=== PATIENT | male | born 1960 | race Caucasian/White ===

== ENCOUNTER 2020-07-15 11:03 | Emergency (ER) | payer OTHER, SELFPAY ==
[2020-07-15 11:11] VITALS: BP 132/81; BP 149/55; PULSE 75; PULSE 76; RESP 16; TEMP 36.8; O2SAT 97; O2SAT 98; BMI 37.5
--- NOTE | 2020-07-15 11:23 | ECG_ITS ---
Test Reason : DIZZINESS Blood Pressure : / mmHG Vent. Rate : 066 BPM Atrial Rate : 066 BPM P-R Int : 196 ms QRS Dur : 080 ms QT Int : 380 ms P-R-T Axes : 004 -07 034 degrees QTc Int : 398 ms Normal sinus rhythm Low voltage QRS Otherwise normal ECG When compared with ECG of 30-MAY-2018 15:20, Vent. rate has decreased BY 32 BPM Referred By: Sarah Davila Electronically Signed By:JOVITA AMEZQUITA MD
--- NOTE | 2020-07-15 11:23 | XR_ITS ---
EXAMINATION: XR CHEST CLINICAL INFORMATION: Numbness, tingling COMPARISON: Chest radiographs 05/30/2018, 01/10/2011 TECHNIQUE: 2 frontal views and a lateral projection of the chest are obtained. FINDINGS: The lungs are clear. There is no airspace consolidation or effusion. The heart is normal in size and the hilar contours are normal. The mediastinal contours and bony structures are stable. XR/XR chest 2V IMPRESSION: Unremarkable examination.
--- NOTE | 2020-07-15 11:24 | CT_ITS ---
EXAMINATION: CT HEAD WITHOUT CONTRAST CLINICAL INFORMATION: Tingling COMPARISON: Previous head CT February 2011 TECHNIQUE: Contiguous axial imaging was performed from the skull base to vertex without intravenous administration of contrast. This CT examination was performed using dose optimization techniques as appropriate, variously including the following: *Automated exposure control *Adjustment of mA and/or kV according to patient size (this includes techniques or standardized protocols for targeted exams where dose is matched to indication/reason for exam; i.e. extremities or head) *Use of iterative reconstruction technique DLP: 908 mGy-cm FINDINGS: There is no evidence of acute intracranial hemorrhage or territorial infarction. No abnormal mass effect or midline shift is seen. Jose to white matter differentiation is well preserved. No extra-axial fluid collections are identified. The ventricles are normal in size. There is no abnormal attenuation within the brain parenchyma. The osseous structures and soft tissues are normal. The mastoid air cells and visualized portions of the paranasal sinuses are well aerated. CT/CT head/brain wo con IMPRESSION: Unremarkable exam.
--- NOTE | 2020-07-15 11:33 | PC.NURSE ---
PT AMBULATING TO CT SCAN W SLOW, STEADY GAIT.
--- NOTE | 2020-07-15 11:36 | ED_ITS ---
HPI - General Adult General Chief complaint: Neck Pain/Injury Stated complaint: NUMB/TINGLING LOW EXT,KNOT R SHOULDER 4 DAYS AGO Time Seen by Provider: 07/15/20 11:23 Source: patient and EMS Mode of arrival: EMS Limitations: no limitations History of Present Illness HPI narrative: 60-year-old male with a past medical history of high cholesterol, hypertension, insulin-dependent diabetes, chronic neck pain, perip heral neuropathy on gabapentin here with complaints of numbness and tingling. The patient tells me for the last 4 days he has had increasing tingling his lower extremities and occasionally in his upper extremities as well. It is intermittent and it is improved with taking his home gabapentin 600 mg. he tells me he has also been feeling off balance for the last 4 days. Denies any weakness, slurred speech, headache, dizziness. The patient tells me today he was changing a shower curtain and had his arms up over his head felt some tingling in his hands and hands were cramping and he felt like he might fall. Describes as tingling over bilateral top of feet and in tips of fingers. Blood sugars have been running high 200's which is higher then normal. No chest pain, shortness of breath, cough. Fevers or chills. Also c/o of some discomfort to his right neck. No injury or trauma. Does tell me he has intermittent pain for a long time. Onset (ago): day(s) Radiation: non-radiation Severity: mild Relieving factors: none Exacerbating factors: none Associated symptoms: denies other symptoms Related Data Previous Rx's Medication Instructions Recorded cyclobenzaprine 10 mg PO TID PRN #10 tab 07/15/20 Allergies Allergy/AdvReac Type Severity Reaction Status Date / Time No Known Allergies Allergy Verified 07/15/20 11:10 [No Known Allergies*] Review of Systems Review of Systems: Yes all other systems are reviewed and are negative Constitutional: Constitutional: Reports no additional constitutional complaints, Denies body ache(s), Denies chills, Denies fever(s), Denies headache(s) and Denies weakness Eyes: Eyes: Reports no additional eye complaints and Denies change in vision ENT: Reports system reviewed and no additional complaints, except as documented, Denies dizziness, Denies headache(s), Denies nasal congestion, Denies nasal discharge and Denies neck pain Cardiovascular: Cardiovascular: Reports no additional cardiovascular complaints, Denies chest pain, Denies leg edema and Denies dyspnea Respiratory: Respiratory: Reports no additional respiratory complaints, Denies cough and Denies dyspnea Gastrointestinal: Gastrointestinal: Reports no additional gastrointestinal complaints, Denies abdominal pain, Denies diarrhea, Denies nausea and Denies vomiting Genitourinary: Genitourinary: Denies urinary incontinence Musculoskeletal: Musculoskeletal: Reports no additional musculoskeletal complaints, Denies back pain, Denies arthralgias, Denies joint swelling, Denies neck pain, Denies numbness and Reports tingling Integumentary/Breasts: Skin/Breast: Reports system reviewed and no additional complaints, except as docu and Denies rash Neurologic: Reports system reviewed and no additional complaints, except as documented, Denies Abnormal speech present, Denies dizziness, Denies headache(s), Denies numbness, Reports tingling and Denies weakness Comments: unsteady gait PMFSH Past Medical History Attestation statement: The following information was validated with the patient. Source: old records reviewed and nursing notes reviewed Medical History Hyperlipidemia Hypertension IDDM (insulin dependent diabetes mellitus) Neck pain Peripheral neuropathy Psychiatric diagnosis Social History Social History Alcohol intake: never Smoking Status: Never smoker Use of substances other than those prescribed or required for medical reasons: No Advance Directives: No Advance Directives Information Provided: No Physical Exam Vital Signs: Vital Signs: Last Vital Signs Temp 98.2 F 07/15/20 11:11 Pulse 64 07/15/20 14:06 Resp 16 07/15/20 14:06 BP 124/74 07/15/20 14:06 Pulse Ox 96 07/15/20 14:06 Body Mass Index 37.5 Const: General: cooperative, healthy appearing, comfortable and no acute distress Orientation/consciousness: patient oriented x3 Limitations: no limitations HENMT: Head: Yes normal to inspection Ears: hearing grossly normal bilaterally General nose exam: Normal external nose present Face and sinus: Yes normal facial exam Mouth: Normal oral and palatal mucosa present Throat: Yes posterior oropharynx normal Eyes: General: appearance normal, both eyes and all related structures Pupils: Equal, round and reactive pupils present Neck: Other: to the right trapezius there is a palpable muscle spasm. There is moderate tenderness. There is no midline cervical tenderness step-offs or deformities. There is no pain over the lateral neck. Full range of motion Neck: Yes normal visual inspection Chest: Chest palpation & inspection: normal inspection of the chest Resp: Effort & Inspection: normal respiratory effort Auscultation: clear to auscultation bilaterally Cardio: Rate: regular rate Rhythm: regular rhythm Peripheral pulses: Peripheral pulses 2+ throughout GI: Inspection: Yes normal to inspection Palpation (GI): Soft to palpation and nontender Auscultation: normal bowel sounds Back/Spine/Pelvis: Thoracic/Lumbar Spine: thoracic and lumbar spine normal to inspection Skin: General skin exam: no rashes or lesions noted Neuro: General: patient oriented x3, Normal light touch and pain sensation, no focal motor deficits and normal sensation to monofilament Cranial nerves: Yes Equal, round and reactive pupils present Cognition (Neuro): normal cognition Speech: No Abnormal speech present Gait exam (Neuro): Normal gait present Motor exam (neuro): 5/5 motor strength present throughout Sensory Exam: Normal double simultaneous stimulation for sensation Deep tendon reflexes (DTR's): Right patellar reflex intensity grade: 2+, Left patellar reflex intensity grade: 2+, Right ankle reflex intensity grade: 2+ and Left ankle reflex intensity grade: 2+ Coordination: [id number] test normal, [id number] test normal and tandem gait normal Extrem: General: Yes normal to inspection NIH Stroke Scale Internal: Initial- Upon Arrival Level of Consciousness: Alert Level of Consciousness Questions: Answers both questions correctly Level of Consciousness Commands: Performs both tasks correctly Best Gaze: Normal Visual: No visual loss Facial Palsy: Normal Motor Arm (Right): No drift Motor Arm (Left): No drift Motor Leg (Right): No drift Motor Leg (Left): No drift Limb Ataxia: Absent Sensory: Normal Best Language: No aphasia Dysarthia: Normal Extinction and Inattention: No abnormality Score: 0 Course Course Course Narrative: 60-year-old male here with complaints of some tingling in in the top of his feet and in his fingertips the last 4 days. Has had some component of neuropathy in the past secondary to his diabetes and takes 600 mg of gabapentin nightly. Tells me this does help his pain but he feels like it is no longer helping. He is also complaining of feeling unsteady on his feet and is unsure if this is related to his tingling that he feels in his seat. The patient denies any weakness, slurred speech, headache, dizziness. His neurological exam is intact. He is complaining of some right-sided trapezius tenderness and has a palpable muscle spasm on exam and is likely more musculoskeletal. No focal neurological deficit. Stable vital signs. Will check labs, EKG, imaging of head and reassess. 1357- labs show a mildly low magnesium otherwise unremarkable. Patient does have some mild hyperglycemia with no evidence of DKA. His imaging is all unremarkable. His symptoms are likely related progressive neuropathy secondary to his underlying uncontrolled diabetes. Also some MS pain in his right trapezius. He is on gabapentin but only takes nightly. We discussed him following up with his primary care doctor and they may change or adjust his dose of gabapentin. Discussed some heat, OTC meds for his right trapezius discomfort and some p.r.n. muscle relaxants. Reviewed worrisome signs and symptoms and when to return to the emergency department. Comfortable discharge home. Medical Decision Making MDM Narrative Medical decision making narrative: Electrolyte abnormality, anemia, hyperglycemia CVA versus lesion, orthostatic hypotension, acs Magnesium mildly low. replaced IV. All other electrolytes unremarkable Peyton likely abnormality. CBC unremarkable selectively anemia as cause. patient is mildly hyperglycemic which may be contributing to his neuropathy. Less likely CVA or lesion with unremarkable CT and normal neurological exam. Less likely orthostatic hypotension with negative orthostatics. Less likely ACS with negative troponin and unremarkable EKG. Less likely GB with atypical presentation (only feet/tips of fingers, not ascending), normal neurological exam and reflexes, no recent illness. Lab Data Result diagrams: 07/15/20 11:49 07/15/20 11:49 Labs: Lab Results 07/15/20 07/15/20 07/15/20 Range/Units 11:49 11:49 11:49 WBC 6.9 (4.8-10.8) X10*3/uL RBC 4.19 L (4.60-5.80) X10*6/uL Hgb 14.4 (14.0-18.0) g/dl Hct 39.3 L (42-52) % MCV 93.8 (80-98) fL MCH 34.4 H (27.0-33.0) pg MCHC 36.6 H (31.0-36.0) g/dl RDW 11.3 (11.0-16.0) % Plt Count 171 (160-400) X10*3/uL MPV 10.8 (9.4-12.4) fL Immature Gran % (Auto) 0.3 (0.0-0.4) % Neut % (Auto) 53.0 (45-73) % Lymph % (Auto) 34.6 (20-40) % [place] % (Auto) 9.5 (2-11) % Eos % (Auto) 1.9 (0-4) % Baso % (Auto) 0.7 (0-2) % Lymph # (Auto) 2.4 (1.2-4.9) X10*3/uL [place] # (Auto) 0.7 (0.1-1.2) X10*3/uL Eos # (Auto) 0.1 (0.0-0.4) X10*3/uL Baso # (Auto) 0.1 (0.0-0.2) X10*3/uL Abs Immat Gran (auto) 0.02 (0.00-0.03) X10*3/uL Absolute Neuts (auto) 3.7 (2.0-8.3) X10*3/uL Absolute Nucleated RBC 0.000 (0.0-0.012) X10*3/uL Nucleated RBC % (auto) 0.0 (0.0-0.2) /100WBC PT 12.4 (10.8-13.0) SEC INR 1.0 (0.9-1.1) Sodium 136 (135-145) mmol/L Potassium 5.2 H (3.3-5.1) mmol/l Chloride 102 (96-108) mmol/L Carbon Dioxide 25 (22-29) mmol/L Anion Gap 14 (12-20) BUN 22 H (9-16) mg/dL Creatinine 1.26 (0.5-1.4) mg/dL Estim Creat Clear Calc 89.2 Estimated GFR 58 Random Glucose 226 H (60-115) mg/dL Calcium 9.2 (8.4-10.2) mg/dL Magnesium 1.5 L (1.6-2.6) mg/dL Total Bilirubin 0.7 (0.0-1.0) mg/dL Direct Bilirubin 0.4 (0.0-0.5) mg/dL AST 24 (5-37) U/L ALT 37 (0-40) U/L Alkaline Phosphatase 93 (39-117) U/L Troponin I High Sens (<3.5-35.0) ng/L Total Protein 7.0 (6.5-8.0) g/dL Albumin 4.2 (3.5-5.0) g/dL 07/15/20 Range/Units 11:49 WBC (4.8-10.8) X10*3/uL RBC (4.60-5.80) X10*6/uL Hgb (14.0-18.0) g/dl Hct (42-52) % MCV (80-98) fL MCH (27.0-33.0) pg MCHC (31.0-36.0) g/dl RDW (11.0-16.0) % Plt Count (160-400) X10*3/uL MPV (9.4-12.4) fL Immature Gran % (Auto) (0.0-0.4) % Neut % (Auto) (45-73) % Lymph % (Auto) (20-40) % [place] % (Auto) (2-11) % Eos % (Auto) (0-4) % Baso % (Auto) (0-2) % Lymph # (Auto) (1.2-4.9) X10*3/uL [place] # (Auto) (0.1-1.2) X10*3/uL Eos # (Auto) (0.0-0.4) X10*3/uL Baso # (Auto) (0.0-0.2) X10*3/uL Abs Immat Gran (auto) (0.00-0.03) X10*3/uL Absolute Neuts (auto) (2.0-8.3) X10*3/uL Absolute Nucleated RBC (0.0-0.012) X10*3/uL Nucleated RBC % (auto) (0.0-0.2) /100WBC PT (10.8-13.0) SEC INR (0.9-1.1) Sodium (135-145) mmol/L Potassium (3.3-5.1) mmol/l Chloride (96-108) mmol/L Carbon Dioxide (22-29) mmol/L Anion Gap (12-20) BUN (9-16) mg/dL Creatinine (0.5-1.4) mg/dL Estim Creat Clear Calc Estimated GFR Random Glucose (60-115) mg/dL Calcium (8.4-10.2) mg/dL Magnesium (1.6-2.6) mg/dL Total Bilirubin (0.0-1.0) mg/dL Direct Bilirubin (0.0-0.5) mg/dL AST (5-37) U/L ALT (0-40) U/L Alkaline Phosphatase (39-117) U/L Troponin I High Sens < 3.5 (<3.5-35.0) ng/L Total Protein (6.5-8.0) g/dL Albumin (3.5-5.0) g/dL Imaging Data CT scan - head: Attestation: I personally reviewed and interpreted this imaging study as follows: Radiologist's impression: EXAMINATION: CT HEAD WITHOUT CONTRAST CLINICAL INFORMATION: Tingling COMPARISON: Previous head CT February 2011 TECHNIQUE: Contiguous axial imaging was performed from the skull base to vertex without intravenous administration of contrast. This CT examination was performed using dose optimization techniques as appropriate, variously including the following: *Automated exposure control *Adjustment of mA and/or kV according to patient size (this includes techniques or standardized protocols for targeted exams where dose is matched to indication/reason for exam; i.e. extremities or head) *Use of iterative reconstruction technique DLP: 908 mGy-cm FINDINGS: There is no evidence of acute intracranial hemorrhage or territorial infarction. No abnormal mass effect or midline shift is seen. Jose to white matter differentiation is well preserved. No extra-axial fluid collections are identified. The ventricles are normal in size. There is no abnormal attenuation within the brain parenchyma. The osseous structures and soft tissues are normal. The mastoid air cells and visualized portions of the paranasal sinuses are well aerated. CT/CT head/brain wo con IMPRESSION: Unremarkable exam. Chest x-ray: Attestation: I personally reviewed and interpreted this imaging study as follows: Radiologist's impression: EXAMINATION: XR CHEST CLINICAL INFORMATION: Numbness, tingling COMPARISON: Chest radiographs 05/30/2018, 01/10/2011 TECHNIQUE: 2 frontal views and a lateral projection of the chest are obtained. FINDINGS: The lungs are clear. There is no airspace consolidation or effusion. The heart is normal in size and the hilar contours are normal. The mediastinal contours and bony structures are stable. XR/XR chest 2V IMPRESSION: Unremarkable examination. ECG Data Attestation: I personally reviewed and interpreted this ECG as follows: Interpretation: NSR rate 66, normal pr, normal qrs, normal QT, no ST changes Discharge Plan Discharge Clinical Impression: Muscle spasm, Neuropathy, Chronic hyperglycemia, Hypomagnesemia Patient Disposition: Home, Self-Care Instructions: Peripheral Neuropathy (ED), Hypomagnesemia (ED), Muscle Spasm (ED), Diabetic Hyperglycemia (ED) Additional Instructions: Call your PCP tomorrow. They may need to adjust your gabapentin dose apply heat to the right neck Gentle massage Take the Flexeril as needed Prescriptions: New cyclobenzaprine 10 mg tablet 10 mg PO TID PRN (Reason: muscle spasm) Qty: 10 RF: 0 Referrals: Virginie Liao MD [Primary Care Provider] - 2 days Interventions: ED Discharge Assessment Last Done: 07/15/20 14:20 Discharge Date/Time: 07/15/20 14:21
[2020-07-15 11:55] LABS: MANUAL DIFF FLAG NO
[2020-07-15 11:56] LABS: Basophils Absolute Auto 0.1 X10*3/uL (0.0-0.2); Basophils Percent Auto 0.7 % (0-2); Eosinophils Absolute Auto 0.1 X10*3/uL (0.0-0.4); Eosinophils Percent Auto 1.9 % (0-4); Hematocrit 39.3 % (42-52); Hemoglobin 14.4 g/dl (14.0-18.0); Imm Gran Abs Auto 0.02 X10*3/uL (0.00-0.03); Imm Gran Pct Auto 0.3 % (0.0-0.4); Lymphocytes Absolute Auto 2.4 X10*3/uL (1.2-4.9); Lymphocytes Percent Auto 34.6 % (20-40); Mean Corpuscular HGB Conc 36.6 g/dl (31.0-36.0); Mean Corpuscular Hemoglobin 34.4 pg (27.0-33.0); Mean Corpuscular Volume 93.8 fL (80-98); Mean Platelet Volume 10.8 fL (9.4-12.4); Monocytes Absolute Auto 0.7 X10*3/uL (0.1-1.2); Monocytes Percent Auto 9.5 % (2-11); Neutrophils Absolute Auto 3.7 X10*3/uL (2.0-8.3); Platelet Count 171 X10*3/uL (160-400); Red Blood Count 4.19 X10*6/uL (4.60-5.80); Red Cell Distribution Width 11.3 % (11.0-16.0); White Blood Count 6.9 X10*3/uL (4.8-10.8)
[2020-07-15 12:00] LABS: Prothrombin Time 12.4 SEC (10.8-13.0)
[2020-07-15 12:03] VITALS: BP 137/70; PULSE 68
[2020-07-15 12:05] VITALS: BP 119/71; PULSE 79
[2020-07-15 12:06] VITALS: BP 122/64; PULSE 83
--- NOTE | 2020-07-15 12:14 | PC.NURSE ---
taken to xray via stretcher
[2020-07-15 12:19] LABS: Alanine Aminotransferase 37 U/L (0-40); Albumin Level 4.2 g/dL (3.5-5.0); Alkaline Phosphatase 93 U/L (39-117); Anion Gap 14 (12-20); Aspartate Amino Transferase 24 U/L (5-37); Bilirubin Direct 0.4 mg/dL (0.0-0.5); Bilirubin Total 0.7 mg/dL (0.0-1.0); Blood Urea Nitrogen 22 mg/dL (9-16); Calcium 9.2 mg/dL (8.4-10.2); Carbon Dioxide 25 mmol/L (22-29); Chloride 102 mmol/L (96-108); Creatinine Clr Calc Pharmacy 89.2; Estimated Glomerular Filt Rate 58; Glucose Random 226 mg/dL (60-115); Magnesium 1.5 mg/dL (1.6-2.6); Potassium 5.2 mmol/l (3.3-5.1); Sodium 136 mmol/L (135-145)
[2020-07-15 12:25] LABS: Troponin-I High Sensitivity < 3.5 ng/L (<3.5-35.0)
[2020-07-15] MEDS: Magnesium Sulfate/D5W 1 GM/100 ML PIGGYBACK IV (13:31)
--- NOTE | 2020-07-15 13:42 | PC.NURSE ---
pt requested something to eat states that he has not eaten since this am. pt given diet matheus kalpesh and jacqueline crackers. pierce (anders) at bedside, pt aware of plan of care for d/c home.
[2020-07-15 14:03] VITALS: BP 127/74; PULSE 64
[2020-07-15] MEDS: Aspirin 81 MG TAB.CHEW PO (14:03)
[2020-07-15] MEDS: Cholecalciferol (Vitamin D3) 10 MCG TABLET PO (14:03)
[2020-07-15] MEDS: metFORMIN HCl 1,000 MG TABLET 1000 MG PO (14:03)
[2020-07-15] MEDS: lisinopriL 5 MG TABLET PO (14:03)
[2020-07-15 14:06] VITALS: BP 124/74; PULSE 64; RESP 16; O2SAT 96
== END 2020-07-15 14:21 | disposition home or self-care (01) ==
PROVIDERS: Nurse Practitioner Family; Emergency Provider Emergency Medicine Emergency Medical Services; PCP Internal Medicine
DX: E11.40 Type 2 diabetes mellitus with diabetic neuropathy, unspecified (principal); E11.65 Type 2 diabetes mellitus with hyperglycemia; E83.42 Hypomagnesemia; M62.838 Other muscle spasm; I10 Essential (primary) hypertension; Z79.899 Other long term (current) drug therapy
CPT/HCPCS: 36415; 70450; 71046; 80048; 80076; 83735; 84484; 85025; 85610; 93005; 96365; 99284; J3475

== ENCOUNTER 2020-09-03 15:28 | Emergency (ER) | payer OTHER, SELFPAY | END 2020-09-03 17:05 | disposition left against medical advice (07) | PROVIDERS: Emergency Provider Internal Medicine; PCP Internal Medicine | DX: L08.9 Local infection of the skin and subcutaneous tissue, unspecified (principal) | CPT/HCPCS: 99281 ==

== ENCOUNTER 2020-09-04 11:22 | Inpatient (IN) | payer OTHER, SELFPAY ==
[2020-09-04 11:27] VITALS: BP 143/74; PULSE 91; RESP 18; TEMP 37; O2SAT 97; BMI 37.2
--- NOTE | 2020-09-04 11:43 | XR_ITS ---
EXAMINATION: XR FOOT, RIGHT CLINICAL INFORMATION: Right great toe infection. COMPARISON: July 28, 2018 and May 30, 2018 TECHNIQUE: AP, lateral, and oblique views of the right foot. FINDINGS: There is no evidence of acute fracture or dislocation of the right foot. Soft tissue swelling is seen about the first toe without gas within the soft tissues. No adjacent erosive changes are seen within the bone. Joint spaces are maintained. Prominent vascular calcifications are seen. Plantar calcaneal spur is present as well as some calcification of the plantar aponeurosis. There appears to be soft tissue ulceration about the medial aspect of the first proximal phalanx. XR/XR foot RT min 3V IMPRESSION: Soft tissue swelling without definite erosive change or gas within the soft tissues.
--- NOTE | 2020-09-04 14:11 | ECG_ITS ---
Test Reason : SOB Blood Pressure : / mmHG Vent. Rate : 097 BPM Atrial Rate : 098 BPM P-R Int : 206 ms QRS Dur : 078 ms QT Int : 326 ms P-R-T Axes : 054 -13 038 degrees QTc Int : 414 ms Poor data quality in lead V1 Normal sinus rhythm Otherwise normal ECG When compared with ECG of 15-JUL-2020 12:02, No significant changes seen Referred By: Jeri Cervantes Electronically Signed By:BAILEY BRENNAN MD
--- NOTE | 2020-09-04 14:11 | ED.SKABFB ---
HPI - Skin/Abscess/Foreign Bdy General Chief complaint: Skin/Abscess/Foreign Body <GABINO Baird - Last Filed: 09/04/20 17:40> Stated complaint: infection? rt toe <GABINO Baird - Last Filed: 09/04/20 17:40> Time Seen by Provider: 09/04/20 11:42 <GABINO Baird - Last Filed: 09/04/20 17:40> Source: patient <GABINO Baird - Last Filed: 09/04/20 17:40> Mode of arrival: ambulatory <GABINO Baird - Last Filed: 09/04/20 17:40> History of Present Illness HPI narrative: 60-year-old male with a past medical history of HLD, HTN, diabetes, peripheral neuropathy, sleep apnea, bipolar, presenting to the ED complaining of worsening right great toe infection x2 days with mild odorous drainage. Also reports dry cough x6 days, subjective fever, chills, headache, & diarrhea. Denies chest pain, shortness of breath, abdominal pain, nausea/vomiting, recent travel, sick contacts <GABINO Baird - Last Filed: 09/04/20 17:40> MD complaint: abscess/boil and discoloration <GABINO Baird Last Filed: 09/04/20 17:40> Related Data Home medications: Home Medications Medication Instructions Recorded Confirmed aspirin 81 mg PO DAILY 07/17/20 09/04/20 atorvastatin 40 mg PO BEDTIME 07/17/20 09/04/20 gabapentin 600 mg PO BEDTIME 07/17/20 09/04/20 insulin degludec [Tresiba 80 unit SUBCUT QAM 07/17/20 09/04/20 FlexTouch U-100] ipratropium-albuterol [Combivent 2 puff INHALATION Q6H PRN 07/17/20 09/04/20 Respimat] liraglutide [Victoza 3-Chet] 1.8 mg SUBCUT DAILY 07/17/20 09/04/20 lisinopril 5 mg PO DAILY 07/17/20 09/04/20 metformin 1,000 mg PO BID 07/17/20 09/04/20 bisacodyl 5 mg PO BID 09/04/20 09/04/20 cholecalciferol (vitamin D3) 25 mcg PO DAILY 09/04/20 09/04/20 fluoxetine 10 mg PO DAILY 09/04/20 09/04/20 insulin degludec [Tresiba 65 unit SUBCUT BEDTIME 09/04/20 09/04/20 FlexTouch U-100] <GABINO Baird - Last Filed: 09/04/20 17:40> Allergies/Adverse reactions: Allergies Allergy/AdvReac Type Severity Reaction Status Date / Time No Known Allergies Allergy Verified 07/15/20 11:10 [No Known Allergies*] <GABINO Baird - Last Filed: 09/04/20 17:40> Review of Systems Review of Systems: Constitutional: No Weight loss, +Subj Fever, +Chills, No Night Sweats, No Fatigue, No Malaise Cardiovascular: No Chest Pain, No SOB, No Dyspnea on Exertion, No Orthopnea, No Edema Respiratory: + Cough, No Sputum, No Wheezing, No Smoke Exposure, No Dyspnea Gastrointestinal: No Nausea, No Vomiting, + Diarrhea, No Constipation, No Abdominal pain Genitourinary: No Dysuria, No Urinary Frequency, No Hematuria Musculoskeletal: No joint pain, No Myalgias, No Joint Swelling Skin: +skin lesion Neuro: No Weakness, No Numbness, +Chronic Paresthesias, + Headache <GABINO Baird - Last Filed: 09/04/20 17:40> Yes all other systems are reviewed and are negative <GABINO Baird - Last Filed: 09/04/20 17:40> [facility] Past Medical History Attestation statement: The following information was validated with the patient. <GABINO Baird - Last Filed: 09/04/20 17:40> Medical History: Medical History Back pain Hyperlipidemia Hypertension IDDM (insulin dependent diabetes mellitus) Neck pain Peripheral neuropathy Psychiatric diagnosis Sleep apnea <GABINO Baird - Last Filed: 09/04/20 17:40> Surgical History: Surgical History H/O colonoscopy Hx of angioplasty Hx of appendectomy Hx of foot surgery Hx of tonsillectomy Hx of umbilical hernia repair <GABINO Baird - Last Filed: 09/04/20 17:40> Social History Social History: Social History Household Members: None Housing: Apartment Do you presently have visiting nurse or other home services: Yes (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 If so, by whom?: No Do you feel safe in your current relationship?: No Current Relationship Is there a partner from a previous relationship who is making you feel unsafe now?: No Are you made to feel afraid or neglected: No Advance Directives: No Advance Directives Information Provided: Yes Do you have thoughts of harming others: None Do you have a plan to hurt others: No Plan Recently lost weight without trying: Yes service: Yes Current occupational status: unemployed <GABINO Baird - Last Filed: 09/04/20 17:40> Physical Exam Vital Signs: Vital Signs: Last Vital Signs Temp 97.2 F 09/12/20 23:47 Pulse 59 09/12/20 23:47 Resp 18 09/12/20 23:47 BP 150/69 H 09/12/20 23:47 Pulse Ox 91 L 09/12/20 23:47 Body Mass Index 37.2 <GABINO Baird - Last Filed: 09/04/20 17:40> Vital Signs: Last Vital Signs Temp 97.2 F 09/12/20 23:47 Pulse 59 09/12/20 23:47 Resp 18 09/12/20 23:47 BP 150/69 H 09/12/20 23:47 Pulse Ox 91 L 09/12/20 23:47 Body Mass Index 37.2 <Lon Espinosa MD - Last Filed: 09/13/20 00:05> Const: General: cooperative and comfortable <GABINO Baird - Last Filed: 09/04/20 17:40> Orientation/consciousness: patient oriented x3 <GABINO Baird - Last Filed: 09/04/20 17:40> Limitations: no limitations <Jeri Cervantes DC - Last Filed: 09/04/20 17:40> HENMT: Head: Yes normal to inspection <Jeri Cervantes DC - Last Filed: 09/04/20 17:40> Ears: hearing grossly normal bilaterally <Jeri Cervantes DC - Last Filed: 09/04/20 17:40> General nose exam: Normal external nose present <Jeri Cervantes DC - Last Filed: 09/04/20 17:40> Face and sinus: Yes normal facial exam <Jeri Cervantes DC - Last Filed: 09/04/20 17:40> Eyes: General: appearance normal, both eyes and all related structures <Jeri Cervantes DC - Last Filed: 09/04/20 17:40> EOM: EOMs intact bilaterally <Jeri Cervantes DC - Last Filed: 09/04/20 17:40> Neck: Neck: Yes normal visual inspection <Jeri Cervantes DC - Last Filed: 09/04/20 17:40> Resp: Effort & Inspection: normal respiratory effort <Jeri Cervantes DC - Last Filed: 09/04/20 17:40> Auscultation: clear to auscultation bilaterally, no rales, no rhonchi and no wheezes <Jeri Cervantes DC - Last Filed: 09/04/20 17:40> Cardio: Rate: regular rate <Jeri Cervantes DC - Last Filed: 09/04/20 17:40> Heart sounds: S1 normal heart sound present and S2 normal heart sound present <Jeri Cervantes DC - Last Filed: 09/04/20 17:40> GI: Inspection: Yes normal to inspection <Jeri Cervantes DC - Last Filed: 09/04/20 17:40> Palpation (GI): Soft to palpation, nontender, no guarding and not rigid <Jeri Cervantes DC - Last Filed: 09/04/20 17:40> Skin: Other: See pictures above. Neurovascularly intact. Warm to touch. No active or expressible drainage at this time <Jeri Cervantes PA - Last Filed: 09/04/20 17:40> Neuro: General: patient oriented x3 <GABINO Baird - Last Filed: 09/04/20 17:40> Gait exam (Neuro): Normal gait present <GABINO Baird - Last Filed: 09/04/20 17:40> Extrem: Other: No LE edema <GABINO Baird - Last Filed: 09/04/20 17:40> Course Course Course Narrative: Mild leukocytosis of 12.1 with left shift, H&H at baseline, lactic 1.2, bilirubins mildly elevated, CRP elevated Foot x-ray with soft tissue swelling without definite erosive changes or gas in the soft tissues. CXR unremarkable. Surgery paged > 1600- Spoke to surgery Dr. Blackburn, will evaluate patient Patient is one of Dr. Figueroa's, spoke to Dr. Figueroa he will evaluate upon admission COVID-19/influenza/RSV negative <GABINO Baird - Last Filed: 09/04/20 17:40> Reevaluation(s) Reevaluation #1: I have reviewed the chart <Lon Espinosa MD - Last Filed: 09/13/20 00:05> MDM - Skin/Abscess/Foreign Bdy MDM Narrative Medical decision making narrative: 60-year-old male with a past medical history of HLD, HTN, diabetes, peripheral neuropathy, sleep apnea, bipolar, presenting to the ED complaining of worsening right great toe infection x2 days with mild odorous drainage. Also reports dry cough x6 days, subjective fever, chills, headache, & diarrhea. On exam VSS, NAD, lungs CTA, see pictures below for foot. Concern for COVID-19/viral syndrome vs necrosis/cellulitis. Lower concern for bacterial pneumonia Plan: EKG, labs, foot x-ray, CXR, lactic/blood cultures, IV antibiotics, anticipate admission <GABINO Baird - Last Filed: 09/04/20 17:40> Medical Records Attestation: I reviewed the patient's medical records. <GABINO Baird - Last Filed: 09/04/20 17:40> Lab Data Attestation: I reviewed the patient's lab results. <GABINO Baird Last Filed: 09/04/20 17:40> Result diagrams: : 09/12/20 05:55 09/12/20 05:55 <GABINO Baird - Last Filed: 09/04/20 17:40> Labs: Lab Results 09/04/20 09/04/20 09/04/20 Range/Units 14:44 14:44 14:45 WBC (4.8-10.8) X10*3/uL RBC (4.60-5.80) X10*6/uL Hgb (14.0-18.0) g/dl Hct (42-52) % MCV (80-98) fL MCH (27.0-33.0) pg MCHC (31.0-36.0) g/dl RDW (11.0-16.0) % Plt Count (160-400) X10*3/uL MPV (9.4-12.4) fL Immature Gran % (Auto) (0.0-0.4) % Neut % (Auto) (45-73) % Lymph % (Auto) (20-40) % [place] % (Auto) (2-11) % Eos % (Auto) (0-4) % Baso % (Auto) (0-2) % Lymph # (Auto) (1.2-4.9) X10*3/uL [place] # (Auto) (0.1-1.2) X10*3/uL Eos # (Auto) (0.0-0.4) X10*3/uL Baso # (Auto) (0.0-0.2) X10*3/uL Abs Immat Gran (auto) (0.00-0.03) X10*3/uL Absolute Neuts (auto) (2.0-8.3) X10*3/uL Absolute Nucleated RBC (0.0-0.012) X10*3/uL Nucleated RBC % (auto) (0.0-0.2) /100WBC Smear Tech's Comments ESR (0-15) MM/HR PT (10.8-13.0) SEC INR (0.9-1.1) APTT (24.1-38.0) SEC Sodium (135-145) mmol/L Potassium (3.3-5.1) mmol/l Chloride (96-108) mmol/L Carbon Dioxide (22-29) mmol/L Anion Gap (12-20) BUN (9-16) mg/dL Creatinine (0.5-1.4) mg/dL Estim Creat Clear Calc Estimated GFR POC Glucose (60-115) mg/dL Random Glucose (60-115) mg/dL Lactic Acid 1.2 (0.5-2.0) mmol/L Calcium (8.4-10.2) mg/dL Magnesium (1.6-2.6) mg/dL Ferritin (20-250) ng/mL Total Bilirubin (0.0-1.0) mg/dL Direct Bilirubin (0.0-0.5) mg/dL AST (5-37) U/L ALT (0-40) U/L Alkaline Phosphatase (39-117) U/L Lactate Dehydrogenase (118-273) U/L C-Reactive Protein (< or = 0.50) mg/dL B-Natriuretic Peptide 59 (<100) pg/mL Total Protein (6.5-8.0) g/dL Albumin (3.5-5.0) g/dL Procalcitonin 0.18 ng/mL Urine Color Urine Appearance Urine pH (5.0-8.0) Ur Specific [place] (1.005-1.025) Urine Protein (NEG-TRACE) MG/DL Urine Glucose (UA) (NEG) MG/DL Urine Ketones (NEG) MG/DL Urine Blood (NEG) Urine Nitrite (NEG) Ur Leukocyte Esterase (NEG) Coronavirus (PCR) (Negative) Influenza Type A (PCR) (Negative) Influenza Type B (PCR) (Negative) RSV RNA Qual (PCR) (Negative) 09/04/20 09/04/20 09/04/20 Range/Units 14:45 14:45 14:46 WBC 12.1 H (4.8-10.8) X10*3/uL RBC 3.83 L (4.60-5.80) X10*6/uL Hgb 12.8 L (14.0-18.0) g/dl Hct 35.8 L (42-52) % MCV 93.5 (80-98) fL MCH 33.4 H (27.0-33.0) pg MCHC 35.8 (31.0-36.0) g/dl RDW 11.1 (11.0-16.0) % Plt Count 214 D (160-400) X10*3/uL MPV 10.3 (9.4-12.4) fL Immature Gran % (Auto) 0.5 H (0.0-0.4) % Neut % (Auto) 79.4 H (45-73) % Lymph % (Auto) 6.9 L (20-40) % [place] % (Auto) 12.5 H (2-11) % Eos % (Auto) 0.4 (0-4) % Baso % (Auto) 0.3 (0-2) % Lymph # (Auto) 0.8 L (1.2-4.9) X10*3/uL [place] # (Auto) 1.5 H (0.1-1.2) X10*3/uL Eos # (Auto) 0.1 (0.0-0.4) X10*3/uL Baso # (Auto) 0.0 (0.0-0.2) X10*3/uL Abs Immat Gran (auto) 0.06 H (0.00-0.03) X10*3/uL Absolute Neuts (auto) 9.6 H (2.0-8.3) X10*3/uL Absolute Nucleated RBC 0.000 (0.0-0.012) X10*3/uL Nucleated RBC % (auto) 0.0 (0.0-0.2) /100WBC Smear Tech's Comments VERIFIED ESR (0-15) MM/HR PT 15.9 H D (10.8-13.0) SEC INR 1.3 H (0.9-1.1) APTT 37.3 (24.1-38.0) SEC Sodium (135-145) mmol/L Potassium (3.3-5.1) mmol/l Chloride (96-108) mmol/L Carbon Dioxide (22-29) mmol/L Anion Gap (12-20) BUN (9-16) mg/dL Creatinine (0.5-1.4) mg/dL Estim Creat Clear Calc Estimated GFR POC Glucose (60-115) mg/dL Random Glucose (60-115) mg/dL Lactic Acid (0.5-2.0) mmol/L Calcium (8.4-10.2) mg/dL Magnesium (1.6-2.6) mg/dL Ferritin 609 H (20-250) ng/mL Total Bilirubin (0.0-1.0) mg/dL Direct Bilirubin (0.0-0.5) mg/dL AST (5-37) U/L ALT (0-40) U/L Alkaline Phosphatase (39-117) U/L Lactate Dehydrogenase (118-273) U/L C-Reactive Protein (< or = 0.50) mg/dL B-Natriuretic Peptide (<100) pg/mL Total Protein (6.5-8.0) g/dL Albumin (3.5-5.0) g/dL Procalcitonin ng/mL Urine Color Urine Appearance Urine pH (5.0-8.0) Ur Specific [place] (1.005-1.025) Urine Protein (NEG-TRACE) MG/DL Urine Glucose (UA) (NEG) MG/DL Urine Ketones (NEG) MG/DL Urine Blood (NEG) Urine Nitrite (NEG) Ur Leukocyte Esterase (NEG) Coronavirus (PCR) (Negative) Influenza Type A (PCR) (Negative) Influenza Type B (PCR) (Negative) RSV RNA Qual (PCR) (Negative) 09/04/20 09/04/20 09/04/20 Range/Units 14:46 14:46 15:00 WBC (4.8-10.8) X10*3/uL RBC (4.60-5.80) X10*6/uL Hgb (14.0-18.0) g/dl Hct (42-52) % MCV (80-98) fL MCH (27.0-33.0) pg MCHC (31.0-36.0) g/dl RDW (11.0-16.0) % Plt Count (160-400) X10*3/uL MPV (9.4-12.4) fL Immature Gran % (Auto) (0.0-0.4) % Neut % (Auto) (45-73) % Lymph % (Auto) (20-40) % [place] % (Auto) (2-11) % Eos % (Auto) (0-4) % Baso % (Auto) (0-2) % Lymph # (Auto) (1.2-4.9) X10*3/uL [place] # (Auto) (0.1-1.2) X10*3/uL Eos # (Auto) (0.0-0.4) X10*3/uL Baso # (Auto) (0.0-0.2) X10*3/uL Abs Immat Gran (auto) (0.00-0.03) X10*3/uL Absolute Neuts (auto) (2.0-8.3) X10*3/uL Absolute Nucleated RBC (0.0-0.012) X10*3/uL Nucleated RBC % (auto) (0.0-0.2) /100WBC Smear Tech's Comments ESR 90 H (0-15) MM/HR PT (10.8-13.0) SEC INR (0.9-1.1) APTT (24.1-38.0) SEC Sodium 131 L (135-145) mmol/L Potassium 4.4 (3.3-5.1) mmol/l Chloride 98 (96-108) mmol/L Carbon Dioxide 22 (22-29) mmol/L Anion Gap 15 (12-20) BUN 27 H (9-16) mg/dL Creatinine 1.24 (0.5-1.4) mg/dL Estim Creat Clear Calc 90.1 Estimated GFR 59 POC Glucose (60-115) mg/dL Random Glucose 216 H (60-115) mg/dL Lactic Acid (0.5-2.0) mmol/L Calcium 8.3 L D (8.4-10.2) mg/dL Magnesium 1.5 L (1.6-2.6) mg/dL Ferritin (20-250) ng/mL Total Bilirubin 1.6 H (0.0-1.0) mg/dL Direct Bilirubin 0.9 H (0.0-0.5) mg/dL AST 36 D (5-37) U/L ALT 61 H (0-40) U/L Alkaline Phosphatase 134 H D (39-117) U/L Lactate Dehydrogenase 187 (118-273) U/L C-Reactive Protein 18.48 H (< or = 0.50) mg/dL B-Natriuretic Peptide (<100) pg/mL Total Protein 6.7 (6.5-8.0) g/dL Albumin 3.7 (3.5-5.0) g/dL Procalcitonin ng/mL Urine Color Urine Appearance Urine pH (5.0-8.0) Ur Specific [place] (1.005-1.025) Urine Protein (NEG-TRACE) MG/DL Urine Glucose (UA) (NEG) MG/DL Urine Ketones (NEG) MG/DL Urine Blood (NEG) Urine Nitrite (NEG) Ur Leukocyte Esterase (NEG) Coronavirus (PCR) NEGATIVE (Negative) Influenza Type A (PCR) NEGATIVE (Negative) Influenza Type B (PCR) NEGATIVE (Negative) RSV RNA Qual (PCR) NEGATIVE (Negative) 09/04/20 09/04/20 Range/Units 20:00 22:07 WBC (4.8-10.8) X10*3/uL RBC (4.60-5.80) X10*6/uL Hgb (14.0-18.0) g/dl Hct (42-52) % MCV (80-98) fL MCH (27.0-33.0) pg MCHC (31.0-36.0) g/dl RDW (11.0-16.0) % Plt Count (160-400) X10*3/uL MPV (9.4-12.4) fL Immature Gran % (Auto) (0.0-0.4) % Neut % (Auto) (45-73) % Lymph % (Auto) (20-40) % [place] % (Auto) (2-11) % Eos % (Auto) (0-4) % Baso % (Auto) (0-2) % Lymph # (Auto) (1.2-4.9) X10*3/uL [place] # (Auto) (0.1-1.2) X10*3/uL Eos # (Auto) (0.0-0.4) X10*3/uL Baso # (Auto) (0.0-0.2) X10*3/uL Abs Immat Gran (auto) (0.00-0.03) X10*3/uL Absolute Neuts (auto) (2.0-8.3) X10*3/uL Absolute Nucleated RBC (0.0-0.012) X10*3/uL Nucleated RBC % (auto) (0.0-0.2) /100WBC Smear Tech's Comments ESR (0-15) MM/HR PT (10.8-13.0) SEC INR (0.9-1.1) APTT (24.1-38.0) SEC Sodium (135-145) mmol/L Potassium (3.3-5.1) mmol/l Chloride (96-108) mmol/L Carbon Dioxide (22-29) mmol/L Anion Gap (12-20) BUN (9-16) mg/dL Creatinine (0.5-1.4) mg/dL Estim Creat Clear Calc Estimated GFR POC Glucose 293 H (60-115) mg/dL Random Glucose (60-115) mg/dL Lactic Acid (0.5-2.0) mmol/L Calcium (8.4-10.2) mg/dL Magnesium (1.6-2.6) mg/dL Ferritin (20-250) ng/mL Total Bilirubin (0.0-1.0) mg/dL Direct Bilirubin (0.0-0.5) mg/dL AST (5-37) U/L ALT (0-40) U/L Alkaline Phosphatase (39-117) U/L Lactate Dehydrogenase (118-273) U/L C-Reactive Protein (< or = 0.50) mg/dL B-Natriuretic Peptide (<100) pg/mL Total Protein (6.5-8.0) g/dL Albumin (3.5-5.0) g/dL Procalcitonin ng/mL Urine Color DARK YELLOW Urine Appearance HAZY Urine pH 5.5 (5.0-8.0) Ur Specific [place] >= 1.030 H (1.005-1.025) Urine Protein TRACE (NEG-TRACE) MG/DL Urine Glucose (UA) 100 H (NEG) MG/DL Urine Ketones NEG (NEG) MG/DL Urine Blood NEG (NEG) Urine Nitrite NEG (NEG) Ur Leukocyte Esterase NEG (NEG) Coronavirus (PCR) (Negative) Influenza Type A (PCR) (Negative) Influenza Type B (PCR) (Negative) RSV RNA Qual (PCR) (Negative) <GABINO Baird - Last Filed: 09/04/20 17:40> Lab Results 09/04/20 09/04/20 09/04/20 Range/Units 14:44 14:44 14:45 WBC (4.8-10.8) X10*3/uL RBC (4.60-5.80) X10*6/uL Hgb (14.0-18.0) g/dl Hct (42-52) % MCV (80-98) fL MCH (27.0-33.0) pg MCHC (31.0-36.0) g/dl RDW (11.0-16.0) % Plt Count (160-400) X10*3/uL MPV (9.4-12.4) fL Immature Gran % (Auto) (0.0-0.4) % Neut % (Auto) (45-73) % Lymph % (Auto) (20-40) % [place] % (Auto) (2-11) % Eos % (Auto) (0-4) % Baso % (Auto) (0-2) % Lymph # (Auto) (1.2-4.9) X10*3/uL [place] # (Auto) (0.1-1.2) X10*3/uL Eos # (Auto) (0.0-0.4) X10*3/uL Baso # (Auto) (0.0-0.2) X10*3/uL Abs Immat Gran (auto) (0.00-0.03) X10*3/uL Absolute Neuts (auto) (2.0-8.3) X10*3/uL Absolute Nucleated RBC (0.0-0.012) X10*3/uL Nucleated RBC % (auto) (0.0-0.2) /100WBC Smear Tech's Comments ESR (0-15) MM/HR PT (10.8-13.0) SEC INR (0.9-1.1) APTT (24.1-38.0) SEC Sodium (135-145) mmol/L Potassium (3.3-5.1) mmol/l Chloride (96-108) mmol/L Carbon Dioxide (22-29) mmol/L Anion Gap (12-20) BUN (9-16) mg/dL Creatinine (0.5-1.4) mg/dL Estim Creat Clear Calc Estimated GFR POC Glucose (60-115) mg/dL Random Glucose (60-115) mg/dL Lactic Acid 1.2 (0.5-2.0) mmol/L Calcium (8.4-10.2) mg/dL Magnesium (1.6-2.6) mg/dL Ferritin (20-250) ng/mL Total Bilirubin (0.0-1.0) mg/dL Direct Bilirubin (0.0-0.5) mg/dL AST (5-37) U/L ALT (0-40) U/L Alkaline Phosphatase (39-117) U/L Lactate Dehydrogenase (118-273) U/L C-Reactive Protein (< or = 0.50) mg/dL B-Natriuretic Peptide 59 (<100) pg/mL Total Protein (6.5-8.0) g/dL Albumin (3.5-5.0) g/dL Procalcitonin 0.18 ng/mL Urine Color Urine Appearance Urine pH (5.0-8.0) Ur Specific [place] (1.005-1.025) Urine Protein (NEG-TRACE) MG/DL Urine Glucose (UA) (NEG) MG/DL Urine Ketones (NEG) MG/DL Urine Blood (NEG) Urine Nitrite (NEG) Ur Leukocyte Esterase (NEG) Coronavirus (PCR) (Negative) Influenza Type A (PCR) (Negative) Influenza Type B (PCR) (Negative) RSV RNA Qual (PCR) (Negative) 09/04/20 09/04/20 09/04/20 Range/Units 14:45 14:45 14:46 WBC 12.1 H (4.8-10.8) X10*3/uL RBC 3.83 L (4.60-5.80) X10*6/uL Hgb 12.8 L (14.0-18.0) g/dl Hct 35.8 L (42-52) % MCV 93.5 (80-98) fL MCH 33.4 H (27.0-33.0) pg MCHC 35.8 (31.0-36.0) g/dl RDW 11.1 (11.0-16.0) % Plt Count 214 D (160-400) X10*3/uL MPV 10.3 (9.4-12.4) fL Immature Gran % (Auto) 0.5 H (0.0-0.4) % Neut % (Auto) 79.4 H (45-73) % Lymph % (Auto) 6.9 L (20-40) % [place] % (Auto) 12.5 H (2-11) % Eos % (Auto) 0.4 (0-4) % Baso % (Auto) 0.3 (0-2) % Lymph # (Auto) 0.8 L (1.2-4.9) X10*3/uL [place] # (Auto) 1.5 H (0.1-1.2) X10*3/uL Eos # (Auto) 0.1 (0.0-0.4) X10*3/uL Baso # (Auto) 0.0 (0.0-0.2) X10*3/uL Abs Immat Gran (auto) 0.06 H (0.00-0.03) X10*3/uL Absolute Neuts (auto) 9.6 H (2.0-8.3) X10*3/uL Absolute Nucleated RBC 0.000 (0.0-0.012) X10*3/uL Nucleated RBC % (auto) 0.0 (0.0-0.2) /100WBC Smear Tech's Comments VERIFIED ESR (0-15) MM/HR PT 15.9 H D (10.8-13.0) SEC INR 1.3 H (0.9-1.1) APTT 37.3 (24.1-38.0) SEC Sodium (135-145) mmol/L Potassium (3.3-5.1) mmol/l Chloride (96-108) mmol/L Carbon Dioxide (22-29) mmol/L Anion Gap (12-20) BUN (9-16) mg/dL Creatinine (0.5-1.4) mg/dL Estim Creat Clear Calc Estimated GFR POC Glucose (60-115) mg/dL Random Glucose (60-115) mg/dL Lactic Acid (0.5-2.0) mmol/L Calcium (8.4-10.2) mg/dL Magnesium (1.6-2.6) mg/dL Ferritin 609 H (20-250) ng/mL Total Bilirubin (0.0-1.0) mg/dL Direct Bilirubin (0.0-0.5) mg/dL AST (5-37) U/L ALT (0-40) U/L Alkaline Phosphatase (39-117) U/L Lactate Dehydrogenase (118-273) U/L C-Reactive Protein (< or = 0.50) mg/dL B-Natriuretic Peptide (<100) pg/mL Total Protein (6.5-8.0) g/dL Albumin (3.5-5.0) g/dL Procalcitonin ng/mL Urine Color Urine Appearance Urine pH (5.0-8.0) Ur Specific [place] (1.005-1.025) Urine Protein (NEG-TRACE) MG/DL Urine Glucose (UA) (NEG) MG/DL Urine Ketones (NEG) MG/DL Urine Blood (NEG) Urine Nitrite (NEG) Ur Leukocyte Esterase (NEG) Coronavirus (PCR) (Negative) Influenza Type A (PCR) (Negative) Influenza Type B (PCR) (Negative) RSV RNA Qual (PCR) (Negative) 09/04/20 09/04/20 09/04/20 Range/Units 14:46 14:46 15:00 WBC (4.8-10.8) X10*3/uL RBC (4.60-5.80) X10*6/uL Hgb (14.0-18.0) g/dl Hct (42-52) % MCV (80-98) fL MCH (27.0-33.0) pg MCHC (31.0-36.0) g/dl RDW (11.0-16.0) % Plt Count (160-400) X10*3/uL MPV (9.4-12.4) fL Immature Gran % (Auto) (0.0-0.4) % Neut % (Auto) (45-73) % Lymph % (Auto) (20-40) % [place] % (Auto) (2-11) % Eos % (Auto) (0-4) % Baso % (Auto) (0-2) % Lymph # (Auto) (1.2-4.9) X10*3/uL [place] # (Auto) (0.1-1.2) X10*3/uL Eos # (Auto) (0.0-0.4) X10*3/uL Baso # (Auto) (0.0-0.2) X10*3/uL Abs Immat Gran (auto) (0.00-0.03) X10*3/uL Absolute Neuts (auto) (2.0-8.3) X10*3/uL Absolute Nucleated RBC (0.0-0.012) X10*3/uL Nucleated RBC % (auto) (0.0-0.2) /100WBC Smear Tech's Comments ESR 90 H (0-15) MM/HR PT (10.8-13.0) SEC INR (0.9-1.1) APTT (24.1-38.0) SEC Sodium 131 L (135-145) mmol/L Potassium 4.4 (3.3-5.1) mmol/l Chloride 98 (96-108) mmol/L Carbon Dioxide 22 (22-29) mmol/L Anion Gap 15 (12-20) BUN 27 H (9-16) mg/dL Creatinine 1.24 (0.5-1.4) mg/dL Estim Creat Clear Calc 90.1 Estimated GFR 59 POC Glucose (60-115) mg/dL Random Glucose 216 H (60-115) mg/dL Lactic Acid (0.5-2.0) mmol/L Calcium 8.3 L D (8.4-10.2) mg/dL Magnesium 1.5 L (1.6-2.6) mg/dL Ferritin (20-250) ng/mL Total Bilirubin 1.6 H (0.0-1.0) mg/dL Direct Bilirubin 0.9 H (0.0-0.5) mg/dL AST 36 D (5-37) U/L ALT 61 H (0-40) U/L Alkaline Phosphatase 134 H D (39-117) U/L Lactate Dehydrogenase 187 (118-273) U/L C-Reactive Protein 18.48 H (< or = 0.50) mg/dL B-Natriuretic Peptide (<100) pg/mL Total Protein 6.7 (6.5-8.0) g/dL Albumin 3.7 (3.5-5.0) g/dL Procalcitonin ng/mL Urine Color Urine Appearance Urine pH (5.0-8.0) Ur Specific [place] (1.005-1.025) Urine Protein (NEG-TRACE) MG/DL Urine Glucose (UA) (NEG) MG/DL Urine Ketones (NEG) MG/DL Urine Blood (NEG) Urine Nitrite (NEG) Ur Leukocyte Esterase (NEG) Coronavirus (PCR) NEGATIVE (Negative) Influenza Type A (PCR) NEGATIVE (Negative) Influenza Type B (PCR) NEGATIVE (Negative) RSV RNA Qual (PCR) NEGATIVE (Negative) 09/04/20 09/04/20 Range/Units 20:00 22:07 WBC (4.8-10.8) X10*3/uL RBC (4.60-5.80) X10*6/uL Hgb (14.0-18.0) g/dl Hct (42-52) % MCV (80-98) fL MCH (27.0-33.0) pg MCHC (31.0-36.0) g/dl RDW (11.0-16.0) % Plt Count (160-400) X10*3/uL MPV (9.4-12.4) fL Immature Gran % (Auto) (0.0-0.4) % Neut % (Auto) (45-73) % Lymph % (Auto) (20-40) % [place] % (Auto) (2-11) % Eos % (Auto) (0-4) % Baso % (Auto) (0-2) % Lymph # (Auto) (1.2-4.9) X10*3/uL [place] # (Auto) (0.1-1.2) X10*3/uL Eos # (Auto) (0.0-0.4) X10*3/uL Baso # (Auto) (0.0-0.2) X10*3/uL Abs Immat Gran (auto) (0.00-0.03) X10*3/uL Absolute Neuts (auto) (2.0-8.3) X10*3/uL Absolute Nucleated RBC (0.0-0.012) X10*3/uL Nucleated RBC % (auto) (0.0-0.2) /100WBC Smear Tech's Comments ESR (0-15) MM/HR PT (10.8-13.0) SEC INR (0.9-1.1) APTT (24.1-38.0) SEC Sodium (135-145) mmol/L Potassium (3.3-5.1) mmol/l Chloride (96-108) mmol/L Carbon Dioxide (22-29) mmol/L Anion Gap (12-20) BUN (9-16) mg/dL Creatinine (0.5-1.4) mg/dL Estim Creat Clear Calc Estimated GFR POC Glucose 293 H (60-115) mg/dL Random Glucose (60-115) mg/dL Lactic Acid (0.5-2.0) mmol/L Calcium (8.4-10.2) mg/dL Magnesium (1.6-2.6) mg/dL Ferritin (20-250) ng/mL Total Bilirubin (0.0-1.0) mg/dL Direct Bilirubin (0.0-0.5) mg/dL AST (5-37) U/L ALT (0-40) U/L Alkaline Phosphatase (39-117) U/L Lactate Dehydrogenase (118-273) U/L C-Reactive Protein (< or = 0.50) mg/dL B-Natriuretic Peptide (<100) pg/mL Total Protein (6.5-8.0) g/dL Albumin (3.5-5.0) g/dL Procalcitonin ng/mL Urine Color DARK YELLOW Urine Appearance HAZY Urine pH 5.5 (5.0-8.0) Ur Specific [place] >= 1.030 H (1.005-1.025) Urine Protein TRACE (NEG-TRACE) MG/DL Urine Glucose (UA) 100 H (NEG) MG/DL Urine Ketones NEG (NEG) MG/DL Urine Blood NEG (NEG) Urine Nitrite NEG (NEG) Ur Leukocyte Esterase NEG (NEG) Coronavirus (PCR) (Negative) Influenza Type A (PCR) (Negative) Influenza Type B (PCR) (Negative) RSV RNA Qual (PCR) (Negative) <Lon Espinosa MD - Last Filed: 09/13/20 00:05> ECG Data Attestation: I personally reviewed and interpreted this ECG as follows: <GABINO Baird - Last Filed: 09/04/20 17:40> ECG interpretation date: 09/04/20 <GABINO Baird - Last Filed: 09/04/20 17:40> Prior ECG tracings: available for review <GABINO Baird - Last Filed: 09/04/20 17:40> Interpretation: Artifact present in the EKG. Rate of 97. NSR. No acute STEMI. QTC 414 <GABINO Baird - Last Filed: 09/04/20 17:40> Discharge Plan Discharge Clinical Impression: Necrosis of toe Cellulitis Qualifiers: Site of cellulitis: extremity Site of cellulitis of extremity: lower extremity Laterality: right Qualified Code(s): L03.115 - Cellulitis of right lower limb <GABINO Baird - Last Filed: 09/04/20 17:40> Patient Disposition: Admitted As Inpatient <GABINO Baird - Last Filed: 09/04/20 17:40> Interventions: Admission Worksheet (ED) Last Done: 09/05/20 11:31 <GABINO Baird - Last Filed: 09/04/20 17:40> Discharge Date/Time: 09/05/20 11:31 <GABINO Baird - Last Filed: 09/04/20 17:40>
--- NOTE | 2020-09-04 14:12 | XR_ITS ---
EXAMINATION: XR CHEST CLINICAL INFORMATION: Cough COMPARISON: Chest radiographs 07/15/2020, 05/30/2018 TECHNIQUE: Upright AP view of the chest was obtained. FINDINGS: The lungs are clear. There is no airspace consolidation or groundglass opacity. No effusion. The heart is normal in size. The hilar and mediastinal contours and visualized bony structures are unremarkable. XR/XR chest 1V IMPRESSION: Unremarkable examination.
[2020-09-04 14:57] LABS: Basophils Percent Auto 0.3 % (0-2); Eosinophils Absolute Auto 0.1 X10*3/uL (0.0-0.4); Eosinophils Percent Auto 0.4 % (0-4); Hematocrit 35.8 % (42-52); Hemoglobin 12.8 g/dl (14.0-18.0); Imm Gran Abs Auto 0.06 X10*3/uL (0.00-0.03); Imm Gran Pct Auto 0.5 % (0.0-0.4); Lymphocytes Absolute Auto 0.8 X10*3/uL (1.2-4.9); Lymphocytes Percent Auto 6.9 % (20-40); MANUAL DIFF FLAG SCAN; Mean Corpuscular HGB Conc 35.8 g/dl (31.0-36.0); Mean Corpuscular Hemoglobin 33.4 pg (27.0-33.0); Mean Corpuscular Volume 93.5 fL (80-98); Mean Platelet Volume 10.3 fL (9.4-12.4); Monocytes Absolute Auto 1.5 X10*3/uL (0.1-1.2); Monocytes Percent Auto 12.5 % (2-11); Neutrophils Absolute Auto 9.6 X10*3/uL (2.0-8.3); Neutrophils Percent Auto 79.4 % (45-73); Platelet Count 214 X10*3/uL (160-400); Red Blood Count 3.83 X10*6/uL (4.60-5.80); Red Cell Distribution Width 11.1 % (11.0-16.0); SCAN SMEAR FLAG 1; White Blood Count 12.1 X10*3/uL (4.8-10.8)
[2020-09-04] MEDS: Piperacillin Sodium/Tazobactam 3.375 GM in 0.9 % Sodium Chloride 50 ML IV ×2 (15:01→21:29)
[2020-09-04 15:02] LABS: INTERNATIONAL NORM RATIO 1.3 (0.9-1.1); Prothrombin Time 15.9 SEC (10.8-13.0)
[2020-09-04 15:04] LABS: Partial Thromboplastin Time 37.3 SEC (24.1-38.0)
[2020-09-04 15:23] LABS: Lactic Acid 1.2 mmol/L (0.5-2.0)
[2020-09-04 15:25] LABS: SLIDE REVIEW VERIFIED
[2020-09-04 15:29] LABS: Alanine Aminotransferase 61 U/L (0-40); Albumin Level 3.7 g/dL (3.5-5.0); Alkaline Phosphatase 134 U/L (39-117); Anion Gap 15 (12-20); Aspartate Amino Transferase 36 U/L (5-37); Bilirubin Direct 0.9 mg/dL (0.0-0.5); Bilirubin Total 1.6 mg/dL (0.0-1.0); Blood Urea Nitrogen 27 mg/dL (9-16); C Reactive Protein 18.48 mg/dL (< or = 0.50); Calcium 8.3 mg/dL (8.4-10.2); Carbon Dioxide 22 mmol/L (22-29); Chloride 98 mmol/L (96-108); Creatinine Clr Calc Pharmacy 90.1; Estimated Glomerular Filt Rate 59; Glucose Random 216 mg/dL (60-115); Lactate Dehydrogenase 187 U/L (118-273); Magnesium 1.5 mg/dL (1.6-2.6); Potassium 4.4 mmol/l (3.3-5.1); Sodium 131 mmol/L (135-145); Total Protein 6.7 g/dL (6.5-8.0)
[2020-09-04 15:31] LABS: B Type Natriuretic Peptide 59 pg/mL (<100)
[2020-09-04 15:47] LABS: Procalcitonin 0.18 ng/mL
[2020-09-04 15:51] LABS: Ferritin 609 ng/mL (20-250)
[2020-09-04 15:58] VITALS: BP 119/58; PULSE 97; RESP 20; TEMP 37.7; O2SAT 95
[2020-09-04 16:14] LABS: Influenza A PCR NEGATIVE (Negative); Influenza B PCR NEGATIVE (Negative); Resp Syncy Virus RNA Qual PCR NEGATIVE (Negative); SARS COV2 PCR INHOUSE NEGATIVE (Negative)
--- NOTE | 2020-09-04 16:18 | P.CONGS_ITS ---
History of Present Illness Consult details Consult date: 09/04/20 Narrative: 60-year-old male patient with a history of diabetes mellitus and peripheral vascular disease, presenting to the emergency department with complaints of right leg pain extending down to the foot as well as follows smelling discharge from his right great toe. Patient reports generalized aches, lethargy, and anorexia for several days. He reports not eating food due to the symptoms for least several days. He denies fever or chills. He reports having a previous vascular procedure to the right leg performed by Dr. Figueroa. He also reports numerous previous infections of the right great toe the past. He feels this is the worst it has been. Review of Systems 2 Constitutional: Constitutional: Reports anorexia, Reports body ache(s), Denies chills, Denies fever(s), Reports malaise, Reports weakness and Reports weight loss Cardiovascular: Cardiovascular: Reports no additional cardiovascular complaints and Reports dyspnea Respiratory: Respiratory: Reports cough and Reports dyspnea Gastrointestinal: Gastrointestinal: Reports no additional gastrointestinal complaints Musculoskeletal: Musculoskeletal: Reports muscle cramps (Right leg) and Reports radiating pain into limb (Right leg) Integumentary/Breasts: Skin/Breast: Reports as per HPI Neurologic: Reports weakness PMFSH Past Medical History Medical History Back pain Hyperlipidemia Hypertension IDDM (insulin dependent diabetes mellitus) Neck pain Peripheral neuropathy Psychiatric diagnosis Sleep apnea Surgical History Surgical History H/O colonoscopy Hx of angioplasty Hx of appendectomy Hx of foot surgery Hx of tonsillectomy Hx of umbilical hernia repair Social History Social History Alcohol intake: never Smoking Status: Former smoker Smoked in Last 30 Days: No Use of substances other than those prescribed or required for medical reasons: No Advance Directives: No Advance Directives Information Provided: Yes Meds Allergies Allergy/AdvReac Type Severity Reaction Status Date / Time No Known Allergies Allergy Verified 07/15/20 11:10 [No Known Allergies*] Home Medications Medication Instructions Recorded Confirmed Type aspirin 81 mg PO DAILY 07/17/20 09/04/20 History atorvastatin 40 mg PO BEDTIME 07/17/20 09/04/20 History gabapentin 600 mg PO BEDTIME 07/17/20 09/04/20 History insulin degludec [Tresiba 80 unit SUBCUT QAM 07/17/20 History FlexTouch U-100] ipratropium-albuterol [Combivent 2 puff INHALATION Q6H PRN 07/17/20 07/17/20 History Respimat] liraglutide [Victoza 3-Chet] 1.8 mg SUBCUT 07/17/20 07/17/20 History lisinopril 5 mg PO DAILY 07/17/20 09/04/20 History metformin 1,000 mg PO BID 07/17/20 09/04/20 History bisacodyl 5 mg PO BID 09/04/20 09/04/20 History cholecalciferol (vitamin D3) 25 mcg PO DAILY 09/04/20 09/04/20 History fluoxetine 10 mg PO DAILY 09/04/20 09/04/20 History insulin degludec [Tresiba See Rx Instructions .ROUTE .COMPLEX 09/04/20 History FlexTouch U-100] Physical Exam Vital Signs: Vital Signs: Last Vital Signs Temp 99.8 F 09/04/20 15:58 Pulse 97 09/04/20 15:58 Resp 20 09/04/20 15:58 BP 119/58 L 09/04/20 15:58 Pulse Ox 95 09/04/20 15:58 Body Mass Index 37.2 Const: General: cooperative and no acute distress Nutritional Appearance: average body habitus Orientation/consciousness: patient oriented x3 Neck: Neck: Yes normal visual inspection and Yes no JVD Resp: Effort & Inspection: normal respiratory effort, no audible wheezes, no cough, no stridor and not tachypneic Cardio: Jugular venous distension: no JVD GI: Inspection: Yes normal to inspection and No distended Palpation (GI): nontender Skin: General skin exam: dry skin and erythema (Right great toe) Neuro: General: patient oriented x3 Extrem: Other: Bluish discoloration involving the right great toe with surrounding erythema extending up the dorsum plantar surface of the distal metatarsal skin. No definite fluctuance is palpable but the skin is tense. Open wound noted at the distal phalanx but no discharge could be expressed. No erythema noted in the [place]. Ankle/foot/toe images: 1. Erythema 2. Erythema Results Labs Result diagrams: 09/04/20 14:46 09/04/20 14:46 Labs: Abnormal lab results 09/04/20 09/04/20 09/04/20 Range/Units 14:45 14:45 14:46 WBC 12.1 H (4.8-10.8) X10*3/uL RBC 3.83 L (4.60-5.80) X10*6/uL Hgb 12.8 L (14.0-18.0) g/dl Hct 35.8 L (42-52) % MCH 33.4 H (27.0-33.0) pg Immature Gran % (Auto) 0.5 H (0.0-0.4) % Neut % (Auto) 79.4 H (45-73) % Lymph % (Auto) 6.9 L (20-40) % [place] % (Auto) 12.5 H (2-11) % Lymph # (Auto) 0.8 L (1.2-4.9) X10*3/uL [place] # (Auto) 1.5 H (0.1-1.2) X10*3/uL Abs Immat Gran (auto) 0.06 H (0.00-0.03) X10*3/uL Absolute Neuts (auto) 9.6 H (2.0-8.3) X10*3/uL PT 15.9 H D (10.8-13.0) SEC INR 1.3 H (0.9-1.1) Sodium (135-145) mmol/L BUN (9-16) mg/dL Random Glucose (60-115) mg/dL Calcium (8.4-10.2) mg/dL Magnesium (1.6-2.6) mg/dL Ferritin 609 H (20-250) ng/mL Total Bilirubin (0.0-1.0) mg/dL Direct Bilirubin (0.0-0.5) mg/dL ALT (0-40) U/L Alkaline Phosphatase (39-117) U/L C-Reactive Protein (< or = 0.50) mg/dL 09/04/20 Range/Units 14:46 WBC (4.8-10.8) X10*3/uL RBC (4.60-5.80) X10*6/uL Hgb (14.0-18.0) g/dl Hct (42-52) % MCH (27.0-33.0) pg Immature Gran % (Auto) (0.0-0.4) % Neut % (Auto) (45-73) % Lymph % (Auto) (20-40) % [place] % (Auto) (2-11) % Lymph # (Auto) (1.2-4.9) X10*3/uL [place] # (Auto) (0.1-1.2) X10*3/uL Abs Immat Gran (auto) (0.00-0.03) X10*3/uL Absolute Neuts (auto) (2.0-8.3) X10*3/uL PT (10.8-13.0) SEC INR (0.9-1.1) Sodium 131 L (135-145) mmol/L BUN 27 H (9-16) mg/dL Random Glucose 216 H (60-115) mg/dL Calcium 8.3 L D (8.4-10.2) mg/dL Magnesium 1.5 L (1.6-2.6) mg/dL Ferritin (20-250) ng/mL Total Bilirubin 1.6 H (0.0-1.0) mg/dL Direct Bilirubin 0.9 H (0.0-0.5) mg/dL ALT 61 H (0-40) U/L Alkaline Phosphatase 134 H D (39-117) U/L C-Reactive Protein 18.48 H (< or = 0.50) mg/dL Short CBC 09/04/20 Range/Units 14:46 WBC 12.1 H (4.8-10.8) X10*3/uL Hgb 12.8 L (14.0-18.0) g/dl Hct 35.8 L (42-52) % Plt Count 214 D (160-400) X10*3/uL BMP 09/04/20 14:46 Sodium 131 L Potassium 4.4 Chloride 98 Carbon Dioxide 22 BUN 27 H Creatinine 1.24 Calcium 8.3 L D Liver Function 09/04/20 Range/Units 14:46 Total Bilirubin 1.6 H (0.0-1.0) mg/dL Direct Bilirubin 0.9 H (0.0-0.5) mg/dL AST 36 D (5-37) U/L ALT 61 H (0-40) U/L Alkaline Phosphatase 134 H D (39-117) U/L Albumin 3.7 (3.5-5.0) g/dL All other labs normal. Right foot x-ray: IMPRESSION: Soft tissue swelling without definite erosive change or gas within the soft tissues. Assessment and Plan (1) Necrosis of toe: Status: Acute 60-year-old male patient with a known history of peripheral vascular disease and diabetes now presenting with an inflamed/cellulitic/necrotic right great toe with history of foul-smelling discharge. Foot x-ray reviewed and reveals soft tissue swelling without evidence of osteomyelitis. Patient would benefit from intravenous antibiotics and vascular evaluation with Dr. Figueroa. (2) Cellulitis: Qualifiers: Laterality: right Site of cellulitis: extremity Site of cellulitis of extremity: lower extremity Qualified Code(s): L03.115 - Cellulitis of right lower limb Status: Acute
[2020-09-04] MEDS: vancomycin HCL 1,000 MG, vancomycin HCL 750 MG in 0.9 % Sodium Chloride 500 ML 267.5 MG IV (17:49)
[2020-09-04 19:08] VITALS: BP 133/61; PULSE 61; RESP 18; TEMP 37.6; O2SAT 95
--- NOTE | 2020-09-04 19:10 | US_ITS ---
EXAMINATION: US VENOUS ULTRASOUND WITH DOPPLER LOWER EXTREMITY, RIGHT CLINICAL INFORMATION: Infection COMPARISON: None TECHNIQUE: Ultrasound of the deep veins is performed from the hip to the calf with compression sonography and color and pulse Doppler assessment. Spectral analysis with color-flow imaging is performed. FINDINGS: There is normal venous compression and respiratory variation and augmented flow. The visualized common femoral vein, superficial femoral vein, profunda femoral vein, popliteal vein, and the trifurcation region shows no evidence of deep venous thrombosis. There is no significant popliteal fossa cyst. Prominent lymph nodes in the groin. The largest measuring 4 cm x 1.4 cm. Disorganized echotexture. This may be reactive. Underlying malignancy cannot be excluded. Correlation recommended clinically If the patient's symptoms persist, followup ultrasound in 5 days 7 days might be of value to exclude proximal propagation from a non-visualized calf vein. US/US venous duplex LE RT IMPRESSION: No DVT demonstrated in the right lower extremity. Prominent groin nodes noted. Correlation needs to be made clinically
--- NOTE | 2020-09-04 20:59 | P.HPHOSP_ITS ---
History of Present Illness Date of Service: 09/04/20 Chief Complaint: foot wound This is a 60-year-old male with past medical history of diabetes, hypertension, hyperlipidemia, peripheral neuropathy, COPD who presents to the hospital with complaints of right big toe swelling, drainage, as well as changes in skin c olor. Patient reports that he started noticing changes in the skin color for about few days now, he also started having malodorous drainage that was green pus in color therefore he was concerning came to the hospital. He reports that he usually follows up with the wound clinic at the [facility] due to this toe having and also chronically and was there about a week ago . He regularly gets I&D of the toe and about a week ago he was there with no complications or issues. He has significant neuropathy and does not feel any pain in his foot, he noticed skin changes were his toe has now become blue and has also dark necrosis at the base of the toe, He has also been having a cough that is non productive, he has some chills with no fever, he has no shortness of breath, has no rhinorrhea, no headache, no change in vision, he has on and off diarrhea, no urinary symptoms, he has had low oral intake. And low appetite. Denies any extremity swelling otherwise. On arrival to the ED vitals are significant for temp of 98.6?, pulse rate of 91, respiratory rate of 18, blood pressure 143/74, 97% O2 on room air. Patient did become tachycardic with a heart rate of 107 Labs are significant for WBC count of 12.1, ESR of 90, PT of 15.9, INR of 1.3, sodium of 131, BUN of 27, creatinine of 1.24 (baseline), glucose of 23, magnesium of 1.5, CRP of 18.4, UA negative, COVID-19 negative, Foot x-ray demonstrates soft tissue swelling without definite erosive changes or gas within the soft tissue Chest x-ray shows unremarkable exam, Past medical history: Diabetes, hypertension, hyperlipidemia, COPD, peripheral neuropathy Surgical history: Appendectomy, tonsillectomy, umbilical cord hernia repair Family history: Significant for diabetes, heart disease Social history: Comes from home, currently denies tobacco alcohol or illicit drugs Review of Systems Review of Systems: Yes all other systems are reviewed and are negative Constitutional: Constitutional: Reports weakness Neurologic: Reports weakness PMFSH Medical History Back pain Hyperlipidemia Hypertension IDDM (insulin dependent diabetes mellitus) Neck pain Peripheral neuropathy Psychiatric diagnosis Sleep apnea Surgical History H/O colonoscopy Hx of angioplasty Hx of appendectomy Hx of foot surgery Hx of tonsillectomy Hx of umbilical hernia repair Social History Alcohol intake: never Smoking Status: Former smoker Smoked in Last 30 Days: No Use of substances other than those prescribed or required for medical reasons: No Advance Directives: No Advance Directives Information Provided: Yes Meds Allergies Allergy/AdvReac Type Severity Reaction Status Date / Time No Known Allergies Allergy Verified 07/15/20 11:10 [No Known Allergies*] Home Medications Medication Instructions Recorded Confirmed Type aspirin 81 mg PO DAILY 07/17/20 09/04/20 History atorvastatin 40 mg PO BEDTIME 07/17/20 09/04/20 History gabapentin 600 mg PO BEDTIME 07/17/20 09/04/20 History insulin degludec [Tresiba 80 unit SUBCUT QAM 07/17/20 09/04/20 History FlexTouch U-100] ipratropium-albuterol [Combivent 2 puff INHALATION Q6H PRN 07/17/20 09/04/20 History Respimat] liraglutide [Victoza 3-Chet] 1.8 mg SUBCUT DAILY 07/17/20 09/04/20 History lisinopril 5 mg PO DAILY 07/17/20 09/04/20 History metformin 1,000 mg PO BID 07/17/20 09/04/20 History bisacodyl 5 mg PO BID 09/04/20 09/04/20 History cholecalciferol (vitamin D3) 25 mcg PO DAILY 09/04/20 09/04/20 History fluoxetine 10 mg PO DAILY 09/04/20 09/04/20 History insulin degludec [Tresiba 65 unit SUBCUT BEDTIME 09/04/20 09/04/20 History FlexTouch U-100] Physical Exam Vital Signs and Narrative: Vital Signs: Last Vital Signs Temp 99.6 F 09/04/20 19:08 Pulse 61 01/13/21 19:08 Resp 18 09/04/20 19:08 BP 133/61 09/04/20 19:08 Pulse Ox 95 09/04/20 19:08 Body Mass Index 37.2 Const: General: cooperative and no acute distress Orientation/consciousness: patient oriented x3 Eyes: General: appearance normal, both eyes and all related structures Resp: Effort & Inspection: normal respiratory effort and able to speak in complete sentences Cardio: Rate: regular rate Rhythm: regular rhythm GI: Palpation (GI): Soft to palpation Auscultation: normal bowel sounds Skin: General skin exam: no rashes or lesions noted Neuro: General: patient oriented x3 Cognition (Neuro): normal cognition Extrem: Other: Right toe has discoloration, purple to blue, has a wound at the base of large right toe that is necrotic, there is swelling, erythema, warmth, unable to elicit any tenderness General: Yes normal to inspection Results Labs CBC and Chem 7: 09/04/20 14:46 09/04/20 14:46 Labs: Laboratory Results - last 24 hr 09/04/20 09/04/20 09/04/20 14:44 14:44 14:45 MCV MCH MCHC RDW Plt Count MPV Immature Gran % (Auto) Neut % (Auto) Lymph % (Auto) [place] % (Auto) Eos % (Auto) Baso % (Auto) Lymph # (Auto) [place] # (Auto) Eos # (Auto) Baso # (Auto) Abs Immat Gran (auto) Absolute Neuts (auto) Absolute Nucleated RBC Nucleated RBC % (auto) Smear Tech's Comments PT INR APTT Anion Gap Estim Creat Clear Calc Estimated GFR Random Glucose Lactic Acid 1.2 Calcium Magnesium Ferritin Total Bilirubin Direct Bilirubin AST ALT Alkaline Phosphatase Lactate Dehydrogenase C-Reactive Protein B-Natriuretic Peptide 59 Total Protein Albumin Procalcitonin 0.18 Coronavirus (PCR) Influenza Type A (PCR) Influenza Type B (PCR) RSV RNA Qual (PCR) 09/04/20 09/04/20 09/04/20 14:45 14:45 14:46 MCV 93.5 MCH 33.4 H MCHC 35.8 RDW 11.1 Plt Count 214 D MPV 10.3 Immature Gran % (Auto) 0.5 H Neut % (Auto) 79.4 H Lymph % (Auto) 6.9 L [place] % (Auto) 12.5 H Eos % (Auto) 0.4 Baso % (Auto) 0.3 Lymph # (Auto) 0.8 L [place] # (Auto) 1.5 H Eos # (Auto) 0.1 Baso # (Auto) 0.0 Abs Immat Gran (auto) 0.06 H Absolute Neuts (auto) 9.6 H Absolute Nucleated RBC 0.000 Nucleated RBC % (auto) 0.0 Smear Tech's Comments VERIFIED PT 15.9 H D INR 1.3 H APTT 37.3 Anion Gap Estim Creat Clear Calc Estimated GFR Random Glucose Lactic Acid Calcium Magnesium Ferritin 609 H Total Bilirubin Direct Bilirubin AST ALT Alkaline Phosphatase Lactate Dehydrogenase C-Reactive Protein B-Natriuretic Peptide Total Protein Albumin Procalcitonin Coronavirus (PCR) Influenza Type A (PCR) Influenza Type B (PCR) RSV RNA Qual (PCR) 09/04/20 09/04/20 14:46 15:00 MCV MCH MCHC RDW Plt Count MPV Immature Gran % (Auto) Neut % (Auto) Lymph % (Auto) [place] % (Auto) Eos % (Auto) Baso % (Auto) Lymph # (Auto) [place] # (Auto) Eos # (Auto) Baso # (Auto) Abs Immat Gran (auto) Absolute Neuts (auto) Absolute Nucleated RBC Nucleated RBC % (auto) Smear Tech's Comments PT INR APTT Anion Gap 15 Estim Creat Clear Calc 90.1 Estimated GFR 59 Random Glucose 216 H Lactic Acid Calcium 8.3 L D Magnesium 1.5 L Ferritin Total Bilirubin 1.6 H Direct Bilirubin 0.9 H AST 36 D ALT 61 H Alkaline Phosphatase 134 H D Lactate Dehydrogenase 187 C-Reactive Protein 18.48 H B-Natriuretic Peptide Total Protein 6.7 Albumin 3.7 Procalcitonin Coronavirus (PCR) NEGATIVE Influenza Type A (PCR) NEGATIVE Influenza Type B (PCR) NEGATIVE RSV RNA Qual (PCR) NEGATIVE Imaging Radiologist's Impressions: Impressions Foot X-Ray 09/04/20 11:43 IMPRESSION: Soft tissue swelling without definite erosive change or gas within the soft tissues. Chest X-Ray 09/04/20 14:12 IMPRESSION: Unremarkable examination. Venous Duplex 09/04/20 19:10 IMPRESSION: No DVT demonstrated in the right lower extremity. Prominent groin nodes noted. Correlation needs to be made clinically Assessment and Plan (1) Sepsis: Qualifiers: Sepsis type: sepsis due to unspecified organism Sepsis acute organ dysfunction status: without acute organ dysfunction Qualified Code(s): A41.9 - Sepsis, unspecified organism Status: Acute (2) Diabetic foot ulcer: Qualifiers: Diabetic foot ulcer location: toe Diabetes mellitus type: type 2 Laterality: right Non-pressure ulcer stage: unspecified non-pressure ulcer stage Qualified Code(s): E11.621 - Type 2 diabetes mellitus with foot ulcer; L97.519 - Non-pressure chronic ulcer of other part of right foot with unspecified severity Status: Acute (3) Necrosis of toe: Status: Acute (4) Elevated erythrocyte sedimentation rate: Status: Acute (5) Hypomagnesemia: Status: Acute This is a 60-year-old male with past medical history of diabetes as well as peripheral neuropathy who presents to the hospital with complaints of right toe wound, drainage # sepsis - patient has tachycardia, leukocytosis, - elevated ESR, CRP, indicative of possible osteomyelitis Plan: - started on broad-spectrum antibiotics - follow blood cultures - MRI to rule out osteomyelitis # diabetic foot ulcer - has changes to the skin color suggestive of necrosis - drainage that is malodorous\ - has elevated inflammatory markers including ESR and CRP, leukocytosis Plan: - started on vanc and Zosyn - will follow blood cultures -obtain MRI to rule out osteomyelitis - consult general surgery as well as infectious disease consult placed - pending arterial duplex # hypo magnesemia - repleted - follow magnesium level # necrosis of toe - has color changes of right big toe as well as the ulcer at the base of the toe - will obtain arterial duplex - antibiotics as above # diabetes mellitus - continue home insulin - low-dose sliding scale insulin - diabetic diet # hypertension - continue antihypertensives # cough - no sputum production, no increased dyspnea, COVID-19 negative, chest x-ray negative for any evidence of pneumonia - supportive measures with cough medications - continue inhalers DVT prophylaxis: Heparin subQ
[2020-09-04] MEDS: Atorvastatin Calcium 40 MG TABLET PO (21:28)
[2020-09-04] MEDS: bisacodyL 5 MG TABLET.DR PO (21:29)
[2020-09-04] MEDS: Gabapentin 600 MG TABLET PO (21:29)
[2020-09-04 21:36] LABS: Glucose Urine UA 100 MG/DL (NEG); Leukocyte Esterase Urine NEG (NEG); Nitrite Urine NEG (NEG); PH 5.5 (5.0-8.0); Specific Gravity - Urine >= 1.030 (1.005-1.025); Urine Blood NEG (NEG); Urine Ketones NEG (NEG); Urine Protein TRACE MG/DL (NEG-TRACE)
[2020-09-04 21:42] LABS: Appearance Urine HAZY; Color Urine DARK YELLOW
[2020-09-04 22:02] VITALS: BP 135/62; PULSE 107; RESP 20; O2SAT 95
[2020-09-04 22:15] LABS: Glucose, Whole Blood 293 mg/dL (60-115)
[2020-09-04 22:26] LABS: Erythrocyte Sedimentation Rate 90 MM/HR (0-15)
--- NOTE | 2020-09-04 22:51 | US_ITS ---
EXAMINATION: US MAGNUS AND DUPLEX DOPPLER ARTERIAL EVALUATION OF THE LOWER EXTREMITIES BILATERALLY CLINICAL INFORMATION: Nonhealing ulcer. COMPARISON: 10/12/2019 TECHNIQUE: ABIs and real-time ultrasound and Doppler techniques (integrating B-mode 2D vascular images, Doppler spectral analysis and color flow Doppler imaging) were utilized to interrogate the lower extremities bilaterally. FINDINGS: Right MAGNUS: 1.06 normal. Left MAGNUS: 1.47 which is abnormally elevated and likely related to calcified vessels with difficulty compressing. Right lower extremity: The common femoral artery has a triphasic waveform with peak systolic velocity of 123 cm/s. The right profunda femoral artery has a triphasic waveform with peak systolic velocity of 94 cm/s. The proximal superficial femoral artery has a triphasic waveform with peak systolic velocity of 76 cm/s. The mid superficial femoral artery has a triphasic waveform with peak systolic velocity of 72 cm/s. The distal superficial femoral artery has a triphasic waveform with peak systolic velocity of 94 cm/s. The popliteal artery has a triphasic waveform with peak systolic velocity of 80 cm/s. No flow is identified within the posterior tibial and peroneal arteries but pulses were audible with the continuous wave Doppler. Left lower extremity: The common femoral artery has a triphasic waveform with peak systolic velocity of 78 cm/s. The profunda femoral artery has a triphasic waveform with peak systolic velocity of 65 cm/s. The proximal superficial femoral artery has a triphasic waveform with peak systolic velocity of 79 cm/s. The mid superficial femoral artery has a triphasic waveform with peak systolic velocity of 66 cm/s. The distal superficial femoral artery has a triphasic waveform with peak systolic velocity 56 cm/s. The popliteal artery has a triphasic waveform with peak systolic velocity of 60 cm/s. [id number] arterial waveforms were not obtainable, however, continuous wave Doppler was audible. US/US MAGNUS complete IMPRESSION: Right lower extremity: Triphasic waveforms down to the popliteal arteries with normal MAGNUS. Left lower extremity: Triphasic waveform down to the popliteal artery. Abnormally elevated MAGNUS likely related to calcified vessel with inability to compress.
[2020-09-04] MEDS: guaiFENesin DM 100/10/5 ML 5 ML SYRUP PO (23:08)
[2020-09-04] MEDS: Insulin Glargine,Hum.rec.anlog 100 UNIT/ML 10 ML VIAL 45 UNIT SUBCUT (23:08)
[2020-09-04] MEDS: Insulin Lispro 100 UNIT/ML 3 ML VIAL SUBCUT (23:09)
[2020-09-05] VITALS: RESP 18; O2SAT 95
[2020-09-05] MEDS: Piperacillin Sodium/Tazobactam 3.375 GM in 0.9 % Sodium Chloride 50 ML IV ×4 (03:48→21:17)
[2020-09-05 04:00] VITALS: BP 140/70; PULSE 88; RESP 18; TEMP 37.4; O2SAT 95
[2020-09-05] MEDS: Benzonatate 100 MG CAPSULE 200 MG PO ×2 (04:24→21:17)
[2020-09-05] MEDS: Magnesium Sulfate/H2O 2 GM/50 ML PIGGYBACK IV (07:10)
--- NOTE | 2020-09-05 07:34 | PC.NURSE ---
md curry states she will come see the pt
[2020-09-05] MEDS: Insulin Lispro 100 UNIT/ML 3 ML VIAL SUBCUT ×3 (08:52→21:18)
[2020-09-05 08:53] VITALS: BP 133/79; PULSE 84
[2020-09-05] MEDS: Aspirin Enteric Coated 81 MG TABLET.DR PO (08:53)
[2020-09-05] MEDS: Cholecalciferol (Vitamin D3) 25 MCG TABLET PO (08:53)
[2020-09-05] MEDS: Insulin Glargine,Hum.rec.anlog 100 UNIT/ML 10 ML VIAL 56 UNIT SUBCUT (08:53)
[2020-09-05] MEDS: FLUoxetine HCl 10 MG CAPSULE PO (08:53)
[2020-09-05] MEDS: bisacodyL 5 MG TABLET.DR PO ×2 (08:53→21:17)
[2020-09-05] MEDS: 0.9 % Sodium Chloride Flush 3 ML SYRINGE IVFLUSH ×3 (09:01→21:25)
--- NOTE | 2020-09-05 09:28 | PC.NURSE ---
called for report
[2020-09-05 11:07] VITALS: BP 112/67; PULSE 96; RESP 18; TEMP 36.7; O2SAT 96
--- NOTE | 2020-09-05 11:27 | MHC.CM.PN ---
PATIENT LIVES ALONE. 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 THIS SERVICE IS PROVIDED THROUGH HIS MANAGED INSURANCE PATIENT HAS [employer] ON MONDAYS AND FRIDAYS. HE IS ELIGIBLE FOR 9 HOURS EACH WEEK, BUT FEELS HE ONLY NEEDS 4-6. THIS SPUDDER CALLED [facility] @ [phone] TO INFORM THEM THAT PATIENT WILL NEED BE ABLE TO KEEP HIS SCHEDULED 09/06/20 APPOINTMENT. THIS ONE PER PATIENT REQUEST. PATIENT IS AGREEABLE TO ASSIGNING HCP AGENT. HE NAMES HIS BROTHER NERI AND A COPY IS IN CHART. IMM 09/05 IN CHART.
[2020-09-05 11:33] LABS: Glucose, Whole Blood 223 mg/dL (60-115)
[2020-09-05 11:53] LABS: Glucose, Whole Blood 315 mg/dL (60-115)
--- NOTE | 2020-09-05 11:56 | P.CNID_ITS ---
History of Present Illness Data of Consult Service Date: 09/05/20 Requesting physician: Troy Terrazas Primary Care Provider: Virginie Liao MD [facility] Reason for consult: diabetic foot infection He presents to hospital with worsening right great toe infection. He said he had callus right great toe about a month ago and called [facility]. He mentioned that he has not had an appointment with surgeon at [facility] yet He has malodor as well He has diabetes and neuropathy Review of Systems Review of Systems: Yes all other systems are reviewed and are negative Constitutional: Constitutional: Reports weakness Neurologic: Reports weakness PMFSH Past Medical History Medical History (Updated 09/26/20 @ 13:04 by Tyrell Gomez MD) Back pain Drug-induced thrombocytopenia Hyperlipidemia Hypertension IDDM (insulin dependent diabetes mellitus) MGUS (monoclonal gammopathy of unknown significance) Neck pain Peripheral neuropathy Psychiatric diagnosis Sleep apnea Family History Family history: reviewed and not pertinent Surgical History Surgical History H/O colonoscopy Hx of angioplasty Hx of appendectomy Hx of foot surgery Hx of tonsillectomy Hx of umbilical hernia repair Social History Social History Household Members: None Housing: Apartment Alcohol intake: never Smoking Status: Former smoker Second Hand Smoke Exposure: No service: Yes Current occupational status: unemployed Meds Allergies Allergy/AdvReac Type Severity Reaction Status Date / Time vancomycin AdvReac Severe thrombocyto Verified 09/26/20 12:47 penia Home Medications Medication Instructions Recorded Confirmed Type Combivent Respimat 2 puff INHALATION Q6H PRN 07/17/20 09/04/20 History Tresiba FlexTouch U-100 80 unit SUBCUT QAM 07/17/20 09/04/20 History Victoza 3-Chet 1.8 mg SUBCUT DAILY 07/17/20 09/04/20 History aspirin 81 mg PO DAILY 07/17/20 09/04/20 History gabapentin 600 mg PO BEDTIME 07/17/20 09/04/20 History lisinopril 5 mg PO DAILY 07/17/20 09/04/20 History metformin 1,000 mg PO BID 07/17/20 09/04/20 History Tresiba FlexTouch U-100 65 unit SUBCUT BEDTIME 09/04/20 09/04/20 History bisacodyl 5 mg PO BID 09/04/20 09/04/20 History cholecalciferol (vitamin D3) 25 mcg PO DAILY 09/04/20 09/04/20 History fluoxetine 10 mg PO DAILY 09/04/20 09/04/20 History Physical Exam Vital Signs: Vital Signs: Last Vital Signs Temp 98.1 F 09/05/20 11:07 Pulse 96 09/05/20 11:07 Resp 18 09/05/20 11:07 BP 112/67 09/05/20 11:07 Pulse Ox 96 09/05/20 11:07 Body Mass Index 37.2 Const: General: cooperative HENMT: Mouth: Normal oral and palatal mucosa present Eyes: General: appearance normal, both eyes and all related structures Resp: Effort & Inspection: normal respiratory effort Cardio: Rate: regular rate Rhythm: regular rhythm GI: Palpation (GI): nontender Skin: General skin exam: no rashes or lesions noted Extrem: Other: right great toe callus,swollen and reddened up foot Assessment and Plan (1) Sepsis: Qualifiers: Sepsis acute organ dysfunction status: without acute organ dysfunction Sepsis type: sepsis due to unspecified organism Qualified Code(s): A41.9 - Sepsis, unspecified organism Status: Acute (2) Diabetic foot ulcer: Qualifiers: Diabetes mellitus type: type 2 Diabetic foot ulcer location: toe Laterality: right Non-pressure ulcer stage: unspecified non-pressure ulcer stage Qualified Code(s): E11.621 - Type 2 diabetes mellitus with foot ulcer; L97.519 - Non-pressure chronic ulcer of other part of right foot with unspecified severity Status: Acute Continue Vancomycin and Zosyn Surgery or Vascular evaluation MRI,is going down now (3) Cellulitis: Qualifiers: Laterality: right Site of cellulitis: extremity Site of cellulitis of extremity: lower extremity Qualified Code(s): L03.115 - Cellulitis of right lower limb Status: Acute Results Labs CBC & Chem 7: 09/26/20 05:47 09/24/20 06:50 Labs: Short CBC 09/04/20 Range/Units 14:46 WBC 12.1 H (4.8-10.8) X10*3/uL Hgb 12.8 L (14.0-18.0) g/dl Hct 35.8 L (42-52) % Plt Count 214 D (160-400) X10*3/uL BMP 09/04/20 14:46 Sodium 131 L Potassium 4.4 Chloride 98 Carbon Dioxide 22 BUN 27 H Creatinine 1.24 Calcium 8.3 L D Liver Function 09/04/20 Range/Units 14:46 Total Bilirubin 1.6 H (0.0-1.0) mg/dL Direct Bilirubin 0.9 H (0.0-0.5) mg/dL AST 36 D (5-37) U/L ALT 61 H (0-40) U/L Alkaline Phosphatase 134 H D (39-117) U/L Albumin 3.7 (3.5-5.0) g/dL Urine 09/04/20 Range/Units 20:00 Urine Color DARK YELLOW Urine Appearance HAZY Urine pH 5.5 (5.0-8.0) Ur Specific [place] >= 1.030 H (1.005-1.025) Urine Protein TRACE (NEG-TRACE) MG/DL Urine Glucose (UA) 100 H (NEG) MG/DL Microbiology Microbiology Results: Microbiology 09/04/20 14:45 Blood - Venous Blood Culture - Preliminary 09/04/20 15:00 Blood - Venous Blood Culture - Preliminary
--- NOTE | 2020-09-05 12:35 | US_ITS ---
EXAMINATION: US MAGNUS AND DUPLEX DOPPLER ARTERIAL EVALUATION OF THE LOWER EXTREMITIES BILATERALLY CLINICAL INFORMATION: Nonhealing ulcer. COMPARISON: 10/12/2019 TECHNIQUE: ABIs and real-time ultrasound and Doppler techniques (integrating B-mode 2D vascular images, Doppler spectral analysis and color flow Doppler imaging) were utilized to interrogate the lower extremities bilaterally. FINDINGS: Right MAGNUS: 1.06 normal. Left MAGNUS: 1.47 which is abnormally elevated and likely related to calcified vessels with difficulty compressing. Right lower extremity: The common femoral artery has a triphasic waveform with peak systolic velocity of 123 cm/s. The right profunda femoral artery has a triphasic waveform with peak systolic velocity of 94 cm/s. The proximal superficial femoral artery has a triphasic waveform with peak systolic velocity of 76 cm/s. The mid superficial femoral artery has a triphasic waveform with peak systolic velocity of 72 cm/s. The distal superficial femoral artery has a triphasic waveform with peak systolic velocity of 94 cm/s. The popliteal artery has a triphasic waveform with peak systolic velocity of 80 cm/s. No flow is identified within the posterior tibial and peroneal arteries but pulses were audible with the continuous wave Doppler. Left lower extremity: The common femoral artery has a triphasic waveform with peak systolic velocity of 78 cm/s. The profunda femoral artery has a triphasic waveform with peak systolic velocity of 65 cm/s. The proximal superficial femoral artery has a triphasic waveform with peak systolic velocity of 79 cm/s. The mid superficial femoral artery has a triphasic waveform with peak systolic velocity of 66 cm/s. The distal superficial femoral artery has a triphasic waveform with peak systolic velocity 56 cm/s. The popliteal artery has a triphasic waveform with peak systolic velocity of 60 cm/s. [id number] arterial waveforms were not obtainable, however, continuous wave Doppler was audible. US/US arterial duplex LE BI IMPRESSION: Right lower extremity: Triphasic waveforms down to the popliteal arteries with normal MAGNUS. Left lower extremity: Triphasic waveform down to the popliteal artery. Abnormally elevated MAGNUS likely related to calcified vessel with inability to compress.
[2020-09-05 14:41] LABS: Glucose, Whole Blood 181 mg/dL (60-115)
--- NOTE | 2020-09-05 14:43 | PM.EVENT ---
Event Note Date of Service: 09/05/20 Event Note: Full consult dictated. Awaiting arterial testing.
[2020-09-05 15:35] VITALS: BP 106/78; PULSE 99; RESP 18; TEMP 38.7; O2SAT 96
[2020-09-05] MEDS: Acetaminophen 325 MG TABLET 650 MG PO (16:03)
[2020-09-05] MEDS: Clopidogrel Bisulfate 75 MG TABLET PO (16:04)
[2020-09-05 16:32] LABS: Glucose, Whole Blood 295 mg/dL (60-115)
--- NOTE | 2020-09-05 16:51 | P.PNIM_ITS ---
Subjective Subjective Date of Service: 09/07/20 Interval History: Patient admitted for right big toe infection, patient complaining of cough that is causing back ache and abdominal discomfort, denies fever chills, denies shortness of breath. Review of Systems General no headache, no dizziness, no fever chills. CVS no chest pain, no palpitation. Respiratory dry cough, no sputum production no respiratory distress. Gastrointestinal no nausea, no vomiting, abdominal pain with coughing Physical Exam Vital Signs: Vital Signs: Last Vital Signs Temp 101.6 F H 09/05/20 15:35 Pulse 99 09/05/20 15:35 Resp 18 09/05/20 15:35 BP 106/78 09/05/20 15:35 Pulse Ox 96 09/05/20 15:35 Body Mass Index 37.2 General in no acute distress Neck is supple no JVD Lungs coarse breath sound at bases, no wheeze, no rhonchi CVS regular rate rhythm Abdominal obese soft nontender Extremities right toe with purplish discoloration , swelling, erythema, wound at lateral side of right toe with serous drainage Objective Data Current Medications Generic Name Dose Route Start Last Admin Trade Name Freq PRN Reason Stop Dose Admin Acetaminophen 650 mg 09/05/20 06:55 09/05/20 16:03 Acetaminophen 325 Mg Tablet PO 650 mg Q6H PRN Administration Pain, Mild (Pain Scale 1-3) Aspirin 81 mg 09/05/20 09:00 09/05/20 08:53 Aspirin Enteric Coated 81 Mg Tablet. PO 81 mg DAILY TJ Administration Atorvastatin Calcium 40 mg 09/04/20 21:00 09/04/20 21:28 Atorvastatin Calcium 40 Mg Tablet PO 40 mg BEDTIME TJ Administration Benzonatate 200 mg 09/05/20 03:48 09/05/20 04:24 Benzonatate 100 Mg Capsule PO 200 mg TID PRN Administration Cough Bisacodyl 5 mg 09/04/20 21:00 09/05/20 08:53 Bisacodyl 5 Mg Tablet. PO 5 mg BID TJ Administration Clopidogrel Bisulfate 75 mg 09/05/20 15:50 09/05/20 16:04 Clopidogrel Bisulfate 75 Mg Tablet PO 75 mg DAILY TJ Administration Docusate Sodium 100 mg 09/05/20 06:55 Docusate Sodium 100 Mg Capsule PO DAILY PRN Constipation Fluoxetine HCl 10 mg 09/05/20 09:00 09/05/20 08:53 Fluoxetine Hcl 10 Mg Capsule PO 10 mg DAILY TJ Administration Gabapentin 600 mg 09/04/20 21:00 09/04/20 21:29 Gabapentin 600 Mg Tablet PO 600 mg BEDTIME TJ Administration Guaifenesin/Dextromethorphan 5 ml 09/04/20 22:28 09/04/20 23:08 Guaifenesin Dm 100/10/5 Ml 5 Ml Syrup PO 5 ml Q4H PRN Administration cough Heparin Sodium (Porcine) 5,000 unit 09/05/20 06:45 09/05/20 07:11 Heparin Sodium,Porcine 5,000 Unit/Ml Vial SUBCUT Not Given Q12H TJ Piperacillin Sod/Tazobactam 50 mls @ 100 mls/hr 09/04/20 21:00 09/05/20 16:15 Sod 3.375 gm/ Sodium Chloride IV 100 mls/hr Q6H TJ Administration Insulin Glargine 56 unit 09/05/20 09:00 09/05/20 08:53 Insulin Glargine,Hum.Rec.Anlog 100 Unit/Ml 10 Ml Vial SUBCUT 56 unit DAILY TJ Administration Insulin Glargine 45 unit 09/04/20 22:30 09/04/20 23:08 Insulin Glargine,Hum.Rec.Anlog 100 Unit/Ml 10 Ml Vial SUBCUT 45 unit BEDTIME TJ Administration Insulin Human Lispro 0 unit 09/05/20 07:30 09/05/20 14:41 Insulin Lispro 100 Unit/Ml 3 Ml Vial SUBCUT Not Given QIDACHS [facility] Protocol Lisinopril 5 mg 09/05/20 09:00 09/05/20 08:53 Lisinopril 5 Mg Tablet PO 5 mg DAILY TJ Administration Protocol Ondansetron HCl 4 mg 09/05/20 06:55 Ondansetron Hcl 4 Mg/2 Ml Vial IVPUSH Q8H PRN Nausea and Vomiting Pharmacy Consult 1 each 09/04/20 14:11 Consult Rx Perform Med Rec MISCELLANE ONCE PRN Consult order Pharmacy Consult 1 each 09/04/20 17:18 Consult Rx Vancomycin Dosing MISCELLANE DAILY PRN Consult order Pharmacy Consult 1 each 09/04/20 20:52 Consult Rx Vancomycin Dosing MISCELLANE DAILY PRN Consult order Sodium Chloride 3 ml 09/05/20 08:00 09/05/20 09:01 0.9 % Sodium Chloride Flush 3 Ml Syringe IVFLUSH 3 ml QSHIFT TJ Administration Vancomycin HCl 750 mg 09/05/20 06:00 09/05/20 06:01 Vancomycin Hcl 750 Mg/15 Ml Vial IV 750 mg Q12H TJ Administration Vitamin D 25 mcg 09/05/20 09:00 09/05/20 08:53 Cholecalciferol (Vitamin D3) 25 Mcg Tablet PO 25 mcg DAILY TJ Administration Labs CBC & Chem 7: 09/06/20 05:09 09/07/20 07:56 Microbiology Microbiology Results: Microbiology 09/04/20 15:00 Blood - Venous Blood Culture - Preliminary 09/04/20 14:45 Blood - Venous Blood Culture - Preliminary Assessment and Plan (1) Cellulitis: Status: Acute (2) Necrosis of toe: Status: Acute (3) Elevated erythrocyte sedimentation rate: Status: Acute Assessment and Plan: 60-year-old male with past medical history of diabetes as well as peripheral neuropathy who presents to the hospital with complaints of right toe wound, drainage # sepsis due to diabetic foot ulcer patient has tachycardia, leukocytosis, on admission, now noted to have a fever 101.6 elevated ESR, CRP, indicative of possible osteomyelitis, continue IV vancomycin and Zosyn day 1, follow blood culture MRI foot obtained report pending to rule out osteomyelitis, seen by Dr. Figueroa he is awaiting arterial testing, ID agree with above antibiotic. # hypomagnesemia Seems chronic, received IV magnesium, repeat magnesium 2 # diabetes mellitus - blood sugars elevated, continue Lantus b.i.d., added low-dose sliding scale insulin and diabetic diet follow blood sugar closely and adjust medication. Metformin on hold Continue Neurontin # hypertension - BP stable continue lisinopril # cough - no sputum production, no increased dyspnea, COVID-19 negative, chest x-ray negative for any evidence of pneumonia, continue inhalers # hyperlipidemia continue statin DVT prophylaxis: Heparin subQ
[2020-09-05] MEDS: Heparin Sodium,Porcine 5,000 UNIT/ML VIAL 5000 UNIT SUBCUT (17:54)
[2020-09-05] MEDS: TiZANidine HCL 4 MG TABLET PO (17:54)
[2020-09-05] MEDS: guaiFENesin DM 100/10/5 ML 5 ML SYRUP 10 ML PO (18:26)
--- NOTE | 2020-09-05 19:14 | CONS_ITS ---
DATE OF SERVICE: 09/05/2020 REASON FOR CONSULTATION: Right great toe nonhealing ulcer. HISTORY OF PRESENT ILLNESS: This is a 60-year-old gentleman well known to me with a history of diabetes and peripheral vascular disease. He has been noticing some skin color changes over the last several days. He noticed malodorous discharge and it started to get significantly red. He subsequently came to the hospital and was started on IV antibiotics. He now presents to us for vascular evaluation. PAST MEDICAL HISTORY: Significant for back pain, hypertension, hyperlipidemia, diabetes, peripheral neuropathy, and sleep apnea. PAST SURGICAL HISTORY: Includes colonoscopy, angioplasty, appendectomy, foot surgery, tonsillectomy, and umbilical hernia repair. MEDICATIONS: Medication list was reviewed per nursing MAR. ALLERGIES: HE HAS NO KNOWN DRUG ALLERGIES. SOCIAL HISTORY: He is a nondrinker. Former smoker. No use of illegal drugs. FAMILY HISTORY: No history of advanced coronary artery disease or peripheral vascular disease. REVIEW OF SYSTEMS: 13-point review of systems was performed. At the current time, denies any headache, dizziness, nausea, vomiting, diarrhea, or shortness of breath. He does note right foot pain, especially in the great toe. PHYSICAL EXAMINATION: HEAD AND NECK: Demonstrates no bruits. CHEST: Moving air bilaterally. CARDIAC: Positive S1-S2. ABDOMEN: Soft. EXTREMITIES: Upper extremities have good radial and ulnar pulses. Lower extremities are warm with good capillary refill. Right great toe, significant cellulitis associated with it. Skin color changes and a nonhealing ulcer with some serous drainage on the lateral aspect of that great toe. LABORATORY DATA: Last white count is 12.1, and coags are within normal limits and he has a GFR of 59. He has a foot MRI results of which are pending and noninvasive arterial testing, although final results pending was performed today and his prior history does include history of significant peripheral vascular disease. Noninvasive testing demonstrates MAGNUS on the right of 0.77 and on the left of 1.46 on noninvasive testing. There is concern on the right that there is no flow through the posterior tibial arteries. IMPRESSION: Nonhealing right great toe. We will plan for endovascular intervention for tomorrow of the right lower extremity. This was discussed in detail with the patient. He understood and consented. MD TIM Trivedi/SANTHOSH / [phone]
[2020-09-05 20:43] LABS: Glucose, Whole Blood 290 mg/dL (60-115)
--- NOTE | 2020-09-05 20:52 | MR_ITS ---
EXAMINATION: MRI FOOT WITHOUT/WITH CONTRAST, RIGHT CLINICAL INFORMATION: Diabetic foot ulcer. Evaluate for osteomyelitis. COMPARISON: MRI of the foot from 07/28/2018. Radiographs of the foot from 09/04/2020. TECHNIQUE: MR imaging of the right foot was performed using standard sequences on a high-field 1.5 Freda magnet without and with intravenous administration of 10 mL of Gadavist. FINDINGS: Alignment is normal at the Lisfranc, metatarsophalangeal and interphalangeal joints. No bone erosions or periostitis. No fracture or subluxation. Diffuse soft tissue edema of the foot. There is a reticular pattern of contrast enhancement of subcutaneous tissues of the great toe and dorsal foot. This could be a manifestation of cellulitis. No focal rim-enhancing fluid collections; no abscess or mass. There appears to be a nonenhancing wound/ulcer medial to the region of the great toe interphalangeal joint and distal phalanx. On STIR images, edema-like signal is observed in the distal phalanx of the great toe. There is minimal edema-like signal in the proximal phalanx. However, on the T1-weighted images, there is no confluent marrow replacement. The fatty marrow signal is well-preserved on the T1-weighted images, which argues against osteomyelitis. There is minimal marrow enhancement in the great toe distal phalanx on postcontrast images. Overall, constellation findings favor presence of reactive edema/hyperemia in phalanges of the great toe. There are osteophytes of the degenerated great toe metatarsophalangeal joint. The medial sesamoid has a bipartite configuration. No evidence of hyperenhancing synovium in any of the joints. The muscles of the examined foot are severely atrophied and fatty replaced, and have hyperintense signal on fat-suppressed fluid sensitive sequences. These findings are likely sequela of chronic diabetic neuropathy with myopathy. No evidence of tendon tear or tenosynovitis. MR/MR foot RT wo/w con IMPRESSION: * The edema and subcutaneous tissue enhancement of the foot is suggestive of cellulitis. No soft tissue abscess. * There appears to be a superficial wound medial to the region of the great toe interphalangeal joint and distal phalanx. Findings are consistent with mild reactive hyperemia/edema involving phalanges of the great toe. These phalanges have preserved fatty marrow signal on the T1-weighted images. There is no convincing osteomyelitis. * Severe atrophy and fatty replacement of muscles of the foot, which can be a sequela of chronic diabetic neuropathy.
[2020-09-05] MEDS: Gabapentin 600 MG TABLET PO (21:17)
[2020-09-05] MEDS: Atorvastatin Calcium 40 MG TABLET PO (21:17)
[2020-09-05] MEDS: Insulin Glargine,Hum.rec.anlog 100 UNIT/ML 10 ML VIAL 45 UNIT SUBCUT (21:18)
[2020-09-05 23:49] VITALS: BP 95/48; PULSE 85; RESP 18; TEMP 37.7; O2SAT 95
[2020-09-06] VITALS (16 sets, daily range): BP systolic 97–153; BP diastolic 52–80; PULSE 76–101; RESP 16–24; TEMP 36.3–38.4; O2SAT 90–100; BMI 37.2
[2020-09-06] MEDS: Piperacillin Sodium/Tazobactam 3.375 GM in 0.9 % Sodium Chloride 50 ML IV ×4 (02:57→20:45)
[2020-09-06] MEDS: Aspirin Enteric Coated 81 MG TABLET.DR PO (05:34)
[2020-09-06] MEDS: Clopidogrel Bisulfate 75 MG TABLET PO (05:35)
[2020-09-06] MEDS: Benzonatate 100 MG CAPSULE 200 MG PO ×3 (05:35→20:44)
[2020-09-06] MEDS: FLUoxetine HCl 10 MG CAPSULE PO (05:35)
[2020-09-06] MEDS: bisacodyL 5 MG TABLET.DR PO ×2 (05:35→20:44)
[2020-09-06] MEDS: Cholecalciferol (Vitamin D3) 25 MCG TABLET PO (05:35)
[2020-09-06 05:50] LABS: Basophils Absolute Auto 0.1 X10*3/uL (0.0-0.2); Basophils Percent Auto 0.5 % (0-2); Eosinophils Absolute Auto 0.2 X10*3/uL (0.0-0.4); Eosinophils Percent Auto 1.6 % (0-4); Hematocrit 32.9 % (42-52); Hemoglobin 11.8 g/dl (14.0-18.0); Imm Gran Abs Auto 0.06 X10*3/uL (0.00-0.03); Imm Gran Pct Auto 0.6 % (0.0-0.4); Lymphocytes Absolute Auto 1.6 X10*3/uL (1.2-4.9); Lymphocytes Percent Auto 15.6 % (20-40); MANUAL DIFF FLAG NO; Mean Corpuscular HGB Conc 35.9 g/dl (31.0-36.0); Mean Corpuscular Hemoglobin 33.7 pg (27.0-33.0); Mean Platelet Volume 10.8 fL (9.4-12.4); Monocytes Absolute Auto 1.4 X10*3/uL (0.1-1.2); Neutrophils Absolute Auto 7.2 X10*3/uL (2.0-8.3); Neutrophils Percent Auto 68.7 % (45-73); Platelet Count 201 X10*3/uL (160-400); Red Cell Distribution Width 11.1 % (11.0-16.0); White Blood Count 10.4 X10*3/uL (4.8-10.8)
[2020-09-06 06:04] LABS: Glucose, Whole Blood 164 mg/dL (60-115)
[2020-09-06 06:24] LABS: Vancomycin Trough 7.8 mcg/mL (10.0-20.0)
[2020-09-06 06:33] LABS: Anion Gap 16 (12-20); Blood Urea Nitrogen 28 mg/dL (9-16); Calcium 7.6 mg/dL (8.4-10.2); Carbon Dioxide 20 mmol/L (22-29); Chloride 101 mmol/L (96-108); Creatinine Clr Calc Pharmacy 82.2; Estimated Glomerular Filt Rate 53; Glucose Random 168 mg/dL (60-115); Potassium 4.1 mmol/l (3.3-5.1); Sodium 133 mmol/L (135-145)
--- NOTE | 2020-09-06 09:47 | P.EN_ITS ---
Event Note Date of Service: 09/06/20 Event Note: patient is s/p angiogram and plast of right PT artery. Adequate f low for healing. Will allow toe inflammation to decrease and demarcate.
--- NOTE | 2020-09-06 09:47 | PM.EVENT ---
Event Note Date of Service: 09/06/20 Event Note: patient is s/p angiogram and plast of right PT artery. Adequate flow for healing. Will allow toe inflammation to decrease and demarcate.
--- NOTE | 2020-09-06 10:05 | OP_ITS ---
SURGEON: Cameron Figueroa MD INDICATIONS: Ramy is a 60-year-old gentleman with a history of diabetes and nonhealing ulcer. He now presents for endovascular intervention. Risks, benefits, and complications were discussed in detail with the patient, the patient understood and consented. PREOPERATIVE DIAGNOSIS: POSTOPERATIVE DIAGNOSIS: PROCEDURE PERFORMED: 1. Ultrasound-guided left common femoral access. 2. Aortogram with right lower extremity runoff. 3. Plasty of posterior tibial artery. ESTIMATED BLOOD LOSS: Minimal. COMPLICATIONS: ANESTHESIA: Local with moderate conscious sedation performed by ct for a total of 44 minutes. ASSISTANTS: SPECIMENS: None. PRE-PROCEDURE DIAGNOSIS: Atherosclerosis with nonhealing right foot ulcer. POSTPROCEDURE DIAGNOSIS: Atherosclerosis with nonhealing right foot ulcer. DESCRIPTION OF PROCEDURE: The patient was brought to the angiography suite, prior to which a time-out was called for patient identification and site verification. Bilateral groins were prepped and draped in standard surgical fashion. Under ultrasound guidance, left common femoral was accessed with micropuncture needle, wire, subsequent 4-Colombian sheath. Once this was accomplished, a flush catheter was brought up to the level of the aorta. Aortogram was then undertaken. We brought the catheter down to the iliac bifurcation, imaged the iliacs and then the catheter was brought up and over into the right SFA through which runoff study was then undertaken. Once this was accomplished, we exchanged out for 0.035 Glidewire Advantage, advanced this all the way down to the popliteal artery and then we brought in a TrailBlazer catheter, through which we then took closer imaging of the below-knee vessels with multiple orthogonal views. Once this was done, we advanced the wire into the posterior tibial artery. We brought it down as far as possible. We did get into a small dissection plane. At this point up and over 6-Colombian sheath was then placed, 5000 units of systemic heparin was administered and we tried to bring the wire all the way down. There appeared to be no good target, the area that was more proximal. This was plastied out with a 3 x 20 balloon with multiple insufflations. Once this was all accomplished, catheter, wire, sheath were removed. StarClose closure device was deployed. The patient tolerated the procedure well. INTERPRETATION OF FILMS: 1. Ultrasound guidance demonstrated appropriate puncture. 2. Aortogram demonstrated good flow through the aorta and down into the iliacs. 3. Right lower extremity study demonstrated good flow through the profunda, SFA all the way down into the popliteal, below knee vessels anterior tibial and peroneal seems to go all the way down to the foot. The posterior tibial occluded in the midportion of it. Post plasty demonstrated a little improvement to a further distance, but it still ended in a blind end. CONCLUSION: 1. Successful angiogram. 2. Successful plasty of posterior tibial artery. I do believe that the patient does have adequate runoff in order to heal this foot ulcer. The patient will require continued aspirin and Plavix. DRAINS: None. MD TIM Trivedi/SANTHOSH / [phone]
[2020-09-06] MEDS: Lidocaine HCl 1 % MPF 5 ML VIAL 10 ML SUBCUT (10:53)
[2020-09-06] MEDS: iohexoL 300 MG/ML 100 ML INFUS..BTL IV (10:54)
[2020-09-06 11:46] LABS: Glucose, Whole Blood 210 mg/dL (60-115)
[2020-09-06] MEDS: Insulin Lispro 100 UNIT/ML 3 ML VIAL SUBCUT ×3 (12:12→20:55)
[2020-09-06] MEDS: vancomycin HCL 1,000 MG in 0.9 % Sodium Chloride 250 ML 270 MG IV ×2 (12:14→23:11)
--- NOTE | 2020-09-06 14:12 | MHC.CM.PN ---
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 S/P ULTRA SOUND GUIDED LEFT COMMON FEMEORAL ACCESS, AORTGRAM WITH RIGHT LOWER EXTREMITY RUNOFF AND PLASTY OF POSTERIOR TIBIAL ARTERY PER HOSPITALIST PATIENT WILL BE HERE OVER THE WEEKEND , AND VASCULAR TO REVIEW AND SEE IF FURTHER INTERVENTION IS NEEDED ON WEDNESDAY DISCHARGED PLAN-INITIALLY ANTICIPATED TO BE DISCHARGED HOME ALONE WITH NO SERVICES . (HE WAS OFFERED BUT DECLINED), HE USES A [employer] FOR MOBILITY TRANSPORTATION HE USES [employer] FOR TRANSPORT(THIS SERVICE IS PROVIDED THROUGH HIS MANAGED INSURANCE HAS A BUSINESS PERFORMANCE SPECIALIST SERVICES ON WEDNESDAY AND FRIDAYS 9 HRS EACH WEEK [employer] WAS COMPETED NAMING SHIRA HE AND A COPY IS IN THE CHART BEAUTY THERAPIST TO REASSESS ON FOR ANY CHANGES IN HIS DISCHARGE NEEDS OR PHYSICIANS REQUEST FOR ANY FOLLOW UP APPOINTMENTS
--- NOTE | 2020-09-06 14:38 | PC.NURSE ---
1100 returned to floor from PACU. Dermabond intact on left groin. No bleeding or hematoma noted. VSS. Denies pain
--- NOTE | 2020-09-06 15:04 | P.PNIM_ITS ---
Subjective Subjective Date of Service: 09/06/20 Interval History: Patient admitted for right big toe infection, reported some pain Review of Systems General no headache, no dizziness, no fever chills. CVS no chest pain, no palpitation. Respiratory dry cough, no sputum production no respiratory distress. Gastrointestinal no nausea, no vomiting, abdominal pain with coughing Constitutional Constitutional: Reports weakness Neurologic Neurologic: Reports weakness Physical Exam Vital Signs: Vital Signs: Last Vital Signs Temp 98.4 F 09/06/20 11:10 Pulse 82 09/06/20 14:00 Resp 18 09/06/20 11:10 BP 121/70 09/06/20 14:00 Pulse Ox 97 09/06/20 11:10 Body Mass Index 37.2 Const: General: cooperative and no acute distress Orientation/consciousness: patient oriented x3 Eyes: General: appearance normal, both eyes and all related structures Resp: Effort & Inspection: normal respiratory effort and able to speak in complete sentences Cardio: Rate: regular rate Rhythm: regular rhythm GI: Palpation (GI): Soft to palpation Auscultation: normal bowel sounds Skin: General skin exam: no rashes or lesions noted Neuro: General: patient oriented x3 Cognition (Neuro): normal cognition Extrem: Other: Right toe has discoloration, purple to blue, has a wound at the base of large right toe that is necrotic, there is swelling, erythema, warmth, unable to elicit any tenderness General: Yes normal to inspection Objective Data Current Medications Generic Name Dose Route Start Last Admin Trade Name Freq PRN Reason Stop Dose Admin Acetaminophen 650 mg 09/05/20 06:55 09/05/20 16:03 Acetaminophen 325 Mg Tablet PO 650 mg Q6H PRN Administration Pain, Mild (Pain Scale 1-3) Aspirin 81 mg 09/05/20 09:00 09/06/20 05:34 Aspirin Enteric Coated 81 Mg Tablet. PO 81 mg DAILY TJ Administration Atorvastatin Calcium 40 mg 09/04/20 21:00 09/05/20 21:17 Atorvastatin Calcium 40 Mg Tablet PO 40 mg BEDTIME TJ Administration Benzonatate 200 mg 09/05/20 21:00 09/06/20 05:35 Benzonatate 100 Mg Capsule PO 200 mg TID TJ Administration Bisacodyl 5 mg 09/04/20 21:00 09/06/20 05:35 Bisacodyl 5 Mg Tablet. PO 5 mg BID TJ Administration Clopidogrel Bisulfate 75 mg 09/05/20 15:50 09/06/20 05:35 Clopidogrel Bisulfate 75 Mg Tablet PO 75 mg DAILY TJ Administration Docusate Sodium 100 mg 09/05/20 06:55 Docusate Sodium 100 Mg Capsule PO DAILY PRN Constipation Fluoxetine HCl 10 mg 09/05/20 09:00 09/06/20 05:35 Fluoxetine Hcl 10 Mg Capsule PO 10 mg DAILY TJ Administration Gabapentin 600 mg 09/04/20 21:00 09/05/20 21:17 Gabapentin 600 Mg Tablet PO 600 mg BEDTIME TJ Administration Guaifenesin/Dextromethorphan 10 ml 09/05/20 17:19 09/05/20 18:26 Guaifenesin Dm 100/10/5 Ml 5 Ml Syrup PO 10 ml Q4H PRN Administration cough Heparin Sodium (Porcine) 5,000 unit 09/05/20 06:45 09/06/20 05:37 Heparin Sodium,Porcine 5,000 Unit/Ml Vial SUBCUT Not Given Q12H TJ Piperacillin Sod/Tazobactam 50 mls @ 100 mls/hr 09/04/20 21:00 09/06/20 11:51 Sod 3.375 gm/ Sodium Chloride IV Infused Q6H TJ Infusion Vancomycin HCl 1,000 mg/ 270 mls @ 270 mls/hr 09/06/20 12:00 09/06/20 13:55 Sodium Chloride IV Infused Q12H [facility] Infusion Insulin Glargine 56 unit 09/05/20 09:00 09/06/20 05:38 Insulin Glargine,Hum.Rec.Anlog 100 Unit/Ml 10 Ml Vial SUBCUT Not Given DAILY [facility] Insulin Glargine 45 unit 09/04/20 22:30 09/05/20 21:18 Insulin Glargine,Hum.Rec.Anlog 100 Unit/Ml 10 Ml Vial SUBCUT 45 unit BEDTIME [facility] Administration Insulin Human Lispro 0 unit 09/05/20 07:30 09/06/20 12:12 Insulin Lispro 100 Unit/Ml 3 Ml Vial SUBCUT 4 unit QIDACHS [facility] Administration Protocol Lisinopril 5 mg 09/05/20 09:00 09/06/20 05:34 Lisinopril 5 Mg Tablet PO 5 mg DAILY TJ Administration Protocol Ondansetron HCl 4 mg 09/05/20 06:55 Ondansetron Hcl 4 Mg/2 Ml Vial IVPUSH Q8H PRN Nausea and Vomiting Pharmacy Consult 1 each 09/04/20 14:11 Consult Rx Perform Med Rec MISCELLANE ONCE PRN Consult order Pharmacy Consult 1 each 09/04/20 17:18 Consult Rx Vancomycin Dosing MISCELLANE DAILY PRN Consult order Pharmacy Consult 1 each 09/04/20 20:52 Consult Rx Vancomycin Dosing MISCELLANE DAILY PRN Consult order Sodium Chloride 3 ml 09/05/20 08:00 09/06/20 11:49 0.9 % Sodium Chloride Flush 3 Ml Syringe IVFLUSH Not Given QSHIFT TJ Vitamin D 25 mcg 09/05/20 09:00 09/06/20 05:35 Cholecalciferol (Vitamin D3) 25 Mcg Tablet PO 25 mcg DAILY TJ Administration Labs CBC & Chem 7: 09/06/20 05:09 09/06/20 05:09 Microbiology Microbiology Results: Microbiology 09/04/20 15:00 Blood - Venous Blood Culture - Preliminary Staphylococcus aureus 09/04/20 14:45 Blood - Venous Blood Culture - Preliminary Staphylococcus aureus Assessment and Plan (1) Cellulitis: Status: Acute (2) Necrosis of toe: Status: Acute (3) Elevated erythrocyte sedimentation rate: Status: Acute Assessment and Plan: 60-year-old male with past medical history of diabetes as well as peripheral neuropathy who presents to the hospital with complaints of right toe wound, drainage Sepsis due to diabetic foot ulcer patient has tachycardia, leukocytosis, on admission, now noted to have a fever 101.6 elevated ESR, CRP, indicative of possible osteomyelitis , continue IV vancomycin and Zosyn day 2 follow blood culture MRI foot done shows no convincing evidence of osteomyelitis underwent arterial study today by vascular Hypomagnesemia replaced and resolved monitor electrolytes Diiabetes mellitus - blood sugars elevated, continue Lantus b.i.d., added low-dose sliding scale insulin and diabetic diet follow blood sugar closely and adjust medication. Metformin on hold Continue Neurontin Hypertension - BP stable continue lisinopril Cough - no sputum production, no increased dyspnea, COVID-19 negative, chest x-ray negative for any evidence of pneumonia, continue inhalers Hyperlipidemia statin DVT prophylaxis: Heparin subQ
[2020-09-06] MEDS: 0.9 % Sodium Chloride Flush 3 ML SYRINGE IVFLUSH ×2 (15:07→23:11)
--- NOTE | 2020-09-06 15:17 | PM.IDPN ---
Subjective Subjective Date of Service: 09/06/20 Interval History: he is doing about the same he has more demarcated are right great toe will Objective Data Labs CBC & Chem 7: 09/06/20 05:09 09/06/20 05:09 Labs: Laboratory Results - last 24 hr 09/05/20 09/05/20 09/06/20 16:27 20:39 05:09 WBC RBC Hgb Hct MCV MCH MCHC RDW Plt Count MPV Immature Gran % (Auto) Neut % (Auto) Lymph % (Auto) [place] % (Auto) Eos % (Auto) Baso % (Auto) Lymph # (Auto) [place] # (Auto) Eos # (Auto) Baso # (Auto) Abs Immat Gran (auto) Absolute Neuts (auto) Absolute Nucleated RBC Nucleated RBC % (auto) Sodium Potassium Chloride Carbon Dioxide Anion Gap BUN Creatinine Estim Creat Clear Calc Estimated GFR POC Glucose 295 H 290 H Random Glucose Calcium Magnesium Vancomycin Trough 7.8 L 09/06/20 09/06/20 09/06/20 05:09 05:09 06:00 WBC 10.4 RBC 3.50 L Hgb 11.8 L Hct 32.9 L MCV 94.0 MCH 33.7 H MCHC 35.9 RDW 11.1 Plt Count 201 MPV 10.8 Immature Gran % (Auto) 0.6 H Neut % (Auto) 68.7 Lymph % (Auto) 15.6 L [place] % (Auto) 13.0 H Eos % (Auto) 1.6 Baso % (Auto) 0.5 Lymph # (Auto) 1.6 [place] # (Auto) 1.4 H Eos # (Auto) 0.2 Baso # (Auto) 0.1 Abs Immat Gran (auto) 0.06 H Absolute Neuts (auto) 7.2 Absolute Nucleated RBC 0.000 Nucleated RBC % (auto) 0.0 Sodium 133 L Potassium 4.1 Chloride 101 Carbon Dioxide 20 L Anion Gap 16 BUN 28 H Creatinine 1.36 Estim Creat Clear Calc 82.2 Estimated GFR 53 POC Glucose 164 H Random Glucose 168 H Calcium 7.6 L D Magnesium 2.0 Vancomycin Trough 09/06/20 11:13 WBC RBC Hgb Hct MCV MCH MCHC RDW Plt Count MPV Immature Gran % (Auto) Neut % (Auto) Lymph % (Auto) [place] % (Auto) Eos % (Auto) Baso % (Auto) Lymph # (Auto) [place] # (Auto) Eos # (Auto) Baso # (Auto) Abs Immat Gran (auto) Absolute Neuts (auto) Absolute Nucleated RBC Nucleated RBC % (auto) Sodium Potassium Chloride Carbon Dioxide Anion Gap BUN Creatinine Estim Creat Clear Calc Estimated GFR POC Glucose 210 H Random Glucose Calcium Magnesium Vancomycin Trough Microbiology Microbiology Results: Microbiology 09/04/20 15:00 Blood - Venous Blood Culture - Preliminary Staphylococcus aureus 09/04/20 14:45 Blood - Venous Blood Culture - Preliminary Staphylococcus aureus Physical Exam Vital Signs: Vital Signs: Last Vital Signs Temp 98.4 F 09/06/20 11:10 Pulse 82 09/06/20 14:00 Resp 18 09/06/20 11:10 BP 121/70 09/06/20 14:00 Pulse Ox 97 09/06/20 11:10 Body Mass Index 37.2 Const: General: cooperative HENMT: Head: Yes normal to inspection Mouth: Normal oral and palatal mucosa present Eyes: General: appearance normal, both eyes and all related structures Resp: Effort & Inspection: normal respiratory effort Cardio: Rate: regular rate Rhythm: regular rhythm GI: Palpation (GI): Soft to palpation and not firm Skin: General skin exam: no rashes or lesions noted Extrem: Other: right great toe dark, reddened foot Assessment and Plan Assessment and plan (1) Cellulitis: Problem details: Diabetic foot infection He has multiple organisms likely He is Zosyn and Vancomycin,day 3 MRI didnt show osteomyelitis bone Status: Acute Assessment and Plan: Would have Surgery further evaluate toe ?operative need Continue Vancomycin and Piperacillin/Tazobactam No fpc antibiotics likely (2) Necrosis of toe: Status: Acute Time Spent With Patient Time: Total time spent is greater than 50% in coordination of care (as documented) at patient's floor/unit and/or counseling patient: Time with patient: 15 - 24 minutes
[2020-09-06 16:38] LABS: Glucose, Whole Blood 279 mg/dL (60-115)
[2020-09-06] MEDS: Heparin Sodium,Porcine 5,000 UNIT/ML VIAL 5000 UNIT SUBCUT (18:03)
[2020-09-06] MEDS: Acetaminophen 325 MG TABLET 650 MG PO (20:43)
[2020-09-06] MEDS: Atorvastatin Calcium 40 MG TABLET PO (20:44)
[2020-09-06] MEDS: Gabapentin 600 MG TABLET PO (20:44)
[2020-09-06] MEDS: Insulin Glargine,Hum.rec.anlog 100 UNIT/ML 10 ML VIAL 45 UNIT SUBCUT (20:45)
[2020-09-06] MEDS: guaiFENesin DM 100/10/5 ML 5 ML SYRUP 10 ML PO (21:03)
[2020-09-06] MEDS: Docusate Sodium 100 MG CAPSULE PO (21:05)
[2020-09-06 21:16] LABS: Glucose, Whole Blood 281 mg/dL (60-115)
[2020-09-07] VITALS (9 sets, daily range): BP systolic 102–146; BP diastolic 50–87; PULSE 74–105; RESP 16–28; TEMP 36.1–37.9; O2SAT 93–96
[2020-09-07] MEDS: Piperacillin Sodium/Tazobactam 3.375 GM in 0.9 % Sodium Chloride 50 ML IV ×4 (03:59→21:47)
[2020-09-07] MEDS: Heparin Sodium,Porcine 5,000 UNIT/ML VIAL 5000 UNIT SUBCUT ×2 (06:33→19:34)
[2020-09-07 07:51] LABS: Glucose, Whole Blood 171 mg/dL (60-115)
[2020-09-07] MEDS: Cholecalciferol (Vitamin D3) 25 MCG TABLET PO (08:23)
[2020-09-07] MEDS: Aspirin Enteric Coated 81 MG TABLET.DR PO (08:23)
[2020-09-07] MEDS: Clopidogrel Bisulfate 75 MG TABLET PO (08:24)
[2020-09-07] MEDS: FLUoxetine HCl 10 MG CAPSULE PO (08:24)
[2020-09-07] MEDS: bisacodyL 5 MG TABLET.DR PO ×2 (08:24→19:33)
[2020-09-07] MEDS: 0.9 % Sodium Chloride Flush 3 ML SYRINGE IVFLUSH ×2 (08:24→16:29)
[2020-09-07] MEDS: Insulin Lispro 100 UNIT/ML 3 ML VIAL SUBCUT ×4 (08:24→21:48)
[2020-09-07 09:02] LABS: Anion Gap 12 (12-20); Blood Urea Nitrogen 22 mg/dL (9-16); Calcium 7.3 mg/dL (8.4-10.2); Carbon Dioxide 24 mmol/L (22-29); Chloride 103 mmol/L (96-108); Creatinine Clr Calc Pharmacy 97.2; Estimated Glomerular Filt Rate > 60; Glucose Random 169 mg/dL (60-115); Potassium 4.2 mmol/l (3.3-5.1); Sodium 135 mmol/L (135-145)
[2020-09-07] MEDS: guaiFENesin DM 100/10/5 ML 5 ML SYRUP 10 ML PO (09:26)
[2020-09-07] MEDS: Benzonatate 100 MG CAPSULE 200 MG PO ×3 (09:26→21:49)
[2020-09-07] MEDS: Insulin Glargine,Hum.rec.anlog 100 UNIT/ML 10 ML VIAL 56 UNIT SUBCUT (09:29)
[2020-09-07 11:49] LABS: Glucose, Whole Blood 295 mg/dL (60-115)
--- NOTE | 2020-09-07 12:21 | HO.PM.IMPN ---
Subjective Subjective Date of Service: 09/07/20 Interval History: Patient admitted for right big toe infection, Patient reported weakness Review of Systems General no headache, no dizziness, no fever chills. CVS no chest pain, no palpitation. Respiratory dry cough, no sputum production no respiratory distress. Gastrointestinal no nausea, no vomiting, abdominal pain with coughing Constitutional Constitutional: Reports weakness Neurologic Neurologic: Reports weakness Physical Exam Vital Signs: Vital Signs: Last Vital Signs Temp 98.6 F 09/07/20 11:33 Pulse 99 09/07/20 11:33 Resp 19 09/07/20 11:33 BP 146/87 H 09/07/20 11:33 Pulse Ox 96 09/07/20 11:33 Body Mass Index 37.2 Const: General: cooperative and no acute distress Orientation/consciousness: patient oriented x3 Eyes: General: appearance normal, both eyes and all related structures Resp: Effort & Inspection: normal respiratory effort and able to speak in complete sentences Cardio: Rate: regular rate Rhythm: regular rhythm GI: Palpation (GI): Soft to palpation Auscultation: normal bowel sounds Skin: General skin exam: no rashes or lesions noted Neuro: General: patient oriented x3 Cognition (Neuro): normal cognition Extrem: Other: Right toe has discoloration, purple to blue, has a wound at the base of large right toe that is necrotic, there is swelling, erythema, warmth, unable to elicit any tenderness General: Yes normal to inspection Objective Data Current Medications Generic Name Dose Route Start Last Admin Trade Name Freq PRN Reason Stop Dose Admin Acetaminophen 650 mg 09/05/20 06:55 09/06/20 20:43 Acetaminophen 325 Mg Tablet PO 650 mg Q6H PRN Administration Pain, Mild (Pain Scale 1-3) Aspirin 81 mg 09/05/20 09:00 09/07/20 08:23 Aspirin Enteric Coated 81 Mg Tablet. PO 81 mg DAILY TJ Administration Atorvastatin Calcium 40 mg 09/04/20 21:00 09/06/20 20:44 Atorvastatin Calcium 40 Mg Tablet PO 40 mg BEDTIME TJ Administration Benzonatate 200 mg 09/05/20 21:00 09/07/20 09:26 Benzonatate 100 Mg Capsule PO 200 mg TID TJ Administration Bisacodyl 5 mg 09/04/20 21:00 09/07/20 08:24 Bisacodyl 5 Mg Tablet. PO 5 mg BID TJ Administration Clopidogrel Bisulfate 75 mg 09/05/20 15:50 09/07/20 08:24 Clopidogrel Bisulfate 75 Mg Tablet PO 75 mg DAILY TJ Administration Docusate Sodium 100 mg 09/05/20 06:55 09/06/20 21:05 Docusate Sodium 100 Mg Capsule PO 100 mg DAILY PRN Administration Constipation Fluoxetine HCl 10 mg 09/05/20 09:00 09/07/20 08:24 Fluoxetine Hcl 10 Mg Capsule PO 10 mg DAILY TJ Administration Gabapentin 600 mg 09/04/20 21:00 09/06/20 20:44 Gabapentin 600 Mg Tablet PO 600 mg BEDTIME TJ Administration Guaifenesin/Dextromethorphan 10 ml 09/05/20 17:19 09/07/20 09:26 Guaifenesin Dm 100/10/5 Ml 5 Ml Syrup PO 10 ml Q4H PRN Administration cough Heparin Sodium (Porcine) 5,000 unit 09/05/20 06:45 09/07/20 06:33 Heparin Sodium,Porcine 5,000 Unit/Ml Vial SUBCUT 5,000 unit Q12H TJ Administration Piperacillin Sod/Tazobactam 50 mls @ 100 mls/hr 09/04/20 21:00 09/07/20 10:07 Sod 3.375 gm/ Sodium Chloride IV Infused Q6H TJ Infusion Vancomycin HCl 1,000 mg/ 270 mls @ 270 mls/hr 09/06/20 12:00 09/07/20 00:18 Sodium Chloride IV Infused Q12H TJ Infusion Insulin Glargine 56 unit 09/05/20 09:00 09/07/20 09:29 Insulin Glargine,Hum.Rec.Anlog 100 Unit/Ml 10 Ml Vial SUBCUT 56 unit DAILY TJ Administration Insulin Glargine 45 unit 09/04/20 22:30 09/06/20 20:45 Insulin Glargine,Hum.Rec.Anlog 100 Unit/Ml 10 Ml Vial SUBCUT 45 unit BEDTIME TJ Administration Insulin Human Lispro 0 unit 09/05/20 07:30 09/07/20 08:24 Insulin Lispro 100 Unit/Ml 3 Ml Vial SUBCUT 2 unit QIDACHS TJ Administration Protocol Lisinopril 5 mg 09/05/20 09:00 09/07/20 08:23 Lisinopril 5 Mg Tablet PO 5 mg DAILY TJ Administration Protocol Ondansetron HCl 4 mg 09/05/20 06:55 Ondansetron Hcl 4 Mg/2 Ml Vial IVPUSH Q8H PRN Nausea and Vomiting Pharmacy Consult 1 each 09/04/20 14:11 Consult Rx Perform Med Rec MISCELLANE ONCE PRN Consult order Pharmacy Consult 1 each 09/04/20 17:18 Consult Rx Vancomycin Dosing MISCELLANE DAILY PRN Consult order Pharmacy Consult 1 each 09/04/20 20:52 Consult Rx Vancomycin Dosing MISCELLANE DAILY PRN Consult order Sodium Chloride 3 ml 09/05/20 08:00 09/07/20 08:24 0.9 % Sodium Chloride Flush 3 Ml Syringe IVFLUSH 3 ml QSHIFT TJ Administration Vitamin D 25 mcg 09/05/20 09:00 09/07/20 08:23 Cholecalciferol (Vitamin D3) 25 Mcg Tablet PO 25 mcg DAILY TJ Administration Labs CBC & Chem 7: 09/06/20 05:09 09/07/20 07:56 Microbiology Microbiology Results: Microbiology 09/04/20 15:00 Blood - Venous Blood Culture - Preliminary Staphylococcus aureus 09/04/20 14:45 Blood - Venous Blood Culture - Final Methicillin Res Staph Aureus Assessment and Plan (1) Cellulitis: Status: Acute (2) Necrosis of toe: Status: Acute (3) Elevated erythrocyte sedimentation rate: Status: Acute Assessment and Plan: 60-year-old male with past medical history of diabetes as well as peripheral neuropathy who presents to the hospital with complaints of right toe wound, drainage Sepsis due to diabetic foot ulcer continue IV vancomycin and Zosyn day 3 follow blood culture MRI foot done shows no convincing evidence of osteomyelitis Status post angiogram and angioplasty by vascular surgery Hypomagnesemia replaced and resolved monitor electrolytes Diiabetes mellitus - blood sugars elevated, continue Lantus b.i.d., added low-dose sliding scale insulin and diabetic diet follow blood sugar closely and adjust medication. Metformin on hold Continue Neurontin Hypertension - BP stable continue lisinopril Cough - no sputum production, no increased dyspnea, COVID-19 negative, chest x-ray negative for any evidence of pneumonia, continue inhalers Hyperlipidemia statin DVT prophylaxis: Heparin subQ
[2020-09-07] MEDS: vancomycin HCL 1,000 MG in 0.9 % Sodium Chloride 250 ML 250 MG IV (12:37)
[2020-09-07] MEDS: Acetaminophen 325 MG TABLET 650 MG PO (16:29)
[2020-09-07 16:52] LABS: Glucose, Whole Blood 259 mg/dL (60-115)
[2020-09-07] MEDS: polyethylene glycoL 3350 17 GM POWD.PACK PO (19:33)
[2020-09-07 20:51] LABS: Glucose, Whole Blood 248 mg/dL (60-115)
[2020-09-07] MEDS: Artificial Tears 15 ML DROPS 1 DROP EYE-BOTH (21:47)
[2020-09-07] MEDS: Gabapentin 600 MG TABLET PO (21:49)
[2020-09-07] MEDS: Atorvastatin Calcium 40 MG TABLET PO (21:49)
[2020-09-07] MEDS: Insulin Glargine,Hum.rec.anlog 100 UNIT/ML 10 ML VIAL 45 UNIT SUBCUT (21:51)
[2020-09-07 23:56] LABS: Vancomycin Trough 9.6 mcg/mL (10.0-20.0)
[2020-09-08] VITALS (7 sets, daily range): BP systolic 114–155; BP diastolic 55–84; PULSE 67–85; RESP 18–20; TEMP 36.4–37.4; O2SAT 94–99
[2020-09-08] MEDS: 0.9 % Sodium Chloride Flush 3 ML SYRINGE IVFLUSH ×3 (01:00→15:25)
[2020-09-08] MEDS: vancomycin HCL 1,000 MG in 0.9 % Sodium Chloride 250 ML 270 MG IV (01:00)
[2020-09-08] MEDS: Piperacillin Sodium/Tazobactam 3.375 GM in 0.9 % Sodium Chloride 50 ML IV ×4 (03:08→22:57)
[2020-09-08] MEDS: Heparin Sodium,Porcine 5,000 UNIT/ML VIAL 5000 UNIT SUBCUT ×2 (06:13→17:14)
--- NOTE | 2020-09-08 07:17 | PC.NURSE ---
vanco trough drawn at 2300 for 0000 dose of vancomycin was 9.6, hospitalist on duty alerted and no change to current dose as per his note.
--- NOTE | 2020-09-08 07:30 | HO.VASCPN ---
Subjective Subjective Date of Service: 09/08/20 Patient reports: no new complaints and feels better Interval history: s/p angiogram. No new events. Feels same. Was asleep on my arrival with CPAP machine. Physical Exam Vital Signs: Vital Signs: Last Vital Signs Temp 97.7 F 09/08/20 02:57 Pulse 71 09/08/20 02:57 Resp 18 09/08/20 02:57 BP 114/55 L 09/08/20 02:57 Pulse Ox 95 09/08/20 02:57 Body Mass Index 37.2 Const: General: cooperative, healthy appearing and no acute distress Orientation/consciousness: oriented to person, oriented to place and oriented to time HENMT: Head: Yes normal to inspection Neck: Carotids: no bruits Chest: Chest palpation & inspection: normal inspection of the chest Resp: Effort & Inspection: normal respiratory effort and able to speak in complete sentences Auscultation: clear to auscultation bilaterally Cardio: Rate: regular rate Heart sounds: S1 normal heart sound present and S2 normal heart sound present GI: Inspection: Yes normal to inspection Skin: General skin exam: no rashes or lesions noted Wounds: wounds noted (right great toe - still with cellulitis. dressing changed) Neuro: General: oriented to person, oriented to place, oriented to time and CN's II-XI intact bilaterally Extrem: General: Yes normal to inspection, Yes full ROM and Yes no clubbing, cyanosis or edema Psych: Appearance: grossly normal and well kempt Speech and movement: Normal speech and movement present Affect: normal affect Progress Note: A&P Assessment and plan (1) Diabetic foot ulcer: Status: Acute Assessment and Plan: Toe demarkating. Hopefully cellulitis improves. Will await another few days and possible great toe amputation. Will follow up with patient tomorrow. Fall Risk Details Current Medications: Current Medications Generic Name Dose Route Start Last Admin Trade Name Freq PRN Reason Stop Dose Admin Acetaminophen 650 mg 09/05/20 06:55 09/07/20 16:29 Acetaminophen 325 Mg Tablet PO 650 mg Q6H PRN Administration Pain, Mild (Pain Scale 1-3) Artificial Tears 1 drop 09/07/20 18:26 09/07/20 21:47 Artificial Tears 15 Ml Drops EYE-BOTH 1 drop Q6H PRN Administration Dry Eyes Aspirin 81 mg 09/05/20 09:00 09/07/20 08:23 Aspirin Enteric Coated 81 Mg Tablet. PO 81 mg DAILY TJ Administration Atorvastatin Calcium 40 mg 09/04/20 21:00 09/07/20 21:49 Atorvastatin Calcium 40 Mg Tablet PO 40 mg BEDTIME TJ Administration Benzonatate 200 mg 09/05/20 21:00 09/07/20 21:49 Benzonatate 100 Mg Capsule PO 200 mg TID TJ Administration Bisacodyl 5 mg 09/04/20 21:00 09/07/20 19:33 Bisacodyl 5 Mg Tablet. PO 5 mg BID TJ Administration Clopidogrel Bisulfate 75 mg 09/05/20 15:50 09/07/20 08:24 Clopidogrel Bisulfate 75 Mg Tablet PO 75 mg DAILY TJ Administration Docusate Sodium 100 mg 09/05/20 06:55 09/06/20 21:05 Docusate Sodium 100 Mg Capsule PO 100 mg DAILY PRN Administration Constipation Fluoxetine HCl 10 mg 09/05/20 09:00 09/07/20 08:24 Fluoxetine Hcl 10 Mg Capsule PO 10 mg DAILY TJ Administration Gabapentin 600 mg 09/04/20 21:00 09/07/20 21:49 Gabapentin 600 Mg Tablet PO 600 mg BEDTIME TJ Administration Guaifenesin/Dextromethorphan 10 ml 09/05/20 17:19 09/07/20 09:26 Guaifenesin Dm 100/10/5 Ml 5 Ml Syrup PO 10 ml Q4H PRN Administration cough Heparin Sodium (Porcine) 5,000 unit 09/05/20 06:45 09/08/20 06:13 Heparin Sodium,Porcine 5,000 Unit/Ml Vial SUBCUT 5,000 unit Q12H TJ Administration Piperacillin Sod/Tazobactam 50 mls @ 100 mls/hr 09/04/20 21:00 09/08/20 03:49 Sod 3.375 gm/ Sodium Chloride IV Infused Q6H TJ Infusion Vancomycin HCl 1,000 mg/ 270 mls @ 270 mls/hr 09/06/20 12:00 09/08/20 02:07 Sodium Chloride IV Infused Q12H TJ Infusion Insulin Glargine 56 unit 09/05/20 09:00 09/07/20 09:29 Insulin Glargine,Hum.Rec.Anlog 100 Unit/Ml 10 Ml Vial SUBCUT 56 unit DAILY TJ Administration Insulin Glargine 45 unit 09/04/20 22:30 09/07/20 21:51 Insulin Glargine,Hum.Rec.Anlog 100 Unit/Ml 10 Ml Vial SUBCUT 45 unit BEDTIME TJ Administration Insulin Human Lispro 0 unit 09/05/20 07:30 09/07/20 21:48 Insulin Lispro 100 Unit/Ml 3 Ml Vial SUBCUT 4 unit QIDACHS TJ Administration Protocol Lisinopril 5 mg 09/05/20 09:00 09/07/20 08:23 Lisinopril 5 Mg Tablet PO 5 mg DAILY TJ Administration Protocol Ondansetron HCl 4 mg 09/05/20 06:55 Ondansetron Hcl 4 Mg/2 Ml Vial IVPUSH Q8H PRN Nausea and Vomiting Pharmacy Consult 1 each 09/04/20 14:11 Consult Rx Perform Med Rec MISCELLANE ONCE PRN Consult order Pharmacy Consult 1 each 09/04/20 17:18 Consult Rx Vancomycin Dosing MISCELLANE DAILY PRN Consult order Pharmacy Consult 1 each 09/04/20 20:52 Consult Rx Vancomycin Dosing MISCELLANE DAILY PRN Consult order Polyethylene Glycol 17 gm 09/07/20 18:30 09/07/20 19:33 Polyethylene Glycol 3350 17 Gm Powd.Pack PO 17 gm DAILY TJ Administration Sodium Chloride 3 ml 09/05/20 08:00 09/08/20 01:00 0.9 % Sodium Chloride Flush 3 Ml Syringe IVFLUSH 3 ml QSHIFT TJ Administration Vitamin D 25 mcg 09/05/20 09:00 09/07/20 08:23 Cholecalciferol (Vitamin D3) 25 Mcg Tablet PO 25 mcg DAILY TJ Administration Time Spent With Patient Time: Total time spent is greater than 50% in coordination of care (as documented) at patient's floor/unit and/or counseling patient: Time with patient: 15 - 24 minutes
[2020-09-08 07:37] LABS: Glucose, Whole Blood 158 mg/dL (60-115)
[2020-09-08] MEDS: polyethylene glycoL 3350 17 GM POWD.PACK PO (08:03)
[2020-09-08] MEDS: bisacodyL 5 MG TABLET.DR PO ×2 (08:03→22:59)
[2020-09-08] MEDS: Aspirin Enteric Coated 81 MG TABLET.DR PO (08:04)
[2020-09-08] MEDS: Benzonatate 100 MG CAPSULE 200 MG PO ×3 (08:04→22:59)
[2020-09-08] MEDS: Cholecalciferol (Vitamin D3) 25 MCG TABLET PO (08:04)
[2020-09-08] MEDS: FLUoxetine HCl 10 MG CAPSULE PO (08:04)
[2020-09-08] MEDS: Clopidogrel Bisulfate 75 MG TABLET PO (08:04)
[2020-09-08] MEDS: Insulin Lispro 100 UNIT/ML 3 ML VIAL SUBCUT ×4 (08:05→22:58)
[2020-09-08] MEDS: Insulin Glargine,Hum.rec.anlog 100 UNIT/ML 10 ML VIAL 56 UNIT SUBCUT (08:05)
--- NOTE | 2020-09-08 11:20 | P.PNIM_ITS ---
Subjective Subjective Date of Service: 09/08/20 Interval History: Patient admitted for right big toe infection, Patient reported weakness Reported constipation Review of Systems General no headache, no dizziness, no fever chills. CVS no chest pain, no palpitation. Respiratory dry cough, no sputum production no respiratory distress. Gastrointestinal no nausea, no vomiting, abdominal pain with coughing Constitutional Constitutional: Reports weakness Neurologic Neurologic: Reports weakness Physical Exam Vital Signs: Vital Signs: Last Vital Signs Temp 97.7 F 09/08/20 08:13 Pulse 79 09/08/20 08:13 Resp 20 09/08/20 08:13 BP 146/84 H 09/08/20 08:13 Pulse Ox 97 09/08/20 08:13 Body Mass Index 37.2 Const: General: cooperative and no acute distress Orientat ion/consciousness: patient oriented x3 Eyes: General: appearance normal, both eyes and all related structures Resp: Effort & Inspection: normal respiratory effort and able to speak in complete sentences Cardio: Rate: regular rate Rhythm: regular rhythm GI: Palpation (GI): Soft to palpation Auscultation: normal bowel sounds Skin: General skin exam: no rashes or lesions noted Neuro: General: patient oriented x3 Cognition (Neuro): normal cognition Extrem: Other: Right toe has discoloration, purple to blue, has a wound at the base of large right toe that is necrotic, there is swelling, erythema, warmth, unable to elicit any tenderness General: Yes normal to inspection Objective Data Current Medications Generic Name Dose Route Start Last Admin Trade Name Freq PRN Reason Stop Dose Admin Acetaminophen 650 mg 09/05/20 06:55 09/07/20 16:29 Acetaminophen 325 Mg Tablet PO 650 mg Q6H PRN Administration Pain, Mild (Pain Scale 1-3) Artificial Tears 1 drop 09/07/20 18:26 09/07/20 21:47 Artificial Tears 15 Ml Drops EYE-BOTH 1 drop Q6H PRN Administration Dry Eyes Aspirin 81 mg 09/05/20 09:00 09/08/20 08:04 Aspirin Enteric Coated 81 Mg Tablet. PO 81 mg DAILY TJ Administration Atorvastatin Calcium 40 mg 09/04/20 21:00 09/07/20 21:49 Atorvastatin Calcium 40 Mg Tablet PO 40 mg BEDTIME TJ Administration Benzonatate 200 mg 09/05/20 21:00 09/08/20 08:04 Benzonatate 100 Mg Capsule PO 200 mg TID TJ Administration Bisacodyl 5 mg 09/04/20 21:00 09/08/20 08:03 Bisacodyl 5 Mg Tablet.Dr PO 5 mg BID TJ Administration Clopidogrel Bisulfate 75 mg 09/05/20 15:50 09/08/20 08:04 Clopidogrel Bisulfate 75 Mg Tablet PO 75 mg DAILY TJ Administration Docusate Sodium 100 mg 09/05/20 06:55 09/06/20 21:05 Docusate Sodium 100 Mg Capsule PO 100 mg DAILY PRN Administration Constipation Fluoxetine HCl 10 mg 09/05/20 09:00 09/08/20 08:04 Fluoxetine Hcl 10 Mg Capsule PO 10 mg DAILY TJ Administration Gabapentin 600 mg 09/04/20 21:00 09/07/20 21:49 Gabapentin 600 Mg Tablet PO 600 mg BEDTIME TJ Administration Guaifenesin/Dextromethorphan 10 ml 09/05/20 17:19 09/07/20 09:26 Guaifenesin Dm 100/10/5 Ml 5 Ml Syrup PO 10 ml Q4H PRN Administration cough Heparin Sodium (Porcine) 5,000 unit 09/05/20 06:45 09/08/20 06:13 Heparin Sodium,Porcine 5,000 Unit/Ml Vial SUBCUT 5,000 unit Q12H TJ Administration Piperacillin Sod/Tazobactam 50 mls @ 100 mls/hr 09/04/20 21:00 09/08/20 08:35 Sod 3.375 gm/ Sodium Chloride IV Infused Q6H TJ Infusion Vancomycin HCl 1,000 mg/ 270 mls @ 270 mls/hr 09/06/20 12:00 09/08/20 02:07 Sodium Chloride IV Infused Q12H TJ Infusion Insulin Glargine 56 unit 09/05/20 09:00 09/08/20 08:05 Insulin Glargine,Hum.Rec.Anlog 100 Unit/Ml 10 Ml Vial SUBCUT 56 unit DAILY TJ Administration Insulin Glargine 45 unit 09/04/20 22:30 09/07/20 21:51 Insulin Glargine,Hum.Rec.Anlog 100 Unit/Ml 10 Ml Vial SUBCUT 45 unit BEDTIME TJ Administration Insulin Human Lispro 0 unit 09/05/20 07:30 09/08/20 08:05 Insulin Lispro 100 Unit/Ml 3 Ml Vial SUBCUT 2 unit QIDACHS TJ Administration Protocol Lisinopril 5 mg 09/05/20 09:00 09/08/20 08:04 Lisinopril 5 Mg Tablet PO 5 mg DAILY TJ Administration Protocol Ondansetron HCl 4 mg 09/05/20 06:55 Ondansetron Hcl 4 Mg/2 Ml Vial IVPUSH Q8H PRN Nausea and Vomiting Pharmacy Consult 1 each 09/04/20 14:11 Consult Rx Perform Med Rec MISCELLANE ONCE PRN Consult order Pharmacy Consult 1 each 09/04/20 17:18 Consult Rx Vancomycin Dosing MISCELLANE DAILY PRN Consult order Pharmacy Consult 1 each 09/04/20 20:52 Consult Rx Vancomycin Dosing MISCELLANE DAILY PRN Consult order Polyethylene Glycol 17 gm 09/07/20 18:30 09/08/20 08:03 Polyethylene Glycol 3350 17 Gm Powd.Pack PO 17 gm DAILY TJ Administration Sodium Chloride 3 ml 09/05/20 08:00 09/08/20 08:06 0.9 % Sodium Chloride Flush 3 Ml Syringe IVFLUSH 3 ml QSHIFT TJ Administration Vitamin D 25 mcg 09/05/20 09:00 09/08/20 08:04 Cholecalciferol (Vitamin D3) 25 Mcg Tablet PO 25 mcg DAILY TJ Administration Labs CBC & Chem 7: 09/06/20 05:09 09/07/20 07:56 Microbiology Microbiology Results: Microbiology 09/04/20 15:00 Blood - Venous Blood Culture - Final Methicillin Res Staph Aureus 09/04/20 14:45 Blood - Venous Blood Culture - Final Methicillin Res Staph Aureus Assessment and Plan (1) Cellulitis: Status: Acute (2) Necrosis of toe: Status: Acute (3) Elevated erythrocyte sedimentation rate: Status: Acute Assessment and Plan: 60-year-old male with past medical history of diabetes as well as peripheral neuropathy who presents to the hospital with complaints of right toe wound, drainage Sepsis due to diabetic foot ulcer continue IV vancomycin and Zosyn day 4 Vanco trough was low Vanco dose increased follow blood culture MRI foot done shows no convincing evidence of osteomyelitis Status post angiogram and angioplasty by vascular surgery Vascular surgery recommended to continue IV antibiotic will likely need amputation of the toe next week Hypomagnesemia replaced and resolved monitor electrolytes Diiabetes mellitus - blood sugars elevated, continue Lantus b.i.d., continue sliding scale insulin and diabetic diet f ollow blood sugar closely and adjust medication. Metformin on hold Continue Neurontin Hypertension - BP stable continue lisinopril Cough - no sputum production, no increased dyspnea, COVID-19 negative, chest x-ray negative for any evidence of pneumonia, continue inhalers constipation Continue MiraLax Will aid add lactulose Hyperlipidemia statin DVT prophylaxis: Heparin subQ
[2020-09-08 12:02] LABS: Glucose, Whole Blood 257 mg/dL (60-115)
[2020-09-08] MEDS: Lactulose 20 GM/30 ML SOLUTION 30 GM PO (12:13)
[2020-09-08 16:57] LABS: Glucose, Whole Blood 303 mg/dL (60-115)
[2020-09-08] MEDS: Acetaminophen 325 MG TABLET 650 MG PO (17:16)
[2020-09-08 20:30] LABS: Glucose, Whole Blood 307 mg/dL (60-115)
[2020-09-08] MEDS: Insulin Glargine,Hum.rec.anlog 100 UNIT/ML 10 ML VIAL 45 UNIT SUBCUT (22:57)
[2020-09-08] MEDS: Atorvastatin Calcium 40 MG TABLET PO (22:59)
[2020-09-08] MEDS: Gabapentin 600 MG TABLET PO (23:00)
[2020-09-08] MEDS: Lactulose 20 GM/30 ML SOLUTION PO (23:44)
[2020-09-09] MEDS: 0.9 % Sodium Chloride Flush 3 ML SYRINGE IVFLUSH ×3 (01:14→17:14)
[2020-09-09] MEDS: Piperacillin Sodium/Tazobactam 3.375 GM in 0.9 % Sodium Chloride 50 ML IV ×4 (03:00→21:17)
[2020-09-09 03:27] VITALS: BP 124/53; PULSE 67; RESP 16; TEMP 36.8; O2SAT 93
[2020-09-09] MEDS: Heparin Sodium,Porcine 5,000 UNIT/ML VIAL 5000 UNIT SUBCUT ×2 (06:12→18:25)
[2020-09-09 07:19] VITALS: BP 142/74; PULSE 62; RESP 20; TEMP 36.7; O2SAT 93
[2020-09-09 07:51] LABS: Glucose, Whole Blood 159 mg/dL (60-115)
[2020-09-09] MEDS: Insulin Lispro 100 UNIT/ML 3 ML VIAL SUBCUT ×4 (08:24→21:17)
[2020-09-09] MEDS: Insulin Glargine,Hum.rec.anlog 100 UNIT/ML 10 ML VIAL 56 UNIT SUBCUT (08:24)
[2020-09-09] MEDS: FLUoxetine HCl 10 MG CAPSULE PO (08:25)
[2020-09-09] MEDS: Clopidogrel Bisulfate 75 MG TABLET PO (08:25)
[2020-09-09] MEDS: Benzonatate 100 MG CAPSULE 200 MG PO ×3 (08:25→20:07)
[2020-09-09] MEDS: Aspirin Enteric Coated 81 MG TABLET.DR PO (08:25)
[2020-09-09] MEDS: Cholecalciferol (Vitamin D3) 25 MCG TABLET PO (08:26)
[2020-09-09] MEDS: Acetaminophen 325 MG TABLET 650 MG PO ×2 (09:41→16:02)
[2020-09-09] MEDS: guaiFENesin DM 100/10/5 ML 5 ML SYRUP 10 ML PO (09:41)
--- NOTE | 2020-09-09 11:12 | HO.VASCPN ---
Subjective Subjective Date of Service: 09/09/20 Patient reports: no new complaints and feels better Interval history: Doing well. No interval issues. No significant pain right foot. Physical Exam Vital Signs: Vital Signs: Last Vital Signs Temp 98.1 F 09/09/20 07:19 Pulse 62 09/09/20 07:19 Resp 20 09/09/20 07:19 BP 142/74 H 09/09/20 07:19 Pulse Ox 93 09/09/20 07:19 Body Mass Index 37.2 Const: General: cooperative, healthy appearing and no acute distress Orientation/consciousness: oriented to person, oriented to place and oriented to time HENMT: Head: Yes normal to inspection Neck: Carotids: no bruits Chest: Chest palpation & inspection: normal inspection of the chest Resp: Effort & Inspection: normal respiratory effort and able to speak in complete sentences Auscultation: clear to auscultation bilaterally Cardio: Rate: regular rate Heart sounds: S1 normal heart sound present and S2 normal heart sound present GI: Inspection: Yes normal to inspection Skin: General skin exam: no rashes or lesions noted Wounds: wounds noted (right great toe gangerene) Neuro: General: oriented to person, oriented to place, oriented to time and CN's II-XI intact bilaterally Extrem: General: Yes normal to inspection, Yes full ROM and Yes no clubbing, cyanosis or edema Psych: Appearance: grossly normal and well kempt Speech and movement: Normal speech and movement present Affect: normal affect Progress Note: A&P Assessment and plan (1) Diabetic foot ulcer: Status: Acute Assessment and Plan: Patient s/p endo intervention. Will require right great toe amputation. Risk/benefits discussed. He is in agreement. Will schedule for tomorrow. Discussed with hospitalist team. Fall Risk Details Current Medications: Current Medications Generic Name Dose Route Start Last Admin Trade Name Freq PRN Reason Stop Dose Admin Acetaminophen 650 mg 09/05/20 06:55 09/09/20 09:41 Acetaminophen 325 Mg Tablet PO 650 mg Q6H PRN Administration Pain, Mild (Pain Scale 1-3) Artificial Tears 1 drop 09/07/20 18:26 09/07/20 21:47 Artificial Tears 15 Ml Drops EYE-BOTH 1 drop Q6H PRN Administration Dry Eyes Aspirin 81 mg 09/05/20 09:00 09/09/20 08:25 Aspirin Enteric Coated 81 Mg Tablet. PO 81 mg DAILY TJ Administration Atorvastatin Calcium 40 mg 09/04/20 21:00 09/08/20 22:59 Atorvastatin Calcium 40 Mg Tablet PO 40 mg BEDTIME TJ Administration Benzonatate 200 mg 09/05/20 21:00 09/09/20 08:25 Benzonatate 100 Mg Capsule PO 200 mg TID TJ Administration Bisacodyl 5 mg 09/04/20 21:00 09/09/20 08:26 Bisacodyl 5 Mg Tablet. PO Not Given BID TJ Clopidogrel Bisulfate 75 mg 09/05/20 15:50 09/09/20 08:25 Clopidogrel Bisulfate 75 Mg Tablet PO 75 mg DAILY TJ Administration Docusate Sodium 100 mg 09/05/20 06:55 09/06/20 21:05 Docusate Sodium 100 Mg Capsule PO 100 mg DAILY PRN Administration Constipation Fluoxetine HCl 10 mg 09/05/20 09:00 09/09/20 08:25 Fluoxetine Hcl 10 Mg Capsule PO 10 mg DAILY TJ Administration Gabapentin 600 mg 09/04/20 21:00 09/08/20 23:00 Gabapentin 600 Mg Tablet PO 600 mg BEDTIME TJ Administration Guaifenesin/Dextromethorphan 10 ml 09/05/20 17:19 09/09/20 09:41 Guaifenesin Dm 100/10/5 Ml 5 Ml Syrup PO 10 ml Q4H PRN Administration cough Heparin Sodium (Porcine) 5,000 unit 09/05/20 06:45 09/09/20 06:12 Heparin Sodium,Porcine 5,000 Unit/Ml Vial SUBCUT 5,000 unit Q12H TJ Administration Piperacillin Sod/Tazobactam 50 mls @ 100 mls/hr 09/04/20 21:00 09/09/20 09:25 Sod 3.375 gm/ Sodium Chloride IV Infused Q6H TJ Infusion Vancomycin HCl 750 mg/ 275 mls @ 183.333 mls/hr 09/08/20 13:00 09/09/20 02:54 Vancomycin HCl 500 mg/ Sodium IV Infused Chloride Q12H TJ Infusion Insulin Glargine 56 unit 09/05/20 09:00 09/09/20 08:24 Insulin Glargine,Hum.Rec.Anlog 100 Unit/Ml 10 Ml Vial SUBCUT 56 unit DAILY TJ Administration Insulin Glargine 45 unit 09/04/20 22:30 09/08/20 22:57 Insulin Glargine,Hum.Rec.Anlog 100 Unit/Ml 10 Ml Vial SUBCUT 45 unit BEDTIME TJ Administration Insulin Human Lispro 0 unit 09/05/20 07:30 09/09/20 08:24 Insulin Lispro 100 Unit/Ml 3 Ml Vial SUBCUT 2 unit QIDACHS TJ Administration Protocol Lisinopril 5 mg 09/05/20 09:00 09/09/20 08:25 Lisinopril 5 Mg Tablet PO 5 mg DAILY TJ Administration Protocol Ondansetron HCl 4 mg 09/05/20 06:55 Ondansetron Hcl 4 Mg/2 Ml Vial IVPUSH Q8H PRN Nausea and Vomiting Pharmacy Consult 1 each 09/04/20 14:11 Consult Rx Perform Med Rec MISCELLANE ONCE PRN Consult order Pharmacy Consult 1 each 09/04/20 17:18 Consult Rx Vancomycin Dosing MISCELLANE DAILY PRN Consult order Pharmacy Consult 1 each 09/04/20 20:52 Consult Rx Vancomycin Dosing MISCELLANE DAILY PRN Consult order Polyethylene Glycol 17 gm 09/07/20 18:30 09/09/20 08:25 Polyethylene Glycol 3350 17 Gm Powd.Pack PO Not Given DAILY TJ Sodium Chloride 3 ml 09/05/20 08:00 09/09/20 08:26 0.9 % Sodium Chloride Flush 3 Ml Syringe IVFLUSH 3 ml QSHIFT TJ Administration Vitamin D 25 mcg 09/05/20 09:00 09/09/20 08:26 Cholecalciferol (Vitamin D3) 25 Mcg Tablet PO 25 mcg DAILY TJ Administration Time Spent With Patient Time: Total time spent is greater than 50% in coordination of care (as documented) at patient's floor/unit and/or counseling patient: Time with patient: 15 - 24 minutes
[2020-09-09 11:29] LABS: Glucose, Whole Blood 279 mg/dL (60-115)
--- NOTE | 2020-09-09 11:54 | MHC.CLN ---
RE: CONSULT REVIEWED [id number] [facility] DIET. PT C/O UNCONTROLLED BS-REVIEWED FOODS THAT AFFECT BS. PT REPORTS SKIPPING MEALS AND FOLLOWING HIGH PROTEIN, LOW CALORIE DIET AT HOME. RECOMMEND RE-ENFORCEMENT EDUCATION WITH OUT PT RD UPON DISCHARGE. PT APPEARS HIGHLY MOTIVATED TO MAKE DIET CHANGES SEE ALSO TEACHING RECORD
[2020-09-09 12:00] VITALS: BP 131/62; PULSE 62; RESP 20; TEMP 36.4; O2SAT 97
--- NOTE | 2020-09-09 12:09 | HO.PM.IMPN ---
Subjective Subjective Date of Service: 09/09/20 Interval History: Patient admitted for right big toe infection, Patient reported weakness redness and swelling persistent Review of Systems General no headache, no dizziness, no fever chills. CVS no chest pain, no palpitation. Respiratory dry cough, no sputum production no respiratory distress. Gastrointestinal no nausea, no vomiting, abdominal pain with coughing Constitutional Constitutional: Reports weakness Neurologic Neurologic: Reports weakness Physical Exam Vital Signs: Vital Signs: Last Vital Signs Temp 98.1 F 09/09/20 07:19 Pulse 62 09/09/20 07:19 Resp 20 09/09/20 07:19 BP 142/74 H 09/09/20 07:19 Pulse Ox 93 09/09/20 07:19 Body Mass Index 37.2 Const: General: cooperative and no acute distress Orientation/consciousness: patient oriented x3 Eyes: General: appearance normal, both eyes and all related structures Resp: Effort & Inspection: normal respiratory effort and able to speak in complete sentences Cardio: Rate: regular rate Rhythm: regular rhythm GI: Palpation (GI): Soft to palpation Auscultation: normal bowel sounds Skin: General skin exam: no rashes or lesions noted Neuro: General: patient oriented x3 Cognition (Neuro): normal cognition Extrem: Other: Right toe has discoloration, purple to blue, has a wound at the base of large right toe that is necrotic, there is swelling, erythema, warmth, unable to elicit any tenderness General: Yes normal to inspection Objective Data Current Medications Generic Name Dose Route Start Last Admin Trade Name Freq PRN Reason Stop Dose Admin Acetaminophen 650 mg 09/05/20 06:55 09/09/20 09:41 Acetaminophen 325 Mg Tablet PO 650 mg Q6H PRN Administration Pain, Mild (Pain Scale 1-3) Artificial Tears 1 drop 09/07/20 18:26 09/07/20 21:47 Artificial Tears 15 Ml Drops EYE-BOTH 1 drop Q6H PRN Administration Dry Eyes Aspirin 81 mg 09/05/20 09:00 09/09/20 08:25 Aspirin Enteric Coated 81 Mg Tablet.Dr PO 81 mg DAILY TJ Administration Atorvastatin Calcium 40 mg 09/04/20 21:00 09/08/20 22:59 Atorvastatin Calcium 40 Mg Tablet PO 40 mg BEDTIME TJ Administration Benzonatate 200 mg 09/05/20 21:00 09/09/20 08:25 Benzonatate 100 Mg Capsule PO 200 mg TID TJ Administration Bisacodyl 5 mg 09/04/20 21:00 09/09/20 08:26 Bisacodyl 5 Mg Tablet. PO Not Given BID TJ Clopidogrel Bisulfate 75 mg 09/05/20 15:50 09/09/20 08:25 Clopidogrel Bisulfate 75 Mg Tablet PO 75 mg DAILY TJ Administration Docusate Sodium 100 mg 09/05/20 06:55 09/06/20 21:05 Docusate Sodium 100 Mg Capsule PO 100 mg DAILY PRN Administration Constipation Fluoxetine HCl 10 mg 09/05/20 09:00 09/09/20 08:25 Fluoxetine Hcl 10 Mg Capsule PO 10 mg DAILY TJ Administration Gabapentin 600 mg 09/04/20 21:00 09/08/20 23:00 Gabapentin 600 Mg Tablet PO 600 mg BEDTIME TJ Administration Guaifenesin/Dextromethorphan 10 ml 09/05/20 17:19 09/09/20 09:41 Guaifenesin Dm 100/10/5 Ml 5 Ml Syrup PO 10 ml Q4H PRN Administration cough Heparin Sodium (Porcine) 5,000 unit 09/05/20 06:45 09/09/20 06:12 Heparin Sodium,Porcine 5,000 Unit/Ml Vial SUBCUT 5,000 unit Q12H TJ Administration Piperacillin Sod/Tazobactam 50 mls @ 100 mls/hr 09/04/20 21:00 09/09/20 09:25 Sod 3.375 gm/ Sodium Chloride IV Infused Q6H TJ Infusion Vancomycin HCl 750 mg/ 275 mls @ 183.333 mls/hr 09/08/20 13:00 09/09/20 02:54 Vancomycin HCl 500 mg/ Sodium IV Infused Chloride Q12H TJ Infusion Insulin Glargine 56 unit 09/05/20 09:00 09/09/20 08:24 Insulin Glargine,Hum.Rec.Anlog 100 Unit/Ml 10 Ml Vial SUBCUT 56 unit DAILY TJ Administration Insulin Glargine 45 unit 09/04/20 22:30 09/08/20 22:57 Insulin Glargine,Hum.Rec.Anlog 100 Unit/Ml 10 Ml Vial SUBCUT 45 unit BEDTIME TJ Administration Insulin Human Lispro 0 unit 09/05/20 07:30 09/09/20 11:52 Insulin Lispro 100 Unit/Ml 3 Ml Vial SUBCUT 6 unit QIDACHS TJ Administration Protocol Lisinopril 5 mg 09/05/20 09:00 09/09/20 08:25 Lisinopril 5 Mg Tablet PO 5 mg DAILY TJ Administration Protocol Ondansetron HCl 4 mg 09/05/20 06:55 Ondansetron Hcl 4 Mg/2 Ml Vial IVPUSH Q8H PRN Nausea and Vomiting Pharmacy Consult 1 each 09/04/20 14:11 Consult Rx Perform Med Rec MISCELLANE ONCE PRN Consult order Pharmacy Consult 1 each 09/04/20 17:18 Consult Rx Vancomycin Dosing MISCELLANE DAILY PRN Consult order Pharmacy Consult 1 each 09/04/20 20:52 Consult Rx Vancomycin Dosing MISCELLANE DAILY PRN Consult order Polyethylene Glycol 17 gm 09/07/20 18:30 09/09/20 08:25 Polyethylene Glycol 3350 17 Gm Powd.Pack PO Not Given DAILY [facility] Sodium Chloride 3 ml 09/05/20 08:00 09/09/20 08:26 0.9 % Sodium Chloride Flush 3 Ml Syringe IVFLUSH 3 ml QSHIFT TJ Administration Vitamin D 25 mcg 09/05/20 09:00 09/09/20 08:26 Cholecalciferol (Vitamin D3) 25 Mcg Tablet PO 25 mcg DAILY TJ Administration Labs CBC & Chem 7: 09/06/20 05:09 09/07/20 07:56 Microbiology Microbiology Results: Microbiology 09/04/20 15:00 Blood - Venous Blood Culture - Final Methicillin Res Staph Aureus 09/04/20 14:45 Blood - Venous Blood Culture - Final Methicillin Res Staph Aureus Assessment and Plan (1) Cellulitis: Status: Acute (2) Necrosis of toe: Status: Acute (3) Elevated erythrocyte sedimentation rate: Status: Acute Assessment and Plan: 60-year-old male with past medical history of diabetes as well as peripheral neuropathy who presents to the hospital with complaints of right toe wound, drainage Sepsis due to diabetic foot ulcer continue IV vancomycin and Zosyn day 5 Vanco trough was low Vanco dose increased monitor Vanco trough follow blood culture MRI foot done shows no convincing evidence of osteomyelitis Status post angiogram and angioplasty by vascular surgery Vascular surgery recommended to continue IV antibiotic will likely need amputation of the toe Hypomagnesemia replaced and resolved monitor electrolytes Diiabetes mellitus - blood sugars elevated, increased Lantus b.i.d., continue sliding scale insulin and diabetic diet f ollow blood sugar closely and adjust medication. Metformin on hold Continue Neurontin Hypertension - BP stable continue lisinopril Cough - no sputum production, no increased dyspnea, COVID-19 negative, chest x-ray negative for any evidence of pneumonia, continue inhalers constipation Continue MiraLax continue lactulose Hyperlipidemia statin DVT prophylaxis: Heparin subQ
[2020-09-09 12:31] LABS: MANUAL DIFF FLAG NO
[2020-09-09 12:33] LABS: Basophils Absolute Auto 0.1 X10*3/uL (0.0-0.2); Basophils Percent Auto 0.4 % (0-2); Eosinophils Absolute Auto 0.3 X10*3/uL (0.0-0.4); Eosinophils Percent Auto 2.5 % (0-4); Hematocrit 32.6 % (42-52); Hemoglobin 11.2 g/dl (14.0-18.0); Imm Gran Abs Auto 0.29 X10*3/uL (0.00-0.03); Imm Gran Pct Auto 2.5 % (0.0-0.4); Lymphocytes Absolute Auto 2.1 X10*3/uL (1.2-4.9); Lymphocytes Percent Auto 17.6 % (20-40); Mean Corpuscular HGB Conc 34.4 g/dl (31.0-36.0); Mean Corpuscular Hemoglobin 32.9 pg (27.0-33.0); Mean Corpuscular Volume 95.9 fL (80-98); Mean Platelet Volume 10.4 fL (9.4-12.4); Monocytes Absolute Auto 1.1 X10*3/uL (0.1-1.2); Monocytes Percent Auto 9.5 % (2-11); Neutrophils Absolute Auto 7.9 X10*3/uL (2.0-8.3); Neutrophils Percent Auto 67.5 % (45-73); Platelet Count 207 X10*3/uL (160-400); Red Cell Distribution Width 11.3 % (11.0-16.0); White Blood Count 11.7 X10*3/uL (4.8-10.8)
[2020-09-09 12:45] LABS: Vancomycin Trough 11.7 mcg/mL (10.0-20.0)
[2020-09-09 13:08] LABS: Anion Gap 13 (12-20); Blood Urea Nitrogen 14 mg/dL (9-16); Calcium 8.1 mg/dL (8.4-10.2); Carbon Dioxide 26 mmol/L (22-29); Chloride 100 mmol/L (96-108); Creatinine Clr Calc Pharmacy 91.6; Estimated Glomerular Filt Rate > 60; Glucose Random 275 mg/dL (60-115); Potassium 4.9 mmol/l (3.3-5.1); Sodium 134 mmol/L (135-145)
--- NOTE | 2020-09-09 13:51 | MHC.CARE ---
Care team rec consult for pt for depression. Pt was asleep when attempted to see at 1315. Care team to re-try later.
[2020-09-09] MEDS: Lactulose 20 GM/30 ML SOLUTION 40 GM PO (14:00)
[2020-09-09 15:28] VITALS: BP 119/63; PULSE 87; RESP 20; TEMP 36.4; O2SAT 98
[2020-09-09 16:18] LABS: Glucose, Whole Blood 274 mg/dL (60-115)
[2020-09-09 19:31] VITALS: BP 163/74; PULSE 68; RESP 20; TEMP 36.4; O2SAT 94
[2020-09-09] MEDS: bisacodyL 5 MG TABLET.DR PO (20:08)
[2020-09-09] MEDS: Gabapentin 600 MG TABLET PO (20:08)
[2020-09-09] MEDS: Atorvastatin Calcium 40 MG TABLET PO (20:08)
[2020-09-09 20:35] LABS: Glucose, Whole Blood 267 mg/dL (60-115)
--- NOTE | 2020-09-09 20:40 | MHC.CARE ---
Consult requested for depression. Pt is getting his foot amputated tomorrow. He expresses interest in a therapist. He discusses he has been in therapy since 1989 at [facility] however has been disengaged due to COVID-19 and telehealth. He prefers an in person therapist despite informing him this may be very challenging. Pt discloses worsening depression related to past trauma and medical condition. Pt requests we come meet with him tomorrow to support him after his surgery and discuss therapy options. He states he served in the [employer] for 20 years and also never had much of a childhood . He reportedly lives alone and states he will need extra assistance once he transitions home. He is able to recognize that he needs mental health treatment and also recognizes that he has not been taking the best care of himself either. 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 Pt discusses serving in the [employer] for many years and once my pension was taken from me, that damaged my mental health . Pt is calm and cooperative. He thanks this news writer for listening. He reports I do well in therapy because I listen and take advice well, but once this covid hit it was really hard for me over the phone .
[2020-09-09] MEDS: Insulin Glargine,Hum.rec.anlog 100 UNIT/ML 10 ML VIAL 50 UNIT SUBCUT (21:16)
[2020-09-09] MEDS: Sodium Chloride 0.65 % Nasal 44 ML SPRBTL 1 SPRAY NOSTRIL-B (21:18)
[2020-09-09] MEDS: Sodium Phosphate,Mono-Dibasic 133 ML ENEMA PR (21:18)
[2020-09-10] VITALS (10 sets, daily range): BP systolic 115–156; BP diastolic 49–78; PULSE 59–75; RESP 16–18; TEMP 36.2–37.7; O2SAT 92–97
[2020-09-10] MEDS: 0.9 % Sodium Chloride Flush 3 ML SYRINGE IVFLUSH ×3 (01:10→16:10)
[2020-09-10] MEDS: Piperacillin Sodium/Tazobactam 3.375 GM in 0.9 % Sodium Chloride 50 ML IV ×4 (02:59→21:29)
[2020-09-10 07:12] LABS: Anion Gap 14 (12-20); Blood Urea Nitrogen 10 mg/dL (9-16); Calcium 7.9 mg/dL (8.4-10.2); Carbon Dioxide 24 mmol/L (22-29); Chloride 102 mmol/L (96-108); Creatinine Clr Calc Pharmacy 111.8; Estimated Glomerular Filt Rate > 60; Glucose Random 183 mg/dL (60-115); Potassium 4.3 mmol/l (3.3-5.1); Sodium 136 mmol/L (135-145)
[2020-09-10 08:08] LABS: Glucose, Whole Blood 175 mg/dL (60-115)
--- NOTE | 2020-09-10 08:15 | MHC.CM.PN ---
dc plan is home no svcs. pt may have a ride home through his insurance - rideshare , otherwise patient may need help c a ride home at dc. cm to cont. to follow.
[2020-09-10] MEDS: FLUoxetine HCl 10 MG CAPSULE PO (08:53)
[2020-09-10] MEDS: Cholecalciferol (Vitamin D3) 25 MCG TABLET PO (08:53)
[2020-09-10] MEDS: Benzonatate 100 MG CAPSULE 200 MG PO ×3 (08:53→21:33)
[2020-09-10] MEDS: bisacodyL 5 MG TABLET.DR PO ×2 (08:53→21:33)
[2020-09-10] MEDS: Aspirin Enteric Coated 81 MG TABLET.DR PO (08:54)
[2020-09-10] MEDS: Acetaminophen 325 MG TABLET 650 MG PO (09:11)
--- NOTE | 2020-09-10 11:43 | HO.PM.IMPN ---
Subjective Subjective Date of Service: 09/10/20 Interval History: Patient admitted for right big toe infection, Patient reported weakness redness and swelling improving Review of Systems General no headache, no dizziness, no fever chills. CVS no chest pain, no palpitation. Respiratory dry cough, no sputum production no respiratory distress. Gastrointestinal no nausea, no vomiting, abdominal pain with coughing Constitutional Constitutional: Reports weakness Neurologic Neurologic: Reports weakness Physical Exam Vital Signs: Vital Signs: Last Vital Signs Temp 98.0 F 09/10/20 07:50 Pulse 61 09/10/20 07:50 Resp 18 09/10/20 07:50 BP 129/68 09/10/20 07:50 Pulse Ox 94 09/10/20 07:50 Body Mass Index 37.2 Const: General: cooperative and no acute distress Orientation/consciousness: patient oriented x3 Eyes: General: appearance normal, both eyes and all related structures Resp: Effort & Inspection: normal respiratory effort and able to speak in complete sentences Cardio: Rate: regular rate Rhythm: regular rhythm GI: Palpation (GI): Soft to palpation Auscultation: normal bowel sounds Skin: General skin exam: no rashes or lesions noted Neuro: General: patient oriented x3 Cognition (Neuro): normal cognition Extrem: Other: Right toe has discoloration, purple to blue, has a wound at the base of large right toe that is necrotic, there is swelling, erythema, warmth, unable to elicit any tenderness General: Yes normal to inspection Objective Data Current Medications Generic Name Dose Route Start Last Admin Trade Name Freq PRN Reason Stop Dose Admin Acetaminophen 650 mg 09/05/20 06:55 09/10/20 09:11 Acetaminophen 325 Mg Tablet PO 650 mg Q6H PRN Administration Pain, Mild (Pain Scale 1-3) Artificial Tears 1 drop 09/07/20 18:26 09/07/20 21:47 Artificial Tears 15 Ml Drops EYE-BOTH 1 drop Q6H PRN Administration Dry Eyes Aspirin 81 mg 09/05/20 09:00 09/10/20 08:54 Aspirin Enteric Coated 81 Mg Tablet. PO 81 mg DAILY TJ Administration Atorvastatin Calcium 40 mg 09/04/20 21:00 09/09/20 20:08 Atorvastatin Calcium 40 Mg Tablet PO 40 mg BEDTIME TJ Administration Benzonatate 200 mg 09/05/20 21:00 09/10/20 08:53 Benzonatate 100 Mg Capsule PO 200 mg TID TJ Administration Bisacodyl 5 mg 09/04/20 21:00 09/10/20 08:53 Bisacodyl 5 Mg Tablet.Dr PO 5 mg BID TJ Administration Clopidogrel Bisulfate 75 mg 09/05/20 15:50 09/10/20 10:47 Clopidogrel Bisulfate 75 Mg Tablet PO Not Given DAILY TJ Docusate Sodium 100 mg 09/05/20 06:55 09/06/20 21:05 Docusate Sodium 100 Mg Capsule PO 100 mg DAILY PRN Administration Constipation Fluoxetine HCl 10 mg 09/05/20 09:00 09/10/20 08:53 Fluoxetine Hcl 10 Mg Capsule PO 10 mg DAILY TJ Administration Gabapentin 600 mg 09/04/20 21:00 09/09/20 20:08 Gabapentin 600 Mg Tablet PO 600 mg BEDTIME TJ Administration Guaifenesin/Dextromethorphan 10 ml 09/05/20 17:19 09/09/20 09:41 Guaifenesin Dm 100/10/5 Ml 5 Ml Syrup PO 10 ml Q4H PRN Administration cough Heparin Sodium (Porcine) 5,000 unit 09/05/20 06:45 09/10/20 06:18 Heparin Sodium,Porcine 5,000 Unit/Ml Vial SUBCUT Not Given Q12H TJ Piperacillin Sod/Tazobactam 50 mls @ 100 mls/hr 09/04/20 21:00 09/10/20 10:47 Sod 3.375 gm/ Sodium Chloride IV Infused Q6H TJ Infusion Vancomycin HCl 750 mg/ 275 mls @ 183.333 mls/hr 09/08/20 13:00 09/10/20 02:47 Vancomycin HCl 500 mg/ Sodium IV Infused Chloride Q12H [facility] Infusion Insulin Glargine 60 unit 09/10/20 09:00 09/10/20 08:54 Insulin Glargine,Hum.Rec.Anlog 100 Unit/Ml 10 Ml Vial SUBCUT Not Given DAILY [facility] Insulin Glargine 50 unit 09/09/20 21:00 09/09/20 21:16 Insulin Glargine,Hum.Rec.Anlog 100 Unit/Ml 10 Ml Vial SUBCUT 50 unit BEDTIME TJ Administration Insulin Human Lispro 0 unit 09/05/20 07:30 09/10/20 11:22 Insulin Lispro 100 Unit/Ml 3 Ml Vial SUBCUT Not Given QIDACHS [facility] Protocol Lisinopril 5 mg 09/05/20 09:00 09/10/20 08:53 Lisinopril 5 Mg Tablet PO 5 mg DAILY [facility] Administration Protocol Ondansetron HCl 4 mg 09/05/20 06:55 Ondansetron Hcl 4 Mg/2 Ml Vial IVPUSH Q8H PRN Nausea and Vomiting Pharmacy Consult 1 each 09/04/20 14:11 Consult Rx Perform Med Rec MISCELLANE ONCE PRN Consult order Pharmacy Consult 1 each 09/04/20 17:18 Consult Rx Vancomycin Dosing MISCELLANE DAILY PRN Consult order Pharmacy Consult 1 each 09/04/20 20:52 Consult Rx Vancomycin Dosing MISCELLANE DAILY PRN Consult order Polyethylene Glycol 17 gm 09/07/20 18:30 09/10/20 08:54 Polyethylene Glycol 3350 17 Gm Powd.Pack PO Not Given DAILY TJ Sodium Chloride 3 ml 09/05/20 08:00 09/10/20 08:52 0.9 % Sodium Chloride Flush 3 Ml Syringe IVFLUSH 3 ml QSHIFT TJ Administration Sodium Chloride 1 spray 09/09/20 20:21 09/09/20 21:18 Sodium Chloride 0.65 % Nasal 44 Ml Sprbtl NOSTRIL-B 1 spray Q1H PRN Administration Dry Nasal Passages Vitamin D 25 mcg 09/05/20 09:00 09/10/20 08:53 Cholecalciferol (Vitamin D3) 25 Mcg Tablet PO 25 mcg DAILY TJ Administration Labs CBC & Chem 7: 09/09/20 12:26 09/10/20 06:12 Microbiology Microbiology Results: Microbiology 09/04/20 15:00 Blood - Venous Blood Culture - Final Methicillin Res Staph Aureus 09/04/20 14:45 Blood - Venous Blood Culture - Final Methicillin Res Staph Aureus Assessment and Plan (1) Cellulitis: Status: Acute (2) Necrosis of toe: Status: Acute (3) Elevated erythrocyte sedimentation rate: Status: Acute Assessment and Plan: 60-year-old male with past medical history of diabetes as well as peripheral neuropathy who presents to the hospital with complaints of right toe wound, drainage Sepsis due to diabetic foot ulcer MRSA bacteremia from foot infection continue IV vancomycin and Zosyn day 6 monitor Vanco trough Follow-up repeat blood cultures MRI foot done shows no convincing evidence of osteomyelitis Status post angiogram and angioplasty by vascular surgery Vascular surgery following plan for amputation today Id following Hypomagnesemia replaced and resolved monitor electrolytes Diiabetes mellitus uncontrolled -continue Lantus b.i.d., continue sliding scale insulin and diabetic diet follow blood sugar closely and adjust medication. Metformin on hold Continue Neurontin Hypertension - BP stable continue lisinopril Cough - no sputum production, no increased dyspnea, COVID-19 negative, chest x-ray negative for any evidence of pneumonia, continue inhalers constipation Continue MiraLax continue lactulose Hyperlipidemia statin DVT prophylaxis: Heparin subQ
[2020-09-10 12:06] LABS: Glucose, Whole Blood 134 mg/dL (60-115)
--- NOTE | 2020-09-10 12:39 | HO.ANESPROP2 ---
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 If so, by whom?: No Do you feel safe in your current relationship?: No Current Relationship Is there a partner from a previous relationship who is making you feel unsafe now?: No Are you made to feel afraid or neglected: No Advance Directives: No Advance Directives Information Provided: Yes Do you have thoughts of harming others: None Do you have a plan to hurt others: No Plan Recently lost weight without trying: Yes service: Yes Current occupational status: unemployed Meds Allergies Allergy/AdvReac Type Severity Reaction Status Date / Time No Known Allergies Allergy Verified 07/15/20 11:10 [No Known Allergies*] Home Medications Medication Instructions Recorded Confirmed Type aspirin 81 mg PO DAILY 07/17/20 09/04/20 History atorvastatin 40 mg PO BEDTIME 07/17/20 09/04/20 History gabapentin 600 mg PO BEDTIME 07/17/20 09/04/20 History insulin degludec [Tresiba 80 unit SUBCUT QAM 07/17/20 09/04/20 History FlexTouch U-100] ipratropium-albuterol [Combivent 2 puff INHALATION Q6H PRN 07/17/20 09/04/20 History Respimat] liraglutide [Victoza 3-Chet] 1.8 mg SUBCUT DAILY 07/17/20 09/04/20 History lisinopril 5 mg PO DAILY 07/17/20 09/04/20 History metformin 1,000 mg PO BID 07/17/20 09/04/20 History bisacodyl 5 mg PO BID 09/04/20 09/04/20 History cholecalciferol (vitamin D3) 25 mcg PO DAILY 09/04/20 09/04/20 History fluoxetine 10 mg PO DAILY 09/04/20 09/04/20 History insulin degludec [Tresiba 65 unit SUBCUT BEDTIME 09/04/20 09/04/20 History FlexTouch U-100] Exam Exam Date and Time: September 10, 2020 1239 Height,Weight and Vital Signs: Height 6 ft 2 in Weight 131.542 kg Last Vital Signs Temp 98.3 F 09/10/20 12:02 Pulse 59 09/10/20 12:02 Resp 16 09/10/20 12:02 BP 115/53 L 09/10/20 12:02 Pulse Ox 96 09/10/20 12:02 Pertinent Lab Results Pertinent Lab Results: Laboratory Tests 09/04/20 09/04/20 09/04/20 14:44 14:44 14:45 WBC RBC Hgb Hct MCV MCH MCHC RDW Plt Count MPV Immature Gran % (Auto) Neut % (Auto) Lymph % (Auto) [place] % (Auto) Eos % (Auto) Baso % (Auto) Lymph # (Auto) [place]ff[place] # (Auto) Eos # (Auto) Baso # (Auto) Abs Immat Gran (auto) Absolute Neuts (auto) Absolute Nucleated RBC Nucleated RBC % (auto) Smear Tech's Comments ESR PT INR APTT Sodium Potassium Chloride Carbon Dioxide Anion Gap BUN Creatinine Estim Creat Clear Calc Estimated GFR POC Glucose Random Glucose Lactic Acid 1.2 Calcium Magnesium Ferritin Total Bilirubin Direct Bilirubin AST ALT Alkaline Phosphatase Lactate Dehydrogenase C-Reactive Protein B-Natriuretic Peptide 59 Total Protein Albumin Procalcitonin 0.18 Urine Color Urine Appearance Urine pH Ur Specific [place] Urine Protein Urine Glucose (UA) Urine Ketones Urine Blood Urine Nitrite Ur Leukocyte Esterase Vancomycin Trough Coronavirus (PCR) Influenza Type A (PCR) Influenza Type B (PCR) RSV RNA Qual (PCR) 09/04/20 09/04/20 09/04/20 14:45 14:45 14:46 WBC 12.1 H RBC 3.83 L Hgb 12.8 L Hct 35.8 L MCV 93.5 MCH 33.4 H MCHC 35.8 RDW 11.1 Plt Count 214 D MPV 10.3 Immature Gran % (Auto) 0.5 H Neut % (Auto) 79.4 H Lymph % (Auto) 6.9 L [place]ff[place] % (Auto) 12.5 H Eos % (Auto) 0.4 Baso % (Auto) 0.3 Lymph # (Auto) 0.8 L [place]ff[place] # (Auto) 1.5 H Eos # (Auto) 0.1 Baso # (Auto) 0.0 Abs Immat Gran (auto) 0.06 H Absolute Neuts (auto) 9.6 H Absolute Nucleated RBC 0.000 Nucleated RBC % (auto) 0.0 Smear Tech's Comments VERIFIED ESR PT 15.9 H D INR 1.3 H APTT 37.3 Sodium Potassium Chloride Carbon Dioxide Anion Gap BUN Creatinine Estim Creat Clear Calc Estimated GFR POC Glucose Random Glucose Lactic Acid Calcium Magnesium Ferritin 609 H Total Bilirubin Direct Bilirubin AST ALT Alkaline Phosphatase Lactate Dehydrogenase C-Reactive Protein B-Natriuretic Peptide Total Protein Albumin Procalcitonin Urine Color Urine Appearance Urine pH Ur Specific [place] Urine Protein Urine Glucose (UA) Urine Ketones Urine Blood Urine Nitrite Ur Leukocyte Esterase Vancomycin Trough Coronavirus (PCR) Influenza Type A (PCR) Influenza Type B (PCR) RSV RNA Qual (PCR) 09/04/20 09/04/20 09/04/20 14:46 14:46 15:00 WBC RBC Hgb Hct MCV MCH MCHC RDW Plt Count MPV Immature Gran % (Auto) Neut % (Auto) Lymph % (Auto) [place] % (Auto) Eos % (Auto) Baso % (Auto) Lymph # (Auto) [place] # (Auto) Eos # (Auto) Baso # (Auto) Abs Immat Gran (auto) Absolute Neuts (auto) Absolute Nucleated RBC Nucleated RBC % (auto) Smear Tech's Comments ESR 90 H PT INR APTT Sodium 131 L Potassium 4.4 Chloride 98 Carbon Dioxide 22 Anion Gap 15 BUN 27 H Creatinine 1.24 Estim Creat Clear Calc 90.1 Estimated GFR 59 POC Glucose Random Glucose 216 H Lactic Acid Calcium 8.3 L D Magnesium 1.5 L Ferritin Total Bilirubin 1.6 H Direct Bilirubin 0.9 H AST 36 D ALT 61 H Alkaline Phosphatase 134 H D Lactate Dehydrogenase 187 C-Reactive Protein 18.48 H B-Natriuretic Peptide Total Protein 6.7 Albumin 3.7 Procalcitonin Urine Color Urine Appearance Urine pH Ur Specific [place] Urine Protein Urine Glucose (UA) Urine Ketones Urine Blood Urine Nitrite Ur Leukocyte Esterase Vancomycin Trough Coronavirus (PCR) NEGATIVE Influenza Type A (PCR) NEGATIVE Influenza Type B (PCR) NEGATIVE RSV RNA Qual (PCR) NEGATIVE 09/04/20 09/04/20 09/05/20 20:00 22:07 08:16 WBC RBC Hgb Hct MCV MCH MCHC RDW Plt Count MPV Immature Gran % (Auto) Neut % (Auto) Lymph % (Auto) [place] % (Auto) Eos % (Auto) Baso % (Auto) Lymph # (Auto) [place] # (Auto) Eos # (Auto) Baso # (Auto) Abs Immat Gran (auto) Absolute Neuts (auto) Absolute Nucleated RBC Nucleated RBC % (auto) Smear Tech's Comments ESR PT INR APTT Sodium Potassium Chloride Carbon Dioxide Anion Gap BUN Creatinine Estim Creat Clear Calc Estimated GFR POC Glucose 293 H 315 H Random Glucose Lactic Acid Calcium Magnesium Ferritin Total Bilirubin Direct Bilirubin AST ALT Alkaline Phosphatase Lactate Dehydrogenase C-Reactive Protein B-Natriuretic Peptide Total Protein Albumin Procalcitonin Urine Color DARK YELLOW Urine Appearance HAZY Urine pH 5.5 Ur Specific [place] >= 1.030 H Urine Protein TRACE Urine Glucose (UA) 100 H Urine Ketones NEG Urine Blood NEG Urine Nitrite NEG Ur Leukocyte Esterase NEG Vancomycin Trough Coronavirus (PCR) Influenza Type A (PCR) Influenza Type B (PCR) RSV RNA Qual (PCR) 09/05/20 09/05/20 09/05/20 11:07 14:36 16:27 WBC RBC Hgb Hct MCV MCH MCHC RDW Plt Count MPV Immature Gran % (Auto) Neut % (Auto) Lymph % (Auto) [place] % (Auto) Eos % (Auto) Baso % (Auto) Lymph # (Auto) [place] # (Auto) Eos # (Auto) Baso # (Auto) Abs Immat Gran (auto) Absolute Neuts (auto) Absolute Nucleated RBC Nucleated RBC % (auto) Smear Tech's Comments ESR PT INR APTT Sodium Potassium Chloride Carbon Dioxide Anion Gap BUN Creatinine Estim Creat Clear Calc Estimated GFR POC Glucose 223 H 181 H 295 H Random Glucose Lactic Acid Calcium Magnesium Ferritin Total Bilirubin Direct Bilirubin AST ALT Alkaline Phosphatase Lactate Dehydrogenase C-Reactive Protein B-Natriuretic Peptide Total Protein Albumin Procalcitonin Urine Color Urine Appearance Urine pH Ur Specific [place] Urine Protein Urine Glucose (UA) Urine Ketones Urine Blood Urine Nitrite Ur Leukocyte Esterase Vancomycin Trough Coronavirus (PCR) Influenza Type A (PCR) Influenza Type B (PCR) RSV RNA Qual (PCR) 09/05/20 09/06/20 09/06/20 20:39 05:09 05:09 WBC 10.4 RBC 3.50 L Hgb 11.8 L Hct 32.9 L MCV 94.0 MCH 33.7 H MCHC 35.9 RDW 11.1 Plt Count 201 MPV 10.8 Immature Gran % (Auto) 0.6 H Neut % (Auto) 68.7 Lymph % (Auto) 15.6 L [place]ff[place] % (Auto) 13.0 H Eos % (Auto) 1.6 Baso % (Auto) 0.5 Lymph # (Auto) 1.6 [place] # (Auto) 1.4 H Eos # (Auto) 0.2 Baso # (Auto) 0.1 Abs Immat Gran (auto) 0.06 H Absolute Neuts (auto) 7.2 Absolute Nucleated RBC 0.000 Nucleated RBC % (auto) 0.0 Smear Tech's Comments ESR PT INR APTT Sodium Potassium Chloride Carbon Dioxide Anion Gap BUN Creatinine Estim Creat Clear Calc Estimated GFR POC Glucose 290 H Random Glucose Lactic Acid Calcium Magnesium Ferritin Total Bilirubin Direct Bilirubin AST ALT Alkaline Phosphatase Lactate Dehydrogenase C-Reactive Protein B-Natriuretic Peptide Total Protein Albumin Procalcitonin Urine Color Urine Appearance Urine pH Ur Specific [place] Urine Protein Urine Glucose (UA) Urine Ketones Urine Blood Urine Nitrite Ur Leukocyte Esterase Vancomycin Trough 7.8 L Coronavirus (PCR) Influenza Type A (PCR) Influenza Type B (PCR) RSV RNA Qual (PCR) 09/06/20 09/06/20 09/06/20 05:09 06:00 11:13 WBC RBC Hgb Hct MCV MCH MCHC RDW Plt Count MPV Immature Gran % (Auto) Neut % (Auto) Lymph % (Auto) [place] % (Auto) Eos % (Auto) Baso % (Auto) Lymph # (Auto) [place] # (Auto) Eos # (Auto) Baso # (Auto) Abs Immat Gran (auto) Absolute Neuts (auto) Absolute Nucleated RBC Nucleated RBC % (auto) Smear Tech's Comments ESR PT INR APTT Sodium 133 L Potassium 4.1 Chloride 101 Carbon Dioxide 20 L Anion Gap 16 BUN 28 H Creatinine 1.36 Estim Creat Clear Calc 82.2 Estimated GFR 53 POC Glucose 164 H 210 H Random Glucose 168 H Lactic Acid Calcium 7.6 L D Magnesium 2.0 Ferritin Total Bilirubin Direct Bilirubin AST ALT Alkaline Phosphatase Lactate Dehydrogenase C-Reactive Protein B-Natriuretic Peptide Total Protein Albumin Procalcitonin Urine Color Urine Appearance Urine pH Ur Specific [place] Urine Protein Urine Glucose (UA) Urine Ketones Urine Blood Urine Nitrite Ur Leukocyte Esterase Vancomycin Trough Coronavirus (PCR) Influenza Type A (PCR) Influenza Type B (PCR) RSV RNA Qual (PCR) 09/06/20 09/06/20 09/07/20 16:33 20:46 07:22 WBC RBC Hgb Hct MCV MCH MCHC RDW Plt Count MPV Immature Gran % (Auto) Neut % (Auto) Lymph % (Auto) [place] % (Auto) Eos % (Auto) Baso % (Auto) Lymph # (Auto) [place] # (Auto) Eos # (Auto) Baso # (Auto) Abs Immat Gran (auto) Absolute Neuts (auto) Absolute Nucleated RBC Nucleated RBC % (auto) Smear Tech's Comments ESR PT INR APTT Sodium Potassium Chloride Carbon Dioxide Anion Gap BUN Creatinine Estim Creat Clear Calc Estimated GFR POC Glucose 279 H 281 H 171 H Random Glucose Lactic Acid Calcium Magnesium Ferritin Total Bilirubin Direct Bilirubin AST ALT Alkaline Phosphatase Lactate Dehydrogenase C-Reactive Protein B-Natriuretic Peptide Total Protein Albumin Procalcitonin Urine Color Urine Appearance Urine pH Ur Specific [place] Urine Protein Urine Glucose (UA) Urine Ketones Urine Blood Urine Nitrite Ur Leukocyte Esterase Vancomycin Trough Coronavirus (PCR) Influenza Type A (PCR) Influenza Type B (PCR) RSV RNA Qual (PCR) 09/07/20 09/07/20 09/07/20 07:56 11:37 16:43 WBC RBC Hgb Hct MCV MCH MCHC RDW Plt Count MPV Immature Gran % (Auto) Neut % (Auto) Lymph % (Auto) [place] % (Auto) Eos % (Auto) Baso % (Auto) Lymph # (Auto) [place] # (Auto) Eos # (Auto) Baso # (Auto) Abs Immat Gran (auto) Absolute Neuts (auto) Absolute Nucleated RBC Nucleated RBC % (auto) Smear Tech's Comments ESR PT INR APTT Sodium 135 Potassium 4.2 Chloride 103 Carbon Dioxide 24 Anion Gap 12 BUN 22 H Creatinine 1.15 Estim Creat Clear Calc 97.2 Estimated GFR > 60 POC Glucose 295 H 259 H Random Glucose 169 H Lactic Acid Calcium 7.3 L Magnesium Ferritin Total Bilirubin Direct Bilirubin AST ALT Alkaline Phosphatase Lactate Dehydrogenase C-Reactive Protein B-Natriuretic Peptide Total Protein Albumin Procalcitonin Urine Color Urine Appearance Urine pH Ur Specific [place] Urine Protein Urine Glucose (UA) Urine Ketones Urine Blood Urine Nitrite Ur Leukocyte Esterase Vancomycin Trough Coronavirus (PCR) Influenza Type A (PCR) Influenza Type B (PCR) RSV RNA Qual (PCR) 09/07/20 09/07/20 09/08/20 20:36 23:13 07:28 WBC RBC Hgb Hct MCV MCH MCHC RDW Plt Count MPV Immature Gran % (Auto) Neut % (Auto) Lymph % (Auto) [place] % (Auto) Eos % (Auto) Baso % (Auto) Lymph # (Auto) [place] # (Auto) Eos # (Auto) Baso # (Auto) Abs Immat Gran (auto) Absolute Neuts (auto) Absolute Nucleated RBC Nucleated RBC % (auto) Smear Tech's Comments ESR PT INR APTT Sodium Potassium Chloride Carbon Dioxide Anion Gap BUN Creatinine Estim Creat Clear Calc Estimated GFR POC Glucose 248 H 158 H Random Glucose Lactic Acid Calcium Magnesium Ferritin Total Bilirubin Direct Bilirubin AST ALT Alkaline Phosphatase Lactate Dehydrogenase C-Reactive Protein B-Natriuretic Peptide Total Protein Albumin Procalcitonin Urine Color Urine Appearance Urine pH Ur Specific [place] Urine Protein Urine Glucose (UA) Urine Ketones Urine Blood Urine Nitrite Ur Leukocyte Esterase Vancomycin Trough 9.6 L Coronavirus (PCR) Influenza Type A (PCR) Influenza Type B (PCR) RSV RNA Qual (PCR) 09/08/20 09/08/20 09/08/20 11:52 16:53 20:00 WBC RBC Hgb Hct MCV MCH MCHC RDW Plt Count MPV Immature Gran % (Auto) Neut % (Auto) Lymph % (Auto) [place] % (Auto) Eos % (Auto) Baso % (Auto) Lymph # (Auto) [place] # (Auto) Eos # (Auto) Baso # (Auto) Abs Immat Gran (auto) Absolute Neuts (auto) Absolute Nucleated RBC Nucleated RBC % (auto) Smear Tech's Comments ESR PT INR APTT Sodium Potassium Chloride Carbon Dioxide Anion Gap BUN Creatinine Estim Creat Clear Calc Estimated GFR POC Glucose 257 H 303 H 307 H Random Glucose Lactic Acid Calcium Magnesium Ferritin Total Bilirubin Direct Bilirubin AST ALT Alkaline Phosphatase Lactate Dehydrogenase C-Reactive Protein B-Natriuretic Peptide Total Protein Albumin Procalcitonin Urine Color Urine Appearance Urine pH Ur Specific [place] Urine Protein Urine Glucose (UA) Urine Ketones Urine Blood Urine Nitrite Ur Leukocyte Esterase Vancomycin Trough Coronavirus (PCR) Influenza Type A (PCR) Influenza Type B (PCR) RSV RNA Qual (PCR) 09/09/20 09/09/20 09/09/20 07:25 11:14 11:58 WBC RBC Hgb Hct MCV MCH MCHC RDW Plt Count MPV Immature Gran % (Auto) Neut % (Auto) Lymph % (Auto) [place] % (Auto) Eos % (Auto) Baso % (Auto) Lymph # (Auto) [place] # (Auto) Eos # (Auto) Baso # (Auto) Abs Immat Gran (auto) Absolute Neuts (auto) Absolute Nucleated RBC Nucleated RBC % (auto) Smear Tech's Comments ESR PT INR APTT Sodium Potassium Chloride Carbon Dioxide Anion Gap BUN Creatinine Estim Creat Clear Calc Estimated GFR POC Glucose 159 H 279 H Random Glucose Lactic Acid Calcium Magnesium Ferritin Total Bilirubin Direct Bilirubin AST ALT Alkaline Phosphatase Lactate Dehydrogenase C-Reactive Protein B-Natriuretic Peptide Total Protein Albumin Procalcitonin Urine Color Urine Appearance Urine pH Ur Specific [place] Urine Protein Urine Glucose (UA) Urine Ketones Urine Blood Urine Nitrite Ur Leukocyte Esterase Vancomycin Trough 11.7 Coronavirus (PCR) Influenza Type A (PCR) Influenza Type B (PCR) RSV RNA Qual (PCR) 09/09/20 09/09/20 09/09/20 12:26 12:26 16:01 WBC 11.7 H RBC 3.40 L Hgb 11.2 L Hct 32.6 L MCV 95.9 MCH 32.9 MCHC 34.4 RDW 11.3 Plt Count 207 MPV 10.4 Immature Gran % (Auto) 2.5 H Neut % (Auto) 67.5 Lymph % (Auto) 17.6 L [place] % (Auto) 9.5 Eos % (Auto) 2.5 Baso % (Auto) 0.4 Lymph # (Auto) 2.1 [place] # (Auto) 1.1 Eos # (Auto) 0.3 Baso # (Auto) 0.1 Abs Immat Gran (auto) 0.29 H Absolute Neuts (auto) 7.9 Absolute Nucleated RBC 0.000 Nucleated RBC % (auto) 0.0 Smear Tech's Comments ESR PT INR APTT Sodium 134 L Potassium 4.9 Chloride 100 Carbon Dioxide 26 Anion Gap 13 BUN 14 Creatinine 1.22 Estim Creat Clear Calc 91.6 Estimated GFR > 60 POC Glucose 274 H Random Glucose 275 H D Lactic Acid Calcium 8.1 L D Magnesium Ferritin Total Bilirubin Direct Bilirubin AST ALT Alkaline Phosphatase Lactate Dehydrogenase C-Reactive Protein B-Natriuretic Peptide Total Protein Albumin Procalcitonin Urine Color Urine Appearance Urine pH Ur Specific [place] Urine Protein Urine Glucose (UA) Urine Ketones Urine Blood Urine Nitrite Ur Leukocyte Esterase Vancomycin Trough Coronavirus (PCR) Influenza Type A (PCR) Influenza Type B (PCR) RSV RNA Qual (PCR) 09/09/20 09/10/20 09/10/20 20:28 06:12 07:50 WBC RBC Hgb Hct MCV MCH MCHC RDW Plt Count MPV Immature Gran % (Auto) Neut % (Auto) Lymph % (Auto) [place] % (Auto) Eos % (Auto) Baso % (Auto) Lymph # (Auto) [place] # (Auto) Eos # (Auto) Baso # (Auto) Abs Immat Gran (auto) Absolute Neuts (auto) Absolute Nucleated RBC Nucleated RBC % (auto) Smear Tech's Comments ESR PT INR APTT Sodium 136 Potassium 4.3 Chloride 102 Carbon Dioxide 24 Anion Gap 14 BUN 10 Creatinine 1.00 Estim Creat Clear Calc 111.8 Estimated GFR > 60 POC Glucose 267 H 175 H Random Glucose 183 H Lactic Acid Calcium 7.9 L Magnesium Ferritin Total Bilirubin Direct Bilirubin AST ALT Alkaline Phosphatase Lactate Dehydrogenase C-Reactive Protein B-Natriuretic Peptide Total Protein Albumin Procalcitonin Urine Color Urine Appearance Urine pH Ur Specific [place] Urine Protein Urine Glucose (UA) Urine Ketones Urine Blood Urine Nitrite Ur Leukocyte Esterase Vancomycin Trough Coronavirus (PCR) Influenza Type A (PCR) Influenza Type B (PCR) RSV RNA Qual (PCR) 09/10/20 11:43 WBC RBC Hgb Hct MCV MCH MCHC RDW Plt Count MPV Immature Gran % (Auto) Neut % (Auto) Lymph % (Auto) [place] % (Auto) Eos % (Auto) Baso % (Auto) Lymph # (Auto) [place] # (Auto) Eos # (Auto) Baso # (Auto) Abs Immat Gran (auto) Absolute Neuts (auto) Absolute Nucleated RBC Nucleated RBC % (auto) Smear Tech's Comments ESR PT INR APTT Sodium Potassium Chloride Carbon Dioxide Anion Gap BUN Creatinine Estim Creat Clear Calc Estimated GFR POC Glucose 134 H Random Glucose Lactic Acid Calcium Magnesium Ferritin Total Bilirubin Direct Bilirubin AST ALT Alkaline Phosphatase Lactate Dehydrogenase C-Reactive Protein B-Natriuretic Peptide Total Protein Albumin Procalcitonin Urine Color Urine Appearance Urine pH Ur Specific [place] Urine Protein Urine Glucose (UA) Urine Ketones Urine Blood Urine Nitrite Ur Leukocyte Esterase Vancomycin Trough Coronavirus (PCR) Influenza Type A (PCR) Influenza Type B (PCR) RSV RNA Qual (PCR) Airway Mallampati Class: II TM Dist: >3cm Neck ROM: Full Assessment and Plan Assessment Anesthesia Assessment: Anesthesia Plan Discussed and Chart Reviewed Final Anesthetic Review NPO: Yes ASA Class: III Final Preanesthetic Review: No Changes in Pt Med Stat, Meds/Allgs Chart Reviewed, Consent Obtained/Reviewed and Anes Risks/Benef Reviewed Patient Risk: Intermediate Procedure Risk: Low Assessment/Block/Sedation in SS: Assess/Block/Sedation-SS Anesthetic Plan Anesthetic Plan: MAC: Disposition: Standard PACU
[2020-09-10] MEDS: Lactated Ringers 1,000 ML 20 ML IVCONT (12:46)
[2020-09-10 16:37] LABS: Glucose, Whole Blood 132 mg/dL (60-115)
[2020-09-10] MEDS: Heparin Sodium,Porcine 5,000 UNIT/ML VIAL 5000 UNIT SUBCUT (18:38)
--- NOTE | 2020-09-10 21:22 | OP_ITS ---
SURGEON: Cameron Figueroa MD INDICATIONS: Ramy is a 60-year-old diabetic gentleman with nonhealing great toe ulcer. It has been progressing for sometime. He has had a good course of antibiotics. He now presents for removal of the great toe. Risks, benefits, and complications were discussed in detail with the patient and the patient understood and consented. PREOPERATIVE DIAGNOSIS: POSTOPERATIVE DIAGNOSIS: PROCEDURE PERFORMED: Right great toe amputation. ESTIMATED BLOOD LOSS: Minimal. COMPLICATIONS: ANESTHESIA: Monitored with local. ASSISTANTS: SPECIMENS: One. PREPROCEDURE DIAGNOSIS: Nonhealing right great toe ulcer. POSTPROCEDURE DIAGNOSIS: Nonhealing right great toe ulcer. DESCRIPTION OF PROCEDURE: The patient was taken to the operating room prior to which a time-out was called for patient identification and site verification. Right foot was prepped and draped in standard surgical fashion. The foot was infiltrated with 1% lidocaine local. A curvilinear fishmouth incision was made over the great toe, taken down to the metatarsal head. We then resected this toe in its entirety. Once this was done, necrotic tissue was removed as well. We reapproximated deep layer using 2-0 Polysorb. This was done in an interrupted manner. Once this was done, we reapproximated the skin with a 2-0 nylon in a mattress fashion. Xeroform and sterile dressings were applied. At the end of the case, sponge, needle and instrument counts were correct. The patient tolerated the procedure well, returned to Recovery with stable vitals. DRAINS: None. MD TIM Trivedi/TAMARL / [id number]
[2020-09-10 21:30] LABS: Glucose, Whole Blood 237 mg/dL (60-115)
[2020-09-10] MEDS: Atorvastatin Calcium 40 MG TABLET PO (21:33)
[2020-09-10] MEDS: Gabapentin 600 MG TABLET PO (21:33)
[2020-09-10] MEDS: Insulin Lispro 100 UNIT/ML 3 ML VIAL SUBCUT (21:33)
[2020-09-10] MEDS: Insulin Glargine,Hum.rec.anlog 100 UNIT/ML 10 ML VIAL 50 UNIT SUBCUT (21:33)
[2020-09-11] VITALS (7 sets, daily range): BP systolic 111–163; BP diastolic 60–84; PULSE 63–84; RESP 18–20; TEMP 36.3–36.8; O2SAT 93–96
[2020-09-11 01:02] LABS: Vancomycin Trough 15.5 mcg/mL (10.0-20.0)
[2020-09-11] MEDS: 0.9 % Sodium Chloride Flush 3 ML SYRINGE IVFLUSH ×3 (01:47→16:28)
[2020-09-11] MEDS: Piperacillin Sodium/Tazobactam 3.375 GM in 0.9 % Sodium Chloride 50 ML IV ×3 (03:18→15:40)
[2020-09-11] MEDS: Heparin Sodium,Porcine 5,000 UNIT/ML VIAL 5000 UNIT SUBCUT ×2 (05:47→18:36)
[2020-09-11 07:19] LABS: Anion Gap 10 (12-20); Blood Urea Nitrogen 14 mg/dL (9-16); Calcium 8.3 mg/dL (8.4-10.2); Carbon Dioxide 31 mmol/L (22-29); Chloride 100 mmol/L (96-108); Creatinine Clr Calc Pharmacy 96.4; Estimated Glomerular Filt Rate > 60; Glucose Random 159 mg/dL (60-115); Potassium 4.5 mmol/l (3.3-5.1); Sodium 136 mmol/L (135-145)
[2020-09-11 07:43] LABS: Glucose, Whole Blood 155 mg/dL (60-115)
[2020-09-11] MEDS: Insulin Glargine,Hum.rec.anlog 100 UNIT/ML 10 ML VIAL 60 UNIT SUBCUT ×2 (08:13→21:26)
[2020-09-11] MEDS: polyethylene glycoL 3350 17 GM POWD.PACK PO (08:13)
[2020-09-11] MEDS: Insulin Lispro 100 UNIT/ML 3 ML VIAL SUBCUT ×4 (08:13→21:26)
[2020-09-11] MEDS: Acetaminophen 325 MG TABLET 650 MG PO ×2 (08:14→15:14)
[2020-09-11] MEDS: Clopidogrel Bisulfate 75 MG TABLET PO (08:14)
[2020-09-11] MEDS: Cholecalciferol (Vitamin D3) 25 MCG TABLET PO (08:15)
[2020-09-11] MEDS: FLUoxetine HCl 10 MG CAPSULE PO (08:15)
[2020-09-11] MEDS: Aspirin Enteric Coated 81 MG TABLET.DR PO (08:15)
[2020-09-11] MEDS: bisacodyL 5 MG TABLET.DR PO ×2 (08:15→21:25)
[2020-09-11] MEDS: Benzonatate 100 MG CAPSULE 200 MG PO ×3 (08:15→21:24)
--- NOTE | 2020-09-11 11:06 | HO.VASCPN ---
Subjective Subjective Date of Service: 09/11/20 Patient reports: no new complaints and feels better Interval history: Patient is postop day 1, status post great toe amp. No interval issues. Pain well controlled. Physical Exam Vital Signs: Vital Signs: Last Vital Signs Temp 97.4 F 09/11/20 08:00 Pulse 84 09/11/20 08:00 Resp 18 09/11/20 08:00 BP 111/64 09/11/20 08:00 Pulse Ox 96 09/11/20 08:00 Body Mass Index 37.2 Const: General: cooperative, healthy appearing and no acute distress Orientation/consciousness: oriented to person, oriented to place and oriented to time HENMT: Head: Yes normal to inspection Neck: Carotids: no bruits Chest: Chest palpation & inspection: normal inspection of the chest Resp: Effort & Inspection: normal respiratory effort and able to speak in complete sentences Auscultation: clear to auscultation bilaterally Cardio: Rate: regular rate Heart sounds: S1 normal heart sound present and S2 normal heart sound present GI: Inspection: Yes normal to inspection Skin: General skin exam: no rashes or lesions noted Wounds: amputation site (Dressing intact, some bloody drainage) Neuro: General: oriented to person, oriented to place, oriented to time and CN's II-XI intact bilaterally Extrem: General: Yes normal to inspection, Yes full ROM and Yes no clubbing, cyanosis or edema Psych: Appearance: grossly normal and well kempt Speech and movement: Normal speech and movement present Affect: normal affect Progress Note: A&P Assessment and plan (1) Necrosis of toe: Status: Acute Assessment and Plan: Patient is postop day 1 status post toe amp. Doing well. Will plan for dressing change for tomorrow. Continue antibiotics for now. I do believe that I resected all of the infected bone. Concern is that blood is positive for MRSA. Will need longer course of antibiotics. Case discussed with Infectious Disease. Will change dressing tomorrow. Thank you for allowing me to participate in his care. Fall Risk Details Current Medications: Current Medications Generic Name Dose Route Start Last Admin Trade Name Freq PRN Reason Stop Dose Admin Acetaminophen 650 mg 09/05/20 06:55 09/11/20 08:14 Acetaminophen 325 Mg Tablet PO 650 mg Q6H PRN Administration Pain, Mild (Pain Scale 1-3) Artificial Tears 1 drop 09/07/20 18:26 09/07/20 21:47 Artificial Tears 15 Ml Drops EYE-BOTH 1 drop Q6H PRN Administration Dry Eyes Aspirin 81 mg 09/05/20 09:00 09/11/20 08:15 Aspirin Enteric Coated 81 Mg Tablet. PO 81 mg DAILY TJ Administration Atorvastatin Calcium 40 mg 09/04/20 21:00 09/10/20 21:33 Atorvastatin Calcium 40 Mg Tablet PO 40 mg BEDTIME TJ Administration Benzonatate 200 mg 09/05/20 21:00 09/11/20 08:15 Benzonatate 100 Mg Capsule PO 200 mg TID TJ Administration Bisacodyl 5 mg 09/04/20 21:00 09/11/20 08:15 Bisacodyl 5 Mg Tablet. PO 5 mg BID TJ Administration Clopidogrel Bisulfate 75 mg 09/05/20 15:50 09/11/20 08:14 Clopidogrel Bisulfate 75 Mg Tablet PO 75 mg DAILY TJ Administration Docusate Sodium 100 mg 09/05/20 06:55 09/06/20 21:05 Docusate Sodium 100 Mg Capsule PO 100 mg DAILY PRN Administration Constipation Fluoxetine HCl 10 mg 09/05/20 09:00 09/11/20 08:15 Fluoxetine Hcl 10 Mg Capsule PO 10 mg DAILY TJ Administration Gabapentin 600 mg 09/04/20 21:00 09/10/20 21:33 Gabapentin 600 Mg Tablet PO 600 mg BEDTIME TJ Administration Guaifenesin/Dextromethorphan 10 ml 09/05/20 17:19 09/09/20 09:41 Guaifenesin Dm 100/10/5 Ml 5 Ml Syrup PO 10 ml Q4H PRN Administration cough Heparin Sodium (Porcine) 5,000 unit 09/05/20 06:45 09/11/20 05:47 Heparin Sodium,Porcine 5,000 Unit/Ml Vial SUBCUT 5,000 unit Q12H TJ Administration Piperacillin Sod/Tazobactam 50 mls @ 100 mls/hr 09/04/20 21:00 09/11/20 09:56 Sod 3.375 gm/ Sodium Chloride IV Infused Q6H TJ Infusion Vancomycin HCl 750 mg/ 275 mls @ 183.333 mls/hr 09/08/20 13:00 09/11/20 03:20 Vancomycin HCl 500 mg/ Sodium IV Infused Chloride Q12H TJ Infusion Lactated Ringer's 1,000 mls @ 20 mls/hr 09/10/20 12:45 09/10/20 16:25 Lr IVCONT Infused .Q24H TJ Infusion Insulin Glargine 60 unit 09/10/20 09:00 09/11/20 08:13 Insulin Glargine,Hum.Rec.Anlog 100 Unit/Ml 10 Ml Vial SUBCUT 60 unit DAILY TJ Administration Insulin Glargine 50 unit 09/09/20 21:00 09/10/20 21:33 Insulin Glargine,Hum.Rec.Anlog 100 Unit/Ml 10 Ml Vial SUBCUT 50 unit BEDTIME TJ Administration Insulin Human Lispro 0 unit 09/05/20 07:30 09/11/20 08:13 Insulin Lispro 100 Unit/Ml 3 Ml Vial SUBCUT 2 unit QIDACHS TJ Administration Protocol Lisinopril 5 mg 09/05/20 09:00 09/11/20 08:15 Lisinopril 5 Mg Tablet PO 5 mg DAILY TJ Administration Protocol Ondansetron HCl 4 mg 09/05/20 06:55 Ondansetron Hcl 4 Mg/2 Ml Vial IVPUSH Q8H PRN Nausea and Vomiting Pharmacy Consult 1 each 09/04/20 14:11 Consult Rx Perform Med Rec MISCELLANE ONCE PRN Consult order Pharmacy Consult 1 each 09/04/20 17:18 Consult Rx Vancomycin Dosing MISCELLANE DAILY PRN Consult order Pharmacy Consult 1 each 09/04/20 20:52 Consult Rx Vancomycin Dosing MISCELLANE DAILY PRN Consult order Polyethylene Glycol 17 gm 09/07/20 18:30 09/11/20 08:13 Polyethylene Glycol 3350 17 Gm Powd.Pack PO 17 gm DAILY TJ Administration Sodium Chloride 3 ml 09/05/20 08:00 09/11/20 08:22 0.9 % Sodium Chloride Flush 3 Ml Syringe IVFLUSH 3 ml QSHIFT TJ Administration Sodium Chloride 1 spray 09/09/20 20:21 09/09/20 21:18 Sodium Chloride 0.65 % Nasal 44 Ml Sprbtl NOSTRIL-B 1 spray Q1H PRN Administration Dry Nasal Passages Vitamin D 25 mcg 09/05/20 09:00 09/11/20 08:15 Cholecalciferol (Vitamin D3) 25 Mcg Tablet PO 25 mcg DAILY TJ Administration Time Spent With Patient Time: Total time spent is greater than 50% in coordination of care (as documented) at patient's floor/unit and/or counseling patient: Time with patient: 25 - 35 minutes
[2020-09-11 11:26] LABS: Glucose, Whole Blood 249 mg/dL (60-115)
--- NOTE | 2020-09-11 13:55 | HO.POSTANES ---
Post Anesthesia Evaluation Post Anesthesia Evaluation Vital Signs: Vital Signs Temp Pulse Resp BP Pulse Ox 09/11/20 12:00 97.9 F 68 18 158/84 H 93 09/11/20 08:00 97.4 F 84 18 111/64 96 09/11/20 04:00 98.2 F 64 18 148/65 H 96 Anesthesia: Monitored Mental Status: Awake Pain Control: Satisfactory Nausea/Vomiting: None Hydration: Adequate Anesthesia-Related Issues: No Anes. Related Issues
--- NOTE | 2020-09-11 14:04 | P.PNIM_ITS ---
Subjective Subjective Date of Service: 09/11/20 Interval History: Patient admitted for right big toe infection, Patient status post toe amputation yesterday redness and swelling improving Review of Systems General no headache, no dizziness, no fever chills. CVS no chest pain, no palpitation. Respiratory dry cough, no sputum production no respiratory distress. Gastrointestinal no nausea, no vomiting, abdominal pain with coughing Constitutional Constitutional: Reports weakness Neurologic Neurologic: Reports weakness Physical Exam Vital Signs: Vital Signs: Last Vital Signs Temp 97.9 F 09/11/20 12:00 Pulse 68 09/11/20 12:00 Resp 18 09/11/20 12:00 BP 158/84 H 09/11/20 12:00 Pulse Ox 93 09/11/20 12:00 Body Mass Index 37.2 Const: General: cooperative and no acute distress Orientation/consciousness: patient oriented x3 Eyes: General: appearance normal, both eyes and all related structures Resp: Effort & Inspection: normal respiratory effort and able to speak in complete sentences Cardio: Rate: regular rate Rhythm: regular rhythm GI: Palpation (GI): Soft to palpation Auscultation: normal bowel sounds Skin: General skin exam: no rashes or lesions noted Neuro: General: patient oriented x3 Cognition (Neuro): normal cognition Extrem: Other: Status post toe amputation dressing in place General: Yes nor mal to inspection Objective Data Current Medications Generic Name Dose Route Start Last Admin Trade Name Freq PRN Reason Stop Dose Admin Acetaminophen 650 mg 09/05/20 06:55 09/11/20 08:14 Acetaminophen 325 Mg Tablet PO 650 mg Q6H PRN Administration Pain, Mild (Pain Scale 1-3) Artificial Tears 1 drop 09/07/20 18:26 09/07/20 21:47 Artificial Tears 15 Ml Drops EYE-BOTH 1 drop Q6H PRN Administration Dry Eyes Aspirin 81 mg 09/05/20 09:00 09/11/20 08:15 Aspirin Enteric Coated 81 Mg Tablet. PO 81 mg DAILY TJ Administration Atorvastatin Calcium 40 mg 09/04/20 21:00 09/10/20 21:33 Atorvastatin Calcium 40 Mg Tablet PO 40 mg BEDTIME TJ Administration Benzonatate 200 mg 09/05/20 21:00 09/11/20 08:15 Benzonatate 100 Mg Capsule PO 200 mg TID TJ Administration Bisacodyl 5 mg 09/04/20 21:00 09/11/20 08:15 Bisacodyl 5 Mg Tablet. PO 5 mg BID TJ Administration Clopidogrel Bisulfate 75 mg 09/05/20 15:50 09/11/20 08:14 Clopidogrel Bisulfate 75 Mg Tablet PO 75 mg DAILY TJ Administration Docusate Sodium 100 mg 09/05/20 06:55 09/06/20 21:05 Docusate Sodium 100 Mg Capsule PO 100 mg DAILY PRN Administration Constipation Fluoxetine HCl 10 mg 09/05/20 09:00 09/11/20 08:15 Fluoxetine Hcl 10 Mg Capsule PO 10 mg DAILY TJ Administration Gabapentin 600 mg 09/04/20 21:00 09/10/20 21:33 Gabapentin 600 Mg Tablet PO 600 mg BEDTIME TJ Administration Guaifenesin/Dextromethorphan 10 ml 09/05/20 17:19 09/09/20 09:41 Guaifenesin Dm 100/10/5 Ml 5 Ml Syrup PO 10 ml Q4H PRN Administration cough Heparin Sodium (Porcine) 5,000 unit 09/05/20 06:45 09/11/20 05:47 Heparin Sodium,Porcine 5,000 Unit/Ml Vial SUBCUT 5,000 unit Q12H TJ Administration Piperacillin Sod/Tazobactam 50 mls @ 100 mls/hr 09/04/20 21:00 09/11/20 09:56 Sod 3.375 gm/ Sodium Chloride IV Infused Q6H TJ Infusion Vancomycin HCl 750 mg/ 275 mls @ 183.333 mls/hr 09/08/20 13:00 09/11/20 13:24 Vancomycin HCl 500 mg/ Sodium IV 183.33 mls/hr Chloride Q12H TJ Administration Lactated Ringer's 1,000 mls @ 20 mls/hr 09/10/20 12:45 09/11/20 13:25 Lr IVCONT Not Given .Q24H TJ Insulin Glargine 60 unit 09/10/20 09:00 09/11/20 08:13 Insulin Glargine,Hum.Rec.Anlog 100 Unit/Ml 10 Ml Vial SUBCUT 60 unit DAILY TJ Administration Insulin Glargine 50 unit 09/09/20 21:00 09/10/20 21:33 Insulin Glargine,Hum.Rec.Anlog 100 Unit/Ml 10 Ml Vial SUBCUT 50 unit BEDTIME TJ Administration Insulin Human Lispro 0 unit 09/05/20 07:30 09/11/20 11:46 Insulin Lispro 100 Unit/Ml 3 Ml Vial SUBCUT 4 unit QIDACHS TJ Administration Protocol Lisinopril 5 mg 09/05/20 09:00 09/11/20 08:15 Lisinopril 5 Mg Tablet PO 5 mg DAILY TJ Administration Protocol Ondansetron HCl 4 mg 09/05/20 06:55 Ondansetron Hcl 4 Mg/2 Ml Vial IVPUSH Q8H PRN Nausea and Vomiting Pharmacy Consult 1 each 09/04/20 14:11 Consult Rx Perform Med Rec MISCELLANE ONCE PRN Consult order Pharmacy Consult 1 each 09/04/20 17:18 Consult Rx Vancomycin Dosing MISCELLANE DAILY PRN Consult order Pharmacy Consult 1 each 09/04/20 20:52 Consult Rx Vancomycin Dosing MISCELLANE DAILY PRN Consult order Polyethylene Glycol 17 gm 09/07/20 18:30 09/11/20 08:13 Polyethylene Glycol 3350 17 Gm Powd.Pack PO 17 gm DAILY TJ Administration Sodium Chloride 3 ml 09/05/20 08:00 09/11/20 08:22 0.9 % Sodium Chloride Flush 3 Ml Syringe IVFLUSH 3 ml QSHIFT TJ Administration Sodium Chloride 1 spray 09/09/20 20:21 09/09/20 21:18 Sodium Chloride 0.65 % Nasal 44 Ml Sprbtl NOSTRIL-B 1 spray Q1H PRN Administration Dry Nasal Passages Vitamin D 25 mcg 09/05/20 09:00 09/11/20 08:15 Cholecalciferol (Vitamin D3) 25 Mcg Tablet PO 25 mcg DAILY TJ Administration Labs CBC & Chem 7: 09/09/20 12:26 09/11/20 06:02 Microbiology Microbiology Results: Microbiology 09/04/20 15:00 Blood - Venous Blood Culture - Final Methicillin Res Staph Aureus 09/04/20 14:45 Blood - Venous Blood Culture - Final Methicillin Res Staph Aureus Assessment and Plan (1) Cellulitis: Status: Acute (2) Necrosis of toe: Status: Acute (3) Elevated erythrocyte sedimentation rate: Status: Acute Assessment and Plan: 60-year-old male with past medical history of diabetes as well as peripheral neuropathy who presents to the hospital with complaints of right toe wound, drainage Sepsis due to diabetic foot ulcer MRSA bacteremia from foot infection Status post angiogram and angioplasty by vascular surgery Status post right toe amputation on continue IV vancomycin day 7 monitor Vanco trough Will stop Zosyn as blood culture growing MRSA Follow-up repeat blood cultures MRI foot done shows no convincing evidence of osteomyelitis Hypomagnesemia replaced and resolved monitor electrolytes Diiabetes mellitus uncontrolled -continue Lantus b.i.d., continue sliding scale insulin and diabetic diet follow blood sugar closely and adjust medication. Metformin on hold Continue Neurontin Hypertension - BP stable continue lisinopril Cough - no sputum production, no increased dyspnea, COVID-19 negative, chest x-ray negative for any evidence of pneumonia, continue inhalers constipation Continue MiraLax continue lactulose Hyperlipidemia statin DVT prophylaxis: Heparin subQ
[2020-09-11 16:15] LABS: Glucose, Whole Blood 274 mg/dL (60-115)
[2020-09-11 20:33] LABS: Glucose, Whole Blood 273 mg/dL (60-115)
[2020-09-11] MEDS: Atorvastatin Calcium 40 MG TABLET PO (21:25)
[2020-09-11] MEDS: NaPROXEN 250 MG TABLET PO (21:25)
[2020-09-11] MEDS: Gabapentin 600 MG TABLET PO (21:25)
[2020-09-11] MEDS: Insulin Glargine,Hum.rec.anlog 100 UNIT/ML 10 ML VIAL 50 UNIT SUBCUT (21:38)
[2020-09-12] VITALS (7 sets, daily range): BP systolic 128–154; BP diastolic 68–82; PULSE 59–74; RESP 17–20; TEMP 36.1–36.9; O2SAT 91–97
[2020-09-12] MEDS: 0.9 % Sodium Chloride Flush 3 ML SYRINGE IVFLUSH ×3 (00:56→23:22)
[2020-09-12] MEDS: Heparin Sodium,Porcine 5,000 UNIT/ML VIAL 5000 UNIT SUBCUT (05:52)
[2020-09-12 06:15] LABS: MANUAL DIFF FLAG NO
[2020-09-12 06:26] LABS: Basophils Absolute Auto 0.1 X10*3/uL (0.0-0.2); Basophils Percent Auto 0.7 % (0-2); Eosinophils Absolute Auto 0.3 X10*3/uL (0.0-0.4); Eosinophils Percent Auto 2.7 % (0-4); Hematocrit 34.9 % (42-52); Hemoglobin 11.9 g/dl (14.0-18.0); Imm Gran Pct Auto 4.8 % (0.0-0.4); Lymphocytes Absolute Auto 2.6 X10*3/uL (1.2-4.9); Lymphocytes Percent Auto 24.5 % (20-40); Mean Corpuscular HGB Conc 34.1 g/dl (31.0-36.0); Mean Corpuscular Hemoglobin 32.7 pg (27.0-33.0); Mean Corpuscular Volume 95.9 fL (80-98); Mean Platelet Volume 10.9 fL (9.4-12.4); Monocytes Absolute Auto 0.9 X10*3/uL (0.1-1.2); Monocytes Percent Auto 8.7 % (2-11); Neutrophils Absolute Auto 6.2 X10*3/uL (2.0-8.3); Neutrophils Percent Auto 58.6 % (45-73); Red Blood Count 3.64 X10*6/uL (4.60-5.80); White Blood Count 10.5 X10*3/uL (4.8-10.8)
[2020-09-12 07:00] LABS: Platelet Count 82 X10*3/uL (160-400)
[2020-09-12 07:05] LABS: Anion Gap 14 (12-20); Blood Urea Nitrogen 12 mg/dL (9-16); Calcium 8.4 mg/dL (8.4-10.2); Carbon Dioxide 25 mmol/L (22-29); Chloride 103 mmol/L (96-108); Creatinine Clr Calc Pharmacy 124.2; Estimated Glomerular Filt Rate > 60; Glucose Random 119 mg/dL (60-115); Potassium 4.2 mmol/l (3.3-5.1); Sodium 138 mmol/L (135-145)
[2020-09-12 07:36] LABS: Glucose, Whole Blood 107 mg/dL (60-115)
[2020-09-12] MEDS: polyethylene glycoL 3350 17 GM POWD.PACK PO (08:28)
[2020-09-12] MEDS: Insulin Glargine,Hum.rec.anlog 100 UNIT/ML 10 ML VIAL 60 UNIT SUBCUT (08:31)
[2020-09-12] MEDS: Cholecalciferol (Vitamin D3) 25 MCG TABLET PO (08:32)
[2020-09-12] MEDS: FLUoxetine HCl 10 MG CAPSULE PO (08:32)
[2020-09-12] MEDS: Clopidogrel Bisulfate 75 MG TABLET PO (08:33)
[2020-09-12] MEDS: Aspirin Enteric Coated 81 MG TABLET.DR PO (08:33)
[2020-09-12] MEDS: bisacodyL 5 MG TABLET.DR PO ×2 (08:33→20:23)
[2020-09-12] MEDS: Benzonatate 100 MG CAPSULE 200 MG PO ×3 (08:33→20:23)
--- NOTE | 2020-09-12 10:42 | MHC.CARE ---
CARE Team followed up with Pt regarding interest in therapy referral. Pt specifically requesting in-home therapy. CARE Team discussed limitations due to COVID. CARE Team placed referral to [facility]. Pt aware they may not be actively be providing in-home therapy but is a service they offer.
[2020-09-12 11:23] LABS: Glucose, Whole Blood 227 mg/dL (60-115)
--- NOTE | 2020-09-12 11:41 | P.PNIM_ITS ---
Subjective Subjective Date of Service: 09/13/20 Interval History: Patient admitted for right big toe infection, Patient status post toe amputation Review of Systems General no headache, no dizziness, no fever chills. CVS no chest pain, no palpitation. Respiratory dry cough, no sputum production no respiratory distress. Gastrointestinal no nausea, no vomiting, abdominal pain with coughing Constitutional Constitutional: Reports weakness Neurologic Neurologic: Reports weakness Physical Exam Vital Signs: Vital Signs: Last Vital Signs Temp 98.4 F 09/12/20 08:00 Pulse 65 09/12/20 08:32 Resp 17 09/12/20 08:00 BP 128/68 09/12/20 08:32 Pulse Ox 94 09/12/20 08:00 Body Mass Index 37.2 Const: General: cooperative and no acute distress Orientation/consciou sness: patient oriented x3 Eyes: General: appearance normal, both eyes and all related structures Resp: Effort & Inspection: normal respiratory effort and able to speak in complete sentences Cardio: Rate: regular rate Rhythm: regular rhythm GI: Palpation (GI): Soft to palpation Auscultation: normal bowel sounds Skin: General skin exam: no rashes or lesions noted Neuro: General: patient oriented x3 Cognition (Neuro): normal cognition Extrem: Other: Status post toe amputation dressing in place General: Yes normal to inspection Objective Data Current Medications Generic Name Dose Route Start Last Admin Trade Name Daronq PRN Reason Stop Dose Admin Acetaminophen 650 mg 09/05/20 06:55 09/11/20 15:14 Acetaminophen 325 Mg Tablet PO 650 mg Q6H PRN Administration Pain, Mild (Pain Scale 1-3) Artificial Tears 1 drop 09/07/20 18:26 09/07/20 21:47 Artificial Tears 15 Ml Drops EYE-BOTH 1 drop Q6H PRN Administration Dry Eyes Aspirin 81 mg 09/05/20 09:00 09/12/20 08:33 Aspirin Enteric Coated 81 Mg Tablet.Dr PO 81 mg DAILY TJ Administration Atorvastatin Calcium 40 mg 09/04/20 21:00 09/11/20 21:25 Atorvastatin Calcium 40 Mg Tablet PO 40 mg BEDTIME TJ Administration Benzonatate 200 mg 09/05/20 21:00 09/12/20 08:33 Benzonatate 100 Mg Capsule PO 200 mg TID TJ Administration Bisacodyl 5 mg 09/04/20 21:00 09/12/20 08:33 Bisacodyl 5 Mg Tablet. PO 5 mg BID TJ Administration Clopidogrel Bisulfate 75 mg 09/05/20 15:50 09/12/20 08:33 Clopidogrel Bisulfate 75 Mg Tablet PO 75 mg DAILY TJ Administration Docusate Sodium 100 mg 09/05/20 06:55 09/06/20 21:05 Docusate Sodium 100 Mg Capsule PO 100 mg DAILY PRN Administration Constipation Fluoxetine HCl 10 mg 09/05/20 09:00 09/12/20 08:32 Fluoxetine Hcl 10 Mg Capsule PO 10 mg DAILY TJ Administration Gabapentin 600 mg 09/04/20 21:00 09/11/20 21:25 Gabapentin 600 Mg Tablet PO 600 mg BEDTIME [facility] Administration Guaifenesin/Dextromethorphan 10 ml 09/05/20 17:19 09/09/20 09:41 Guaifenesin Dm 100/10/5 Ml 5 Ml Syrup PO 10 ml Q4H PRN Administration cough Vancomycin HCl 750 mg/ 275 mls @ 183.333 mls/hr 09/08/20 13:00 09/12/20 04:41 Vancomycin HCl 500 mg/ Sodium IV Infused Chloride Q12H [facility] Infusion Lactated Ringer's 1,000 mls @ 20 mls/hr 09/10/20 12:45 09/11/20 13:25 Lr IVCONT Not Given .Q24H [facility] Insulin Glargine 60 unit 09/10/20 09:00 09/12/20 08:31 Insulin Glargine,Hum.Rec.Anlog 100 Unit/Ml 10 Ml Vial SUBCUT 60 unit DAILY [facility] Administration Insulin Glargine 50 unit 09/09/20 21:00 09/11/20 21:38 Insulin Glargine,Hum.Rec.Anlog 100 Unit/Ml 10 Ml Vial SUBCUT 50 unit BEDTIME [facility] Administration Insulin Human Lispro 0 unit 09/05/20 07:30 09/12/20 07:34 Insulin Lispro 100 Unit/Ml 3 Ml Vial SUBCUT Not Given QIDACHS [facility] Protocol Lisinopril 5 mg 09/05/20 09:00 09/12/20 08:32 Lisinopril 5 Mg Tablet PO 5 mg DAILY [facility] Administration Protocol Ondansetron HCl 4 mg 09/05/20 06:55 Ondansetron Hcl 4 Mg/2 Ml Vial IVPUSH Q8H PRN Nausea and Vomiting Pharmacy Consult 1 each 09/04/20 14:11 Consult Rx Perform Med Rec MISCELLANE ONCE PRN Consult order Polyethylene Glycol 17 gm 09/07/20 18:30 09/12/20 08:28 Polyethylene Glycol 3350 17 Gm Powd.Pack PO 17 gm DAILY TJ Administration Sodium Chloride 3 ml 09/05/20 08:00 09/12/20 08:33 0.9 % Sodium Chloride Flush 3 Ml Syringe IVFLUSH 3 ml QSHIFT TJ Administration Sodium Chloride 1 spray 09/09/20 20:21 09/09/20 21:18 Sodium Chloride 0.65 % Nasal 44 Ml Sprbtl NOSTRIL-B 1 spray Q1H PRN Administration Dry Nasal Passages Tramadol HCl 50 mg 09/12/20 11:39 Tramadol Hcl 50 Mg Tablet PO Q6H PRN Pain, Moderate (Pain Scale 4-6 Vitamin D 25 mcg 09/05/20 09:00 09/12/20 08:32 Cholecalciferol (Vitamin D3) 25 Mcg Tablet PO 25 mcg DAILY TJ Administration Labs CBC & Chem 7: 09/13/20 06:39 09/13/20 06:39 Microbiology Microbiology Results: Microbiology 09/10/20 19:15 Blood - Venous Blood Culture - Preliminary No growth after 24 hours. 09/10/20 19:15 Blood - Venous Blood Culture - Preliminary No growth after 24 hours. 09/04/20 15:00 Blood - Venous Blood Culture - Final Methicillin Res Staph Aureus 09/04/20 14:45 Blood - Venous Blood Culture - Final Methicillin Res Staph Aureus Assessment and Plan (1) Cellulitis: Status: Acute (2) Necrosis of toe: Status: Acute (3) Elevated erythrocyte sedimentation rate: Status: Acute Assessment and Plan: 60-year-old male with past medical history of diabetes as well as peripheral neuropathy who presents to the hospital with complaints of right toe wound, drainage Sepsis due to diabetic foot ulcer MRSA bacteremia from foot infection Status post angiogram and angioplasty by vascular surgery Status post right toe amputation on continue IV vancomycin day 7 monitor Vanco trough Zosyn stopped as blood culture growing MRSA Follow-up repeat blood cultures Will need PICC line and 6 weeks of IV antibiotic on discharge MRI foot done shows no convincing evidence of osteomyelitis Vascular surgery following postop Hypomagnesemia replaced and resolved monitor electrolytes Diiabetes mellitus uncontrolled -continue Lantus b.i.d., continue sliding scale insulin and diabetic diet follow blood sugar closely and adjust medication. Metformin on hold Continue Neurontin Thrombocytopenia Platelet dropped today Will hold heparin Monitor platelet count Hypertension - BP stable continue lisinopril Cough - no sputum production, no increased dyspnea, COVID-19 negative, chest x-ray negative for any evidence of pneumonia, continue inhalers constipation Continue MiraLax continue lactulose Hyperlipidemia statin DVT prophylaxis: Venodyne will stop heparin for thrombocytopenia
[2020-09-12] MEDS: traMADoL HCL 50 MG TABLET PO ×2 (12:23→20:26)
[2020-09-12] MEDS: Insulin Lispro 100 UNIT/ML 3 ML VIAL SUBCUT ×3 (12:23→20:23)
--- NOTE | 2020-09-12 14:57 | HO.VASCPN ---
Subjective Subjective Date of Service: 09/12/20 Patient reports: no new complaints and feels better Interval history: Postop day 2 status post right great toe amp. No interval issues. States pain feel significantly better. He has positive blood cultures. Now for dressing change Physical Exam Vital Signs: Vital Signs: Last Vital Signs Temp 97 F 09/12/20 12:00 Pulse 74 09/12/20 12:00 Resp 19 09/12/20 12:00 BP 142/77 H 09/12/20 12:00 Pulse Ox 97 09/12/20 12:00 Body Mass Index 37.2 Const: General: cooperative, healthy appearing and no acute distress Orientation/consciousness: oriented to person, oriented to place and oriented to time HENMT: Head: Yes normal to inspection Neck: Carotids: no bruits Chest: Chest palpation & inspection: normal inspection of the chest Resp: Effort & Inspection: normal respiratory effort and able to speak in complete sentences Auscultation: clear to auscultation bilaterally Cardio: Rate: regular rate Heart sounds: S1 normal heart sound present and S2 normal heart sound present GI: Inspection: Yes normal to inspection Skin: Other: Amp site central portion opened up. Poorly healing General skin exam: no rashes or lesions noted Wounds: wounds noted Neuro: General: oriented to person, oriented to place, oriented to time and CN's II-XI intact bilaterally Extrem: General: Yes normal to inspection, Yes full ROM and Yes no clubbing, cyanosis or edema Psych: Appearance: grossly normal and well kempt Speech and movement: Normal speech and movement present Affect: normal affect Progress Note: A&P Assessment and plan (1) Diabetic foot ulcer: Status: Acute Assessment and Plan: Poorly healing hand amp site. Will continue antibiotics for now. May need further resection. Will reassess over the next few days. Continue IV antibiotics for now. We will follow with you. Case discussed with medicine team The patient had an opportunity to ask questions regarding the treatment plan. All questions were answered. Imaging studies, laboratory studies and physical exam results were discussed and reviewed in detail. No major barriers to understanding were identified. The patient expressed understanding and agreement with the above treatment plan. The patient is aware they should contact our office by phone for worsening of the current condition or the appearance of new symptoms. Thank you for allowing me to participate in the vascular care of this patient. If you have any questions or concerns regarding the treatment for the above condition please do not hesitate to contact me. The office telephone contact is [phone]. This note is constructed using voice recognition software. While every effort has been made to ensure accuracy, health and wellness instructor errors may have been included. Thank you for allowing me to participate in the care of your patient. Yours sincerely, Cameron Figueroa MD, FACS, R.P.V.I. Fall Risk Details Current Medications: Current Medications Generic Name Dose Route Start Last Admin Trade Name Freq PRN Reason Stop Dose Admin Acetaminophen 650 mg 09/05/20 06:55 09/11/20 15:14 Acetaminophen 325 Mg Tablet PO 650 mg Q6H PRN Administration Pain, Mild (Pain Scale 1-3) Artificial Tears 1 drop 09/07/20 18:26 09/07/20 21:47 Artificial Tears 15 Ml Drops EYE-BOTH 1 drop Q6H PRN Administration Dry Eyes Aspirin 81 mg 09/05/20 09:00 09/12/20 08:33 Aspirin Enteric Coated 81 Mg Tablet. PO 81 mg DAILY TJ Administration Atorvastatin Calcium 40 mg 09/04/20 21:00 09/11/20 21:25 Atorvastatin Calcium 40 Mg Tablet PO 40 mg BEDTIME TJ Administration Benzonatate 200 mg 09/05/20 21:00 09/12/20 14:51 Benzonatate 100 Mg Capsule PO 200 mg TID TJ Administration Bisacodyl 5 mg 09/04/20 21:00 09/12/20 08:33 Bisacodyl 5 Mg Tablet. PO 5 mg BID TJ Administration Clopidogrel Bisulfate 75 mg 09/05/20 15:50 09/12/20 08:33 Clopidogrel Bisulfate 75 Mg Tablet PO 75 mg DAILY TJ Administration Docusate Sodium 100 mg 09/05/20 06:55 09/06/20 21:05 Docusate Sodium 100 Mg Capsule PO 100 mg DAILY PRN Administration Constipation Fluoxetine HCl 10 mg 09/05/20 09:00 09/12/20 08:32 Fluoxetine Hcl 10 Mg Capsule PO 10 mg DAILY TJ Administration Gabapentin 600 mg 09/04/20 21:00 09/11/20 21:25 Gabapentin 600 Mg Tablet PO 600 mg BEDTIME TJ Administration Guaifenesin/Dextromethorphan 10 ml 09/05/20 17:19 09/09/20 09:41 Guaifenesin Dm 100/10/5 Ml 5 Ml Syrup PO 10 ml Q4H PRN Administration cough Vancomycin HCl 750 mg/ 275 mls @ 183.333 mls/hr 09/08/20 13:00 09/12/20 14:02 Vancomycin HCl 500 mg/ Sodium IV Infused Chloride Q12H TJ Infusion Insulin Glargine 60 unit 09/10/20 09:00 09/12/20 08:31 Insulin Glargine,Hum.Rec.Anlog 100 Unit/Ml 10 Ml Vial SUBCUT 60 unit DAILY TJ Administration Insulin Glargine 50 unit 09/09/20 21:00 09/11/20 21:38 Insulin Glargine,Hum.Rec.Anlog 100 Unit/Ml 10 Ml Vial SUBCUT 50 unit BEDTIME TJ Administration Insulin Human Lispro 0 unit 09/05/20 07:30 09/12/20 12:23 Insulin Lispro 100 Unit/Ml 3 Ml Vial SUBCUT 4 unit QIDACHS [facility] Administration Protocol Lisinopril 5 mg 09/05/20 09:00 09/12/20 08:32 Lisinopril 5 Mg Tablet PO 5 mg DAILY TJ Administration Protocol Ondansetron HCl 4 mg 09/05/20 06:55 Ondansetron Hcl 4 Mg/2 Ml Vial IVPUSH Q8H PRN Nausea and Vomiting Pharmacy Consult 1 each 09/04/20 14:11 Consult Rx Perform Med Rec MISCELLANE ONCE PRN Consult order Polyethylene Glycol 17 gm 09/07/20 18:30 09/12/20 08:28 Polyethylene Glycol 3350 17 Gm Powd.Pack PO 17 gm DAILY TJ Administration Sodium Chloride 3 ml 09/05/20 08:00 09/12/20 08:33 0.9 % Sodium Chloride Flush 3 Ml Syringe IVFLUSH 3 ml QSHIFT TJ Administration Sodium Chloride 1 spray 09/09/20 20:21 09/09/20 21:18 Sodium Chloride 0.65 % Nasal 44 Ml Sprbtl NOSTRIL-B 1 spray Q1H PRN Administration Dry Nasal Passages Tramadol HCl 50 mg 09/12/20 11:39 09/12/20 12:23 Tramadol Hcl 50 Mg Tablet PO 50 mg Q6H PRN Administration Pain, Moderate (Pain Scale 4-6 Vitamin D 25 mcg 09/05/20 09:00 09/12/20 08:32 Cholecalciferol (Vitamin D3) 25 Mcg Tablet PO 25 mcg DAILY TJ Administration Time Spent With Patient Time: Total time spent is greater than 50% in coordination of care (as documented) at patient's floor/unit and/or counseling patient: Time with patient: 15 - 24 minutes
[2020-09-12 16:28] LABS: Glucose, Whole Blood 272 mg/dL (60-115)
[2020-09-12] MEDS: Insulin Glargine,Hum.rec.anlog 100 UNIT/ML 10 ML VIAL 50 UNIT SUBCUT (20:23)
[2020-09-12] MEDS: Gabapentin 600 MG TABLET PO (20:23)
[2020-09-12] MEDS: Atorvastatin Calcium 40 MG TABLET PO (20:23)
[2020-09-12 20:24] LABS: Glucose, Whole Blood 257 mg/dL (60-115)
[2020-09-13 01:00] LABS: Vancomycin Trough 20.3 mcg/mL (10.0-20.0)
--- NOTE | 2020-09-13 01:38 | MHC.PIE ---
p; vanco trough 20.3 i; dr mcknight notified e; will cont to monitor
[2020-09-13 07:05] LABS: MANUAL DIFF FLAG NO
[2020-09-13 07:09] VITALS: BP 131/76; PULSE 74; RESP 17; TEMP 36.3; O2SAT 93
[2020-09-13 07:18] LABS: Basophils Absolute Auto 0.1 X10*3/uL (0.0-0.2); Basophils Percent Auto 0.4 % (0-2); Eosinophils Absolute Auto 0.2 X10*3/uL (0.0-0.4); Hematocrit 33.5 % (42-52); Hemoglobin 11.4 g/dl (14.0-18.0); Imm Gran Abs Auto 0.55 X10*3/uL (0.00-0.03); Imm Gran Pct Auto 4.7 % (0.0-0.4); Lymphocytes Absolute Auto 2.5 X10*3/uL (1.2-4.9); Lymphocytes Percent Auto 21.2 % (20-40); Mean Corpuscular Hemoglobin 32.4 pg (27.0-33.0); Mean Corpuscular Volume 95.2 fL (80-98); Monocytes Absolute Auto 0.9 X10*3/uL (0.1-1.2); Monocytes Percent Auto 7.9 % (2-11); Neutrophils Absolute Auto 7.4 X10*3/uL (2.0-8.3); Neutrophils Percent Auto 63.8 % (45-73); Red Blood Count 3.52 X10*6/uL (4.60-5.80); Red Cell Distribution Width 11.3 % (11.0-16.0); White Blood Count 11.7 X10*3/uL (4.8-10.8)
[2020-09-13 07:19] LABS: Glucose, Whole Blood 101 mg/dL (60-115)
[2020-09-13 07:22] LABS: Platelet Count 59 X10*3/uL (160-400)
[2020-09-13 07:41] LABS: Anion Gap 12 (12-20); Blood Urea Nitrogen 12 mg/dL (9-16); Calcium 8.3 mg/dL (8.4-10.2); Carbon Dioxide 27 mmol/L (22-29); Chloride 100 mmol/L (96-108); Creatinine Clr Calc Pharmacy 128.5; Estimated Glomerular Filt Rate > 60; Glucose Random 84 mg/dL (60-115); Sodium 135 mmol/L (135-145)
[2020-09-13] MEDS: vancomycin HCL 1,000 MG in 0.9 % Sodium Chloride 250 ML 270 MG IV (10:01)
[2020-09-13] MEDS: polyethylene glycoL 3350 17 GM POWD.PACK PO (10:03)
[2020-09-13] MEDS: Insulin Glargine,Hum.rec.anlog 100 UNIT/ML 10 ML VIAL 60 UNIT SUBCUT (10:03)
[2020-09-13] MEDS: Clopidogrel Bisulfate 75 MG TABLET PO (10:04)
[2020-09-13] MEDS: 0.9 % Sodium Chloride Flush 3 ML SYRINGE IVFLUSH ×2 (10:04→22:17)
[2020-09-13] MEDS: Cholecalciferol (Vitamin D3) 25 MCG TABLET PO (10:04)
[2020-09-13] MEDS: Docusate Sodium 100 MG CAPSULE PO (10:04)
[2020-09-13] MEDS: bisacodyL 5 MG TABLET.DR PO ×2 (10:04→22:16)
[2020-09-13] MEDS: Benzonatate 100 MG CAPSULE 200 MG PO ×3 (10:04→22:15)
[2020-09-13] MEDS: Aspirin Enteric Coated 81 MG TABLET.DR PO (10:04)
[2020-09-13] MEDS: FLUoxetine HCl 10 MG CAPSULE PO (10:04)
--- NOTE | 2020-09-13 10:35 | P.PNVS_ITS ---
Subjective Subjective Date of Service: 09/13/20 Patient reports: no new complaints and feels better Interval history: Patient is status post great toe amp. In general feels much better. Denies any significant pain. No events overnight. Now for routine dressing change. Physical Exam Vital Signs: Vital Signs: Last Vital Signs Temp 97.4 F 09/13/20 07:09 Pulse 74 09/13/20 07:09 Resp 17 09/13/20 07:09 BP 131/76 09/13/20 07:09 Pulse Ox 93 09/13/20 07:09 Body Mass Index 37.2 Const: General: cooperative, healthy appearing and no acute distress Orientation/consciousness: oriented to person, oriented to place and oriented to time HENMT: Head: Yes normal to inspection Neck: Carotids: no bruits Chest: Chest palpation & inspection: normal inspection of the chest Resp: Effort & Inspection: normal respiratory effort and able to speak in complete sentences Auscultation: clear to auscultation bilaterally Cardio: Rate: regular rate Heart sounds: S1 normal heart sound present and S2 normal heart sound present GI: Inspection: Yes normal to inspection Skin: General skin exam: no rashes or lesions noted Wounds: amputation site (Central portion of great toe amputation open.) Neuro: General: oriented to person, oriented to place, oriented to time and CN's II-XI intact bilaterally Extrem: General: Yes normal to inspection, Yes full ROM and Yes no clubbing, cyanosis or edema Psych: Appearance: grossly normal and well kempt Speech and movement: Normal speech and movement present Affect: normal affect Progress Note: A&P Assessment and plan (1) Diabetic foot ulcer: Status: Acute Assessment and Plan: Patient is status post right great toe amp. The central portion of that incision is open. There appears to be reasonable granulation tissue. In addition infection appears to be much better controlled. Cellulitis has resolved. Will continue with local wound care throughout the weekend. Will reassess wound on Wednesday. Discussed with patient and he is in agreement. Thank you for allowing us to assist in his care. Fall Risk Details Current Medications: Current Medications Generic Name Dose Route Start Last Admin Trade Name Freq PRN Reason Stop Dose Admin Acetaminophen 650 mg 09/05/20 06:55 09/11/20 15:14 Acetaminophen 325 Mg Tablet PO 650 mg Q6H PRN Administration Pain, Mild (Pain Scale 1-3) Artificial Tears 1 drop 09/07/20 18:26 09/07/20 21:47 Artificial Tears 15 Ml Drops EYE-BOTH 1 drop Q6H PRN Administration Dry Eyes Aspirin 81 mg 09/05/20 09:00 09/13/20 10:04 Aspirin Enteric Coated 81 Mg Tablet. PO 81 mg DAILY TJ Administration Atorvastatin Calcium 40 mg 09/04/20 21:00 09/12/20 20:23 Atorvastatin Calcium 40 Mg Tablet PO 40 mg BEDTIME TJ Administration Benzonatate 200 mg 09/05/20 21:00 09/13/20 10:04 Benzonatate 100 Mg Capsule PO 200 mg TID TJ Administration Bisacodyl 5 mg 09/04/20 21:00 09/13/20 10:04 Bisacodyl 5 Mg Tablet. PO 5 mg BID TJ Administration Clopidogrel Bisulfate 75 mg 09/05/20 15:50 09/13/20 10:04 Clopidogrel Bisulfate 75 Mg Tablet PO 75 mg DAILY TJ Administration Docusate Sodium 100 mg 09/05/20 06:55 09/13/20 10:04 Docusate Sodium 100 Mg Capsule PO 100 mg DAILY PRN Administration Constipation Fluoxetine HCl 10 mg 09/05/20 09:00 09/13/20 10:04 Fluoxetine Hcl 10 Mg Capsule PO 10 mg DAILY TJ Administration Gabapentin 600 mg 09/04/20 21:00 09/12/20 20:23 Gabapentin 600 Mg Tablet PO 600 mg BEDTIME TJ Administration Guaifenesin/Dextromethorphan 10 ml 09/05/20 17:19 09/09/20 09:41 Guaifenesin Dm 100/10/5 Ml 5 Ml Syrup PO 10 ml Q4H PRN Administration cough Vancomycin HCl 1,000 mg/ 270 mls @ 270 mls/hr 09/13/20 08:30 09/13/20 10:01 Sodium Chloride IV 270 mls/hr Q12H TJ Administration Insulin Glargine 60 unit 09/10/20 09:00 09/13/20 10:03 Insulin Glargine,Hum.Rec.Anlog 100 Unit/Ml 10 Ml Vial SUBCUT 60 unit DAILY TJ Administration Insulin Glargine 50 unit 09/09/20 21:00 09/12/20 20:23 Insulin Glargine,Hum.Rec.Anlog 100 Unit/Ml 10 Ml Vial SUBCUT 50 unit BEDTIME TJ Administration Insulin Human Lispro 0 unit 09/05/20 07:30 09/13/20 10:03 Insulin Lispro 100 Unit/Ml 3 Ml Vial SUBCUT Not Given QIDACHS [facility] Protocol Lisinopril 5 mg 09/05/20 09:00 09/13/20 10:04 Lisinopril 5 Mg Tablet PO 5 mg DAILY TJ Administration Protocol Ondansetron HCl 4 mg 09/05/20 06:55 Ondansetron Hcl 4 Mg/2 Ml Vial IVPUSH Q8H PRN Nausea and Vomiting Pharmacy Consult 1 each 09/04/20 14:11 Consult Rx Perform Med Rec MISCELLANE ONCE PRN Consult order Polyethylene Glycol 17 gm 09/07/20 18:30 09/13/20 10:03 Polyethylene Glycol 3350 17 Gm Powd.Pack PO 17 gm DAILY TJ Administration Sodium Chloride 3 ml 09/05/20 08:00 09/13/20 10:04 0.9 % Sodium Chloride Flush 3 Ml Syringe IVFLUSH 3 ml QSHIFT TJ Administration Sodium Chloride 1 spray 09/09/20 20:21 09/09/20 21:18 Sodium Chloride 0.65 % Nasal 44 Ml Sprbtl NOSTRIL-B 1 spray Q1H PRN Administration Dry Nasal Passages Tramadol HCl 50 mg 09/12/20 11:39 09/12/20 20:26 Tramadol Hcl 50 Mg Tablet PO 50 mg Q6H PRN Administration Pain, Moderate (Pain Scale 4-6 Vitamin D 25 mcg 09/05/20 09:00 09/13/20 10:04 Cholecalciferol (Vitamin D3) 25 Mcg Tablet PO 25 mcg DAILY TJ Administration Time Spent With Patient Time: Total time spent is greater than 50% in coordination of care (as documented) at patient's floor/unit and/or counseling patient: Time with patient: 15 - 24 minutes
[2020-09-13 11:40] LABS: Glucose, Whole Blood 224 mg/dL (60-115)
[2020-09-13 12:00] VITALS: BP 127/65; PULSE 66; RESP 19; TEMP 36.2; O2SAT 95
[2020-09-13] MEDS: Insulin Lispro 100 UNIT/ML 3 ML VIAL SUBCUT ×3 (12:14→22:19)
--- NOTE | 2020-09-13 12:16 | HO.PM.IMPN ---
Subjective Subjective Date of Service: 09/13/20 Interval History: Patient admitted for right big toe infection, Patient status post toe amputation Patient reported weakness Review of Systems General no headache, no dizziness, no fever chills. CVS no chest pain, no palpitation. Respiratory dry cough, no sputum production no respiratory distress. Gastrointestinal no nausea, no vomiting, abdominal pain with coughing Constitutional Constitutional: Reports weakness Neurologic Neurologic: Reports weakness Physical Exam Vital Signs: Vital Signs: Last Vital Signs Temp 97.4 F 09/13/20 07:09 Pulse 74 09/13/20 07:09 Resp 17 09/13/20 07:09 BP 131/76 09/13/20 07:09 Pulse Ox 93 09/13/20 07:09 Body Mass Index 37.2 Const: General: cooperative and no acute distress Orientation/consciousness: patient oriented x3 Eyes: General: appearance normal, both eyes and all related structures Resp: Effort & Inspection: normal respiratory effort and able to speak in complete sentences Cardio: Rate: regular rate Rhythm: regular rhythm GI: Palpation (GI): Soft to palpation Auscultation: normal bowel sounds Skin: General skin exam: no rashes or lesions noted Neuro: General: patient oriented x3 Cognition (Neuro): normal cognition Extrem: Other: Status post toe amputation dressing in place General: Yes normal to inspection Objective Data Current Medications Generic Name Dose Route Start Last Admin Trade Name Freq PRN Reason Stop Dose Admin Acetaminophen 650 mg 09/05/20 06:55 09/11/20 15:14 Acetaminophen 325 Mg Tablet PO 650 mg Q6H PRN Administration Pain, Mild (Pain Scale 1-3) Artificial Tears 1 drop 09/07/20 18:26 09/07/20 21:47 Artificial Tears 15 Ml Drops EYE-BOTH 1 drop Q6H PRN Administration Dry Eyes Atorvastatin Calcium 40 mg 09/04/20 21:00 09/12/20 20:23 Atorvastatin Calcium 40 Mg Tablet PO 40 mg BEDTIME TJ Administration Benzonatate 200 mg 09/05/20 21:00 09/13/20 10:04 Benzonatate 100 Mg Capsule PO 200 mg TID TJ Administration Bisacodyl 5 mg 09/04/20 21:00 09/13/20 10:04 Bisacodyl 5 Mg Tablet.Dr PO 5 mg BID TJ Administration Docusate Sodium 100 mg 09/05/20 06:55 09/13/20 10:04 Docusate Sodium 100 Mg Capsule PO 100 mg DAILY PRN Administration Constipation Fluoxetine HCl 10 mg 09/05/20 09:00 09/13/20 10:04 Fluoxetine Hcl 10 Mg Capsule PO 10 mg DAILY TJ Administration Gabapentin 600 mg 09/04/20 21:00 09/12/20 20:23 Gabapentin 600 Mg Tablet PO 600 mg BEDTIME TJ Administration Guaifenesin/Dextromethorphan 10 ml 09/05/20 17:19 09/09/20 09:41 Guaifenesin Dm 100/10/5 Ml 5 Ml Syrup PO 10 ml Q4H PRN Administration cough Vancomycin HCl 1,000 mg/ 270 mls @ 270 mls/hr 09/13/20 08:30 09/13/20 11:29 Sodium Chloride IV Infused Q12H TJ Infusion Insulin Glargine 60 unit 09/10/20 09:00 09/13/20 10:03 Insulin Glargine,Hum.Rec.Anlog 100 Unit/Ml 10 Ml Vial SUBCUT 60 unit DAILY TJ Administration Insulin Glargine 50 unit 09/09/20 21:00 09/12/20 20:23 Insulin Glargine,Hum.Rec.Anlog 100 Unit/Ml 10 Ml Vial SUBCUT 50 unit BEDTIME TJ Administration Insulin Human Lispro 0 unit 09/05/20 07:30 09/13/20 12:14 Insulin Lispro 100 Unit/Ml 3 Ml Vial SUBCUT 4 unit QIDACHS TJ Administration Protocol Lisinopril 5 mg 09/05/20 09:00 09/13/20 10:04 Lisinopril 5 Mg Tablet PO 5 mg DAILY TJ Administration Protocol Ondansetron HCl 4 mg 09/05/20 06:55 Ondansetron Hcl 4 Mg/2 Ml Vial IVPUSH Q8H PRN Nausea and Vomiting Pharmacy Consult 1 each 09/04/20 14:11 Consult Rx Perform Med Rec MISCELLANE ONCE PRN Consult order Polyethylene Glycol 17 gm 09/07/20 18:30 09/13/20 10:03 Polyethylene Glycol 3350 17 Gm Powd.Pack PO 17 gm DAILY TJ Administration Sodium Chloride 3 ml 09/05/20 08:00 09/13/20 10:04 0.9 % Sodium Chloride Flush 3 Ml Syringe IVFLUSH 3 ml QSHIFT TJ Administration Sodium Chloride 1 spray 09/09/20 20:21 09/09/20 21:18 Sodium Chloride 0.65 % Nasal 44 Ml Sprbtl NOSTRIL-B 1 spray Q1H PRN Administration Dry Nasal Passages Tramadol HCl 50 mg 09/12/20 11:39 09/12/20 20:26 Tramadol Hcl 50 Mg Tablet PO 50 mg Q6H PRN Administration Pain, Moderate (Pain Scale 4-6 Vitamin D 25 mcg 09/05/20 09:00 09/13/20 10:04 Cholecalciferol (Vitamin D3) 25 Mcg Tablet PO 25 mcg DAILY TJ Administration Labs CBC & Chem 7: 09/13/20 06:39 09/13/20 06:39 Microbiology Microbiology Results: Microbiology 09/10/20 19:15 Blood - Venous Blood Culture - Preliminary No growth after 48 hours. 09/10/20 19:15 Blood - Venous Blood Culture - Preliminary No growth after 48 hours. 09/04/20 15:00 Blood - Venous Blood Culture - Final Methicillin Res Staph Aureus 09/04/20 14:45 Blood - Venous Blood Culture - Final Methicillin Res Staph Aureus Assessment and Plan (1) Cellulitis: Status: Acute (2) Necrosis of toe: Status: Acute (3) Elevated erythrocyte sedimentation rate: Status: Acute Assessment and Plan: 60-year-old male with past medical history of diabetes as well as peripheral neuropathy who presents to the hospital with complaints of right toe wound, drainage Sepsis due to diabetic foot ulcer MRSA bacteremia from foot infection Status post angiogram and angioplasty by vascular surgery Status post right toe amputation on continue IV vancomycin day 8 monitor Vanco trough Zosyn stopped as blood culture growing MRSA repeat blood culture negative Will need PICC line and 6 weeks of IV antibiotic on discharge MRI foot done shows no convincing evidence of osteomyelitis Vascular surgery following recommended continue IV antibiotic and will monitor over the weekend, vascular surgery will reassess wound on Wednesday for further debridement Thrombocytopenia worsening Platelet chronic dropped further to 59 was normal 2 days before Will stop aspirin and Plavix Heparin was stopped yesterday Hematology consult requested Monitor CBC Hypomagnesemia replaced and resolved monitor electrolytes Diiabetes mellitus uncontrolled -continue Lantus b.i.d., continue sliding scale insulin and diabetic diet follow blood sugar closely and adjust medication. Metformin on hold Continue Neurontin Hypertension - BP stable continue lisinopril Cough - no sputum production, no increased dyspnea, COVID-19 negative, chest x-ray negative for any evidence of pneumonia, continue inhalers constipation Continue MiraLax continue lactulose Hyperlipidemia statin DVT prophylaxis: Venodyne heparin stopped for thrombocytopenia
--- NOTE | 2020-09-13 12:47 | P.CNHO_ITS ---
Subjective - Subjective Patient: new to practice Consult date: 09/13/20 Requesting Physician: Lulu. Primary Care Provider: Virginie Liao MD Medical Summary: DIAGNOSIS: THROMBOCYTOPENIA. HPI - Consult Narrative Reason for consult: Thrombocytoepia. Narrative: Ramy Benson is a pleasant 60 year old gentleman, with past medical history of diabetes, hypertension, hyperlipidemia, peripheral neuropathy, COPD. He presented to the hospital with complaints of right big toe swelling, drainage, as well as changes in skin color. Patient reported that he started noticing changes in the skin color for several days. He also started having malodorous drainage that was green pus in color therefore he was concerned and came to the hospital. He reported that he usually follows up with the wound clinic at the [facility] due to this toe and was there about a week prior to admission. He regularly gets I&D of the toe. When he was there about a week ago, there with no complications or issues. He has significant neuropathy and does not feel any pain in his foot. He noticed skin changes in his toe, which had become blue and also had dark necrosis at the base of the toe. He also complained of a cough that was non productive. He had some chills with no fever. He denied shortness of breath, rhinorrhea. No headache, no change in vision. He has on and off diarrhea, no urinary symptoms. He has had low oral intake, and low appetite. Denies any extremity swelling otherwise. On arrival to the ED: vitals were significant for temp of 98.6?, pulse rate of 91, respiratory rate of 18, blood pressure 143/74, 97% O2 on room air. Patient became rather tachycardic with a heart rate of 107. Labs: significant for WBC count of 12.1, ESR of 90, PT of 15.9, INR of 1.3, sodium of 131, BUN of 27, creatinine of 1.24 (baseline), glucose of 23, magnesium of 1.5, CRP of 18.4, UA negative. COVID-19 negative. Foot x-ray demonstrates soft tissue swelling without definite erosive changes or gas within the soft tissue. Chest x-ray shows unremarkable exam, Review of Systems - Constitutional Reports system reviewed and no additional complaints, except as documented, Reports fatigue, Reports lack of energy, Reports malaise, Reports weakness, Reports weight loss - Eyes Reports system reviewed and no additional complaints, except as documented, Denies bulging eyes - ENT Reports system reviewed and no additional complaints, except as documented - Cardiovascular Reports system reviewed and no additional complaints, except as documented, Denies chest pain at rest - Respiratory Reports no additional respiratory complaints, Denies chest congestion - Gastrointestinal Reports system reviewed and no additional complaints, except as documented, Denies abdominal pain, Denies change in bowel habits - Genitourinary Genitourinary: Reports no additional male genitourinary complaints, Denies blood in urine - Musculoskeletal Reports system reviewed and no additional complaints, except as documented, Denies back pain - Integumentary/Breasts Skin/Breast: Reports no additional skin complaints, Denies bleeding lesions - Neurologic Reports system reviewed and no additional complaints, except as documented, Reports weakness - Psychiatric Reports system reviewed and no additional complaints, except as documented, Denies anxiety - Endocrine Reports no additional endocrine complaints, Denies excessive sweating - Hematologic/Lymphatic Reports system reviewed and no additional complaints, except as documented, Reports easy bruising - Allergic/Immunologic Reports system reviewed and no additional complaints, except as documented, Denies GI upset with certain foods PMFSH Medical History: Medical History (Last Reviewed 09/17/20 @ 12:21 by Tha Baze) Back pain Hyperlipidemia Hypertension IDDM (insulin dependent diabetes mellitus) Neck pain Peripheral neuropathy Psychiatric diagnosis Sleep apnea Functional capacity: uses cane/walker Patient : No Family history: reviewed and not pertinent Surgical History: Surgical History (Last Reviewed 09/17/20 @ 12:21 by Tha Baez) H/O colonoscopy Hx of angioplasty Hx of appendectomy Hx of foot surgery Hx of tonsillectomy Hx of umbilical hernia repair Social History: Social History (Last Reviewed 09/17/20 @ 12:21 by Tha Baez) Living Situation History: Household Members: None Housing: Apartment Do you presently have visiting nurse or other home services: Yes Do you presently have visiting nurse or other home services 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 If so, by whom?: No Do you feel safe in your current relationship?: No Current Relationship Is there a partner from a previous relationship who is making you feel unsafe now?: No Are you made to feel afraid or neglected: No Advance Directives: Are you DNR?: No Advance Directives: No Advance Directives Information Provided: Yes Homicidal Assessment: Do you have thoughts of harming others: None Do you have a plan to hurt others: No Plan Nutrition Assessment: Recently lost weight without trying: Yes How much weight loss: Unsure Eating poorly because of decreased appetite: Yes Nutrition screen score: 5 Nutrition Risks: No Nutritional Risk Patient : No Poor oral hygiene: No Occupation Assessmet: service: Yes Current occupational status: unemployed Smoking status: Former smoker Home Medications and Allergies Current Medications: Current Medications Generic Name Dose Route Start Last Admin Trade Name Freq PRN Reason Stop Dose Admin Acetaminophen 650 mg 09/05/20 06:55 09/11/20 15:14 Acetaminophen 325 Mg Tablet PO 650 mg Q6H PRN Administration Pain, Mild (Pain Scale 1-3) Artificial Tears 1 drop 09/07/20 18:26 09/07/20 21:47 Artificial Tears 15 Ml Drops EYE-BOTH 1 drop Q6H PRN Administration Dry Eyes Atorvastatin Calcium 40 mg 09/04/20 21:00 09/12/20 20:23 Atorvastatin Calcium 40 Mg Tablet PO 40 mg BEDTIME TJ Administration Benzonatate 200 mg 09/05/20 21:00 09/13/20 10:04 Benzonatate 100 Mg Capsule PO 200 mg TID TJ Administration Bisacodyl 5 mg 09/04/20 21:00 09/13/20 10:04 Bisacodyl 5 Mg Tablet.Dr PO 5 mg BID TJ Administration Docusate Sodium 100 mg 09/05/20 06:55 09/13/20 10:04 Docusate Sodium 100 Mg Capsule PO 100 mg DAILY PRN Administration Constipation Fluoxetine HCl 10 mg 09/05/20 09:00 09/13/20 10:04 Fluoxetine Hcl 10 Mg Capsule PO 10 mg DAILY TJ Administration Gabapentin 600 mg 09/04/20 21:00 09/12/20 20:23 Gabapentin 600 Mg Tablet PO 600 mg BEDTIME TJ Administration Guaifenesin/Dextromethorphan 10 ml 09/05/20 17:19 09/09/20 09:41 Guaifenesin Dm 100/10/5 Ml 5 Ml Syrup PO 10 ml Q4H PRN Administration cough Vancomycin HCl 1,000 mg/ 270 mls @ 270 mls/hr 09/13/20 08:30 09/13/20 11:29 Sodium Chloride IV Infused Q12H TJ Infusion Insulin Glargine 60 unit 09/10/20 09:00 09/13/20 10:03 Insulin Glargine,Hum.Rec.Anlog 100 Unit/Ml 10 Ml Vial SUBCUT 60 unit DAILY TJ Administration Insulin Glargine 50 unit 09/09/20 21:00 09/12/20 20:23 Insulin Glargine,Hum.Rec.Anlog 100 Unit/Ml 10 Ml Vial SUBCUT 50 unit BEDTIME TJ Administration Insulin Human Lispro 0 unit 09/05/20 07:30 09/13/20 12:14 Insulin Lispro 100 Unit/Ml 3 Ml Vial SUBCUT 4 unit QIDACHS [facility] Administration Protocol Lisinopril 5 mg 09/05/20 09:00 09/13/20 10:04 Lisinopril 5 Mg Tablet PO 5 mg DAILY TJ Administration Protocol Ondansetron HCl 4 mg 09/05/20 06:55 Ondansetron Hcl 4 Mg/2 Ml Vial IVPUSH Q8H PRN Nausea and Vomiting Pharmacy Consult 1 each 09/04/20 14:11 Consult Rx Perform Med Rec MISCELLANE ONCE PRN Consult order Polyethylene Glycol 17 gm 09/07/20 18:30 09/13/20 10:03 Polyethylene Glycol 3350 17 Gm Powd.Pack PO 17 gm DAILY TJ Administration Sodium Chloride 3 ml 09/05/20 08:00 09/13/20 10:04 0.9 % Sodium Chloride Flush 3 Ml Syringe IVFLUSH 3 ml QSHIFT TJ Administration Sodium Chloride 1 spray 09/09/20 20:21 09/09/20 21:18 Sodium Chloride 0.65 % Nasal 44 Ml Sprbtl NOSTRIL-B 1 spray Q1H PRN Administration Dry Nasal Passages Tramadol HCl 50 mg 09/12/20 11:39 09/12/20 20:26 Tramadol Hcl 50 Mg Tablet PO 50 mg Q6H PRN Administration Pain, Moderate (Pain Scale 4-6 Vitamin D 25 mcg 09/05/20 09:00 09/13/20 10:04 Cholecalciferol (Vitamin D3) 25 Mcg Tablet PO 25 mcg DAILY TJ Administration Home Medications Medication Instructions Recorded Confirmed Type aspirin 81 mg PO DAILY 07/17/20 09/04/20 History atorvastatin 40 mg PO BEDTIME 07/17/20 09/04/20 History gabapentin 600 mg PO BEDTIME 07/17/20 09/04/20 History insulin degludec [Tresiba 80 unit SUBCUT QAM 07/17/20 09/04/20 History FlexTouch U-100] ipratropium-albuterol [Combivent 2 puff INHALATION Q6H PRN 07/17/20 09/04/20 History Respimat] liraglutide [Victoza 3-Chet] 1.8 mg SUBCUT DAILY 07/17/20 09/04/20 History lisinopril 5 mg PO DAILY 07/17/20 09/04/20 History metformin 1,000 mg PO BID 07/17/20 09/04/20 History bisacodyl 5 mg PO BID 09/04/20 09/04/20 History cholecalciferol (vitamin D3) 25 mcg PO DAILY 09/04/20 09/04/20 History fluoxetine 10 mg PO DAILY 09/04/20 09/04/20 History insulin degludec [Tresiba 65 unit SUBCUT BEDTIME 09/04/20 09/04/20 History FlexTouch U-100] Allergies Allergy/AdvReac Type Severity Reaction Status Date / Time No Known Allergies Allergy Verified 07/15/20 11:10 [No Known Allergies*] Physical Exam Vital signs: Vital Signs Temp 97.4 F 09/13/20 07:09 Pulse 74 09/13/20 07:09 Resp 17 09/13/20 07:09 BP 131/76 09/13/20 07:09 Pulse Ox 93 09/13/20 07:09 Intake & Output 09/12/20 09/13/20 09/13/20 18:59 06:59 18:59 Intake Total 515 / 1515 1000 / 1515 270 / 270 Output Total 500 / 2550 2050 / 2550 Balance 15 / -1035 -1050 / -1035 270 / 270 Urine Output (Average ml/kg/hr) 0.32 1.30 1.30 Intake: Intake, Oral Amount 240 / 1240 1000 / 1240 Intake, IV Amount 275 / 275 270 / 270 vancomycin HCL 1,000 mg In 0.9 270 / 270 % Sodium Chloride 250 ml @ 270 mls/hr IV Q12H [facility] Rx#: [id number] vancomycin HCL 750 mg 275 / 275 vancomycin HCL 500 mg In 0.9 % Sodium Chloride 250 ml @ 183. 333 mls/hr IV Q12H [facility] Rx#: [id number] Output: Output, Urine Amount 500 / 2550 2050 / 2550 Other: Meal Refused No NPO No Breakfast % Eaten 100% Lunch % Eaten 100% Urine Urinal Urine Color Yellow Last Bowel Movement 09/08/20 Weight 131.542 kg - Constitutional Present: mild distress - Routine HEENT Exam Head: Present: normal inspection ENT: Present: mucous membranes moist - Routine Neck Exam Present: supple - Routine Cardiovascular Exam Cardiovascular: Present: RRR, S1, S2 - Routine Abdominal Exam Present: soft, nontender - Routine Rectal Exam Patient deferred: digital exam - Routine Extremities Exam Present: nontender - Routine Back/Spine/Pelvis Exam Back/Spine: Absent: CVA tenderness - Routine Neurological Exam Present: alert, oriented X3 - Detailed Neurological Exam: Coma Scale Eye Opening: Spontaneous (4) Verbal Response: Oriented (5) Motor Response: Obeys commands (6) Oliver Coma Scale Total: 15 - Routine Psychiatric Exam Present: flat affect Hem/Onc Consult Result - Labs CBC & Chem 7: 09/20/20 05:56 09/19/20 06:18 Labs: Short CBC 09/13/20 Range/Units 06:39 WBC 11.7 H (4.8-10.8) X10*3/uL Hgb 11.4 L (14.0-18.0) g/dl Hct 33.5 L (42-52) % Plt Count 59 L D (160-400) X10*3/uL BMP 09/13/20 06:39 Sodium 135 Potassium 4.0 Chloride 100 Carbon Dioxide 27 BUN 12 Creatinine 0.87 Calcium 8.3 L Assessment and Plan (1) Thrombocytopenia Status: Acute This is pleasant 60-year-old gentleman who presented to the hospital with right big toe infection. With a right toe wound that was draining. He has a past medical history of diabetes as well as peripheral neuropathy. Further workup revealed Sepsis due to diabetic foot ulcer, with MRSA bacteremia from the foot infection. MRI foot done shows no convincing evidence of osteomyelitis. He has been maintained on IV antibiotics: Initially Zosyn and vancomycin. He underwent angiogram and angioplasty by vascular surgery. He is also status post right toe amputation on 09/10/19. He has been on IV vancomycin day 8. Zosyn stopped, as blood culture grew MRSA. Repeat blood culture came back negative. He will need 6 weeks of IV antibiotic on discharge. Vascular surgery following recommended continue IV antibiotic and will monitor over the weekend, vascular surgery will reassess wound on Wednesday for further debridement He has been noted to have worsening Thrombocytopenia. Serial Platelet count: 09/04: 214, 09/06: 201, 09/09: 207, 09/12: 82 and dopped further to 59. DIFFERENTIAL DIAGNOSIS: 1. DRUG INDUCED: The Zosyn, aspirin and Plavix have been held. He was on S/C heparin 5000 I.U, which was stopped yesterday. He did receive a couple of doses of IV heparin 2000 units and 42069 units on September 06. 2. RELATED TO INFECTION: He does have MRSA bacteremia. 3. DIC: Could be related to the infectious issues. 4. ITP: Less likely since the drop is rather acute. 5. UNDERLYING MYELO INFILTRATIVE DISORDER: MDS versus lymphoma, versus multiple myeloma, also less likely given the clinical picture. PLAN: Will check for [place]. Check DIC screen. Check LDH and SIEP. Monitor CBC daily. Will consider platelet transfusion if platelets fall to 15 or below or if he needs any procedures done i.e. debridement. Thank you for the consult, CC:
[2020-09-13 16:00] VITALS: BP 121/65; PULSE 74; RESP 19; TEMP 36.5; O2SAT 96
[2020-09-13 16:24] LABS: Glucose, Whole Blood 276 mg/dL (60-115)
[2020-09-13 17:12] LABS: INTERNATIONAL NORM RATIO 1.1 (0.9-1.1); Prothrombin Time 13.6 SEC (10.8-13.0)
[2020-09-13 17:15] LABS: D Dimer 482 NG/ML; Partial Thromboplastin Time 38.3 SEC (24.1-38.0)
[2020-09-13 17:32] LABS: Lactate Dehydrogenase 170 U/L (118-273)
[2020-09-13 17:41] LABS: Fibrinogen > 700 MG/DL (259-690)
[2020-09-13 18:53] VITALS: BP 142/75; PULSE 76; RESP 19; TEMP 37.3; O2SAT 94
[2020-09-13] MEDS: traMADoL HCL 50 MG TABLET PO (19:38)
[2020-09-13 20:34] LABS: Glucose, Whole Blood 233 mg/dL (60-115)
[2020-09-13 20:53] LABS: Vancomycin Trough 13.6 mcg/mL (10.0-20.0)
--- NOTE | 2020-09-13 21:02 | P.PNID_ITS ---
Subjective Subjective Date of Service: 09/29/20 Interval History: He is sleeping and has no complaints Objective Data Labs CBC & Chem 7: 09/26/20 05:47 09/24/20 06:50 Labs: Laboratory Results - last 24 hr 09/13/20 09/13/20 09/13/20 00:16 06:39 06:39 WBC 11.7 H RBC 3.52 L Hgb 11.4 L Hct 33.5 L MCV 95.2 MCH 32.4 MCHC 34.0 RDW 11.3 Plt Count 59 L D MPV 12.0 Immature Gran % (Auto) 4.7 H Neut % (Auto) 63.8 Lymph % (Auto) 21.2 [place] % (Auto) 7.9 Eos % (Auto) 2.0 Baso % (Auto) 0.4 Lymph # (Auto) 2.5 [place] # (Auto) 0.9 Eos # (Auto) 0.2 Baso # (Auto) 0.1 Abs Immat Gran (auto) 0.55 H Absolute Neuts (auto) 7.4 Absolute Nucleated RBC 0.000 Nucleated RBC % (auto) 0.0 PT INR APTT Fibrinogen D-Dimer Sodium 135 Potassium 4.0 Chloride 100 Carbon Dioxide 27 Anion Gap 12 BUN 12 Creatinine 0.87 Estim Creat Clear Calc 128.5 Estimated GFR > 60 POC Glucose Random Glucose 84 Calcium 8.3 L Lactate Dehydrogenase Vancomycin Trough 20.3 H 09/13/20 09/13/20 09/13/20 07:07 11:36 16:15 WBC RBC Hgb Hct MCV MCH MCHC RDW Plt Count MPV Immature Gran % (Auto) Neut % (Auto) Lymph % (Auto) [place] % (Auto) Eos % (Auto) Baso % (Auto) Lymph # (Auto) [place] # (Auto) Eos # (Auto) Baso # (Auto) Abs Immat Gran (auto) Absolute Neuts (auto) Absolute Nucleated RBC Nucleated RBC % (auto) PT INR APTT Fibrinogen D-Dimer Sodium Potassium Chloride Carbon Dioxide Anion Gap BUN Creatinine Estim Creat Clear Calc Estimated GFR POC Glucose 101 224 H 276 H Random Glucose Calcium Lactate Dehydrogenase Vancomycin Trough 09/13/20 09/13/20 09/13/20 16:54 16:54 20:09 WBC RBC Hgb Hct MCV MCH MCHC RDW Plt Count MPV Immature Gran % (Auto) Neut % (Auto) Lymph % (Auto) [place] % (Auto) Eos % (Auto) Baso % (Auto) Lymph # (Auto) [place] # (Auto) Eos # (Auto) Baso # (Auto) Abs Immat Gran (auto) Absolute Neuts (auto) Absolute Nucleated RBC Nucleated RBC % (auto) PT 13.6 H INR 1.1 APTT 38.3 H Fibrinogen > 700 H D-Dimer 482 Sodium Potassium Chloride Carbon Dioxide Anion Gap BUN Creatinine Estim Creat Clear Calc Estimated GFR POC Glucose Random Glucose Calcium Lactate Dehydrogenase 170 Vancomycin Trough 13.6 09/13/20 20:14 WBC RBC Hgb Hct MCV MCH MCHC RDW Plt Count MPV Immature Gran % (Auto) Neut % (Auto) Lymph % (Auto) [place] % (Auto) Eos % (Auto) Baso % (Auto) Lymph # (Auto) [place] # (Auto) Eos # (Auto) Baso # (Auto) Abs Immat Gran (auto) Absolute Neuts (auto) Absolute Nucleated RBC Nucleated RBC % (auto) PT INR APTT Fibrinogen D-Dimer Sodium Potassium Chloride Carbon Dioxide Anion Gap BUN Creatinine Estim Creat Clear Calc Estimated GFR POC Glucose 233 H Random Glucose Calcium Lactate Dehydrogenase Vancomycin Trough Microbiology Microbiology Results: Microbiology 09/10/20 19:15 Blood - Venous Blood Culture - Preliminary No growth after 48 hours. 09/10/20 19:15 Blood - Venous Blood Culture - Preliminary No growth after 48 hours. 09/04/20 15:00 Blood - Venous Blood Culture - Final Methicillin Res Staph Aureus 09/04/20 14:45 Blood - Venous Blood Culture - Final Methicillin Res Staph Aureus Physical Exam Vital Signs: Vital Signs: Last Vital Signs Temp 99.1 F 09/13/20 18:53 Pulse 76 09/13/20 18:53 Resp 19 09/13/20 18:53 BP 142/75 H 09/13/20 18:53 Pulse Ox 94 09/13/20 18:53 Body Mass Index 37.2 Const: General: cooperative HENMT: Head: Yes normal to inspection Mouth: Normal oral and palatal mucosa present Resp: Effort & Inspection: normal respiratory effort Cardio: Rate: regular rate Rhythm: regular rhythm GI: Palpation (GI): Soft to palpation and nontender Extrem: Other: no change in extremities Assessment and Plan Assessment and plan (1) Diabetic foot ulcer: Status: Acute Assessment and Plan: Would continue Vancomycin for 6 weeks Check echo Time Spent With Patient Time: Total time spent is greater than 50% in coordination of care (as documented) at patient's floor/unit and/or counseling patient: Time with patient: 15 - 24 minutes
[2020-09-13] MEDS: Atorvastatin Calcium 40 MG TABLET PO (22:16)
[2020-09-13] MEDS: Gabapentin 600 MG TABLET PO (22:16)
[2020-09-13] MEDS: Insulin Glargine,Hum.rec.anlog 100 UNIT/ML 10 ML VIAL 50 UNIT SUBCUT (22:17)
[2020-09-13] MEDS: vancomycin HCL 1,000 MG in 0.9 % Sodium Chloride 250 ML 250 MG IV (22:19)
[2020-09-13 23:10] VITALS: BP 150/71; PULSE 59; RESP 18; TEMP 36.8; O2SAT 92
[2020-09-14 04:00] VITALS: BP 114/64; PULSE 65; RESP 18; TEMP 36.8; O2SAT 93
[2020-09-14 06:33] LABS: MANUAL DIFF FLAG NO
[2020-09-14 06:43] LABS: Basophils Percent Auto 0.3 % (0-2); Eosinophils Absolute Auto 0.2 X10*3/uL (0.0-0.4); Hematocrit 34.1 % (42-52); Hemoglobin 11.7 g/dl (14.0-18.0); Imm Gran Abs Auto 0.39 X10*3/uL (0.00-0.03); Imm Gran Pct Auto 3.9 % (0.0-0.4); Lymphocytes Absolute Auto 2.5 X10*3/uL (1.2-4.9); Lymphocytes Percent Auto 24.7 % (20-40); Mean Corpuscular HGB Conc 34.3 g/dl (31.0-36.0); Mean Corpuscular Hemoglobin 32.9 pg (27.0-33.0); Mean Corpuscular Volume 95.8 fL (80-98); Mean Platelet Volume 12.5 fL (9.4-12.4); Monocytes Absolute Auto 0.8 X10*3/uL (0.1-1.2); Monocytes Percent Auto 8.2 % (2-11); NRBC Pct Auto 0.2 /100WBC (0.0-0.2); Neutrophils Percent Auto 60.9 % (45-73); Platelet Count 41 X10*3/uL (160-400); Red Blood Count 3.56 X10*6/uL (4.60-5.80); Red Cell Distribution Width 11.4 % (11.0-16.0); White Blood Count 9.9 X10*3/uL (4.8-10.8)
[2020-09-14 07:10] LABS: Anion Gap 15 (12-20); Blood Urea Nitrogen 15 mg/dL (9-16); Calcium 8.3 mg/dL (8.4-10.2); Carbon Dioxide 26 mmol/L (22-29); Chloride 100 mmol/L (96-108); Creatinine Clr Calc Pharmacy 122.9; Estimated Glomerular Filt Rate > 60; Glucose Random 120 mg/dL (60-115); Sodium 137 mmol/L (135-145)
[2020-09-14 07:49] LABS: Glucose, Whole Blood 119 mg/dL (60-115)
[2020-09-14 08:00] VITALS: BP 125/71; PULSE 63; RESP 19; TEMP 37.1; O2SAT 92
[2020-09-14] MEDS: Insulin Glargine,Hum.rec.anlog 100 UNIT/ML 10 ML VIAL 60 UNIT SUBCUT (08:48)
[2020-09-14 08:50] VITALS: BP 125/71; PULSE 63
[2020-09-14] MEDS: Cholecalciferol (Vitamin D3) 25 MCG TABLET PO (08:51)
[2020-09-14] MEDS: FLUoxetine HCl 10 MG CAPSULE PO (08:51)
[2020-09-14] MEDS: bisacodyL 5 MG TABLET.DR PO ×2 (08:52→20:50)
[2020-09-14] MEDS: Benzonatate 100 MG CAPSULE 200 MG PO ×3 (08:52→20:50)
[2020-09-14] MEDS: 0.9 % Sodium Chloride Flush 3 ML SYRINGE IVFLUSH ×3 (08:56→20:52)
[2020-09-14] MEDS: vancomycin HCL 1,000 MG in 0.9 % Sodium Chloride 250 ML 270 MG IV ×2 (08:57→20:52)
[2020-09-14] MEDS: polyethylene glycoL 3350 17 GM POWD.PACK PO (09:05)
[2020-09-14 11:42] LABS: Glucose, Whole Blood 192 mg/dL (60-115)
[2020-09-14 11:50] VITALS: BP 126/67; PULSE 76; RESP 18; TEMP 36.7; O2SAT 95
[2020-09-14] MEDS: Insulin Lispro 100 UNIT/ML 3 ML VIAL SUBCUT ×3 (11:51→20:50)
--- NOTE | 2020-09-14 12:35 | HO.PM.IMPN ---
Subjective Subjective Date of Service: 09/14/20 Interval History: the patient was seen and evaluated this morning Laying in bed, feels comfortable overall but feels tired overall Denies any fever, chills or shortness of breath Pictures of postop are not encouraging for recovery at the side of surgery No reported other overnight events. Systemic review: No fever, chills or weakness No chest pain, palpitation No shortness of breath or coughing No abdominal pain, nausea or vomiting No urinary symptoms No any rash or wounds Physical Exam Vital Signs: Vital Signs: Last Vital Signs Temp 98.1 F 09/14/20 11:50 Pulse 76 09/14/20 11:50 Resp 18 09/14/20 11:50 BP 126/67 09/14/20 11:50 Pulse Ox 95 09/14/20 11:50 Body Mass Index 37.2 Const: Other: Constitutional : Alert, oriented, not in distress Neck : Normal inspection, Supple Cardiovascular : RRR, S1 S2, no lower extremity edema Respiratory : Chest wall moving bilaterally, not in respiratory distress Gastrointestinal: soft, lax, Normal bowel sounds, Non tender Skin : Warm/Dry, foot in dressing, no erythema or drainage noted, Neurological : Alert & oriented x3, No focal deficit Objective Data Current Medications Generic Name Dose Route Start Last Admin Trade Name Freq PRN Reason Stop Dose Admin Acetaminophen 650 mg 09/05/20 06:55 09/11/20 15:14 Acetaminophen 325 Mg Tablet PO 650 mg Q6H PRN Administration Pain, Mild (Pain Scale 1-3) Artificial Tears 1 drop 09/07/20 18:26 09/07/20 21:47 Artificial Tears 15 Ml Drops EYE-BOTH 1 drop Q6H PRN Administration Dry Eyes Atorvastatin Calcium 40 mg 09/04/20 21:00 09/13/20 22:16 Atorvastatin Calcium 40 Mg Tablet PO 40 mg BEDTIME TJ Administration Benzonatate 200 mg 09/05/20 21:00 09/14/20 08:52 Benzonatate 100 Mg Capsule PO 200 mg TID TJ Administration Bisacodyl 5 mg 09/04/20 21:00 09/14/20 08:52 Bisacodyl 5 Mg Tablet.Dr PO 5 mg BID TJ Administration Docusate Sodium 100 mg 09/05/20 06:55 09/13/20 10:04 Docusate Sodium 100 Mg Capsule PO 100 mg DAILY PRN Administration Constipation Fluoxetine HCl 10 mg 09/05/20 09:00 09/14/20 08:51 Fluoxetine Hcl 10 Mg Capsule PO 10 mg DAILY TJ Administration Gabapentin 600 mg 09/04/20 21:00 09/13/20 22:16 Gabapentin 600 Mg Tablet PO 600 mg BEDTIME TJ Administration Guaifenesin/Dextromethorphan 10 ml 09/05/20 17:19 09/09/20 09:41 Guaifenesin Dm 100/10/5 Ml 5 Ml Syrup PO 10 ml Q4H PRN Administration cough Vancomycin HCl 1,000 mg/ 270 mls @ 270 mls/hr 09/13/20 08:30 09/14/20 10:20 Sodium Chloride IV Infused Q12H TJ Infusion Insulin Glargine 60 unit 09/10/20 09:00 09/14/20 08:48 Insulin Glargine,Hum.Rec.Anlog 100 Unit/Ml 10 Ml Vial SUBCUT 60 unit DAILY TJ Administration Insulin Glargine 50 unit 09/09/20 21:00 09/13/20 22:17 Insulin Glargine,Hum.Rec.Anlog 100 Unit/Ml 10 Ml Vial SUBCUT 50 unit BEDTIME TJ Administration Insulin Human Lispro 0 unit 09/05/20 07:30 09/14/20 11:51 Insulin Lispro 100 Unit/Ml 3 Ml Vial SUBCUT 2 unit QIDACHS TJ Administration Protocol Lisinopril 5 mg 09/05/20 09:00 09/14/20 08:50 Lisinopril 5 Mg Tablet PO 5 mg DAILY TJ Administration Protocol Ondansetron HCl 4 mg 09/05/20 06:55 Ondansetron Hcl 4 Mg/2 Ml Vial IVPUSH Q8H PRN Nausea and Vomiting Pharmacy Consult 1 each 09/04/20 14:11 Consult Rx Perform Med Rec MISCELLANE ONCE PRN Consult order Polyethylene Glycol 17 gm 09/07/20 18:30 09/14/20 09:05 Polyethylene Glycol 3350 17 Gm Powd.Pack PO 17 gm DAILY TJ Administration Sodium Chloride 3 ml 09/05/20 08:00 09/14/20 08:56 0.9 % Sodium Chloride Flush 3 Ml Syringe IVFLUSH 3 ml QSHIFT TJ Administration Sodium Chloride 1 spray 09/09/20 20:21 09/09/20 21:18 Sodium Chloride 0.65 % Nasal 44 Ml Sprbtl NOSTRIL-B 1 spray Q1H PRN Administration Dry Nasal Passages Tramadol HCl 50 mg 09/12/20 11:39 09/13/20 19:38 Tramadol Hcl 50 Mg Tablet PO 50 mg Q6H PRN Administration Pain, Moderate (Pain Scale 4-6 Vitamin D 25 mcg 09/05/20 09:00 09/14/20 08:51 Cholecalciferol (Vitamin D3) 25 Mcg Tablet PO 25 mcg DAILY TJ Administration Labs CBC & Chem 7: 09/14/20 06:16 09/14/20 06:16 Microbiology Microbiology Results: Microbiology 09/10/20 19:15 Blood - Venous Blood Culture - Preliminary No growth after 48 hours. 09/10/20 19:15 Blood - Venous Blood Culture - Preliminary No growth after 48 hours. 09/04/20 15:00 Blood - Venous Blood Culture - Final Methicillin Res Staph Aureus 09/04/20 14:45 Blood - Venous Blood Culture - Final Methicillin Res Staph Aureus Assessment and Plan (1) Cellulitis: Status: Acute (2) Necrosis of toe: Status: Acute (3) Elevated erythrocyte sedimentation rate: Status: Acute Assessment and Plan: 60-year-old male with past medical history of diabetes as well as peripheral neuropathy who presents to the hospital with complaints of right toe wound, drainage Sepsis due to diabetic foot ulcer MRSA bacteremia from foot infection Status post angiogram and angioplasty by vascular surgery Status post right toe amputation on MRI foot done shows no convincing evidence of osteomyelitis continue IV vancomycin day 9 monitor Vanco trough repeat blood culture negative Will need PICC line and 6 weeks of IV antibiotic on discharge Vascular surgery following recommended continue IV antibiotic and will monitor over the weekend, vascular surgery will reassess wound on Wednesday for further debridement Thrombocytopenia worsening Platelet chronic dropped further to 41 was normal 2 days before No bleeding reported Continue to hold aspirin and Plavix Heparin was stopped yesterday Test are negative for DIC Hematology input appreciated Monitor CBC Hypomagnesemia replaced and resolved Hyperglycemia Diabetes mellitus uncontrolled continue Lantus b.i.d., continue sliding scale insulin and diabetic diet follow blood sugar closely and adjust medication. Metformin on hold Continue Neurontin Hypertension BP stable continue lisinopril constipation Continue MiraLax continue lactulose Hyperlipidemia statin DVT prophylaxis: SCDs, heparin stopped for thrombocytopenia
[2020-09-14 15:33] VITALS: BP 149/74; PULSE 59; RESP 18; TEMP 36.6; O2SAT 94
[2020-09-14 17:07] LABS: Glucose, Whole Blood 172 mg/dL (60-115)
[2020-09-14] MEDS: traMADoL HCL 50 MG TABLET PO (19:54)
[2020-09-14] MEDS: Docusate Sodium 100 MG CAPSULE PO (19:54)
[2020-09-14 20:00] VITALS: BP 147/82; PULSE 64; RESP 20; TEMP 36.9; O2SAT 93
[2020-09-14 20:38] LABS: Vancomycin Trough 14.2 mcg/mL (10.0-20.0)
[2020-09-14 20:39] LABS: Glucose, Whole Blood 238 mg/dL (60-115)
[2020-09-14] MEDS: Gabapentin 600 MG TABLET PO (20:50)
[2020-09-14] MEDS: Atorvastatin Calcium 40 MG TABLET PO (20:50)
[2020-09-14] MEDS: Insulin Glargine,Hum.rec.anlog 100 UNIT/ML 10 ML VIAL 50 UNIT SUBCUT (20:51)
[2020-09-15] VITALS (7 sets, daily range): BP systolic 117–152; BP diastolic 58–78; PULSE 61–70; RESP 18–20; TEMP 36.6–37.2; O2SAT 92–97
[2020-09-15 07:30] LABS: MANUAL DIFF FLAG NO
[2020-09-15 07:42] LABS: Basophils Percent Auto 0.4 % (0-2); Eosinophils Absolute Auto 0.2 X10*3/uL (0.0-0.4); Hematocrit 34.8 % (42-52); Hemoglobin 11.9 g/dl (14.0-18.0); Imm Gran Abs Auto 0.31 X10*3/uL (0.00-0.03); Lymphocytes Absolute Auto 1.8 X10*3/uL (1.2-4.9); Lymphocytes Percent Auto 17.7 % (20-40); Mean Corpuscular HGB Conc 34.2 g/dl (31.0-36.0); Mean Corpuscular Volume 96.4 fL (80-98); Mean Platelet Volume 12.6 fL (9.4-12.4); Monocytes Absolute Auto 0.9 X10*3/uL (0.1-1.2); Monocytes Percent Auto 8.5 % (2-11); Neutrophils Percent Auto 68.4 % (45-73); Red Blood Count 3.61 X10*6/uL (4.60-5.80); Red Cell Distribution Width 11.5 % (11.0-16.0); White Blood Count 10.2 X10*3/uL (4.8-10.8)
[2020-09-15 07:44] LABS: Platelet Count 37 X10*3/uL (160-400)
[2020-09-15 08:11] LABS: Anion Gap 14 (12-20); Blood Urea Nitrogen 15 mg/dL (9-16); Calcium 8.4 mg/dL (8.4-10.2); Carbon Dioxide 26 mmol/L (22-29); Chloride 101 mmol/L (96-108); Creatinine Clr Calc Pharmacy 122.9; Estimated Glomerular Filt Rate > 60; Glucose Random 126 mg/dL (60-115); Potassium 4.1 mmol/l (3.3-5.1); Sodium 137 mmol/L (135-145)
[2020-09-15 08:27] LABS: Glucose, Whole Blood 147 mg/dL (60-115)
[2020-09-15] MEDS: FLUoxetine HCl 10 MG CAPSULE PO (10:05)
[2020-09-15] MEDS: Benzonatate 100 MG CAPSULE 200 MG PO ×3 (10:05→21:09)
[2020-09-15] MEDS: polyethylene glycoL 3350 17 GM POWD.PACK PO (10:05)
[2020-09-15] MEDS: Insulin Glargine,Hum.rec.anlog 100 UNIT/ML 10 ML VIAL 60 UNIT SUBCUT (10:05)
[2020-09-15] MEDS: Cholecalciferol (Vitamin D3) 25 MCG TABLET PO (10:05)
[2020-09-15] MEDS: bisacodyL 5 MG TABLET.DR PO ×2 (10:05→21:09)
[2020-09-15] MEDS: vancomycin HCL 1,000 MG in 0.9 % Sodium Chloride 250 ML 270 MG IV (10:08)
[2020-09-15] MEDS: 0.9 % Sodium Chloride Flush 3 ML SYRINGE IVFLUSH ×2 (10:09→15:29)
--- NOTE | 2020-09-15 10:28 | HO.PM.IMPN ---
Subjective Subjective Date of Service: 09/15/20 Interval History: the patient was seen and evaluated this morning Laying in bed, feels comfortable overall and pain under good control Denies any fever, chills or shortness of breath Pictures of postop are not encouraging for recovery at the side of surgery Platelets remain low to 37 today No reported other overnight events. Systemic review: No fever, chills or weakness No chest pain, palpitation No shortness of breath or coughing No abdominal pain, nausea or vomiting No urinary symptoms No any rash or wounds Physical Exam Vital Signs: Vital Signs: Last Vital Signs Temp 98.9 F 09/15/20 07:23 Pulse 61 09/15/20 10:05 Resp 18 09/15/20 07:23 BP 125/58 L 09/15/20 10:05 Pulse Ox 92 09/15/20 07:23 Body Mass Index 37.2 Const: Other: Constitutional : Alert, oriented, not in distress Neck : Normal inspection, Supple Cardiovascular : RRR, S1 S2, no lower extremity edema Respiratory : Chest wall moving bilaterally, not in respiratory distress Gastrointestinal: soft, lax, Normal bowel sounds, Non tender Skin : Warm/Dry, foot in dressing, no erythema or drainage noted, Neurological : Alert & oriented x3, No focal deficit Objective Data Current Medications Generic Name Dose Route Start Last Admin Trade Name Freq PRN Reason Stop Dose Admin Acetaminophen 650 mg 09/05/20 06:55 09/11/20 15:14 Acetaminophen 325 Mg Tablet PO 650 mg Q6H PRN Administration Pain, Mild (Pain Scale 1-3) Artificial Tears 1 drop 09/07/20 18:26 09/07/20 21:47 Artificial Tears 15 Ml Drops EYE-BOTH 1 drop Q6H PRN Administration Dry Eyes Atorvastatin Calcium 40 mg 09/04/20 21:00 09/14/20 20:50 Atorvastatin Calcium 40 Mg Tablet PO 40 mg BEDTIME TJ Administration Benzonatate 200 mg 09/05/20 21:00 09/15/20 10:05 Benzonatate 100 Mg Capsule PO 200 mg TID TJ Administration Bisacodyl 5 mg 09/04/20 21:00 09/15/20 10:05 Bisacodyl 5 Mg Tablet.Dr PO 5 mg BID TJ Administration Docusate Sodium 100 mg 09/05/20 06:55 09/14/20 19:54 Docusate Sodium 100 Mg Capsule PO 100 mg DAILY PRN Administration Constipation Fluoxetine HCl 10 mg 09/05/20 09:00 09/15/20 10:05 Fluoxetine Hcl 10 Mg Capsule PO 10 mg DAILY TJ Administration Gabapentin 600 mg 09/04/20 21:00 09/14/20 20:50 Gabapentin 600 Mg Tablet PO 600 mg BEDTIME TJ Administration Guaifenesin/Dextromethorphan 10 ml 09/05/20 17:19 09/09/20 09:41 Guaifenesin Dm 100/10/5 Ml 5 Ml Syrup PO 10 ml Q4H PRN Administration cough Vancomycin HCl 1,000 mg/ 270 mls @ 270 mls/hr 09/13/20 08:30 09/15/20 10:08 Sodium Chloride IV 270 mls/hr Q12H TJ Administration Insulin Glargine 60 unit 09/10/20 09:00 09/15/20 10:05 Insulin Glargine,Hum.Rec.Anlog 100 Unit/Ml 10 Ml Vial SUBCUT 60 unit DAILY TJ Administration Insulin Glargine 50 unit 09/09/20 21:00 09/14/20 20:51 Insulin Glargine,Hum.Rec.Anlog 100 Unit/Ml 10 Ml Vial SUBCUT 50 unit BEDTIME TJ Administration Insulin Human Lispro 0 unit 09/05/20 07:30 09/15/20 07:56 Insulin Lispro 100 Unit/Ml 3 Ml Vial SUBCUT Not Given QIDACHS [facility] Protocol Lisinopril 5 mg 09/05/20 09:00 09/15/20 10:05 Lisinopril 5 Mg Tablet PO 5 mg DAILY TJ Administration Protocol Ondansetron HCl 4 mg 09/05/20 06:55 Ondansetron Hcl 4 Mg/2 Ml Vial IVPUSH Q8H PRN Nausea and Vomiting Pharmacy Consult 1 each 09/04/20 14:11 Consult Rx Perform Med Rec MISCELLANE ONCE PRN Consult order Polyethylene Glycol 17 gm 09/07/20 18:30 09/15/20 10:05 Polyethylene Glycol 3350 17 Gm Powd.Pack PO 17 gm DAILY TJ Administration Sodium Chloride 3 ml 09/05/20 08:00 09/15/20 10:09 0.9 % Sodium Chloride Flush 3 Ml Syringe IVFLUSH 3 ml QSHIFT TJ Administration Sodium Chloride 1 spray 09/09/20 20:21 09/09/20 21:18 Sodium Chloride 0.65 % Nasal 44 Ml Sprbtl NOSTRIL-B 1 spray Q1H PRN Administration Dry Nasal Passages Tramadol HCl 50 mg 09/12/20 11:39 09/14/20 19:54 Tramadol Hcl 50 Mg Tablet PO 50 mg Q6H PRN Administration Pain, Moderate (Pain Scale 4-6 Vitamin D 25 mcg 09/05/20 09:00 09/15/20 10:05 Cholecalciferol (Vitamin D3) 25 Mcg Tablet PO 25 mcg DAILY TJ Administration Labs CBC & Chem 7: 09/15/20 07:12 09/15/20 07:12 Microbiology Microbiology Results: Microbiology 09/10/20 19:15 Blood - Venous Blood Culture - Preliminary No growth after 48 hours. 09/10/20 19:15 Blood - Venous Blood Culture - Preliminary No growth after 48 hours. 09/04/20 15:00 Blood - Venous Blood Culture - Final Methicillin Res Staph Aureus 09/04/20 14:45 Blood - Venous Blood Culture - Final Methicillin Res Staph Aureus Assessment and Plan (1) Cellulitis: Status: Acute (2) Necrosis of toe: Status: Acute (3) Elevated erythrocyte sedimentation rate: Status: Acute Assessment and Plan: 60-year-old male with past medical history of diabetes as well as peripheral neuropathy who presents to the hospital with complaints of right toe wound, drainage Sepsis due to diabetic foot ulcer MRSA bacteremia from foot infection Status post angiogram and angioplasty by vascular surgery Status post right toe amputation on MRI foot done shows no convincing evidence of osteomyelitis continue IV vancomycin day 10 monitor Vanco trough repeat blood culture negative Will need PICC line and 6 weeks of IV antibiotic on discharge Vascular surgery following recommended continue IV antibiotic and will monitor over the weekend, vascular surgery will reassess wound on Wednesday for further debridement Thrombocytopenia worsening Platelet chronic dropped further to 37 Likely a result of bacteremia, antibiotics and possibly other medications No bleeding reported Continue to hold aspirin and Plavix Heparin was stopped yesterday Test are negative for DIC Discussed with Dr. Padgett, continue to monitor for 9 Monitor CBC Hypomagnesemia replaced and resolved Hyperglycemia Diabetes mellitus uncontrolled continue Lantus b.i.d., continue sliding scale insulin and diabetic diet follow blood sugar closely and adjust medication. Metformin on hold Continue Neurontin Hypertension BP stable continue lisinopril constipation Continue MiraLax continue lactulose Hyperlipidemia statin DVT prophylaxis: SCDs, heparin stopped for thrombocytopenia
[2020-09-15 12:07] LABS: Glucose, Whole Blood 207 mg/dL (60-115)
[2020-09-15] MEDS: Insulin Lispro 100 UNIT/ML 3 ML VIAL SUBCUT ×3 (12:16→21:10)
--- NOTE | 2020-09-15 15:23 | MHC.CM.PN ---
PER REVIEW OF NOTES, PLAN IS PICC AND IV ANTIBIOTICS. 'CASE MANAGEMENT TO FOLLOW UP WITH PATIENT ON WEDNESDAY PLAN WILL BE HOME WITH IV ABX AND VNA VERSES SHORT TERM REHAB.
[2020-09-15 16:25] LABS: Glucose, Whole Blood 226 mg/dL (60-115)
[2020-09-15] MEDS: Milk of Magnesia 30 ML ORAL.SUSP PO (16:32)
[2020-09-15] MEDS: Docusate Sodium 100 MG CAPSULE PO ×2 (16:32→21:09)
[2020-09-15 20:18] LABS: Glucose, Whole Blood 260 mg/dL (60-115)
[2020-09-15] MEDS: vancomycin HCL 1,000 MG in 0.9 % Sodium Chloride 250 ML 250 MG IV (21:08)
[2020-09-15] MEDS: Insulin Glargine,Hum.rec.anlog 100 UNIT/ML 10 ML VIAL 50 UNIT SUBCUT (21:10)
[2020-09-15] MEDS: Atorvastatin Calcium 40 MG TABLET PO (21:10)
[2020-09-15] MEDS: Gabapentin 600 MG TABLET PO (21:10)
[2020-09-16] VITALS (9 sets, daily range): BP systolic 100–151; BP diastolic 54–75; PULSE 65–101; RESP 18; TEMP 36.2–38.9; O2SAT 91–97
[2020-09-16] MEDS: 0.9 % Sodium Chloride Flush 3 ML SYRINGE IVFLUSH ×4 (01:09→23:28)
[2020-09-16] MEDS: traMADoL HCL 50 MG TABLET PO (01:12)
[2020-09-16 07:10] LABS: Monocytes Absolute Auto 0.8 X10*3/uL (0.1-1.2); Monocytes Percent Auto 7.1 % (2-11); Red Blood Count 3.61 X10*6/uL (4.60-5.80)
[2020-09-16 07:12] LABS: Basophils Percent Auto 0.4 % (0-2); Eosinophils Absolute Auto 0.1 X10*3/uL (0.0-0.4); Eosinophils Percent Auto 1.1 % (0-4); Hematocrit 34.4 % (42-52); Hemoglobin 11.9 g/dl (14.0-18.0); Imm Gran Abs Auto 0.14 X10*3/uL (0.00-0.03); Imm Gran Pct Auto 1.2 % (0.0-0.4); Lymphocytes Absolute Auto 1.8 X10*3/uL (1.2-4.9); Lymphocytes Percent Auto 16.1 % (20-40); Mean Corpuscular HGB Conc 34.6 g/dl (31.0-36.0); Mean Corpuscular Volume 95.3 fL (80-98); Neutrophils Absolute Auto 8.4 X10*3/uL (2.0-8.3); Neutrophils Percent Auto 74.1 % (45-73); Red Cell Distribution Width 11.5 % (11.0-16.0); White Blood Count 11.4 X10*3/uL (4.8-10.8)
[2020-09-16 07:14] LABS: Platelet Count 31 X10*3/uL (160-400)
[2020-09-16 07:15] LABS: MANUAL DIFF FLAG NO
[2020-09-16 07:16] LABS: INTERNATIONAL NORM RATIO 1.3 (0.9-1.1); Prothrombin Time 15.1 SEC (10.8-13.0)
[2020-09-16 07:27] LABS: Glucose, Whole Blood 134 mg/dL (60-115)
[2020-09-16 07:30] LABS: Anion Gap 12 (12-20); Blood Urea Nitrogen 17 mg/dL (9-16); Calcium 8.2 mg/dL (8.4-10.2); Carbon Dioxide 27 mmol/L (22-29); Chloride 100 mmol/L (96-108); Creatinine Clr Calc Pharmacy 115.3; Estimated Glomerular Filt Rate > 60; Glucose Random 130 mg/dL (60-115); Sodium 135 mmol/L (135-145)
[2020-09-16 07:38] LABS: Vancomycin Trough 15.5 mcg/mL (10.0-20.0)
[2020-09-16] MEDS: vancomycin HCL 1,000 MG in 0.9 % Sodium Chloride 250 ML 250 MG IV ×2 (09:22→21:10)
--- NOTE | 2020-09-16 10:49 | P.PNIM_ITS ---
Subjective Subjective Date of Service: 09/16/20 Interval History: The patient was seen and evaluated this morning Laying in bed, feels comfortable overall and pain under good control Denies any fever, chills or shortness of breath Patient will need further debridement at the surgical site, will hold on that for now Platelets remain low to 31 today No reported other overnight events. Systemic review: No fever, chills or weakness No chest pain, palpitation No shortness of breath or coughing No abdominal pain, nausea or vomiting but reported constipation No urinary symptoms No any rash or wounds Physical Exam Vital Signs: Vital Signs: Last Vital Signs Temp 98.6 F 09/16/20 07:21 Pulse 73 09/16/20 07:21 Resp 18 09/16/20 07:21 BP 125/66 09/16/20 07:21 Pulse Ox 92 09/16/20 07:21 Body Mass Index 37.2 Const: Other: Constitutional : Alert, oriented, not in distress Neck : Normal inspection, Supple Cardiovascular : RRR, S1 S2, no lower extremity edema Respiratory : Chest wall moving bilaterally, not in respiratory distress Gastrointestinal: soft, lax, Normal bowel sounds, Non tender Skin : Warm/Dry, foot in dressing, no erythema or drainage noted, Neurological : Alert & oriented x3, No focal deficit Objective Data Current Medications Generic Name Dose Route Start Last Admin Trade Name Freq PRN Reason Stop Dose Admin Acetaminophen 650 mg 09/05/20 06:55 09/11/20 15:14 Acetaminophen 325 Mg Tablet PO 650 mg Q6H PRN Administration Pain, Mild (Pain Scale 1-3) Artificial Tears 1 drop 09/07/20 18:26 09/07/20 21:47 Artificial Tears 15 Ml Drops EYE-BOTH 1 drop Q6H PRN Administration Dry Eyes Atorvastatin Calcium 40 mg 09/04/20 21:00 09/15/20 21:10 Atorvastatin Calcium 40 Mg Tablet PO 40 mg BEDTIME TJ Administration Benzonatate 200 mg 09/05/20 21:00 09/16/20 08:56 Benzonatate 100 Mg Capsule PO Not Given TID TJ Bisacodyl 5 mg 09/04/20 21:00 09/16/20 08:56 Bisacodyl 5 Mg Tablet.Dr PO Not Given BID TJ Docusate Sodium 100 mg 09/15/20 16:20 09/16/20 08:56 Docusate Sodium 100 Mg Capsule PO Not Given BID TJ Fluoxetine HCl 10 mg 09/05/20 09:00 09/16/20 08:56 Fluoxetine Hcl 10 Mg Capsule PO Not Given DAILY [facility] Gabapentin 600 mg 09/04/20 21:00 09/15/20 21:10 Gabapentin 600 Mg Tablet PO 600 mg BEDTIME TJ Administration Guaifenesin/Dextromethorphan 10 ml 09/05/20 17:19 09/09/20 09:41 Guaifenesin Dm 100/10/5 Ml 5 Ml Syrup PO 10 ml Q4H PRN Administration cough Vancomycin HCl 1,000 mg/ 270 mls @ 270 mls/hr 09/13/20 08:30 09/16/20 10:36 Sodium Chloride IV Infused Q12H [facility] Infusion Insulin Glargine 60 unit 09/10/20 09:00 09/16/20 08:56 Insulin Glargine,Hum.Rec.Anlog 100 Unit/Ml 10 Ml Vial SUBCUT Not Given DAILY [facility] Insulin Glargine 50 unit 09/09/20 21:00 09/15/20 21:10 Insulin Glargine,Hum.Rec.Anlog 100 Unit/Ml 10 Ml Vial SUBCUT 50 unit BEDTIME [facility] Administration Insulin Human Lispro 0 unit 09/05/20 07:30 09/16/20 08:55 Insulin Lispro 100 Unit/Ml 3 Ml Vial SUBCUT Not Given QIDACHS [facility] Protocol Lisinopril 5 mg 09/05/20 09:00 09/16/20 08:57 Lisinopril 5 Mg Tablet PO Not Given DAILY [facility] Protocol Ondansetron HCl 4 mg 09/05/20 06:55 Ondansetron Hcl 4 Mg/2 Ml Vial IVPUSH Q8H PRN Nausea and Vomiting Pharmacy Consult 1 each 09/04/20 14:11 Consult Rx Perform Med Rec MISCELLANE ONCE PRN Consult order Polyethylene Glycol 17 gm 09/07/20 18:30 09/16/20 08:57 Polyethylene Glycol 3350 17 Gm Powd.Pack PO Not Given DAILY [facility] Sodium Chloride 3 ml 09/05/20 08:00 09/16/20 08:56 0.9 % Sodium Chloride Flush 3 Ml Syringe IVFLUSH 3 ml QSHIFT [facility] Administration Sodium Chloride 1 spray 09/09/20 20:21 09/09/20 21:18 Sodium Chloride 0.65 % Nasal 44 Ml Sprbtl NOSTRIL-B 1 spray Q1H PRN Administration Dry Nasal Passages Tramadol HCl 50 mg 09/12/20 11:39 09/16/20 01:12 Tramadol Hcl 50 Mg Tablet PO 50 mg Q6H PRN Administration Pain, Moderate (Pain Scale 4-6 Vitamin D 25 mcg 09/05/20 09:00 09/16/20 08:56 Cholecalciferol (Vitamin D3) 25 Mcg Tablet PO Not Given DAILY TJ Labs CBC & Chem 7: 09/16/20 06:58 09/16/20 06:58 Microbiology Microbiology Results: Microbiology 09/10/20 19:15 Blood - Venous Blood Culture - Final No growth after 5 days. 09/10/20 19:15 Blood - Venous Blood Culture - Final No growth after 5 days. 09/04/20 15:00 Blood - Venous Blood Culture - Final Methicillin Res Staph Aureus 09/04/20 14:45 Blood - Venous Blood Culture - Final Methicillin Res Staph Aureus Assessment and Plan (1) Cellulitis: Status: Acute (2) Necrosis of toe: Status: Acute (3) Elevated erythrocyte sedimentation rate: Status: Acute (4) Thrombocytopenia: Status: Acute (5) MRSA bacteremia: Status: Acute Assessment and Plan: 60-year-old male with past medical history of diabetes as well as peripheral neuropathy who presents to the hospital with complaints of right toe wound, drainage Sepsis due to diabetic foot ulcer, resolved MRSA bacteremia Status post angiogram and angioplasty by vascular surgery Status post right toe amputation on MRI foot done shows no convincing evidence of osteomyelitis continue IV vancomycin day 11 monitor Vanco trough repeat blood culture negative Will need PICC line and 6 weeks of IV antibiotic on discharge vascular surgery will reassess wound for further debridement Thrombocytopenia worsening Platelet chronic dropped further to 31 Likely a result of bacteremia, antibiotics and possibly other medications No bleeding reported Continue to hold heparin, aspirin and Plavix Pending [place] results Discussed with Dr. Padgett, continue to monitor for now, transfuse for less than 10 or if bleeding Monitor CBC Hyperglycemia Diabetes mellitus uncontrolled continue Lantus b.i.d., continue sliding scale insulin and diabetic diet follow blood sugar closely and adjust medication. Metformin on hold Continue Neurontin Constipation Secondary to decreased activity and pain medications To use MiraLax, Colace and senna Hypomagnesemia replaced and resolved Hypertension BP stable continue lisinopril constipation Continue MiraLax continue lactulose Hyperlipidemia statin DVT prophylaxis: SCDs, heparin stopped for thrombocytopenia
--- NOTE | 2020-09-16 10:50 | MHC.CM.PN ---
nurse acute care assistant note electronic medical record reviewed diabetic foot ulcer with mrsa bacteremia cs/p toe amputation on 09/10/20 with still a opened area . 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
[2020-09-16 11:36] LABS: Glucose, Whole Blood 112 mg/dL (60-115)
[2020-09-16 12:27] LABS: IgA 678 mg/dL (70-320); IgG 1568 mg/dL (600-1540); IgM 36 mg/dL (50-300)
--- NOTE | 2020-09-16 13:00 | CA_ITS ---
Transthoracic Echocardiogram Patient (Last, First, Middle): Ramy Benson, Gender: Male Date of : 1960 Age: 60 Procedure Date: 09/16/2020 Procedure Type: Transthoracic Echocardiogram Location: S3W Height: 187.96 cm Weight: 131.54 kg BSA: 2.54 m2 Heart Rate: bpm BP: 125 / 66 mmHg Postal Carrier: Referring MD: Brodie Lawson MD Symptoms: MRSa bactremia r/o endocarditis Study Quality: Technically Difficult due to obesity ECG Rhythm: Sinus Conclusions: - The left ventricular systolic function is hyperdynamic. The visually estimated ejection fraction is >70%. - Normal right ventricular cavity size and systolic function. - Inadequate assessment of aortic and pulmonic valves. No obvious vegetation noticed on visualized valves. - Consider a CALI if clinically appropriate. Findings Left Ventricle Normal left ventricular cavity size. There is mildly increased left ventricular wall thickness. The left ventricular systolic function is hyperdynamic. The visually estimated ejection fraction is >70%. Abnormal diastolic function is noted. Spectral Doppler is indicative of an impaired relaxation filling pattern. E/E prime ratio is between 8 and 15 consistent with indeterminate filling pressures. Right Ventricle Normal right ventricular cavity size and systolic function. Atria Both atria are normal in size. Aortic Valve The aortic valve was not well visualized. There is no aortic valve stenosis. There is no aortic valve regurgitation. Mitral Valve Normal mitral valve structure and function. There is no mitral valve regurgitation. There is no mitral valve stenosis. Pulmonic Valve The pulmonic valve was not well visualized. Tricuspid Valve Normal tricuspid valve structure. There is trace tricuspid valve regurgitation. Normal right atrial pressure. There is no evidence of pulmonary hypertension. Great Vessels The aorta was not well visualized. The pulmonary artery was not well visualized. Venous The inferior vena cava is normal in size and collapses greater than 50% with inspiration. Pericardium/Pleural There is no evidence of pericardial effusion. Prior Study Comparison No significant change compared to prior study dated: 12/25/2001. Recommendations, Care & Conclusions Consider a CALI if clinically appropriate. Measurements 2D Linear Measurements IVSd: 1.32 0.6-0.9/0.6-1.0 cm LVIDd: 4.36 3.9-5.3/4.2-5.9 cm LVIDd Index: 1.72 2.4-3.2/2.2-3.1 cm/m2 LVIDs: 2.81 2.0-3.6 cm LVPWd: 1.30 0.7-1.1 cm Ao Root: 3.20 2.1-3.5 cm LA Diam: 3.80 2.7-3.8/3.0-4.0 cm LAIDs Index: 1.50 1.5-2.3 cm/m2 LV Mass: 267.47 67-162/88-224 g LV Mass Index: 105.30 43-95/49-115 g/m2 LVOT Diam: 2.20 3.0+(-)1.3 cm Mitral Valve MV Pk E: 0.75 MV PK A: 0.92 MV Decel Time: 137.00 E/A: 0.80 E'Lateral: 7.35 E'Medial: 8.90 E/E' Med: 8.40 E/E' Lat: 10.20 PHT: 40.00 MVA PHT: 5.50 Decel Camas: 5.47 Aortic Valve AoV Pk Denis: 1.67 AoV Mn Denis: 1.22 AoV VTI: 0.31 AoV Pk Grad: 11.00 Aov Mn Grad: 7.00 DANAE Cont.VTI: 2.93 LVOT LVOT Pk Denis: 1.23 LVOT Mn Denis: 0.81 LVOT VTI: 0.24 LVOT Pk Grad: 6.00 LVOT Mn Grad: 3.00 LVOT Diam: 2.20 LVOT Area: 3.80 Diastolic Function MV Pk E: 0.75 MV Pk A: 0.92 E/A: 0.80 E'Medial: 8.90 E/E' Med: 8.40 E' Laterial: 7.35 E/E' Lat: 10.20 Tricuspid Valve TR Pk Denis: 2.20 TR Pk Grad: 19.00 RA Press: 3.00 RVSP: 22.00 Great Vessels Aorta Ao Root-2D: 3.20 2.0-3.7 cm Ao Asc: 3.50 2.1-3.4 cm Pulmonary Valve PV Pk Denis: 0.94 Peak PV Grad: 4.00 Updated in Other Vendor System with Status of Final Lewis Maloney MD electronically signed on 09/17/2020 2:21:51 PM with status of Final
--- NOTE | 2020-09-16 13:00 | P.PNVS_ITS ---
Subjective Subjective Date of Service: 09/16/20 Patient reports: no new complaints and feels better Interval history: Patient seen and examined. No events over the weekend. Continues to have at the nonhealing right lower extremity amputation incision site. Has had antibiotics through the weekend. Of note he was found to have decreased platelets. He now presents for vascular follow-up. Physical Exam Vital Signs: Vital Signs: Last Vital Signs Temp 98.1 F 09/16/20 11:19 Pulse 68 09/16/20 11:19 Resp 18 09/16/20 11:19 BP 123/70 09/16/20 11:19 Pulse Ox 92 09/16/20 11:19 Body Mass Index 37.2 Const: General: cooperative, healthy appearing and no acute distress Orientation/consciousness: oriented to person, oriented to place and oriented to time HENMT: Head: Yes normal to inspection Neck: Carotids: no bruits Chest: Chest palpation & inspection: normal inspection of the chest Resp: Effort & Inspection: normal respiratory effort and able to speak in complete sentences Auscultation: clear to auscultation bilaterally Cardio: Rate: regular rate Heart sounds: S1 normal heart sound present and S2 normal heart sound present GI: Inspection: Yes normal to inspection Skin: General skin exam: no rashes or lesions noted Wounds: amputation site (Right great toe amp site open exposed bone) Neuro: General: oriented to person, oriented to place, oriented to time and CN's II-XI intact bilaterally Extrem: General: Yes normal to inspection, Yes full ROM and Yes no clubbing, cyanosis or edema Psych: Appearance: grossly normal and well kempt Speech and movement: Normal speech and movement present Affect: normal affect Progress Note: A&P Assessment and plan (1) Diabetic foot ulcer: Problem details: MRSA bacteremia Due to foot wound Status: Acute Assessment and Plan: The patient has a nonhealing right great toe amputation site. Bone is exposed. The patient will require a right great toe ray amputation. This was discussed in detail with the patient he is in agreement. Risks benefits complications were discussed in detail with the patient he understood and consented. Will schedule for tomorrow. In addition he will be requiring platelet transfusion prior to procedure. This was discussed with the medical team. He is scheduled for 1230 tomorrow. Fall Risk Details Current Medications: Current Medications Generic Name Dose Route Start Last Admin Trade Name Freq PRN Reason Stop Dose Admin Acetaminophen 650 mg 09/05/20 06:55 09/11/20 15:14 Acetaminophen 325 Mg Tablet PO 650 mg Q6H PRN Administration Pain, Mild (Pain Scale 1-3) Artificial Tears 1 drop 09/07/20 18:26 09/07/20 21:47 Artificial Tears 15 Ml Drops EYE-BOTH 1 drop Q6H PRN Administration Dry Eyes Atorvastatin Calcium 40 mg 09/04/20 21:00 09/15/20 21:10 Atorvastatin Calcium 40 Mg Tablet PO 40 mg BEDTIME TJ Administration Benzonatate 200 mg 09/05/20 21:00 09/16/20 08:56 Benzonatate 100 Mg Capsule PO Not Given TID TJ Bisacodyl 5 mg 09/04/20 21:00 09/16/20 08:56 Bisacodyl 5 Mg Tablet.Dr PO Not Given BID TJ Docusate Sodium 100 mg 09/15/20 16:20 09/16/20 08:56 Docusate Sodium 100 Mg Capsule PO Not Given BID [facility] Fluoxetine HCl 10 mg 09/05/20 09:00 09/16/20 08:56 Fluoxetine Hcl 10 Mg Capsule PO Not Given DAILY [facility] Gabapentin 600 mg 09/04/20 21:00 09/15/20 21:10 Gabapentin 600 Mg Tablet PO 600 mg BEDTIME TJ Administration Guaifenesin/Dextromethorphan 10 ml 09/05/20 17:19 09/09/20 09:41 Guaifenesin Dm 100/10/5 Ml 5 Ml Syrup PO 10 ml Q4H PRN Administration cough Vancomycin HCl 1,000 mg/ 270 mls @ 270 mls/hr 09/13/20 08:30 09/16/20 10:36 Sodium Chloride IV Infused Q12H [facility] Infusion Insulin Glargine 60 unit 09/10/20 09:00 09/16/20 08:56 Insulin Glargine,Hum.Rec.Anlog 100 Unit/Ml 10 Ml Vial SUBCUT Not Given DAILY [facility] Insulin Glargine 50 unit 09/09/20 21:00 09/15/20 21:10 Insulin Glargine,Hum.Rec.Anlog 100 Unit/Ml 10 Ml Vial SUBCUT 50 unit BEDTIME [facility] Administration Insulin Human Lispro 0 unit 09/05/20 07:30 09/16/20 11:58 Insulin Lispro 100 Unit/Ml 3 Ml Vial SUBCUT Not Given QIDACHS [facility] Protocol Lisinopril 5 mg 09/05/20 09:00 09/16/20 08:57 Lisinopril 5 Mg Tablet PO Not Given DAILY [facility] Protocol Ondansetron HCl 4 mg 09/05/20 06:55 Ondansetron Hcl 4 Mg/2 Ml Vial IVPUSH Q8H PRN Nausea and Vomiting Pharmacy Consult 1 each 09/04/20 14:11 Consult Rx Perform Med Rec MISCELLANE ONCE PRN Consult order Polyethylene Glycol 17 gm 09/07/20 18:30 09/16/20 08:57 Polyethylene Glycol 3350 17 Gm Powd.Pack PO Not Given DAILY [facility] Sodium Chloride 3 ml 09/05/20 08:00 09/16/20 08:56 0.9 % Sodium Chloride Flush 3 Ml Syringe IVFLUSH 3 ml QSHIFT TJ Administration Sodium Chloride 1 spray 09/09/20 20:21 09/09/20 21:18 Sodium Chloride 0.65 % Nasal 44 Ml Sprbtl NOSTRIL-B 1 spray Q1H PRN Administration Dry Nasal Passages Tramadol HCl 50 mg 09/12/20 11:39 09/16/20 01:12 Tramadol Hcl 50 Mg Tablet PO 50 mg Q6H PRN Administration Pain, Moderate (Pain Scale 4-6 Vitamin D 25 mcg 09/05/20 09:00 09/16/20 08:56 Cholecalciferol (Vitamin D3) 25 Mcg Tablet PO Not Given DAILY [facility] Time Spent With Patient Time: Total time spent is greater than 50% in coordination of care (as documented) at patient's floor/unit and/or counseling patient: Time with patient: 15 - 24 minutes
[2020-09-16 14:02] LABS: HIT-Patient Optical Density 0.065 OD UNITS (<OR= 0.300); Heparin Induced Plt Ab NEGATIVE (NEGATIVE)
[2020-09-16] MEDS: Benzonatate 100 MG CAPSULE 200 MG PO ×2 (14:02→21:09)
--- NOTE | 2020-09-16 15:50 | MHC.CLN ---
F/U PO INTAKE 100% DIET RX: 2200DM-APPROPRIATE FOLLOWING
[2020-09-16 16:58] LABS: Glucose, Whole Blood 224 mg/dL (60-115)
[2020-09-16] MEDS: Acetaminophen 325 MG TABLET 650 MG PO (17:40)
[2020-09-16 17:51] LABS: Glucose, Whole Blood 236 mg/dL (60-115)
--- NOTE | 2020-09-16 18:59 | PC.NURSE ---
173- pt spiked a temp of 102. 1736 Dr. Gatica notified and advised tylenol would be given. Dr. Gatica stated no new orders at that time. Pt was given tylenol at 1740. Temp recheck at around 1845 of 98.9.
[2020-09-16] MEDS: Gabapentin 600 MG TABLET PO (21:08)
[2020-09-16] MEDS: Docusate Sodium 100 MG CAPSULE PO (21:08)
[2020-09-16] MEDS: Atorvastatin Calcium 40 MG TABLET PO (21:08)
[2020-09-16] MEDS: bisacodyL 5 MG TABLET.DR PO (21:08)
[2020-09-16] MEDS: Insulin Lispro 100 UNIT/ML 3 ML VIAL SUBCUT (21:09)
[2020-09-16 21:10] LABS: Glucose, Whole Blood 283 mg/dL (60-115)
[2020-09-16] MEDS: Insulin Glargine,Hum.rec.anlog 100 UNIT/ML 10 ML VIAL 50 UNIT SUBCUT (21:10)
[2020-09-17] VITALS (22 sets, daily range): BP systolic 86–144; BP diastolic 40–78; PULSE 59–98; RESP 16–20; TEMP 36–37.2; O2SAT 93–99
[2020-09-17 06:54] LABS: Basophils Percent Auto 0.2 % (0-2); MANUAL DIFF FLAG SCAN; SCAN SMEAR FLAG 1
[2020-09-17 06:58] LABS: Eosinophils Absolute Auto 0.1 X10*3/uL (0.0-0.4); Eosinophils Percent Auto 0.5 % (0-4); Hematocrit 35.1 % (42-52); Hemoglobin 12.1 g/dl (14.0-18.0); Imm Gran Abs Auto 0.14 X10*3/uL (0.00-0.03); Imm Gran Pct Auto 1.1 % (0.0-0.4); Lymphocytes Absolute Auto 1.2 X10*3/uL (1.2-4.9); Lymphocytes Percent Auto 9.6 % (20-40); Mean Corpuscular HGB Conc 34.5 g/dl (31.0-36.0); Mean Corpuscular Hemoglobin 33.3 pg (27.0-33.0); Mean Corpuscular Volume 96.7 fL (80-98); Monocytes Absolute Auto 0.9 X10*3/uL (0.1-1.2); Monocytes Percent Auto 7.3 % (2-11); Neutrophils Absolute Auto 10.4 X10*3/uL (2.0-8.3); Neutrophils Percent Auto 81.3 % (45-73); Red Blood Count 3.63 X10*6/uL (4.60-5.80); Red Cell Distribution Width 11.9 % (11.0-16.0); White Blood Count 12.8 X10*3/uL (4.8-10.8)
[2020-09-17 07:01] LABS: INTERNATIONAL NORM RATIO 1.3 (0.9-1.1)
[2020-09-17 07:02] LABS: Anion Gap 15 (12-20); Blood Urea Nitrogen 25 mg/dL (9-16); Calcium 8.7 mg/dL (8.4-10.2); Carbon Dioxide 24 mmol/L (22-29); Chloride 101 mmol/L (96-108); Creatinine Clr Calc Pharmacy 116.5; Estimated Glomerular Filt Rate > 60; Glucose Random 197 mg/dL (60-115); Sodium 136 mmol/L (135-145)
[2020-09-17 07:17] LABS: PLT ABN DIST 1
[2020-09-17 07:48] LABS: Glucose, Whole Blood 172 mg/dL (60-115)
[2020-09-17 07:51] LABS: Platelet Count 24 X10*3/uL (160-400)
[2020-09-17 07:52] LABS: SLIDE REVIEW VERIFIED
[2020-09-17] MEDS: 0.9 % Sodium Chloride Flush 3 ML SYRINGE IVFLUSH ×3 (08:41→22:08)
[2020-09-17] MEDS: Docusate Sodium 100 MG CAPSULE PO ×2 (08:41→22:05)
[2020-09-17] MEDS: Insulin Glargine,Hum.rec.anlog 100 UNIT/ML 10 ML VIAL 15 UNIT SUBCUT (08:41)
[2020-09-17] MEDS: vancomycin HCL 1,000 MG in 0.9 % Sodium Chloride 250 ML 270 MG IV (08:41)
[2020-09-17] MEDS: Cholecalciferol (Vitamin D3) 25 MCG TABLET PO (08:41)
[2020-09-17] MEDS: bisacodyL 5 MG TABLET.DR PO ×2 (08:42→22:05)
[2020-09-17] MEDS: Benzonatate 100 MG CAPSULE 200 MG PO ×2 (08:42→22:04)
[2020-09-17] MEDS: FLUoxetine HCl 10 MG CAPSULE PO (08:42)
[2020-09-17 11:40] LABS: Glucose, Whole Blood 147 mg/dL (60-115)
--- NOTE | 2020-09-17 13:04 | MHC.CM.PN ---
nurse residential caregiver note ELECTRONIC MEDICAL RECORD REVIEWED, AND CASE DISCUSSED ON MULTIPLE DISCIPLINARY ROUNDS PATIENTS PLATELET COUNT WAS LOW SURGERY WAS HELD YESTERDAY AND PLATELETS WERE ORDERED TODAY,, PATIENT WENT TO SURGERY TODAY AT 12;30 DEBRIDEMENT VS TOE AMPUTATION CONTINUE TO HOLD,[employer] AND [employer] INTERN TO CONTINUE TO FOLLOW FOR ANY CHANGES IN DISCHARGE NEEDS
--- NOTE | 2020-09-17 13:07 | HO.PM.IMPN ---
Subjective Subjective Date of Service: 09/17/20 Interval History: The patient was seen and evaluated this morning Laying in bed, feels comfortable overall and pain under good control Denies any fever, chills or shortness of breath Patient will need further debridement at the surgical site this afternoon Platelets continues to drop the day No reported other overnight events. Systemic review: No fever, chills or weakness No chest pain, palpitation No shortness of breath or coughing No abdominal pain, nausea or vomiting but reported constipation No urinary symptoms No any rash or wounds Physical Exam Vital Signs: Vital Signs: Last Vital Signs Temp 97.7 F 09/17/20 12:07 Pulse 79 09/17/20 12:07 Resp 16 09/17/20 12:07 BP 114/60 09/17/20 12:07 Pulse Ox 94 09/17/20 12:07 Body Mass Index 37.2 Const: Other: Constitutional : Alert, oriented, not in distress Neck : Normal inspection, Supple Cardiovascular : RRR, S1 S2, no lower extremity edema Respiratory : Chest wall moving bilaterally, not in respiratory distress Gastrointestinal: soft, lax, Normal bowel sounds, Non tender Skin : Warm/Dry, foot in dressing, no erythema or drainage noted, Neurological : Alert & oriented x3, No focal deficit Objective Data Current Medications Generic Name Dose Route Start Last Admin Trade Name Freq PRN Reason Stop Dose Admin Acetaminophen 650 mg 09/05/20 06:55 09/16/20 17:40 Acetaminophen 325 Mg Tablet PO 650 mg Q6H PRN Administration Pain, Mild (Pain Scale 1-3) Artificial Tears 1 drop 09/07/20 18:26 09/07/20 21:47 Artificial Tears 15 Ml Drops EYE-BOTH 1 drop Q6H PRN Administration Dry Eyes Atorvastatin Calcium 40 mg 09/04/20 21:00 09/16/20 21:08 Atorvastatin Calcium 40 Mg Tablet PO 40 mg BEDTIME TJ Administration Benzonatate 200 mg 09/05/20 21:00 09/17/20 08:42 Benzonatate 100 Mg Capsule PO 200 mg TID TJ Administration Bisacodyl 5 mg 09/04/20 21:00 09/17/20 08:42 Bisacodyl 5 Mg Tablet.Dr PO 5 mg BID TJ Administration Dexamethasone 40 mg 09/17/20 18:00 Dexamethasone 4 Mg Tablet PO DAILY TJ Docusate Sodium 100 mg 09/15/20 16:20 09/17/20 08:41 Docusate Sodium 100 Mg Capsule PO 100 mg BID [facility] Administration Fluoxetine HCl 10 mg 09/05/20 09:00 09/17/20 08:42 Fluoxetine Hcl 10 Mg Capsule PO 10 mg DAILY [facility] Administration Gabapentin 600 mg 09/04/20 21:00 09/16/20 21:08 Gabapentin 600 Mg Tablet PO 600 mg BEDTIME [facility] Administration Guaifenesin/Dextromethorphan 10 ml 09/05/20 17:19 09/09/20 09:41 Guaifenesin Dm 100/10/5 Ml 5 Ml Syrup PO 10 ml Q4H PRN Administration cough Vancomycin HCl 1,000 mg/ 270 mls @ 270 mls/hr 09/13/20 08:30 09/17/20 09:51 Sodium Chloride IV Infused Q12H [facility] Infusion Insulin Glargine 60 unit 09/10/20 09:00 09/16/20 08:56 Insulin Glargine,Hum.Rec.Anlog 100 Unit/Ml 10 Ml Vial SUBCUT Not Given DAILY [facility] Insulin Glargine 50 unit 09/09/20 21:00 09/16/20 21:10 Insulin Glargine,Hum.Rec.Anlog 100 Unit/Ml 10 Ml Vial SUBCUT 50 unit BEDTIME [facility] Administration Insulin Human Lispro 0 unit 09/05/20 07:30 09/17/20 11:10 Insulin Lispro 100 Unit/Ml 3 Ml Vial SUBCUT Not Given QIDACHS [facility] Protocol Lisinopril 5 mg 09/05/20 09:00 09/17/20 08:42 Lisinopril 5 Mg Tablet PO 5 mg DAILY [facility] Administration Protocol Omeprazole 40 mg 09/17/20 16:30 Omeprazole 40 Mg Capsule.Dr PO BID@0630,1630 [facility] Ondansetron HCl 4 mg 09/05/20 06:55 Ondansetron Hcl 4 Mg/2 Ml Vial IVPUSH Q8H PRN Nausea and Vomiting Pharmacy Consult 1 each 09/04/20 14:11 Consult Rx Perform Med Rec MISCELLANE ONCE PRN Consult order Polyethylene Glycol 17 gm 09/07/20 18:30 09/17/20 08:42 Polyethylene Glycol 3350 17 Gm Powd.Pack PO Not Given DAILY [facility] Sodium Chloride 3 ml 09/05/20 08:00 09/17/20 08:41 0.9 % Sodium Chloride Flush 3 Ml Syringe IVFLUSH 3 ml QSHIFT TJ Administration Sodium Chloride 1 spray 09/09/20 20:21 09/09/20 21:18 Sodium Chloride 0.65 % Nasal 44 Ml Sprbtl NOSTRIL-B 1 spray Q1H PRN Administration Dry Nasal Passages Tramadol HCl 50 mg 09/12/20 11:39 09/16/20 01:12 Tramadol Hcl 50 Mg Tablet PO 50 mg Q6H PRN Administration Pain, Moderate (Pain Scale 4-6 Vitamin D 25 mcg 09/05/20 09:00 09/17/20 08:41 Cholecalciferol (Vitamin D3) 25 Mcg Tablet PO 25 mcg DAILY TJ Administration Labs CBC & Chem 7: 09/17/20 05:49 09/17/20 05:49 Microbiology Microbiology Results: Microbiology 09/10/20 19:15 Blood - Venous Blood Culture - Final No growth after 5 days. 09/10/20 19:15 Blood - Venous Blood Culture - Final No growth after 5 days. 09/04/20 15:00 Blood - Venous Blood Culture - Final Methicillin Res Staph Aureus 09/04/20 14:45 Blood - Venous Blood Culture - Final Methicillin Res Staph Aureus Assessment and Plan (1) Cellulitis: Status: Acute (2) Necrosis of toe: Status: Acute (3) Elevated erythrocyte sedimentation rate: Status: Acute (4) Thrombocytopenia: Status: Acute (5) MRSA bacteremia: Status: Acute Assessment and Plan: 60-year-old male with past medical history of diabetes as well as peripheral neuropathy who presents to the hospital with complaints of right toe wound, drainage Sepsis due to diabetic foot ulcer, resolved MRSA bacteremia Status post angiogram and angioplasty by vascular surgery Status post right toe amputation on MRI foot done shows no convincing evidence of osteomyelitis continue IV vancomycin day monitor Vanco trough repeat blood culture negative Will need PICC line and 6 weeks of IV antibiotic on discharge vascular surgery will reassess wound for further debridement this afternoon 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 Padgett, to start dexamethasone 40 mg for 4 days Monitor CBC Hyperglycemia Diabetes mellitus uncontrolled continue Lantus b.i.d., continue sliding scale insulin and diabetic diet follow blood sugar closely and adjust medication. Metformin on hold Continue Neurontin Constipation Secondary to decreased activity and pain medications To use MiraLax, Colace and senna Hypomagnesemia replaced and resolved Hypertension BP stable continue lisinopril constipation Continue MiraLax continue lactulose Hyperlipidemia statin DVT prophylaxis: SCDs, heparin stopped for thrombocytopenia
--- NOTE | 2020-09-17 16:24 | OP_ITS ---
SURGEON: Cameron Figueroa MD INDICATIONS: Ramy is a 60-year-old diabetic gentleman with a nonhealing great toe amputation site. Concern is that there was an exposed metatarsal head. He now presents for operative intervention. Risks, benefits, and complications were discussed in detail with the patient. The patient understood and consented. PREOPERATIVE DIAGNOSIS: POSTOPERATIVE DIAGNOSIS: PROCEDURE PERFORMED: Right great toe ray amputation. ESTIMATED BLOOD LOSS: Minimal. COMPLICATIONS: ANESTHESIA: Local with monitored sedation. ASSISTANTS: SPECIMENS: One. PREPROCEDURE DIAGNOSIS: Nonhealing right great toe. POSTPROCEDURE DIAGNOSIS: Nonhealing right great toe. WHAT WAS DONE: Patient was taken to the operating room prior to which a time-out was called for patient identification and site verification. Right foot was prepped and draped in a standard surgical fashion. The prior incision site sutures were removed. Incision was opened up and we made a dorsum incision right over the metatarsal head, carrying further back and we then freed up around the bone using a Bolton elevator. Power saw was used to transect across this metatarsal head and this was then resected and passed off the table as specimen. The residual metatarsal bone was filed down. Adequate hemostasis was achieved. Then, we reapproximated the deep layer with a 2-0 Polysorb and finally the skin was closed with a 2-0 nylon in a mattress fashion. Xeroform and sterile dressing were applied. At the end of the case, sponge, needle, and instrument counts were correct. The patient tolerated the procedure well, returned to Recovery with stable vitals. DRAINS: None. MD TIM Trivedi/TAMARL / [id number]
[2020-09-17] MEDS: Omeprazole 40 MG CAPSULE.DR PO (16:44)
[2020-09-17 16:49] LABS: Glucose, Whole Blood 115 mg/dL (60-115)
[2020-09-17] MEDS: dexAMETHasone 4 MG TABLET 40 MG PO (18:03)
[2020-09-17] MEDS: Acetaminophen 325 MG TABLET 650 MG PO (19:34)
[2020-09-17 19:53] LABS: Vancomycin Trough 15.9 mcg/mL (10.0-20.0)
[2020-09-17] MEDS: vancomycin HCL 1,000 MG in 0.9 % Sodium Chloride 250 ML 250 MG IV (20:07)
[2020-09-17 21:17] LABS: Glucose, Whole Blood 205 mg/dL (60-115)
[2020-09-17] MEDS: Gabapentin 600 MG TABLET PO (22:05)
[2020-09-17] MEDS: Atorvastatin Calcium 40 MG TABLET PO (22:05)
[2020-09-17] MEDS: Insulin Glargine,Hum.rec.anlog 100 UNIT/ML 10 ML VIAL 50 UNIT SUBCUT (22:06)
[2020-09-17] MEDS: Insulin Lispro 100 UNIT/ML 3 ML VIAL SUBCUT (22:07)
[2020-09-18 03:31] VITALS: BP 137/67; PULSE 66; RESP 18; TEMP 36.5; O2SAT 96
[2020-09-18] MEDS: Omeprazole 40 MG CAPSULE.DR PO ×2 (05:47→16:47)
[2020-09-18 06:52] LABS: Hematocrit 34.7 % (42-52); Hemoglobin 11.6 g/dl (14.0-18.0); Mean Corpuscular HGB Conc 33.4 g/dl (31.0-36.0); Mean Corpuscular Volume 95.9 fL (80-98); Red Blood Count 3.62 X10*6/uL (4.60-5.80); Red Cell Distribution Width 11.7 % (11.0-16.0); White Blood Count 9.3 X10*3/uL (4.8-10.8)
[2020-09-18 06:53] LABS: Platelet Count 28 X10*3/uL (160-400)
[2020-09-18 07:18] LABS: Anion Gap 15 (12-20); Blood Urea Nitrogen 24 mg/dL (9-16); Calcium 8.3 mg/dL (8.4-10.2); Carbon Dioxide 24 mmol/L (22-29); Chloride 100 mmol/L (96-108); Creatinine Clr Calc Pharmacy 110.7; Estimated Glomerular Filt Rate > 60; Glucose Random 290 mg/dL (60-115); Potassium 4.2 mmol/l (3.3-5.1); Sodium 135 mmol/L (135-145)
[2020-09-18 07:36] LABS: Glucose, Whole Blood 283 mg/dL (60-115)
[2020-09-18 08:00] VITALS: BP 163/65; PULSE 68; RESP 16; TEMP 36.6; O2SAT 90
[2020-09-18] MEDS: vancomycin HCL 1,000 MG in 0.9 % Sodium Chloride 250 ML 250 MG IV ×2 (08:20→21:34)
[2020-09-18] MEDS: Insulin Lispro 100 UNIT/ML 3 ML VIAL SUBCUT ×5 (08:21→20:53)
[2020-09-18] MEDS: Insulin Glargine,Hum.rec.anlog 100 UNIT/ML 10 ML VIAL 60 UNIT SUBCUT ×2 (08:22→20:52)
[2020-09-18] MEDS: polyethylene glycoL 3350 17 GM POWD.PACK PO (08:22)
[2020-09-18] MEDS: Benzonatate 100 MG CAPSULE 200 MG PO ×3 (08:23→20:51)
[2020-09-18] MEDS: dexAMETHasone 4 MG TABLET 40 MG PO (08:23)
[2020-09-18] MEDS: bisacodyL 5 MG TABLET.DR PO ×2 (08:23→20:51)
[2020-09-18] MEDS: Docusate Sodium 100 MG CAPSULE PO ×2 (08:23→20:51)
[2020-09-18] MEDS: FLUoxetine HCl 10 MG CAPSULE PO (08:23)
[2020-09-18] MEDS: Cholecalciferol (Vitamin D3) 25 MCG TABLET PO (08:23)
[2020-09-18] MEDS: 0.9 % Sodium Chloride Flush 3 ML SYRINGE IVFLUSH ×4 (08:24→21:39)
--- NOTE | 2020-09-18 08:50 | HO.POSTANES ---
Post Anesthesia Evaluation Post Anesthesia Evaluation Vital Signs: Vital Signs Temp Pulse Resp BP Pulse Ox 09/18/20 08:00 97.8 F 68 16 163/65 H 90 L 09/18/20 03:31 97.7 F 66 18 137/67 96 09/17/20 23:45 97.4 F 70 18 143/65 H 94 Anesthesia: Monitored Mental Status: Awake Pain Control: Satisfactory Nausea/Vomiting: None Hydration: Adequate Anesthesia-Related Issues: No Anes. Related Issues (Patient refuses to come out from under the sheets but states no anesthetic problems.)
--- NOTE | 2020-09-18 11:29 | HO.VASCPN ---
Subjective Subjective Date of Service: 09/18/20 Patient reports: no new complaints and feels better Interval history: Postop day 1 status post right great toe ray amputation. No interval issues. Doing fairly well. Pain well controlled. Physical Exam Vital Signs: Vital Signs: Last Vital Signs Temp 97.8 F 09/18/20 08:00 Pulse 68 09/18/20 08:00 Resp 16 09/18/20 08:00 BP 163/65 H 09/18/20 08:00 Pulse Ox 90 L 09/18/20 08:00 Body Mass Index 37.2 Const: General: cooperative, healthy appearing and no acute distress Orientation/consciousness: oriented to person, oriented to place and oriented to time HENMT: Head: Yes normal to inspection Neck: Carotids: no bruits Chest: Chest palpation & inspection: normal inspection of the chest Resp: Effort & Inspection: normal respiratory effort and able to speak in complete sentences Auscultation: clear to auscultation bilaterally Cardio: Rate: regular rate Heart sounds: S1 normal heart sound present and S2 normal heart sound present GI: Inspection: Yes normal to inspection Skin: General skin exam: no rashes or lesions noted Wounds: amputation site (Dressing clean dry and intact) Neuro: General: oriented to person, oriented to place, oriented to time and CN's II-XI intact bilaterally Extrem: General: Yes normal to inspection, Yes full ROM and Yes no clubbing, cyanosis or edema Psych: Appearance: grossly normal and well kempt Speech and movement: Normal speech and movement present Affect: normal affect Progress Note: A&P Assessment and plan (1) Diabetic foot ulcer: Problem details: MRSA bacteremia Due to foot wound Status: Acute Assessment and Plan: Status post ray amputation. Dressing is intact. Plan for dressing change for tomorrow. If stable would be stable from my perspective for discharge. Discussed with patient in detail. He is eager to leave, and in agreement. Thank you for allowing us to assist in his care. Fall Risk Details Current Medications: Current Medications Generic Name Dose Route Start Last Admin Trade Name Freq PRN Reason Stop Dose Admin Acetaminophen 650 mg 09/05/20 06:55 09/17/20 19:34 Acetaminophen 325 Mg Tablet PO 650 mg Q6H PRN Administration Pain, Mild (Pain Scale 1-3) Artificial Tears 1 drop 09/07/20 18:26 09/07/20 21:47 Artificial Tears 15 Ml Drops EYE-BOTH 1 drop Q6H PRN Administration Dry Eyes Atorvastatin Calcium 40 mg 09/04/20 21:00 09/17/20 22:05 Atorvastatin Calcium 40 Mg Tablet PO 40 mg BEDTIME TJ Administration Benzonatate 200 mg 09/05/20 21:00 09/18/20 08:23 Benzonatate 100 Mg Capsule PO 200 mg TID TJ Administration Bisacodyl 5 mg 09/04/20 21:00 09/18/20 08:23 Bisacodyl 5 Mg Tablet.Dr PO 5 mg BID TJ Administration Dexamethasone 40 mg 09/17/20 18:00 09/18/20 08:23 Dexamethasone 4 Mg Tablet PO 40 mg DAILY TJ Administration Docusate Sodium 100 mg 09/15/20 16:20 09/18/20 08:23 Docusate Sodium 100 Mg Capsule PO 100 mg BID TJ Administration Fluoxetine HCl 10 mg 09/05/20 09:00 09/18/20 08:23 Fluoxetine Hcl 10 Mg Capsule PO 10 mg DAILY TJ Administration Gabapentin 600 mg 09/04/20 21:00 09/17/20 22:05 Gabapentin 600 Mg Tablet PO 600 mg BEDTIME TJ Administration Guaifenesin/Dextromethorphan 10 ml 09/05/20 17:19 09/09/20 09:41 Guaifenesin Dm 100/10/5 Ml 5 Ml Syrup PO 10 ml Q4H PRN Administration cough Vancomycin HCl 1,000 mg/ 270 mls @ 270 mls/hr 09/13/20 08:30 09/18/20 10:10 Sodium Chloride IV Infused Q12H [facility] Infusion Insulin Glargine 60 unit 09/10/20 09:00 09/18/20 08:22 Insulin Glargine,Hum.Rec.Anlog 100 Unit/Ml 10 Ml Vial SUBCUT 60 unit DAILY TJ Administration Insulin Glargine 50 unit 09/09/20 21:00 09/17/20 22:06 Insulin Glargine,Hum.Rec.Anlog 100 Unit/Ml 10 Ml Vial SUBCUT 50 unit BEDTIME TJ Administration Insulin Human Lispro 0 unit 09/05/20 07:30 09/18/20 08:21 Insulin Lispro 100 Unit/Ml 3 Ml Vial SUBCUT 6 unit QIDACHS TJ Administration Protocol Lisinopril 5 mg 09/05/20 09:00 09/18/20 08:23 Lisinopril 5 Mg Tablet PO 5 mg DAILY TJ Administration Protocol Omeprazole 40 mg 09/17/20 16:30 09/18/20 05:47 Omeprazole 40 Mg Capsule. PO 40 mg BID@4507,3380 TJ Administration Ondansetron HCl 4 mg 09/05/20 06:55 Ondansetron Hcl 4 Mg/2 Ml Vial IVPUSH Q8H PRN Nausea and Vomiting Pharmacy Consult 1 each 09/04/20 14:11 Consult Rx Perform Med Rec MISCELLANE ONCE PRN Consult order Polyethylene Glycol 17 gm 09/07/20 18:30 09/18/20 08:22 Polyethylene Glycol 3350 17 Gm Powd.Pack PO 17 gm DAILY TJ Administration Sodium Chloride 3 ml 09/05/20 08:00 09/18/20 08:24 0.9 % Sodium Chloride Flush 3 Ml Syringe IVFLUSH 3 ml QSHIFT TJ Administration Sodium Chloride 1 spray 09/09/20 20:21 09/09/20 21:18 Sodium Chloride 0.65 % Nasal 44 Ml Sprbtl NOSTRIL-B 1 spray Q1H PRN Administration Dry Nasal Passages Tramadol HCl 50 mg 09/12/20 11:39 09/16/20 01:12 Tramadol Hcl 50 Mg Tablet PO 50 mg Q6H PRN Administration Pain, Moderate (Pain Scale 4-6 Vitamin D 25 mcg 09/05/20 09:00 09/18/20 08:23 Cholecalciferol (Vitamin D3) 25 Mcg Tablet PO 25 mcg DAILY TJ Administration Time Spent With Patient Time: Total time spent is greater than 50% in coordination of care (as documented) at patient's floor/unit and/or counseling patient: Time with patient: 15 - 24 minutes
[2020-09-18 11:58] VITALS: BP 136/73; PULSE 92; RESP 18; TEMP 36; O2SAT 96
[2020-09-18 12:33] LABS: Glucose, Whole Blood 344 mg/dL (60-115)
--- NOTE | 2020-09-18 13:08 | P.PNIM_ITS ---
Subjective Subjective Date of Service: 09/18/20 Interval History: The patient was seen and evaluated this morning Laying in bed, feels comfortable overall , complaining of pain at the side of surgery but control with pain medications Denies any fever, chills or shortness of breath Platelets of 28 after 2 units transfusion No reported bleeding No reported other overnight events. Systemic review: No fever, chills or weakness No chest pain, palpitation No shortness of breath or coughing No abdominal pain, nausea or vomiting but reported constipation No urinary symptoms No any rash or wounds Physical Exam Vital Signs: Vital Signs: Last Vital Signs Temp 96.8 F 09/18/20 11:58 Pulse 92 09/18/20 11:58 Resp 18 09/18/20 11:58 BP 136/73 09/18/20 11:58 Pulse Ox 96 09/18/20 11:58 Body Mass Index 37.2 Const: Other: Constitutional : Alert, oriented, not in distress Neck : Normal inspection, Supple Cardiovascular : RRR, S1 S2, no lower extremity edema Respiratory : Chest wall moving bilaterally, not in respiratory distress Gastrointestinal: soft, lax, Normal bowel sounds, Non tender Skin : Warm/Dry, foot in dressing, no erythema or drainage noted, Neurological : Alert & oriented x3, No focal deficit Objective Data Current Medications Generic Name Dose Route Start Last Admin Trade Name Freq PRN Reason Stop Dose Admin Acetaminophen 650 mg 09/05/20 06:55 09/17/20 19:34 Acetaminophen 325 Mg Tablet PO 650 mg Q6H PRN Administration Pain, Mild (Pain Scale 1-3) Artificial Tears 1 drop 09/07/20 18:26 09/07/20 21:47 Artificial Tears 15 Ml Drops EYE-BOTH 1 drop Q6H PRN Administration Dry Eyes Atorvastatin Calcium 40 mg 09/04/20 21:00 09/17/20 22:05 Atorvastatin Calcium 40 Mg Tablet PO 40 mg BEDTIME TJ Administration Benzonatate 200 mg 09/05/20 21:00 09/18/20 08:23 Benzonatate 100 Mg Capsule PO 200 mg TID TJ Administration Bisacodyl 5 mg 09/04/20 21:00 09/18/20 08:23 Bisacodyl 5 Mg Tablet.Dr PO 5 mg BID TJ Administration Dexamethasone 40 mg 09/17/20 18:00 09/18/20 08:23 Dexamethasone 4 Mg Tablet PO 40 mg DAILY TJ Administration Docusate Sodium 100 mg 09/15/20 16:20 09/18/20 08:23 Docusate Sodium 100 Mg Capsule PO 100 mg BID TJ Administration Fluoxetine HCl 10 mg 09/05/20 09:00 09/18/20 08:23 Fluoxetine Hcl 10 Mg Capsule PO 10 mg DAILY TJ Administration Gabapentin 600 mg 09/04/20 21:00 09/17/20 22:05 Gabapentin 600 Mg Tablet PO 600 mg BEDTIME TJ Administration Guaifenesin/Dextromethorphan 10 ml 09/05/20 17:19 09/09/20 09:41 Guaifenesin Dm 100/10/5 Ml 5 Ml Syrup PO 10 ml Q4H PRN Administration cough Vancomycin HCl 1,000 mg/ 270 mls @ 270 mls/hr 09/13/20 08:30 09/18/20 10:10 Sodium Chloride IV Infused Q12H [facility]J Infusion Insulin Glargine 60 unit 09/10/20 09:00 09/18/20 08:22 Insulin Glargine,Hum.Rec.Anlog 100 Unit/Ml 10 Ml Vial SUBCUT 60 unit DAILY TJ Administration Insulin Glargine 50 unit 09/09/20 21:00 09/17/20 22:06 Insulin Glargine,Hum.Rec.Anlog 100 Unit/Ml 10 Ml Vial SUBCUT 50 unit BEDTIME TJ Administration Insulin Human Lispro 0 unit 09/05/20 07:30 09/18/20 12:02 Insulin Lispro 100 Unit/Ml 3 Ml Vial SUBCUT 8 unit QIDACHS [facility] Administration Protocol Lisinopril 5 mg 09/05/20 09:00 09/18/20 08:23 Lisinopril 5 Mg Tablet PO 5 mg DAILY [facility] Administration Protocol Omeprazole 40 mg 09/17/20 16:30 09/18/20 05:47 Omeprazole 40 Mg Capsule. PO 40 mg BID@0630,1630 [facility] Administration Ondansetron HCl 4 mg 09/05/20 06:55 Ondansetron Hcl 4 Mg/2 Ml Vial IVPUSH Q8H PRN Nausea and Vomiting Pharmacy Consult 1 each 09/04/20 14:11 Consult Rx Perform Med Rec MISCELLANE ONCE PRN Consult order Polyethylene Glycol 17 gm 09/07/20 18:30 09/18/20 08:22 Polyethylene Glycol 3350 17 Gm Powd.Pack PO 17 gm DAILY TJ Administration Sodium Chloride 3 ml 09/05/20 08:00 09/18/20 08:24 0.9 % Sodium Chloride Flush 3 Ml Syringe IVFLUSH 3 ml QSHIFT TJ Administration Sodium Chloride 1 spray 09/09/20 20:21 09/09/20 21:18 Sodium Chloride 0.65 % Nasal 44 Ml Sprbtl NOSTRIL-B 1 spray Q1H PRN Administration Dry Nasal Passages Tramadol HCl 50 mg 09/12/20 11:39 09/16/20 01:12 Tramadol Hcl 50 Mg Tablet PO 50 mg Q6H PRN Administration Pain, Moderate (Pain Scale 4-6 Vitamin D 25 mcg 09/05/20 09:00 09/18/20 08:23 Cholecalciferol (Vitamin D3) 25 Mcg Tablet PO 25 mcg DAILY TJ Administration Labs CBC & Chem 7: 09/18/20 06:02 09/18/20 06:02 Microbiology Microbiology Results: Microbiology 09/10/20 19:15 Blood - Venous Blood Culture - Final No growth after 5 days. 09/10/20 19:15 Blood - Venous Blood Culture - Final No growth after 5 days. 09/04/20 15:00 Blood - Venous Blood Culture - Final Methicillin Res Staph Aureus 09/04/20 14:45 Blood - Venous Blood Culture - Final Methicillin Res Staph Aureus Assessment and Plan (1) Cellulitis: Status: Acute (2) Necrosis of toe: Status: Acute (3) Elevated erythrocyte sedimentation rate: Status: Acute (4) Thrombocytopenia: Status: Acute (5) MRSA bacteremia: Status: Acute Assessment and Plan: 60-year-old male with past medical history of diabetes as well as peripheral neuropathy who presents to the hospital with complaints of right toe wound, drainage Sepsis due to diabetic foot ulcer, resolved MRSA bacteremia Status post angiogram and angioplasty by vascular surgery Status post right toe amputation on , transmetatarsal amputation on September 18 MRI foot done shows no convincing evidence of osteomyelitis continue IV vancomycin day monitor Vanco trough repeat blood culture negative Plan to place PICC line today Total of 6 weeks of IV antibiotics vascular surgery will reassess wound for further debridement this afternoon 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 Platelet of 28 after 2 units PLT transfusion No bleeding reported Continue to hold heparin, aspirin and Plavix Negative [place] results Elevated IgA level Discussed with Dr. Padgett, Treat as ITP Continue Dexamethasone 40 mg D2/4 Monitor CBC Hyperglycemia Diabetes mellitus uncontrolled Increase Lantus to 66 in morning and 60 at bedtime while on dexamethasone continue sliding scale insulin and diabetic diet Metformin on hold Continue Neurontin Constipation Secondary to decreased activity and pain medications Continue MiraLax, Colace and senna To add MOM Hypomagnesemia replaced and resolved Hypertension BP stable continue lisinopril constipation Continue MiraLax continue lactulose Hyperlipidemia statin DVT prophylaxis: SCDs, heparin stopped for thrombocytopenia
[2020-09-18] MEDS: Milk of Magnesia 30 ML ORAL.SUSP PO (13:58)
[2020-09-18 16:00] VITALS: BP 152/73; PULSE 69; RESP 19; TEMP 36.7; O2SAT 94
[2020-09-18 16:43] LABS: Glucose, Whole Blood 384 mg/dL (60-115)
--- NOTE | 2020-09-18 19:36 | PC.NURSE ---
Pts 1630 blood sugar was 384, Dr. Gatica made aware and order obtained to give 5 units of lispro in addition to the scheduled 10 units per the sliding scale. Pt had a total of 15 units of lispro insulin. Pt had so s/s of hyperglycemia at the time.
[2020-09-18 19:53] VITALS: BP 145/71; PULSE 89; RESP 20; TEMP 36.3; O2SAT 97
[2020-09-18 20:22] LABS: Glucose, Whole Blood 348 mg/dL (60-115)
[2020-09-18] MEDS: Atorvastatin Calcium 40 MG TABLET PO (20:51)
[2020-09-18] MEDS: Gabapentin 600 MG TABLET PO (20:51)
[2020-09-18] MEDS: Acetaminophen 325 MG TABLET 650 MG PO (21:56)
[2020-09-18 23:37] VITALS: BP 159/70; PULSE 77; RESP 18; TEMP 36.5; O2SAT 93
[2020-09-19 03:42] VITALS: BP 108/63; PULSE 61; RESP 18; TEMP 36.4; O2SAT 96
[2020-09-19 06:40] LABS: Hematocrit 31.8 % (42-52); Mean Corpuscular HGB Conc 34.6 g/dl (31.0-36.0); Mean Corpuscular Hemoglobin 32.5 pg (27.0-33.0); Mean Corpuscular Volume 94.1 fL (80-98); Red Blood Count 3.38 X10*6/uL (4.60-5.80); Red Cell Distribution Width 11.6 % (11.0-16.0); White Blood Count 14.8 X10*3/uL (4.8-10.8)
[2020-09-19] MEDS: Omeprazole 40 MG CAPSULE.DR PO ×2 (06:48→16:47)
[2020-09-19 06:59] LABS: Vancomycin Trough 12.7 mcg/mL (10.0-20.0)
[2020-09-19 07:07] LABS: Anion Gap 16 (12-20); Blood Urea Nitrogen 30 mg/dL (9-16); Calcium 8.4 mg/dL (8.4-10.2); Carbon Dioxide 22 mmol/L (22-29); Chloride 102 mmol/L (96-108); Creatinine Clr Calc Pharmacy 111.8; Estimated Glomerular Filt Rate > 60; Glucose Random 296 mg/dL (60-115); Sodium 136 mmol/L (135-145)
[2020-09-19 07:22] LABS: PLT ABN DIST 1; Platelet Count 26 X10*3/uL (160-400)
[2020-09-19 07:32] VITALS: BP 136/72; PULSE 63; RESP 17; TEMP 37.1; O2SAT 96
[2020-09-19] MEDS: vancomycin HCL 1,000 MG in 0.9 % Sodium Chloride 250 ML 250 MG IV ×2 (07:44→21:39)
[2020-09-19] MEDS: Insulin Lispro 100 UNIT/ML 3 ML VIAL SUBCUT ×6 (07:53→22:58)
[2020-09-19] MEDS: polyethylene glycoL 3350 17 GM POWD.PACK PO (07:54)
[2020-09-19] MEDS: Benzonatate 100 MG CAPSULE 200 MG PO ×2 (07:55→20:35)
[2020-09-19] MEDS: Docusate Sodium 100 MG CAPSULE PO ×2 (07:55→20:35)
[2020-09-19] MEDS: dexAMETHasone 4 MG TABLET 40 MG PO (07:55)
[2020-09-19] MEDS: FLUoxetine HCl 10 MG CAPSULE PO (07:55)
[2020-09-19] MEDS: bisacodyL 5 MG TABLET.DR PO ×2 (07:55→20:36)
[2020-09-19] MEDS: Cholecalciferol (Vitamin D3) 25 MCG TABLET PO (07:55)
[2020-09-19 08:20] LABS: Glucose, Whole Blood 281 mg/dL (60-115)
[2020-09-19] MEDS: Insulin Glargine,Hum.rec.anlog 100 UNIT/ML 10 ML VIAL 70 UNIT SUBCUT (09:15)
--- NOTE | 2020-09-19 10:17 | HO.VASCPN ---
Subjective Subjective Date of Service: 09/19/20 Patient reports: no new complaints and feels better Interval history: Patient is postop day 2 status post right great toe ray amputation. In general appears to be doing relatively well. No significant complaints. He is eager to be discharged. He is now for dressing change for amputation. Physical Exam Vital Signs: Vital Signs: Last Vital Signs Temp 98.7 F 09/19/20 07:32 Pulse 63 09/19/20 07:32 Resp 17 09/19/20 07:32 BP 136/72 09/19/20 07:32 Pulse Ox 96 09/19/20 07:32 Body Mass Index 37.2 Const: General: cooperative, healthy appearing and no acute distress Orientation/consciousness: oriented to person, oriented to place and oriented to time HENMT: Head: Yes normal to inspection Neck: Carotids: no bruits Chest: Chest palpation & inspection: normal inspection of the chest Resp: Effort & Inspection: normal respiratory effort and able to speak in complete sentences Auscultation: clear to auscultation bilaterally Cardio: Rate: regular rate Heart sounds: S1 normal heart sound present and S2 normal heart sound present GI: Inspection: Yes normal to inspection Skin: General skin exam: no rashes or lesions noted Wounds: amputation site (Significantly improved closure of amputation site. Suture and wounds intac) Neuro: General: oriented to person, oriented to place, oriented to time and CN's II-XI intact bilaterally Extrem: General: Yes normal to inspection, Yes full ROM and Yes no clubbing, cyanosis or edema Psych: Appearance: grossly normal and well kempt Speech and movement: Normal speech and movement present Affect: normal affect Progress Note: A&P Assessment and plan (1) Diabetic foot ulcer: Problem details: MRSA bacteremia Due to foot wound Status: Acute Assessment and Plan: Patient is status post right great toe amp. He is doing extremely well. He is stable from my perspective for discharge. Would require dressing changes of: xeroform, 4x4, and Kerlix wrap to be changed daily if he is in a facility. He can follow up with us as an outpatient in approximately 2 weeks time. Thank you for allowing us to assist in his care. Fall Risk Details Current Medications: Current Medications Generic Name Dose Route Start Last Admin Trade Name Freq PRN Reason Stop Dose Admin Acetaminophen 650 mg 09/05/20 06:55 09/18/20 21:56 Acetaminophen 325 Mg Tablet PO 650 mg Q6H PRN Administration Pain, Mild (Pain Scale 1-3) Artificial Tears 1 drop 09/07/20 18:26 09/07/20 21:47 Artificial Tears 15 Ml Drops EYE-BOTH 1 drop Q6H PRN Administration Dry Eyes Atorvastatin Calcium 40 mg 09/04/20 21:00 09/18/20 20:51 Atorvastatin Calcium 40 Mg Tablet PO 40 mg BEDTIME TJ Administration Benzonatate 200 mg 09/05/20 21:00 09/19/20 07:55 Benzonatate 100 Mg Capsule PO 200 mg TID TJ Administration Bisacodyl 5 mg 09/04/20 21:00 09/19/20 07:55 Bisacodyl 5 Mg Tablet.Dr PO 5 mg BID TJ Administration Dexamethasone 40 mg 09/17/20 18:00 09/19/20 07:55 Dexamethasone 4 Mg Tablet PO 40 mg DAILY TJ Administration Docusate Sodium 100 mg 09/15/20 16:20 09/19/20 07:55 Docusate Sodium 100 Mg Capsule PO 100 mg BID TJ Administration Fluoxetine HCl 10 mg 09/05/20 09:00 09/19/20 07:55 Fluoxetine Hcl 10 Mg Capsule PO 10 mg DAILY TJ Administration Gabapentin 600 mg 09/04/20 21:00 09/18/20 20:51 Gabapentin 600 Mg Tablet PO 600 mg BEDTIME TJ Administration Guaifenesin/Dextromethorphan 10 ml 09/05/20 17:19 09/09/20 09:41 Guaifenesin Dm 100/10/5 Ml 5 Ml Syrup PO 10 ml Q4H PRN Administration cough Vancomycin HCl 1,000 mg/ 270 mls @ 270 mls/hr 09/13/20 08:30 09/19/20 09:33 Sodium Chloride IV Infused Q12H [facility] Infusion Insulin Glargine 70 unit 09/19/20 09:00 09/19/20 09:15 Insulin Glargine,Hum.Rec.Anlog 100 Unit/Ml 10 Ml Vial SUBCUT 70 unit DAILY TJ Administration Insulin Glargine 65 unit 09/19/20 21:00 Insulin Glargine,Hum.Rec.Anlog 100 Unit/Ml 10 Ml Vial SUBCUT BEDTIME [facility] Insulin Human Lispro 0 unit 09/05/20 07:30 09/19/20 07:53 Insulin Lispro 100 Unit/Ml 3 Ml Vial SUBCUT 6 unit QIDACHS TJ Administration Protocol Lisinopril 5 mg 09/05/20 09:00 09/19/20 09:15 Lisinopril 5 Mg Tablet PO 5 mg DAILY TJ Administration Protocol Magnesium Hydroxide 30 ml 09/19/20 09:31 Milk Of Magnesia 30 Ml Oral.Susp PO TID PRN Constipation Omeprazole 40 mg 09/17/20 16:30 09/19/20 06:48 Omeprazole 40 Mg Capsule.Dr PO 40 mg BID@0630,3210 TJ Administration Ondansetron HCl 4 mg 09/05/20 06:55 Ondansetron Hcl 4 Mg/2 Ml Vial IVPUSH Q8H PRN Nausea and Vomiting Pharmacy Consult 1 each 09/04/20 14:11 Consult Rx Perform Med Rec MISCELLANE ONCE PRN Consult order Polyethylene Glycol 17 gm 09/07/20 18:30 09/19/20 07:54 Polyethylene Glycol 3350 17 Gm Powd.Pack PO 17 gm DAILY TJ Administration Sodium Chloride 3 ml 09/05/20 08:00 09/18/20 21:39 0.9 % Sodium Chloride Flush 3 Ml Syringe IVFLUSH 3 ml QSHIFT TJ Administration Sodium Chloride 1 spray 09/09/20 20:21 09/09/20 21:18 Sodium Chloride 0.65 % Nasal 44 Ml Sprbtl NOSTRIL-B 1 spray Q1H PRN Administration Dry Nasal Passages Tramadol HCl 50 mg 09/12/20 11:39 09/16/20 01:12 Tramadol Hcl 50 Mg Tablet PO 50 mg Q6H PRN Administration Pain, Moderate (Pain Scale 4-6 Vitamin D 25 mcg 09/05/20 09:00 09/19/20 07:55 Cholecalciferol (Vitamin D3) 25 Mcg Tablet PO 25 mcg DAILY TJ Administration Time Spent With Patient Time: Total time spent is greater than 50% in coordination of care (as documented) at patient's floor/unit and/or counseling patient: Time with patient: 15 - 24 minutes
--- NOTE | 2020-09-19 10:54 | P.CDIC_ITS ---
CDI Concurrent Query Service Date: 09/19/20 Documentation Clarification: Please clarify if you are treating a proba ble/suspected/likely or confirmed: Sepsis (MRSA) due to Diabetic foot ulcer with cellulitis Sepsis (MRSA) due to Diabetic foot ulcer w/o cellulitis Please specify if known or other Provider Response: Other Other Diagnosis: MRSA bacteremia secondary to diabetic foot infection PLEASE DO NOT DELETE/MODIFY EXISTING CONTENT Additional information is needed in order to code to the highest accuracy and appropriate Severity of Illness (SOI). Please clarify the information noted below in your progress notes and discharge summary. Risk Factors/Clinical Indicators/Treatments PN: Assessment/plan: Cellulitis, acute Sepsis due to diabetic foot ulcer IV Vancomycin MRSA bacteremia malodorous drainage, green pus, toe - dark necrosis no evidence of osteomyelitis CDS: Sarah Baird CCS, CDIS Contact Number: [phone] Please Review the information above and exercise your independent professional judgment in responding to the query. If you concur, pleas document in the PROGRESS NOTES and DISCHARGE SUMMARY. If you do not agree with the query, please document in the query above. THIS QUERY IS PART OF THE PERMANENT MEDICAL RECORD
--- NOTE | 2020-09-19 11:06 | HO.PICC ---
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 Following completion of [place] Protocol the skin and soft tissues were anesthetized with 1% Lidocaine plain. Using ultrasound guidance, BASILIC vein access was obtained IN SINGLE ATTEMPT. Over an 0.018 wire through peel-away sheath, a 4 COLOMBIAN, SINGLE LUMEN, PASV PICC line was positioned. Catheter length is 49 CM internal length, 0 CM (AT HUB) external length, for a total trimmed length of 49 CM. The procedure was performed in SPECIAL PROCEDURES ROOM 7. Tip verification was performed by Gabriel Aceves with [place] 3CG. Tip located in SVC. Ultrasound was used to document vein patency and for needle entry. A formal ultrasound picture and cardiac rhythm strip was recorded. [employer] Operator has released the line for use and it is currently dressed with a StatLock, Tegaderm, and CHG disc. Verification has been performed for blood return and line patency. Arm Circumference: 43 CM Equipment: [place] POWER PICC SOLO Catheter Type: 4 COLOMBIAN, SINGLE LUMEN, PASV Lot #: [id number]
[2020-09-19 11:22] LABS: Glucose, Whole Blood 344 mg/dL (60-115)
--- NOTE | 2020-09-19 11:30 | HO.PM.IMPN ---
Subjective Subjective Date of Service: 09/19/20 Interval History: The patient was seen and evaluated this morning Laying in bed, feels comfortable overall , pain under good control Denies any fever, chills or shortness of breath Platelets of 2 the6 the today No reported bleeding No reported other overnight events. Systemic review: No fever, chills or weakness No chest pain, palpitation No shortness of breath or coughing No abdominal pain, nausea or vomiting but reported constipation No urinary symptoms No any rash or wounds Physical Exam Vital Signs: Vital Signs: Last Vital Signs Temp 98.7 F 09/19/20 07:32 Pulse 63 09/19/20 07:32 Resp 17 09/19/20 07:32 BP 136/72 09/19/20 07:32 Pulse Ox 96 09/19/20 07:32 Body Mass Index 37.2 Const: Other: Constitutional : Alert, oriented, not in distress Neck : Normal inspection, Supple Cardiovascular : RRR, S1 S2, no lower extremity edema Respiratory : Chest wall moving bilaterally, not in respiratory distress Gastrointestinal: soft, lax, Normal bowel sounds, Non tender Skin : Warm/Dry, foot in dressing, no erythema or drainage noted, Neurological : Alert & oriented x3, No focal deficit Objective Data Current Medications Generic Name Dose Route Start Last Admin Trade Name Freq PRN Reason Stop Dose Admin Acetaminophen 650 mg 09/05/20 06:55 09/18/20 21:56 Acetaminophen 325 Mg Tablet PO 650 mg Q6H PRN Administration Pain, Mild (Pain Scale 1-3) Artificial Tears 1 drop 09/07/20 18:26 09/07/20 21:47 Artificial Tears 15 Ml Drops EYE-BOTH 1 drop Q6H PRN Administration Dry Eyes Atorvastatin Calcium 40 mg 09/04/20 21:00 09/18/20 20:51 Atorvastatin Calcium 40 Mg Tablet PO 40 mg BEDTIME TJ Administration Benzonatate 200 mg 09/05/20 21:00 09/19/20 07:55 Benzonatate 100 Mg Capsule PO 200 mg TID TJ Administration Bisacodyl 5 mg 09/04/20 21:00 09/19/20 07:55 Bisacodyl 5 Mg Tablet.Dr PO 5 mg BID TJ Administration Dexamethasone 40 mg 09/17/20 18:00 09/19/20 07:55 Dexamethasone 4 Mg Tablet PO 40 mg DAILY TJ Administration Docusate Sodium 100 mg 09/15/20 16:20 09/19/20 07:55 Docusate Sodium 100 Mg Capsule PO 100 mg BID TJ Administration Fluoxetine HCl 10 mg 09/05/20 09:00 09/19/20 07:55 Fluoxetine Hcl 10 Mg Capsule PO 10 mg DAILY [facility] Administration Gabapentin 600 mg 09/04/20 21:00 09/18/20 20:51 Gabapentin 600 Mg Tablet PO 600 mg BEDTIME TJ Administration Guaifenesin/Dextromethorphan 10 ml 09/05/20 17:19 09/09/20 09:41 Guaifenesin Dm 100/10/5 Ml 5 Ml Syrup PO 10 ml Q4H PRN Administration cough Vancomycin HCl 1,000 mg/ 270 mls @ 270 mls/hr 09/13/20 08:30 09/19/20 09:33 Sodium Chloride IV Infused Q12H [facility] Infusion Insulin Glargine 70 unit 09/19/20 09:00 09/19/20 09:15 Insulin Glargine,Hum.Rec.Anlog 100 Unit/Ml 10 Ml Vial SUBCUT 70 unit DAILY [facility] Administration Insulin Glargine 65 unit 09/19/20 21:00 Insulin Glargine,Hum.Rec.Anlog 100 Unit/Ml 10 Ml Vial SUBCUT BEDTIME [facility] Insulin Human Lispro 0 unit 09/05/20 07:30 09/19/20 07:53 Insulin Lispro 100 Unit/Ml 3 Ml Vial SUBCUT 6 unit QIDACHS [facility] Administration Protocol Lisinopril 5 mg 09/05/20 09:00 09/19/20 09:15 Lisinopril 5 Mg Tablet PO 5 mg DAILY [facility] Administration Protocol Magnesium Hydroxide 30 ml 09/19/20 09:31 Milk Of Magnesia 30 Ml Oral.Susp PO TID PRN Constipation Omeprazole 40 mg 09/17/20 16:30 09/19/20 06:48 Omeprazole 40 Mg Capsule. PO 40 mg BID@0630,1630 [facility] Administration Ondansetron HCl 4 mg 09/05/20 06:55 Ondansetron Hcl 4 Mg/2 Ml Vial IVPUSH Q8H PRN Nausea and Vomiting Pharmacy Consult 1 each 09/04/20 14:11 Consult Rx Perform Med Rec MISCELLANE ONCE PRN Consult order Polyethylene Glycol 17 gm 09/07/20 18:30 09/19/20 07:54 Polyethylene Glycol 3350 17 Gm Powd.Pack PO 17 gm DAILY TJ Administration Sodium Chloride 3 ml 09/05/20 08:00 09/18/20 21:39 0.9 % Sodium Chloride Flush 3 Ml Syringe IVFLUSH 3 ml QSHIFT TJ Administration Sodium Chloride 1 spray 09/09/20 20:21 09/09/20 21:18 Sodium Chloride 0.65 % Nasal 44 Ml Sprbtl NOSTRIL-B 1 spray Q1H PRN Administration Dry Nasal Passages Tramadol HCl 50 mg 09/12/20 11:39 09/16/20 01:12 Tramadol Hcl 50 Mg Tablet PO 50 mg Q6H PRN Administration Pain, Moderate (Pain Scale 4-6 Vitamin D 25 mcg 09/05/20 09:00 09/19/20 07:55 Cholecalciferol (Vitamin D3) 25 Mcg Tablet PO 25 mcg DAILY TJ Administration Labs CBC & Chem 7: 09/19/20 06:18 09/19/20 06:18 Microbiology Microbiology Results: Microbiology 09/10/20 19:15 Blood - Venous Blood Culture - Final No growth after 5 days. 09/10/20 19:15 Blood - Venous Blood Culture - Final No growth after 5 days. 09/04/20 15:00 Blood - Venous Blood Culture - Final Methicillin Res Staph Aureus 09/04/20 14:45 Blood - Venous Blood Culture - Final Methicillin Res Staph Aureus Assessment and Plan (1) Cellulitis: Status: Acute (2) Necrosis of toe: Status: Acute (3) Elevated erythrocyte sedimentation rate: Status: Acute (4) Thrombocytopenia: Status: Acute (5) MRSA bacteremia: Status: Acute Assessment and Plan: 60-year-old male with past medical history of diabetes as well as peripheral neuropathy who presents to the hospital with complaints of right toe wound, drainage Sepsis, resolved MRSA bacteremia due to diabetic foot ulcer Status post angiogram and angioplasty by vascular surgery Status post right toe amputation on , transmetatarsal amputation on September 18 MRI foot done shows no convincing evidence of osteomyelitis continue IV vancomycin day monitor Vanco trough Plan to place PICC line today Total of 6 weeks of IV antibiotics vascular surgery will reassess wound for further debridement this afternoon 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 Platelet of 26, No bleeding reported Received 2 units PLT transfusion on September 17 for surgery Continue to hold heparin, aspirin and Plavix Negative [place] results Elevated IgA level Discussed with Dr. Padgett, Treat as ITP Continue Dexamethasone 40 mg D3/4 Monitor CBC Hyperglycemia Diabetes mellitus uncontrolled Increase Lantus to continue 70 in morning and 65 at bedtime while on dexamethasone continue sliding scale insulin and diabetic diet Metformin on hold Continue Neurontin Constipation Secondary to decreased activity and pain medications Continue MiraLax, Colace and senna To add MOM p.r.n. Hypomagnesemia replaced and resolved Hypertension BP stable continue lisinopril constipation Continue MiraLax continue lactulose Hyperlipidemia statin DVT prophylaxis: SCDs, heparin stopped for thrombocytopenia
[2020-09-19 12:00] VITALS: BP 164/82; PULSE 63; RESP 19; TEMP 36.1; O2SAT 95
[2020-09-19] MEDS: Acetaminophen 325 MG TABLET 650 MG PO (12:05)
[2020-09-19] MEDS: Milk of Magnesia 30 ML ORAL.SUSP PO (15:46)
[2020-09-19] MEDS: 0.9 % Sodium Chloride Flush 3 ML SYRINGE IVFLUSH ×2 (15:46→22:07)
[2020-09-19 15:47] VITALS: BP 134/71; PULSE 67; RESP 18; TEMP 36.8; O2SAT 95
[2020-09-19 16:29] LABS: Glucose, Whole Blood 405 mg/dL (60-115)
--- NOTE | 2020-09-19 19:08 | PC.NURSE ---
1630 POC 405, Dr. Evans aware and order obtained to administer 5 units of lispro in addition to the 10 units of sliding scale lispro. Pt stated that he was urinating more frequently and felt warm at time of POC check. No complaints at this time.
[2020-09-19 19:42] VITALS: BP 158/90; PULSE 69; RESP 20; TEMP 36.5; O2SAT 97
[2020-09-19 20:19] LABS: Glucose, Whole Blood 445 mg/dL (60-115)
[2020-09-19] MEDS: Gabapentin 600 MG TABLET PO (20:36)
[2020-09-19] MEDS: Atorvastatin Calcium 40 MG TABLET PO (20:36)
[2020-09-19] MEDS: Insulin Glargine,Hum.rec.anlog 100 UNIT/ML 10 ML VIAL 65 UNIT SUBCUT (20:37)
[2020-09-19 22:43] LABS: Glucose, Whole Blood 408 mg/dL (60-115)
[2020-09-19 23:31] VITALS: BP 128/85; PULSE 51; RESP 20; TEMP 36.8; O2SAT 96
[2020-09-20] VITALS (7 sets, daily range): BP systolic 120–175; BP diastolic 60–92; PULSE 50–86; RESP 16–20; TEMP 36.2–36.9; O2SAT 93–95
--- NOTE | 2020-09-20 03:21 | PC.NURSE ---
20:26 Pt POC was 445. Dr Jeramy Carreon notified. Ordered to give 10 units per sliding scale and recheck BS in 30 minutes. Repeat BS 408 5 units of lispro insulin given at 2240 per MD
[2020-09-20] MEDS: Omeprazole 40 MG CAPSULE.DR PO ×2 (05:40→17:20)
[2020-09-20 06:43] LABS: Red Cell Distribution Width 11.6 % (11.0-16.0)
[2020-09-20 06:44] LABS: Hematocrit 31.9 % (42-52); Mean Corpuscular HGB Conc 34.5 g/dl (31.0-36.0); Mean Corpuscular Hemoglobin 32.4 pg (27.0-33.0); Mean Corpuscular Volume 93.8 fL (80-98); White Blood Count 11.7 X10*3/uL (4.8-10.8)
[2020-09-20 06:52] LABS: Platelet Count 22 X10*3/uL (160-400)
[2020-09-20] MEDS: polyethylene glycoL 3350 17 GM POWD.PACK PO (08:21)
[2020-09-20] MEDS: Insulin Glargine,Hum.rec.anlog 100 UNIT/ML 10 ML VIAL 70 UNIT SUBCUT (08:22)
[2020-09-20] MEDS: FLUoxetine HCl 10 MG CAPSULE PO (08:24)
[2020-09-20] MEDS: 0.9 % Sodium Chloride Flush 3 ML SYRINGE IVFLUSH (08:24)
[2020-09-20] MEDS: vancomycin HCL 1,000 MG in 0.9 % Sodium Chloride 250 ML 270 MG IV ×2 (08:24→20:28)
[2020-09-20] MEDS: Docusate Sodium 100 MG CAPSULE PO ×2 (08:24→20:28)
[2020-09-20] MEDS: Cholecalciferol (Vitamin D3) 25 MCG TABLET PO (08:24)
[2020-09-20] MEDS: Benzonatate 100 MG CAPSULE 200 MG PO ×3 (08:25→20:27)
[2020-09-20] MEDS: dexAMETHasone 4 MG TABLET 40 MG PO (08:25)
[2020-09-20] MEDS: bisacodyL 5 MG TABLET.DR PO ×2 (08:25→20:28)
[2020-09-20] MEDS: Insulin Lispro 100 UNIT/ML 3 ML VIAL SUBCUT ×4 (08:38→20:29)
[2020-09-20 08:59] LABS: Glucose, Whole Blood 258 mg/dL (60-115)
--- NOTE | 2020-09-20 09:03 | HO.VASCPN ---
Subjective Subjective Date of Service: 09/20/20 Patient reports: no new complaints and feels better Interval history: Pt. seen and examined. No events overnight. Doing well. No pain Physical Exam Vital Signs: Vital Signs: Last Vital Signs Temp 97.7 F 09/20/20 07:51 Pulse 53 09/20/20 07:51 Resp 19 09/20/20 07:51 BP 120/68 09/20/20 07:51 Pulse Ox 93 09/20/20 07:51 Body Mass Index 37.2 Const: General: cooperative, healthy appearing and no acute distress Orientation/consciousness: oriented to person, oriented to place and oriented to time HENMT: Head: Yes normal to inspection Neck: Carotids: no bruits Chest: Chest palpation & inspection: normal inspection of the chest Resp: Effort & Inspection: normal respiratory effort and able to speak in complete sentences Auscultation: clear to auscultation bilaterally Cardio: Rate: regular rate Heart sounds: S1 normal heart sound present and S2 normal heart sound present GI: Inspection: Yes normal to inspection Skin: General skin exam: no rashes or lesions noted Wounds: wounds noted (dressing clean dry/intact) Neuro: General: oriented to person, oriented to place, oriented to time and CN's II-XI intact bilaterally Extrem: General: Yes normal to inspection, Yes full ROM and Yes no clubbing, cyanosis or edema Psych: Appearance: grossly normal and well kempt Speech and movement: Normal speech and movement present Affect: normal affect Progress Note: A&P Assessment and plan (1) Diabetic foot ulcer: Problem details: MRSA bacteremia Due to foot wound Status: Acute Assessment and Plan: amp site appears to be doing well. Cont abx. Platelet count is low. Continue local care for now. [facility] Wound care plan in note yesterday. See me in 2 weeks. Fall Risk Details Current Medications: Current Medications Generic Name Dose Route Start Last Admin Trade Name Freq PRN Reason Stop Dose Admin Acetaminophen 650 mg 09/05/20 06:55 09/19/20 12:05 Acetaminophen 325 Mg Tablet PO 650 mg Q6H PRN Administration Pain, Mild (Pain Scale 1-3) Artificial Tears 1 drop 09/07/20 18:26 09/07/20 21:47 Artificial Tears 15 Ml Drops EYE-BOTH 1 drop Q6H PRN Administration Dry Eyes Atorvastatin Calcium 40 mg 09/04/20 21:00 09/19/20 20:36 Atorvastatin Calcium 40 Mg Tablet PO 40 mg BEDTIME TJ Administration Benzonatate 200 mg 09/05/20 21:00 09/20/20 08:25 Benzonatate 100 Mg Capsule PO 200 mg TID TJ Administration Bisacodyl 5 mg 09/04/20 21:00 09/20/20 08:25 Bisacodyl 5 Mg Tablet.Dr PO 5 mg BID TJ Administration Dexamethasone 40 mg 09/17/20 18:00 09/20/20 08:25 Dexamethasone 4 Mg Tablet PO 40 mg DAILY TJ Administration Docusate Sodium 100 mg 09/15/20 16:20 09/20/20 08:24 Docusate Sodium 100 Mg Capsule PO 100 mg BID TJ Administration Fluoxetine HCl 10 mg 09/05/20 09:00 09/20/20 08:24 Fluoxetine Hcl 10 Mg Capsule PO 10 mg DAILY TJ Administration Gabapentin 600 mg 09/04/20 21:00 09/19/20 20:36 Gabapentin 600 Mg Tablet PO 600 mg BEDTIME TJ Administration Guaifenesin/Dextromethorphan 10 ml 09/05/20 17:19 09/09/20 09:41 Guaifenesin Dm 100/10/5 Ml 5 Ml Syrup PO 10 ml Q4H PRN Administration cough Vancomycin HCl 1,000 mg/ 270 mls @ 270 mls/hr 09/20/20 20:00 Sodium Chloride IV Q12H [facility] Insulin Glargine 70 unit 09/19/20 09:00 09/20/20 08:22 Insulin Glargine,Hum.Rec.Anlog 100 Unit/Ml 10 Ml Vial SUBCUT 70 unit DAILY TJ Administration Insulin Glargine 65 unit 09/19/20 21:00 09/19/20 20:37 Insulin Glargine,Hum.Rec.Anlog 100 Unit/Ml 10 Ml Vial SUBCUT 65 unit BEDTIME [facility] Administration Insulin Human Lispro 0 unit 09/05/20 07:30 09/20/20 08:38 Insulin Lispro 100 Unit/Ml 3 Ml Vial SUBCUT 6 unit QIDACHS [facility] Administration Protocol Lisinopril 5 mg 09/05/20 09:00 09/20/20 08:25 Lisinopril 5 Mg Tablet PO 5 mg DAILY [facility] Administration Protocol Magnesium Hydroxide 30 ml 09/19/20 09:31 09/19/20 15:46 Milk Of Magnesia 30 Ml Oral.Susp PO 30 ml TID PRN Administration Constipation Omeprazole 40 mg 09/17/20 16:30 09/20/20 05:40 Omeprazole 40 Mg Capsule.Dr PO 40 mg BID@0630,2020 TJ Administration Ondansetron HCl 4 mg 09/05/20 06:55 Ondansetron Hcl 4 Mg/2 Ml Vial IVPUSH Q8H PRN Nausea and Vomiting Pharmacy Consult 1 each 09/04/20 14:11 Consult Rx Perform Med Rec MISCELLANE ONCE PRN Consult order Polyethylene Glycol 17 gm 09/07/20 18:30 09/20/20 08:21 Polyethylene Glycol 3350 17 Gm Powd.Pack PO 17 gm DAILY TJ Administration Sodium Chloride 3 ml 09/05/20 08:00 09/20/20 08:24 0.9 % Sodium Chloride Flush 3 Ml Syringe IVFLUSH 3 ml QSHIFT TJ Administration Sodium Chloride 1 spray 09/09/20 20:21 09/09/20 21:18 Sodium Chloride 0.65 % Nasal 44 Ml Sprbtl NOSTRIL-B 1 spray Q1H PRN Administration Dry Nasal Passages Tramadol HCl 50 mg 09/12/20 11:39 09/16/20 01:12 Tramadol Hcl 50 Mg Tablet PO 50 mg Q6H PRN Administration Pain, Moderate (Pain Scale 4-6 Vitamin D 25 mcg 09/05/20 09:00 09/20/20 08:24 Cholecalciferol (Vitamin D3) 25 Mcg Tablet PO 25 mcg DAILY TJ Administration Time Spent With Patient Time: Total time spent is greater than 50% in coordination of care (as documented) at patient's floor/unit and/or counseling patient: Time with patient: 15 - 24 minutes
--- NOTE | 2020-09-20 10:50 | HO.PM.IMPN ---
Subjective Subjective Date of Service: 09/20/20 Interval History: Seen in f/u for post ampuation care, complicated by thrombocytopenia without bleeding complications. ROS: Gen: no fever Resp: no sob, no cough CV: no chest, no ZIMMERMAN, no leg edema GI: No n/v, no abd pain Neuro: No confusion Physical Exam Vital Signs: Vital Signs: Last Vital Signs Temp 97.7 F 09/20/20 07:51 Pulse 53 09/20/20 10:39 Resp 19 09/20/20 07:51 BP 120/68 09/20/20 10:39 Pulse Ox 93 09/20/20 10:39 Body Mass Index 37.2 Const: Other: Constitutional : Alert, oriented, not in distress Neck : Normal inspection, Supple Cardiovascular : RRR, S1 S2, no lower extremity edema Respiratory : Chest wall moving bilaterally, not in respiratory distress Gastrointestinal: soft, lax, Normal bowel sounds, Non tender Skin : Warm/Dry, foot in dressing, no erythema or drainage noted, Neurological : Alert & oriented x3, No focal deficit Objective Data Current Medications Generic Name Dose Route Start Last Admin Trade Name Freq PRN Reason Stop Dose Admin Acetaminophen 650 mg 09/05/20 06:55 09/19/20 12:05 Acetaminophen 325 Mg Tablet PO 650 mg Q6H PRN Administration Pain, Mild (Pain Scale 1-3) Artificial Tears 1 drop 09/07/20 18:26 09/07/20 21:47 Artificial Tears 15 Ml Drops EYE-BOTH 1 drop Q6H PRN Administration Dry Eyes Atorvastatin Calcium 40 mg 09/04/20 21:00 09/19/20 20:36 Atorvastatin Calcium 40 Mg Tablet PO 40 mg BEDTIME TJ Administration Benzonatate 200 mg 09/05/20 21:00 09/20/20 08:25 Benzonatate 100 Mg Capsule PO 200 mg TID TJ Administration Bisacodyl 5 mg 09/04/20 21:00 09/20/20 08:25 Bisacodyl 5 Mg Tablet.Dr PO 5 mg BID TJ Administration Dexamethasone 40 mg 09/17/20 18:00 09/20/20 08:25 Dexamethasone 4 Mg Tablet PO 40 mg DAILY TJ Administration Docusate Sodium 100 mg 09/15/20 16:20 09/20/20 08:24 Docusate Sodium 100 Mg Capsule PO 100 mg BID TJ Administration Fluoxetine HCl 10 mg 09/05/20 09:00 09/20/20 08:24 Fluoxetine Hcl 10 Mg Capsule PO 10 mg DAILY TJ Administration Gabapentin 600 mg 09/04/20 21:00 09/19/20 20:36 Gabapentin 600 Mg Tablet PO 600 mg BEDTIME TJ Administration Guaifenesin/Dextromethorphan 10 ml 09/05/20 17:19 09/09/20 09:41 Guaifenesin Dm 100/10/5 Ml 5 Ml Syrup PO 10 ml Q4H PRN Administration cough Vancomycin HCl 1,000 mg/ 270 mls @ 270 mls/hr 09/20/20 20:00 Sodium Chloride IV Q12H TJ Insulin Glargine 70 unit 09/19/20 09:00 09/20/20 08:22 Insulin Glargine,Hum.Rec.Anlog 100 Unit/Ml 10 Ml Vial SUBCUT 70 unit DAILY TJ Administration Insulin Glargine 65 unit 09/19/20 21:00 09/19/20 20:37 Insulin Glargine,Hum.Rec.Anlog 100 Unit/Ml 10 Ml Vial SUBCUT 65 unit BEDTIME TJ Administration Insulin Human Lispro 0 unit 09/05/20 07:30 09/20/20 08:38 Insulin Lispro 100 Unit/Ml 3 Ml Vial SUBCUT 6 unit QIDACHS [facility] Administration Protocol Lisinopril 5 mg 09/05/20 09:00 09/20/20 08:25 Lisinopril 5 Mg Tablet PO 5 mg DAILY TJ Administration Protocol Magnesium Hydroxide 30 ml 09/19/20 09:31 09/19/20 15:46 Milk Of Magnesia 30 Ml Oral.Susp PO 30 ml TID PRN Administration Constipation Omeprazole 40 mg 09/17/20 16:30 09/20/20 05:40 Omeprazole 40 Mg Capsule. PO 40 mg BID@0630,1630 TJ Administration Ondansetron HCl 4 mg 09/05/20 06:55 Ondansetron Hcl 4 Mg/2 Ml Vial IVPUSH Q8H PRN Nausea and Vomiting Pharmacy Consult 1 each 09/04/20 14:11 Consult Rx Perform Med Rec MISCELLANE ONCE PRN Consult order Polyethylene Glycol 17 gm 09/07/20 18:30 09/20/20 08:21 Polyethylene Glycol 3350 17 Gm Powd.Pack PO 17 gm DAILY TJ Administration Sodium Chloride 3 ml 09/05/20 08:00 09/20/20 08:24 0.9 % Sodium Chloride Flush 3 Ml Syringe IVFLUSH 3 ml QSHIFT TJ Administration Sodium Chloride 1 spray 09/09/20 20:21 09/09/20 21:18 Sodium Chloride 0.65 % Nasal 44 Ml Sprbtl NOSTRIL-B 1 spray Q1H PRN Administration Dry Nasal Passages Tramadol HCl 50 mg 09/12/20 11:39 09/16/20 01:12 Tramadol Hcl 50 Mg Tablet PO 50 mg Q6H PRN Administration Pain, Moderate (Pain Scale 4-6 Vitamin D 25 mcg 09/05/20 09:00 09/20/20 08:24 Cholecalciferol (Vitamin D3) 25 Mcg Tablet PO 25 mcg DAILY TJ Administration Labs CBC & Chem 7: 09/20/20 05:56 09/19/20 06:18 Microbiology Microbiology Results: Microbiology 09/10/20 19:15 Blood - Venous Blood Culture - Final No growth after 5 days. 09/10/20 19:15 Blood - Venous Blood Culture - Final No growth after 5 days. 09/04/20 15:00 Blood - Venous Blood Culture - Final Methicillin Res Staph Aureus 09/04/20 14:45 Blood - Venous Blood Culture - Final Methicillin Res Staph Aureus Assessment and Plan (1) Cellulitis: Status: Acute (2) Necrosis of toe: Status: Acute (3) Elevated erythrocyte sedimentation rate: Status: Acute (4) Thrombocytopenia: Status: Acute (5) MRSA bacteremia: Status: Acute Assessment and Plan: 60-year-old male with past medical history of diabetes as well as peripheral neuropathy who presents to the hospital with complaints of right toe wound, drainage Sepsis, resolved MRSA bacteremia due to diabetic foot ulcer Status post angiogram and angioplasty by vascular surgery Status post right toe amputation on , transmetatarsal amputation on September 18 MRI foot done shows no convincing evidence of osteomyelitis continue IV vancomycin day monitor Vanco trough PICC inserted on 09/19 Total of 6 weeks of IV antibiotics vascular surgery will reassess wound for further debridement as needed Thrombocytopenia --likely med induced, and possible ITP given abrupt onset Platelet of 22, No bleeding reported Received 2 units PLT transfusion on September 17 for surgery Continue to hold heparin, aspirin and Plavix or ASA Negative [place] w/u Elevated IgA level Discussed with Dr. Padgett, Treat as ITP Continue Dexamethasone 40 mg D4/4 Monitor CBC Diabetes with high sugars from steroid--Contunue Increase Lantus to continue 70 in morning and 65 at bedtime while on dexamethasone continue sliding scale insulin and diabetic diet Metformin on hold Continue Neurontin Constipation Secondary to decreased activity and pain medications Continue MiraLax, Colace and senna To add MOM p.r.n. Hypomagnesemia replaced and resolved Hypertension BP stable continue lisinopril constipation Continue MiraLax continue lactulose Hyperlipidemia statin DVT prophylaxis: SCDs, heparin stopped for thrombocytopenia To short term rehab
[2020-09-20 11:54] LABS: Glucose, Whole Blood 311 mg/dL (60-115)
--- NOTE | 2020-09-20 13:54 | MHC.CM.PN ---
PER PHYSICIAN ROUNDS, PLAN IS TO [facility] TOMORROW. REFERRALS UPDATED. CASE MANAGEMENT WILL PRESENT ACCEPTING OFFERS TO PATIENT FOR HIS CHOICE OF FACILITIES
[2020-09-20 16:40] LABS: Glucose, Whole Blood 381 mg/dL (60-115)
[2020-09-20 20:28] LABS: Glucose, Whole Blood 431 mg/dL (60-115)
[2020-09-20] MEDS: Atorvastatin Calcium 40 MG TABLET PO (20:28)
[2020-09-20] MEDS: Insulin Glargine,Hum.rec.anlog 100 UNIT/ML 10 ML VIAL 65 UNIT SUBCUT (20:28)
[2020-09-20] MEDS: Gabapentin 600 MG TABLET PO (20:28)
[2020-09-20 21:37] LABS: Glucose, Whole Blood 450 mg/dL (60-115)
[2020-09-20] MEDS: Insulin Lispro 100 UNIT/ML 3 ML VIAL 10 UNIT SUBCUT (22:21)
[2020-09-21 04:00] VITALS: BP 178/87; PULSE 50; RESP 16; TEMP 36.6; O2SAT 95
[2020-09-21] MEDS: Omeprazole 40 MG CAPSULE.DR PO ×2 (06:00→15:38)
[2020-09-21 07:07] VITALS: BP 177/80; PULSE 55; RESP 17; TEMP 36.2; O2SAT 96
[2020-09-21 07:24] LABS: Glucose, Whole Blood 311 mg/dL (60-115)
[2020-09-21] MEDS: Insulin Glargine,Hum.rec.anlog 100 UNIT/ML 10 ML VIAL 70 UNIT SUBCUT (08:17)
[2020-09-21] MEDS: Benzonatate 100 MG CAPSULE 200 MG PO ×3 (08:18→21:03)
[2020-09-21] MEDS: bisacodyL 5 MG TABLET.DR PO ×2 (08:18→21:03)
[2020-09-21] MEDS: Insulin Lispro 100 UNIT/ML 3 ML VIAL SUBCUT ×5 (08:18→21:02)
[2020-09-21] MEDS: Docusate Sodium 100 MG CAPSULE PO ×2 (08:18→21:03)
[2020-09-21] MEDS: Cholecalciferol (Vitamin D3) 25 MCG TABLET PO (08:18)
[2020-09-21] MEDS: polyethylene glycoL 3350 17 GM POWD.PACK PO (08:19)
[2020-09-21] MEDS: dexAMETHasone 4 MG TABLET 40 MG PO (08:19)
[2020-09-21] MEDS: FLUoxetine HCl 10 MG CAPSULE PO (08:19)
[2020-09-21] MEDS: 0.9 % Sodium Chloride Flush 3 ML SYRINGE IVFLUSH (08:27)
[2020-09-21 08:41] LABS: Vancomycin Trough 11.1 mcg/mL (10.0-20.0)
--- NOTE | 2020-09-21 09:31 | PM.DS ---
DS: Providers Provider Date of Service: 12/21/20 Date of admission: 09/05/20 06:55 Primary care physician: Virginie Liao MD Consults: 09/04/20 20:52 Consult to Infectious Diseases Routine Consulting Provider: Freya Fleming Reason for consultation: Diabetic foot wound Has provider been notified: No 09/05/20 06:39 Consult to Infectious Diseases Routine Consulting Provider: Freya Fleming Reason for consultation: diabetic foot wound Has provider been notified: No 09/05/20 13:13 Consult to Vascular Surgery Routine Consulting Provider: Cameron Figueroa Reason for consultation: right foot ulcer Has provider been notified: Yes 09/05/20 18:07 Consult Respiratory Therapy Routine Reason for consultation: bipap at home; sleep apnea 09/09/20 10:22 Consult to Care Team Routine Comment: Reason for consultation: depression 09/10/20 11:41 Consult to Infectious Diseases Routine Consulting Provider: Freya Fleming Reason for consultation: mrsa bactremia 09/13/20 11:31 Consult to Hematology / Oncology Routine Consulting Provider: Mayra Jones Reason for consultation: worsening thrombocytopenia DS: Diagnosis Discharge Diagnosis (1) Cellulitis: Status: Resolved (2) Necrosis of toe: Status: Resolved (3) Elevated erythrocyte sedimentation rate: Status: Resolved (4) Thrombocytopenia: Status: Resolved (5) MRSA bacteremia: Status: Resolved DS: Medications Discharge Medications Home Medications: Home Medications Medication Instructions Recorded Confirmed aspirin 81 mg PO DAILY 07/17/20 09/04/20 atorvastatin 40 mg PO BEDTIME 07/17/20 09/04/20 gabapentin 600 mg PO BEDTIME 07/17/20 09/04/20 insulin degludec [Tresiba 80 unit SUBCUT QAM 07/17/20 09/04/20 FlexTouch U-100] ipratropium-albuterol [Combivent 2 puff INHALATION Q6H PRN 07/17/20 09/04/20 Respimat] liraglutide [Victoza 3-Chet] 1.8 mg SUBCUT DAILY 07/17/20 09/04/20 lisinopril 5 mg PO DAILY 07/17/20 09/04/20 metformin 1,000 mg PO BID 07/17/20 09/04/20 bisacodyl 5 mg PO BID 09/04/20 09/04/20 cholecalciferol (vitamin D3) 25 mcg PO DAILY 09/04/20 09/04/20 fluoxetine 10 mg PO DAILY 09/04/20 09/04/20 insulin degludec [Tresiba 65 unit SUBCUT BEDTIME 09/04/20 09/04/20 FlexTouch U-100] DS: Summary Hospital Course Hospital Course: From history and physical by admitting hospitalist Dede Diaz MD, 09/04/20: This is a 60-year-old male with past medical history of diabetes, hypertension, hyperlipidemia, peripheral neuropathy, COPD who presents to the hospital with complaints of right big toe swelling, drainage, as well as changes in skin color. Patient reports that he started noticing changes in the skin color for about few days now, he also started having malodorous drainage that was green pus in color therefore he was concerning came to the hospital. He reports that he usually follows up with the wound clinic at the [facility] emergency room due to this toe having and also chronically and was there about a week ago . He regularly gets I&D of the toe and about a week ago he was there with no complications or issues. He has significant neuropathy and does not feel any pain in his foot, he noticed skin changes were his toe has now become blue and has also dark necrosis at the base of the toe, He has also been having a cough that is non productive, he has some chills with no fever, he has no shortness of breath, has no rhinorrhea, no headache, no change in vision, he has on and off diarrhea, no urinary symptoms, he has had low oral intake. And low appetite. Denies any extremity swelling otherwise. On arrival to the ED vitals are significant for temp of 98.6?, pulse rate of 91, respiratory rate of 18, blood pressure 143/74, 97% O2 on room air. Patient did become tachycardic with a heart rate of 107 Labs are significant for WBC count of 12.1, ESR of 90, PT of 15.9, INR of 1.3, sodium of 131, BUN of 27, creatinine of 1.24 (baseline), glucose of 23, magnesium of 1.5, CRP of 18.4, UA negative, COVID-19 negative, Foot x-ray demonstrates soft tissue swelling without definite erosive changes or gas within the soft tissue Chest x-ray shows unremarkable exam The patient was admitted to the medical/surgical floor for sepsis from ulcerated diabetic foot infection complicated by MRSA bacteremia. MRI did not show definitive osteomyelitis. He was seen by Infectious Disease and Vascular Surgery. He was treated with vancomycin IV with clearance of the blood cultures. He underwent angioplasty of the right posterior tibial artery on 09/06/20 followed by amputation of the right great toe on 09/10/20 with a revision surgery on 09/18/20. PICC line was placed on 09/09/20. Hospitalization was complicated by thrombocytopenia with platelet billy of 16,000. Hematology was consulted. HIT assay was negative. 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 Ultimately, he did not respond to dexamethasone and the thrombocytopenia was attributed to the vancomycin. With switching his antibiotic to daptomycin, his platelet count began to recover and was 89,000 on the day of discharge. 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 He received 14 days of vancomycin before he was switched to daptomycin. His insurance declined a SNF stay for antibiotic administration and wound care, so he was set up with VNA and home infusion. He will require 26 more days of antibiotic therapy with daptomycin. Statin therapy should be stopped while he is on daptomycin due avoid skeletal muscle toxicity. While on antibiotic therapy, he needs weekly lab draws to include CBCd, BMP, CPK, ESR, and CRP. He should follow up with Infectious Disease specialist Dr Fleming in 2 weeks. For wound care, he needs daily changes with Xeroform followed by 4x4 and Kerlix wrap. He will follow up with Dr Figueroa from Vascular Surgery in 2 weeks. Finally, regarding his thrombocytopenia and MGUS, he should follow up with Dr Padgett from Hematology in 4 weeks. Time Spent with Patient Time attestation: Total time spent providing and/or coordinating discharge services: Discharge coordination time: Greater than 30 minutes Physical Exam Vital Signs: Vital Signs: Last Vital Signs Temp 97.2 F 09/21/20 07:07 Pulse 55 09/21/20 07:07 Resp 17 09/21/20 07:07 BP 177/80 H 09/21/20 07:07 Pulse Ox 96 09/21/20 07:07 Body Mass Index 37.2 Const: Other: Constitutional : Alert, oriented, not in distress Neck : Normal inspection, Supple Cardiovascular : RRR, S1 S2, no lower extremity edema Respiratory : Chest wall moving bilaterally, not in respiratory distress Gastrointestinal: soft, lax, Normal bowel sounds, Non tender Skin : Warm/Dry, foot in dressing, no erythema or drainage noted, Neurological : Alert & oriented x3, No focal deficit DS: Data Data Completed and Pending Completed studies during hospitalization [Text1]: Pending at discharge 09/10/20 13:31 Surgical [PTH] Routine 09/17/20 14:01 Surgical [PTH] Routine Labs on day of discharge: Laboratory Tests 09/04/20 09/04/20 09/04/20 14:44 14:44 14:45 WBC RBC Hgb Hct MCV MCH MCHC RDW Plt Count MPV Immature Gran % (Auto) Neut % (Auto) Lymph % (Auto) [place] % (Auto) Eos % (Auto) Baso % (Auto) Lymph # (Auto) [place] # (Auto) Eos # (Auto) Baso # (Auto) Abs Immat Gran (auto) Absolute Neuts (auto) Absolute Nucleated RBC Nucleated RBC % (auto) Smear Tech's Comments ESR PT INR APTT Fibrinogen D-Dimer Hep-Ind Thrombocytop Com Sodium Potassium Chloride Carbon Dioxide Anion Gap BUN Creatinine Estim Creat Clear Calc Estimated GFR POC Glucose Random Glucose Lactic Acid 1.2 Calcium Magnesium Ferritin Total Bilirubin Direct Bilirubin AST ALT Alkaline Phosphatase Lactate Dehydrogenase C-Reactive Protein B-Natriuretic Peptide 59 Total Protein Albumin Procalcitonin 0.18 Urine Color Urine Appearance Urine pH Ur Specific [place] Urine Protein Urine Glucose (UA) Urine Ketones Urine Blood Urine Nitrite Ur Leukocyte Esterase Vancomycin Trough IgG Total IgA Total IgM PAYAL Interpretation Heparin Dep Plt Ab OD Hep-Induced Plt Ab Devi Coronavirus (PCR) Influenza Type A (PCR) Influenza Type B (PCR) RSV RNA Qual (PCR) Blood Type Antibody Screen 09/04/20 09/04/20 09/04/20 14:45 14:45 14:46 WBC 12.1 H RBC 3.83 L Hgb 12.8 L Hct 35.8 L MCV 93.5 MCH 33.4 H MCHC 35.8 RDW 11.1 Plt Count 214 D MPV 10.3 Immature Gran % (Auto) 0.5 H Neut % (Auto) 79.4 H Lymph % (Auto) 6.9 L [place] % (Auto) 12.5 H Eos % (Auto) 0.4 Baso % (Auto) 0.3 Lymph # (Auto) 0.8 L [place] # (Auto) 1.5 H Eos # (Auto) 0.1 Baso # (Auto) 0.0 Abs Immat Gran (auto) 0.06 H Absolute Neuts (auto) 9.6 H Absolute Nucleated RBC 0.000 Nucleated RBC % (auto) 0.0 Smear Tech's Comments VERIFIED ESR PT 15.9 H D INR 1.3 H APTT 37.3 Fibrinogen D-Dimer Hep-Ind Thrombocytop Com Sodium Potassium Chloride Carbon Dioxide Anion Gap BUN Creatinine Estim Creat Clear Calc Estimated GFR POC Glucose Random Glucose Lactic Acid Calcium Magnesium Ferritin 609 H Total Bilirubin Direct Bilirubin AST ALT Alkaline Phosphatase Lactate Dehydrogenase C-Reactive Protein B-Natriuretic Peptide Total Protein Albumin Procalcitonin Urine Color Urine Appearance Urine pH Ur Specific [place] Urine Protein Urine Glucose (UA) Urine Ketones Urine Blood Urine Nitrite Ur Leukocyte Esterase Vancomycin Trough IgG Total IgA Total IgM PAYAL Interpretation Heparin Dep Plt Ab OD Hep-Induced Plt Ab Devi Coronavirus (PCR) Influenza Type A (PCR) Influenza Type B (PCR) RSV RNA Qual (PCR) Blood Type Antibody Screen 09/04/20 09/04/20 09/04/20 14:46 14:46 15:00 WBC RBC Hgb Hct MCV MCH MCHC RDW Plt Count MPV Immature Gran % (Auto) Neut % (Auto) Lymph % (Auto) [place] % (Auto) Eos % (Auto) Baso % (Auto) Lymph # (Auto) [place] # (Auto) Eos # (Auto) Baso # (Auto) Abs Immat Gran (auto) Absolute Neuts (auto) Absolute Nucleated RBC Nucleated RBC % (auto) Smear Tech's Comments ESR 90 H PT INR APTT Fibrinogen D-Dimer Hep-Ind Thrombocytop Com Sodium 131 L Potassium 4.4 Chloride 98 Carbon Dioxide 22 Anion Gap 15 BUN 27 H Creatinine 1.24 Estim Creat Clear Calc 90.1 Estimated GFR 59 POC Glucose Random Glucose 216 H Lactic Acid Calcium 8.3 L D Magnesium 1.5 L Ferritin Total Bilirubin 1.6 H Direct Bilirubin 0.9 H AST 36 D ALT 61 H Alkaline Phosphatase 134 H D Lactate Dehydrogenase 187 C-Reactive Protein 18.48 H B-Natriuretic Peptide Total Protein 6.7 Albumin 3.7 Procalcitonin Urine Color Urine Appearance Urine pH Ur Specific [place] Urine Protein Urine Glucose (UA) Urine Ketones Urine Blood Urine Nitrite Ur Leukocyte Esterase Vancomycin Trough IgG Total IgA Total IgM PAYAL Interpretation Heparin Dep Plt Ab OD Hep-Induced Plt Ab Devi Coronavirus (PCR) NEGATIVE Influenza Type A (PCR) NEGATIVE Influenza Type B (PCR) NEGATIVE RSV RNA Qual (PCR) NEGATIVE Blood Type Antibody Screen 09/04/20 09/04/20 09/05/20 20:00 22:07 08:16 WBC RBC Hgb Hct MCV MCH MCHC RDW Plt Count MPV Immature Gran % (Auto) Neut % (Auto) Lymph % (Auto) [place] % (Auto) Eos % (Auto) Baso % (Auto) Lymph # (Auto) [place] # (Auto) Eos # (Auto) Baso # (Auto) Abs Immat Gran (auto) Absolute Neuts (auto) Absolute Nucleated RBC Nucleated RBC % (auto) Smear Tech's Comments ESR PT INR APTT Fibrinogen D-Dimer Hep-Ind Thrombocytop Com Sodium Potassium Chloride Carbon Dioxide Anion Gap BUN Creatinine Estim Creat Clear Calc Estimated GFR POC Glucose 293 H 315 H Random Glucose Lactic Acid Calcium Magnesium Ferritin Total Bilirubin Direct Bilirubin AST ALT Alkaline Phosphatase Lactate Dehydrogenase C-Reactive Protein B-Natriuretic Peptide Total Protein Albumin Procalcitonin Urine Color DARK YELLOW Urine Appearance HAZY Urine pH 5.5 Ur Specific [place] >= 1.030 H Urine Protein TRACE Urine Glucose (UA) 100 H Urine Ketones NEG Urine Blood NEG Urine Nitrite NEG Ur Leukocyte Esterase NEG Vancomycin Trough IgG Total IgA Total IgM PAYAL Interpretation Heparin Dep Plt Ab OD Hep-Induced Plt Ab Devi Coronavirus (PCR) Influenza Type A (PCR) Influenza Type B (PCR) RSV RNA Qual (PCR) Blood Type Antibody Screen 09/05/20 09/05/20 09/05/20 11:07 14:36 16:27 WBC RBC Hgb Hct MCV MCH MCHC RDW Plt Count MPV Immature Gran % (Auto) Neut % (Auto) Lymph % (Auto) [place] % (Auto) Eos % (Auto) Baso % (Auto) Lymph # (Auto) [place] # (Auto) Eos # (Auto) Baso # (Auto) Abs Immat Gran (auto) Absolute Neuts (auto) Absolute Nucleated RBC Nucleated RBC % (auto) Smear Tech's Comments ESR PT INR APTT Fibrinogen D-Dimer Hep-Ind Thrombocytop Com Sodium Potassium Chloride Carbon Dioxide Anion Gap BUN Creatinine Estim Creat Clear Calc Estimated GFR POC Glucose 223 H 181 H 295 H Random Glucose Lactic Acid Calcium Magnesium Ferritin Total Bilirubin Direct Bilirubin AST ALT Alkaline Phosphatase Lactate Dehydrogenase C-Reactive Protein B-Natriuretic Peptide Total Protein Albumin Procalcitonin Urine Color Urine Appearance Urine pH Ur Specific [place] Urine Protein Urine Glucose (UA) Urine Ketones Urine Blood Urine Nitrite Ur Leukocyte Esterase Vancomycin Trough IgG Total IgA Total IgM PAYAL Interpretation Heparin Dep Plt Ab OD Hep-Induced Plt Ab Devi Coronavirus (PCR) Influenza Type A (PCR) Influenza Type B (PCR) RSV RNA Qual (PCR) Blood Type Antibody Screen 09/05/20 09/06/20 09/06/20 20:39 05:09 05:09 WBC 10.4 RBC 3.50 L Hgb 11.8 L Hct 32.9 L MCV 94.0 MCH 33.7 H MCHC 35.9 RDW 11.1 Plt Count 201 MPV 10.8 Immature Gran % (Auto) 0.6 H Neut % (Auto) 68.7 Lymph % (Auto) 15.6 L [place] % (Auto) 13.0 H Eos % (Auto) 1.6 Baso % (Auto) 0.5 Lymph # (Auto) 1.6 [place] # (Auto) 1.4 H Eos # (Auto) 0.2 Baso # (Auto) 0.1 Abs Immat Gran (auto) 0.06 H Absolute Neuts (auto) 7.2 Absolute Nucleated RBC 0.000 Nucleated RBC % (auto) 0.0 Smear Tech's Comments ESR PT INR APTT Fibrinogen D-Dimer Hep-Ind Thrombocytop Com Sodium Potassium Chloride Carbon Dioxide Anion Gap BUN Creatinine Estim Creat Clear Calc Estimated GFR POC Glucose 290 H Random Glucose Lactic Acid Calcium Magnesium Ferritin Total Bilirubin Direct Bilirubin AST ALT Alkaline Phosphatase Lactate Dehydrogenase C-Reactive Protein B-Natriuretic Peptide Total Protein Albumin Procalcitonin Urine Color Urine Appearance Urine pH Ur Specific [place] Urine Protein Urine Glucose (UA) Urine Ketones Urine Blood Urine Nitrite Ur Leukocyte Esterase Vancomycin Trough 7.8 L IgG Total IgA Total IgM PAYAL Interpretation Heparin Dep Plt Ab OD Hep-Induced Plt Ab Devi Coronavirus (PCR) Influenza Type A (PCR) Influenza Type B (PCR) RSV RNA Qual (PCR) Blood Type Antibody Screen 09/06/20 09/06/20 09/06/20 05:09 06:00 11:13 WBC RBC Hgb Hct MCV MCH MCHC RDW Plt Count MPV Immature Gran % (Auto) Neut % (Auto) Lymph % (Auto) [place] % (Auto) Eos % (Auto) Baso % (Auto) Lymph # (Auto) [place] # (Auto) Eos # (Auto) Baso # (Auto) Abs Immat Gran (auto) Absolute Neuts (auto) Absolute Nucleated RBC Nucleated RBC % (auto) Smear Tech's Comments ESR PT INR APTT Fibrinogen D-Dimer Hep-Ind Thrombocytop Com Sodium 133 L Potassium 4.1 Chloride 101 Carbon Dioxide 20 L Anion Gap 16 BUN 28 H Creatinine 1.36 Estim Creat Clear Calc 82.2 Estimated GFR 53 POC Glucose 164 H 210 H Random Glucose 168 H Lactic Acid Calcium 7.6 L D Magnesium 2.0 Ferritin Total Bilirubin Direct Bilirubin AST ALT Alkaline Phosphatase Lactate Dehydrogenase C-Reactive Protein B-Natriuretic Peptide Total Protein Albumin Procalcitonin Urine Color Urine Appearance Urine pH Ur Specific [place] Urine Protein Urine Glucose (UA) Urine Ketones Urine Blood Urine Nitrite Ur Leukocyte Esterase Vancomycin Trough IgG Total IgA Total IgM PAYAL Interpretation Heparin Dep Plt Ab OD Hep-Induced Plt Ab Devi Coronavirus (PCR) Influenza Type A (PCR) Influenza Type B (PCR) RSV RNA Qual (PCR) Blood Type Antibody Screen 09/06/20 09/06/20 09/07/20 16:33 20:46 07:22 WBC RBC Hgb Hct MCV MCH MCHC RDW Plt Count MPV Immature Gran % (Auto) Neut % (Auto) Lymph % (Auto) [place] % (Auto) Eos % (Auto) Baso % (Auto) Lymph # (Auto) [place] # (Auto) Eos # (Auto) Baso # (Auto) Abs Immat Gran (auto) Absolute Neuts (auto) Absolute Nucleated RBC Nucleated RBC % (auto) Smear Tech's Comments ESR PT INR APTT Fibrinogen D-Dimer Hep-Ind Thrombocytop Com Sodium Potassium Chloride Carbon Dioxide Anion Gap BUN Creatinine Estim Creat Clear Calc Estimated GFR POC Glucose 279 H 281 H 171 H Random Glucose Lactic Acid Calcium Magnesium Ferritin Total Bilirubin Direct Bilirubin AST ALT Alkaline Phosphatase Lactate Dehydrogenase C-Reactive Protein B-Natriuretic Peptide Total Protein Albumin Procalcitonin Urine Color Urine Appearance Urine pH Ur Specific [place] Urine Protein Urine Glucose (UA) Urine Ketones Urine Blood Urine Nitrite Ur Leukocyte Esterase Vancomycin Trough IgG Total IgA Total IgM PAYAL Interpretation Heparin Dep Plt Ab OD Hep-Induced Plt Ab Devi Coronavirus (PCR) Influenza Type A (PCR) Influenza Type B (PCR) RSV RNA Qual (PCR) Blood Type Antibody Screen 09/07/20 09/07/20 09/07/20 07:56 11:37 16:43 WBC RBC Hgb Hct MCV MCH MCHC RDW Plt Count MPV Immature Gran % (Auto) Neut % (Auto) Lymph % (Auto) [place] % (Auto) Eos % (Auto) Baso % (Auto) Lymph # (Auto) [place] # (Auto) Eos # (Auto) Baso # (Auto) Abs Immat Gran (auto) Absolute Neuts (auto) Absolute Nucleated RBC Nucleated RBC % (auto) Smear Tech's Comments ESR PT INR APTT Fibrinogen D-Dimer Hep-Ind Thrombocytop Com Sodium 135 Potassium 4.2 Chloride 103 Carbon Dioxide 24 Anion Gap 12 BUN 22 H Creatinine 1.15 Estim Creat Clear Calc 97.2 Estimated GFR > 60 POC Glucose 295 H 259 H Random Glucose 169 H Lactic Acid Calcium 7.3 L Magnesium Ferritin Total Bilirubin Direct Bilirubin AST ALT Alkaline Phosphatase Lactate Dehydrogenase C-Reactive Protein B-Natriuretic Peptide Total Protein Albumin Procalcitonin Urine Color Urine Appearance Urine pH Ur Specific [place] Urine Protein Urine Glucose (UA) Urine Ketones Urine Blood Urine Nitrite Ur Leukocyte Esterase Vancomycin Trough IgG Total IgA Total IgM PAYAL Interpretation Heparin Dep Plt Ab OD Hep-Induced Plt Ab Devi Coronavirus (PCR) Influenza Type A (PCR) Influenza Type B (PCR) RSV RNA Qual (PCR) Blood Type Antibody Screen 09/07/20 09/07/20 09/08/20 20:36 23:13 07:28 WBC RBC Hgb Hct MCV MCH MCHC RDW Plt Count MPV Immature Gran % (Auto) Neut % (Auto) Lymph % (Auto) [place] % (Auto) Eos % (Auto) Baso % (Auto) Lymph # (Auto) [place] # (Auto) Eos # (Auto) Baso # (Auto) Abs Immat Gran (auto) Absolute Neuts (auto) Absolute Nucleated RBC Nucleated RBC % (auto) Smear Tech's Comments ESR PT INR APTT Fibrinogen D-Dimer Hep-Ind Thrombocytop Com Sodium Potassium Chloride Carbon Dioxide Anion Gap BUN Creatinine Estim Creat Clear Calc Estimated GFR POC Glucose 248 H 158 H Random Glucose Lactic Acid Calcium Magnesium Ferritin Total Bilirubin Direct Bilirubin AST ALT Alkaline Phosphatase Lactate Dehydrogenase C-Reactive Protein B-Natriuretic Peptide Total Protein Albumin Procalcitonin Urine Color Urine Appearance Urine pH Ur Specific [place] Urine Protein Urine Glucose (UA) Urine Ketones Urine Blood Urine Nitrite Ur Leukocyte Esterase Vancomycin Trough 9.6 L IgG Total IgA Total IgM PAYAL Interpretation Heparin Dep Plt Ab OD Hep-Induced Plt Ab Devi Coronavirus (PCR) Influenza Type A (PCR) Influenza Type B (PCR) RSV RNA Qual (PCR) Blood Type Antibody Screen 09/08/20 09/08/20 09/08/20 11:52 16:53 20:00 WBC RBC Hgb Hct MCV MCH MCHC RDW Plt Count MPV Immature Gran % (Auto) Neut % (Auto) Lymph % (Auto) [place] % (Auto) Eos % (Auto) Baso % (Auto) Lymph # (Auto) [place] # (Auto) Eos # (Auto) Baso # (Auto) Abs Immat Gran (auto) Absolute Neuts (auto) Absolute Nucleated RBC Nucleated RBC % (auto) Smear Tech's Comments ESR PT INR APTT Fibrinogen D-Dimer Hep-Ind Thrombocytop Com Sodium Potassium Chloride Carbon Dioxide Anion Gap BUN Creatinine Estim Creat Clear Calc Estimated GFR POC Glucose 257 H 303 H 307 H Random Glucose Lactic Acid Calcium Magnesium Ferritin Total Bilirubin Direct Bilirubin AST ALT Alkaline Phosphatase Lactate Dehydrogenase C-Reactive Protein B-Natriuretic Peptide Total Protein Albumin Procalcitonin Urine Color Urine Appearance Urine pH Ur Specific [place] Urine Protein Urine Glucose (UA) Urine Ketones Urine Blood Urine Nitrite Ur Leukocyte Esterase Vancomycin Trough IgG Total IgA Total IgM PAYAL Interpretation Heparin Dep Plt Ab OD Hep-Induced Plt Ab Devi Coronavirus (PCR) Influenza Type A (PCR) Influenza Type B (PCR) RSV RNA Qual (PCR) Blood Type Antibody Screen 09/09/20 09/09/20 09/09/20 07:25 11:14 11:58 WBC RBC Hgb Hct MCV MCH MCHC RDW Plt Count MPV Immature Gran % (Auto) Neut % (Auto) Lymph % (Auto) [place] % (Auto) Eos % (Auto) Baso % (Auto) Lymph # (Auto) [place] # (Auto) Eos # (Auto) Baso # (Auto) Abs Immat Gran (auto) Absolute Neuts (auto) Absolute Nucleated RBC Nucleated RBC % (auto) Smear Tech's Comments ESR PT INR APTT Fibrinogen D-Dimer Hep-Ind Thrombocytop Com Sodium Potassium Chloride Carbon Dioxide Anion Gap BUN Creatinine Estim Creat Clear Calc Estimated GFR POC Glucose 159 H 279 H Random Glucose Lactic Acid Calcium Magnesium Ferritin Total Bilirubin Direct Bilirubin AST ALT Alkaline Phosphatase Lactate Dehydrogenase C-Reactive Protein B-Natriuretic Peptide Total Protein Albumin Procalcitonin Urine Color Urine Appearance Urine pH Ur Specific [place] Urine Protein Urine Glucose (UA) Urine Ketones Urine Blood Urine Nitrite Ur Leukocyte Esterase Vancomycin Trough 11.7 IgG Total IgA Total IgM PAYAL Interpretation Heparin Dep Plt Ab OD Hep-Induced Plt Ab Devi Coronavirus (PCR) Influenza Type A (PCR) Influenza Type B (PCR) RSV RNA Qual (PCR) Blood Type Antibody Screen 09/09/20 09/09/20 09/09/20 12:26 12:26 16:01 WBC 11.7 H RBC 3.40 L Hgb 11.2 L Hct 32.6 L MCV 95.9 MCH 32.9 MCHC 34.4 RDW 11.3 Plt Count 207 MPV 10.4 Immature Gran % (Auto) 2.5 H Neut % (Auto) 67.5 Lymph % (Auto) 17.6 L [place] % (Auto) 9.5 Eos % (Auto) 2.5 Baso % (Auto) 0.4 Lymph # (Auto) 2.1 [place] # (Auto) 1.1 Eos # (Auto) 0.3 Baso # (Auto) 0.1 Abs Immat Gran (auto) 0.29 H Absolute Neuts (auto) 7.9 Absolute Nucleated RBC 0.000 Nucleated RBC % (auto) 0.0 Smear Tech's Comments ESR PT INR APTT Fibrinogen D-Dimer Hep-Ind Thrombocytop Com Sodium 134 L Potassium 4.9 Chloride 100 Carbon Dioxide 26 Anion Gap 13 BUN 14 Creatinine 1.22 Estim Creat Clear Calc 91.6 Estimated GFR > 60 POC Glucose 274 H Random Glucose 275 H D Lactic Acid Calcium 8.1 L D Magnesium Ferritin Total Bilirubin Direct Bilirubin AST ALT Alkaline Phosphatase Lactate Dehydrogenase C-Reactive Protein B-Natriuretic Peptide Total Protein Albumin Procalcitonin Urine Color Urine Appearance Urine pH Ur Specific [place] Urine Protein Urine Glucose (UA) Urine Ketones Urine Blood Urine Nitrite Ur Leukocyte Esterase Vancomycin Trough IgG Total IgA Total IgM PAYAL Interpretation Heparin Dep Plt Ab OD Hep-Induced Plt Ab Devi Coronavirus (PCR) Influenza Type A (PCR) Influenza Type B (PCR) RSV RNA Qual (PCR) Blood Type Antibody Screen 09/09/20 09/10/20 09/10/20 20:28 06:12 07:50 WBC RBC Hgb Hct MCV MCH MCHC RDW Plt Count MPV Immature Gran % (Auto) Neut % (Auto) Lymph % (Auto) [place] % (Auto) Eos % (Auto) Baso % (Auto) Lymph # (Auto) [place] # (Auto) Eos # (Auto) Baso # (Auto) Abs Immat Gran (auto) Absolute Neuts (auto) Absolute Nucleated RBC Nucleated RBC % (auto) Smear Tech's Comments ESR PT INR APTT Fibrinogen D-Dimer Hep-Ind Thrombocytop Com Sodium 136 Potassium 4.3 Chloride 102 Carbon Dioxide 24 Anion Gap 14 BUN 10 Creatinine 1.00 Estim Creat Clear Calc 111.8 Estimated GFR > 60 POC Glucose 267 H 175 H Random Glucose 183 H Lactic Acid Calcium 7.9 L Magnesium Ferritin Total Bilirubin Direct Bilirubin AST ALT Alkaline Phosphatase Lactate Dehydrogenase C-Reactive Protein B-Natriuretic Peptide Total Protein Albumin Procalcitonin Urine Color Urine Appearance Urine pH Ur Specific [place] Urine Protein Urine Glucose (UA) Urine Ketones Urine Blood Urine Nitrite Ur Leukocyte Esterase Vancomycin Trough IgG Total IgA Total IgM PAYAL Interpretation Heparin Dep Plt Ab OD Hep-Induced Plt Ab Devi Coronavirus (PCR) Influenza Type A (PCR) Influenza Type B (PCR) RSV RNA Qual (PCR) Blood Type Antibody Screen 09/10/20 09/10/20 09/10/20 11:43 16:22 21:02 WBC RBC Hgb Hct MCV MCH MCHC RDW Plt Count MPV Immature Gran % (Auto) Neut % (Auto) Lymph % (Auto) [place] % (Auto) Eos % (Auto) Baso % (Auto) Lymph # (Auto) [place] # (Auto) Eos # (Auto) Baso # (Auto) Abs Immat Gran (auto) Absolute Neuts (auto) Absolute Nucleated RBC Nucleated RBC % (auto) Smear Tech's Comments ESR PT INR APTT Fibrinogen D-Dimer Hep-Ind Thrombocytop Com Sodium Potassium Chloride Carbon Dioxide Anion Gap BUN Creatinine Estim Creat Clear Calc Estimated GFR POC Glucose 134 H 132 H 237 H Random Glucose Lactic Acid Calcium Magnesium Ferritin Total Bilirubin Direct Bilirubin AST ALT Alkaline Phosphatase Lactate Dehydrogenase C-Reactive Protein B-Natriuretic Peptide Total Protein Albumin Procalcitonin Urine Color Urine Appearance Urine pH Ur Specific [place] Urine Protein Urine Glucose (UA) Urine Ketones Urine Blood Urine Nitrite Ur Leukocyte Esterase Vancomycin Trough IgG Total IgA Total IgM PAYAL Interpretation Heparin Dep Plt Ab OD Hep-Induced Plt Ab Devi Coronavirus (PCR) Influenza Type A (PCR) Influenza Type B (PCR) RSV RNA Qual (PCR) Blood Type Antibody Screen 09/11/20 09/11/20 09/11/20 00:16 06:02 07:31 WBC RBC Hgb Hct MCV MCH MCHC RDW Plt Count MPV Immature Gran % (Auto) Neut % (Auto) Lymph % (Auto) [place] % (Auto) Eos % (Auto) Baso % (Auto) Lymph # (Auto) [place] # (Auto) Eos # (Auto) Baso # (Auto) Abs Immat Gran (auto) Absolute Neuts (auto) Absolute Nucleated RBC Nucleated RBC % (auto) Smear Tech's Comments ESR PT INR APTT Fibrinogen D-Dimer Hep-Ind Thrombocytop Com Sodium 136 Potassium 4.5 Chloride 100 Carbon Dioxide 31 H Anion Gap 10 L BUN 14 Creatinine 1.16 Estim Creat Clear Calc 96.4 Estimated GFR > 60 POC Glucose 155 H Random Glucose 159 H Lactic Acid Calcium 8.3 L Magnesium Ferritin Total Bilirubin Direct Bilirubin AST ALT Alkaline Phosphatase Lactate Dehydrogenase C-Reactive Protein B-Natriuretic Peptide Total Protein Albumin Procalcitonin Urine Color Urine Appearance Urine pH Ur Specific [place] Urine Protein Urine Glucose (UA) Urine Ketones Urine Blood Urine Nitrite Ur Leukocyte Esterase Vancomycin Trough 15.5 IgG Total IgA Total IgM PAYAL Interpretation Heparin Dep Plt Ab OD Hep-Induced Plt Ab Devi Coronavirus (PCR) Influenza Type A (PCR) Influenza Type B (PCR) RSV RNA Qual (PCR) Blood Type Antibody Screen 09/11/20 09/11/20 09/11/20 11:17 16:05 20:22 WBC RBC Hgb Hct MCV MCH MCHC RDW Plt Count MPV Immature Gran % (Auto) Neut % (Auto) Lymph % (Auto) [place] % (Auto) Eos % (Auto) Baso % (Auto) Lymph # (Auto) [place] # (Auto) Eos # (Auto) Baso # (Auto) Abs Immat Gran (auto) Absolute Neuts (auto) Absolute Nucleated RBC Nucleated RBC % (auto) Smear Tech's Comments ESR PT INR APTT Fibrinogen D-Dimer Hep-Ind Thrombocytop Com Sodium Potassium Chloride Carbon Dioxide Anion Gap BUN Creatinine Estim Creat Clear Calc Estimated GFR POC Glucose 249 H 274 H 273 H Random Glucose Lactic Acid Calcium Magnesium Ferritin Total Bilirubin Direct Bilirubin AST ALT Alkaline Phosphatase Lactate Dehydrogenase C-Reactive Protein B-Natriuretic Peptide Total Protein Albumin Procalcitonin Urine Color Urine Appearance Urine pH Ur Specific [place] Urine Protein Urine Glucose (UA) Urine Ketones Urine Blood Urine Nitrite Ur Leukocyte Esterase Vancomycin Trough IgG Total IgA Total IgM PAYAL Interpretation Heparin Dep Plt Ab OD Hep-Induced Plt Ab Devi Coronavirus (PCR) Influenza Type A (PCR) Influenza Type B (PCR) RSV RNA Qual (PCR) Blood Type Antibody Screen 09/12/20 09/12/20 09/12/20 05:55 05:55 07:17 WBC 10.5 RBC 3.64 L Hgb 11.9 L Hct 34.9 L MCV 95.9 MCH 32.7 MCHC 34.1 RDW 11.0 Plt Count 82 L D MPV 10.9 Immature Gran % (Auto) 4.8 H Neut % (Auto) 58.6 Lymph % (Auto) 24.5 [place] % (Auto) 8.7 Eos % (Auto) 2.7 Baso % (Auto) 0.7 Lymph # (Auto) 2.6 [place] # (Auto) 0.9 Eos # (Auto) 0.3 Baso # (Auto) 0.1 Abs Immat Gran (auto) 0.50 H Absolute Neuts (auto) 6.2 Absolute Nucleated RBC 0.000 Nucleated RBC % (auto) 0.0 Smear Tech's Comments ESR PT INR APTT Fibrinogen D-Dimer Hep-Ind Thrombocytop Com Sodium 138 Potassium 4.2 Chloride 103 Carbon Dioxide 25 Anion Gap 14 BUN 12 Creatinine 0.90 Estim Creat Clear Calc 124.2 Estimated GFR > 60 POC Glucose 107 Random Glucose 119 H Lactic Acid Calcium 8.4 Magnesium Ferritin Total Bilirubin Direct Bilirubin AST ALT Alkaline Phosphatase Lactate Dehydrogenase C-Reactive Protein B-Natriuretic Peptide Total Protein Albumin Procalcitonin Urine Color Urine Appearance Urine pH Ur Specific [place] Urine Protein Urine Glucose (UA) Urine Ketones Urine Blood Urine Nitrite Ur Leukocyte Esterase Vancomycin Trough IgG Total IgA Total IgM PAYAL Interpretation Heparin Dep Plt Ab OD Hep-Induced Plt Ab Devi Coronavirus (PCR) Influenza Type A (PCR) Influenza Type B (PCR) RSV RNA Qual (PCR) Blood Type Antibody Screen 09/12/20 09/12/20 09/12/20 11:06 16:20 20:17 WBC RBC Hgb Hct MCV MCH MCHC RDW Plt Count MPV Immature Gran % (Auto) Neut % (Auto) Lymph % (Auto) [place] % (Auto) Eos % (Auto) Baso % (Auto) Lymph # (Auto) [place] # (Auto) Eos # (Auto) Baso # (Auto) Abs Immat Gran (auto) Absolute Neuts (auto) Absolute Nucleated RBC Nucleated RBC % (auto) Smear Tech's Comments ESR PT INR APTT Fibrinogen D-Dimer Hep-Ind Thrombocytop Com Sodium Potassium Chloride Carbon Dioxide Anion Gap BUN Creatinine Estim Creat Clear Calc Estimated GFR POC Glucose 227 H 272 H 257 H Random Glucose Lactic Acid Calcium Magnesium Ferritin Total Bilirubin Direct Bilirubin AST ALT Alkaline Phosphatase Lactate Dehydrogenase C-Reactive Protein B-Natriuretic Peptide Total Protein Albumin Procalcitonin Urine Color Urine Appearance Urine pH Ur Specific [place] Urine Protein Urine Glucose (UA) Urine Ketones Urine Blood Urine Nitrite Ur Leukocyte Esterase Vancomycin Trough IgG Total IgA Total IgM PAYAL Interpretation Heparin Dep Plt Ab OD Hep-Induced Plt Ab Devi Coronavirus (PCR) Influenza Type A (PCR) Influenza Type B (PCR) RSV RNA Qual (PCR) Blood Type Antibody Screen 09/13/20 09/13/20 09/13/20 00:16 06:39 06:39 WBC 11.7 H RBC 3.52 L Hgb 11.4 L Hct 33.5 L MCV 95.2 MCH 32.4 MCHC 34.0 RDW 11.3 Plt Count 59 L D MPV 12.0 Immature Gran % (Auto) 4.7 H Neut % (Auto) 63.8 Lymph % (Auto) 21.2 [place] % (Auto) 7.9 Eos % (Auto) 2.0 Baso % (Auto) 0.4 Lymph # (Auto) 2.5 [place] # (Auto) 0.9 Eos # (Auto) 0.2 Baso # (Auto) 0.1 Abs Immat Gran (auto) 0.55 H Absolute Neuts (auto) 7.4 Absolute Nucleated RBC 0.000 Nucleated RBC % (auto) 0.0 Smear Tech's Comments ESR PT INR APTT Fibrinogen D-Dimer Hep-Ind Thrombocytop Com Sodium 135 Potassium 4.0 Chloride 100 Carbon Dioxide 27 Anion Gap 12 BUN 12 Creatinine 0.87 Estim Creat Clear Calc 128.5 Estimated GFR > 60 POC Glucose Random Glucose 84 Lactic Acid Calcium 8.3 L Magnesium Ferritin Total Bilirubin Direct Bilirubin AST ALT Alkaline Phosphatase Lactate Dehydrogenase C-Reactive Protein B-Natriuretic Peptide Total Protein Albumin Procalcitonin Urine Color Urine Appearance Urine pH Ur Specific [place] Urine Protein Urine Glucose (UA) Urine Ketones Urine Blood Urine Nitrite Ur Leukocyte Esterase Vancomycin Trough 20.3 H IgG Total IgA Total IgM PAYAL Interpretation Heparin Dep Plt Ab OD Hep-Induced Plt Ab Devi Coronavirus (PCR) Influenza Type A (PCR) Influenza Type B (PCR) RSV RNA Qual (PCR) Blood Type Antibody Screen 09/13/20 09/13/20 09/13/20 07:07 11:36 16:15 WBC RBC Hgb Hct MCV MCH MCHC RDW Plt Count MPV Immature Gran % (Auto) Neut % (Auto) Lymph % (Auto) [place] % (Auto) Eos % (Auto) Baso % (Auto) Lymph # (Auto) [place] # (Auto) Eos # (Auto) Baso # (Auto) Abs Immat Gran (auto) Absolute Neuts (auto) Absolute Nucleated RBC Nucleated RBC % (auto) Smear Tech's Comments ESR PT INR APTT Fibrinogen D-Dimer Hep-Ind Thrombocytop Com Sodium Potassium Chloride Carbon Dioxide Anion Gap BUN Creatinine Estim Creat Clear Calc Estimated GFR POC Glucose 101 224 H 276 H Random Glucose Lactic Acid Calcium Magnesium Ferritin Total Bilirubin Direct Bilirubin AST ALT Alkaline Phosphatase Lactate Dehydrogenase C-Reactive Protein B-Natriuretic Peptide Total Protein Albumin Procalcitonin Urine Color Urine Appearance Urine pH Ur Specific [place] Urine Protein Urine Glucose (UA) Urine Ketones Urine Blood Urine Nitrite Ur Leukocyte Esterase Vancomycin Trough IgG Total IgA Total IgM PAYAL Interpretation Heparin Dep Plt Ab OD Hep-Induced Plt Ab Devi Coronavirus (PCR) Influenza Type A (PCR) Influenza Type B (PCR) RSV RNA Qual (PCR) Blood Type Antibody Screen 09/13/20 09/13/20 09/13/20 16:54 16:54 16:54 WBC RBC Hgb Hct MCV MCH MCHC RDW Plt Count MPV Immature Gran % (Auto) Neut % (Auto) Lymph % (Auto) [place] % (Auto) Eos % (Auto) Baso % (Auto) Lymph # (Auto) [place] # (Auto) Eos # (Auto) Baso # (Auto) Abs Immat Gran (auto) Absolute Neuts (auto) Absolute Nucleated RBC Nucleated RBC % (auto) Smear Tech's Comments ESR PT 13.6 H INR 1.1 APTT 38.3 H Fibrinogen > 700 H D-Dimer 482 Hep-Ind Thrombocytop Com Sodium Potassium Chloride Carbon Dioxide Anion Gap BUN Creatinine Estim Creat Clear Calc Estimated GFR POC Glucose Random Glucose Lactic Acid Calcium Magnesium Ferritin Total Bilirubin Direct Bilirubin AST ALT Alkaline Phosphatase Lactate Dehydrogenase 170 C-Reactive Protein B-Natriuretic Peptide Total Protein Albumin Procalcitonin Urine Color Urine Appearance Urine pH Ur Specific [place] Urine Protein Urine Glucose (UA) Urine Ketones Urine Blood Urine Nitrite Ur Leukocyte Esterase Vancomycin Trough IgG Total 1568 H IgA Total 678 H IgM 36 L PAYAL Interpretation SEE NOTE Heparin Dep Plt Ab OD Hep-Induced Plt Ab Devi Coronavirus (PCR) Influenza Type A (PCR) Influenza Type B (PCR) RSV RNA Qual (PCR) Blood Type Antibody Screen 09/13/20 09/13/20 09/13/20 16:54 20:09 20:14 WBC RBC Hgb Hct MCV MCH MCHC RDW Plt Count MPV Immature Gran % (Auto) Neut % (Auto) Lymph % (Auto) [place] % (Auto) Eos % (Auto) Baso % (Auto) Lymph # (Auto) [place] # (Auto) Eos # (Auto) Baso # (Auto) Abs Immat Gran (auto) Absolute Neuts (auto) Absolute Nucleated RBC Nucleated RBC % (auto) Smear Tech's Comments ESR PT INR APTT Fibrinogen D-Dimer Hep-Ind Thrombocytop Com See Below Sodium Potassium Chloride Carbon Dioxide Anion Gap BUN Creatinine Estim Creat Clear Calc Estimated GFR POC Glucose 233 H Random Glucose Lactic Acid Calcium Magnesium Ferritin Total Bilirubin Direct Bilirubin AST ALT Alkaline Phosphatase Lactate Dehydrogenase C-Reactive Protein B-Natriuretic Peptide Total Protein Albumin Procalcitonin Urine Color Urine Appearance Urine pH Ur Specific [place] Urine Protein Urine Glucose (UA) Urine Ketones Urine Blood Urine Nitrite Ur Leukocyte Esterase Vancomycin Trough 13.6 IgG Total IgA Total IgM PAYAL Interpretation Heparin Dep Plt Ab OD 0.065 Hep-Induced Plt Ab Devi NEGATIVE Coronavirus (PCR) Influenza Type A (PCR) Influenza Type B (PCR) RSV RNA Qual (PCR) Blood Type Antibody Screen 09/14/20 09/14/20 09/14/20 06:16 06:16 07:44 WBC 9.9 RBC 3.56 L Hgb 11.7 L Hct 34.1 L MCV 95.8 MCH 32.9 MCHC 34.3 RDW 11.4 Plt Count 41 L D MPV 12.5 H Immature Gran % (Auto) 3.9 H Neut % (Auto) 60.9 Lymph % (Auto) 24.7 [place] % (Auto) 8.2 Eos % (Auto) 2.0 Baso % (Auto) 0.3 Lymph # (Auto) 2.5 [place] # (Auto) 0.8 Eos # (Auto) 0.2 Baso # (Auto) 0.0 Abs Immat Gran (auto) 0.39 H Absolute Neuts (auto) 6.0 Absolute Nucleated RBC 0.020 H Nucleated RBC % (auto) 0.2 Smear Tech's Comments ESR PT INR APTT Fibrinogen D-Dimer Hep-Ind Thrombocytop Com Sodium 137 Potassium 4.0 Chloride 100 Carbon Dioxide 26 Anion Gap 15 BUN 15 Creatinine 0.91 Estim Creat Clear Calc 122.9 Estimated GFR > 60 POC Glucose 119 H Random Glucose 120 H D Lactic Acid Calcium 8.3 L Magnesium Ferritin Total Bilirubin Direct Bilirubin AST ALT Alkaline Phosphatase Lactate Dehydrogenase C-Reactive Protein B-Natriuretic Peptide Total Protein Albumin Procalcitonin Urine Color Urine Appearance Urine pH Ur Specific [place] Urine Protein Urine Glucose (UA) Urine Ketones Urine Blood Urine Nitrite Ur Leukocyte Esterase Vancomycin Trough IgG Total IgA Total IgM PAYAL Interpretation Heparin Dep Plt Ab OD Hep-Induced Plt Ab Devi Coronavirus (PCR) Influenza Type A (PCR) Influenza Type B (PCR) RSV RNA Qual (PCR) Blood Type Antibody Screen 09/14/20 09/14/20 09/14/20 11:39 16:56 20:00 WBC RBC Hgb Hct MCV MCH MCHC RDW Plt Count MPV Immature Gran % (Auto) Neut % (Auto) Lymph % (Auto) [place] % (Auto) Eos % (Auto) Baso % (Auto) Lymph # (Auto) [place] # (Auto) Eos # (Auto) Baso # (Auto) Abs Immat Gran (auto) Absolute Neuts (auto) Absolute Nucleated RBC Nucleated RBC % (auto) Smear Tech's Comments ESR PT INR APTT Fibrinogen D-Dimer Hep-Ind Thrombocytop Com Sodium Potassium Chloride Carbon Dioxide Anion Gap BUN Creatinine Estim Creat Clear Calc Estimated GFR POC Glucose 192 H 172 H Random Glucose Lactic Acid Calcium Magnesium Ferritin Total Bilirubin Direct Bilirubin AST ALT Alkaline Phosphatase Lactate Dehydrogenase C-Reactive Protein B-Natriuretic Peptide Total Protein Albumin Procalcitonin Urine Color Urine Appearance Urine pH Ur Specific [place] Urine Protein Urine Glucose (UA) Urine Ketones Urine Blood Urine Nitrite Ur Leukocyte Esterase Vancomycin Trough 14.2 IgG Total IgA Total IgM PAYAL Interpretation Heparin Dep Plt Ab OD Hep-Induced Plt Ab Devi Coronavirus (PCR) Influenza Type A (PCR) Influenza Type B (PCR) RSV RNA Qual (PCR) Blood Type Antibody Screen 09/14/20 09/15/20 09/15/20 20:35 07:12 07:12 WBC 10.2 RBC 3.61 L Hgb 11.9 L Hct 34.8 L MCV 96.4 MCH 33.0 MCHC 34.2 RDW 11.5 Plt Count 37 L MPV 12.6 H Immature Gran % (Auto) 3.0 H Neut % (Auto) 68.4 Lymph % (Auto) 17.7 L [place] % (Auto) 8.5 Eos % (Auto) 2.0 Baso % (Auto) 0.4 Lymph # (Auto) 1.8 [place] # (Auto) 0.9 Eos # (Auto) 0.2 Baso # (Auto) 0.0 Abs Immat Gran (auto) 0.31 H Absolute Neuts (auto) 7.0 Absolute Nucleated RBC 0.000 Nucleated RBC % (auto) 0.0 Smear Tech's Comments ESR PT INR APTT Fibrinogen D-Dimer Hep-Ind Thrombocytop Com Sodium 137 Potassium 4.1 Chloride 101 Carbon Dioxide 26 Anion Gap 14 BUN 15 Creatinine 0.91 Estim Creat Clear Calc 122.9 Estimated GFR > 60 POC Glucose 238 H Random Glucose 126 H Lactic Acid Calcium 8.4 Magnesium Ferritin Total Bilirubin Direct Bilirubin AST ALT Alkaline Phosphatase Lactate Dehydrogenase C-Reactive Protein B-Natriuretic Peptide Total Protein Albumin Procalcitonin Urine Color Urine Appearance Urine pH Ur Specific [place] Urine Protein Urine Glucose (UA) Urine Ketones Urine Blood Urine Nitrite Ur Leukocyte Esterase Vancomycin Trough IgG Total IgA Total IgM PAYAL Interpretation Heparin Dep Plt Ab OD Hep-Induced Plt Ab Devi Coronavirus (PCR) Influenza Type A (PCR) Influenza Type B (PCR) RSV RNA Qual (PCR) Blood Type Antibody Screen 09/15/20 09/15/20 09/15/20 07:22 12:01 16:20 WBC RBC Hgb Hct MCV MCH MCHC RDW Plt Count MPV Immature Gran % (Auto) Neut % (Auto) Lymph % (Auto) [place] % (Auto) Eos % (Auto) Baso % (Auto) Lymph # (Auto) [place] # (Auto) Eos # (Auto) Baso # (Auto) Abs Immat Gran (auto) Absolute Neuts (auto) Absolute Nucleated RBC Nucleated RBC % (auto) Smear Tech's Comments ESR PT INR APTT Fibrinogen D-Dimer Hep-Ind Thrombocytop Com Sodium Potassium Chloride Carbon Dioxide Anion Gap BUN Creatinine Estim Creat Clear Calc Estimated GFR POC Glucose 147 H 207 H 226 H Random Glucose Lactic Acid Calcium Magnesium Ferritin Total Bilirubin Direct Bilirubin AST ALT Alkaline Phosphatase Lactate Dehydrogenase C-Reactive Protein B-Natriuretic Peptide Total Protein Albumin Procalcitonin Urine Color Urine Appearance Urine pH Ur Specific [place] Urine Protein Urine Glucose (UA) Urine Ketones Urine Blood Urine Nitrite Ur Leukocyte Esterase Vancomycin Trough IgG Total IgA Total IgM PAYAL Interpretation Heparin Dep Plt Ab OD Hep-Induced Plt Ab Devi Coronavirus (PCR) Influenza Type A (PCR) Influenza Type B (PCR) RSV RNA Qual (PCR) Blood Type Antibody Screen 09/15/20 09/16/20 09/16/20 20:13 06:58 06:58 WBC 11.4 H RBC 3.61 L Hgb 11.9 L Hct 34.4 L MCV 95.3 MCH 33.0 MCHC 34.6 RDW 11.5 Plt Count 31 L MPV Not Reportable Immature Gran % (Auto) 1.2 H Neut % (Auto) 74.1 H Lymph % (Auto) 16.1 L [place] % (Auto) 7.1 Eos % (Auto) 1.1 Baso % (Auto) 0.4 Lymph # (Auto) 1.8 [place] # (Auto) 0.8 Eos # (Auto) 0.1 Baso # (Auto) 0.0 Abs Immat Gran (auto) 0.14 H Absolute Neuts (auto) 8.4 H Absolute Nucleated RBC 0.000 Nucleated RBC % (auto) 0.0 Smear Tech's Comments ESR PT INR APTT Fibrinogen D-Dimer Hep-Ind Thrombocytop Com Sodium 135 Potassium 4.0 Chloride 100 Carbon Dioxide 27 Anion Gap 12 BUN 17 H Creatinine 0.97 Estim Creat Clear Calc 115.3 Estimated GFR > 60 POC Glucose 260 H Random Glucose 130 H Lactic Acid Calcium 8.2 L Magnesium Ferritin Total Bilirubin Direct Bilirubin AST ALT Alkaline Phosphatase Lactate Dehydrogenase C-Reactive Protein B-Natriuretic Peptide Total Protein Albumin Procalcitonin Urine Color Urine Appearance Urine pH Ur Specific [place] Urine Protein Urine Glucose (UA) Urine Ketones Urine Blood Urine Nitrite Ur Leukocyte Esterase Vancomycin Trough IgG Total IgA Total IgM PAYAL Interpretation Heparin Dep Plt Ab OD Hep-Induced Plt Ab Devi Coronavirus (PCR) Influenza Type A (PCR) Influenza Type B (PCR) RSV RNA Qual (PCR) Blood Type Antibody Screen 09/16/20 09/16/20 09/16/20 06:58 06:58 07:19 WBC RBC Hgb Hct MCV MCH MCHC RDW Plt Count MPV Immature Gran % (Auto) Neut % (Auto) Lymph % (Auto) [place] % (Auto) Eos % (Auto) Baso % (Auto) Lymph # (Auto) [place] # (Auto) Eos # (Auto) Baso # (Auto) Abs Immat Gran (auto) Absolute Neuts (auto) Absolute Nucleated RBC Nucleated RBC % (auto) Smear Tech's Comments ESR PT 15.1 H INR 1.3 H APTT Fibrinogen D-Dimer Hep-Ind Thrombocytop Com Sodium Potassium Chloride Carbon Dioxide Anion Gap BUN Creatinine Estim Creat Clear Calc Estimated GFR POC Glucose 134 H Random Glucose Lactic Acid Calcium Magnesium Ferritin Total Bilirubin Direct Bilirubin AST ALT Alkaline Phosphatase Lactate Dehydrogenase C-Reactive Protein B-Natriuretic Peptide Total Protein Albumin Procalcitonin Urine Color Urine Appearance Urine pH Ur Specific [place] Urine Protein Urine Glucose (UA) Urine Ketones Urine Blood Urine Nitrite Ur Leukocyte Esterase Vancomycin Trough 15.5 IgG Total IgA Total IgM PAYAL Interpretation Heparin Dep Plt Ab OD Hep-Induced Plt Ab Devi Coronavirus (PCR) Influenza Type A (PCR) Influenza Type B (PCR) RSV RNA Qual (PCR) Blood Type Antibody Screen 09/16/20 09/16/20 09/16/20 11:18 16:13 17:46 WBC RBC Hgb Hct MCV MCH MCHC RDW Plt Count MPV Immature Gran % (Auto) Neut % (Auto) Lymph % (Auto) [place] % (Auto) Eos % (Auto) Baso % (Auto) Lymph # (Auto) [place] # (Auto) Eos # (Auto) Baso # (Auto) Abs Immat Gran (auto) Absolute Neuts (auto) Absolute Nucleated RBC Nucleated RBC % (auto) Smear Tech's Comments ESR PT INR APTT Fibrinogen D-Dimer Hep-Ind Thrombocytop Com Sodium Potassium Chloride Carbon Dioxide Anion Gap BUN Creatinine Estim Creat Clear Calc Estimated GFR POC Glucose 112 224 H 236 H Random Glucose Lactic Acid Calcium Magnesium Ferritin Total Bilirubin Direct Bilirubin AST ALT Alkaline Phosphatase Lactate Dehydrogenase C-Reactive Protein B-Natriuretic Peptide Total Protein Albumin Procalcitonin Urine Color Urine Appearance Urine pH Ur Specific [place] Urine Protein Urine Glucose (UA) Urine Ketones Urine Blood Urine Nitrite Ur Leukocyte Esterase Vancomycin Trough IgG Total IgA Total IgM PAYAL Interpretation Heparin Dep Plt Ab OD Hep-Induced Plt Ab Devi Coronavirus (PCR) Influenza Type A (PCR) Influenza Type B (PCR) RSV RNA Qual (PCR) Blood Type Antibody Screen 09/16/20 09/17/20 09/17/20 20:57 05:49 05:49 WBC 12.8 H RBC 3.63 L Hgb 12.1 L Hct 35.1 L MCV 96.7 MCH 33.3 H MCHC 34.5 RDW 11.9 Plt Count 24 L MPV Not Reportable Immature Gran % (Auto) 1.1 H Neut % (Auto) 81.3 H Lymph % (Auto) 9.6 L [place] % (Auto) 7.3 Eos % (Auto) 0.5 Baso % (Auto) 0.2 Lymph # (Auto) 1.2 [place] # (Auto) 0.9 Eos # (Auto) 0.1 Baso # (Auto) 0.0 Abs Immat Gran (auto) 0.14 H Absolute Neuts (auto) 10.4 H Absolute Nucleated RBC 0.000 Nucleated RBC % (auto) 0.0 Smear Tech's Comments VERIFIED ESR PT 15.0 H INR 1.3 H APTT Fibrinogen D-Dimer Hep-Ind Thrombocytop Com Sodium Potassium Chloride Carbon Dioxide Anion Gap BUN Creatinine Estim Creat Clear Calc Estimated GFR POC Glucose 283 H Random Glucose Lactic Acid Calcium Magnesium Ferritin Total Bilirubin Direct Bilirubin AST ALT Alkaline Phosphatase Lactate Dehydrogenase C-Reactive Protein B-Natriuretic Peptide Total Protein Albumin Procalcitonin Urine Color Urine Appearance Urine pH Ur Specific [place] Urine Protein Urine Glucose (UA) Urine Ketones Urine Blood Urine Nitrite Ur Leukocyte Esterase Vancomycin Trough IgG Total IgA Total IgM PAYAL Interpretation Heparin Dep Plt Ab OD Hep-Induced Plt Ab Devi Coronavirus (PCR) Influenza Type A (PCR) Influenza Type B (PCR) RSV RNA Qual (PCR) Blood Type Antibody Screen 09/17/20 09/17/20 09/17/20 05:49 07:33 08:11 WBC RBC Hgb Hct MCV MCH MCHC RDW Plt Count MPV Immature Gran % (Auto) Neut % (Auto) Lymph % (Auto) [place] % (Auto) Eos % (Auto) Baso % (Auto) Lymph # (Auto) [place] # (Auto) Eos # (Auto) Baso # (Auto) Abs Immat Gran (auto) Absolute Neuts (auto) Absolute Nucleated RBC Nucleated RBC % (auto) Smear Tech's Comments ESR PT INR APTT Fibrinogen D-Dimer Hep-Ind Thrombocytop Com Sodium 136 Potassium 4.0 Chloride 101 Carbon Dioxide 24 Anion Gap 15 BUN 25 H Creatinine 0.96 Estim Creat Clear Calc 116.5 Estimated GFR > 60 POC Glucose 172 H Random Glucose 197 H D Lactic Acid Calcium 8.7 D Magnesium Ferritin Total Bilirubin Direct Bilirubin AST ALT Alkaline Phosphatase Lactate Dehydrogenase C-Reactive Protein B-Natriuretic Peptide Total Protein Albumin Procalcitonin Urine Color Urine Appearance Urine pH Ur Specific [place] Urine Protein Urine Glucose (UA) Urine Ketones Urine Blood Urine Nitrite Ur Leukocyte Esterase Vancomycin Trough IgG Total IgA Total IgM PAYAL Interpretation Heparin Dep Plt Ab OD Hep-Induced Plt Ab Devi Coronavirus (PCR) Influenza Type A (PCR) Influenza Type B (PCR) RSV RNA Qual (PCR) Blood Type O Positive Antibody Screen NEGATIVE 09/17/20 09/17/20 09/17/20 11:09 16:37 18:56 WBC RBC Hgb Hct MCV MCH MCHC RDW Plt Count MPV Immature Gran % (Auto) Neut % (Auto) Lymph % (Auto) [place] % (Auto) Eos % (Auto) Baso % (Auto) Lymph # (Auto) [place] # (Auto) Eos # (Auto) Baso # (Auto) Abs Immat Gran (auto) Absolute Neuts (auto) Absolute Nucleated RBC Nucleated RBC % (auto) Smear Tech's Comments ESR PT INR APTT Fibrinogen D-Dimer Hep-Ind Thrombocytop Com Sodium Potassium Chloride Carbon Dioxide Anion Gap BUN Creatinine Estim Creat Clear Calc Estimated GFR POC Glucose 147 H 115 Random Glucose Lactic Acid Calcium Magnesium Ferritin Total Bilirubin Direct Bilirubin AST ALT Alkaline Phosphatase Lactate Dehydrogenase C-Reactive Protein B-Natriuretic Peptide Total Protein Albumin Procalcitonin Urine Color Urine Appearance Urine pH Ur Specific [place] Urine Protein Urine Glucose (UA) Urine Ketones Urine Blood Urine Nitrite Ur Leukocyte Esterase Vancomycin Trough 15.9 IgG Total IgA Total IgM PAYAL Interpretation Heparin Dep Plt Ab OD Hep-Induced Plt Ab Devi Coronavirus (PCR) Influenza Type A (PCR) Influenza Type B (PCR) RSV RNA Qual (PCR) Blood Type Antibody Screen 09/17/20 09/18/20 09/18/20 20:58 06:02 06:02 WBC 9.3 RBC 3.62 L Hgb 11.6 L Hct 34.7 L MCV 95.9 MCH 32.0 MCHC 33.4 RDW 11.7 Plt Count 28 L MPV Not Reportable Immature Gran % (Auto) Neut % (Auto) Lymph % (Auto) [place] % (Auto) Eos % (Auto) Baso % (Auto) Lymph # (Auto) [place] # (Auto) Eos # (Auto) Baso # (Auto) Abs Immat Gran (auto) Absolute Neuts (auto) Absolute Nucleated RBC 0.000 Nucleated RBC % (auto) 0.0 Smear Tech's Comments ESR PT INR APTT Fibrinogen D-Dimer Hep-Ind Thrombocytop Com Sodium 135 Potassium 4.2 Chloride 100 Carbon Dioxide 24 Anion Gap 15 BUN 24 H Creatinine 1.01 Estim Creat Clear Calc 110.7 Estimated GFR > 60 POC Glucose 205 H Random Glucose 290 H D Lactic Acid Calcium 8.3 L Magnesium Ferritin Total Bilirubin Direct Bilirubin AST ALT Alkaline Phosphatase Lactate Dehydrogenase C-Reactive Protein B-Natriuretic Peptide Total Protein Albumin Procalcitonin Urine Color Urine Appearance Urine pH Ur Specific [place] Urine Protein Urine Glucose (UA) Urine Ketones Urine Blood Urine Nitrite Ur Leukocyte Esterase Vancomycin Trough IgG Total IgA Total IgM PAYAL Interpretation Heparin Dep Plt Ab OD Hep-Induced Plt Ab Devi Coronavirus (PCR) Influenza Type A (PCR) Influenza Type B (PCR) RSV RNA Qual (PCR) Blood Type Antibody Screen 09/18/20 09/18/20 09/18/20 07:19 11:55 16:18 WBC RBC Hgb Hct MCV MCH MCHC RDW Plt Count MPV Immature Gran % (Auto) Neut % (Auto) Lymph % (Auto) [place] % (Auto) Eos % (Auto) Baso % (Auto) Lymph # (Auto) [place] # (Auto) Eos # (Auto) Baso # (Auto) Abs Immat Gran (auto) Absolute Neuts (auto) Absolute Nucleated RBC Nucleated RBC % (auto) Smear Tech's Comments ESR PT INR APTT Fibrinogen D-Dimer Hep-Ind Thrombocytop Com Sodium Potassium Chloride Carbon Dioxide Anion Gap BUN Creatinine Estim Creat Clear Calc Estimated GFR POC Glucose 283 H 344 H 384 H* Random Glucose Lactic Acid Calcium Magnesium Ferritin Total Bilirubin Direct Bilirubin AST ALT Alkaline Phosphatase Lactate Dehydrogenase C-Reactive Protein B-Natriuretic Peptide Total Protein Albumin Procalcitonin Urine Color Urine Appearance Urine pH Ur Specific [place] Urine Protein Urine Glucose (UA) Urine Ketones Urine Blood Urine Nitrite Ur Leukocyte Esterase Vancomycin Trough IgG Total IgA Total IgM PAYAL Interpretation Heparin Dep Plt Ab OD Hep-Induced Plt Ab Devi Coronavirus (PCR) Influenza Type A (PCR) Influenza Type B (PCR) RSV RNA Qual (PCR) Blood Type Antibody Screen 09/18/20 09/19/2009/19/21 20:18 06:18 06:18 WBC 14.8 H RBC 3.38 L Hgb 11.0 L Hct 31.8 L MCV 94.1 MCH 32.5 MCHC 34.6 RDW 11.6 Plt Count 26 L MPV Not Reportable Immature Gran % (Auto) Neut % (Auto) Lymph % (Auto) [place] % (Auto) Eos % (Auto) Baso % (Auto) Lymph # (Auto) [place] # (Auto) Eos # (Auto) Baso # (Auto) Abs Immat Gran (auto) Absolute Neuts (auto) Absolute Nucleated RBC 0.000 Nucleated RBC % (auto) 0.0 Smear Tech's Comments ESR PT INR APTT Fibrinogen D-Dimer Hep-Ind Thrombocytop Com Sodium Potassium Chloride Carbon Dioxide Anion Gap BUN Creatinine Estim Creat Clear Calc Estimated GFR POC Glucose 348 H Random Glucose Lactic Acid Calcium Magnesium Ferritin Total Bilirubin Direct Bilirubin AST ALT Alkaline Phosphatase Lactate Dehydrogenase C-Reactive Protein B-Natriuretic Peptide Total Protein Albumin Procalcitonin Urine Color Urine Appearance Urine pH Ur Specific [place] Urine Protein Urine Glucose (UA) Urine Ketones Urine Blood Urine Nitrite Ur Leukocyte Esterase Vancomycin Trough 12.7 IgG Total IgA Total IgM PAYAL Interpretation Heparin Dep Plt Ab OD Hep-Induced Plt Ab Devi Coronavirus (PCR) Influenza Type A (PCR) Influenza Type B (PCR) RSV RNA Qual (PCR) Blood Type Antibody Screen 09/19/20 09/19/20 09/19/20 06:18 07:33 11:13 WBC RBC Hgb Hct MCV MCH MCHC RDW Plt Count MPV Immature Gran % (Auto) Neut % (Auto) Lymph % (Auto) [place] % (Auto) Eos % (Auto) Baso % (Auto) Lymph # (Auto) [place] # (Auto) Eos # (Auto) Baso # (Auto) Abs Immat Gran (auto) Absolute Neuts (auto) Absolute Nucleated RBC Nucleated RBC % (auto) Smear Tech's Comments ESR PT INR APTT Fibrinogen D-Dimer Hep-Ind Thrombocytop Com Sodium 136 Potassium 4.0 Chloride 102 Carbon Dioxide 22 Anion Gap 16 BUN 30 H Creatinine 1.00 Estim Creat Clear Calc 111.8 Estimated GFR > 60 POC Glucose 281 H 344 H Random Glucose 296 H Lactic Acid Calcium 8.4 Magnesium Ferritin Total Bilirubin Direct Bilirubin AST ALT Alkaline Phosphatase Lactate Dehydrogenase C-Reactive Protein B-Natriuretic Peptide Total Protein Albumin Procalcitonin Urine Color Urine Appearance Urine pH Ur Specific [place] Urine Protein Urine Glucose (UA) Urine Ketones Urine Blood Urine Nitrite Ur Leukocyte Esterase Vancomycin Trough IgG Total IgA Total IgM PAYAL Interpretation Heparin Dep Plt Ab OD Hep-Induced Plt Ab Devi Coronavirus (PCR) Influenza Type A (PCR) Influenza Type B (PCR) RSV RNA Qual (PCR) Blood Type Antibody Screen 09/19/20 09/19/20 09/19/20 16:25 20:05 22:38 WBC RBC Hgb Hct MCV MCH MCHC RDW Plt Count MPV Immature Gran % (Auto) Neut % (Auto) Lymph % (Auto) [place] % (Auto) Eos % (Auto) Baso % (Auto) Lymph # (Auto) [place] # (Auto) Eos # (Auto) Baso # (Auto) Abs Immat Gran (auto) Absolute Neuts (auto) Absolute Nucleated RBC Nucleated RBC % (auto) Smear Tech's Comments ESR PT INR APTT Fibrinogen D-Dimer Hep-Ind Thrombocytop Com Sodium Potassium Chloride Carbon Dioxide Anion Gap BUN Creatinine Estim Creat Clear Calc Estimated GFR POC Glucose 405 H* 445 H* 408 H* Random Glucose Lactic Acid Calcium Magnesium Ferritin Total Bilirubin Direct Bilirubin AST ALT Alkaline Phosphatase Lactate Dehydrogenase C-Reactive Protein B-Natriuretic Peptide Total Protein Albumin Procalcitonin Urine Color Urine Appearance Urine pH Ur Specific [place] Urine Protein Urine Glucose (UA) Urine Ketones Urine Blood Urine Nitrite Ur Leukocyte Esterase Vancomycin Trough IgG Total IgA Total IgM PAYAL Interpretation Heparin Dep Plt Ab OD Hep-Induced Plt Ab Devi Coronavirus (PCR) Influenza Type A (PCR) Influenza Type B (PCR) RSV RNA Qual (PCR) Blood Type Antibody Screen 09/20/20 09/20/20 09/20/20 05:56 07:50 11:50 WBC 11.7 H RBC 3.40 L Hgb 11.0 L Hct 31.9 L MCV 93.8 MCH 32.4 MCHC 34.5 RDW 11.6 Plt Count 22 L MPV Not Reportable Immature Gran % (Auto) Neut % (Auto) Lymph % (Auto) [place] % (Auto) Eos % (Auto) Baso % (Auto) Lymph # (Auto) [place] # (Auto) Eos # (Auto) Baso # (Auto) Abs Immat Gran (auto) Absolute Neuts (auto) Absolute Nucleated RBC 0.000 Nucleated RBC % (auto) 0.0 Smear Tech's Comments ESR PT INR APTT Fibrinogen D-Dimer Hep-Ind Thrombocytop Com Sodium Potassium Chloride Carbon Dioxide Anion Gap BUN Creatinine Estim Creat Clear Calc Estimated GFR POC Glucose 258 H 311 H Random Glucose Lactic Acid Calcium Magnesium Ferritin Total Bilirubin Direct Bilirubin AST ALT Alkaline Phosphatase Lactate Dehydrogenase C-Reactive Protein B-Natriuretic Peptide Total Protein Albumin Procalcitonin Urine Color Urine Appearance Urine pH Ur Specific [place] Urine Protein Urine Glucose (UA) Urine Ketones Urine Blood Urine Nitrite Ur Leukocyte Esterase Vancomycin Trough IgG Total IgA Total IgM PAYAL Interpretation Heparin Dep Plt Ab OD Hep-Induced Plt Ab Devi Coronavirus (PCR) Influenza Type A (PCR) Influenza Type B (PCR) RSV RNA Qual (PCR) Blood Type Antibody Screen 09/20/20 09/20/20 09/20/20 16:36 20:21 21:33 WBC RBC Hgb Hct MCV MCH MCHC RDW Plt Count MPV Immature Gran % (Auto) Neut % (Auto) Lymph % (Auto) [place] % (Auto) Eos % (Auto) Baso % (Auto) Lymph # (Auto) [place] # (Auto) Eos # (Auto) Baso # (Auto) Abs Immat Gran (auto) Absolute Neuts (auto) Absolute Nucleated RBC Nucleated RBC % (auto) Smear Tech's Comments ESR PT INR APTT Fibrinogen D-Dimer Hep-Ind Thrombocytop Com Sodium Potassium Chloride Carbon Dioxide Anion Gap BUN Creatinine Estim Creat Clear Calc Estimated GFR POC Glucose 381 H* 431 H* 450 H* Random Glucose Lactic Acid Calcium Magnesium Ferritin Total Bilirubin Direct Bilirubin AST ALT Alkaline Phosphatase Lactate Dehydrogenase C-Reactive Protein B-Natriuretic Peptide Total Protein Albumin Procalcitonin Urine Color Urine Appearance Urine pH Ur Specific [place] Urine Protein Urine Glucose (UA) Urine Ketones Urine Blood Urine Nitrite Ur Leukocyte Esterase Vancomycin Trough IgG Total IgA Total IgM PAYAL Interpretation Heparin Dep Plt Ab OD Hep-Induced Plt Ab Devi Coronavirus (PCR) Influenza Type A (PCR) Influenza Type B (PCR) RSV RNA Qual (PCR) Blood Type Antibody Screen 09/21/20 09/21/20 07:11 07:42 WBC RBC Hgb Hct MCV MCH MCHC RDW Plt Count MPV Immature Gran % (Auto) Neut % (Auto) Lymph % (Auto) [place] % (Auto) Eos % (Auto) Baso % (Auto) Lymph # (Auto) [place] # (Auto) Eos # (Auto) Baso # (Auto) Abs Immat Gran (auto) Absolute Neuts (auto) Absolute Nucleated RBC Nucleated RBC % (auto) Smear Tech's Comments ESR PT INR APTT Fibrinogen D-Dimer Hep-Ind Thrombocytop Com Sodium Potassium Chloride Carbon Dioxide Anion Gap BUN Creatinine Estim Creat Clear Calc Estimated GFR POC Glucose 311 H Random Glucose Lactic Acid Calcium Magnesium Ferritin Total Bilirubin Direct Bilirubin AST ALT Alkaline Phosphatase Lactate Dehydrogenase C-Reactive Protein B-Natriuretic Peptide Total Protein Albumin Procalcitonin Urine Color Urine Appearance Urine pH Ur Specific [place] Urine Protein Urine Glucose (UA) Urine Ketones Urine Blood Urine Nitrite Ur Leukocyte Esterase Vancomycin Trough 11.1 IgG Total IgA Total IgM PAYAL Interpretation Heparin Dep Plt Ab OD Hep-Induced Plt Ab Devi Coronavirus (PCR) Influenza Type A (PCR) Influenza Type B (PCR) RSV RNA Qual (PCR) Blood Type Antibody Screen Discharge Plan Discharge Patient Disposition: Home Health Service Discharge Diagnosis: . Referrals: [facility] [Other] (SUPPLIES YOUR DAPTOMYCIN ANTIBITOTIC) [facility] [Outside] ([facility] WILL SUPPLY YOUR RN NEEDS FOR HOME ANTIBIOTIC) Freya Fleming MD [Physician] - (2 weeks MRSA bacteremia) Virginie Liao MD [Primary Care Provider] - Cameron Figueroa MD [Physician] - (2 weeks s/p surgery) Venessa Padgett MD [Physician] - (4 weeks for drug-induced thrombocytopenia and MGUS) Discharge Medications: New polyethylene glycol 3350 17 gram Powder In Packet 17 g PO DAILY PRN (Reason: Constipation) Qty: 30 RF: 0 docusate sodium 100 mg Capsule 100 mg PO BID Qty: 60 RF: 0 lactulose 20 gram/30 mL Solution 30 ml PO DAILY PRN (Reason: Constipation) Qty: 480 RF: 0 Continued gabapentin 600 mg tablet 600 mg PO BEDTIME RF: 0 aspirin 81 mg tablet,delayed release (DR/EC) 81 mg PO DAILY RF: 0 metformin 1,000 mg tablet 1,000 mg PO BID RF: 0 lisinopril 5 mg tablet 5 mg PO DAILY RF: 0 Victoza 3-Chet 0.6 mg/0.1 mL (18 mg/3 mL) pen injector 1.8 mg subcut DAILY RF: 0 cholecalciferol (vitamin D3) 25 mcg (1,000 unit) tablet 25 mcg PO DAILY RF: 0 bisacodyl 5 mg tablet,delayed release (DR/EC) 5 mg PO BID RF: 0 Discontinued atorvastatin 40 mg tablet 40 mg PO BEDTIME RF: 0 No Action atorvastatin 40 mg tablet 40 mg PO BEDTIME RF: 0 Tresiba FlexTouch U-100 100 unit/mL (3 mL) insulin pen subcut DAILY RF: 0 polyethylene glycol 3350 [Miralax] 17 gram powder in packet 17 g PO DAILY PRN (Reason: constipation) Qty: 30 RF: 0 cephalexin 500 mg capsule 500 mg PO QID Qty: 28 RF: 0 cephalexin 500 mg capsule 500 mg PO Q12H Qty: 14 RF: 0 Discharge Orders: Discharge Order (Routine); Ordered 09/26/20 Ordered By: Tyrell Gomez Diet: diabetic diet and low salt diet Activity on Discharge: As tolerated Stand Alone Forms: Patient Portal Discharge page Care Plan Goals: resolution of foot infection and bloodstream infection Health Concerns: MRSA bacteremia diabetic foot infection thrombocytopenia MGUS [monoclonal gammopathy of uncertain significance- an abnormal protein in your blood] Plan of Treatment: daptomycin 600 mg IV daily via PICC line, end date 10/22/20. STOP atorvastatin while on daptomycin due to drug interaction. 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 repeat immunofixation electrophoresis blood test in 6 months' time. Assessment: see above Patient Instructions: MRSA (Methicillin-Resistant Staphylococcus Aureus) (DC), Diabetic Foot Ulcers (DC), Bacteremia (DC), PICC (Peripherally Inserted Central Catheter) (DC) Discharge Date/Time: 09/26/20 21:22
--- NOTE | 2020-09-21 09:37 | MHC.CM.PN ---
PATIENT ACCEPTS [facility] OFFER. PLAN IS FOR NOON DISCHARGE VIA [facility]. PATIENT DOES NOT WANT HCP AGENT INFORMED OF THE PLAN. UNIT AND RN AWARE. IMM 09/20 IN CHART.
[2020-09-21 10:21] LABS: COVID-19 Test Negative (Negative)
[2020-09-21] MEDS: vancomycin HCL 1,000 MG in 0.9 % Sodium Chloride 250 ML 270 MG IV ×2 (10:24→21:00)
--- NOTE | 2020-09-21 10:51 | MHC.CM.PN ---
CHANGE OF PLAN. [facility] WILL NOT AUTH FOR PATIENT TO DC TO SNF. [facility] REFERRALS PLACED. MD, RN, UNIT, [facility], AND PATIENT AWARE.
[2020-09-21 10:56] LABS: Hemoglobin 11.3 g/dl (14.0-18.0); Mean Corpuscular Volume 93.6 fL (80-98)
[2020-09-21 10:58] LABS: Mean Corpuscular HGB Conc 35.3 g/dl (31.0-36.0); Red Blood Count 3.42 X10*6/uL (4.60-5.80); Red Cell Distribution Width 11.4 % (11.0-16.0); White Blood Count 10.5 X10*3/uL (4.8-10.8)
--- NOTE | 2020-09-21 11:13 | HO.PM.IMPN ---
Subjective Subjective Date of Service: 09/21/20 Interval History: Seen in f/u for post ampuation care, complicated by thrombocytopenia without bleeding complications. No other complaint ROS: Gen: no fever Resp: no sob, no cough CV: no chest, no ZIMMERMAN, no leg edema GI: No n/v, no abd pain Neuro: No confusion Physical Exam Vital Signs: Vital Signs: Last Vital Signs Temp 97.2 F 09/21/20 07:07 Pulse 55 09/21/20 07:07 Resp 17 09/21/20 07:07 BP 177/80 H 09/21/20 07:07 Pulse Ox 96 09/21/20 07:07 Body Mass Index 37.2 Const: Other: Constitutional : Alert, oriented, not in distress Neck : Normal inspection, Supple Cardiovascular : RRR, S1 S2, no lower extremity edema Respiratory : Chest wall moving bilaterally, not in respiratory distress Gastrointestinal: soft, lax, Normal bowel sounds, Non tender Skin : Warm/Dry, foot in dressing, no erythema or drainage noted, Neurological : Alert & oriented x3, No focal deficit Objective Data Current Medications Generic Name Dose Route Start Last Admin Trade Name Freq PRN Reason Stop Dose Admin Acetaminophen 650 mg 09/05/20 06:55 09/19/20 12:05 Acetaminophen 325 Mg Tablet PO 650 mg Q6H PRN Administration Pain, Mild (Pain Scale 1-3) Artificial Tears 1 drop 09/07/20 18:26 09/07/20 21:47 Artificial Tears 15 Ml Drops EYE-BOTH 1 drop Q6H PRN Administration Dry Eyes Atorvastatin Calcium 40 mg 09/04/20 21:00 09/20/20 20:28 Atorvastatin Calcium 40 Mg Tablet PO 40 mg BEDTIME TJ Administration Benzonatate 200 mg 09/05/20 21:00 09/21/20 08:18 Benzonatate 100 Mg Capsule PO 200 mg TID TJ Administration Bisacodyl 5 mg 09/04/20 21:00 09/21/20 08:18 Bisacodyl 5 Mg Tablet.Dr PO 5 mg BID TJ Administration Dexamethasone 40 mg 09/17/20 18:00 09/21/20 08:19 Dexamethasone 4 Mg Tablet PO 40 mg DAILY TJ Administration Docusate Sodium 100 mg 09/15/20 16:20 09/21/20 08:18 Docusate Sodium 100 Mg Capsule PO 100 mg BID TJ Administration Fluoxetine HCl 10 mg 09/05/20 09:00 09/21/20 08:19 Fluoxetine Hcl 10 Mg Capsule PO 10 mg DAILY TJ Administration Gabapentin 600 mg 09/04/20 21:00 09/20/20 20:28 Gabapentin 600 Mg Tablet PO 600 mg BEDTIME TJ Administration Guaifenesin/Dextromethorphan 10 ml 09/05/20 17:19 09/09/20 09:41 Guaifenesin Dm 100/10/5 Ml 5 Ml Syrup PO 10 ml Q4H PRN Administration cough Vancomycin HCl 1,000 mg/ 270 mls @ 270 mls/hr 09/20/20 20:00 09/21/20 10:24 Sodium Chloride IV 270 mls/hr Q12H TJ Administration Insulin Glargine 70 unit 09/19/20 09:00 09/21/20 08:17 Insulin Glargine,Hum.Rec.Anlog 100 Unit/Ml 10 Ml Vial SUBCUT 70 unit DAILY TJ Administration Insulin Glargine 65 unit 09/19/20 21:00 09/20/20 20:28 Insulin Glargine,Hum.Rec.Anlog 100 Unit/Ml 10 Ml Vial SUBCUT 65 unit BEDTIME TJ Administration Insulin Human Lispro 0 unit 09/05/20 07:30 09/21/20 08:18 Insulin Lispro 100 Unit/Ml 3 Ml Vial SUBCUT 8 unit QIDACHS [facility] Administration Protocol Lisinopril 5 mg 09/05/20 09:00 09/21/20 08:19 Lisinopril 5 Mg Tablet PO 5 mg DAILY TJ Administration Protocol Magnesium Hydroxide 30 ml 09/19/20 09:31 09/19/20 15:46 Milk Of Magnesia 30 Ml Oral.Susp PO 30 ml TID PRN Administration Constipation Omeprazole 40 mg 09/17/20 16:30 09/21/20 06:00 Omeprazole 40 Mg Capsule.Dr PO 40 mg BID@0630,1630 [facility] Administration Ondansetron HCl 4 mg 09/05/20 06:55 Ondansetron Hcl 4 Mg/2 Ml Vial IVPUSH Q8H PRN Nausea and Vomiting Pharmacy Consult 1 each 09/04/20 14:11 Consult Rx Perform Med Rec MISCELLANE ONCE PRN Consult order Polyethylene Glycol 17 gm 09/07/20 18:30 09/21/20 08:19 Polyethylene Glycol 3350 17 Gm Powd.Pack PO 17 gm DAILY TJ Administration Sodium Chloride 3 ml 09/05/20 08:00 09/21/20 08:27 0.9 % Sodium Chloride Flush 3 Ml Syringe IVFLUSH 3 ml QSHIFT TJ Administration Sodium Chloride 1 spray 09/09/20 20:21 09/09/20 21:18 Sodium Chloride 0.65 % Nasal 44 Ml Sprbtl NOSTRIL-B 1 spray Q1H PRN Administration Dry Nasal Passages Tramadol HCl 50 mg 09/12/20 11:39 09/16/20 01:12 Tramadol Hcl 50 Mg Tablet PO 50 mg Q6H PRN Administration Pain, Moderate (Pain Scale 4-6 Vitamin D 25 mcg 09/05/20 09:00 09/21/20 08:18 Cholecalciferol (Vitamin D3) 25 Mcg Tablet PO 25 mcg DAILY TJ Administration Labs CBC & Chem 7: 09/20/20 05:56 09/19/20 06:18 Microbiology Microbiology Results: Microbiology 09/10/20 19:15 Blood - Venous Blood Culture - Final No growth after 5 days. 09/10/20 19:15 Blood - Venous Blood Culture - Final No growth after 5 days. 09/04/20 15:00 Blood - Venous Blood Culture - Final Methicillin Res Staph Aureus 09/04/20 14:45 Blood - Venous Blood Culture - Final Methicillin Res Staph Aureus Assessment and Plan (1) Cellulitis: Status: Acute (2) Necrosis of toe: Status: Acute (3) Elevated erythrocyte sedimentation rate: Status: Acute (4) Thrombocytopenia: Status: Acute (5) MRSA bacteremia: Status: Acute Assessment and Plan: 60-year-old male with past medical history of diabetes as well as peripheral neuropathy who presents to the hospital with complaints of right toe wound, drainage 1. Sepsis due to diabetic foot ulcer with peripheral neuropathy with MRSA bacteremia. MRI 09/05/20 of the foot showed no inconclusive for osteomylitis. He was initially treated with vancomycin and Zosyn and consultations requested with ID and Vascular surgery. Blood cultures from 09/04/20 grew MRSA 2/2 and subsequent cultures have been negative. Dr. Figueroa performed angiogram and angioPlasty of posterior tibial artery on 09/06/20. He subsequently underwent amputation of the right big toe on 09/10/2020 and revise surgery on 09/18/[address] Figueroa and has been having dressing changes done. ID (Dr. Fleming) recommend 6 weeks of IV Vancomycin Day 12 as of today (09/21/20) last day should be 10/22/2020. A PICC line was inserted on September 19, 2020. He is to follow up with Dr. Figueroa in two weeks. He should continue having daily dressing changes. Thrombocytopenia -- On 09/04/20 platelet level was 214K platelet level started dropping on 09/12/20 to 82K and has steadily dropped to a low of 82 on09/13/20. Diferential diagnosis has included medication induced, HIT (Heparin induced Thrombocytopenia), ITP. Hematology consultation was requested with Dr. Padgett and HIT (Heparin induced Thrombocytopenia) work up is negative. 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 He was transfused 2 units of platlets on 09/17/20 prior to surgery when platlet was 21K. He presently has no bleeding issues and no petachia rash of any sort. Asprin on hold. Plat 18 today, will let Hematology know Diabetes with high sugars from steroid--Sugars have been on the high side due tstteroid. In the hospital, he has been on Lantus 70 units at night and 65 units in the morning in addition to sliding scale. Metformin has been on hold but can resume upon discharge and should resume Tresiba upon discharge. This was not on forumulary here. Constipation--Mirilax, Mom, Colace Hypomagnesemia 1.5 on admission and repeat after correction 2 HTN--to coneinue Lisinopril 10 mg dialy, previously 5 Hyperlipidemia--continue Lipitor 40
[2020-09-21 11:20] LABS: Platelet Count 18 X10*3/uL (160-400)
[2020-09-21 11:38] LABS: Glucose, Whole Blood 348 mg/dL (60-115)
[2020-09-21 12:00] VITALS: RESP 17
--- NOTE | 2020-09-21 14:35 | PM.HEMONCPN ---
Medical Summary - Medical Summary Date of Service: 09/21/20 Medical Summary: DIAGNOSIS: THROMBOCYTOPENIA. His platelets have dropped to 18,000. Recommend another four days of steroids and transfuse one pheresis unit of plateelts. Interval History Interval history: platelets continue to fall Review of Systems - Constitutional Reports anorexia - ENT Reports bleeding gums - Cardiovascular Reports excessive sweating - Respiratory Reports change in phlegm color - Neurologic Reports system reviewed and no additional complaints, except as documented, Reports weakness - Hematologic/Lymphatic Reports easy bleeding, Reports easy bruising PMFSH Medical History: Medical History (Last Reviewed 09/20/20 @ 10:40 by Olimpia Murguia, PT) Back pain Hyperlipidemia Hypertension IDDM (insulin dependent diabetes mellitus) Neck pain Peripheral neuropathy Psychiatric diagnosis Sleep apnea Functional capacity: uses cane/walker Family history: reviewed and not pertinent Surgical History: Surgical History (Last Reviewed 09/20/20 @ 10:40 by Olimpia Murguia, PT) H/O colonoscopy Hx of angioplasty Hx of appendectomy Hx of foot surgery Hx of tonsillectomy Hx of umbilical hernia repair Social History: Social History (Last Reviewed 09/17/20 @ 12:21 by Tha Baez) Living Situation History: Household Members: None Housing: Apartment Do you presently have visiting nurse or other home services: Yes Do you presently have visiting nurse or other home services 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 If so, by whom?: No Do you feel safe in your current relationship?: No Current Relationship Is there a partner from a previous relationship who is making you feel unsafe now?: No Are you made to feel afraid or neglected: No Advance Directives: Are you DNR?: No Advance Directives: No Advance Directives Information Provided: Yes Homicidal Assessment: Do you have thoughts of harming others: None Do you have a plan to hurt others: No Plan Nutrition Assessment: Recently lost weight without trying: Yes How much weight loss: Unsure Eating poorly because of decreased appetite: Yes Nutrition screen score: 5 Nutrition Risks: No Nutritional Risk Patient : No Poor oral hygiene: No Occupation Assessmet: service: Yes Current occupational status: unemployed Smoking status: Former smoker Home Medications and Allergies Current Medications: Current Medications Generic Name Dose Route Start Last Admin Trade Name Freq PRN Reason Stop Dose Admin Acetaminophen 650 mg 09/05/20 06:55 09/19/20 12:05 Acetaminophen 325 Mg Tablet PO 650 mg Q6H PRN Administration Pain, Mild (Pain Scale 1-3) Artificial Tears 1 drop 09/07/20 18:26 09/07/20 21:47 Artificial Tears 15 Ml Drops EYE-BOTH 1 drop Q6H PRN Administration Dry Eyes Atorvastatin Calcium 40 mg 09/04/20 21:00 09/20/20 20:28 Atorvastatin Calcium 40 Mg Tablet PO 40 mg BEDTIME TJ Administration Benzonatate 200 mg 09/05/20 21:00 09/21/20 08:18 Benzonatate 100 Mg Capsule PO 200 mg TID TJ Administration Bisacodyl 5 mg 09/04/20 21:00 09/21/20 08:18 Bisacodyl 5 Mg Tablet.Dr PO 5 mg BID TJ Administration Dexamethasone 40 mg 09/17/20 18:00 09/21/20 08:19 Dexamethasone 4 Mg Tablet PO 40 mg DAILY TJ Administration Docusate Sodium 100 mg 09/15/20 16:20 09/21/20 08:18 Docusate Sodium 100 Mg Capsule PO 100 mg BID TJ Administration Fluoxetine HCl 10 mg 09/05/20 09:00 09/21/20 08:19 Fluoxetine Hcl 10 Mg Capsule PO 10 mg DAILY TJ Administration Gabapentin 600 mg 09/04/20 21:00 09/20/20 20:28 Gabapentin 600 Mg Tablet PO 600 mg BEDTIME TJ Administration Guaifenesin/Dextromethorphan 10 ml 09/05/20 17:19 09/09/20 09:41 Guaifenesin Dm 100/10/5 Ml 5 Ml Syrup PO 10 ml Q4H PRN Administration cough Vancomycin HCl 1,000 mg/ 270 mls @ 270 mls/hr 09/20/20 20:00 09/21/20 11:29 Sodium Chloride IV Infused Q12H TJ Infusion Insulin Glargine 70 unit 09/19/20 09:00 09/21/20 08:17 Insulin Glargine,Hum.Rec.Anlog 100 Unit/Ml 10 Ml Vial SUBCUT 70 unit DAILY TJ Administration Insulin Glargine 65 unit 09/19/20 21:00 09/20/20 20:28 Insulin Glargine,Hum.Rec.Anlog 100 Unit/Ml 10 Ml Vial SUBCUT 65 unit BEDTIME TJ Administration Insulin Human Lispro 0 unit 09/05/20 07:30 09/21/20 11:48 Insulin Lispro 100 Unit/Ml 3 Ml Vial SUBCUT 8 unit QIDACHS [facility] Administration Protocol Lisinopril 5 mg 09/05/20 09:00 09/21/20 08:19 Lisinopril 5 Mg Tablet PO 5 mg DAILY TJ Administration Protocol Magnesium Hydroxide 30 ml 09/19/20 09:31 09/19/20 15:46 Milk Of Magnesia 30 Ml Oral.Susp PO 30 ml TID PRN Administration Constipation Omeprazole 40 mg 09/17/20 16:30 09/21/20 06:00 Omeprazole 40 Mg Capsule.Dr PO 40 mg BID@1543,7720 TJ Administration Ondansetron HCl 4 mg 09/05/20 06:55 Ondansetron Hcl 4 Mg/2 Ml Vial IVPUSH Q8H PRN Nausea and Vomiting Pharmacy Consult 1 each 09/04/20 14:11 Consult Rx Perform Med Rec MISCELLANE ONCE PRN Consult order Polyethylene Glycol 17 gm 09/07/20 18:30 09/21/20 08:19 Polyethylene Glycol 3350 17 Gm Powd.Pack PO 17 gm DAILY TJ Administration Sodium Chloride 3 ml 09/05/20 08:00 09/21/20 08:27 0.9 % Sodium Chloride Flush 3 Ml Syringe IVFLUSH 3 ml QSHIFT TJ Administration Sodium Chloride 1 spray 09/09/20 20:21 09/09/20 21:18 Sodium Chloride 0.65 % Nasal 44 Ml Sprbtl NOSTRIL-B 1 spray Q1H PRN Administration Dry Nasal Passages Tramadol HCl 50 mg 09/12/20 11:39 09/16/20 01:12 Tramadol Hcl 50 Mg Tablet PO 50 mg Q6H PRN Administration Pain, Moderate (Pain Scale 4-6 Vitamin D 25 mcg 09/05/20 09:00 09/21/20 08:18 Cholecalciferol (Vitamin D3) 25 Mcg Tablet PO 25 mcg DAILY TJ Administration Home Medications Medication Instructions Recorded Confirmed Type aspirin 81 mg PO DAILY 07/17/20 09/04/20 History atorvastatin 40 mg PO BEDTIME 07/17/20 09/04/20 History gabapentin 600 mg PO BEDTIME 07/17/20 09/04/20 History insulin degludec [Tresiba 80 unit SUBCUT QAM 07/17/20 09/04/20 History FlexTouch U-100] ipratropium-albuterol [Combivent 2 puff INHALATION Q6H PRN 07/17/20 09/04/20 History Respimat] liraglutide [Victoza 3-Chet] 1.8 mg SUBCUT DAILY 07/17/20 09/04/20 History lisinopril 5 mg PO DAILY 07/17/20 09/04/20 History metformin 1,000 mg PO BID 07/17/20 09/04/20 History bisacodyl 5 mg PO BID 09/04/20 09/04/20 History cholecalciferol (vitamin D3) 25 mcg PO DAILY 09/04/20 09/04/20 History fluoxetine 10 mg PO DAILY 09/04/20 09/04/20 History insulin degludec [Tresiba 65 unit SUBCUT BEDTIME 09/04/20 09/04/20 History FlexTouch U-100] Allergies Allergy/AdvReac Type Severity Reaction Status Date / Time No Known Allergies Allergy Verified 07/15/20 11:10 [No Known Allergies*] Exam Vital signs: Vital Signs Temp 97.2 F 09/21/20 07:07 Pulse 55 09/21/20 07:07 Resp 17 09/21/20 07:07 BP 177/80 H 09/21/20 07:07 Pulse Ox 96 09/21/20 07:07 Intake & Output 09/20/20 09/21/20 09/21/20 18:59 06:59 18:59 Intake Total 790 / 2380 1590 / 2380 850 / 850 Output Total 3 / 503 500 / 503 250 / 250 Balance 787 / 1877 1090 / 1877 600 / 600 Urine Output (Average ml/kg/hr) 0.00 0.32 0.16 Intake: Intake, Oral Amount 520 / 1840 1320 / 1840 580 / 580 Intake, IV Amount 270 / 540 270 / 540 270 / 270 vancomycin HCL 1,000 mg In 0.9 270 / 540 270 / 540 270 / 270 % Sodium Chloride 250 ml @ 270 mls/hr IV Q12H [facility] Rx#: [id number] Output: Output, Urine Amount 2 / 502 500 / 502 250 / 250 Output, Stool Amount Other: Meal Refused No NPO No Breakfast % Eaten 100% 100% Lunch % Eaten 100% Number of Unmeasured Voids 2 Urine Bathroom Urinal Urinal Urine Color Yellow Yellow Yellow Stool Bathroom Stool Amount Small Stool Color Brown Stool Consistency Semi Formed Weight 131.542 kg Body Mass Index 37.2 - Constitutional Present: mild distress - Routine HEENT Exam Head: Present: normal inspection - Routine Cardiovascular Exam Cardiovascular: Present: RRR, S1, S2 - Routine Abdominal Exam Present: soft, nontender - Routine Extremities Exam Present: nontender - Routine Back/Spine/Pelvis Exam Back/Spine: Absent: CVA tenderness - Routine Neurological Exam Present: alert, oriented X3 - Detailed Neurological Exam: Coma Scale Eye Opening: Spontaneous (4) Data - Labs CBC & Chem 7: 09/21/20 06:00 09/19/20 06:18 Labs: 09/04/20 Add Laboratory Test Stat 09/04/20 11:43 XR foot RT min 3V Stat 09/04/20 14:11 ECG 12 lead EKG Stat EKG Documentation DIRECTED 09/04/20 14:12 XR chest 1V Stat 09/04/20 14:13 Piperacillin Sodium/Tazobactam [Zosyn] 3.375 gm 0.9 % Sodium Chloride [Ns] 50 ml IV ONCE 09/04/20 14:15 Consult Rx Vancomycin Dosing 1 each MISCELLANE DAILY PRN vancomycin HCL 1,000 mg vancomycin HCL 750 mg 0.9 % Sodium Chloride [Ns] 500 ml IV ONCE 09/04/20 14:27 Piperacillin Sodium/Tazobactam [Zosyn] 3.375 gm IV .STK-MED ONE 09/04/20 14:44 B Type Natriuretic Peptide Stat Procalcitonin Stat 09/04/20 14:45 Ferritin Stat Lactic Acid Stat Partial Thromboplastin Time Stat Prothrombin Time INR Stat 09/04/20 14:46 Basic Metabolic Panel Stat C Reactive Protein Stat Complete Blood Count Auto Diff Stat Erythrocyte Sedimentation Rate Stat Lactate Dehydrogenase Stat Liver Panel Stat Magnesium Stat SLIDE REVIEW Stat 09/04/20 15:00 SARS-CoV2/FLU/RSV Stat Blood Culture X2 [BC] Stat 09/04/20 16:53 vancomycin HCL 1,000 mg .ROUTE .STK-MED ONE vancomycin HCL 750 mg IV .STK-MED ONE 09/04/20 17:18 Consult Rx Vancomycin Dosing 1 each MISCELLANE DAILY PRN 09/04/20 17:27 vancomycin HCL 1,000 mg vancomycin HCL 750 mg 0.9 % Sodium Chloride [Ns] 500 ml IV ONCE 09/04/20 17:30 vancomycin HCL 1,000 mg vancomycin HCL 750 mg 0.9 % Sodium Chloride [Ns] 500 ml IV ONCE 09/04/20 17:39 vancomycin HCL 1,000 mg .ROUTE .STK-MED ONE vancomycin HCL 750 mg IV .STK-MED ONE 09/04/20 19:10 US venous duplex LE RT Stat 09/04/20 20:00 UA CC w/rflx Micro + Cult Stat 09/04/20 20:45 Transfer Order Routine 09/04/20 20:52 Consult Rx Vancomycin Dosing 1 each MISCELLANE DAILY PRN 09/04/20 21:00 Piperacillin Sodium/Tazobactam [Zosyn] 3.375 gm 0.9 % Sodium Chloride [Ns] 50 ml IV Q6H 09/04/20 21:14 Piperacillin Sodium/Tazobactam [Zosyn] 3.375 gm IV .STK-MED ONE 09/04/20 22:07 Glucose, Whole Blood Routine 09/04/20 22:28 guaiFENesin DM 100/10/5 ML [Robitussin DM 100/10/5 ML] 5 ml PO Q4H PRN 09/04/20 22:30 Insulin Glargine,Hum.rec.anlog [Lantus] 45 unit SUBCUT BEDTIME 09/04/20 22:51 US MAGNUS complete Routine 09/05/20 03:35 Piperacillin Sodium/Tazobactam [Zosyn] 3.375 gm IV .STK-MED ONE 09/05/20 03:48 Benzonatate [Tessalon] 200 mg PO TID PRN 09/05/20 06:00 vancomycin HCL 750 mg IV Q12H 09/05/20 06:32 Magnesium Sulfate/H2O 2 gm in 50 ml IV ONCE 09/05/20 06:45 Heparin Sodium,Porcine 5,000 unit SUBCUT Q12H 09/05/20 06:55 Docusate Sodium [Colace] 100 mg PO DAILY PRN 09/05/20 08:16 Glucose, Whole Blood Routine 09/05/20 08:57 Piperacillin Sodium/Tazobactam [Zosyn] 3.375 gm IV .STK-MED ONE 09/05/20 09:00 Aspirin Enteric Coated [Ecotrin] 81 mg PO DAILY Insulin Glargine,Hum.rec.anlog [Lantus] 56 unit SUBCUT DAILY 09/05/20 Breakfast Diabetic Diet 09/05/20 11:07 Glucose, Whole Blood Routine 09/05/20 12:35 US arterial duplex LE BI Routine 09/05/20 13:12 GadobutroL [Gadavist] 10 ml IVPUSH ONCE ONE 09/05/20 14:36 Glucose, Whole Blood Routine 09/05/20 15:50 Clopidogrel Bisulfate [Plavix] 75 mg PO DAILY 09/05/20 15:54 Piperacillin Sodium/Tazobactam [Zosyn] 3.375 gm IV .STK-MED ONE 09/05/20 16:27 Glucose, Whole Blood Routine 09/05/20 17:18 TiZANidine HCL [Zanaflex] 4 mg PO ONCE ONE 09/05/20 18:24 RT BiPAP/CPAP STAT 09/05/20 20:39 Glucose, Whole Blood Routine 09/05/20 20:52 MR foot RT wo/w con Routine 09/05/20 21:00 Insulin Glargine,Hum.rec.anlog [Lantus] 45 unit SUBCUT BEDTIME 09/05/20 21:07 Piperacillin Sodium/Tazobactam [Zosyn] 3.375 gm IV .STK-MED ONE 09/06/20 IR mine captain tibioperoneal & branchs Routine IR us guide needle place Routine 09/06/20 02:50 Piperacillin Sodium/Tazobactam [Zosyn] 3.375 gm IV .STK-MED ONE 09/06/20 05:09 Basic Metabolic Panel Routine Complete Blood Count Auto Diff Routine Magnesium Routine Vancomycin Trough Stat 09/06/20 06:00 Glucose, Whole Blood Routine 09/06/20 07:00 vancomycin HCL 1,000 mg 0.9 % Sodium Chloride [Ns] 250 ml IV Q12H 09/06/20 07:13 Heparin Sodium (Porcine)/NS/PF 2,000 unit in 1,000 ml IV As directed Lidocaine HCl 1 % MPF [Xylocaine 1 % MPF] 5 ml .ROUTE .STK-MED ONE iohexoL 300 MG/ML [Omnipaque 300 MG/ML] 100 ml IV .STK-MED ONE iohexoL 300 MG/ML [Omnipaque 300 MG/ML] 50 ml IV .STK-MED ONE 09/06/20 07:38 Heparin Sodium,Porcine 10,000 unit IVPUSH .STK-MED ONE Midazolam HCl/PF [Versed] 2 mg .ROUTE .STK-MED ONE Naloxone HCl [Narcan] 0.4 mg .ROUTE .STK-MED ONE fentaNYL citrate/PF [Sublimaze] 50 mcg .ROUTE .STK-MED ONE flumazeniL [Romazicon] 0.05 mg .ROUTE .STK-MED ONE 09/06/20 09:04 Vital Signs Q30M 09/06/20 09:53 Piperacillin Sodium/Tazobactam [Zosyn] 3.375 gm IV .STK-MED ONE 09/06/20 Breakfast Diabetic Diet 09/06/20 10:53 Lidocaine HCl 1 % MPF [Xylocaine 1 % MPF] 10 ml SUBCUT ONCE ONE 09/06/20 10:54 iohexoL 300 MG/ML [Omnipaque 300 MG/ML] 100 ml IV ONCE ONE 09/06/20 11:13 Glucose, Whole Blood Routine 09/06/20 11:57 vancomycin HCL 1,000 mg .ROUTE .STK-MED ONE 09/06/20 12:00 vancomycin HCL 1,000 mg 0.9 % Sodium Chloride [Ns] 250 ml IV Q12H 09/06/20 15:03 Piperacillin Sodium/Tazobactam [Zosyn] 3.375 gm IV .STK-MED ONE 09/06/20 16:33 Glucose, Whole Blood Routine 09/06/20 20:38 Piperacillin Sodium/Tazobactam [Zosyn] 3.375 gm IV .STK-MED ONE 09/06/20 20:46 Glucose, Whole Blood Routine 09/06/20 23:08 vancomycin HCL 1,000 mg .ROUTE .STK-MED ONE 09/07/20 03:47 Piperacillin Sodium/Tazobactam [Zosyn] 3.375 gm IV .STK-MED ONE 09/07/20 07:22 Glucose, Whole Blood Routine 09/07/20 07:56 Basic Metabolic Panel Routine 09/07/20 08:16 Piperacillin Sodium/Tazobactam [Zosyn] 3.375 gm IV .STK-MED ONE 09/07/20 11:37 Glucose, Whole Blood Routine 09/07/20 12:30 vancomycin HCL 1,000 mg .ROUTE .STK-MED ONE 09/07/20 16:18 Piperacillin Sodium/Tazobactam [Zosyn] 3.375 gm IV .STK-MED ONE 09/07/20 16:20 Piperacillin Sodium/Tazobactam [Zosyn] 3.375 gm IV .STK-MED ONE 09/07/20 16:43 Glucose, Whole Blood Routine 09/07/20 20:36 Glucose, Whole Blood Routine 09/07/20 21:33 Piperacillin Sodium/Tazobactam [Zosyn] 3.375 gm IV .STK-MED ONE 09/07/20 23:13 Vancomycin Trough Stat 09/08/20 00:54 vancomycin HCL 1,000 mg .ROUTE .STK-MED ONE 09/08/20 03:01 Piperacillin Sodium/Tazobactam [Zosyn] 3.375 gm IV .STK-MED ONE 09/08/20 07:28 Glucose, Whole Blood Routine 09/08/20 07:55 Piperacillin Sodium/Tazobactam [Zosyn] 3.375 gm IV .STK-MED ONE 09/08/20 11:23 Lactulose [Chronulac] 30 gm PO ONCE ONE 09/08/20 11:52 Glucose, Whole Blood Routine 09/08/20 13:00 vancomycin HCL 750 mg vancomycin HCL 500 mg 0.9 % Sodium Chloride [Ns] 250 ml IV Q12H 09/08/20 15:21 Piperacillin Sodium/Tazobactam [Zosyn] 3.375 gm IV .STK-MED ONE 09/08/20 16:53 Glucose, Whole Blood Routine 09/08/20 20:00 Glucose, Whole Blood Routine 09/08/20 22:45 Piperacillin Sodium/Tazobactam [Zosyn] 3.375 gm IV .STK-MED ONE 09/08/20 23:10 Lactulose [Chronulac] 20 gm PO ONCE ONE 09/09/20 02:47 Piperacillin Sodium/Tazobactam [Zosyn] 3.375 gm IV .STK-MED ONE 09/09/20 07:25 Glucose, Whole Blood Routine 09/09/20 08:17 Piperacillin Sodium/Tazobactam [Zosyn] 3.375 gm IV .STK-MED ONE 09/09/20 11:14 Glucose, Whole Blood Routine 09/09/20 11:58 Vancomycin Trough Stat 09/09/20 12:13 Lactulose [Chronulac] 40 gm PO ONCE ONE 09/09/20 12:26 Basic Metabolic Panel Routine Complete Blood Count Auto Diff Routine 09/09/20 15:52 Piperacillin Sodium/Tazobactam [Zosyn] 3.375 gm IV .STK-MED ONE 09/09/20 16:01 Glucose, Whole Blood Routine 09/09/20 20:05 Piperacillin Sodium/Tazobactam [Zosyn] 3.375 gm IV .STK-MED ONE 09/09/20 20:20 Sodium Phosphate,[place]-Dibasic [Fleet Enema] 133 ml NE ONCE ONE 09/09/20 20:28 Glucose, Whole Blood Routine 09/09/20 21:00 Insulin Glargine,Hum.rec.anlog [Lantus] 50 unit SUBCUT BEDTIME 09/09/20 21:10 Piperacillin Sodium/Tazobactam [Zosyn] 3.375 gm IV .STK-MED ONE 09/10/20 02:48 Piperacillin Sodium/Tazobactam [Zosyn] 3.375 gm IV .STK-MED ONE 09/10/20 06:12 Basic Metabolic Panel DAILY@0600 09/10/20 07:50 Glucose, Whole Blood Routine 09/10/20 08:48 Piperacillin Sodium/Tazobactam [Zosyn] 3.375 gm IV .STK-MED ONE 09/10/20 09:00 Insulin Glargine,Hum.rec.anlog [Lantus] 60 unit SUBCUT DAILY 09/10/20 11:43 Glucose, Whole Blood Routine 09/10/20 12:37 propofoL [Diprivan] 200 mg IVPUSH .STK-MED ONE 09/10/20 12:38 propofoL [Diprivan] 200 mg IVPUSH .STK-MED ONE 09/10/20 12:40 Continuous pulse oximetry CONT 09/10/20 12:42 Lidocaine HCl 1 % MPF [Xylocaine 1 % MPF] 5 ml .ROUTE .STK-MED ONE 09/10/20 12:45 Lactated Ringers [Lr] 1,000 ml IVCONT 20 mls/hr 09/10/20 13:31 Surgical [PTH] Routine 09/10/20 14:22 Transfer Order Routine 09/10/20 15:46 Piperacillin Sodium/Tazobactam [Zosyn] 3.375 gm IV .STK-MED ONE 09/10/20 16:22 Glucose, Whole Blood Routine 09/10/20 Dinner Diabetic Diet 09/10/20 19:15 Blood Culture X2 [BC] Routine 09/10/20 21:02 Glucose, Whole Blood Routine 09/10/20 21:22 Piperacillin Sodium/Tazobactam [Zosyn] 3.375 gm IV .STK-MED ONE 09/11/20 00:16 Vancomycin Trough Stat 09/11/20 01:39 vancomycin HCL 500 mg IV .STK-MED ONE vancomycin HCL 750 mg IV .STK-MED ONE 09/11/20 03:11 Piperacillin Sodium/Tazobactam [Zosyn] 3.375 gm IV .STK-MED ONE 09/11/20 06:02 Basic Metabolic Panel DAILY@0600 09/11/20 07:31 Glucose, Whole Blood Routine 09/11/20 08:08 Piperacillin Sodium/Tazobactam [Zosyn] 3.375 gm IV .STK-MED ONE 09/11/20 11:17 Glucose, Whole Blood Routine 09/11/20 15:08 Piperacillin Sodium/Tazobactam [Zosyn] 3.375 gm IV .STK-MED ONE 09/11/20 16:05 Glucose, Whole Blood Routine 09/11/20 20:22 Glucose, Whole Blood Routine 09/11/20 20:29 NaPROXEN [Naprosyn] 250 mg PO ONCE ONE 09/12/20 00:52 vancomycin HCL 500 mg IV .STK-MED ONE 09/12/20 05:55 Basic Metabolic Panel DAILY@0600 Complete Blood Count Auto Diff DAILY@0600 09/12/20 07:17 Glucose, Whole Blood Routine 09/12/20 11:06 Glucose, Whole Blood Routine 09/12/20 16:20 Glucose, Whole Blood Routine 09/12/20 20:17 Glucose, Whole Blood Routine 09/13/20 00:16 Vancomycin Trough Routine 09/13/20 06:39 Basic Metabolic Panel DAILY@0600 Complete Blood Count Auto Diff DAILY@0600 09/13/20 07:07 Glucose, Whole Blood Routine 09/13/20 08:30 vancomycin HCL 1,000 mg 0.9 % Sodium Chloride [Ns] 250 ml IV Q12H 09/13/20 09:54 vancomycin HCL 1,000 mg .ROUTE .STK-MED ONE 09/13/20 11:36 Glucose, Whole Blood Routine 09/13/20 16:15 Glucose, Whole Blood Routine 09/13/20 16:54 D Dimer Routine Fibrinogen Routine Heparin Induced Thrombocytopen Routine Immunofixation Pnl, Serum Routine Lactate Dehydrogenase Routine Partial Thromboplastin Time Routine Prothrombin Time INR Routine 09/13/20 20:09 Vancomycin Trough Routine 09/13/20 20:14 Glucose, Whole Blood Routine 09/13/20 22:10 vancomycin HCL 1,000 mg .ROUTE .[facility]-MED ONE 09/14/20 06:16 Basic Metabolic Panel DAILY@0600 Complete Blood Count Auto Diff DAILY@0600 09/14/20 07:44 Glucose, Whole Blood Routine 09/14/20 08:27 vancomycin HCL 1,000 mg .ROUTE .STK-MED ONE 09/14/20 08:42 vancomycin HCL 1,000 mg .ROUTE .K-MED ONE 09/14/20 11:39 Glucose, Whole Blood Routine 09/14/20 16:56 Glucose, Whole Blood Routine 09/14/20 20:00 Vancomycin Trough Routine 09/14/20 20:35 Glucose, Whole Blood Routine 09/14/20 20:45 vancomycin HCL 1,000 mg .ROUTE .STK-MED ONE 09/15/20 07:12 Basic Metabolic Panel DAILY@0600 Complete Blood Count Auto Diff DAILY@0600 09/15/20 07:22 Glucose, Whole Blood Routine 09/15/20 09:54 vancomycin HCL 1,000 mg .ROUTE .STK-MED ONE 09/15/20 12:01 Glucose, Whole Blood Routine 09/15/20 16:18 Milk of Magnesia [Mom] 30 ml PO ONCE ONE 09/15/20 16:20 Glucose, Whole Blood Routine 09/15/20 20:13 Glucose, Whole Blood Routine 09/15/20 21:04 vancomycin HCL 1,000 mg .ROUTE .STK-MED ONE 09/16/20 06:58 Basic Metabolic Panel DAILY@0600 Complete Blood Count Auto Diff DAILY@0600 Prothrombin Time INR Routine Vancomycin Trough Routine 09/16/20 07:19 Glucose, Whole Blood Routine 09/16/20 09:06 vancomycin HCL 1,000 mg .ROUTE .STK-MED ONE 09/16/20 Breakfast Diabetic Diet NPO Diet 09/16/20 11:18 Glucose, Whole Blood Routine 09/16/20 13:00 CA echo transthoracic complete Routine 09/16/20 16:13 Glucose, Whole Blood Routine 09/16/20 17:46 Glucose, Whole Blood Routine 09/16/20 20:57 Glucose, Whole Blood Routine 09/16/20 21:04 vancomycin HCL 1,000 mg .ROUTE .STK-MED ONE 09/17/20 05:49 Basic Metabolic Panel DAILY@0600 Complete Blood Count Auto Diff DAILY@0600 Prothrombin Time INR DAILY@0600 SLIDE REVIEW Routine 09/17/20 07:33 Glucose, Whole Blood Routine 09/17/20 08:09 Insulin Glargine,Hum.rec.anlog [Lantus] 15 unit SUBCUT ONCE ONE 09/17/20 08:11 Pheresis Platelets Routine Type and Screen Routine 09/17/20 08:22 vancomycin HCL 1,000 mg .ROUTE .STK-MED ONE 09/17/20 Breakfast NPO Diet 09/17/20 11:09 Glucose, Whole Blood Routine 09/17/20 12:47 fentaNYL citrate/PF [Sublimaze] 50 mcg .ROUTE .STK-MED ONE propofoL [Diprivan] 200 mg IVPUSH .STK-MED ONE 09/17/20 12:52 dexmedeTOMIDidine HCL [Precedex] 80 mcg .ROUTE .STK-MED ONE 09/17/20 13:15 Bupivacaine MPF 0.5 % [Sensorcaine MPF 0.5% 10 ML] 10 ml .ROUTE .STK-MED ONE 09/17/20 13:16 Lidocaine HCl 1 % MPF [Xylocaine 1 % MPF] 5 ml .ROUTE .STK-MED ONE 09/17/20 13:40 fentaNYL citrate/PF [Sublimaze] 50 mcg .ROUTE .STK-MED ONE 09/17/20 13:42 Metoclopramide HCl [Reglan] 10 mg .ROUTE .STK-[facility] ONE ondansetron HCL [Zofran] 4 mg .ROUTE .STK-MED ONE 09/17/20 13:49 ePHEDrine sulfate 50 mg .ROUTE .STK-MED ONE 09/17/20 13:53 propofoL [Diprivan] 200 mg IVPUSH .STK-MED ONE 09/17/20 14:01 Surgical [PTH] Routine 09/17/20 14:35 Phenylephrine HCL 1,000 mcg IVPUSH .STK-MED ONE 09/17/20 15:12 Transfer Order Routine 09/17/20 16:37 Glucose, Whole Blood Routine 09/17/20 18:56 Vancomycin Trough Routine 09/17/20 20:03 vancomycin HCL 1,000 mg .ROUTE .K-MED ONE 09/17/20 20:58 Glucose, Whole Blood Routine 09/18/20 06:02 Basic Metabolic Panel DAILY@0600 Complete Blood Count no Diff DAILY@0600 09/18/20 07:19 Glucose, Whole Blood Routine 09/18/20 08:13 vancomycin HCL 1,000 mg .ROUTE .K-MED ONE 09/18/20 11:55 Glucose, Whole Blood Routine 09/18/20 13:09 Compression Therapy QSHIFT 09/18/20 13:15 Milk of Magnesia [Mom] 30 ml PO ONCE ONE 09/18/20 16:18 Glucose, Whole Blood Routine 09/18/20 16:55 Insulin Lispro [Humalog] 5 unit SUBCUT ONCE ONE 09/18/20 20:18 Glucose, Whole Blood Routine 09/18/20 20:46 vancomycin HCL 1,000 mg .ROUTE .STK-MED ONE 09/18/20 21:00 Insulin Glargine,Hum.rec.anlog [Lantus] 60 unit SUBCUT BEDTIME 09/19/20 06:18 Basic Metabolic Panel DAILY@0600 Complete Blood Count no Diff DAILY@0600 Vancomycin Trough Stat 09/19/20 07:33 Glucose, Whole Blood Routine 09/19/20 07:42 vancomycin HCL 1,000 mg .ROUTE .STK-MED ONE 09/19/20 09:00 Insulin Glargine,Hum.rec.anlog [Lantus] 66 unit SUBCUT DAILY 09/19/20 09:30 IR cvc insert peripheral Routine 09/19/20 11:13 Glucose, Whole Blood Routine 09/19/20 16:25 Glucose, Whole Blood Routine 09/19/20 16:42 Insulin Lispro [Humalog] 5 unit SUBCUT ONCE ONE 09/19/20 20:05 Glucose, Whole Blood Routine 09/19/20 20:29 vancomycin HCL 1,000 mg .ROUTE .K-MED ONE 09/19/20 22:38 Glucose, Whole Blood Routine 09/19/20 22:41 Insulin Lispro [Humalog] 5 unit SUBCUT ONCE ONE 09/20/20 05:56 Complete Blood Count no Diff DAILY@0600 09/20/20 07:50 Glucose, Whole Blood Routine 09/20/20 08:19 vancomycin HCL 1,000 mg .ROUTE .[facility] ONE 09/20/20 11:50 Glucose, Whole Blood Routine 09/20/20 16:36 Glucose, Whole Blood Routine 09/20/20 20:20 vancomycin HCL 1,000 mg .ROUTE .[facility] ONE 09/20/20 20:21 Glucose, Whole Blood Routine 09/20/20 21:33 Glucose, Whole Blood Routine 09/20/20 22:05 Insulin Lispro [Humalog] 10 unit SUBCUT ONCE ONE 09/21/20 06:00 Complete Blood Count no Diff Routine 09/21/20 07:11 Glucose, Whole Blood Routine 09/21/20 07:42 Vancomycin Trough Stat 09/21/20 09:42 COVID-19 ID NOW (Alvarez) Stat 09/21/20 10:19 vancomycin HCL 1,000 mg .ROUTE .[facility] [facility] 09/21/20 11:26 Glucose, Whole Blood Routine Laboratory Last Values WBC 10.5 X10*3/uL (4.8-10.8) 09/21/20 06:00 RBC 3.42 X10*6/uL (4.60-5.80) L 09/21/20 06:00 Hgb 11.3 g/dl (14.0-18.0) L 09/21/20 06:00 Hct 32.0 % (42-52) L 09/21/20 06:00 MCV 93.6 fL (80-98) 09/21/20 06:00 MCH 33.0 pg (27.0-33.0) 09/21/20 06:00 MCHC 35.3 g/dl (31.0-36.0) 09/21/20 06:00 RDW 11.4 % (11.0-16.0) 09/21/20 06:00 Plt Count 18 X10*3/uL (160-400) L* 09/21/20 06:00 MPV Not Reportable 09/21/20 06:00 Immature Gran % (Auto) 1.1 % (0.0-0.4) H 09/17/20 05:49 Neut % (Auto) 81.3 % (45-73) H 09/17/20 05:49 Lymph % (Auto) 9.6 % (20-40) L 09/17/20 05:49 [place] % (Auto) 7.3 % (2-11) 09/17/20 05:49 Eos % (Auto) 0.5 % (0-4) 09/17/20 05:49 Baso % (Auto) 0.2 % (0-2) 09/17/20 05:49 Lymph # (Auto) 1.2 X10*3/uL (1.2-4.9) 09/17/20 05:49 [place] # (Auto) 0.9 X10*3/uL (0.1-1.2) 09/17/20 05:49 Eos # (Auto) 0.1 X10*3/uL (0.0-0.4) 09/17/20 05:49 Baso # (Auto) 0.0 X10*3/uL (0.0-0.2) 09/17/20 05:49 Abs Immat Gran (auto) 0.14 X10*3/uL (0.00-0.03) H 09/17/20 05:49 Absolute Neuts (auto) 10.4 X10*3/uL (2.0-8.3) H 09/17/20 05:49 Absolute Nucleated RBC 0.000 X10*3/uL (0.0-0.012) 09/21/20 06:00 Nucleated RBC % (auto) 0.0 /100WBC (0.0-0.2) 09/21/20 06:00 Smear Tech's Comments VERIFIED 09/17/20 05:49 ESR 90 MM/HR (0-15) H 09/04/20 14:46 PT 15.0 SEC (10.8-13.0) H 09/17/20 05:49 INR 1.3 (0.9-1.1) H 09/17/20 05:49 APTT 38.3 SEC (24.1-38.0) H 09/13/20 16:54 Fibrinogen > 700 MG/DL (259-690) H 09/13/20 16:54 D-Dimer 482 NG/ML 09/13/20 16:54 Hep-Ind Thrombocytop Com See Below 09/13/20 16:54 Sodium 136 mmol/L (135-145) 09/19/20 06:18 Potassium 4.0 mmol/l (3.3-5.1) 09/19/20 06:18 Chloride 102 mmol/L (96-108) 09/19/20 06:18 Carbon Dioxide 22 mmol/L (22-29) 09/19/20 06:18 Anion Gap 16 (12-20) 09/19/20 06:18 BUN 30 mg/dL (9-16) H 09/19/20 06:18 Creatinine 1.00 mg/dL (0.5-1.4) 09/19/20 06:18 Estim Creat Clear Calc 111.8 09/19/20 06:18 Estimated GFR > 60 09/19/20 06:18 POC Glucose 348 mg/dL (60-115) H 09/21/20 11:26 Random Glucose 296 mg/dL (60-115) H 09/19/20 06:18 Lactic Acid 1.2 mmol/L (0.5-2.0) 09/04/20 14:45 Calcium 8.4 mg/dL (8.4-10.2) 09/19/20 06:18 Magnesium 2.0 mg/dL (1.6-2.6) 09/06/20 05:09 Ferritin 609 ng/mL (20-250) H 09/04/20 14:45 Total Bilirubin 1.6 mg/dL (0.0-1.0) H 09/04/20 14:46 Direct Bilirubin 0.9 mg/dL (0.0-0.5) H 09/04/20 14:46 AST 36 U/L (5-37) D 09/04/20 14:46 ALT 61 U/L (0-40) H 09/04/20 14:46 Alkaline Phosphatase 134 U/L (39-117) H D 09/04/20 14:46 Lactate Dehydrogenase 170 U/L (118-273) 09/13/20 16:54 C-Reactive Protein 18.48 mg/dL (< or = 0.50) H 09/04/20 14:46 B-Natriuretic Peptide 59 pg/mL (<100) 09/04/20 14:44 Total Protein 6.7 g/dL (6.5-8.0) 09/04/20 14:46 Albumin 3.7 g/dL (3.5-5.0) 09/04/20 14:46 Procalcitonin 0.18 ng/mL 09/04/20 14:44 Urine Color DARK YELLOW 09/04/20 20:00 Urine Appearance HAZY 09/04/20 20:00 Urine pH 5.5 (5.0-8.0) 09/04/20 20:00 Ur Specific [place] >= 1.030 (1.005-1.025) H 09/04/20 20:00 Urine Protein TRACE MG/DL (NEG-TRACE) 09/04/20 20:00 Urine Glucose (UA) 100 MG/DL (NEG) H 09/04/20 20:00 Urine Ketones NEG MG/DL (NEG) 09/04/20 20:00 Urine Blood NEG (NEG) 09/04/20 20:00 Urine Nitrite NEG (NEG) 09/04/20 20:00 Ur Leukocyte Esterase NEG (NEG) 09/04/20 20:00 Vancomycin Trough 11.1 mcg/mL (10.0-20.0) 09/21/20 07:42 IgG Total 1568 mg/dL (600-1540) H 09/13/20 16:54 IgA Total 678 mg/dL (70-320) H 09/13/20 16:54 IgM 36 mg/dL (50-300) L 09/13/20 16:54 PAYAL Interpretation SEE NOTE 09/13/20 16:54 Heparin Dep Plt Ab OD 0.065 OD UNITS (<OR= 0.300) 09/13/20 16:54 Hep-Induced Plt Ab Devi NEGATIVE (NEGATIVE) 09/13/20 16:54 Coronavirus (PCR) NEGATIVE (Negative) 09/04/20 15:00 COVID-19 (JOSE) Negative (Negative) 09/21/20 09:42 COVID-19 Clin Com See Note 09/21/20 09:42 Influenza Type A (PCR) NEGATIVE (Negative) 09/04/20 15:00 Influenza Type B (PCR) NEGATIVE (Negative) 09/04/20 15:00 RSV RNA Qual (PCR) NEGATIVE (Negative) 09/04/20 15:00 Blood Type O Positive 09/17/20 08:11 Antibody Screen NEGATIVE 09/17/20 08:11 - Imaging Radiologist's impression: ITS Impressions Foot X-Ray 09/04/20 11:43 IMPRESSION: Soft tissue swelling without definite erosive change or gas within the soft tissues. Chest X-Ray 09/04/20 14:12 IMPRESSION: Unremarkable examination. Venous Duplex 09/04/20 19:10 IMPRESSION: No DVT demonstrated in the right lower extremity. Prominent groin nodes noted. Correlation needs to be made clinically Abd US [id number] 09/04/20 22:51 IMPRESSION: Right lower extremity: Triphasic waveforms down to the popliteal arteries with normal MAGNUS. Left lower extremity: Triphasic waveform down to the popliteal artery. Abnormally elevated MAGNUS likely related to calcified vessel with inability to compress. Duplex Scan Lower Extremity Artery 09/05/20 12:35 IMPRESSION: Right lower extremity: Triphasic waveforms down to the popliteal arteries with normal MAGNUS. Left lower extremity: Triphasic waveform down to the popliteal artery. Abnormally elevated MAGNUS likely related to calcified vessel with inability to compress. Foot MRI 09/05/20 20:52 IMPRESSION: * The edema and subcutaneous tissue enhancement of the foot is suggestive of cellulitis. No soft tissue abscess. * There appears to be a superficial wound medial to the region of the great toe interphalangeal joint and distal phalanx. Findings are consistent with mild reactive hyperemia/edema involving phalanges of the great toe. These phalanges have preserved fatty marrow signal on the T1-weighted images. There is no convincing osteomyelitis. * Severe atrophy and fatty replacement of muscles of the foot, which can be a sequela of chronic diabetic neuropathy. Progress Note: A/P - Time Spent With Patient Total time spent is greater than 50% in coordination of care (as documented) at patient's floor/unit and/or counseling patient: 15 - 24 minutes (none) Procedures - Paracentesis Time out performed: Yes
[2020-09-21 15:25] VITALS: BP 172/82; PULSE 58; RESP 18; TEMP 36.2; O2SAT 97
[2020-09-21] MEDS: Milk of Magnesia 30 ML ORAL.SUSP PO (15:45)
[2020-09-21] MEDS: traMADoL HCL 50 MG TABLET PO (15:45)
--- NOTE | 2020-09-21 15:59 | PC.NURSE ---
P-elevated BP I-medicated for c/o back pain,Dr. Adrian aware E-will monitor
[2020-09-21 17:05] LABS: Glucose, Whole Blood 373 mg/dL (60-115)
[2020-09-21 19:54] VITALS: BP 147/75; PULSE 57; RESP 20; TEMP 36.2; O2SAT 96
[2020-09-21 20:37] LABS: Glucose, Whole Blood 405 mg/dL (60-115)
--- NOTE | 2020-09-21 20:50 | PC.NURSE ---
P-BS 405 I-Dr. Deshpande notified E-will administer additional dose of insulin as ordered
[2020-09-21] MEDS: Insulin Glargine,Hum.rec.anlog 100 UNIT/ML 10 ML VIAL 65 UNIT SUBCUT (21:01)
[2020-09-21] MEDS: Gabapentin 600 MG TABLET PO (21:02)
[2020-09-21] MEDS: Atorvastatin Calcium 40 MG TABLET PO (21:04)
[2020-09-22] VITALS (14 sets, daily range): BP systolic 120–162; BP diastolic 67–85; PULSE 49–68; RESP 16–20; TEMP 36.1–37; O2SAT 94–96
[2020-09-22] MEDS: 0.9 % Sodium Chloride Flush 3 ML SYRINGE IVFLUSH ×3 (00:45→23:08)
[2020-09-22] MEDS: Omeprazole 40 MG CAPSULE.DR PO ×2 (06:33→16:23)
[2020-09-22 07:40] LABS: Glucose, Whole Blood 261 mg/dL (60-115)
[2020-09-22] MEDS: vancomycin HCL 1,000 MG in 0.9 % Sodium Chloride 250 ML 270 MG IV ×2 (08:42→20:45)
[2020-09-22] MEDS: Insulin Lispro 100 UNIT/ML 3 ML VIAL SUBCUT ×4 (08:43→20:46)
[2020-09-22] MEDS: Insulin Glargine,Hum.rec.anlog 100 UNIT/ML 10 ML VIAL 70 UNIT SUBCUT (08:43)
[2020-09-22] MEDS: Benzonatate 100 MG CAPSULE 200 MG PO ×3 (08:44→20:46)
[2020-09-22] MEDS: dexAMETHasone 4 MG TABLET 40 MG PO (08:44)
[2020-09-22] MEDS: bisacodyL 5 MG TABLET.DR PO ×2 (08:44→20:46)
[2020-09-22] MEDS: polyethylene glycoL 3350 17 GM POWD.PACK PO (08:44)
[2020-09-22] MEDS: Cholecalciferol (Vitamin D3) 25 MCG TABLET PO (08:44)
[2020-09-22] MEDS: FLUoxetine HCl 10 MG CAPSULE PO (08:44)
[2020-09-22] MEDS: Docusate Sodium 100 MG CAPSULE PO ×2 (08:44→20:46)
[2020-09-22 08:46] LABS: Hematocrit 33.1 % (42-52); Hemoglobin 11.8 g/dl (14.0-18.0); Mean Corpuscular HGB Conc 35.6 g/dl (31.0-36.0); Mean Corpuscular Hemoglobin 32.7 pg (27.0-33.0); Mean Corpuscular Volume 91.7 fL (80-98); Red Blood Count 3.61 X10*6/uL (4.60-5.80); Red Cell Distribution Width 11.3 % (11.0-16.0); White Blood Count 13.6 X10*3/uL (4.8-10.8)
[2020-09-22 09:02] LABS: Platelet Count 16 X10*3/uL (160-400)
[2020-09-22 09:06] LABS: Creatinine Clr Calc Pharmacy 133.1; Estimated Glomerular Filt Rate > 60
--- NOTE | 2020-09-22 09:53 | HO.PM.IMPN ---
Subjective Subjective Date of Service: 09/22/20 Interval History: Seen in f/u for post ampuation care, complicated by thrombocytopenia without bleeding complications. No other complaint ROS: Gen: no fever Resp: no sob, no cough CV: no chest, no ZIMMER[place], no leg edema GI: No n/v, no abd pain Neuro: No confusion Physical Exam Vital Signs: Vital Signs: Last Vital Signs Temp 97.2 F 09/22/20 07:29 Pulse 50 09/22/20 07:29 Resp 19 09/22/20 07:29 BP 148/85 H 09/22/20 07:29 Pulse Ox 96 09/22/20 07:29 Body Mass Index 37.2 Const: Other: Constitutional : Alert, oriented, not in distress Neck : Normal inspection, Supple Cardiovascular : RRR, S1 S2, no lower extremity edema Respiratory : Chest wall moving bilaterally, not in respiratory distress Gastrointestinal: soft, lax, Normal bowel sounds, Non tender Skin : Warm/Dry, foot in dressing, no erythema or drainage noted, Neurological : Alert & oriented x3, No focal deficit Objective Data Current Medications Generic Name Dose Route Start Last Admin Trade Name Freq PRN Reason Stop Dose Admin Acetaminophen 650 mg 09/05/20 06:55 09/19/20 12:05 Acetaminophen 325 Mg Tablet PO 650 mg Q6H PRN Administration Pain, Mild (Pain Scale 1-3) Artificial Tears 1 drop 09/07/20 18:26 09/07/20 21:47 Artificial Tears 15 Ml Drops EYE-BOTH 1 drop Q6H PRN Administration Dry Eyes Atorvastatin Calcium 40 mg 09/04/20 21:00 09/21/20 21:04 Atorvastatin Calcium 40 Mg Tablet PO 40 mg BEDTIME TJ Administration Benzonatate 200 mg 09/05/20 21:00 09/22/20 08:44 Benzonatate 100 Mg Capsule PO 200 mg TID TJ Administration Bisacodyl 5 mg 09/04/20 21:00 09/22/20 08:44 Bisacodyl 5 Mg Tablet.Dr PO 5 mg BID TJ Administration Dexamethasone 40 mg 09/17/20 18:00 09/22/20 08:44 Dexamethasone 4 Mg Tablet PO 40 mg DAILY TJ Administration Docusate Sodium 100 mg 09/15/20 16:20 09/22/20 08:44 Docusate Sodium 100 Mg Capsule PO 100 mg BID TJ Administration Fluoxetine HCl 10 mg 09/05/20 09:00 09/22/20 08:44 Fluoxetine Hcl 10 Mg Capsule PO 10 mg DAILY TJ Administration Gabapentin 600 mg 09/04/20 21:00 09/21/20 21:02 Gabapentin 600 Mg Tablet PO 600 mg BEDTIME TJ Administration Guaifenesin/Dextromethorphan 10 ml 09/05/20 17:19 09/09/20 09:41 Guaifenesin Dm 100/10/5 Ml 5 Ml Syrup PO 10 ml Q4H PRN Administration cough Vancomycin HCl 1,000 mg/ 270 mls @ 270 mls/hr 09/20/20 20:00 09/22/20 09:49 Sodium Chloride IV Infused Q12H TJ Infusion Insulin Glargine 70 unit 09/19/20 09:00 09/22/20 08:43 Insulin Glargine,Hum.Rec.Anlog 100 Unit/Ml 10 Ml Vial SUBCUT 70 unit DAILY TJ Administration Insulin Glargine 65 unit 09/19/20 21:00 09/21/20 21:01 Insulin Glargine,Hum.Rec.Anlog 100 Unit/Ml 10 Ml Vial SUBCUT 65 unit BEDTIME TJ Administration Insulin Human Lispro 0 unit 09/05/20 07:30 09/22/20 08:43 Insulin Lispro 100 Unit/Ml 3 Ml Vial SUBCUT 4 unit QIDACHS TJ Administration Protocol Lisinopril 5 mg 09/05/20 09:00 09/22/20 08:44 Lisinopril 5 Mg Tablet PO 5 mg DAILY TJ Administration Protocol Magnesium Hydroxide 30 ml 09/19/20 09:31 09/21/20 15:45 Milk Of Magnesia 30 Ml Oral.Susp PO 30 ml TID PRN Administration Constipation Omeprazole 40 mg 09/17/20 16:30 09/22/20 06:33 Omeprazole 40 Mg Capsule.Dr PO 40 mg BID@0630,1630 TJ Administration Ondansetron HCl 4 mg 09/05/20 06:55 Ondansetron Hcl 4 Mg/2 Ml Vial IVPUSH Q8H PRN Nausea and Vomiting Pharmacy Consult 1 each 09/04/20 14:11 Consult Rx Perform Med Rec MISCELLANE ONCE PRN Consult order Polyethylene Glycol 17 gm 09/07/20 18:30 09/22/20 08:44 Polyethylene Glycol 3350 17 Gm Powd.Pack PO 17 gm DAILY TJ Administration Sodium Chloride 3 ml 09/05/20 08:00 09/22/20 08:45 0.9 % Sodium Chloride Flush 3 Ml Syringe IVFLUSH 3 ml QSHIFT TJ Administration Sodium Chloride 1 spray 09/09/20 20:21 09/09/20 21:18 Sodium Chloride 0.65 % Nasal 44 Ml Sprbtl NOSTRIL-B 1 spray Q1H PRN Administration Dry Nasal Passages Vitamin D 25 mcg 09/05/20 09:00 09/22/20 08:44 Cholecalciferol (Vitamin D3) 25 Mcg Tablet PO 25 mcg DAILY TJ Administration Labs CBC & Chem 7: 09/22/20 08:08 09/22/20 08:08 Microbiology Microbiology Results: Microbiology 09/10/20 19:15 Blood - Venous Blood Culture - Final No growth after 5 days. 09/10/20 19:15 Blood - Venous Blood Culture - Final No growth after 5 days. 09/04/20 15:00 Blood - Venous Blood Culture - Final Methicillin Res Staph Aureus 09/04/20 14:45 Blood - Venous Blood Culture - Final Methicillin Res Staph Aureus Assessment and Plan (1) MRSA bacteremia: Status: Acute (2) Thrombocytopenia: Status: Acute (3) Diabetic foot ulcer: Problem details: MRSA bacteremia Due to foot wound Status: Acute (4) Necrosis of toe: Status: Acute Assessment and Plan: 60-year-old male with past medical history of diabetes as well as peripheral neuropathy who presents to the hospital with complaints of right toe wound, drainage 1. Sepsis due to diabetic foot ulcer with peripheral neuropathy with MRSA bacteremia. MRI 09/05/20 of the foot showed no inconclusive for osteomylitis. He was initially treated with vancomycin and Zosyn and consultations requested with ID and Vascular surgery. Blood cultures from 09/04/20 grew MRSA 2/2 and subsequent cultures have been negative. Dr. Figueroa performed angiogram and angioPlasty of posterior tibial artery on 09/06/20. He subsequently underwent amputation of the right big toe on 09/10/2020 and revise surgery on 09/18/[address] Figueroa and has been having dressing changes done. ID (Dr. Fleming) recommend 6 weeks of IV Vancomycin Day 12 of 42 as of today (09/21/20) last day should be 10/22/2020. A PICC line was inserted on September 19, 2020. He is to follow up with Dr. Figueroa in two weeks. He should continue having daily dressing changes. Thrombocytopenia -- On 09/04/20 platelet level was 214K platelet level started dropping on 09/12/20 to 82K and has steadily dropped to a low of 82 on09/13/20. Diferential diagnosis has included medication induced, HIT (Heparin induced Thrombocytopenia), ITP. Hematology consultation was requested with Dr. Padgett and HIT (Heparin induced Thrombocytopenia) work up is negative. 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 He was transfused 2 units of platlets on 09/17/20 prior to surgery when platlet was 21K. He presently has no bleeding issues and no petachia rash of any sort. Asprin on hold. Plat 16 today, transfuse 2 units of Plat[place] today 09/22/20 Diabetes with high sugars from steroid--Sugars have been on the high side due steroid. In the hospital, he has been on Lantus 70 units at night and 65 units in the morning in addition to sliding scale. Metformin has been on hold but can resume upon discharge and should resume Tresiba upon discharge. This was not on forumulary here. Constipation--Mirilax, Mom, Colace Hypomagnesemia 1.5 on admission and repeat after correction 2 HTN--to coneinue Lisinopril 10 mg dialy, previously 5 Hyperlipidemia--continue Lipitor 40 Insurance declined SNF, so will arrange for home with IV Abx once Platlets is corrected
[2020-09-22 11:37] LABS: Glucose, Whole Blood 335 mg/dL (60-115)
--- NOTE | 2020-09-22 12:24 | MHC.CM.PN ---
PER CONVERSATION WITH HOSPITALIST, PLATELETS COUNT IS WORSENING. [facility] NOTIFIED. CASE MANAGEMENT FOLLOWING
--- NOTE | 2020-09-22 14:00 | PC.NURSE ---
trouble finding blood bank # on platlets
--- NOTE | 2020-09-22 14:08 | PM.HEMONCPN ---
Medical Summary - Medical Summary Date of Service: 09/22/20 (He remains thrombocytopenic with 16,000 platelets. The INR is 1.3.) Medical Summary: DIAGNOSIS: THROMBOCYTOPENIA. His platelets have dropped to 18,000. Recommend another four days of steroids and transfuse one pheresis unit of plateelts. Interval History Interval history: He will need to be transfuced with platelets today. Would continue the steroids. Review of Systems - Neurologic Reports system reviewed and no additional complaints, except as documented, Reports weakness PMFSH Medical History: Medical History (Last Updated 09/22/20 @ 09:55 by Zack Adrian MD) Back pain Hyperlipidemia Hypertension IDDM (insulin dependent diabetes mellitus) Neck pain Peripheral neuropathy Psychiatric diagnosis Sleep apnea Functional capacity: uses cane/walker Family history: reviewed and not pertinent Surgical History: Surgical History (Last Reviewed 09/20/20 @ 10:40 by Olimpia Murguia PT) H/O colonoscopy Hx of angioplasty Hx of appendectomy Hx of foot surgery Hx of tonsillectomy Hx of umbilical hernia repair Social History: Social History (Last Reviewed 09/17/20 @ 12:21 by Tha Baez) Living Situation History: Household Members: None Housing: Apartment Do you presently have visiting nurse or other home services: Yes Do you presently have visiting nurse or other home services comment: 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 If so, by whom?: No Do you feel safe in your current relationship?: No Current Relationship Is there a partner from a previous relationship who is making you feel unsafe now?: No Are you made to feel afraid or neglected: No Advance Directives: Are you DNR?: No Advance Directives: No Advance Directives Information Provided: Yes Homicidal Assessment: Do you have thoughts of harming others: None Do you have a plan to hurt others: No Plan Nutrition Assessment: Recently lost weight without trying: Yes How much weight loss: Unsure Eating poorly because of decreased appetite: Yes Nutrition screen score: 5 Nutrition Risks: No Nutritional Risk Patient : No Poor oral hygiene: No Occupation Assessmet: service: Yes Current occupational status: unemployed Smoking status: Former smoker Home Medications and Allergies Current Medications: Current Medications Generic Name Dose Route Start Last Admin Trade Name Freq PRN Reason Stop Dose Admin Acetaminophen 650 mg 09/05/20 06:55 09/19/20 12:05 Acetaminophen 325 Mg Tablet PO 650 mg Q6H PRN Administration Pain, Mild (Pain Scale 1-3) Artificial Tears 1 drop 09/07/20 18:26 09/07/20 21:47 Artificial Tears 15 Ml Drops EYE-BOTH 1 drop Q6H PRN Administration Dry Eyes Atorvastatin Calcium 40 mg 09/04/20 21:00 09/21/20 21:04 Atorvastatin Calcium 40 Mg Tablet PO 40 mg BEDTIME TJ Administration Benzonatate 200 mg 09/05/20 21:00 09/22/20 08:44 Benzonatate 100 Mg Capsule PO 200 mg TID TJ Administration Bisacodyl 5 mg 09/04/20 21:00 09/22/20 08:44 Bisacodyl 5 Mg Tablet.Dr PO 5 mg BID TJ Administration Dexamethasone 40 mg 09/17/20 18:00 09/22/20 08:44 Dexamethasone 4 Mg Tablet PO 40 mg DAILY TJ Administration Docusate Sodium 100 mg 09/15/20 16:20 09/22/20 08:44 Docusate Sodium 100 Mg Capsule PO 100 mg BID TJ Administration Fluoxetine HCl 10 mg 09/05/20 09:00 09/22/20 08:44 Fluoxetine Hcl 10 Mg Capsule PO 10 mg DAILY TJ Administration Gabapentin 600 mg 09/04/20 21:00 09/21/20 21:02 Gabapentin 600 Mg Tablet PO 600 mg BEDTIME TJ Administration Guaifenesin/Dextromethorphan 10 ml 09/05/20 17:19 09/09/20 09:41 Guaifenesin Dm 100/10/5 Ml 5 Ml Syrup PO 10 ml Q4H PRN Administration cough Vancomycin HCl 1,000 mg/ 270 mls @ 270 mls/hr 09/20/20 20:00 09/22/20 09:49 Sodium Chloride IV Infused Q12H TJ Infusion Insulin Glargine 70 unit 09/19/20 09:00 09/22/20 08:43 Insulin Glargine,Hum.Rec.Anlog 100 Unit/Ml 10 Ml Vial SUBCUT 70 unit DAILY TJ Administration Insulin Glargine 65 unit 09/19/20 21:00 09/21/20 21:01 Insulin Glargine,Hum.Rec.Anlog 100 Unit/Ml 10 Ml Vial SUBCUT 65 unit BEDTIME TJ Administration Insulin Human Lispro 0 unit 09/05/20 07:30 09/22/20 12:17 Insulin Lispro 100 Unit/Ml 3 Ml Vial SUBCUT 8 unit QIDACHS [facility] Administration Protocol Lisinopril 5 mg 09/05/20 09:00 09/22/20 08:44 Lisinopril 5 Mg Tablet PO 5 mg DAILY TJ Administration Protocol Magnesium Hydroxide 30 ml 09/19/20 09:31 09/21/20 15:45 Milk Of Magnesia 30 Ml Oral.Susp PO 30 ml TID PRN Administration Constipation Omeprazole 40 mg 09/17/20 16:30 09/22/20 06:33 Omeprazole 40 Mg Capsule.Dr PO 40 mg BID@4901,9034 TJ Administration Ondansetron HCl 4 mg 09/05/20 06:55 Ondansetron Hcl 4 Mg/2 Ml Vial IVPUSH Q8H PRN Nausea and Vomiting Pharmacy Consult 1 each 09/04/20 14:11 Consult Rx Perform Med Rec MISCELLANE ONCE PRN Consult order Polyethylene Glycol 17 gm 09/07/20 18:30 09/22/20 08:44 Polyethylene Glycol 3350 17 Gm Powd.Pack PO 17 gm DAILY TJ Administration Sodium Chloride 3 ml 09/05/20 08:00 09/22/20 08:45 0.9 % Sodium Chloride Flush 3 Ml Syringe IVFLUSH 3 ml QSHIFT [facility] Administration Sodium Chloride 1 spray 09/09/20 20:21 09/09/20 21:18 Sodium Chloride 0.65 % Nasal 44 Ml Sprbtl NOSTRIL-B 1 spray Q1H PRN Administration Dry Nasal Passages Vitamin D 25 mcg 09/05/20 09:00 09/22/20 08:44 Cholecalciferol (Vitamin D3) 25 Mcg Tablet PO 25 mcg DAILY TJ Administration Home Medications Medication Instructions Recorded Confirmed Type aspirin 81 mg PO DAILY 07/17/20 09/04/20 History atorvastatin 40 mg PO BEDTIME 07/17/20 09/04/20 History gabapentin 600 mg PO BEDTIME 07/17/20 09/04/20 History insulin degludec [Tresiba 80 unit SUBCUT QAM 07/17/20 09/04/20 History FlexTouch U-100] ipratropium-albuterol [Combivent 2 puff INHALATION Q6H PRN 07/17/20 09/04/20 History Respimat] liraglutide [Victoza 3-Chet] 1.8 mg SUBCUT DAILY 07/17/20 09/04/20 History lisinopril 5 mg PO DAILY 07/17/20 09/04/20 History metformin 1,000 mg PO BID 07/17/20 09/04/20 History bisacodyl 5 mg PO BID 09/04/20 09/04/20 History cholecalciferol (vitamin D3) 25 mcg PO DAILY 09/04/20 09/04/20 History fluoxetine 10 mg PO DAILY 09/04/20 09/04/20 History insulin degludec [Tresiba 65 unit SUBCUT BEDTIME 09/04/20 09/04/20 History FlexTouch U-100] Allergies Allergy/AdvReac Type Severity Reaction Status Date / Time No Known Allergies Allergy Verified 07/15/20 11:10 [No Known Allergies*] Exam Vital signs: Vital Signs Temp 97.0 F 09/22/20 13:50 Pulse 65 09/22/20 13:50 Resp 18 09/22/20 13:50 BP 120/67 09/22/20 13:50 Pulse Ox 96 09/22/20 07:29 Intake & Output 09/21/20 09/22/20 09/22/20 18:59 06:59 18:59 Intake Total 850 / 1240 390 / 1240 270 / 270 Output Total 1250 / 3050 1800 / 3050 Balance -400 / -1810 -1410 / -1810 270 / 270 Urine Output (Average ml/kg/hr) 0.79 1.14 1.14 Intake: Intake, Oral Amount 580 / 700 120 / 700 Intake (Blood Product) Amount 0 / 0 Plt Aph Pas Pathreduced([id number]) 0 / 0 Unit [id number] Intake, IV Amount 270 / 540 270 / 540 270 / 270 vancomycin HCL 1,000 mg In 0.9 270 / 540 270 / 540 270 / 270 % Sodium Chloride 250 ml @ 270 mls/hr IV Q12H TJ Rx#: [id number] Output: Output, Urine Amount 1250 / 3050 1800 / 3050 Other: Breakfast % Eaten 100% Number of Bowel Movements 1 Urine Urinal Urinal Urine Color Yellow Yellow Stool Bathroom Stool Amount Moderate Stool Color Brown Stool Consistency Formed Weight 131.542 kg Body Mass Index 37.2 - Constitutional Present: mild distress - Routine HEENT Exam Head: Present: normal inspection - Routine Cardiovascular Exam Cardiovascular: Present: RRR, S1, S2 - Routine Abdominal Exam Present: soft, nontender - Routine Extremities Exam Present: nontender - Routine Back/Spine/Pelvis Exam Back/Spine: Absent: CVA tenderness - Routine Neurological Exam Present: alert, oriented X3 - Detailed Neurological Exam: Coma Scale Eye Opening: Spontaneous (4) Data - Labs CBC & Chem 7: 09/22/20 08:08 09/22/20 08:08 Labs: 09/04/20 Add Laboratory Test Stat 09/04/20 11:43 XR foot RT min 3V Stat 09/04/20 14:11 ECG 12 lead EKG Stat EKG Documentation DIRECTED 09/04/20 14:12 XR chest 1V Stat 09/04/20 14:13 Piperacillin Sodium/Tazobactam [Zosyn] 3.375 gm 0.9 % Sodium Chloride [Ns] 50 ml IV ONCE 09/04/20 14:15 Consult Rx Vancomycin Dosing 1 each MISCELLANE DAILY PRN vancomycin HCL 1,000 mg vancomycin HCL 750 mg 0.9 % Sodium Chloride [Ns] 500 ml IV ONCE 09/04/20 14:27 Piperacillin Sodium/Tazobactam [Zosyn] 3.375 gm IV .STK-MED ONE 09/04/20 14:44 B Type Natriuretic Peptide Stat Procalcitonin Stat 09/04/20 14:45 Ferritin Stat Lactic Acid Stat Partial Thromboplastin Time Stat Prothrombin Time INR Stat 09/04/20 14:46 Basic Metabolic Panel Stat C Reactive Protein Stat Complete Blood Count Auto Diff Stat Erythrocyte Sedimentation Rate Stat Lactate Dehydrogenase Stat Liver Panel Stat Magnesium Stat SLIDE REVIEW Stat 09/04/20 15:00 SARS-CoV2/FLU/RSV Stat Blood Culture X2 [BC] Stat 09/04/20 16:53 vancomycin HCL 1,000 mg .ROUTE .STK-MED ONE vancomycin HCL 750 mg IV .STK-MED ONE 09/04/20 17:18 Consult Rx Vancomycin Dosing 1 each MISCELLANE DAILY PRN 09/04/20 17:27 vancomycin HCL 1,000 mg vancomycin HCL 750 mg 0.9 % Sodium Chloride [Ns] 500 ml IV ONCE 09/04/20 17:30 vancomycin HCL 1,000 mg vancomycin HCL 750 mg 0.9 % Sodium Chloride [Ns] 500 ml IV ONCE 09/04/20 17:39 vancomycin HCL 1,000 mg .ROUTE .STK-MED ONE vancomycin HCL 750 mg IV .STK-MED ONE 09/04/20 19:10 US venous duplex LE RT Stat 09/04/20 20:00 UA CC w/rflx Micro + Cult Stat 09/04/20 20:45 Transfer Order Routine 09/04/20 20:52 Consult Rx Vancomycin Dosing 1 each MISCELLANE DAILY PRN 09/04/20 21:00 Piperacillin Sodium/Tazobactam [Zosyn] 3.375 gm 0.9 % Sodium Chloride [Ns] 50 ml IV Q6H 09/04/20 21:14 Piperacillin Sodium/Tazobactam [Zosyn] 3.375 gm IV .STK-MED ONE 09/04/20 22:07 Glucose, Whole Blood Routine 09/04/20 22:28 guaiFENesin DM 100/10/5 ML [Robitussin DM 100/10/5 ML] 5 ml PO Q4H PRN 09/04/20 22:30 Insulin Glargine,Hum.rec.anlog [Lantus] 45 unit SUBCUT BEDTIME 09/04/20 22:51 US MAGNUS complete Routine 09/05/20 03:35 Piperacillin Sodium/Tazobactam [Zosyn] 3.375 gm IV .STK-MED ONE 09/05/20 03:48 Benzonatate [Tessalon] 200 mg PO TID PRN 09/05/20 06:00 vancomycin HCL 750 mg IV Q12H 09/05/20 06:32 Magnesium Sulfate/H2O 2 gm in 50 ml IV ONCE 09/05/20 06:45 Heparin Sodium,Porcine 5,000 unit SUBCUT Q12H 09/05/20 06:55 Docusate Sodium [Colace] 100 mg PO DAILY PRN 09/05/20 08:16 Glucose, Whole Blood Routine 09/05/20 08:57 Piperacillin Sodium/Tazobactam [Zosyn] 3.375 gm IV .STK-MED ONE 09/05/20 09:00 Aspirin Enteric Coated [Ecotrin] 81 mg PO DAILY Insulin Glargine,Hum.rec.anlog [Lantus] 56 unit SUBCUT DAILY 09/05/20 Breakfast Diabetic Diet 09/05/20 11:07 Glucose, Whole Blood Routine 09/05/20 12:35 US arterial duplex LE BI Routine 09/05/20 13:12 GadobutroL [Gadavist] 10 ml IVPUSH ONCE ONE 09/05/20 14:36 Glucose, Whole Blood Routine 09/05/20 15:50 Clopidogrel Bisulfate [Plavix] 75 mg PO DAILY 09/05/20 15:54 Piperacillin Sodium/Tazobactam [Zosyn] 3.375 gm IV .STK-MED ONE 09/05/20 16:27 Glucose, Whole Blood Routine 09/05/20 17:18 TiZANidine HCL [Zanaflex] 4 mg PO ONCE ONE 09/05/20 18:24 RT BiPAP/CPAP STAT 09/05/20 20:39 Glucose, Whole Blood Routine 09/05/20 20:52 MR foot RT wo/w con Routine 09/05/20 21:00 Insulin Glargine,Hum.rec.anlog [Lantus] 45 unit SUBCUT BEDTIME 09/05/20 21:07 Piperacillin Sodium/Tazobactam [Zosyn] 3.375 gm IV .STK-MED ONE 09/06/20 IR station captain tibioperoneal & branchs Routine IR us guide needle place Routine 09/06/20 02:50 Piperacillin Sodium/Tazobactam [Zosyn] 3.375 gm IV .STK-MED ONE 09/06/20 05:09 Basic Metabolic Panel Routine Complete Blood Count Auto Diff Routine Magnesium Routine Vancomycin Trough Stat 09/06/20 06:00 Glucose, Whole Blood Routine 09/06/20 07:00 vancomycin HCL 1,000 mg 0.9 % Sodium Chloride [Ns] 250 ml IV Q12H 09/06/20 07:13 Heparin Sodium (Porcine)/NS/PF 2,000 unit in 1,000 ml IV As directed Lidocaine HCl 1 % MPF [Xylocaine 1 % MPF] 5 ml .ROUTE .STK-MED ONE iohexoL 300 MG/ML [Omnipaque 300 MG/ML] 100 ml IV .STK-MED ONE iohexoL 300 MG/ML [Omnipaque 300 MG/ML] 50 ml IV .STK-MED ONE 09/06/20 07:38 Heparin Sodium,Porcine 10,000 unit IVPUSH .STK-MED ONE Midazolam HCl/PF [Versed] 2 mg .ROUTE .STK-MED ONE Naloxone HCl [Narcan] 0.4 mg .ROUTE .STK-MED ONE fentaNYL citrate/PF [Sublimaze] 50 mcg .ROUTE .STK-MED ONE flumazeniL [Romazicon] 0.05 mg .ROUTE .STK-MED ONE 09/06/20 09:04 Vital Signs Q30M 09/06/20 09:53 Piperacillin Sodium/Tazobactam [Zosyn] 3.375 gm IV .STK-MED ONE 09/06/20 Breakfast Diabetic Diet 09/06/20 10:53 Lidocaine HCl 1 % MPF [Xylocaine 1 % MPF] 10 ml SUBCUT ONCE ONE 09/06/20 10:54 iohexoL 300 MG/ML [Omnipaque 300 MG/ML] 100 ml IV ONCE ONE 09/06/20 11:13 Glucose, Whole Blood Routine 09/06/20 11:57 vancomycin HCL 1,000 mg .ROUTE .STK-MED ONE 09/06/20 12:00 vancomycin HCL 1,000 mg 0.9 % Sodium Chloride [Ns] 250 ml IV Q12H 09/06/20 15:03 Piperacillin Sodium/Tazobactam [Zosyn] 3.375 gm IV .STK-MED ONE 09/06/20 16:33 Glucose, Whole Blood Routine 09/06/20 20:38 Piperacillin Sodium/Tazobactam [Zosyn] 3.375 gm IV .STK-MED ONE 09/06/20 20:46 Glucose, Whole Blood Routine 09/06/20 23:08 vancomycin HCL 1,000 mg .ROUTE .STK-MED ONE 09/07/20 03:47 Piperacillin Sodium/Tazobactam [Zosyn] 3.375 gm IV .STK-MED ONE 09/07/20 07:22 Glucose, Whole Blood Routine 09/07/20 07:56 Basic Metabolic Panel Routine 09/07/20 08:16 Piperacillin Sodium/Tazobactam [Zosyn] 3.375 gm IV .STK-MED ONE 09/07/20 11:37 Glucose, Whole Blood Routine 09/07/20 12:30 vancomycin HCL 1,000 mg .ROUTE .STK-MED ONE 09/07/20 16:18 Piperacillin Sodium/Tazobactam [Zosyn] 3.375 gm IV .STK-MED ONE 09/07/20 16:20 Piperacillin Sodium/Tazobactam [Zosyn] 3.375 gm IV .STK-MED ONE 09/07/20 16:43 Glucose, Whole Blood Routine 09/07/20 20:36 Glucose, Whole Blood Routine 09/07/20 21:33 Piperacillin Sodium/Tazobactam [Zosyn] 3.375 gm IV .STK-MED ONE 09/07/20 23:13 Vancomycin Trough Stat 09/08/20 00:54 vancomycin HCL 1,000 mg .ROUTE .STK-MED ONE 09/08/20 03:01 Piperacillin Sodium/Tazobactam [Zosyn] 3.375 gm IV .STK-MED ONE 09/08/20 07:28 Glucose, Whole Blood Routine 09/08/20 07:55 Piperacillin Sodium/Tazobactam [Zosyn] 3.375 gm IV .STK-MED ONE 09/08/20 11:23 Lactulose [Chronulac] 30 gm PO ONCE ONE 09/08/20 11:52 Glucose, Whole Blood Routine 09/08/20 13:00 vancomycin HCL 750 mg vancomycin HCL 500 mg 0.9 % Sodium Chloride [Ns] 250 ml IV Q12H 09/08/20 15:21 Piperacillin Sodium/Tazobactam [Zosyn] 3.375 gm IV .STK-MED ONE 09/08/20 16:53 Glucose, Whole Blood Routine 09/08/20 20:00 Glucose, Whole Blood Routine 09/08/20 22:45 Piperacillin Sodium/Tazobactam [Zosyn] 3.375 gm IV .STK-MED ONE 09/08/20 23:10 Lactulose [Chronulac] 20 gm PO ONCE ONE 09/09/20 02:47 Piperacillin Sodium/Tazobactam [Zosyn] 3.375 gm IV .STK-MED ONE 09/09/20 07:25 Glucose, Whole Blood Routine 09/09/20 08:17 Piperacillin Sodium/Tazobactam [Zosyn] 3.375 gm IV .STK-MED ONE 09/09/20 11:14 Glucose, Whole Blood Routine 09/09/20 11:58 Vancomycin Trough Stat 09/09/20 12:13 Lactulose [Chronulac] 40 gm PO ONCE ONE 09/09/20 12:26 Basic Metabolic Panel Routine Complete Blood Count Auto Diff Routine 09/09/20 15:52 Piperacillin Sodium/Tazobactam [Zosyn] 3.375 gm IV .STK-MED ONE 09/09/20 16:01 Glucose, Whole Blood Routine 09/09/20 20:05 Piperacillin Sodium/Tazobactam [Zosyn] 3.375 gm IV .STK-MED ONE 09/09/20 20:20 Sodium Phosphate,Casey-Dibasic [Fleet Enema] 133 ml NC ONCE ONE 09/09/20 20:28 Glucose, Whole Blood Routine 09/09/20 21:00 Insulin Glargine,Hum.rec.anlog [Lantus] 50 unit SUBCUT BEDTIME 09/09/20 21:10 Piperacillin Sodium/Tazobactam [Zosyn] 3.375 gm IV .STK-MED ONE 09/10/20 02:48 Piperacillin Sodium/Tazobactam [Zosyn] 3.375 gm IV .STK-MED ONE 09/10/20 06:12 Basic Metabolic Panel DAILY@0600 09/10/20 07:50 Glucose, Whole Blood Routine 09/10/20 08:48 Piperacillin Sodium/Tazobactam [Zosyn] 3.375 gm IV .STK-MED ONE 09/10/20 09:00 Insulin Glargine,Hum.rec.anlog [Lantus] 60 unit SUBCUT DAILY 09/10/20 11:43 Glucose, Whole Blood Routine 09/10/20 12:37 propofoL [Diprivan] 200 mg IVPUSH .STK-MED ONE 09/10/20 12:38 propofoL [Diprivan] 200 mg IVPUSH .STK-MED ONE 09/10/20 12:40 Continuous pulse oximetry CONT 09/10/20 12:42 Lidocaine HCl 1 % MPF [Xylocaine 1 % MPF] 5 ml .ROUTE .STK-MED ONE 09/10/20 12:45 Lactated Ringers [Lr] 1,000 ml IVCONT 20 mls/hr 09/10/20 13:31 Surgical [PTH] Routine 09/10/20 14:22 Transfer Order Routine 09/10/20 15:46 Piperacillin Sodium/Tazobactam [Zosyn] 3.375 gm IV .STK-MED ONE 09/10/20 16:22 Glucose, Whole Blood Routine 09/10/20 Dinner Diabetic Diet 09/10/20 19:15 Blood Culture X2 [BC] Routine 09/10/20 21:02 Glucose, Whole Blood Routine 09/10/20 21:22 Piperacillin Sodium/Tazobactam [Zosyn] 3.375 gm IV .STK-MED ONE 09/11/20 00:16 Vancomycin Trough Stat 09/11/20 01:39 vancomycin HCL 500 mg IV .STK-MED ONE vancomycin HCL 750 mg IV .STK-MED ONE 09/11/20 03:11 Piperacillin Sodium/Tazobactam [Zosyn] 3.375 gm IV .STK-MED ONE 09/11/20 06:02 Basic Metabolic Panel DAILY@0600 09/11/20 07:31 Glucose, Whole Blood Routine 09/11/20 08:08 Piperacillin Sodium/Tazobactam [Zosyn] 3.375 gm IV .STK-MED ONE 09/11/20 11:17 Glucose, Whole Blood Routine 09/11/20 15:08 Piperacillin Sodium/Tazobactam [Zosyn] 3.375 gm IV .STK-MED ONE 09/11/20 16:05 Glucose, Whole Blood Routine 09/11/20 20:22 Glucose, Whole Blood Routine 09/11/20 20:29 NaPROXEN [Naprosyn] 250 mg PO ONCE ONE 09/12/20 00:52 vancomycin HCL 500 mg IV .STK-MED ONE 09/12/20 05:55 Basic Metabolic Panel DAILY@0600 Complete Blood Count Auto Diff DAILY@0600 09/12/20 07:17 Glucose, Whole Blood Routine 09/12/20 11:06 Glucose, Whole Blood Routine 09/12/20 16:20 Glucose, Whole Blood Routine 09/12/20 20:17 Glucose, Whole Blood Routine 09/13/20 00:16 Vancomycin Trough Routine 09/13/20 06:39 Basic Metabolic Panel DAILY@0600 Complete Blood Count Auto Diff DAILY@0600 09/13/20 07:07 Glucose, Whole Blood Routine 09/13/20 08:30 vancomycin HCL 1,000 mg 0.9 % Sodium Chloride [Ns] 250 ml IV Q12H 09/13/20 09:54 vancomycin HCL 1,000 mg .ROUTE .[facility]-MED ONE 09/13/20 11:36 Glucose, Whole Blood Routine 09/13/20 16:15 Glucose, Whole Blood Routine 09/13/20 16:54 D Dimer Routine Fibrinogen Routine Heparin Induced Thrombocytopen Routine Immunofixation Pnl, Serum Routine Lactate Dehydrogenase Routine Partial Thromboplastin Time Routine Prothrombin Time INR Routine 09/13/20 20:09 Vancomycin Trough Routine 09/13/20 20:14 Glucose, Whole Blood Routine 09/13/20 22:10 vancomycin HCL 1,000 mg .ROUTE .[facility] ONE 09/14/20 06:16 Basic Metabolic Panel DAILY@0600 Complete Blood Count Auto Diff DAILY@0600 09/14/20 07:44 Glucose, Whole Blood Routine 09/14/20 08:27 vancomycin HCL 1,000 mg .ROUTE .[facility] ONE 09/14/20 08:42 vancomycin HCL 1,000 mg .ROUTE .[facility] 09/14/20 11:39 Glucose, Whole Blood Routine 09/14/20 16:56 Glucose, Whole Blood Routine 09/14/20 20:00 Vancomycin Trough Routine 09/14/20 20:35 Glucose, Whole Blood Routine 09/14/20 20:45 vancomycin HCL 1,000 mg .ROUTE .[facility] ONE 09/15/20 07:12 Basic Metabolic Panel DAILY@0600 Complete Blood Count Auto Diff DAILY@0600 09/15/20 07:22 Glucose, Whole Blood Routine 09/15/20 09:54 vancomycin HCL 1,000 mg .ROUTE .[facility] ONE 09/15/20 12:01 Glucose, Whole Blood Routine 09/15/20 16:18 Milk of Magnesia [Mom] 30 ml PO ONCE ONE 09/15/20 16:20 Glucose, Whole Blood Routine 09/15/20 20:13 Glucose, Whole Blood Routine 09/15/20 21:04 vancomycin HCL 1,000 mg .ROUTE .[facility] 09/16/20 06:58 Basic Metabolic Panel DAILY@0600 Complete Blood Count Auto Diff DAILY@0600 Prothrombin Time INR Routine Vancomycin Trough Routine 09/16/20 07:19 Glucose, Whole Blood Routine 09/16/20 09:06 vancomycin HCL 1,000 mg .ROUTE .STK-MED ONE 09/16/20 Breakfast Diabetic Diet NPO Diet 09/16/20 11:18 Glucose, Whole Blood Routine 09/16/20 13:00 CA echo transthoracic complete Routine 09/16/20 16:13 Glucose, Whole Blood Routine 09/16/20 17:46 Glucose, Whole Blood Routine 09/16/20 20:57 Glucose, Whole Blood Routine 09/16/20 21:04 vancomycin HCL 1,000 mg .ROUTE .STK-MED ONE 09/17/20 05:49 Basic Metabolic Panel DAILY@0600 Complete Blood Count Auto Diff DAILY@0600 Prothrombin Time INR DAILY@0600 SLIDE REVIEW Routine 09/17/20 07:33 Glucose, Whole Blood Routine 09/17/20 08:09 Insulin Glargine,Hum.rec.anlog [Lantus] 15 unit SUBCUT ONCE ONE 09/17/20 08:11 Pheresis Platelets Routine Type and Screen Routine 09/17/20 08:22 vancomycin HCL 1,000 mg .ROUTE .STK-MED ONE 09/17/20 Breakfast NPO Diet 09/17/20 11:09 Glucose, Whole Blood Routine 09/17/20 12:47 fentaNYL citrate/PF [Sublimaze] 50 mcg .ROUTE .STK-MED ONE propofoL [Diprivan] 200 mg IVPUSH .STK-MED ONE 09/17/20 12:52 dexmedeTOMIDidine HCL [Precedex] 80 mcg .ROUTE .STK-MED ONE 09/17/20 13:15 Bupivacaine MPF 0.5 % [Sensorcaine MPF 0.5% 10 ML] 10 ml .ROUTE .STK-MED ONE 09/17/20 13:16 Lidocaine HCl 1 % MPF [Xylocaine 1 % MPF] 5 ml .ROUTE .STK-MED ONE 09/17/20 13:40 fentaNYL citrate/PF [Sublimaze] 50 mcg .ROUTE .STK-MED ONE 09/17/20 13:42 Metoclopramide HCl [Reglan] 10 mg .ROUTE .STK-MED ONE ondansetron HCL [Zofran] 4 mg .ROUTE .STK-MED ONE 09/17/20 13:49 ePHEDrine sulfate 50 mg .ROUTE .STK-MED ONE 09/17/20 13:53 propofoL [Diprivan] 200 mg IVPUSH .K-MED ONE 09/17/20 14:01 Surgical [PTH] Routine 09/17/20 14:35 Phenylephrine HCL 1,000 mcg IVPUSH .K-MED ONE 09/17/20 15:12 Transfer Order Routine 09/17/20 16:37 Glucose, Whole Blood Routine 09/17/20 18:56 Vancomycin Trough Routine 09/17/20 20:03 vancomycin HCL 1,000 mg .ROUTE .K-MED ONE 09/17/20 20:58 Glucose, Whole Blood Routine 09/18/20 06:02 Basic Metabolic Panel DAILY@0600 Complete Blood Count no Diff DAILY@0600 09/18/20 07:19 Glucose, Whole Blood Routine 09/18/20 08:13 vancomycin HCL 1,000 mg .ROUTE .[facility]-MED ONE 09/18/20 11:55 Glucose, Whole Blood Routine 09/18/20 13:09 Compression Therapy QSHIFT 09/18/20 13:15 Milk of Magnesia [Mom] 30 ml PO ONCE ONE 09/18/20 16:18 Glucose, Whole Blood Routine 09/18/20 16:55 Insulin Lispro [Humalog] 5 unit SUBCUT ONCE ONE 09/18/20 20:18 Glucose, Whole Blood Routine 09/18/20 20:46 vancomycin HCL 1,000 mg .ROUTE .[facility]-MED ONE 09/18/20 21:00 Insulin Glargine,Hum.rec.anlog [Lantus] 60 unit SUBCUT BEDTIME 09/19/20 06:18 Basic Metabolic Panel DAILY@0600 Complete Blood Count no Diff DAILY@0600 Vancomycin Trough Stat 09/19/20 07:33 Glucose, Whole Blood Routine 09/19/20 07:42 vancomycin HCL 1,000 mg .ROUTE .[facility]-MED ONE 09/19/20 09:00 Insulin Glargine,Hum.rec.anlog [Lantus] 66 unit SUBCUT DAILY 09/19/20 09:30 IR cvc insert peripheral Routine 09/19/20 11:13 Glucose, Whole Blood Routine 09/19/20 16:25 Glucose, Whole Blood Routine 09/19/20 16:42 Insulin Lispro [Humalog] 5 unit SUBCUT ONCE ONE 09/19/20 20:05 Glucose, Whole Blood Routine 09/19/20 20:29 vancomycin HCL 1,000 mg .ROUTE .[facility]-MED ONE 09/19/20 22:38 Glucose, Whole Blood Routine 09/19/20 22:41 Insulin Lispro [Humalog] 5 unit SUBCUT ONCE ONE 09/20/20 05:56 Complete Blood Count no Diff DAILY@0600 09/20/20 07:50 Glucose, Whole Blood Routine 09/20/20 08:19 vancomycin HCL 1,000 mg .ROUTE .[facility]-MED ONE 09/20/20 11:50 Glucose, Whole Blood Routine 09/20/20 16:36 Glucose, Whole Blood Routine 09/20/20 20:20 vancomycin HCL 1,000 mg .ROUTE .[facility]-MED ONE 09/20/20 20:21 Glucose, Whole Blood Routine 09/20/20 21:33 Glucose, Whole Blood Routine 09/20/20 22:05 Insulin Lispro [Humalog] 10 unit SUBCUT ONCE ONE 09/21/20 06:00 Complete Blood Count no Diff Routine 09/21/20 07:11 Glucose, Whole Blood Routine 09/21/20 07:42 Vancomycin Trough Stat 09/21/20 09:42 COVID-19 ID NOW (Alvarez) Stat 09/21/20 10:19 vancomycin HCL 1,000 mg .ROUTE .[facility] ONE 09/21/20 11:26 Glucose, Whole Blood Routine Laboratory Last Values WBC 10.5 X10*3/uL (4.8-10.8) 09/21/20 06:00 RBC 3.42 X10*6/uL (4.60-5.80) L 09/21/20 06:00 Hgb 11.3 g/dl (14.0-18.0) L 09/21/20 06:00 Hct 32.0 % (42-52) L 09/21/20 06:00 MCV 93.6 fL (80-98) 09/21/20 06:00 MCH 33.0 pg (27.0-33.0) 09/21/20 06:00 MCHC 35.3 g/dl (31.0-36.0) 09/21/20 06:00 RDW 11.4 % (11.0-16.0) 09/21/20 06:00 Plt Count 18 X10*3/uL (160-400) L* 09/21/20 06:00 MPV Not Reportable 09/21/20 06:00 Immature Gran % (Auto) 1.1 % (0.0-0.4) H 09/17/20 05:49 Neut % (Auto) 81.3 % (45-73) H 09/17/20 05:49 Lymph % (Auto) 9.6 % (20-40) L 09/17/20 05:49 Casey % (Auto) 7.3 % (2-11) 09/17/20 05:49 Eos % (Auto) 0.5 % (0-4) 09/17/20 05:49 Baso % (Auto) 0.2 % (0-2) 09/17/20 05:49 Lymph # (Auto) 1.2 X10*3/uL (1.2-4.9) 09/17/20 05:49 Casey # (Auto) 0.9 X10*3/uL (0.1-1.2) 09/17/20 05:49 Eos # (Auto) 0.1 X10*3/uL (0.0-0.4) 09/17/20 05:49 Baso # (Auto) 0.0 X10*3/uL (0.0-0.2) 09/17/20 05:49 Abs Immat Gran (auto) 0.14 X10*3/uL (0.00-0.03) H 09/17/20 05:49 Absolute Neuts (auto) 10.4 X10*3/uL (2.0-8.3) H 09/17/20 05:49 Absolute Nucleated RBC 0.000 X10*3/uL (0.0-0.012) 09/21/20 06:00 Nucleated RBC % (auto) 0.0 /100WBC (0.0-0.2) 09/21/20 06:00 Smear Tech's Comments VERIFIED 09/17/20 05:49 ESR 90 MM/HR (0-15) H 09/04/20 14:46 PT 15.0 SEC (10.8-13.0) H 09/17/20 05:49 INR 1.3 (0.9-1.1) H 09/17/20 05:49 APTT 38.3 SEC (24.1-38.0) H 09/13/20 16:54 Fibrinogen > 700 MG/DL (259-690) H 09/13/20 16:54 D-Dimer 482 NG/ML 09/13/20 16:54 Hep-Ind Thrombocytop Com See Below 09/13/20 16:54 Sodium 136 mmol/L (135-145) 09/19/20 06:18 Potassium 4.0 mmol/l (3.3-5.1) 09/19/20 06:18 Chloride 102 mmol/L (96-108) 09/19/20 06:18 Carbon Dioxide 22 mmol/L (22-29) 09/19/20 06:18 Anion Gap 16 (12-20) 09/19/20 06:18 BUN 30 mg/dL (9-16) H 09/19/20 06:18 Creatinine 1.00 mg/dL (0.5-1.4) 09/19/20 06:18 Estim Creat Clear Calc 111.8 09/19/20 06:18 Estimated GFR > 60 09/19/20 06:18 POC Glucose 348 mg/dL (60-115) H 09/21/20 11:26 Random Glucose 296 mg/dL (60-115) H 09/19/20 06:18 Lactic Acid 1.2 mmol/L (0.5-2.0) 09/04/20 14:45 Calcium 8.4 mg/dL (8.4-10.2) 09/19/20 06:18 Magnesium 2.0 mg/dL (1.6-2.6) 09/06/20 05:09 Ferritin 609 ng/mL (20-250) H 09/04/20 14:45 Total Bilirubin 1.6 mg/dL (0.0-1.0) H 09/04/20 14:46 Direct Bilirubin 0.9 mg/dL (0.0-0.5) H 09/04/20 14:46 AST 36 U/L (5-37) D 09/04/20 14:46 ALT 61 U/L (0-40) H 09/04/20 14:46 Alkaline Phosphatase 134 U/L (39-117) H D 09/04/20 14:46 Lactate Dehydrogenase 170 U/L (118-273) 09/13/20 16:54 C-Reactive Protein 18.48 mg/dL (< or = 0.50) H 09/04/20 14:46 B-Natriuretic Peptide 59 pg/mL (<100) 09/04/20 14:44 Total Protein 6.7 g/dL (6.5-8.0) 09/04/20 14:46 Albumin 3.7 g/dL (3.5-5.0) 09/04/20 14:46 Procalcitonin 0.18 ng/mL 09/04/20 14:44 Urine Color DARK YELLOW 09/04/20 20:00 Urine Appearance HAZY 09/04/20 20:00 Urine pH 5.5 (5.0-8.0) 09/04/20 20:00 Ur Specific [place] >= 1.030 (1.005-1.025) H 09/04/20 20:00 Urine Protein TRACE MG/DL (NEG-TRACE) 09/04/20 20:00 Urine Glucose (UA) 100 MG/DL (NEG) H 09/04/20 20:00 Urine Ketones NEG MG/DL (NEG) 09/04/20 20:00 Urine Blood NEG (NEG) 09/04/20 20:00 Urine Nitrite NEG (NEG) 09/04/20 20:00 Ur Leukocyte Esterase NEG (NEG) 09/04/20 20:00 Vancomycin Trough 11.1 mcg/mL (10.0-20.0) 09/21/20 07:42 IgG Total 1568 mg/dL (600-1540) H 09/13/20 16:54 IgA Total 678 mg/dL (70-320) H 09/13/20 16:54 IgM 36 mg/dL (50-300) L 09/13/20 16:54 PAYAL Interpretation SEE NOTE 09/13/20 16:54 Heparin Dep Plt Ab OD 0.065 OD UNITS (<OR= 0.300) 09/13/20 16:54 Hep-Induced Plt Ab Devi NEGATIVE (NEGATIVE) 09/13/20 16:54 Coronavirus (PCR) NEGATIVE (Negative) 09/04/20 15:00 COVID-19 (JOSE) Negative (Negative) 09/21/20 09:42 COVID-19 Clin Com See Note 09/21/20 09:42 Influenza Type A (PCR) NEGATIVE (Negative) 09/04/20 15:00 Influenza Type B (PCR) NEGATIVE (Negative) 09/04/20 15:00 RSV RNA Qual (PCR) NEGATIVE (Negative) 09/04/20 15:00 Blood Type O Positive 09/17/20 08:11 Antibody Screen NEGATIVE 09/17/20 08:11 - Imaging Radiologist's impression: ITS Impressions Foot X-Ray 09/04/20 11:43 IMPRESSION: Soft tissue swelling without definite erosive change or gas within the soft tissues. Chest X-Ray 09/04/20 14:12 IMPRESSION: Unremarkable examination. Venous Duplex 09/04/20 19:10 IMPRESSION: No DVT demonstrated in the right lower extremity. Prominent groin nodes noted. Correlation needs to be made clinically Abd US [id number] 09/04/20 22:51 IMPRESSION: Right lower extremity: Triphasic waveforms down to the popliteal arteries with normal MAGNUS. Left lower extremity: Triphasic waveform down to the popliteal artery. Abnormally elevated MAGNUS likely related to calcified vessel with inability to compress. Duplex Scan Lower Extremity Artery 09/05/20 12:35 IMPRESSION: Right lower extremity: Triphasic waveforms down to the popliteal arteries with normal MAGNUS. Left lower extremity: Triphasic waveform down to the popliteal artery. Abnormally elevated MAGNUS likely related to calcified vessel with inability to compress. Foot MRI 09/05/20 20:52 IMPRESSION: * The edema and subcutaneous tissue enhancement of the foot is suggestive of cellulitis. No soft tissue abscess. * There appears to be a superficial wound medial to the region of the great toe interphalangeal joint and distal phalanx. Findings are consistent with mild reactive hyperemia/edema involving phalanges of the great toe. These phalanges have preserved fatty marrow signal on the T1-weighted images. There is no convincing osteomyelitis. * Severe atrophy and fatty replacement of muscles of the foot, which can be a sequela of chronic diabetic neuropathy. Progress Note: A/P (1) Thrombocytopenia Start date: 09/22/20 (Recommend we transfuse one or two pheresis units of platelets ailyn. Would continue the steroids.) Status: Acute - Time Spent With Patient Total time spent is greater than 50% in coordination of care (as documented) at patient's floor/unit and/or counseling patient: 15 - 24 minutes
[2020-09-22] MEDS: Acetaminophen 325 MG TABLET 650 MG PO (16:27)
[2020-09-22 16:45] LABS: Glucose, Whole Blood 393 mg/dL (60-115)
--- NOTE | 2020-09-22 17:08 | PC.NURSE ---
P- BS 393 I-dr. Adrian made aware E-will monitor
--- NOTE | 2020-09-22 17:30 | PC.NURSE ---
platelets not available,blood bank will call when product available
[2020-09-22 19:33] LABS: Vancomycin Trough 12.2 mcg/mL (10.0-20.0)
[2020-09-22 20:38] LABS: Glucose, Whole Blood 400 mg/dL (60-115)
[2020-09-22] MEDS: Gabapentin 600 MG TABLET PO (20:46)
[2020-09-22] MEDS: Atorvastatin Calcium 40 MG TABLET PO (20:46)
[2020-09-22] MEDS: Insulin Glargine,Hum.rec.anlog 100 UNIT/ML 10 ML VIAL 65 UNIT SUBCUT (20:47)
--- NOTE | 2020-09-22 20:57 | PC.NURSE ---
P-BS 400 I-DrMurali Sitting aware e-insulin as ordered
[2020-09-23] VITALS (10 sets, daily range): BP systolic 119–153; BP diastolic 58–84; PULSE 53–82; RESP 18–20; TEMP 35.8–36.8; O2SAT 93–98
[2020-09-23] MEDS: Omeprazole 40 MG CAPSULE.DR PO (06:06)
[2020-09-23 07:10] LABS: Mean Corpuscular Volume 92.5 fL (80-98); Red Cell Distribution Width 11.6 % (11.0-16.0)
[2020-09-23 07:12] LABS: Hematocrit 35.8 % (42-52); Hemoglobin 12.5 g/dl (14.0-18.0); Mean Corpuscular HGB Conc 34.9 g/dl (31.0-36.0); Mean Corpuscular Hemoglobin 32.3 pg (27.0-33.0); Red Blood Count 3.87 X10*6/uL (4.60-5.80); White Blood Count 14.2 X10*3/uL (4.8-10.8)
[2020-09-23 07:38] LABS: Platelet Count 16 X10*3/uL (160-400)
[2020-09-23 07:43] LABS: Glucose, Whole Blood 261 mg/dL (60-115)
[2020-09-23] MEDS: Insulin Lispro 100 UNIT/ML 3 ML VIAL SUBCUT ×4 (09:40→22:16)
[2020-09-23] MEDS: 0.9 % Sodium Chloride Flush 3 ML SYRINGE IVFLUSH ×3 (09:41→22:18)
[2020-09-23] MEDS: vancomycin HCL 1,000 MG in 0.9 % Sodium Chloride 250 ML 270 MG IV (09:41)
[2020-09-23] MEDS: Insulin Glargine,Hum.rec.anlog 100 UNIT/ML 10 ML VIAL 72 UNIT SUBCUT (09:42)
[2020-09-23] MEDS: polyethylene glycoL 3350 17 GM POWD.PACK PO (09:43)
[2020-09-23] MEDS: Benzonatate 100 MG CAPSULE 200 MG PO ×2 (09:43→22:22)
[2020-09-23] MEDS: Docusate Sodium 100 MG CAPSULE PO ×2 (09:43→22:22)
[2020-09-23] MEDS: bisacodyL 5 MG TABLET.DR PO ×2 (09:43→22:23)
[2020-09-23] MEDS: FLUoxetine HCl 10 MG CAPSULE PO (09:43)
[2020-09-23] MEDS: Cholecalciferol (Vitamin D3) 25 MCG TABLET PO (09:43)
[2020-09-23] MEDS: dexAMETHasone 4 MG TABLET 40 MG PO (09:44)
--- NOTE | 2020-09-23 10:13 | MHC.CM.PN ---
REBECCA FROM [facility] ([phone]) WILLING TO ACCEPT PATIENT AT TIME OF dc.
[2020-09-23 11:17] LABS: Glucose, Whole Blood 337 mg/dL (60-115)
--- NOTE | 2020-09-23 12:13 | P.PNIM_ITS ---
Subjective Subjective Date of Service: 09/23/20 Interval History: Plts still low despite 7d of dexamethasone + 2u plts yesterday No gum bleeding, hematuria, or hematochezia. Postop pain controlled. Physical Exam Vital Signs: Vital Signs: Last Vital Signs Temp 96.8 F 09/23/20 11:29 Pulse 54 09/23/20 11:29 Resp 18 09/23/20 11:29 BP 120/63 09/23/20 11:29 Pulse Ox 94 09/23/20 11:29 Body Mass Index 37.2 Gen: in no acute distress HEENT: sclera anicteric, moist mucus membranes, no gum bleeding Neck: supple Lungs: clear to auscultation bilaterally Heart: regular rate and rhythm, no murmurs Abd: soft, non-tender, non-distended Ext: no edema, RUE PICC without signs of infection Skin: warm/well-perfused, R foot in dry dressing Neuro: alert and oriented x3, no focal findings Psych: appropriate affect Objective Data Current Medications Generic Name Dose Route Start Last Admin Trade Name Daronq PRN Reason Stop Dose Admin Acetaminophen 650 mg 09/05/20 06:55 09/22/20 16:27 Acetaminophen 325 Mg Tablet PO 650 mg Q6H PRN Administration Pain, Mild (Pain Scale 1-3) Artificial Tears 1 drop 09/07/20 18:26 09/07/20 21:47 Artificial Tears 15 Ml Drops EYE-BOTH 1 drop Q6H PRN Administration Dry Eyes Atorvastatin Calcium 40 mg 09/04/20 21:00 09/22/20 20:46 Atorvastatin Calcium 40 Mg Tablet PO 40 mg BEDTIME TJ Administration Benzonatate 200 mg 09/05/20 21:00 09/23/20 09:43 Benzonatate 100 Mg Capsule PO 200 mg TID TJ Administration Bisacodyl 5 mg 09/04/20 21:00 09/23/20 09:43 Bisacodyl 5 Mg Tablet.Dr PO 5 mg BID TJ Administration Dexamethasone 40 mg 09/17/20 18:00 09/23/20 09:44 Dexamethasone 4 Mg Tablet PO 40 mg DAILY TJ Administration Docusate Sodium 100 mg 09/15/20 16:20 09/23/20 09:43 Docusate Sodium 100 Mg Capsule PO 100 mg BID TJ Administration Fluoxetine HCl 10 mg 09/05/20 09:00 09/23/20 09:43 Fluoxetine Hcl 10 Mg Capsule PO 10 mg DAILY TJ Administration Gabapentin 600 mg 09/04/20 21:00 09/22/20 20:46 Gabapentin 600 Mg Tablet PO 600 mg BEDTIME TJ Administration Guaifenesin/Dextromethorphan 10 ml 09/05/20 17:19 09/09/20 09:41 Guaifenesin Dm 100/10/5 Ml 5 Ml Syrup PO 10 ml Q4H PRN Administration cough Vancomycin HCl 1,000 mg/ 270 mls @ 270 mls/hr 09/20/20 20:00 09/23/20 10:42 Sodium Chloride IV Infused Q12H [facility] Infusion Insulin Glargine 72 unit 09/23/20 09:00 09/23/20 09:42 Insulin Glargine,Hum.Rec.Anlog 100 Unit/Ml 10 Ml Vial SUBCUT 72 unit DAILY [facility] Administration Insulin Glargine 68 unit 09/23/20 21:00 Insulin Glargine,Hum.Rec.Anlog 100 Unit/Ml 10 Ml Vial SUBCUT BEDTIME [facility] Insulin Human Lispro 0 unit 09/05/20 07:30 09/23/20 09:40 Insulin Lispro 100 Unit/Ml 3 Ml Vial SUBCUT 6 unit QIDACHS [facility] Administration Protocol Lisinopril 5 mg 09/05/20 09:00 09/23/20 09:43 Lisinopril 5 Mg Tablet PO 5 mg DAILY [facility] Administration Protocol Magnesium Hydroxide 30 ml 09/19/20 09:31 09/21/20 15:45 Milk Of Magnesia 30 Ml Oral.Susp PO 30 ml TID PRN Administration Constipation Omeprazole 40 mg 09/17/20 16:30 09/23/20 06:06 Omeprazole 40 Mg Capsule.Dr PO 40 mg BID@1630,1630 [facility] Administration Ondansetron HCl 4 mg 09/05/20 06:55 Ondansetron Hcl 4 Mg/2 Ml Vial IVPUSH Q8H PRN Nausea and Vomiting Pharmacy Consult 1 each 09/04/20 14:11 Consult Rx Perform Med Rec MISCELLANE ONCE PRN Consult order Polyethylene Glycol 17 gm 09/07/20 18:30 09/23/20 09:43 Polyethylene Glycol 3350 17 Gm Powd.Pack PO 17 gm DAILY TJ Administration Sodium Chloride 3 ml 09/05/20 08:00 09/23/20 09:41 0.9 % Sodium Chloride Flush 3 Ml Syringe IVFLUSH 3 ml QSHIFT TJ Administration Sodium Chloride 1 spray 09/09/20 20:21 09/09/20 21:18 Sodium Chloride 0.65 % Nasal 44 Ml Sprbtl NOSTRIL-B 1 spray Q1H PRN Administration Dry Nasal Passages Vitamin D 25 mcg 09/05/20 09:00 09/23/20 09:43 Cholecalciferol (Vitamin D3) 25 Mcg Tablet PO 25 mcg DAILY TJ Administration Labs CBC & Chem 7: 09/23/20 06:21 09/22/20 08:08 Microbiology Microbiology Results: Microbiology 09/10/20 19:15 Blood - Venous Blood Culture - Final No growth after 5 days. 09/10/20 19:15 Blood - Venous Blood Culture - Final No growth after 5 days. 09/04/20 15:00 Blood - Venous Blood Culture - Final Methicillin Res Staph Aureus 09/04/20 14:45 Blood - Venous Blood Culture - Final Methicillin Res Staph Aureus Assessment and Plan (1) MRSA bacteremia: Status: Acute (2) Thrombocytopenia: Status: Acute (3) Diabetic foot ulcer: Status: Acute (4) Necrosis of toe: Status: Acute Assessment and Plan: hosp d#19 60yo M with DM2 with neuropathy admitted for sepsis from ulcerated DM foot infection assoc with MRSA bacteremia # MRSA bacteremia # ulcerated DM foot infection - BCx 09/04/20 grew MRSA, subsequently negative - MRI 09/05/20 without definitive osteomyelitis - s/p angioplasty R post tib artery 09/06/20, amputation R great toe 09/10/20, revision 09/18/20; per Dr Figueroa, daily wound care with Xeroform, 4x4, and Kerlix wrap + f/u in 2 wk - on d# of IV vancomycin, PICC plcaed 09/09/20- discussed with Dr Guardado and will switch to daptomycin given possible drug-associated thrombocytopenia # thrombocytopenia - discussed with Dr Padgett. doubt ITP- stop dexamethasone. probable drug- induced, will switch vancomycin to daptomycin as above # DM2 with steroid-induced hyperglycemia - increase basal/bolus insulin. MTF on hold. # MGUS - PAYAL on 09/13/20 with faint IgG lambda monoclonal band; repeat PAYAL in 6 mo and f/u Heme/Onc # hypoMg - repleted # HTN - continue lisinopril # dyslipidemia - continue atorvastatin # constipation - bowel regimen # neuropathy - continue gabapentin # mood disorder - continue fluoxetine # dispo - likely SNF for wound care/IV ABX
--- NOTE | 2020-09-23 14:56 | MHC.CLN ---
F/U PO INTAKE 100% DIET RX: 2200DM-APPROPRIATE FOLLOWING
[2020-09-23 16:23] LABS: Glucose, Whole Blood 295 mg/dL (60-115)
--- NOTE | 2020-09-23 16:38 | MHC.CM.PN ---
PATIENT WILL REMAIN AND MAY HAVE A NEW ANTIBIOTIC UPON DISCHARGE. [facility], ALECIA MADE AWARE VIA PHONE CONVERSATION. [facility] IN [place] IS WILLING TO OFFER SERVICES UPON DISCHARGE. PLEASE HAND FAX THE INFO DISCHARGE PLAN NEARS TO [phone] ATT:
[2020-09-23] MEDS: DAPTOmycin 600 MG in 0.9 % Sodium Chloride 50 ML 124 MG IV (17:00)
[2020-09-23 21:31] LABS: Glucose, Whole Blood 422 mg/dL (60-115)
[2020-09-23] MEDS: Insulin Glargine,Hum.rec.anlog 100 UNIT/ML 10 ML VIAL 68 UNIT SUBCUT (22:17)
[2020-09-23] MEDS: Gabapentin 600 MG TABLET PO (22:23)
[2020-09-24 00:59] LABS: Glucose, Whole Blood 326 mg/dL (60-115)
[2020-09-24] MEDS: Omeprazole 40 MG CAPSULE.DR PO (06:10)
[2020-09-24 07:26] LABS: Hemoglobin 12.4 g/dl (14.0-18.0); MANUAL DIFF FLAG SCAN; Monocytes Percent Auto 8.5 % (2-11); Red Cell Distribution Width 11.9 % (11.0-16.0); SCAN SMEAR FLAG 1
[2020-09-24 07:28] LABS: Basophils Percent Auto 0.1 % (0-2); Hematocrit 35.9 % (42-52); Imm Gran Abs Auto 0.68 X10*3/uL (0.00-0.03); Imm Gran Pct Auto 4.5 % (0.0-0.4); Lymphocytes Absolute Auto 1.8 X10*3/uL (1.2-4.9); Mean Corpuscular HGB Conc 34.5 g/dl (31.0-36.0); Mean Corpuscular Volume 92.8 fL (80-98); Monocytes Absolute Auto 1.3 X10*3/uL (0.1-1.2); Neutrophils Absolute Auto 11.4 X10*3/uL (2.0-8.3); Neutrophils Percent Auto 74.9 % (45-73); Red Blood Count 3.87 X10*6/uL (4.60-5.80); White Blood Count 15.2 X10*3/uL (4.8-10.8)
[2020-09-24 07:42] LABS: PLT ABN DIST 1; Platelet Count 28 X10*3/uL (160-400)
[2020-09-24 07:43] LABS: Glucose, Whole Blood 258 mg/dL (60-115)
[2020-09-24 07:52] LABS: Anion Gap 15 (12-20); Blood Urea Nitrogen 33 mg/dL (9-16); C Reactive Protein 1.16 mg/dL (< or = 0.50); Calcium 8.8 mg/dL (8.4-10.2); Carbon Dioxide 28 mmol/L (22-29); Chloride 97 mmol/L (96-108); Creatinine Clr Calc Pharmacy 106.5; Estimated Glomerular Filt Rate > 60; Glucose Random 286 mg/dL (60-115); Magnesium 1.7 mg/dL (1.6-2.6); Potassium 4.2 mmol/L (3.3-5.1); Sodium 136 mmol/L (135-145); Vancomycin Trough 6.3 mcg/mL (10.0-20.0)
[2020-09-24 08:00] VITALS: BP 136/68; PULSE 62; RESP 19; TEMP 36.1; O2SAT 93
[2020-09-24 08:10] LABS: Erythrocyte Sedimentation Rate 58 MM/HR (0-15)
[2020-09-24] MEDS: Insulin Lispro 100 UNIT/ML 3 ML VIAL SUBCUT ×4 (08:19→21:09)
[2020-09-24] MEDS: Docusate Sodium 100 MG CAPSULE PO ×2 (08:20→21:10)
[2020-09-24] MEDS: 0.9 % Sodium Chloride Flush 3 ML SYRINGE IVFLUSH ×2 (08:20→16:56)
[2020-09-24] MEDS: Cholecalciferol (Vitamin D3) 25 MCG TABLET PO (08:20)
[2020-09-24] MEDS: polyethylene glycoL 3350 17 GM POWD.PACK PO (08:20)
[2020-09-24] MEDS: Insulin Glargine,Hum.rec.anlog 100 UNIT/ML 10 ML VIAL 72 UNIT SUBCUT (08:20)
[2020-09-24] MEDS: bisacodyL 5 MG TABLET.DR PO ×2 (08:20→21:10)
[2020-09-24] MEDS: FLUoxetine HCl 10 MG CAPSULE PO (08:20)
[2020-09-24] MEDS: Milk of Magnesia 30 ML ORAL.SUSP PO (08:22)
[2020-09-24 08:44] LABS: SLIDE REVIEW VERIFIED
[2020-09-24 09:05] LABS: HIV AB/AG Nonreactive (Nonreactive); HIV Num 1 0.06 S/CO (0.00-0.99)
[2020-09-24 09:09] LABS: Estimated Average Glucose 255 mg/dL; Hemoglobin A1c % 10.5 %
[2020-09-24 11:35] LABS: Glucose, Whole Blood 288 mg/dL (60-115)
[2020-09-24 12:00] VITALS: RESP 18
--- NOTE | 2020-09-24 13:59 | HO.VASCPN ---
Subjective Subjective Date of Service: 09/24/20 Patient reports: no new complaints and feels better Interval history: Patient is status post great toe ray amputation. Patient appears to be doing relatively well from the amputation perspective. He continues to have issues with his thrombocytopenia. Of note antibiotic regimen has most recently been changed. Appears to be improving. Physical Exam Vital Signs: Vital Signs: Last Vital Signs Temp 96.9 F 09/24/20 08:00 Pulse 62 09/24/20 08:00 Resp 19 09/24/20 08:00 BP 136/68 09/24/20 08:00 Pulse Ox 93 09/24/20 08:00 Body Mass Index 37.2 Const: General: cooperative, healthy appearing and no acute distress Orientation/consciousness: oriented to person, oriented to place and oriented to time HENMT: Head: Yes normal to inspection Neck: Carotids: no bruits Chest: Chest palpation & inspection: normal inspection of the chest Resp: Effort & Inspection: normal respiratory effort and able to speak in complete sentences Auscultation: clear to auscultation bilaterally Cardio: Rate: regular rate Heart sounds: S1 normal heart sound present and S2 normal heart sound present GI: Inspection: Yes normal to inspection Skin: Other: Amp site incision appears to be closing. Small central opening. General skin exam: no rashes or lesions noted Wounds: amputation site (Intact) Neuro: General: oriented to person, oriented to place, oriented to time and CN's II-XI intact bilaterally Extrem: General: Yes normal to inspection, Yes full ROM and Yes no clubbing, cyanosis or edema Psych: Appearance: grossly normal and well kempt Speech and movement: Normal speech and movement present Affect: normal affect Progress Note: A&P Assessment and plan (1) Diabetic foot ulcer: Status: Acute Assessment and Plan: Patient is status post great toe ray amputation. Appears to be doing relatively well. Continue with local wound care. Stable from my perspective for discharge. See me in approximately 2 weeks after discharge. I would like to change the discharge dressing instructions to the following: Alginate, 4 x 4, Kerlix wrap to be changed daily Fall Risk Details Current Medications: Current Medications Generic Name Dose Route Start Last Admin Trade Name Freq PRN Reason Stop Dose Admin Acetaminophen 650 mg 09/05/20 06:55 09/22/20 16:27 Acetaminophen 325 Mg Tablet PO 650 mg Q6H PRN Administration Pain, Mild (Pain Scale 1-3) Artificial Tears 1 drop 09/07/20 18:26 09/07/20 21:47 Artificial Tears 15 Ml Drops EYE-BOTH 1 drop Q6H PRN Administration Dry Eyes Benzonatate 200 mg 09/05/20 21:00 09/24/20 12:41 Benzonatate 100 Mg Capsule PO Not Given TID TJ Bisacodyl 5 mg 09/04/20 21:00 09/24/20 08:20 Bisacodyl 5 Mg Tablet.Dr PO 5 mg BID TJ Administration Docusate Sodium 100 mg 09/15/20 16:20 09/24/20 08:20 Docusate Sodium 100 Mg Capsule PO 100 mg BID TJ Administration Fluoxetine HCl 10 mg 09/05/20 09:00 09/24/20 08:20 Fluoxetine Hcl 10 Mg Capsule PO 10 mg DAILY TJ Administration Gabapentin 600 mg 09/04/20 21:00 09/23/20 22:23 Gabapentin 600 Mg Tablet PO 600 mg BEDTIME TJ Administration Guaifenesin/Dextromethorphan 10 ml 09/05/20 17:19 09/09/20 09:41 Guaifenesin Dm 100/10/5 Ml 5 Ml Syrup PO 10 ml Q4H PRN Administration cough Daptomycin 600 mg/ Sodium 62 mls @ 124 mls/hr 09/23/20 15:00 09/23/20 17:47 Chloride IV Infused Q24H [facility] Infusion Insulin Glargine 72 unit 09/23/20 09:00 09/24/20 08:20 Insulin Glargine,Hum.Rec.Anlog 100 Unit/Ml 10 Ml Vial SUBCUT 1 unit DAILY TJ Administration Insulin Glargine 68 unit 09/23/20 21:00 09/23/20 22:17 Insulin Glargine,Hum.Rec.Anlog 100 Unit/Ml 10 Ml Vial SUBCUT 68 unit BEDTIME [facility] Administration Insulin Human Lispro 0 unit 09/05/20 07:30 09/24/20 12:39 Insulin Lispro 100 Unit/Ml 3 Ml Vial SUBCUT 8 unit QIDACHS [facility] Administration Protocol Lactulose 20 gm 09/24/20 10:16 Lactulose 20 Gm/30 Ml Solution PO BID PRN Constipation Lisinopril 5 mg 09/05/20 09:00 09/24/20 08:20 Lisinopril 5 Mg Tablet PO 5 mg DAILY TJ Administration Protocol Magnesium Hydroxide 30 ml 09/19/20 09:31 09/24/20 08:22 Milk Of Magnesia 30 Ml Oral.Susp PO 30 ml TID PRN Administration Constipation Omeprazole 40 mg 09/24/20 06:30 09/24/20 06:10 Omeprazole 40 Mg Capsule.Dr PO 40 mg DAILY@0630 TJ Administration Ondansetron HCl 4 mg 09/05/20 06:55 Ondansetron Hcl 4 Mg/2 Ml Vial IVPUSH Q8H PRN Nausea and Vomiting Pharmacy Consult 1 each 09/04/20 14:11 Consult Rx Perform Med Rec MISCELLANE ONCE PRN Consult order Polyethylene Glycol 17 gm 09/07/20 18:30 09/24/20 08:20 Polyethylene Glycol 3350 17 Gm Powd.Pack PO 17 gm DAILY TJ Administration Sodium Chloride 3 ml 09/05/20 08:00 09/24/20 08:20 0.9 % Sodium Chloride Flush 3 Ml Syringe IVFLUSH 3 ml QSHIFT TJ Administration Sodium Chloride 1 spray 09/09/20 20:21 09/09/20 21:18 Sodium Chloride 0.65 % Nasal 44 Ml Sprbtl NOSTRIL-B 1 spray Q1H PRN Administration Dry Nasal Passages Vitamin D 25 mcg 09/05/20 09:00 09/24/20 08:20 Cholecalciferol (Vitamin D3) 25 Mcg Tablet PO 25 mcg DAILY TJ Administration Time Spent With Patient Time: Total time spent is greater than 50% in coordination of care (as documented) at patient's floor/unit and/or counseling patient: Time with patient: 15 - 24 minutes
--- NOTE | 2020-09-24 14:03 | HO.PM.IMPN ---
Subjective Subjective Date of Service: 09/24/20 Interval History: feels well no bleeding no fever/chills no cough/dyspnea Physical Exam Vital Signs: Vital Signs: Last Vital Signs Temp 96.9 F 09/24/20 08:00 Pulse 62 09/24/20 08:00 Resp 19 09/24/20 08:00 BP 136/68 09/24/20 08:00 Pulse Ox 93 09/24/20 08:00 Body Mass Index 37.2 Gen: in no acute distress HEENT: sclera anicteric, moist mucus membranes, no gum bleeding Neck: supple Lungs: clear to auscultation bilaterally Heart: regular rate and rhythm, no murmurs Abd: soft, non-tender, non-distended Ext: no edema, RUE PICC without signs of infection Skin: warm/well-perfused, R foot in dry dressing Neuro: alert and oriented x3, no focal findings Psych: appropriate affect Objective Data Current Medications Generic Name Dose Route Start Last Admin Trade Name Freq PRN Reason Stop Dose Admin Acetaminophen 650 mg 09/05/20 06:55 09/22/20 16:27 Acetaminophen 325 Mg Tablet PO 650 mg Q6H PRN Administration Pain, Mild (Pain Scale 1-3) Artificial Tears 1 drop 09/07/20 18:26 09/07/20 21:47 Artificial Tears 15 Ml Drops EYE-BOTH 1 drop Q6H PRN Administration Dry Eyes Benzonatate 200 mg 09/05/20 21:00 09/24/20 12:41 Benzonatate 100 Mg Capsule PO Not Given TID TJ Bisacodyl 5 mg 09/04/20 21:00 09/24/20 08:20 Bisacodyl 5 Mg Tablet.Dr PO 5 mg BID TJ Administration Docusate Sodium 100 mg 09/15/20 16:20 09/24/20 08:20 Docusate Sodium 100 Mg Capsule PO 100 mg BID TJ Administration Fluoxetine HCl 10 mg 09/05/20 09:00 09/24/20 08:20 Fluoxetine Hcl 10 Mg Capsule PO 10 mg DAILY TJ Administration Gabapentin 600 mg 09/04/20 21:00 09/23/20 22:23 Gabapentin 600 Mg Tablet PO 600 mg BEDTIME TJ Administration Guaifenesin/Dextromethorphan 10 ml 09/05/20 17:19 09/09/20 09:41 Guaifenesin Dm 100/10/5 Ml 5 Ml Syrup PO 10 ml Q4H PRN Administration cough Daptomycin 600 mg/ Sodium 62 mls @ 124 mls/hr 09/23/20 15:00 09/23/20 17:47 Chloride IV Infused Q24H TJ Infusion Insulin Glargine 72 unit 09/23/20 09:00 09/24/20 08:20 Insulin Glargine,Hum.Rec.Anlog 100 Unit/Ml 10 Ml Vial SUBCUT 1 unit DAILY TJ Administration Insulin Glargine 68 unit 09/23/20 21:00 09/23/20 22:17 Insulin Glargine,Hum.Rec.Anlog 100 Unit/Ml 10 Ml Vial SUBCUT 68 unit BEDTIME TJ Administration Insulin Human Lispro 0 unit 09/05/20 07:30 09/24/20 12:39 Insulin Lispro 100 Unit/Ml 3 Ml Vial SUBCUT 8 unit QIDACHS [facility] Administration Protocol Lactulose 20 gm 09/24/20 10:16 Lactulose 20 Gm/30 Ml Solution PO BID PRN Constipation Lisinopril 5 mg 09/05/20 09:00 09/24/20 08:20 Lisinopril 5 Mg Tablet PO 5 mg DAILY TJ Administration Protocol Magnesium Hydroxide 30 ml 09/19/20 09:31 09/24/20 08:22 Milk Of Magnesia 30 Ml Oral.Susp PO 30 ml TID PRN Administration Constipation Omeprazole 40 mg 09/24/20 06:30 09/24/20 06:10 Omeprazole 40 Mg Capsule.Dr PO 40 mg DAILY@0630 TJ Administration Ondansetron HCl 4 mg 09/05/20 06:55 Ondansetron Hcl 4 Mg/2 Ml Vial IVPUSH Q8H PRN Nausea and Vomiting Pharmacy Consult 1 each 09/04/20 14:11 Consult Rx Perform Med Rec MISCELLANE ONCE PRN Consult order Polyethylene Glycol 17 gm 09/07/20 18:30 09/24/20 08:20 Polyethylene Glycol 3350 17 Gm Powd.Pack PO 17 gm DAILY TJ Administration Sodium Chloride 3 ml 09/05/20 08:00 09/24/20 08:20 0.9 % Sodium Chloride Flush 3 Ml Syringe IVFLUSH 3 ml QSHIFT TJ Administration Sodium Chloride 1 spray 09/09/20 20:21 09/09/20 21:18 Sodium Chloride 0.65 % Nasal 44 Ml Sprbtl NOSTRIL-B 1 spray Q1H PRN Administration Dry Nasal Passages Vitamin D 25 mcg 09/05/20 09:00 09/24/20 08:20 Cholecalciferol (Vitamin D3) 25 Mcg Tablet PO 25 mcg DAILY TJ Administration Labs CBC & Chem 7: 09/24/20 06:50 09/24/20 06:50 Microbiology Microbiology Results: Microbiology 09/10/20 19:15 Blood - Venous Blood Culture - Final No growth after 5 days. 09/10/20 19:15 Blood - Venous Blood Culture - Final No growth after 5 days. 09/04/20 15:00 Blood - Venous Blood Culture - Final Methicillin Res Staph Aureus 09/04/20 14:45 Blood - Venous Blood Culture - Final Methicillin Res Staph Aureus Assessment and Plan (1) MRSA bacteremia: Status: Acute (2) Thrombocytopenia: Status: Acute (3) Diabetic foot ulcer: Status: Acute (4) Necrosis of toe: Status: Acute Assessment and Plan: hosp d#20 60yo M with DM2 with neuropathy admitted for sepsis from ulcerated DM foot infection assoc with MRSA bacteremia, complicated by thrombocytopenia # MRSA bacteremia # ulcerated DM foot infection - BCx 09/04/20 grew MRSA, subsequently negative - MRI 09/05/20 without definitive osteomyelitis - s/p angioplasty R post tib artery 09/06/20, amputation R great toe 09/10/20, revision 09/18/20; per Dr Figueroa, daily wound care with Xeroform, 4x4, and Kerlix wrap + f/u in 2 wk - got 14d of IV vancomycin, to complete the next 28d of therapy with daptomycin on d#10/20 [ABX switched due to possible drug-associated thrombocytopenia) - PICC plcaed 09/09/20 # thrombocytopenia - doubt ITP- stopped dexamethasone. got 2 units of platelets transfused. - platelets improved today - vancomycin switched to daptomycin # DM2 with steroid-induced hyperglycemia. A1c 10.5 - increase basal/bolus insulin. MTF on hold. # MGUS - PAYAL on 09/13/20 with faint IgG lambda monoclonal band; repeat PAYAL in 6 mo and f/u Heme/Onc # hypoMg - repleted # HTN - continue lisinopril # dyslipidemia - hold atorvastatin while on daptomycin to avoid skeletal muscle toxicity # constipation - bowel regimen- add lactulose # neuropathy - continue gabapentin # mood disorder - continue fluoxetine # dispo - likely SNF for wound care/IV ABX
[2020-09-24 15:39] VITALS: BP 128/68; PULSE 60; RESP 19; TEMP 36.1; O2SAT 96
[2020-09-24 16:25] LABS: Glucose, Whole Blood 272 mg/dL (60-115)
[2020-09-24] MEDS: DAPTOmycin 600 MG in 0.9 % Sodium Chloride 50 ML 124 MG IV (16:51)
[2020-09-24 19:39] VITALS: BP 115/67; PULSE 67; RESP 20; TEMP 36.3; O2SAT 95
[2020-09-24 20:29] LABS: Glucose, Whole Blood 328 mg/dL (60-115)
[2020-09-24] MEDS: Insulin Glargine,Hum.rec.anlog 100 UNIT/ML 10 ML VIAL 70 UNIT SUBCUT (21:10)
[2020-09-24] MEDS: Gabapentin 600 MG TABLET PO (21:10)
[2020-09-24] MEDS: Benzonatate 100 MG CAPSULE 200 MG PO (21:10)
--- NOTE | 2020-09-24 21:36 | P.PNID_ITS ---
Subjective Subjective Date of Service: 09/24/20 Interval History: He has decreased platelets Objective Data Labs CBC & Chem 7: 09/24/20 06:50 09/24/20 06:50 Labs: Laboratory Results - last 24 hr 09/24/20 09/24/20 09/24/20 00:55 06:50 06:50 WBC 15.2 H RBC 3.87 L Hgb 12.4 L Hct 35.9 L MCV 92.8 MCH 32.0 MCHC 34.5 RDW 11.9 Plt Count 28 L D MPV Not Reportable Immature Gran % (Auto) 4.5 H Neut % (Auto) 74.9 H Lymph % (Auto) 12.0 L [place] % (Auto) 8.5 Eos % (Auto) 0.0 Baso % (Auto) 0.1 Lymph # (Auto) 1.8 [place] # (Auto) 1.3 H Eos # (Auto) 0.0 Baso # (Auto) 0.0 Abs Immat Gran (auto) 0.68 H Absolute Neuts (auto) 11.4 H Absolute Nucleated RBC 0.000 Nucleated RBC % (auto) 0.0 Smear Tech's Comments VERIFIED ESR 58 H Sodium Potassium Chloride Carbon Dioxide Anion Gap BUN Creatinine Estim Creat Clear Calc Estimated GFR POC Glucose 326 H Random Glucose Estimat Average Glucose Hemoglobin A1c % Calcium Magnesium Total Creatine Kinase C-Reactive Protein Vancomycin Trough HIV 1&2 Ab/P24 Ag 4thGn 09/24/20 09/24/20 09/24/20 06:50 06:50 06:50 WBC RBC Hgb Hct MCV MCH MCHC RDW Plt Count MPV Immature Gran % (Auto) Neut % (Auto) Lymph % (Auto) [place] % (Auto) Eos % (Auto) Baso % (Auto) Lymph # (Auto) [place] # (Auto) Eos # (Auto) Baso # (Auto) Abs Immat Gran (auto) Absolute Neuts (auto) Absolute Nucleated RBC Nucleated RBC % (auto) Smear Tech's Comments ESR Sodium 136 Potassium 4.2 Chloride 97 Carbon Dioxide 28 Anion Gap 15 BUN 33 H Creatinine 1.05 Estim Creat Clear Calc 106.5 Estimated GFR > 60 POC Glucose Random Glucose 286 H Estimat Average Glucose 255 Hemoglobin A1c % 10.5 Calcium 8.8 Magnesium 1.7 Total Creatine Kinase 21 L C-Reactive Protein 1.16 H Vancomycin Trough HIV 1&2 Ab/P24 Ag 4thGn Nonreactive 09/24/20 09/24/20 09/24/20 06:50 07:39 11:22 WBC RBC Hgb Hct MCV MCH MCHC RDW Plt Count MPV Immature Gran % (Auto) Neut % (Auto) Lymph % (Auto) [place] % (Auto) Eos % (Auto) Baso % (Auto) Lymph # (Auto) [place] # (Auto) Eos # (Auto) Baso # (Auto) Abs Immat Gran (auto) Absolute Neuts (auto) Absolute Nucleated RBC Nucleated RBC % (auto) Smear Tech's Comments ESR Sodium Potassium Chloride Carbon Dioxide Anion Gap BUN Creatinine Estim Creat Clear Calc Estimated GFR POC Glucose 258 H 288 H Random Glucose Estimat Average Glucose Hemoglobin A1c % Calcium Magnesium Total Creatine Kinase C-Reactive Protein Vancomycin Trough 6.3 L HIV 1&2 Ab/P24 Ag 4thGn 09/24/20 09/24/20 16:20 20:24 WBC RBC Hgb Hct MCV MCH MCHC RDW Plt Count MPV Immature Gran % (Auto) Neut % (Auto) Lymph % (Auto) [place] % (Auto) Eos % (Auto) Baso % (Auto) Lymph # (Auto) [place] # (Auto) Eos # (Auto) Baso # (Auto) Abs Immat Gran (auto) Absolute Neuts (auto) Absolute Nucleated RBC Nucleated RBC % (auto) Smear Tech's Comments ESR Sodium Potassium Chloride Carbon Dioxide Anion Gap BUN Creatinine Estim Creat Clear Calc Estimated GFR POC Glucose 272 H 328 H Random Glucose Estimat Average Glucose Hemoglobin A1c % Calcium Magnesium Total Creatine Kinase C-Reactive Protein Vancomycin Trough HIV 1&2 Ab/P24 Ag 4thGn Microbiology Microbiology Results: Microbiology 09/10/20 19:15 Blood - Venous Blood Culture - Final No growth after 5 days. 09/10/20 19:15 Blood - Venous Blood Culture - Final No growth after 5 days. 09/04/20 15:00 Blood - Venous Blood Culture - Final Methicillin Res Staph Aureus 09/04/20 14:45 Blood - Venous Blood Culture - Final Methicillin Res Staph Aureus Physical Exam Vital Signs: Vital Signs: Last Vital Signs Temp 97.4 F 09/24/20 19:39 Pulse 67 09/24/20 19:39 Resp 20 09/24/20 19:39 BP 115/67 09/24/20 19:39 Pulse Ox 95 09/24/20 19:39 Body Mass Index 37.2 Const: General: cooperative Resp: Effort & Inspection: normal respiratory effort Cardio: Rate: regular rate Rhythm: regular rhythm GI: Palpation (GI): Soft to palpation and nontender Assessment and Plan Assessment and plan (1) MRSA bacteremia: Problem details: MRSA bacteremia Platelets low due to Vancomycin possibly Status: Acute Assessment and Plan: Daptomycin total 4 weeks Time Spent With Patient Time: Total time spent is greater than 50% in coordination of care (as documented) at patient's floor/unit and/or counseling patient: Time with patient: 15 - 24 minutes
[2020-09-24 23:49] VITALS: BP 108/56; PULSE 68; RESP 18; TEMP 36.7; O2SAT 95
[2020-09-25] VITALS (7 sets, daily range): BP systolic 101–113; BP diastolic 56–62; PULSE 62–70; RESP 16–20; TEMP 36.3–37.2; O2SAT 92–96
[2020-09-25] MEDS: 0.9 % Sodium Chloride Flush 3 ML SYRINGE IVFLUSH ×4 (00:01→22:28)
[2020-09-25] MEDS: Omeprazole 40 MG CAPSULE.DR PO (06:41)
[2020-09-25 06:47] LABS: MANUAL DIFF FLAG SCAN; PLT CLUMP 1; SCAN SMEAR FLAG 1
[2020-09-25 06:49] LABS: Basophils Percent Auto 0.1 % (0-2); Eosinophils Absolute Auto 0.1 X10*3/uL (0.0-0.4); Eosinophils Percent Auto 0.8 % (0-4); Hematocrit 36.5 % (42-52); Hemoglobin 12.7 g/dl (14.0-18.0); Imm Gran Abs Auto 0.58 X10*3/uL (0.00-0.03); Imm Gran Pct Auto 4.5 % (0.0-0.4); Lymphocytes Absolute Auto 3.4 X10*3/uL (1.2-4.9); Lymphocytes Percent Auto 26.4 % (20-40); Mean Corpuscular HGB Conc 34.8 g/dl (31.0-36.0); Mean Corpuscular Hemoglobin 32.5 pg (27.0-33.0); Mean Corpuscular Volume 93.4 fL (80-98); Monocytes Absolute Auto 1.1 X10*3/uL (0.1-1.2); Monocytes Percent Auto 8.6 % (2-11); Neutrophils Absolute Auto 7.7 X10*3/uL (2.0-8.3); Neutrophils Percent Auto 59.6 % (45-73); Red Blood Count 3.91 X10*6/uL (4.60-5.80); White Blood Count 12.9 X10*3/uL (4.8-10.8)
[2020-09-25 07:12] LABS: PLT ABN DIST 1; Platelet Count 54 X10*3/uL (160-400)
[2020-09-25 07:54] LABS: Glucose, Whole Blood 147 mg/dL (60-115)
[2020-09-25] MEDS: FLUoxetine HCl 10 MG CAPSULE PO (08:57)
[2020-09-25] MEDS: Benzonatate 100 MG CAPSULE 200 MG PO ×2 (08:57→22:22)
[2020-09-25] MEDS: Cholecalciferol (Vitamin D3) 25 MCG TABLET PO (08:57)
[2020-09-25] MEDS: bisacodyL 5 MG TABLET.DR PO ×2 (08:57→22:22)
[2020-09-25] MEDS: polyethylene glycoL 3350 17 GM POWD.PACK PO (08:57)
[2020-09-25] MEDS: Docusate Sodium 100 MG CAPSULE PO ×2 (08:57→22:22)
[2020-09-25] MEDS: Insulin Glargine,Hum.rec.anlog 100 UNIT/ML 10 ML VIAL 75 UNIT SUBCUT (08:58)
[2020-09-25 09:17] LABS: SLIDE REVIEW VERIFIED
[2020-09-25 11:57] LABS: Glucose, Whole Blood 210 mg/dL (60-115)
[2020-09-25] MEDS: Insulin Lispro 100 UNIT/ML 3 ML VIAL SUBCUT ×3 (11:57→22:23)
[2020-09-25] MEDS: DAPTOmycin 600 MG in 0.9 % Sodium Chloride 50 ML 124 MG IV (14:33)
--- NOTE | 2020-09-25 14:59 | P.PNIM_ITS ---
Subjective Subjective Date of Service: 09/25/20 Interval History: platelets improving constipation resolved no fever Physical Exam Vital Signs: Vital Signs: Last Vital Signs Temp 98.3 F 09/25/20 11:07 Pulse 69 09/25/20 11:07 Resp 20 09/25/20 11:07 BP 104/59 L 09/25/20 11:07 Pulse Ox 92 09/25/20 11:07 Body Mass Index 37.2 Gen: in no acute distress HEENT: sclera anicteric, moist mucus membranes, no gum bleeding Neck: supple Lungs: clear to auscultation bilaterally Heart: regular rate and rhythm, no murmurs Abd: soft, non-tender, non-distended Ext: no edema, RUE PICC without signs of infection Skin: warm/well-perfused, R foot in dry dressing Neuro: alert and oriented x3, no focal findings Psych: appropriate affect Objective Data Current Medications Generic Name Dose Route Start Last Admin Trade Name Freq PRN Reason Stop Dose Admin Acetaminophen 650 mg 09/05/20 06:55 09/22/20 16:27 Acetaminophen 325 Mg Tablet PO 650 mg Q6H PRN Administration Pain, Mild (Pain Scale 1-3) Artificial Tears 1 drop 09/07/20 18:26 09/07/20 21:47 Artificial Tears 15 Ml Drops EYE-BOTH 1 drop Q6H PRN Administration Dry Eyes Benzonatate 200 mg 09/05/20 21:00 09/25/20 14:34 Benzonatate 100 Mg Capsule PO Not Given TID TJ Bisacodyl 5 mg 09/04/20 21:00 09/25/20 08:57 Bisacodyl 5 Mg Tablet.Dr PO 5 mg BID TJ Administration Docusate Sodium 100 mg 09/15/20 16:20 09/25/20 08:57 Docusate Sodium 100 Mg Capsule PO 100 mg BID TJ Administration Fluoxetine HCl 10 mg 09/05/20 09:00 09/25/20 08:57 Fluoxetine Hcl 10 Mg Capsule PO 10 mg DAILY TJ Administration Gabapentin 600 mg 09/04/20 21:00 09/24/20 21:10 Gabapentin 600 Mg Tablet PO 600 mg BEDTIME TJ Administration Guaifenesin/Dextromethorphan 10 ml 09/05/20 17:19 09/09/20 09:41 Guaifenesin Dm 100/10/5 Ml 5 Ml Syrup PO 10 ml Q4H PRN Administration cough Daptomycin 600 mg/ Sodium 62 mls @ 124 mls/hr 09/23/20 15:00 09/25/20 14:33 Chloride IV 124 mls/hr Q24H TJ Administration Insulin Glargine 75 unit 09/25/20 09:00 09/25/20 08:58 Insulin Glargine,Hum.Rec.Anlog 100 Unit/Ml 10 Ml Vial SUBCUT 75 unit DAILY TJ Administration Insulin Glargine 70 unit 09/24/20 21:00 09/24/20 21:10 Insulin Glargine,Hum.Rec.Anlog 100 Unit/Ml 10 Ml Vial SUBCUT 70 unit BEDTIME TJ Administration Insulin Human Lispro 0 unit 09/05/20 07:30 09/25/20 11:57 Insulin Lispro 100 Unit/Ml 3 Ml Vial SUBCUT 7 unit QIDACHS TJ Administration Protocol Lactulose 20 gm 09/24/20 10:16 Lactulose 20 Gm/30 Ml Solution PO BID PRN Constipation Lisinopril 5 mg 09/05/20 09:00 09/25/20 08:59 Lisinopril 5 Mg Tablet PO Not Given DAILY [facility] Protocol Magnesium Hydroxide 30 ml 09/19/20 09:31 09/24/20 08:22 Milk Of Magnesia 30 Ml Oral.Susp PO 30 ml TID PRN Administration Constipation Omeprazole 40 mg 09/24/20 06:30 09/25/20 06:41 Omeprazole 40 Mg Capsule.Dr PO 40 mg DAILY@0630 TJ Administration Ondansetron HCl 4 mg 09/05/20 06:55 Ondansetron Hcl 4 Mg/2 Ml Vial IVPUSH Q8H PRN Nausea and Vomiting Pharmacy Consult 1 each 09/04/20 14:11 Consult Rx Perform Med Rec MISCELLANE ONCE PRN Consult order Polyethylene Glycol 17 gm 09/07/20 18:30 09/25/20 08:57 Polyethylene Glycol 3350 17 Gm Powd.Pack PO 17 gm DAILY TJ Administration Sodium Chloride 3 ml 09/05/20 08:00 09/25/20 08:57 0.9 % Sodium Chloride Flush 3 Ml Syringe IVFLUSH 3 ml QSHIFT TJ Administration Sodium Chloride 1 spray 09/09/20 20:21 09/09/20 21:18 Sodium Chloride 0.65 % Nasal 44 Ml Sprbtl NOSTRIL-B 1 spray Q1H PRN Administration Dry Nasal Passages Vitamin D 25 mcg 09/05/20 09:00 09/25/20 08:57 Cholecalciferol (Vitamin D3) 25 Mcg Tablet PO 25 mcg DAILY TJ Administration Labs CBC & Chem 7: 09/25/20 06:32 09/24/20 06:50 Labs: Laboratory Results - last 24 hr 09/24/20 09/24/20 09/25/20 16:20 20:24 06:32 WBC 12.9 H RBC 3.91 L Hgb 12.7 L Hct 36.5 L MCV 93.4 MCH 32.5 MCHC 34.8 RDW 12.0 Plt Count 54 L D MPV Not Reportable Immature Gran % (Auto) 4.5 H Neut % (Auto) 59.6 Lymph % (Auto) 26.4 [place] % (Auto) 8.6 Eos % (Auto) 0.8 Baso % (Auto) 0.1 Lymph # (Auto) 3.4 [place] # (Auto) 1.1 Eos # (Auto) 0.1 Baso # (Auto) 0.0 Abs Immat Gran (auto) 0.58 H Absolute Neuts (auto) 7.7 Absolute Nucleated RBC 0.000 Nucleated RBC % (auto) 0.0 Smear Tech's Comments VERIFIED POC Glucose 272 H 328 H 09/25/20 09/25/20 07:36 11:06 WBC RBC Hgb Hct MCV MCH MCHC RDW Plt Count MPV Immature Gran % (Auto) Neut % (Auto) Lymph % (Auto) [place] % (Auto) Eos % (Auto) Baso % (Auto) Lymph # (Auto) [place] # (Auto) Eos # (Auto) Baso # (Auto) Abs Immat Gran (auto) Absolute Neuts (auto) Absolute Nucleated RBC Nucleated RBC % (auto) Smear Tech's Comments POC Glucose 147 H 210 H Microbiology Microbiology Results: Microbiology 09/10/20 19:15 Blood - Venous Blood Culture - Final No growth after 5 days. 09/10/20 19:15 Blood - Venous Blood Culture - Final No growth after 5 days. 09/04/20 15:00 Blood - Venous Blood Culture - Final Methicillin Res Staph Aureus 09/04/20 14:45 Blood - Venous Blood Culture - Final Methicillin Res Staph Aureus Assessment and Plan (1) MRSA bacteremia: Problem details: MRSA bacteremia Platelets low due to Vancomycin possibly Status: Acute (2) Thrombocytopenia: Status: Acute (3) Diabetic foot ulcer: Status: Acute (4) Necrosis of toe: Status: Acute Assessment and Plan: hosp d#21 60yo M with DM2 with neuropathy admitted for sepsis from ulcerated DM foot infection assoc with MRSA bacteremia, complicated by thrombocytopenia # MRSA bacteremia # ulcerated DM foot infection - BCx 09/04/20 grew MRSA, subsequently negative - MRI 09/05/20 without definitive osteomyelitis - s/p angioplasty R post tib artery 09/06/20, amputation R great toe 09/10/20, revision 09/18/20; per Dr Figueroa, daily wound care with Xeroform, 4x4, and Kerlix wrap + f/u in 2 wk - got 14d of IV vancomycin, to complete the next 28d of therapy with daptomycin,on d#3 [ABX switched due to possible drug-associated t hrombocytopenia) - PICC plcaed 09/09/20 # thrombocytopenia - doubt ITP- stopped dexamethasone. got 2 units of platelets transfused. - platelets continue to improve after vancomycin switched to daptomycin # DM2 with steroid-induced hyperglycemia. A1c 10.5 - continue basal/bolus insulin. MTF on hold. # MGUS - PAYAL on 09/13/20 with faint IgG lambda monoclonal band; repeat PAYAL in 6 mo and f/u Heme/Onc # hypoMg - repleted # HTN - continue lisinopril # dyslipidemia - hold atorvastatin while on daptomycin to avoid skeletal muscle toxicity # constipation - bowel regimen- add lactulose # neuropathy - continue gabapentin # mood disorder - continue fluoxetine # dispo - likely SNF for wound care/IV ABX [pt lives alone]
--- NOTE | 2020-09-25 15:40 | MHC.CM.PN ---
Patient has expressed interest in going to [facility] for his IV ABT. CM explained to Patient that because a QD IV ABT can typically be managed in the home setting and that Patient is relatively functional, [facility] has not authorized SNF placement. CM explained that the [facility] will come in and provide education and show Patient how to administer the IV med. Patient states that he is willing to try to learn and he is agreeable to home with [facility]. CM will follow PRN.
[2020-09-25 16:39] LABS: Glucose, Whole Blood 180 mg/dL (60-115)
[2020-09-25 20:11] LABS: Glucose, Whole Blood 200 mg/dL (60-115)
[2020-09-25] MEDS: Gabapentin 600 MG TABLET PO (22:22)
[2020-09-25] MEDS: Insulin Glargine,Hum.rec.anlog 100 UNIT/ML 10 ML VIAL 70 UNIT SUBCUT (22:23)
[2020-09-26 03:53] VITALS: BP 112/70; PULSE 72; RESP 16; TEMP 36.8; O2SAT 96
[2020-09-26] MEDS: Omeprazole 40 MG CAPSULE.DR PO (05:27)
[2020-09-26 06:04] LABS: MANUAL DIFF FLAG NO
[2020-09-26 06:11] LABS: Basophils Percent Auto 0.1 % (0-2); Eosinophils Absolute Auto 0.2 X10*3/uL (0.0-0.4); Eosinophils Percent Auto 1.2 % (0-4); Hematocrit 35.3 % (42-52); Hemoglobin 12.3 g/dl (14.0-18.0); Imm Gran Abs Auto 0.59 X10*3/uL (0.00-0.03); Lymphocytes Percent Auto 20.2 % (20-40); Mean Corpuscular HGB Conc 34.8 g/dl (31.0-36.0); Mean Corpuscular Volume 94.6 fL (80-98); Mean Platelet Volume 12.8 fL (9.4-12.4); Monocytes Absolute Auto 1.5 X10*3/uL (0.1-1.2); Monocytes Percent Auto 10.2 % (2-11); Neutrophils Absolute Auto 9.4 X10*3/uL (2.0-8.3); Neutrophils Percent Auto 64.3 % (45-73); Red Blood Count 3.73 X10*6/uL (4.60-5.80); Red Cell Distribution Width 12.2 % (11.0-16.0); White Blood Count 14.6 X10*3/uL (4.8-10.8)
[2020-09-26 06:15] LABS: Platelet Count 89 X10*3/uL (160-400)
[2020-09-26 07:31] VITALS: BP 112/65; PULSE 68; RESP 18; TEMP 37.3; O2SAT 97
[2020-09-26 07:51] VITALS: PULSE 72; RESP 19; O2SAT 96
[2020-09-26 08:19] LABS: Glucose, Whole Blood 126 mg/dL (60-115)
[2020-09-26] MEDS: Insulin Glargine,Hum.rec.anlog 100 UNIT/ML 10 ML VIAL 75 UNIT SUBCUT (08:40)
[2020-09-26] MEDS: FLUoxetine HCl 10 MG CAPSULE PO (08:41)
[2020-09-26] MEDS: Cholecalciferol (Vitamin D3) 25 MCG TABLET PO (08:41)
[2020-09-26] MEDS: Docusate Sodium 100 MG CAPSULE PO (08:41)
[2020-09-26] MEDS: polyethylene glycoL 3350 17 GM POWD.PACK PO (08:41)
[2020-09-26] MEDS: Benzonatate 100 MG CAPSULE 200 MG PO (08:41)
[2020-09-26] MEDS: bisacodyL 5 MG TABLET.DR PO (08:41)
[2020-09-26] MEDS: 0.9 % Sodium Chloride Flush 3 ML SYRINGE IVFLUSH (08:42)
[2020-09-26 11:27] LABS: Glucose, Whole Blood 213 mg/dL (60-115)
[2020-09-26] MEDS: Insulin Lispro 100 UNIT/ML 3 ML VIAL SUBCUT ×2 (11:48→16:49)
[2020-09-26 11:49] VITALS: BP 117/66; PULSE 74; RESP 18; TEMP 36.6; O2SAT 95
--- NOTE | 2020-09-26 12:11 | P.F2F_ITS ---
Service Date Service Date: 09/26/20 Encounter Date of encounter: 09/26/20 Reasons for Services Signs and symptoms assessed: IV antibiotic infusion wound care Reason for detention: wound care, administration of IV, SQ, or IM injection, central line care, postoperative assessment and/or care, medication management, medication treatment and teach disease management MD Overseeing Care: Virginie Liao Homebound: Leaving the home is medically contraindicated at this time without the asist of a device and/or another person due th the listed conditions above and below. Reason homebound: immunosuppression / infection risk and weakness related to hospital stay Homebound supporting statement: The patient will require IV daptomycin daily until 10/22/20 via PICC line. Weekly labs (CBCd, BMP, and CPK) should be drawn while on daptomycin. The patient will require daily wound care with Xeroform, 4x4, and Kerlix wrap. Certification: Based on the above findings, I certify that this patient is con fined to the home and needs intermittent detention care, physical therapy and/or speech therapy, or continues to need occupational therapy. The patient is under my care, and I have initiated the establishment of the plan of care. The patient will be followed by a physician who will periodically review the plan of care.
--- NOTE | 2020-09-26 12:57 | P.DS_ITS ---
DS: Providers Provider Date of Service: 09/26/20 Date of admission: 09/05/20 06:55 Primary care physician: Virginie Liao MD Consults: 09/04/20 20:52 Consult to Infectious Diseases Routine Consulting Provider: Freya Fleming Reason for consultation: Diabetic foot wound Has provider been notified: No 09/05/20 06:39 Consult to Infectious Diseases Routine Consulting Provider: Freya Fleming Reason for consultation: diabetic foot wound Has provider been notified: No 09/05/20 13:13 Consult to Vascular Surgery Routine Consulting Provider: Cameron Figueroa Reason for consultation: right foot ulcer Has provider been notified: Yes 09/05/20 18:07 Consult Respiratory Therapy Routine Reason for consultation: bipap at home; sleep apnea 09/09/20 10:22 Consult to Care Team Routine Comment: Reason for consultation: depression 09/10/20 11:41 Consult to Infectious Diseases Routine Consulting Provider: Freya Fleming Reason for consultation: mrsa bactremia 09/13/20 11:31 Consult to Hematology / Oncology Routine Consulting Provider: Mayra Jones Reason for consultation: worsening thrombocytopenia DS: Diagnosis Discharge Diagnosis (1) MRSA bacteremia: Status: Acute (2) Diabetic foot ulcer: Status: Acute (3) Necrosis of toe: Status: Acute (4) Drug-induced thrombocytopenia: Status: Acute (5) Sepsis: Status: Acute (6) Cellulitis: Status: Acute (7) MGUS (monoclonal gammopathy of unknown significance): Status: Acute DS: Medications Discharge Medications Home Medications: Home Medications Medication Instructions Recorded Confirmed Combivent Respimat 2 puff INHALATION Q6H PRN 07/17/20 09/04/20 Tresiba FlexTouch U-100 80 unit SUBCUT QAM 07/17/20 09/04/20 Victoza 3-Chet 1.8 mg SUBCUT DAILY 07/17/20 09/04/20 aspirin 81 mg PO DAILY 07/17/20 09/04/20 gabapentin 600 mg PO BEDTIME 07/17/20 09/04/20 lisinopril 5 mg PO DAILY 07/17/20 09/04/20 metformin 1,000 mg PO BID 07/17/20 09/04/20 Tresiba FlexTouch U-100 65 unit SUBCUT BEDTIME 09/04/20 09/04/20 bisacodyl 5 mg PO BID 09/04/20 09/04/20 cholecalciferol (vitamin D3) 25 mcg PO DAILY 09/04/20 09/04/20 fluoxetine 10 mg PO DAILY 09/04/20 09/04/20 Previous Rx's Medication Instructions Recorded daptomycin 600 mg IV Q24H 26 Days ea 09/26/20 docusate sodium 100 mg PO BID #60 cap 09/26/20 lactulose 30 ml PO DAILY PRN #480 ml 09/26/20 polyethylene glycol 3350 17 g PO DAILY PRN #30 ea 09/26/20 DS: Summary Hospital Course Hospital Course: From history and physical by admitting hospitalist Dede Diaz MD, 09/04/20: This is a 60-year-old male with past medical history of diabetes, hypertension, hyperlipidemia, peripheral neuropathy, COPD who presents to the hospital with complaints of right big toe swelling, drainage, as well as changes in skin color. Patient reports that he started noticing changes in the skin color for about few days now, he also started having malodorous drainage that was green pus in color therefore he was concerning came to the hospital. He reports that he usually follows up with the wound clinic at the [facility] due to this toe having and also chronically and was there about a week ago . He regularly gets I&D of the toe and about a week ago he was there with no complications or issues. He has significant neuropathy and does not feel any pain in his foot, he noticed skin changes were his toe has now become blue and has also dark necrosis at the base of the toe, He has also been having a cough that is non productive, he has some chills with no fever, he has no shortness of breath, has no rhinorrhea, no headache, no change in vision, he has on and off diarrhea, no urinary symptoms, he has had low oral intake. And low appetite. Denies any extremity swelling otherwise. On arrival to the ED vitals are significant for temp of 98.6?, pulse rate of 91, respiratory rate of 18, blood pressure 143/74, 97% O2 on room air. Patient did become tachycardic with a heart rate of 107 Labs are significant for WBC count of 12.1, ESR of 90, PT of 15.9, INR of 1.3, sodium of 131, BUN of 27, creatinine of 1.24 (baseline), glucose of 23, magnesium of 1.5, CRP of 18.4, UA negative, COVID-19 negative, Foot x-ray demonstrates soft tissue swelling without definite erosive changes or gas within the soft tissue Chest x-ray shows unremarkable exam The patient was admitted to the medical/surgical floor for sepsis from ulcerated diabetic foot infection complicated by MRSA bacteremia. MRI did not show definitive osteomyelitis. He was seen by Infectious Disease and Vascular Surgery. He was treated with vancomycin IV with clearance of the blood cultures. He underwent angioplasty of the right posterior tibial artery on 09/06/20 followed by amputation of the right great toe on 09/10/20 with a revision surgery on 09/18/20. PICC line was placed on 09/09/20. Hospitalization was complicated by thrombocytopenia with platelet billy of 16,000. Hematology was consulted. HIT assay was negative. 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 Ultimately, he did not respond to dexamethasone and the thrombocytopenia was attributed to the vancomycin. With switching his antibiotic to daptomycin, his platelet count began to recover and was 89,000 on the day of discharge. 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 He received 14 days of vancomycin before he was switched to daptomycin. His insurance declined a SNF stay for antibiotic administration and wound care, so he was set up with VNA and home infusion. He will require 26 more days of antibiotic therapy with daptomycin. Statin therapy should be stopped while he is on daptomycin due avoid skeletal muscle toxicity. While on antibiotic therapy, he needs weekly lab draws to include CBCd, BMP, CPK, ESR, and CRP. He should follow up with Infectious Disease specialist Dr Fleming in 2 weeks. For wound care, he needs daily changes with Xeroform followed by 4x4 and Aram hopkins. He will follow up with Dr Figueroa from Vascular Surgery in 2 weeks. Finally, regarding his thrombocytopenia and MGUS, he should follow up with Dr Padgett from Hematology in 4 weeks. Time Spent with Patient Time attestation: Total time spent providing and/or coordinating discharge services: 50 Discharge coordination time: Greater than 30 minutes Physical Exam Vital Signs: Vital Signs: Last Vital Signs Temp 97.8 F 09/26/20 11:49 Pulse 74 02/04/21 11:49 Resp 18 09/26/20 11:49 BP 117/66 09/26/20 11:49 Pulse Ox 95 09/26/20 11:49 Body Mass Index 37.2 Gen: in no acute distress HEENT: sclera anicteric, moist mucus membranes, no gum bleeding Neck: supple Lungs: clear to auscultation bilaterally Heart: regular rate and rhythm, no murmurs Abd: soft, non-tender, non-distended Ext: no edema, RUE PICC without signs of infection Skin: warm/well-perfused, R foot in dry dressing Neuro: alert and oriented x3, no focal findings Psych: appropriate affect DS: Data Data Completed and Pending Completed studies during hospitalization [Text1]: Pending at discharge 09/10/20 13:31 Surgical [PTH] Routine 09/17/20 14:01 Surgical [PTH] Routine Laboratory Results WBC 14.6 X10*3/uL (4.8-10.8) H 09/26/20 05:47 RBC 3.73 X10*6/uL (4.60-5.80) L 09/26/20 05:47 Hgb 12.3 g/dl (14.0-18.0) L 09/26/20 05:47 Hct 35.3 % (42-52) L 09/26/20 05:47 MCV 94.6 fL (80-98) 09/26/20 05:47 MCH 33.0 pg (27.0-33.0) 09/26/20 05:47 MCHC 34.8 g/dl (31.0-36.0) 09/26/20 05:47 RDW 12.2 % (11.0-16.0) 09/26/20 05:47 Plt Count 89 X10*3/uL (160-400) L D 09/26/20 05:47 MPV 12.8 fL (9.4-12.4) H 09/26/20 05:47 Immature Gran % (Auto) 4.0 % (0.0-0.4) H 09/26/20 05:47 Neut % (Auto) 64.3 % (45-73) 09/26/20 05:47 Lymph % (Auto) 20.2 % (20-40) 09/26/20 05:47 [place] % (Auto) 10.2 % (2-11) 09/26/20 05:47 Eos % (Auto) 1.2 % (0-4) 09/26/20 05:47 Baso % (Auto) 0.1 % (0-2) 09/26/20 05:47 Lymph # (Auto) 3.0 X10*3/uL (1.2-4.9) 09/26/20 05:47 [place] # (Auto) 1.5 X10*3/uL (0.1-1.2) H 09/26/20 05:47 Eos # (Auto) 0.2 X10*3/uL (0.0-0.4) 09/26/20 05:47 Baso # (Auto) 0.0 X10*3/uL (0.0-0.2) 09/26/20 05:47 Abs Immat Gran (auto) 0.59 X10*3/uL (0.00-0.03) H 09/26/20 05:47 Absolute Neuts (auto) 9.4 X10*3/uL (2.0-8.3) H 09/26/20 05:47 Absolute Nucleated RBC 0.000 X10*3/uL (0.0-0.012) 09/26/20 05:47 Nucleated RBC % (auto) 0.0 /100WBC (0.0-0.2) 09/26/20 05:47 Smear Tech's Comments VERIFIED 09/25/20 06:32 ESR 58 MM/HR (0-15) H 09/24/20 06:50 PT 15.0 SEC (10.8-13.0) H 09/17/20 05:49 INR 1.3 (0.9-1.1) H 09/17/20 05:49 APTT 38.3 SEC (24.1-38.0) H 09/13/20 16:54 Fibrinogen > 700 MG/DL (259-690) H 09/13/20 16:54 D-Dimer 482 NG/ML 09/13/20 16:54 Hep-Ind Thrombocytop Com See Below 09/13/20 16:54 Sodium 136 mmol/L (135-145) 09/24/20 06:50 Potassium 4.2 mmol/L (3.3-5.1) 09/24/20 06:50 Chloride 97 mmol/L (96-108) 09/24/20 06:50 Carbon Dioxide 28 mmol/L (22-29) 09/24/20 06:50 Anion Gap 15 (12-20) 09/24/20 06:50 BUN 33 mg/dL (9-16) H 09/24/20 06:50 Creatinine 1.05 mg/dL (0.5-1.4) 09/24/20 06:50 Estim Creat Clear Calc 106.5 09/24/20 06:50 Estimated GFR > 60 09/24/20 06:50 POC Glucose 213 mg/dL (60-115) H 09/26/20 11:20 Random Glucose 286 mg/dL (60-115) H 09/24/20 06:50 Estimat Average Glucose 255 mg/dL 09/24/20 06:50 Hemoglobin A1c % 10.5 % 09/24/20 06:50 Lactic Acid 1.2 mmol/L (0.5-2.0) 09/04/20 14:45 Calcium 8.8 mg/dL (8.4-10.2) 09/24/20 06:50 Magnesium 1.7 mg/dL (1.6-2.6) 09/24/20 06:50 Ferritin 609 ng/mL (20-250) H 09/04/20 14:45 Total Bilirubin 1.6 mg/dL (0.0-1.0) H 09/04/20 14:46 Direct Bilirubin 0.9 mg/dL (0.0-0.5) H 09/04/20 14:46 AST 36 U/L (5-37) D 09/04/20 14:46 ALT 61 U/L (0-40) H 09/04/20 14:46 Alkaline Phosphatase 134 U/L (39-117) H D 09/04/20 14:46 Lactate Dehydrogenase 170 U/L (118-273) 09/13/20 16:54 Total Creatine Kinase 21 U/L (38-174) L 09/24/20 06:50 C-Reactive Protein 1.16 mg/dL (< or = 0.50) H 09/24/20 06:50 B-Natriuretic Peptide 59 pg/mL (<100) 09/04/20 14:44 Total Protein 6.7 g/dL (6.5-8.0) 09/04/20 14:46 Albumin 3.7 g/dL (3.5-5.0) 09/04/20 14:46 Procalcitonin 0.18 ng/mL 09/04/20 14:44 Urine Color DARK YELLOW 09/04/20 20:00 Urine Appearance HAZY 09/04/20 20:00 Urine pH 5.5 (5.0-8.0) 09/04/20 20:00 Ur Specific Beggs >= 1.030 (1.005-1.025) H 09/04/20 20:00 Urine Protein TRACE MG/DL (NEG-TRACE) 09/04/20 20:00 Urine Glucose (UA) 100 MG/DL (NEG) H 09/04/20 20:00 Urine Ketones NEG MG/DL (NEG) 09/04/20 20:00 Urine Blood NEG (NEG) 09/04/20 20:00 Urine Nitrite NEG (NEG) 09/04/20 20:00 Ur Leukocyte Esterase NEG (NEG) 09/04/20 20:00 Vancomycin Trough 6.3 mcg/mL (10.0-20.0) L 09/24/20 06:50 IgG Total 1568 mg/dL (600-1540) H 09/13/20 16:54 IgA Total 678 mg/dL (70-320) H 09/13/20 16:54 IgM 36 mg/dL (50-300) L 09/13/20 16:54 PAYAL Interpretation SEE NOTE 09/13/20 16:54 Heparin Dep Plt Ab OD 0.065 OD UNITS (<OR= 0.300) 09/13/20 16:54 Hep-Induced Plt Ab Devi NEGATIVE (NEGATIVE) 09/13/20 16:54 Coronavirus (PCR) NEGATIVE (Negative) 09/04/20 15:00 COVID-19 (JOSE) Negative (Negative) 09/21/20 09:42 COVID-19 Clin Com See Note 09/21/20 09:42 HIV 1&2 Ab/P24 Ag 4thGn Nonreactive (Nonreactive) 09/24/20 06:50 Influenza Type A (PCR) NEGATIVE (Negative) 09/04/20 15:00 Influenza Type B (PCR) NEGATIVE (Negative) 09/04/20 15:00 RSV RNA Qual (PCR) NEGATIVE (Negative) 09/04/20 15:00 Blood Type O Positive 09/22/20 10:04 Antibody Screen NEGATIVE 09/22/20 10:04 Impressions Foot X-Ray 09/04/20 11:43 IMPRESSION: Soft tissue swelling without definite erosive change or gas within the soft tissues. Chest X-Ray 09/04/20 14:12 IMPRESSION: Unremarkable examination. Venous Duplex 09/04/20 19:10 IMPRESSION: No DVT demonstrated in the right lower extremity. Prominent groin nodes noted. Correlation needs to be made clinically Abd US [id number] 09/04/20 22:51 IMPRESSION: Right lower extremity: Triphasic waveforms down to the popliteal arteries with normal MAGNUS. Left lower extremity: Triphasic waveform down to the popliteal artery. Abnormally elevated MAGNUS likely related to calcified vessel with inability to compress. Duplex Scan Lower Extremity Artery 09/05/20 12:35 IMPRESSION: Right lower extremity: Triphasic waveforms down to the popliteal arteries with normal MAGNUS. Left lower extremity: Triphasic waveform down to the popliteal artery. Abnormally elevated MAGNUS likely related to calcified vessel with inability to compress. Foot MRI 09/05/20 20:52 IMPRESSION: * The edema and subcutaneous tissue enhancement of the foot is suggestive of cellulitis. No soft tissue abscess. * There appears to be a superficial wound medial to the region of the great toe interphalangeal joint and distal phalanx. Findings are consistent with mild reactive hyperemia/edema involving phalanges of the great toe. These phalanges have preserved fatty marrow signal on the T1-weighted images. There is no convincing osteomyelitis. * Severe atrophy and fatty replacement of muscles of the foot, which can be a sequela of chronic diabetic neuropathy. Discharge Plan Discharge Patient Disposition: Home Health Service Referrals: Freya Fleming MD [Physician] - (2 weeks MRSA bacteremia) Virginie Liao MD [Primary Care Provider] - Cameron Figueroa MD [Physician] - (2 weeks s/p surgery) Venessa Padgett MD [Physician] - (4 weeks for drug-induced thrombocytopenia and MGUS) Discharge Medications: New daptomycin 500 mg recon soln 600 mg IV Q24H 26 Days RF: 0 polyethylene glycol 3350 17 gram Powder In Packet 17 g PO DAILY PRN (Reason: Constipation) Qty: 30 RF: 0 docusate sodium 100 mg Capsule 100 mg PO BID Qty: 60 RF: 0 lactulose 20 gram/30 mL Solution 30 ml PO DAILY PRN (Reason: Constipation) Qty: 480 RF: 0 Continued gabapentin 600 mg tablet 600 mg PO BEDTIME RF: 0 aspirin 81 mg tablet,delayed release (DR/EC) 81 mg PO DAILY RF: 0 metformin 1,000 mg tablet 1,000 mg PO BID RF: 0 lisinopril 5 mg tablet 5 mg PO DAILY RF: 0 Victoza 3-Chet 0.6 mg/0.1 mL (18 mg/3 mL) pen injector 1.8 mg subcut DAILY RF: 0 Tresiba FlexTouch U-100 100 unit/mL (3 mL) insulin pen 80 unit subcut QAM RF: 0 Combivent Respimat 20-100 mcg/actuation mist 2 puff inhalation Q6H PRN (Reason: Shortness Of Breath Or Wheezing) RF: 0 fluoxetine 10 mg capsule 10 mg PO DAILY RF: 0 cholecalciferol (vitamin D3) 25 mcg (1,000 unit) tablet 25 mcg PO DAILY RF: 0 bisacodyl 5 mg tablet,delayed release (DR/EC) 5 mg PO BID RF: 0 Tresiba FlexTouch U-100 100 unit/mL (3 mL) insulin pen 65 unit subcut BEDTIME RF: 0 Discontinued atorvastatin 40 mg tablet 40 mg PO BEDTIME RF: 0 Discharge Orders: Discharge Order (Routine); Ordered 09/26/20 Ordered By: Tyrell Gomez Diet: diabetic diet and low salt diet Activity on Discharge: As tolerated Stand Alone Forms: Patient Portal Discharge page Care Plan Goals: resolution of foot infection and bloodstream infection Health Concerns: MRSA bacteremia diabetic foot infection thrombocytopenia MGUS [monoclonal gammopathy of uncertain significance- an abnormal protein in your blood] Plan of Treatment: daptomycin 600 mg IV daily via PICC line, end date 10/22/20. STOP atorvastatin while on daptomycin due to drug interaction. weekly labs while on daptomycin: CBCd, BMP, CPK, ESR, CRP follow up with ID specialist Dr Mallika Fleming in 2 weeks: [address] [place] [address], [address], [place] [id number] surgeries done: angioplasty R postrior tibial artery 09/06/20, amputation R great toe 09/10/20, revision 09/18/20 daily wound care with Xeroform, 4x4, and Kerlix wrap follow up with vascular surgeon Dr Cameron Figueroa in 2 weeks: [address] [place] [address], [address] [place], [place] [id number] avoid vancomycin [added to your allergy list] follow up in 1 month with equity manager Venessa Padgett: [id number] Padgett as above. repeat immunofixation electrophoresis blood test in 6 months' time. Patient Instructions: MRSA (Methicillin-Resistant Staphylococcus Aureus) (DC), Diabetic Foot Ulcers (DC), Bacteremia (DC), PICC (Peripherally Inserted Central Catheter) (DC)
--- NOTE | 2020-09-26 14:52 | MHC.CM.PN ---
PATIENT IS RETURNING HOME TODAY VIA [facility]. HE WILL RECEIVE [facility] AND [facility]. RN AWARE OF PLAN. IMM 2/ IN CHART
[2020-09-26 15:42] VITALS: BP 125/64; PULSE 78; RESP 18; TEMP 37.4; O2SAT 96
--- NOTE | 2020-09-26 15:49 | MHC.CM.PN ---
THIS CONSUMER BANKER REINFORCED RN TEACHING THAT PATIENT SHOULD NOT BE TAKING HIS 40 MG PO ATORVASTATIN WHILE ON DAPTOMYCIN. ADELIA AGREES TO THIS PLAN.
[2020-09-26 16:25] LABS: Glucose, Whole Blood 203 mg/dL (60-115)
[2020-09-26] MEDS: DAPTOmycin 600 MG in 0.9 % Sodium Chloride 50 ML 124 MG IV (16:42)
[2020-09-26 19:48] VITALS: BP 120/56; PULSE 78; RESP 18; TEMP 37.2; O2SAT 94
--- NOTE | 2020-09-27 14:00 | MHC.CM.PN ---
POST DISCHARGE NOTE - CALL RECEIVED FROM [facility] LIAISON AT 14:00. ACCORDING TO LIAISON, PATIENT CALLED THE AGENCY THIS MORNING TO TELL THE VISITING NURSE WHICH DOOR TO USE, AND THAT PATIENT WOULD BUZZ HER IN . VISITING RN ARRIVED, AND THERE IS NO BUZZER, AND NO RESPONSE ON PATIENT'S PHONE, DESPITE MULTIPLE ATTEMPTS TO REACH THE PATIENT. PER REVIEW OF ED TRACKER, PATIENT IS NOT WITH US AT TIME OF THIS NOTE.
== END 2020-09-26 21:22 | disposition home health service (06) | DRG 854 ==
LOC: HO.ED 16:04 → HO.EDOVER 09-05 06:58 → HO.S3 09-05 08:14
PROVIDERS: Hospitalist; Internal Medicine; Internal Medicine Medical Oncology; Physician Assistant; Student in an Organized Health Care Education/Training Program; Surgery Vascular Surgery; Admitting Provider Internal Medicine; Emergency Provider Emergency Medicine; PCP Internal Medicine; Visit Provider Family Medicine
PROC: 047R3ZZ Dilation of Right Posterior Tibial Artery, Percutaneous Approach (ICD-10-PCS; principal; 2020-09-06 07:30)
PROC: 0Y6P0Z1 Detachment at Right 1st Toe, High, Open Approach (ICD-10-PCS; principal; 2020-09-10 12:00)
PROC: 0Y6P0Z0 Detachment at Right 1st Toe, Complete, Open Approach (ICD-10-PCS; principal; 2020-09-17 12:30)
DX: A41.02 Sepsis due to Methicillin resistant Staphylococcus aureus (principal); L03.115 Cellulitis of right lower limb; E11.42 Type 2 diabetes mellitus with diabetic polyneuropathy; E11.621 Type 2 diabetes mellitus with foot ulcer; L97.519 Non-pressure chronic ulcer of other part of right foot with unspecified severity; E83.42 Hypomagnesemia; E11.51 Type 2 diabetes mellitus with diabetic peripheral angiopathy without gangrene; E11.628 Type 2 diabetes mellitus with other skin complications; L03.031 Cellulitis of right toe; E11.65 Type 2 diabetes mellitus with hyperglycemia; K59.00 Constipation, unspecified; D69.6 Thrombocytopenia, unspecified; I70.235 Atherosclerosis of native arteries of right leg with ulceration of other part of foot; Z20.822 Contact with and (suspected) exposure to COVID-19; Z79.4 Long term (current) use of insulin; Z79.82 Long term (current) use of aspirin; Z79.899 Other long term (current) drug therapy
CPT/HCPCS: 0241U; 36253; 36415; 36573; 71045; 73630; 73720; 76942; 80048; 80076; 80202; 81003; 82550; 82565; 82728; 82784; 82947; 83036; 83605; 83615; 83735; 83880; 84145; 85025; 85027; 85379; 85384; 85610; 85652; 85730; 86022; 86140; 86334; 86850; 86900; 86901; 87040; 87077; 87147; 87186; 87205; 87389; 87635; 88305; 88311; 93005; 93306; 93923; 93925; 93971; 94660; 96365; 96366; 96367; 97162; 99152; 99153; 99225; 99283; 99285; A9585; C1725; C1751; C1760; C1769; C1887; J0878; J2370; J2405; J2543; J2765; J3010; J3370; J3475; J8540; P9035; P9037; Q9967

== ENCOUNTER 2020-10-01 10:45 | Outpatient (REF) | payer OTHER, SELFPAY ==
[2020-10-01 10:51] LABS: MANUAL DIFF FLAG NO
[2020-10-01 11:05] LABS: Basophils Percent Auto 0.2 % (0-2); Eosinophils Absolute Auto 0.1 X10*3/uL (0.0-0.4); Eosinophils Percent Auto 1.1 % (0-4); Hematocrit 31.9 % (42-52); Hemoglobin 10.7 g/dl (14.0-18.0); Imm Gran Abs Auto 0.08 X10*3/uL (0.00-0.03); Imm Gran Pct Auto 0.6 % (0.0-0.4); Lymphocytes Absolute Auto 1.5 X10*3/uL (1.2-4.9); Lymphocytes Percent Auto 11.9 % (20-40); Mean Corpuscular HGB Conc 33.5 g/dl (31.0-36.0); Mean Corpuscular Hemoglobin 31.8 pg (27.0-33.0); Mean Corpuscular Volume 94.9 fL (80-98); Mean Platelet Volume 10.7 fL (9.4-12.4); Monocytes Absolute Auto 1.5 X10*3/uL (0.1-1.2); Monocytes Percent Auto 11.6 % (2-11); Neutrophils Absolute Auto 9.5 X10*3/uL (2.0-8.3); Neutrophils Percent Auto 74.6 % (45-73); Platelet Count 274 X10*3/uL (160-400); Red Blood Count 3.36 X10*6/uL (4.60-5.80); Red Cell Distribution Width 11.8 % (11.0-16.0); White Blood Count 12.7 X10*3/uL (4.8-10.8)
[2020-10-01 11:43] LABS: Anion Gap 14 (12-20); Blood Urea Nitrogen 18 mg/dL (9-16); C Reactive Protein 21.31 mg/dL (< or = 0.50); Calcium 7.8 mg/dL (8.4-10.2); Carbon Dioxide 25 mmol/L (22-29); Chloride 97 mmol/L (96-108); Estimated Glomerular Filt Rate > 60; Glucose Random 351 mg/dL (60-115); Potassium 4.8 mmol/L (3.3-5.1); Sodium 131 mmol/L (135-145)
[2020-10-01 12:11] LABS: Erythrocyte Sedimentation Rate 104 MM/HR (0-15)
== END 2020-10-01 10:46 | disposition home or self-care (01) ==
LOC: HO.LNP 10:45
PROVIDERS: Visit Provider Internal Medicine
DX: T87.89 Other complications of amputation stump (principal); T36.8X5A Adverse effect of other systemic antibiotics, initial encounter; Y92.9 Unspecified place or not applicable; D69.59 Other secondary thrombocytopenia; E11.621 Type 2 diabetes mellitus with foot ulcer; E11.42 Type 2 diabetes mellitus with diabetic polyneuropathy; L97.519 Non-pressure chronic ulcer of other part of right foot with unspecified severity; D47.2 Monoclonal gammopathy; E78.5 Hyperlipidemia, unspecified; I10 Essential (primary) hypertension; Z87.891 Personal history of nicotine dependence
CPT/HCPCS: 80048; 82550; 85025; 85652; 86140; 99212

== ENCOUNTER 2020-10-08 11:31 | Outpatient (REF) | payer OTHER, SELFPAY ==
[2020-10-08 11:41] LABS: MANUAL DIFF FLAG NO
[2020-10-08 11:48] LABS: Basophils Percent Auto 0.2 % (0-2); Eosinophils Absolute Auto 0.2 X10*3/uL (0.0-0.4); Eosinophils Percent Auto 1.6 % (0-4); Hematocrit 30.9 % (42-52); Hemoglobin 10.5 g/dl (14.0-18.0); Imm Gran Abs Auto 0.14 X10*3/uL (0.00-0.03); Imm Gran Pct Auto 1.1 % (0.0-0.4); Lymphocytes Absolute Auto 1.9 X10*3/uL (1.2-4.9); Mean Corpuscular Hemoglobin 31.8 pg (27.0-33.0); Mean Corpuscular Volume 93.6 fL (80-98); Mean Platelet Volume 10.3 fL (9.4-12.4); Monocytes Percent Auto 8.1 % (2-11); Neutrophils Absolute Auto 9.2 X10*3/uL (2.0-8.3); Platelet Count 311 X10*3/uL (160-400); Red Cell Distribution Width 11.9 % (11.0-16.0); White Blood Count 12.4 X10*3/uL (4.8-10.8)
[2020-10-08 12:46] LABS: Anion Gap 17 (12-20); Blood Urea Nitrogen 29 mg/dL (9-16); C Reactive Protein 15.88 mg/dL (< or = 0.50); Carbon Dioxide 22 mmol/L (22-29); Chloride 93 mmol/L (96-108); Estimated Glomerular Filt Rate 47; Glucose Random 356 mg/dL (60-115); Potassium 4.8 mmol/L (3.3-5.1); Sodium 127 mmol/L (135-145)
[2020-10-08 12:48] LABS: Erythrocyte Sedimentation Rate 107 MM/HR (0-15)
== END 2020-10-08 11:32 | disposition home or self-care (01) ==
LOC: HO.LNP 11:31
PROVIDERS: Visit Provider Internal Medicine
DX: T87.89 Other complications of amputation stump (principal)
CPT/HCPCS: 80048; 82550; 85025; 85652; 86140

== ENCOUNTER 2020-10-09 12:28 | Inpatient (IN) | payer OTHER, SELFPAY ==
--- NOTE | ~2020-10-09 | US_ITS ---
EXAMINATION: US VENOUS ULTRASOUND WITH DOPPLER LOWER EXTREMITY, RIGHT CLINICAL INFORMATION: Pain status post surgery COMPARISON: DVT study right lower extremity 09/04/2020 TECHNIQUE: Ultrasound of the deep veins is performed from the hip to the calf with compression sonography and color and pulse Doppler assessment. Spectral analysis with color-flow imaging is performed. FINDINGS: There is normal venous compression and respiratory variation and augmented flow. The visualized common femoral vein, superficial femoral vein, profunda femoral vein, popliteal vein, and the trifurcation region shows no evidence of deep venous thrombosis. There is no significant popliteal fossa cyst. If the patient's symptoms persist, followup ultrasound in 5 days 7 days might be of value to exclude proximal propagation from a non-visualized calf vein. US/US venous duplex LE RT IMPRESSION: No DVT demonstrated in the right lower extremity.
--- NOTE | ~2020-10-09 | XR_ITS ---
EXAMINATION: XR BILATERAL HIPS WITH AP PELVIS CLINICAL INFORMATION: Fall and pain. COMPARISON: None TECHNIQUE: AP view of the pelvis and single views of each hip were obtained. FINDINGS: The bones and soft tissues are normal. No fracture. Sacroiliac joints, hips, pubic symphysis are approximated. No abnormal soft tissue calcifications. XR/XR hip BI w PEL1V IMPRESSION: Normal pelvis and hips. No acute fracture or malalignment.
--- NOTE | ~2020-10-09 | US_ITS ---
EXAMINATION: US NON-INVASIVE ASSESSMENT OF THE ARTERIES OF LOWER EXTREMITY, RIGHT Lon Michelle MD CLINICAL INFORMATION: Right lower extremity pain. TECHNIQUE: Right lower extremity duplex ultrasound was performed with velocity measurements and waveform analysis in the common femoral artery, profunda femoris artery, proximal mid and distal superficial femoral artery, popliteal artery and tibial vessels. This study was performed only at rest. COMPARISON: Bilateral arterial duplex 09/05/2020. FINDINGS: Velocities in cm/sec and phasicity as well as the presence of plaque are reported below. RIGHT LEG: Minimal plaque is seen and triphasic flow is noted throughout with the exception of the posterior tibial artery which appears to be occluded. Common Femoral: 88. Profunda Femoris: 59. Proximal SFA: 68. Mid SFA: 79. Distal SFA: 74. Popliteal: 57. Peroneal: 55. Posterior Tibial Artery: No flow seen. Prominent groin nodes are noted measuring 1.4-1.6 cm. US/US arterial duplex LE RT IMPRESSION: There is no evidence of any hemodynamically significant lower extremity arterial disease by pressure, waveform or duplex Doppler criteria at rest. 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
--- NOTE | ~2020-10-09 | CT_ITS ---
EXAMINATION: CT HEAD WITHOUT CONTRAST CLINICAL INFORMATION: Fall and potential head injury COMPARISON: 07/15/2020 TECHNIQUE: Contiguous axial imaging was performed from the skull base to vertex without intravenous administration of contrast. This CT examination was performed using dose optimization techniques as appropriate, variously including the following: *Automated exposure control *Adjustment of mA and/or kV according to patient size (this includes techniques or standardized protocols for targeted exams where dose is matched to indication/reason for exam; i.e. extremities or head) *Use of iterative reconstruction technique DLP: 867 mGy-cm FINDINGS: No evidence of acute intracranial hemorrhage or extra-axial fluid collection. No evidence of acute territorial infarction. No evidence of mass lesion, mass effect or midline shift. The ventricles are symmetric in configuration and normal in size. The basal cisterns are patent. The calvarium is intact. Limited views of the paranasal sinuses are unremarkable. Mastoid air cells are well aerated and middle ear cavities are clear. Limited views of the orbits are unremarkable. CT/CT head/brain wo con IMPRESSION: No acute intracranial pathology.
[2020-10-09 16:21] VITALS: BP 115/68; PULSE 96; RESP 16; TEMP 36.8; O2SAT 96; BMI 36.7
--- NOTE | 2020-10-09 16:37 | ECG_ITS ---
Test Reason : MEDICAL Blood Pressure : / mmHG Vent. Rate : 087 BPM Atrial Rate : 416 BPM P-R Int : 000 ms QRS Dur : 082 ms QT Int : 372 ms P-R-T Axes : 000 027 051 degrees QTc Int : 447 ms Accelerated Junctional rhythm Abnormal ECG When compared with ECG of 04-SEP-2020 16:13, Junctional rhythm has replaced Sinus rhythm Referred By: Ruben Soto Electronically Signed By:Lewis Maloney
--- NOTE | 2020-10-09 16:46 | ED.GENADULT ---
HPI - General Adult General Chief complaint: General Medical Stated complaint: ?blood clot Time Seen by Provider: 10/09/20 16:04 Source: patient Mode of arrival: wheelchair Limitations: no limitations History of Present Illness HPI narrative: This is a 60-year-old male with past medical history as noted below including history of hyperlipidemia, hypertension, insulin-dependent diabetes, extensive peripheral vascular disease who has had several several angioplasties of the right lower extremity as well as amputations of necrotic toes most recently of the right great toe who presents with complaint of leg pain questioning blood clot after toe amputation. States he has had thigh pain in the medial aspect of the thigh and groin area for the past several days thinking that this is from increasing activity that he has had. He denies any chest pain or shortness of breath. No fever. He does report that he is currently on long-term antibiotics due to the toe amputation and he does have a right upper extremity PICC line. Onset (ago): day(s) Severity: moderate Associated symptoms: denies other symptoms Treatments prior to arrival: none Related Data Home Medications Medication Instructions Recorded Confirmed Victoza 3-Chet 1.8 mg SUBCUT DAILY 07/17/20 10/09/20 aspirin 81 mg PO DAILY 07/17/20 10/09/20 gabapentin 600 mg PO BEDTIME 07/17/20 10/09/20 lisinopril 5 mg PO DAILY 07/17/20 10/09/20 metformin 1,000 mg PO BID 07/17/20 10/09/20 bisacodyl 5 mg PO BID 09/04/20 10/09/20 cholecalciferol (vitamin D3) 25 mcg PO DAILY 09/04/20 10/09/20 blood sugar diagnostic #10 ea 10/01/20 fluoxetine 20 mg capsule 20 mg PO DAILY 10/01/20 10/09/20 atorvastatin 40 mg PO BEDTIME 10/09/20 10/09/20 insulin degludec [Tresiba SUBCUT DAILY 10/09/20 FlexTouch U-100] Previous Rx's Medication Instructions Recorded docusate sodium 100 mg PO BID #60 cap 09/26/20 lactulose 30 ml PO DAILY PRN #480 ml 09/26/20 polyethylene glycol 3350 17 g PO DAILY PRN #30 ea 09/26/20 Allergies Allergy/AdvReac Type Severity Reaction Status Date / Time vancomycin AdvReac Severe thrombocyto Verified 10/01/20 13:53 penia Review of Systems Review of Systems: Constitutional: No Weight loss, No Fever, No Chills, No Night Sweats, No Fatigue, No Malaise ENT/Mouth: No Hearing loss, No Ear Pain, No Nasal Congestion, No Sinus Pain, No Hoarseness, No sore throat, No Rhinorrhea, No Swallowing Difficulty Eyes: No Eye Pain, No Swelling, No Redness, No Foreign Body, No Discharge, No Vision Changes Cardiovascular: No Chest Pain, No SOB, No Dyspnea on Exertion, No Orthopnea, No Edema, No Palpitations Respiratory: No Cough, No Sputum, No Wheezing, No Smoke Exposure, No Dyspnea Gastrointestinal: No Nausea, No Vomiting, No Diarrhea, No Constipation, No abdominal Pain, No Hematochezia, No Melena Genitourinary: No Dysuria, No Urinary Frequency, No Hematuria, No Urinary Incontinence, No Urgency, No Flank Pain, No Urinary Flow Changes, No Hesitancy Musculoskeletal: No joint pain, No Myalgias, No Joint Swelling, as noted per HPI right lower extremity pain Skin: No Skin Lesions, No rash Neuro: No Weakness, No Numbness, No Paresthesias, No Loss of Consciousness, No Dizziness, No Headache Psych: No Social Issues Heme/Lymph: No Bruising, No Bleeding,No Lymphadenopathy Endocrine: No Polyuria, No Polydipsia, No Temperature Intolerance Yes all other systems are reviewed and are negative [facility] Past Medical History Medical History (Updated 10/09/20 @ 16:26 by Oksana Bautista) Amputated great toe of right foot Back pain Drug-induced thrombocytopenia Hyperlipidemia Hypertension IDDM (insulin dependent diabetes mellitus) MGUS (monoclonal gammopathy of unknown significance) Neck pain Peripheral neuropathy Psychiatric diagnosis Sleep apnea Surgical History H/O colonoscopy Hx of angioplasty Hx of appendectomy Hx of foot surgery Hx of tonsillectomy Hx of umbilical hernia repair Social History Social History Household Members: None Housing: Apartment Alcohol intake: never Smoking Status: Former smoker Second Hand Smoke Exposure: No Advance Directives: Yes Advance Directives on File: Yes Advance Directives Date on File: 09/27/20 service: Yes Current occupational status: unemployed Physical Exam Vital Signs: Vital Signs: Last Vital Signs Temp 8.9 F L 10/09/20 17:36 Pulse 83 10/09/20 17:36 Resp 16 10/09/20 17:36 BP 112/66 10/09/20 17:36 Pulse Ox 99 10/09/20 17:36 Body Mass Index 36.7 Temperature of 98.9 degrees. Inter in air by field support technician will correct this. Reviewed Const: Other: Appears older than stated age disheveled. General: cooperative; No acute distress or intoxicated appearing Nutritional Appearance: average body habitus Orientation/consciousness: patient oriented x3 HENMT: Head: Yes normal to inspection Ears: hearing grossly normal bilaterally Eyes: General: appearance normal, both eyes and all related structures Visual Muro: normal visual muro by confrontation Neck: Neck: Yes normal visual inspection, No positive Brudzinski's sign, No positive Kernig's sign and No tender Thyroid: Thyroid normal Chest: Chest palpation & inspection: normal inspection of the chest Resp: Effort & Inspection: normal respiratory effort Auscultation: clear to auscultation bilaterally Cardio: Jugular venous distension: no JVD Rhythm: regular rhythm Heart sounds: S1 normal heart sound present and S2 normal heart sound present GI: Inspection: Yes normal to inspection Palpation (GI): Soft to palpation Percussion: Yes normal to percussion Auscultation: normal bowel sounds : General: Yes no CVA tenderness Back/Spine/Pelvis: Back: no CVA tenderness Skin: General skin exam: no rashes or lesions noted Neuro: General: patient oriented x3 Extrem: Other: Points at pain at the medial aspect of the right thigh. Negative Homans. No lower extremity edema bilateral. He has a wound dressing on the right lower extremity and the tip is exposed. There is previous amputation site with Gelfoam dressing. Second 3rd toe bluish discoloration with some discharge. General: Yes normal to inspection and Yes full ROM Course Course Course Narrative: Directly after I evaluated patient Dr. Figueroa called about this patient he reports to me that he is a candidate for trans metatarsal amputation and was plan to do this last week given the poor progression of healing and his wounds however he showed up to procedure day a breakfast thus procedure was canceled. Patient has very poor compliance and inability for follow-up does recommend that I admit the patient and he will discuss treatment options including further instrumentation of his right lower extremity. Reevaluation(s) Reevaluation #1: Patient with recent PICC line on daptomycin already. No signs of acute infection screening labs ordered case discussed with hospitalist for admission. He offers no other complaints. Consultations Consultation #1: [id number] Case discussed with hospitalist Enriqueta aware the presentation of right lower extremity pain and extensive history with recent stay here is a PICC line he is currently on daptomycin daily with home VNA Dr. Figueroa vascular recommendation for admission for surgical intervention. Medical Decision Making Imaging Data Right lower extremity venous ultrasound with Doppler: Radiologist's impression: [address] [id number] ReportSigned Patient: Ramy BensonMR#: [id number]: 1960cct:[id number]/Sex: 60 / MADM Date: 10/09/20Loc: E[address]l[address] Dr: Ordering Physician: Ruben Soto NP Date of Service: 10/09/20 Procedure(s): US venous duplex LE RT Accession Number(s): [id number] cc: Ruben Soto RESOURCE MANAGER~ EXAMINATION: US VENOUS ULTRASOUND WITH DOPPLER LOWER EXTREMITY, RIGHT CLINICAL INFORMATION: Pain status post surgery COMPARISON: DVT study right lower extremity 09/04/2020 TECHNIQUE: Ultrasound of the deep veins is performed from the hip to the calf with compression sonography and color and pulse Doppler assessment. Spectral analysis with color-flow imaging is performed. FINDINGS: There is normal venous compression and respiratory variation and augmented flow. The visualized common femoral vein, superficial femoral vein, profunda femoral vein, popliteal vein, and the trifurcation region shows no evidence of deep venous thrombosis. There is no significant popliteal fossa cyst. If the patient's symptoms persist, followup ultrasound in 5 days 7 days might be of value to exclude proximal propagation from a non-visualized calf vein. US/US venous duplex LE RT IMPRESSION: No DVT demonstrated in the right lower extremity. Dictated By:BALBINA NELSON MDSigned By:<Electronically signed by BALBINA NELSON MD in OV>10/09/20 7106 DD/ 1604TD/TT: Tuna Purse Seiner: EVANGELIST Discharge Plan Discharge Prescriptions: No Action atorvastatin 40 mg tablet 40 mg PO BEDTIME RF: 0 Tresiba FlexTouch U-100 100 unit/mL (3 mL) insulin pen subcut DAILY RF: 0 gabapentin 600 mg tablet 600 mg PO BEDTIME RF: 0 aspirin 81 mg tablet,delayed release (DR/EC) 81 mg PO DAILY RF: 0 metformin 1,000 mg tablet 1,000 mg PO BID RF: 0 lisinopril 5 mg tablet 5 mg PO DAILY RF: 0 Victoza 3-Chet 0.6 mg/0.1 mL (18 mg/3 mL) pen injector 1.8 mg subcut DAILY RF: 0 cholecalciferol (vitamin D3) 25 mcg (1,000 unit) tablet 25 mcg PO DAILY RF: 0 bisacodyl 5 mg tablet,delayed release (DR/EC) 5 mg PO BID RF: 0 polyethylene glycol 3350 17 gram Powder In Packet 17 g PO DAILY PRN (Reason: Constipation) Qty: 30 RF: 0 docusate sodium 100 mg Capsule 100 mg PO BID Qty: 60 RF: 0 lactulose 20 gram/30 mL Solution 30 ml PO DAILY PRN (Reason: Constipation) Qty: 480 RF: 0
[2020-10-09 17:36] VITALS: BP 112/66; PULSE 83; RESP 16; TEMP 37; O2SAT 99
[2020-10-09] MEDS: oxyCODONE HCl Immed Release 5 MG TABLET PO (17:57)
[2020-10-09 18:00] VITALS: BP 90/57; PULSE 90; RESP 16; TEMP 37; O2SAT 99
--- NOTE | 2020-10-09 18:00 | PC.NURSE ---
RECEIVED PATIENT AT 5PM
[2020-10-09 18:22] LABS: COVID-19 Test Negative (Negative); IDNOW Serial# 9DD0AD1C
[2020-10-09 18:25] LABS: Basophils Absolute Auto 0.1 X10*3/uL (0.0-0.2); Basophils Percent Auto 0.3 % (0-2); Eosinophils Absolute Auto 0.1 X10*3/uL (0.0-0.4); Eosinophils Percent Auto 0.8 % (0-4); Hematocrit 31.5 % (42-52); Imm Gran Abs Auto 0.28 X10*3/uL (0.00-0.03); Imm Gran Pct Auto 1.6 % (0.0-0.4); Lymphocytes Absolute Auto 1.4 X10*3/uL (1.2-4.9); MANUAL DIFF FLAG SCAN; Mean Corpuscular HGB Conc 34.9 g/dl (31.0-36.0); Mean Corpuscular Hemoglobin 32.1 pg (27.0-33.0); Mean Corpuscular Volume 91.8 fL (80-98); Mean Platelet Volume 9.9 fL (9.4-12.4); Monocytes Absolute Auto 1.5 X10*3/uL (0.1-1.2); Monocytes Percent Auto 8.7 % (2-11); Neutrophils Percent Auto 80.6 % (45-73); Platelet Count 344 X10*3/uL (160-400); Red Blood Count 3.43 X10*6/uL (4.60-5.80); Red Cell Distribution Width 11.8 % (11.0-16.0); SCAN SMEAR FLAG 1; White Blood Count 17.4 X10*3/uL (4.8-10.8)
[2020-10-09 18:26] LABS: INTERNATIONAL NORM RATIO 1.4 (0.9-1.1); Prothrombin Time 16.5 SEC (10.8-13.0)
[2020-10-09 18:29] LABS: Partial Thromboplastin Time 31.9 SEC (24.1-38.0)
[2020-10-09 18:44] LABS: SLIDE REVIEW VERIFIED
[2020-10-09 18:45] LABS: Lactic Acid 2.5 mmol/L (0.5-2.0)
[2020-10-09 18:47] LABS: Alanine Aminotransferase 61 U/L (0-40); Alkaline Phosphatase 126 U/L (39-117); Anion Gap 18 (12-20); Aspartate Amino Transferase 29 U/L (5-37); Bilirubin Total 0.6 mg/dL (0.0-1.0); Blood Urea Nitrogen 29 mg/dL (9-16); Calcium 8.8 mg/dL (8.4-10.2); Carbon Dioxide 23 mmol/L (22-29); Chloride 94 mmol/L (96-108); Creatinine Clr Calc Pharmacy 71.1; Estimated Glomerular Filt Rate 45; Glucose Random 302 mg/dL (60-115); Potassium 4.5 mmol/L (3.3-5.1); Sodium 130 mmol/L (135-145); Total Protein 6.7 g/dL (6.5-8.0)
[2020-10-09 20:00] VITALS: BP 90/54; PULSE 95; RESP 16; TEMP 36.6; O2SAT 99
[2020-10-09 20:22] LABS: Reflex Lactate? Lactic Acid Added
[2020-10-09 21:29] VITALS: BP 95/56; PULSE 82; RESP 16; TEMP 36.3; O2SAT 99
[2020-10-10] VITALS (13 sets, daily range): BP systolic 90–149; BP diastolic 48–70; PULSE 66–89; RESP 16–22; TEMP 36–36.9; O2SAT 95–99; BMI 36.7
[2020-10-10 00:21] LABS: ~Lactic Acid-LAB USE ONLY 2.6 mmol/L (0.5-2.0)
[2020-10-10 01:14] LABS: Glucose Urine UA 100 MG/DL (NEG); Leukocyte Esterase Urine NEG (NEG); Nitrite Urine NEG (NEG); Specific Gravity - Urine >= 1.030 (1.005-1.025); Urine Blood NEG (NEG); Urine Ketones NEG (NEG); Urine Protein TRACE MG/DL (NEG-TRACE)
[2020-10-10 01:17] LABS: Appearance Urine CLEAR; Color Urine DARK YELLOW
[2020-10-10 01:55] LABS: Reflex Lactate? 2 Y
[2020-10-10 02:00] LABS: Bacteria Urine TRACE /LPF; Hyaline Casts Urine >50 /LPF; RBC Urine 0-2 /HPF (0); Renal Epithelial Cells Urine 1+ /LPF; Squamous Epithelial Cell Urine TRACE /LPF
--- NOTE | 2020-10-10 02:49 | P.HPHOSP_ITS ---
History of Present Illness Date of Service: 10/10/20 Chief Complaint: Right Lower Extremity Pain 60-year-old male with a past medical history of hypertension, hyperlipidemia, diabetes, diabetic foot ulcer, peripheral neuropathy, MGUS, thrombocytopenia, history of right great toe amputation, KASSANDRA recent admission to the hospital for diabetic foot infection/MRSA bacteremia-discharged on 4 more weeks of daptomycin IV via PICC line placed on 09/09/2020; history of right great toe amputation on 09/10/2020 followed by revision on 09/18/2020; drug-induced thrombocytopenia- presented to the hospital today with a chief complaint of right lower extremity pain. Patient denies any fever chills cough. Denies any numbness tingling. Denies any headaches. Review of all other systems is negative except mentioned above ER course: Had right upper extremity venous duplex-negative for any blood clots. Patient continued on daptomycin via PICC line. ER team discussed with Dr. Figueroa who from vascular surgery for transmetatarsal amputation-> who recommended admission to Medicine. [facility], [facility] Medical History (Updated 10/09/20 @ 16:26 by Oksana Bautista) Amputated great toe of right foot Back pain Drug-induced thrombocytopenia Hyperlipidemia Hypertension IDDM (insulin dependent diabetes mellitus) MGUS (monoclonal gammopathy of unknown significance) Neck pain Peripheral neuropathy Psychiatric diagnosis Sleep apnea Surgical History H/O colonoscopy Hx of angioplasty Hx of appendectomy Hx of foot surgery Hx of tonsillectomy Hx of umbilical hernia repair Social History Household Members: None Housing: Apartment Alcohol intake: never Smoking Status: Never smoker Second Hand Smoke Exposure: No Use of substances other than those prescribed or required for medical reasons: No Advance Directives: Yes Advance Directives on File: Yes Advance Directives Date on File: 09/27/20 service: Yes Current occupational status: unemployed Meds Allergies Allergy/AdvReac Type Severity Reaction Status Date / Time vancomycin AdvReac Severe thrombocyto Verified 10/01/20 13:53 penia Active Medications: Current Medications Generic Name Dose Route Start Last Admin Trade Name Freq PRN Reason Stop Dose Admin Acetaminophen 650 mg 10/10/20 02:13 Acetaminophen Supp 650 Mg Supp.Rect AR Q6H PRN Pain, Mild (Pain Scale 1-3) Atorvastatin Calcium 40 mg 10/10/20 21:00 Atorvastatin Calcium 40 Mg Tablet PO BEDTIME [facility] Bisacodyl 5 mg 10/10/20 09:00 Bisacodyl 5 Mg Tablet.Dr PO BID [facility] Docusate Sodium 100 mg 10/10/20 09:00 Docusate Sodium 100 Mg Capsule PO BID [facility] Gabapentin 600 mg 10/10/20 21:00 Gabapentin 600 Mg Tablet PO BEDTIME [facility] Daptomycin 518.908 mg/ Sodium 60.3782 mls @ 100 mls/hr 10/10/20 03:00 Chloride IV Q24H [facility] Sodium Chloride 1,000 mls @ 75 mls/hr 10/10/20 02:30 Ns IVCONT .[id number] [facility] Insulin Human Lispro 0 unit 10/10/20 07:30 Insulin Lispro 100 Unit/Ml 3 Ml Vial SUBCUT QIDACHS [facility] Lactulose 20 gm 10/10/20 02:19 Lactulose 20 Gm/30 Ml Solution PO DAILY PRN Constipation Lisinopril 5 mg 10/10/20 09:00 Lisinopril 5 Mg Tablet PO DAILY [facility] Protocol Pharmacy Consult 1 each 10/09/20 16:38 Consult Rx Perform Med Rec MISCELLANE ONCE PRN Consult order Polyethylene Glycol 17 gm 10/10/20 02:19 Polyethylene Glycol 3350 17 Gm Powd.Pack PO DAILY PRN Constipation Sodium Chloride 3 ml 10/10/20 08:00 0.9 % Sodium Chloride Flush 3 Ml Syringe IVFLUSH QSHIFT [facility] Vitamin D 25 mcg 10/10/20 09:00 Cholecalciferol (Vitamin D3) 25 Mcg Tablet PO DAILY [facility] Home Medications Medication Instructions Recorded Confirmed Last Taken Type Victoza 3-Chet 1.8 mg SUBCUT DAILY 07/17/20 10/09/20 Unknown History aspirin 81 mg PO DAILY 07/17/20 10/09/20 Unknown History gabapentin 600 mg PO BEDTIME 07/17/20 10/09/20 Unknown History lisinopril 5 mg PO DAILY 07/17/20 10/09/20 Unknown History metformin 1,000 mg PO BID 07/17/20 10/09/20 Unknown History bisacodyl 5 mg PO BID 09/04/20 10/09/20 Unknown History cholecalciferol (vitamin D3) 25 mcg PO DAILY 09/04/20 10/09/20 Unknown History blood sugar diagnostic #10 ea 10/01/20 Unknown History fluoxetine 20 mg capsule 20 mg PO DAILY 10/01/20 10/09/20 Unknown History atorvastatin 40 mg PO BEDTIME 10/09/20 10/09/20 Unknown History insulin degludec [Tresiba SUBCUT DAILY 10/09/20 Unknown History FlexTouch U-100] Physical Exam Vital Signs and Narrative: Vital Signs: Last Vital Signs Temp 97.4 F 10/09/20 21:29 Pulse 82 10/09/20 21:29 Resp 16 10/09/20 21:29 BP 95/56 L 10/09/20 21:29 Pulse Ox 99 10/09/20 21:29 Body Mass Index 36.7 Gen: Appears be in no acute distress HEENT: NCAT, Moist mucosa. Pulmonary: Vesicular breath sounds, fair air entry CVS: Normal S1-S2 Abdomen: BS+, Soft, Nontender Extremities: Warm well perfused; dressing in place for the right foot. Neuro: Alert and awake. Results Labs CBC and Chem 7: 10/09/20 18:15 10/09/20 18:15 Labs: Laboratory Results - last 24 hr 10/09/20 10/09/20 10/09/20 17:59 18:15 18:15 MCV 91.8 MCH 32.1 MCHC 34.9 RDW 11.8 Plt Count 344 MPV 9.9 Immature Gran % (Auto) 1.6 H Neut % (Auto) 80.6 H Lymph % (Auto) 8.0 L Lares % (Auto) 8.7 Eos % (Auto) 0.8 Baso % (Auto) 0.3 Lymph # (Auto) 1.4 Lares # (Auto) 1.5 H Eos # (Auto) 0.1 Baso # (Auto) 0.1 Abs Immat Gran (auto) 0.28 H Absolute Neuts (auto) 14.0 H Absolute Nucleated RBC 0.000 Nucleated RBC % (auto) 0.0 Smear Tech's Comments VERIFIED PT 16.5 H INR 1.4 H APTT 31.9 Anion Gap Estim Creat Clear Calc Estimated GFR Random Glucose Lactic Acid Lactic Acid Fup @ 2Hr Calcium Total Bilirubin AST ALT Alkaline Phosphatase Total Protein Albumin Urine Color Urine Appearance Urine pH Ur Specific [place] Urine Protein Urine Glucose (UA) Urine Ketones Urine Blood Urine Nitrite Ur Leukocyte Esterase Urine RBC Urine WBC Ur Squamous Epith Cells Ur Renal Epithelial Cell Urine Bacteria Hyaline Casts Granular Casts COVID-19 (JOSE) Negative COVID-19 Clin Com See Note 10/09/20 10/09/20 10/09/20 18:15 18:16 23:09 MCV MCH MCHC RDW Plt Count MPV Immature Gran % (Auto) Neut % (Auto) Lymph % (Auto) Lares % (Auto) Eos % (Auto) Baso % (Auto) Lymph # (Auto) Lares # (Auto) Eos # (Auto) Baso # (Auto) Abs Immat Gran (auto) Absolute Neuts (auto) Absolute Nucleated RBC Nucleated RBC % (auto) Smear Tech's Comments PT INR APTT Anion Gap 18 Estim Creat Clear Calc 71.1 Estimated GFR 45 Random Glucose 302 H Lactic Acid 2.5 H* Lactic Acid Fup @ 2Hr 2.6 H* Calcium 8.8 D Total Bilirubin 0.6 AST 29 ALT 61 H Alkaline Phosphatase 126 H Total Protein 6.7 Albumin 3.0 L Urine Color Urine Appearance Urine pH Ur Specific [place] Urine Protein Urine Glucose (UA) Urine Ketones Urine Blood Urine Nitrite Ur Leukocyte Esterase Urine RBC Urine WBC Ur Squamous Epith Cells Ur Renal Epithelial Cell Urine Bacteria Hyaline Casts Granular Casts COVID-19 (JOSE) COVID-19 Clin Com 10/10/20 00:59 MCV MCH MCHC RDW Plt Count MPV Immature Gran % (Auto) Neut % (Auto) Lymph % (Auto) Lares % (Auto) Eos % (Auto) Baso % (Auto) Lymph # (Auto) Lares # (Auto) Eos # (Auto) Baso # (Auto) Abs Immat Gran (auto) Absolute Neuts (auto) Absolute Nucleated RBC Nucleated RBC % (auto) Smear Tech's Comments PT INR APTT Anion Gap Estim Creat Clear Calc Estimated GFR Random Glucose Lactic Acid Lactic Acid Fup @ 2Hr Calcium Total Bilirubin AST ALT Alkaline Phosphatase Total Protein Albumin Urine Color DARK YELLOW Urine Appearance CLEAR Urine pH 5.0 Ur Specific [place] >= 1.030 H Urine Protein TRACE Urine Glucose (UA) 100 H Urine Ketones NEG Urine Blood NEG Urine Nitrite NEG Ur Leukocyte Esterase NEG Urine RBC 0-2 Urine WBC 1-4 Ur Squamous Epith Cells TRACE Ur Renal Epithelial Cell 1+ Urine Bacteria TRACE Hyaline Casts >50 Granular Casts 1-4 COVID-19 (JOSE) COVID-19 Clin Com Imaging Radiologist's Impressions: Impressions Duplex Scan Lower Extremity Artery 10/09/20 16:04 IMPRESSION: There is no evidence of any hemodynamically significant lower extremity arterial disease by pressure, waveform or duplex Doppler criteria at rest. 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 Venous Duplex 10/09/20 16:04 IMPRESSION: No DVT demonstrated in the right lower extremity. Assessment and Plan (1) Diabetic foot ulcer: Qualifiers: Diabetes mellitus type: type 2 Diabetic foot ulcer location: toe Laterality: right Non-pressure ulcer stage: unspecified non-pressure ulcer stage Qualified Code(s): E11.621 - Type 2 diabetes mellitus with foot ulcer; L97.519 - Non-pressure chronic ulcer of other part of right foot with unspecifie d severity Status: Acute 60-year-old male with a past medical history of hypertension, hyperlipidemia, diabetes, diabetic foot ulcer, recent history of right great toe amputation; history of peripheral vascular disease status post angioplasty; on daptomycin for right foot infection/diabetic foot ulcer/MRSA bacteremia via PICC line presented with right lower extremity pain. Right lower extremity pain: Duplex negative for any blood clots. Pain control. Diabetic foot ulcer: Recent history of MRSA bacteremia. Has dressing in place for right foot. Patient had recent right great toe amputation in August of 2020. Vascular surgery mentioned that patient is a candidate for transmetatarsal amputation and will do the procedure during this admission. Continue daptomycin via PICC line. He claimed was placed on 09/09/2020. PICC line site appears clean. ID consulted Diabetes: Insulin sliding scale. Monitor fingerstick glucose. Titrate insulins as needed. History of hyperlipidemia: Hold statins given patient is on daptomycin. History of thrombocytopenia: Currently platelets normalized. Was presumed to be secondary to vancomycin. Which has been discontinued. History of MGUS: Patient to follow-up as outpatient in Hematology-Oncology Clinic. DVT prophylaxis: Cannot use SCD boots given foot infection. Holding pharmacologic anticoagulation in anticipation for procedure. Code status: Full code she
[2020-10-10] MEDS: 0.9 % Sodium Chloride 1,000 ML 75 ML IVCONT (03:58)
[2020-10-10 04:29] LABS: Glucose, Whole Blood 302 mg/dL (60-115)
[2020-10-10 06:31] LABS: ~Lactic Acid-LAB USE ONLY 0.9 mmol/L (0.5-2.0)
--- NOTE | 2020-10-10 07:20 | PC.NURSE ---
report taken from christine kay pt here for chronic foot wounds, admitted for possible foot procedure today. per previous shift rn, pt may have procedure this morning and pt has been npo since midnight. pt appears to be sleeping at this time, nad, rr even/unlabored. maintainance fluids running at this time. ordered daptomycin being mixed by pharmacy after permission from infectious disease.
[2020-10-10 09:13] LABS: MANUAL DIFF FLAG NO
[2020-10-10 09:26] LABS: Basophils Percent Auto 0.2 % (0-2); Eosinophils Absolute Auto 0.3 X10*3/uL (0.0-0.4); Hematocrit 30.8 % (42-52); Hemoglobin 10.5 g/dl (14.0-18.0); Imm Gran Abs Auto 0.22 X10*3/uL (0.00-0.03); Imm Gran Pct Auto 1.8 % (0.0-0.4); Lymphocytes Absolute Auto 1.7 X10*3/uL (1.2-4.9); Lymphocytes Percent Auto 13.9 % (20-40); Mean Corpuscular HGB Conc 34.1 g/dl (31.0-36.0); Mean Corpuscular Hemoglobin 31.7 pg (27.0-33.0); Mean Corpuscular Volume 93.1 fL (80-98); Mean Platelet Volume 9.7 fL (9.4-12.4); Monocytes Absolute Auto 1.1 X10*3/uL (0.1-1.2); Monocytes Percent Auto 8.5 % (2-11); Neutrophils Absolute Auto 9.1 X10*3/uL (2.0-8.3); Neutrophils Percent Auto 73.6 % (45-73); Platelet Count 354 X10*3/uL (160-400); Red Blood Count 3.31 X10*6/uL (4.60-5.80); Red Cell Distribution Width 11.9 % (11.0-16.0); White Blood Count 12.3 X10*3/uL (4.8-10.8)
[2020-10-10 09:32] LABS: INTERNATIONAL NORM RATIO 1.4 (0.9-1.1); Prothrombin Time 16.4 SEC (10.8-13.0)
[2020-10-10 09:44] LABS: Anion Gap 14 (12-20); Blood Urea Nitrogen 30 mg/dL (9-16); Calcium 8.3 mg/dL (8.4-10.2); Carbon Dioxide 26 mmol/L (22-29); Chloride 96 mmol/L (96-108); Estimated Glomerular Filt Rate 57; Glucose Random 267 mg/dL (60-115); Potassium 5.1 mmol/L (3.3-5.1); Sodium 131 mmol/L (135-145)
[2020-10-10] MEDS: Lactated Ringers 1,000 ML 100 ML IVCONT ×2 (10:10→19:56)
[2020-10-10] MEDS: DAPTOmycin 500 MG in 0.9 % Sodium Chloride 50 ML 100 MG IV (10:10)
--- NOTE | 2020-10-10 12:07 | PC.NURSE ---
pt appears to be sleeping in bed, asking for warm blanket. continues to be npo for possible vascular procedure.
[2020-10-10 12:14] LABS: Glucose, Whole Blood 220 mg/dL (60-115)
--- NOTE | 2020-10-10 12:52 | PC.NURSE ---
REPORT GIVEN TO S3 FAITH [employer] ENGINEERFAITH GARRETT. PT TO GO TO SHORT STAY SURGERY AT 1430
--- NOTE | 2020-10-10 12:52 | MHC.CM.PN ---
Attempted to meet with patient in regards to discharge planning. Patient currently sleeping. Patient was discharged from [facility] on 09/26 with [facility] and infusion services. Referral made to [facility] via [facility]. Will attempt to meet with patient again. Continue to monitor for d/c needs.
--- NOTE | 2020-10-10 13:33 | PM.CNGS ---
History of Present Illness Consult details Consult date: 10/10/20 Reason for consult: wound care Narrative: 60-year-old noncompliant gentleman presents to the emergency room for nonhealing great toe ulcer. It had originally had a great toe amputation and subsequently went on to ray amputation. He continues to be nonhealing. It was actually scheduled for transmetatarsal amputation but he 8 the morning of the surgery. Was subsequently canceled. It appears to have progressed. He was requested to go to the emergency room. He now presents to us for vascular evaluation. Review of Systems Review of Systems: Yes all other systems are reviewed and are negative Constitutional: Constitutional: Reports no additional constitutional complaints ENT: Reports Normal hearing present Cardiovascular: Cardiovascular: Denies chest pain, Denies chest pain at rest, Denies chest pain with activity and Denies pedal edema Respiratory: Respiratory: Denies cough Gastrointestinal: Gastrointestinal: Denies abdominal pain Musculoskeletal: Musculoskeletal: Denies abnormal gait, Denies muscle cramps and Denies radiating pain into limb Integumentary/Breasts: Skin/Breast: Denies skin ulcer and Denies wounds Neurologic: Reports Normal hearing present and Denies abnormal gait Psychiatric: Psychiatric: Reports no additional psychiatric complaints PMFSH Past Medical History Medical History Amputated great toe of right foot Back pain Drug-induced thrombocytopenia Hyperlipidemia Hypertension IDDM (insulin dependent diabetes mellitus) MGUS (monoclonal gammopathy of unknown significance) Neck pain Peripheral neuropathy Psychiatric diagnosis Sleep apnea Surgical History Surgical History H/O colonoscopy Hx of angioplasty Hx of appendectomy Hx of foot surgery Hx of tonsillectomy Hx of umbilical hernia repair Social History Social History Household Members: None Housing: Apartment Alcohol intake: never Smoking Status: Never smoker Second Hand Smoke Exposure: No Advance Directives: No Advance Directives Information Provided: No Advance Directives Date on File: 09/27/20 service: Yes Current occupational status: unemployed Meds Allergies Allergy/AdvReac Type Severity Reaction Status Date / Time vancomycin AdvReac Severe thrombocyto Verified 10/01/20 13:53 penia Active Medications: Current Medications Generic Name Dose Route Start Last Admin Trade Name Daronq PRN Reason Stop Dose Admin Acetaminophen 650 mg 10/10/20 02:13 Acetaminophen Supp 650 Mg Supp.Rect WI Q6H PRN Pain, Mild (Pain Scale 1-3) Bisacodyl 5 mg 10/10/20 09:00 10/10/20 09:02 Bisacodyl 5 Mg Tablet.Dr PO Not Given BID TJ Docusate Sodium 100 mg 10/10/20 09:00 10/10/20 09:02 Docusate Sodium 100 Mg Capsule PO Not Given BID [facility] Gabapentin 600 mg 10/10/20 21:00 Gabapentin 600 Mg Tablet PO BEDTIME TJ Sodium Chloride 1,000 mls @ 75 mls/hr 10/10/20 02:30 10/10/20 03:58 Ns IVCONT 75 mls/hr .[id number] TJ Administration Daptomycin 500 mg/ Sodium 60 mls @ 100 mls/hr 10/10/20 10:00 10/10/20 11:13 Chloride IV Infused Q24H TJ Infusion Lactated Ringer's 1,000 mls @ 100 mls/hr 10/10/20 09:15 10/10/20 10:10 Lr IVCONT 100 mls/hr .Q10H TJ Administration Insulin Human Lispro 0 unit 10/10/20 07:30 10/10/20 12:15 Insulin Lispro 100 Unit/Ml 3 Ml Vial SUBCUT Not Given QIDACHS [facility] Lactulose 20 gm 10/10/20 02:19 Lactulose 20 Gm/30 Ml Solution PO DAILY PRN Constipation Oxycodone HCl 5 mg 10/10/20 05:53 Oxycodone Hcl Immed Release 5 Mg Tablet PO Q6H PRN [facility] Consult 1 each 10/09/20 16:38 Consult Rx Perform Med Rec MISCELLANE ONCE PRN Consult order Polyethylene Glycol 17 gm 10/10/20 02:19 Polyethylene Glycol 3350 17 Gm Powd.Pack PO DAILY PRN Constipation Sodium Chloride 3 ml 10/10/20 08:00 10/10/20 08:39 0.9 % Sodium Chloride Flush 3 Ml Syringe IVFLUSH Not Given QSHIFT [facility] Vitamin D 25 mcg 10/10/20 09:00 10/10/20 09:02 Cholecalciferol (Vitamin D3) 25 Mcg Tablet PO Not Given DAILY [facility] Home Medications Medication Instructions Recorded Confirmed Last Taken Type Victoza 3-Chet 1.8 mg SUBCUT DAILY 07/17/20 10/09/20 Unknown History aspirin 81 mg PO DAILY 07/17/20 10/09/20 Unknown History gabapentin 600 mg PO BEDTIME 07/17/20 10/09/20 Unknown History lisinopril 5 mg PO DAILY 07/17/20 10/09/20 Unknown History metformin 1,000 mg PO BID 07/17/20 10/09/20 Unknown History bisacodyl 5 mg PO BID 09/04/20 10/09/20 Unknown History cholecalciferol (vitamin D3) 25 mcg PO DAILY 09/04/20 10/09/20 Unknown History blood sugar diagnostic #10 ea 10/01/20 Unknown History fluoxetine 20 mg capsule 20 mg PO DAILY 10/01/20 10/09/20 Unknown History atorvastatin 40 mg PO BEDTIME 10/09/20 10/09/20 Unknown History insulin degludec [Tresiba SUBCUT DAILY 10/09/20 Unknown History FlexTouch U-100] Physical Exam Vital Signs: Vital Signs: Last Vital Signs Temp 98.4 F 10/10/20 04:55 Pulse 81 10/10/20 04:55 Resp 16 10/10/20 04:55 BP 94/52 L 10/10/20 04:55 Pulse Ox 97 10/10/20 04:55 Body Mass Index 36.7 Const: General: cooperative, healthy appearing and comfortable Orientation/consciousness: oriented to person, oriented to place and oriented to time HENMT: Head: Yes normal to inspection Neck: Neck: Yes normal visual inspection Carotids: no bruits Chest: Chest palpation & inspection: normal inspection of the chest Resp: Effort & Inspection: normal respiratory effort and able to speak in complete sentences Auscultation: clear to auscultation bilaterally, no crackles, no rales, no rhonchi and no wheezes Cardio: Rate: regular rate Rhythm: regular rhythm Heart sounds: S1 normal heart sound present and S2 normal heart sound present Bruits: no carotid bruits Peripheral pulses: Peripheral pulses 2+ throughout GI: Inspection: Yes normal to inspection Skin: Wounds: wounds noted (Nonhealing right great toe) Hair: normal Neuro: General: oriented to person, oriented to place and oriented to time Cranial nerves: Yes CN's II-XII intact bilaterally and Yes Normal hearing present Cognition (Neuro): normal cognition Motor exam (neuro): 5/5 motor strength present throughout Extrem: Other: venous exam: No significant superficial varicosities or spider telangiectasias, minimal edema General: No clubbing, No cyanosis and No edema Psych: Appearance: grossly normal Mental Status: mental status grossly normal Speech and movement: Normal speech and movement present Results Labs Result diagrams: 10/10/20 09:03 10/10/20 09:03 Labs: Abnormal lab results 10/09/20 10/09/20 10/09/20 Range/Units 18:15 18:15 18:15 WBC 17.4 H (4.8-10.8) X10*3/uL RBC 3.43 L (4.60-5.80) X10*6/uL Hgb 11.0 L (14.0-18.0) g/dl Hct 31.5 L (42-52) % Immature Gran % (Auto) 1.6 H (0.0-0.4) % Neut % (Auto) 80.6 H (45-73) % Lymph % (Auto) 8.0 L (20-40) % [place] # (Auto) 1.5 H (0.1-1.2) X10*3/uL Abs Immat Gran (auto) 0.28 H (0.00-0.03) X10*3/uL Absolute Neuts (auto) 14.0 H (2.0-8.3) X10*3/uL PT 16.5 H (10.8-13.0) SEC INR 1.4 H (0.9-1.1) Sodium 130 L (135-145) mmol/L Chloride 94 L (96-108) mmol/L BUN 29 H (9-16) mg/dL Creatinine 1.56 H (0.5-1.4) mg/dL POC Glucose (60-115) mg/dL Random Glucose 302 H (60-115) mg/dL Lactic Acid (0.5-2.0) mmol/L Lactic Acid Fup @ 2Hr (0.5-2.0) mmol/L Calcium (8.4-10.2) mg/dL ALT 61 H (0-40) U/L Alkaline Phosphatase 126 H (39-117) U/L Albumin 3.0 L (3.5-5.0) g/dL Ur Specific [place] (1.005-1.025) Urine Glucose (UA) (NEG) MG/DL 10/09/20 10/09/20 10/10/20 Range/Units 18:16 23:09 00:59 WBC (4.8-10.8) X10*3/uL RBC (4.60-5.80) X10*6/uL Hgb (14.0-18.0) g/dl Hct (42-52) % Immature Gran % (Auto) (0.0-0.4) % Neut % (Auto) (45-73) % Lymph % (Auto) (20-40) % [place] # (Auto) (0.1-1.2) X10*3/uL Abs Immat Gran (auto) (0.00-0.03) X10*3/uL Absolute Neuts (auto) (2.0-8.3) X10*3/uL PT (10.8-13.0) SEC INR (0.9-1.1) Sodium (135-145) mmol/L Chloride (96-108) mmol/L BUN (9-16) mg/dL Creatinine (0.5-1.4) mg/dL POC Glucose (60-115) mg/dL Random Glucose (60-115) mg/dL Lactic Acid 2.5 H* (0.5-2.0) mmol/L Lactic Acid Fup @ 2Hr 2.6 H* (0.5-2.0) mmol/L Calcium (8.4-10.2) mg/dL ALT (0-40) U/L Alkaline Phosphatase (39-117) U/L Albumin (3.5-5.0) g/dL Ur Specific [place] >= 1.030 H (1.005-1.025) Urine Glucose (UA) 100 H (NEG) MG/DL 10/10/20 10/10/20 10/10/20 Range/Units 04:17 09:03 09:03 WBC 12.3 H (4.8-10.8) X10*3/uL RBC 3.31 L (4.60-5.80) X10*6/uL Hgb 10.5 L (14.0-18.0) g/dl Hct 30.8 L (42-52) % Immature Gran % (Auto) 1.8 H (0.0-0.4) % Neut % (Auto) 73.6 H (45-73) % Lymph % (Auto) 13.9 L (20-40) % [place] # (Auto) (0.1-1.2) X10*3/uL Abs Immat Gran (auto) 0.22 H (0.00-0.03) X10*3/uL Absolute Neuts (auto) 9.1 H (2.0-8.3) X10*3/uL PT 16.4 H (10.8-13.0) SEC INR 1.4 H (0.9-1.1) Sodium (135-145) mmol/L Chloride (96-108) mmol/L BUN (9-16) mg/dL Creatinine (0.5-1.4) mg/dL POC Glucose 302 H (60-115) mg/dL Random Glucose (60-115) mg/dL Lactic Acid (0.5-2.0) mmol/L Lactic Acid Fup @ 2Hr (0.5-2.0) mmol/L Calcium (8.4-10.2) mg/dL ALT (0-40) U/L Alkaline Phosphatase (39-117) U/L Albumin (3.5-5.0) g/dL Ur Specific [place] (1.005-1.025) Urine Glucose (UA) (NEG) MG/DL 10/10/20 10/10/20 Range/Units 09:03 12:10 WBC (4.8-10.8) X10*3/uL RBC (4.60-5.80) X10*6/uL Hgb (14.0-18.0) g/dl Hct (42-52) % Immature Gran % (Auto) (0.0-0.4) % Neut % (Auto) (45-73) % Lymph % (Auto) (20-40) % [place] # (Auto) (0.1-1.2) X10*3/uL Abs Immat Gran (auto) (0.00-0.03) X10*3/uL Absolute Neuts (auto) (2.0-8.3) X10*3/uL PT (10.8-13.0) SEC INR (0.9-1.1) Sodium 131 L (135-145) mmol/L Chloride (96-108) mmol/L BUN 30 H (9-16) mg/dL Creatinine (0.5-1.4) mg/dL POC Glucose 220 H (60-115) mg/dL Random Glucose 267 H (60-115) mg/dL Lactic Acid (0.5-2.0) mmol/L Lactic Acid Fup @ 2Hr (0.5-2.0) mmol/L Calcium 8.3 L (8.4-10.2) mg/dL ALT (0-40) U/L Alkaline Phosphatase (39-117) U/L Albumin (3.5-5.0) g/dL Ur Specific [place] (1.005-1.025) Urine Glucose (UA) (NEG) MG/DL Short CBC 10/09/20 10/10/20 Range/Units 18:15 09:03 WBC 17.4 H 12.3 H (4.8-10.8) X10*3/uL Hgb 11.0 L 10.5 L (14.0-18.0) g/dl Hct 31.5 L 30.8 L (42-52) % Plt Count 344 354 (160-400) X10*3/uL BMP 10/09/20 10/10/20 18:15 09:03 Sodium 130 L 131 L Potassium 4.5 5.1 Chloride 94 L 96 Carbon Dioxide 23 26 BUN 29 H 30 H Creatinine 1.56 H 1.29 Calcium 8.8 D 8.3 L Liver Function 10/09/20 Range/Units 18:15 Total Bilirubin 0.6 (0.0-1.0) mg/dL AST 29 (5-37) U/L ALT 61 H (0-40) U/L Alkaline Phosphatase 126 H (39-117) U/L Albumin 3.0 L (3.5-5.0) g/dL Urine 10/10/20 Range/Units 00:59 Urine Color DARK YELLOW Urine Appearance CLEAR Urine pH 5.0 (5.0-8.0) Ur Specific [place] >= 1.030 H (1.005-1.025) Urine Protein TRACE (NEG-TRACE) MG/DL Urine Glucose (UA) 100 H (NEG) MG/DL All other labs normal. Assessment and Plan (1) Diabetic foot ulcer: Qualifiers: Diabetic foot ulcer location: toe Diabetes mellitus type: type 2 Laterality: right Non-pressure ulcer stage: unspecified non-pressure ulcer stage Qualified Code(s): E11.621 - Type 2 diabetes mellitus with foot ulcer; L97.519 - Non-pressure chronic ulcer of other part of right foot with unspecified severity Status: Acute Patient has nonhealing right great toe amputation site. Continues to be nonhealing. I believe at this point the best course of action is a transmetatarsal amputation of the right leg.. This was discussed in detail with the patient. He is in agreement. He is NPO and will schedule him later this afternoon. Thank you for allowing us to assist in his care. If there are any questions or concerns please do not hesitate to contact us.
--- NOTE | 2020-10-10 14:36 | HO.PM.IMPN ---
Subjective Subjective Date of Service: 10/11/20 <Leidy Weeks MD - Last Filed: 10/11/20 07:42> 10/10/20 <Chaparrita Anti - Last Filed: 10/10/20 16:17> Interval History: right lower ext pain , groin pain <Leidy Weeks MD - Last Filed: 10/11/20 07:42> Review of Systems denies any chest pain or shortness of breath or abdominal pain or fever chills. ch back pain says due to arthritis <Leidy Weeks MD - Last Filed: 10/11/20 07:42> Physical Exam Vital Signs: Vital Signs: Last Vital Signs Temp 98.4 F 10/10/20 04:55 Pulse 81 10/10/20 04:55 Resp 16 10/10/20 04:55 BP 94/52 L 10/10/20 04:55 Pulse Ox 97 10/10/20 04:55 Body Mass Index 36.7 <Leidy Weeks MD - Last Filed: 10/11/20 07:42> Physical exam: Constitutional: Not in acute distress . Cvs: rrr, [id number] , no murmur res: clear to auscultation ,no rhonchii or wheezing abd: no rebound or guarding ,nt, bs present. ext pulses present , no cyanosis neuro: axo3 , nonfocal. <Leiyd Weeks MD - Last Filed: 10/11/20 07:42> Objective Data Current Medications Generic Name Dose Route Start Last Admin Trade Name Freq PRN Reason Stop Dose Admin Acetaminophen 650 mg 10/10/20 02:13 Acetaminophen Supp 650 Mg Supp.Rect WI Q6H PRN Pain, Mild (Pain Scale 1-3) Bisacodyl 5 mg 10/10/20 09:00 10/10/20 09:02 Bisacodyl 5 Mg Tablet. PO Not Given BID TJ Docusate Sodium 100 mg 10/10/20 09:00 10/10/20 09:02 Docusate Sodium 100 Mg Capsule PO Not Given BID TJ Gabapentin 600 mg 10/10/20 21:00 Gabapentin 600 Mg Tablet PO BEDTIME TJ Sodium Chloride 1,000 mls @ 75 mls/hr 10/10/20 02:30 10/10/20 03:58 Ns IVCONT 75 mls/hr .[id number] TJ Administration Daptomycin 500 mg/ Sodium 60 mls @ 100 mls/hr 10/10/20 10:00 10/10/20 11:13 Chloride IV Infused Q24H TJ Infusion Lactated Ringer's 1,000 mls @ 100 mls/hr 10/10/20 09:15 10/10/20 10:10 Lr IVCONT 100 mls/hr .Q10H TJ Administration Insulin Human Lispro 0 unit 10/10/20 07:30 10/10/20 12:15 Insulin Lispro 100 Unit/Ml 3 Ml Vial SUBCUT Not Given QIDACHS [facility] Lactulose 20 gm 10/10/20 02:19 Lactulose 20 Gm/30 Ml Solution PO DAILY PRN Constipation Oxycodone HCl 5 mg 10/10/20 05:53 Oxycodone Hcl Immed Release 5 Mg Tablet PO Q6H PRN [facility] Consult 1 each 10/09/20 16:38 Consult Rx Perform Med Rec MISCELLANE ONCE PRN Consult order Polyethylene Glycol 17 gm 10/10/20 02:19 Polyethylene Glycol 3350 17 Gm Powd.Pack PO DAILY PRN Constipation Sodium Chloride 3 ml 10/10/20 08:00 10/10/20 08:39 0.9 % Sodium Chloride Flush 3 Ml Syringe IVFLUSH Not Given QSHIFT [facility] Vitamin D 25 mcg 10/10/20 09:00 10/10/20 09:02 Cholecalciferol (Vitamin D3) 25 Mcg Tablet PO Not Given DAILY [facility] <Leidy Weeks MD - Last Filed: 10/11/20 07:42> Labs CBC & Chem 7: : 10/10/20 09:03 10/10/20 09:03 <Leidy Weeks MD - Last Filed: 10/11/20 07:42> Assessment and Plan (1) MRSA bacteremia: Status: Acute <Leidy Weeks MD - Last Filed: 10/11/20 07:42> (2) Thrombocytopenia: Status: Acute <Leidy Weeks MD - Last Filed: 10/11/20 07:42> Assessment and Plan: 60-year-old male with a past medical history of hypertension, hyperlipidemia, diabetes, diabetic foot ulcer, recent history of right great toe amputation; history of peripheral vascular disease status post angioplasty; on daptomycin for right foot infection/diabetic foot ulcer/MRSA bacteremia via PICC line presented with right lower extremity pain. 1.Right lower extremity pain: Duplex negative for any blood clots. Pain control. ? enlarged lymph -Prominent groin nodes are noted measuring 1.4-1.6 cm. pain control 2.Diabetic foot ulcer: Recent history of MRSA bacteremia. Has dressing in place for right foot. Patient had recent right great toe amputation in August of 2020. Vascular surgery mentioned that patient is a candidate for transmetatarsal amputation and will do the procedure during this admission. Continue daptomycin via PICC line. He claimed was placed on 09/09/2020. PICC line site appears clean. ID and vascular following-plan for vascular surgery today 3.Diabetes: Insulin sliding scale. Monitor fingerstick glucose. Titrate insulins as needed. 4.History of hyperlipidemia: Hold statins given patient is on daptomycin. 5.History of thrombocytopenia: Currently platelets normalized. Was presumed to be secondary to vancomycin. Which has been discontinued. 6.History of MGUS: Patient to follow-up as outpatient in Hematology-Oncology Clinic. <Leidy Weeks MD - Last Filed: 10/11/20 07:42>
[2020-10-10] MEDS: oxyCODONE HCl Immed Release 5 MG TABLET PO (14:45)
[2020-10-10 15:16] LABS: Glucose, Whole Blood 193 mg/dL (60-115)
--- NOTE | 2020-10-10 15:21 | P.CONAN_ITS ---
[facility] Active Problems Active Problems: All Active Problems (Updated 10/10/20 @ 14:15 by Cele daily) Diabetic foot ulcer (Acute) Thrombocytopenia (Acute) MRSA bacteremia (Acute) MGUS (monoclonal gammopathy of unknown significance) (Acute) Drug-induced thrombocytopenia (Acute) Hyperlipidemia (Acute) Hypertension (Acute) Past Medical History Medical History Amputated great toe of right foot Back pain Drug-induced thrombocytopenia Hyperlipidemia Hypertension IDDM (insulin dependent diabetes mellitus) MGUS (monoclonal gammopathy of unknown significance) Neck pain Peripheral neuropathy Psychiatric diagnosis Sleep apnea Surgical History Surgical History H/O colonoscopy Hx of angioplasty Hx of appendectomy Hx of foot surgery Hx of tonsillectomy Hx of umbilical hernia repair Social History Social History Household Members: None Housing: Apartment Alcohol intake: never Smoking Status: Never smoker Second Hand Smoke Exposure: No Advance Directives: No Advance Directives Information Provided: No Advance Directives Date on File: 09/27/20 service: Yes Current occupational status: unemployed Meds Allergies Allergy/AdvReac Type Severity Reaction Status Date / Time vancomycin AdvReac Severe thrombocyto Verified 10/01/20 13:53 penia Active Medications: Current Medications Generic Name Dose Route Start Last Admin Trade Name Freq PRN Reason Stop Dose Admin Acetaminophen 650 mg 10/10/20 02:13 Acetaminophen Supp 650 Mg Supp.Rect [place] Q6H PRN Pain, Mild (Pain Scale 1-3) Bisacodyl 5 mg 10/10/20 09:00 10/10/20 09:02 Bisacodyl 5 Mg Tablet.Dr PO Not Given BID TJ Docusate Sodium 100 mg 10/10/20 09:00 10/10/20 09:02 Docusate Sodium 100 Mg Capsule PO Not Given BID TJ Gabapentin 600 mg 10/10/20 21:00 Gabapentin 600 Mg Tablet PO BEDTIME TJ Sodium Chloride 1,000 mls @ 75 mls/hr 10/10/20 02:30 10/10/20 14:51 Ns IVCONT Infused .[id number] TJ Infusion Daptomycin 500 mg/ Sodium 60 mls @ 100 mls/hr 10/10/20 10:00 10/10/20 11:13 Chloride IV Infused Q24H [facility] Infusion Lactated Ringer's 1,000 mls @ 100 mls/hr 10/10/20 09:15 10/10/20 14:51 Lr IVCONT Infused .Q10H [facility] Infusion Insulin Human Lispro 0 unit 10/10/20 07:30 10/10/20 12:15 Insulin Lispro 100 Unit/Ml 3 Ml Vial SUBCUT Not Given QIDACHS [facility] Lactulose 20 gm 10/10/20 02:19 Lactulose 20 Gm/30 Ml Solution PO DAILY PRN Constipation Oxycodone HCl 5 mg 10/10/20 05:53 Oxycodone Hcl Immed Release 5 Mg Tablet PO Q6H PRN [facility] Pharmacy Consult 1 each 10/09/20 16:38 Consult Rx Perform Med Rec MISCELLANE ONCE PRN Consult order Polyethylene Glycol 17 gm 10/10/20 02:19 Polyethylene Glycol 3350 17 Gm Powd.Pack PO DAILY PRN Constipation Sodium Chloride 3 ml 10/10/20 08:00 10/10/20 08:39 0.9 % Sodium Chloride Flush 3 Ml Syringe IVFLUSH Not Given QSHIFT [facility] Vitamin D 25 mcg 10/10/20 09:00 10/10/20 09:02 Cholecalciferol (Vitamin D3) 25 Mcg Tablet PO Not Given DAILY [facility] Home Medications Medication Instructions Recorded Confirmed Last Taken Type Victoza 3-Chet 1.8 mg SUBCUT DAILY 07/17/20 10/09/20 Unknown History aspirin 81 mg PO DAILY 07/17/20 10/09/20 Unknown History gabapentin 600 mg PO BEDTIME 07/17/20 10/09/20 Unknown History lisinopril 5 mg PO DAILY 07/17/20 10/09/20 Unknown History metformin 1,000 mg PO BID 07/17/20 10/09/20 Unknown History bisacodyl 5 mg PO BID 09/04/20 10/09/20 Unknown History cholecalciferol (vitamin D3) 25 mcg PO DAILY 09/04/20 10/09/20 Unknown History blood sugar diagnostic #10 ea 10/01/20 Unknown History fluoxetine 20 mg capsule 20 mg PO DAILY 10/01/20 10/09/20 Unknown History atorvastatin 40 mg PO BEDTIME 10/09/20 10/09/20 Unknown History insulin degludec [Tresiba SUBCUT DAILY 10/09/20 Unknown History FlexTouch U-100] Exam Exam Date and Time: October 10, 2020 1521 Height,Weight and Vital Signs: Height 6 ft 2 in Weight 129.727 kg Last Vital Signs Temp 96.8 F 10/10/20 14:39 Pulse 80 10/10/20 14:39 Resp 16 10/10/20 14:39 BP 110/62 10/10/20 14:39 Pulse Ox 98 10/10/20 14:39 Pertinent Lab Results Pertinent Lab Results: Laboratory Tests 10/09/20 10/09/20 10/09/20 17:59 18:15 18:15 WBC 17.4 H RBC 3.43 L Hgb 11.0 L Hct 31.5 L MCV 91.8 MCH 32.1 MCHC 34.9 RDW 11.8 Plt Count 344 MPV 9.9 Immature Gran % (Auto) 1.6 H Neut % (Auto) 80.6 H Lymph % (Auto) 8.0 L Rains % (Auto) 8.7 Eos % (Auto) 0.8 Baso % (Auto) 0.3 Lymph # (Auto) 1.4 Rains # (Auto) 1.5 H Eos # (Auto) 0.1 Baso # (Auto) 0.1 Abs Immat Gran (auto) 0.28 H Absolute Neuts (auto) 14.0 H Absolute Nucleated RBC 0.000 Nucleated RBC % (auto) 0.0 Smear Tech's Comments VERIFIED PT 16.5 H INR 1.4 H APTT 31.9 Sodium Potassium Chloride Carbon Dioxide Anion Gap BUN Creatinine Estim Creat Clear Calc Estimated GFR POC Glucose Random Glucose Lactic Acid Lactic Acid Fup @ 2Hr Lactic Acid Fup @ 4Hr Calcium Total Bilirubin AST ALT Alkaline Phosphatase Total Protein Albumin Urine Color Urine Appearance Urine pH Ur Specific [place] Urine Protein Urine Glucose (UA) Urine Ketones Urine Blood Urine Nitrite Ur Leukocyte Esterase Urine RBC Urine WBC Ur Squamous Epith Cells Ur Renal Epithelial Cell Urine Bacteria Hyaline Casts Granular Casts COVID-19 (JOSE) Negative COVID-19 Clin Com See Note 10/09/20 10/09/20 10/09/20 18:15 18:16 23:09 WBC RBC Hgb Hct MCV MCH MCHC RDW Plt Count MPV Immature Gran % (Auto) Neut % (Auto) Lymph % (Auto) Rains % (Auto) Eos % (Auto) Baso % (Auto) Lymph # (Auto) Rains # (Auto) Eos # (Auto) Baso # (Auto) Abs Immat Gran (auto) Absolute Neuts (auto) Absolute Nucleated RBC Nucleated RBC % (auto) Smear Tech's Comments PT INR APTT Sodium 130 L Potassium 4.5 Chloride 94 L Carbon Dioxide 23 Anion Gap 18 BUN 29 H Creatinine 1.56 H Estim Creat Clear Calc 71.1 Estimated GFR 45 POC Glucose Random Glucose 302 H Lactic Acid 2.5 H* Lactic Acid Fup @ 2Hr 2.6 H* Lactic Acid Fup @ 4Hr Calcium 8.8 D Total Bilirubin 0.6 AST 29 ALT 61 H Alkaline Phosphatase 126 H Total Protein 6.7 Albumin 3.0 L Urine Color Urine Appearance Urine pH Ur Specific [place] Urine Protein Urine Glucose (UA) Urine Ketones Urine Blood Urine Nitrite Ur Leukocyte Esterase Urine RBC Urine WBC Ur Squamous Epith Cells Ur Renal Epithelial Cell Urine Bacteria Hyaline Casts Granular Casts COVID-19 (JOSE) COVID-19 [employer] [facility] 10/10/20 10/10/20 10/10/20 00:59 04:17 05:58 WBC RBC Hgb Hct MCV MCH MCHC RDW Plt Count MPV Immature Gran % (Auto) Neut % (Auto) Lymph % (Auto) Rains % (Auto) Eos % (Auto) Baso % (Auto) Lymph # (Auto) Rains # (Auto) Eos # (Auto) Baso # (Auto) Abs Immat Gran (auto) Absolute Neuts (auto) Absolute Nucleated RBC Nucleated RBC % (auto) Smear Tech's Comments PT INR APTT Sodium Potassium Chloride Carbon Dioxide Anion Gap BUN Creatinine Estim Creat Clear Calc Estimated GFR POC Glucose 302 H Random Glucose Lactic Acid Lactic Acid Fup @ 2Hr Lactic Acid Fup @ 4Hr 0.9 Calcium Total Bilirubin AST ALT Alkaline Phosphatase Total Protein Albumin Urine Color DARK YELLOW Urine Appearance CLEAR Urine pH 5.0 Ur Specific [place] >= 1.030 H Urine Protein TRACE Urine Glucose (UA) 100 H Urine Ketones NEG Urine Blood NEG Urine Nitrite NEG Ur Leukocyte Esterase NEG Urine RBC 0-2 Urine WBC 1-4 Ur Squamous Epith Cells TRACE Ur Renal Epithelial Cell 1+ Urine Bacteria TRACE Hyaline Casts >50 Granular Casts 1-4 COVID-19 (JOSE) COVID-19 [employer] [facility] 10/10/20 10/10/20 10/10/20 09:03 09:03 09:03 WBC 12.3 H RBC 3.31 L Hgb 10.5 L Hct 30.8 L MCV 93.1 MCH 31.7 MCHC 34.1 RDW 11.9 Plt Count 354 MPV 9.7 Immature Gran % (Auto) 1.8 H Neut % (Auto) 73.6 H Lymph % (Auto) 13.9 L Rains % (Auto) 8.5 Eos % (Auto) 2.0 Baso % (Auto) 0.2 Lymph # (Auto) 1.7 Rains # (Auto) 1.1 Eos # (Auto) 0.3 Baso # (Auto) 0.0 Abs Immat Gran (auto) 0.22 H Absolute Neuts (auto) 9.1 H Absolute Nucleated RBC 0.000 Nucleated RBC % (auto) 0.0 Smear Tech's Comments PT 16.4 H INR 1.4 H APTT Sodium 131 L Potassium 5.1 Chloride 96 Carbon Dioxide 26 Anion Gap 14 BUN 30 H Creatinine 1.29 Estim Creat Clear Calc 86.0 Estimated GFR 57 POC Glucose Random Glucose 267 H Lactic Acid Lactic Acid Fup @ 2Hr Lactic Acid Fup @ 4Hr Calcium 8.3 L Total Bilirubin AST ALT Alkaline Phosphatase Total Protein Albumin Urine Color Urine Appearance Urine pH Ur Specific [place] Urine Protein Urine Glucose (UA) Urine Ketones Urine Blood Urine Nitrite Ur Leukocyte Esterase Urine RBC Urine WBC Ur Squamous Epith Cells Ur Renal Epithelial Cell Urine Bacteria Hyaline Casts Granular Casts COVID-19 (JOSE) COVID-19 Clin Com 10/10/20 10/10/20 12:10 15:12 WBC RBC Hgb Hct MCV MCH MCHC RDW Plt Count MPV Immature Gran % (Auto) Neut % (Auto) Lymph % (Auto) Rains % (Auto) Eos % (Auto) Baso % (Auto) Lymph # (Auto) Rains # (Auto) Eos # (Auto) Baso # (Auto) Abs Immat Gran (auto) Absolute Neuts (auto) Absolute Nucleated RBC Nucleated RBC % (auto) Smear Tech's Comments PT INR APTT Sodium Potassium Chloride Carbon Dioxide Anion Gap BUN Creatinine Estim Creat Clear Calc Estimated GFR POC Glucose 220 H 193 H Random Glucose Lactic Acid Lactic Acid Fup @ 2Hr Lactic Acid Fup @ 4Hr Calcium Total Bilirubin AST ALT Alkaline Phosphatase Total Protein Albumin Urine Color Urine Appearance Urine pH Ur Specific [place] Urine Protein Urine Glucose (UA) Urine Ketones Urine Blood Urine Nitrite Ur Leukocyte Esterase Urine RBC Urine WBC Ur Squamous Epith Cells Ur Renal Epithelial Cell Urine Bacteria Hyaline Casts Granular Casts COVID-19 (JOSE) COVID-19 Clin Com Airway Mallampati Class: II TM Dist: >3cm Neck ROM: Full Denture: Upper Loose/Missing/Broken Teeth: No Heart: RRR Lungs: CTA Assessment and Plan Assessment Anesthesia Assessment: Anesthesia Plan Discussed and Chart Reviewed Final Anesthetic Review NPO: Yes ASA Class: III Final Preanesthetic Review: Meds/Allgs Chart Reviewed and Consent Obtained/Reviewed Patient Risk: Intermediate Procedure Risk: Low Anesthetic Plan Anesthetic Plan: GA Disposition: Standard PACU
--- NOTE | 2020-10-10 17:29 | W.PM.OPN ---
Operative Note Operative Note Date of Service: 10/10/20 Narrative: Operative note by [facility] Preoperative diagnosis: Nonhealing right foot ulcer Postoperative diagnosis: Same Procedure: Right transmetatarsal amputation Surgeon:Cmaeron Figueroa M.D. Gelatin Dynamite Packing Operator: Marjan Anesthesia: General LMA Specimens: 1 Drains: None Estimated blood loss: 100 mL Indications: 60-year-old diabetic gentleman status post right great toe amputation and subsequent ray amputation has had nonhealing ulcer. He now presents for transmetatarsal amputation. Risks benefits complications were discussed in detail with the patient. He understood and consented. Procedure in detail: Patient was taken to the operating room prior to which a time-out was called for patient identification and site verification. Right foot was prepped and draped in standard surgical fashion. A curvilinear incision was made over the transmetatarsal heads. Um underneath on the plantar surface a flap was then created. Using a power saw we went through bruit the metatarsals. And using electrocautery we dissected a crossing created a posterior flap. Once this was all accomplished all necrotic and infected tissue was removed. Wound was thoroughly irrigated out. Deep layer was reapproximated using 2 0 Vicryl. Superficial layer with 2 0 nylon in a mattress fashion. Finally skin was closed with skin clips. Xeroform and a sterile dressing was applied. At the end of the case sponge needle instrument counts were correct. Patient tolerated the procedure well. Was returned to recovery with stable vitals. This note is constructed using voice recognition software. While every effort has been made to ensure accuracy, emergency veterinarian errors may have been included. Thank you for allowing me to participate in the care of your patient. Yours sincerely, Cameron Figueroa MD, FACS, R.P.V.I.
[2020-10-10] MEDS: Docusate Sodium 100 MG CAPSULE PO (20:02)
[2020-10-10] MEDS: Gabapentin 600 MG TABLET PO (20:02)
[2020-10-10] MEDS: bisacodyL 5 MG TABLET.DR PO (20:02)
[2020-10-10 20:34] LABS: Glucose, Whole Blood 256 mg/dL (60-115)
[2020-10-10] MEDS: Insulin Lispro 100 UNIT/ML 3 ML VIAL SUBCUT (21:35)
[2020-10-11 03:43] VITALS: BP 142/71; PULSE 90; RESP 22; TEMP 36.6; O2SAT 97
[2020-10-11] MEDS: Lactated Ringers 1,000 ML 100 ML IVCONT ×2 (05:39→17:40)
[2020-10-11 07:49] VITALS: BP 94/53; PULSE 92; RESP 18; TEMP 36.2; O2SAT 95
[2020-10-11 08:28] LABS: Glucose, Whole Blood 238 mg/dL (60-115)
[2020-10-11] MEDS: Cholecalciferol (Vitamin D3) 25 MCG TABLET PO (08:58)
[2020-10-11] MEDS: Insulin Lispro 100 UNIT/ML 3 ML VIAL SUBCUT ×4 (08:59→20:38)
--- NOTE | 2020-10-11 09:06 | HO.POSTANES ---
Post Anesthesia Evaluation Post Anesthesia Evaluation Vital Signs: Vital Signs Temp Pulse Resp BP Pulse Ox 10/11/20 07:49 97.1 F 92 18 94/53 L 95 10/11/20 03:43 97.9 F 90 22 H 142/71 H 97 10/10/20 23:26 98 F 89 22 H 149/69 H 99 Anesthesia: General LMA Mental Status: Awake Pain Control: Satisfactory Nausea/Vomiting: None Hydration: Adequate Anesthesia-Related Issues: No Anes. Related Issues
[2020-10-11] MEDS: DAPTOmycin 500 MG in 0.9 % Sodium Chloride 50 ML 100 MG IV (10:55)
--- NOTE | 2020-10-11 11:16 | P.PNVS_ITS ---
Subjective Subjective Date of Service: 10/11/20 Patient reports: no new complaints and feels better Interval history: Patient is postop day 1 status post transmetatarsal amputation. No events overnight. He does have some groin pain. Overall no significant complaints. No significant pain in the foot noted. Physical Exam Vital Signs: Vital Signs: Last Vital Signs Temp 97.1 F 10/11/20 07:49 Pulse 92 10/11/20 07:49 Resp 18 10/11/20 07:49 BP 94/53 L 10/11/20 07:49 Pulse Ox 95 10/11/20 07:49 Body Mass Index 36.7 Const: General: cooperative, healthy appearing and no acute distress Orientation/consciousness: oriented to person, oriented to place and oriented to time HENMT: Head: Yes normal to inspection Neck: Carotids: no bruits Chest: Chest palpation & inspection: normal inspection of the chest Resp: Effort & Inspection: normal respiratory effort and able to speak in complete sentences Auscultation: clear to auscultation bilaterally Cardio: Rate: regular rate Heart sounds: S1 normal heart sound present and S2 normal heart sound present GI: Inspection: Yes normal to inspection Skin: Other: Amp site dressing clean dry intact General skin exam: no rashes or lesions noted Wounds: no wounds Neuro: General: oriented to person, oriented to place, oriented to time and CN's II-XI intact bilaterally Extrem: General: Yes normal to inspection, Yes full ROM and Yes no clubbing, c yanosis or edema Psych: Appearance: grossly normal and well kempt Speech and movement: Normal speech and movement present Affect: normal affect Progress Note: A&P Assessment and plan (1) Diabetic foot ulcer: Status: Acute Assessment and Plan: Patient with nonhealing ulcer status post transmetatarsal amputation. Amputation went well. There was an infectious collection noted. Flap was tenuous at best. Would continue with antibiotics for now. He he is scheduled for formal dressing change on Wednesday. I did discuss that he may be at high risk for further amputation. Will reassess the status of the trans met on Wednesday. Thank you for allowing us to assist in his care. Fall Risk Details Current Medications: Current Medications Generic Name Dose Route Start Last Admin Trade Name Freq PRN Reason Stop Dose Admin Acetaminophen 650 mg 10/10/20 02:13 Acetaminophen Supp 650 Mg Supp.Rect [place] Q6H PRN Pain, Mild (Pain Scale 1-3) Albuterol Sulfate 2.5 mg 10/10/20 16:23 Albuterol Sulfate (0.083%) 2.5 Mg/3 Ml Vial.Neb INHALE ONCE PRN Wheezing Bisacodyl 5 mg 10/10/20 09:00 10/11/20 08:18 Bisacodyl 5 Mg Tablet.Dr PO Not Given BID TJ Docusate Sodium 100 mg 10/10/20 09:00 10/11/20 08:18 Docusate Sodium 100 Mg Capsule PO Not Given BID TJ Gabapentin 600 mg 10/10/20 21:00 10/10/20 20:02 Gabapentin 600 Mg Tablet PO 600 mg BEDTIME TJ Administration Daptomycin 500 mg/ Sodium 60 mls @ 100 mls/hr 10/10/20 10:00 10/11/20 10:55 Chloride IV 100 mls/hr Q24H TJ Administration Lactated Ringer's 1,000 mls @ 100 mls/hr 10/10/20 09:15 10/11/20 05:39 Lr IVCONT 100 mls/hr .Q10H TJ Administration Insulin Human Lispro 0 unit 10/11/20 08:15 10/11/20 08:59 Insulin Lispro 100 Unit/Ml 3 Ml Vial SUBCUT 4 unit QIDACHS TJ Administration Protocol Lactulose 20 gm 10/10/20 02:19 Lactulose 20 Gm/30 Ml Solution PO DAILY PRN Constipation Morphine Sulfate 4 mg 10/10/20 17:34 Morphine Sulfate 4 Mg/Ml Cartridge IVPUSH Q3H PRN Pain, Severe (Pain Scale 7-10) Ondansetron HCl 4 mg 10/10/20 17:43 Ondansetron Hcl 4 Mg/2 Ml Vial IVPUSH ONCE PRN Nausea and Vomiting Oxycodone HCl 5 mg 10/10/20 05:53 Oxycodone Hcl Immed Release 5 Mg Tablet PO Q6H PRN [facility] Pain Oxycodone HCl 5 mg 10/10/20 17:50 Oxycodone Hcl Immed Release 5 Mg Tablet PO ONCE PRN Pain, Severe (Pain Scale 7-10) Pharmacy Consult 1 each 10/09/20 16:38 Consult Rx Perform Med Rec MISCELLANE ONCE PRN Consult order Polyethylene Glycol 17 gm 10/10/20 02:19 Polyethylene Glycol 3350 17 Gm Powd.Pack PO DAILY PRN Constipation Sodium Chloride 3 ml 10/10/20 08:00 10/11/20 08:18 0.9 % Sodium Chloride Flush 3 Ml Syringe IVFLUSH Not Given QSHIFT TJ Vitamin D 25 mcg 10/10/20 09:00 10/11/20 08:58 Cholecalciferol (Vitamin D3) 25 Mcg Tablet PO 25 mcg DAILY TJ Administration Time Spent With Patient Time: Total time spent is greater than 50% in coordination of care (as documented) at patient's floor/unit and/or counseling patient: Time with patient: 15 - 24 minutes
[2020-10-11 11:39] VITALS: BP 109/45; PULSE 105; RESP 18; TEMP 37.1; O2SAT 93
[2020-10-11 12:04] LABS: Glucose, Whole Blood 302 mg/dL (60-115)
--- NOTE | 2020-10-11 12:05 | P.PNIM_ITS ---
Subjective Subjective Date of Service: 10/11/20 Interval History: dm foot Review of Systems Patient denies any chest pain or shortness of breath or abdominal pain or fever chills or nausea or vomiting. Physical Exam Vital Signs: Vital Signs: Last Vital Signs Temp 98.7 F 10/11/20 11:39 Pulse 105 H 10/11/20 11:39 Resp 18 10/11/20 11:39 BP 109/45 L 10/11/20 11:39 Pulse Ox 93 10/11/20 11:39 Body Mass Index 36.7 Physical exam: Constitutional: Not in acute distress HEENT: Eyes: Anicteric, no discharge Cvs: rrr, [id number] , no murmur res: clear to auscultation ,no rhonchii or wheezing abd: no rebound or guarding ,nt, bs present. ext pulses present , no cyanosis neuro: axo3 , nonfocal. Objective Data Current Medications Generic Name Dose Route Start Last Admin Trade Name Freq PRN Reason Stop Dose Admin Acetaminophen 650 mg 10/10/20 02:13 Acetaminophen Supp 650 Mg Supp.Rect [place] Q6H PRN Pain, Mild (Pain Scale 1-3) Albuterol Sulfate 2.5 mg 10/10/20 16:23 Albuterol Sulfate (0.083%) 2.5 Mg/3 Ml Vial.Neb INHALE ONCE PRN Wheezing Bisacodyl 5 mg 10/10/20 09:00 10/11/20 08:18 Bisacodyl 5 Mg Tablet. PO Not Given BID TJ Docusate Sodium 100 mg 10/10/20 09:00 10/11/20 08:18 Docusate Sodium 100 Mg Capsule PO Not Given BID TJ Gabapentin 600 mg 10/10/20 21:00 10/10/20 20:02 Gabapentin 600 Mg Tablet PO 600 mg BEDTIME TJ Administration Daptomycin 500 mg/ Sodium 60 mls @ 100 mls/hr 10/10/20 10:00 10/11/20 11:59 Chloride IV Infused Q24H TJ Infusion Lactated Ringer's 1,000 mls @ 100 mls/hr 10/10/20 09:15 10/11/20 05:39 Lr IVCONT 100 mls/hr .Q10H TJ Administration Insulin Human Lispro 0 unit 10/11/20 08:15 10/11/20 12:04 Insulin Lispro 100 Unit/Ml 3 Ml Vial SUBCUT 8 unit QIDACHS [facility] Administration Protocol Lactulose 20 gm 10/10/20 02:19 Lactulose 20 Gm/30 Ml Solution PO DAILY PRN Constipation Morphine Sulfate 4 mg 10/10/20 17:34 Morphine Sulfate 4 Mg/Ml Cartridge IVPUSH Q3H PRN Pain, Severe (Pain Scale 7-10) Nystatin 1 appl 10/11/20 11:30 Nystatin Powder 15 Gm Bottle TOPICAL BID [facility] Protocol Ondansetron HCl 4 mg 10/10/20 17:43 Ondansetron Hcl 4 Mg/2 Ml Vial IVPUSH ONCE PRN Nausea and Vomiting Oxycodone HCl 5 mg 10/10/20 05:53 Oxycodone Hcl Immed Release 5 Mg Tablet PO Q6H PRN Breakthrough Pain Oxycodone HCl 5 mg 10/10/20 17:50 Oxycodone Hcl Immed Release 5 Mg Tablet PO ONCE PRN Pain, Severe (Pain Scale 7-10) Pharmacy Consult 1 each 10/09/20 16:38 Consult Rx Perform Med Rec MISCELLANE ONCE PRN Consult order Polyethylene Glycol 17 gm 10/10/20 02:19 Polyethylene Glycol 3350 17 Gm Powd.Pack PO DAILY PRN Constipation Sodium Chloride 3 ml 10/10/20 08:00 10/11/20 08:18 0.9 % Sodium Chloride Flush 3 Ml Syringe IVFLUSH Not Given QSHIFT [facility] Vitamin D 25 mcg 10/10/20 09:00 10/11/20 08:58 Cholecalciferol (Vitamin D3) 25 Mcg Tablet PO 25 mcg DAILY [facility] Administration Labs CBC & Chem 7: 10/10/20 09:03 10/10/20 09:03 Microbiology Microbiology Results: Microbiology 10/09/20 18:16 Blood - Venous Blood Culture - Preliminary No growth after 24 hours. 10/09/20 18:15 Blood - Venous Blood Culture - Preliminary No growth after 24 hours. Assessment and Plan (1) Diabetic foot ulcer: Status: Acute (2) MRSA bacteremia: Status: Acute Assessment and Plan: 60-year-old male with a past medical history of hypertension, hyperlipidemia, diabetes, diabetic foot ulcer, recent history of right great toe amputation; hi story of peripheral vascular disease status post angioplasty; on daptomycin for right foot infection/diabetic foot ulcer/MRSA bacteremia via PICC line presented with right lower extremity pain. 1.Right lower extremity pain: Duplex negative for any blood clots. Pain control. Us showed -? enlarged lymph -Prominent groin nodes are noted measuring 1.4-1.6 cm. pain control if continue to have pain -may need further imaging to evaluate . 2.Diabetic foot ulcer: Recent history of MRSA bacteremia. Has dressing in place for right foot. Patient had recent right great toe amputation in August of 2020. Vascular surgery mentioned that patient is a candidate for transmetatarsal amputation and will do the procedure during this admission. Continue daptomycin via PICC line. He claimed was placed on 09/09/2020. PICC line site appears clean. blood culture prelim neg seen by ID na vascular:s/p post transmetatarsal amputation yesterday previous discharge summary: 09/26/20 : Patient was supposed to be daptomycin 26 days-so probable end ddate 10/21. 3.Diabetes: Insulin sliding scale. Monitor fingerstick glucose. Titrate insulins as needed. 4.History of hyperlipidemia: Hold statins given patient is on daptomycin. 5.History of thrombocytopenia: Currently platelets normalized. Was presumed to be secondary to vancomycin. Which has been discontinued. 6.History of MGUS: Patient to follow-up as outpatient in Hematology-Oncology Clinic.
--- NOTE | 2020-10-11 13:52 | P.CNID_ITS ---
History of Present Illness Data of Consult Service Date: 10/11/20 Requesting physician: Leidy Weeks Primary Care Provider: Virginie Liao MD HPI Reason for consult: right foot infection He has been admitted for right foot infection He has had bacteremia 09/04 MRSA last admission and clear 09/10/2020. He also has had nonhealing right foot ulcer and TMA on 10/10/20 He has had great toe amputation before as well He has been on Vancomycin initially and had thrombocytopenia likely due to [place] ncomycin He was switched to Daptomycin and is now week 4 of IV antibiotics and tolerating well Review of Systems Review of Systems: Yes all other systems are reviewed and are negative PMFSH Past Medical History Medical History Amputated great toe of right foot Back pain Drug-induced thrombocytopenia Hyperlipidemia Hypertension IDDM (insulin dependent diabetes mellitus) MGUS (monoclonal gammopathy of unknown significance) Neck pain Peripheral neuropathy Psychiatric diagnosis Sleep apnea Family History Family history: reviewed and not pertinent Surgical History Surgical History H/O colonoscopy Hx of angioplasty Hx of appendectomy Hx of foot surgery Hx of tonsillectomy Hx of umbilical hernia repair Social History Social History Household Members: None Housing: Apartment Alcohol intake: never Smoking Status: Never smoker Second Hand Smoke Exposure: No Advance Directives: No Advance Directives Information Provided: No Advance Directives Date on File: 09/27/20 service: Yes Current occupational status: unemployed Meds Allergies Allergy/AdvReac Type Severity Reaction Status Date / Time vancomycin AdvReac Severe thrombocyto Verified 10/01/20 13:53 penia Active Medications: Current Medications Generic Name Dose Route Start Last Admin Trade Name Freq PRN Reason Stop Dose Admin Acetaminophen 650 mg 10/10/20 02:13 Acetaminophen Supp 650 Mg Supp.Rect CA Q6H PRN Pain, Mild (Pain Scale 1-3) Albuterol Sulfate 2.5 mg 10/10/20 16:23 Albuterol Sulfate (0.083%) 2.5 Mg/3 Ml Vial.Neb INHALE ONCE PRN Wheezing Bisacodyl 5 mg 10/10/20 09:00 10/11/20 08:18 Bisacodyl 5 Mg Tablet.Dr PO Not Given BID [facility] Docusate Sodium 100 mg 10/10/20 09:00 10/11/20 08:18 Docusate Sodium 100 Mg Capsule PO Not Given BID [facility] Gabapentin 600 mg 10/10/20 21:00 10/10/20 20:02 Gabapentin 600 Mg Tablet PO 600 mg BEDTIME [facility] Administration Daptomycin 500 mg/ Sodium 60 mls @ 100 mls/hr 10/10/20 10:00 10/11/20 11:59 Chloride IV Infused Q24H [facility] Infusion Lactated Ringer's 1,000 mls @ 100 mls/hr 10/10/20 09:15 10/11/20 05:39 Lr IVCONT 100 mls/hr .Q10H [facility] Administration Insulin Human Lispro 0 unit 10/11/20 08:15 10/11/20 12:04 Insulin Lispro 100 Unit/Ml 3 Ml Vial SUBCUT 8 unit QIDACHS [facility] Administration Protocol Lactulose 20 gm 10/10/20 02:19 Lactulose 20 Gm/30 Ml Solution PO DAILY PRN Constipation Morphine Sulfate 4 mg 10/10/20 17:34 Morphine Sulfate 4 Mg/Ml Cartridge IVPUSH Q3H PRN Pain, Severe (Pain Scale 7-10) Nystatin 1 appl 10/11/20 11:30 Nystatin Powder 15 Gm Bottle TOPICAL BID [facility] Protocol Ondansetron HCl 4 mg 10/10/20 17:43 Ondansetron Hcl 4 Mg/2 Ml Vial IVPUSH ONCE PRN Nausea and Vomiting Oxycodone HCl 5 mg 10/10/20 05:53 Oxycodone Hcl Immed Release 5 Mg Tablet PO Q6H PRN Breakthrough Pain Oxycodone HCl 5 mg 10/10/20 17:50 Oxycodone Hcl Immed Release 5 Mg Tablet PO ONCE PRN Pain, Severe (Pain Scale 7-10) Pharmacy Consult 1 each 10/09/20 16:38 Consult Rx Perform Med Rec MISCELLANE ONCE PRN Consult order Polyethylene Glycol 17 gm 10/10/20 02:19 Polyethylene Glycol 3350 17 Gm Powd.Pack PO DAILY PRN Constipation Sodium Chloride 3 ml 10/10/20 08:00 10/11/20 08:18 0.9 % Sodium Chloride Flush 3 Ml Syringe IVFLUSH Not Given QSHIFT [facility] Vitamin D 25 mcg 10/10/20 09:00 10/11/20 08:58 Cholecalciferol (Vitamin D3) 25 Mcg Tablet PO 25 mcg DAILY [facility]J Administration Home Medications Medication Instructions Recorded Confirmed Last Taken Type Victoza 3-Chet 1.8 mg SUBCUT DAILY 07/17/20 10/09/20 Unknown History aspirin 81 mg PO DAILY 07/17/20 10/09/20 Unknown History gabapentin 600 mg PO BEDTIME 07/17/20 10/09/20 Unknown History lisinopril 5 mg PO DAILY 07/17/20 10/09/20 Unknown History metformin 1,000 mg PO BID 07/17/20 10/09/20 Unknown History bisacodyl 5 mg PO BID 09/04/20 10/09/20 Unknown History cholecalciferol (vitamin D3) 25 mcg PO DAILY 09/04/20 10/09/20 Unknown History blood sugar diagnostic #10 ea 10/01/20 Unknown History fluoxetine 20 mg capsule 20 mg PO DAILY 10/01/20 10/09/20 Unknown History Tresiba FlexTouch U-100 SUBCUT DAILY 10/09/20 Unknown History atorvastatin 40 mg PO BEDTIME 10/09/20 10/09/20 Unknown History Physical Exam Vital Signs: Vital Signs: Last Vital Signs Temp 98.7 F 10/11/20 11:39 Pulse 105 H 10/11/20 11:39 Resp 18 10/11/20 11:39 BP 109/45 L 10/11/20 11:39 Pulse Ox 93 10/11/20 11:39 Body Mass Index 36.7 Const: General: cooperative HENMT: Head: Yes normal to inspection Mouth: Normal oral and palatal mucosa present Eyes: General: appearance normal, both eyes and all related structures Resp: Effort & Inspection: normal respiratory effort Cardio: Rate: regular rate Rhythm: regular rhythm GI: Palpation (GI): Soft to palpation and nontender : General: Yes no CVA tenderness Back/Spine/Pelvis: Back: no CVA tenderness Skin: General skin exam: no rashes or lesions noted Extrem: Other: wrapped right foot Results Labs CBC & Chem 7: 10/18/20 06:18 10/18/20 06:18 Microbiology Microbiology Results: Microbiology 10/09/20 18:16 Blood - Venous Blood Culture - Preliminary No growth after 24 hours. 10/09/20 18:15 Blood - Venous Blood Culture - Preliminary No growth after 24 hours. Assessment and Plan (1) Diabetic foot ulcer: Status: Acute (2) MRSA bacteremia: Status: Acute Would stop Daptomycin on discharge and Pull PICC line (3) MGUS (monoclonal gammopathy of unknown significance): Status: Acute
[2020-10-11 14:56] VITALS: BMI 36.7
--- NOTE | 2020-10-11 15:27 | MHC.CM.PN ---
CALL RECEIVED FROM [facility] REP. DELORIS ([phone]) SHE STATES THAT PATIENT HAS BEEN ACTIVE WITH [facility] AND [facility]. SHE FEELS PATIENT WILL BE APPROPRIATE FOR SNF LEVEL OF CARE AND A REFERRAL TO THE [facility] IS PLACED. PATIENT DOES HAVE HOME HEALTH SERVICES THROUGH [facility]. [facility] AND [facility] REFERRALS PLACED FOR AGENCIES TO FOLLOW IN THE EVENT THAT PATIENT RETURNS HOME. IMM 10/10 IN CHART.
[2020-10-11 16:00] VITALS: BP 146/64; PULSE 106; RESP 22; TEMP 36.5; O2SAT 96
[2020-10-11 17:04] LABS: Glucose, Whole Blood 332 mg/dL (60-115)
[2020-10-11 19:26] VITALS: BP 108/47; PULSE 102; RESP 20; TEMP 36.8; O2SAT 93
[2020-10-11 20:22] LABS: Glucose, Whole Blood 363 mg/dL (60-115)
[2020-10-11] MEDS: Gabapentin 600 MG TABLET PO (20:37)
[2020-10-11] MEDS: Docusate Sodium 100 MG CAPSULE PO (20:37)
[2020-10-11] MEDS: bisacodyL 5 MG TABLET.DR PO (20:37)
[2020-10-11 23:49] VITALS: BP 109/53; PULSE 93; RESP 18; TEMP 36.9; O2SAT 94
[2020-10-12] VITALS (7 sets, daily range): BP systolic 113–137; BP diastolic 61–78; PULSE 80–94; RESP 18–22; TEMP 36.3–38.1; O2SAT 92–97
[2020-10-12] MEDS: Lactated Ringers 1,000 ML 100 ML IVCONT (02:20)
[2020-10-12 06:57] LABS: Hematocrit 27.2 % (42-52); Hemoglobin 9.3 g/dl (14.0-18.0); Mean Corpuscular HGB Conc 34.2 g/dl (31.0-36.0); Mean Corpuscular Hemoglobin 31.7 pg (27.0-33.0); Mean Corpuscular Volume 92.8 fL (80-98); Platelet Count 362 X10*3/uL (160-400); Red Blood Count 2.93 X10*6/uL (4.60-5.80); Red Cell Distribution Width 11.8 % (11.0-16.0); White Blood Count 13.8 X10*3/uL (4.8-10.8)
[2020-10-12 07:19] LABS: Anion Gap 12 (12-20); Blood Urea Nitrogen 13 mg/dL (9-16); Calcium 8.1 mg/dL (8.4-10.2); Carbon Dioxide 24 mmol/L (22-29); Chloride 98 mmol/L (96-108); Creatinine Clr Calc Pharmacy 133.7; Estimated Glomerular Filt Rate > 60; Glucose Random 244 mg/dL (60-115); Potassium 4.4 mmol/L (3.3-5.1); Sodium 130 mmol/L (135-145)
[2020-10-12 07:59] LABS: Glucose, Whole Blood 226 mg/dL (60-115)
[2020-10-12] MEDS: Insulin Lispro 100 UNIT/ML 3 ML VIAL SUBCUT ×4 (08:13→20:34)
[2020-10-12] MEDS: Docusate Sodium 100 MG CAPSULE PO ×2 (08:15→20:35)
[2020-10-12] MEDS: oxyCODONE HCl Immed Release 5 MG TABLET PO ×2 (08:15→15:09)
[2020-10-12] MEDS: Cholecalciferol (Vitamin D3) 25 MCG TABLET PO (08:15)
[2020-10-12] MEDS: bisacodyL 5 MG TABLET.DR PO ×2 (08:15→20:35)
[2020-10-12] MEDS: 0.9 % Sodium Chloride Flush 3 ML SYRINGE IVFLUSH ×3 (08:16→23:34)
[2020-10-12] MEDS: DAPTOmycin 500 MG in 0.9 % Sodium Chloride 50 ML 100 MG IV (09:19)
[2020-10-12] MEDS: Nystatin Powder 15 GM BOTTLE 1 APPL TOPICAL ×2 (09:19→20:36)
[2020-10-12 12:05] LABS: Glucose, Whole Blood 363 mg/dL (60-115)
--- NOTE | 2020-10-12 12:37 | HO.PM.IMPN ---
Subjective Subjective Date of Service: 10/12/20 Interval History: seen and examined no new complaints foot pain controlled this AM no cp or sob ROS General - no fevers or chills Cardiovascular - no chest pain Respiratory - no shortness of breath or cough Abdominal- no abdominal pain, nausea, vomiting, diarrhea Physical Exam Vital Signs: Vital Signs: Last Vital Signs Temp 98.8 F 10/12/20 11:46 Pulse 91 10/12/20 11:46 Resp 18 10/12/20 11:46 BP 119/67 10/12/20 11:46 Pulse Ox 92 10/12/20 11:46 Body Mass Index 36.7 Const: Other: General - no acute distress, appears comfortable Cardiovascular - regular rate and rhythm, S1-S2 Lungs - normal respiratory effort, clear to auscultation bilaterally, no wheezing Abdomen - soft, nontender, no rebound or guarding Extremities - dressing in place Neuro - awake and alert, no focal deficits Objective Data Current Medications Generic Name Dose Route Start Last Admin Trade Name Freq PRN Reason Stop Dose Admin Acetaminophen 650 mg 10/10/20 02:13 Acetaminophen Supp 650 Mg Supp.Rect RI Q6H PRN Pain, Mild (Pain Scale 1-3) Albuterol Sulfate 2.5 mg 10/10/20 16:23 Albuterol Sulfate (0.083%) 2.5 Mg/3 Ml Vial.Neb INHALE ONCE PRN Wheezing Bisacodyl 5 mg 10/10/20 09:00 10/12/20 08:15 Bisacodyl 5 Mg Tablet.Dr PO 5 mg BID [facility]J Administration Docusate Sodium 100 mg 10/10/20 09:00 10/12/20 08:15 Docusate Sodium 100 Mg Capsule PO 100 mg BID TJ Administration Gabapentin 600 mg 10/10/20 21:00 10/11/20 20:37 Gabapentin 600 Mg Tablet PO 600 mg BEDTIME [facility] Administration Daptomycin 500 mg/ Sodium 60 mls @ 100 mls/hr 10/10/20 10:00 10/12/20 10:06 Chloride IV Infused Q24H [facility] Infusion Insulin Human Lispro 0 unit 10/11/20 08:15 10/12/20 12:13 Insulin Lispro 100 Unit/Ml 3 Ml Vial SUBCUT 10 unit QIDACHS [facility] Administration Protocol Lactulose 20 gm 10/10/20 02:19 Lactulose 20 Gm/30 Ml Solution PO DAILY PRN Constipation Morphine Sulfate 4 mg 10/10/20 17:34 Morphine Sulfate 4 Mg/Ml Cartridge IVPUSH Q3H PRN Pain, Severe (Pain Scale 7-10) Nystatin 1 appl 10/11/20 11:30 10/12/20 09:19 Nystatin Powder 15 Gm Bottle TOPICAL 1 appl BID [facility]J Administration Protocol Ondansetron HCl 4 mg 10/10/20 17:43 Ondansetron Hcl 4 Mg/2 Ml Vial IVPUSH ONCE PRN Nausea and Vomiting Oxycodone HCl 5 mg 10/10/20 05:53 10/12/20 08:15 Oxycodone Hcl Immed Release 5 Mg Tablet PO 5 mg Q6H PRN Administration Breakthrough Pain Oxycodone HCl 5 mg 10/10/20 17:50 Oxycodone Hcl Immed Release 5 Mg Tablet PO ONCE PRN Pain, Severe (Pain Scale 7-10) Pharmacy Consult 1 each 10/09/20 16:38 Consult Rx Perform Med Rec MISCELLANE ONCE PRN Consult order Polyethylene Glycol 17 gm 10/10/20 02:19 Polyethylene Glycol 3350 17 Gm Powd.Pack PO DAILY PRN Constipation Sodium Chloride 3 ml 10/10/20 08:00 10/12/20 08:16 0.9 % Sodium Chloride Flush 3 Ml Syringe IVFLUSH 3 ml QSHIFT TJ Administration Vitamin D 25 mcg 10/10/20 09:00 10/12/20 08:15 Cholecalciferol (Vitamin D3) 25 Mcg Tablet PO 25 mcg DAILY TJ Administration Labs CBC & Chem 7: 10/12/20 06:22 10/12/20 06:22 Microbiology Microbiology Results: Microbiology 10/09/20 18:16 Blood - Venous Blood Culture - Preliminary No growth after 48 hours. 10/09/20 18:15 Blood - Venous Blood Culture - Preliminary No growth after 48 hours. Assessment and Plan (1) Diabetic foot ulcer: Problem details: He has had surgery Issue has been resolved Status: Acute (2) MRSA bacteremia: Problem details: So far blood cultures negative Status: Acute Assessment and Plan: This is a 60 yo M with a PMH of DM, MRSA bacteremia due to diabetic foot infection (currently being treated with daptomycin) who is admitted for: 1. Diabetic foot infection s/p TMA continue dapotmycin for now - duration of antibiotics to be discussed with vascular and ID on Wednesday dressing changes per vascular recs 2.MRSA bactermia daptomcyin for now - End date from prior infection was 10/22/20. blood cx from this admission negative 3. DM diabetic diet sliding scale, start lantus 4. Recent thrombocytopenia was suspected due to vancomcyin now normalized 5. History of MGUS outpatient oncology f/u continue other chronic meds Full Code DVT pptx, start lovenox
[2020-10-12] MEDS: Enoxaparin Sodium 40 MG/0.4 ML SYRINGE SUBCUT (13:28)
[2020-10-12] MEDS: Insulin Glargine,Hum.rec.anlog 100 UNIT/ML 10 ML VIAL 10 UNIT SUBCUT (13:28)
[2020-10-12 16:44] LABS: Glucose, Whole Blood 317 mg/dL (60-115)
[2020-10-12] MEDS: Ibuprofen 400 MG TABLET PO (17:01)
--- NOTE | 2020-10-12 18:38 | PM.EVENT ---
Event Note Date of Service: 10/12/20 Event Note: Pt sustained a mechanical fall attempting to get out of bed without help and landed on hip area. No injury to head, skin survey intack including scalp, he has some pain in hip but he says this is chronic. Extremity mobilities intact. Mental status is intact. Out of abundant of caution, I will perform hip imaging, as well brain CT.
--- NOTE | 2020-10-12 19:37 | PC.NURSE ---
1800- Pt heard yelling for help. This RN entered the room to find patient on floor. Pt laying on back, but states he fell on R side. Pt denies hitting head, able to move all extremities. Denies pain. No injuries noted. Pt stated, Doctor told me I needed to walk, so I did . Pt c/o R groin weakness, so when placed pressure on R foot, lost balance. Nursing supervisor of guidance and testing at bedside. Pt assisted to chair than back to bed. Dr. Terrazas made aware via [employer]. Dr. Adrian at bedside to assess patient. Chest CT and xray ordered. Pt previously moderate fall risk. Pt changed to high fall risk, telesitter in place, bed alarm on.
--- NOTE | 2020-10-12 19:58 | PC.NURSE ---
1200- POC 363. Dr. Terrazas made aware. No additional insulin ordered. Pt given 10 units SSI, eating lunch. No complaints at this time.
[2020-10-12 20:06] LABS: Glucose, Whole Blood 324 mg/dL (60-115)
[2020-10-12] MEDS: Insulin Glargine,Hum.rec.anlog 100 UNIT/ML 10 ML VIAL 20 UNIT SUBCUT (20:34)
[2020-10-12] MEDS: Gabapentin 600 MG TABLET PO (20:35)
[2020-10-13] VITALS (8 sets, daily range): BP systolic 110–155; BP diastolic 56–77; PULSE 74–100; RESP 16–24; TEMP 36.1–36.8; O2SAT 92–97
[2020-10-13 07:13] LABS: Hematocrit 28.7 % (42-52); Hemoglobin 9.8 g/dl (14.0-18.0); Mean Corpuscular HGB Conc 34.1 g/dl (31.0-36.0); Mean Corpuscular Hemoglobin 31.8 pg (27.0-33.0); Mean Corpuscular Volume 93.2 fL (80-98); Mean Platelet Volume 10.2 fL (9.4-12.4); Platelet Count 384 X10*3/uL (160-400); Red Blood Count 3.08 X10*6/uL (4.60-5.80); Red Cell Distribution Width 11.9 % (11.0-16.0); White Blood Count 14.5 X10*3/uL (4.8-10.8)
[2020-10-13 07:45] LABS: Anion Gap 15 (12-20); Blood Urea Nitrogen 13 mg/dL (9-16); Calcium 7.9 mg/dL (8.4-10.2); Carbon Dioxide 24 mmol/L (22-29); Chloride 95 mmol/L (96-108); Creatinine Clr Calc Pharmacy 133.7; Estimated Glomerular Filt Rate > 60; Glucose Random 261 mg/dL (60-115); Potassium 4.6 mmol/L (3.3-5.1); Sodium 129 mmol/L (135-145)
[2020-10-13 07:51] LABS: Glucose, Whole Blood 240 mg/dL (60-115)
[2020-10-13] MEDS: Insulin Lispro 100 UNIT/ML 3 ML VIAL SUBCUT ×4 (07:55→20:53)
[2020-10-13] MEDS: Cholecalciferol (Vitamin D3) 25 MCG TABLET PO (07:56)
[2020-10-13] MEDS: Nystatin Powder 15 GM BOTTLE 1 APPL TOPICAL ×2 (07:57→20:59)
[2020-10-13] MEDS: 0.9 % Sodium Chloride Flush 3 ML SYRINGE IVFLUSH ×3 (07:57→20:59)
[2020-10-13] MEDS: oxyCODONE HCl Immed Release 5 MG TABLET PO ×2 (08:05→15:39)
--- NOTE | 2020-10-13 10:16 | P.PNIM_ITS ---
Subjective Subjective Date of Service: 10/13/20 Interval History: seen and examined had a mechanical fall yesterday, denies any hip or head pain ROS General - no fevers or chills Cardiovascular - no chest pain Respiratory - no shortness of breath or cough Abdominal- no abdominal pain, nausea, vomiting, diarrhea Physical Exam Vital Signs: Vital Signs: Last Vital Signs Temp 98.3 F 10/13/20 07:26 Pulse 88 10/13/20 07:26 Resp 18 10/13/20 07:26 BP 119/61 10/13/20 07:26 Pulse Ox 93 10/13/20 07:26 Body Mass Index 36.7 Const: Other: General - no acute distress, appears comfortable Cardiovascular - regular rate and rhythm, S1-S2 Lungs - normal respiratory effort, clear to auscultation bilaterally, no wheezing Abdomen - soft, non-tender, no rebound or guarding Extremities - dressing in place Neuro - awake and alert, no focal deficits Objective Data Current Medications Generic Name Dose Route Start Last Admin Trade Name Freq PRN Reason Stop Dose Admin Acetaminophen 650 mg 10/12/20 16:08 Acetaminophen 325 Mg Tablet PO Q6H PRN PAINFEV Albuterol Sulfate 2.5 mg 10/10/20 16:23 Albuterol Sulfate (0.083%) 2.5 Mg/3 Ml Vial.Neb INHALE ONCE PRN Wheezing Bisacodyl 5 mg 10/10/20 09:00 10/13/20 07:58 Bisacodyl 5 Mg Tablet. PO Not Given BID TJ Docusate Sodium 100 mg 10/10/20 09:00 10/13/20 07:59 Docusate Sodium 100 Mg Capsule PO Not Given BID TJ Enoxaparin Sodium 40 mg 10/12/20 13:00 10/12/20 13:28 Enoxaparin Sodium 40 Mg/0.4 Ml Syringe SUBCUT 40 mg Q24H TJ Administration Gabapentin 600 mg 10/10/20 21:00 10/12/20 20:35 Gabapentin 600 Mg Tablet PO 600 mg BEDTIME TJ Administration Daptomycin 500 mg/ Sodium 60 mls @ 100 mls/hr 10/10/20 10:00 10/12/20 10:06 Chloride IV Infused Q24H [facility]J Infusion Insulin Glargine 20 unit 10/12/20 21:00 10/12/20 20:34 Insulin Glargine,Hum.Rec.Anlog 100 Unit/Ml 10 Ml Vial SUBCUT 20 unit BEDTIME TJ Administration Insulin Human Lispro 0 unit 10/11/20 08:15 10/13/20 07:55 Insulin Lispro 100 Unit/Ml 3 Ml Vial SUBCUT 4 unit QIDACHS [facility] Administration Protocol Lactulose 20 gm 10/10/20 02:19 Lactulose 20 Gm/30 Ml Solution PO DAILY PRN Constipation Morphine Sulfate 4 mg 10/10/20 17:34 Morphine Sulfate 4 Mg/Ml Cartridge IVPUSH Q3H PRN Pain, Severe (Pain Scale 7-10) Nystatin 1 appl 10/11/20 11:30 10/13/20 07:57 Nystatin Powder 15 Gm Bottle TOPICAL 1 appl BID [facility] Administration Protocol Ondansetron HCl 4 mg 10/10/20 17:43 Ondansetron Hcl 4 Mg/2 Ml Vial IVPUSH ONCE PRN Nausea and Vomiting Oxycodone HCl 5 mg 10/10/20 05:53 10/13/20 08:05 Oxycodone Hcl Immed Release 5 Mg Tablet PO 5 mg Q6H PRN Administration Breakthrough Pain Oxycodone HCl 5 mg 10/10/20 17:50 Oxycodone Hcl Immed Release 5 Mg Tablet PO ONCE PRN Pain, Severe (Pain Scale 7-10) Pharmacy Consult 1 each 10/09/20 16:38 Consult Rx Perform Med Rec MISCELLANE ONCE PRN Consult order Polyethylene Glycol 17 gm 10/10/20 02:19 Polyethylene Glycol 3350 17 Gm Powd.Pack PO DAILY PRN Constipation Sodium Chloride 3 ml 10/10/20 08:00 10/13/20 07:57 0.9 % Sodium Chloride Flush 3 Ml Syringe IVFLUSH 3 ml QSHIFT [facility] Administration Vitamin D 25 mcg 10/10/20 09:00 10/13/20 07:56 Cholecalciferol (Vitamin D3) 25 Mcg Tablet PO 25 mcg DAILY [facility] Administration Labs CBC & Chem 7: 10/13/20 06:10 10/13/20 06:10 Microbiology Microbiology Results: Microbiology 10/09/20 18:16 Blood - Venous Blood Culture - Preliminary No growth after 48 hours. 10/09/20 18:15 Blood - Venous Blood Culture - Preliminary No growth after 48 hours. Assessment and Plan (1) Diabetic foot ulcer: Status: Acute (2) MRSA bacteremia: Status: Acute Assessment and Plan: This is a 60 yo M with a PMH of DM, MRSA bacteremia due to diabetic foot infection (currently being treated with daptomycin) who is admitted for: 1. Diabetic foot infection s/p TMA continue dapotmycin for now - duration of antibiotics to be discussed with vascular and ID on Wednesday dressing changes per vascular recs 2.MRSA bactermia (from prior admit) daptomcyin for now - End date from prior infection was 10/22/20. blood cx from this admission negative 3. DM diabetic diet sliding scale, start lantus 4. Recent thrombocytopenia was suspected due to vancomcyin now normalized 5. History of MGUS outpatient oncology f/u 6. HypoNa mild monitor continue other chronic meds Full Code DVT pptx, lovenox
[2020-10-13] MEDS: DAPTOmycin 500 MG in 0.9 % Sodium Chloride 50 ML 100 MG IV (10:17)
[2020-10-13 11:58] LABS: Glucose, Whole Blood 283 mg/dL (60-115)
[2020-10-13] MEDS: Enoxaparin Sodium 40 MG/0.4 ML SYRINGE SUBCUT (12:42)
[2020-10-13 16:37] LABS: Glucose, Whole Blood 349 mg/dL (60-115)
[2020-10-13 20:29] LABS: Glucose, Whole Blood 338 mg/dL (60-115)
[2020-10-13] MEDS: bisacodyL 5 MG TABLET.DR PO (20:53)
[2020-10-13] MEDS: Docusate Sodium 100 MG CAPSULE PO (20:53)
[2020-10-13] MEDS: Gabapentin 600 MG TABLET PO (20:53)
[2020-10-13] MEDS: Insulin Glargine,Hum.rec.anlog 100 UNIT/ML 10 ML VIAL 20 UNIT SUBCUT (20:54)
[2020-10-14 02:48] VITALS: BP 116/62; PULSE 76; RESP 20; O2SAT 94
[2020-10-14 04:00] VITALS: BP 113/84; PULSE 83; RESP 18; TEMP 36.6; O2SAT 92
[2020-10-14 07:24] VITALS: BP 125/59; PULSE 81; RESP 21; TEMP 36.5; O2SAT 91
[2020-10-14 07:38] LABS: Glucose, Whole Blood 228 mg/dL (60-115)
[2020-10-14] MEDS: 0.9 % Sodium Chloride Flush 3 ML SYRINGE IVFLUSH (08:47)
[2020-10-14] MEDS: Cholecalciferol (Vitamin D3) 25 MCG TABLET PO (08:47)
[2020-10-14] MEDS: Insulin Lispro 100 UNIT/ML 3 ML VIAL SUBCUT ×4 (08:47→21:39)
[2020-10-14] MEDS: Nystatin Powder 15 GM BOTTLE 1 APPL TOPICAL ×2 (08:48→21:41)
[2020-10-14] MEDS: oxyCODONE HCl Immed Release 5 MG TABLET PO (08:57)
[2020-10-14] MEDS: DAPTOmycin 500 MG in 0.9 % Sodium Chloride 50 ML 100 MG IV (10:24)
[2020-10-14 11:18] VITALS: BP 108/55; PULSE 82; RESP 18; TEMP 37.6; O2SAT 93
[2020-10-14 11:32] LABS: Glucose, Whole Blood 270 mg/dL (60-115)
--- NOTE | 2020-10-14 11:33 | HO.VASCPN ---
Subjective Subjective Date of Service: 10/14/20 Patient reports: no new complaints and pain is less Interval history: pt. seen and examined. Fall over the weekend. No events Physical Exam Vital Signs: Vital Signs: Last Vital Signs Temp 99.6 F 10/14/20 11:18 Pulse 82 10/14/20 11:18 Resp 18 10/14/20 11:18 BP 108/55 L 10/14/20 11:18 Pulse Ox 93 10/14/20 11:18 Body Mass Index 36.7 Const: General: cooperative, healthy appearing and no acute distress Orientation/consciousness: oriented to person, oriented to place and oriented to time HENMT: Head: Yes normal to inspection Neck: Carotids: no bruits Chest: Chest palpation & inspection: normal inspection of the chest Resp: Effort & Inspection: normal respiratory effort and able to speak in complete sentences Auscultation: clear to auscultation bilaterally Cardio: Rate: regular rate Heart sounds: S1 normal heart sound present and S2 normal heart sound present GI: Inspection: Yes normal to inspection Skin: Other: right transmet flap necrotic and nonhealing. General skin exam: no rashes or lesions noted Wounds: no wounds Neuro: General: oriented to person, oriented to place, oriented to time and CN's II-XI intact bilaterally Extrem: General: Yes normal to inspection, Yes full ROM and Yes no clubbing, cyanosis or edema Psych: Appearance: grossly normal and well kempt Speech and movement: Normal speech and movement present Affect: normal affect Progress Note: A&P Assessment and plan (1) Diabetic foot ulcer: Status: Acute Assessment and Plan: pt. with nonhealing transmet amp. Flap is necrotic. Will require right below knee ampuation. Discussed with patient. He is in agreement. Discussed with hospitalist. Will schedule for tomorrow. Fall Risk Details Current Medications: Current Medications Generic Name Dose Route Start Last Admin Trade Name Freq PRN Reason Stop Dose Admin Acetaminophen 650 mg 10/12/20 16:08 Acetaminophen 325 Mg Tablet PO Q6H PRN PAINFEV Albuterol Sulfate 2.5 mg 10/10/20 16:23 Albuterol Sulfate (0.083%) 2.5 Mg/3 Ml Vial.Neb INHALE ONCE PRN Wheezing Bisacodyl 5 mg 10/10/20 09:00 10/14/20 08:48 Bisacodyl 5 Mg Tablet.Dr PO Not Given BID [facility] Docusate Sodium 100 mg 10/10/20 09:00 10/14/20 08:48 Docusate Sodium 100 Mg Capsule PO Not Given BID [facility] Enoxaparin Sodium 40 mg 10/12/20 13:00 10/13/20 12:42 Enoxaparin Sodium 40 Mg/0.4 Ml Syringe SUBCUT 40 mg Q24H TJ Administration Gabapentin 600 mg 10/10/20 21:00 10/13/20 20:53 Gabapentin 600 Mg Tablet PO 600 mg BEDTIME [facility] Administration Daptomycin 500 mg/ Sodium 60 mls @ 100 mls/hr 10/10/20 10:00 10/14/20 11:10 Chloride IV Infused Q24H [facility] Infusion Insulin Glargine 20 unit 10/12/20 21:00 10/13/20 20:54 Insulin Glargine,Hum.Rec.Anlog 100 Unit/Ml 10 Ml Vial SUBCUT 20 unit BEDTIME [facility] Administration Insulin Human Lispro 0 unit 10/11/20 08:15 10/14/20 08:47 Insulin Lispro 100 Unit/Ml 3 Ml Vial SUBCUT 4 unit QIDACHS [facility] Administration Protocol Lactulose 20 gm 10/10/20 02:19 Lactulose 20 Gm/30 Ml Solution PO DAILY PRN Constipation Morphine Sulfate 4 mg 10/10/20 17:34 Morphine Sulfate 4 Mg/Ml Cartridge IVPUSH Q3H PRN Pain, Severe (Pain Scale 7-10) Nystatin 1 appl 10/11/20 11:30 10/14/20 08:48 Nystatin Powder 15 Gm Bottle TOPICAL 1 appl BID [facility] Administration Protocol Ondansetron HCl 4 mg 10/10/20 17:43 Ondansetron Hcl 4 Mg/2 Ml Vial IVPUSH ONCE PRN Nausea and Vomiting Oxycodone HCl 5 mg 10/10/20 05:53 10/14/20 08:57 Oxycodone Hcl Immed Release 5 Mg Tablet PO 5 mg Q6H PRN Administration Breakthrough Pain Oxycodone HCl 5 mg 10/10/20 17:50 Oxycodone Hcl Immed Release 5 Mg Tablet PO ONCE PRN Pain, Severe (Pain Scale 7-10) Pharmacy Consult 1 each 10/09/20 16:38 Consult Rx Perform Med Rec MISCELLANE ONCE PRN Consult order Polyethylene Glycol 17 gm 10/10/20 02:19 Polyethylene Glycol 3350 17 Gm Powd.Pack PO DAILY PRN Constipation Sodium Chloride 3 ml 10/10/20 08:00 10/14/20 08:47 0.9 % Sodium Chloride Flush 3 Ml Syringe IVFLUSH 3 ml QSHIFT TJ Administration Vitamin D 25 mcg 10/10/20 09:00 10/14/20 08:47 Cholecalciferol (Vitamin D3) 25 Mcg Tablet PO 25 mcg DAILY TJ Administration Time Spent With Patient Time: Total time spent is greater than 50% in coordination of care (as documented) at patient's floor/unit and/or counseling patient: Time with patient: 15 - 24 minutes
[2020-10-14] MEDS: Enoxaparin Sodium 40 MG/0.4 ML SYRINGE SUBCUT (12:06)
--- NOTE | 2020-10-14 12:42 | MHC.CM.PN ---
PER REVIEW OF REPORTS, PATIENT HAS AGREED TO [facility]KA. [facility] UPDATED AND REQUEST FOR FACILITY TO CONTINUE FOLLOWING.
--- NOTE | 2020-10-14 13:27 | HO.PM.IMPN ---
Subjective Subjective Date of Service: 10/14/20 Interval History: Patient seen and examined at bedside Patient reported pain in his foot ROS General - no fevers or chills Cardiovascular - no chest pain Respiratory - no shortness of breath or cough Abdominal- no abdominal pain, nausea, vomiting, diarrhea Review of Systems Patient denies any chest pain or shortness of breath or abdominal pain or fever chills or nausea or vomiting. Physical Exam Vital Signs: Vital Signs: Last Vital Signs Temp 99.6 F 10/14/20 11:18 Pulse 82 10/14/20 11:18 Resp 18 10/14/20 11:18 BP 108/55 L 10/14/20 11:18 Pulse Ox 93 10/14/20 11:18 Body Mass Index 36.7 Const: Other: General - no acute distress, appears comfortable Cardiovascular - regular rate and rhythm, S1-S2 Lungs - normal respiratory effort, clear to auscultation bilaterally, no wheezing Abdomen - soft, non-tender, no rebound or guarding Extremities - dressing in place Neuro - awake and alert, no focal deficits Cardio: Other: General - no acute distress, appears comfortable Cardiovascular - regular rate and rhythm, S1-S2 Lungs - normal respiratory effort, clear to auscultation bilaterally, no wheezing Abdomen - soft, non-tender, no rebound or guarding Extremities - dressing in place Neuro - awake and alert, no focal deficits Objective Data Current Medications Generic Name Dose Route Start Last Admin Trade Name Freq PRN Reason Stop Dose Admin Acetaminophen 650 mg 10/12/20 16:08 Acetaminophen 325 Mg Tablet PO Q6H PRN PAINFEV Albuterol Sulfate 2.5 mg 10/10/20 16:23 Albuterol Sulfate (0.083%) 2.5 Mg/3 Ml Vial.Neb INHALE ONCE PRN Wheezing Bisacodyl 5 mg 10/10/20 09:00 10/14/20 08:48 Bisacodyl 5 Mg Tablet.Dr PO Not Given BID TJ Docusate Sodium 100 mg 10/10/20 09:00 10/14/20 08:48 Docusate Sodium 100 Mg Capsule PO Not Given BID TJ Enoxaparin Sodium 40 mg 10/12/20 13:00 10/14/20 12:06 Enoxaparin Sodium 40 Mg/0.4 Ml Syringe SUBCUT 40 mg Q24H TJ Administration Gabapentin 600 mg 10/10/20 21:00 10/13/20 20:53 Gabapentin 600 Mg Tablet PO 600 mg BEDTIME TJ Administration Daptomycin 500 mg/ Sodium 60 mls @ 100 mls/hr 10/10/20 10:00 10/14/20 11:10 Chloride IV Infused Q24H [facility] Infusion Insulin Glargine 20 unit 10/12/20 21:00 10/13/20 20:54 Insulin Glargine,Hum.Rec.Anlog 100 Unit/Ml 10 Ml Vial SUBCUT 20 unit BEDTIME TJ Administration Insulin Human Lispro 0 unit 10/11/20 08:15 10/14/20 12:05 Insulin Lispro 100 Unit/Ml 3 Ml Vial SUBCUT 6 unit QIDACHS [facility] Administration Protocol Lactulose 20 gm 10/10/20 02:19 Lactulose 20 Gm/30 Ml Solution PO DAILY PRN Constipation Morphine Sulfate 4 mg 10/10/20 17:34 Morphine Sulfate 4 Mg/Ml Cartridge IVPUSH Q3H PRN Pain, Severe (Pain Scale 7-10) Nystatin 1 appl 10/11/20 11:30 10/14/20 08:48 Nystatin Powder 15 Gm Bottle TOPICAL 1 appl BID TJ Administration Protocol Ondansetron HCl 4 mg 10/10/20 17:43 Ondansetron Hcl 4 Mg/2 Ml Vial IVPUSH ONCE PRN Nausea and Vomiting Oxycodone HCl 5 mg 10/10/20 05:53 10/14/20 08:57 Oxycodone Hcl Immed Release 5 Mg Tablet PO 5 mg Q6H PRN Administration Breakthrough Pain Oxycodone HCl 5 mg 10/10/20 17:50 Oxycodone Hcl Immed Release 5 Mg Tablet PO ONCE PRN Pain, Severe (Pain Scale 7-10) Pharmacy Consult 1 each 10/09/20 16:38 Consult Rx Perform Med Rec MISCELLANE ONCE PRN Consult order Polyethylene Glycol 17 gm 10/10/20 02:19 Polyethylene Glycol 3350 17 Gm Powd.Pack PO DAILY PRN Constipation Sodium Chloride 3 ml 10/10/20 08:00 10/14/20 08:47 0.9 % Sodium Chloride Flush 3 Ml Syringe IVFLUSH 3 ml QSHIFT [facility] Administration Vitamin D 25 mcg 10/10/20 09:00 10/14/20 08:47 Cholecalciferol (Vitamin D3) 25 Mcg Tablet PO 25 mcg DAILY TJ Administration Labs CBC & Chem 7: 10/13/20 06:10 10/13/20 06:10 Microbiology Microbiology Results: Microbiology 10/09/20 18:16 Blood - Venous Blood Culture - Preliminary No growth after 48 hours. 10/09/20 18:15 Blood - Venous Blood Culture - Preliminary No growth after 48 hours. Assessment and Plan (1) Diabetic foot ulcer: Status: Acute (2) MRSA bacteremia: Status: Acute Assessment and Plan: This is a 60 yo M with a PMH of DM, MRSA bacteremia due to diabetic foot infection (currently being treated with daptomycin) who is admitted for: 1. Diabetic foot infection s/p TMA still with poor healing continue dapotmycin vascular surgery following plan for BKA tomorrow 2.MRSA bactermia (from prior admit) Daptomcyin for now - End date from prior infection was 10/22/20. blood cx from this admission negative 3. DM diabetic diet continue sliding scale and lantus monitor blood glucose 4. Recent thrombocytopenia was suspected due to vancomcyin now normalized monitor CBCs 5. History of MGUS outpatient oncology f/u 6. HypoNa sodium 129 today monitor sodium DVT pptx, lovenox
[2020-10-14 15:17] LABS: Anion Gap 13 (12-20); Blood Urea Nitrogen 14 mg/dL (9-16); Calcium 7.8 mg/dL (8.4-10.2); Carbon Dioxide 27 mmol/L (22-29); Chloride 94 mmol/L (96-108); Estimated Glomerular Filt Rate > 60; Glucose Random 302 mg/dL (60-115); Potassium 4.4 mmol/L (3.3-5.1); Sodium 130 mmol/L (135-145)
[2020-10-14 16:00] VITALS: BP 143/62; PULSE 80; RESP 18; TEMP 36.9; O2SAT 94
[2020-10-14 16:47] LABS: Glucose, Whole Blood 288 mg/dL (60-115)
[2020-10-14 19:53] VITALS: BP 113/64; PULSE 79; RESP 18; TEMP 37.3; O2SAT 95
[2020-10-14 21:05] LABS: Glucose, Whole Blood 225 mg/dL (60-115)
[2020-10-14] MEDS: Insulin Glargine,Hum.rec.anlog 100 UNIT/ML 10 ML VIAL 20 UNIT SUBCUT (21:38)
[2020-10-14] MEDS: bisacodyL 5 MG TABLET.DR PO (21:39)
[2020-10-14] MEDS: Gabapentin 600 MG TABLET PO (21:40)
[2020-10-14] MEDS: Docusate Sodium 100 MG CAPSULE PO (21:40)
[2020-10-15] VITALS (16 sets, daily range): BP systolic 93–131; BP diastolic 49–80; PULSE 71–95; RESP 14–20; TEMP 36–37.7; O2SAT 91–99
[2020-10-15 07:59] LABS: Glucose, Whole Blood 226 mg/dL (60-115)
[2020-10-15] MEDS: Insulin Lispro 100 UNIT/ML 3 ML VIAL SUBCUT ×3 (08:11→20:42)
[2020-10-15] MEDS: Cholecalciferol (Vitamin D3) 25 MCG TABLET PO (08:11)
[2020-10-15] MEDS: bisacodyL 5 MG TABLET.DR PO ×2 (08:11→20:43)
[2020-10-15] MEDS: Docusate Sodium 100 MG CAPSULE PO ×2 (08:11→20:42)
[2020-10-15] MEDS: 0.9 % Sodium Chloride Flush 3 ML SYRINGE IVFLUSH (08:12)
[2020-10-15] MEDS: DAPTOmycin 500 MG in 0.9 % Sodium Chloride 50 ML 100 MG IV (10:45)
--- NOTE | 2020-10-15 11:12 | MHC.CM.PN ---
Addendum entered by Krista Marie RN 10/15/20 13:19: PT SCHEDULED FOR BKA TODAY AT 3:30PM. Original Note: PER MULTIDISCIPLINARY ROUNDS PT WILL HAVE R BKA TODAY AND ANTICIPATED D/C IN 1-2 MORE DAYS, SNF HAS BEEN UPDATED. DISCHARGE PLAN: SHORT TERM REHAB W/BLS TRANSPORT
[2020-10-15 11:51] LABS: Glucose, Whole Blood 206 mg/dL (60-115)
--- NOTE | 2020-10-15 12:37 | P.PNIM_ITS ---
Subjective Subjective Date of Service: 10/15/20 Interval History: Patient seen and examined at bedside Patient reported pain in his foot Constitutional Constitutional: Reports no additional constitutional complaints ENT Ears, Nose, Mouth, and Throat: Reports Normal hearing present Cardiovascular Cardiovascular: Denies chest pain, Denies chest pain at rest, Denies chest pain with activity and Denies pedal edema Respiratory Respiratory: Denies cough Gastrointestinal Gastrointestinal: Denies abdominal pain Musculoskeletal Musculoskeletal: Denies abnormal gait, Denies muscle cramps and Denies radiating pain into limb Integumentary/Breasts Skin/Breast: Denies skin ulcer and Denies wounds Neurologic Neurologic: Reports Normal hearing present and Denies abnormal gait Psychiatric Psychiatric: Reports no additional psychiatric complaints Physical Exam Vital Signs: Vital Signs: Last Vital Signs Temp 98.2 F 10/15/20 11:36 Pulse 71 10/15/20 11:36 Resp 17 10/15/20 11:36 BP 116/58 L 10/15/20 11:36 Pulse Ox 92 10/15/20 11:36 Body Mass Index 36.7 Cardio: Other: General - no acute distress, appears comfortable Cardiovascular - regular rate and rhythm, S1-S2 Lungs - normal respiratory effort, clear to auscultation bilaterally, no wheezing Abdomen - soft, non-tender, no rebound or guarding Extremities - dressing in place Neuro - awake and alert, no focal deficits foot ulcer s/p TMA Neuro: Cranial nerves: Yes Normal hearing present Objective Data Current Medications Generic Name Dose Route Start Last Admin Trade Name Freq PRN Reason Stop Dose Admin Acetaminophen 650 mg 10/12/20 16:08 Acetaminophen 325 Mg Tablet PO Q6H PRN PAINFEV Albuterol Sulfate 2.5 mg 10/10/20 16:23 Albuterol Sulfate (0.083%) 2.5 Mg/3 Ml Vial.Neb INHALE ONCE PRN Wheezing Bisacodyl 5 mg 10/10/20 09:00 10/15/20 08:11 Bisacodyl 5 Mg Tablet.Dr PO 5 mg BID TJ Administration Docusate Sodium 100 mg 10/10/20 09:00 10/15/20 08:11 Docusate Sodium 100 Mg Capsule PO 100 mg BID TJ Administration Enoxaparin Sodium 40 mg 10/12/20 13:00 10/15/20 10:45 Enoxaparin Sodium 40 Mg/0.4 Ml Syringe SUBCUT Not Given Q24H [facility] Gabapentin 600 mg 10/10/20 21:00 10/14/20 21:40 Gabapentin 600 Mg Tablet PO 600 mg BEDTIME [facility] Administration Daptomycin 500 mg/ Sodium 60 mls @ 100 mls/hr 10/10/20 10:00 10/15/20 12:00 Chloride IV Infused Q24H [facility] Infusion Insulin Glargine 20 unit 10/12/20 21:00 10/14/20 21:38 Insulin Glargine,Hum.Rec.Anlog 100 Unit/Ml 10 Ml Vial SUBCUT 20 unit BEDTIME [facility] Administration Insulin Human Lispro 0 unit 10/11/20 08:15 10/15/20 11:52 Insulin Lispro 100 Unit/Ml 3 Ml Vial SUBCUT 4 unit QIDACHS [facility] Administration Protocol Lactulose 20 gm 10/10/20 02:19 Lactulose 20 Gm/30 Ml Solution PO DAILY PRN Constipation Morphine Sulfate 4 mg 10/10/20 17:34 Morphine Sulfate 4 Mg/Ml Cartridge IVPUSH Q3H PRN Pain, Severe (Pain Scale 7-10) Nystatin 1 appl 10/11/20 11:30 10/15/20 10:12 Nystatin Powder 15 Gm Bottle TOPICAL Not Given BID [facility] Protocol Ondansetron HCl 4 mg 10/10/20 17:43 Ondansetron Hcl 4 Mg/2 Ml Vial IVPUSH ONCE PRN Nausea and Vomiting Oxycodone HCl 5 mg 10/10/20 17:50 Oxycodone Hcl Immed Release 5 Mg Tablet PO ONCE PRN Pain, Severe (Pain Scale 7-10) Pharmacy Consult 1 each 10/09/20 16:38 Consult Rx Perform Med Rec MISCELLANE ONCE PRN Consult order Polyethylene Glycol 17 gm 10/10/20 02:19 Polyethylene Glycol 3350 17 Gm Powd.Pack PO DAILY PRN Constipation Sodium Chloride 3 ml 10/10/20 08:00 10/15/20 08:12 0.9 % Sodium Chloride Flush 3 Ml Syringe IVFLUSH 3 ml QSHIFT [facility] Administration Vitamin D 25 mcg 10/10/20 09:00 10/15/20 08:11 Cholecalciferol (Vitamin D3) 25 Mcg Tablet PO 25 mcg DAILY [facility] Administration Labs CBC & Chem 7: 10/13/20 06:10 10/14/20 14:30 Microbiology Microbiology Results: Microbiology 10/09/20 18:16 Blood - Venous Blood Culture - Final No growth after 5 days. 10/09/20 18:15 Blood - Venous Blood Culture - Final No growth after 5 days. Assessment and Plan (1) Diabetic foot ulcer: Status: Acute (2) MRSA bacteremia: Status: Acute Assessment and Plan: This is a 60 yo M with a PMH of DM, MRSA bacteremia due to diabetic foot infection (currently being treated with daptomycin) who is admitted for: 1. Diabetic foot infection s/p TMA still with poor healing plan for BKA today continue dapotmycin vascular surgery following plan for BKA tomorrow monitor CPK 2.MRSA bactermia (from prior admit) Daptomcyin for now - End date from prior infection was 10/22/20. blood cx from this admission negative 3. DM diabetic diet continue sliding scale and lantus monitor blood glucose 4. Recent thrombocytopenia was suspected due to vancomcyin now normalized monitor CBCs 5. History of MGUS outpatient oncology f/u 6. HypoNa sodium 130 today monitor sodium DVT pptx, lovenox
[2020-10-15 14:20] LABS: Glucose, Whole Blood 180 mg/dL (60-115)
--- NOTE | 2020-10-15 14:35 | P.CONAN_ITS ---
[facility] Active Problems Active Problems: All Active Problems (Updated 10/13/20 @ 10:31 by Troy Terrazas MD) Diabetic foot ulcer (Acute) Thrombocytopenia (Acute) MRSA bacteremia (Acute) MGUS (monoclonal gammopathy of unknown significance) (Acute) Drug-induced thrombocytopenia (Acute) Hyperlipidemia (Acute) Hypertension (Acute) Past Medical History Medical History Amputated great toe of right foot Back pain Drug-induced thrombocytopenia Hyperlipidemia Hypertension IDDM (insulin dependent diabetes mellitus) MGUS (monoclonal gammopathy of unknown significance) Neck pain Peripheral neuropathy Psychiatric diagnosis Sleep apnea Surgical History Surgical History H/O colonoscopy Hx of angioplasty Hx of appendectomy Hx of foot surgery Hx of tonsillectomy Hx of umbilical hernia repair Social History Social History Household Members: None Housing: Apartment Alcohol intake: never Smoking Status: Never smoker Second Hand Smoke Exposure: No Advance Directives: No Advance Directives Information Provided: No Advance Directives Date on File: 09/27/20 service: Yes Current occupational status: unemployed Meds Allergies Allergy/AdvReac Type Severity Reaction Status Date / Time vancomycin AdvReac Severe thrombocyto Verified 10/01/20 13:53 penia Active Medications: Current Medications Generic Name Dose Route Start Last Admin Trade Name Freq PRN Reason Stop Dose Admin Acetaminophen 650 mg 10/12/20 16:08 Acetaminophen 325 Mg Tablet PO Q6H PRN PAINFEV Albuterol Sulfate 2.5 mg 10/10/20 16:23 Albuterol Sulfate (0.083%) 2.5 Mg/3 Ml Vial.Neb INHALE ONCE PRN Wheezing Bisacodyl 5 mg 10/10/20 09:00 10/15/20 08:11 Bisacodyl 5 Mg Tablet.Dr PO 5 mg BID TJ Administration Docusate Sodium 100 mg 10/10/20 09:00 10/15/20 08:11 Docusate Sodium 100 Mg Capsule PO 100 mg BID TJ Administration Enoxaparin Sodium 40 mg 10/12/20 13:00 10/15/20 10:45 Enoxaparin Sodium 40 Mg/0.4 Ml Syringe SUBCUT Not Given Q24H TJ Gabapentin 600 mg 10/10/20 21:00 10/14/20 21:40 Gabapentin 600 Mg Tablet PO 600 mg BEDTIME [facility] Administration Daptomycin 500 mg/ Sodium 60 mls @ 100 mls/hr 10/10/20 10:00 10/15/20 12:00 Chloride IV Infused Q24H [facility] Infusion Insulin Glargine 20 unit 10/12/20 21:00 10/14/20 21:38 Insulin Glargine,Hum.Rec.Anlog 100 Unit/Ml 10 Ml Vial SUBCUT 20 unit BEDTIME [facility] Administration Insulin Human Lispro 0 unit 10/11/20 08:15 10/15/20 11:52 Insulin Lispro 100 Unit/Ml 3 Ml Vial SUBCUT 4 unit QIDACHS [facility] Administration Protocol Lactulose 20 gm 10/10/20 02:19 Lactulose 20 Gm/30 Ml Solution PO DAILY PRN Constipation Morphine Sulfate 4 mg 10/10/20 17:34 Morphine Sulfate 4 Mg/Ml Cartridge IVPUSH Q3H PRN Pain, Severe (Pain Scale 7-10) Nystatin 1 appl 10/11/20 11:30 10/15/20 10:12 Nystatin Powder 15 Gm Bottle TOPICAL Not Given BID [facility] Protocol Ondansetron HCl 4 mg 10/10/20 17:43 Ondansetron Hcl 4 Mg/2 Ml Vial IVPUSH ONCE PRN Nausea and Vomiting Oxycodone HCl 5 mg 10/10/20 17:50 Oxycodone Hcl Immed Release 5 Mg Tablet PO ONCE PRN Pain, Severe (Pain Scale 7-10) Pharmacy Consult 1 each 10/09/20 16:38 Consult Rx Perform Med Rec MISCELLANE ONCE PRN Consult order Polyethylene Glycol 17 gm 10/10/20 02:19 Polyethylene Glycol 3350 17 Gm Powd.Pack PO DAILY PRN Constipation Sodium Chloride 3 ml 10/10/20 08:00 10/15/20 08:12 0.9 % Sodium Chloride Flush 3 Ml Syringe IVFLUSH 3 ml QSHIFT [facility] Administration Vitamin D 25 mcg 10/10/20 09:00 10/15/20 08:11 Cholecalciferol (Vitamin D3) 25 Mcg Tablet PO 25 mcg DAILY [facility] Administration Home Medications Medication Instructions Recorded Confirmed Last Taken Type Victoza 3-Chet 1.8 mg SUBCUT DAILY 07/17/20 10/09/20 Unknown History aspirin 81 mg PO DAILY 07/17/20 10/09/20 Unknown History gabapentin 600 mg PO BEDTIME 07/17/20 10/09/20 Unknown History lisinopril 5 mg PO DAILY 07/17/20 10/09/20 Unknown History metformin 1,000 mg PO BID 07/17/20 10/09/20 Unknown History bisacodyl 5 mg PO BID 09/04/20 10/09/20 Unknown History cholecalciferol (vitamin D3) 25 mcg PO DAILY 09/04/20 10/09/20 Unknown History blood sugar diagnostic #10 ea 10/01/20 Unknown History fluoxetine 20 mg capsule 20 mg PO DAILY 10/01/20 10/09/20 Unknown History atorvastatin 40 mg PO BEDTIME 10/09/20 10/09/20 Unknown History insulin degludec [Tresiba SUBCUT DAILY 10/09/20 Unknown History FlexTouch U-100] Exam Exam Date and Time: October 15, 2020 1435 Height,Weight and Vital Signs: Height 6 ft 2 in Weight 129.7 kg Last Vital Signs Temp 99.9 F 10/15/20 14:25 Pulse 83 10/15/20 14:25 Resp 20 10/15/20 14:25 BP 128/72 10/15/20 14:25 Pulse Ox 96 10/15/20 14:25 Pertinent Lab Results Pertinent Lab Results: Laboratory Tests 10/09/20 10/09/20 10/09/20 17:59 18:15 18:15 WBC 17.4 H RBC 3.43 L Hgb 11.0 L Hct 31.5 L MCV 91.8 MCH 32.1 MCHC 34.9 RDW 11.8 Plt Count 344 MPV 9.9 Immature Gran % (Auto) 1.6 H Neut % (Auto) 80.6 H Lymph % (Auto) 8.0 L [place] % (Auto) 8.7 Eos % (Auto) 0.8 Baso % (Auto) 0.3 Lymph # (Auto) 1.4 [place] # (Auto) 1.5 H Eos # (Auto) 0.1 Baso # (Auto) 0.1 Abs Immat Gran (auto) 0.28 H Absolute Neuts (auto) 14.0 H Absolute Nucleated RBC 0.000 Nucleated RBC % (auto) 0.0 Smear Tech's Comments VERIFIED PT 16.5 H INR 1.4 H APTT 31.9 Sodium Potassium Chloride Carbon Dioxide Anion Gap BUN Creatinine Estim Creat Clear Calc Estimated GFR POC Glucose Random Glucose Lactic Acid Lactic Acid Fup @ 2Hr Lactic Acid Fup @ 4Hr Calcium Total Bilirubin AST ALT Alkaline Phosphatase Total Creatine Kinase Total Protein Albumin Urine Color Urine Appearance Urine pH Ur Specific [place] Urine Protein Urine Glucose (UA) Urine Ketones Urine Blood Urine Nitrite Ur Leukocyte Esterase Urine RBC Urine WBC Ur Squamous Epith Cells Ur Renal Epithelial Cell Urine Bacteria Hyaline Casts Granular Casts COVID-19 (JOSE) Negative COVID-19 Clin Com See Note Blood Type Antibody Screen 10/09/20 10/09/20 10/09/20 18:15 18:16 23:09 WBC RBC Hgb Hct MCV MCH MCHC RDW Plt Count MPV Immature Gran % (Auto) Neut % (Auto) Lymph % (Auto) [place] % (Auto) Eos % (Auto) Baso % (Auto) Lymph # (Auto) [place] # (Auto) Eos # (Auto) Baso # (Auto) Abs Immat Gran (auto) Absolute Neuts (auto) Absolute Nucleated RBC Nucleated RBC % (auto) Smear Tech's Comments PT INR APTT Sodium 130 L Potassium 4.5 Chloride 94 L Carbon Dioxide 23 Anion Gap 18 BUN 29 H Creatinine 1.56 H Estim Creat Clear Calc 71.1 Estimated GFR 45 POC Glucose Random Glucose 302 H Lactic Acid 2.5 H* Lactic Acid Fup @ 2Hr 2.6 H* Lactic Acid Fup @ 4Hr Calcium 8.8 D Total Bilirubin 0.6 AST 29 ALT 61 H Alkaline Phosphatase 126 H Total Creatine Kinase Total Protein 6.7 Albumin 3.0 L Urine Color Urine Appearance Urine pH Ur Specific [place] Urine Protein Urine Glucose (UA) Urine Ketones Urine Blood Urine Nitrite Ur Leukocyte Esterase Urine RBC Urine WBC Ur Squamous Epith Cells Ur Renal Epithelial Cell Urine Bacteria Hyaline Casts Granular Casts COVID-19 (JOSE) COVID-19 Clin Com Blood Type Antibody Screen 10/10/20 10/10/20 10/10/20 00:59 04:17 05:58 WBC RBC Hgb Hct MCV MCH MCHC RDW Plt Count MPV Immature Gran % (Auto) Neut % (Auto) Lymph % (Auto) [place] % (Auto) Eos % (Auto) Baso % (Auto) Lymph # (Auto) [place] # (Auto) Eos # (Auto) Baso # (Auto) Abs Immat Gran (auto) Absolute Neuts (auto) Absolute Nucleated RBC Nucleated RBC % (auto) Smear Tech's Comments PT INR APTT Sodium Potassium Chloride Carbon Dioxide Anion Gap BUN Creatinine Estim Creat Clear Calc Estimated GFR POC Glucose 302 H Random Glucose Lactic Acid Lactic Acid Fup @ 2Hr Lactic Acid Fup @ 4Hr 0.9 Calcium Total Bilirubin AST ALT Alkaline Phosphatase Total Creatine Kinase Total Protein Albumin Urine Color DARK YELLOW Urine Appearance CLEAR Urine pH 5.0 Ur Specific [place] >= 1.030 H Urine Protein TRACE Urine Glucose (UA) 100 H Urine Ketones NEG Urine Blood NEG Urine Nitrite NEG Ur Leukocyte Esterase NEG Urine RBC 0-2 Urine WBC 1-4 Ur Squamous Epith Cells TRACE Ur Renal Epithelial Cell 1+ Urine Bacteria TRACE Hyaline Casts >50 Granular Casts 1-4 COVID-19 (JOSE) COVID-19 Clin Com Blood Type Antibody Screen 10/10/20 10/10/20 10/10/20 09:03 09:03 09:03 WBC 12.3 H RBC 3.31 L Hgb 10.5 L Hct 30.8 L MCV 93.1 MCH 31.7 MCHC 34.1 RDW 11.9 Plt Count 354 MPV 9.7 Immature Gran % (Auto) 1.8 H Neut % (Auto) 73.6 H Lymph % (Auto) 13.9 L [place] % (Auto) 8.5 Eos % (Auto) 2.0 Baso % (Auto) 0.2 Lymph # (Auto) 1.7 [place] # (Auto) 1.1 Eos # (Auto) 0.3 Baso # (Auto) 0.0 Abs Immat Gran (auto) 0.22 H Absolute Neuts (auto) 9.1 H Absolute Nucleated RBC 0.000 Nucleated RBC % (auto) 0.0 Smear Tech's Comments PT 16.4 H INR 1.4 H APTT Sodium 131 L Potassium 5.1 Chloride 96 Carbon Dioxide 26 Anion Gap 14 BUN 30 H Creatinine 1.29 Estim Creat Clear Calc 86.0 Estimated GFR 57 POC Glucose Random Glucose 267 H Lactic Acid Lactic Acid Fup @ 2Hr Lactic Acid Fup @ 4Hr Calcium 8.3 L Total Bilirubin AST ALT Alkaline Phosphatase Total Creatine Kinase Total Protein Albumin Urine Color Urine Appearance Urine pH Ur Specific [place] Urine Protein Urine Glucose (UA) Urine Ketones Urine Blood Urine Nitrite Ur Leukocyte Esterase Urine RBC Urine WBC Ur Squamous Epith Cells Ur Renal Epithelial Cell Urine Bacteria Hyaline Casts Granular Casts COVID-19 (JOSE) [email or web address] Blood Type Antibody Screen 10/10/20 10/10/20 10/10/20 12:10 15:12 20:25 WBC RBC Hgb Hct MCV MCH MCHC RDW Plt Count MPV Immature Gran % (Auto) Neut % (Auto) Lymph % (Auto) [place] % (Auto) Eos % (Auto) Baso % (Auto) Lymph # (Auto) [place] # (Auto) Eos # (Auto) Baso # (Auto) Abs Immat Gran (auto) Absolute Neuts (auto) Absolute Nucleated RBC Nucleated RBC % (auto) Smear Tech's Comments PT INR APTT Sodium Potassium Chloride Carbon Dioxide Anion Gap BUN Creatinine Estim Creat Clear Calc Estimated GFR POC Glucose 220 H 193 H 256 H Random Glucose Lactic Acid Lactic Acid Fup @ 2Hr Lactic Acid Fup @ 4Hr Calcium Total Bilirubin AST ALT Alkaline Phosphatase Total Creatine Kinase Total Protein Albumin Urine Color Urine Appearance Urine pH Ur Specific [place] Urine Protein Urine Glucose (UA) Urine Ketones Urine Blood Urine Nitrite Ur Leukocyte Esterase Urine RBC Urine WBC Ur Squamous Epith Cells Ur Renal Epithelial Cell Urine Bacteria Hyaline Casts Granular Casts COVID-19 ([facility]) [place] Blood Type Antibody Screen 10/11/20 10/11/20 10/11/20 07:48 11:39 16:46 WBC RBC Hgb Hct MCV MCH MCHC RDW Plt Count MPV Immature Gran % (Auto) Neut % (Auto) Lymph % (Auto) [place] % (Auto) Eos % (Auto) Baso % (Auto) Lymph # (Auto) [place] # (Auto) Eos # (Auto) Baso # (Auto) Abs Immat Gran (auto) Absolute Neuts (auto) Absolute Nucleated RBC Nucleated RBC % (auto) Smear Tech's Comments PT INR APTT Sodium Potassium Chloride Carbon Dioxide Anion Gap BUN Creatinine Estim Creat Clear Calc Estimated GFR POC Glucose 238 H 302 H 332 H Random Glucose Lactic Acid Lactic Acid Fup @ 2Hr Lactic Acid Fup @ 4Hr Calcium Total Bilirubin AST ALT Alkaline Phosphatase Total Creatine Kinase Total Protein Albumin Urine Color Urine Appearance Urine pH Ur Specific [place] Urine Protein Urine Glucose (UA) Urine Ketones Urine Blood Urine Nitrite Ur Leukocyte Esterase Urine RBC Urine WBC Ur Squamous Epith Cells Ur Renal Epithelial Cell Urine Bacteria Hyaline Casts Granular Casts COVID-19 ([facility]) [place] Blood Type Antibody Screen 10/11/20 10/12/20 10/12/20 19:37 06:22 06:22 WBC 13.8 H RBC 2.93 L Hgb 9.3 L Hct 27.2 L MCV 92.8 MCH 31.7 MCHC 34.2 RDW 11.8 Plt Count 362 MPV 10.0 Immature Gran % (Auto) Neut % (Auto) Lymph % (Auto) [place] % (Auto) Eos % (Auto) Baso % (Auto) Lymph # (Auto) [place] # (Auto) Eos # (Auto) Baso # (Auto) Abs Immat Gran (auto) Absolute Neuts (auto) Absolute Nucleated RBC 0.000 Nucleated RBC % (auto) 0.0 Smear Tech's Comments PT INR APTT Sodium 130 L Potassium 4.4 Chloride 98 Carbon Dioxide 24 Anion Gap 12 BUN 13 D Creatinine 0.83 Estim Creat Clear Calc 133.7 Estimated GFR > 60 POC Glucose 363 H* Random Glucose 244 H Lactic Acid Lactic Acid Fup @ 2Hr Lactic Acid Fup @ 4Hr Calcium 8.1 L Total Bilirubin AST ALT Alkaline Phosphatase Total Creatine Kinase Total Protein Albumin Urine Color Urine Appearance Urine pH Ur Specific [place] Urine Protein Urine Glucose (UA) Urine Ketones Urine Blood Urine Nitrite Ur Leukocyte Esterase Urine RBC Urine WBC Ur Squamous Epith Cells Ur Renal Epithelial Cell Urine Bacteria Hyaline Casts Granular Casts COVID-19 (JOSE) COVID-19 Clin [facility] Blood Type Antibody Screen 10/12/20 10/12/20 10/12/20 07:43 11:44 16:21 WBC RBC Hgb Hct MCV MCH MCHC RDW Plt Count MPV Immature Gran % (Auto) Neut % (Auto) Lymph % (Auto) [place] % (Auto) Eos % (Auto) Baso % (Auto) Lymph # (Auto) [place] # (Auto) Eos # (Auto) Baso # (Auto) Abs Immat Gran (auto) Absolute Neuts (auto) Absolute Nucleated RBC Nucleated RBC % (auto) Smear Tech's Comments PT INR APTT Sodium Potassium Chloride Carbon Dioxide Anion Gap BUN Creatinine Estim Creat Clear Calc Estimated GFR POC Glucose 226 H 363 H* 317 H Random Glucose Lactic Acid Lactic Acid Fup @ 2Hr Lactic Acid Fup @ 4Hr Calcium Total Bilirubin AST ALT Alkaline Phosphatase Total Creatine Kinase Total Protein Albumin Urine Color Urine Appearance Urine pH Ur Specific [place] Urine Protein Urine Glucose (UA) Urine Ketones Urine Blood Urine Nitrite Ur Leukocyte Esterase Urine RBC Urine WBC Ur Squamous Epith Cells Ur Renal Epithelial Cell Urine Bacteria Hyaline Casts Granular Casts COVID-19 (JOSE) COVID-19 [facility] Com Blood Type Antibody Screen 10/12/20 10/13/20 10/13/20 19:46 06:10 06:10 WBC 14.5 H RBC 3.08 L Hgb 9.8 L Hct 28.7 L MCV 93.2 MCH 31.8 MCHC 34.1 RDW 11.9 Plt Count 384 MPV 10.2 Immature Gran % (Auto) Neut % (Auto) Lymph % (Auto) [place] % (Auto) Eos % (Auto) Baso % (Auto) Lymph # (Auto) [place] # (Auto) Eos # (Auto) Baso # (Auto) Abs Immat Gran (auto) Absolute Neuts (auto) Absolute Nucleated RBC 0.000 Nucleated RBC % (auto) 0.0 Smear Tech's Comments PT INR APTT Sodium 129 L Potassium 4.6 Chloride 95 L Carbon Dioxide 24 Anion Gap 15 BUN 13 Creatinine 0.83 Estim Creat Clear Calc 133.7 Estimated GFR > 60 POC Glucose 324 H Random Glucose 261 H Lactic Acid Lactic Acid Fup @ 2Hr Lactic Acid Fup @ 4Hr Calcium 7.9 L Total Bilirubin AST ALT Alkaline Phosphatase Total Creatine Kinase Total Protein Albumin Urine Color Urine Appearance Urine pH Ur Specific [place] Urine Protein Urine Glucose (UA) Urine Ketones Urine Blood Urine Nitrite Ur Leukocyte Esterase Urine RBC Urine WBC Ur Squamous Epith Cells Ur Renal Epithelial Cell Urine Bacteria Hyaline Casts Granular Casts COVID-19 (JOSE) COVID-19 [facility] Blood Type Antibody Screen 10/13/20 10/13/20 10/13/20 07:24 11:32 16:34 WBC RBC Hgb Hct MCV MCH MCHC RDW Plt Count MPV Immature Gran % (Auto) Neut % (Auto) Lymph % (Auto) [place] % (Auto) Eos % (Auto) Baso % (Auto) Lymph # (Auto) [place] # (Auto) Eos # (Auto) Baso # (Auto) Abs Immat Gran (auto) Absolute Neuts (auto) Absolute Nucleated RBC Nucleated RBC % (auto) Smear Tech's Comments PT INR APTT Sodium Potassium Chloride Carbon Dioxide Anion Gap BUN Creatinine Estim Creat Clear Calc Estimated GFR POC Glucose 240 H 283 H 349 H Random Glucose Lactic Acid Lactic Acid Fup @ 2Hr Lactic Acid Fup @ 4Hr Calcium Total Bilirubin AST ALT Alkaline Phosphatase Total Creatine Kinase Total Protein Albumin Urine Color Urine Appearance Urine pH Ur Specific [place] Urine Protein Urine Glucose (UA) Urine Ketones Urine Blood Urine Nitrite Ur Leukocyte Esterase Urine RBC Urine WBC Ur Squamous Epith Cells Ur Renal Epithelial Cell Urine Bacteria Hyaline Casts Granular Casts COVID-19 (JOSE) COVID-19 [facility] Com Blood Type Antibody Screen 10/13/20 10/14/20 10/14/20 20:24 07:21 11:20 WBC RBC Hgb Hct MCV MCH MCHC RDW Plt Count MPV Immature Gran % (Auto) Neut % (Auto) Lymph % (Auto) [place] % (Auto) Eos % (Auto) Baso % (Auto) Lymph # (Auto) [place] # (Auto) Eos # (Auto) Baso # (Auto) Abs Immat Gran (auto) Absolute Neuts (auto) Absolute Nucleated RBC Nucleated RBC % (auto) Smear Tech's Comments PT INR APTT Sodium Potassium Chloride Carbon Dioxide Anion Gap BUN Creatinine Estim Creat Clear Calc Estimated GFR POC Glucose 338 H 228 H 270 H Random Glucose Lactic Acid Lactic Acid Fup @ 2Hr Lactic Acid Fup @ 4Hr Calcium Total Bilirubin AST ALT Alkaline Phosphatase Total Creatine Kinase Total Protein Albumin Urine Color Urine Appearance Urine pH Ur Specific [place] Urine Protein Urine Glucose (UA) Urine Ketones Urine Blood Urine Nitrite Ur Leukocyte Esterase Urine RBC Urine WBC Ur Squamous Epith Cells Ur Renal Epithelial Cell Urine Bacteria Hyaline Casts Granular Casts COVID-19 (JOSE) COVID-19 [facility] Com Blood Type Antibody Screen 10/14/20 10/14/20 10/14/20 14:30 16:33 20:58 WBC RBC Hgb Hct MCV MCH MCHC RDW Plt Count MPV Immature Gran % (Auto) Neut % (Auto) Lymph % (Auto) [place] % (Auto) Eos % (Auto) Baso % (Auto) Lymph # (Auto) [place] # (Auto) Eos # (Auto) Baso # (Auto) Abs Immat Gran (auto) Absolute Neuts (auto) Absolute Nucleated RBC Nucleated RBC % (auto) Smear Tech's Comments PT INR APTT Sodium 130 L Potassium 4.4 Chloride 94 L Carbon Dioxide 27 Anion Gap 13 BUN 14 Creatinine 0.91 Estim Creat Clear Calc 122.0 Estimated GFR > 60 POC Glucose 288 H 225 H Random Glucose 302 H Lactic Acid Lactic Acid Fup @ 2Hr Lactic Acid Fup @ 4Hr Calcium 7.8 L Total Bilirubin AST ALT Alkaline Phosphatase Total Creatine Kinase Total Protein Albumin Urine Color Urine Appearance Urine pH Ur Specific [place] Urine Protein Urine Glucose (UA) Urine Ketones Urine Blood Urine Nitrite Ur Leukocyte Esterase Urine RBC Urine WBC Ur Squamous Epith Cells Ur Renal Epithelial Cell Urine Bacteria Hyaline Casts Granular Casts COVID-19 (JOSE) COVID-19 Clin Com Blood Type Antibody Screen 10/15/20 10/15/20 10/15/20 07:19 11:30 13:07 WBC RBC Hgb Hct MCV MCH MCHC RDW Plt Count MPV Immature Gran % (Auto) Neut % (Auto) Lymph % (Auto) [place] % (Auto) Eos % (Auto) Baso % (Auto) Lymph # (Auto) [place] # (Auto) Eos # (Auto) Baso # (Auto) Abs Immat Gran (auto) Absolute Neuts (auto) Absolute Nucleated RBC Nucleated RBC % (auto) Smear Tech's Comments PT INR APTT Sodium Potassium Chloride Carbon Dioxide Anion Gap BUN Creatinine Estim Creat Clear Calc Estimated GFR POC Glucose 226 H 206 H Random Glucose Lactic Acid Lactic Acid Fup @ 2Hr Lactic Acid Fup @ 4Hr Calcium Total Bilirubin AST ALT Alkaline Phosphatase Total Creatine Kinase 63 Total Protein Albumin Urine Color Urine Appearance Urine pH Ur Specific [place] Urine Protein Urine Glucose (UA) Urine Ketones Urine Blood Urine Nitrite Ur Leukocyte Esterase Urine RBC Urine WBC Ur Squamous Epith Cells Ur Renal Epithelial Cell Urine Bacteria Hyaline Casts Granular Casts COVID-19 (JOSE) COVID-19 Clin Com Blood Type Antibody Screen 10/15/20 10/15/20 13:24 14:15 WBC RBC Hgb Hct MCV MCH MCHC RDW Plt Count MPV Immature Gran % (Auto) Neut % (Auto) Lymph % (Auto) [place] % (Auto) Eos % (Auto) Baso % (Auto) Lymph # (Auto) [place] # (Auto) Eos # (Auto) Baso # (Auto) Abs Immat Gran (auto) Absolute Neuts (auto) Absolute Nucleated RBC Nucleated RBC % (auto) Smear Tech's Comments PT INR APTT Sodium Potassium Chloride Carbon Dioxide Anion Gap BUN Creatinine Estim Creat Clear Calc Estimated GFR POC Glucose 180 H Random Glucose Lactic Acid Lactic Acid Fup @ 2Hr Lactic Acid Fup @ 4Hr Calcium Total Bilirubin AST ALT Alkaline Phosphatase Total Creatine Kinase Total Protein Albumin Urine Color Urine Appearance Urine pH Ur Specific [place] Urine Protein Urine Glucose (UA) Urine Ketones Urine Blood Urine Nitrite Ur Leukocyte Esterase Urine RBC Urine WBC Ur Squamous Epith Cells Ur Renal Epithelial Cell Urine Bacteria Hyaline Casts Granular Casts COVID-19 (JOSE) COVID-19 Clin Com Blood Type O Positive Antibody Screen NEGATIVE Airway Mallampati Class: II TM Dist: >3cm Neck ROM: Full
--- NOTE | 2020-10-15 14:45 | P.CONAN_ITS ---
[facility] Active Problems Active Problems: All Active Problems (Updated 10/13/20 @ 10:31 by Troy Terrazas MD) Diabetic foot ulcer (Acute) Thrombocytopenia (Acute) MRSA bacteremia (Acute) MGUS (monoclonal gammopathy of unknown significance) (Acute) Drug-induced thrombocytopenia (Acute) Hyperlipidemia (Acute) Hypertension (Acute) Past Medical History Medical History Amputated great toe of right foot Back pain Drug-induced thrombocytopenia Hyperlipidemia Hypertension IDDM (insulin dependent diabetes mellitus) MGUS (monoclonal gammopathy of unknown significance) Neck pain Peripheral neuropathy Psychiatric diagnosis Sleep apnea Surgical History Surgical History H/O colonoscopy Hx of angioplasty Hx of appendectomy Hx of foot surgery Hx of tonsillectomy Hx of umbilical hernia repair Social History Social History Household Members: None Housing: Apartment Alcohol intake: never Smoking Status: Never smoker Second Hand Smoke Exposure: No Advance Directives: No Advance Directives Information Provided: No Advance Directives Date on File: 09/27/20 service: Yes Current occupational status: unemployed Meds Allergies Allergy/AdvReac Type Severity Reaction Status Date / Time vancomycin AdvReac Severe thrombocyto Verified 10/01/20 13:53 penia Active Medications: Current Medications Generic Name Dose Route Start Last Admin Trade Name Freq PRN Reason Stop Dose Admin Acetaminophen 650 mg 10/12/20 16:08 Acetaminophen 325 Mg Tablet PO Q6H PRN PAINFEV Albuterol Sulfate 2.5 mg 10/10/20 16:23 Albuterol Sulfate (0.083%) 2.5 Mg/3 Ml Vial.Neb INHALE ONCE PRN Wheezing Bisacodyl 5 mg 10/10/20 09:00 10/15/20 08:11 Bisacodyl 5 Mg Tablet.Dr PO 5 mg BID TJ Administration Docusate Sodium 100 mg 10/10/20 09:00 10/15/20 08:11 Docusate Sodium 100 Mg Capsule PO 100 mg BID TJ Administration Enoxaparin Sodium 40 mg 10/12/20 13:00 10/15/20 10:45 Enoxaparin Sodium 40 Mg/0.4 Ml Syringe SUBCUT Not Given Q24H TJ Gabapentin 600 mg 10/10/20 21:00 10/14/20 21:40 Gabapentin 600 Mg Tablet PO 600 mg BEDTIME [facility] Administration Daptomycin 500 mg/ Sodium 60 mls @ 100 mls/hr 10/10/20 10:00 10/15/20 12:00 Chloride IV Infused Q24H [facility] Infusion Insulin Glargine 20 unit 10/12/20 21:00 10/14/20 21:38 Insulin Glargine,Hum.Rec.Anlog 100 Unit/Ml 10 Ml Vial SUBCUT 20 unit BEDTIME [facility] Administration Insulin Human Lispro 0 unit 10/11/20 08:15 10/15/20 11:52 Insulin Lispro 100 Unit/Ml 3 Ml Vial SUBCUT 4 unit QIDACHS [facility] Administration Protocol Lactulose 20 gm 10/10/20 02:19 Lactulose 20 Gm/30 Ml Solution PO DAILY PRN Constipation Morphine Sulfate 4 mg 10/10/20 17:34 Morphine Sulfate 4 Mg/Ml Cartridge IVPUSH Q3H PRN Pain, Severe (Pain Scale 7-10) Nystatin 1 appl 10/11/20 11:30 10/15/20 10:12 Nystatin Powder 15 Gm Bottle TOPICAL Not Given BID [facility] Protocol Ondansetron HCl 4 mg 10/10/20 17:43 Ondansetron Hcl 4 Mg/2 Ml Vial IVPUSH ONCE PRN Nausea and Vomiting Oxycodone HCl 5 mg 10/10/20 17:50 Oxycodone Hcl Immed Release 5 Mg Tablet PO ONCE PRN Pain, Severe (Pain Scale 7-10) Pharmacy Consult 1 each 10/09/20 16:38 Consult Rx Perform Med Rec MISCELLANE ONCE PRN Consult order Polyethylene Glycol 17 gm 10/10/20 02:19 Polyethylene Glycol 3350 17 Gm Powd.Pack PO DAILY PRN Constipation Sodium Chloride 3 ml 10/10/20 08:00 10/15/20 08:12 0.9 % Sodium Chloride Flush 3 Ml Syringe IVFLUSH 3 ml QSHIFT [facility] Administration Vitamin D 25 mcg 10/10/20 09:00 10/15/20 08:11 Cholecalciferol (Vitamin D3) 25 Mcg Tablet PO 25 mcg DAILY [facility] Administration Home Medications Medication Instructions Recorded Confirmed Last Taken Type Victoza 3-Chet 1.8 mg SUBCUT DAILY 07/17/20 10/09/20 Unknown History aspirin 81 mg PO DAILY 07/17/20 10/09/20 Unknown History gabapentin 600 mg PO BEDTIME 07/17/20 10/09/20 Unknown History lisinopril 5 mg PO DAILY 07/17/20 10/09/20 Unknown History metformin 1,000 mg PO BID 07/17/20 10/09/20 Unknown History bisacodyl 5 mg PO BID 09/04/20 10/09/20 Unknown History cholecalciferol (vitamin D3) 25 mcg PO DAILY 09/04/20 10/09/20 Unknown History blood sugar diagnostic #10 ea 10/01/20 Unknown History fluoxetine 20 mg capsule 20 mg PO DAILY 10/01/20 10/09/20 Unknown History atorvastatin 40 mg PO BEDTIME 10/09/20 10/09/20 Unknown History insulin degludec [Tresiba SUBCUT DAILY 10/09/20 Unknown History FlexTouch U-100] Exam Exam Date and Time: October 15, 2020 1445 Height,Weight and Vital Signs: Height 6 ft 2 in Weight 129.7 kg Last Vital Signs Temp 99.9 F 10/15/20 14:25 Pulse 83 10/15/20 14:25 Resp 20 10/15/20 14:25 BP 128/72 10/15/20 14:25 Pulse Ox 96 10/15/20 14:25 Pertinent Lab Results Pertinent Lab Results: Laboratory Tests 10/09/20 10/09/20 10/09/20 17:59 18:15 18:15 WBC 17.4 H RBC 3.43 L Hgb 11.0 L Hct 31.5 L MCV 91.8 MCH 32.1 MCHC 34.9 RDW 11.8 Plt Count 344 MPV 9.9 Immature Gran % (Auto) 1.6 H Neut % (Auto) 80.6 H Lymph % (Auto) 8.[address] [place] % (Auto) 8.7 Eos % (Auto) 0.8 Baso % (Auto) 0.3 Lymph # (Auto) 1.4 [place] # (Auto) 1.5 H Eos # (Auto) 0.1 Baso # (Auto) 0.1 Abs Immat Gran (auto) 0.28 H Absolute Neuts (auto) 14.0 H Absolute Nucleated RBC 0.000 Nucleated RBC % (auto) 0.0 Smear Tech's Comments VERIFIED PT 16.5 H INR 1.4 H APTT 31.9 Sodium Potassium Chloride Carbon Dioxide Anion Gap BUN Creatinine Estim Creat Clear Calc Estimated GFR POC Glucose Random Glucose Lactic Acid Lactic Acid Fup @ 2Hr Lactic Acid Fup @ 4Hr Calcium Total Bilirubin AST ALT Alkaline Phosphatase Total Creatine Kinase Total Protein Albumin Urine Color Urine Appearance Urine pH Ur Specific [place] Urine Protein Urine Glucose (UA) Urine Ketones Urine Blood Urine Nitrite Ur Leukocyte Esterase Urine RBC Urine WBC Ur Squamous Epith Cells Ur Renal Epithelial Cell Urine Bacteria Hyaline Casts Granular Casts COVID-19 (JOSE) Negative COVID-19 Clin Com See Note Blood Type Antibody Screen 10/09/20 10/09/20 10/09/20 18:15 18:16 23:09 WBC RBC Hgb Hct MCV MCH MCHC RDW Plt Count MPV Immature Gran % (Auto) Neut % (Auto) Lymph % (Auto) [place] % (Auto) Eos % (Auto) Baso % (Auto) Lymph # (Auto) [place] # (Auto) Eos # (Auto) Baso # (Auto) Abs Immat Gran (auto) Absolute Neuts (auto) Absolute Nucleated RBC Nucleated RBC % (auto) Smear Tech's Comments PT INR APTT Sodium 130 L Potassium 4.5 Chloride 94 L Carbon Dioxide 23 Anion Gap 18 BUN 29 H Creatinine 1.56 H Estim Creat Clear Calc 71.1 Estimated GFR 45 POC Glucose Random Glucose 302 H Lactic Acid 2.5 H* Lactic Acid Fup @ 2Hr 2.6 H* Lactic Acid Fup @ 4Hr Calcium 8.8 D Total Bilirubin 0.6 AST 29 ALT 61 H Alkaline Phosphatase 126 H Total Creatine Kinase Total Protein 6.7 Albumin 3.0 L Urine Color Urine Appearance Urine pH Ur Specific [place] Urine Protein Urine Glucose (UA) Urine Ketones Urine Blood Urine Nitrite Ur Leukocyte Esterase Urine RBC Urine WBC Ur Squamous Epith Cells Ur Renal Epithelial Cell Urine Bacteria Hyaline Casts Granular Casts COVID-19 (JOSE) COVID-19 Clin Com Blood Type Antibody Screen 10/10/20 10/10/20 10/10/20 00:59 04:17 05:58 WBC RBC Hgb Hct MCV MCH MCHC RDW Plt Count MPV Immature Gran % (Auto) Neut % (Auto) Lymph % (Auto) [place] % (Auto) Eos % (Auto) Baso % (Auto) Lymph # (Auto) [place] # (Auto) Eos # (Auto) Baso # (Auto) Abs Immat Gran (auto) Absolute Neuts (auto) Absolute Nucleated RBC Nucleated RBC % (auto) Smear Tech's Comments PT INR APTT Sodium Potassium Chloride Carbon Dioxide Anion Gap BUN Creatinine Estim Creat Clear Calc Estimated GFR POC Glucose 302 H Random Glucose Lactic Acid Lactic Acid Fup @ 2Hr Lactic Acid Fup @ 4Hr 0.9 Calcium Total Bilirubin AST ALT Alkaline Phosphatase Total Creatine Kinase Total Protein Albumin Urine Color DARK YELLOW Urine Appearance CLEAR Urine pH 5.0 Ur Specific [place] >= 1.030 H Urine Protein TRACE Urine Glucose (UA) 100 H Urine Ketones NEG Urine Blood NEG Urine Nitrite NEG Ur Leukocyte Esterase NEG Urine RBC 0-2 Urine WBC 1-4 Ur Squamous Epith Cells TRACE Ur Renal Epithelial Cell 1+ Urine Bacteria TRACE Hyaline Casts >50 Granular Casts 1-4 COVID-19 (JOSE) COVID-19 Clin Com Blood Type Antibody Screen 10/10/20 10/10/20 10/10/20 09:03 09:03 09:03 WBC 12.3 H RBC 3.31 L Hgb 10.5 L Hct 30.8 L MCV 93.1 MCH 31.7 MCHC 34.1 RDW 11.9 Plt Count 354 MPV 9.7 Immature Gran % (Auto) 1.8 H Neut % (Auto) 73.6 H Lymph % (Auto) 13.[address] [place] % (Auto) 8.5 Eos % (Auto) 2.0 Baso % (Auto) 0.2 Lymph # (Auto) 1.7 [place] # (Auto) 1.1 Eos # (Auto) 0.3 Baso # (Auto) 0.0 Abs Immat Gran (auto) 0.22 H Absolute Neuts (auto) 9.1 H Absolute Nucleated RBC 0.000 Nucleated RBC % (auto) 0.0 Smear Tech's Comments PT 16.4 H INR 1.4 H APTT Sodium 131 L Potassium 5.1 Chloride 96 Carbon Dioxide 26 Anion Gap 14 BUN 30 H Creatinine 1.29 Estim Creat Clear Calc 86.0 Estimated GFR 57 POC Glucose Random Glucose 267 H Lactic Acid Lactic Acid Fup @ 2Hr Lactic Acid Fup @ 4Hr Calcium 8.3 L Total Bilirubin AST ALT Alkaline Phosphatase Total Creatine Kinase Total Protein Albumin Urine Color Urine Appearance Urine pH Ur Specific [place] Urine Protein Urine Glucose (UA) Urine Ketones Urine Blood Urine Nitrite Ur Leukocyte Esterase Urine RBC Urine WBC Ur Squamous Epith Cells Ur Renal Epithelial Cell Urine Bacteria Hyaline Casts Granular Casts COVID-19 (JOSE) COVID-[facility] Blood Type Antibody Screen 10/10/20 10/10/20 10/10/20 12:10 15:12 20:25 WBC RBC Hgb Hct MCV MCH MCHC RDW Plt Count MPV Immature Gran % (Auto) Neut % (Auto) Lymph % (Auto) [place] % (Auto) Eos % (Auto) Baso % (Auto) Lymph # (Auto) [place] # (Auto) Eos # (Auto) Baso # (Auto) Abs Immat Gran (auto) Absolute Neuts (auto) Absolute Nucleated RBC Nucleated RBC % (auto) Smear Tech's Comments PT INR APTT Sodium Potassium Chloride Carbon Dioxide Anion Gap BUN Creatinine Estim Creat Clear Calc Estimated GFR POC Glucose 220 H 193 H 256 H Random Glucose Lactic Acid Lactic Acid Fup @ 2Hr Lactic Acid Fup @ 4Hr Calcium Total Bilirubin AST ALT Alkaline Phosphatase Total Creatine Kinase Total Protein Albumin Urine Color Urine Appearance Urine pH Ur Specific [place] Urine Protein Urine Glucose (UA) Urine Ketones Urine Blood Urine Nitrite Ur Leukocyte Esterase Urine RBC Urine WBC Ur Squamous Epith Cells Ur Renal Epithelial Cell Urine Bacteria Hyaline Casts Granular Casts COVID-19 (JOSE) COVIDHaz[facility] Mail Blood Type Antibody Screen 10/11/20 10/11/20 10/11/20 07:48 11:39 16:46 WBC RBC Hgb Hct MCV MCH MCHC RDW Plt Count MPV Immature Gran % (Auto) Neut % (Auto) Lymph % (Auto) [place] % (Auto) Eos % (Auto) Baso % (Auto) Lymph # (Auto) [place] # (Auto) Eos # (Auto) Baso # (Auto) Abs Immat Gran (auto) Absolute Neuts (auto) Absolute Nucleated RBC Nucleated RBC % (auto) Smear Tech's Comments PT INR APTT Sodium Potassium Chloride Carbon Dioxide Anion Gap BUN Creatinine Estim Creat Clear Calc Estimated GFR POC Glucose 238 H 302 H 332 H Random Glucose Lactic Acid Lactic Acid Fup @ 2Hr Lactic Acid Fup @ 4Hr Calcium Total Bilirubin AST ALT Alkaline Phosphatase Total Creatine Kinase Total Protein Albumin Urine Color Urine Appearance Urine pH Ur Specific [place] Urine Protein Urine Glucose (UA) Urine Ketones Urine Blood Urine Nitrite Ur Leukocyte Esterase Urine RBC Urine WBC Ur Squamous Epith Cells Ur Renal Epithelial Cell Urine Bacteria Hyaline Casts Granular Casts COVID-19 (JOSE) [facility] Blood Type Antibody Screen 10/11/20 10/12/20 10/12/20 19:37 06:22 06:22 WBC 13.8 H RBC 2.93 L Hgb 9.3 L Hct 27.2 L MCV 92.8 MCH 31.7 MCHC 34.2 RDW 11.8 Plt Count 362 MPV 10.0 Immature Gran % (Auto) Neut % (Auto) Lymph % (Auto) [place] % (Auto) Eos % (Auto) Baso % (Auto) Lymph # (Auto) [place] # (Auto) Eos # (Auto) Baso # (Auto) Abs Immat Gran (auto) Absolute Neuts (auto) Absolute Nucleated RBC 0.000 Nucleated RBC % (auto) 0.0 Smear Tech's Comments PT INR APTT Sodium 130 L Potassium 4.4 Chloride 98 Carbon Dioxide 24 Anion Gap 12 BUN 13 D Creatinine 0.83 Estim Creat Clear Calc 133.7 Estimated GFR > 60 POC Glucose 363 H* Random Glucose 244 H Lactic Acid Lactic Acid Fup @ 2Hr Lactic Acid Fup @ 4Hr Calcium 8.1 L Total Bilirubin AST ALT Alkaline Phosphatase Total Creatine Kinase Total Protein Albumin Urine Color Urine Appearance Urine pH Ur Specific [place] Urine Protein Urine Glucose (UA) Urine Ketones Urine Blood Urine Nitrite Ur Leukocyte Esterase Urine RBC Urine WBC Ur Squamous Epith Cells Ur Renal Epithelial Cell Urine Bacteria Hyaline Casts Granular Casts COVID-19 (JOSE) COVID-19 Clin [facility] Blood Type Antibody Screen 10/12/20 10/12/20 10/12/20 07:43 11:44 16:21 WBC RBC Hgb Hct MCV MCH MCHC RDW Plt Count MPV Immature Gran % (Auto) Neut % (Auto) Lymph % (Auto) [place] % (Auto) Eos % (Auto) Baso % (Auto) Lymph # (Auto) [place] # (Auto) Eos # (Auto) Baso # (Auto) Abs Immat Gran (auto) Absolute Neuts (auto) Absolute Nucleated RBC Nucleated RBC % (auto) Smear Tech's Comments PT INR APTT Sodium Potassium Chloride Carbon Dioxide Anion Gap BUN Creatinine Estim Creat Clear Calc Estimated GFR POC Glucose 226 H 363 H* 317 H Random Glucose Lactic Acid Lactic Acid Fup @ 2Hr Lactic Acid Fup @ 4Hr Calcium Total Bilirubin AST ALT Alkaline Phosphatase Total Creatine Kinase Total Protein Albumin Urine Color Urine Appearance Urine pH Ur Specific [place] Urine Protein Urine Glucose (UA) Urine Ketones Urine Blood Urine Nitrite Ur Leukocyte Esterase Urine RBC Urine WBC Ur Squamous Epith Cells Ur Renal Epithelial Cell Urine Bacteria Hyaline Casts Granular Casts COVID-19 (JOSE) COVID-19 [facility] Com Blood Type Antibody Screen 10/12/20 10/13/20 10/13/20 19:46 06:10 06:10 WBC 14.5 H RBC 3.08 L Hgb 9.8 L Hct 28.7 L MCV 93.2 MCH 31.8 MCHC 34.1 RDW 11.9 Plt Count 384 MPV 10.2 Immature Gran % (Auto) Neut % (Auto) Lymph % (Auto) [place] % (Auto) Eos % (Auto) Baso % (Auto) Lymph # (Auto) [place] # (Auto) Eos # (Auto) Baso # (Auto) Abs Immat Gran (auto) Absolute Neuts (auto) Absolute Nucleated RBC 0.000 Nucleated RBC % (auto) 0.0 Smear Tech's Comments PT INR APTT Sodium 129 L Potassium 4.6 Chloride 95 L Carbon Dioxide 24 Anion Gap 15 BUN 13 Creatinine 0.83 Estim Creat Clear Calc 133.7 Estimated GFR > 60 POC Glucose 324 H Random Glucose 261 H Lactic Acid Lactic Acid Fup @ 2Hr Lactic Acid Fup @ 4Hr Calcium 7.9 L Total Bilirubin AST ALT Alkaline Phosphatase Total Creatine Kinase Total Protein Albumin Urine Color Urine Appearance Urine pH Ur Specific [place] Urine Protein Urine Glucose (UA) Urine Ketones Urine Blood Urine Nitrite Ur Leukocyte Esterase Urine RBC Urine WBC Ur Squamous Epith Cells Ur Renal Epithelial Cell Urine Bacteria Hyaline Casts Granular Casts COVID-19 (JOSE) COVID-19 [facility] Blood Type Antibody Screen 10/13/20 10/13/20 10/13/20 07:24 11:32 16:34 WBC RBC Hgb Hct MCV MCH MCHC RDW Plt Count MPV Immature Gran % (Auto) Neut % (Auto) Lymph % (Auto) [place] % (Auto) Eos % (Auto) Baso % (Auto) Lymph # (Auto) [place] # (Auto) Eos # (Auto) Baso # (Auto) Abs Immat Gran (auto) Absolute Neuts (auto) Absolute Nucleated RBC Nucleated RBC % (auto) Smear Tech's Comments PT INR APTT Sodium Potassium Chloride Carbon Dioxide Anion Gap BUN Creatinine Estim Creat Clear Calc Estimated GFR POC Glucose 240 H 283 H 349 H Random Glucose Lactic Acid Lactic Acid Fup @ 2Hr Lactic Acid Fup @ 4Hr Calcium Total Bilirubin AST ALT Alkaline Phosphatase Total Creatine Kinase Total Protein Albumin Urine Color Urine Appearance Urine pH Ur Specific [place] Urine Protein Urine Glucose (UA) Urine Ketones Urine Blood Urine Nitrite Ur Leukocyte Esterase Urine RBC Urine WBC Ur Squamous Epith Cells Ur Renal Epithelial Cell Urine Bacteria Hyaline Casts Granular Casts COVID-19 (JOSE) COVID-19 [facility] Com Blood Type Antibody Screen 10/13/20 10/14/20 10/14/20 20:24 07:21 11:20 WBC RBC Hgb Hct MCV MCH MCHC RDW Plt Count MPV Immature Gran % (Auto) Neut % (Auto) Lymph % (Auto) [place] % (Auto) Eos % (Auto) Baso % (Auto) Lymph # (Auto) [place] # (Auto) Eos # (Auto) Baso # (Auto) Abs Immat Gran (auto) Absolute Neuts (auto) Absolute Nucleated RBC Nucleated RBC % (auto) Smear Tech's Comments PT INR APTT Sodium Potassium Chloride Carbon Dioxide Anion Gap BUN Creatinine Estim Creat Clear Calc Estimated GFR POC Glucose 338 H 228 H 270 H Random Glucose Lactic Acid Lactic Acid Fup @ 2Hr Lactic Acid Fup @ 4Hr Calcium Total Bilirubin AST ALT Alkaline Phosphatase Total Creatine Kinase Total Protein Albumin Urine Color Urine Appearance Urine pH Ur Specific [place] Urine Protein Urine Glucose (UA) Urine Ketones Urine Blood Urine Nitrite Ur Leukocyte Esterase Urine RBC Urine WBC Ur Squamous Epith Cells Ur Renal Epithelial Cell Urine Bacteria Hyaline Casts Granular Casts COVID-19 (JOSE) COVID-19 [facility] Com Blood Type Antibody Screen 10/14/20 10/14/20 10/14/20 14:30 16:33 20:58 WBC RBC Hgb Hct MCV MCH MCHC RDW Plt Count MPV Immature Gran % (Auto) Neut % (Auto) Lymph % (Auto) [place] % (Auto) Eos % (Auto) Baso % (Auto) Lymph # (Auto) [place] # (Auto) Eos # (Auto) Baso # (Auto) Abs Immat Gran (auto) Absolute Neuts (auto) Absolute Nucleated RBC Nucleated RBC % (auto) Smear Tech's Comments PT INR APTT Sodium 130 L Potassium 4.4 Chloride 94 L Carbon Dioxide 27 Anion Gap 13 BUN 14 Creatinine 0.91 Estim Creat Clear Calc 122.0 Estimated GFR > 60 POC Glucose 288 H 225 H Random Glucose 302 H Lactic Acid Lactic Acid Fup @ 2Hr Lactic Acid Fup @ 4Hr Calcium 7.8 L Total Bilirubin AST ALT Alkaline Phosphatase Total Creatine Kinase Total Protein Albumin Urine Color Urine Appearance Urine pH Ur Specific [place] Urine Protein Urine Glucose (UA) Urine Ketones Urine Blood Urine Nitrite Ur Leukocyte Esterase Urine RBC Urine WBC Ur Squamous Epith Cells Ur Renal Epithelial Cell Urine Bacteria Hyaline Casts Granular Casts COVID-19 (JOSE) COVID-19 Clin Com Blood Type Antibody Screen 10/15/20 10/15/20 10/15/20 07:19 11:30 13:07 WBC RBC Hgb Hct MCV MCH MCHC RDW Plt Count MPV Immature Gran % (Auto) Neut % (Auto) Lymph % (Auto) [place] % (Auto) Eos % (Auto) Baso % (Auto) Lymph # (Auto) [place] # (Auto) Eos # (Auto) Baso # (Auto) Abs Immat Gran (auto) Absolute Neuts (auto) Absolute Nucleated RBC Nucleated RBC % (auto) Smear Tech's Comments PT INR APTT Sodium Potassium Chloride Carbon Dioxide Anion Gap BUN Creatinine Estim Creat Clear Calc Estimated GFR POC Glucose 226 H 206 H Random Glucose Lactic Acid Lactic Acid Fup @ 2Hr Lactic Acid Fup @ 4Hr Calcium Total Bilirubin AST ALT Alkaline Phosphatase Total Creatine Kinase 63 Total Protein Albumin Urine Color Urine Appearance Urine pH Ur Specific [place] Urine Protein Urine Glucose (UA) Urine Ketones Urine Blood Urine Nitrite Ur Leukocyte Esterase Urine RBC Urine WBC Ur Squamous Epith Cells Ur Renal Epithelial Cell Urine Bacteria Hyaline Casts Granular Casts COVID-19 (JOSE) COVID-19 Clin Com Blood Type Antibody Screen 10/15/20 10/15/20 13:24 14:15 WBC RBC Hgb Hct MCV MCH MCHC RDW Plt Count MPV Immature Gran % (Auto) Neut % (Auto) Lymph % (Auto) [place] % (Auto) Eos % (Auto) Baso % (Auto) Lymph # (Auto) [place] # (Auto) Eos # (Auto) Baso # (Auto) Abs Immat Gran (auto) Absolute Neuts (auto) Absolute Nucleated RBC Nucleated RBC % (auto) Smear Tech's Comments PT INR APTT Sodium Potassium Chloride Carbon Dioxide Anion Gap BUN Creatinine Estim Creat Clear Calc Estimated GFR POC Glucose 180 H Random Glucose Lactic Acid Lactic Acid Fup @ 2Hr Lactic Acid Fup @ 4Hr Calcium Total Bilirubin AST ALT Alkaline Phosphatase Total Creatine Kinase Total Protein Albumin Urine Color Urine Appearance Urine pH Ur Specific [place] Urine Protein Urine Glucose (UA) Urine Ketones Urine Blood Urine Nitrite Ur Leukocyte Esterase Urine RBC Urine WBC Ur Squamous Epith Cells Ur Renal Epithelial Cell Urine Bacteria Hyaline Casts Granular Casts COVID-19 (JOSE) COVID-19 Clin Com Blood Type O Positive Antibody Screen NEGATIVE
[2020-10-15 15:01] LABS: Glucose, Whole Blood 175 mg/dL (60-115)
[2020-10-15] MEDS: Morphine Sulfate 2 MG/ML CARTRIDGE IVPUSH ×2 (15:01→18:01)
--- NOTE | 2020-10-15 15:37 | MHC.SHP ---
Pre-Procedural Eval Section B Chief Complaint: DM foot infection Allergies: Allergies Allergy/AdvReac Type Severity Reaction Status Date / Time vancomycin AdvReac Severe thrombocyto Verified 10/01/20 13:53 penia Plan I have reviewed the history and physical and performed a pertinent physical examination on my patient. No changes have occurred unless specified.
[2020-10-15 17:38] LABS: Glucose, Whole Blood 211 mg/dL (60-115)
[2020-10-15] MEDS: Morphine Sulfate 2 MG/ML CARTRIDGE 1 MG IVPUSH (17:50)
--- NOTE | 2020-10-15 18:25 | P.OP_ITS ---
Operative Note Operative Note Date of Service: 10/15/20 Narrative: Operative note by [facility] Preoperative diagnosis: Nonhealing right foot ulcer Postoperative diagnosis: Same Procedure: Right below-knee amputation Surgeon:Cameron Figueroa M.D. Space Engineer: None Anesthesia: General Specimens: 1 Drains: None Estimated blood loss: 100 mL Indications: 60-year-old gentleman with diabetes who has had a chronic nonhealing ulcer. He had undergone a transmetatarsal amputation which had a failed flap. He now presents for below-knee amputation. Risks benefits complications were discussed in detail with the patient. He understood and consented. Procedure in detail: Patient was brought to the operating room prior to which a time-out was called for patient identification site verification. Right leg was prepped and draped in standard surgical fashion. Approximately 10 cm below the tibial tuberosity a curvilinear incision was made over that area. Posterior flap was then created. On once this was accomplished we went down on to the tibia. This was then identified and arm cleared we were able to easily identify a anterior tibial and posterior tibial arteries in these were ligated 2 0 silk ties. Once this was done we E then placed a lap pad just below the tibia. A reverse hockey-stick shaped incision was created on the bone. The fibula was also transected with power saw approximately 2-3 inches above the fibula. Once this was all accomplished this was taken off the posterior flap and the leg was passed off the table as specimen. The wound was thoroughly irrigated. The flap was trimmed down to appropriate size. Adequate hemostasis was achieved. Fascial layer of the flap was brought up to the upper part using 2 0 poly Sorb once this was accomplished the skin was reapproximated using 2 0 nylon in a mattress fashion. Xeroform and a sterile dressing were applied. At the end the case sponge does may counts were correct. Patient tolerated the procedure well returned to recovery with stable vitals. This note is constructed using voice recognition software. While every effort has been made to ensure accuracy, clinical support associate errors may have been included. Thank you for allowing me to participate in the care of your patient. Yours sincerely, Cameron Figueroa MD, FACS, R.P.V.I.
--- NOTE | 2020-10-15 18:29 | PM.OP ---
Brief Operative Note Date of Service: 10/15/20 Pre-op diagnosis: Nonhealing right foot ulcer Post-op diagnosis: same Procedure: Right below-knee amputation Surgeon: Cameron Figueroa MD Anesthesia: GLMA Estimated blood loss (mL): 100 Condition: stable Disposition: PACU
[2020-10-15] MEDS: Insulin Glargine,Hum.rec.anlog 100 UNIT/ML 10 ML VIAL 20 UNIT SUBCUT (20:41)
[2020-10-15] MEDS: Gabapentin 600 MG TABLET PO (20:43)
[2020-10-15] MEDS: oxyCODONE HCl Immed Release 5 MG TABLET 10 MG PO (20:43)
[2020-10-15] MEDS: Nystatin Powder 15 GM BOTTLE 1 APPL TOPICAL (20:44)
[2020-10-15 21:02] LABS: Glucose, Whole Blood 293 mg/dL (60-115)
[2020-10-16] VITALS (8 sets, daily range): BP systolic 100–136; BP diastolic 55–74; PULSE 60–90; RESP 14–19; TEMP 36–37.1; O2SAT 92–96
[2020-10-16] MEDS: oxyCODONE HCl Immed Release 5 MG TABLET 10 MG PO (05:27)
[2020-10-16 07:41] LABS: Estimated Average Glucose 223 mg/dL; Hemoglobin A1c % 9.4 %
[2020-10-16 07:57] LABS: Glucose, Whole Blood 211 mg/dL (60-115)
[2020-10-16] MEDS: Insulin Lispro 100 UNIT/ML 3 ML VIAL SUBCUT ×4 (08:18→21:52)
[2020-10-16] MEDS: 0.9 % Sodium Chloride Flush 3 ML SYRINGE IVFLUSH ×2 (08:19→17:12)
[2020-10-16] MEDS: Cholecalciferol (Vitamin D3) 25 MCG TABLET PO (08:20)
[2020-10-16] MEDS: bisacodyL 5 MG TABLET.DR PO ×2 (08:20→21:52)
[2020-10-16 08:38] LABS: MANUAL DIFF FLAG NO
[2020-10-16 08:43] LABS: Basophils Percent Auto 0.3 % (0-2); Eosinophils Percent Auto 0.1 % (0-4); Hematocrit 26.7 % (42-52); Hemoglobin 8.9 g/dl (14.0-18.0); Imm Gran Pct Auto 4.3 % (0.0-0.4); Lymphocytes Absolute Auto 1.1 X10*3/uL (1.2-4.9); Lymphocytes Percent Auto 7.5 % (20-40); Mean Corpuscular HGB Conc 33.3 g/dl (31.0-36.0); Mean Corpuscular Hemoglobin 31.3 pg (27.0-33.0); Mean Platelet Volume 10.2 fL (9.4-12.4); Monocytes Absolute Auto 1.1 X10*3/uL (0.1-1.2); Neutrophils Absolute Auto 11.3 X10*3/uL (2.0-8.3); Neutrophils Percent Auto 79.8 % (45-73); Platelet Count 404 X10*3/uL (160-400); Red Blood Count 2.84 X10*6/uL (4.60-5.80); White Blood Count 14.1 X10*3/uL (4.8-10.8)
[2020-10-16 08:56] LABS: Glucose, Whole Blood 407 mg/dL (60-115)
[2020-10-16 09:40] LABS: Anion Gap 16 (12-20); Blood Urea Nitrogen 23 mg/dL (9-16); Carbon Dioxide 28 mmol/L (22-29); Chloride 93 mmol/L (96-108); Creatinine Clr Calc Pharmacy 96.5; Estimated Glomerular Filt Rate > 60; Potassium 5.9 mmol/L (3.3-5.1); Sodium 131 mmol/L (135-145)
[2020-10-16 10:02] LABS: Glucose Random 461 mg/dL (60-115)
--- NOTE | 2020-10-16 10:52 | P.PNIM_ITS ---
Subjective Subjective Date of Service: 10/16/20 Interval History: Patient seen and examined at bedside Patient reported pain at amputation site Review of Systems Patient denies any chest pain or shortness of breath or abdominal pain or fever chills or nausea or vomiting. Constitutional Constitutional: Reports no additional constitutional complaints ENT Ears, Nose, Mouth, and Throat: Reports Normal hearing present Cardiovascular Cardiovascular: Denies chest pain, Denies chest pain at rest, Denies chest pain with activity and Denies pedal edema Respiratory Respiratory: Denies cough Gastrointestinal Gastrointestinal: Denies abdominal pain Musculoskeletal Musculoskeletal: Denies abnormal gait, Denies muscle cramps and Denies radiating pain into limb Integumentary/Breasts Skin/Breast: Denies skin ulcer and Denies wounds Neurologic Neurologic: Reports Normal hearing present and Denies abnormal gait Psychiatric Psychiatric: Reports no additional psychiatric complaints Physical Exam Vital Signs: Vital Signs: Last Vital Signs Temp 96.8 F 10/16/20 07:35 Pulse 86 10/16/20 07:35 Resp 17 10/16/20 07:35 BP 100/55 L 10/16/20 07:35 Pulse Ox 96 10/16/20 07:35 Body Mass Index 36.7 Cardio: Other: General - no acute distress, appears comfortable Cardiovascular - regular rate and rhythm, S1-S2 Lungs - normal respiratory effort, clear to auscultation bilaterally, no wheezing Abdomen - soft, non-tender, no rebound or guarding Extremities - dressing in place Neuro - awake and alert, no focal deficits foot ulcer s/p TMA s/p BKA Neuro: Cranial nerves: Yes Normal hearing present Objective Data Current Medications Generic Name Dose Route Start Last Admin Trade Name Freq PRN Reason Stop Dose Admin Acetaminophen 650 mg 10/12/20 16:08 Acetaminophen 325 Mg Tablet PO Q6H PRN PAINFEV Albuterol Sulfate 2.5 mg 10/10/20 16:23 Albuterol Sulfate (0.083%) 2.5 Mg/3 Ml Vial.Neb INHALE ONCE PRN Wheezing Bisacodyl 5 mg 10/10/20 09:00 10/16/20 08:20 Bisacodyl 5 Mg Tablet. PO 5 mg BID TJ Administration Docusate Sodium 100 mg 10/10/20 09:00 10/16/20 08:20 Docusate Sodium 100 Mg Capsule PO Not Given BID [facility] Enoxaparin Sodium 40 mg 10/12/20 13:00 10/15/20 10:45 Enoxaparin Sodium 40 Mg/0.4 Ml Syringe SUBCUT Not Given Q24H [facility] Gabapentin 600 mg 10/10/20 21:00 10/15/20 20:43 Gabapentin 600 Mg Tablet PO 600 mg BEDTIME [facility] Administration Daptomycin 500 mg/ Sodium 60 mls @ 100 mls/hr 10/10/20 10:00 10/15/20 12:00 Chloride IV Infused Q24H [facility] Infusion Insulin Glargine 20 unit 10/12/20 21:00 10/15/20 20:41 Insulin Glargine,Hum.Rec.Anlog 100 Unit/Ml 10 Ml Vial SUBCUT 20 unit BEDTIME [facility] Administration Insulin Human Lispro 0 unit 10/11/20 08:15 10/16/20 08:18 Insulin Lispro 100 Unit/Ml 3 Ml Vial SUBCUT 10 unit QIDACHS [facility] Administration Protocol Lactulose 20 gm 10/10/20 02:19 Lactulose 20 Gm/30 Ml Solution PO DAILY PRN Constipation Nystatin 1 appl 10/11/20 11:30 10/16/20 08:24 Nystatin Powder 15 Gm Bottle TOPICAL Not Given BID [facility] Protocol Oxycodone HCl 10 mg 10/15/20 19:25 10/16/20 05:27 Oxycodone Hcl Immed Release 5 Mg Tablet PO 10 mg Q4H PRN Administration Pain, Severe (Pain Scale 7-10) Pharmacy Consult 1 each 10/09/20 16:38 Consult Rx Perform Med Rec MISCELLANE ONCE PRN Consult order Polyethylene Glycol 17 gm 10/10/20 02:19 Polyethylene Glycol 3350 17 Gm Powd.Pack PO DAILY PRN Constipation Sodium Chloride 3 ml 10/10/20 08:00 10/16/20 08:19 0.9 % Sodium Chloride Flush 3 Ml Syringe IVFLUSH 3 ml QSHIFT [facility] Administration Vitamin D 25 mcg 10/10/20 09:00 10/16/20 08:20 Cholecalciferol (Vitamin D3) 25 Mcg Tablet PO 25 mcg DAILY [facility] Administration Labs CBC & Chem 7: 10/16/20 08:04 10/16/20 08:04 Microbiology Microbiology Results: Microbiology 10/09/20 18:16 Blood - Venous Blood Culture - Final No growth after 5 days. 10/09/20 18:15 Blood - Venous Blood Culture - Final No growth after 5 days. Assessment and Plan (1) Diabetic foot ulcer: Status: Acute (2) MRSA bacteremia: Status: Acute Assessment and Plan: This is a 60 yo M with a PMH of DM, MRSA bacteremia due to diabetic foot infection (currently being treated with daptomycin) who is admitted for: 1. Diabetic foot infection s/p TMA still with poor healing s/p BKA on 10/15/20 Vascular surgery following Was not daptomycin CPK trending up will stop daptomycin 2.MRSA bactermia (from prior admit) blood cx from this admission negative on Daptomcyin for now , CPK trending up Will hold daptomycin Per ID will need total 4 weeks not 6 weeks given amputation 3. DM Blood glucose on higher side diabetic diet Lantus dose increased Continue SSI Monitor blood glucose 4. Recent thrombocytopenia was suspected due to vancomcyin now normalized monitor CBCs 5. History of MGUS outpatient oncology f/u 6. HypoNa sodium 130 today monitor sodium DVT pptx, lovenox
[2020-10-16] MEDS: DAPTOmycin 500 MG in 0.9 % Sodium Chloride 50 ML 100 MG IV (11:42)
[2020-10-16] MEDS: Enoxaparin Sodium 40 MG/0.4 ML SYRINGE SUBCUT (11:43)
--- NOTE | 2020-10-16 11:55 | HO.VASCPN ---
Subjective Subjective Date of Service: 10/16/20 Patient reports: no new complaints and feels better Interval history: Patient seen and examined. Postop day 1 status post right BKA. No interval issues. He feels significantly better. Pain well controlled. Physical Exam Vital Signs: Vital Signs: Last Vital Signs Temp 96.8 F 10/16/20 07:35 Pulse 86 10/16/20 07:35 Resp 17 10/16/20 07:35 BP 100/55 L 10/16/20 07:35 Pulse Ox 96 10/16/20 07:35 Body Mass Index 36.7 Const: General: cooperative, healthy appearing and no acute distress Orientation/consciousness: oriented to person, oriented to place and oriented to time HENMT: Head: Yes normal to inspection Neck: Carotids: no bruits Chest: Chest palpation & inspection: normal inspection of the chest Resp: Effort & Inspection: normal respiratory effort and able to speak in complete sentences Auscultation: clear to auscultation bilaterally Cardio: Rate: regular rate Heart sounds: S1 normal heart sound present and S2 normal heart sound present GI: Inspection: Yes normal to inspection Skin: Other: Dressing clean dry intact General skin exam: no rashes or lesions noted Wounds: no wounds Neuro: General: oriented to person, oriented to place, oriented to time and CN's II-XI intact bilaterally Extrem: General: Yes normal to inspection, Yes full ROM and Yes no clubbing, cyanosis or edema Psych: Appearance: grossly normal and well kempt Speech and movement: Normal speech and movement present Affect: normal affect Progress Note: A&P Assessment and plan (1) Status post below-knee amputation: Status: Acute Assessment and Plan: Patient is doing well status post below-knee amputation. Continue with antibiotics and pain control. Will plan for dressing change. If stable would anticipate discharge later this week. He may be an excellent candidate for rehab placement. Thank you for allowing us to assist in his care. Fall Risk Details Current Medications: Current Medications Generic Name Dose Route Start Last Admin Trade Name Freq PRN Reason Stop Dose Admin Acetaminophen 650 mg 10/12/20 16:08 Acetaminophen 325 Mg Tablet PO Q6H PRN PAINFEV Albuterol Sulfate 2.5 mg 10/10/20 16:23 Albuterol Sulfate (0.083%) 2.5 Mg/3 Ml Vial.Neb INHALE ONCE PRN Wheezing Bisacodyl 5 mg 10/10/20 09:00 10/16/20 08:20 Bisacodyl 5 Mg Tablet.Dr PO 5 mg BID [facility] Administration Docusate Sodium 100 mg 10/10/20 09:00 10/16/20 08:20 Docusate Sodium 100 Mg Capsule PO Not Given BID [facility] Enoxaparin Sodium 40 mg 10/12/20 13:00 10/16/20 11:43 Enoxaparin Sodium 40 Mg/0.4 Ml Syringe SUBCUT 40 mg Q24H TJ Administration Gabapentin 600 mg 10/10/20 21:00 10/15/20 20:43 Gabapentin 600 Mg Tablet PO 600 mg BEDTIME [facility] Administration Daptomycin 500 mg/ Sodium 60 mls @ 100 mls/hr 10/10/20 10:00 10/16/20 11:42 Chloride IV 100 mls/hr Q24H [facility] Administration Insulin Glargine 30 unit 10/16/20 21:00 Insulin Glargine,Hum.Rec.Anlog 100 Unit/Ml 10 Ml Vial SUBCUT BEDTIME [facility] Insulin Human Lispro 0 unit 10/11/20 08:15 10/16/20 08:18 Insulin Lispro 100 Unit/Ml 3 Ml Vial SUBCUT 10 unit QIDACHS [facility] Administration Protocol Lactulose 20 gm 10/10/20 02:19 Lactulose 20 Gm/30 Ml Solution PO DAILY PRN Constipation Nystatin 1 appl 10/11/20 11:30 10/16/20 08:24 Nystatin Powder 15 Gm Bottle TOPICAL Not Given BID [facility] Protocol Oxycodone HCl 10 mg 10/15/20 19:25 10/16/20 05:27 Oxycodone Hcl Immed Release 5 Mg Tablet PO 10 mg Q4H PRN Administration Pain, Severe (Pain Scale 7-10) Pharmacy Consult 1 each 10/09/20 16:38 Consult Rx Perform Med Rec MISCELLANE ONCE PRN Consult order Polyethylene Glycol 17 gm 10/10/20 02:19 Polyethylene Glycol 3350 17 Gm Powd.Pack PO DAILY PRN Constipation Sodium Chloride 3 ml 10/10/20 08:00 10/16/20 08:19 0.9 % Sodium Chloride Flush 3 Ml Syringe IVFLUSH 3 ml QSHIFT [facility] Administration Vitamin D 25 mcg 10/10/20 09:00 10/16/20 08:20 Cholecalciferol (Vitamin D3) 25 Mcg Tablet PO 25 mcg DAILY TJ Administration Time Spent With Patient Time: Total time spent is greater than 50% in coordination of care (as documented) at patient's floor/unit and/or counseling patient: Time with patient: 15 - 24 minutes Procedures Date of Service Date of Service: 10/16/20
[2020-10-16 12:16] LABS: Glucose, Whole Blood 472 mg/dL (60-115)
[2020-10-16] MEDS: Insulin Lispro 100 UNIT/ML 3 ML VIAL 10 UNIT SUBCUT ×2 (13:00→17:23)
[2020-10-16] MEDS: 0.9 % Sodium Chloride 1,000 ML 100 ML IVCONT ×2 (13:02→21:56)
[2020-10-16] MEDS: Sodium Polystyrene Sulfon/Sorb 15 GM/60 ML ORAL.SUSP 30 GM PO (13:02)
--- NOTE | 2020-10-16 13:49 | HO.POSTANES ---
Post Anesthesia Evaluation Post Anesthesia Evaluation Vital Signs: Vital Signs Temp Pulse Resp BP Pulse Ox 10/16/20 12:00 98.2 F 87 17 100/55 L 93 10/16/20 07:35 96.8 F 86 17 100/55 L 96 10/16/20 04:00 97.1 F 60 18 108/67 94 Anesthesia: General Mental Status: Awake Pain Control: Satisfactory Nausea/Vomiting: None Hydration: Adequate Anesthesia-Related Issues: No Anes. Related Issues
[2020-10-16 16:14] LABS: Glucose, Whole Blood 410 mg/dL (60-115)
[2020-10-16] MEDS: ondansetron HCL 4 MG/2 ML VIAL IVPUSH (17:23)
[2020-10-16 20:54] LABS: Glucose, Whole Blood 358 mg/dL (60-115)
[2020-10-16] MEDS: Docusate Sodium 100 MG CAPSULE PO (21:52)
[2020-10-16] MEDS: Gabapentin 600 MG TABLET PO (21:52)
[2020-10-16] MEDS: Insulin Glargine,Hum.rec.anlog 100 UNIT/ML 10 ML VIAL 30 UNIT SUBCUT (21:53)
[2020-10-16] MEDS: Prochlorperazine Edisylate 10 MG/2 ML VIAL 5 MG IVPUSH (21:54)
[2020-10-16] MEDS: Nystatin Powder 15 GM BOTTLE 1 APPL TOPICAL (21:54)
[2020-10-17 04:00] VITALS: BP 109/60; PULSE 82; RESP 20; TEMP 36.3; O2SAT 94
--- NOTE | 2020-10-17 07:56 | P.PNVS_ITS ---
Subjective Subjective Date of Service: 10/17/20 Patient reports: no new complaints, feels better and pain is less Interval history: Patient seen and examined. Postop day 2 status post BKA. Doing well. Pain appears fairly well controlled. Tolerating a diet. Physical Exam Vital Signs: Vital Signs: Last Vital Signs Temp 97.3 F 10/17/20 04:00 Pulse 82 10/17/20 04:00 Resp 20 10/17/20 04:00 BP 109/60 10/17/20 04:00 Pulse Ox 94 10/17/20 04:00 Body Mass Index 36.7 Const: General: cooperative, healthy appearing and no acute distress Orientation/consciousness: oriented to person, oriented to place and oriented to time HENMT: Head: Yes normal to inspection Neck: Carotids: no bruits Chest: Chest palpation & inspection: normal inspection of the chest Resp: Effort & Inspection: normal respiratory effort and able to speak in complete sentences Auscultation: clear to auscultation bilaterally Cardio: Rate: regular rate Heart sounds: S1 normal heart sound present and S2 normal heart sound present GI: Inspection: Yes normal to inspection Skin: Other: Dressing change. Stump doing extremely well flap appears viable. General skin exam: no rashes or lesions noted Wounds: no wounds Neuro: General: oriented to person, oriented to place, oriented to time and CN's II-XI intact bilaterally Extrem: General: Yes normal to inspection, Yes full ROM and Yes no clubbing, cyanosis or edema Psych: Appearance: grossly normal and well kempt Speech and movement: Normal speech and movement present Affect: normal affect Progress Note: A&P Assessment and plan (1) Status post below-knee amputation: Status: Acute Assessment and Plan: Patient is stable status post BKA. He is stable from my perspective for discharge. Would most likely be better served at a rehab facility as the patient does live alone. Upon discharge he will require daily dressing changes of: xeroform, 4x4, and Kerlix wrap. He can follow up with me in approximately 2 weeks time for suture and staple removal. He does not require antibiotics from a wound perspective, as Infectious source has been removed. Thank you for allowing us to assist in his care. Fall Risk Details Current Medications: Current Medications Generic Name Dose Route Start Last Admin Trade Name Freq PRN Reason Stop Dose Admin Acetaminophen 650 mg 10/12/20 16:08 Acetaminophen 325 Mg Tablet PO Q6H PRN PAINFEV Albuterol Sulfate 2.5 mg 10/10/20 16:23 Albuterol Sulfate (0.083%) 2.5 Mg/3 Ml Vial.Neb INHALE ONCE PRN Wheezing Bisacodyl 5 mg 10/10/20 09:00 10/16/20 21:52 Bisacodyl 5 Mg Tablet.Dr PO 5 mg BID TJ Administration Docusate Sodium 100 mg 10/10/20 09:00 10/16/20 21:52 Docusate Sodium 100 Mg Capsule PO 100 mg BID TJ Administration Enoxaparin Sodium 40 mg 10/12/20 13:00 10/16/20 11:43 Enoxaparin Sodium 40 Mg/0.4 Ml Syringe SUBCUT 40 mg Q24H TJ Administration Gabapentin 600 mg 10/10/20 21:00 10/16/20 21:52 Gabapentin 600 Mg Tablet PO 600 mg BEDTIME TJ Administration Sodium Chloride 1,000 mls @ 100 mls/hr 10/16/20 12:45 10/16/20 21:56 Ns IVCONT 100 mls/hr .Q10H TJ Administration Insulin Glargine 30 unit 10/16/20 21:00 10/16/20 21:53 Insulin Glargine,Hum.Rec.Anlog 100 Unit/Ml 10 Ml Vial SUBCUT 30 unit BEDTIME TJ Administration Insulin Human Lispro 0 unit 10/11/20 08:15 10/16/20 21:52 Insulin Lispro 100 Unit/Ml 3 Ml Vial SUBCUT 10 unit QIDACHS [facility] Administration Protocol Lactulose 20 gm 10/10/20 02:19 Lactulose 20 Gm/30 Ml Solution PO DAILY PRN Constipation Nystatin 1 appl 10/11/20 11:30 10/16/20 21:54 Nystatin Powder 15 Gm Bottle TOPICAL 1 appl BID TJ Administration Protocol Ondansetron HCl 4 mg 10/16/20 17:14 10/16/20 17:23 Ondansetron Hcl 4 Mg/2 Ml Vial IVPUSH 4 mg Q8H PRN Administration Nausea and Vomiting Oxycodone HCl 10 mg 10/15/20 19:25 10/16/20 05:27 Oxycodone Hcl Immed Release 5 Mg Tablet PO 10 mg Q4H PRN Administration Pain, Severe (Pain Scale 7-10) Pharmacy Consult 1 each 10/09/20 16:38 Consult Rx Perform Med Rec MISCELLANE ONCE PRN Consult order Polyethylene Glycol 17 gm 10/10/20 02:19 Polyethylene Glycol 3350 17 Gm Powd.Pack PO DAILY PRN Constipation Sodium Chloride 3 ml 10/10/20 08:00 10/17/20 00:03 0.9 % Sodium Chloride Flush 3 Ml Syringe IVFLUSH Not Given QSHIFT TJ Vitamin D 25 mcg 10/10/20 09:00 10/16/20 08:20 Cholecalciferol (Vitamin D3) 25 Mcg Tablet PO 25 mcg DAILY TJ Administration Time Spent With Patient Time: Total time spent is greater than 50% in coordination of care (as documented) at patient's floor/unit and/or counseling patient: Time with patient: 15 - 24 minutes Procedures Date of Service Date of Service: 10/17/20
[2020-10-17 08:00] VITALS: BP 115/65; PULSE 77; RESP 18; TEMP 36.2; O2SAT 94
[2020-10-17] MEDS: ondansetron HCL 4 MG/2 ML VIAL IVPUSH ×2 (08:32→16:58)
[2020-10-17] MEDS: Insulin Lispro 100 UNIT/ML 3 ML VIAL SUBCUT ×4 (08:33→21:03)
[2020-10-17] MEDS: 0.9 % Sodium Chloride 1,000 ML 100 ML IVCONT (08:34)
[2020-10-17 08:53] LABS: Glucose, Whole Blood 264 mg/dL (60-115)
[2020-10-17 09:39] LABS: Anion Gap 13 (12-20); Blood Urea Nitrogen 20 mg/dL (9-16); Calcium 7.8 mg/dL (8.4-10.2); Carbon Dioxide 30 mmol/L (22-29); Chloride 97 mmol/L (96-108); Creatinine Clr Calc Pharmacy 127.6; Estimated Glomerular Filt Rate > 60; Glucose Random 271 mg/dL (60-115); Potassium 5.1 mmol/L (3.3-5.1); Sodium 135 mmol/L (135-145)
[2020-10-17] MEDS: Cholecalciferol (Vitamin D3) 25 MCG TABLET PO (10:41)
[2020-10-17] MEDS: bisacodyL 5 MG TABLET.DR PO ×2 (10:41→21:01)
[2020-10-17] MEDS: Docusate Sodium 100 MG CAPSULE PO ×2 (10:41→21:01)
[2020-10-17 11:45] VITALS: BP 130/67; PULSE 78; RESP 18; TEMP 36.2; O2SAT 94
[2020-10-17 12:12] LABS: Glucose, Whole Blood 233 mg/dL (60-115)
--- NOTE | 2020-10-17 12:38 | MHC.CM.PN ---
PER MULTIDISCIPLINARY ROUNDS ANTICIPATED D/C TOMORROW 10/18/20 IF PT'S BLOOD SUGARS HAVE DECREASED, CM TO UPDATE REFERRAL FOR [place]. DISCHARGE PLAN: STR W/BLS TRANSPORT.
--- NOTE | 2020-10-17 12:40 | MHC.CM.PN ---
CM RECEIVED CALL FROM PTS DENTAL OFFICE RECEPTIONIST VINEET AT [facility] AT 12:35PM FOR UPDATE ON DISCHARGE PLAN, VINEET WAS INFORMED OF POSSIBLE D/C FOR TOMORROW 10/18/20 AND PLAN FOR SHORT TERM REHAB AT [facility].
--- NOTE | 2020-10-17 12:49 | P.PNIM_ITS ---
Subjective Subjective Date of Service: 10/17/20 Interval History: Patient seen and examined at bedside Patient reported nausea and reported abdominal discomfort Constitutional Constitutional: Reports no additional constitutional complaints ENT Ears, Nose, Mouth, and Throat: Reports Normal hearing present Cardiovascular Cardiovascular: Denies chest pain, Denies chest pain at rest, Denies chest pain with activity and Denies pedal edema Respiratory Respiratory: Denies cough Gastrointestinal Gastrointestinal: Denies abdominal pain Musculoskeletal Musculoskeletal: Denies abnormal gait, Denies muscle cramps and Denies radiating pain into limb Integumentary/Breasts Skin/Breast: Denies skin ulcer and Denies wounds Neurologic Neurologic: Reports Normal hearing present and Denies abnormal gait Psychiatric Psychiatric: Reports no additional psychiatric complaints Physical Exam Vital Signs: Vital Signs: Last Vital Signs Temp 97.2 F 10/17/20 11:45 Pulse 78 10/17/20 11:45 Resp 18 10/17/20 11:45 BP 130/67 10/17/20 11:45 Pulse Ox 94 10/17/20 11:45 Body Mass Index 36.7 Const: Other: General - no acute distress, appears comfortable Cardiovascular - regular rate and rhythm, S1-S2 Lungs - normal respiratory effort, clear to auscultation bilaterally, no wheezing Abdomen - soft, non-tender, no rebound or guarding Extremities - dressing in place Neuro - awake and alert, no focal deficits foot ulcer s/p TMA s/p BKA Neuro: Cranial nerves: Yes Normal hearing present Objective Data Current Medications Generic Name Dose Route Start Last Admin Trade Name Freq PRN Reason Stop Dose Admin Acetaminophen 650 mg 10/12/20 16:08 Acetaminophen 325 Mg Tablet PO Q6H PRN PAINFEV Albuterol Sulfate 2.5 mg 10/10/20 16:23 Albuterol Sulfate (0.083%) 2.5 Mg/3 Ml Vial.Neb INHALE ONCE PRN Wheezing Bisacodyl 5 mg 10/10/20 09:00 10/17/20 10:41 Bisacodyl 5 Mg Tablet.Dr PO 5 mg BID TJ Administration Docusate Sodium 100 mg 10/10/20 09:00 10/17/20 10:41 Docusate Sodium 100 Mg Capsule PO 100 mg BID TJ Administration Enoxaparin Sodium 40 mg 10/12/20 13:00 10/16/20 11:43 Enoxaparin Sodium 40 Mg/0.4 Ml Syringe SUBCUT 40 mg Q24H [facility] Administration Gabapentin 600 mg 10/10/20 21:00 10/16/20 21:52 Gabapentin 600 Mg Tablet PO 600 mg BEDTIME [facility] Administration Insulin Glargine 40 unit 10/17/20 21:00 Insulin Glargine,Hum.Rec.Anlog 100 Unit/Ml 10 Ml Vial SUBCUT BEDTIME [facility] Insulin Human Lispro 0 unit 10/11/20 08:15 10/17/20 12:10 Insulin Lispro 100 Unit/Ml 3 Ml Vial SUBCUT 4 unit QIDACHS [facility] Administration Protocol Lactulose 20 gm 10/10/20 02:19 Lactulose 20 Gm/30 Ml Solution PO DAILY PRN Constipation Nystatin 1 appl 10/11/20 11:30 10/17/20 10:46 Nystatin Powder 15 Gm Bottle TOPICAL Not Given BID [facility] Protocol Omeprazole 20 mg 10/17/20 16:30 Omeprazole 20 Mg Capsule. PO BID@0630,0100 [facility] Ondansetron HCl 4 mg 10/16/20 17:14 10/17/20 08:32 Ondansetron Hcl 4 Mg/2 Ml Vial IVPUSH 4 mg Q8H PRN Administration Nausea and Vomiting Oxycodone HCl 10 mg 10/15/20 19:25 10/16/20 05:27 Oxycodone Hcl Immed Release 5 Mg Tablet PO 10 mg Q4H PRN Administration Pain, Severe (Pain Scale 7-10) Pharmacy Consult 1 each 10/09/20 16:38 Consult Rx Perform Med Rec MISCELLANE ONCE PRN Consult order Polyethylene Glycol 17 gm 10/10/20 02:19 Polyethylene Glycol 3350 17 Gm Powd.Pack PO DAILY PRN Constipation Sodium Chloride 3 ml 10/10/20 08:00 10/17/20 08:33 0.9 % Sodium Chloride Flush 3 Ml Syringe IVFLUSH Not Given QSHIFT [facility] Vitamin D 25 mcg 10/10/20 09:00 10/17/20 10:41 Cholecalciferol (Vitamin D3) 25 Mcg Tablet PO 25 mcg DAILY TJ Administration Labs CBC & Chem 7: 10/16/20 08:04 10/17/20 08:48 Microbiology Microbiology Results: Microbiology 10/09/20 18:16 Blood - Venous Blood Culture - Final No growth after 5 days. 10/09/20 18:15 Blood - Venous Blood Culture - Final No growth after 5 days. Assessment and Plan (1) Diabetic foot ulcer: Status: Acute (2) MRSA bacteremia: Status: Acute Assessment and Plan: This is a 60 yo M with a PMH of DM, MRSA bacteremia due to diabetic foot infection (currently being treated with daptomycin) who is admitted for: 1. Diabetic foot infection s/p TMA s/p BKA on 10/15/20 due to poor healing Vascular surgery following Completed daptomycin for 4 weeks 2.MRSA bactermia (from prior admit) blood cx from this admission negative Supposed to do daptomycin for 6 weeks but given patient underwent BKA id recommended 4 weeks of daptomycin Patient Completed daptomycin 4 weeks CPK level was up trending down now Monitor CPK 3. DM Blood glucose on higher side diabetic diet Lantus dose increased to 40 Continue SSI Monitor blood glucose 4. Recent thrombocytopenia was suspected due to vancomcyin now normalized monitor CBCs 5. History of MGUS outpatient oncology f/u 6. HypoNa resolved monitor sodium DVT pptx, lovenox
[2020-10-17] MEDS: Enoxaparin Sodium 40 MG/0.4 ML SYRINGE SUBCUT (12:55)
[2020-10-17] MEDS: polyethylene glycoL 3350 17 GM POWD.PACK PO (13:18)
[2020-10-17 15:34] VITALS: BP 140/72; PULSE 78; RESP 16; TEMP 36.4; O2SAT 93
[2020-10-17 16:28] LABS: Glucose, Whole Blood 207 mg/dL (60-115)
[2020-10-17] MEDS: 0.9 % Sodium Chloride Flush 3 ML SYRINGE IVFLUSH (17:37)
[2020-10-17 19:23] VITALS: BP 136/65; PULSE 76; RESP 18; TEMP 36.6; O2SAT 96
[2020-10-17 20:41] LABS: Glucose, Whole Blood 204 mg/dL (60-115)
[2020-10-17] MEDS: Gabapentin 600 MG TABLET PO (21:00)
[2020-10-17] MEDS: Insulin Glargine,Hum.rec.anlog 100 UNIT/ML 10 ML VIAL 40 UNIT SUBCUT (21:03)
[2020-10-17] MEDS: oxyCODONE HCl Immed Release 5 MG TABLET PO (21:13)
[2020-10-17] MEDS: Nystatin Powder 15 GM BOTTLE 1 APPL TOPICAL (22:24)
[2020-10-17 23:50] VITALS: PULSE 95; RESP 16; O2SAT 76
[2020-10-18] VITALS: BP 117/58; PULSE 76; RESP 18; TEMP 36.5; O2SAT 95
[2020-10-18] MEDS: 0.9 % Sodium Chloride Flush 3 ML SYRINGE IVFLUSH ×2 (00:08→08:29)
[2020-10-18 04:00] VITALS: BP 117/56; PULSE 70; RESP 20; TEMP 37.2; O2SAT 96
[2020-10-18] MEDS: Omeprazole 20 MG CAPSULE.DR PO (05:33)
[2020-10-18 07:17] LABS: Anion Gap 13 (12-20); Blood Urea Nitrogen 12 mg/dL (9-16); Calcium 7.5 mg/dL (8.4-10.2); Carbon Dioxide 29 mmol/L (22-29); Chloride 99 mmol/L (96-108); Estimated Glomerular Filt Rate > 60; Glucose Random 190 mg/dL (60-115); Potassium 4.5 mmol/L (3.3-5.1); Sodium 136 mmol/L (135-145)
[2020-10-18 07:37] VITALS: BP 126/64; PULSE 73; RESP 17; TEMP 36.8; O2SAT 95
[2020-10-18 08:01] LABS: Hematocrit 24.8 % (42-52); Hemoglobin 8.1 g/dl (14.0-18.0); Mean Corpuscular HGB Conc 32.7 g/dl (31.0-36.0); Mean Corpuscular Hemoglobin 31.2 pg (27.0-33.0); Mean Corpuscular Volume 95.4 fL (80-98); Mean Platelet Volume 9.9 fL (9.4-12.4); NRBC Pct Auto 0.2 /100WBC (0.0-0.2); Platelet Count 424 X10*3/uL (160-400); Red Cell Distribution Width 12.5 % (11.0-16.0); White Blood Count 12.2 X10*3/uL (4.8-10.8)
[2020-10-18 08:06] VITALS: PULSE 95; RESP 18; O2SAT 74
[2020-10-18 08:13] LABS: Glucose, Whole Blood 183 mg/dL (60-115)
[2020-10-18] MEDS: Nystatin Powder 15 GM BOTTLE 1 APPL TOPICAL (08:29)
[2020-10-18] MEDS: Cholecalciferol (Vitamin D3) 25 MCG TABLET PO (08:29)
[2020-10-18] MEDS: bisacodyL 5 MG TABLET.DR PO (08:29)
[2020-10-18] MEDS: Insulin Lispro 100 UNIT/ML 3 ML VIAL SUBCUT ×3 (08:29→17:48)
[2020-10-18] MEDS: Docusate Sodium 100 MG CAPSULE PO (08:29)
[2020-10-18 08:37] LABS: Band Neutrophils Percent 12 % (3-5); Eosinophils Absolute Manual 0.2 X10*3/UL (0.0-0.8); Eosinophils Percent Manual 2 % (0-4); Lymphocytes Absolute Manual 1.3 X10*3/uL (0.6-4.8); Lymphocytes Percent Manual 11 % (20-40); Monocytes Absolute Manual 0.5 X10*3/uL (0.0-1.2); Monocytes Percent Manual 4 % (2-11); Neutrophils Absolute Manual 10.1 X10*3/uL (2.2-7.9); Neutrophils Percent Manual 71 % (45-73); RBC Morphology NORMAL
[2020-10-18 08:39] LABS: Hypochromasia 1+; Microcytosis 1+; Platelet Estimate INCREASED (NORMAL); Platelet Morphology Comment NORMAL
--- NOTE | 2020-10-18 10:17 | HO.VASCPN ---
Subjective Subjective Date of Service: 10/18/20 Patient reports: no new complaints and feels better Interval history: Patient is postop day 3 status post BKA. Doing significantly better. Pain in leg and groin have significantly decreased. In much better spirits today. He is agreeable to rehab placement. Physical Exam Vital Signs: Vital Signs: Last Vital Signs Temp 98.3 F 10/18/20 07:37 Pulse 73 10/18/20 07:37 Resp 18 10/18/20 08:06 BP 126/64 10/18/20 07:37 Pulse Ox 95 10/18/20 07:37 Body Mass Index 36.7 Const: General: cooperative, healthy appearing and no acute distress Orientation/consciousness: oriented to person, oriented to place and oriented to time HENMT: Head: Yes normal to inspection Neck: Carotids: no bruits Chest: Chest palpation & inspection: normal inspection of the chest Resp: Effort & Inspection: normal respiratory effort and able to speak in complete sentences Auscultation: clear to auscultation bilaterally Cardio: Rate: regular rate Heart sounds: S1 normal heart sound present and S2 normal heart sound present GI: Inspection: Yes normal to inspection Skin: General skin exam: no rashes or lesions noted Wounds: no wounds and amputation site (Well-healing) Neuro: General: oriented to person, oriented to place, oriented to time and CN's II-XI intact bilaterally Extrem: General: Yes normal to inspection, Yes full ROM and Yes no clubbing, cyanosis or edema Psych: Appearance: grossly normal and well kempt Speech and movement: Normal speech and movement present Affect: normal affect Progress Note: A&P Assessment and plan (1) Status post below-knee amputation: Status: Acute Assessment and Plan: Patient doing well status post below-knee amputation. I did have a abdoul discussion with the patient about risk factor modification as his hemoglobin A1c was above 9. He is scheduled for transfer to rehab facility for today. Wound care instructions:xerofrom, 4x4, and Kerlix wrap to be changed daily. He can follow up with me in approximately 2 weeks time for suture and staple removal. Thank you for allowing us to assist in his care. Fall Risk Details Current Medications: Current Medications Generic Name Dose Route Start Last Admin Trade Name Freq PRN Reason Stop Dose Admin Acetaminophen 650 mg 10/12/20 16:08 Acetaminophen 325 Mg Tablet PO Q6H PRN PAINFEV Bisacodyl 5 mg 10/10/20 09:00 10/18/20 08:29 Bisacodyl 5 Mg Tablet. PO 5 mg BID TJ Administration Docusate Sodium 100 mg 10/10/20 09:00 10/18/20 08:29 Docusate Sodium 100 Mg Capsule PO 100 mg BID TJ Administration Enoxaparin Sodium 40 mg 10/12/20 13:00 10/17/20 12:55 Enoxaparin Sodium 40 Mg/0.4 Ml Syringe SUBCUT 40 mg Q24H TJ Administration Gabapentin 600 mg 10/10/20 21:00 10/17/20 21:00 Gabapentin 600 Mg Tablet PO 600 mg BEDTIME [facility] Administration Insulin Glargine 40 unit 10/17/20 21:00 10/17/20 21:03 Insulin Glargine,Hum.Rec.Anlog 100 Unit/Ml 10 Ml Vial SUBCUT 40 unit BEDTIME [facility] Administration Insulin Human Lispro 0 unit 10/11/20 08:15 10/18/20 08:29 Insulin Lispro 100 Unit/Ml 3 Ml Vial SUBCUT 2 unit QIDACHS [facility] Administration Protocol Lactulose 20 gm 10/10/20 02:19 Lactulose 20 Gm/30 Ml Solution PO DAILY PRN Constipation Nystatin 1 appl 10/11/20 11:30 10/18/20 08:29 Nystatin Powder 15 Gm Bottle TOPICAL 1 appl BID [facility] Administration Protocol Omeprazole 20 mg 10/17/20 16:30 10/18/20 05:33 Omeprazole 20 Mg Capsule. PO 20 mg BID@0630,1630 [facility] Administration Ondansetron HCl 4 mg 10/16/20 17:14 10/17/20 16:58 Ondansetron Hcl 4 Mg/2 Ml Vial IVPUSH 4 mg Q8H PRN Administration Nausea and Vomiting Oxycodone HCl 5 mg 10/17/20 12:51 10/17/20 21:13 Oxycodone Hcl Immed Release 5 Mg Tablet PO 5 mg Q4H PRN Administration Pain, Severe (Pain Scale 7-10) Pharmacy Consult 1 each 10/09/20 16:38 Consult Rx Perform Med Rec MISCELLANE ONCE PRN Consult order Polyethylene Glycol 17 gm 10/10/20 02:19 Polyethylene Glycol 3350 17 Gm Powd.Pack PO DAILY PRN Constipation Polyethylene Glycol 17 gm 10/17/20 13:00 10/18/20 08:37 Polyethylene Glycol 3350 17 Gm Powd.Pack PO Not Given DAILY TJ Sodium Chloride 3 ml 10/10/20 08:00 10/18/20 08:29 0.9 % Sodium Chloride Flush 3 Ml Syringe IVFLUSH 3 ml QSHIFT TJ Administration Vitamin D 25 mcg 10/10/20 09:00 10/18/20 08:29 Cholecalciferol (Vitamin D3) 25 Mcg Tablet PO 25 mcg DAILY TJ Administration Time Spent With Patient Time: Total time spent is greater than 50% in coordination of care (as documented) at patient's floor/unit and/or counseling patient: Time with patient: 25 - 35 minutes Procedures Date of Service Date of Service: 10/18/20
[2020-10-18 11:18] LABS: Glucose, Whole Blood 189 mg/dL (60-115)
[2020-10-18 11:51] LABS: COVID-19 Test Negative (Negative); IDNOW Serial# 9DD0AD1C
[2020-10-18 11:58] VITALS: BP 125/59; PULSE 69; RESP 19; TEMP 36.9; O2SAT 94
--- NOTE | 2020-10-18 12:22 | HO.PICC ---
PICC Line Insertion PICC REMOVAL 1. DATE: 10/18/20 2. REASON REMOVED: PER REQUEST; NO LONGER NEEDED 3. INSERTED LENGTH: 49 CM 4. REMOVED LENGTH: 49 CM FUNCTIONAL INTACT SINGLE LUMEN PICC LINE 5. A DRESSING WAS PLACED OVER REMOVAL SITE. NO NOTED BLEEDING/SWELLING/REDNESS. PT DENIES ANY COMPLAINTS R/T PICC LINE AND RUE.
--- NOTE | 2020-10-18 12:56 | MHC.CM.PN ---
PATIENT TO TRANSFER TO [facility]IA [facility] SET UP FOR WILL CALL RN AWARE OF PLAN. IMM 10/17 IN CHART.
--- NOTE | 2020-10-18 14:09 | P.DS_ITS ---
DS: Providers Provider Date of Service: 10/18/20 Date of admission: 10/10/20 02:08 Primary care physician: Virginie Liao MD Consults: 10/10/20 02:23 Consult to Infectious Diseases Routine Consulting Provider: Freya Fleming Reason for consultation: dm foot infection 10/10/20 02:25 Consult to Vascular Surgery Routine Consulting Provider: Cameron Figueroa Reason for consultation: dm foot infection 10/10/20 14:35 Consult Respiratory Therapy Routine Reason for consultation: History of sleep apnea DS: Diagnosis Discharge Diagnosis (1) Status post below-knee amputation: Status: Acute DS: Medications Discharge Medications Home Medications: Home Medications Medication Instructions Recorded Confirmed Victoza 3-Chet 1.8 mg SUBCUT DAILY 07/17/20 10/09/20 aspirin 81 mg PO DAILY 07/17/20 10/09/20 gabapentin 600 mg PO BEDTIME 07/17/20 10/09/20 lisinopril 5 mg PO DAILY 07/17/20 10/09/20 metformin 1,000 mg PO BID 07/17/20 10/09/20 bisacodyl 5 mg PO BID 09/04/20 10/09/20 cholecalciferol (vitamin D3) 25 mcg PO DAILY 09/04/20 10/09/20 blood sugar diagnostic #10 ea 10/01/20 fluoxetine 20 mg capsule 20 mg PO DAILY 10/01/20 10/09/20 Tresiba FlexTouch U-100 SUBCUT DAILY 10/09/20 atorvastatin 40 mg PO BEDTIME 10/09/20 10/09/20 Previous Rx's Medication Instructions Recorded docusate sodium 100 mg PO BID #60 cap 09/26/20 lactulose 30 ml PO DAILY PRN #480 ml 09/26/20 polyethylene glycol 3350 17 g PO DAILY PRN #30 ea 09/26/20 DS: Summary Hospital Course Hospital Course: HPI 60-year-old male with a past medical history of hypertension, hyperlipidemia, diabetes, diabetic foot ulcer, peripheral neuropathy, MGUS, thrombocytopenia, history of right great toe amputation, KASSANDRA recent admission to the hospital for diabetic foot infection/MRSA bacteremia-discharged on 4 more weeks of daptomycin IV via PICC line placed on 09/09/2020; history of right great toe amputation on 09/10/2020 followed by revision on 09/18/2020; drug-induced thrombocytopenia- presented to the hospital today with a chief complaint of right lower extremity pain. Patient denies any fever chills cough. Denies any numbness tingling. Denies any headaches. Review of all other systems is negative except mentioned above ER course: Had right upper extremity venous duplex-negative for any blood clots. Patient continued on daptomycin via PICC line. ER team discussed with Dr. Figueroa who from vascular surgery for transmetatarsal amputation-> who recommended admission to Medicine. Hospital course 60-year-old male admitted with infected Right diabetic foot ulcer , patient was recently discharged on daptomycin for MRSA bacteremia, patient was continued on IV daptomycin, blood cultures were sent, vascular surgery was consulted, patient underwent Right TMA , given poor healing , patient underwent right BKA, blood culture during this admission was negative, patient completed 4 weeks of IV daptomycin, given patient underwent BKA and blood cultures were negative id recommended no more IV antibiotic, postop patient was doing well, patient was cleared by vascular surgery for discharge, during the hospital course patient noticed be hyperglycemic insulin was adjusted, blood glucose improved and remained stable, patient was evaluated by Physical therapy recommended short- term rehab, patient was discharged to short-term rehab, patient will follow up Dr. Figueroa in 2 weeks Wound care instructions:xerofrom, 4x4, and Kerlix wrap to be changed daily. follow up Dr Figueroa approximately 2 weeks time for suture and staple removal. Time Spent with Patient Time attestation: Total time spent providing and/or coordinating discharge services: Discharge coordination time: Greater than 30 minutes Physical Exam Vital Signs: Vital Signs: Last Vital Signs Temp 98.4 F 10/18/20 11:58 Pulse 69 10/18/20 11:58 Resp 19 10/18/20 11:58 BP 125/59 L 10/18/20 11:58 Pulse Ox 94 10/18/20 11:58 Body Mass Index 36.7 DS: Data Data Completed and Pending Completed studies during hospitalization [Text1]: Pending at discharge 10/10/20 17:08 Surgical [PTH] Routine 10/15/20 16:29 Surgical [PTH] Routine Procedures Assistance with Respiratory Ventilation, Less than 24 Consecutive Hours, Continuous Positive Airway Pressure (09/05/20) Detachment at Right 1st Toe, Complete, Open Approach (09/05/20) Detachment at Right 1st Toe, High, Open Approach (09/05/20) Dilation of Right Posterior Tibial Artery, Percutaneous Approach (09/05/20) Insertion of Infusion Device into Superior Vena Cava, Percutaneous Approach (09/05/20) Transfusion of Nonautologous Platelets into Peripheral Vein, Percutaneous Approach (09/05/20) Ultrasonography of Superior Vena Cava, Guidance (09/05/20) Labs on day of discharge: Laboratory Results - last 24 hr 10/17/20 10/17/20 10/18/20 16:23 20:33 06:18 WBC RBC Hgb Hct MCV MCH MCHC RDW Plt Count MPV Immature Gran % (Auto) Neut % (Auto) Lymph % (Auto) [place] % (Auto) Eos % (Auto) Baso % (Auto) Lymph # (Auto) [place] # (Auto) Eos # (Auto) Baso # (Auto) Abs Immat Gran (auto) Absolute Neuts (auto) Absolute Nucleated RBC Nucleated RBC % (auto) Neutrophils % (Manual) Band Neutrophils % Lymphocytes % (Manual) Monocytes % (Manual) Eosinophils % (Manual) Abs Neuts (Manual) Lymphocytes # (Manual) Monocytes # (Manual) Eosinophils # (Manual) Platelet Estimate Plt Morphology Comment RBC Morphology Hypochromasia Microcytosis Sodium 136 Potassium 4.5 Chloride 99 Carbon Dioxide 29 Anion Gap 13 BUN 12 Creatinine 0.75 Estim Creat Clear Calc 148.0 Estimated GFR > 60 POC Glucose 207 H 204 H Random Glucose 190 H Calcium 7.5 L Total Creatine Kinase 465 H COVID-19 (JOSE) COVID-19 Clin Com 10/18/20 10/18/20 10/18/20 06:18 07:36 11:05 WBC 12.2 H RBC 2.60 L Hgb 8.1 L Hct 24.8 L MCV 95.4 MCH 31.2 MCHC 32.7 RDW 12.5 Plt Count 424 H MPV 9.9 Immature Gran % (Auto) Cancelled Neut % (Auto) Cancelled Lymph % (Auto) Cancelled [place] % (Auto) Cancelled Eos % (Auto) Cancelled Baso % (Auto) Cancelled Lymph # (Auto) Cancelled [place] # (Auto) Cancelled Eos # (Auto) Cancelled Baso # (Auto) Cancelled Abs Immat Gran (auto) Cancelled Absolute Neuts (auto) Cancelled Absolute Nucleated RBC 0.020 H Nucleated RBC % (auto) 0.2 Neutrophils % (Manual) 71 Band Neutrophils % 12 H Lymphocytes % (Manual) 11 L Monocytes % (Manual) 4 Eosinophils % (Manual) 2 Abs Neuts (Manual) 10.1 H Lymphocytes # (Manual) 1.3 Monocytes # (Manual) 0.5 Eosinophils # (Manual) 0.2 Platelet Estimate INCREASED Plt Morphology Comment NORMAL RBC Morphology NORMAL Hypochromasia 1+ Microcytosis 1+ Sodium Potassium Chloride Carbon Dioxide Anion Gap BUN Creatinine Estim Creat Clear Calc Estimated GFR POC Glucose 183 H 189 H Random Glucose Calcium Total Creatine Kinase COVID-19 (JOSE) COVID-19 Clin Com 10/18/20 11:18 WBC RBC Hgb Hct MCV MCH MCHC RDW Plt Count MPV Immature Gran % (Auto) Neut % (Auto) Lymph % (Auto) [place] % (Auto) Eos % (Auto) Baso % (Auto) Lymph # (Auto) [place] # (Auto) Eos # (Auto) Baso # (Auto) Abs Immat Gran (auto) Absolute Neuts (auto) Absolute Nucleated RBC Nucleated RBC % (auto) Neutrophils % (Manual) Band Neutrophils % Lymphocytes % (Manual) Monocytes % (Manual) Eosinophils % (Manual) Abs Neuts (Manual) Lymphocytes # (Manual) Monocytes # (Manual) Eosinophils # (Manual) Platelet Estimate Plt Morphology Comment RBC Morphology Hypochromasia Microcytosis Sodium Potassium Chloride Carbon Dioxide Anion Gap BUN Creatinine Estim Creat Clear Calc Estimated GFR POC Glucose Random Glucose Calcium Total Creatine Kinase COVID-19 (JOSE) Negative COVID-19 Clin Com See Note Discharge Plan Discharge Anticipated Discharge Date/Time: 10/18/20 11:38 Patient Disposition: Xfer SNF Referrals: [facility] [Outside] Virginie Liao MD [Primary Care Provider] - (SNF- ) Discharge Medications: Continued atorvastatin 40 mg tablet 40 mg PO BEDTIME RF: 0 Tresiba FlexTouch U-100 100 unit/mL (3 mL) insulin pen subcut DAILY RF: 0 gabapentin 600 mg tablet 600 mg PO BEDTIME RF: 0 aspirin 81 mg tablet,delayed release (DR/EC) 81 mg PO DAILY RF: 0 metformin 1,000 mg tablet 1,000 mg PO BID RF: 0 lisinopril 5 mg tablet 5 mg PO DAILY RF: 0 Victoza 3-Chet 0.6 mg/0.1 mL (18 mg/3 mL) pen injector 1.8 mg subcut DAILY RF: 0 cholecalciferol (vitamin D3) 25 mcg (1,000 unit) tablet 25 mcg PO DAILY RF: 0 bisacodyl 5 mg tablet,delayed release (DR/EC) 5 mg PO BID RF: 0 polyethylene glycol 3350 17 gram Powder In Packet 17 g PO DAILY PRN (Reason: Constipation) Qty: 30 RF: 0 docusate sodium 100 mg Capsule 100 mg PO BID Qty: 60 RF: 0 lactulose 20 gram/30 mL Solution 30 ml PO DAILY PRN (Reason: Constipation) Qty: 480 RF: 0 Discharge Orders: Discharge Order (Routine); Ordered 10/18/20 Ordered By: Brodie Lawson Activity on Discharge: As tolerated Stand Alone Forms: Patient Portal Discharge page Care Plan Goals: STR Health Concerns: Diabetes , s/p BKA Plan of Treatment: see above
[2020-10-18] MEDS: Enoxaparin Sodium 40 MG/0.4 ML SYRINGE SUBCUT (14:15)
[2020-10-18 17:19] LABS: Glucose, Whole Blood 178 mg/dL (60-115)
--- NOTE | 2020-10-18 18:05 | MHC.CM.PN ---
Sher requested to meet with by Stephy CUEVAS. It seems that when pt was ready to d/c to [facility] and ambulance was at bedside, pt refused to leave. Stated he had diarrhea and was going to appeal his d/c. Ambulance subsequently left. SHER met with pt. Upon entering room, pt stated he was ready to go to SNF. States he was concerned about diarrhea and did not want to have a problem in the ambulance. SHER again asked pt if he was ready to d/c to SNF [facility] and pt said yes, amna. Aware that RN will call ambulance. Reviewed about with Stephy CUEVAS. She will call ambulance for transport.
== END 2020-10-18 18:30 | disposition skilled nursing facility (03) | DRG 617 ==
LOC: HO.ED 18:08 → HO.EDOVER 10-10 07:24 → HO.S3 10-10 12:23
PROVIDERS: Family Medicine; Internal Medicine; Nurse Practitioner Primary Care; Surgery Vascular Surgery; Admitting Provider Hospitalist; Emergency Provider Internal Medicine; PCP Internal Medicine; Visit Provider Internal Medicine
PROC: 0Y6M0Z9 Detachment at Right Foot, Partial 1st Ray, Open Approach (ICD-10-PCS; CPT 28805; principal; 2020-10-10 15:30)
PROC: 0Y6H0Z2 Detachment at Right Lower Leg, Mid, Open Approach (ICD-10-PCS; CPT 27880; principal; 2020-10-15 15:20)
DX: E11.621 Type 2 diabetes mellitus with foot ulcer (principal); E87.1 Hypo-osmolality and hyponatremia; E11.42 Type 2 diabetes mellitus with diabetic polyneuropathy; E78.5 Hyperlipidemia, unspecified; D69.6 Thrombocytopenia, unspecified; E11.65 Type 2 diabetes mellitus with hyperglycemia; D47.2 Monoclonal gammopathy; T87.81 Dehiscence of amputation stump; L97.519 Non-pressure chronic ulcer of other part of right foot with unspecified severity; Z91.19 Patient's noncompliance with other medical treatment and regimen; Z20.822 Contact with and (suspected) exposure to COVID-19; Z79.4 Long term (current) use of insulin; Z79.82 Long term (current) use of aspirin; Z79.899 Other long term (current) drug therapy
CPT/HCPCS: 36415; 36573; 70450; 73521; 80048; 80053; 81001; 82550; 82947; 83036; 83605; 85007; 85025; 85027; 85610; 85730; 86850; 86900; 86901; 87040; 87635; 88305; 88307; 88311; 93005; 93926; 93971; 94660; 97162; 97167; 99285; J0131; J0878; J1100; J1650; J2250; J2270; J2370; J2405; J3010; J3370

== ENCOUNTER → 2020-10-10 02:08 | Outpatient (BNV) | payer OTHER, SELFPAY | PROVIDERS: Admitting Provider Hospitalist; Emergency Provider Internal Medicine; PCP Internal Medicine; Visit Provider Internal Medicine | DX: R78.81 Bacteremia (principal); B95.62 Methicillin resistant Staphylococcus aureus infection as the cause of diseases classified elsewhere; D69.6 Thrombocytopenia, unspecified ==

== ENCOUNTER → 2020-10-31 11:19 | Outpatient (BNVA) | payer OTHER, SELFPAY | PROVIDERS: PCP Internal Medicine; Visit Provider Surgery Vascular Surgery | DX: R53.1 Weakness (principal) | CPT/HCPCS: 99212 ==

== ENCOUNTER 2020-10-31 12:20 | Emergency (ER) | payer OTHER, SELFPAY ==
--- NOTE | ~2020-10-31 | CT_ITS ---
EXAMINATION: CT ABDOMEN AND PELVIS WITH CONTRAST CLINICAL INFORMATION: Right lower quadrant abdominal pain, constipation. Right groin lymphadenopathy. COMPARISON: None TECHNIQUE: Multidetector volumetric images were obtained from the superior aspect of the liver through the pubic symphysis following administration 85 mL of Omnipaque 350 intravenous contrast. Sagittal and coronal reformatted images were obtained on the technologist's workstation. Oral contrast: No. This CT examination was performed using dose optimization techniques as appropriate, variously including the following: *Automated exposure control *Adjustment of mA and/or kV according to patient size (this includes techniques or standardized protocols for targeted exams where dose is matched to indication/reason for exam; i.e. extremities or head) *Use of iterative reconstruction technique DLP: 1073 mGy-cm FINDINGS: LUNG BASES: There is right basilar band-like atelectasis. The left lung base clear. The heart size is normal. LIVER, GALLBLADDER, AND BILIARY TREE: The liver is normal in size, shape, and attenuation. No focal hepatic lesion or biliary ductal dilatation is present. The gallbladder has been surgically removed. PANCREAS: Unremarkable. SPLEEN: Unremarkable. ADRENAL GLANDS: Unremarkable. KIDNEYS AND URETERS: The kidneys are normal in size, lobulated shape, and attenuation. No hydronephrosis, hydroureter, or calculi seen. No perinephric stranding. BLADDER: The bladder is distended. GASTROINTESTINAL TRACT: There is moderate scattered stool seen throughout the colon without any significant distention. The small bowel loops are normal caliber. Appendix is normal caliber. The stomach is distended with recently ingested food ABDOMINAL WALL: No significant hernia is appreciated. LYMPH NODES: Normal. VASCULAR: Unremarkable. PELVIC VISCERA: There is no free air or free fluid. No pelvic mass seen. OSSEOUS STRUCTURES: There are L5-S1 degenerative disc changes and moderate ventral and posterior spondylosis. No lytic or sclerotic process seen. There is bilateral L4-L5 and L5-S1 facet joint arthropathy. CT/CT abdomen pelvis w con IMPRESSION: Moderate constipation. No obstruction. No inflammatory process seen. The gallbladder is out. Appendix is normal caliber.
--- NOTE | ~2020-10-31 | XR_ITS ---
EXAMINATION: XR CHEST CLINICAL INFORMATION: Lightheaded mass COMPARISON: Chest radiographs 09/04/2020, 07/15/2020 TECHNIQUE: Portable upright AP view of the chest was obtained. FINDINGS: The lungs are clear. There is no airspace consolidation or groundglass opacity. No pneumothorax or effusion. The heart is normal in size. The hilar and mediastinal contours and bony structures are unremarkable. XR/XR chest 1V IMPRESSION: Unremarkable examination.
[2020-10-31 12:28] VITALS: BP 130/79; PULSE 99; RESP 14; TEMP 36.8; O2SAT 96; BMI 31.6
--- NOTE | 2020-10-31 12:58 | ECG_ITS ---
Test Reason : WEAKNESS Blood Pressure : / mmHG Vent. Rate : 096 BPM Atrial Rate : 096 BPM P-R Int : 186 ms QRS Dur : 076 ms QT Int : 330 ms P-R-T Axes : 011 002 036 degrees QTc Int : 416 ms Normal sinus rhythm Normal ECG When compared with ECG of 09-OCT-2020 17:30, No significant change was found Referred By: Jeri Cervantes Electronically Signed By:BAILEY BRENNAN MD
--- NOTE | 2020-10-31 13:15 | ED_ITS ---
HPI - Extremity Injury (Lower) General Chief Complaint: Extremity Injury, Lower Stated Complaint: GROIN PAIN Time Seen by Provider: 10/31/20 12:35 Source: patient and EMS Mode of arrival: EMS History of Present Illness HPI Narrative: 60-year-old male with past medical history of HTN, HLD, DM, diabetic foot ulcer, peripheral neuropathy, MGUS, thrombocytopenia, KASSANDRA, MRSA bacteremia, right BKA on 10/15/20, BIBA from Dr. Figueroa's office complaining of nausea, diaphoresis, generalized weakness/fatigue, lightheadedness, RLQ abdominal pain, constipation, and acute on chronic right groin pain. Denies fever, chills, chest pain, shortness of breath, vomiting, diarrhea, dysuria/hematuria, testicular pain/swelling. Admits to passing flatness Related Data Home Medications Medication Instructions Recorded Confirmed Victoza 3-Chet 1.8 mg SUBCUT DAILY 07/17/20 10/09/20 aspirin 81 mg PO DAILY 07/17/20 10/09/20 gabapentin 600 mg PO BEDTIME 07/17/20 10/09/20 lisinopril 5 mg PO DAILY 07/17/20 10/09/20 metformin 1,000 mg PO BID 07/17/20 10/09/20 bisacodyl 5 mg PO BID 09/04/20 10/09/20 cholecalciferol (vitamin D3) 25 mcg PO DAILY 09/04/20 10/09/20 blood sugar diagnostic #10 ea 10/01/20 fluoxetine 20 mg capsule 20 mg PO DAILY 10/01/20 10/09/20 Tresiba FlexTouch U-100 SUBCUT DAILY 10/09/20 atorvastatin 40 mg PO BEDTIME 10/09/20 10/09/20 Previous Rx's Medication Instructions Recorded docusate sodium 100 mg PO BID #60 cap 09/26/20 lactulose 30 ml PO DAILY PRN #480 ml 09/26/20 polyethylene glycol 3350 17 g PO DAILY PRN #30 ea 09/26/20 polyethylene glycol 3350 [Miralax] 17 g PO DAILY PRN #30 ea 10/31/20 Allergies Allergy/AdvReac Type Severity Reaction Status Date / Time vancomycin AdvReac Severe thrombocyto Verified 10/31/20 12:07 penia Review of Systems Review of Systems: Constitutional: No Fever, No Chills, No Night Sweats, + Fatigue, +Malaise Eyes: No Eye Pain, No Vision Changes Cardiovascular: No Chest Pain, No SOB, No Edema Respiratory: No Cough, No Sputum Gastrointestinal: +Nausea, No Vomiting, No Diarrhea, + Constipation, +Abdominal pain Genitourinary: No irregular bleeding, No Dysuria, No Hematuria Musculoskeletal: No joint pain, No Myalgias, No Joint Swelling Skin: No Skin Lesions, No rash Neuro: + Weakness, No Loss of Consciousness, +lightheadedness, No Headache Yes all other systems are reviewed and are negative COUNT INCLUDES THE [facility] Past Medical History Attestation statement: The following information was validated with the patient. Medical History Amputated great toe of right foot Back pain Drug-induced thrombocytopenia Hyperlipidemia Hypertension IDDM (insulin dependent diabetes mellitus) MGUS (monoclonal gammopathy of unknown significance) Neck pain Peripheral neuropathy Psychiatric diagnosis Sleep apnea Surgical History H/O colonoscopy Hx of angioplasty Hx of appendectomy Hx of foot surgery Hx of tonsillectomy Hx of umbilical hernia repair Social History Social History Household Members: None Housing: Apartment Alcohol intake: never Smoking Status: Never smoker Second Hand Smoke Exposure: No Use of substances other than those prescribed or required for medical reasons: No Advance Directives: Yes Advance Directives on File: Yes Advance Directives Date on File: 09/27/20 service: Yes Current occupational status: unemployed Physical Exam Vital Signs: Vital Signs: Last Vital Signs Temp 98.3 F 10/31/20 12:28 Pulse 99 10/31/20 12:28 Resp 16 10/31/20 16:00 BP 130/79 10/31/20 12:28 Pulse Ox 96 10/31/20 12:28 Body Mass Index 31.6 Const: General: cooperative and comfortable Orientation/consciousness: patient oriented x3 Limitations: no limitations HENMT: Head: Yes normal to inspection Ears: hearing grossly normal bilaterally General nose exam: Normal external nose present Face and sinus: Yes normal facial exam Eyes: General: appearance normal, both eyes and all related structures EOM: EOMs intact bilaterally Neck: Neck: Yes normal visual inspection Resp: Effort & Inspection: normal respiratory effort Auscultation: clear to auscultation bilaterally, no rales and no wheezes Cardio: Rate: regular rate Heart sounds: S1 normal heart sound present and S2 normal heart sound present GI: Inspection: Yes normal to inspection Palpation (GI): Soft to palpation, Tenderness to palpation present (GI) in the RLQ, no guarding and not rigid : Other: Right groin/inguinal area with palpable lymphadenopathy and mild te nderness to palpation. No fluctuance/induration. No cellulitis/erythema Testicular exam WNL Skin: Other: Right BKA with sutures and bernie intact. Proper wound healing. No surrounding cellulitis/fluctuance or induration Left foot with chronic ulcer. No surrounding cellulitis Rashes: no rashes Neuro: General: patient oriented x3, tone normal, moves all extremities, no focal motor deficits and CN's II-XI intact bilaterally Motor exam (neuro): 5/5 motor strength present throughout Coordination: [id number] test normal and Romberg test negative Extrem: General: Yes normal to inspection Course Course Course Narrative: Case was discussed with Dr. Figueroa who came to ED and is aware of chronic wounds. -no leukocytosis. H&H at patient's baseline. Magnesium low at 1.3 > will give IV repletion. Troponin negative XR chest 1V IMPRESSION: Unremarkable examination CT abdomen pelvis w con IMPRESSION: Moderate constipation. No obstruction. No inflammatory process seen. The gallbladder is out. Appendix is normal caliber. -1715--UA negative -1836--repeat troponin negative. Results discussed with patient including worrisome signs and symptoms and strict return precautions. Patient will return to his facility instructed to have close follow-up with Dr. Figueroa MDM - Extremity Injury (Lower) MDM Narrative Medical decision making narrative: 60-year-old male with past medical history of HTN, HLD, DM, diabetic foot ulcer, peripheral neuropathy, MGUS, thrombocytopenia, KASSANDRA, MRSA bacteremia, right BKA on 10/15/20, BIBA from Dr. Figueroa's office complaining of nausea, diaphoresis, generalized weakness/fatigue, lightheadedness, RLQ abdominal pain, constipation, and acute on chronic right groin pain. On exam VSS, NAD/nontoxic appearing, physical exam as above. Concern for ACS vs metabolic abnormalities vs constipation/SBO vs appendicitis vs UTI vs acute on chronic groin pain/reactive lymphadenopathy from BKA. Low concern for osteomyelitis Low concern for testicular torsion/orchitis or epididymitis Of note patient had prior arterial and venous duplex of right lower extremity to eval groin pain that were WNL Plan: EKG, labs, UA, CXR, CT AP, reassess Medical Records Attestation: I reviewed the patient's medical records. Lab Data Attestation: I reviewed the patient's lab results. Result diagrams: 10/31/20 13:27 10/31/20 13:27 Labs: Lab Results 10/31/20 10/31/20 10/31/20 Range/Units 13:27 13:27 13:27 WBC 9.6 (4.8-10.8) X10*3/uL RBC 3.40 L D (4.60-5.80) X10*6/uL Hgb 10.7 L D (14.0-18.0) g/dl Hct 32.6 L D (42-52) % MCV 95.9 (80-98) fL MCH 31.5 (27.0-33.0) pg MCHC 32.8 (31.0-36.0) g/dl RDW 14.3 (11.0-16.0) % Plt Count 347 (160-400) X10*3/uL MPV 9.7 (9.4-12.4) fL Immature Gran % (Auto) 0.4 (0.0-0.4) % Neut % (Auto) 66.2 (45-73) % Lymph % (Auto) 23.6 (20-40) % [place] % (Auto) 7.6 (2-11) % Eos % (Auto) 1.6 (0-4) % Baso % (Auto) 0.6 (0-2) % Lymph # (Auto) 2.3 (1.2-4.9) X10*3/uL [place] # (Auto) 0.7 (0.1-1.2) X10*3/uL Eos # (Auto) 0.2 (0.0-0.4) X10*3/uL Baso # (Auto) 0.1 (0.0-0.2) X10*3/uL Abs Immat Gran (auto) 0.04 H (0.00-0.03) X10*3/uL Absolute Neuts (auto) 6.3 (2.0-8.3) X10*3/uL Absolute Nucleated RBC 0.000 (0.0-0.012) X10*3/uL Nucleated RBC % (auto) 0.0 (0.0-0.2) /100WBC PT (10.8-13.0) SEC INR (0.9-1.1) APTT (24.1-38.0) SEC Sodium 139 (135-145) mmol/L Potassium 4.5 (3.3-5.1) mmol/L Chloride 102 (96-108) mmol/L Carbon Dioxide 27 (22-29) mmol/L Anion Gap 15 (12-20) BUN 17 H (9-16) mg/dL Creatinine 0.78 (0.5-1.4) mg/dL Estim Creat Clear Calc 132.1 Estimated GFR > 60 POC Glucose (60-115) mg/dL Random Glucose 82 D (60-115) mg/dL Calcium 8.6 D (8.4-10.2) mg/dL Magnesium 1.3 L* (1.6-2.6) mg/dL Total Bilirubin 0.4 (0.0-1.0) mg/dL Direct Bilirubin 0.2 (0.0-0.5) mg/dL AST 16 D (5-37) U/L ALT 12 (0-40) U/L Alkaline Phosphatase 98 D (39-117) U/L Troponin I High Sens < 3.5 (<3.5-35.0) ng/L B-Natriuretic Peptide (<100) pg/mL Total Protein 6.5 (6.5-8.0) g/dL Albumin 3.5 (3.5-5.0) g/dL Lipase (8-78) U/L Urine Color Urine Appearance Urine pH (5.0-8.0) Ur Specific [place] (1.005-1.025) Urine Protein (NEG-TRACE) MG/DL Urine Glucose (UA) (NEG) MG/DL Urine Ketones (NEG) MG/DL Urine Blood (NEG) Urine Nitrite (NEG) Ur Leukocyte Esterase (NEG) 10/31/20 10/31/20 10/31/20 Range/Units 13:27 13:27 13:27 WBC (4.8-10.8) X10*3/uL RBC (4.60-5.80) X10*6/uL Hgb (14.0-18.0) g/dl Hct (42-52) % MCV (80-98) fL MCH (27.0-33.0) pg MCHC (31.0-36.0) g/dl RDW (11.0-16.0) % Plt Count (160-400) X10*3/uL MPV (9.4-12.4) fL Immature Gran % (Auto) (0.0-0.4) % Neut % (Auto) (45-73) % Lymph % (Auto) (20-40) % [place] % (Auto) (2-11) % Eos % (Auto) (0-4) % Baso % (Auto) (0-2) % Lymph # (Auto) (1.2-4.9) X10*3/uL [place] # (Auto) (0.1-1.2) X10*3/uL Eos # (Auto) (0.0-0.4) X10*3/uL Baso # (Auto) (0.0-0.2) X10*3/uL Abs Immat Gran (auto) (0.00-0.03) X10*3/uL Absolute Neuts (auto) (2.0-8.3) X10*3/uL Absolute Nucleated RBC (0.0-0.012) X10*3/uL Nucleated RBC % (auto) (0.0-0.2) /100WBC PT 12.9 D (10.8-13.0) SEC INR 1.1 (0.9-1.1) APTT 42.1 H D (24.1-38.0) SEC Sodium (135-145) mmol/L Potassium (3.3-5.1) mmol/L Chloride (96-108) mmol/L Carbon Dioxide (22-29) mmol/L Anion Gap (12-20) BUN (9-16) mg/dL Creatinine (0.5-1.4) mg/dL Estim Creat Clear Calc Estimated GFR POC Glucose (60-115) mg/dL Random Glucose (60-115) mg/dL Calcium (8.4-10.2) mg/dL Magnesium (1.6-2.6) mg/dL Total Bilirubin (0.0-1.0) mg/dL Direct Bilirubin (0.0-0.5) mg/dL AST (5-37) U/L ALT (0-40) U/L Alkaline Phosphatase (39-117) U/L Troponin I High Sens (<3.5-35.0) ng/L B-Natriuretic Peptide 18 (<100) pg/mL Total Protein (6.5-8.0) g/dL Albumin (3.5-5.0) g/dL Lipase 16 (8-78) U/L Urine Color Urine Appearance Urine pH (5.0-8.0) Ur Specific [place] (1.005-1.025) Urine Protein (NEG-TRACE) MG/DL Urine Glucose (UA) (NEG) MG/DL Urine Ketones (NEG) MG/DL Urine Blood (NEG) Urine Nitrite (NEG) Ur Leukocyte Esterase (NEG) 10/31/20 10/31/20 10/31/20 Range/Units 13:31 16:36 17:28 WBC (4.8-10.8) X10*3/uL RBC (4.60-5.80) X10*6/uL Hgb (14.0-18.0) g/dl Hct (42-52) % MCV (80-98) fL MCH (27.0-33.0) pg MCHC (31.0-36.0) g/dl RDW (11.0-16.0) % Plt Count (160-400) X10*3/uL MPV (9.4-12.4) fL Immature Gran % (Auto) (0.0-0.4) % Neut % (Auto) (45-73) % Lymph % (Auto) (20-40) % [place] % (Auto) (2-11) % Eos % (Auto) (0-4) % Baso % (Auto) (0-2) % Lymph # (Auto) (1.2-4.9) X10*3/uL [place] # (Auto) (0.1-1.2) X10*3/uL Eos # (Auto) (0.0-0.4) X10*3/uL Baso # (Auto) (0.0-0.2) X10*3/uL Abs Immat Gran (auto) (0.00-0.03) X10*3/uL Absolute Neuts (auto) (2.0-8.3) X10*3/uL Absolute Nucleated RBC (0.0-0.012) X10*3/uL Nucleated RBC % (auto) (0.0-0.2) /100WBC PT (10.8-13.0) SEC INR (0.9-1.1) APTT (24.1-38.0) SEC Sodium (135-145) mmol/L Potassium (3.3-5.1) mmol/L Chloride (96-108) mmol/L Carbon Dioxide (22-29) mmol/L Anion Gap (12-20) BUN (9-16) mg/dL Creatinine (0.5-1.4) mg/dL Estim Creat Clear Calc Estimated GFR POC Glucose 91 (60-115) mg/dL Random Glucose (60-115) mg/dL Calcium (8.4-10.2) mg/dL Magnesium (1.6-2.6) mg/dL Total Bilirubin (0.0-1.0) mg/dL Direct Bilirubin (0.0-0.5) mg/dL AST (5-37) U/L ALT (0-40) U/L Alkaline Phosphatase (39-117) U/L Troponin I High Sens < 3.5 (<3.5-35.0) ng/L B-Natriuretic Peptide (<100) pg/mL Total Protein (6.5-8.0) g/dL Albumin (3.5-5.0) g/dL Lipase (8-78) U/L Urine Color YELLOW Urine Appearance CLEAR Urine pH 6.0 (5.0-8.0) Ur Specific [place] 1.010 (1.005-1.025) Urine Protein NEG (NEG-TRACE) MG/DL Urine Glucose (UA) NEG (NEG) MG/DL Urine Ketones NEG (NEG) MG/DL Urine Blood NEG (NEG) Urine Nitrite NEG (NEG) Ur Leukocyte Esterase NEG (NEG) Discharge Plan Discharge Clinical Impression: Constipation, Hypomagnesemia, Groin pain Patient Disposition: Home, Self-Care Instructions: Constipation (ED), Groin Pain (ED) Additional Instructions: Your blood work showed a slightly low magnesium, consider taking [id number] magnesium oxide pills Your lab work was otherwise reassuring. Your CT scan showed constipation, MiraLax will help move her bowels. If her not having a bowel movement in the next 48 hours return to the ED Make sure following up with her primary care doctor as well as Dr. Figueroa If her symptoms persist or worsen, you have fever, any of her surgical sites begin to look infected, red, or have streaking return to the ED Prescriptions: New polyethylene glycol 3350 [Miralax] 17 gram powder in packet 17 g PO DAILY PRN (Reason: constipation) Qty: 30 RF: 0 No Action atorvastatin 40 mg tablet 40 mg PO BEDTIME RF: 0 Tresiba FlexTouch U-100 100 unit/mL (3 mL) insulin pen subcut DAILY RF: 0 gabapentin 600 mg tablet 600 mg PO BEDTIME RF: 0 aspirin 81 mg tablet,delayed release (DR/EC) 81 mg PO DAILY RF: 0 metformin 1,000 mg tablet 1,000 mg PO BID RF: 0 lisinopril 5 mg tablet 5 mg PO DAILY RF: 0 Victoza 3-Chet 0.6 mg/0.1 mL (18 mg/3 mL) pen injector 1.8 mg subcut DAILY RF: 0 cholecalciferol (vitamin D3) 25 mcg (1,000 unit) tablet 25 mcg PO DAILY RF: 0 bisacodyl 5 mg tablet,delayed release (DR/EC) 5 mg PO BID RF: 0 polyethylene glycol 3350 17 gram Powder In Packet 17 g PO DAILY PRN (Reason: Constipation) Qty: 30 RF: 0 docusate sodium 100 mg Capsule 100 mg PO BID Qty: 60 RF: 0 lactulose 20 gram/30 mL Solution 30 ml PO DAILY PRN (Reason: Constipation) Qty: 480 RF: 0 Referrals: Cameron Figueroa MD [Physician] - 1 week Francisco Grant MD [Primary Care Provider] - 2 days
[2020-10-31 13:34] LABS: MANUAL DIFF FLAG NO
[2020-10-31 13:35] LABS: Basophils Absolute Auto 0.1 X10*3/uL (0.0-0.2); Basophils Percent Auto 0.6 % (0-2); Eosinophils Absolute Auto 0.2 X10*3/uL (0.0-0.4); Eosinophils Percent Auto 1.6 % (0-4); Hematocrit 32.6 % (42-52); Hemoglobin 10.7 g/dl (14.0-18.0); Imm Gran Abs Auto 0.04 X10*3/uL (0.00-0.03); Imm Gran Pct Auto 0.4 % (0.0-0.4); Lymphocytes Absolute Auto 2.3 X10*3/uL (1.2-4.9); Lymphocytes Percent Auto 23.6 % (20-40); Mean Corpuscular HGB Conc 32.8 g/dl (31.0-36.0); Mean Corpuscular Hemoglobin 31.5 pg (27.0-33.0); Mean Corpuscular Volume 95.9 fL (80-98); Mean Platelet Volume 9.7 fL (9.4-12.4); Monocytes Absolute Auto 0.7 X10*3/uL (0.1-1.2); Monocytes Percent Auto 7.6 % (2-11); Neutrophils Absolute Auto 6.3 X10*3/uL (2.0-8.3); Neutrophils Percent Auto 66.2 % (45-73); Platelet Count 347 X10*3/uL (160-400); Red Cell Distribution Width 14.3 % (11.0-16.0); White Blood Count 9.6 X10*3/uL (4.8-10.8)
[2020-10-31 13:36] LABS: Glucose, Whole Blood 91 mg/dL (60-115)
[2020-10-31 13:40] LABS: INTERNATIONAL NORM RATIO 1.1 (0.9-1.1); Prothrombin Time 12.9 SEC (10.8-13.0)
[2020-10-31 13:43] LABS: Partial Thromboplastin Time 42.1 SEC (24.1-38.0)
[2020-10-31 14:00] LABS: Lipase 16 U/L (8-78)
[2020-10-31 14:01] LABS: Alanine Aminotransferase 12 U/L (0-40); Albumin Level 3.5 g/dL (3.5-5.0); Alkaline Phosphatase 98 U/L (39-117); Anion Gap 15 (12-20); Aspartate Amino Transferase 16 U/L (5-37); Bilirubin Direct 0.2 mg/dL (0.0-0.5); Bilirubin Total 0.4 mg/dL (0.0-1.0); Blood Urea Nitrogen 17 mg/dL (9-16); Calcium 8.6 mg/dL (8.4-10.2); Carbon Dioxide 27 mmol/L (22-29); Chloride 102 mmol/L (96-108); Creatinine Clr Calc Pharmacy 132.1; Estimated Glomerular Filt Rate > 60; Glucose Random 82 mg/dL (60-115); Magnesium 1.3 mg/dL (1.6-2.6); Potassium 4.5 mmol/L (3.3-5.1); Sodium 139 mmol/L (135-145); Total Protein 6.5 g/dL (6.5-8.0)
[2020-10-31 14:05] LABS: B Type Natriuretic Peptide 18 pg/mL (<100); Troponin-I High Sensitivity < 3.5 ng/L (<3.5-35.0)
[2020-10-31 14:47] VITALS: RESP 18
[2020-10-31] MEDS: Morphine Sulfate 2 MG/ML CARTRIDGE IVPUSH (14:47)
[2020-10-31] MEDS: Magnesium Sulfate/H2O 2 GM/50 ML PIGGYBACK IV (14:48)
[2020-10-31] MEDS: iohexoL 350 MG/ML 100 ML INFUS..BTL IV (15:28)
[2020-10-31 16:00] VITALS: RESP 16
[2020-10-31 16:48] LABS: Glucose Urine UA NEG (NEG); Leukocyte Esterase Urine NEG (NEG); Nitrite Urine NEG (NEG); Urine Blood NEG (NEG); Urine Ketones NEG (NEG); Urine Protein NEG (NEG-TRACE)
--- NOTE | 2020-10-31 16:54 | PC.NURSE ---
plan for dc back to str
[2020-10-31 17:03] LABS: Appearance Urine CLEAR; Color Urine YELLOW
[2020-10-31 18:23] LABS: Troponin-I High Sensitivity < 3.5 ng/L (<3.5-35.0)
--- NOTE | 2020-10-31 18:35 | PC.NURSE ---
plan for dc back to str
--- NOTE | 2020-10-31 18:36 | PC.NURSE ---
bka wound site dressed per pt request
[2020-10-31 18:47] VITALS: BP 117/62; PULSE 101; RESP 19; TEMP 36.6; O2SAT 97
== END 2020-10-31 20:30 | disposition home or self-care (01) ==
PROVIDERS: Physician Assistant; Emergency Provider Emergency Medicine; PCP Internal Medicine
DX: K59.00 Constipation, unspecified (principal); E83.42 Hypomagnesemia; R10.30 Lower abdominal pain, unspecified; I10 Essential (primary) hypertension; E11.9 Type 2 diabetes mellitus without complications; R10.31 Right lower quadrant pain; Z79.82 Long term (current) use of aspirin; Z79.899 Other long term (current) drug therapy; Z79.4 Long term (current) use of insulin
CPT/HCPCS: 36415; 71045; 74177; 80048; 80076; 81003; 82947; 83690; 83735; 83880; 84484; 85025; 85610; 85730; 93005; 96361; 96365; 96375; 99284; J2270; J2405; J3475; Q9967

== ENCOUNTER 2020-11-05 14:30 | Emergency (ER) | payer OTHER, SELFPAY ==
[2020-11-05 14:57] VITALS: BP 120/80; BP 125/68; PULSE 94; RESP 18; TEMP 37.1; O2SAT 98; BMI 31.6
--- NOTE | 2020-11-05 15:00 | ED_ITS ---
HPI - Abdominal Pain General Chief Complaint: Abdominal Pain Stated Complaint: ABD PAIN Time Seen by Provider: 11/05/20 14:59 Source: patient Mode of arrival: EMS Limitations: no limitations History of Present Illness HPI narrative: patient at shelter for leg amputation, now with urinary retention. Patient states decreased output over the past 2 days, now he cant pee Onset (ago): hour(s) Pain Consistency: constant Location: suprapubic Severity: moderate Quality: fullness Radiation: suprapubic Related Data Home Medications Medication Instructions Recorded Confirmed Victoza 3-Chet 1.8 mg SUBCUT DAILY 07/17/20 10/09/20 aspirin 81 mg PO DAILY 07/17/20 10/09/20 gabapentin 600 mg PO BEDTIME 07/17/20 10/09/20 lisinopril 5 mg PO DAILY 07/17/20 10/09/20 metformin 1,000 mg PO BID 07/17/20 10/09/20 bisacodyl 5 mg PO BID 09/04/20 10/09/20 cholecalciferol (vitamin D3) 25 mcg PO DAILY 09/04/20 10/09/20 blood sugar diagnostic #10 ea 10/01/20 fluoxetine 20 mg capsule 20 mg PO DAILY 10/01/20 10/09/20 Tresiba FlexTouch U-100 SUBCUT DAILY 10/09/20 atorvastatin 40 mg PO BEDTIME 10/09/20 10/09/20 Previous Rx's Medication Instructions Recorded docusate sodium 100 mg PO BID #60 cap 09/26/20 lactulose 30 ml PO DAILY PRN #480 ml 09/26/20 polyethylene glycol 3350 17 g PO DAILY PRN #30 ea 09/26/20 polyethylene glycol 3350 [Miralax] 17 g PO DAILY PRN #30 ea 10/31/20 cephalexin 500 mg PO QID #28 cap 11/05/20 Allergies Allergy/AdvReac Type Severity Reaction Status Date / Time vancomycin AdvReac Severe thrombocyto Verified 10/31/20 12:07 penia Review of Systems Constitutional: Reports no additional constitutional complaints Eyes: Reports no additional eye complaints Denies dizziness Cardiovascular: Reports no additional cardiovascular complaints Respiratory: Reports as per HPI Gastrointestinal: Reports no additional gastrointestinal complaints Musculoskeletal: Reports no additional musculoskeletal complaints Skin/Breast: Denies rash Reports system reviewed and no additional complaints, except as documented, Denies dizziness and Denies Sensory deficit (Neuro) Psychiatric: Denies anxiety Physical Exam Vital Signs: Vital Signs: Last Vital Signs Temp 98.0 F 11/05/20 16:01 Pulse 95 11/05/20 16:33 Resp 16 11/05/20 16:33 BP 107/58 L 11/05/20 16:33 Pulse Ox 98 11/05/20 16:33 Body Mass Index 31.6 Const: Nutritional Appearance: obese Orientation/consciousness: oriented to person and patient oriented x3 Limitations: no limitations HENMT: Head: Yes normal to inspection Ears: external ears normal General nose exam: Normal external nose present Mouth: Normal oral and palatal mucosa present and oropharynx normal Throat: Yes posterior oropharynx normal Eyes: General: appearance normal, both eyes and all related structures Neck: Other: supple Neck: Yes normal visual inspection Chest: Chest palpation & inspection: normal inspection of the chest Resp: Auscultation: clear to auscultation bilaterally Cardio: Jugular venous distension: no JVD Rate: regular rate Rhythm: regular rhythm Heart sounds: S1 normal heart sound present and S2 normal heart sound present GI: Inspection: Yes normal to inspection Palpation (GI): Soft to palpation, nontender and No hepatosplenomegaly present Auscultation: normal bowel sounds : General: Yes no CVA tenderness Back/Spine/Pelvis: Back: no CVA tenderness Skin: General skin exam: no rashes or lesions noted Neuro: General: oriented to person and patient oriented x3 Cranial nerves: Yes CN's II-XII intact bilaterally Motor exam (neuro): 5/5 motor strength present throughout Sensory Exam: No Sensory deficit (Neuro) Extrem: Other: right leg amputation Psych: Appearance: grossly normal Course Course Course Narrative: bedside ultasound reveals distended bladder Reevaluation(s) Reevaluation #1: patient put out 600cc of urine Time: 16:11 Reevaluation #2: patient to be treated for UTI. Will discuss with Dr. Figueroa of vascular as patient was to have sutures removed Time: 16:26 MDM - Abdominal Pain MDM Narrative Medical decision making narrative: urinary retention and Uti. Will leave in hdez and start keflex Differential Diagnosis Differential diagnosis: Likely abdominal pain Medical Records Attestation: I reviewed the patient's medical records. Lab Data Labs: Lab Results 11/05/20 Range/Units 15:19 Urine Color YELLOW Urine Appearance HAZY Urine pH 5.5 (5.0-8.0) Ur Specific [place] 1.020 (1.005-1.025) Urine Protein NEG (NEG-TRACE) MG/DL Urine Glucose (UA) NEG (NEG) MG/DL Urine Ketones NEG (NEG) MG/DL Urine Blood 2+ H (NEG) Urine Nitrite POS H (NEG) Ur Leukocyte Esterase 1+ H (NEG) Urine RBC 1-4 (0) /HPF Urine WBC 15-29 H (0-4) /HPF Ur Squamous Epith Cells TRACE /LPF Urine Bacteria 3+ /LPF Discharge Plan Discharge Clinical Impression: Acute urinary retention Urinary tract infection Qualifiers: Urinary tract infection type: acute cystitis Hematuria presence: without hematuria Qualified Code(s): N30.00 - Acute cystitis without hematuria Patient Disposition: Home, Self-Care Instructions: Urinary Retention in Men (ED), Urinary Tract Infection in Men (ED) Prescriptions: New cephalexin 500 mg capsule 500 mg PO QID Qty: 28 RF: 0 No Action atorvastatin 40 mg tablet 40 mg PO BEDTIME RF: 0 Tresiba FlexTouch U-100 100 unit/mL (3 mL) insulin pen subcut DAILY RF: 0 polyethylene glycol 3350 [Miralax] 17 gram powder in packet 17 g PO DAILY PRN (Reason: constipation) Qty: 30 RF: 0 gabapentin 600 mg tablet 600 mg PO BEDTIME RF: 0 aspirin 81 mg tablet,delayed release (DR/EC) 81 mg PO DAILY RF: 0 metformin 1,000 mg tablet 1,000 mg PO BID RF: 0 lisinopril 5 mg tablet 5 mg PO DAILY RF: 0 Victoza 3-Chet 0.6 mg/0.1 mL (18 mg/3 mL) pen injector 1.8 mg subcut DAILY RF: 0 cholecalciferol (vitamin D3) 25 mcg (1,000 unit) tablet 25 mcg PO DAILY RF: 0 bisacodyl 5 mg tablet,delayed release (DR/EC) 5 mg PO BID RF: 0 polyethylene glycol 3350 17 gram Powder In Packet 17 g PO DAILY PRN (Reason: Constipation) Qty: 30 RF: 0 docusate sodium 100 mg Capsule 100 mg PO BID Qty: 60 RF: 0 lactulose 20 gram/30 mL Solution 30 ml PO DAILY PRN (Reason: Constipation) Qty: 480 RF: 0 Referrals: Carolina,Cameron T, MD [Physician] - 1 week [facility] Past Medical History Medical History Amputated great toe of right foot Back pain Drug-induced thrombocytopenia Hyperlipidemia Hypertension IDDM (insulin dependent diabetes mellitus) MGUS (monoclonal gammopathy of unknown significance) Neck pain Peripheral neuropathy Psychiatric diagnosis Sleep apnea Surgical History H/O colonoscopy Hx of angioplasty Hx of appendectomy Hx of foot surgery Hx of tonsillectomy Hx of umbilical hernia repair Social History Social History Household Members: None Housing: Apartment Alcohol intake: never Smoking Status: Never smoker Second Hand Smoke Exposure: No Advance Directives: No Advance Directives Information Provided: No Advance Directives Date on File: 09/27/20 service: Yes Current occupational status: unemployed
--- NOTE | 2020-11-05 15:21 | PC.NURSE ---
Pt awake and alert, speech clear. Breathing equal and unlabored. F/C placed by dictaphone technician, patient resting comfortably following procedure states mild relief of abd pain at this time. Urinary drainage bag with clear, yellow urine noted to be draining. No acute distress, will continue to monitor. Call maki within reach, lights dimmed for comfort.
[2020-11-05 15:27] LABS: Glucose Urine UA NEG (NEG); Leukocyte Esterase Urine 1+ (NEG); Nitrite Urine POS (NEG); PH 5.5 (5.0-8.0); UACC Culture Trigger YES; Urine Blood 2+ (NEG); Urine Ketones NEG (NEG); Urine Protein NEG (NEG-TRACE)
[2020-11-05 15:34] LABS: Appearance Urine HAZY; Color Urine YELLOW
[2020-11-05 15:51] VITALS: BP 90/45; PULSE 93; RESP 18; TEMP 36.7; O2SAT 98
[2020-11-05 15:59] LABS: Bacteria Urine 3+ /LPF; Squamous Epithelial Cell Urine TRACE /LPF
[2020-11-05 16:01] VITALS: BP 90/45; PULSE 93; RESP 18; TEMP 36.7; O2SAT 98
[2020-11-05 16:33] VITALS: BP 107/58; PULSE 95; RESP 16; O2SAT 98
[2020-11-05] MEDS: cephALEXin 500 MG CAPSULE PO (16:33)
--- NOTE | 2020-11-05 17:32 | PC.NURSE ---
Nurse to nurse given to Kristen at [facility]. Plan for transport back to facility with FC in place and follow up with Surgery next week for follow up regarding sutures.
== END 2020-11-05 17:52 | disposition home or self-care (01) ==
PROVIDERS: Emergency Provider Emergency Medicine
DX: R33.9 Retention of urine, unspecified (principal); N30.00 Acute cystitis without hematuria; Z89.411 Acquired absence of right great toe; E78.5 Hyperlipidemia, unspecified; I10 Essential (primary) hypertension; E11.9 Type 2 diabetes mellitus without complications; Z79.4 Long term (current) use of insulin
CPT/HCPCS: 51702; 51798; 81001; 81003; 87086; 87088; 87186; 99283; 99284

== ENCOUNTER → 2020-11-14 12:44 | Outpatient (BNVA) | payer OTHER, SELFPAY | PROVIDERS: Visit Provider Surgery Vascular Surgery | DX: Z47.81 Encounter for orthopedic aftercare following surgical amputation (principal); I73.9 Peripheral vascular disease, unspecified | CPT/HCPCS: 99212 ==

== ENCOUNTER → 2020-12-17 10:55 | Outpatient (BNVA) | payer OTHER, SELFPAY | PROVIDERS: PCP Internal Medicine; Visit Provider Surgery Vascular Surgery | DX: I73.9 Peripheral vascular disease, unspecified (principal) | CPT/HCPCS: 99212 ==

== ENCOUNTER 2020-12-23 06:06 | Inpatient (IN) | payer OTHER, SELFPAY ==
--- NOTE | 2020-12-20 08:37 | HO.ANESPROP2 ---
Documented by User: Alize Tayler 12/20/20 08:42 HPI - Anesthesia Eval Consult details Narrative: 60yo M for Left Toe Amputation,great s/p R BKA with GA-LMA 5 09/2020 Pending: Labs DOS ordered by surgeon [facility] Active Problems Active Problems: All Active Problems (Updated 11/14/20 @ 13:37 by Cameron Figueroa MD) PVD (peripheral vascular disease) (Acute) Generalized weakness (Acute) Status post below-knee amputation (Acute) MGUS (monoclonal gammopathy of unknown significance) (Acute) Drug-induced thrombocytopenia (Acute) Hyperlipidemia (Acute) Hypertension (Acute) Past Medical History Medical History Amputated great toe of right foot Back pain Drug-induced thrombocytopenia Hyperlipidemia Hypertension IDDM (insulin dependent diabetes mellitus) MGUS (monoclonal gammopathy of unknown significance) Neck pain Peripheral neuropathy Psychiatric diagnosis Sleep apnea Surgical History Surgical History H/O colonoscopy Hx of angioplasty Hx of appendectomy Hx of foot surgery Hx of tonsillectomy Hx of umbilical hernia repair Social History Social History Household Members: None Housing: Apartment Alcohol intake: never Smoking Status: Former smoker Second Hand Smoke Exposure: No Use of substances other than those prescribed or required for medical reasons: No Have you been hit, kicked, punched, or otherwise hurt by someone within the past year? If so, by whom?: No Are you DNR?: No Advance Directives: Yes Advance Directives Information Provided: Yes Advance Directives on File: Yes Advance Directives Date on File: 09/27/20 service: Yes Current occupational status: unemployed Meds Allergies Allergy/AdvReac Type Severity Reaction Status Date / Time vancomycin AdvReac Severe thrombocyto Verified 12/17/20 11:00 penia Home Medications Medication Instructions Recorded Confirmed Last Taken Type Victoza 3-Chet 1.8 mg SUBCUT DAILY 07/17/20 10/09/20 Unknown History aspirin 81 mg PO DAILY 07/17/20 10/09/20 Unknown History gabapentin 600 mg PO BEDTIME 07/17/20 10/09/20 Unknown History lisinopril 5 mg PO DAILY 07/17/20 10/09/20 Unknown History metformin 1,000 mg PO BID 07/17/20 10/09/20 Unknown History bisacodyl 5 mg PO BID 09/04/20 10/09/20 Unknown History cholecalciferol (vitamin D3) 25 mcg PO DAILY 09/04/20 10/09/20 Unknown History fluoxetine 20 mg capsule 20 mg PO DAILY 10/01/20 10/09/20 Unknown History Tresiba FlexTouch U-100 SUBCUT DAILY 10/09/20 Unknown History atorvastatin 40 mg PO BEDTIME 10/09/20 10/09/20 Unknown History albuterol sulfate 90 mcg/actuation 2 puff INHALATION Q4-6H PRN 12/17/20 Unknown History aerosol inhaler Exam Exam Date and Time: December 20, 2020 0837 Narrative Narrative: EKG 10/2020 Vent. Rate : 096 BPM Atrial Rate : 096 BPM P-R Int : 186 ms QRS Dur : 076 ms QT Int : 330 ms P-R-T Axes : 011 002 036 degrees QTc Int : 416 ms Normal sinus rhythm Normal ECG When compared with ECG of 09-OCT-2020 17:30, No significant change was found ECHO 08/2020 Conclusions: - The left ventricular systolic function is hyperdynamic. The visually estimated ejection fraction is >70%. - Normal right ventricular cavity size and systolic function. - Inadequate assessment of aortic and pulmonic valves. No obvious vegetation noticed on visualized valves. - Consider a CALI if clinically appropriate. Assessment and Plan Assessment Anesthesia Assessment: Chart Reviewed Documented by User: Jonh Wilson 12/23/20 09:17 [facility] Past Medical History Medical History Amputated great toe of right foot Back pain Drug-induced thrombocytopenia Hyperlipidemia Hypertension IDDM (insulin dependent diabetes mellitus) MGUS (monoclonal gammopathy of unknown significance) Neck pain Peripheral neuropathy Psychiatric diagnosis Sleep apnea Surgical History Surgical History H/O colonoscopy Hx of angioplasty Hx of appendectomy Hx of foot surgery Hx of tonsillectomy Hx of umbilical hernia repair Social History Social History Household Members: None Housing: Apartment Alcohol intake: never Smoking Status: Former smoker Second Hand Smoke Exposure: No Use of substances other than those prescribed or required for medical reasons: No Have you been hit, kicked, punched, or otherwise hurt by someone within the past year? If so, by whom?: No Are you DNR?: No Advance Directives: Yes Advance Directives Information Provided: Yes Advance Directives on File: Yes Advance Directives Date on File: 09/27/20 service: Yes Current occupational status: unemployed Meds Allergies Allergy/AdvReac Type Severity Reaction Status Date / Time vancomycin AdvReac Severe thrombocyto Verified 12/17/20 11:00 penme Home Medications Medication Instructions Recorded Confirmed Last Taken Type Victoza 3-Chet 1.8 mg SUBCUT DAILY 07/17/20 10/09/20 Unknown History aspirin 81 mg PO DAILY 07/17/20 10/09/20 Unknown History gabapentin 600 mg PO BEDTIME 07/17/20 10/09/20 Unknown History lisinopril 5 mg PO DAILY 07/17/20 10/09/20 Unknown History metformin 1,000 mg PO BID 07/17/20 10/09/20 Unknown History bisacodyl 5 mg PO BID 09/04/20 10/09/20 Unknown History cholecalciferol (vitamin D3) 25 mcg PO DAILY 09/04/20 10/09/20 Unknown History fluoxetine 20 mg capsule 20 mg PO DAILY 10/01/20 10/09/20 Unknown History Tresiba FlexTouch U-100 SUBCUT DAILY 10/09/20 Unknown History atorvastatin 40 mg PO BEDTIME 10/09/20 10/09/20 Unknown History albuterol sulfate 90 mcg/actuation 2 puff INHALATION Q4-6H PRN 12/17/20 Unknown History aerosol inhaler Exam Airway Mallampati Class: III TM Dist: >3cm Neck ROM: Full Loose/Missing/Broken Teeth: Yes Heart: [id number] Lungs: cta b/l Assessment and Plan Assessment Anesthesia Assessment: Anesthesia Plan Discussed, PAT Visit and Chart Reviewed Final Anesthetic Review NPO: Yes ASA Class: IV Final Preanesthetic Review: No Changes in Pt Med Stat, Meds/Allgs Chart Reviewed, Consent Obtained/Reviewed and Anes Risks/Benef Reviewed Patient Risk: High Procedure Risk: Low Assessment/Block/Sedation in SS: Assess/Block/Sedation-SS Anesthetic Plan Anesthetic Plan: MAC: and Agree w/ Assess. and Plan Disposition: Standard PACU
[2020-12-23] VITALS (16 sets, daily range): BP systolic 97–161; BP diastolic 53–95; PULSE 76–98; RESP 14–20; TEMP 36–37.2; O2SAT 94–98
[2020-12-23 08:00] LABS: Glucose, Whole Blood 135 mg/dL (60-115)
[2020-12-23 08:17] LABS: COVID-19 Test Negative (Negative)
[2020-12-23] MEDS: Lactated Ringers 1,000 ML 100 ML IVCONT (08:19)
[2020-12-23 08:26] LABS: Hematocrit 37.5 % (42-52); Hemoglobin 12.4 g/dl (14.0-18.0); Mean Corpuscular HGB Conc 33.1 g/dl (31.0-36.0); Mean Corpuscular Hemoglobin 30.3 pg (27.0-33.0); Mean Corpuscular Volume 91.7 fL (80-98); Mean Platelet Volume 9.9 fL (9.4-12.4); Platelet Count 398 X10*3/uL (160-400); Red Blood Count 4.09 X10*6/uL (4.60-5.80); Red Cell Distribution Width 12.2 % (11.0-16.0); White Blood Count 11.4 X10*3/uL (4.8-10.8)
[2020-12-23 08:33] LABS: INTERNATIONAL NORM RATIO 1.2 (0.9-1.1)
[2020-12-23 08:38] LABS: Partial Thromboplastin Time 38.8 SEC (24.1-38.0)
[2020-12-23 08:42] LABS: Anion Gap 13 (12-20); Blood Urea Nitrogen 18 mg/dL (9-16); Calcium 9.6 mg/dL (8.4-10.2); Carbon Dioxide 28 mmol/L (22-29); Chloride 100 mmol/L (96-108); Estimated Glomerular Filt Rate > 60; Glucose Random 134 mg/dL (60-115); Potassium 4.6 mmol/L (3.3-5.1); Sodium 136 mmol/L (135-145)
--- NOTE | 2020-12-23 09:32 | MHC.SHP ---
Pre-Procedural Eval Section B Chief Complaint: PAD Allergies: Allergies Allergy/AdvReac Type Severity Reaction Status Date / Time vancomycin AdvReac Severe thrombocyto Verified 12/17/20 11:00 betty Plan I have reviewed the history and physical and performed a pertinent physical examination on my patient. No changes have occurred unless specified.
--- NOTE | 2020-12-23 11:16 | P.OP_ITS ---
Operative Note Operative Note Date of Service: 12/23/20 Narrative: Operative note by [facility] Preoperative diagnosis: Left great toe gangrene Postoperative diagnosis: Same Procedure: Left great toe ray amputation Surgeon:Cameron Figueroa M.D. [employer] Clerk: Marjan Anesthesia: Local with sedation Specimens: 1 Drains: New none Estimated blood loss: Minimal Indications: Complex 60-year-old gentleman with uncontrolled diabetes who has had a prior right BKA developed a nonhealing ulcer of the left great toe. It has progressed on to gangrene. He now presents for left great toe amputation. The patient has signed the informed consent after reviewing risks, complications, benefits, and alternatives previously discussed with the patient in my office. The patient was given the opportunity to ask any additional questions or voice any concerns. All questions were answered to the patient's satisfaction. Procedure in detail: Patient was brought to the operating room prior to which a time-out was called for patient identification and site verification left foot was prepped and draped in standard surgical fashion. [place] incision was carried out over the great toe. Please do took down skin and soft tissue beyond the metatarsal head. Using a power saw we transected across the metatarsal. We dissected around the soft tissue. We removed the gangrenous toe. Once this was done and we resected back to healthy soft tissue, hemostasis was obtained with electrocautery. The wound was irrigated out. Bone edge was filed down with a rasp. Deep layer was reapproximated using 2 all poly sore. Superficial layer with 3-0 Polysorb. Finally skin with mattress 2 0 nylon in an interrupted manner. Finally skin clips. At the end the case been she knows me counts were correct. Patient tolerated the procedure well. Returned to recovery with stable vitals. This note is constructed using voice recognition software. While every effort has been made to ensure accuracy, radiochemical technician errors may have been included. Thank you for allowing me to participate in the care of your patient. Yours sincerely, Cameron Figueroa MD, FACS, R.P.V.I.
--- NOTE | 2020-12-23 11:22 | PM.EVENT ---
Event Note Date of Service: 12/23/20 Event Note: Patient was started on cephazolin IV due to surrounding soft tissue infection, and cellulitis. The patient will be admitted.
--- NOTE | 2020-12-23 14:18 | P.CONIM_ITS ---
History of Present Illness Data of Consult Service Date: 12/23/20 Requesting physician: Cameron Figueroa Primary Care Provider: Unknown Physician HPI Reason for consult: Medical management 60-year-old man With history of diabetes, peripheral vascular disease, hypertension admitted by vascular surgery and is status post left great toe amputation. Patient has a history of uncontrolled diabetes. 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 At this point vital signs are stable, he has no nausea or vomiting. He has very minimal amount of pain at this time. He will be followed by the medical team Review of Systems Review of Systems: Denies any recent fever chills or decrease in appetite respiratory denies any shortness of breath coverage production cardiovascular denies chest pain gastrointestinal denies any dysphagia abdominal pain nausea vomiting or diarrhea genitourinary denies any dysuria frequency or hematuria musculoskeletal minimal pain neuropsych denies any weakness or seizures all other systems reviewed are negative [facility] Medical History Amputated great toe of right foot Back pain Drug-induced thrombocytopenia Hyperlipidemia Hypertension IDDM (insulin dependent diabetes mellitus) MGUS (monoclonal gammopathy of unknown significance) Neck pain Peripheral neuropathy Psychiatric diagnosis Sleep apnea Surgical History H/O colonoscopy Hx of angioplasty Hx of appendectomy Hx of foot surgery Hx of tonsillectomy Hx of umbilical hernia repair Social History Household Members: None Housing: Apartment Alcohol intake: never Smoking Status: Former smoker Second Hand Smoke Exposure: No Use of substances other than those prescribed or required for medical reasons: No Have you been hit, kicked, punched, or otherwise hurt by someone within the past year? If so, by whom?: No Are you DNR?: No Advance Directives: Yes Advance Directives Information Provided: Yes Advance Directives on File: Yes Advance Directives Date on File: 09/27/20 service: Yes Current occupational status: unemployed Meds Allergies Allergy/AdvReac Type Severity Reaction Status Date / Time vancomycin AdvReac Severe thrombocyto Verified 12/17/20 11:00 penia Active Medications: Current Medications Generic Name Dose Route Start Last Admin Trade Name Freq PRN Reason Stop Dose Admin Acetaminophen 650 mg 12/23/20 09:17 Acetaminophen 325 Mg Tablet PO ONCE PRN Pain, Mild (Pain Scale 1-3) Acetaminophen 650 mg 12/23/20 11:10 Acetaminophen 325 Mg Tablet PO Q6H PRN Pain, Mild (Pain Scale 1-3) Fentanyl 50 mcg 12/23/20 09:17 Fentanyl Citrate/Pf 100 Mcg/2 Ml Vial IVPUSH Q5M PRN Pain, Severe (Pain Scale 7-10) Heparin Sodium (Porcine) 5,000 unit 12/23/20 12:00 Heparin Sodium,Porcine 5,000 Unit/Ml Vial SUBCUT Q8H [facility] Lactated Ringer's 1,000 mls @ 100 mls/hr 12/23/20 06:15 12/23/20 08:19 Lr IVCONT 100 mls/hr .Q10H TJ Administration Sodium Chloride 1,000 mls @ 80 mls/hr 12/23/20 11:15 Ns IVCONT .[id number] TJ Cefazolin Sodium 1 gm/ Sodium 50 mls @ 100 mls/hr 12/23/20 18:00 Chloride IV Q8H TJ Morphine Sulfate 2 mg 12/23/20 11:10 Morphine Sulfate 2 Mg/Ml Cartridge IVPUSH Q4H PRN Pain, Severe (Pain Scale 7-10) Ondansetron HCl 4 mg 12/23/20 09:17 Ondansetron Hcl 4 Mg/2 Ml Vial IVPUSH ONCE PRN Nausea and Vomiting Oxycodone HCl 10 mg 12/23/20 09:17 Oxycodone Hcl Immed Release 5 Mg Tablet PO ONCE PRN Pain, Mild (Pain Scale 1-3) Oxycodone HCl 5 mg 12/23/20 11:10 Oxycodone Hcl Immed Release 5 Mg Tablet PO Q4H PRN Pain, Moderate (Pain Scale 4-6 Pharmacy Consult 1 each 12/23/20 13:54 Consult Rx Perform Med Rec MISCELLANE ONCE PRN Consult order Sodium Chloride 3 ml 12/23/20 16:00 0.9 % Sodium Chloride Flush 3 [facility] Medications Medication Instructions Recorded Confirmed Last Taken Type Victoza 3-Chet 1.8 mg SUBCUT DAILY 07/17/20 10/09/20 Unknown History aspirin 81 mg PO DAILY 07/17/20 10/09/20 Unknown History gabapentin 600 mg PO BEDTIME 07/17/20 10/09/20 Unknown History lisinopril 5 mg PO DAILY 07/17/20 10/09/20 Unknown History metformin 1,000 mg PO BID 07/17/20 10/09/20 Unknown History bisacodyl 5 mg PO BID 09/04/20 10/09/20 Unknown History cholecalciferol (vitamin D3) 25 mcg PO DAILY 09/04/20 10/09/20 Unknown History fluoxetine 20 mg capsule 20 mg PO DAILY 10/01/20 10/09/20 Unknown History Tresiba FlexTouch U-100 SUBCUT DAILY 10/09/20 Unknown History atorvastatin 40 mg PO BEDTIME 10/09/20 10/09/20 Unknown History albuterol sulfate 90 mcg/actuation 2 puff INHALATION Q4-6H PRN 12/17/20 Unknown History aerosol inhaler Physical Exam Vital Signs and Narrative: Vital Signs: Last Vital Signs Temp 96.8 F 12/23/20 11:05 Pulse 80 12/23/20 13:05 Resp 18 12/23/20 13:05 BP 135/76 12/23/20 13:05 Pulse Ox 95 12/23/20 13:05 Denies any recent fever chills or decrease in appetite respiratory denies any shortness of breath coverage production cardiovascular is adjustment of any PND or edema gastrointestinal denies any dysphagia abdominal pain nausea vomiting or diarrhea genitourinary denies any dysuria frequency or hematuria musculoskeletal surgical dressing to left foot, unable visualize wound neuropsych denies any weakness or seizures all other systems reviewed are negative Results Labs CBC and Chem 7: 12/23/20 08:05 12/23/20 08:05 Labs: Laboratory Results - last 24 hr 12/23/20 12/23/20 12/23/20 07:48 07:55 08:05 MCV 91.7 MCH 30.3 MCHC 33.1 RDW 12.2 Plt Count 398 MPV 9.9 Absolute Nucleated RBC 0.000 Nucleated RBC % (auto) 0.0 PT INR APTT Anion Gap Estim Creat Clear Calc Estimated GFR POC Glucose 135 H Random Glucose Calcium COVID-19 (JOSE) Negative COVID-19 Clin Com See Note 12/23/20 12/23/20 08:05 08:05 MCV MCH MCHC RDW Plt Count MPV Absolute Nucleated RBC Nucleated RBC % (auto) PT 14.0 H INR 1.2 H APTT 38.8 H Anion Gap 13 Estim Creat Clear Calc TNP Estimated GFR > 60 POC Glucose Random Glucose 134 H D Calcium 9.6 D COVID-19 (JOSE) COVID-19 Clin Com Assessment and Plan (1) PVD (peripheral vascular disease): Status: Acute 60-year-old man status post left great toe amputation, history of peripheral vascular disease with right BKA in September of 2020. Left great toe amputation. -pain management -wound care as per vascular surgery provider Leukocytosis. Mild. Postoperative. -trend CBC Normocytic anemia. -trend CBC Diabetes. -Sliding scale -ADA diet Neuropathy -gabapentin HTN. On the softer side. -Hold antihypertensives for now DVT prophylaxis with heparin Attending: Dr. Terrazas
[2020-12-23] MEDS: 0.9 % Sodium Chloride Flush 3 ML SYRINGE IVFLUSH (16:20)
[2020-12-23] MEDS: 0.9 % Sodium Chloride 1,000 ML 80 ML IVCONT (16:20)
[2020-12-23 16:34] LABS: Glucose, Whole Blood 144 mg/dL (60-115)
[2020-12-23] MEDS: Heparin Sodium,Porcine 5,000 UNIT/ML VIAL 5000 UNIT SUBCUT (19:48)
[2020-12-23 20:30] LABS: Glucose, Whole Blood 132 mg/dL (60-115)
[2020-12-23] MEDS: Insulin Glargine,Hum.rec.anlog 100 UNIT/ML 10 ML VIAL 35 UNIT SUBCUT (20:40)
[2020-12-23] MEDS: lisinopriL 5 MG TABLET PO (20:41)
[2020-12-24 03:00] VITALS: BP 121/74; PULSE 91; RESP 20; TEMP 36.4; O2SAT 96
[2020-12-24] MEDS: 0.9 % Sodium Chloride 1,000 ML 80 ML IVCONT (03:41)
[2020-12-24] MEDS: Heparin Sodium,Porcine 5,000 UNIT/ML VIAL 5000 UNIT SUBCUT ×3 (03:42→21:03)
[2020-12-24 07:00] VITALS: BP 130/70; PULSE 78; RESP 20; TEMP 36.5; O2SAT 97
[2020-12-24 07:41] LABS: Glucose, Whole Blood 143 mg/dL (60-115)
[2020-12-24 08:21] LABS: MANUAL DIFF FLAG NO
--- NOTE | 2020-12-24 08:25 | HO.VASCPN ---
Subjective Subjective Date of Service: 12/24/20 Patient reports: no new complaints and feels better Interval history: Patient is postop day 1 status post left great toe amputation. He was admitted for surrounding cellulitis. Of note he was prescribed outpatient p.o. antibiotics which he never picked up. Cellulitis remained and he was subsequently admitted for IV antibiotic therapy. He appears to be doing relatively well. Pain is reasonably controlled. Physical Exam Vital Signs: Vital Signs: Last Vital Signs Temp 97.7 F 12/24/20 07:00 Pulse 78 12/24/20 07:00 Resp 20 12/24/20 07:00 BP 130/70 12/24/20 07:00 Pulse Ox 97 12/24/20 07:00 Oxygen Flow Rate 1 12/23/20 09:17 Const: General: cooperative, healthy appearing and no acute distress Orientation/consciousness: oriented to person, oriented to place and oriented to time HENMT: Head: Yes normal to inspection Neck: Carotids: no bruits Chest: Chest palpation & inspection: normal inspection of the chest Resp: Effort & Inspection: normal respiratory effort and able to speak in complete sentences Auscultation: clear to auscultation bilaterally Cardio: Rate: regular rate Heart sounds: S1 normal heart sound present and S2 normal heart sound present GI: Inspection: Yes normal to inspection Skin: General skin exam: no rashes or lesions noted Wounds: amputation site (Dressing clean dry intact, right BKA stump well healed) Neuro: General: oriented to person, oriented to place, oriented to time and CN's II-XI intact bilaterally Extrem: General: Yes normal to inspection, Yes full ROM and Yes no clubbing, cyanosis or edema Psych: Appearance: grossly normal and well kempt Speech and movement: Normal speech and movement present Affect: normal affect Progress Note: A&P Assessment and plan (1) PVD (peripheral vascular disease): Status: Acute Assessment and Plan: Patient is status post great toe amp. He has been noncompliant in terms of his medications as an outpatient. Will continue with IV antibiotics. Will plan for dressing change. If stable may plan for discharge as early as tomorrow. Thank you for allowing us to assist in his care. Fall Risk Details Current Medications: Current Medications Generic Name Dose Route Start Last Admin Trade Name Freq PRN Reason Stop Dose Admin Acetaminophen 650 mg 12/23/20 09:17 Acetaminophen 325 Mg Tablet PO ONCE PRN Pain, Mild (Pain Scale 1-3) Acetaminophen 650 mg 12/23/20 11:10 Acetaminophen 325 Mg Tablet PO Q6H PRN Pain, Mild (Pain Scale 1-3) Fentanyl 50 mcg 12/23/20 09:17 Fentanyl Citrate/Pf 100 Mcg/2 Ml Vial IVPUSH Q5M PRN Pain, Severe (Pain Scale 7-10) Gabapentin 600 mg 12/24/20 09:00 Gabapentin 600 Mg Tablet PO DAILY [facility] Heparin Sodium (Porcine) 5,000 unit 12/23/20 12:00 12/24/20 03:42 Heparin Sodium,Porcine 5,000 Unit/Ml Vial SUBCUT 5,000 unit Q8H TJ Administration Sodium Chloride 1,000 mls @ 80 mls/hr 12/23/20 11:15 12/24/20 03:41 Ns IVCONT 80 mls/hr .[id number] TJ Administration Cefazolin Sodium 1 gm/ Sodium 50 mls @ 100 mls/hr 12/23/20 18:00 12/24/20 03:11 Chloride IV Infused Q8H JT Infusion Insulin Glargine 35 unit 12/23/20 21:00 12/23/20 20:40 Insulin Glargine,Hum.Rec.Anlog 100 Unit/Ml 10 Ml Vial SUBCUT 35 unit BEDTIME TJ Administration Insulin Glargine 56 unit 12/24/20 09:00 Insulin Glargine,Hum.Rec.Anlog 100 Unit/Ml 10 Ml Vial SUBCUT DAILY [facility] Lisinopril 5 mg 12/23/20 21:00 12/23/20 20:41 Lisinopril 5 Mg Tablet PO 5 mg DAILY TJ Administration Protocol Morphine Sulfate 2 mg 12/23/20 11:10 Morphine Sulfate 2 Mg/Ml Cartridge IVPUSH Q4H PRN Pain, Severe (Pain Scale 7-10) Ondansetron HCl 4 mg 12/23/20 09:17 Ondansetron Hcl 4 Mg/2 Ml Vial IVPUSH ONCE PRN Nausea and Vomiting Oxycodone HCl 10 mg 12/23/20 09:17 Oxycodone Hcl Immed Release 5 Mg Tablet PO ONCE PRN Pain, Mild (Pain Scale 1-3) Oxycodone HCl 5 mg 12/23/20 11:10 Oxycodone Hcl Immed Release 5 Mg Tablet PO Q4H PRN Pain, Moderate (Pain Scale 4-6 Pharmacy Consult 1 each 12/23/20 13:54 Consult Rx Perform Med Rec MISCELLANE ONCE PRN Consult order Sodium Chloride 3 ml 12/23/20 16:00 12/24/20 07:01 0.9 % Sodium Chloride Flush 3 Ml Syringe IVFLUSH Not Given QSHIFT TJ Time Spent With Patient Time: Total time spent is greater than 50% in coordination of care (as documented) at patient's floor/unit and/or counseling patient: Time with patient: 15 - 24 minutes
[2020-12-24 08:26] LABS: Basophils Percent Auto 0.3 % (0-2); Eosinophils Absolute Auto 0.3 X10*3/uL (0.0-0.4); Eosinophils Percent Auto 3.1 % (0-4); Hematocrit 33.6 % (42-52); Hemoglobin 11.4 g/dl (14.0-18.0); Imm Gran Abs Auto 0.06 X10*3/uL (0.00-0.03); Imm Gran Pct Auto 0.5 % (0.0-0.4); Lymphocytes Absolute Auto 1.9 X10*3/uL (1.2-4.9); Lymphocytes Percent Auto 17.4 % (20-40); Mean Corpuscular HGB Conc 33.9 g/dl (31.0-36.0); Mean Corpuscular Hemoglobin 30.7 pg (27.0-33.0); Mean Corpuscular Volume 90.6 fL (80-98); Mean Platelet Volume 9.9 fL (9.4-12.4); Monocytes Absolute Auto 1.3 X10*3/uL (0.1-1.2); Monocytes Percent Auto 11.5 % (2-11); Neutrophils Absolute Auto 7.4 X10*3/uL (2.0-8.3); Neutrophils Percent Auto 67.2 % (45-73); Platelet Count 348 X10*3/uL (160-400); Red Blood Count 3.71 X10*6/uL (4.60-5.80); Red Cell Distribution Width 12.2 % (11.0-16.0)
[2020-12-24 08:53] LABS: Anion Gap 13 (12-20); Blood Urea Nitrogen 15 mg/dL (9-16); Carbon Dioxide 26 mmol/L (22-29); Chloride 102 mmol/L (96-108); Estimated Glomerular Filt Rate > 60; Glucose Random 138 mg/dL (60-115); Potassium 4.9 mmol/L (3.3-5.1); Sodium 136 mmol/L (135-145)
[2020-12-24] MEDS: Insulin Glargine,Hum.rec.anlog 100 UNIT/ML 10 ML VIAL 56 UNIT SUBCUT (08:55)
[2020-12-24] MEDS: Gabapentin 600 MG TABLET PO (08:56)
[2020-12-24] MEDS: lisinopriL 5 MG TABLET PO (08:56)
[2020-12-24 09:00] LABS: Calcium 8.9 mg/dL (8.4-10.2)
--- NOTE | 2020-12-24 10:17 | PM.EVENT ---
Event Note Date of Service: 12/24/20 Event Note: S Pt seen and examined no complaints, resting. O vitals - last documneted Gen - NAD CVS - S1S2 Lungs - Clear Ext - dressing in place 60 yo M admitted for amputation. doing fairly well had some surrounding cellulitis and on keflex for the same continue baseline meds remainder of mgmt per vascular medically stable will sign off, please reconsult if any new issues arise
[2020-12-24] MEDS: oxyCODONE HCl Immed Release 5 MG TABLET PO (10:20)
[2020-12-24 11:00] VITALS: BP 127/70; PULSE 86; RESP 18; TEMP 36.6; O2SAT 93
--- NOTE | 2020-12-24 11:07 | MHC.CM.PN ---
Addendum entered by Krista Marie RN 12/24/20 11:19: IMM 12/24/20, EMR REVIEWED, PT ADMITTED S/P LEFT GREAT TOE AMP, CM MET W/PT WHO REPORTS HE LIVES ALONE, HAS A HOME HEALTH AID TWICE [facility], [facility], PT REPORTS HE HAS A WALKER, WC DIABETIC SUPPLIES AND A CPAP AT HOME. PT REPORTS HE DOES NOT WANT STR AND WOULD LIKE TO GO HOME AND RESUME SERVICES, PER PT HIS MOBILITY IS THE SAME PRIOR TO PROCEDURE. D/C PLAN: HOME W/[facility] OF [facility] AND [facility] FOR TRANSPORT HCP ON FILE FROM PREVIOUS VISIT. NERI KENNEDY [phone] PCP: JAMAR SOUTH Original Note:
--- NOTE | 2020-12-24 15:46 | HO.POSTANES ---
Post Anesthesia Evaluation Post Anesthesia Evaluation Vital Signs: Vital Signs Temp Pulse Resp BP Pulse Ox 12/24/20 11:00 97.8 F 86 18 127/70 93 12/24/20 07:00 97.7 F 78 20 130/70 97 Anesthesia: Monitored Mental Status: Awake Pain Control: Satisfactory Nausea/Vomiting: None Hydration: Adequate Anesthesia-Related Issues: No Anes. Related Issues
[2020-12-24 15:48] VITALS: BP 130/72; PULSE 84; RESP 18; TEMP 36.5; O2SAT 97
[2020-12-24] MEDS: 0.9 % Sodium Chloride Flush 3 ML SYRINGE IVFLUSH ×2 (17:44→21:04)
[2020-12-24 19:15] VITALS: BP 111/66; PULSE 84; RESP 18; TEMP 37.1; O2SAT 100
[2020-12-24 20:58] LABS: Glucose, Whole Blood 245 mg/dL (60-115)
[2020-12-24] MEDS: Insulin Glargine,Hum.rec.anlog 100 UNIT/ML 10 ML VIAL 35 UNIT SUBCUT (21:03)
[2020-12-24 23:42] VITALS: BP 118/65; PULSE 75; RESP 20; TEMP 36.4; O2SAT 97
[2020-12-25] VITALS (8 sets, daily range): BP systolic 115–133; BP diastolic 58–74; PULSE 69–85; RESP 16–20; TEMP 36.2–37.3; O2SAT 96–98
[2020-12-25] MEDS: Heparin Sodium,Porcine 5,000 UNIT/ML VIAL 5000 UNIT SUBCUT ×3 (04:27→20:49)
[2020-12-25 07:50] LABS: Glucose, Whole Blood 130 mg/dL (60-115)
[2020-12-25] MEDS: Insulin Glargine,Hum.rec.anlog 100 UNIT/ML 10 ML VIAL 56 UNIT SUBCUT (07:55)
[2020-12-25] MEDS: lisinopriL 5 MG TABLET PO (07:56)
[2020-12-25] MEDS: Gabapentin 600 MG TABLET PO (07:56)
[2020-12-25] MEDS: 0.9 % Sodium Chloride Flush 3 ML SYRINGE IVFLUSH ×3 (07:59→20:49)
[2020-12-25] MEDS: oxyCODONE HCl Immed Release 5 MG TABLET PO ×2 (10:42→23:09)
[2020-12-25 11:17] LABS: Glucose, Whole Blood 201 mg/dL (60-115)
--- NOTE | 2020-12-25 11:47 | HO.VASCPN ---
Subjective Subjective Date of Service: 12/25/20 Patient reports: no new complaints and feels better Interval history: Patient is postop day 2 status post left great toe amputation for gangrene. He appears to be doing relatively well. He is for dressing change today. Pain is reasonably well controlled. Denies any other constitutional Physical Exam Vital Signs: Vital Signs: Last Vital Signs Temp 97.1 F 12/25/20 11:12 Pulse 77 12/25/20 11:12 Resp 18 12/25/20 11:12 BP 121/62 12/25/20 11:12 Pulse Ox 97 12/25/20 11:12 Oxygen Flow Rate 1 12/23/20 09:17 Const: General: cooperative, healthy appearing and no acute distress Orientation/consciousness: oriented to person, oriented to place and oriented to time HENMT: Head: Yes normal to inspection Neck: Carotids: no bruits Chest: Chest palpation & inspection: normal inspection of the chest Resp: Effort & Inspection: normal respiratory effort and able to speak in complete sentences Auscultation: clear to auscultation bilaterally Cardio: Rate: regular rate Heart sounds: S1 normal heart sound present and S2 normal heart sound present GI: Inspection: Yes normal to inspection Skin: General skin exam: no rashes or lesions noted Wounds: amputation site (Incision line with dry eschar and surrounding cellulitis) Neuro: General: oriented to person, oriented to place, oriented to time and CN's II-XI intact bilaterally Extrem: General: Yes normal to inspection, Yes full ROM and Yes no clubbing, cyanosis or edema Psych: Appearance: grossly normal and well kempt Speech and movement: Normal speech and movement present Affect: normal affect Progress Note: A&P Assessment and plan (1) PVD (peripheral vascular disease): Status: Acute Assessment and Plan: Patient is status post great toe amp. There is concerning surrounding cellulitis around this amputation site. I have started him on IV cephazolin. I have held off on starting him on vancomycin as he did have a reaction and decreased platelets to this last time. We will consult Infectious Disease. He will need to stay in the hospital until cellulitis improves. Thank you for allowing us to assist in his care. Fall Risk Details Current Medications: Current Medications Generic Name Dose Route Start Last Admin Trade Name Freq PRN Reason Stop Dose Admin Acetaminophen 650 mg 12/23/20 09:17 Acetaminophen 325 Mg Tablet PO ONCE PRN Pain, Mild (Pain Scale 1-3) Acetaminophen 650 mg 12/23/20 11:10 Acetaminophen 325 Mg Tablet PO Q6H PRN Pain, Mild (Pain Scale 1-3) Fentanyl 50 mcg 12/23/20 09:17 Fentanyl Citrate/Pf 100 Mcg/2 Ml Vial IVPUSH Q5M PRN Pain, Severe (Pain Scale 7-10) Gabapentin 600 mg 12/24/20 09:00 12/25/20 07:56 Gabapentin 600 Mg Tablet PO 600 mg DAILY TJ Administration Heparin Sodium (Porcine) 5,000 unit 12/23/20 12:00 12/25/20 10:42 Heparin Sodium,Porcine 5,000 Unit/Ml Vial SUBCUT 5,000 unit Q8H TJ Administration Cefazolin Sodium 1 gm/ Sodium 50 mls @ 100 mls/hr 12/23/20 18:00 12/25/20 11:25 Chloride IV Infused Q8H TJ Infusion Insulin Glargine 35 unit 12/23/20 21:00 12/24/20 21:03 Insulin Glargine,Hum.Rec.Anlog 100 Unit/Ml 10 Ml Vial SUBCUT 35 unit BEDTIME TJ Administration Insulin Glargine 56 unit 12/24/20 09:00 12/25/20 07:55 Insulin Glargine,Hum.Rec.Anlog 100 Unit/Ml 10 Ml Vial SUBCUT 56 unit DAILY TJ Administration Lisinopril 5 mg 12/23/20 21:00 12/25/20 07:56 Lisinopril 5 Mg Tablet PO 5 mg DAILY TJ Administration Protocol Morphine Sulfate 2 mg 12/23/20 11:10 Morphine Sulfate 2 Mg/Ml Cartridge IVPUSH Q4H PRN Pain, Severe (Pain Scale 7-10) Ondansetron HCl 4 mg 12/23/20 09:17 Ondansetron Hcl 4 Mg/2 Ml Vial IVPUSH ONCE PRN Nausea and Vomiting Oxycodone HCl 10 mg 12/23/20 09:17 Oxycodone Hcl Immed Release 5 Mg Tablet PO ONCE PRN Pain, Mild (Pain Scale 1-3) Oxycodone HCl 5 mg 12/23/20 11:10 12/25/20 10:42 Oxycodone Hcl Immed Release 5 Mg Tablet PO 5 mg Q4H PRN Administration Pain, Moderate (Pain Scale 4-6 Pharmacy Consult 1 each 12/23/20 13:54 Consult Rx Perform Med Rec MISCELLANE ONCE PRN Consult order Sodium Chloride 3 ml 12/23/20 16:00 12/25/20 07:59 0.9 % Sodium Chloride Flush 3 Ml Syringe IVFLUSH 3 ml QSHIFT TJ Administration Time Spent With Patient Time: Total time spent is greater than 50% in coordination of care (as documented) at patient's floor/unit and/or counseling patient: Time with patient: 15 - 24 minutes
--- NOTE | 2020-12-25 12:50 | MHC.CM.PN ---
EMR REVIEWED, PER SURGICAL CONCERNS FOR CELLULITIS SURROUNDING AREA OF AMP, PT STARTED ON IV CEFAZOLIN AND ID CONSULT ORDERED, NO PLAN FOR D/C TODAY.
[2020-12-25 16:23] LABS: Glucose, Whole Blood 202 mg/dL (60-115)
[2020-12-25 20:41] LABS: Glucose, Whole Blood 251 mg/dL (60-115)
[2020-12-25] MEDS: Insulin Glargine,Hum.rec.anlog 100 UNIT/ML 10 ML VIAL 35 UNIT SUBCUT (20:49)
[2020-12-26] VITALS (7 sets, daily range): BP systolic 106–128; BP diastolic 62–74; PULSE 70–89; RESP 19–20; TEMP 36.5–37.2; O2SAT 95–98; BMI 32.8
[2020-12-26] MEDS: Heparin Sodium,Porcine 5,000 UNIT/ML VIAL 5000 UNIT SUBCUT ×3 (02:58→19:38)
[2020-12-26 07:31] LABS: Glucose, Whole Blood 131 mg/dL (60-115)
[2020-12-26] MEDS: lisinopriL 5 MG TABLET PO (08:02)
[2020-12-26] MEDS: Insulin Glargine,Hum.rec.anlog 100 UNIT/ML 10 ML VIAL 56 UNIT SUBCUT (08:02)
[2020-12-26] MEDS: Gabapentin 600 MG TABLET PO (08:03)
[2020-12-26] MEDS: 0.9 % Sodium Chloride Flush 3 ML SYRINGE IVFLUSH ×2 (08:07→19:39)
[2020-12-26 09:39] LABS: Estimated Average Glucose 157 mg/dL; Hemoglobin A1c % 7.1 %
[2020-12-26 10:15] LABS: Anion Gap 14 (12-20); Blood Urea Nitrogen 18 mg/dL (9-16); Carbon Dioxide 27 mmol/L (22-29); Chloride 98 mmol/L (96-108); Estimated Glomerular Filt Rate > 60; Glucose Random 243 mg/dL (60-115); Potassium 4.6 mmol/L (3.3-5.1); Sodium 134 mmol/L (135-145)
[2020-12-26 11:32] LABS: Glucose, Whole Blood 239 mg/dL (60-115)
--- NOTE | 2020-12-26 12:47 | HO.VASCPN ---
Subjective Subjective Date of Service: 12/26/20 Patient reports: no new complaints Interval history: Patient seen and examined with Infectious Disease at bedside. He is postop day 3 status post left great toe amputation. He has continued surrounding cellulitis. Nonhealing amputation site. He now presents for follow-up with dressing change. Physical Exam Vital Signs: Vital Signs: Last Vital Signs Temp 98.4 F 12/26/20 11:22 Pulse 71 12/26/20 11:22 Resp 19 12/26/20 11:22 BP 112/62 12/26/20 11:22 Pulse Ox 98 12/26/20 11:22 Oxygen Flow Rate 1 12/23/20 09:17 Const: General: cooperative, healthy appearing and no acute distress Orientation/consciousness: oriented to person, oriented to place and oriented to time HENMT: Head: Yes normal to inspection Neck: Carotids: no bruits Chest: Chest palpation & inspection: normal inspection of the chest Resp: Effort & Inspection: normal respiratory effort and able to speak in complete sentences Auscultation: clear to auscultation bilaterally Cardio: Rate: regular rate Heart sounds: S1 normal heart sound present and S2 normal heart sound present GI: Inspection: Yes normal to inspection Skin: General skin exam: no rashes or lesions noted Wounds: amputation site (Cellulitis with nonhealing incision line, see picture by Dr. Veliz) Neuro: General: oriented to person, oriented to place, oriented to time and CN's II-XI intact bilaterally Extrem: General: Yes normal to inspection, Yes full ROM and Yes no clubbing, cyanosis or edema Psych: Appearance: grossly normal and well kempt Speech and movement: Normal speech and movement present Affect: normal affect Progress Note: A&P Assessment and plan (1) PVD (peripheral vascular disease): Status: Acute Assessment and Plan: Patient is doing well status post amputation. The concern is the incision line along with surrounding cellulitis. He was seen by Infectious Disease and will be a changing his antibiotic regimen. I did discussed these findings with the patient and he is at high risk for further amputation. Will continue with local wound care and observe closely. Thank you for allowing us to assist in his care. Fall Risk Details Current Medications: Current Medications Generic Name Dose Route Start Last Admin Trade Name Freq PRN Reason Stop Dose Admin Acetaminophen 650 mg 12/23/20 09:17 Acetaminophen 325 Mg Tablet PO ONCE PRN Pain, Mild (Pain Scale 1-3) Acetaminophen 650 mg 12/23/20 11:10 Acetaminophen 325 Mg Tablet PO Q6H PRN Pain, Mild (Pain Scale 1-3) Fentanyl 50 mcg 12/23/20 09:17 Fentanyl Citrate/Pf 100 Mcg/2 Ml Vial IVPUSH Q5M PRN Pain, Severe (Pain Scale 7-10) Gabapentin 600 mg 12/24/20 09:00 12/26/20 08:03 Gabapentin 600 Mg Tablet PO 600 mg DAILY TJ Administration Heparin Sodium (Porcine) 5,000 unit 12/23/20 12:00 12/26/20 12:37 Heparin Sodium,Porcine 5,000 Unit/Ml Vial SUBCUT 5,000 unit Q8H TJ Administration Cefazolin Sodium 1 gm/ Sodium 50 mls @ 100 mls/hr 12/23/20 18:00 12/26/20 10:46 Chloride IV Infused Q8H TJ Infusion Insulin Glargine 35 unit 12/23/20 21:00 12/25/20 20:49 Insulin Glargine,Hum.Rec.Anlog 100 Unit/Ml 10 Ml Vial SUBCUT 35 unit BEDTIME TJ Administration Insulin Glargine 56 unit 12/24/20 09:00 12/26/20 08:02 Insulin Glargine,Hum.Rec.Anlog 100 Unit/Ml 10 Ml Vial SUBCUT 56 unit DAILY TJ Administration Lisinopril 5 mg 12/23/20 21:00 12/26/20 08:02 Lisinopril 5 Mg Tablet PO 5 mg DAILY TJ Administration Protocol Morphine Sulfate 2 mg 12/23/20 11:10 Morphine Sulfate 2 Mg/Ml Cartridge IVPUSH Q4H PRN Pain, Severe (Pain Scale 7-10) Ondansetron HCl 4 mg 12/23/20 09:17 Ondansetron Hcl 4 Mg/2 Ml Vial IVPUSH ONCE PRN Nausea and Vomiting Oxycodone HCl 10 mg 12/23/20 09:17 Oxycodone Hcl Immed Release 5 Mg Tablet PO ONCE PRN Pain, Mild (Pain Scale 1-3) Oxycodone HCl 5 mg 12/23/20 11:10 12/25/20 23:09 Oxycodone Hcl Immed Release 5 Mg Tablet PO 5 mg Q4H PRN Administration Pain, Moderate (Pain Scale 4-6 Pharmacy Consult 1 each 12/23/20 13:54 Consult Rx Perform Med Rec MISCELLANE ONCE PRN Consult order Sodium Chloride 3 ml 12/23/20 16:00 12/26/20 08:07 0.9 % Sodium Chloride Flush 3 Ml Syringe IVFLUSH 3 ml QSHIFT TJ Administration Time Spent With Patient Time: Total time spent is greater than 50% in coordination of care (as documented) at patient's floor/unit and/or counseling patient: Time with patient: 25 - 35 minutes
[2020-12-26] MEDS: Piperacillin Sodium/Tazobactam 3.375 GM in 0.9 % Sodium Chloride 50 ML IV ×2 (14:02→19:38)
--- NOTE | 2020-12-26 14:10 | P.PNIM_ITS ---
Subjective Subjective Date of Service: 12/26/20 Interval History: seen and examined asked for f/u for pt due to worsening foot infection reports no foot pain -- tells me he has no sensation in the L foot denies fevers and chills hopes he can go home on oral antibiotics ROS General - no fevers or chills Cardiovascular - no chest pain Respiratory - no shortness of breath or cough Abdominal- no abdominal pain, nausea, vomiting, diarrhea Physical Exam Vital Signs: Vital Signs: Last Vital Signs Temp 98.4 F 12/26/20 11:22 Pulse 71 12/26/20 11:22 Resp 19 12/26/20 11:22 BP 112/62 12/26/20 11:22 Pulse Ox 98 12/26/20 11:22 Oxygen Flow Rate 1 12/23/20 09:17 Body Mass Index 32.8 Const: Other: General - no acute distress, appears comfortable Cardiovascular - regular rate and rhythm, S1-S2 Lungs - normal respiratory effort, clear to auscultation bilaterally, no wheezing Abdomen - soft, nontender, no rebound or guarding Extremities - R BKA Neuro - awake and alert, no focal deficits Skin - LLE foot; foul smelling; amputation site with surrounding erythema and warmth Objective Data Current Medications Generic Name Dose Route Start Last Admin Trade Name Freq PRN Reason Stop Dose Admin Acetaminophen 650 mg 12/23/20 09:17 Acetaminophen 325 Mg Tablet PO ONCE PRN Pain, Mild (Pain Scale 1-3) Acetaminophen 650 mg 12/23/20 11:10 Acetaminophen 325 Mg Tablet PO Q6H PRN Pain, Mild (Pain Scale 1-3) Fentanyl 50 mcg 12/23/20 09:17 Fentanyl Citrate/Pf 100 Mcg/2 Ml Vial IVPUSH Q5M PRN Pain, Severe (Pain Scale 7-10) Gabapentin 600 mg 12/24/20 09:00 12/26/20 08:03 Gabapentin 600 Mg Tablet PO 600 mg DAILY TJ Administration Heparin Sodium (Porcine) 5,000 unit 12/23/20 12:00 12/26/20 12:37 Heparin Sodium,Porcine 5,000 Unit/Ml Vial SUBCUT 5,000 unit Q8H TJ Administration Piperacillin Sod/Tazobactam 50 mls @ 100 mls/hr 12/26/20 13:45 12/26/20 14:02 Sod 3.375 gm/ Sodium Chloride IV 100 mls/hr Q6H TJ Administration Daptomycin 500 mg/ Sodium 60 mls @ 100 mls/hr 12/26/20 15:00 Chloride IV Q24H [facility] Insulin Glargine 35 unit 12/23/20 21:00 12/25/20 20:49 Insulin Glargine,Hum.Rec.Anlog 100 Unit/Ml 10 Ml Vial SUBCUT 35 unit BEDTIME TJ Administration Insulin Glargine 56 unit 12/24/20 09:00 12/26/20 08:02 Insulin Glargine,Hum.Rec.Anlog 100 Unit/Ml 10 Ml Vial SUBCUT 56 unit DAILY TJ Administration Lisinopril 5 mg 12/23/20 21:00 12/26/20 08:02 Lisinopril 5 Mg Tablet PO 5 mg DAILY [facility] Administration Protocol Morphine Sulfate 2 mg 12/23/20 11:10 Morphine Sulfate 2 Mg/Ml Cartridge IVPUSH Q4H PRN Pain, Severe (Pain Scale 7-10) Ondansetron HCl 4 mg 12/23/20 09:17 Ondansetron Hcl 4 Mg/2 Ml Vial IVPUSH ONCE PRN Nausea and Vomiting Oxycodone HCl 10 mg 12/23/20 09:17 Oxycodone Hcl Immed Release 5 Mg Tablet PO ONCE PRN Pain, Mild (Pain Scale 1-3) Oxycodone HCl 5 mg 12/23/20 11:10 12/25/20 23:09 Oxycodone Hcl Immed Release 5 Mg Tablet PO 5 mg Q4H PRN Administration Pain, Moderate (Pain Scale 4-6 Pharmacy Consult 1 each 12/23/20 13:54 Consult Rx Perform Med Rec MISCELLANE ONCE PRN Consult order Sodium Chloride 3 ml 12/23/20 16:00 12/26/20 14:04 0.9 % Sodium Chloride Flush 3 Ml Syringe IVFLUSH Not Given QSHIFT [facility] Labs CBC & Chem 7: 12/24/20 08:06 12/26/20 09:15 Assessment and Plan (1) PVD (peripheral vascular disease): Status: Acute Assessment and Plan: This is a 60 yo diabetic with multiple medical issues who is admitted post- operatively from a amp of the L 1st toe and subsequently admitted due to surrounding cellulitis and concerning over deeper infection. 1. LLE diabetic foot infection s/p amp of the great toe has foul smelling drainage and probable osteo ID consulted -- dapto + zosyn (has prior severe thrombocytopenia due to vancomcyin) high risk for further amputation 2. DM continue current regime 3. BP on lisinopril, will hold for now incase contrast studies needed 4. PAD aspirin statin on hold due to severe interaction warning with IV daptomcyin 5. DM neuropathy gabapentin Full Code DVT pptx, heparin
[2020-12-26] MEDS: DAPTOmycin 500 MG in 0.9 % Sodium Chloride 50 ML 100 MG IV (15:42)
[2020-12-26] MEDS: Aspirin Enteric Coated 81 MG TABLET.DR PO (16:06)
[2020-12-26 16:07] LABS: Glucose, Whole Blood 215 mg/dL (60-115)
[2020-12-26] MEDS: oxyCODONE HCl Immed Release 5 MG TABLET PO ×2 (16:07→20:12)
[2020-12-26 20:53] LABS: Glucose, Whole Blood 183 mg/dL (60-115)
[2020-12-26] MEDS: Insulin Glargine,Hum.rec.anlog 100 UNIT/ML 10 ML VIAL 35 UNIT SUBCUT (21:03)
--- NOTE | 2020-12-26 21:22 | P.CNID_ITS ---
History of Present Illness Data of Consult Service Date: 12/26/20 Requesting physician: Cameron Figueroa Primary Care Provider: Unknown Physician HPI Reason for consult: nonhealing left leg wound He presents to hospital wi th left foot redness and swelling. He has left TMA now with erythema above area of bernie. He has no fever or chills He has had right great toe amputation and then right TMA 10/10 along with four weeks IV Daptomycin due to MRSA bacteremia. He was initially on Vancomycin but that was stopped due to thrombocytopenia. Review of Systems Review of Systems: Yes all other systems are reviewed and are negative [facility] Past Medical History Medical History (Updated 12/26/20 @ 21:38 by Freya Fleming MD) Amputated great toe of right foot Back pain Diabetic foot infection Drug-induced thrombocytopenia Hyperlipidemia Hypertension IDDM (insulin dependent diabetes mellitus) MGUS (monoclonal gammopathy of unknown significance) Neck pain Peripheral neuropathy Psychiatric diagnosis Sleep apnea Family History Family history: reviewed and not pertinent Surgical History Surgical History H/O colonoscopy Hx of angioplasty Hx of appendectomy Hx of foot surgery Hx of tonsillectomy Hx of umbilical hernia repair Social History Social History Household Members: None Housing: Apartment Do you presently have visiting nurse or other home services: No Alcohol intake: never Smoking Status: Former smoker Smoked in Last 30 Days: No Smoking Quit Date: 35 years ago Second Hand Smoke Exposure: No Use of substances other than those prescribed or required for medical reasons: No Currently Displaying Signs/Symptoms of Drug Intoxication Withdrawal: No Have you been hit, kicked, punched, or otherwise hurt by someone within the past year? If so, by whom?: No Are you DNR?: No Advance Directives: Yes Advance Directives Information Provided: Yes Advance Directives on File: Yes Advance Directives Date on File: 09/27/20 Do you have thoughts of harming others: None Do you have a plan to hurt others: No Plan Recently lost weight without trying: No Nutrition Risks: No Nutritional Risk service: Yes Current occupational status: unemployed Meds Allergies Allergy/AdvReac Type Severity Reaction Status Date / Time vancomycin AdvReac Severe thrombocyto Verified 12/17/20 11:00 penia Active Medications: Current Medications Generic Name Dose Route Start Last Admin Trade Name Daronq PRN Reason Stop Dose Admin Acetaminophen 650 mg 12/23/20 09:17 Acetaminophen 325 Mg Tablet PO ONCE PRN Pain, Mild (Pain Scale 1-3) Acetaminophen 650 mg 12/23/20 11:10 Acetaminophen 325 Mg Tablet PO Q6H PRN Pain, Mild (Pain Scale 1-3) Aspirin 81 mg 12/26/20 14:30 12/26/20 16:06 Aspirin Enteric Coated 81 Mg Tablet.Dr PO 81 mg DAILY TJ Administration Fentanyl 50 mcg 12/23/20 09:17 Fentanyl Citrate/Pf 100 Mcg/2 Ml Vial IVPUSH Q5M PRN Pain, Severe (Pain Scale 7-10) Gabapentin 600 mg 12/24/20 09:00 12/26/20 08:03 Gabapentin 600 Mg Tablet PO 600 mg DAILY TJ Administration Heparin Sodium (Porcine) 5,000 unit 12/23/20 12:00 12/26/20 19:38 Heparin Sodium,Porcine 5,000 Unit/Ml Vial SUBCUT 5,000 unit Q8H TJ Administration Piperacillin Sod/Tazobactam 50 mls @ 100 mls/hr 12/26/20 13:45 12/26/20 20:33 Sod 3.375 gm/ Sodium Chloride IV Infused Q6H TJ Infusion Daptomycin 500 mg/ Sodium 60 mls @ 100 mls/hr 12/26/20 15:00 12/26/20 16:18 Chloride IV Infused Q24H TJ Infusion Insulin Glargine 35 unit 12/23/20 21:00 12/26/20 21:03 Insulin Glargine,Hum.Rec.Anlog 100 Unit/Ml 10 Ml Vial SUBCUT 35 unit BEDTIME TJ Administration Insulin Glargine 56 unit 12/24/20 09:00 12/26/20 08:02 Insulin Glargine,Hum.Rec.Anlog 100 Unit/Ml 10 Ml Vial SUBCUT 56 unit DAILY TJ Administration Lisinopril 5 mg 12/23/20 21:00 12/26/20 08:02 Lisinopril 5 Mg Tablet PO 5 mg DAILY TJ Administration Protocol Morphine Sulfate 2 mg 12/23/20 11:10 Morphine Sulfate 2 Mg/Ml Cartridge IVPUSH Q4H PRN Pain, Severe (Pain Scale 7-10) Ondansetron HCl 4 mg 12/23/20 09:17 Ondansetron Hcl 4 Mg/2 Ml Vial IVPUSH ONCE PRN Nausea and Vomiting Oxycodone HCl 10 mg 12/23/20 09:17 Oxycodone Hcl Immed Release 5 Mg Tablet PO ONCE PRN Pain, Mild (Pain Scale 1-3) Oxycodone HCl 5 mg 12/23/20 11:10 12/26/20 20:12 Oxycodone Hcl Immed Release 5 Mg Tablet PO 5 mg Q4H PRN Administration Pain, Moderate (Pain Scale 4-6 Pharmacy Consult 1 each 12/23/20 13:54 Consult Rx Perform Med Rec MISCELLANE ONCE PRN Consult order Sodium Chloride 3 ml 12/23/20 16:00 12/26/20 19:39 0.9 % Sodium Chloride Flush 3 Ml Syringe IVFLUSH 3 ml QSHIFT TJ Administration Home Medications Medication Instructions Recorded Confirmed Last Taken Type Victoza 3-Chet 1.8 mg SUBCUT DAILY 07/17/20 12/23/20 12/23/20 09:00 History aspirin 81 mg PO DAILY 07/17/20 12/23/20 12/23/20 09:00 History gabapentin 600 mg PO DAILY 07/17/20 12/23/20 12/23/20 09:00 History lisinopril 5 mg PO DAILY 07/17/20 12/23/20 12/23/20 09:00 History metformin 1,000 mg PO BID 07/17/20 12/23/20 12/23/20 09:00 History cholecalciferol (vitamin D3) 25 mcg PO DAILY 09/04/20 12/23/20 12/23/20 09:00 History fluoxetine 20 mg capsule 20 mg PO DAILY 10/01/20 12/23/20 12/23/20 09:00 History atorvastatin 40 mg PO DAILY 10/09/20 12/23/20 12/23/20 09:00 History albuterol sulfate 90 mcg/actuation 2 puff INHALATION Q4-6H PRN 12/17/20 12/23/20 Unknown History aerosol inhaler insulin degludec [Tresiba 50 unit SUBCUT QPM 12/23/20 12/23/20 12/23/20 09:00 History FlexTouch U-100] insulin degludec [Tresiba 80 unit SUBCUT QAM 12/23/20 12/23/20 12/23/20 09:00 History FlexTouch U-100] Physical Exam Vital Signs: Vital Signs: Last Vital Signs Temp 98.9 F 12/26/20 19:05 Pulse 89 12/26/20 19:05 Resp 20 12/26/20 19:05 BP 106/62 12/26/20 19:05 Pulse Ox 98 12/26/20 19:05 Oxygen Flow Rate 1 12/23/20 09:17 Body Mass Index 32.8 Const: General: cooperative HENMT: Head: Yes normal to inspection Mouth: Normal oral and palatal mucosa present Eyes: General: appearance normal, both eyes and all related structures Resp: Effort & Inspection: normal respiratory effort Cardio: Rate: regular rate Rhythm: regular rhythm GI: Palpation (GI): Soft to palpation and nontender : General: Yes no CVA tenderness Back/Spine/Pelvis: Back: no CVA tenderness Skin: General skin exam: no rashes or lesions noted Neuro: Other: neuropathy, left reddened foot Results Labs CBC & Chem 7: 12/27/20 05:47 12/27/20 05:47 Labs: BMP 12/26/20 09:15 Sodium 134 L Potassium 4.6 Chloride 98 Carbon Dioxide 27 BUN 18 H Creatinine 0.93 Calcium 9.0 Assessment and Plan (1) PVD (peripheral vascular disease): Status: Acute (2) Status post below-knee amputation: Status: Acute (3) Diabetic foot infection: Problem details: He has worsening infection s/p TMA He has had MRSA in past He has had thrombocytopenia likely due to Vancomycin Status: Acute Would give Zosyn and Daptomycin (he already has statin on hold) He possibly may need further surgery if fails to improve.
[2020-12-27] VITALS (7 sets, daily range): BP systolic 110–140; BP diastolic 59–75; PULSE 69–82; RESP 12–20; TEMP 36.8–37.3; O2SAT 95–97
[2020-12-27] MEDS: Piperacillin Sodium/Tazobactam 3.375 GM in 0.9 % Sodium Chloride 50 ML IV ×4 (01:35→19:53)
[2020-12-27] MEDS: Heparin Sodium,Porcine 5,000 UNIT/ML VIAL 5000 UNIT SUBCUT ×3 (03:38→19:52)
[2020-12-27 06:10] LABS: Hematocrit 32.7 % (42-52); Hemoglobin 10.6 g/dl (14.0-18.0); Mean Corpuscular HGB Conc 32.4 g/dl (31.0-36.0); Mean Corpuscular Hemoglobin 29.9 pg (27.0-33.0); Mean Corpuscular Volume 92.1 fL (80-98); Platelet Count 332 X10*3/uL (160-400); Red Blood Count 3.55 X10*6/uL (4.60-5.80); Red Cell Distribution Width 12.4 % (11.0-16.0); White Blood Count 10.4 X10*3/uL (4.8-10.8)
[2020-12-27 06:31] LABS: Anion Gap 14 (12-20); Blood Urea Nitrogen 24 mg/dL (9-16); Calcium 8.9 mg/dL (8.4-10.2); Carbon Dioxide 27 mmol/L (22-29); Chloride 99 mmol/L (96-108); Creatinine Clr Calc Pharmacy 96.3; Estimated Glomerular Filt Rate > 60; Glucose Random 162 mg/dL (60-115); Potassium 4.9 mmol/L (3.3-5.1); Sodium 135 mmol/L (135-145)
[2020-12-27] MEDS: oxyCODONE HCl Immed Release 5 MG TABLET 10 MG PO (07:18)
[2020-12-27] MEDS: Aspirin Enteric Coated 81 MG TABLET.DR PO (07:18)
[2020-12-27] MEDS: Gabapentin 600 MG TABLET PO (07:18)
[2020-12-27] MEDS: 0.9 % Sodium Chloride Flush 3 ML SYRINGE IVFLUSH ×3 (07:19→23:50)
[2020-12-27] MEDS: Insulin Glargine,Hum.rec.anlog 100 UNIT/ML 10 ML VIAL 56 UNIT SUBCUT (07:53)
[2020-12-27 08:56] LABS: Glucose, Whole Blood 146 mg/dL (60-115)
--- NOTE | 2020-12-27 09:27 | HO.VASCPN ---
Subjective Subjective Date of Service: 12/27/20 Patient reports: no new complaints and feels better Interval history: Patient seen examined. No interval changes overnight. Feels relatively well. Continues to have a nonhealing left great toe amputation site. He has been started on a new antibiotic regimen of daptomycin and Zosyn. He now presents for routine follow-up. Physical Exam Vital Signs: Vital Signs: Last Vital Signs Temp 99.2 F 12/27/20 07:26 Pulse 73 12/27/20 07:26 Resp 20 12/27/20 07:26 BP 112/70 12/27/20 07:26 Pulse Ox 95 12/27/20 07:26 Oxygen Flow Rate 1 12/23/20 09:17 Body Mass Index 32.8 Const: General: cooperative, healthy appearing and no acute distress Orientation/consciousness: oriented to person, oriented to place and oriented to time HENMT: Head: Yes normal to inspection Neck: Carotids: no bruits Chest: Chest palpation & inspection: normal inspection of the chest Resp: Effort & Inspection: normal respiratory effort and able to speak in complete sentences Auscultation: clear to auscultation bilaterally Cardio: Rate: regular rate Heart sounds: S1 normal heart sound present and S2 normal heart sound present GI: Inspection: Yes normal to inspection Skin: General skin exam: no rashes or lesions noted Wounds: wounds noted (Cellulitis and nonhealing ulcer left great toe) Neuro: General: oriented to person, oriented to place, oriented to time and CN's II-XI intact bilaterally Extrem: General: Yes normal to inspection, Yes full ROM and Yes no clubbing, cyanosis or edema Psych: Appearance: grossly normal and well kempt Speech and movement: Normal speech and movement present Affect: normal affect Progress Note: A&P Assessment and plan (1) PVD (peripheral vascular disease): Status: Acute Assessment and Plan: Patient continues to have nonhealing ulcer of left great toe amputation site. I have discussed the pathophysiology of peripheral vascular disease with the patient. I have also discussed risk factor modification. I have reviewed the patient's arterial testing which reveals below-knee disease from ultrasound on 09/05/2020. the patient would benefit from a left leg endovascular peripheral angiogram with possible angioplasty, stent, and/or atherectomy. This has been discussed in detail with the patient along with risks, benefits, and complications. This includes but is not limited to bleeding, infection, heart attack, need for emergent surgical repair, limb ischemia, blood vessel damage, bleeding, puncture, kidney injury, bruising, allergic reaction, and skin reaction. The patient demonstrates a clear understanding. We will schedule for Wednesday. Fall Risk Details Current Medications: Current Medications Generic Name Dose Route Start Last Admin Trade Name Freq PRN Reason Stop Dose Admin Acetaminophen 650 mg 12/23/20 09:17 Acetaminophen 325 Mg Tablet PO ONCE PRN Pain, Mild (Pain Scale 1-3) Acetaminophen 650 mg 12/23/20 11:10 Acetaminophen 325 Mg Tablet PO Q6H PRN Pain, Mild (Pain Scale 1-3) Albuterol/Ipratropium 3 ml 12/27/20 02:12 Albuterol/Iprat 2.5/0.5mg 3 Ml Ampul.Neb INHALE RQ4H PRN Shortness of Breath/Wheezing Aspirin 81 mg 12/26/20 14:30 12/27/20 07:18 Aspirin Enteric Coated 81 Mg Tablet. PO 81 mg DAILY TJ Administration Fentanyl 50 mcg 12/23/20 09:17 Fentanyl Citrate/Pf 100 Mcg/2 Ml Vial IVPUSH Q5M PRN Pain, Severe (Pain Scale 7-10) Gabapentin 600 mg 12/24/20 09:00 12/27/20 07:18 Gabapentin 600 Mg Tablet PO 600 mg DAILY TJ Administration Heparin Sodium (Porcine) 5,000 unit 12/23/20 12:00 12/27/20 03:38 Heparin Sodium,Porcine 5,000 Unit/Ml Vial SUBCUT 5,000 unit Q8H TJ Administration Piperacillin Sod/Tazobactam 50 mls @ 100 mls/hr 12/26/20 13:45 12/27/20 07:48 Sod 3.375 gm/ Sodium Chloride IV Infused Q6H TJ Infusion Daptomycin 500 mg/ Sodium 60 mls @ 100 mls/hr 12/26/20 15:00 12/26/20 16:18 Chloride IV Infused Q24H TJ Infusion Sodium Chloride 1,000 mls @ 100 mls/hr 12/30/20 09:00 Ns IVCONT .Q10H TJ Insulin Glargine 35 unit 12/23/20 21:00 12/26/20 21:03 Insulin Glargine,Hum.Rec.Anlog 100 Unit/Ml 10 Ml Vial SUBCUT 35 unit BEDTIME TJ Administration Insulin Glargine 56 unit 12/24/20 09:00 12/27/20 07:53 Insulin Glargine,Hum.Rec.Anlog 100 Unit/Ml 10 Ml Vial SUBCUT 56 unit DAILY TJ Administration Lisinopril 5 mg 12/23/20 21:00 12/26/20 08:02 Lisinopril 5 Mg Tablet PO 5 mg DAILY TJ Administration Protocol Morphine Sulfate 2 mg 12/23/20 11:10 Morphine Sulfate 2 Mg/Ml Cartridge IVPUSH Q4H PRN Pain, Severe (Pain Scale 7-10) Ondansetron HCl 4 mg 12/23/20 09:17 Ondansetron Hcl 4 Mg/2 Ml Vial IVPUSH ONCE PRN Nausea and Vomiting Oxycodone HCl 5 mg 12/23/20 11:10 12/26/20 20:12 Oxycodone Hcl Immed Release 5 Mg Tablet PO 5 mg Q4H PRN Administration Pain, Moderate (Pain Scale 4-6 Pharmacy Consult 1 each 12/23/20 13:54 Consult Rx Perform Med Rec MISCELLANE ONCE PRN Consult order Sodium Chloride 3 ml 12/23/20 16:00 12/27/20 07:19 0.9 % Sodium Chloride Flush 3 Ml Syringe IVFLUSH 3 ml QSHIFT TJ Administration Time Spent With Patient Time: Total time spent is greater than 50% in coordination of care (as documented) at patient's floor/unit and/or counseling patient: Time with patient: 15 - 24 minutes
--- NOTE | 2020-12-27 11:09 | MHC.CM.PN ---
EMR REVIEWED, PER HOSPITALIST PT WILL NEED IV ABX THROUGH WEEKEND, WILL HAVE ANGIO ON SATURDAY 12/30 AND MAY NEED BKA. CM WILL CONT TO FOLLOW. D/C PLAN: HOME W/[facility]UMP W/[facility] HOME [facility], [facility] FOR TRANSPORT IF BKA POSSIBLE STR W/[facility] TRANSPORT
[2020-12-27] MEDS: oxyCODONE HCl Immed Release 5 MG TABLET PO (11:37)
[2020-12-27 11:48] LABS: Glucose, Whole Blood 184 mg/dL (60-115)
--- NOTE | 2020-12-27 11:58 | P.PNIM_ITS ---
Subjective Subjective Date of Service: 12/27/20 Interval History: seen and examined sleeping, doesnt want to talk much but no new complaints ROS General - no fevers or chills Cardiovascular - no chest pain Respiratory - no shortness of breath or cough Abdominal- no abdominal pain, nausea, vomiting, diarrhea Physical Exam Vital Signs: Vital Signs: Last Vital Signs Temp 99.2 F 12/27/20 07:26 Pulse 73 12/27/20 07:26 Resp 20 12/27/20 07:26 BP 112/70 12/27/20 07:26 Pulse Ox 95 12/27/20 07:26 Oxygen Flow Rate 1 12/23/20 09:17 Body Mass Index 32.8 Const: Other: General - no acute distress, appears comfortable Cardiovascular - regular rate and rhythm, S1-S2 Lungs - normal respiratory effort, clear to auscultation bilaterally, no wheezing Abdomen - soft, nontender, no rebound or guarding Extremities - R BKA Neuro - awake and alert, no focal deficits Skin - LLE foot - dressing in place Objective Data Current Medications Generic Name Dose Route Start Last Admin Trade Name Daronq PRN Reason Stop Dose Admin Acetaminophen 650 mg 12/23/20 09:17 Acetaminophen 325 Mg Tablet PO ONCE PRN Pain, Mild (Pain Scale 1-3) Acetaminophen 650 mg 12/23/20 11:10 Acetaminophen 325 Mg Tablet PO Q6H PRN Pain, Mild (Pain Scale 1-3) Albuterol/Ipratropium 3 ml 12/27/20 02:12 Albuterol/Iprat 2.5/0.5mg 3 Ml Ampul.Neb INHALE RQ4H PRN Shortness of Breath/Wheezing Aspirin 81 mg 12/26/20 14:30 12/27/20 07:18 Aspirin Enteric Coated 81 Mg Tablet. PO 81 mg DAILY TJ Administration Fentanyl 50 mcg 12/23/20 09:17 Fentanyl Citrate/Pf 100 Mcg/2 Ml Vial IVPUSH Q5M PRN Pain, Severe (Pain Scale 7-10) Gabapentin 600 mg 12/24/20 09:00 12/27/20 07:18 Gabapentin 600 Mg Tablet PO 600 mg DAILY TJ Administration Heparin Sodium (Porcine) 5,000 unit 12/23/20 12:00 12/27/20 11:37 Heparin Sodium,Porcine 5,000 Unit/Ml Vial SUBCUT 5,000 unit Q8H TJ Administration Piperacillin Sod/Tazobactam 50 mls @ 100 mls/hr 12/26/20 13:45 12/27/20 07:48 Sod 3.375 gm/ Sodium Chloride IV Infused Q6H TJ Infusion Daptomycin 500 mg/ Sodium 60 mls @ 100 mls/hr 12/26/20 15:00 12/26/20 16:18 Chloride IV Infused Q24H TJ Infusion Sodium Chloride 1,000 mls @ 100 mls/hr 12/30/20 09:00 Ns IVCONT .Q10H TJ Insulin Glargine 35 unit 12/23/20 21:00 12/26/20 21:03 Insulin Glargine,Hum.Rec.Anlog 100 Unit/Ml 10 Ml Vial SUBCUT 35 unit BEDTIME TJ Administration Insulin Glargine 56 unit 12/24/20 09:00 12/27/20 07:53 Insulin Glargine,Hum.Rec.Anlog 100 Unit/Ml 10 Ml Vial SUBCUT 56 unit DAILY TJ Administration Lisinopril 5 mg 12/23/20 21:00 12/26/20 08:02 Lisinopril 5 Mg Tablet PO 5 mg DAILY TJ Administration Protocol Morphine Sulfate 2 mg 12/23/20 11:10 Morphine Sulfate 2 Mg/Ml Cartridge IVPUSH Q4H PRN Pain, Severe (Pain Scale 7-10) Ondansetron HCl 4 mg 12/23/20 09:17 Ondansetron Hcl 4 Mg/2 Ml Vial IVPUSH ONCE PRN Nausea and Vomiting Oxycodone HCl 5 mg 12/23/20 11:10 12/27/20 11:37 Oxycodone Hcl Immed Release 5 Mg Tablet PO 5 mg Q4H PRN Administration Pain, Moderate (Pain Scale 4-6 Pharmacy Consult 1 each 12/23/20 13:54 Consult Rx Perform Med Rec MISCELLANE ONCE PRN Consult order Sodium Chloride 3 ml 12/23/20 16:00 12/27/20 07:19 0.9 % Sodium Chloride Flush 3 Ml Syringe IVFLUSH 3 ml QSHIFT TJ Administration Labs CBC & Chem 7: 12/27/20 05:47 12/27/20 05:47 Assessment and Plan (1) PVD (peripheral vascular disease): Status: Acute Assessment and Plan: This is a 60 yo diabetic with multiple medical issues who is admitted post- operatively from a amp of the L 1st toe and subsequently admitted due to surrounding cellulitis and concerning over deeper infection. 1. LLE diabetic foot infection s/p amp of the great toe zosyn/dapto - day #2 may need further amp if doesnt improve 2. DM continue current regime 3. BP on lisinopril, will hold for now incase contrast studies needed 4. PAD aspirin statin on hold due to severe interaction warning with IV daptomcyin 5. DM neuropathy gabapentin Full Code DVT pptx, heparin
--- NOTE | 2020-12-27 13:28 | PM.IDPN ---
Subjective Subjective Date of Service: 12/27/20 Interval History: he is on Zosyn and Daptomycin,day 2 he is sleeping Objective Data Labs CBC & Chem 7: 12/27/20 05:47 12/27/20 05:47 Labs: Laboratory Results - last 24 hr 12/26/20 12/26/20 12/27/20 16:03 20:48 05:47 WBC 10.4 RBC 3.55 L Hgb 10.6 L Hct 32.7 L MCV 92.1 MCH 29.9 MCHC 32.4 RDW 12.4 Plt Count 332 MPV 10.0 Absolute Nucleated RBC 0.000 Nucleated RBC % (auto) 0.0 Sodium Potassium Chloride Carbon Dioxide Anion Gap BUN Creatinine Estim Creat Clear Calc Estimated GFR POC Glucose 215 H 183 H Random Glucose Calcium 12/27/20 12/27/20 12/27/20 05:47 07:24 11:35 WBC RBC Hgb Hct MCV MCH MCHC RDW Plt Count MPV Absolute Nucleated RBC Nucleated RBC % (auto) Sodium 135 Potassium 4.9 Chloride 99 Carbon Dioxide 27 Anion Gap 14 BUN 24 H Creatinine 1.09 Estim Creat Clear Calc 96.3 Estimated GFR > 60 POC Glucose 146 H 184 H Random Glucose 162 H Calcium 8.9 Physical Exam Vital Signs: Vital Signs: Last Vital Signs Temp 98.2 F 12/27/20 12:00 Pulse 69 12/27/20 12:00 Resp 20 12/27/20 12:00 BP 117/59 L 12/27/20 12:00 Pulse Ox 95 12/27/20 12:00 Oxygen Flow Rate 1 12/23/20 09:17 Body Mass Index 32.8 Const: General: tired appearing Resp: Effort & Inspection: normal respiratory effort Cardio: Rate: regular rate Rhythm: regular rhythm Skin: General skin exam: no rashes or lesions noted Extrem: Other: wrapped foot Assessment and Plan Assessment and plan (1) Diabetic foot infection: Problem details: He is on antibiotics,day 2 He is being followed by Dr Figueroa of [facility] Status: Acute Assessment and Plan: Would continue current med,duration to be determined Follow vascular ,further surgery if not improving Time Spent With Patient Time: Total time spent is greater than 50% in coordination of care (as documented) at patient's floor/unit and/or counseling patient: Time with patient: 15 - 24 minutes
[2020-12-27] MEDS: DAPTOmycin 500 MG in 0.9 % Sodium Chloride 50 ML 100 MG IV (14:07)
[2020-12-27 16:15] LABS: Glucose, Whole Blood 203 mg/dL (60-115)
[2020-12-27 20:01] LABS: Glucose, Whole Blood 303 mg/dL (60-115)
[2020-12-27] MEDS: Insulin Glargine,Hum.rec.anlog 100 UNIT/ML 10 ML VIAL 35 UNIT SUBCUT (20:32)
[2020-12-28] VITALS (8 sets, daily range): BP systolic 108–149; BP diastolic 65–77; PULSE 70–81; RESP 18–20; TEMP 36.4–36.9; O2SAT 93–99
[2020-12-28] MEDS: Piperacillin Sodium/Tazobactam 3.375 GM in 0.9 % Sodium Chloride 50 ML IV ×4 (02:00→20:35)
[2020-12-28] MEDS: Heparin Sodium,Porcine 5,000 UNIT/ML VIAL 5000 UNIT SUBCUT ×3 (04:59→20:35)
[2020-12-28 07:43] LABS: Glucose, Whole Blood 176 mg/dL (60-115)
[2020-12-28] MEDS: Gabapentin 600 MG TABLET PO (07:56)
[2020-12-28] MEDS: Insulin Glargine,Hum.rec.anlog 100 UNIT/ML 10 ML VIAL 56 UNIT SUBCUT (07:56)
[2020-12-28] MEDS: 0.9 % Sodium Chloride Flush 3 ML SYRINGE IVFLUSH ×3 (07:56→20:36)
[2020-12-28] MEDS: Aspirin Enteric Coated 81 MG TABLET.DR PO (07:56)
[2020-12-28] MEDS: Lactulose 20 GM/30 ML SOLUTION 10 GM PO (10:39)
[2020-12-28] MEDS: Morphine Sulfate 2 MG/ML CARTRIDGE IVPUSH (10:43)
[2020-12-28 11:07] LABS: Glucose, Whole Blood 252 mg/dL (60-115)
--- NOTE | 2020-12-28 12:37 | HO.PM.IMPN ---
Subjective Subjective Date of Service: 12/28/20 Interval History: Patient complaining of left foot pain and asking for higher dose of pain medication, complaining of constipation, no bowel movement since admission. ROS General no headache, no dizziness, no fever chills. CVS no chest pain, no palpitation. Respiratory no cough no sob. Gastrointestinal no nausea, no vomiting, no abdominal pain Physical Exam Vital Signs: Vital Signs: Last Vital Signs Temp 98.2 F 12/28/20 11:10 Pulse 79 12/28/20 11:10 Resp 20 12/28/20 11:10 BP 137/66 12/28/20 11:10 Pulse Ox 93 12/28/20 11:10 Oxygen Flow Rate 1 12/23/20 09:17 Body Mass Index 32.8 General resting comfortably in no acute distress. Neck supple no JVD. CVS regular rate rhythm, Respiratory lungs clear to auscultation, no respiratory distress, no wheeze, no rhonchi. Gastrointestinal abdomen soft, nontender, bowel sounds audible, no guarding , no rigidity. Extremities Rt Bka,left foot dressing in place no drainge. Neuro nonfocal , speech clear. Skin no rash Objective Data Current Medications Generic Name Dose Route Start Last Admin Trade Name Freq PRN Reason Stop Dose Admin Acetaminophen 650 mg 12/23/20 09:17 Acetaminophen 325 Mg Tablet PO ONCE PRN Pain, Mild (Pain Scale 1-3) Acetaminophen 650 mg 12/23/20 11:10 Acetaminophen 325 Mg Tablet PO Q6H PRN Pain, Mild (Pain Scale 1-3) Albuterol/Ipratropium 3 ml 12/27/20 02:12 Albuterol/Iprat 2.5/0.5mg 3 Ml Ampul.Neb INHALE RQ4H PRN Shortness of Breath/Wheezing Aspirin 81 mg 12/26/20 14:30 12/28/20 07:56 Aspirin Enteric Coated 81 Mg Tablet. PO 81 mg DAILY TJ Administration Docusate Sodium 100 mg 12/28/20 21:00 Docusate Sodium 100 Mg Capsule PO BID TJ Gabapentin 600 mg 12/24/20 09:00 12/28/20 07:56 Gabapentin 600 Mg Tablet PO 600 mg DAILY TJ Administration Heparin Sodium (Porcine) 5,000 unit 12/23/20 12:00 12/28/20 11:34 Heparin Sodium,Porcine 5,000 Unit/Ml Vial SUBCUT 5,000 unit Q8H TJ Administration Piperacillin Sod/Tazobactam 50 mls @ 100 mls/hr 12/26/20 13:45 12/28/20 08:33 Sod 3.375 gm/ Sodium Chloride IV Infused Q6H TJ Infusion Daptomycin 500 mg/ Sodium 60 mls @ 100 mls/hr 12/26/20 15:00 12/27/20 14:48 Chloride IV Infused Q24H TJ Infusion Sodium Chloride 1,000 mls @ 100 mls/hr 12/30/20 09:00 Ns IVCONT .Q10H TJ Insulin Glargine 35 unit 12/23/20 21:00 12/27/20 20:32 Insulin Glargine,Hum.Rec.Anlog 100 Unit/Ml 10 Ml Vial SUBCUT 35 unit BEDTIME TJ Administration Insulin Glargine 56 unit 12/24/20 09:00 12/28/20 07:56 Insulin Glargine,Hum.Rec.Anlog 100 Unit/Ml 10 Ml Vial SUBCUT 56 unit DAILY TJ Administration Lisinopril 5 mg 12/23/20 21:00 12/26/20 08:02 Lisinopril 5 Mg Tablet PO 5 mg DAILY TJ Administration Protocol Ondansetron HCl 4 mg 12/23/20 09:17 Ondansetron Hcl 4 Mg/2 Ml Vial IVPUSH ONCE PRN Nausea and Vomiting Oxycodone HCl 7.5 mg 12/28/20 10:09 Oxycodone Hcl Immed Release 5 Mg Tablet PO Q4H PRN Pain, Moderate (Pain Scale 4-6 Pharmacy Consult 1 each 12/23/20 13:54 Consult Rx Perform Med Rec MISCELLANE ONCE PRN Consult order Sodium Chloride 3 ml 12/23/20 16:00 12/28/20 07:56 0.9 % Sodium Chloride Flush 3 Ml Syringe IVFLUSH 3 ml QSHIFT [facility] Administration Labs CBC & Chem 7: 12/27/20 05:47 12/27/20 05:47 Assessment and Plan (1) Diabetic foot infection: Problem details: He is on antibiotics,day 2 He is being followed by Dr Figueroa of [facility] Status: Acute (2) PVD (peripheral vascular disease): Status: Acute (3) Status post below-knee amputation: Status: Acute (4) MGUS (monoclonal gammopathy of unknown significance): Status: Acute (5) Hyperlipidemia: Status: Acute (6) Hypertension: Status: Acute Assessment and Plan: 60 yo diabetic with multiple medical issues who is admitted post-operatively from a amp of the L 1st toe and subsequently admitted due to surrounding cellulitis and concerning over deeper infection. 1. LLE diabetic foot infection, nonhealing left great toe amputation site No fevers, WBC normalized, blood cultures x2 negative, continue zosyn/dapto - day #3, will increase dose of oxycodone to 7.5 mg Q4h prn, patient is scheduled for angiogram on Wednesday by Dr. Figueroa 2. DM Blood sugars elevated, recommend diabetic diet continue Lantus, will add insulin sliding scale. 3. BP Blood pressure is stable lisinopril on hold for possibility of further contrast studies 4. PAD continue aspirin, statin on hold due to severe interaction warning with IV daptomcyin 5. DM neuropathy Continue gabapentin 6. Constipation will add stool softeners likely due to narcotic. Full Code DVT pptx, heparin
[2020-12-28] MEDS: DAPTOmycin 500 MG in 0.9 % Sodium Chloride 50 ML 100 MG IV (14:50)
[2020-12-28] MEDS: Insulin Lispro 100 UNIT/ML 3 ML VIAL SUBCUT ×2 (16:51→20:36)
[2020-12-28 16:53] LABS: Glucose, Whole Blood 309 mg/dL (60-115)
[2020-12-28 20:15] LABS: Glucose, Whole Blood 350 mg/dL (60-115)
[2020-12-28] MEDS: Docusate Sodium 100 MG CAPSULE PO (20:35)
[2020-12-28] MEDS: Insulin Glargine,Hum.rec.anlog 100 UNIT/ML 10 ML VIAL 35 UNIT SUBCUT (20:36)
[2020-12-29] VITALS (7 sets, daily range): BP systolic 102–127; BP diastolic 59–73; PULSE 67–120; RESP 16–28; TEMP 36.4–36.8; O2SAT 95–98; BMI 32.2
[2020-12-29] MEDS: Piperacillin Sodium/Tazobactam 3.375 GM in 0.9 % Sodium Chloride 50 ML IV ×4 (02:01→21:01)
[2020-12-29] MEDS: Heparin Sodium,Porcine 5,000 UNIT/ML VIAL 5000 UNIT SUBCUT ×3 (03:03→21:03)
[2020-12-29 07:19] LABS: Glucose, Whole Blood 154 mg/dL (60-115)
[2020-12-29] MEDS: 0.9 % Sodium Chloride Flush 3 ML SYRINGE IVFLUSH ×2 (07:49→21:03)
[2020-12-29] MEDS: Insulin Lispro 100 UNIT/ML 3 ML VIAL SUBCUT ×4 (07:49→21:02)
[2020-12-29] MEDS: Docusate Sodium 100 MG CAPSULE PO ×2 (07:50→21:03)
[2020-12-29] MEDS: Aspirin Enteric Coated 81 MG TABLET.DR PO (07:50)
[2020-12-29] MEDS: Gabapentin 600 MG TABLET PO (07:50)
[2020-12-29] MEDS: Insulin Glargine,Hum.rec.anlog 100 UNIT/ML 10 ML VIAL 56 UNIT SUBCUT (07:50)
[2020-12-29] MEDS: oxyCODONE HCl Immed Release 5 MG TABLET 7.5 MG PO (07:51)
[2020-12-29] MEDS: Lactulose 20 GM/30 ML SOLUTION PO (10:38)
[2020-12-29 11:11] LABS: Glucose, Whole Blood 295 mg/dL (60-115)
--- NOTE | 2020-12-29 14:55 | HO.PM.IMPN ---
Subjective Subjective Date of Service: 12/29/20 Interval History: No acute complaints, left foot pain better controlled with high-dose narcotic, c/o constipation, no bowel movement since admission despite use of lactulose. ROS General no headache, no dizziness, no fever chills. CVS no chest pain, no palpitation. Respiratory no cough no sob. Gastrointestinal no nausea, no vomiting, no abdominal pain Physical Exam Vital Signs: Vital Signs: Last Vital Signs Temp 97.6 F 12/29/20 11:59 Pulse 120 H 12/29/20 08:00 Resp 26 H 12/29/20 11:59 BP 102/59 L 12/29/20 11:59 Pulse Ox 95 12/29/20 11:59 Oxygen Flow Rate 1 12/23/20 09:17 Body Mass Index 32.2 General resting comfortably in no acute distress. Neck supple no JVD. CVS regular rate rhythm, Respiratory lungs clear to auscultation, no respiratory distress, no wheeze, no rhonchi. Gastrointestinal abdomen soft, nontender, bowel sounds audible, no guarding , no rigidity. Extremities Rt Bka,left foot dressing in place no drainge. Neuro nonfocal , speech clear. Skin no rash Objective Data Current Medications Generic Name Dose Route Start Last Admin Trade Name Freq PRN Reason Stop Dose Admin Acetaminophen 650 mg 12/23/20 09:17 Acetaminophen 325 Mg Tablet PO ONCE PRN Pain, Mild (Pain Scale 1-3) Acetaminophen 650 mg 12/23/20 11:10 Acetaminophen 325 Mg Tablet PO Q6H PRN Pain, Mild (Pain Scale 1-3) Albuterol/Ipratropium 3 ml 12/27/20 02:12 Albuterol/Iprat 2.5/0.5mg 3 Ml Ampul.Neb INHALE RQ4H PRN Shortness of Breath/Wheezing Aspirin 81 mg 12/26/20 14:30 12/29/20 07:50 Aspirin Enteric Coated 81 Mg Tablet. PO 81 mg DAILY TJ Administration Docusate Sodium 100 mg 12/28/20 21:00 12/29/20 07:50 Docusate Sodium 100 Mg Capsule PO 100 mg BID TJ Administration Gabapentin 600 mg 12/24/20 09:00 12/29/20 07:50 Gabapentin 600 Mg Tablet PO 600 mg DAILY TJ Administration Heparin Sodium (Porcine) 5,000 unit 12/23/20 12:00 12/29/20 11:29 Heparin Sodium,Porcine 5,000 Unit/Ml Vial SUBCUT 5,000 unit Q8H [facility] Administration Piperacillin Sod/Tazobactam 50 mls @ 100 mls/hr 12/26/20 13:45 12/29/20 14:24 Sod 3.375 gm/ Sodium Chloride IV Infused Q6H [facility] Infusion Daptomycin 500 mg/ Sodium 60 mls @ 100 mls/hr 12/26/20 15:00 12/28/20 15:31 Chloride IV Infused Q24H [facility] Infusion Sodium Chloride 1,000 mls @ 80 mls/hr 12/30/20 09:00 Ns IVCONT .[id number] [facility] Insulin Glargine 35 unit 12/23/20 21:00 12/28/20 20:36 Insulin Glargine,Hum.Rec.Anlog 100 Unit/Ml 10 Ml Vial SUBCUT 35 unit BEDTIME TJ Administration Insulin Glargine 56 unit 12/24/20 09:00 12/29/20 07:50 Insulin Glargine,Hum.Rec.Anlog 100 Unit/Ml 10 Ml Vial SUBCUT 56 unit DAILY [facility] Administration Insulin Human Lispro 0 unit 12/28/20 16:30 12/29/20 11:29 Insulin Lispro 100 Unit/Ml 3 Ml Vial SUBCUT 6 unit QIDACHS [facility] Administration Protocol Lisinopril 5 mg 12/23/20 21:00 12/26/20 08:02 Lisinopril 5 Mg Tablet PO 5 mg DAILY [facility] Administration Protocol Ondansetron HCl 4 mg 12/23/20 09:17 Ondansetron Hcl 4 Mg/2 Ml Vial IVPUSH ONCE PRN Nausea and Vomiting Oxycodone HCl 7.5 mg 12/28/20 10:09 12/29/20 07:51 Oxycodone Hcl Immed Release 5 Mg Tablet PO 7.5 mg Q4H PRN Administration Pain, Moderate (Pain Scale 4-6 Pharmacy Consult 1 each 12/23/20 13:54 Consult Rx Perform Med Rec MISCELLANE ONCE PRN Consult order Sodium Chloride 3 ml 12/23/20 16:00 12/29/20 14:18 0.9 % Sodium Chloride Flush 3 Ml Syringe IVFLUSH Not Given QSHIFT [facility] Labs CBC & Chem 7: 12/27/20 05:47 12/27/20 05:47 Assessment and Plan (1) Diabetic foot infection: Problem details: He is on antibiotics,day 2 He is being followed by Dr Figueroa of Vascular Status: Acute (2) PVD (peripheral vascular disease): Status: Acute (3) Status post below-knee amputation: Status: Acute (4) MGUS (monoclonal gammopathy of unknown significance): Status: Acute (5) Drug-induced thrombocytopenia: Status: Acute (6) Hyperlipidemia: Status: Acute (7) Hypertension: Status: Acute Assessment and Plan: 60 yo diabetic with multiple medical issues who is admitted post-operatively from a amp of the L 1st toe and subsequently admitted due to surrounding cellulitis and concerning over deeper infection. 1. LLE diabetic foot infection, nonhealing left great toe amputation site No fevers, WBC normalized, blood cultures x2 negative, continue zosyn/dapto - day #4, cont. oxycodone to 7.5 mg Q4h prn, patient is scheduled for angiogram on Wednesday by Dr. Figueroa 2. DM Blood sugars elevated, recommend diabetic diet continue Lantus bid on tresiba at home, added insulin sliding scale, will adjust dose. Metformin on hold. 3. BP Blood pressure is stable lisinopril on hold for possibility of further contrast studies 4. PAD continue aspirin, statin on hold due to severe interaction warning with IV daptomcyin 5. DM neuropathy Continue gabapentin 6. Constipation cont. stool softeners likely due to narcotic,will give lactulose. Full Code DVT pptx, heparin
[2020-12-29] MEDS: DAPTOmycin 500 MG in 0.9 % Sodium Chloride 50 ML 100 MG IV (15:20)
[2020-12-29 16:31] LABS: Glucose, Whole Blood 265 mg/dL (60-115)
[2020-12-29 20:45] LABS: Glucose, Whole Blood 219 mg/dL (60-115)
[2020-12-29] MEDS: Insulin Glargine,Hum.rec.anlog 100 UNIT/ML 10 ML VIAL 35 UNIT SUBCUT (21:02)
[2020-12-30] VITALS (16 sets, daily range): BP systolic 100–139; BP diastolic 56–76; PULSE 70–95; RESP 16–24; TEMP 36.2–37.4; O2SAT 94–98
[2020-12-30] MEDS: Piperacillin Sodium/Tazobactam 3.375 GM in 0.9 % Sodium Chloride 50 ML IV ×4 (01:57→20:47)
[2020-12-30] MEDS: Heparin Sodium,Porcine 5,000 UNIT/ML VIAL 5000 UNIT SUBCUT ×2 (04:09→20:46)
[2020-12-30 07:43] LABS: Glucose, Whole Blood 151 mg/dL (60-115)
[2020-12-30] MEDS: 0.9 % Sodium Chloride Flush 3 ML SYRINGE IVFLUSH ×2 (07:48→17:33)
[2020-12-30] MEDS: 0.9 % Sodium Chloride 1,000 ML 80 ML IVCONT (07:50)
[2020-12-30] MEDS: Insulin Lispro 100 UNIT/ML 3 ML VIAL SUBCUT ×2 (07:50→20:46)
[2020-12-30] MEDS: Gabapentin 600 MG TABLET PO (07:53)
[2020-12-30 11:32] LABS: Glucose, Whole Blood 135 mg/dL (60-115)
--- NOTE | 2020-12-30 12:38 | MHC.CM.PN ---
EMR REVIEWED, PER MULTIDISCIPLINARY ROUNDS ANGIO TODAY, PT CURRENTLY OFF UNIT FOR PROCEDURE, POSSIBLE NEED FOR BKA,, NO PLAN FOR D/C TODAY. CM WILL CONT TO FOLLOW. D/C PLAN: HOME W/[facility] OF [facility] AND [facility], [facility] FOR TRANSPORT
--- NOTE | 2020-12-30 13:18 | PC.NURSE ---
Pt transported [facility] Upon arrival IV noticed to be as dated 12/24/20. Iv flushed easily, no S&S of infection noted to IV site. This Rn attempted new Iv access x3 and was unsuccessful. IR RN notified of above.
--- NOTE | 2020-12-30 15:24 | W.PM.OPN ---
Operative Note Operative Note Date of Service: 12/30/20 Narrative: Angiogram report from [facility] Preoperative diagnosis: Atherosclerosis of left lower extremity with nonhealing ulcer Postoperative diagnosis: Same Procedure: 1. Ultrasound-guided right common femoral access 2. Aortogram with left lower extremity runoff 3. StarClose closure device placement Surgeon:Cameron Figueroa M.D. Model And Mold Maker:None Anesthesia: Local with moderate conscious sedation for a total of 52 minutes, performed by ca Specimens:none Drains:none Estimated blood loss: Less than 10 ml Indications: 60-year-old gentleman who who is a known diabetic has had a great toe amputation. The remains nonhealing. He now presents for endovascular intervention of left lower extremity The patient has signed the informed consent after reviewing risks, complications, benefits, and alternatives previously discussed with the patient in my office. The patient was given the opportunity to ask any additional questions or voice any concerns. All questions were answered to the patient's satisfaction. Procedure in detail: Patient was brought to the angiography suite prior to which a time-out was called for patient identification and site verification. Bilateral groins were prepped and draped in the standard surgical fashion. Under ultrasound guidance right common femoral was punctured with micro puncture needle and wire. Subsequently a precision 4 Chinese sheath was then placed. Leanplum wire was advanced to the level of the aorta. 4 Chinese Flush catheter was brought up and parked at the level of the renal arteries. Aortogram was then undertaken. Catheter was brought down to the level of the iliac bifurcation. Iliacs were subsequently imaged. Catheter was then brought in up and over to the left side SFA. Runoff study was then undertaken. We advanced a trail Blazer catheter all the way down to the below-knee popliteal in to the tibioperoneal trunk. Below-knee study was undertaken through this catheter. No intervention was indicated. Catheter wire and sheath were pulled. Direct pressure was held for 10 minutes patient tolerated the procedure well. Interpretation of films: 1. Ultrasound demonstrates appropriate femoral puncture. Image of which was saved. 2. Aortogram demonstrates appropriate caliber aorta. Minimal disease. Appropriate take-off of the renals. 3. Iliac images demonstrate normal caliber iliacs no significant disease sharp angulation of the iliac bifurcation 4. Left lower extremity study demonstrated good flow through the common femoral and profundus femorals all the way down through the SFA. SFA had no significant disease. Popliteal all segments of the popliteal were within normal limits. Below-knee anterior tibial was the dominant vessel that ran all the way down to the level of the ankle and did provide some collateral flow to the foot. Peroneal had normal flow in the proximal quarter and then it appears to be more collateral flow. Posterior tibial occluded immediately. Conclusion: 1. Successful diagnostic angiogram. In essence patient has 1 vessel runoff. Will have a discussion with patient tomorrow regarding possible further amputation depending on the healing of the amputation of the great toe site. This note is constructed using voice recognition software. While every effort has been made to ensure accuracy, salesperson men's and boys' clothing errors may have been included. Thank you for allowing me to participate in the care of your patient. Yours sincerely, Cameron Figueroa MD, FACS, R.P.V.I.
--- NOTE | 2020-12-30 16:09 | P.PNIM_ITS ---
Subjective Subjective Date of Service: 12/30/20 Interval History: leg pain controlled c/o ongoing severe constipation to OR today for angiogram Physical Exam Vital Signs: Vital Signs: Last Vital Signs Temp 97.1 F 12/30/20 15:15 Pulse 84 12/30/20 16:00 Resp 18 12/30/20 16:00 BP 114/60 12/30/20 16:00 Pulse Ox 95 12/30/20 16:00 Oxygen Flow Rate 1 12/23/20 09:17 Body Mass Index 32.2 Gen: in no acute distress HEENT: sclera anicteric, moist mucus membranes Neck: supple Lungs: clear to auscultation bilaterally Heart: regular rate and rhythm, no murmurs Abd: soft, non-tender, non-distended Ext: s/p R BKA, L foot in dry ressing Skin: warm/well-perfused Neuro: alert and oriented x3, no focal findings Psych: appropriate affect Objective Data Current Medications Generic Name Dose Route Start Last Admin Trade Name Freq PRN Reason Stop Dose Admin Acetaminophen 650 mg 12/23/20 09:17 Acetaminophen 325 Mg Tablet PO ONCE PRN Pain, Mild (Pain Scale 1-3) Acetaminophen 650 mg 12/23/20 11:10 Acetaminophen 325 Mg Tablet PO Q6H PRN Pain, Mild (Pain Scale 1-3) Acetaminophen 650 mg 12/30/20 15:30 Acetaminophen 325 Mg Tablet PO Q6H PRN Pain, Mild (Pain Scale 1-3) Albuterol/Ipratropium 3 ml 12/27/20 02:12 Albuterol/Iprat 2.5/0.5mg 3 Ml Ampul.Neb INHALE RQ4H PRN Shortness of Breath/Wheezing Aspirin 81 mg 12/26/20 14:30 12/30/20 07:53 Aspirin Enteric Coated 81 Mg Tablet.Dr PO Not Given DAILY TJ Docusate Sodium 100 mg 12/28/20 21:00 12/30/20 07:53 Docusate Sodium 100 Mg Capsule PO Not Given BID TJ Gabapentin 600 mg 12/24/20 09:00 12/30/20 07:53 Gabapentin 600 Mg Tablet PO 600 mg DAILY TJ Administration Heparin Sodium (Porcine) 5,000 unit 12/23/20 12:00 12/30/20 07:56 Heparin Sodium,Porcine 5,000 Unit/Ml Vial SUBCUT Not Given Q8H TJ Piperacillin Sod/Tazobactam 50 mls @ 100 mls/hr 12/26/20 13:45 12/30/20 08:31 Sod 3.375 gm/ Sodium Chloride IV Infused Q6H [facility] Infusion Daptomycin 500 mg/ Sodium 60 mls @ 100 mls/hr 12/26/20 15:00 12/29/20 15:57 Chloride IV Infused Q24H TJ Infusion Sodium Chloride 1,000 mls @ 80 mls/hr 12/30/20 09:00 12/30/20 07:50 Ns IVCONT 80 mls/hr .[id number] [facility] Administration Sodium Chloride 1,000 mls @ 100 mls/hr 12/30/20 15:30 Ns IVCONT .Q10H [facility] Insulin Glargine 35 unit 12/23/20 21:00 12/29/20 21:02 Insulin Glargine,Hum.Rec.Anlog 100 Unit/Ml 10 Ml Vial SUBCUT 35 unit BEDTIME [facility] Administration Insulin Glargine 60 unit 12/31/20 09:00 Insulin Glargine,Hum.Rec.Anlog 100 Unit/Ml 10 Ml Vial SUBCUT DAILY [facility] Insulin Human Lispro 0 unit 12/28/20 16:30 12/30/20 12:32 Insulin Lispro 100 Unit/Ml 3 Ml Vial SUBCUT Not Given QIDACHS [facility] Protocol Lisinopril 5 mg 12/23/20 21:00 12/26/20 08:02 Lisinopril 5 Mg Tablet PO 5 mg DAILY [facility] Administration Protocol Magnesium Hydroxide 30 ml 12/30/20 10:11 Milk Of Magnesia 30 Ml Oral.Susp PO TID PRN Constipation Morphine Sulfate 4 mg 12/30/20 15:30 Morphine Sulfate 4 Mg/Ml Cartridge IVPUSH Q2H PRN Pain, Severe (Pain Scale 7-10) Ondansetron HCl 4 mg 12/23/20 09:17 Ondansetron Hcl 4 Mg/2 Ml Vial IVPUSH ONCE PRN Nausea and Vomiting Oxycodone HCl 7.5 mg 12/28/20 10:09 12/29/20 07:51 Oxycodone Hcl Immed Release 5 Mg Tablet PO 7.5 mg Q4H PRN Administration Pain, Moderate (Pain Scale 4-6 Pharmacy Consult 1 each 12/23/20 13:54 Consult Rx Perform Med Rec MISCELLANE ONCE PRN Consult order Polyethylene Glycol 17 gm 12/30/20 10:15 Polyethylene Glycol 3350 17 Gm Powd.Pack PO DAILY [facility] Sodium Chloride 3 ml 12/23/20 16:00 12/30/20 07:48 0.9 % Sodium Chloride Flush 3 Ml Syringe IVFLUSH 3 ml QSHIFT TJ Administration Labs CBC & Chem 7: 12/27/20 05:47 12/27/20 05:47 Labs: Laboratory Results - last 24 hr 12/29/20 12/29/20 12/30/20 16:27 20:35 07:18 POC Glucose 265 H 219 H 151 H 12/30/20 11:24 POC Glucose 135 H Assessment and Plan (1) Diabetic foot infection: Problem details: He is on antibiotics,day 2 He is being followed by Dr Figueroa of Vascular Status: Acute (2) PVD (peripheral vascular disease): Status: Acute (3) Status post below-knee amputation: Status: Acute (4) MGUS (monoclonal gammopathy of unknown significance): Status: Acute (5) Drug-induced thrombocytopenia: Status: Acute (6) Hyperlipidemia: Status: Acute (7) Hypertension: Status: Acute Assessment and Plan: hospital d#8 60yo M with DM2 admitted after L great toe amputation for concern of nonhealing site on vascular surgery service, medicine consulting for management of comorbid iss ues # L diabetic foot infection, nonhealing great toe amputation site - no fever, WBC normalized, BCx x2 negative, continue pip/malik + daptomycin d#5, ID following, angiogram today # DM2, A1c 7.1 (12/26/20) - increase Lantus/Humalog; held MTF for angiogram # HTN - lisinopril held for now for contrast studies # PAD - continue ASA; statin on hold due to interaction with daptomycin # DM neuropathy - continue gabapentin # constipation - likely due to narcotic use. continue lactulose, add MOM + Miralax # VTE ppx - UFH # dispo - will need SNF for wound care + PT
[2020-12-30 17:30] LABS: Glucose, Whole Blood 118 mg/dL (60-115)
[2020-12-30] MEDS: DAPTOmycin 500 MG in 0.9 % Sodium Chloride 50 ML 100 MG IV (17:30)
[2020-12-30 20:41] LABS: Glucose, Whole Blood 199 mg/dL (60-115)
[2020-12-30] MEDS: Insulin Glargine,Hum.rec.anlog 100 UNIT/ML 10 ML VIAL 35 UNIT SUBCUT (20:46)
[2020-12-30] MEDS: Docusate Sodium 100 MG CAPSULE PO (20:46)
[2020-12-30] MEDS: 0.9 % Sodium Chloride 1,000 ML 100 ML IVCONT (20:53)
[2020-12-31] MEDS: Piperacillin Sodium/Tazobactam 3.375 GM in 0.9 % Sodium Chloride 50 ML IV ×4 (01:25→20:14)
[2020-12-31 04:00] VITALS: BP 117/75; PULSE 79; RESP 20; TEMP 36.8; O2SAT 93
[2020-12-31] MEDS: Heparin Sodium,Porcine 5,000 UNIT/ML VIAL 5000 UNIT SUBCUT ×3 (04:12→20:14)
[2020-12-31] MEDS: Milk of Magnesia 30 ML ORAL.SUSP PO (04:22)
[2020-12-31] MEDS: 0.9 % Sodium Chloride 1,000 ML 100 ML IVCONT ×2 (06:30→16:31)
[2020-12-31 06:42] LABS: Hematocrit 34.4 % (42-52); Hemoglobin 11.1 g/dl (14.0-18.0); Mean Corpuscular HGB Conc 32.3 g/dl (31.0-36.0); Mean Corpuscular Hemoglobin 29.9 pg (27.0-33.0); Mean Corpuscular Volume 92.7 fL (80-98); Mean Platelet Volume 10.4 fL (9.4-12.4); Platelet Count 268 X10*3/uL (160-400); Red Blood Count 3.71 X10*6/uL (4.60-5.80); Red Cell Distribution Width 12.1 % (11.0-16.0); White Blood Count 8.1 X10*3/uL (4.8-10.8)
[2020-12-31 06:57] LABS: Anion Gap 16 (12-20); Blood Urea Nitrogen 23 mg/dL (9-16); Calcium 8.9 mg/dL (8.4-10.2); Carbon Dioxide 23 mmol/L (22-29); Chloride 101 mmol/L (96-108); Creatinine Clr Calc Pharmacy 111.9; Estimated Glomerular Filt Rate > 60; Glucose Random 166 mg/dL (60-115); Potassium 4.5 mmol/L (3.3-5.1); Sodium 135 mmol/L (135-145)
[2020-12-31 07:17] VITALS: BP 120/62; PULSE 69; RESP 18; TEMP 36.1; O2SAT 98
[2020-12-31 07:22] LABS: Glucose, Whole Blood 151 mg/dL (60-115)
[2020-12-31] MEDS: Insulin Lispro 100 UNIT/ML 3 ML VIAL SUBCUT ×4 (07:33→20:24)
[2020-12-31] MEDS: Gabapentin 600 MG TABLET PO (07:33)
[2020-12-31] MEDS: Aspirin Enteric Coated 81 MG TABLET.DR PO (07:33)
[2020-12-31] MEDS: Insulin Glargine,Hum.rec.anlog 100 UNIT/ML 10 ML VIAL 60 UNIT SUBCUT (07:34)
[2020-12-31 11:26] VITALS: BP 120/68; PULSE 84; RESP 18; TEMP 36.7; O2SAT 98
[2020-12-31 11:27] LABS: Glucose, Whole Blood 236 mg/dL (60-115)
--- NOTE | 2020-12-31 11:38 | HO.VASCPN ---
Subjective Subjective Date of Service: 12/31/20 Patient reports: no new complaints and feels better Interval history: Patient seen examined. No events overnight. Doing well status post angiogram. Now for routine follow-up with dressing change. Physical Exam Vital Signs: Vital Signs: Last Vital Signs Temp 98.1 F 12/31/20 11:26 Pulse 84 12/31/20 11:26 Resp 18 12/31/20 11:26 BP 120/68 12/31/20 11:26 Pulse Ox 98 12/31/20 11:26 Oxygen Flow Rate 1 12/23/20 09:17 Body Mass Index 32.2 Const: General: cooperative, healthy appearing and no acute distress Orientation/consciousness: oriented to person, oriented to place and oriented to time HENMT: Head: Yes normal to inspection Neck: Carotids: no bruits Chest: Chest palpation & inspection: normal inspection of the chest Resp: Effort & Inspection: normal respiratory effort and able to speak in complete sentences Auscultation: clear to auscultation bilaterally Cardio: Rate: regular rate Heart sounds: S1 normal heart sound present and S2 normal heart sound present GI: Inspection: Yes normal to inspection Skin: General skin exam: no rashes or lesions noted Wounds: amputation site (Left great toe amp site nonhealing, cellulitis decreased) Neuro: General: oriented to person, oriented to place, oriented to time and CN's II-XI intact bilaterally Extrem: General: Yes normal to inspection, Yes full ROM and Yes no clubbing, cyanosis or edema Psych: Appearance: grossly normal and well kempt Speech and movement: Normal speech and movement present Affect: normal affect Progress Note: A&P Assessment and plan (1) PVD (peripheral vascular disease): Status: Acute Assessment and Plan: In short patient has a nonhealing amputation site. Angiogram demonstrated 1 vessel runoff which is tenuous at best. No bypassable vessel. I had a abdoul discussion with him. He will require a trans met even possibly an above knee amputation. I cannot guarantee that a trans met will heal as it is a similar situation as the other leg where he ended up a BKA. He is quite concerned about the entire situation as he lives alone. He is concerned about his mobility. I have discussed potential operations and now comes with him inclusive of rehab and prosthetic fitting in usage. He would like to have a day to think about his potential options. Will continue with IV antibiotics. Will revisit the topic with him tomorrow. Thank you for allowing us to assist in his care. If there are any questions or concerns please do not hesitate to contact us. Fall Risk Details Current Medications: Current Medications Generic Name Dose Route Start Last Admin Trade Name Bladimir PRN Reason Stop Dose Admin Acetaminophen 650 mg 12/23/20 09:17 Acetaminophen 325 Mg Tablet PO ONCE PRN Pain, Mild (Pain Scale 1-3) Acetaminophen 650 mg 12/23/20 11:10 Acetaminophen 325 Mg Tablet PO Q6H PRN Pain, Mild (Pain Scale 1-3) Acetaminophen 650 mg 12/30/20 15:30 Acetaminophen 325 Mg Tablet PO Q6H PRN Pain, Mild (Pain Scale 1-3) Albuterol/Ipratropium 3 ml 12/27/20 02:12 Albuterol/Iprat 2.5/0.5mg 3 Ml Ampul.Neb INHALE RQ4H PRN Shortness of Breath/Wheezing Aspirin 81 mg 12/26/20 14:30 12/31/20 07:33 Aspirin Enteric Coated 81 Mg Tablet. PO 81 mg DAILY TJ Administration Docusate Sodium 100 mg 12/28/20 21:00 12/31/20 07:38 Docusate Sodium 100 Mg Capsule PO Not Given BID TJ Gabapentin 600 mg 12/24/20 09:00 12/31/20 07:33 Gabapentin 600 Mg Tablet PO 600 mg DAILY TJ Administration Heparin Sodium (Porcine) 5,000 unit 12/23/20 12:00 12/31/20 04:12 Heparin Sodium,Porcine 5,000 Unit/Ml Vial SUBCUT 5,000 unit Q8H TJ Administration Piperacillin Sod/Tazobactam 50 mls @ 100 mls/hr 12/26/20 13:45 12/31/20 08:55 Sod 3.375 gm/ Sodium Chloride IV Infused Q6H TJ Infusion Daptomycin 500 mg/ Sodium 60 mls @ 100 mls/hr 12/26/20 15:00 12/30/20 18:12 Chloride IV Infused Q24H TJ Infusion Sodium Chloride 1,000 mls @ 100 mls/hr 12/30/20 15:30 12/31/20 06:30 Ns IVCONT 100 mls/hr .Q10H TJ Administration Insulin Glargine 35 unit 12/23/20 21:00 12/30/20 20:46 Insulin Glargine,Hum.Rec.Anlog 100 Unit/Ml 10 Ml Vial SUBCUT 35 unit BEDTIME TJ Administration Insulin Glargine 60 unit 12/31/20 09:00 12/31/20 07:34 Insulin Glargine,Hum.Rec.Anlog 100 Unit/Ml 10 Ml Vial SUBCUT 60 unit DAILY TJ Administration Insulin Human Lispro 0 unit 12/28/20 16:30 12/31/20 07:33 Insulin Lispro 100 Unit/Ml 3 Ml Vial SUBCUT 2 unit QIDACHS [facility] Administration Protocol Lisinopril 5 mg 12/23/20 21:00 12/26/20 08:02 Lisinopril 5 Mg Tablet PO 5 mg DAILY [facility] Administration Protocol Magnesium Hydroxide 30 ml 12/30/20 10:11 12/31/20 04:22 Milk Of Magnesia 30 Ml Oral.Susp PO 30 ml TID PRN Administration Constipation Morphine Sulfate 4 mg 12/30/20 15:30 Morphine Sulfate 4 Mg/Ml Cartridge IVPUSH Q2H PRN Pain, Severe (Pain Scale 7-10) Ondansetron HCl 4 mg 12/23/20 09:17 Ondansetron Hcl 4 Mg/2 Ml Vial IVPUSH ONCE PRN Nausea and Vomiting Oxycodone HCl 7.5 mg 12/28/20 10:09 12/29/20 07:51 Oxycodone Hcl Immed Release 5 Mg Tablet PO 7.5 mg Q4H PRN Administration Pain, Moderate (Pain Scale 4-6 Pharmacy Consult 1 each 12/23/20 13:54 Consult Rx Perform Med Rec MISCELLANE ONCE PRN Consult order Polyethylene Glycol 17 gm 12/30/20 10:15 12/31/20 07:38 Polyethylene Glycol 3350 17 Gm Powd.Pack PO Not Given DAILY TJ Sodium Biphosphate/Sodium Phosphate 133 ml 12/31/20 10:43 Sodium Phosphate,[place]-Dibasic 133 Ml Enema ME ONCE PRN constipation Sodium Chloride 3 ml 12/23/20 16:00 12/31/20 07:38 0.9 % Sodium Chloride Flush 3 Ml Syringe IVFLUSH Not Given QSHIFT [facility] Time Spent With Patient Time: Total time spent is greater than 50% in coordination of care (as documented) at patient's floor/unit and/or counseling patient: Time with patient: 15 - 24 minutes
[2020-12-31] MEDS: Lidocaine HCl 1 % MPF 5 ML VIAL SUBCUT (11:49)
--- NOTE | 2020-12-31 12:22 | P.PNIM_ITS ---
Subjective Subjective Date of Service: 12/31/20 Interval History: redness on top of L foot improved no fever has been advised that he will likely require a TMTA or even a BKA, which would radically alter his quality of life still no BM despite lactulose, MOM, MiraLax Physical Exam Vital Signs: Vital Signs: Last Vital Signs Temp 98.1 F 12/31/20 11:26 Pulse 84 12/31/20 11:26 Resp 18 12/31/20 11:26 BP 120/68 12/31/20 11:26 Pulse Ox 98 12/31/20 11:26 Oxygen Flow Rate 1 12/23/20 09:17 Body Mass Index 32.2 Gen: in no acute distress HEENT: sclera anicteric, moist mucus membranes Neck: supple Lungs: clear to auscultation bilaterally Heart: regular rate and rhythm, no murmurs Abd: soft, non-tender, non-distended Ext: s/p R BKA, L foot in dry ressing Skin: warm/well-perfused Neuro: alert and oriented x3, no focal findings Psych: appropriate affect Objective Data Current Medications Generic Name Dose Route Start Last Admin Trade Name Freq PRN Reason Stop Dose Admin Acetaminophen 650 mg 12/23/20 09:17 Acetaminophen 325 Mg Tablet PO ONCE PRN Pain, Mild (Pain Scale 1-3) Acetaminophen 650 mg 12/23/20 11:10 Acetaminophen 325 Mg Tablet PO Q6H PRN Pain, Mild (Pain Scale 1-3) Acetaminophen 650 mg 12/30/20 15:30 Acetaminophen 325 Mg Tablet PO Q6H PRN Pain, Mild (Pain Scale 1-3) Albuterol/Ipratropium 3 ml 12/27/20 02:12 Albuterol/Iprat 2.5/0.5mg 3 Ml Ampul.Neb INHALE RQ4H PRN Shortness of Breath/Wheezing Aspirin 81 mg 12/26/20 14:30 12/31/20 07:33 Aspirin Enteric Coated 81 Mg Tablet. PO 81 mg DAILY TJ Administration Docusate Sodium 100 mg 12/28/20 21:00 12/31/20 07:38 Docusate Sodium 100 Mg Capsule PO Not Given BID TJ Gabapentin 600 mg 12/24/20 09:00 12/31/20 07:33 Gabapentin 600 Mg Tablet PO 600 mg DAILY TJ Administration Heparin Sodium (Porcine) 5,000 unit 12/23/20 12:00 12/31/20 11:46 Heparin Sodium,Porcine 5,000 Unit/Ml Vial SUBCUT 5,000 unit Q8H TJ Administration Piperacillin Sod/Tazobactam 50 mls @ 100 mls/hr 12/26/20 13:45 12/31/20 08:55 Sod 3.375 gm/ Sodium Chloride IV Infused Q6H TJ Infusion Daptomycin 500 mg/ Sodium 60 mls @ 100 mls/hr 12/26/20 15:00 12/30/20 18:12 Chloride IV Infused Q24H TJ Infusion Sodium Chloride 1,000 mls @ 100 mls/hr 12/30/20 15:30 12/31/20 06:30 Ns IVCONT 100 mls/hr .Q10H TJ Administration Insulin Glargine 35 unit 12/23/20 21:00 12/30/20 20:46 Insulin Glargine,Hum.Rec.Anlog 100 Unit/Ml 10 Ml Vial SUBCUT 35 unit BEDTIME TJ Administration Insulin Glargine 60 unit 12/31/20 09:00 12/31/20 07:34 Insulin Glargine,Hum.Rec.Anlog 100 Unit/Ml 10 Ml Vial SUBCUT 60 unit DAILY [facility] Administration Insulin Human Lispro 0 unit 12/28/20 16:30 12/31/20 11:47 Insulin Lispro 100 Unit/Ml 3 Ml Vial SUBCUT 6 unit QIDACHS [facility] Administration Protocol Lisinopril 5 mg 12/23/20 21:00 12/26/20 08:02 Lisinopril 5 Mg Tablet PO 5 mg DAILY [facility] Administration Protocol Magnesium Hydroxide 30 ml 12/30/20 10:11 12/31/20 04:22 Milk Of Magnesia 30 Ml Oral.Susp PO 30 ml TID PRN Administration Constipation Morphine Sulfate 4 mg 12/30/20 15:30 Morphine Sulfate 4 Mg/Ml Cartridge IVPUSH Q2H PRN Pain, Severe (Pain Scale 7-10) Ondansetron HCl 4 mg 12/23/20 09:17 Ondansetron Hcl 4 Mg/2 Ml Vial IVPUSH ONCE PRN Nausea and Vomiting Oxycodone HCl 7.5 mg 12/28/20 10:09 12/29/20 07:51 Oxycodone Hcl Immed Release 5 Mg Tablet PO 7.5 mg Q4H PRN Administration Pain, Moderate (Pain Scale 4-6 Pharmacy Consult 1 each 12/23/20 13:54 Consult Rx Perform Med Rec MISCELLANE ONCE PRN Consult order Polyethylene Glycol 17 gm 12/30/20 10:15 12/31/20 07:38 Polyethylene Glycol 3350 17 Gm Powd.Pack PO Not Given DAILY [facility] Sodium Biphosphate/Sodium Phosphate 133 ml 12/31/20 10:43 Sodium Phosphate,[place]-Dibasic 133 Ml Enema DC ONCE PRN constipation Sodium Chloride 3 ml 12/23/20 16:00 12/31/20 07:38 0.9 % Sodium Chloride Flush 3 Ml Syringe IVFLUSH Not Given QSHIFT [facility] Labs CBC & Chem 7: 12/31/20 06:06 12/31/20 06:06 Labs: Laboratory Results - last 24 hr 12/30/20 12/30/20 12/31/20 17:25 20:23 06:06 WBC 8.1 RBC 3.71 L Hgb 11.1 L Hct 34.4 L MCV 92.7 MCH 29.9 MCHC 32.3 RDW 12.1 Plt Count 268 MPV 10.4 Absolute Nucleated RBC 0.000 Nucleated RBC % (auto) 0.0 Sodium Potassium Chloride Carbon Dioxide Anion Gap BUN Creatinine Estim Creat Clear Calc Estimated GFR POC Glucose 118 H 199 H Random Glucose Calcium 12/31/20 12/31/20 12/31/20 06:06 07:19 11:21 WBC RBC Hgb Hct MCV MCH MCHC RDW Plt Count MPV Absolute Nucleated RBC Nucleated RBC % (auto) Sodium 135 Potassium 4.5 Chloride 101 Carbon Dioxide 23 Anion Gap 16 BUN 23 H Creatinine 0.93 Estim Creat Clear Calc 111.9 Estimated GFR > 60 POC Glucose 151 H 236 H Random Glucose 166 H Calcium 8.9 Assessment and Plan (1) Diabetic foot infection: Status: Acute (2) PVD (peripheral vascular disease): Status: Acute (3) Status post below-knee amputation: Status: Acute (4) MGUS (monoclonal gammopathy of unknown significance): Status: Acute (5) Drug-induced thrombocytopenia: Status: Acute (6) Hyperlipidemia: Status: Acute (7) Hypertension: Status: Acute Assessment and Plan: hospital d#9 60yo M with DM2 admitted after L great toe amputation for concern of nonhealing site on vascular surgery service, medicine consulting for management of comorbid issues # L diabetic foot infection, nonhealing great toe amputation site - no fever, WBC normalized, BCx x2 negative, continue pip/malik + daptomycin d#6, ID following, angiogram done yesterday showed 1-vessel runoff with no bypassable vessel. requires TMTA vs BKA- considering his options and will revisit with surgeon tomorrow # DM2, A1c 7.1 (12/26/20) - increased Lantus/Humalog and glycemic control is good now; held MTF for angiogram # HTN - lisinopril held for contrast studies # PAD - continue ASA; statin on hold due to interaction with daptomycin # DM neuropathy - continue gabapentin # constipation - likely due to narcotic use. continue lactulose, add MOM + Miralax. add enema # VTE ppx - UFH # dispo - will need SNF for wound care + PT
[2020-12-31] MEDS: DAPTOmycin 500 MG in 0.9 % Sodium Chloride 50 ML 100 MG IV (14:37)
[2020-12-31 15:40] VITALS: BP 141/71; PULSE 69; RESP 16; TEMP 36.7; O2SAT 97
[2020-12-31 16:09] LABS: Glucose, Whole Blood 288 mg/dL (60-115)
--- NOTE | 2020-12-31 16:47 | PC.NURSE ---
Enema administered to patient as ordered with result of large brown BM. pt states relief .
[2020-12-31 20:00] VITALS: BP 130/72; PULSE 66; RESP 18; TEMP 36.4; O2SAT 99
[2020-12-31 20:08] LABS: Glucose, Whole Blood 229 mg/dL (60-115)
[2020-12-31] MEDS: Docusate Sodium 100 MG CAPSULE PO (20:14)
[2020-12-31] MEDS: Insulin Glargine,Hum.rec.anlog 100 UNIT/ML 10 ML VIAL 35 UNIT SUBCUT (20:24)
[2021-01-01] VITALS (9 sets, daily range): BP systolic 104–152; BP diastolic 57–80; PULSE 63–76; RESP 18–20; TEMP 36.3–37.2; O2SAT 94–98
[2021-01-01] MEDS: Piperacillin Sodium/Tazobactam 3.375 GM in 0.9 % Sodium Chloride 50 ML IV ×4 (00:56→19:54)
[2021-01-01] MEDS: 0.9 % Sodium Chloride 1,000 ML 100 ML IVCONT ×2 (03:11→17:58)
[2021-01-01] MEDS: Heparin Sodium,Porcine 5,000 UNIT/ML VIAL 5000 UNIT SUBCUT ×3 (03:26→19:55)
[2021-01-01] MEDS: Insulin Glargine,Hum.rec.anlog 100 UNIT/ML 10 ML VIAL 60 UNIT SUBCUT (07:53)
[2021-01-01] MEDS: Gabapentin 600 MG TABLET PO (07:53)
[2021-01-01] MEDS: Aspirin Enteric Coated 81 MG TABLET.DR PO (07:53)
[2021-01-01 08:00] LABS: Glucose, Whole Blood 120 mg/dL (60-115)
--- NOTE | 2021-01-01 09:38 | HO.VASCPN ---
Subjective Subjective Date of Service: 01/01/21 Patient reports: no new complaints and feels better Interval history: Patient seen examined. No interval issues. Patient did have an opportunity to think about discussion last night. He is now for routine follow-up. Physical Exam Vital Signs: Vital Signs: Last Vital Signs Temp 98.9 F 01/01/21 08:00 Pulse 75 01/01/21 08:00 Resp 20 01/01/21 08:00 BP 116/62 01/01/21 08:00 Pulse Ox 97 01/01/21 09:00 Oxygen Flow Rate 1 12/23/20 09:17 Body Mass Index 32.2 Const: General: cooperative, healthy appearing and no acute distress Orientation/consciousness: oriented to person, oriented to place and oriented to time HENMT: Head: Yes normal to inspection Neck: Carotids: no bruits Chest: Chest palpation & inspection: normal inspection of the chest Resp: Effort & Inspection: normal respiratory effort and able to speak in complete sentences Auscultation: clear to auscultation bilaterally Cardio: Rate: regular rate Heart sounds: S1 normal heart sound present and S2 normal heart sound present GI: Inspection: Yes normal to inspection Skin: General skin exam: no rashes or lesions noted Wounds: amputation site (Nonhealing serous drainage, left great toe) Neuro: General: oriented to person, oriented to place, oriented to time and CN's II-XI intact bilaterally Extrem: General: Yes normal to inspection, Yes full ROM and Yes no clubbing, cyanosis or edema Psych: Appearance: grossly normal and well kempt Speech and movement: Normal speech and movement present Affect: normal affect Progress Note: A&P Assessment and plan (1) PVD (peripheral vascular disease): Status: Acute Assessment and Plan: In short patient has a nonhealing left great toe amputation along with very poor runoff. I did have an extensive discussion with the patient regarding these findings. He is in agreement with left below-knee amputation. We will move forward with his left below-knee amputation. Risks benefits complications were discussed in detail with the patient the patient demonstrated clear understanding. Will schedule for tomorrow. Thank you for allowing us to assist in his care. Case was discussed with hospitalist team. Fall Risk Details Current Medications: Current Medications Generic Name Dose Route Start Last Admin Trade Name Freq PRN Reason Stop Dose Admin Acetaminophen 650 mg 12/23/20 09:17 Acetaminophen 325 Mg Tablet PO ONCE PRN Pain, Mild (Pain Scale 1-3) Acetaminophen 650 mg 12/23/20 11:10 Acetaminophen 325 Mg Tablet PO Q6H PRN Pain, Mild (Pain Scale 1-3) Acetaminophen 650 mg 12/30/20 15:30 Acetaminophen 325 Mg Tablet PO Q6H PRN Pain, Mild (Pain Scale 1-3) Albuterol/Ipratropium 3 ml 12/27/20 02:12 Albuterol/Iprat 2.5/0.5mg 3 Ml Ampul.Neb INHALE RQ4H PRN Shortness of Breath/Wheezing Aspirin 81 mg 12/26/20 14:30 01/01/21 07:53 Aspirin Enteric Coated 81 Mg Tablet. PO 81 mg DAILY TJ Administration Docusate Sodium 100 mg 12/28/20 21:00 01/01/21 07:58 Docusate Sodium 100 Mg Capsule PO Not Given BID TJ Gabapentin 600 mg 12/24/20 09:00 01/01/21 07:53 Gabapentin 600 Mg Tablet PO 600 mg DAILY TJ Administration Heparin Sodium (Porcine) 5,000 unit 12/23/20 12:00 01/01/21 03:26 Heparin Sodium,Porcine 5,000 Unit/Ml Vial SUBCUT 5,000 unit Q8H TJ Administration Piperacillin Sod/Tazobactam 50 mls @ 100 mls/hr 12/26/20 13:45 01/01/21 08:35 Sod 3.375 gm/ Sodium Chloride IV Infused Q6H TJ Infusion Daptomycin 500 mg/ Sodium 60 mls @ 100 mls/hr 12/26/20 15:00 12/31/20 15:23 Chloride IV Infused Q24H TJ Infusion Sodium Chloride 1,000 mls @ 100 mls/hr 12/30/20 15:30 01/01/21 03:11 Ns IVCONT 100 mls/hr .Q10H TJ Administration Insulin Glargine 35 unit 12/23/20 21:00 12/31/20 20:24 Insulin Glargine,Hum.Rec.Anlog 100 Unit/Ml 10 Ml Vial SUBCUT 35 unit BEDTIME TJ Administration Insulin Glargine 60 unit 12/31/20 09:00 01/01/21 07:53 Insulin Glargine,Hum.Rec.Anlog 100 Unit/Ml 10 Ml Vial SUBCUT 60 unit DAILY TJ Administration Insulin Human Lispro 0 unit 12/28/20 16:30 01/01/21 07:26 Insulin Lispro 100 Unit/Ml 3 Ml Vial SUBCUT Not Given QIDACHS [facility] Protocol Lisinopril 5 mg 12/23/20 21:00 12/26/20 08:02 Lisinopril 5 Mg Tablet PO 5 mg DAILY [facility] Administration Protocol Magnesium Hydroxide 30 ml 12/30/20 10:11 12/31/20 04:22 Milk Of Magnesia 30 Ml Oral.Susp PO 30 ml TID PRN Administration Constipation Morphine Sulfate 4 mg 12/30/20 15:30 Morphine Sulfate 4 Mg/Ml Cartridge IVPUSH Q2H PRN Pain, Severe (Pain Scale 7-10) Ondansetron HCl 4 mg 12/23/20 09:17 Ondansetron Hcl 4 Mg/2 Ml Vial IVPUSH ONCE PRN Nausea and Vomiting Oxycodone HCl 7.5 mg 12/28/20 10:09 12/29/20 07:51 Oxycodone Hcl Immed Release 5 Mg Tablet PO 7.5 mg Q4H PRN Administration Pain, Moderate (Pain Scale 4-6 Pharmacy Consult 1 each 12/23/20 13:54 Consult Rx Perform Med Rec MISCELLANE ONCE PRN Consult order Polyethylene Glycol 17 gm 12/30/20 10:15 01/01/21 07:58 Polyethylene Glycol 3350 17 Gm Powd.Pack PO Not Given DAILY [facility] Sodium Biphosphate/Sodium Phosphate 133 ml 12/31/20 10:43 Sodium Phosphate,[place]-Dibasic 133 Ml Enema [place] ONCE PRN constipation Sodium Chloride 3 ml 12/23/20 16:00 01/01/21 07:26 0.9 % Sodium Chloride Flush 3 Ml Syringe IVFLUSH Not Given QSHIFT [facility] Time Spent With Patient Time: Total time spent is greater than 50% in coordination of care (as documented) at patient's floor/unit and/or counseling patient: Time with patient: 25 - 35 minutes
--- NOTE | 2021-01-01 11:29 | P.PNIM_ITS ---
Subjective Subjective Date of Service: 01/01/21 Interval History: no complaints Cardiovascular Cardiovascular: Reports no additional cardiovascular complaints Genitourinary Genitourinary: Reports no additional male genitourinary complaints Physical Exam Vital Signs: Vital Signs: Last Vital Signs Temp 98.9 F 01/01/21 08:00 Pulse 75 01/01/21 08:00 Resp 20 01/01/21 08:00 BP 116/62 01/01/21 08:00 Pulse Ox 97 01/01/21 09:00 Oxygen Flow Rate 1 12/23/20 09:17 Body Mass Index 32.2 Gen: in no acute distress HEENT: sclera anicteric, moist mucus membranes Neck: supple Lungs: clear to auscultation bilaterally Heart: regular rate and rhythm, no murmurs Abd: soft, non-tender, non-distended Ext: s/p R BKA, L foot in dry ressing Skin: warm/well-perfused Neuro: alert and oriented x3, no focal findings Psych: appropriate affect Objective Data Current Medications Generic Name Dose Route Start Last Admin Trade Name Daronq PRN Reason Stop Dose Admin Acetaminophen 650 mg 12/23/20 09:17 Acetaminophen 325 Mg Tablet PO ONCE PRN Pain, Mild (Pain Scale 1-3) Acetaminophen 650 mg 12/23/20 11:10 Acetaminophen 325 Mg Tablet PO Q6H PRN Pain, Mild (Pain Scale 1-3) Acetaminophen 650 mg 12/30/20 15:30 Acetaminophen 325 Mg Tablet PO Q6H PRN Pain, Mild (Pain Scale 1-3) Albuterol/Ipratropium 3 ml 12/27/20 02:12 Albuterol/Iprat 2.5/0.5mg 3 Ml Ampul.Neb INHALE RQ4H PRN Shortness of Breath/Wheezing Aspirin 81 mg 12/26/20 14:30 01/01/21 07:53 Aspirin Enteric Coated 81 Mg Tablet. PO 81 mg DAILY TJ Administration Docusate Sodium 100 mg 12/28/20 21:00 01/01/21 07:58 Docusate Sodium 100 Mg Capsule PO Not Given BID TJ Gabapentin 600 mg 12/24/20 09:00 01/01/21 07:53 Gabapentin 600 Mg Tablet PO 600 mg DAILY TJ Administration Heparin Sodium (Porcine) 5,000 unit 12/23/20 12:00 01/01/21 03:26 Heparin Sodium,Porcine 5,000 Unit/Ml Vial SUBCUT 5,000 unit Q8H TJ Administration Piperacillin Sod/Tazobactam 50 mls @ 100 mls/hr 12/26/20 13:45 01/01/21 08:35 Sod 3.375 gm/ Sodium Chloride IV Infused Q6H TJ Infusion Daptomycin 500 mg/ Sodium 60 mls @ 100 mls/hr 12/26/20 15:00 12/31/20 15:23 Chloride IV Infused Q24H TJ Infusion Sodium Chloride 1,000 mls @ 100 mls/hr 12/30/20 15:30 01/01/21 03:11 Ns IVCONT 100 mls/hr .Q10H TJ Administration Insulin Glargine 35 unit 12/23/20 21:00 12/31/20 20:24 Insulin Glargine,Hum.Rec.Anlog 100 Unit/Ml 10 Ml Vial SUBCUT 35 unit BEDTIME TJ Administration Insulin Glargine 60 unit 12/31/20 09:00 01/01/21 07:53 Insulin Glargine,Hum.Rec.Anlog 100 Unit/Ml 10 Ml Vial SUBCUT 60 unit DAILY [facility] Administration Insulin Human Lispro 0 unit 12/28/20 16:30 01/01/21 07:26 Insulin Lispro 100 Unit/Ml 3 Ml Vial SUBCUT Not Given QIDACHS [facility] Protocol Lisinopril 5 mg 12/23/20 21:00 12/26/20 08:02 Lisinopril 5 Mg Tablet PO 5 mg DAILY [facility] Administration Protocol Magnesium Hydroxide 30 ml 12/30/20 10:11 12/31/20 04:22 Milk Of Magnesia 30 Ml Oral.Susp PO 30 ml TID PRN Administration Constipation Morphine Sulfate 4 mg 12/30/20 15:30 Morphine Sulfate 4 Mg/Ml Cartridge IVPUSH Q2H PRN Pain, Severe (Pain Scale 7-10) Ondansetron HCl 4 mg 12/23/20 09:17 Ondansetron Hcl 4 Mg/2 Ml Vial IVPUSH ONCE PRN Nausea and Vomiting Oxycodone HCl 7.5 mg 12/28/20 10:09 12/29/20 07:51 Oxycodone Hcl Immed Release 5 Mg Tablet PO 7.5 mg Q4H PRN Administration Pain, Moderate (Pain Scale 4-6 Pharmacy Consult 1 each 12/23/20 13:54 Consult Rx Perform Med Rec MISCELLANE ONCE PRN Consult order Polyethylene Glycol 17 gm 12/30/20 10:15 01/01/21 07:58 Polyethylene Glycol 3350 17 Gm Powd.Pack PO Not Given DAILY TJ Sodium Biphosphate/Sodium Phosphate 133 ml 12/31/20 10:43 Sodium Phosphate,[place]-Dibasic 133 Ml Enema [place] ONCE PRN constipation Sodium Chloride 3 ml 12/23/20 16:00 01/01/21 07:26 0.9 % Sodium Chloride Flush 3 Ml Syringe IVFLUSH Not Given QSHIFT TJ Labs CBC & Chem 7: 12/31/20 06:06 12/31/20 06:06 Assessment and Plan (1) Diabetic foot infection: Status: Acute (2) PVD (peripheral vascular disease): Status: Acute (3) Status post below-knee amputation: Status: Acute (4) MGUS (monoclonal gammopathy of unknown significance): Status: Acute (5) Drug-induced thrombocytopenia: Status: Acute (6) Hyperlipidemia: Status: Acute (7) Hypertension: Status: Acute Assessment and Plan: hospital d#10 60yo M with DM2 admitted after L great toe amputation for concern of nonhealing site on vascular surgery service, medicine consulting for management of comorbid issues L diabetic foot infection, nonhealing great toe amputation site no fever, WBC normalized, BCx x2 negative, continue pip/malik + daptomycin d#7, ID following, angiogram done yesterday showed 1-vessel runoff with no bypassable vessel. plan for BKA tomorrow DM2, A1c 7.1 (12/26/20) -Lantus/Humalog and glycemic control is good now; held MTF for angiogram HTN - lisinopril held for contrast studies PAD - continue ASA; statin on hold due to interaction with daptomycin DM neuropathy - continue gabapentin constipation - likely due to narcotic use. continue lactulose, add MOM + Miralax. VTE ppx - UFH dispo - will need SNF for wound care + PT
[2021-01-01] MEDS: Insulin Lispro 100 UNIT/ML 3 ML VIAL SUBCUT ×3 (11:46→20:36)
[2021-01-01 12:14] LABS: Glucose, Whole Blood 241 mg/dL (60-115)
[2021-01-01] MEDS: DAPTOmycin 500 MG in 0.9 % Sodium Chloride 50 ML 100 MG IV (14:49)
[2021-01-01 16:27] LABS: Glucose, Whole Blood 259 mg/dL (60-115)
[2021-01-01 20:11] LABS: Glucose, Whole Blood 301 mg/dL (60-115)
[2021-01-01] MEDS: Docusate Sodium 100 MG CAPSULE PO (20:36)
[2021-01-01] MEDS: Insulin Glargine,Hum.rec.anlog 100 UNIT/ML 10 ML VIAL 35 UNIT SUBCUT (20:36)
[2021-01-02] VITALS (17 sets, daily range): BP systolic 91–149; BP diastolic 57–89; PULSE 64–93; RESP 16–48; TEMP 36.2–37.1; O2SAT 94–100
[2021-01-02] MEDS: Piperacillin Sodium/Tazobactam 3.375 GM in 0.9 % Sodium Chloride 50 ML IV ×2 (01:35→07:52)
[2021-01-02] MEDS: 0.9 % Sodium Chloride 1,000 ML 100 ML IVCONT (05:13)
[2021-01-02 06:46] LABS: Basophils Absolute Auto 0.1 X10*3/uL (0.0-0.2); Basophils Percent Auto 0.7 % (0-2); Eosinophils Absolute Auto 0.5 X10*3/uL (0.0-0.4); Eosinophils Percent Auto 5.7 % (0-4); Hematocrit 29.2 % (42-52); Hemoglobin 9.7 g/dl (14.0-18.0); Imm Gran Abs Auto 0.05 X10*3/uL (0.00-0.03); Imm Gran Pct Auto 0.6 % (0.0-0.4); Lymphocytes Absolute Auto 2.3 X10*3/uL (1.2-4.9); Lymphocytes Percent Auto 27.1 % (20-40); MANUAL DIFF FLAG SCAN; Mean Corpuscular HGB Conc 33.2 g/dl (31.0-36.0); Mean Corpuscular Hemoglobin 30.7 pg (27.0-33.0); Mean Corpuscular Volume 92.4 fL (80-98); Mean Platelet Volume 9.7 fL (9.4-12.4); Monocytes Absolute Auto 0.8 X10*3/uL (0.1-1.2); Monocytes Percent Auto 8.8 % (2-11); Neutrophils Absolute Auto 4.9 X10*3/uL (2.0-8.3); Neutrophils Percent Auto 57.1 % (45-73); Platelet Count 300 X10*3/uL (160-400); Red Blood Count 3.16 X10*6/uL (4.60-5.80); Red Cell Distribution Width 12.1 % (11.0-16.0); SCAN SMEAR FLAG 1; White Blood Count 8.6 X10*3/uL (4.8-10.8)
[2021-01-02 07:11] LABS: Anion Gap 13 (12-20); Blood Urea Nitrogen 12 mg/dL (9-16); Calcium 8.7 mg/dL (8.4-10.2); Carbon Dioxide 26 mmol/L (22-29); Chloride 104 mmol/L (96-108); Creatinine Clr Calc Pharmacy 116.8; Estimated Glomerular Filt Rate > 60; Glucose Fasting 111 mg/dL (60-99); Potassium 4.2 mmol/L (3.3-5.1); Sodium 139 mmol/L (135-145)
[2021-01-02 07:21] LABS: SLIDE REVIEW VERIFIED
[2021-01-02 07:28] LABS: Glucose, Whole Blood 103 mg/dL (60-115)
[2021-01-02] MEDS: Gabapentin 600 MG TABLET PO (07:57)
--- NOTE | 2021-01-02 08:59 | HO.PM.IMPN ---
Subjective Subjective Date of Service: 01/02/21 Interval History: resting comfortably Cardiovascular Cardiovascular: Reports no additional cardiovascular complaints Genitourinary Genitourinary: Reports no additional male genitourinary complaints Physical Exam Vital Signs: Vital Signs: Last Vital Signs Temp 98.3 F 01/02/21 07:14 Pulse 64 01/02/21 07:14 Resp 17 01/02/21 07:14 BP 110/60 01/02/21 07:14 Pulse Ox 98 01/02/21 07:14 Oxygen Flow Rate 1 12/23/20 09:17 Body Mass Index 32.2 Gen: in no acute distress HEENT: sclera anicteric, moist mucus membranes Neck: supple Lungs: clear to auscultation bilaterally Heart: regular rate and rhythm, no murmurs Abd: soft, non-tender, non-distended Ext: s/p R BKA, L foot in dry ressing Skin: warm/well-perfused Neuro: alert and oriented x3, no focal findings Psych: appropriate affect Objective Data Current Medications Generic Name Dose Route Start Last Admin Trade Name Daronq PRN Reason Stop Dose Admin Acetaminophen 650 mg 12/23/20 09:17 Acetaminophen 325 Mg Tablet PO ONCE PRN Pain, Mild (Pain Scale 1-3) Acetaminophen 650 mg 12/23/20 11:10 Acetaminophen 325 Mg Tablet PO Q6H PRN Pain, Mild (Pain Scale 1-3) Acetaminophen 650 mg 12/30/20 15:30 Acetaminophen 325 Mg Tablet PO Q6H PRN Pain, Mild (Pain Scale 1-3) Albuterol/Ipratropium 3 ml 12/27/20 02:12 Albuterol/Iprat 2.5/0.5mg 3 Ml Ampul.Neb INHALE RQ4H PRN Shortness of Breath/Wheezing Aspirin 81 mg 12/26/20 14:30 01/02/21 07:58 Aspirin Enteric Coated 81 Mg Tablet. PO Not Given DAILY TJ Docusate Sodium 100 mg 12/28/20 21:00 01/02/21 07:58 Docusate Sodium 100 Mg Capsule PO Not Given BID TJ Gabapentin 600 mg 12/24/20 09:00 01/02/21 07:57 Gabapentin 600 Mg Tablet PO 600 mg DAILY TJ Administration Heparin Sodium (Porcine) 5,000 unit 12/23/20 12:00 01/02/21 03:25 Heparin Sodium,Porcine 5,000 Unit/Ml Vial SUBCUT Not Given Q8H TJ Piperacillin Sod/Tazobactam 50 mls @ 100 mls/hr 12/26/20 13:45 01/02/21 08:23 Sod 3.375 gm/ Sodium Chloride IV Infused Q6H [facility] Infusion Daptomycin 500 mg/ Sodium 60 mls @ 100 mls/hr 12/26/20 15:00 01/01/21 15:28 Chloride IV Infused Q24H [facility] Infusion Sodium Chloride 1,000 mls @ 100 mls/hr 12/30/20 15:30 01/02/21 05:13 Ns IVCONT 100 mls/hr .Q10H [facility] Administration Insulin Glargine 35 unit 12/23/20 21:00 01/01/21 20:36 Insulin Glargine,Hum.Rec.Anlog 100 Unit/Ml 10 Ml Vial SUBCUT 35 unit BEDTIME TJ Administration Insulin Glargine 60 unit 12/31/20 09:00 01/02/21 07:58 Insulin Glargine,Hum.Rec.Anlog 100 Unit/Ml 10 Ml Vial SUBCUT Not Given DAILY [facility] Insulin Human Lispro 0 unit 12/28/20 16:30 01/02/21 07:55 Insulin Lispro 100 Unit/Ml 3 Ml Vial SUBCUT Not Given QIDACHS [facility] Protocol Lisinopril 5 mg 12/23/20 21:00 12/26/20 08:02 Lisinopril 5 Mg Tablet PO 5 mg DAILY [facility] Administration Protocol Magnesium Hydroxide 30 ml 12/30/20 10:11 12/31/20 04:22 Milk Of Magnesia 30 Ml Oral.Susp PO 30 ml TID PRN Administration Constipation Morphine Sulfate 4 mg 12/30/20 15:30 Morphine Sulfate 4 Mg/Ml Cartridge IVPUSH Q2H PRN Pain, Severe (Pain Scale 7-10) Ondansetron HCl 4 mg 12/23/20 09:17 Ondansetron Hcl 4 Mg/2 Ml Vial IVPUSH ONCE PRN Nausea and Vomiting Oxycodone HCl 7.5 mg 12/28/20 10:09 12/29/20 07:51 Oxycodone Hcl Immed Release 5 Mg Tablet PO 7.5 mg Q4H PRN Administration Pain, Moderate (Pain Scale 4-6 Pharmacy Consult 1 each 12/23/20 13:54 Consult Rx Perform Med Rec MISCELLANE ONCE PRN Consult order Polyethylene Glycol 17 gm 12/30/20 10:15 01/02/21 07:58 Polyethylene Glycol 3350 17 Gm Powd.Pack PO Not Given DAILY TJ Sodium Biphosphate/Sodium Phosphate 133 ml 12/31/20 10:43 Sodium Phosphate,[place]-Dibasic 133 Ml Enema [place] ONCE PRN constipation Sodium Chloride 3 ml 12/23/20 16:00 01/02/21 07:53 0.9 % Sodium Chloride Flush 3 Ml Syringe IVFLUSH Not Given QSHIFT TJ Labs CBC & Chem 7: 01/02/21 06:21 01/02/21 06:21 Assessment and Plan (1) Diabetic foot infection: Status: Acute (2) PVD (peripheral vascular disease): Status: Acute (3) Status post below-knee amputation: Status: Acute (4) MGUS (monoclonal gammopathy of unknown significance): Status: Acute (5) Drug-induced thrombocytopenia: Status: Acute (6) Hyperlipidemia: Status: Acute (7) Hypertension: Status: Acute Assessment and Plan: hospital d#10 60yo M with DM2 admitted after L great toe amputation for concern of nonhealing site on vascular surgery service, medicine consulting for management of comorbid issues L diabetic foot infection, nonhealing great toe amputation site no fever, WBC normalized, BCx x2 negative, continue pip/malik + daptomycin d#8, ID following, angiogram done yesterday showed 1-vessel runoff with no bypassable vessel. plan for BKA today, moderate risk, beenefits outweigh risks at this time DM2, A1c 7.1 (12/26/20) -Lantus/Humalog and glycemic control is good now; held MTF for angiogram HTN - lisinopril held for contrast studies PAD - continue ASA; statin on hold due to interaction with daptomycin DM neuropathy - continue gabapentin constipation - likely due to narcotic use. continue lactulose, add MOM + Miralax. VTE ppx - UFH dispo - will need SNF for wound care + PT
[2021-01-02 10:52] LABS: Glucose, Whole Blood 94 mg/dL (60-115)
--- NOTE | 2021-01-02 11:25 | P.CONAN_ITS ---
FORM[facility]LY [facility] Active Problems Active Problems: All Active Problems (Updated 12/31/20 @ 12:23 by Tyrell Gomez MD) Diabetic foot infection (Acute) PVD (peripheral vascular disease) (Acute) Generalized weakness (Acute) Status post below-knee amputation (Acute) MGUS (monoclonal gammopathy of unknown significance) (Acute) Drug-induced thrombocytopenia (Acute) Hyperlipidemia (Acute) Hypertension (Acute) Past Medical History Medical History Amputated great toe of right foot Back pain Diabetic foot infection Drug-induced thrombocytopenia Hyperlipidemia Hypertension IDDM (insulin dependent diabetes mellitus) MGUS (monoclonal gammopathy of unknown significance) Neck pain Peripheral neuropathy Psychiatric diagnosis Sleep apnea Surgical History Surgical History H/O colonoscopy Hx of angioplasty Hx of appendectomy Hx of foot surgery Hx of tonsillectomy Hx of umbilical hernia repair Social History Social History Household Members: None Housing: Apartment Do you presently have visiting nurse or other home services: No Alcohol intake: never Smoking Status: Former smoker Smoked in Last 30 Days: No Smoking Quit Date: 35 years ago Second Hand Smoke Exposure: No Use of substances other than those prescribed or required for medical reasons: No Currently Displaying Signs/Symptoms of Drug Intoxication Withdrawal: No Have you been hit, kicked, punched, or otherwise hurt by someone within the past year? If so, by whom?: No Are you DNR?: No Advance Directives: Yes Advance Directives Information Provided: Yes Advance Directives on File: Yes Advance Directives Date on File: 09/27/20 Do you have thoughts of harming others: None Do you have a plan to hurt others: No Plan Recently lost weight without trying: No Nutrition Risks: No Nutritional Risk service: Yes Current occupational status: unemployed Meds Allergies Allergy/AdvReac Type Severity Reaction Status Date / Time vancomycin AdvReac Severe thrombocyto Verified 12/17/20 11:00 penia Active Medications: Current Medications Generic Name Dose Route Start Last Admin Trade Name Freq PRN Reason Stop Dose Admin Acetaminophen 650 mg 12/23/20 09:17 Acetaminophen 325 Mg Tablet PO ONCE PRN Pain, Mild (Pain Scale 1-3) Acetaminophen 650 mg 12/23/20 11:10 Acetaminophen 325 Mg Tablet PO Q6H PRN Pain, Mild (Pain Scale 1-3) Acetaminophen 650 mg 12/30/20 15:30 Acetaminophen 325 Mg Tablet PO Q6H PRN Pain, Mild (Pain Scale 1-3) Albuterol/Ipratropium 3 ml 12/27/20 02:12 Albuterol/Iprat 2.5/0.5mg 3 Ml Ampul.Neb INHALE RQ4H PRN Shortness of Breath/Wheezing Aspirin 81 mg 12/26/20 14:30 01/02/21 07:58 Aspirin Enteric Coated 81 Mg Tablet.Dr PO Not Given DAILY [facility] Docusate Sodium 100 mg 12/28/20 21:00 01/02/21 07:58 Docusate Sodium 100 Mg Capsule PO Not Given BID [facility] Gabapentin 600 mg 12/24/20 09:00 01/02/21 07:57 Gabapentin 600 Mg Tablet PO 600 mg DAILY TJ Administration Heparin Sodium (Porcine) 5,000 unit 12/23/20 12:00 01/02/21 03:25 Heparin Sodium,Porcine 5,000 Unit/Ml Vial SUBCUT Not Given Q8H TJ Piperacillin Sod/Tazobactam 50 mls @ 100 mls/hr 12/26/20 13:45 01/02/21 08:23 Sod 3.375 gm/ Sodium Chloride IV Infused Q6H TJ Infusion Daptomycin 500 mg/ Sodium 60 mls @ 100 mls/hr 12/26/20 15:00 01/01/21 15:28 Chloride IV Infused Q24H TJ Infusion Sodium Chloride 1,000 mls @ 100 mls/hr 12/30/20 15:30 01/02/21 05:13 Ns IVCONT 100 mls/hr .Q10H TJ Administration Insulin Glargine 35 unit 12/23/20 21:00 01/01/21 20:36 Insulin Glargine,Hum.Rec.Anlog 100 Unit/Ml 10 Ml Vial SUBCUT 35 unit BEDTIME TJ Administration Insulin Glargine 60 unit 12/31/20 09:00 01/02/21 07:58 Insulin Glargine,Hum.Rec.Anlog 100 Unit/Ml 10 Ml Vial SUBCUT Not Given DAILY [facility] Insulin Human Lispro 0 unit 12/28/20 16:30 01/02/21 07:55 Insulin Lispro 100 Unit/Ml 3 Ml Vial SUBCUT Not Given QIDACHS [facility] Protocol Lisinopril 5 mg 12/23/20 21:00 12/26/20 08:02 Lisinopril 5 Mg Tablet PO 5 mg DAILY [facility] Administration Protocol Magnesium Hydroxide 30 ml 12/30/20 10:11 12/31/20 04:22 Milk Of Magnesia 30 Ml Oral.Susp PO 30 ml TID PRN Administration Constipation Morphine Sulfate 4 mg 12/30/20 15:30 Morphine Sulfate 4 Mg/Ml Cartridge IVPUSH Q2H PRN Pain, Severe (Pain Scale 7-10) Ondansetron HCl 4 mg 12/23/20 09:17 Ondansetron Hcl 4 Mg/2 Ml Vial IVPUSH ONCE PRN Nausea and Vomiting Pharmacy Consult 1 each 12/23/20 13:54 Consult Rx Perform Med Rec MISCELLANE ONCE PRN Consult order Polyethylene Glycol 17 gm 12/30/20 10:15 01/02/21 07:58 Polyethylene Glycol 3350 17 Gm Powd.Pack PO Not Given DAILY [facility] Sodium Biphosphate/Sodium Phosphate 133 ml 12/31/20 10:43 Sodium Phosphate,[place]-Dibasic 133 Ml Enema [place] ONCE PRN constipation Sodium Chloride 3 ml 12/23/20 16:00 01/02/21 07:53 0.9 % Sodium Chloride Flush 3 Ml Syringe IVFLUSH Not Given QSHIFT [facility] Home Medications Medication Instructions Recorded Confirmed Last Taken Type Victoza 3-Chet 1.8 mg SUBCUT DAILY 07/17/20 12/23/20 12/23/20 09:00 History aspirin 81 mg PO DAILY 07/17/20 12/23/20 12/23/20 09:00 History gabapentin 600 mg PO DAILY 07/17/20 12/23/20 12/23/20 09:00 History lisinopril 5 mg PO DAILY 07/17/20 12/23/20 12/23/20 09:00 History metformin 1,000 mg PO BID 07/17/20 12/23/20 12/23/20 09:00 History cholecalciferol (vitamin D3) 25 mcg PO DAILY 09/04/20 12/23/20 12/23/20 09:00 History fluoxetine 20 mg capsule 20 mg PO DAILY 10/01/20 12/23/20 12/23/20 09:00 History atorvastatin 40 mg PO DAILY 0212/23/20 12/23/20 09:00 History albuterol sulfate 90 mcg/actuation 2 puff INHALATION Q4-6H PRN 12/17/20 12/23/20 Unknown History aerosol inhaler insulin degludec [Tresiba 50 unit SUBCUT QPM 12/23/20 12/23/20 12/23/20 09:00 History FlexTouch U-100] insulin degludec [Tresiba 80 unit SUBCUT QAM 12/23/20 12/23/20 12/23/20 09:00 History FlexTouch U-100] Exam Exam Date and Time: January 02, 2021 1125 Height,Weight and Vital Signs: Height 6 ft 2 in Weight 114 kg Last Vital Signs Temp 97.1 F 01/02/21 10:52 Pulse 71 01/02/21 10:52 Resp 18 01/02/21 10:52 BP 148/79 H 01/02/21 10:52 Pulse Ox 96 01/02/21 10:52 Oxygen Flow Rate 1 12/23/20 09:17 Pertinent Lab Results Pertinent Lab Results: Laboratory Tests 12/23/20 12/23/20 12/23/20 07:48 07:55 08:05 WBC 11.4 H RBC 4.09 L D Hgb 12.4 L Hct 37.5 L MCV 91.7 MCH 30.3 MCHC 33.1 RDW 12.2 Plt Count 398 MPV 9.9 Immature Gran % (Auto) Neut % (Auto) Lymph % (Auto) [place] % (Auto) Eos % (Auto) Baso % (Auto) Lymph # (Auto) [place] # (Auto) Eos # (Auto) Baso # (Auto) Abs Immat Gran (auto) Absolute Neuts (auto) Absolute Nucleated RBC 0.000 Nucleated RBC % (auto) 0.0 Smear Tech's Comments PT INR APTT Sodium Potassium Chloride Carbon Dioxide Anion Gap BUN Creatinine Estim Creat Clear Calc Estimated GFR POC Glucose 135 H Random Glucose Fasting Glucose Estimat Average Glucose Hemoglobin A1c % Calcium COVID-19 (JOSE) Negative COVID-19 Clin Com See Note Blood Type Antibody Screen 12/23/20 12/23/20 12/23/20 08:05 08:05 16:14 WBC RBC Hgb Hct MCV MCH MCHC RDW Plt Count MPV Immature Gran % (Auto) Neut % (Auto) Lymph % (Auto) [place] % (Auto) Eos % (Auto) Baso % (Auto) Lymph # (Auto) [place] # (Auto) Eos # (Auto) Baso # (Auto) Abs Immat Gran (auto) Absolute Neuts (auto) Absolute Nucleated RBC Nucleated RBC % (auto) Smear Tech's Comments PT 14.0 H INR 1.2 H APTT 38.8 H Sodium 136 Potassium 4.6 Chloride 100 Carbon Dioxide 28 Anion Gap 13 BUN 18 H Creatinine 0.87 Estim Creat Clear Calc TNP Estimated GFR > 60 POC Glucose 144 H Random Glucose 134 H D Fasting Glucose Estimat Average Glucose Hemoglobin A1c % Calcium 9.6 D COVID-19 (JOSE) COVID-19 [facility] Blood Type Antibody Screen 12/23/20 12/24/20 12/24/20 20:23 07:22 08:06 WBC 11.0 H RBC 3.71 L Hgb 11.4 L Hct 33.6 L MCV 90.6 MCH 30.7 MCHC 33.9 RDW 12.2 Plt Count 348 MPV 9.9 Immature Gran % (Auto) 0.5 H Neut % (Auto) 67.2 Lymph % (Auto) 17.4 L [place] % (Auto) 11.5 H Eos % (Auto) 3.1 Baso % (Auto) 0.3 Lymph # (Auto) 1.9 [place] # (Auto) 1.3 H Eos # (Auto) 0.3 Baso # (Auto) 0.0 Abs Immat Gran (auto) 0.06 H Absolute Neuts (auto) 7.4 Absolute Nucleated RBC 0.000 Nucleated RBC % (auto) 0.0 Smear Tech's Comments PT INR APTT Sodium Potassium Chloride Carbon Dioxide Anion Gap BUN Creatinine Estim Creat Clear Calc Estimated GFR POC Glucose 132 H 143 H Random Glucose Fasting Glucose Estimat Average Glucose Hemoglobin A1c % Calcium COVID-19 (JOSE) COVID-19 [facility] [employer] [facility] Blood Type Antibody Screen 12/24/20 12/24/20 12/25/20 08:06 20:55 07:39 WBC RBC Hgb Hct MCV MCH MCHC RDW Plt Count MPV Immature Gran % (Auto) Neut % (Auto) Lymph % (Auto) [place] % (Auto) Eos % (Auto) Baso % (Auto) Lymph # (Auto) [place] # (Auto) Eos # (Auto) Baso # (Auto) Abs Immat Gran (auto) Absolute Neuts (auto) Absolute Nucleated RBC Nucleated RBC % (auto) Smear Tech's Comments PT INR APTT Sodium 136 Potassium 4.9 Chloride 102 Carbon Dioxide 26 Anion Gap 13 BUN 15 Creatinine 0.82 Estim Creat Clear Calc TNP Estimated GFR > 60 POC Glucose 245 H 130 H Random Glucose 138 H Fasting Glucose Estimat Average Glucose Hemoglobin A1c % Calcium 8.9 D COVID-19 (JOSE) COVID-[employer] Blood Type Antibody Screen 12/25/20 12/25/20 12/25/20 11:11 16:14 20:28 WBC RBC Hgb Hct MCV MCH MCHC RDW Plt Count MPV Immature Gran % (Auto) Neut % (Auto) Lymph % (Auto) [place] % (Auto) Eos % (Auto) Baso % (Auto) Lymph # (Auto) [place] # (Auto) Eos # (Auto) Baso # (Auto) Abs Immat Gran (auto) Absolute Neuts (auto) Absolute Nucleated RBC Nucleated RBC % (auto) Smear Tech's Comments PT INR APTT Sodium Potassium Chloride Carbon Dioxide Anion Gap BUN Creatinine Estim Creat Clear Calc Estimated GFR POC Glucose 201 H 202 H 251 H Random Glucose Fasting Glucose Estimat Average Glucose Hemoglobin A1c % Calcium COVID-19 (JOSE) [employer] Blood Type Antibody Screen 12/26/20 12/26/20 12/26/20 07:21 09:15 09:15 WBC RBC Hgb Hct MCV MCH MCHC RDW Plt Count MPV Immature Gran % (Auto) Neut % (Auto) Lymph % (Auto) [place] % (Auto) Eos % (Auto) Baso % (Auto) Lymph # (Auto) [place] # (Auto) Eos # (Auto) Baso # (Auto) Abs Immat Gran (auto) Absolute Neuts (auto) Absolute Nucleated RBC Nucleated RBC % (auto) Smear Tech's Comments PT INR APTT Sodium 134 L Potassium 4.6 Chloride 98 Carbon Dioxide 27 Anion Gap 14 BUN 18 H Creatinine 0.93 Estim Creat Clear Calc TNP Estimated GFR > 60 POC Glucose 131 H Random Glucose 243 H D Fasting Glucose Estimat Average Glucose 157 Hemoglobin A1c % 7.1 Calcium 9.0 COVID-19 (JOSE) COVID-[employer] Blood Type Antibody Screen 12/26/20 12/26/20 12/26/20 11:06 16:03 20:48 WBC RBC Hgb Hct MCV MCH MCHC RDW Plt Count MPV Immature Gran % (Auto) Neut % (Auto) Lymph % (Auto) [place] % (Auto) Eos % (Auto) Baso % (Auto) Lymph # (Auto) [place] # (Auto) Eos # (Auto) Baso # (Auto) Abs Immat Gran (auto) Absolute Neuts (auto) Absolute Nucleated RBC Nucleated RBC % (auto) Smear Tech's Comments PT INR APTT Sodium Potassium Chloride Carbon Dioxide Anion Gap BUN Creatinine Estim Creat Clear Calc Estimated GFR POC Glucose 239 H 215 H 183 H Random Glucose Fasting Glucose Estimat Average Glucose Hemoglobin A1c % Calcium COVID-19 (JOSE) [employer] Blood Type Antibody Screen 12/27/20 12/27/20 12/27/20 05:47 05:47 07:24 WBC 10.4 RBC 3.55 L Hgb 10.6 L Hct 32.7 L MCV 92.1 MCH 29.9 MCHC 32.4 RDW 12.4 Plt Count 332 MPV 10.0 Immature Gran % (Auto) Neut % (Auto) Lymph % (Auto) [place] % (Auto) Eos % (Auto) Baso % (Auto) Lymph # (Auto) [place] # (Auto) Eos # (Auto) Baso # (Auto) Abs Immat Gran (auto) Absolute Neuts (auto) Absolute Nucleated RBC 0.000 Nucleated RBC % (auto) 0.0 Smear Tech's Comments PT INR APTT Sodium 135 Potassium 4.9 Chloride 99 Carbon Dioxide 27 Anion Gap 14 BUN 24 H Creatinine 1.09 Estim Creat Clear Calc 96.3 Estimated GFR > 60 POC Glucose 146 H Random Glucose 162 H Fasting Glucose Estimat Average Glucose Hemoglobin A1c % Calcium 8.9 COVID-19 (JOSE) COVID-[employer] Blood Type Antibody Screen 12/27/20 12/27/20 12/27/20 11:35 16:11 19:52 WBC RBC Hgb Hct MCV MCH MCHC RDW Plt Count MPV Immature Gran % (Auto) Neut % (Auto) Lymph % (Auto) [place] % (Auto) Eos % (Auto) Baso % (Auto) Lymph # (Auto) [place] # (Auto) Eos # (Auto) Baso # (Auto) Abs Immat Gran (auto) Absolute Neuts (auto) Absolute Nucleated RBC Nucleated RBC % (auto) Smear Tech's Comments PT INR APTT Sodium Potassium Chloride Carbon Dioxide Anion Gap BUN Creatinine Estim Creat Clear Calc Estimated GFR POC Glucose 184 H 203 H 303 H Random Glucose Fasting Glucose Estimat Average Glucose Hemoglobin A1c % Calcium COVID-19 (JOSE) [email or web address] Blood Type Antibody Screen 12/28/20 12/28/20 12/28/20 07:09 10:58 16:45 WBC RBC Hgb Hct MCV MCH MCHC RDW Plt Count MPV Immature Gran % (Auto) Neut % (Auto) Lymph % (Auto) [place] % (Auto) Eos % (Auto) Baso % (Auto) Lymph # (Auto) [place] # (Auto) Eos # (Auto) Baso # (Auto) Abs Immat Gran (auto) Absolute Neuts (auto) Absolute Nucleated RBC Nucleated RBC % (auto) Smear Tech's Comments PT INR APTT Sodium Potassium Chloride Carbon Dioxide Anion Gap BUN Creatinine Estim Creat Clear Calc Estimated GFR POC Glucose 176 H 252 H 309 H Random Glucose Fasting Glucose Estimat Average Glucose Hemoglobin A1c % Calcium COVID-19 (JOSE) [employer] Blood Type Antibody Screen 12/28/20 12/29/20 12/29/20 20:05 07:13 11:06 WBC RBC Hgb Hct MCV MCH MCHC RDW Plt Count MPV Immature Gran % (Auto) Neut % (Auto) Lymph % (Auto) [place] % (Auto) Eos % (Auto) Baso % (Auto) Lymph # (Auto) [place] # (Auto) Eos # (Auto) Baso # (Auto) Abs Immat Gran (auto) Absolute Neuts (auto) Absolute Nucleated RBC Nucleated RBC % (auto) Smear Tech's Comments PT INR APTT Sodium Potassium Chloride Carbon Dioxide Anion Gap BUN Creatinine Estim Creat Clear Calc Estimated GFR POC Glucose 350 H* 154 H 295 H Random Glucose Fasting Glucose Estimat Average Glucose Hemoglobin A1c % Calcium COVID-19 (JOSE) [email or web address] Blood Type Antibody Screen 12/29/20 12/29/20 12/30/20 16:27 20:35 07:18 WBC RBC Hgb Hct MCV MCH MCHC RDW Plt Count MPV Immature Gran % (Auto) Neut % (Auto) Lymph % (Auto) [place] % (Auto) Eos % (Auto) Baso % (Auto) Lymph # (Auto) [place] # (Auto) Eos # (Auto) Baso # (Auto) Abs Immat Gran (auto) Absolute Neuts (auto) Absolute Nucleated RBC Nucleated RBC % (auto) Smear Tech's Comments PT INR APTT Sodium Potassium Chloride Carbon Dioxide Anion Gap BUN Creatinine Estim Creat Clear Calc Estimated GFR POC Glucose 265 H 219 H 151 H Random Glucose Fasting Glucose Estimat Average Glucose Hemoglobin A1c % Calcium COVID-19 (JOSE) [employer] Blood Type Antibody Screen 12/30/20 12/30/20 12/30/20 11:24 17:25 20:23 WBC RBC Hgb Hct MCV MCH MCHC RDW Plt Count MPV Immature Gran % (Auto) Neut % (Auto) Lymph % (Auto) [place] % (Auto) Eos % (Auto) Baso % (Auto) Lymph # (Auto) [place] # (Auto) Eos # (Auto) Baso # (Auto) Abs Immat Gran (auto) Absolute Neuts (auto) Absolute Nucleated RBC Nucleated RBC % (auto) Smear Tech's Comments PT INR APTT Sodium Potassium Chloride Carbon Dioxide Anion Gap BUN Creatinine Estim Creat Clear Calc Estimated GFR POC Glucose 135 H 118 H 199 H Random Glucose Fasting Glucose Estimat Average Glucose Hemoglobin A1c % Calcium COVID-19 (JOSE) [employer] Blood Type Antibody Screen 12/31/20 12/31/20 12/31/20 06:06 06:06 07:19 WBC 8.1 RBC 3.71 L Hgb 11.1 L Hct 34.4 L MCV 92.7 MCH 29.9 MCHC 32.3 RDW 12.1 Plt Count 268 MPV 10.4 Immature Gran % (Auto) Neut % (Auto) Lymph % (Auto) [place] % (Auto) Eos % (Auto) Baso % (Auto) Lymph # (Auto) [place] # (Auto) Eos # (Auto) Baso # (Auto) Abs Immat Gran (auto) Absolute Neuts (auto) Absolute Nucleated RBC 0.000 Nucleated RBC % (auto) 0.0 Smear Tech's Comments PT INR APTT Sodium 135 Potassium 4.5 Chloride 101 Carbon Dioxide 23 Anion Gap 16 BUN 23 H Creatinine 0.93 Estim Creat Clear Calc 111.9 Estimated GFR > 60 POC Glucose 151 H Random Glucose 166 H Fasting Glucose Estimat Average Glucose Hemoglobin A1c % Calcium 8.9 COVID-19 (JOSE) [employer] Blood Type Antibody Screen 12/31/20 12/31/20 12/31/20 11:21 16:05 20:02 WBC RBC Hgb Hct MCV MCH MCHC RDW Plt Count MPV Immature Gran % (Auto) Neut % (Auto) Lymph % (Auto) [place] % (Auto) Eos % (Auto) Baso % (Auto) Lymph # (Auto) [place] # (Auto) Eos # (Auto) Baso # (Auto) Abs Immat Gran (auto) Absolute Neuts (auto) Absolute Nucleated RBC Nucleated RBC % (auto) Smear Tech's Comments PT INR APTT Sodium Potassium Chloride Carbon Dioxide Anion Gap BUN Creatinine Estim Creat Clear Calc Estimated GFR POC Glucose 236 H 288 H 229 H Random Glucose Fasting Glucose Estimat Average Glucose Hemoglobin A1c % Calcium COVID-19 (JOSE) [employer] [facility] Blood Type Antibody Screen 01/01/21 01/01/21 01/01/21 07:22 10:02 11:08 WBC RBC Hgb Hct MCV MCH MCHC RDW Plt Count MPV Immature Gran % (Auto) Neut % (Auto) Lymph % (Auto) [place] % (Auto) Eos % (Auto) Baso % (Auto) Lymph # (Auto) [place] # (Auto) Eos # (Auto) Baso # (Auto) Abs Immat Gran (auto) Absolute Neuts (auto) Absolute Nucleated RBC Nucleated RBC % (auto) Smear Tech's Comments PT INR APTT Sodium Potassium Chloride Carbon Dioxide Anion Gap BUN Creatinine Estim Creat Clear Calc Estimated GFR POC Glucose 120 H 241 H Random Glucose Fasting Glucose Estimat Average Glucose Hemoglobin A1c % Calcium COVID-19 (JOSE) COVID-19 [facility] Blood Type O Positive Antibody Screen NEGATIVE 01/01/21 01/01/21 01/02/21 16:24 20:07 06:21 WBC 8.6 RBC 3.16 L Hgb 9.7 L Hct 29.2 L MCV 92.4 MCH 30.7 MCHC 33.2 RDW 12.1 Plt Count 300 MPV 9.7 Immature Gran % (Auto) 0.6 H Neut % (Auto) 57.1 Lymph % (Auto) 27.1 [place] % (Auto) 8.8 Eos % (Auto) 5.7 H Baso % (Auto) 0.7 Lymph # (Auto) 2.3 [place] # (Auto) 0.8 Eos # (Auto) 0.5 H Baso # (Auto) 0.1 Abs Immat Gran (auto) 0.05 H Absolute Neuts (auto) 4.9 Absolute Nucleated RBC 0.000 Nucleated RBC % (auto) 0.0 Smear Tech's Comments VERIFIED PT INR APTT Sodium Potassium Chloride Carbon Dioxide Anion Gap BUN Creatinine Estim Creat Clear Calc Estimated GFR POC Glucose 259 H 301 H Random Glucose Fasting Glucose Estimat Average Glucose Hemoglobin A1c % Calcium COVID-19 (JOSE) [employer] Blood Type Antibody Screen 01/02/21 01/02/21 01/02/21 06:21 07:16 10:45 WBC RBC Hgb Hct MCV MCH MCHC RDW Plt Count MPV Immature Gran % (Auto) Neut % (Auto) Lymph % (Auto) [place] % (Auto) Eos % (Auto) Baso % (Auto) Lymph # (Auto) [place] # (Auto) Eos # (Auto) Baso # (Auto) Abs Immat Gran (auto) Absolute Neuts (auto) Absolute Nucleated RBC Nucleated RBC % (auto) Smear Tech's Comments PT INR APTT Sodium 139 Potassium 4.2 Chloride 104 Carbon Dioxide 26 Anion Gap 13 BUN 12 Creatinine 0.88 Estim Creat Clear Calc 116.8 Estimated GFR > 60 POC Glucose 103 94 Random Glucose Fasting Glucose 111 H Estimat Average Glucose Hemoglobin A1c % Calcium 8.7 COVID-19 (JOSE) [employer] Blood Type Antibody Screen
--- NOTE | 2021-01-02 11:28 | P.CONAN_ITS ---
[facility] Active Problems Active Problems: All Active Problems (Updated 12/31/20 @ 12:23 by Tyrell Gomez MD) Diabetic foot infection (Acute) PVD (peripheral vascular disease) (Acute) Generalized weakness (Acute) Status post below-knee amputation (Acute) MGUS (monoclonal gammopathy of unknown significance) (Acute) Drug-induced thrombocytopenia (Acute) Hyperlipidemia (Acute) Hypertension (Acute) Past Medical History Medical History Amputated great toe of right foot Back pain Diabetic foot infection Drug-induced thrombocytopenia Hyperlipidemia Hypertension IDDM (insulin dependent diabetes mellitus) MGUS (monoclonal gammopathy of unknown significance) Neck pain Peripheral neuropathy Psychiatric diagnosis Sleep apnea Surgical History Surgical History H/O colonoscopy Hx of angioplasty Hx of appendectomy Hx of foot surgery Hx of tonsillectomy Hx of umbilical hernia repair Social History Social History Household Members: None Housing: Apartment Do you presently have visiting nurse or other home services: No Alcohol intake: never Smoking Status: Former smoker Smoked in Last 30 Days: No Smoking Quit Date: 35 years ago Second Hand Smoke Exposure: No Use of substances other than those prescribed or required for medical reasons: No Currently Displaying Signs/Symptoms of Drug Intoxication Withdrawal: No Have you been hit, kicked, punched, or otherwise hurt by someone within the past year? If so, by whom?: No Are you DNR?: No Advance Directives: Yes Advance Directives Information Provided: Yes Advance Directives on File: Yes Advance Directives Date on File: 09/27/20 Do you have thoughts of harming others: None Do you have a plan to hurt others: No Plan Recently lost weight without trying: No Nutrition Risks: No Nutritional Risk service: Yes Current occupational status: unemployed Meds Allergies Allergy/AdvReac Type Severity Reaction Status Date / Time vancomycin AdvReac Severe thrombocyto Verified 12/17/20 11:00 penia Active Medications: Current Medications Generic Name Dose Route Start Last Admin Trade Name Freq PRN Reason Stop Dose Admin Acetaminophen 650 mg 12/23/20 09:17 Acetaminophen 325 Mg Tablet PO ONCE PRN Pain, Mild (Pain Scale 1-3) Acetaminophen 650 mg 12/23/20 11:10 Acetaminophen 325 Mg Tablet PO Q6H PRN Pain, Mild (Pain Scale 1-3) Acetaminophen 650 mg 12/30/20 15:30 Acetaminophen 325 Mg Tablet PO Q6H PRN Pain, Mild (Pain Scale 1-3) Albuterol/Ipratropium 3 ml 12/27/20 02:12 Albuterol/Iprat 2.5/0.5mg 3 Ml Ampul.Neb INHALE RQ4H PRN Shortness of Breath/Wheezing Aspirin 81 mg 12/26/20 14:30 01/02/21 07:58 Aspirin Enteric Coated 81 Mg Tablet.Dr PO Not Given DAILY [facility] Docusate Sodium 100 mg 12/28/20 21:00 01/02/21 07:58 Docusate Sodium 100 Mg Capsule PO Not Given BID [facility] Gabapentin 600 mg 12/24/20 09:00 01/02/21 07:57 Gabapentin 600 Mg Tablet PO 600 mg DAILY TJ Administration Heparin Sodium (Porcine) 5,000 unit 12/23/20 12:00 01/02/21 03:25 Heparin Sodium,Porcine 5,000 Unit/Ml Vial SUBCUT Not Given Q8H TJ Piperacillin Sod/Tazobactam 50 mls @ 100 mls/hr 12/26/20 13:45 01/02/21 08:23 Sod 3.375 gm/ Sodium Chloride IV Infused Q6H TJ Infusion Daptomycin 500 mg/ Sodium 60 mls @ 100 mls/hr 12/26/20 15:00 01/01/21 15:28 Chloride IV Infused Q24H TJ Infusion Sodium Chloride 1,000 mls @ 100 mls/hr 12/30/20 15:30 01/02/21 05:13 Ns IVCONT 100 mls/hr .Q10H TJ Administration Insulin Glargine 35 unit 12/23/20 21:00 01/01/21 20:36 Insulin Glargine,Hum.Rec.Anlog 100 Unit/Ml 10 Ml Vial SUBCUT 35 unit BEDTIME TJ Administration Insulin Glargine 60 unit 12/31/20 09:00 01/02/21 07:58 Insulin Glargine,Hum.Rec.Anlog 100 Unit/Ml 10 Ml Vial SUBCUT Not Given DAILY [facility] Insulin Human Lispro 0 unit 12/28/20 16:30 01/02/21 07:55 Insulin Lispro 100 Unit/Ml 3 Ml Vial SUBCUT Not Given QIDACHS [facility] Protocol Lisinopril 5 mg 12/23/20 21:00 12/26/20 08:02 Lisinopril 5 Mg Tablet PO 5 mg DAILY [facility] Administration Protocol Magnesium Hydroxide 30 ml 12/30/20 10:11 12/31/20 04:22 Milk Of Magnesia 30 Ml Oral.Susp PO 30 ml TID PRN Administration Constipation Morphine Sulfate 4 mg 12/30/20 15:30 Morphine Sulfate 4 Mg/Ml Cartridge IVPUSH Q2H PRN Pain, Severe (Pain Scale 7-10) Ondansetron HCl 4 mg 12/23/20 09:17 Ondansetron Hcl 4 Mg/2 Ml Vial IVPUSH ONCE PRN Nausea and Vomiting Pharmacy Consult 1 each 12/23/20 13:54 Consult Rx Perform Med Rec MISCELLANE ONCE PRN Consult order Polyethylene Glycol 17 gm 12/30/20 10:15 01/02/21 07:58 Polyethylene Glycol 3350 17 Gm Powd.Pack PO Not Given DAILY [facility] Sodium Biphosphate/Sodium Phosphate 133 ml 12/31/20 10:43 Sodium Phosphate,Doddridge-Dibasic 133 Ml Enema NV ONCE PRN constipation Sodium Chloride 3 ml 12/23/20 16:00 01/02/21 07:53 0.9 % Sodium Chloride Flush 3 Ml Syringe IVFLUSH Not Given QSHIFT [facility] Home Medications Medication Instructions Recorded Confirmed Last Taken Type Victoza 3-Chet 1.8 mg SUBCUT DAILY 07/17/20 12/23/20 12/23/20 09:00 History aspirin 81 mg PO DAILY 07/17/20 12/23/20 12/23/20 09:00 History gabapentin 600 mg PO DAILY 07/17/20 12/23/20 12/23/20 09:00 History lisinopril 5 mg PO DAILY 07/17/20 12/23/20 12/23/20 09:00 History metformin 1,000 mg PO BID 07/17/20 12/23/20 12/23/20 09:00 History cholecalciferol (vitamin D3) 25 mcg PO DAILY 09/04/20 12/23/20 12/23/20 09:00 History fluoxetine 20 mg capsule 20 mg PO DAILY 10/01/20 12/23/20 12/23/20 09:00 History atorvastatin 40 mg PO DAILY 0212/23/20 12/23/20 09:00 History albuterol sulfate 90 mcg/actuation 2 puff INHALATION Q4-6H PRN 12/17/20 12/23/20 Unknown History aerosol inhaler insulin degludec [Tresiba 50 unit SUBCUT QPM 12/23/20 12/23/20 12/23/20 09:00 History FlexTouch U-100] insulin degludec [Tresiba 80 unit SUBCUT QAM 12/23/20 12/23/20 12/23/20 09:00 History FlexTouch U-100] Exam Exam Date and Time: January 02, 2021 1128 Height,Weight and Vital Signs: Height 6 ft 2 in Weight 114 kg Last Vital Signs Temp 97.1 F 01/02/21 10:52 Pulse 71 01/02/21 10:52 Resp 18 01/02/21 10:52 BP 148/79 H 01/02/21 10:52 Pulse Ox 96 01/02/21 10:52 Oxygen Flow Rate 1 12/23/20 09:17 Pertinent Lab Results Pertinent Lab Results: Laboratory Tests 12/23/20 12/23/20 12/23/20 07:48 07:55 08:05 WBC 11.4 H RBC 4.09 L D Hgb 12.4 L Hct 37.5 L MCV 91.7 MCH 30.3 MCHC 33.1 RDW 12.2 Plt Count 398 MPV 9.9 Immature Gran % (Auto) Neut % (Auto) Lymph % (Auto) [place] % (Auto) Eos % (Auto) Baso % (Auto) Lymph # (Auto) [place] # (Auto) Eos # (Auto) Baso # (Auto) Abs Immat Gran (auto) Absolute Neuts (auto) Absolute Nucleated RBC 0.000 Nucleated RBC % (auto) 0.0 Smear Tech's Comments PT INR APTT Sodium Potassium Chloride Carbon Dioxide Anion Gap BUN Creatinine Estim Creat Clear Calc Estimated GFR POC Glucose 135 H Random Glucose Fasting Glucose Estimat Average Glucose Hemoglobin A1c % Calcium COVID-19 (JOSE) Negative COVID-19 Clin Com See Note Blood Type Antibody Screen 12/23/20 12/23/20 12/23/20 08:05 08:05 16:14 WBC RBC Hgb Hct MCV MCH MCHC RDW Plt Count MPV Immature Gran % (Auto) Neut % (Auto) Lymph % (Auto) [place] % (Auto) Eos % (Auto) Baso % (Auto) Lymph # (Auto) [place] # (Auto) Eos # (Auto) Baso # (Auto) Abs Immat Gran (auto) Absolute Neuts (auto) Absolute Nucleated RBC Nucleated RBC % (auto) Smear Tech's Comments PT 14.0 H INR 1.2 H APTT 38.8 H Sodium 136 Potassium 4.6 Chloride 100 Carbon Dioxide 28 Anion Gap 13 BUN 18 H Creatinine 0.87 Estim Creat Clear Calc TNP Estimated GFR > 60 POC Glucose 144 H Random Glucose 134 H D Fasting Glucose Estimat Average Glucose Hemoglobin A1c % Calcium 9.6 D COVID-19 (JOSE) COVID-19 [facility] Blood Type Antibody Screen 12/23/20 12/24/20 12/24/20 20:23 07:22 08:06 WBC 11.0 H RBC 3.71 L Hgb 11.4 L Hct 33.6 L MCV 90.6 MCH 30.7 MCHC 33.9 RDW 12.2 Plt Count 348 MPV 9.9 Immature Gran % (Auto) 0.5 H Neut % (Auto) 67.2 Lymph % (Auto) 17.4 L [place] % (Auto) 11.5 H Eos % (Auto) 3.1 Baso % (Auto) 0.3 Lymph # (Auto) 1.9 [place] # (Auto) 1.3 H Eos # (Auto) 0.3 Baso # (Auto) 0.0 Abs Immat Gran (auto) 0.06 H Absolute Neuts (auto) 7.4 Absolute Nucleated RBC 0.000 Nucleated RBC % (auto) 0.0 Smear Tech's Comments PT INR APTT Sodium Potassium Chloride Carbon Dioxide Anion Gap BUN Creatinine Estim Creat Clear Calc Estimated GFR POC Glucose 132 H 143 H Random Glucose Fasting Glucose Estimat Average Glucose Hemoglobin A1c % Calcium COVID-19 (JOSE) COVID-19 [facility] Blood Type Antibody Screen 12/24/20 12/24/20 12/25/20 08:06 20:55 07:39 WBC RBC Hgb Hct MCV MCH MCHC RDW Plt Count MPV Immature Gran % (Auto) Neut % (Auto) Lymph % (Auto) [place] % (Auto) Eos % (Auto) Baso % (Auto) Lymph # (Auto) [place] # (Auto) Eos # (Auto) Baso # (Auto) Abs Immat Gran (auto) Absolute Neuts (auto) Absolute Nucleated RBC Nucleated RBC % (auto) Smear Tech's Comments PT INR APTT Sodium 136 Potassium 4.9 Chloride 102 Carbon Dioxide 26 Anion Gap 13 BUN 15 Creatinine 0.82 Estim Creat Clear Calc TNP Estimated GFR > 60 POC Glucose 245 H 130 H Random Glucose 138 H Fasting Glucose Estimat Average Glucose Hemoglobin A1c % Calcium 8.9 D COVID-19 (JOSE) [email or web address] Blood Type Antibody Screen 12/25/20 12/25/20 12/25/20 11:11 16:14 20:28 WBC RBC Hgb Hct MCV MCH MCHC RDW Plt Count MPV Immature Gran % (Auto) Neut % (Auto) Lymph % (Auto) [place] % (Auto) Eos % (Auto) Baso % (Auto) Lymph # (Auto) [place] # (Auto) Eos # (Auto) Baso # (Auto) Abs Immat Gran (auto) Absolute Neuts (auto) Absolute Nucleated RBC Nucleated RBC % (auto) Smear Tech's Comments PT INR APTT Sodium Potassium Chloride Carbon Dioxide Anion Gap BUN Creatinine Estim Creat Clear Calc Estimated GFR POC Glucose 201 H 202 H 251 H Random Glucose Fasting Glucose Estimat Average Glucose Hemoglobin A1c % Calcium COVID-19 (JOSE) [employer] Blood Type Antibody Screen 12/26/20 12/26/20 12/26/20 07:21 09:15 09:15 WBC RBC Hgb Hct MCV MCH MCHC RDW Plt Count MPV Immature Gran % (Auto) Neut % (Auto) Lymph % (Auto) [place] % (Auto) Eos % (Auto) Baso % (Auto) Lymph # (Auto) [place] # (Auto) Eos # (Auto) Baso # (Auto) Abs Immat Gran (auto) Absolute Neuts (auto) Absolute Nucleated RBC Nucleated RBC % (auto) Smear Tech's Comments PT INR APTT Sodium 134 L Potassium 4.6 Chloride 98 Carbon Dioxide 27 Anion Gap 14 BUN 18 H Creatinine 0.93 Estim Creat Clear Calc TNP Estimated GFR > 60 POC Glucose 131 H Random Glucose 243 H D Fasting Glucose Estimat Average Glucose 157 Hemoglobin A1c % 7.1 Calcium 9.0 COVID-19 (JOSE) [email or web address] Blood Type Antibody Screen 12/26/20 12/26/20 12/26/20 11:06 16:03 20:48 WBC RBC Hgb Hct MCV MCH MCHC RDW Plt Count MPV Immature Gran % (Auto) Neut % (Auto) Lymph % (Auto) [place] % (Auto) Eos % (Auto) Baso % (Auto) Lymph # (Auto) [place] # (Auto) Eos # (Auto) Baso # (Auto) Abs Immat Gran (auto) Absolute Neuts (auto) Absolute Nucleated RBC Nucleated RBC % (auto) Smear Tech's Comments PT INR APTT Sodium Potassium Chloride Carbon Dioxide Anion Gap BUN Creatinine Estim Creat Clear Calc Estimated GFR POC Glucose 239 H 215 H 183 H Random Glucose Fasting Glucose Estimat Average Glucose Hemoglobin A1c % Calcium COVID-19 (JOSE) [employer] Blood Type Antibody Screen 12/27/20 12/27/20 12/27/20 05:47 05:47 07:24 WBC 10.4 RBC 3.55 L Hgb 10.6 L Hct 32.7 L MCV 92.1 MCH 29.9 MCHC 32.4 RDW 12.4 Plt Count 332 MPV 10.0 Immature Gran % (Auto) Neut % (Auto) Lymph % (Auto) [place] % (Auto) Eos % (Auto) Baso % (Auto) Lymph # (Auto) [place] # (Auto) Eos # (Auto) Baso # (Auto) Abs Immat Gran (auto) Absolute Neuts (auto) Absolute Nucleated RBC 0.000 Nucleated RBC % (auto) 0.0 Smear Tech's Comments PT INR APTT Sodium 135 Potassium 4.9 Chloride 99 Carbon Dioxide 27 Anion Gap 14 BUN 24 H Creatinine 1.09 Estim Creat Clear Calc 96.3 Estimated GFR > 60 POC Glucose 146 H Random Glucose 162 H Fasting Glucose Estimat Average Glucose Hemoglobin A1c % Calcium 8.9 COVID-19 (JOSE) [email or web address] Blood Type Antibody Screen 12/27/20 12/27/20 12/27/20 11:35 16:11 19:52 WBC RBC Hgb Hct MCV MCH MCHC RDW Plt Count MPV Immature Gran % (Auto) Neut % (Auto) Lymph % (Auto) [place] % (Auto) Eos % (Auto) Baso % (Auto) Lymph # (Auto) [place] # (Auto) Eos # (Auto) Baso # (Auto) Abs Immat Gran (auto) Absolute Neuts (auto) Absolute Nucleated RBC Nucleated RBC % (auto) Smear Tech's Comments PT INR APTT Sodium Potassium Chloride Carbon Dioxide Anion Gap BUN Creatinine Estim Creat Clear Calc Estimated GFR POC Glucose 184 H 203 H 303 H Random Glucose Fasting Glucose Estimat Average Glucose Hemoglobin A1c % Calcium COVID-19 (JOSE) [email or web address] Blood Type Antibody Screen 12/28/20 12/28/20 12/28/20 07:09 10:58 16:45 WBC RBC Hgb Hct MCV MCH MCHC RDW Plt Count MPV Immature Gran % (Auto) Neut % (Auto) Lymph % (Auto) [place] % (Auto) Eos % (Auto) Baso % (Auto) Lymph # (Auto) [place] # (Auto) Eos # (Auto) Baso # (Auto) Abs Immat Gran (auto) Absolute Neuts (auto) Absolute Nucleated RBC Nucleated RBC % (auto) Smear Tech's Comments PT INR APTT Sodium Potassium Chloride Carbon Dioxide Anion Gap BUN Creatinine Estim Creat Clear Calc Estimated GFR POC Glucose 176 H 252 H 309 H Random Glucose Fasting Glucose Estimat Average Glucose Hemoglobin A1c % Calcium COVID-19 (JOSE) [employer] Blood Type Antibody Screen 12/28/20 12/29/20 12/29/20 20:05 07:13 11:06 WBC RBC Hgb Hct MCV MCH MCHC RDW Plt Count MPV Immature Gran % (Auto) Neut % (Auto) Lymph % (Auto) [place] % (Auto) Eos % (Auto) Baso % (Auto) Lymph # (Auto) [place] # (Auto) Eos # (Auto) Baso # (Auto) Abs Immat Gran (auto) Absolute Neuts (auto) Absolute Nucleated RBC Nucleated RBC % (auto) Smear Tech's Comments PT INR APTT Sodium Potassium Chloride Carbon Dioxide Anion Gap BUN Creatinine Estim Creat Clear Calc Estimated GFR POC Glucose 350 H* 154 H 295 H Random Glucose Fasting Glucose Estimat Average Glucose Hemoglobin A1c % Calcium COVID-19 (JOSE) [employer] Blood Type Antibody Screen 12/29/20 12/29/20 12/30/20 16:27 20:35 07:18 WBC RBC Hgb Hct MCV MCH MCHC RDW Plt Count MPV Immature Gran % (Auto) Neut % (Auto) Lymph % (Auto) [place] % (Auto) Eos % (Auto) Baso % (Auto) Lymph # (Auto) [place] # (Auto) Eos # (Auto) Baso # (Auto) Abs Immat Gran (auto) Absolute Neuts (auto) Absolute Nucleated RBC Nucleated RBC % (auto) Smear Tech's Comments PT INR APTT Sodium Potassium Chloride Carbon Dioxide Anion Gap BUN Creatinine Estim Creat Clear Calc Estimated GFR POC Glucose 265 H 219 H 151 H Random Glucose Fasting Glucose Estimat Average Glucose Hemoglobin A1c % Calcium COVID-19 (JOSE) [email or web address] Blood Type Antibody Screen 12/30/20 12/30/20 12/30/20 11:24 17:25 20:23 WBC RBC Hgb Hct MCV MCH MCHC RDW Plt Count MPV Immature Gran % (Auto) Neut % (Auto) Lymph % (Auto) [place] % (Auto) Eos % (Auto) Baso % (Auto) Lymph # (Auto) [place] # (Auto) Eos # (Auto) Baso # (Auto) Abs Immat Gran (auto) Absolute Neuts (auto) Absolute Nucleated RBC Nucleated RBC % (auto) Smear Tech's Comments PT INR APTT Sodium Potassium Chloride Carbon Dioxide Anion Gap BUN Creatinine Estim Creat Clear Calc Estimated GFR POC Glucose 135 H 118 H 199 H Random Glucose Fasting Glucose Estimat Average Glucose Hemoglobin A1c % Calcium COVID-19 (JOSE) [employer] Blood Type Antibody Screen 12/31/20 12/31/20 12/31/20 06:06 06:06 07:19 WBC 8.1 RBC 3.71 L Hgb 11.1 L Hct 34.4 L MCV 92.7 MCH 29.9 MCHC 32.3 RDW 12.1 Plt Count 268 MPV 10.4 Immature Gran % (Auto) Neut % (Auto) Lymph % (Auto) [place] % (Auto) Eos % (Auto) Baso % (Auto) Lymph # (Auto) [place] # (Auto) Eos # (Auto) Baso # (Auto) Abs Immat Gran (auto) Absolute Neuts (auto) Absolute Nucleated RBC 0.000 Nucleated RBC % (auto) 0.0 Smear Tech's Comments PT INR APTT Sodium 135 Potassium 4.5 Chloride 101 Carbon Dioxide 23 Anion Gap 16 BUN 23 H Creatinine 0.93 Estim Creat Clear Calc 111.9 Estimated GFR > 60 POC Glucose 151 H Random Glucose 166 H Fasting Glucose Estimat Average Glucose Hemoglobin A1c % Calcium 8.9 COVID-19 (JOSE) [employer] Blood Type Antibody Screen 12/31/20 12/31/20 12/31/20 11:21 16:05 20:02 WBC RBC Hgb Hct MCV MCH MCHC RDW Plt Count MPV Immature Gran % (Auto) Neut % (Auto) Lymph % (Auto) [place] % (Auto) Eos % (Auto) Baso % (Auto) Lymph # (Auto) [place] # (Auto) Eos # (Auto) Baso # (Auto) Abs Immat Gran (auto) Absolute Neuts (auto) Absolute Nucleated RBC Nucleated RBC % (auto) Smear Tech's Comments PT INR APTT Sodium Potassium Chloride Carbon Dioxide Anion Gap BUN Creatinine Estim Creat Clear Calc Estimated GFR POC Glucose 236 H 288 H 229 H Random Glucose Fasting Glucose Estimat Average Glucose Hemoglobin A1c % Calcium COVID-19 (JOSE) [email or web address] Application [facility] Blood Type Antibody Screen 01/01/21 01/01/21 01/01/21 07:22 10:02 11:08 WBC RBC Hgb Hct MCV MCH MCHC RDW Plt Count MPV Immature Gran % (Auto) Neut % (Auto) Lymph % (Auto) [place] % (Auto) Eos % (Auto) Baso % (Auto) Lymph # (Auto) [place] # (Auto) Eos # (Auto) Baso # (Auto) Abs Immat Gran (auto) Absolute Neuts (auto) Absolute Nucleated RBC Nucleated RBC % (auto) Smear Tech's Comments PT INR APTT Sodium Potassium Chloride Carbon Dioxide Anion Gap BUN Creatinine Estim Creat Clear Calc Estimated GFR POC Glucose 120 H 241 H Random Glucose Fasting Glucose Estimat Average Glucose Hemoglobin A1c % Calcium COVID-19 (JOSE) COVID-[address] [facility] Blood Type O Positive Antibody Screen NEGATIVE 01/01/21 01/01/21 01/02/21 16:24 20:07 06:21 WBC 8.6 RBC 3.16 L Hgb 9.7 L Hct 29.2 L MCV 92.4 MCH 30.7 MCHC 33.2 RDW 12.1 Plt Count 300 MPV 9.7 Immature Gran % (Auto) 0.6 H Neut % (Auto) 57.1 Lymph % (Auto) 27.1 [place] % (Auto) 8.8 Eos % (Auto) 5.7 H Baso % (Auto) 0.7 Lymph # (Auto) 2.3 [place] # (Auto) 0.8 Eos # (Auto) 0.5 H Baso # (Auto) 0.1 Abs Immat Gran (auto) 0.05 H Absolute Neuts (auto) 4.9 Absolute Nucleated RBC 0.000 Nucleated RBC % (auto) 0.0 Smear Tech's Comments VERIFIED PT INR APTT Sodium Potassium Chloride Carbon Dioxide Anion Gap BUN Creatinine Estim Creat Clear Calc Estimated GFR POC Glucose 259 H 301 H Random Glucose Fasting Glucose Estimat Average Glucose Hemoglobin A1c % Calcium COVID-19 (JOSE) [email or web address] Blood Type Antibody Screen 01/02/21 01/02/21 01/02/21 06:21 07:16 10:45 WBC RBC Hgb Hct MCV MCH MCHC RDW Plt Count MPV Immature Gran % (Auto) Neut % (Auto) Lymph % (Auto) [place] % (Auto) Eos % (Auto) Baso % (Auto) Lymph # (Auto) [place] # (Auto) Eos # (Auto) Baso # (Auto) Abs Immat Gran (auto) Absolute Neuts (auto) Absolute Nucleated RBC Nucleated RBC % (auto) Smear Tech's Comments PT INR APTT Sodium 139 Potassium 4.2 Chloride 104 Carbon Dioxide 26 Anion Gap 13 BUN 12 Creatinine 0.88 Estim Creat Clear Calc 116.8 Estimated GFR > 60 POC Glucose 103 94 Random Glucose Fasting Glucose 111 H Estimat Average Glucose Hemoglobin A1c % Calcium 8.7 COVID-19 (JOSE) COVID-19 [facility] Blood Type Antibody Screen Airway Mallampati Class: II TM Dist: >3cm Neck ROM: Full
--- NOTE | 2021-01-02 13:33 | MHC.CM.PN ---
REFERRALS PLACED TO [facility] FOR ACUTE REHAB PER PT REQUEST, PER CM CONVERSATION W/[facility] ON 01/01/21 THEY CAN APPROVE AN ACUTE REHAB STAY. CM WILL CONT TO FOLLOW D/C NEEDS.
--- NOTE | 2021-01-02 14:31 | W.PM.OPN ---
Operative Note Operative Note Date of Service: 01/02/21 Narrative: Operative note by [facility] Preoperative diagnosis: Atherosclerosis with nonhealing left foot ulcer Postoperative diagnosis: Same Procedure: Left below-knee amputation Surgeon:Cameron Figueroa M.D. Blocker And Cutter Contact Lens: Marjan Anesthesia: General Specimens: 1 Drains: None Estimated blood loss: 750 mL Indications: 61-year-old diabetic gentleman underwent left great toe amputation. He had surrounding cellulitis and it was poorly healing. He underwent angiogram which demonstrated very poor runoff. He now presents for below-knee amputation. The patient has signed the informed consent after reviewing risks, complications, benefits, and alternatives previously discussed with the patient in my office. The patient was given the opportunity to ask any additional questions or voice any concerns. All questions were answered to the patient's satisfaction. Procedure in detail: Patient was taken to the operating room prior to which a time-out was called for patient identification and site verification. Left leg was prepped and draped in standard surgical fashion. Curvilinear incision was made approximately 10 cm below the tibial tuberosity. Posterior flap was created. We using electrocautery wound went down through skin subQ and muscle. We were able to obtain hemostasis. We E were able to identify the tibial vessels and suture ligate these with silk ties. Once this was done a reverse hockey stick incision was made over the tibia. In a similar fashion approximately 2-3 inches we made a power saw cut through the fibula. Once this was done at the posterior flap was created and the leg was removed. Upon remove all there were a vessels that were bleeding and had to be once again suture ligated. Adequate hemostasis was achieved. The bony edges were filed down. Once adequate hemostasis was achieved deep layer was reapproximated using 2 0 Polysorb superficial layer with 3 0 poly for Sorb finally skin with skin clips. Xeroform and is trial dressing were applied. At the end of the case sponge needle instrument counts were correct. Patient tolerated the procedure well. Returned to recovery with stable vitals. This note is constructed using voice recognition software. While every effort has been made to ensure accuracy, carding machine operator errors may have been included. Thank you for allowing me to participate in the care of your patient. Yours sincerely, Cameron Figueroa MD, FACS, R.P.V.I.
[2021-01-02] MEDS: fentaNYL citrate/PF 100 MCG/2 ML VIAL 50 MCG IVPUSH ×3 (14:46→15:33)
[2021-01-02] MEDS: DAPTOmycin 500 MG in 0.9 % Sodium Chloride 50 ML 100 MG IV (14:50)
[2021-01-02] MEDS: oxyCODONE HCl Immed Release 5 MG TABLET 10 MG PO (15:26)
[2021-01-02 15:50] LABS: Basophils Absolute Auto 0.1 X10*3/uL (0.0-0.2); Basophils Percent Auto 0.6 % (0-2); Eosinophils Absolute Auto 0.3 X10*3/uL (0.0-0.4); Hematocrit 28.3 % (42-52); Hemoglobin 9.2 g/dl (14.0-18.0); Imm Gran Abs Auto 0.08 X10*3/uL (0.00-0.03); Imm Gran Pct Auto 0.8 % (0.0-0.4); Lymphocytes Absolute Auto 2.4 X10*3/uL (1.2-4.9); Lymphocytes Percent Auto 24.1 % (20-40); MANUAL DIFF FLAG SCAN; Mean Corpuscular HGB Conc 32.5 g/dl (31.0-36.0); Mean Corpuscular Hemoglobin 30.4 pg (27.0-33.0); Mean Corpuscular Volume 93.4 fL (80-98); Mean Platelet Volume 9.7 fL (9.4-12.4); Monocytes Absolute Auto 0.8 X10*3/uL (0.1-1.2); Monocytes Percent Auto 7.7 % (2-11); Neutrophils Absolute Auto 6.3 X10*3/uL (2.0-8.3); Neutrophils Percent Auto 63.8 % (45-73); Platelet Count 293 X10*3/uL (160-400); Red Blood Count 3.03 X10*6/uL (4.60-5.80); Red Cell Distribution Width 12.2 % (11.0-16.0); SCAN SMEAR FLAG 1; White Blood Count 9.9 X10*3/uL (4.8-10.8)
[2021-01-02 16:32] LABS: Glucose, Whole Blood 124 mg/dL (60-115)
[2021-01-02 16:32] LABS: SLIDE REVIEW VERIFIED
[2021-01-02] MEDS: Insulin Lispro 100 UNIT/ML 3 ML VIAL SUBCUT ×2 (16:37→20:47)
[2021-01-02] MEDS: Morphine Sulfate 4 MG/ML CARTRIDGE IVPUSH ×2 (16:41→19:55)
[2021-01-02] MEDS: Docusate Sodium 100 MG CAPSULE PO (19:55)
[2021-01-02] MEDS: 0.9 % Sodium Chloride Flush 3 ML SYRINGE IVFLUSH (19:55)
[2021-01-02] MEDS: Heparin Sodium,Porcine 5,000 UNIT/ML VIAL 5000 UNIT SUBCUT (19:55)
[2021-01-02 20:30] LABS: Glucose, Whole Blood 180 mg/dL (60-115)
[2021-01-02] MEDS: Melatonin 3 MG TABLET 6 MG PO (20:46)
[2021-01-02] MEDS: Insulin Glargine,Hum.rec.anlog 100 UNIT/ML 10 ML VIAL 35 UNIT SUBCUT (20:46)
[2021-01-03] VITALS (10 sets, daily range): BP systolic 101–127; BP diastolic 56–66; PULSE 75–90; RESP 18–20; TEMP 36.3–37.1; O2SAT 93–98
[2021-01-03] MEDS: Morphine Sulfate 4 MG/ML CARTRIDGE IVPUSH ×2 (00:16→03:06)
[2021-01-03] MEDS: Heparin Sodium,Porcine 5,000 UNIT/ML VIAL 5000 UNIT SUBCUT ×3 (03:07→21:10)
[2021-01-03 06:38] LABS: Basophils Absolute Auto 0.1 X10*3/uL (0.0-0.2); Basophils Percent Auto 0.5 % (0-2); Eosinophils Absolute Auto 0.3 X10*3/uL (0.0-0.4); Eosinophils Percent Auto 3.2 % (0-4); Hematocrit 25.7 % (42-52); Hemoglobin 8.3 g/dl (14.0-18.0); Imm Gran Abs Auto 0.05 X10*3/uL (0.00-0.03); Imm Gran Pct Auto 0.5 % (0.0-0.4); Lymphocytes Absolute Auto 2.5 X10*3/uL (1.2-4.9); Lymphocytes Percent Auto 26.1 % (20-40); MANUAL DIFF FLAG SCAN; Mean Corpuscular HGB Conc 32.3 g/dl (31.0-36.0); Mean Corpuscular Hemoglobin 30.1 pg (27.0-33.0); Mean Corpuscular Volume 93.1 fL (80-98); Monocytes Absolute Auto 0.9 X10*3/uL (0.1-1.2); Monocytes Percent Auto 9.5 % (2-11); Neutrophils Absolute Auto 5.7 X10*3/uL (2.0-8.3); Neutrophils Percent Auto 60.2 % (45-73); Platelet Count 320 X10*3/uL (160-400); Red Blood Count 2.76 X10*6/uL (4.60-5.80); Red Cell Distribution Width 12.4 % (11.0-16.0); SCAN SMEAR FLAG 1; White Blood Count 9.5 X10*3/uL (4.8-10.8)
[2021-01-03 07:14] LABS: SLIDE REVIEW VERIFIED
[2021-01-03 07:29] LABS: Anion Gap 13 (12-20); Blood Urea Nitrogen 14 mg/dL (9-16); Calcium 8.5 mg/dL (8.4-10.2); Carbon Dioxide 27 mmol/L (22-29); Chloride 101 mmol/L (96-108); Creatinine Clr Calc Pharmacy 110.5; Estimated Glomerular Filt Rate > 60; Glucose Fasting 157 mg/dL (60-99); Sodium 136 mmol/L (135-145)
[2021-01-03 08:05] LABS: Glucose, Whole Blood 158 mg/dL (60-115)
[2021-01-03] MEDS: oxyCODONE HCl Immed Release 5 MG TABLET 7.5 MG PO ×4 (08:19→23:42)
[2021-01-03] MEDS: Docusate Sodium 100 MG CAPSULE PO ×2 (08:20→21:11)
[2021-01-03] MEDS: polyethylene glycoL 3350 17 GM POWD.PACK PO (08:20)
[2021-01-03] MEDS: 0.9 % Sodium Chloride Flush 3 ML SYRINGE IVFLUSH ×3 (08:20→23:44)
[2021-01-03] MEDS: Gabapentin 600 MG TABLET PO (08:20)
[2021-01-03] MEDS: Aspirin Enteric Coated 81 MG TABLET.DR PO (08:20)
[2021-01-03] MEDS: Insulin Glargine,Hum.rec.anlog 100 UNIT/ML 10 ML VIAL 60 UNIT SUBCUT (08:20)
[2021-01-03] MEDS: Insulin Lispro 100 UNIT/ML 3 ML VIAL SUBCUT ×4 (08:21→21:11)
[2021-01-03] MEDS: Milk of Magnesia 30 ML ORAL.SUSP PO (08:26)
--- NOTE | 2021-01-03 09:21 | HO.PM.IMPN ---
Subjective Subjective Date of Service: 01/03/21 Interval History: bka site pain Cardiovascular Cardiovascular: Reports no additional cardiovascular complaints Gastrointestinal Gastrointestinal: Reports no additional gastrointestinal complaints Physical Exam Vital Signs: Vital Signs: Last Vital Signs Temp 97.3 F 01/03/21 07:59 Pulse 80 01/03/21 07:59 Resp 18 01/03/21 07:59 BP 127/66 01/03/21 08:00 Pulse Ox 98 01/03/21 08:00 Oxygen Flow Rate 1 12/23/20 09:17 Body Mass Index 32.2 Gen: in no acute distress HEENT: sclera anicteric, moist mucus membranes Neck: supple Lungs: clear to auscultation bilaterally Heart: regular rate and rhythm, no murmurs Abd: soft, non-tender, non-distended Ext: bilateral bka Skin: warm/well-perfused Neuro: alert and oriented x3, no focal findings Psych: appropriate affect Objective Data Current Medications Generic Name Dose Route Start Last Admin Trade Name Freq PRN Reason Stop Dose Admin Acetaminophen 650 mg 12/23/20 11:10 Acetaminophen 325 Mg Tablet PO Q6H PRN Pain, Mild (Pain Scale 1-3) Aspirin 81 mg 12/26/20 14:30 01/03/21 08:20 Aspirin Enteric Coated 81 Mg Tablet.Dr PO 81 mg DAILY TJ Administration Docusate Sodium 100 mg 12/28/20 21:00 01/03/21 08:20 Docusate Sodium 100 Mg Capsule PO 100 mg BID TJ Administration Gabapentin 600 mg 12/24/20 09:00 01/03/21 08:20 Gabapentin 600 Mg Tablet PO 600 mg DAILY TJ Administration Heparin Sodium (Porcine) 5,000 unit 12/23/20 12:00 01/03/21 03:07 Heparin Sodium,Porcine 5,000 Unit/Ml Vial SUBCUT 5,000 unit Q8H TJ Administration Insulin Glargine 35 unit 12/23/20 21:00 01/02/21 20:46 Insulin Glargine,Hum.Rec.Anlog 100 Unit/Ml 10 Ml Vial SUBCUT 35 unit BEDTIME TJ Administration Insulin Glargine 60 unit 12/31/20 09:00 01/03/21 08:20 Insulin Glargine,Hum.Rec.Anlog 100 Unit/Ml 10 Ml Vial SUBCUT 60 unit DAILY TJ Administration Insulin Human Lispro 0 unit 12/28/20 16:30 01/03/21 08:21 Insulin Lispro 100 Unit/Ml 3 Ml Vial SUBCUT 2 unit QIDACHS TJ Administration Protocol Magnesium Hydroxide 30 ml 12/30/20 10:11 01/03/21 08:26 Milk Of Magnesia 30 Ml Oral.Susp PO 30 ml TID PRN Administration Constipation Melatonin 6 mg 01/02/21 20:02 01/02/21 20:46 Melatonin 3 Mg Tablet PO 6 mg BEDTIME PRN Administration Insomnia Morphine Sulfate 4 mg 12/30/20 15:30 01/03/21 03:06 Morphine Sulfate 4 Mg/Ml Cartridge IVPUSH 4 mg Q2H PRN Administration Pain, Severe (Pain Scale 7-10) Oxycodone HCl 7.5 mg 01/03/21 08:02 01/03/21 08:19 Oxycodone Hcl Immed Release 5 Mg Tablet PO 7.5 mg Q4H PRN Administration pain Pharmacy Consult 1 each 12/23/20 13:54 Consult Rx Perform Med Rec MISCELLANE ONCE PRN Consult order Polyethylene Glycol 17 gm 12/30/20 10:15 01/03/21 08:20 Polyethylene Glycol 3350 17 Gm Powd.Pack PO 17 gm DAILY TJ Administration Sodium Chloride 3 ml 12/23/20 16:00 01/03/21 08:20 0.9 % Sodium Chloride Flush 3 Ml Syringe IVFLUSH 3 ml QSHIFT TJ Administration Labs CBC & Chem 7: 01/03/21 06:04 01/03/21 06:04 Assessment and Plan (1) Diabetic foot infection: Status: Acute (2) PVD (peripheral vascular disease): Status: Acute (3) Status post below-knee amputation: Status: Acute (4) MGUS (monoclonal gammopathy of unknown significance): Status: Acute (5) Drug-induced thrombocytopenia: Status: Acute (6) Hyperlipidemia: Status: Acute (7) Hypertension: Status: Acute Assessment and Plan: 60yo M with DM2 admitted after L great toe amputation for concern of nonhealing site on vascular surgery service, medicine consulting for management of comorbid issues L diabetic foot infection, nonhealing great toe amputation site no fever, WBC normalized, BCx x2 negative POD 1 s/p left BKA now off pip/malik + daptomycin DM2, A1c 7.1 (12/26/20) -Lantus/Humalog and glycemic control is good now; held MTF for angiogram PAD - continue ASA; statin DM neuropathy gabapentin constipation - likely due to narcotic use. continue lactulose, MOM + Miralax. VTE ppx - UFH dispo - will need SNF for wound care + PT
--- NOTE | 2021-01-03 10:24 | HO.POSTANES ---
Post Anesthesia Evaluation Post Anesthesia Evaluation Vital Signs: Vital Signs Temp Pulse Resp BP Pulse Ox 01/03/21 08:00 127/66 98 01/03/21 07:59 97.3 F 80 18 127/66 93 01/03/21 02:55 97.5 F 78 20 101/56 L 96 01/03/21 00:00 97.5 F 75 18 106/56 L 97 Anesthesia: General Endotracheal-GETA Mental Status: Awake Pain Control: Satisfactory Nausea/Vomiting: None Hydration: Adequate Anesthesia-Related Issues: No Anes. Related Issues
--- NOTE | 2021-01-03 11:05 | MHC.CM.PN ---
CLINICAL UPDATES SENT TO ACUTE REH[facility] REFERRALS. PLAN IS FOR DISCHARGE WEDNESDAY. ONCE P.T. EVAL IS AVAILABLE, CASE MANAGEMENT WILL UPLOAD
--- NOTE | 2021-01-03 11:17 | HO.VASCPN ---
Subjective Subjective Date of Service: 01/03/21 Patient reports: no new complaints and feels better Interval history: Patient is postop day 1 status post left below-knee amputation. No issues overnight. Resting relatively comfortably. Tolerating regular diet. Physical Exam Vital Signs: Vital Signs: Last Vital Signs Temp 97.3 F 01/03/21 07:59 Pulse 80 01/03/21 07:59 Resp 18 01/03/21 07:59 BP 127/66 01/03/21 08:00 Pulse Ox 98 01/03/21 08:00 Oxygen Flow Rate 1 12/23/20 09:17 Body Mass Index 32.2 Const: General: cooperative, healthy appearing and no acute distress Orientation/consciousness: oriented to person, oriented to place and oriented to time HENMT: Head: Yes normal to inspection Neck: Carotids: no bruits Chest: Chest palpation & inspection: normal inspection of the chest Resp: Effort & Inspection: normal respiratory effort and able to speak in complete sentences Auscultation: clear to auscultation bilaterally Cardio: Rate: regular rate Heart sounds: S1 normal heart sound present and S2 normal heart sound present GI: Inspection: Yes normal to inspection Skin: General skin exam: no rashes or lesions noted Wounds: amputation site (Dressing clean dry intact) Neuro: General: oriented to person, oriented to place, oriented to time and CN's II-XI intact bilaterally Extrem: General: Yes normal to inspection, Yes full ROM and Yes no clubbing, cyanosis or edema Psych: Appearance: grossly normal and well kempt Speech and movement: Normal speech and movement present Affect: normal affect Progress Note: A&P Assessment and plan (1) Status post below-knee amputation: Status: Acute Assessment and Plan: Patient doing well status post left below-knee amputation. No significant pain issues. Tolerating a diet. Will plan for dressing change on Wednesday. Will have PT OT evaluation. He may require rehab after hospitalization due to his bilateral amputation. Hopefully we will be able to discharge him early next week. Thank you for allowing us to assist in his care. If there are any questions or concerns please do not hesitate to contact us. Fall Risk Details Current Medications: Current Medications Generic Name Dose Route Start Last Admin Trade Name Freq PRN Reason Stop Dose Admin Acetaminophen 650 mg 12/23/20 11:10 Acetaminophen 325 Mg Tablet PO Q6H PRN Pain, Mild (Pain Scale 1-3) Aspirin 81 mg 12/26/20 14:30 01/03/21 08:20 Aspirin Enteric Coated 81 Mg Tablet.Dr PO 81 mg DAILY TJ Administration Atorvastatin Calcium 40 mg 01/03/21 21:00 Atorvastatin Calcium 40 Mg Tablet PO BEDTIME TJ Docusate Sodium 100 mg 12/28/20 21:00 01/03/21 08:20 Docusate Sodium 100 Mg Capsule PO 100 mg BID TJ Administration Gabapentin 600 mg 12/24/20 09:00 01/03/21 08:20 Gabapentin 600 Mg Tablet PO 600 mg DAILY TJ Administration Heparin Sodium (Porcine) 5,000 unit 12/23/20 12:00 01/03/21 03:07 Heparin Sodium,Porcine 5,000 Unit/Ml Vial SUBCUT 5,000 unit Q8H TJ Administration Insulin Glargine 35 unit 12/23/20 21:00 01/02/21 20:46 Insulin Glargine,Hum.Rec.Anlog 100 Unit/Ml 10 Ml Vial SUBCUT 35 unit BEDTIME [facility] Administration Insulin Glargine 60 unit 12/31/20 09:00 01/03/21 08:20 Insulin Glargine,Hum.Rec.Anlog 100 Unit/Ml 10 Ml Vial SUBCUT 60 unit DAILY [facility] Administration Insulin Human Lispro 0 unit 12/28/20 16:30 01/03/21 08:21 Insulin Lispro 100 Unit/Ml 3 Ml Vial SUBCUT 2 unit QIDACHS [facility] Administration Protocol Lisinopril 5 mg 01/04/21 09:00 Lisinopril 5 Mg Tablet PO DAILY [facility] Protocol Magnesium Hydroxide 30 ml 12/30/20 10:11 01/03/21 08:26 Milk Of Magnesia 30 Ml Oral.Susp PO 30 ml TID PRN Administration Constipation Melatonin 6 mg 01/02/21 20:02 01/02/21 20:46 Melatonin 3 Mg Tablet PO 6 mg BEDTIME PRN Administration Insomnia Morphine Sulfate 4 mg 12/30/20 15:30 01/03/21 03:06 Morphine Sulfate 4 Mg/Ml Cartridge IVPUSH 4 mg Q2H PRN Administration Pain, Severe (Pain Scale 7-10) Oxycodone HCl 7.5 mg 01/03/21 08:02 01/03/21 08:19 Oxycodone Hcl Immed Release 5 Mg Tablet PO 7.5 mg Q4H PRN Administration pain Pharmacy Consult 1 each 12/23/20 13:54 Consult Rx Perform Med Rec MISCELLANE ONCE PRN Consult order Polyethylene Glycol 17 gm 12/30/20 10:15 01/03/21 08:20 Polyethylene Glycol 3350 17 Gm Powd.Pack PO 17 gm DAILY TJ Administration Sodium Chloride 3 ml 12/23/20 16:00 01/03/21 08:20 0.9 % Sodium Chloride Flush 3 Ml Syringe IVFLUSH 3 ml QSHIFT TJ Administration Time Spent With Patient Time: Total time spent is greater than 50% in coordination of care (as documented) at patient's floor/unit and/or counseling patient: Time with patient: 15 - 24 minutes
[2021-01-03 11:26] LABS: Glucose, Whole Blood 279 mg/dL (60-115)
--- NOTE | 2021-01-03 12:17 | MHC.CM.PN ---
PATIENT'SFIRST CHOICE IS [facility]. PLAN IS FOR FACILITY TO ATTEMPT AUTH ON WEDNESDAY.
[2021-01-03 16:28] LABS: Glucose, Whole Blood 280 mg/dL (60-115)
[2021-01-03 20:35] LABS: Glucose, Whole Blood 249 mg/dL (60-115)
[2021-01-03] MEDS: Atorvastatin Calcium 40 MG TABLET PO (21:11)
[2021-01-03] MEDS: Insulin Glargine,Hum.rec.anlog 100 UNIT/ML 10 ML VIAL 35 UNIT SUBCUT (21:11)
[2021-01-03] MEDS: Acetaminophen 325 MG TABLET 650 MG PO (23:43)
[2021-01-03] MEDS: Melatonin 3 MG TABLET 6 MG PO (23:44)
[2021-01-04] VITALS (9 sets, daily range): BP systolic 103–125; BP diastolic 50–60; PULSE 72–81; RESP 18–20; TEMP 36.2–37.2; O2SAT 93–98
[2021-01-04] MEDS: Heparin Sodium,Porcine 5,000 UNIT/ML VIAL 5000 UNIT SUBCUT ×3 (05:39→20:44)
[2021-01-04 06:05] LABS: Hematocrit 23.3 % (42-52); Hemoglobin 7.7 g/dl (14.0-18.0); Mean Corpuscular Hemoglobin 30.6 pg (27.0-33.0); Mean Corpuscular Volume 92.5 fL (80-98); Mean Platelet Volume 10.1 fL (9.4-12.4); Platelet Count 294 X10*3/uL (160-400); Red Blood Count 2.52 X10*6/uL (4.60-5.80); Red Cell Distribution Width 12.4 % (11.0-16.0); White Blood Count 8.6 X10*3/uL (4.8-10.8)
[2021-01-04 06:26] LABS: Anion Gap 12 (12-20); Blood Urea Nitrogen 13 mg/dL (9-16); Calcium 8.5 mg/dL (8.4-10.2); Carbon Dioxide 29 mmol/L (22-29); Chloride 100 mmol/L (96-108); Creatinine Clr Calc Pharmacy 126.9; Estimated Glomerular Filt Rate > 60; Glucose Fasting 156 mg/dL (60-99); Potassium 4.5 mmol/L (3.3-5.1); Sodium 136 mmol/L (135-145)
[2021-01-04 07:34] LABS: Glucose, Whole Blood 148 mg/dL (60-115)
[2021-01-04] MEDS: Aspirin Enteric Coated 81 MG TABLET.DR PO (08:47)
[2021-01-04] MEDS: polyethylene glycoL 3350 17 GM POWD.PACK PO (08:47)
[2021-01-04] MEDS: lisinopriL 5 MG TABLET PO (08:47)
[2021-01-04] MEDS: Docusate Sodium 100 MG CAPSULE PO ×2 (08:47→20:44)
[2021-01-04] MEDS: Insulin Glargine,Hum.rec.anlog 100 UNIT/ML 10 ML VIAL 60 UNIT SUBCUT (08:47)
[2021-01-04] MEDS: 0.9 % Sodium Chloride Flush 3 ML SYRINGE IVFLUSH ×3 (08:47→20:46)
[2021-01-04] MEDS: oxyCODONE HCl Immed Release 5 MG TABLET 7.5 MG PO ×3 (08:53→19:19)
--- NOTE | 2021-01-04 09:19 | P.PNIM_ITS ---
Subjective Subjective Date of Service: 01/04/21 Interval History: left surgical site pain, manageable Cardiovascular Cardiovascular: Reports no additional cardiovascular complaints Gastrointestinal Gastrointestinal: Reports no additional gastrointestinal complaints Physical Exam Vital Signs: Vital Signs: Last Vital Signs Temp 98.0 F 01/04/21 08:00 Pulse 81 01/04/21 08:47 Resp 19 01/04/21 08:00 BP 114/56 L 01/04/21 08:47 Pulse Ox 98 01/04/21 09:00 Oxygen Flow Rate 1 12/23/20 09:17 Body Mass Index 32.2 Gen: in no acute distress HEENT: sclera anicteric, moist mucus membranes Neck: supple Lungs: clear to auscultation bilaterally Heart: regular rate and rhythm, no murmurs Abd: soft, non-tender, non-distended Ext: bilateral bka Skin: warm/well-perfused Neuro: alert and oriented x3, no focal findings Psych: appropriate affect Objective Data Current Medications Generic Name Dose Route Start Last Admin Trade Name Freq PRN Reason Stop Dose Admin Acetaminophen 650 mg 12/23/20 11:10 01/03/21 23:43 Acetaminophen 325 Mg Tablet PO 650 mg Q6H PRN Administration Pain, Mild (Pain Scale 1-3) Aspirin 81 mg 12/26/20 14:30 01/04/21 08:47 Aspirin Enteric Coated 81 Mg Tablet.Dr PO 81 mg DAILY TJ Administration Atorvastatin Calcium 40 mg 01/03/21 21:00 01/03/21 21:11 Atorvastatin Calcium 40 Mg Tablet PO 40 mg BEDTIME TJ Administration Docusate Sodium 100 mg 12/28/20 21:00 01/04/21 08:47 Docusate Sodium 100 Mg Capsule PO 100 mg BID TJ Administration Gabapentin 600 mg 12/24/20 09:00 01/04/21 08:55 Gabapentin 600 Mg Tablet PO Not Given DAILY TJ Heparin Sodium (Porcine) 5,000 unit 12/23/20 12:00 01/04/21 05:39 Heparin Sodium,Porcine 5,000 Unit/Ml Vial SUBCUT 5,000 unit Q8H TJ Administration Insulin Glargine 35 unit 12/23/20 21:00 01/03/21 21:11 Insulin Glargine,Hum.Rec.Anlog 100 Unit/Ml 10 Ml Vial SUBCUT 35 unit BEDTIME TJ Administration Insulin Glargine 60 unit 12/31/20 09:00 01/04/21 08:47 Insulin Glargine,Hum.Rec.Anlog 100 Unit/Ml 10 Ml Vial SUBCUT 60 unit DAILY TJ Administration Insulin Human Lispro 0 unit 12/28/20 16:30 01/04/21 07:50 Insulin Lispro 100 Unit/Ml 3 Ml Vial SUBCUT Not Given QIDACHS [facility] Protocol Lisinopril 5 mg 01/04/21 09:00 01/04/21 08:47 Lisinopril 5 Mg Tablet PO 5 mg DAILY TJ Administration Protocol Magnesium Hydroxide 30 ml 12/30/20 10:11 01/03/21 08:26 Milk Of Magnesia 30 Ml Oral.Susp PO 30 ml TID PRN Administration Constipation Melatonin 6 mg 01/02/21 20:02 01/03/21 23:44 Melatonin 3 Mg Tablet PO 6 mg BEDTIME PRN Administration Insomnia Morphine Sulfate 4 mg 12/30/20 15:30 01/03/21 03:06 Morphine Sulfate 4 Mg/Ml Cartridge IVPUSH 4 mg Q2H PRN Administration Pain, Severe (Pain Scale 7-10) Oxycodone HCl 7.5 mg 01/03/21 08:02 01/04/21 08:53 Oxycodone Hcl Immed Release 5 Mg Tablet PO 7.5 mg Q4H PRN Administration pain Pharmacy Consult 1 each 12/23/20 13:54 Consult Rx Perform Med Rec MISCELLANE ONCE PRN Consult order Polyethylene Glycol 17 gm 12/30/20 10:15 01/04/21 08:47 Polyethylene Glycol 3350 17 Gm Powd.Pack PO 17 gm DAILY TJ Administration Sodium Chloride 3 ml 12/23/20 16:00 01/04/21 08:47 0.9 % Sodium Chloride Flush 3 Ml Syringe IVFLUSH 3 ml QSHIFT TJ Administration Labs CBC & Chem 7: 01/04/21 05:19 01/04/21 05:19 Assessment and Plan (1) Diabetic foot infection: Status: Acute (2) PVD (peripheral vascular disease): Status: Acute (3) Status post below-knee amputation: Status: Acute (4) MGUS (monoclonal gammopathy of unknown significance): Status: Acute (5) Drug-induced thrombocytopenia: Status: Acute (6) Hyperlipidemia: Status: Acute (7) Hypertension: Status: Acute Assessment and Plan: 60yo M with DM2 admitted after L great toe amputation for concern of nonhealing site on vascular surgery service, medicine consulting for management of comorbid issues L diabetic foot infection, nonhealing great toe amputation site no fever, WBC normalized, BCx x2 negative POD 2 s/p left BKA no need for further antibiotics anemia hgb 7.7, asymptomatic, will hold off on transfusion for now, monitor, transfuse if < 7 DM2, A1c 7.1 (12/26/20) -Lantus/Humalog PAD - continue ASA; statin DM neuropathy gabapentin VTE ppx - UFH dispo - will need SNF for wound care + PT
[2021-01-04 11:54] LABS: Glucose, Whole Blood 204 mg/dL (60-115)
[2021-01-04] MEDS: Insulin Lispro 100 UNIT/ML 3 ML VIAL SUBCUT ×2 (12:00→20:45)
[2021-01-04] MEDS: Acetaminophen 325 MG TABLET 650 MG PO (13:41)
[2021-01-04 16:13] LABS: Glucose, Whole Blood 126 mg/dL (60-115)
[2021-01-04 20:32] LABS: Glucose, Whole Blood 163 mg/dL (60-115)
[2021-01-04] MEDS: Gabapentin 600 MG TABLET PO (20:44)
[2021-01-04] MEDS: Insulin Glargine,Hum.rec.anlog 100 UNIT/ML 10 ML VIAL 35 UNIT SUBCUT (20:45)
[2021-01-04] MEDS: Atorvastatin Calcium 40 MG TABLET PO (20:45)
[2021-01-05] VITALS (10 sets, daily range): BP systolic 91–115; BP diastolic 53–67; PULSE 68–97; RESP 16–18; TEMP 36.2–37; O2SAT 92–98
[2021-01-05] MEDS: Melatonin 3 MG TABLET 6 MG PO (00:24)
[2021-01-05] MEDS: oxyCODONE HCl Immed Release 5 MG TABLET 7.5 MG PO ×3 (00:25→19:12)
[2021-01-05] MEDS: Heparin Sodium,Porcine 5,000 UNIT/ML VIAL 5000 UNIT SUBCUT ×3 (04:28→20:50)
[2021-01-05 06:18] LABS: Hematocrit 22.6 % (42-52); Hemoglobin 7.5 g/dl (14.0-18.0); Mean Corpuscular HGB Conc 33.2 g/dl (31.0-36.0); Mean Corpuscular Hemoglobin 30.9 pg (27.0-33.0); Mean Platelet Volume 9.8 fL (9.4-12.4); Platelet Count 308 X10*3/uL (160-400); Red Blood Count 2.43 X10*6/uL (4.60-5.80); Red Cell Distribution Width 12.5 % (11.0-16.0); White Blood Count 7.5 X10*3/uL (4.8-10.8)
[2021-01-05 06:52] LABS: Anion Gap 10 (12-20); Blood Urea Nitrogen 13 mg/dL (9-16); Calcium 8.6 mg/dL (8.4-10.2); Carbon Dioxide 30 mmol/L (22-29); Chloride 100 mmol/L (96-108); Creatinine Clr Calc Pharmacy 120.9; Estimated Glomerular Filt Rate > 60; Glucose Fasting 146 mg/dL (60-99); Potassium 4.4 mmol/L (3.3-5.1); Sodium 136 mmol/L (135-145)
[2021-01-05 07:38] LABS: Glucose, Whole Blood 120 mg/dL (60-115)
[2021-01-05] MEDS: Insulin Lispro 100 UNIT/ML 3 ML VIAL SUBCUT ×4 (07:47→20:49)
[2021-01-05] MEDS: 0.9 % Sodium Chloride Flush 3 ML SYRINGE IVFLUSH ×3 (07:49→20:50)
[2021-01-05] MEDS: Insulin Glargine,Hum.rec.anlog 100 UNIT/ML 10 ML VIAL 60 UNIT SUBCUT (09:12)
[2021-01-05] MEDS: Docusate Sodium 100 MG CAPSULE PO ×2 (09:12→20:50)
[2021-01-05] MEDS: Aspirin Enteric Coated 81 MG TABLET.DR PO (09:12)
[2021-01-05] MEDS: polyethylene glycoL 3350 17 GM POWD.PACK PO (09:16)
--- NOTE | 2021-01-05 09:18 | HO.PM.IMPN ---
Subjective Subjective Date of Service: 01/05/21 Interval History: surgical iste pain Cardiovascular Cardiovascular: Reports no additional cardiovascular complaints Gastrointestinal Gastrointestinal: Reports no additional gastrointestinal complaints Physical Exam Vital Signs: Vital Signs: Last Vital Signs Temp 98.6 F 01/05/21 07:49 Pulse 68 01/05/21 09:15 Resp 17 01/05/21 07:49 BP 94/53 L 01/05/21 09:15 Pulse Ox 94 01/05/21 07:49 Oxygen Flow Rate 1 12/23/20 09:17 Body Mass Index 32.2 Gen: in no acute distress HEENT: sclera anicteric, moist mucus membranes Neck: supple Lungs: clear to auscultation bilaterally Heart: regular rate and rhythm, no murmurs Abd: soft, non-tender, non-distended Ext: bilateral bka Skin: warm/well-perfused Neuro: alert and oriented x3, no focal findings Psych: appropriate affect Objective Data Current Medications Generic Name Dose Route Start Last Admin Trade Name Freq PRN Reason Stop Dose Admin Acetaminophen 650 mg 12/23/20 11:10 01/04/21 13:41 Acetaminophen 325 Mg Tablet PO 650 mg Q6H PRN Administration Pain, Mild (Pain Scale 1-3) Aspirin 81 mg 12/26/20 14:30 01/05/21 09:12 Aspirin Enteric Coated 81 Mg Tablet.Dr PO 81 mg DAILY TJ Administration Atorvastatin Calcium 40 mg 01/03/21 21:00 01/04/21 20:45 Atorvastatin Calcium 40 Mg Tablet PO 40 mg BEDTIME TJ Administration Docusate Sodium 100 mg 12/28/20 21:00 01/05/21 09:12 Docusate Sodium 100 Mg Capsule PO 100 mg BID TJ Administration Gabapentin 600 mg 01/04/21 21:00 01/04/21 20:44 Gabapentin 600 Mg Tablet PO 600 mg BEDTIME TJ Administration Heparin Sodium (Porcine) 5,000 unit 12/23/20 12:00 01/05/21 04:28 Heparin Sodium,Porcine 5,000 Unit/Ml Vial SUBCUT 5,000 unit Q8H TJ Administration Insulin Glargine 35 unit 12/23/20 21:00 01/04/21 20:45 Insulin Glargine,Hum.Rec.Anlog 100 Unit/Ml 10 Ml Vial SUBCUT 35 unit BEDTIME TJ Administration Insulin Glargine 60 unit 12/31/20 09:00 01/05/21 09:12 Insulin Glargine,Hum.Rec.Anlog 100 Unit/Ml 10 Ml Vial SUBCUT 60 unit DAILY TJ Administration Insulin Human Lispro 0 unit 12/28/20 16:30 01/05/21 07:47 Insulin Lispro 100 Unit/Ml 3 Ml Vial SUBCUT 2 unit QIDACHS TJ Administration Protocol Lisinopril 5 mg 01/04/21 09:00 01/05/21 09:15 Lisinopril 5 Mg Tablet PO Not Given DAILY TJ Protocol Magnesium Hydroxide 30 ml 12/30/20 10:11 01/03/21 08:26 Milk Of Magnesia 30 Ml Oral.Susp PO 30 ml TID PRN Administration Constipation Melatonin 6 mg 01/02/21 20:02 01/05/21 00:24 Melatonin 3 Mg Tablet PO 6 mg BEDTIME PRN Administration Insomnia Oxycodone HCl 7.5 mg 01/03/21 08:02 01/05/21 00:25 Oxycodone Hcl Immed Release 5 Mg Tablet PO 7.5 mg Q4H PRN Administration pain Pharmacy Consult 1 each 12/23/20 13:54 Consult Rx Perform Med Rec MISCELLANE ONCE PRN Consult order Polyethylene Glycol 17 gm 12/30/20 10:15 01/05/21 09:16 Polyethylene Glycol 3350 17 Gm Powd.Pack PO 17 gm DAILY TJ Administration Sodium Chloride 3 ml 12/23/20 16:00 01/05/21 07:49 0.9 % Sodium Chloride Flush 3 Ml Syringe IVFLUSH 3 ml QSHIFT TJ Administration Labs CBC & Chem 7: 01/05/21 05:45 01/05/21 05:45 Assessment and Plan (1) Diabetic foot infection: Status: Acute (2) PVD (peripheral vascular disease): Status: Acute (3) Status post below-knee amputation: Status: Acute (4) MGUS (monoclonal gammopathy of unknown significance): Status: Acute (5) Drug-induced thrombocytopenia: Status: Acute (6) Hyperlipidemia: Status: Acute (7) Hypertension: Status: Acute Assessment and Plan: 60yo M with DM2 admitted after L great toe amputation for concern of nonhealing site on vascular surgery service, medicine consulting for management of comorbid issues L diabetic foot infection, nonhealing great toe amputation site no fever, WBC normalized, BCx x2 negative POD 3 s/p left BKA no need for further antibiotics anemia hgb 7.5, asymptomatic, will hold off on transfusion for now, monitor, transfuse if < 7 DM2, A1c 7.1 (12/26/20) -Lantus/Humalog PAD - continue ASA; statin DM neuropathy gabapentin VTE ppx - UFH dispo - will need SNF for wound care + PT
[2021-01-05 11:30] LABS: Glucose, Whole Blood 261 mg/dL (60-115)
[2021-01-05] MEDS: Morphine Sulfate 2 MG/ML CARTRIDGE IVPUSH (11:31)
[2021-01-05 16:29] LABS: Glucose, Whole Blood 209 mg/dL (60-115)
[2021-01-05 20:25] LABS: Glucose, Whole Blood 252 mg/dL (60-115)
[2021-01-05] MEDS: Insulin Glargine,Hum.rec.anlog 100 UNIT/ML 10 ML VIAL 35 UNIT SUBCUT (20:49)
[2021-01-05] MEDS: Atorvastatin Calcium 40 MG TABLET PO (20:50)
[2021-01-05] MEDS: Gabapentin 600 MG TABLET PO (20:50)
[2021-01-06] VITALS (10 sets, daily range): BP systolic 98–126; BP diastolic 52–86; PULSE 72–84; RESP 16–19; TEMP 36–37.4; O2SAT 96–98
[2021-01-06] MEDS: Heparin Sodium,Porcine 5,000 UNIT/ML VIAL 5000 UNIT SUBCUT ×3 (03:49→20:40)
[2021-01-06 06:54] LABS: Hematocrit 22.5 % (42-52); Hemoglobin 7.3 g/dl (14.0-18.0); Mean Corpuscular HGB Conc 32.4 g/dl (31.0-36.0); Mean Corpuscular Hemoglobin 30.2 pg (27.0-33.0); Mean Platelet Volume 10.4 fL (9.4-12.4); Platelet Count 324 X10*3/uL (160-400); Red Blood Count 2.42 X10*6/uL (4.60-5.80); Red Cell Distribution Width 12.6 % (11.0-16.0); White Blood Count 8.1 X10*3/uL (4.8-10.8)
[2021-01-06 07:22] LABS: Anion Gap 13 (12-20); Blood Urea Nitrogen 16 mg/dL (9-16); Calcium 8.6 mg/dL (8.4-10.2); Carbon Dioxide 28 mmol/L (22-29); Chloride 98 mmol/L (96-108); Creatinine Clr Calc Pharmacy 115.5; Estimated Glomerular Filt Rate > 60; Glucose Fasting 229 mg/dL (60-99); Potassium 4.8 mmol/L (3.3-5.1); Sodium 134 mmol/L (135-145)
[2021-01-06 07:24] LABS: Glucose, Whole Blood 213 mg/dL (60-115)
[2021-01-06] MEDS: Insulin Lispro 100 UNIT/ML 3 ML VIAL SUBCUT ×4 (07:56→20:27)
[2021-01-06] MEDS: Insulin Glargine,Hum.rec.anlog 100 UNIT/ML 10 ML VIAL 60 UNIT SUBCUT (07:56)
[2021-01-06] MEDS: polyethylene glycoL 3350 17 GM POWD.PACK PO (07:57)
[2021-01-06] MEDS: 0.9 % Sodium Chloride Flush 3 ML SYRINGE IVFLUSH ×2 (07:57→16:38)
[2021-01-06] MEDS: lisinopriL 5 MG TABLET PO (07:57)
[2021-01-06] MEDS: Docusate Sodium 100 MG CAPSULE PO ×2 (07:57→20:18)
[2021-01-06] MEDS: Aspirin Enteric Coated 81 MG TABLET.DR PO (07:57)
[2021-01-06] MEDS: oxyCODONE HCl Immed Release 5 MG TABLET 7.5 MG PO ×2 (08:01→20:17)
[2021-01-06] MEDS: Acetaminophen 325 MG TABLET 650 MG PO (08:01)
[2021-01-06 08:21] LABS: Immature Retic Fraction 29.4 % (2.3-13.4); Retic HGB Equivalent 32.8 pg (30.0-35.0); Reticulocyte Percent 3.3 % (0.5-1.8); Reticulocytes Absolute 0.079 X10*6/uL (0.026-0.095)
[2021-01-06 08:33] LABS: Iron 28 mcg/dL (45-160); Lactate Dehydrogenase 135 U/L (118-273); Percent Iron Saturation 14 % (15-50); Total Iron Binding Capacity 196 mcg/dL (228-428); Unsaturated Iron Binding 168 ug/dL
[2021-01-06 08:53] LABS: Ferritin 326 ng/mL (20-250)
[2021-01-06 09:45] LABS: Vitamin B12 402 pg/mL (200-900)
[2021-01-06 12:20] LABS: Glucose, Whole Blood 280 mg/dL (60-115)
[2021-01-06 12:20] LABS: Glucose, Whole Blood 236 mg/dL (60-115)
[2021-01-06] MEDS: Sodium Phosphate,Mono-Dibasic 133 ML ENEMA PR (12:27)
--- NOTE | 2021-01-06 13:20 | HO.VASCPN ---
Subjective Subjective Date of Service: 01/07/21 Patient reports: no new complaints and feels better Interval history: Examined. No events over the weekend. Feels well. Pain well controlled. Does report some constipation. Physical Exam Vital Signs: Vital Signs: Last Vital Signs Temp 96.8 F 01/06/21 10:56 Pulse 72 01/06/21 10:56 Resp 18 01/06/21 10:56 BP 98/52 L 01/06/21 10:56 Pulse Ox 96 01/06/21 10:56 Oxygen Flow Rate 1 12/23/20 09:17 Body Mass Index 32.2 Const: General: cooperative, healthy appearing and no acute distress Orientation/consciousness: oriented to person, oriented to place and oriented to time HENMT: Head: Yes normal to inspection Neck: Carotids: no bruits Chest: Chest palpation & inspection: normal inspection of the chest Resp: Effort & Inspection: normal respiratory effort and able to speak in complete sentences Auscultation: clear to auscultation bilaterally Cardio: Rate: regular rate Heart sounds: S1 normal heart sound present and S2 normal heart sound present GI: Inspection: Yes normal to inspection Skin: General skin exam: no rashes or lesions noted Wounds: amputation site (Amp site healing well.) Neuro: General: oriented to person, oriented to place, oriented to time and CN's II-XI intact bilaterally Extrem: General: Yes normal to inspection, Yes full ROM and Yes no clubbing, cyanosis or edema Psych: Appearance: grossly normal and well kempt Speech and movement: Normal speech and movement present Affect: normal affect Progress Note: A&P Assessment and plan (1) PVD (peripheral vascular disease): Status: Acute Assessment and Plan: Patient doing relatively well. Would recommend additional unit of blood transfusion. In addition bowel regimen to improve his constipation. If stable would anticipate discharge as early as tomorrow. Thank you for allowing us to assist in his care. Fall Risk Details Current Medications: Current Medications Generic Name Dose Route Start Last Admin Trade Name Freq PRN Reason Stop Dose Admin Acetaminophen 650 mg 12/23/20 11:10 01/06/21 08:01 Acetaminophen 325 Mg Tablet PO 650 mg Q6H PRN Administration Pain, Mild (Pain Scale 1-3) Albuterol Sulfate 2 puff 01/06/21 10:48 Albuterol Sulfate 90 Mcg 8 Gm Inhaler INHALE RQ4H PRN Shortness of Breath/Wheezing Aspirin 81 mg 12/26/20 14:30 01/06/21 07:57 Aspirin Enteric Coated 81 Mg Tablet.Dr PO 81 mg DAILY TJ Administration Atorvastatin Calcium 40 mg 01/03/21 21:00 01/05/21 20:50 Atorvastatin Calcium 40 Mg Tablet PO 40 mg BEDTIME TJ Administration Docusate Sodium 100 mg 12/28/20 21:00 01/06/21 07:57 Docusate Sodium 100 Mg Capsule PO 100 mg BID TJ Administration Gabapentin 600 mg 01/04/21 21:00 01/05/21 20:50 Gabapentin 600 Mg Tablet PO 600 mg BEDTIME [facility] Administration Heparin Sodium (Porcine) 5,000 unit 12/23/20 12:00 01/06/21 12:27 Heparin Sodium,Porcine 5,000 Unit/Ml Vial SUBCUT 5,000 unit Q8H [facility] Administration Insulin Glargine 40 unit 01/06/21 21:00 Insulin Glargine,Hum.Rec.Anlog 100 Unit/Ml 10 Ml Vial SUBCUT BEDTIME [facility] Insulin Glargine 64 unit 01/07/21 09:00 Insulin Glargine,Hum.Rec.Anlog 100 Unit/Ml 10 Ml Vial SUBCUT DAILY [facility] Insulin Human Lispro 0 unit 12/28/20 16:30 01/06/21 12:27 Insulin Lispro 100 Unit/Ml 3 Ml Vial SUBCUT 6 unit QIDACHS [facility] Administration Protocol Lisinopril 5 mg 01/04/21 09:00 01/06/21 07:57 Lisinopril 5 Mg Tablet PO 5 mg DAILY [facility] Administration Protocol Magnesium Hydroxide 30 ml 12/30/20 10:11 01/03/21 08:26 Milk Of Magnesia 30 Ml Oral.Susp PO 30 ml TID PRN Administration Constipation Melatonin 6 mg 01/02/21 20:02 01/05/21 00:24 Melatonin 3 Mg Tablet PO 6 mg BEDTIME PRN Administration Insomnia Morphine Sulfate 2 mg 01/05/21 11:21 01/05/21 11:31 Morphine Sulfate 2 Mg/Ml Cartridge IVPUSH 2 mg Q4H PRN Administration pain Oxycodone HCl 7.5 mg 01/03/21 08:02 01/06/21 08:01 Oxycodone Hcl Immed Release 5 Mg Tablet PO 7.5 mg Q4H PRN Administration pain Pharmacy Consult 1 each 12/23/20 13:54 Consult Rx Perform Med Rec MISCELLANE ONCE PRN Consult order Polyethylene Glycol 17 gm 12/30/20 10:15 01/06/21 07:57 Polyethylene Glycol 3350 17 Gm Powd.Pack PO 17 gm DAILY TJ Administration Sodium Chloride 3 ml 12/23/20 16:00 01/06/21 07:57 0.9 % Sodium Chloride Flush 3 Ml Syringe IVFLUSH 3 ml QSHIFT TJ Administration Time Spent With Patient Time: Total time spent is greater than 50% in coordination of care (as documented) at patient's floor/unit and/or counseling patient: Time with patient: 15 - 24 minutes Procedures Date of Service Date of Service: 01/06/21
--- NOTE | 2021-01-06 13:21 | P.PNIM_ITS ---
Subjective Subjective Date of Service: 01/06/21 Interval History: postoperative pain controlled c/o severe constipation again; responded to enema last week Physical Exam Vital Signs: Vital Signs: Last Vital Signs Temp 96.8 F 01/06/21 10:56 Pulse 72 01/06/21 10:56 Resp 18 01/06/21 10:56 BP 98/52 L 01/06/21 10:56 Pulse Ox 96 01/06/21 10:56 Oxygen Flow Rate 1 12/23/20 09:17 Body Mass Index 32.2 Gen: in no acute distress HEENT: sclera anicteric, moist mucus membranes Neck: supple Lungs: clear to auscultation bilaterally Heart: regular rate and rhythm, no murmurs Abd: soft, non-tender, non-distended Ext: bilateral bka Skin: warm/well-perfused Neuro: alert and oriented x3, no focal findings Psych: appropriate affect Objective Data Current Medications Generic Name Dose Route Start Last Admin Trade Name Freq PRN Reason Stop Dose Admin Acetaminophen 650 mg 12/23/20 11:10 01/06/21 08:01 Acetaminophen 325 Mg Tablet PO 650 mg Q6H PRN Administration Pain, Mild (Pain Scale 1-3) Albuterol Sulfate 2 puff 01/06/21 10:48 Albuterol Sulfate 90 Mcg 8 Gm Inhaler INHALE RQ4H PRN Shortness of Breath/Wheezing Aspirin 81 mg 12/26/20 14:30 01/06/21 07:57 Aspirin Enteric Coated 81 Mg Tablet. PO 81 mg DAILY TJ Administration Atorvastatin Calcium 40 mg 01/03/21 21:00 01/05/21 20:50 Atorvastatin Calcium 40 Mg Tablet PO 40 mg BEDTIME TJ Administration Docusate Sodium 100 mg 12/28/20 21:00 01/06/21 07:57 Docusate Sodium 100 Mg Capsule PO 100 mg BID TJ Administration Gabapentin 600 mg 01/04/21 21:00 01/05/21 20:50 Gabapentin 600 Mg Tablet PO 600 mg BEDTIME TJ Administration Heparin Sodium (Porcine) 5,000 unit 12/23/20 12:00 01/06/21 12:27 Heparin Sodium,Porcine 5,000 Unit/Ml Vial SUBCUT 5,000 unit Q8H TJ Administration Insulin Glargine 40 unit 01/06/21 21:00 Insulin Glargine,Hum.Rec.Anlog 100 Unit/Ml 10 Ml Vial SUBCUT BEDTIME [facility] Insulin Glargine 64 unit 01/07/21 09:00 Insulin Glargine,Hum.Rec.Anlog 100 Unit/Ml 10 Ml Vial SUBCUT DAILY [facility] Insulin Human Lispro 0 unit 12/28/20 16:30 01/06/21 12:27 Insulin Lispro 100 Unit/Ml 3 Ml Vial SUBCUT 6 unit QIDACHS [facility] Administration Protocol Lisinopril 5 mg 01/04/21 09:00 01/06/21 07:57 Lisinopril 5 Mg Tablet PO 5 mg DAILY [facility] Administration Protocol Magnesium Hydroxide 30 ml 12/30/20 10:11 01/03/21 08:26 Milk Of Magnesia 30 Ml Oral.Susp PO 30 ml TID PRN Administration Constipation Melatonin 6 mg 01/02/21 20:02 01/05/21 00:24 Melatonin 3 Mg Tablet PO 6 mg BEDTIME PRN Administration Insomnia Morphine Sulfate 2 mg 01/05/21 11:21 01/05/21 11:31 Morphine Sulfate 2 Mg/Ml Cartridge IVPUSH 2 mg Q4H PRN Administration pain Oxycodone HCl 7.5 mg 01/03/21 08:02 01/06/21 08:01 Oxycodone Hcl Immed Release 5 Mg Tablet PO 7.5 mg Q4H PRN Administration pain Pharmacy Consult 1 each 12/23/20 13:54 Consult Rx Perform Med Rec MISCELLANE ONCE PRN Consult order Polyethylene Glycol 17 gm 12/30/20 10:15 01/06/21 07:57 Polyethylene Glycol 3350 17 Gm Powd.Pack PO 17 gm DAILY [facility] Administration Sodium Chloride 3 ml 12/23/20 16:00 01/06/21 07:57 0.9 % Sodium Chloride Flush 3 Ml Syringe IVFLUSH 3 ml QSHIFT [facility] Administration Labs CBC & Chem 7: 01/06/21 05:55 01/06/21 05:55 Labs: Laboratory Results - last 24 hr 01/05/21 01/05/21 01/06/21 16:19 20:21 05:55 WBC 8.1 RBC 2.42 L Hgb 7.3 L Hct 22.5 L MCV 93.0 MCH 30.2 MCHC 32.4 RDW 12.6 Plt Count 324 MPV 10.4 Absolute Nucleated RBC 0.000 Nucleated RBC % (auto) 0.0 Absolute Retic 0.079 Percent Retic 3.3 H Immature Retic Fraction 29.4 H Retic Hgb Equivalent 32.8 Sodium Potassium Chloride Carbon Dioxide Anion Gap BUN Creatinine Estim Creat Clear Calc Estimated GFR POC Glucose 209 H 252 H Fasting Glucose Calcium Iron TIBC % Saturation Unsat Iron Binding Ferritin Lactate Dehydrogenase Vitamin B12 Folate 01/06/21 01/06/21 01/06/21 05:55 05:55 07:21 WBC RBC Hgb Hct MCV MCH MCHC RDW Plt Count MPV Absolute Nucleated RBC Nucleated RBC % (auto) Absolute Retic Percent Retic Immature Retic Fraction Retic Hgb Equivalent Sodium 134 L Potassium 4.8 Chloride 98 Carbon Dioxide 28 Anion Gap 13 BUN 16 Creatinine 0.89 Estim Creat Clear Calc 115.5 Estimated GFR > 60 POC Glucose 213 H Fasting Glucose 229 H D Calcium 8.6 Iron 28 L TIBC 196 L % Saturation 14 L Unsat Iron Binding 168 Ferritin 326 H Lactate Dehydrogenase 135 Vitamin B12 402 Folate 5.0 01/06/21 01/06/21 10:56 12:15 WBC RBC Hgb Hct MCV MCH MCHC RDW Plt Count MPV Absolute Nucleated RBC Nucleated RBC % (auto) Absolute Retic Percent Retic Immature Retic Fraction Retic Hgb Equivalent Sodium Potassium Chloride Carbon Dioxide Anion Gap BUN Creatinine Estim Creat Clear Calc Estimated GFR POC Glucose 280 H 236 H Fasting Glucose Calcium Iron TIBC % Saturation Unsat Iron Binding Ferritin Lactate Dehydrogenase Vitamin B12 Folate Assessment and Plan (1) Diabetic foot infection: Status: Acute (2) PVD (peripheral vascular disease): Status: Acute (3) Status post below-knee amputation: Status: Acute (4) MGUS (monoclonal gammopathy of unknown significance): Status: Acute (5) Drug-induced thrombocytopenia: Status: Acute (6) Hyperlipidemia: Status: Acute (7) Hypertension: Status: Acute Assessment and Plan: hospital d#15 60yo M with DM2 admitted after L great toe amputation for concern of nonhealing site on vascular surgery service, medicine consulting for management of comorbid issues # L diabetic foot infection, nonhealing great toe amputation site no fever, WBC normalized, BCx x2 negative - POD #4 left BKA and does not need further antibiotic treatment # anemia - likely anemia of chronic disease, will transfuse 1u pRBCs, check FOBT # DM2, A1c 7.1 (12/26/20) -Lantus/Humalog- will adjust doses upwards for improved glycemic control # PAD - continue ASA+ statin # DM neuropathy gabapentin # constipation - bowel regimen, enema # VTE ppx - UFH # dispo - will need SNF for wound care + PT
--- NOTE | 2021-01-06 14:03 | MHC.CM.PN ---
EMR REVIEWED, PT ANEMIC HMG 7.3 HCT 22.5, PT WILL BE TRANSFUSED W/1U OF PRBC'S, PT BS'S ELEVATED AND HOSPITALIST TO ADJUST LANTUS/HUMOLOG DOSES. NO PLAN FOR D/C TODAY, ACUTE REHABS UPDATED. D/C PLAN: ACUTE REHAB, ACTION FOR BLS TRANSPORT.
[2021-01-06 16:33] LABS: Glucose, Whole Blood 216 mg/dL (60-115)
[2021-01-06 20:14] LABS: Glucose, Whole Blood 235 mg/dL (60-115)
[2021-01-06] MEDS: Milk of Magnesia 30 ML ORAL.SUSP PO (20:17)
[2021-01-06] MEDS: Gabapentin 600 MG TABLET PO (20:18)
[2021-01-06] MEDS: Insulin Glargine,Hum.rec.anlog 100 UNIT/ML 10 ML VIAL 40 UNIT SUBCUT (20:18)
[2021-01-06] MEDS: Atorvastatin Calcium 40 MG TABLET PO (20:18)
[2021-01-06] MEDS: Mineral OiL enema 133 ML ENEMA PR (21:55)
--- NOTE | 2021-01-06 23:28 | PC.NURSE ---
patient reported constipation, medicated with MOM 30 ml po , mineral oil enema given. No Bm yet
[2021-01-07] VITALS (8 sets, daily range): BP systolic 117–141; BP diastolic 46–74; PULSE 67–83; RESP 16–20; TEMP 36.1–37.1; O2SAT 94–99
[2021-01-07] MEDS: Heparin Sodium,Porcine 5,000 UNIT/ML VIAL 5000 UNIT SUBCUT ×3 (05:54→20:46)
[2021-01-07 06:59] LABS: MANUAL DIFF FLAG NO
[2021-01-07 07:02] LABS: Basophils Percent Auto 0.5 % (0-2); Eosinophils Absolute Auto 0.5 X10*3/uL (0.0-0.4); Eosinophils Percent Auto 6.9 % (0-4); Hematocrit 26.6 % (42-52); Hemoglobin 8.7 g/dl (14.0-18.0); Imm Gran Abs Auto 0.12 X10*3/uL (0.00-0.03); Imm Gran Pct Auto 1.6 % (0.0-0.4); Lymphocytes Absolute Auto 2.5 X10*3/uL (1.2-4.9); Lymphocytes Percent Auto 32.8 % (20-40); Mean Corpuscular HGB Conc 32.7 g/dl (31.0-36.0); Mean Corpuscular Hemoglobin 30.7 pg (27.0-33.0); Mean Platelet Volume 10.4 fL (9.4-12.4); Monocytes Absolute Auto 0.8 X10*3/uL (0.1-1.2); Monocytes Percent Auto 11.1 % (2-11); Neutrophils Absolute Auto 3.6 X10*3/uL (2.0-8.3); Neutrophils Percent Auto 47.1 % (45-73); Platelet Count 366 X10*3/uL (160-400); Red Blood Count 2.83 X10*6/uL (4.60-5.80); Red Cell Distribution Width 13.1 % (11.0-16.0); White Blood Count 7.6 X10*3/uL (4.8-10.8)
[2021-01-07 07:50] LABS: Glucose, Whole Blood 216 mg/dL (60-115)
[2021-01-07] MEDS: polyethylene glycoL 3350 17 GM POWD.PACK PO (08:02)
[2021-01-07] MEDS: Milk of Magnesia 30 ML ORAL.SUSP PO (08:02)
[2021-01-07] MEDS: Insulin Glargine,Hum.rec.anlog 100 UNIT/ML 10 ML VIAL 64 UNIT SUBCUT (08:03)
[2021-01-07] MEDS: Aspirin Enteric Coated 81 MG TABLET.DR PO (08:03)
[2021-01-07] MEDS: Docusate Sodium 100 MG CAPSULE PO ×2 (08:03→20:38)
[2021-01-07] MEDS: 0.9 % Sodium Chloride Flush 3 ML SYRINGE IVFLUSH (08:03)
[2021-01-07] MEDS: lisinopriL 5 MG TABLET PO (08:03)
[2021-01-07] MEDS: Insulin Lispro 100 UNIT/ML 3 ML VIAL SUBCUT ×4 (08:03→20:40)
--- NOTE | 2021-01-07 08:59 | HO.VASCPN ---
Subjective Subjective Date of Service: 01/07/21 Patient reports: no new complaints and feels better Interval history: Patient seen and examined. Status post transfusion of 1 unit of packed red blood cells. Feel significantly better. No events overnight. Pain well controlled. Still complains of constipation. Anxious for discharge Physical Exam Vital Signs: Vital Signs: Last Vital Signs Temp 97.5 F 01/07/21 07:34 Pulse 78 01/07/21 07:34 Resp 20 01/07/21 07:34 BP 119/63 01/07/21 07:34 Pulse Ox 95 01/07/21 07:34 Oxygen Flow Rate 1 12/23/20 09:17 Body Mass Index 32.2 Const: General: cooperative, healthy appearing and no acute distress Orientation/consciousness: oriented to person, oriented to place and oriented to time HENMT: Head: Yes normal to inspection Neck: Carotids: no bruits Chest: Chest palpation & inspection: normal inspection of the chest Resp: Effort & Inspection: normal respiratory effort and able to speak in complete sentences Auscultation: clear to auscultation bilaterally Cardio: Rate: regular rate Heart sounds: S1 normal heart sound present and S2 normal heart sound present GI: Inspection: Yes normal to inspection Skin: General skin exam: no rashes or lesions noted Wounds: amputation site (Healing well dressing clean dry intact) Neuro: General: oriented to person, oriented to place, oriented to time and CN's II-XI intact bilaterally Extrem: General: Yes normal to inspection, Yes full ROM and Yes no clubbing, cyanosis or edema Psych: Appearance: grossly normal and well kempt Speech and movement: Normal speech and movement present Affect: normal affect Progress Note: A&P Assessment and plan (1) Status post below-knee amputation: Status: Acute Assessment and Plan: Patient is status post bilateral lower extremity amputation. Most recently left lower extremity amputation. Stable from my perspective for discharge. Patient will need 2 week follow-up with me for suture and staple removal. Thank you for allowing us to assist in his care. Fall Risk Details Current Medications: Current Medications Generic Name Dose Route Start Last Admin Trade Name Freq PRN Reason Stop Dose Admin Acetaminophen 650 mg 12/23/20 11:10 01/06/21 08:01 Acetaminophen 325 Mg Tablet PO 650 mg Q6H PRN Administration Pain, Mild (Pain Scale 1-3) Albuterol Sulfate 2 puff 01/06/21 10:48 Albuterol Sulfate 90 Mcg 8 Gm Inhaler INHALE RQ4H PRN Shortness of Breath/Wheezing Aspirin 81 mg 12/26/20 14:30 01/07/21 08:03 Aspirin Enteric Coated 81 Mg Tablet. PO 81 mg DAILY TJ Administration Atorvastatin Calcium 40 mg 01/03/21 21:00 01/06/21 20:18 Atorvastatin Calcium 40 Mg Tablet PO 40 mg BEDTIME TJ Administration Docusate Sodium 100 mg 12/28/20 21:00 01/07/21 08:03 Docusate Sodium 100 Mg Capsule PO 100 mg BID TJ Administration Ferrous Sulfate 324 mg 01/07/21 09:00 Ferrous Sulfate 324 Mg Tablet. PO Q48H TJ Gabapentin 600 mg 01/04/21 21:00 01/06/21 20:18 Gabapentin 600 Mg Tablet PO 600 mg BEDTIME TJ Administration Heparin Sodium (Porcine) 5,000 unit 12/23/20 12:00 01/07/21 05:54 Heparin Sodium,Porcine 5,000 Unit/Ml Vial SUBCUT 5,000 unit Q8H TJ Administration Insulin Glargine 40 unit 01/06/21 21:00 01/06/21 20:18 Insulin Glargine,Hum.Rec.Anlog 100 Unit/Ml 10 Ml Vial SUBCUT 40 unit BEDTIME TJ Administration Insulin Glargine 64 unit 01/07/21 09:00 01/07/21 08:03 Insulin Glargine,Hum.Rec.Anlog 100 Unit/Ml 10 Ml Vial SUBCUT 64 unit DAILY TJ Administration Insulin Human Lispro 0 unit 12/28/20 16:30 01/07/21 08:03 Insulin Lispro 100 Unit/Ml 3 Ml Vial SUBCUT 6 unit QIDACHS TJ Administration Protocol Lisinopril 5 mg 01/04/21 09:00 01/07/21 08:03 Lisinopril 5 Mg Tablet PO 5 mg DAILY TJ Administration Protocol Magnesium Hydroxide 30 ml 12/30/20 10:11 01/07/21 08:02 Milk Of Magnesia 30 Ml Oral.Susp PO 30 ml TID PRN Administration Constipation Melatonin 6 mg 01/02/21 20:02 01/05/21 00:24 Melatonin 3 Mg Tablet PO 6 mg BEDTIME PRN Administration Insomnia Morphine Sulfate 2 mg 01/05/21 11:21 01/05/21 11:31 Morphine Sulfate 2 Mg/Ml Cartridge IVPUSH 2 mg Q4H PRN Administration pain Oxycodone HCl 7.5 mg 01/03/21 08:02 01/06/21 20:17 Oxycodone Hcl Immed Release 5 Mg Tablet PO 7.5 mg Q4H PRN Administration pain Pharmacy Consult 1 each 12/23/20 13:54 Consult Rx Perform Med Rec MISCELLANE ONCE PRN Consult order Polyethylene Glycol 17 gm 12/30/20 10:15 01/07/21 08:02 Polyethylene Glycol 3350 17 Gm Powd.Pack PO 17 gm DAILY TJ Administration Sodium Biphosphate/Sodium Phosphate 133 ml 01/07/21 08:06 Sodium Phosphate,Snyder-Dibasic 133 Ml Enema MD ONCE PRN constipation Sodium Chloride 3 ml 12/23/20 16:00 01/07/21 08:03 0.9 % Sodium Chloride Flush 3 Ml Syringe IVFLUSH 3 ml QSHIFT TJ Administration Time Spent With Patient Time: Total time spent is greater than 50% in coordination of care (as documented) at patient's floor/unit and/or counseling patient: Time with patient: 15 - 24 minutes Procedures Date of Service Date of Service: 01/07/21
[2021-01-07] MEDS: Ferrous Sulfate 324 MG TABLET.DR PO (10:33)
[2021-01-07 11:27] LABS: Glucose, Whole Blood 286 mg/dL (60-115)
--- NOTE | 2021-01-07 12:31 | MHC.CM.PN ---
IMM 01/07/21, PT DISCHARGING TODAY TO [facility] FOR ACUTE REHAB PENDING INS AUTH, [facility] FOR BLS TRANSPORT
[2021-01-07 12:50] LABS: COVID-19 Test Negative (Negative)
--- NOTE | 2021-01-07 12:58 | P.DS_ITS ---
DS: Providers Provider Date of Service: 01/07/21 Date of admission: 12/23/20 06:06 Primary care physician: Virginie Liao MD Consults: 12/23/20 11:10 Consult to Hospitalist Routine Consulting Provider: Hospitalist Reason For Exam: diabetes management 12/25/20 11:45 Consult to Infectious Diseases Routine Consulting Provider: Freya Fleming Reason for consultation: Skin cellulitis status post amputation Has provider been notified: No DS: Diagnosis Discharge Diagnosis (1) Diabetic foot infection: Status: Acute (2) Non-healing amputation site: Status: Acute (3) Anemia: Status: Acute (4) Constipation: Status: Acute (5) Drug-induced thrombocytopenia: Status: Acute DS: Medications Discharge Medications Home Medications: Home Medications Medication Instructions Recorded Confirmed Victoza 3-Chet 1.8 mg SUBCUT DAILY 07/17/20 12/23/20 aspirin 81 mg PO DAILY 07/17/20 12/23/20 gabapentin 600 mg PO DAILY 07/17/20 12/23/20 lisinopril 5 mg PO DAILY 07/17/20 12/23/20 metformin 1,000 mg PO BID 07/17/20 12/23/20 cholecalciferol (vitamin D3) 25 mcg PO DAILY 09/04/20 12/23/20 fluoxetine 20 mg capsule 20 mg PO DAILY 10/01/20 12/23/20 atorvastatin 40 mg PO DAILY 10/09/20 12/23/20 albuterol sulfate 90 mcg/actuation 2 puff INHALATION Q4-6H PRN 12/17/20 12/23/20 aerosol inhaler Tresiba FlexTouch U-100 50 unit SUBCUT QPM 12/23/20 12/23/20 Tresiba FlexTouch U-100 80 unit SUBCUT QAM 12/23/20 12/23/20 Previous Rx's Medication Instructions Recorded docusate sodium 100 mg PO BID #60 cap 01/07/21 ferrous sulfate 324 mg PO Q48H #15 tab 01/07/21 oxycodone 7.5 mg PO Q4H PRN #10 tab 01/07/21 polyethylene glycol 3350 17 g PO DAILY #30 ea 01/07/21 sodium phosphates [Fleet Enema] 133 ml MT ONCE PRN #1 ea 01/07/21 DS: Summary Hospital Course Hospital Course: Mr Benson is a 60 year-old man with type 2 diabetes mellitus, peripheral vascular disease, and hypertension with history of prior right BKA who was admitted to the vascular surgery service after amputation of the left great toe. The hospitalist service was consulted for management of comorbid conditions. The amputation site did not heal well and there was concern for ascending infection. He was treated with piperacillin/tazobactam and daptomycin due to history of MRSA in the past and prior thrombocytopenia due to vancomycin. Eventually, he required a left BKA for definitive control of the infection. Blood cultures were negative and leukocytosis resolved. Antibiotics were discontinued. He was transfused 1 unit of packed red blood cells for anemia that was likely due to chronic disease/inflammation plus iron deficiency. He was discharged to an acute rehabilitation facility for PT given bilateral BKAs. Iron replacement was prescribed and he should have a CBCd and reticulocyte count drawn in 1 month. Bowel regimen was prescribed for his chronic recurrent cons tipation. Time Spent with Patient Time attestation: Total time spent providing and/or coordinating discharge services: 40 Discharge coordination time: Greater than 30 minutes Quality: Stroke Does the patient have a stroke diagnosis?: No Physical Exam Vital Signs: Vital Signs: Last Vital Signs Temp 97.9 F 01/07/21 11:12 Pulse 83 01/07/21 11:12 Resp 18 01/07/21 11:12 BP 128/74 01/07/21 11:12 Pulse Ox 98 01/07/21 11:12 Oxygen Flow Rate 1 12/23/20 09:17 Body Mass Index 32.2 Gen: in no acute distress HEENT: sclera anicteric, moist mucus membranes Neck: supple Lungs: clear to auscultation bilaterally Heart: regular rate and rhythm, no murmurs Abd: soft, non-tender, non-distended Ext: bilateral BKA Skin: warm/well-perfused Neuro: alert and oriented x3, no focal findings Psych: appropriate affect DS: Data Data Completed and Pending Completed studies during hospitalization [Text1]: Laboratory Results WBC 7.6 X10*3/uL (4.8-10.8) 01/07/21 06:04 RBC 2.83 X10*6/uL (4.60-5.80) L 01/07/21 06:04 Hgb 8.7 g/dl (14.0-18.0) L 01/07/21 06:04 Hct 26.6 % (42-52) L 01/07/21 06:04 MCV 94.0 fL (80-98) 01/07/21 06:04 MCH 30.7 pg (27.0-33.0) 01/07/21 06:04 MCHC 32.7 g/dl (31.0-36.0) 01/07/21 06:04 RDW 13.1 % (11.0-16.0) 01/07/21 06:04 Plt Count 366 X10*3/uL (160-400) 01/07/21 06:04 MPV 10.4 fL (9.4-12.4) 01/07/21 06:04 Immature Gran % (Auto) 1.6 % (0.0-0.4) H 01/07/21 06:04 Neut % (Auto) 47.1 % (45-73) 01/07/21 06:04 Lymph % (Auto) 32.8 % (20-40) 01/07/21 06:04 Anderson % (Auto) 11.1 % (2-11) H 01/07/21 06:04 Eos % (Auto) 6.9 % (0-4) H 01/07/21 06:04 Baso % (Auto) 0.5 % (0-2) 01/07/21 06:04 Lymph # (Auto) 2.5 X10*3/uL (1.2-4.9) 01/07/21 06:04 Anderson # (Auto) 0.8 X10*3/uL (0.1-1.2) 01/07/21 06:04 Eos # (Auto) 0.5 X10*3/uL (0.0-0.4) H 01/07/21 06:04 Baso # (Auto) 0.0 X10*3/uL (0.0-0.2) 01/07/21 06:04 Abs Immat Gran (auto) 0.12 X10*3/uL (0.00-0.03) H 01/07/21 06:04 Absolute Neuts (auto) 3.6 X10*3/uL (2.0-8.3) 01/07/21 06:04 Absolute Nucleated RBC 0.000 X10*3/uL (0.0-0.012) 01/07/21 06:04 Nucleated RBC % (auto) 0.0 /100WBC (0.0-0.2) 01/07/21 06:04 Smear Tech's Comments VERIFIED 01/03/21 06:04 Absolute Retic 0.079 X10*6/uL (0.026-0.095) 01/06/21 05:55 Percent Retic 3.3 % (0.5-1.8) H 01/06/21 05:55 Immature Retic Fraction 29.4 % (2.3-13.4) H 01/06/21 05:55 Retic Hgb Equivalent 32.8 pg (30.0-35.0) 01/06/21 05:55 PT 14.0 SEC (10.8-13.0) H 12/23/20 08:05 INR 1.2 (0.9-1.1) H 12/23/20 08:05 APTT 38.8 SEC (24.1-38.0) H 12/23/20 08:05 Sodium 134 mmol/L (135-145) L 01/06/21 05:55 Potassium 4.8 mmol/L (3.3-5.1) 01/06/21 05:55 Chloride 98 mmol/L (96-108) 01/06/21 05:55 Carbon Dioxide 28 mmol/L (22-29) 01/06/21 05:55 Anion Gap 13 (12-20) 01/06/21 05:55 BUN 16 mg/dL (9-16) 01/06/21 05:55 Creatinine 0.89 mg/dL (0.5-1.4) 01/06/21 05:55 Estim Creat Clear Calc 115.5 01/06/21 05:55 Estimated GFR > 60 01/06/21 05:55 POC Glucose 286 mg/dL (60-115) H 01/07/21 11:10 Random Glucose 166 mg/dL (60-115) H 12/31/20 06:06 Fasting Glucose 229 mg/dL (60-99) H D 01/06/21 05:55 Estimat Average Glucose 157 mg/dL 12/26/20 09:15 Hemoglobin A1c % 7.1 % 12/26/20 09:15 Calcium 8.6 mg/dL (8.4-10.2) 01/06/21 05:55 Iron 28 mcg/dL (45-160) L 01/06/21 05:55 TIBC 196 mcg/dL (228-428) L 01/06/21 05:55 % Saturation 14 % (15-50) L 01/06/21 05:55 Unsat Iron Binding 168 ug/dL 01/06/21 05:55 Ferritin 326 ng/mL (20-250) H 01/06/21 05:55 Lactate Dehydrogenase 135 U/L (118-273) 01/06/21 05:55 Vitamin B12 402 pg/mL (200-900) 01/06/21 05:55 Folate 5.0 ng/mL (> or = 4.0) 01/06/21 05:55 COVID-19 (JOSE) Negative (Negative) 01/07/21 12:00 COVID-19 Clin Com See Note 01/07/21 12:00 Blood Type O Positive 01/06/21 14:11 Antibody Screen NEGATIVE 01/06/21 14:11 Crossmatch See Detail 01/06/21 14:11 Pathology results 12/23/20 Toe, left great, amputation: - Skin and subcutaneous tissue with gangrenous necrosis. - Viable bone and cartilage; no acute osteomyelitis seen. 01/02/21 Left leg, [id number] amputation: - Ulcerated skin and subcutaneous tissue with gangrenous necrosis and abscess formation. - Arteriosclerosis, extensive. - Viable tissue present at margins Discharge Plan Discharge Patient Disposition: Xfer Inpatient Rehab Fac Discharge Diagnosis: L diabetic foot infection, nonhealing great toe amputation site Referrals: Virginie Liao MD [Physician] - 1 Week Cameron Figueroa MD [Physician] - 2 Weeks Discharge Medications: New ferrous sulfate 324 mg (65 mg iron) Tablet,Delayed Release (Dr/Ec) 324 mg PO Q48H Qty: 15 RF: 0 polyethylene glycol 3350 17 gram Powder In Packet 17 g PO DAILY Qty: 30 RF: 0 oxycodone 5 mg Tablet 7.5 mg PO Q4H PRN (Reason: pain) Qty: 10 RF: 0 Fleet Enema 19-7 gram/118 mL Enema 133 ml MT ONCE PRN (Reason: constipation) Qty: 1 RF: 0 docusate sodium 100 mg Capsule 100 mg PO BID Qty: 60 RF: 0 Continued atorvastatin 40 mg tablet 40 mg PO DAILY RF: 0 gabapentin 600 mg tablet 600 mg PO DAILY RF: 0 aspirin 81 mg tablet,delayed release (DR/EC) 81 mg PO DAILY RF: 0 metformin 1,000 mg tablet 1,000 mg PO BID RF: 0 lisinopril 5 mg tablet 5 mg PO DAILY RF: 0 Victoza 3-Chet 0.6 mg/0.1 mL (18 mg/3 mL) pen injector 1.8 mg subcut DAILY RF: 0 cholecalciferol (vitamin D3) 25 mcg (1,000 unit) tablet 25 mcg PO DAILY RF: 0 Tresiba FlexTouch U-100 100 unit/mL (3 mL) insulin pen 50 unit subcut QPM RF: 0 Tresiba FlexTouch U-100 100 unit/mL (3 mL) insulin pen 80 unit subcut QAM RF: 0 Discharge Orders: Discharge Order (Routine); Ordered 01/07/21 Ordered By: Tyrell Gomez Activity on Discharge: As tolerated Stand Alone Forms: Patient Portal Discharge page Other Ambulatory Orders: Complete Blood Count Auto Diff (Routine) Timeframe: 1 Month Facility: [facility] - Location: Laboratory Ordered By: Tyrell Gomez Reticulocyte Count (Routine) Timeframe: 1 Month Facility: [facility] - Location: Laboratory Ordered By: Tyrell Gomez Activity Restrictions/Additional Instructions: Wound care instructions: xeroform, 4x4 and Kerlix wrap to be changed daily Please see Dr. Figueroa in 2 weeks as outpatient for suture and staple removal Care Plan Goals: adjusting to bilateral BKA Health Concerns: bilateral BKA diabetic foot infection, resolved anemia Plan of Treatment: transfer to rehab follow up with Dr Figueroa in 2 weeks; wound care as below take ferrous sulfate 324 mg every other day; check CBCd and reticulocyte count in 1 month Assessment: as above
--- NOTE | 2021-01-07 16:49 | HO.PM.IMPN ---
Subjective Subjective Date of Service: 01/07/21 Interval History: eager to go to rehab unfortunately, d/c delayed by insurance authorization delay though he is medically ready postop pain controlled tolerated transfusion of 1u PRBCs Physical Exam Vital Signs: Vital Signs: Last Vital Signs Temp 97.9 F 01/07/21 11:12 Pulse 83 01/07/21 11:12 Resp 18 01/07/21 11:12 BP 128/74 01/07/21 11:12 Pulse Ox 98 01/07/21 11:12 Oxygen Flow Rate 1 12/23/20 09:17 Body Mass Index 32.2 Gen: in no acute distress HEENT: sclera anicteric, moist mucus membranes Neck: supple Lungs: clear to auscultation bilaterally Heart: regular rate and rhythm, no murmurs Abd: soft, non-tender, non-distended Ext: bilateral bka Skin: warm/well-perfused Neuro: alert and oriented x3, no focal findings Psych: appropriate affect Objective Data Current Medications Generic Name Dose Route Start Last Admin Trade Name Daronq PRN Reason Stop Dose Admin Acetaminophen 650 mg 12/23/20 11:10 01/06/21 08:01 Acetaminophen 325 Mg Tablet PO 650 mg Q6H PRN Administration Pain, Mild (Pain Scale 1-3) Albuterol Sulfate 2 puff 01/06/21 10:48 Albuterol Sulfate 90 Mcg 8 Gm Inhaler INHALE RQ4H PRN Shortness of Breath/Wheezing Aspirin 81 mg 12/26/20 14:30 01/07/21 08:03 Aspirin Enteric Coated 81 Mg Tablet. PO 81 mg DAILY TJ Administration Atorvastatin Calcium 40 mg 01/03/21 21:00 01/06/21 20:18 Atorvastatin Calcium 40 Mg Tablet PO 40 mg BEDTIME TJ Administration Docusate Sodium 100 mg 12/28/20 21:00 01/07/21 08:03 Docusate Sodium 100 Mg Capsule PO 100 mg BID TJ Administration Ferrous Sulfate 324 mg 01/07/21 09:00 01/07/21 10:33 Ferrous Sulfate 324 Mg Tablet. PO 324 mg Q48H TJ Administration Gabapentin 600 mg 01/04/21 21:00 01/06/21 20:18 Gabapentin 600 Mg Tablet PO 600 mg BEDTIME TJ Administration Heparin Sodium (Porcine) 5,000 unit 12/23/20 12:00 01/07/21 11:40 Heparin Sodium,Porcine 5,000 Unit/Ml Vial SUBCUT 5,000 unit Q8H TJ Administration Insulin Glargine 40 unit 01/06/21 21:00 01/06/21 20:18 Insulin Glargine,Hum.Rec.Anlog 100 Unit/Ml 10 Ml Vial SUBCUT 40 unit BEDTIME TJ Administration Insulin Glargine 64 unit 01/07/21 09:00 01/07/21 08:03 Insulin Glargine,Hum.Rec.Anlog 100 Unit/Ml 10 Ml Vial SUBCUT 64 unit DAILY TJ Administration Insulin Human Lispro 0 unit 12/28/20 16:30 01/07/21 11:40 Insulin Lispro 100 Unit/Ml 3 Ml Vial SUBCUT 10 unit QIDACHS [facility] Administration Protocol Lisinopril 5 mg 01/04/21 09:00 01/07/21 08:03 Lisinopril 5 Mg Tablet PO 5 mg DAILY [facility] Administration Protocol Magnesium Hydroxide 30 ml 12/30/20 10:11 01/07/21 08:02 Milk Of Magnesia 30 Ml Oral.Susp PO 30 ml TID PRN Administration Constipation Melatonin 6 mg 01/02/21 20:02 01/05/21 00:24 Melatonin 3 Mg Tablet PO 6 mg BEDTIME PRN Administration Insomnia Morphine Sulfate 2 mg 01/05/21 11:21 01/05/21 11:31 Morphine Sulfate 2 Mg/Ml Cartridge IVPUSH 2 mg Q4H PRN Administration pain Oxycodone HCl 7.5 mg 01/03/21 08:02 01/06/21 20:17 Oxycodone Hcl Immed Release 5 Mg Tablet PO 7.5 mg Q4H PRN Administration pain Pharmacy Consult 1 each 12/23/20 13:54 Consult Rx Perform Med Rec MISCELLANE ONCE PRN Consult order Polyethylene Glycol 17 gm 12/30/20 10:15 01/07/21 08:02 Polyethylene Glycol 3350 17 Gm Powd.Pack PO 17 gm DAILY [facility] Administration Sodium Biphosphate/Sodium Phosphate 133 ml 01/07/21 08:06 Sodium Phosphate,[place]-Dibasic 133 Ml Enema AR ONCE PRN constipation Sodium Chloride 3 ml 12/23/20 16:00 01/07/21 08:03 0.9 % Sodium Chloride Flush 3 Ml Syringe IVFLUSH 3 ml QSHIFT [facility] Administration Labs CBC & Chem 7: 01/07/21 06:04 01/06/21 05:55 Labs: Laboratory Results - last 24 hr 01/06/21 01/06/21 01/07/21 14:11 20:05 06:04 WBC 7.6 RBC 2.83 L Hgb 8.7 L Hct 26.6 L MCV 94.0 MCH 30.7 MCHC 32.7 RDW 13.1 Plt Count 366 MPV 10.4 Immature Gran % (Auto) 1.6 H Neut % (Auto) 47.1 Lymph % (Auto) 32.8 [place] % (Auto) 11.1 H Eos % (Auto) 6.9 H Baso % (Auto) 0.5 Lymph # (Auto) 2.5 [place] # (Auto) 0.8 Eos # (Auto) 0.5 H Baso # (Auto) 0.0 Abs Immat Gran (auto) 0.12 H Absolute Neuts (auto) 3.6 Absolute Nucleated RBC 0.000 Nucleated RBC % (auto) 0.0 POC Glucose 235 H COVID-19 (JOSE) COVID-19 Clin Com Blood Type O Positive Antibody Screen NEGATIVE Crossmatch See Detail 01/07/21 01/07/21 01/07/21 07:33 11:10 12:00 WBC RBC Hgb Hct MCV MCH MCHC RDW Plt Count MPV Immature Gran % (Auto) Neut % (Auto) Lymph % (Auto) [place] % (Auto) Eos % (Auto) Baso % (Auto) Lymph # (Auto) [place] # (Auto) Eos # (Auto) Baso # (Auto) Abs Immat Gran (auto) Absolute Neuts (auto) Absolute Nucleated RBC Nucleated RBC % (auto) POC Glucose 216 H 286 H COVID-19 (JOSE) Negative COVID-19 Clin Com See Note Blood Type Antibody Screen Crossmatch Assessment and Plan (1) Diabetic foot infection: Status: Acute (2) PVD (peripheral vascular disease): Status: Acute (3) Status post below-knee amputation: Status: Acute (4) MGUS (monoclonal gammopathy of unknown significance): Status: Acute (5) Drug-induced thrombocytopenia: Status: Acute (6) Hyperlipidemia: Status: Acute (7) Hypertension: Status: Acute Assessment and Plan: hospital d#16 60yo M with DM2, hx of R BKA admitted after L great toe amputation for concern of nonhealing site on vascular surgery service, medicine consulting for management of comorbid issues # L diabetic foot infection, nonhealing great toe amputation site - no fever, WBC normalized, BCx x2 negative - POD #5 left BKA and does not need further antibiotic treatment (was on pip/malik + dapto- the latter due to hx of vanco-induced thrombocytopenia) # anemia - likely anemia of chronic disease + iron deficiency. transfused 1u pRBCs with appropriate response in H+H. replete Fe PO. # DM2, A1c 7.1 (12/26/20) -Lantus/Humalog # PAD - continue ASA+ statin # DM neuropathy - gabapentin # constipation - bowel regimen, enema # VTE ppx - UFH # dispo - awaiting authorization for acute inpt rehab for bilateral BKAs
[2021-01-07 17:21] LABS: Glucose, Whole Blood 264 mg/dL (60-115)
[2021-01-07] MEDS: oxyCODONE HCl Immed Release 5 MG TABLET 7.5 MG PO (19:27)
[2021-01-07 20:02] LABS: Glucose, Whole Blood 300 mg/dL (60-115)
[2021-01-07] MEDS: Atorvastatin Calcium 40 MG TABLET PO (20:39)
[2021-01-07] MEDS: Insulin Glargine,Hum.rec.anlog 100 UNIT/ML 10 ML VIAL 40 UNIT SUBCUT (20:39)
[2021-01-07] MEDS: Gabapentin 600 MG TABLET PO (20:39)
[2021-01-07] MEDS: Sodium Phosphate,Mono-Dibasic 133 ML ENEMA PR (21:42)
[2021-01-08 00:42] VITALS: PULSE 71; RESP 24; O2SAT 95
[2021-01-08 03:58] VITALS: BP 117/70; PULSE 79; RESP 16; TEMP 36.6; O2SAT 98
[2021-01-08] MEDS: Heparin Sodium,Porcine 5,000 UNIT/ML VIAL 5000 UNIT SUBCUT ×2 (05:22→11:40)
[2021-01-08 07:26] VITALS: BP 101/46; PULSE 73; RESP 17; TEMP 36.8; O2SAT 97
[2021-01-08 07:33] LABS: Glucose, Whole Blood 150 mg/dL (60-115)
[2021-01-08] MEDS: Insulin Lispro 100 UNIT/ML 3 ML VIAL SUBCUT ×2 (07:55→11:40)
[2021-01-08] MEDS: Aspirin Enteric Coated 81 MG TABLET.DR PO (07:55)
[2021-01-08] MEDS: polyethylene glycoL 3350 17 GM POWD.PACK PO (07:56)
[2021-01-08] MEDS: Insulin Glargine,Hum.rec.anlog 100 UNIT/ML 10 ML VIAL 64 UNIT SUBCUT (07:56)
[2021-01-08] MEDS: Docusate Sodium 100 MG CAPSULE PO (07:56)
[2021-01-08 07:57] VITALS: BP 111/54; PULSE 78
[2021-01-08] MEDS: lisinopriL 5 MG TABLET PO (07:57)
[2021-01-08] MEDS: oxyCODONE HCl Immed Release 5 MG TABLET 7.5 MG PO ×2 (08:02→12:16)
[2021-01-08 09:58] VITALS: BP 111/54; PULSE 78
--- NOTE | 2021-01-08 11:09 | MHC.CM.PN ---
PT REMAINS ON UNIT DUE TO INSURANCE AUTH NOT GOING THROUGH, CM RECEIVED MESSAGE AT TIME OF THIS NOTE AUTH HAS BEEN OBTAINED AND PT WILL D/C TO [facility] FOR ACUTE RE[facility], [facility] FOR BLS TRANSPORT. HOSPITALIST & NURSING AWARE OF PT''S DISPO
[2021-01-08 11:20] VITALS: BP 121/66; PULSE 85; RESP 19; TEMP 36.8; O2SAT 95
[2021-01-08 11:33] LABS: Glucose, Whole Blood 257 mg/dL (60-115)
== END 2021-01-08 12:46 | DRG 240 ==
LOC: HO.SSS 06:06 → HO.SSSA 06:07 → HO.S3 14:15
PROVIDERS: Family Medicine; Internal Medicine; Admitting Provider Surgery Vascular Surgery; PCP Internal Medicine; Visit Provider Surgery Vascular Surgery
PROC: 0Y6Q0Z0 Detachment at Left 1st Toe, Complete, Open Approach (ICD-10-PCS; principal; 2020-12-23 09:10)
PROC: B41DZZZ Fluoroscopy of Aorta and Bilateral Lower Extremity Arteries (ICD-10-PCS; principal; 2020-12-30 13:00)
PROC: 0Y6J0Z2 Detachment at Left Lower Leg, Mid, Open Approach (ICD-10-PCS; CPT 27880; principal; 2021-01-02 12:00)
DX: E11.52 Type 2 diabetes mellitus with diabetic peripheral angiopathy with gangrene (principal); L03.116 Cellulitis of left lower limb; I70.262 Atherosclerosis of native arteries of extremities with gangrene, left leg; Z20.822 Contact with and (suspected) exposure to COVID-19; E11.65 Type 2 diabetes mellitus with hyperglycemia; Z89.511 Acquired absence of right leg below knee; E11.621 Type 2 diabetes mellitus with foot ulcer; L97.529 Non-pressure chronic ulcer of other part of left foot with unspecified severity; D72.829 Elevated white blood cell count, unspecified; E11.42 Type 2 diabetes mellitus with diabetic polyneuropathy; T87.89 Other complications of amputation stump; I10 Essential (primary) hypertension; E78.5 Hyperlipidemia, unspecified; D69.59 Other secondary thrombocytopenia; D47.2 Monoclonal gammopathy; K59.03 Drug induced constipation; T40.605A Adverse effect of unspecified narcotics, initial encounter; Y92.239 Unspecified place in hospital as the place of occurrence of the external cause; Z91.14 Patient's other noncompliance with medication regimen; Z79.4 Long term (current) use of insulin; Z79.82 Long term (current) use of aspirin; Z79.899 Other long term (current) drug therapy
CPT/HCPCS: 36247; 36415; 75630; 76937; 80048; 82607; 82728; 82746; 82947; 83036; 83540; 83615; 85025; 85027; 85045; 85610; 85730; 86850; 86900; 86901; 86923; 87635; 88305; 88307; 88311; 94660; 97110; 97163; 97167; 97530; 97535; 99152; 99153; C1769; C1887; J0690; J0878; J2250; J2270; J2370; J2405; J2543; J3010; P9016; Q4186

== ENCOUNTER → 2021-01-16 14:03 | Outpatient (BNVA) | payer OTHER, SELFPAY | PROVIDERS: PCP Internal Medicine; Visit Provider Surgery Vascular Surgery | DX: Z89.512 Acquired absence of left leg below knee (principal); Z89.511 Acquired absence of right leg below knee | CPT/HCPCS: 99212 ==

== ENCOUNTER → 2021-01-30 15:35 | Outpatient (BNVA) | payer OTHER, SELFPAY | PROVIDERS: PCP Internal Medicine; Visit Provider Surgery Vascular Surgery | DX: Z89.512 Acquired absence of left leg below knee (principal); Z89.511 Acquired absence of right leg below knee | CPT/HCPCS: 99212 ==

== ENCOUNTER 2021-02-22 11:11 | Inpatient (IN) | payer OTHER, SELFPAY ==
[2021-02-22] VITALS (7 sets, daily range): BP systolic 110–138; BP diastolic 54–100; PULSE 87–93; RESP 14–20; TEMP 35.8–37.1; O2SAT 97–98; BMI 32.1
--- NOTE | ~2021-02-22 | CT_ITS ---
EXAMINATION: CT LEFT KNEE WITH CONTRAST CLINICAL INFORMATION: Erythematous, swollen stump. Rule out abscess. COMPARISON: None TECHNIQUE: Axial imaging was performed through the left knee following the IV administration of 85 mL Omnipaque 350. Reformatted sagittal and coronal images are provided for interpretation. This CT examination was performed using dose optimization techniques as appropriate, variously including the following: *Automated exposure control *Adjustment of mA and/or kV according to patient size (this includes techniques or standardized protocols for targeted exams where dose is matched to indication/reason for exam; i.e. extremities or head) *Use of iterative reconstruction technique DLP: 189 mGy-cm FINDINGS: The patient is status post below the knee amputation. There is no fracture. There are no cortical erosions. There are mild degenerative changes of the patellofemoral joint. There is diffuse skin thickening of the stomach with subcutaneous edema, however, no localized fluid collection is identified. A single metallic clip is noted within the superficial tissues of the stump anteriorly. Vascular calcifications are noted. CT/CT lower leg LT w con IMPRESSION: No abscess.
--- NOTE | ~2021-02-22 | XR_ITS ---
EXAMINATION: XR CHEST CLINICAL INFORMATION: Weakness, rule out pneumonia COMPARISON: Chest x-ray on 10/31/2020 TECHNIQUE: Frontal view of the chest was obtained. FINDINGS: No significant abnormality is noted involving the heart, lungs, mediastinum, bony thorax or soft tissues. XR/XR chest 1V IMPRESSION: Unremarkable examination.
--- NOTE | ~2021-02-22 | US_ITS ---
EXAMINATION: US ABDOMEN LIMITED CLINICAL INFORMATION: Right upper quadrant abdominal pain.. COMPARISON: None TECHNIQUE: Real-time imaging of the right upper quadrant abdominal viscera. FINDINGS: PANCREAS: Visualized part of the body of the pancreas is unremarkable. LIVER: Normal. The liver is normal in size. The liver contour is normal. Parenchymal echogenicity is normal. No focal hepatic lesion. There is no intrahepatic biliary duct dilatation seen. GALLBLADDER: Surgically absent. COMMON BILE DUCT: Normal in caliber measuring 0.3 cm in diameter. RIGHT KIDNEY: No hydronephrosis. No renal calculi or focal parenchymal lesions. The kidney measures 11.7 cm in maximum dimension. FREE FLUID: None. US/US abdomen limited IMPRESSION: 1. Surgically absent gallbladder and nondilated biliary tree. 2. Visualized part of the pancreas is unremarkable. 3. Morphologically unremarkable liver, and right kidney.
--- NOTE | 2021-02-22 12:05 | ED_ITS ---
HPI - General Adult General Chief complaint: General Medical Stated complaint: LFT LEG PAIN/SWELLING/DRAINAGE Time Seen by Provider: 02/22/21 11:35 Source: patient Mode of arrival: EMS Limitations: no limitations History of Present Illness HPI narrative: 61-year-old male who presents emergency department for evalu ation of possible infection of his left BKA stump. Patient has a history of diabetes mellitus and had a left marxc-tnq-nzoz amputation by in December of 2020, who presents emergency department for evaluation swelling, pain, redness and drainage of purulent material from the left Lower extremity stump. Patient states that he noted some slight redness and pain yesterday, with symptoms getting worse today. He states that the left BKA stump is swollen, soft to the touch, very tender to palpation and is draining a greenish, purulent material. He is currently complaining of a sharp, constant pain which is 8/10 at its worst.He denied fever or chills however he states that he is feeling weak and fatigued. He has also had nausea with 1 episode of vomiting. The patient had his 2nd Pfizer COVID-19 vaccination 3 days prior. Related Data Home Medications Medication Instructions Recorded Confirmed Victoza 3-Chet 1.8 mg SUBCUT DAILY 07/17/20 02/22/21 aspirin 81 mg PO DAILY 07/17/20 02/22/21 gabapentin 600 mg PO DAILY 07/17/20 02/22/21 lisinopril 5 mg PO DAILY 07/17/20 02/22/21 metformin 1,000 mg PO BID 07/17/20 02/22/21 cholecalciferol (vitamin D3) 25 mcg PO DAILY 09/04/20 02/22/21 fluoxetine 20 mg capsule 20 mg PO DAILY 10/01/20 02/22/21 atorvastatin 40 mg PO DAILY 10/09/20 02/22/21 albuterol sulfate 90 mcg/actuation 2 puff INHALATION Q4-6H PRN 12/17/20 02/22/21 aerosol inhaler Tresiba FlexTouch U-100 50 unit SUBCUT QPM 12/23/20 02/22/21 Tresiba FlexTouch U-100 80 unit SUBCUT QAM 12/23/20 02/22/21 enoxaparin 110 mg SUBCUT BID 02/22/21 02/22/21 Previous Rx's Medication Instructions Recorded ferrous sulfate 324 mg PO Q48H #15 tab 01/07/21 polyethylene glycol 3350 17 g PO DAILY #30 ea 01/07/21 Allergies Allergy/AdvReac Type Severity Reaction Status Date / Time vancomycin AdvReac Severe thrombocyto Verified 01/30/21 15:42 penia Review of Systems Review of Systems: Yes all other systems are reviewed and are negative [facility] Past Medical History [facility] Narrative: Social history: The patient denies tobacco, alcohol and drug use. Medical History Amputated great toe of right foot Back pain Diabetic foot infection Drug-induced thrombocytopenia Hyperlipidemia Hypertension IDDM (insulin dependent diabetes mellitus) MGUS (monoclonal gammopathy of unknown significance) Neck pain Peripheral neuropathy Psychiatric diagnosis PVD (peripheral vascular disease) Sleep apnea Surgical History H/O colonoscopy Hx of angioplasty Hx of appendectomy Hx of foot surgery Hx of tonsillectomy Hx of umbilical hernia repair Status post below-knee amputation Family History Family History Other No history of heart disease Social History Social History Household Members: None Housing: Apartment Do you presently have visiting nurse or other home services: No Alcohol intake: never Second Hand Smoke Exposure: No Advance Directives: Yes Advance Directives on File: Yes Advance Directives Date on File: 09/27/20 service: Yes Current occupational status: unemployed Physical Exam Vital Signs: Vital Signs: Last Vital Signs Temp 98.1 F 02/22/21 16:16 Pulse 90 02/22/21 16:16 Resp 18 02/22/21 16:16 BP 125/67 02/22/21 16:16 Pulse Ox 98 02/22/21 16:16 Body Mass Index 32.1 Const: Other: Very pleasant and cooperative male patient, awake, alert, answers all questions appropriately. Orientation/consciousness: oriented to person HENMT: Head: Yes normal to inspection, Yes normocephalic and Yes atraumatic Ears: external ears normal General nose exam: Normal external nose present Face and sinus: Yes normal facial exam Mouth: Normal oral and palatal mucosa present Throat: Yes posterior oropharynx normal Eyes: Periorbital: periorbital findings normal Eyelids: Yes eyelids normal Conjunctivae: conjunctivae normal Sclerae: sclerae normal Corneas: c orneas normal Pupils: Equal, round and reactive pupils present Direct Ophthalmoscopy: normal light reflex Neck: Neck: Yes full ROM, Yes no lymphadenopathy, Yes no meningeal signs, Yes trachea midline and Yes supple Chest: Chest palpation & inspection: normal inspection of the chest and normal palpation of entire chest wall Resp: Effort & Inspection: normal respiratory effort and able to speak in complete sentences Auscultation: clear to auscultation bilaterally Cardio: Rate: regular rate Rhythm: regular rhythm Heart sounds: S1 normal heart sound present, S2 normal heart sound present and no murmurs GI: Inspection: Yes normal to inspection Palpation (GI): Soft to palpation, nontender, no guarding, not rigid and No hepatosplenomegaly present : General: Yes no CVA tenderness Back/Spine/Pelvis: Back: no CVA tenderness Cervical Spine: normal cervical lordosis Thoracic/Lumbar Spine: thoracic and lumbar spine normal to inspection Neuro: General: oriented to person and no meningeal signs Cranial nerves: Yes CN's II-XII intact bilaterally and Yes Equal, round and reactive pupils present Cognition (Neuro): normal cognition Motor exam (neuro): 5/5 motor strength present throughout Extrem: Other: The patient's left BKA stump appears to be swollen compared to the right, the end of the stump is flocculent with warm erythema, there is a small punctate wound along the medial 3rd of the incision line which has greenish purulent drainage. The stump is very tender to palpation. General: Yes normal to inspection and Yes full ROM Psych: Appearance: well kempt Mental Status: mental status grossly normal Speech and movement: Normal speech and movement present Affect: normal affect Attitude: cooperative Thought process: Normal thought process present Thought content: Normal thought content present Course Course Course Narrative: 61-year-old male with history of diabetes and bilateral ccanm-fio-igbi amputations with a recent left uxjar-xnl-dxrk amputation in December of 2020 who presents emergency department for evaluation of 2 days of increased pain, redness and swelling of the left BKA stump. Physical examination is consistent with cellulitis with purulence drainage from the incision site and possible abscess. I did order The CBC, CMP, LFTs, PT/ INR, PTT, lactic acid , wound culture and blood cultures x2. Given the patient's high BMI greater than 30, the patient will be given a normal saline bolus based on his ideal body weight. I also ordered Zosyn 4.5 g IV. I will discuss the patient's presentation with his vascular surgeon, Dr.Sandip Figueroa. 1541: Patient's laboratory evaluation revealed a normal WBC and anemia which is chronic for this patient. Urinalysis revealed positive nitrites, positive leukocyte esterase, microscopic revealed 1-4 rbc's, 15-29 WBCs and 3+ bacteria. CT scan of the left stump revealed no evidence for abscess but the patient does have induration consistent with cellulitis. The patient may have a urinary tract infection as well . The patient will need IV antibiotics.I will discuss the patient's presentation with the covering hospitalist. Medical Decision Making Lab Data Result diagrams: 02/22/21 12:07 02/22/21 12:07 Labs: Lab Results 02/22/21 02/22/21 02/22/21 Range/Units 12:07 12:07 12:07 WBC 8.5 (4.8-10.8) X10*3/uL RBC 3.61 L D (4.60-5.80) X10*6/uL Hgb 11.2 L D (14.0-18.0) g/dl Hct 32.7 L D (42-52) % MCV 90.6 (80-98) fL MCH 31.0 (27.0-33.0) pg MCHC 34.3 (31.0-36.0) g/dl RDW 13.2 (11.0-16.0) % Plt Count 201 D (160-400) X10*3/uL MPV 10.4 (9.4-12.4) fL Immature Gran % (Auto) 0.4 (0.0-0.4) % Neut % (Auto) 66.2 (45-73) % Lymph % (Auto) 21.5 (20-40) % [place] % (Auto) 10.0 (2-11) % Eos % (Auto) 1.5 (0-4) % Baso % (Auto) 0.4 (0-2) % Lymph # (Auto) 1.8 (1.2-4.9) X10*3/uL [place] # (Auto) 0.9 (0.1-1.2) X10*3/uL Eos # (Auto) 0.1 (0.0-0.4) X10*3/uL Baso # (Auto) 0.0 (0.0-0.2) X10*3/uL Abs Immat Gran (auto) 0.03 (0.00-0.03) X10*3/uL Absolute Neuts (auto) 5.6 (2.0-8.3) X10*3/uL Absolute Nucleated RBC 0.000 (0.0-0.012) X10*3/uL Nucleated RBC % (auto) 0.0 (0.0-0.2) /100WBC PT 13.7 H (9.9-13.0) SEC INR 1.2 H (0.9-1.1) APTT 46.3 H (24.1-38.0) SEC Sodium 134 L (135-145) mmol/L Potassium 4.3 (3.3-5.1) mmol/L Chloride 99 (96-108) mmol/L Carbon Dioxide 24 (22-29) mmol/L Anion Gap 15 (12-20) BUN 22 H (9-16) mg/dL Creatinine 1.04 (0.5-1.4) mg/dL Estim Creat Clear Calc 98.6 Estimated GFR > 60 Random Glucose 137 H (60-115) mg/dL Lactic Acid (0.5-2.0) mmol/L Calcium 9.1 (8.4-10.2) mg/dL Total Bilirubin 0.5 (0.0-1.0) mg/dL Direct Bilirubin 0.3 (0.0-0.5) mg/dL AST 15 (5-37) U/L ALT 16 (0-40) U/L Alkaline Phosphatase 91 (39-117) U/L Total Protein 7.1 (6.5-8.0) g/dL Albumin 3.8 (3.5-5.0) g/dL COVID-19 (JOSE) (Negative) COVID-19 Clin Com 02/22/21 02/22/21 Range/Units 12:07 14:12 WBC (4.8-10.8) X10*3/uL RBC (4.60-5.80) X10*6/uL Hgb (14.0-18.0) g/dl Hct (42-52) % MCV (80-98) fL MCH (27.0-33.0) pg MCHC (31.0-36.0) g/dl RDW (11.0-16.0) % Plt Count (160-400) X10*3/uL MPV (9.4-12.4) fL Immature Gran % (Auto) (0.0-0.4) % Neut % (Auto) (45-73) % Lymph % (Auto) (20-40) % [place] % (Auto) (2-11) % Eos % (Auto) (0-4) % Baso % (Auto) (0-2) % Lymph # (Auto) (1.2-4.9) X10*3/uL [place] # (Auto) (0.1-1.2) X10*3/uL Eos # (Auto) (0.0-0.4) X10*3/uL Baso # (Auto) (0.0-0.2) X10*3/uL Abs Immat Gran (auto) (0.00-0.03) X10*3/uL Absolute Neuts (auto) (2.0-8.3) X10*3/uL Absolute Nucleated RBC (0.0-0.012) X10*3/uL Nucleated RBC % (auto) (0.0-0.2) /100WBC PT (9.9-13.0) SEC INR (0.9-1.1) APTT (24.1-38.0) SEC Sodium (135-145) mmol/L Potassium (3.3-5.1) mmol/L Chloride (96-108) mmol/L Carbon Dioxide (22-29) mmol/L Anion Gap (12-20) BUN (9-16) mg/dL Creatinine (0.5-1.4) mg/dL Estim Creat Clear Calc Estimated GFR Random Glucose (60-115) mg/dL Lactic Acid 0.9 (0.5-2.0) mmol/L Calcium (8.4-10.2) mg/dL Total Bilirubin (0.0-1.0) mg/dL Direct Bilirubin (0.0-0.5) mg/dL AST (5-37) U/L ALT (0-40) U/L Alkaline Phosphatase (39-117) U/L Total Protein (6.5-8.0) g/dL Albumin (3.5-5.0) g/dL COVID-19 (JOSE) Negative (Negative) COVID-19 Clin Com See Note Discharge Plan Discharge Clinical Impression: Cellulitis of left lower limb Patient Disposition: Admitted As Inpatient Prescriptions: No Action atorvastatin 40 mg tablet 40 mg PO DAILY RF: 0 enoxaparin 120 mg/0.8 mL syringe 110 mg subcut BID RF: 0 gabapentin 600 mg tablet 600 mg PO DAILY RF: 0 aspirin 81 mg tablet,delayed release (DR/EC) 81 mg PO DAILY RF: 0 metformin 1,000 mg tablet 1,000 mg PO BID RF: 0 lisinopril 5 mg tablet 5 mg PO DAILY RF: 0 Victoza 3-Chet 0.6 mg/0.1 mL (18 mg/3 mL) pen injector 1.8 mg subcut DAILY RF: 0 cholecalciferol (vitamin D3) 25 mcg (1,000 unit) tablet 25 mcg PO DAILY RF: 0 Tresiba FlexTouch U-100 100 unit/mL (3 mL) insulin pen 50 unit subcut QPM RF: 0 Tresiba FlexTouch U-100 100 unit/mL (3 mL) insulin pen 80 unit subcut QAM RF: 0 ferrous sulfate 324 mg (65 mg iron) Tablet,Delayed Release (Dr/Ec) 324 mg PO Q48H Qty: 15 RF: 0 polyethylene glycol 3350 17 gram Powder In Packet 17 g PO DAILY Qty: 30 RF: 0
[2021-02-22 12:15] LABS: MANUAL DIFF FLAG NO
[2021-02-22 12:16] LABS: Basophils Percent Auto 0.4 % (0-2); Eosinophils Absolute Auto 0.1 X10*3/uL (0.0-0.4); Eosinophils Percent Auto 1.5 % (0-4); Hematocrit 32.7 % (42-52); Hemoglobin 11.2 g/dl (14.0-18.0); Imm Gran Abs Auto 0.03 X10*3/uL (0.00-0.03); Imm Gran Pct Auto 0.4 % (0.0-0.4); Lymphocytes Absolute Auto 1.8 X10*3/uL (1.2-4.9); Lymphocytes Percent Auto 21.5 % (20-40); Mean Corpuscular HGB Conc 34.3 g/dl (31.0-36.0); Mean Corpuscular Volume 90.6 fL (80-98); Mean Platelet Volume 10.4 fL (9.4-12.4); Monocytes Absolute Auto 0.9 X10*3/uL (0.1-1.2); Neutrophils Absolute Auto 5.6 X10*3/uL (2.0-8.3); Neutrophils Percent Auto 66.2 % (45-73); Platelet Count 201 X10*3/uL (160-400); Red Blood Count 3.61 X10*6/uL (4.60-5.80); Red Cell Distribution Width 13.2 % (11.0-16.0); White Blood Count 8.5 X10*3/uL (4.8-10.8)
[2021-02-22 12:23] LABS: INTERNATIONAL NORM RATIO 1.2 (0.9-1.1); Prothrombin Time 13.7 SEC (9.9-13.0)
[2021-02-22 12:26] LABS: Partial Thromboplastin Time 46.3 SEC (24.1-38.0)
[2021-02-22] MEDS: 0.9 % Sodium Chloride 2,466 ML 2466 ML IVCONT (12:28)
[2021-02-22] MEDS: Piperacillin Sodium/Tazobactam 4.5 GM in 0.9 % Sodium Chloride 100 ML IV (12:28)
--- NOTE | 2021-02-22 12:30 | PC.NURSE ---
Pt alert and oriented, BP-110/64, HR-90. LSCTA. Pt had bilateral BKA, L BKA done 01/02/21. Pt reports pain, swelling, yellow drainage to L amputation site x 2days.. He denies odor. He states he gets a visiting nurse daily to attend to his wound and she encouraged him to come to the ed. Pt on Lovenox daily. Wound culture done by Dr. Davis, labs drawn, IV established, antibiotic and fluids hung as documented. Pt resting quietly at this time.
[2021-02-22 12:40] LABS: Lactic Acid 0.9 mmol/L (0.5-2.0)
[2021-02-22 12:57] LABS: Alanine Aminotransferase 16 U/L (0-40); Albumin Level 3.8 g/dL (3.5-5.0); Alkaline Phosphatase 91 U/L (39-117); Anion Gap 15 (12-20); Aspartate Amino Transferase 15 U/L (5-37); Bilirubin Direct 0.3 mg/dL (0.0-0.5); Bilirubin Total 0.5 mg/dL (0.0-1.0); Blood Urea Nitrogen 22 mg/dL (9-16); Calcium 9.1 mg/dL (8.4-10.2); Carbon Dioxide 24 mmol/L (22-29); Chloride 99 mmol/L (96-108); Creatinine Clr Calc Pharmacy 98.6; Estimated Glomerular Filt Rate > 60; Glucose Random 137 mg/dL (60-115); Potassium 4.3 mmol/L (3.3-5.1); Sodium 134 mmol/L (135-145); Total Protein 7.1 g/dL (6.5-8.0)
[2021-02-22] MEDS: iohexoL 350 MG/ML 100 ML INFUS..BTL IV (13:42)
[2021-02-22 14:39] LABS: COVID-19 Test Negative (Negative); IDNOW Serial# 9DD0AD1C
--- NOTE | 2021-02-22 15:04 | PC.NURSE ---
Pt afebrile, Antibiotic infusion completed, fluids continues to infuse. Pt repositioned, warm blanket given. Pt awaiting bed assignment.,
--- NOTE | 2021-02-22 16:18 | PC.NURSE ---
Hospitalist at bedside, fluids ended, VS documented.
--- NOTE | 2021-02-22 16:40 | P.HPHOSP_ITS ---
History of Present Illness Date of Service: 02/22/21 Chief Complaint: left stump pain and redness this is a 61-year-old male with multiple medical problems who underwent a left BKA in December of this year. His postoperative course was uncomplicated and his wound appear to be healing well until 2 days ago. For 2 days he has been having redness swelling and pain at his amputation site. He has noticed purulent drainage from a small opening in the incision area. He has had associated nausea and chills. He denies any abdominal pain. In the emergency department he was afebrile. Basic labs were were drawn and relatively unremarkable. There is no evidence of sepsis. CT scan of the left knee was obtained and showed no evidence of abscess or fluid collection. Urinalysis was also obtained which showed possibility of UTI. He was started on IV antibiotics and the decision was made to admit him for further management. Review of Systems Review of Systems: Yes all other systems are reviewed and are negative Constitutional: Constitutional: Denies fever(s) Cardiovascular: Cardiovascular: Denies chest pain Respiratory: Respiratory: Denies cough Gastrointestinal: Gastrointestinal: Denies abdominal pain, Reports nausea and Denies vomiting [facility] Medical History Amputated great toe of right foot Back pain Diabetic foot infection Drug-induced thrombocytopenia Hyperlipidemia Hypertension IDDM (insulin dependent diabetes mellitus) MGUS (monoclonal gammopathy of unknown significance) Neck pain Peripheral neuropathy Psychiatric diagnosis PVD (peripheral vascular disease) Sleep apnea Functional capacity: wheelchair bound Family History Other No history of heart disease Surgical History H/O colonoscopy Hx of angioplasty Hx of appendectomy Hx of foot surgery Hx of tonsillectomy Hx of umbilical hernia repair Status post below-knee amputation Social History Household Members: None Housing: Apartment Do you presently have visiting nurse or other home services: No Alcohol intake: never Second Hand Smoke Exposure: No Advance Directives: Yes Advance Directives on File: Yes Advance Directives Date on File: 09/27/20 service: Yes Current occupational status: unemployed Meds Allergies Allergy/AdvReac Type Severity Reaction Status Date / Time vancomycin AdvReac Severe thrombocyto Verified 01/30/21 15:42 penia Home Medications Medication Instructions Recorded Confirmed Last Taken Type Victoza 3-Chet 1.8 mg SUBCUT DAILY 07/17/20 02/22/21 12/23/20 09:00 History aspirin 81 mg PO DAILY 07/17/20 02/22/21 12/23/20 09:00 History gabapentin 600 mg PO DAILY 07/17/20 02/22/21 12/23/20 09:00 History lisinopril 5 mg PO DAILY 07/17/20 02/22/21 12/23/20 09:00 History metformin 1,000 mg PO BID 07/17/20 02/22/21 12/23/20 09:00 History cholecalciferol (vitamin D3) 25 mcg PO DAILY 09/04/20 02/22/21 12/23/20 09:00 History fluoxetine 20 mg capsule 20 mg PO DAILY 10/01/20 02/22/21 12/23/20 09:00 History atorvastatin 40 mg PO DAILY 10/09/20 02/22/21 12/23/20 09:00 History albuterol sulfate 90 mcg/actuation 2 puff INHALATION Q4-6H PRN 12/17/20 02/22/21 Unknown History aerosol inhaler Tresiba FlexTouch U-100 50 unit SUBCUT QPM 12/23/20 02/22/21 12/23/20 09:00 History Tresiba FlexTouch U-100 80 unit SUBCUT QAM 12/23/20 02/22/21 12/23/20 09:00 History enoxaparin 110 mg SUBCUT BID 02/22/21 02/22/21 02/22/21 History Physical Exam Vital Signs and Narrative: Vital Signs: Last Vital Signs Temp 98.1 F 02/22/21 16:16 Pulse 90 02/22/21 16:16 Resp 18 02/22/21 16:16 BP 125/67 02/22/21 16:16 Pulse Ox 98 02/22/21 16:16 Body Mass Index 32.1 Const: General: comfortable, no acute distress, alert and awake Nutritional Appearance: well nourished and overweight Orientation/consciousness: patient oriented x3 HENMT: Head: Yes normocephalic and Yes atraumatic Eyes: Sclerae: sclerae normal Chest: Chest palpation & inspection: normal inspection of the chest Resp: Effort & Inspection: normal respiratory effort and no respiratory distress Cardio: Rate: regular rate Rhythm: regular rhythm GI: Palpation (GI): Soft to palpation and nontender Skin: Other: Neuro: General: patient oriented x3 Cranial nerves: Yes CN's II-XII intact bilaterally and Yes Bilaterally intact EOM present Extrem: Other: s/p b/l LE BKA Results Labs CBC and Chem 7: 02/22/21 12:07 02/22/21 12:07 Labs: Laboratory Results - last 24 hr 02/22/21 02/22/21 02/22/21 12:07 12:07 12:07 MCV 90.6 MCH 31.0 MCHC 34.3 RDW 13.2 Plt Count 201 D MPV 10.4 Immature Gran % (Auto) 0.4 Neut % (Auto) 66.2 Lymph % (Auto) 21.5 [place] % (Auto) 10.0 Eos % (Auto) 1.5 Baso % (Auto) 0.4 Lymph # (Auto) 1.8 [place] # (Auto) 0.9 Eos # (Auto) 0.1 Baso # (Auto) 0.0 Abs Immat Gran (auto) 0.03 Absolute Neuts (auto) 5.6 Absolute Nucleated RBC 0.000 Nucleated RBC % (auto) 0.0 PT 13.7 H INR 1.2 H APTT 46.3 H Anion Gap 15 Estim Creat Clear Calc 98.6 Estimated GFR > 60 Random Glucose 137 H Lactic Acid Calcium 9.1 Total Bilirubin 0.5 Direct Bilirubin 0.3 AST 15 ALT 16 Alkaline Phosphatase 91 Total Protein 7.1 Albumin 3.8 COVID-19 (JOSE) COVID-19 Clin Com 02/22/21 02/22/21 12:07 14:12 MCV MCH MCHC RDW Plt Count MPV Immature Gran % (Auto) Neut % (Auto) Lymph % (Auto) [place] % (Auto) Eos % (Auto) Baso % (Auto) Lymph # (Auto) [place] # (Auto) Eos # (Auto) Baso # (Auto) Abs Immat Gran (auto) Absolute Neuts (auto) Absolute Nucleated RBC Nucleated RBC % (auto) PT INR APTT Anion Gap Estim Creat Clear Calc Estimated GFR Random Glucose Lactic Acid 0.9 Calcium Total Bilirubin Direct Bilirubin AST ALT Alkaline Phosphatase Total Protein Albumin COVID-19 (JOSE) Negative COVID-19 Clin Com See Note Imaging Radiologist's Impressions: Impressions Chest X-Ray 02/22/21 11:42 IMPRESSION: Unremarkable examination. Lower Extremity CT 02/22/21 12:45 IMPRESSION: No abscess. Assessment and Plan (1) S/P BKA (below knee amputation) bilateral: Status: Acute (2) Cellulitis: Status: Acute This is a 61-year-old male with a history of diabetes, hypertension, dyslipidemia, bilateral BKA who presents to the emergency department with pain and swelling of left lower extremity amputation site cellulitis of left lower extremity amputation site no evidence of sepsis given purulent drainage will cover for MRSA - IV vancomycin, Zosyn - follow blood cultures - vascular surgery consult possible UTI will be covered with above antibiotics - follow urine culture diabetes - Victoza is non formulary and will be placed on hold, hold metformin - Tresiba is non formulary and will be converted to Lantus - SSI, POC, ADA diet hyperlipidemia -Continue statin Hypertension Blood pressure controlled -continue lisinopril history of PE - continue therapeutic Lovenox DVT prophylaxis -Lovenox Attending-Dr. Gatica Quality Stroke Does the patient have a stroke diagnosis?: No VTE Prior VTE?: Yes VTE Risk Level:: Medical - moderate - high VTE Device Contraindication: Treatment Not Indicated VTE Drug Contraindication: N/A - Med Ordered
--- NOTE | 2021-02-22 17:36 | PM.EVENT ---
Event Note Date of Service: 02/22/21 Event Note: the patient was seen and evaluated with GABINO Tyler. I agree with her note, assessment and plan with the following. This is a 61 years old male with PMH of diabetes, HTN, MGUS, DVT, sleep apnea among others who presented to the hospital with draining wound from stump post left BKA in December 2020. the patient reports he was doing well until the last 2 days ago when he started to notice pain and drainage from the wound which was healing well. He denies any fevers, chest pain, nausea or vomiting or change in bowel habit. Cellulitis at stump site Left knee CT scan negative for any collection or osteomyelitis Pending cultures Start IV doxycycline and Zosyn Vascular surgery evaluation Rest of evaluations by PA note.
--- NOTE | 2021-02-22 18:09 | PC.NURSE ---
Report given to receiving nurse FAITH Manzo. Pt eating dinner at this time.
[2021-02-22] MEDS: Piperacillin Sodium/Tazobactam 3.375 GM in 0.9 % Sodium Chloride 50 ML IV (20:15)
[2021-02-22 20:39] LABS: Glucose, Whole Blood 118 mg/dL (60-115)
[2021-02-22] MEDS: Doxycycline Hyclate 100 MG in 0.9 % Sodium Chloride 250 ML 166.67 MG IV (20:48)
[2021-02-22] MEDS: Insulin Glargine,Hum.rec.anlog 100 UNIT/ML 10 ML VIAL 35 UNIT SUBCUT (20:48)
[2021-02-22] MEDS: Acetaminophen 325 MG TABLET 650 MG PO (20:49)
[2021-02-22] MEDS: Enoxaparin Sodium 120 MG/0.8 ML SYRINGE 110 MG SUBCUT (20:49)
[2021-02-22] MEDS: 0.9 % Sodium Chloride Flush 3 ML SYRINGE IVFLUSH (23:23)
[2021-02-23] VITALS (7 sets, daily range): BP systolic 96–130; BP diastolic 55–68; PULSE 71–86; RESP 16–18; TEMP 36–37; O2SAT 94–98
[2021-02-23] MEDS: oxyCODONE HCl Immed Release 5 MG TABLET PO ×2 (00:20→20:55)
[2021-02-23] MEDS: Piperacillin Sodium/Tazobactam 3.375 GM in 0.9 % Sodium Chloride 50 ML IV ×4 (01:35→19:34)
[2021-02-23 05:27] LABS: Hematocrit 31.5 % (42-52); Hemoglobin 10.4 g/dl (14.0-18.0); Mean Corpuscular Hemoglobin 30.8 pg (27.0-33.0); Mean Corpuscular Volume 93.2 fL (80-98); Mean Platelet Volume 11.3 fL (9.4-12.4); Platelet Count 180 X10*3/uL (160-400); Red Blood Count 3.38 X10*6/uL (4.60-5.80); Red Cell Distribution Width 12.9 % (11.0-16.0); White Blood Count 7.5 X10*3/uL (4.8-10.8)
[2021-02-23 05:51] LABS: Anion Gap 16 (12-20); Blood Urea Nitrogen 17 mg/dL (9-16); Calcium 8.5 mg/dL (8.4-10.2); Carbon Dioxide 18 mmol/L (22-29); Chloride 106 mmol/L (96-108); Creatinine Clr Calc Pharmacy 99.5; Estimated Glomerular Filt Rate > 60; Glucose Random 87 mg/dL (60-115); Potassium 4.5 mmol/L (3.3-5.1); Sodium 135 mmol/L (135-145)
[2021-02-23 07:48] LABS: Glucose, Whole Blood 88 mg/dL (60-115)
[2021-02-23] MEDS: Gabapentin 600 MG TABLET PO (08:18)
[2021-02-23] MEDS: Atorvastatin Calcium 40 MG TABLET PO (08:18)
[2021-02-23] MEDS: Aspirin Enteric Coated 81 MG TABLET.DR PO (08:18)
[2021-02-23] MEDS: Cholecalciferol (Vitamin D3) 25 MCG TABLET PO (08:18)
[2021-02-23] MEDS: Enoxaparin Sodium 120 MG/0.8 ML SYRINGE 110 MG SUBCUT ×2 (08:19→20:55)
[2021-02-23] MEDS: polyethylene glycoL 3350 17 GM POWD.PACK PO ×2 (08:20→22:01)
[2021-02-23] MEDS: 0.9 % Sodium Chloride Flush 3 ML SYRINGE IVFLUSH ×3 (08:24→23:58)
[2021-02-23 09:20] LABS: Glucose, Whole Blood 127 mg/dL (60-115)
[2021-02-23] MEDS: Doxycycline Hyclate 100 MG in 0.9 % Sodium Chloride 250 ML 166.67 MG IV ×2 (09:24→20:54)
[2021-02-23] MEDS: Insulin Glargine,Hum.rec.anlog 100 UNIT/ML 10 ML VIAL 45 UNIT SUBCUT (09:25)
--- NOTE | 2021-02-23 09:55 | MHC.CM.PN ---
PATIENT LIVES ALONE. HE IS ACTIVE WITH CRISTIANE BYERS FOR RN SKILLS. AGENCY VISITS ARE ONCE A WEEK AT THIS TIME. PATIENT HAS A BI-PAP, POWER CHAIR, BEDSIDE COMMODE, AND GRAB BARS IN THE HOME CASE MANAGEMENT FOLLOWING. HCP ON FILE AND VERIFIED. IMM 02/23 IN CHART.
--- NOTE | 2021-02-23 11:49 | P.PNIM_ITS ---
Subjective Subjective Date of Service: 02/23/21 Interval History: the patient was seen and evaluated this morning complaining of pain at the wound site Denies any fever, chills or shortness of breath No reported other overnight events. Systemic review: No fever, chills or weakness No chest pain, palpitation No shortness of breath or coughing No abdominal pain, nausea or vomiting No urinary symptoms Physical Exam Vital Signs: Vital Signs: Last Vital Signs Temp 96.8 F 02/23/21 11:21 Pulse 79 02/23/21 11:21 Resp 18 02/23/21 11:21 BP 112/68 02/23/21 11:21 Pulse Ox 96 02/23/21 11:21 Body Mass Index 32.1 Const: Other: Constitutional : Alert, oriented, not in distress Neck : Normal inspection, Supple Cardiovascular : RRR, S1 S2, no lower extremity edema Respiratory : Good bilateral air entry, no crackles, wheezes or rhonchi Gastrointestinal: soft, lax, Normal bowel sounds, Non tender Skin : Warm/Dry, stump area with mild erythema and tenderness to touch Skeletal, Lt below-knee amputation Neurological : Alert & oriented x3, No focal deficit Objective Data Current Medications Generic Name Dose Route Start Last Admin Trade Name Freq PRN Reason Stop Dose Admin Acetaminophen 650 mg 02/22/21 19:23 02/22/21 20:49 Acetaminophen 325 Mg Tablet PO 650 mg Q6H PRN Administration Pain, Mild (Pain Scale 1-3) Aspirin 81 mg 02/23/21 09:00 02/23/21 08:18 Aspirin Enteric Coated 81 Mg Tablet. PO 81 mg DAILY TJ Administration Atorvastatin Calcium 40 mg 02/23/21 09:00 02/23/21 08:18 Atorvastatin Calcium 40 Mg Tablet PO 40 mg DAILY TJ Administration Docusate Sodium 100 mg 02/22/21 19:23 Docusate Sodium 100 Mg Capsule PO DAILY PRN Constipation Enoxaparin Sodium 110 mg 02/22/21 21:00 02/23/21 08:19 Enoxaparin Sodium 120 Mg/0.8 Ml Syringe SUBCUT 110 mg BID TJ Administration Ferrous Sulfate 324 mg 02/24/21 09:00 Ferrous Sulfate 324 Mg Tablet. PO Q48H TJ Gabapentin 600 mg 02/23/21 09:00 02/23/21 08:18 Gabapentin 600 Mg Tablet PO 600 mg DAILY TJ Administration Piperacillin Sod/Tazobactam 50 mls @ 100 mls/hr 02/22/21 20:00 02/23/21 09:25 Sod 3.375 gm/ Sodium Chloride IV Infused Q6H [facility] Infusion Doxycycline Hyclate 100 mg/ 250 mls @ 166.67 mls/hr 02/22/21 21:00 02/23/21 11:48 Sodium Chloride IV Infused Q12H TJ Infusion Insulin Glargine 45 unit 02/23/21 09:00 02/23/21 09:25 Insulin Glargine,Hum.Rec.Anlog 100 Unit/Ml 10 Ml Vial SUBCUT 45 unit DAILY [facility] Administration Insulin Glargine 30 unit 02/23/21 21:00 Insulin Glargine,Hum.Rec.Anlog 100 Unit/Ml 10 Ml Vial SUBCUT BEDTIME [facility] Insulin Human Lispro 0 unit 02/22/21 21:00 02/23/21 07:51 Insulin Lispro 100 Unit/Ml 3 Ml Vial SUBCUT Not Given QIDACHS [facility] Protocol Ondansetron HCl 4 mg 02/22/21 19:23 Ondansetron Hcl 4 Mg/2 Ml Vial IVPUSH Q8H PRN Nausea and Vomiting Oxycodone HCl 5 mg 02/23/21 10:06 Oxycodone Hcl Immed Release 5 Mg Tablet PO Q6H PRN Pain, Severe (Pain Scale 7-10) Polyethylene Glycol 17 gm 02/23/21 09:00 02/23/21 08:20 Polyethylene Glycol 3350 17 Gm Powd.Pack PO 17 gm DAILY [facility] Administration Sodium Chloride 3 ml 02/23/21 00:00 02/23/21 08:24 0.9 % Sodium Chloride Flush 3 Ml Syringe IVFLUSH 3 ml QSHIFT [facility] Administration Vitamin D 25 mcg 02/23/21 09:00 02/23/21 08:18 Cholecalciferol (Vitamin D3) 25 Mcg Tablet PO 25 mcg DAILY TJ Administration Labs CBC & Chem 7: 02/23/21 05:04 02/23/21 05:04 Labs: Laboratory Results - last 24 hr 02/22/21 02/22/21 02/22/21 12:07 12:07 12:07 WBC 8.5 RBC 3.61 L D Hgb 11.2 L D Hct 32.7 L D MCV 90.6 MCH 31.0 MCHC 34.3 RDW 13.2 Plt Count 201 D MPV 10.4 Immature Gran % (Auto) 0.4 Neut % (Auto) 66.2 Lymph % (Auto) 21.5 [place] % (Auto) 10.0 Eos % (Auto) 1.5 Baso % (Auto) 0.4 Lymph # (Auto) 1.8 [place] # (Auto) 0.9 Eos # (Auto) 0.1 Baso # (Auto) 0.0 Abs Immat Gran (auto) 0.03 Absolute Neuts (auto) 5.6 Absolute Nucleated RBC 0.000 Nucleated RBC % (auto) 0.0 PT 13.7 H INR 1.2 H APTT 46.3 H Sodium 134 L Potassium 4.3 Chloride 99 Carbon Dioxide 24 Anion Gap 15 BUN 22 H Creatinine 1.04 Estim Creat Clear Calc 98.6 Estimated GFR > 60 POC Glucose Random Glucose 137 H Lactic Acid Calcium 9.1 Total Bilirubin 0.5 Direct Bilirubin 0.3 AST 15 ALT 16 Alkaline Phosphatase 91 Total Protein 7.1 Albumin 3.8 COVID-19 (JOSE) COVID-19 [place] 02/22/21 02/22/21 02/22/21 12:07 14:12 20:35 WBC RBC Hgb Hct MCV MCH MCHC RDW Plt Count MPV Immature Gran % (Auto) Neut % (Auto) Lymph % (Auto) [place] % (Auto) Eos % (Auto) Baso % (Auto) Lymph # (Auto) [place] # (Auto) Eos # (Auto) Baso # (Auto) Abs Immat Gran (auto) Absolute Neuts (auto) Absolute Nucleated RBC Nucleated RBC % (auto) PT INR APTT Sodium Potassium Chloride Carbon Dioxide Anion Gap BUN Creatinine Estim Creat Clear Calc Estimated GFR POC Glucose 118 H Random Glucose Lactic Acid 0.9 Calcium Total Bilirubin Direct Bilirubin AST ALT Alkaline Phosphatase Total Protein Albumin COVID-19 (JOSE) Negative COVID-19 [place] Com See Note 02/23/21 02/23/21 02/23/21 05:04 05:04 07:41 WBC 7.5 RBC 3.38 L Hgb 10.4 L Hct 31.5 L MCV 93.2 MCH 30.8 MCHC 33.0 RDW 12.9 Plt Count 180 MPV 11.3 Immature Gran % (Auto) Neut % (Auto) Lymph % (Auto) [place] % (Auto) Eos % (Auto) Baso % (Auto) Lymph # (Auto) [place] # (Auto) Eos # (Auto) Baso # (Auto) Abs Immat Gran (auto) Absolute Neuts (auto) Absolute Nucleated RBC 0.000 Nucleated RBC % (auto) 0.0 PT INR APTT Sodium 135 Potassium 4.5 Chloride 106 Carbon Dioxide 18 L Anion Gap 16 BUN 17 H Creatinine 1.03 Estim Creat Clear Calc 99.5 Estimated GFR > 60 POC Glucose 88 Random Glucose 87 D Lactic Acid Calcium 8.5 D Total Bilirubin Direct Bilirubin AST ALT Alkaline Phosphatase Total Protein Albumin COVID-19 (JOSE) COVID-19 [place] Com 02/23/21 09:17 WBC RBC Hgb Hct MCV MCH MCHC RDW Plt Count MPV Immature Gran % (Auto) Neut % (Auto) Lymph % (Auto) [place] % (Auto) Eos % (Auto) Baso % (Auto) Lymph # (Auto) [place] # (Auto) Eos # (Auto) Baso # (Auto) Abs Immat Gran (auto) Absolute Neuts (auto) Absolute Nucleated RBC Nucleated RBC % (auto) PT INR APTT Sodium Potassium Chloride Carbon Dioxide Anion Gap BUN Creatinine Estim Creat Clear Calc Estimated GFR POC Glucose 127 H Random Glucose Lactic Acid Calcium Total Bilirubin Direct Bilirubin AST ALT Alkaline Phosphatase Total Protein Albumin COVID-19 (JOSE) COVID-19 Clin Com Microbiology Microbiology Results: Microbiology 02/22/21 12:23 Gram Stain - Final Leg - Left Routine Culture - Preliminary Staphylococcus aureus 02/22/21 14:12 Urine Culture - Final Urine clean catch - Clean Catch Midstream No growth. Quality Stroke Does the patient have a stroke diagnosis?: No VTE Prior VTE?: Yes VTE Risk Level:: Medical - moderate - high VTE Device Contraindication: Treatment Not Indicated VTE Drug Contraindication: N/A - Med Ordered Assessment and Plan (1) S/P BKA (below knee amputation) bilateral: Status: Acute (2) Cellulitis: Status: Acute Assessment and Plan: This is a 61-year-old male with a history of diabetes, hypertension, dyslipidemia, bilateral BKA who presents to the emergency department with pain and swelling of left lower extremity amputation site cellulitis LLE BKA stump no evidence of sepsis a IV doxycycline, Zosyn pending wound and blood cultures pending vascular surgery consult UTI continue antibiotics follow urine culture diabetes hold p.o. medications Continue Lantus, decrease the doses today SSI, POC, ADA diet hyperlipidemia Continue statin Hypertension Blood pressure controlled continue lisinopril history of PE continue therapeutic Lovenox DVT prophylaxis Lovenox
[2021-02-23 11:58] LABS: Glucose, Whole Blood 130 mg/dL (60-115)
[2021-02-23 15:54] LABS: Glucose, Whole Blood 131 mg/dL (60-115)
[2021-02-23 19:35] LABS: Glucose, Whole Blood 139 mg/dL (60-115)
[2021-02-23] MEDS: Insulin Glargine,Hum.rec.anlog 100 UNIT/ML 10 ML VIAL 30 UNIT SUBCUT (20:54)
--- NOTE | 2021-02-23 21:55 | PM.EVENT ---
Event Note Date of Service: 02/23/21 Event Note: pt complaining of right upper quadrant abd pain, only on palpation. not associated with n/v, not associated with food intake. started yesterday. only feels it when it touches that area and also right lower ribs. exam, shows hemodynamically stable male. vitals normal. no acute distress. pain is reproducible in the right upper quadrant and right lower rib cage pain. Abd US ordered. toradol ordered
[2021-02-23] MEDS: Sodium Phosphate,Mono-Dibasic 133 ML ENEMA PR (21:58)
[2021-02-23] MEDS: Ketorolac Tromethamine 15 MG/ML VIAL IVPUSH (22:07)
[2021-02-24] VITALS (9 sets, daily range): BP systolic 105–137; BP diastolic 57–70; PULSE 66–85; RESP 16–18; TEMP 36.1–37.2; O2SAT 94–99
[2021-02-24] MEDS: Piperacillin Sodium/Tazobactam 3.375 GM in 0.9 % Sodium Chloride 50 ML IV ×4 (01:44→20:01)
[2021-02-24 06:46] LABS: Hematocrit 30.8 % (42-52); Hemoglobin 10.1 g/dl (14.0-18.0); Mean Corpuscular HGB Conc 32.8 g/dl (31.0-36.0); Mean Corpuscular Hemoglobin 30.5 pg (27.0-33.0); Mean Corpuscular Volume 93.1 fL (80-98); Mean Platelet Volume 11.1 fL (9.4-12.4); Platelet Count 199 X10*3/uL (160-400); Red Blood Count 3.31 X10*6/uL (4.60-5.80); Red Cell Distribution Width 12.8 % (11.0-16.0); White Blood Count 6.6 X10*3/uL (4.8-10.8)
[2021-02-24 07:18] LABS: Glucose, Whole Blood 142 mg/dL (60-115)
[2021-02-24 07:24] LABS: Anion Gap 14 (12-20); Blood Urea Nitrogen 20 mg/dL (9-16); Calcium 8.9 mg/dL (8.4-10.2); Carbon Dioxide 24 mmol/L (22-29); Chloride 102 mmol/L (96-108); Creatinine Clr Calc Pharmacy 96.7; Estimated Glomerular Filt Rate > 60; Glucose Random 178 mg/dL (60-115); Potassium 4.8 mmol/L (3.3-5.1); Sodium 135 mmol/L (135-145)
--- NOTE | 2021-02-24 07:37 | PM.CNGS ---
History of Present Illness Consult details Consult date: 02/24/21 Narrative: 61-year-old gentleman well known to me with cellulitis of the left below-knee amputation. Of note I had performed both below-knee amputations on him. He had been doing fairly well till about 4 5 days ago. He do not is some cellulitis on the left pretibial surface going on down on to the stump incision line. He became concerned as it became harden. He subsequently presented to the ER and was admitted. He has been treated with IV antibiotics. States that he is feeling significantly better. Review of Systems Review of Systems: Yes all other systems are reviewed and are negative Constitutional: Constitutional: Reports no additional constitutional complaints ENT: Reports Normal hearing present Cardiovascular: Cardiovascular: Denies chest pain, Denies chest pain at rest, Denies chest pain with activity and Denies pedal edema Respiratory: Respiratory: Denies cough Gastrointestinal: Gastrointestinal: Denies abdominal pain Musculoskeletal: Musculoskeletal: Denies abnormal gait, Denies muscle cramps and Denies radiating pain into limb Integumentary/Breasts: Skin/Breast: Denies skin ulcer and Denies wounds Neurologic: Reports Normal hearing present and Denies abnormal gait Psychiatric: Psychiatric: Reports no additional psychiatric complaints PMFSH Past Medical History Medical History Amputated great toe of right foot Back pain Diabetic foot infection Drug-induced thrombocytopenia Hyperlipidemia Hypertension IDDM (insulin dependent diabetes mellitus) MGUS (monoclonal gammopathy of unknown significance) Neck pain Peripheral neuropathy Psychiatric diagnosis PVD (peripheral vascular disease) Sleep apnea Functional capacity: wheelchair bound Family History Family History Other No history of heart disease Surgical History Surgical History H/O colonoscopy Hx of angioplasty Hx of appendectomy Hx of foot surgery Hx of tonsillectomy Hx of umbilical hernia repair Status post below-knee amputation Social History Social History Household Members: None Housing: Apartment Do you presently have visiting nurse or other home services: Yes Alcohol intake: never Patient Tobacco Use Status: Former Tobacco user Second Hand Smoke Exposure: No Use of substances other than those prescribed or required for medical reasons: Yes Currently Displaying Signs/Symptoms of Drug Intoxication Withdrawal: No Have you been hit, kicked, punched, or otherwise hurt by someone within the past year? If so, by whom?: No Do you feel safe in your current relationship?: Yes Is there a partner from a previous relationship who is making you feel unsafe now?: No Are you made to feel afraid or neglected: No Advance Directives: Yes Advance Directives on File: Yes Advance Directives Date on File: 09/27/20 Do you have thoughts of harming others: None Do you have a plan to hurt others: No Plan Recently lost weight without trying: No Nutrition Risks: No Nutritional Risk Poor oral hygiene: No service: Yes Current occupational status: unemployed Meds Allergies Allergy/AdvReac Type Severity Reaction Status Date / Time vancomycin AdvReac Severe thrombocyto Verified 01/30/21 15:42 penia Active Medications: Current Medications Generic Name Dose Route Start Last Admin Trade Name Freq PRN Reason Stop Dose Admin Acetaminophen 650 mg 02/22/21 19:23 02/22/21 20:49 Acetaminophen 325 Mg Tablet PO 650 mg Q6H PRN Administration Pain, Mild (Pain Scale 1-3) Aspirin 81 mg 02/23/21 09:00 02/23/21 08:18 Aspirin Enteric Coated 81 Mg Tablet. PO 81 mg DAILY TJ Administration Atorvastatin Calcium 40 mg 02/23/21 09:00 02/23/21 08:18 Atorvastatin Calcium 40 Mg Tablet PO 40 mg DAILY TJ Administration Docusate Sodium 100 mg 02/22/21 19:23 Docusate Sodium 100 Mg Capsule PO DAILY PRN Constipation Enoxaparin Sodium 110 mg 02/22/21 21:00 02/23/21 20:55 Enoxaparin Sodium 120 Mg/0.8 Ml Syringe SUBCUT 110 mg BID TJ Administration Ferrous Sulfate 324 mg 02/24/21 09:00 Ferrous Sulfate 324 Mg Tablet.Dr LÓPEZ Q48H TJ Gabapentin 600 mg 02/23/21 09:00 02/23/21 08:18 Gabapentin 600 Mg Tablet PO 600 mg DAILY TJ Administration Piperacillin Sod/Tazobactam 50 mls @ 100 mls/hr 02/22/21 20:00 02/24/21 03:13 Sod 3.375 gm/ Sodium Chloride IV Infused Q6H TJ Infusion Doxycycline Hyclate 100 mg/ 250 mls @ 166.67 mls/hr 02/22/21 21:00 02/23/21 22:41 Sodium Chloride IV Infused Q12H TJ Infusion Insulin Glargine 45 unit 02/23/21 09:00 02/23/21 09:25 Insulin Glargine,Hum.Rec.Anlog 100 Unit/Ml 10 Ml Vial SUBCUT 45 unit DAILY TJ Administration Insulin Glargine 30 unit 02/23/21 21:00 02/23/21 20:54 Insulin Glargine,Hum.Rec.Anlog 100 Unit/Ml 10 Ml Vial SUBCUT 30 unit BEDTIME TJ Administration Insulin Human Lispro 0 unit 02/22/21 21:00 02/24/21 07:35 Insulin Lispro 100 Unit/Ml 3 Ml Vial SUBCUT Not Given QIDACHS [facility] Protocol Ondansetron HCl 4 mg 02/22/21 19:23 Ondansetron Hcl 4 Mg/2 Ml Vial IVPUSH Q8H PRN Nausea and Vomiting Oxycodone HCl 5 mg 02/23/21 10:06 02/23/21 20:55 Oxycodone Hcl Immed Release 5 Mg Tablet PO 5 mg Q6H PRN Administration Pain, Severe (Pain Scale 7-10) Polyethylene Glycol 17 gm 02/23/21 09:00 02/23/21 08:20 Polyethylene Glycol 3350 17 Gm Powd.Pack PO 17 gm DAILY TJ Administration Polyethylene Glycol 17 gm 02/23/21 21:10 02/23/21 22:01 Polyethylene Glycol 3350 17 Gm Powd.Pack PO 17 gm DAILY TJ Administration Sodium Chloride 3 ml 02/23/21 00:00 02/23/21 23:58 0.9 % Sodium Chloride Flush 3 Ml Syringe IVFLUSH 3 ml QSHIFT [facility] Administration Vitamin D 25 mcg 02/23/21 09:00 02/23/21 08:18 Cholecalciferol (Vitamin D3) 25 Mcg Tablet PO 25 mcg DAILY TJ Administration Home Medications Medication Instructions Recorded Confirmed Last Taken Type Victoza 3-Chet 1.8 mg SUBCUT DAILY 07/17/20 02/22/21 12/23/20 09:00 History aspirin 81 mg PO DAILY 07/17/20 02/22/21 12/23/20 09:00 History gabapentin 600 mg PO DAILY 07/17/20 02/22/2121 09:00 History lisinopril 5 mg PO DAILY 07/17/20 02/22/21 12/23/20 09:00 History metformin 1,000 mg PO BID 07/17/20 02/22/21 12/23/20 09:00 History cholecalciferol (vitamin D3) 25 mcg PO DAILY 09/04/20 02/22/21 12/23/20 09:00 History fluoxetine 20 mg capsule 20 mg PO DAILY 10/01/20 02/22/21 12/23/20 09:00 History atorvastatin 40 mg PO DAILY 10/09/20 02/22/21 12/23/20 09:00 History albuterol sulfate 90 mcg/actuation 2 puff INHALATION Q4-6H PRN 12/17/20 02/22/21 Unknown History aerosol inhaler Tresiba FlexTouch U-100 50 unit SUBCUT QPM 12/23/20 02/22/21 12/23/20 09:00 History Tresiba FlexTouch U-100 80 unit SUBCUT QAM 12/23/20 02/22/21 12/23/20 09:00 History enoxaparin 110 mg SUBCUT BID 02/22/21 02/22/21 02/22/21 History Physical Exam Vital Signs: Vital Signs: Last Vital Signs Temp 97.2 F 02/24/21 07:08 Pulse 66 02/24/21 07:08 Resp 18 02/24/21 07:08 BP 111/60 02/24/21 07:08 Pulse Ox 99 02/24/21 07:08 Body Mass Index 32.1 Const: General: cooperative, healthy appearing and comfortable Orientation/consciousness: oriented to person, oriented to place and oriented to time HENMT: Head: Yes normal to inspection Neck: Neck: Yes normal visual inspection Carotids: no bruits Chest: Chest palpation & inspection: normal inspection of the chest Resp: Effort & Inspection: normal respiratory effort and able to speak in complete sentences Auscultation: clear to auscultation bilaterally, no crackles, no rales, no rhonchi and no wheezes Cardio: Rate: regular rate Rhythm: regular rhythm Heart sounds: S1 normal heart sound present and S2 normal heart sound present Bruits: no carotid bruits Peripheral pulses: Peripheral pulses 2+ throughout GI: Inspection: Yes normal to inspection Skin: Wounds: amputation site ( Bilateral healed; cellulitis of the left stump) Hair: normal Neuro: General: oriented to person, oriented to place and oriented to time Cranial nerves: Yes CN's II-XII intact bilaterally and Yes Normal hearing present Cognition (Neuro): normal cognition Motor exam (neuro): 5/5 motor strength present throughout Extrem: Other: venous exam: No significant superficial varicosities or spider telangiectasias, minimal edema General: No clubbing, No cyanosis and No edema Psych: Appearance: grossly normal Mental Status: mental status grossly normal Speech and movement: Normal speech and movement present Results Labs Result diagrams: 02/24/21 05:53 02/24/21 05:53 Labs: Abnormal lab results 02/23/21 02/23/21 02/23/21 Range/Units 09:17 11:19 15:50 RBC (4.60-5.80) X10*6/uL Hgb (14.0-18.0) g/dl Hct (42-52) % BUN (9-16) mg/dL POC Glucose 127 H 130 H 131 H (60-115) mg/dL Random Glucose (60-115) mg/dL 02/23/21 02/24/21 02/24/21 Range/Units 19:31 05:53 05:53 RBC 3.31 L (4.60-5.80) X10*6/uL Hgb 10.1 L (14.0-18.0) g/dl Hct 30.8 L (42-52) % BUN 20 H (9-16) mg/dL POC Glucose 139 H (60-115) mg/dL Random Glucose 178 H D (60-115) mg/dL 02/24/21 Range/Units 07:12 RBC (4.60-5.80) X10*6/uL Hgb (14.0-18.0) g/dl Hct (42-52) % BUN (9-16) mg/dL POC Glucose 142 H (60-115) mg/dL Random Glucose (60-115) mg/dL Short CBC 02/24/21 Range/Units 05:53 WBC 6.6 (4.8-10.8) X10*3/uL Hgb 10.1 L (14.0-18.0) g/dl Hct 30.8 L (42-52) % Plt Count 199 (160-400) X10*3/uL BMP 02/24/21 05:53 Sodium 135 Potassium 4.8 Chloride 102 Carbon Dioxide 24 BUN 20 H Creatinine 1.06 Calcium 8.9 All other labs normal. Assessment and Plan (1) Cellulitis of left lower limb: Status: Acute left below-knee amputation appears to be doing relatively well. Cellulitis appears to be resolving. He is afebrile and white count is 6.6. I did have an opportunity to review CT scan report and images. There is no evidence of abscess or collection. At the current time would recommend continued antibiotics. I believe he can be discharged within the next day or to as we determine the duration and type of p.o. antibiotics. Thank you for allowing me to assist in his care. If there are any questions or concerns please do not hesitate to contact us. Procedures Date of Service Date of Service: 02/24/21
[2021-02-24] MEDS: 0.9 % Sodium Chloride Flush 3 ML SYRINGE IVFLUSH ×3 (08:07→23:34)
[2021-02-24] MEDS: polyethylene glycoL 3350 17 GM POWD.PACK PO (08:52)
[2021-02-24] MEDS: Ferrous Sulfate 324 MG TABLET.DR PO (08:53)
[2021-02-24] MEDS: Gabapentin 600 MG TABLET PO (08:53)
[2021-02-24] MEDS: Cholecalciferol (Vitamin D3) 25 MCG TABLET PO (08:53)
[2021-02-24] MEDS: Aspirin Enteric Coated 81 MG TABLET.DR PO (08:53)
[2021-02-24] MEDS: Doxycycline Hyclate 100 MG in 0.9 % Sodium Chloride 250 ML 166.67 MG IV ×2 (08:53→21:12)
[2021-02-24] MEDS: Atorvastatin Calcium 40 MG TABLET PO (08:53)
[2021-02-24] MEDS: Enoxaparin Sodium 120 MG/0.8 ML SYRINGE 110 MG SUBCUT ×2 (08:53→20:00)
[2021-02-24] MEDS: Insulin Glargine,Hum.rec.anlog 100 UNIT/ML 10 ML VIAL 45 UNIT SUBCUT (08:56)
[2021-02-24] MEDS: Insulin Lispro 100 UNIT/ML 3 ML VIAL SUBCUT ×2 (11:39→21:13)
[2021-02-24] MEDS: oxyCODONE HCl Immed Release 5 MG TABLET PO ×2 (11:40→21:13)
[2021-02-24 11:51] LABS: Glucose, Whole Blood 172 mg/dL (60-115)
--- NOTE | 2021-02-24 11:55 | P.PNIM_ITS ---
Subjective Subjective Date of Service: 02/24/21 Interval History: the patient was seen and evaluated this morning pain at the wound site improving along with erythema as well Denies any fever, chills or shortness of breath No reported other overnight events. Systemic review: No fever, chills or weakness No chest pain, palpitation No shortness of breath or coughing No abdominal pain, nausea or vomiting No urinary symptoms Physical Exam Vital Signs: Vital Signs: Last Vital Signs Temp 96.9 F 02/24/21 11:24 Pulse 85 02/24/21 11:24 Resp 17 02/24/21 11:24 BP 105/58 L 02/24/21 11:24 Pulse Ox 98 02/24/21 11:24 Body Mass Index 32.1 Const: Other: Constitutional : Alert, oriented, not in distress Neck : Normal inspection, Supple Cardiovascular : RRR, S1 S2, no lower extremity edema Respiratory : Good bilateral air entry, no crackles, wheezes or rhonchi Gastrointestinal: soft, lax, Normal bowel sounds, Non tender Skin : Warm/Dry, stump area erythema improving and decreased tenderness Skeletal, Lt below-knee amputation Neurological : Alert & oriented x3, No focal deficit Objective Data Current Medications Generic Name Dose Route Start Last Admin Trade Name Freq PRN Reason Stop Dose Admin Acetaminophen 650 mg 02/22/21 19:23 02/22/21 20:49 Acetaminophen 325 Mg Tablet PO 650 mg Q6H PRN Administration Pain, Mild (Pain Scale 1-3) Aspirin 81 mg 02/23/21 09:00 02/24/21 08:53 Aspirin Enteric Coated 81 Mg Tablet. PO 81 mg DAILY TJ Administration Atorvastatin Calcium 40 mg 02/23/21 09:00 02/24/21 08:53 Atorvastatin Calcium 40 Mg Tablet PO 40 mg DAILY TJ Administration Docusate Sodium 100 mg 02/22/21 19:23 Docusate Sodium 100 Mg Capsule PO DAILY PRN Constipation Enoxaparin Sodium 110 mg 02/22/21 21:00 02/24/21 08:53 Enoxaparin Sodium 120 Mg/0.8 Ml Syringe SUBCUT 110 mg BID TJ Administration Ferrous Sulfate 324 mg 02/24/21 09:00 02/24/21 08:53 Ferrous Sulfate 324 Mg Tablet. PO 324 mg Q48H TJ Administration Gabapentin 600 mg 02/23/21 09:00 07/05/21 08:53 Gabapentin 600 Mg Tablet PO 600 mg DAILY TJ Administration Piperacillin Sod/Tazobactam 50 mls @ 100 mls/hr 02/22/21 20:00 02/24/21 08:41 Sod 3.375 gm/ Sodium Chloride IV Infused Q6H TJ Infusion Doxycycline Hyclate 100 mg/ 250 mls @ 166.67 mls/hr 02/22/21 21:00 02/24/21 10:39 Sodium Chloride IV Infused Q12H TJ Infusion Insulin Glargine 45 unit 02/23/21 09:00 02/24/21 08:56 Insulin Glargine,Hum.Rec.Anlog 100 Unit/Ml 10 Ml Vial SUBCUT 45 unit DAILY TJ Administration Insulin Glargine 30 unit 02/23/21 21:00 02/23/21 20:54 Insulin Glargine,Hum.Rec.Anlog 100 Unit/Ml 10 Ml Vial SUBCUT 30 unit BEDTIME TJ Administration Insulin Human Lispro 0 unit 02/22/21 21:00 02/24/21 11:39 Insulin Lispro 100 Unit/Ml 3 Ml Vial SUBCUT 2 [address] QIDACHS [facility] Administration Protocol Ondansetron HCl 4 mg 02/22/21 19:23 Ondansetron Hcl 4 Mg/2 Ml Vial IVPUSH Q8H PRN Nausea and Vomiting Oxycodone HCl 5 mg 02/23/21 10:06 02/24/21 11:40 Oxycodone Hcl Immed Release 5 Mg Tablet PO 5 mg Q6H PRN Administration Pain, Severe (Pain Scale 7-10) Polyethylene Glycol 17 gm 02/23/21 21:10 02/24/21 08:52 Polyethylene Glycol 3350 17 Gm Powd.Pack PO 17 gm DAILY TJ Administration Sodium Chloride 3 ml 02/23/21 00:00 02/24/21 08:07 0.9 % Sodium Chloride Flush 3 Ml Syringe IVFLUSH 3 ml QSHIFT [facility] Administration Vitamin D 25 mcg 02/23/21 09:00 02/24/21 08:53 Cholecalciferol (Vitamin D3) 25 Mcg Tablet PO 25 mcg DAILY TJ Administration Labs CBC & Chem 7: 02/24/21 05:53 02/24/21 05:53 Labs: Laboratory Results - last 24 hr 02/23/21 02/23/21 02/23/21 11:19 15:50 19:31 WBC RBC Hgb Hct MCV MCH MCHC RDW Plt Count MPV Absolute Nucleated RBC Nucleated RBC % (auto) Sodium Potassium Chloride Carbon Dioxide Anion Gap BUN Creatinine Estim Creat Clear Calc Estimated GFR POC Glucose 130 H 131 H 139 H Random Glucose Calcium 02/24/21 02/24/21 02/24/21 05:53 05:53 07:12 WBC 6.6 RBC 3.31 L Hgb 10.1 L Hct 30.8 L MCV 93.1 MCH 30.5 MCHC 32.8 RDW 12.8 Plt Count 199 MPV 11.1 Absolute Nucleated RBC 0.000 Nucleated RBC % (auto) 0.0 Sodium 135 Potassium 4.8 Chloride 102 Carbon Dioxide 24 Anion Gap 14 BUN 20 H Creatinine 1.06 Estim Creat Clear Calc 96.7 Estimated GFR > 60 POC Glucose 142 H Random Glucose 178 H D Calcium 8.9 02/24/21 11:21 WBC RBC Hgb Hct MCV MCH MCHC RDW Plt Count MPV Absolute Nucleated RBC Nucleated RBC % (auto) Sodium Potassium Chloride Carbon Dioxide Anion Gap BUN Creatinine Estim Creat Clear Calc Estimated GFR POC Glucose 172 H Random Glucose Calcium Microbiology Microbiology Results: Microbiology 02/22/21 12:23 Gram Stain - Final Leg - Left Routine Culture - Final Methicillin Res Staph Aureus 02/22/21 12:20 Blood Culture - Preliminary Blood - Venous No growth after 24 hours. 02/22/21 12:07 Blood Culture - Preliminary Blood - Venous No growth after 24 hours. Quality Stroke Does the patient have a stroke diagnosis?: No VTE Prior VTE?: Yes VTE Risk Level:: Medical - moderate - high VTE Device Contraindication: Treatment Not Indicated VTE Drug Contraindication: N/A - Med Ordered Assessment and Plan (1) S/P BKA (below knee amputation) bilateral: Status: Acute (2) Cellulitis: Status: Acute Assessment and Plan: This is a 61-year-old male with a history of diabetes, hypertension, dyslipidemia, bilateral BKA who presents to the emergency department with pain and swelling of left lower extremity amputation site cellulitis LLE BKA stump no evidence of sepsis IV doxycycline, Zosyn day 3 Wound culture growing Staph aureus, pending sensitivity Negative blood cultures vascular surgery input appreciated, continue antibiotics orally at time of discharge UTI On antibiotics negative urine culture Diabetes hold p.o. medications Continue Lantus, decrease the doses today SSI, POC, ADA diet Hyperlipidemia Continue statin Hypertension Blood pressure controlled continue lisinopril History of PE continue therapeutic Lovenox DVT prophylaxis Lovenox
[2021-02-24 16:22] LABS: Glucose, Whole Blood 142 mg/dL (60-115)
[2021-02-24 20:16] LABS: Glucose, Whole Blood 203 mg/dL (60-115)
[2021-02-24] MEDS: Insulin Glargine,Hum.rec.anlog 100 UNIT/ML 10 ML VIAL 30 UNIT SUBCUT (21:12)
[2021-02-25 00:23] VITALS: PULSE 69; RESP 18; O2SAT 99
[2021-02-25] MEDS: Piperacillin Sodium/Tazobactam 3.375 GM in 0.9 % Sodium Chloride 50 ML IV ×2 (01:46→07:55)
[2021-02-25 03:13] VITALS: BP 130/66; PULSE 69; RESP 18; TEMP 36.1; O2SAT 97
[2021-02-25 06:43] LABS: Anion Gap 14 (12-20); Blood Urea Nitrogen 17 mg/dL (9-16); Carbon Dioxide 25 mmol/L (22-29); Chloride 104 mmol/L (96-108); Creatinine Clr Calc Pharmacy 101.5; Estimated Glomerular Filt Rate > 60; Glucose Random 161 mg/dL (60-115); Potassium 5.1 mmol/L (3.3-5.1); Sodium 138 mmol/L (135-145)
[2021-02-25 07:18] VITALS: BP 115/64; PULSE 66; RESP 17; TEMP 36.2; O2SAT 99
[2021-02-25 07:27] LABS: Glucose, Whole Blood 120 mg/dL (60-115)
[2021-02-25] MEDS: polyethylene glycoL 3350 17 GM POWD.PACK PO (07:54)
[2021-02-25] MEDS: Cholecalciferol (Vitamin D3) 25 MCG TABLET PO (07:54)
[2021-02-25] MEDS: Gabapentin 600 MG TABLET PO (07:54)
[2021-02-25] MEDS: Enoxaparin Sodium 120 MG/0.8 ML SYRINGE 110 MG SUBCUT (07:54)
[2021-02-25] MEDS: Aspirin Enteric Coated 81 MG TABLET.DR PO (07:54)
[2021-02-25] MEDS: Atorvastatin Calcium 40 MG TABLET PO (07:54)
[2021-02-25] MEDS: 0.9 % Sodium Chloride Flush 3 ML SYRINGE IVFLUSH (07:56)
[2021-02-25] MEDS: Doxycycline Hyclate 100 MG in 0.9 % Sodium Chloride 250 ML 166.67 MG IV (09:29)
[2021-02-25] MEDS: Insulin Glargine,Hum.rec.anlog 100 UNIT/ML 10 ML VIAL 45 UNIT SUBCUT (09:34)
--- NOTE | 2021-02-25 09:47 | P.PNVS_ITS ---
Subjective Subjective Date of Service: 02/25/21 Patient reports: no new complaints and feels better Interval history: Patient seen examined. Has improved over the past weekend. Left stump looks much better than yesterday. In general good spirits. Eager to be discharged. Physical Exam Vital Signs: Vital Signs: Last Vital Signs Temp 97.1 F 02/25/21 07:18 Pulse 66 02/25/21 07:18 Resp 17 02/25/21 07:18 BP 115/64 02/25/21 07:18 Pulse Ox 99 02/25/21 07:18 Body Mass Index 32.1 Const: General: cooperative, healthy appearing and no acute distress Orientation/consciousness: oriented to person, oriented to place and oriented to time HENMT: Head: Yes normal to inspection Neck: Carotids: no bruits Chest: Chest palpation & inspection: normal inspection of the chest Resp: Effort & Inspection: normal respiratory effort and able to speak in complete sentences Auscultation: clear to auscultation bilaterally Cardio: Rate: regular rate Heart sounds: S1 normal heart sound present and S2 normal heart sound present GI: Inspection: Yes normal to inspection Skin: Wounds: amputation site ( Right side healed; left side cellulitis improved) Neuro: General: oriented to person, oriented to place, oriented to time and CN's II-XI intact bilaterally Extrem: General: Yes normal to inspection, Yes full ROM and Yes no clubbing, cyanosis or edema Psych: Appearance: grossly normal and well kempt Speech and movement: Normal speech and movement present Affect: normal affect Progress Note: A&P Assessment and plan (1) Cellulitis of left lower limb: Status: Acute Assessment and Plan: left stump cellulitis significantly improved. No fever no white count. Stable from my perspective for discharge. Follow up with me in approximately 2 weeks as outpatient. Would recommend 2 weeks of p.o. antibiotics. Thank you for allowing us to assist in his care. Fall Risk Details Current Medications: Current Medications Generic Name Dose Route Start Last Admin Trade Name Freq PRN Reason Stop Dose Admin Acetaminophen 650 mg 02/22/21 19:23 02/22/21 20:49 Acetaminophen 325 Mg Tablet PO 650 mg Q6H PRN Administration Pain, Mild (Pain Scale 1-3) Aspirin 81 mg 02/23/21 09:00 02/25/21 07:54 Aspirin Enteric Coated 81 Mg Tablet. PO 81 mg DAILY TJ Administration Atorvastatin Calcium 40 mg 02/23/21 09:00 02/25/21 07:54 Atorvastatin Calcium 40 Mg Tablet PO 40 mg DAILY TJ Administration Docusate Sodium 100 mg 02/22/21 19:23 Docusate Sodium 100 Mg Capsule PO DAILY PRN Constipation Enoxaparin Sodium 110 mg 02/22/21 21:00 02/25/21 07:54 Enoxaparin Sodium 120 Mg/0.8 Ml Syringe SUBCUT 110 mg BID TJ Administration Ferrous Sulfate 324 mg 02/24/21 09:00 02/24/21 08:53 Ferrous Sulfate 324 Mg Tablet. PO 324 mg Q48H TJ Administration Gabapentin 600 mg 02/23/21 09:00 02/25/21 07:54 Gabapentin 600 Mg Tablet PO 600 mg DAILY TJ Administration Piperacillin Sod/Tazobactam 50 mls @ 100 mls/hr 02/22/21 20:00 02/25/21 08:38 Sod 3.375 gm/ Sodium Chloride IV Infused Q6H TJ Infusion Doxycycline Hyclate 100 mg/ 250 mls @ 166.67 mls/hr 02/22/21 21:00 02/25/21 09:29 Sodium Chloride IV 166.67 mls/hr Q12H TJ Administration Insulin Glargine 45 unit 02/23/21 09:00 02/25/21 09:34 Insulin Glargine,Hum.Rec.Anlog 100 Unit/Ml 10 Ml Vial SUBCUT 45 unit DAILY TJ Administration Insulin Glargine 30 unit 02/23/21 21:00 02/24/21 21:12 Insulin Glargine,Hum.Rec.Anlog 100 Unit/Ml 10 Ml Vial SUBCUT 30 unit BEDTIME TJ Administration Insulin Human Lispro 0 unit 02/22/21 21:00 02/25/21 07:41 Insulin Lispro 100 Unit/Ml 3 Ml Vial SUBCUT Not Given QIDACHS [facility] Protocol Ondansetron HCl 4 mg 02/22/21 19:23 Ondansetron Hcl 4 Mg/2 Ml Vial IVPUSH Q8H PRN Nausea and Vomiting Oxycodone HCl 5 mg 02/23/21 10:06 02/24/21 21:13 Oxycodone Hcl Immed Release 5 Mg Tablet PO 5 mg Q6H PRN Administration Pain, Severe (Pain Scale 7-10) Polyethylene Glycol 17 gm 02/23/21 21:10 02/25/21 07:54 Polyethylene Glycol 3350 17 Gm Powd.Pack PO 17 gm DAILY TJ Administration Sodium Chloride 3 ml 02/23/21 00:00 02/25/21 07:56 0.9 % Sodium Chloride Flush 3 Ml Syringe IVFLUSH 3 ml QSHIFT TJ Administration Vitamin D 25 mcg 02/23/21 09:00 02/25/21 07:54 Cholecalciferol (Vitamin D3) 25 Mcg Tablet PO 25 mcg DAILY TJ Administration Time Spent With Patient Time: Total time spent is greater than 50% in coordination of care (as documented) at patient's floor/unit and/or counseling patient: Time with patient: 25 - 35 minutes Procedures Date of Service Date of Service: 02/25/21 Quality Stroke Does the patient have a stroke diagnosis?: No VTE Prior VTE?: Yes VTE Risk Level:: Medical - moderate - high VTE Device Contraindication: Treatment Not Indicated VTE Drug Contraindication: N/A - Med Ordered
--- NOTE | 2021-02-25 10:27 | P.DS_ITS ---
DS: Providers Provider Date of Service: 02/25/21 Date of admission: 02/22/21 16:35 Primary care physician: Unknown Physician Consults: 02/22/21 19:23 Consult to Vascular Surgery Routine Consulting Provider: Cameron Figueroa Reason for consultation: left stump infection Has provider been notified: No DS: Diagnosis Discharge Diagnosis (1) Cellulitis of left lower limb: Status: Acute (2) MRSA infection: Status: Acute DS: Medications Discharge Medications Home Medications: Home Medications Medication Instructions Recorded Confirmed Victoza 3-Chet 1.8 mg SUBCUT DAILY 07/17/20 02/22/21 aspirin 81 mg PO DAILY 07/17/20 02/22/21 gabapentin 600 mg PO DAILY 07/17/20 02/22/21 lisinopril 5 mg PO DAILY 07/17/20 02/22/21 metformin 1,000 mg PO BID 07/17/20 02/22/21 cholecalciferol (vitamin D3) 25 mcg PO DAILY 09/04/20 02/22/21 fluoxetine 20 mg capsule 20 mg PO DAILY 10/01/20 02/22/21 atorvastatin 40 mg PO DAILY 10/09/20 02/22/21 albuterol sulfate 90 mcg/actuation 2 puff INHALATION Q4-6H PRN 12/17/20 02/22/21 aerosol inhaler Tresiba FlexTouch U-100 50 unit SUBCUT QPM 12/23/20 02/22/21 Tresiba FlexTouch U-100 80 unit SUBCUT QAM 12/23/20 02/22/21 enoxaparin 110 mg SUBCUT BID 02/22/21 02/22/21 Previous Rx's Medication Instructions Recorded ferrous sulfate 324 mg PO Q48H #15 tab 01/07/21 polyethylene glycol 3350 17 g PO DAILY #30 ea 01/07/21 doxycycline monohydrate 100 mg PO BID #14 cap 02/25/21 DS: Summary Hospital Course Hospital Course: admission note HPI this is a 61-year-old male with multiple medical problems who underwent a left BKA in December of this year. His postoperative course was uncomplicated and his wound appear to be healing well until 2 days ago. For 2 days he has been having redness swelling and pain at his amputation site. He has noticed p urulent drainage from a small opening in the incision area. He has had associated nausea and chills. He denies any abdominal pain. In the emergency department he was afebrile. Basic labs were were drawn and relatively unremarkable. There is no evidence of sepsis. CT scan of the left knee was obtained and showed no evidence of abscess or fluid collection. Urinalysis was also obtained which showed possibility of UTI. He was started on IV antibiotics and the decision was made to admit him for further management. Hospital course The patient was admitted for treatment of stomach area cellulitis. Started on doxycycline and Zosyn with good response over the course of hospital stay as the erythema and pain significantly decreased. Evaluated by Dr. Figueroa from vascular surgery who recommended no intervention needed as a CT scan syndrome was negative for any collection. Wound culture grew MRSA sensitive doxycycline. Patient will be discharged on doxycycline to finish total of 10 days of antibiotics. Time Spent with Patient Time attestation: Total time spent providing and/or coordinating discharge services: Discharge coordination time: Greater than 30 minutes Quality: Stroke Does the patient have a stroke diagnosis?: No Physical Exam Vital Signs: Vital Signs: Last Vital Signs Temp 97.1 F 02/25/21 07:18 Pulse 66 02/25/21 07:18 Resp 17 02/25/21 07:18 BP 115/64 02/25/21 07:18 Pulse Ox 99 02/25/21 07:18 Body Mass Index 32.1 Const: Other: Constitutional : Alert, oriented, not in distress Neck : Normal inspection, Supple Cardiovascular : RRR, S1 S2, no lower extremity edema Respiratory : Good bilateral air entry, no crackles, wheezes or rhonchi Gastrointestinal: soft, lax, Normal bowel sounds, Non tender Skin : Warm/Dry, stump area erythema improving and decreased tenderness Skeletal, Lt below-knee amputation Neurological : Alert & oriented x3, No focal deficit DS: Data Data Completed and Pending Completed studies during hospitalization [Text1]: Procedures Assistance with Respiratory Ventilation, Less than 24 Consecutive Hours, Continuous Positive Airway Pressure (10/10/20) Detachment at Left 1st Toe, Complete, Open Approach (12/23/20) Detachment at Left Lower Leg, Mid, Open Approach (12/23/20) Detachment at Right 1st Toe, Complete, Open Approach (09/05/20) Detachment at Right 1st Toe, High, Open Approach (09/05/20) Detachment at Right Foot, Partial 1st Ray, Open Approach (10/10/20) Detachment at Right Foot, Partial 2nd Ray, Open Approach (10/10/20) Detachment at Right Foot, Partial 3rd Ray, Open Approach (10/10/20) Detachment at Right Foot, Partial 4th Ray, Open Approach (10/10/20) Detachment at Right Foot, Partial 5th Ray, Open Approach (10/10/20) Detachment at Right Lower Leg, Mid, Open Approach (10/10/20) Dilation of Right Posterior Tibial Artery, Percutaneous Approach (09/05/20) Fluoroscopy of Aorta and Bilateral Lower Extremity Arteries (12/23/20) Insertion of Infusion Device into Superior Vena Cava, Percutaneous Approach (09/05/20) Transfusion of Nonautologous Platelets into Peripheral Vein, Percutaneous Approach (09/05/20) Transfusion of Nonautologous Red Blood Cells into Peripheral Vein, Percutaneous Approach (12/23/20) Ultrasonography of Superior Vena Cava, Guidance (09/05/20) Labs on day of discharge: Laboratory Results - last 24 hr 02/24/21 02/24/21 02/24/21 11:21 16:19 20:12 Sodium Potassium Chloride Carbon Dioxide Anion Gap BUN Creatinine Estim Creat Clear Calc Estimated GFR POC Glucose 172 H 142 H 203 H Random Glucose Calcium 02/25/21 02/25/21 06:00 07:21 Sodium 138 Potassium 5.1 Chloride 104 Carbon Dioxide 25 Anion Gap 14 BUN 17 H Creatinine 1.01 Estim Creat Clear Calc 101.5 Estimated GFR > 60 POC Glucose 120 H Random Glucose 161 H Calcium 9.0 Preliminary micro results at discharge 02/22/21 12:20 Blood Culture - Preliminary Blood - Venous No growth after 48 hours. 02/22/21 12:07 Blood Culture - Preliminary Blood - Venous No growth after 48 hours. Discharge Plan Discharge Patient Disposition: Home Health Service Discharge Diagnosis: Cellulitis Referrals: Adolfo BYERS [Outside] - 1 Week Physician,Unknown [Primary Care Provider] - 1 Week Discharge Medications: New doxycycline monohydrate 100 mg capsule 100 mg PO BID Qty: 14 RF: 0 Continued atorvastatin 40 mg tablet 40 mg PO DAILY RF: 0 enoxaparin 120 mg/0.8 mL syringe 110 mg subcut BID RF: 0 gabapentin 600 mg tablet 600 mg PO DAILY RF: 0 aspirin 81 mg tablet,delayed release (DR/EC) 81 mg PO DAILY RF: 0 metformin 1,000 mg tablet 1,000 mg PO BID RF: 0 lisinopril 5 mg tablet 5 mg PO DAILY RF: 0 Victoza 3-Chet 0.6 mg/0.1 mL (18 mg/3 mL) pen injector 1.8 mg subcut DAILY RF: 0 cholecalciferol (vitamin D3) 25 mcg (1,000 unit) tablet 25 mcg PO DAILY RF: 0 Tresiba FlexTouch U-100 100 unit/mL (3 mL) insulin pen 50 unit subcut QPM RF: 0 Tresiba FlexTouch U-100 100 unit/mL (3 mL) insulin pen 80 unit subcut QAM RF: 0 ferrous sulfate 324 mg (65 mg iron) Tablet,Delayed Release (Dr/Ec) 324 mg PO Q48H Qty: 15 RF: 0 polyethylene glycol 3350 17 gram Powder In Packet 17 g PO DAILY Qty: 30 RF: 0 Discharge Orders: Discharge Order (Routine); Ordered 02/25/21 Ordered By: Cristhian Gatica Diet: advance to usual diet Activity on Discharge: As tolerated Stand Alone Forms: Patient Portal Discharge page Care Plan Goals: Read below Health Concerns: Read below Plan of Treatment: You were admitted to the hospital for evaluation of stump cellulitis. Treated with IV antibiotics with good response. Evaluated by vascular surgery with recommendations for medical treatment only. Culture from the wound grew MRSA bacteria sensitive to doxycycline. Assessment: Continue doxycycline for 1 more week To follow-up with Dr. Figueroa if needed
== END 2021-02-25 12:23 | disposition home health service (06) | DRG 565 ==
LOC: HO.ED 16:58 → HO.EDOVER 17:04 → HO.S3 17:05
PROVIDERS: Admitting Provider Physician Assistant Medical; Emergency Provider Emergency Medicine Emergency Medical Services; PCP Internal Medicine; Visit Provider Student in an Organized Health Care Education/Training Program
DX: T87.44 Infection of amputation stump, left lower extremity (principal); L03.116 Cellulitis of left lower limb; N39.0 Urinary tract infection, site not specified; E78.5 Hyperlipidemia, unspecified; G47.30 Sleep apnea, unspecified; B95.62 Methicillin resistant Staphylococcus aureus infection as the cause of diseases classified elsewhere; E11.42 Type 2 diabetes mellitus with diabetic polyneuropathy; I10 Essential (primary) hypertension; Z86.711 Personal history of pulmonary embolism; Z20.822 Contact with and (suspected) exposure to COVID-19; Z89.512 Acquired absence of left leg below knee; Z89.511 Acquired absence of right leg below knee; Z87.891 Personal history of nicotine dependence; Z79.4 Long term (current) use of insulin; Z79.82 Long term (current) use of aspirin; Z79.899 Other long term (current) drug therapy
CPT/HCPCS: 36415; 71045; 73701; 76705; 80048; 80076; 82947; 83605; 85025; 85027; 85610; 85730; 87040; 87071; 87077; 87086; 87186; 87205; 87635; 94660; 97162; 99285; J1650; J1885; J2543; Q9967

== ENCOUNTER 2021-03-07 17:25 | Inpatient (IN) | payer OTHER, SELFPAY ==
--- NOTE | ~2021-03-07 | CT_ITS ---
EXAMINATION: CT CHEST WITHOUT CONTRAST CLINICAL INFORMATION: Rib pain after a fall COMPARISON: Chest x-ray February 22, 2021 TECHNIQUE: Multidetector volumetric CT imaging of the chest was done. Axial MIP volume rendering provided. Sagittal and coronal reformatted images were obtained. This CT examination was performed using dose optimization techniques as appropriate, variously including the following: *Automated exposure control *Adjustment of mA and/or kV according to patient size (this includes techniques or standardized protocols for targeted exams where dose is matched to indication/reason for exam; i.e. extremities or head) *Use of iterative reconstruction technique DLP: 412 mGy-cm FINDINGS: LUNGS: There is a linear scar in the right lower lobe with associated mild bronchiectasis. No acute airspace disease. Lungs are otherwise normally aerated. The central bronchial airways are open. MEDIASTINUM: No mediastinal mass or significant lymphadenopathy. The heart size is normal. There is no pericardial effusion. There is heavy vascular calcifications of the coronary arteries. Small volume of cast calcifications of thoracic aorta. No aneurysm of the aorta. The thyroid is unremarkable. PLEURA: There is no pleural effusion. No pleural mass or thickening. There is no pneumothorax. AXILLA: No lymphadenopathy. UPPER ABDOMEN: Visualized portions of liver, spleen, pancreas and the kidneys are unremarkable. The adrenal glands are normal. Status post cholecystectomy. OSSEOUS STRUCTURES: No rib fracture. No acute osseous abnormality. There is degenerative spondylosis of the spine. CT/CT chest wo con IMPRESSION: There is no acute abnormality of the chest. There is no rib fracture.
--- NOTE | ~2021-03-07 | XR_ITS ---
EXAMINATION: XR KNEE, LEFT CLINICAL INFORMATION: Cellulitis of BKA site COMPARISON: CT scan of the left lower leg 02/22/2021 TECHNIQUE: 2 views of the left knee. FINDINGS: Postoperative changes related to below-knee amputation. Single skin staple noted distal to the tibia. The distal edges of the bone remain sharp without any erosion. Possible soft tissue swelling. Arterial calcification noted. Patellofemoral arthrosis. XR/XR knee LT 2V IMPRESSION: Possible soft tissue swelling in the remaining left lower leg. No x-ray evidence for osteomyelitis.
--- NOTE | 2021-03-07 17:30 | ECG_ITS ---
Test Reason : CHEST PAIN Blood Pressure : / mmHG Vent. Rate : 099 BPM Atrial Rate : 099 BPM P-R Int : 178 ms QRS Dur : 070 ms QT Int : 340 ms P-R-T Axes : 100 -03 037 degrees QTc Int : 436 ms Normal sinus rhythm Normal ECG When compared with ECG of 31-OCT-2020 13:15, No significant change was found Referred By: Bethany Gunn Electronically Signed By:Lewis Maloney
--- NOTE | 2021-03-07 17:30 | ED.MALEGU ---
HPI - Male Genitourinary General Chief complaint: General Medical Stated complaint: urinary retention Time Seen by Provider: 03/07/21 21:23 Source: patient and EMS Mode of arrival: EMS Limitations: no limitations History of Present Illness HPI Narrative: 61-year-old male with past medical history of bilateral lower extremity amputations, hypertension, hyperlipidemia, insulin-dependent diabetes peripheral neuropathy, peripheral vascular disease, bipolar disorder, KASSANDRA, recent UTI presents via EMS for urinary retention and multiple other complaints. Patient does not report chest pain or pressure, palpitations, shortness of breath, fevers, chills, nausea, vomiting, diarrhea, abdominal pain, abdominal distention. Related Data Home Medications Medication Instructions Recorded Confirmed Victoza 3-Chet 1.8 mg SUBCUT DAILY 07/17/20 03/07/21 aspirin 81 mg PO DAILY 07/17/20 03/07/21 gabapentin 600 mg PO BID 07/17/20 03/07/21 lisinopril 5 mg PO DAILY 07/17/20 03/07/21 metformin 1,000 mg PO BID 07/17/20 03/07/21 cholecalciferol (vitamin D3) 25 mcg PO DAILY 09/04/20 03/07/21 fluoxetine 20 mg capsule 20 mg PO DAILY 10/01/20 03/07/21 atorvastatin 40 mg PO DAILY 10/09/20 03/07/21 albuterol sulfate 90 mcg/actuation 2 puff INHALATION Q4-6H PRN 12/17/20 03/07/21 aerosol inhaler Tresiba FlexTouch U-100 50 unit SUBCUT QPM 12/23/20 02/22/21 Tresiba FlexTouch U-100 80 unit SUBCUT QAM 12/23/20 02/22/21 enoxaparin 110 mg SUBCUT BID 02/22/21 03/07/21 magnesium oxide 400 mg PO BID 03/07/21 03/07/21 Previous Rx's Medication Instructions Recorded polyethylene glycol 3350 17 g PO DAILY #30 ea 01/07/21 doxycycline monohydrate 100 mg PO BID #14 cap 02/25/21 Allergies Allergy/AdvReac Type Severity Reaction Status Date / Time vancomycin AdvReac Severe thrombocyto Verified 01/30/21 15:42 penia Review of Systems Review of Systems: Constitutional: No Fever, No Chills ENT/Mouth: No Ear Pain, No Hoarseness, No sore throat Eyes: No Eye Pain, No Swelling, No Redness, No Foreign Body Cardiovascular: Right chest wall Pain, No SOB Respiratory: No Cough, No Dyspnea Gastrointestinal: No Nausea, No Vomiting, No Diarrhea, No abdominal Pain Genitourinary: Positive Dysuria, positive urinary retention, No Hematuria Musculoskeletal: positive right-sided chest pain, No Myalgias, No Joint Swelling Skin: No Skin lacerations, No rash Neuro: No Weakness, No Numbness, No Paresthesias, No Loss of Consciousness, No Dizziness, No Headache Psych: No Anxiety/Panic, No Depression Heme/Lymph: no easy bruising, no Lymphadenopathy Endocrine: No Polyuria, No Polydipsia Yes all other systems are reviewed and are negative PMFSH Past Medical History Attestation statement: The following information was validated with the patient. Source: old records reviewed Medical History Amputated great toe of right foot Back pain Diabetic foot infection Drug-induced thrombocytopenia Hyperlipidemia Hypertension IDDM (insulin dependent diabetes mellitus) MGUS (monoclonal gammopathy of unknown significance) Neck pain Peripheral neuropathy Psychiatric diagnosis PVD (peripheral vascular disease) Sleep apnea Surgical History H/O colonoscopy Hx of angioplasty Hx of appendectomy Hx of foot surgery Hx of tonsillectomy Hx of umbilical hernia repair S/P BKA (below knee amputation) bilateral Status post below-knee amputation Family History Family History Other No history of heart disease Social History Social History Household Members: None Housing: Apartment Do you presently have visiting nurse or other home services: Yes Alcohol intake: never Patient Tobacco Use Status: Former Tobacco user Second Hand Smoke Exposure: No Advance Directives: Yes Advance Directives on File: Yes Advance Directives Date on File: 09/27/20 service: Yes Current occupational status: unemployed Physical Exam Vital Signs: Vital Signs: Last Vital Signs Temp 98.4 F 03/07/21 22:40 Pulse 83 03/07/21 22:40 Resp 14 03/07/21 22:40 BP 101/56 L 03/07/21 22:40 Pulse Ox 97 03/07/21 22:40 Body Mass Index 48.8 Appearance: Alert. Oriented X3. No acute distress. Eyes: Pupils equal, round and reactive to light. ENT: Pharynx normal. Moist mucous membranes. Neck: Normal inspection. Neck supple. CVS: Normal heart rate and rhythm. Pulses normal. Respiratory: No respiratory distress. Breath sounds normal. Abdomen: Soft and nontender. Bladder nonpalpable. Skin: Skin warm and dry. Normal skin color. Normal skin turgor. Extremities: Bilateral lower extremity [id number] amputations, left surgical site has cellulitis and 3 visible sutures. Neuro: No motor deficit. No sensory deficit. Cranial nerves 2-12 intact. Course Course Course Narrative: 61-year-old male presents via EMS for urinary retention. Also mentions multiple other complaints, states that his left [id number] amputation is red, tender, and has 3 remaining sutures. He also reports right-sided rib pain from a fall approximately a week ago that he was not evaluated for. States that he has been in and out of hospitals since his amputation in December, was at a half-way facility and discharged home. Lab values indicate an elevated white count at 11.7, he has been treated for UTI recently, will start ceftriaxone and L of fluid. I will gently resuscitate fluids. Patient is afebrile, normotensive, with an elevated heart rate at 96. Glucose is 128, lactic 2.0. Patient is in a KI with BUN at 40, his normal is around 20, creatinine 1.74, his normal is 1.0. Discussion with hospitalist regarding plan to admit for CIRILO, cellulitis of the lower extremity. Patient is not septic. CPAP ordered, CRP is elevated at 6.33. Will continue with fluid resuscitation per hospitalist order. MDM - Male Genitourinary Differential Diagnosis Differential diagnosis: Likely urinary tract infection and acute retention of urine Medical Records Attestation: I reviewed the patient's medical records. Lab Data Attestation: I reviewed the patient's lab results. Result diagrams: 03/07/21 18:12 03/07/21 18:12 Labs: Lab Results 03/07/21 03/07/21 03/07/21 Range/Units 18:12 18:12 18:12 WBC 11.7 H (4.8-10.8) X10*3/uL RBC 3.43 L (4.60-5.80) X10*6/uL Hgb 10.9 L (14.0-18.0) g/dl Hct 31.3 L (42-52) % MCV 91.3 (80-98) fL MCH 31.8 (27.0-33.0) pg MCHC 34.8 (31.0-36.0) g/dl RDW 13.3 (11.0-16.0) % Plt Count 331 D (160-400) X10*3/uL MPV 10.5 (9.4-12.4) fL Immature Gran % (Auto) 0.8 H (0.0-0.4) % Neut % (Auto) 62.1 (45-73) % Lymph % (Auto) 24.6 (20-40) % [place] % (Auto) 10.7 (2-11) % Eos % (Auto) 1.4 (0-4) % Baso % (Auto) 0.4 (0-2) % Lymph # (Auto) 2.9 (1.2-4.9) X10*3/uL [place] # (Auto) 1.3 H (0.1-1.2) X10*3/uL Eos # (Auto) 0.2 (0.0-0.4) X10*3/uL Baso # (Auto) 0.1 (0.0-0.2) X10*3/uL Abs Immat Gran (auto) 0.09 H (0.00-0.03) X10*3/uL Absolute Neuts (auto) 7.3 (2.0-8.3) X10*3/uL Absolute Nucleated RBC 0.000 (0.0-0.012) X10*3/uL Nucleated RBC % (auto) 0.0 (0.0-0.2) /100WBC ESR (0-15) MM/HR APTT 48.3 H (24.1-38.0) SEC Sodium 136 (135-145) mmol/L Potassium 4.6 (3.3-5.1) mmol/L Chloride 102 (96-108) mmol/L Carbon Dioxide 21 L (22-29) mmol/L Anion Gap 18 (12-20) BUN 40 H D (9-16) mg/dL Creatinine 1.74 H (0.5-1.4) mg/dL Estim Creat Clear Calc 46.9 Estimated GFR 40 POC Glucose (60-115) mg/dL Random Glucose 128 H (60-115) mg/dL Lactic Acid (0.5-2.0) mmol/L Calcium 9.2 (8.4-10.2) mg/dL Magnesium (1.6-2.6) mg/dL Total Bilirubin 0.6 (0.0-1.0) mg/dL Direct Bilirubin 0.2 (0.0-0.5) mg/dL AST 17 (5-37) U/L ALT 12 (0-40) U/L Alkaline Phosphatase 78 (39-117) U/L Troponin I High Sens (<3.5-35.0) ng/L C-Reactive Protein 6.33 H (< or = 0.50) mg/dL Total Protein 7.2 (6.5-8.0) g/dL Albumin 3.7 (3.5-5.0) g/dL Lipase 24 (8-78) U/L Urine Color Urine Appearance Urine pH (5.0-8.0) Ur Specific [place] (1.005-1.025) Urine Protein (NEG-TRACE) MG/DL Urine Glucose (UA) (NEG) MG/DL Urine Ketones (NEG) MG/DL Urine Blood (NEG) Urine Nitrite (NEG) Ur Leukocyte Esterase (NEG) COVID-19 (JOSE) (Negative) COVID-19 Clin Com 03/07/21 03/07/21 03/07/21 Range/Units 18:12 18:12 18:12 WBC (4.8-10.8) X10*3/uL RBC (4.60-5.80) X10*6/uL Hgb (14.0-18.0) g/dl Hct (42-52) % MCV (80-98) fL MCH (27.0-33.0) pg MCHC (31.0-36.0) g/dl RDW (11.0-16.0) % Plt Count (160-400) X10*3/uL MPV (9.4-12.4) fL Immature Gran % (Auto) (0.0-0.4) % Neut % (Auto) (45-73) % Lymph % (Auto) (20-40) % [place] % (Auto) (2-11) % Eos % (Auto) (0-4) % Baso % (Auto) (0-2) % Lymph # (Auto) (1.2-4.9) X10*3/uL [place] # (Auto) (0.1-1.2) X10*3/uL Eos # (Auto) (0.0-0.4) X10*3/uL Baso # (Auto) (0.0-0.2) X10*3/uL Abs Immat Gran (auto) (0.00-0.03) X10*3/uL Absolute Neuts (auto) (2.0-8.3) X10*3/uL Absolute Nucleated RBC (0.0-0.012) X10*3/uL Nucleated RBC % (auto) (0.0-0.2) /100WBC ESR (0-15) MM/HR APTT (24.1-38.0) SEC Sodium (135-145) mmol/L Potassium (3.3-5.1) mmol/L Chloride (96-108) mmol/L Carbon Dioxide (22-29) mmol/L Anion Gap (12-20) BUN (9-16) mg/dL Creatinine (0.5-1.4) mg/dL Estim Creat Clear Calc Estimated GFR POC Glucose (60-115) mg/dL Random Glucose (60-115) mg/dL Lactic Acid 2.0 (0.5-2.0) mmol/L Calcium (8.4-10.2) mg/dL Magnesium 1.6 (1.6-2.6) mg/dL Total Bilirubin (0.0-1.0) mg/dL Direct Bilirubin (0.0-0.5) mg/dL AST (5-37) U/L ALT (0-40) U/L Alkaline Phosphatase (39-117) U/L Troponin I High Sens 5.3 (<3.5-35.0) ng/L C-Reactive Protein (< or = 0.50) mg/dL Total Protein (6.5-8.0) g/dL Albumin (3.5-5.0) g/dL Lipase (8-78) U/L Urine Color Urine Appearance Urine pH (5.0-8.0) Ur Specific [place] (1.005-1.025) Urine Protein (NEG-TRACE) MG/DL Urine Glucose (UA) (NEG) MG/DL Urine Ketones (NEG) MG/DL Urine Blood (NEG) Urine Nitrite (NEG) Ur Leukocyte Esterase (NEG) COVID-19 (JOSE) (Negative) COVID-19 Clin Com 03/07/21 03/07/21 03/07/21 Range/Units 18:12 18:14 19:58 WBC (4.8-10.8) X10*3/uL RBC (4.60-5.80) X10*6/uL Hgb (14.0-18.0) g/dl Hct (42-52) % MCV (80-98) fL MCH (27.0-33.0) pg MCHC (31.0-36.0) g/dl RDW (11.0-16.0) % Plt Count (160-400) X10*3/uL MPV (9.4-12.4) fL Immature Gran % (Auto) (0.0-0.4) % Neut % (Auto) (45-73) % Lymph % (Auto) (20-40) % [place] % (Auto) (2-11) % Eos % (Auto) (0-4) % Baso % (Auto) (0-2) % Lymph # (Auto) (1.2-4.9) X10*3/uL [place] # (Auto) (0.1-1.2) X10*3/uL Eos # (Auto) (0.0-0.4) X10*3/uL Baso # (Auto) (0.0-0.2) X10*3/uL Abs Immat Gran (auto) (0.00-0.03) X10*3/uL Absolute Neuts (auto) (2.0-8.3) X10*3/uL Absolute Nucleated RBC (0.0-0.012) X10*3/uL Nucleated RBC % (auto) (0.0-0.2) /100WBC ESR 95 H (0-15) MM/HR APTT (24.1-38.0) SEC Sodium (135-145) mmol/L Potassium (3.3-5.1) mmol/L Chloride (96-108) mmol/L Carbon Dioxide (22-29) mmol/L Anion Gap (12-20) BUN (9-16) mg/dL Creatinine (0.5-1.4) mg/dL Estim Creat Clear Calc Estimated GFR POC Glucose 128 H (60-115) mg/dL Random Glucose (60-115) mg/dL Lactic Acid (0.5-2.0) mmol/L Calcium (8.4-10.2) mg/dL Magnesium (1.6-2.6) mg/dL Total Bilirubin (0.0-1.0) mg/dL Direct Bilirubin (0.0-0.5) mg/dL AST (5-37) U/L ALT (0-40) U/L Alkaline Phosphatase (39-117) U/L Troponin I High Sens (<3.5-35.0) ng/L C-Reactive Protein (< or = 0.50) mg/dL Total Protein (6.5-8.0) g/dL Albumin (3.5-5.0) g/dL Lipase (8-78) U/L Urine Color DARK YELLOW Urine Appearance CLEAR Urine pH 6.0 (5.0-8.0) Ur Specific [place] >= 1.030 H (1.005-1.025) Urine Protein NEG (NEG-TRACE) MG/DL Urine Glucose (UA) NEG (NEG) MG/DL Urine Ketones NEG (NEG) MG/DL Urine Blood NEG (NEG) Urine Nitrite NEG (NEG) Ur Leukocyte Esterase NEG (NEG) COVID-19 (JOSE) (Negative) COVID-19 Clin Com 03/07/21 03/07/21 Range/Units 20:45 23:05 WBC (4.8-10.8) X10*3/uL RBC (4.60-5.80) X10*6/uL Hgb (14.0-18.0) g/dl Hct (42-52) % MCV (80-98) fL MCH (27.0-33.0) pg MCHC (31.0-36.0) g/dl RDW (11.0-16.0) % Plt Count (160-400) X10*3/uL MPV (9.4-12.4) fL Immature Gran % (Auto) (0.0-0.4) % Neut % (Auto) (45-73) % Lymph % (Auto) (20-40) % [place] % (Auto) (2-11) % Eos % (Auto) (0-4) % Baso % (Auto) (0-2) % Lymph # (Auto) (1.2-4.9) X10*3/uL [place] # (Auto) (0.1-1.2) X10*3/uL Eos # (Auto) (0.0-0.4) X10*3/uL Baso # (Auto) (0.0-0.2) X10*3/uL Abs Immat Gran (auto) (0.00-0.03) X10*3/uL Absolute Neuts (auto) (2.0-8.3) X10*3/uL Absolute Nucleated RBC (0.0-0.012) X10*3/uL Nucleated RBC % (auto) (0.0-0.2) /100WBC ESR (0-15) MM/HR APTT (24.1-38.0) SEC Sodium (135-145) mmol/L Potassium (3.3-5.1) mmol/L Chloride (96-108) mmol/L Carbon Dioxide (22-29) mmol/L Anion Gap (12-20) BUN (9-16) mg/dL Creatinine (0.5-1.4) mg/dL Estim Creat Clear Calc Estimated GFR POC Glucose 104 (60-115) mg/dL Random Glucose (60-115) mg/dL Lactic Acid (0.5-2.0) mmol/L Calcium (8.4-10.2) mg/dL Magnesium (1.6-2.6) mg/dL Total Bilirubin (0.0-1.0) mg/dL Direct Bilirubin (0.0-0.5) mg/dL AST (5-37) U/L ALT (0-40) U/L Alkaline Phosphatase (39-117) U/L Troponin I High Sens (<3.5-35.0) ng/L C-Reactive Protein (< or = 0.50) mg/dL Total Protein (6.5-8.0) g/dL Albumin (3.5-5.0) g/dL Lipase (8-78) U/L Urine Color Urine Appearance Urine pH (5.0-8.0) Ur Specific [place] (1.005-1.025) Urine Protein (NEG-TRACE) MG/DL Urine Glucose (UA) (NEG) MG/DL Urine Ketones (NEG) MG/DL Urine Blood (NEG) Urine Nitrite (NEG) Ur Leukocyte Esterase (NEG) COVID-19 (JOSE) Negative (Negative) COVID-19 Clin Com See Note Imaging Data Knee x-ray, chest x-ray: Attestation: I personally reviewed and interpreted this imaging study as follows: Radiologist's impression: EXAMINATION: XR KNEE, LEFT CLINICAL INFORMATION: Cellulitis of BKA site COMPARISON: CT scan of the left lower leg 02/22/2021 TECHNIQUE: 2 views of the left knee. FINDINGS: Postoperative changes related to below-knee amputation. Single skin staple noted distal to the tibia. The distal edges of the bone remain sharp without any erosion. Possible soft tissue swelling. Arterial calcification noted. Patellofemoral arthrosis. ECG Data Attestation: I personally reviewed and interpreted this ECG as follows: ECG interpretation date: 03/07/21 ECG interpretation time: 18:04 Prior ECG tracings: available for review Interpretation: Vent. rate 99 BPM IA interval 178 ms QRS duration 70 ms QT/QTc 340/436 ms P-R-T axes 100 -3 37 Normal sinus rhythm Normal ECG When compared with ECG of 31-OCT-2020 13:15, No significant change was found Critical Care Time Critical Care Time Critical Care Time: Yes Total Critical Care Time: 45 Attestation: I have personally provided critical care time exclusive of time spent on separately billable procedures. Time includes review of laboratory data, radiology results, discussion with consultants, and monitoring for potential decompensation. Interventions were performed as documented. Discharge Plan Discharge Clinical Impression: CIRILO (acute kidney injury) Cellulitis Qualifiers: Site of cellulitis: extremity Site of cellulitis of extremity: lower extremity Laterality: left Qualified Code(s): L03.116 - Cellulitis of left lower limb Patient Disposition: Admitted As Inpatient
[2021-03-07 17:56] VITALS: BP 111/63; PULSE 96; RESP 16; O2SAT 99; BMI 48.8
[2021-03-07 18:14] VITALS: PULSE 96; RESP 16; O2SAT 99
[2021-03-07 18:23] LABS: MANUAL DIFF FLAG NO
[2021-03-07 18:24] LABS: Glucose, Whole Blood 128 mg/dL (60-115)
--- NOTE | 2021-03-07 18:27 | PC.NURSE ---
Patient reports to this RN that he peed 4 hrs ago. Bladder scan revealing 139ml . Per Guerrero not necessary at this time.
[2021-03-07 18:32] LABS: Basophils Absolute Auto 0.1 X10*3/uL (0.0-0.2); Basophils Percent Auto 0.4 % (0-2); Eosinophils Absolute Auto 0.2 X10*3/uL (0.0-0.4); Eosinophils Percent Auto 1.4 % (0-4); Hematocrit 31.3 % (42-52); Hemoglobin 10.9 g/dl (14.0-18.0); Imm Gran Abs Auto 0.09 X10*3/uL (0.00-0.03); Imm Gran Pct Auto 0.8 % (0.0-0.4); Lymphocytes Absolute Auto 2.9 X10*3/uL (1.2-4.9); Lymphocytes Percent Auto 24.6 % (20-40); Mean Corpuscular HGB Conc 34.8 g/dl (31.0-36.0); Mean Corpuscular Hemoglobin 31.8 pg (27.0-33.0); Mean Corpuscular Volume 91.3 fL (80-98); Mean Platelet Volume 10.5 fL (9.4-12.4); Monocytes Absolute Auto 1.3 X10*3/uL (0.1-1.2); Monocytes Percent Auto 10.7 % (2-11); Neutrophils Absolute Auto 7.3 X10*3/uL (2.0-8.3); Neutrophils Percent Auto 62.1 % (45-73); Platelet Count 331 X10*3/uL (160-400); Red Blood Count 3.43 X10*6/uL (4.60-5.80); Red Cell Distribution Width 13.3 % (11.0-16.0); White Blood Count 11.7 X10*3/uL (4.8-10.8)
[2021-03-07 18:34] LABS: Partial Thromboplastin Time 48.3 SEC (24.1-38.0)
[2021-03-07 18:55] LABS: Magnesium 1.6 mg/dL (1.6-2.6)
[2021-03-07 18:56] LABS: Alanine Aminotransferase 12 U/L (0-40); Albumin Level 3.7 g/dL (3.5-5.0); Alkaline Phosphatase 78 U/L (39-117); Anion Gap 18 (12-20); Aspartate Amino Transferase 17 U/L (5-37); Bilirubin Direct 0.2 mg/dL (0.0-0.5); Bilirubin Total 0.6 mg/dL (0.0-1.0); Blood Urea Nitrogen 40 mg/dL (9-16); Calcium 9.2 mg/dL (8.4-10.2); Carbon Dioxide 21 mmol/L (22-29); Chloride 102 mmol/L (96-108); Creatinine Clr Calc Pharmacy 46.9; Estimated Glomerular Filt Rate 40; Glucose Random 128 mg/dL (60-115); Lipase 24 U/L (8-78); Potassium 4.6 mmol/L (3.3-5.1); Sodium 136 mmol/L (135-145); Total Protein 7.2 g/dL (6.5-8.0)
[2021-03-07 18:58] LABS: Troponin-I High Sensitivity 5.3 ng/L (<3.5-35.0)
[2021-03-07 19:38] VITALS: BP 93/55; PULSE 95; RESP 14; TEMP 36.9; O2SAT 98
[2021-03-07] MEDS: 0.9 % Sodium Chloride 1,000 ML 999 ML IVCONT (19:44)
[2021-03-07] MEDS: cefTRIAXone sodium 1 GM in 0.9 % Sodium Chloride 50 ML IV (19:45)
[2021-03-07 20:04] LABS: Glucose Urine UA NEG (NEG); Leukocyte Esterase Urine NEG (NEG); Nitrite Urine NEG (NEG); Specific Gravity - Urine >= 1.030 (1.005-1.025); Urine Blood NEG (NEG); Urine Ketones NEG (NEG); Urine Protein NEG (NEG-TRACE)
[2021-03-07 20:05] LABS: Appearance Urine CLEAR; Color Urine DARK YELLOW
[2021-03-07 20:38] VITALS: BP 116/62; PULSE 86; RESP 11; TEMP 37.2; O2SAT 98
[2021-03-07 20:50] LABS: Glucose, Whole Blood 104 mg/dL (60-115)
[2021-03-07 21:36] LABS: C Reactive Protein 6.33 mg/dL (< or = 0.50)
[2021-03-07 22:13] LABS: Erythrocyte Sedimentation Rate 95 MM/HR (0-15)
[2021-03-07 22:40] VITALS: BP 101/56; PULSE 83; RESP 14; TEMP 36.9; O2SAT 97
--- NOTE | 2021-03-07 23:06 | PC.NURSE ---
MR and Covid swab obtained and sent. Pt resting in bed in POC, awaiting room assignment.
[2021-03-07 23:24] LABS: COVID-19 Test Negative (Negative); IDNOW Serial# 9DD0AD1C
[2021-03-08] VITALS (11 sets, daily range): BP systolic 110–153; BP diastolic 54–74; PULSE 77–90; RESP 14–20; TEMP 35.9–36.5; O2SAT 93–98
--- NOTE | 2021-03-08 00:13 | PC.NURSE ---
RT at bedside for CPAP placement.
--- NOTE | 2021-03-08 04:32 | PC.NURSE ---
Pt voiding in bedside urinal, 800 ml of UO. Pt repositioned into POC, requesting water. Lights dim for comfort. Pt aware of plan to admit when beds are available.
[2021-03-08] MEDS: Lactated Ringers 1,000 ML 100 ML IVCONT ×2 (05:26→16:43)
[2021-03-08] MEDS: Acetaminophen 325 MG TABLET 650 MG PO ×2 (05:33→16:46)
[2021-03-08] MEDS: Magnesium Oxide 400 MG TABLET PO ×3 (05:33→21:35)
[2021-03-08] MEDS: Gabapentin 600 MG TABLET PO ×2 (05:33→21:35)
[2021-03-08] MEDS: 0.9 % Sodium Chloride Flush 3 ML SYRINGE IVFLUSH ×3 (05:34→16:43)
--- NOTE | 2021-03-08 05:37 | PC.NURSE ---
Addendum entered by Tamiko Pelayo 03/08/21 05:42: Lovenox not stocked in pyxis, this RN to contact pharmacy @ [phone]. Original Note: Pt medicated per MAR. Pt requesting Oxycodone for 9/10 pain. Pt advised by this RN that Oxycodone was not on his MAR at this time. Pt sttaed Why?! I've been here before! Oxy is the only thing that works for me! Pt agreeable to Tylenol and Gabapentin at this time, pt advised to ring if his pain is not relieved. Pt assisted into POC, lights dim per request. Continue to monitor.
--- NOTE | 2021-03-08 06:17 | PM.IMHP ---
History of Present Illness Date of Service: 03/08/21 Chief Complaint: Decreased urine output This is a 61-year-old male with past medical history of diabetes, hypertension, MGUS, peripheral neuropathy, PVD, status post bilateral BKA, sleep apnea, who presents to the hospital with complaints of not being able to urinate for the past 2 days. Patient reports he is also having right sided pain with movement that has been chronic since his most recent admission in February and a fall 4-5 weeks ago, he is also complaining that there are still sutures attached to his wound from his recent BKA in December. Of note patient was discharged from the hospital on February 25 after being managed for cellulitis of the left BKA wound. Patient was sent home on doxycycline, reports that he has 3 more days of treatment. Patient reports that he has not been eating or drinking well, he does any been drinking of water. He is not sure why he is not drinking water but reports that for the past 2 days he has not had any home health aide. Denies any fever or chills. When asked about his left amputation site and recent cellulitis reports that it is still very tender specifically to touch but the redness, inflammation, and swelling has significantly improved and he does not see a being worsened. He reports that the right ribcage pain is mostly with movement, has not changed, and is managed well with his pain medications at home. The only thing that is concerning to him is his inability to urinate and he reports that he does not drink enough water specially in the past 2 days. Review of system otherwise negative On arrival to the ED patient hemodynamically stable with no significant abnormal vitals Labs are significant for WBC of 11.7, hemoglobin of 10.9, ESR of 95, BUN of 40, creatinine of 1.74 with a baseline around 1.01, 95 which has improved from previous, CRP of 6.33 which has also improved from September which was 15.88, UA negative Bladder scan showed patient to have about 300 cc of urine in his bladder X-ray of the left knee shows possible soft tissue swelling in the remaining left lower leg with no x-ray evidence of osteomyelitis Patient will be admitted for CIRILO Review of Systems Review of Systems: Yes all other systems are reviewed and are negative [facility] Medical History Amputated great toe of right foot Back pain Diabetic foot infection Drug-induced thrombocytopenia Hyperlipidemia Hypertension IDDM (insulin dependent diabetes mellitus) MGUS (monoclonal gammopathy of unknown significance) Neck pain Peripheral neuropathy Psychiatric diagnosis PVD (peripheral vascular disease) Sleep apnea Family History Other No history of heart disease Surgical History H/O colonoscopy Hx of angioplasty Hx of appendectomy Hx of foot surgery Hx of tonsillectomy Hx of umbilical hernia repair S/P BKA (below knee amputation) bilateral Status post below-knee amputation Social History Household Members: None Housing: Apartment Do you presently have visiting nurse or other home services: Yes Alcohol intake: never Patient Tobacco Use Status: Former Tobacco user Second Hand Smoke Exposure: No Advance Directives: Yes Advance Directives on File: Yes Advance Directives Date on File: 09/27/20 service: Yes Current occupational status: unemployed Meds Allergies Allergy/AdvReac Type Severity Reaction Status Date / Time vancomycin AdvReac Severe thrombocyto Verified 01/30/21 15:42 penia Active Medications: Current Medications Generic Name Dose Route Start Last Admin Trade Name Freq PRN Reason Stop Dose Admin Acetaminophen 650 mg 03/08/21 04:53 03/08/21 05:33 Acetaminophen 325 Mg Tablet PO 650 mg Q6H PRN Administration Pain, Mild (Pain Scale 1-3) Aspirin 81 mg 03/08/21 09:00 Aspirin Enteric Coated 81 Mg Tablet. PO DAILY [facility] Atorvastatin Calcium 40 mg 03/08/21 09:00 Atorvastatin Calcium 40 Mg Tablet PO DAILY [facility] Docusate Sodium 100 mg 03/08/21 04:53 Docusate Sodium 100 Mg Capsule PO DAILY PRN Constipation Doxycycline Hyclate 100 mg 03/08/21 05:30 03/08/21 05:33 Doxycycline Hyclate 100 Mg Tablet PO 100 mg Q12H TJ Administration Enoxaparin Sodium 110 mg 03/08/21 05:30 Enoxaparin Sodium 120 Mg/0.8 Ml Syringe SUBCUT Q12H TJ Gabapentin 600 mg 03/08/21 04:53 03/08/21 05:33 Gabapentin 600 Mg Tablet PO 600 mg BID TJ Administration Lactated Ringer's 1,000 mls @ 100 mls/hr 03/08/21 04:53 03/08/21 05:26 Lr IVCONT 100 mls/hr .Q10H TJ Administration Magnesium Oxide 400 mg 03/08/21 04:53 03/08/21 05:33 Magnesium Oxide 400 Mg Tablet PO 400 mg BID TJ Administration Ondansetron HCl 4 mg 03/08/21 04:53 Ondansetron Hcl 4 Mg/2 Ml Vial IVPUSH Q8H PRN Nausea and Vomiting Polyethylene Glycol 17 gm 03/08/21 09:00 Polyethylene Glycol 3350 17 Gm Powd.Pack PO DAILY [facility] Sodium Chloride 3 ml 03/08/21 04:53 03/08/21 05:34 0.9 % Sodium Chloride Flush 3 Ml Syringe IVFLUSH 3 ml QSHIFT [facility] Administration Vitamin D 25 mcg 03/08/21 09:00 Cholecalciferol (Vitamin D3) 25 Mcg Tablet PO DAILY [facility] Home Medications Medication Instructions Recorded Confirmed Last Taken Type Victoza 3-Chet 1.8 mg SUBCUT DAILY 07/17/20 03/07/21 03/07/21 10:00 History aspirin 81 mg PO DAILY 07/17/20 03/07/21 03/06/21 08:00 History gabapentin 600 mg PO BID 07/17/20 03/07/21 03/07/21 08:00 History lisinopril 5 mg PO DAILY 07/17/20 03/07/21 03/07/21 08:00 History metformin 1,000 mg PO BID 07/17/20 03/07/21 03/07/21 08:00 History cholecalciferol (vitamin D3) 25 mcg PO DAILY 09/04/20 03/07/21 03/07/21 08:00 History fluoxetine 20 mg capsule 20 mg PO DAILY 10/01/20 03/07/21 03/07/21 08:00 History atorvastatin 40 mg PO DAILY 10/09/20 03/07/21 03/05/21 21:00 History albuterol sulfate 90 mcg/actuation 2 puff INHALATION Q4-6H PRN 12/17/20 03/07/21 01/20/21 History aerosol inhaler Tresiba FlexTouch U-100 50 unit SUBCUT QPM 12/23/20 02/22/21 03/06/21 21:00 History Tresiba FlexTouch U-100 80 unit SUBCUT QAM 12/23/20 02/22/21 03/07/21 10:00 History enoxaparin 110 mg SUBCUT BID 02/22/21 03/07/21 03/07/21 08:00 History magnesium oxide 400 mg PO BID 03/07/21 03/07/21 Unknown History Physical Exam Vital Signs and Narrative: Vital Signs: Last Vital Signs Temp 98.4 F 03/07/21 22:40 Pulse 82 03/08/21 04:23 Resp 20 03/08/21 05:57 BP 115/54 L 03/08/21 04:23 Pulse Ox 98 03/08/21 04:23 Body Mass Index 48.8 Const: General: cooperative and no acute distress Orientation/consciousness: patient oriented x3 Eyes: General: appearance normal, both eyes and all related structures Pupils: Equal, round and reactive pupils present Resp: Effort & Inspection: normal respiratory effort and able to speak in complete sentences Cardio: Rate: regular rate Rhythm: regular rhythm GI: Palpation (GI): Soft to palpation Auscultation: normal bowel sounds Skin: Other: Skin changes around recent BKA wound on the left Neuro: General: patient oriented x3 Cranial nerves: Yes Equal, round and reactive pupils present Cognition (Neuro): normal cognition Extrem: Other: Bilateral below-knee amputation, left surgical stump shows mild erythema, no significant warmth as compared to right, no drainage, tender to touch. no purulence a General: Yes no pedal edema Results Labs CBC and Chem 7: 03/07/21 18:12 03/07/21 18:12 Labs: Laboratory Results - last 24 hr 03/07/21 03/07/21 03/07/21 18:12 18:12 18:12 MCV 91.3 MCH 31.8 MCHC 34.8 RDW 13.3 Plt Count 331 D MPV 10.5 Immature Gran % (Auto) 0.8 H Neut % (Auto) 62.1 Lymph % (Auto) 24.6 [place] % (Auto) 10.7 Eos % (Auto) 1.4 Baso % (Auto) 0.4 Lymph # (Auto) 2.9 [place] # (Auto) 1.3 H Eos # (Auto) 0.2 Baso # (Auto) 0.1 Abs Immat Gran (auto) 0.09 H Absolute Neuts (auto) 7.3 Absolute Nucleated RBC 0.000 Nucleated RBC % (auto) 0.0 ESR APTT 48.3 H Anion Gap 18 Estim Creat Clear Calc 46.9 Estimated GFR 40 POC Glucose Random Glucose 128 H Lactic Acid Calcium 9.2 Magnesium Total Bilirubin 0.6 Direct Bilirubin 0.2 AST 17 ALT 12 Alkaline Phosphatase 78 Troponin I High Sens C-Reactive Protein 6.33 H Total Protein 7.2 Albumin 3.7 Lipase 24 Urine Color Urine Appearance Urine pH Ur Specific Bee Urine Protein Urine Glucose (UA) Urine Ketones Urine Blood Urine Nitrite Ur Leukocyte Esterase COVID-19 (JOSE) COVID-19 Clin Com 03/07/21 03/07/21 03/07/21 18:12 18:12 18:12 MCV MCH MCHC RDW Plt Count MPV Immature Gran % (Auto) Neut % (Auto) Lymph % (Auto) [place] % (Auto) Eos % (Auto) Baso % (Auto) Lymph # (Auto) [place] # (Auto) Eos # (Auto) Baso # (Auto) Abs Immat Gran (auto) Absolute Neuts (auto) Absolute Nucleated RBC Nucleated RBC % (auto) ESR APTT Anion Gap Estim Creat Clear Calc Estimated GFR POC Glucose Random Glucose Lactic Acid 2.0 Calcium Magnesium 1.6 Total Bilirubin Direct Bilirubin AST ALT Alkaline Phosphatase Troponin I High Sens 5.3 C-Reactive Protein Total Protein Albumin Lipase Urine Color Urine Appearance Urine pH Ur Specific Bee Urine Protein Urine Glucose (UA) Urine Ketones Urine Blood Urine Nitrite Ur Leukocyte Esterase COVID-19 (JOSE) COVID-19 Clin Com 03/07/21 03/07/21 03/07/21 18:12 18:14 19:58 MCV MCH MCHC RDW Plt Count MPV Immature Gran % (Auto) Neut % (Auto) Lymph % (Auto) [place] % (Auto) Eos % (Auto) Baso % (Auto) Lymph # (Auto) [place] # (Auto) Eos # (Auto) Baso # (Auto) Abs Immat Gran (auto) Absolute Neuts (auto) Absolute Nucleated RBC Nucleated RBC % (auto) ESR 95 H APTT Anion Gap Estim Creat Clear Calc Estimated GFR POC Glucose 128 H Random Glucose Lactic Acid Calcium Magnesium Total Bilirubin Direct Bilirubin AST ALT Alkaline Phosphatase Troponin I High Sens C-Reactive Protein Total Protein Albumin Lipase Urine Color DARK YELLOW Urine Appearance CLEAR Urine pH 6.0 Ur Specific Bee >= 1.030 H Urine Protein NEG Urine Glucose (UA) NEG Urine Ketones NEG Urine Blood NEG Urine Nitrite NEG Ur Leukocyte Esterase NEG COVID-19 (JOSE) COVID-19 Clin Com 03/07/21 03/07/21 20:45 23:05 MCV MCH MCHC RDW Plt Count MPV Immature Gran % (Auto) Neut % (Auto) Lymph % (Auto) [place] % (Auto) Eos % (Auto) Baso % (Auto) Lymph # (Auto) [place] # (Auto) Eos # (Auto) Baso # (Auto) Abs Immat Gran (auto) Absolute Neuts (auto) Absolute Nucleated RBC Nucleated RBC % (auto) ESR APTT Anion Gap Estim Creat Clear Calc Estimated GFR POC Glucose 104 Random Glucose Lactic Acid Calcium Magnesium Total Bilirubin Direct Bilirubin AST ALT Alkaline Phosphatase Troponin I High Sens C-Reactive Protein Total Protein Albumin Lipase Urine Color Urine Appearance Urine pH Ur Specific Bee Urine Protein Urine Glucose (UA) Urine Ketones Urine Blood Urine Nitrite Ur Leukocyte Esterase COVID-19 (JOSE) Negative COVID-19 Clin Com See Note Imaging Radiologist's Impressions: Impressions Chest CT 03/07/21 17:32 IMPRESSION: There is no acute abnormality of the chest. There is no rib fracture. Knee X-Ray 03/07/21 19:32 IMPRESSION: Possible soft tissue swelling in the remaining left lower leg. No x-ray evidence for osteomyelitis. Assessment and Plan (1) CIRILO (acute kidney injury): Status: Acute This is a 61-year-old male with past medical history of diabetes status post bilateral BKA presents to the hospital with complaints of decreased urinary output. Found to have CIRILO # CIRILO - most likely secondary to poor oral intake of fluids - patient reports that he has not been drinking enough fluids for the past 1 week worse in the past 2 to - no significant urinary retention, no infection - will start him on IV fluid - hold nephrotoxic medications - follow BMP # recent cellulitis - improving - minimal erythema, no significant warmth as compared to the right, tenderness chronic and not worsening - patient on doxycycline, will continue for 3 more doses - will consult general surgery for bernie that are present at the wound site since December # diabetes - home metformin - start low-dose sliding scales - diabetic diet # diabetic neuropathy - continue gabapentin # hypertension -stable - will hold lisinopril in the setting of CIRILO # history of PE - continue Eliquis # hyperlipidemia - continue stat DVT prophylaxis: Eliquis Quality Stroke Does the patient have a stroke diagnosis?: No VTE Prior VTE?: No VTE Risk Level:: Medical - moderate - high VTE Device Contraindication: Treatment Not Indicated VTE Drug Contraindication: N/A - Med Ordered
[2021-03-08] MEDS: Enoxaparin Sodium 120 MG/0.8 ML SYRINGE 110 MG SUBCUT ×2 (06:42→16:45)
--- NOTE | 2021-03-08 07:46 | PC.NURSE ---
pt sleeping with his cpap on, easily arousable pt oriented x3. pt reports having some in the left stump area, amputation performed in December, pain at 9/ but states some relief after the gabapentin. left stump reddish in color and warm to touch, and it appears like few sutures are still in place. right stump amputated back in August per pt, stump looks like its healing well. pt awaiting room assignment, vs stable. pt provided with his breakfast mary lou
[2021-03-08 07:48] LABS: Glucose, Whole Blood 109 mg/dL (60-115)
[2021-03-08] MEDS: polyethylene glycoL 3350 17 GM POWD.PACK PO (08:07)
[2021-03-08 08:08] LABS: MANUAL DIFF FLAG NO
[2021-03-08 08:10] LABS: Basophils Percent Auto 0.4 % (0-2); Eosinophils Absolute Auto 0.2 X10*3/uL (0.0-0.4); Eosinophils Percent Auto 2.1 % (0-4); Hematocrit 29.9 % (42-52); Imm Gran Abs Auto 0.05 X10*3/uL (0.00-0.03); Imm Gran Pct Auto 0.6 % (0.0-0.4); Lymphocytes Percent Auto 23.8 % (20-40); Mean Corpuscular HGB Conc 33.4 g/dl (31.0-36.0); Mean Corpuscular Hemoglobin 30.8 pg (27.0-33.0); Mean Platelet Volume 10.4 fL (9.4-12.4); Monocytes Absolute Auto 0.9 X10*3/uL (0.1-1.2); Monocytes Percent Auto 11.1 % (2-11); Neutrophils Absolute Auto 5.1 X10*3/uL (2.0-8.3); Platelet Count 292 X10*3/uL (160-400); Red Blood Count 3.25 X10*6/uL (4.60-5.80); Red Cell Distribution Width 13.2 % (11.0-16.0); White Blood Count 8.2 X10*3/uL (4.8-10.8)
--- NOTE | 2021-03-08 08:15 | PC.NURSE ---
called med/surge to give report, no answer at this time
[2021-03-08] MEDS: Cholecalciferol (Vitamin D3) 25 MCG TABLET PO (08:19)
[2021-03-08] MEDS: Atorvastatin Calcium 40 MG TABLET PO (08:19)
[2021-03-08] MEDS: Aspirin Enteric Coated 81 MG TABLET.DR PO (08:19)
[2021-03-08 08:34] LABS: INTERNATIONAL NORM RATIO 1.2 (0.9-1.1); Prothrombin Time 13.3 SEC (9.9-13.0)
[2021-03-08 08:48] LABS: Anion Gap 13 (12-20); Blood Urea Nitrogen 30 mg/dL (9-16); Carbon Dioxide 22 mmol/L (22-29); Chloride 104 mmol/L (96-108); Estimated Glomerular Filt Rate > 60; Glucose Random 118 mg/dL (60-115); Potassium 4.3 mmol/L (3.3-5.1); Sodium 135 mmol/L (135-145)
--- NOTE | 2021-03-08 08:54 | PC.NURSE ---
report given to rahul tran
[2021-03-08 11:24] LABS: Glucose, Whole Blood 168 mg/dL (60-115)
[2021-03-08] MEDS: Insulin Lispro 100 UNIT/ML 3 ML VIAL SUBCUT ×3 (11:35→21:38)
[2021-03-08] MEDS: oxyCODONE HCl Immed Release 5 MG TABLET 2.5 MG PO ×2 (11:35→18:39)
--- NOTE | 2021-03-08 15:05 | P.CONGS_ITS ---
History of Present Illness Consult details Consult date: 03/08/21 Requesting physician: Dede Diaz Narrative: 61-year-old male patient with history of diabetes mellitus, peripheral vascular disease, status post bilateral below-knee amputation admitted to the hospitalist team for acute kidney injury. He underwent a left below-knee amputation of 01/02/[address] Figueroa, vascular surgery. He apparently had some cellulitis in the left BKA wound but this is now resolved. He reports having several residual bernie in the stump which is causing some di scomfort. Surgical consultation was requested for removal of these bernie. He denies any bleeding or discharge from the wound. Patient will be admitted for CIRILO Review of Systems Review of Systems: Yes all other systems are reviewed and are negative Constitutional: Constitutional: Denies body ache(s), Denies chills and Denies fever(s) Cardiovascular: Cardiovascular: Denies chest pain Genitourinary: Genitourinary: Reports oliguria and Reports difficulty urinating Musculoskeletal: Musculoskeletal: Reports as per [facility] Past Medical History Medical History Amputated great toe of right foot Back pain Diabetic foot infection Drug-induced thrombocytopenia Hyperlipidemia Hypertension IDDM (insulin dependent diabetes mellitus) MGUS (monoclonal gammopathy of unknown significance) Neck pain Peripheral neuropathy Psychiatric diagnosis PVD (peripheral vascular disease) Sleep apnea Family History Family History Other No history of heart disease Surgical History Surgical History (Updated 03/08/21 @ 15:40 by Oren Blackburn MD) H/O colonoscopy Hx of angioplasty Hx of appendectomy Hx of foot surgery Hx of tonsillectomy Hx of umbilical hernia repair S/P BKA (below knee amputation) bilateral Status post below-knee amputation Social History Social History Household Members: None Housing: Apartment Do you presently have visiting nurse or other home services: Yes (vna, bus and sys 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 If so, by whom?: No Do you feel safe in your current relationship?: No Is there a partner from a previous relationship who is making you feel unsafe now?: No Are you made to feel afraid or neglected: No Advance Directives: Yes Advance Directives Information Provided: No Advance Directives on File: Yes Advance Directives Date on File: 09/27/20 Do you have thoughts of harming others: None Recently lost weight without trying: No Eating poorly because of decreased appetite: No Nutrition Risks: No Nutritional Risk Poor oral hygiene: No service: Yes Current occupational status: unemployed Meds Allergies Allergy/AdvReac Type Severity Reaction Status Date / Time vancomycin AdvReac Severe thrombocyto Verified 01/30/21 15:42 penia Active Medications: Current Medications Generic Name Dose Route Start Last Admin Trade Name Freq PRN Reason Stop Dose Admin Acetaminophen 650 mg 03/08/21 04:53 03/08/21 05:33 Acetaminophen 325 Mg Tablet PO 650 mg Q6H PRN Administration Pain, Mild (Pain Scale 1-3) Aspirin 81 mg 03/08/21 09:00 03/08/21 08:19 Aspirin Enteric Coated 81 Mg Tablet.Dr PO 81 mg DAILY TJ Administration Atorvastatin Calcium 40 mg 03/08/21 09:00 03/08/21 08:19 Atorvastatin Calcium 40 Mg Tablet PO 40 mg DAILY TJ Administration Docusate Sodium 100 mg 03/08/21 04:53 Docusate Sodium 100 Mg Capsule PO DAILY PRN Constipation Doxycycline Hyclate 100 mg 03/08/21 05:30 03/08/21 05:33 Doxycycline Hyclate 100 Mg Tablet PO 100 mg Q12H TJ Administration Enoxaparin Sodium 110 mg 03/08/21 05:30 03/08/21 06:42 Enoxaparin Sodium 120 Mg/0.8 Ml Syringe SUBCUT 110 mg Q12H TJ Administration Gabapentin 600 mg 03/08/21 04:53 03/08/21 09:40 Gabapentin 600 Mg Tablet PO Not Given BID TJ Lactated Ringer's 1,000 mls @ 100 mls/hr 03/08/21 04:53 03/08/21 05:26 Lr IVCONT 100 mls/hr .Q10H TJ Administration Insulin Human Lispro 0 unit 03/08/21 07:30 03/08/21 11:35 Insulin Lispro 100 Unit/Ml 3 Ml Vial SUBCUT 2 unit QIDACHS [facility] Administration Protocol Magnesium Oxide 400 mg 03/08/21 04:53 03/08/21 09:43 Magnesium Oxide 400 Mg Tablet PO 400 mg BID TJ Administration Ondansetron HCl 4 mg 03/08/21 04:53 Ondansetron Hcl 4 Mg/2 Ml Vial IVPUSH Q8H PRN Nausea and Vomiting Oxycodone HCl 2.5 mg 03/08/21 10:40 03/08/21 11:35 Oxycodone Hcl Immed Release 5 Mg Tablet PO 2.5 mg Q6H PRN Administration Pain, Severe (Pain Scale 7-10) Polyethylene Glycol 17 gm 03/08/21 09:00 03/08/21 08:07 Polyethylene Glycol 3350 17 Gm Powd.Pack PO 17 gm DAILY TJ Administration Sodium Chloride 3 ml 03/08/21 04:53 03/08/21 08:55 0.9 % Sodium Chloride Flush 3 Ml Syringe IVFLUSH 3 ml QSHIFT [facility] Administration Vitamin D 25 mcg 03/08/21 09:00 03/08/21 08:19 Cholecalciferol (Vitamin D3) 25 Mcg Tablet PO 25 mcg DAILY TJ Administration Home Medications Medication Instructions Recorded Confirmed Last Taken Type Victoza 3-Chet 1.8 mg SUBCUT DAILY 07/17/20 03/07/21 03/07/21 10:00 History aspirin 81 mg PO DAILY 07/17/20 03/07/21 03/06/21 08:00 History gabapentin 600 mg PO BID 07/17/20 03/07/21 03/07/21 08:00 History lisinopril 5 mg PO DAILY 07/17/20 03/07/21 03/07/21 08:00 History metformin 1,000 mg PO BID 07/17/20 03/07/21 03/07/21 08:00 History cholecalciferol (vitamin D3) 25 mcg PO DAILY 09/04/20 03/07/21 03/07/21 08:00 History fluoxetine 20 mg capsule 20 mg PO DAILY 10/01/20 03/07/21 03/07/21 08:00 History atorvastatin 40 mg PO DAILY 10/09/20 03/07/21 03/05/21 21:00 History albuterol sulfate 90 mcg/actuation 2 puff INHALATION Q4-6H PRN 12/17/20 03/07/21 01/20/21 History aerosol inhaler Tresiba FlexTouch U-100 50 unit SUBCUT QPM 12/23/20 02/22/21 03/06/21 21:00 History Tresiba FlexTouch U-100 80 unit SUBCUT QAM 12/23/20 02/22/21 03/07/21 10:00 History enoxaparin 110 mg SUBCUT BID 02/22/21 03/07/21 03/07/21 08:00 History magnesium oxide 400 mg PO BID 03/07/21 03/07/21 Unknown History Physical Exam Vital Signs: Vital Signs: Last Vital Signs Temp 96.7 F L 03/08/21 10:56 Pulse 80 03/08/21 10:56 Resp 16 03/08/21 10:56 BP 153/74 H 03/08/21 10:56 Pulse Ox 98 03/08/21 10:56 Body Mass Index 48.8 Const: General: comfortable, no acute distress and well developed Nutritional Appearance: well nourished Orientation/consciousness: patient oriented x3 Limitations: no limitations HENMT: Head: Yes normocephalic and Yes atraumatic Ears: hearing grossly normal bilaterally Resp: Other: Sleeping with CPAP Effort & Inspection: normal respiratory effort, no respiratory distress and no stridor Auscultation: no rhonchi Neuro: General: patient oriented x3 Extrem: Other: well-healed right below-knee amputation; left BKA is now well healed with several bernie in bed in the skin. There is no redness or discharge. No evidence of underlying infection. Results Labs Result diagrams: 03/08/21 07:32 03/08/21 07:32 Labs: Abnormal lab results 03/07/21 03/07/21 03/07/21 Range/Units 18:12 18:12 18:12 WBC 11.7 H (4.8-10.8) X10*3/uL RBC 3.43 L (4.60-5.80) X10*6/uL Hgb 10.9 L (14.0-18.0) g/dl Hct 31.3 L (42-52) % Immature Gran % (Auto) 0.8 H (0.0-0.4) % [place] % (Auto) (2-11) % [place] # (Auto) 1.3 H (0.1-1.2) X10*3/uL Abs Immat Gran (auto) 0.09 H (0.00-0.03) X10*3/uL ESR (0-15) MM/HR PT (9.9-13.0) SEC INR (0.9-1.1) APTT 48.3 H (24.1-38.0) SEC Carbon Dioxide 21 L (22-29) mmol/L BUN 40 H D (9-16) mg/dL Creatinine 1.74 H (0.5-1.4) mg/dL POC Glucose (60-115) mg/dL Random Glucose 128 H (60-115) mg/dL C-Reactive Protein 6.33 H (< or = 0.50) mg/dL Ur Specific [place] (1.005-1.025) 03/07/21 03/07/21 03/07/21 Range/Units 18:12 18:14 19:58 WBC (4.8-10.8) X10*3/uL RBC (4.60-5.80) X10*6/uL Hgb (14.0-18.0) g/dl Hct (42-52) % Immature Gran % (Auto) (0.0-0.4) % [place] % (Auto) (2-11) % [place] # (Auto) (0.1-1.2) X10*3/uL Abs Immat Gran (auto) (0.00-0.03) X10*3/uL ESR 95 H (0-15) MM/HR PT (9.9-13.0) SEC INR (0.9-1.1) APTT (24.1-38.0) SEC Carbon Dioxide (22-29) mmol/L BUN (9-16) mg/dL Creatinine (0.5-1.4) mg/dL POC Glucose 128 H (60-115) mg/dL Random Glucose (60-115) mg/dL C-Reactive Protein (< or = 0.50) mg/dL Ur Specific [place] >= 1.030 H (1.005-1.025) 03/08/21 03/08/21 03/08/21 Range/Units 07:32 07:32 07:32 WBC (4.8-10.8) X10*3/uL RBC 3.25 L (4.60-5.80) X10*6/uL Hgb 10.0 L (14.0-18.0) g/dl Hct 29.9 L (42-52) % Immature Gran % (Auto) 0.6 H (0.0-0.4) % [place] % (Auto) 11.1 H (2-11) % [place] # (Auto) (0.1-1.2) X10*3/uL Abs Immat Gran (auto) 0.05 H (0.00-0.03) X10*3/uL ESR (0-15) MM/HR PT 13.3 H (9.9-13.0) SEC INR 1.2 H (0.9-1.1) APTT (24.1-38.0) SEC Carbon Dioxide (22-29) mmol/L BUN 30 H (9-16) mg/dL Creatinine (0.5-1.4) mg/dL POC Glucose (60-115) mg/dL Random Glucose 118 H (60-115) mg/dL C-Reactive Protein (< or = 0.50) mg/dL Ur Specific [place] (1.005-1.025) 03/08/ Range/Units 11:19 WBC (4.8-10.8) X10*3/uL RBC (4.60-5.80) X10*6/uL Hgb (14.0-18.0) g/dl Hct (42-52) % Immature Gran % (Auto) (0.0-0.4) % [place] % (Auto) (2-11) % [place] # (Auto) (0.1-1.2) X10*3/uL Abs Immat Gran (auto) (0.00-0.03) X10*3/uL ESR (0-15) MM/HR PT (9.9-13.0) SEC INR (0.9-1.1) APTT (24.1-38.0) SEC Carbon Dioxide (22-29) mmol/L BUN (9-16) mg/dL Creatinine (0.5-1.4) mg/dL POC Glucose 168 H (60-115) mg/dL Random Glucose (60-115) mg/dL C-Reactive Protein (< or = 0.50) mg/dL Ur Specific [place] (1.005-1.025) Short CBC 03/07/21 03/08/21 Range/Units 18:12 07:32 WBC 11.7 H 8.2 (4.8-10.8) X10*3/uL Hgb 10.9 L 10.0 L (14.0-18.0) g/dl Hct 31.3 L 29.9 L (42-52) % Plt Count 331 D 292 (160-400) X10*3/uL BMP 03/07/21 03/08/21 18:12 07:32 Sodium 136 135 Potassium 4.6 4.3 Chloride 102 104 Carbon Dioxide 21 L 22 BUN 40 H D 30 H Creatinine 1.74 H 1.02 Calcium 9.2 9.0 Liver Function 03/07/21 Range/Units 18:12 Total Bilirubin 0.6 (0.0-1.0) mg/dL Direct Bilirubin 0.2 (0.0-0.5) mg/dL AST 17 (5-37) U/L ALT 12 (0-40) U/L Alkaline Phosphatase 78 (39-117) U/L Albumin 3.7 (3.5-5.0) g/dL Urine 03/07/21 Range/Units 19:58 Urine Color DARK YELLOW Urine Appearance CLEAR Urine pH 6.0 (5.0-8.0) Ur Specific [place] >= 1.030 H (1.005-1.025) Urine Protein NEG (NEG-TRACE) MG/DL Urine Glucose (UA) NEG (NEG) MG/DL All other labs normal. Assessment and Plan (1) S/P BKA (below knee amputation) bilateral: Status: Inactive Surgical consultation requested for wound check of the left below-knee amputation. This was performed by Dr. Figueroa on 01/02/2021. Wounds are well healed but several bernie remain within the stump. There is no evidence of wound separation or infection. He should follow up as an outpatient with Dr. Figueroa for staple removal. Procedures Date of Service Date of Service: 03/08/21
--- NOTE | 2021-03-08 16:30 | P.PNIM_ITS ---
Subjective Subjective Date of Service: 03/08/21 Interval History: the patient was seen and evaluated this morning Laying in bed, complaining of pain at the bernie side from the most recent surgery Passing more urine today Denies any fever, chills or shortness of breath No reported other overnight events. Systemic review: No fever, chills or weakness No chest pain, palpitation No shortness of breath or coughing No abdominal pain, nausea or vomiting Was not making urine Pain at the site of the surgery Physical Exam Vital Signs: Vital Signs: Last Vital Signs Temp 96.9 F 03/08/21 15:23 Pulse 77 03/08/21 15:23 Resp 16 03/08/21 15:23 BP 119/72 03/08/21 15:23 Pulse Ox 98 03/08/21 15:23 Body Mass Index 48.8 Const: Other: Constitutional : Alert, oriented, not in distress Neck : Normal inspection, Supple Cardiovascular : RRR, S1 S2, no lower extremity edema Respiratory : Good bilateral air entry, no crackles, wheezes or rhonchi Gastrointestinal: soft, lax, Normal bowel sounds, Non tender Skin : Warm/Dry, stump area erythema improved, tenderness at the site of bernie but no drainage noted Skeletal: below-knee amputation Neurological : Alert & oriented x3, No focal deficit Objective Data Current Medications Generic Name Dose Route Start Last Admin Trade Name Daronq PRN Reason Stop Dose Admin Acetaminophen 650 mg 03/08/21 04:53 03/08/21 05:33 Acetaminophen 325 Mg Tablet PO 650 mg Q6H PRN Administration Pain, Mild (Pain Scale 1-3) Aspirin 81 mg 03/08/21 09:00 03/08/21 08:19 Aspirin Enteric Coated 81 Mg Tablet. PO 81 mg DAILY TJ Administration Atorvastatin Calcium 40 mg 03/08/21 09:00 03/08/21 08:19 Atorvastatin Calcium 40 Mg Tablet PO 40 mg DAILY TJ Administration Docusate Sodium 100 mg 03/08/21 04:53 Docusate Sodium 100 Mg Capsule PO DAILY PRN Constipation Doxycycline Hyclate 100 mg 03/08/21 05:30 03/08/21 05:33 Doxycycline Hyclate 100 Mg Tablet PO 100 mg Q12H TJ Administration Enoxaparin Sodium 110 mg 03/08/21 05:30 03/08/21 06:42 Enoxaparin Sodium 120 Mg/0.8 Ml Syringe SUBCUT 110 mg Q12H TJ Administration Gabapentin 600 mg 03/08/21 04:53 03/08/21 09:40 Gabapentin 600 Mg Tablet PO Not Given BID [facility] Lactated Ringer's 1,000 mls @ 100 mls/hr 03/08/21 04:53 03/08/21 05:26 Lr IVCONT 100 mls/hr .Q10H TJ Administration Insulin Human Lispro 0 unit 03/08/21 07:30 03/08/21 11:35 Insulin Lispro 100 Unit/Ml 3 Ml Vial SUBCUT 2 unit QIDACHS [facility] Administration Protocol Magnesium Oxide 400 mg 03/08/21 04:53 03/08/21 09:43 Magnesium Oxide 400 Mg Tablet PO 400 mg BID TJ Administration Ondansetron HCl 4 mg 03/08/21 04:53 Ondansetron Hcl 4 Mg/2 Ml Vial IVPUSH Q8H PRN Nausea and Vomiting Oxycodone HCl 2.5 mg 03/08/21 10:40 03/08/21 11:35 Oxycodone Hcl Immed Release 5 Mg Tablet PO 2.5 mg Q6H PRN Administration Pain, Severe (Pain Scale 7-10) Polyethylene Glycol 17 gm 03/08/21 09:00 03/08/21 08:07 Polyethylene Glycol 3350 17 Gm Powd.Pack PO 17 gm DAILY TJ Administration Sodium Chloride 3 ml 03/08/21 04:53 03/08/21 08:55 0.9 % Sodium Chloride Flush 3 Ml Syringe IVFLUSH 3 ml QSHIFT TJ Administration Vitamin D 25 mcg 03/08/21 09:00 03/08/21 08:19 Cholecalciferol (Vitamin D3) 25 Mcg Tablet PO 25 mcg DAILY TJ Administration Labs CBC & Chem 7: 03/08/21 07:32 03/08/21 07:32 Labs: Laboratory Results - last 24 hr 03/07/21 03/07/21 03/07/21 18:12 18:12 18:12 WBC 11.7 H RBC 3.43 L Hgb 10.9 L Hct 31.3 L MCV 91.3 MCH 31.8 MCHC 34.8 RDW 13.3 Plt Count 331 D MPV 10.5 Immature Gran % (Auto) 0.8 H Neut % (Auto) 62.1 Lymph % (Auto) 24.6 [place] % (Auto) 10.7 Eos % (Auto) 1.4 Baso % (Auto) 0.4 Lymph # (Auto) 2.9 [place] # (Auto) 1.3 H Eos # (Auto) 0.2 Baso # (Auto) 0.1 Abs Immat Gran (auto) 0.09 H Absolute Neuts (auto) 7.3 Absolute Nucleated RBC 0.000 Nucleated RBC % (auto) 0.0 ESR PT INR APTT 48.3 H Sodium 136 Potassium 4.6 Chloride 102 Carbon Dioxide 21 L Anion Gap 18 BUN 40 H D Creatinine 1.74 H Estim Creat Clear Calc 46.9 Estimated GFR 40 POC Glucose Random Glucose 128 H Lactic Acid Calcium 9.2 Magnesium Total Bilirubin 0.6 Direct Bilirubin 0.2 AST 17 ALT 12 Alkaline Phosphatase 78 Troponin I High Sens C-Reactive Protein 6.33 H Total Protein 7.2 Albumin 3.7 Lipase 24 Urine Color Urine Appearance Urine pH Ur Specific [place] Urine Protein Urine Glucose (UA) Urine Ketones Urine Blood Urine Nitrite Ur Leukocyte Esterase COVID-19 (JOSE) COVID-19 Multi[employer]om 03/07/21 03/07/21 03/07/21 18:12 18:12 18:12 WBC RBC Hgb Hct MCV MCH MCHC RDW Plt Count MPV Immature Gran % (Auto) Neut % (Auto) Lymph % (Auto) [place] % (Auto) Eos % (Auto) Baso % (Auto) Lymph # (Auto) [place] # (Auto) Eos # (Auto) Baso # (Auto) Abs Immat Gran (auto) Absolute Neuts (auto) Absolute Nucleated RBC Nucleated RBC % (auto) ESR PT INR APTT Sodium Potassium Chloride Carbon Dioxide Anion Gap BUN Creatinine Estim Creat Clear Calc Estimated GFR POC Glucose Random Glucose Lactic Acid 2.0 Calcium Magnesium 1.6 Total Bilirubin Direct Bilirubin AST ALT Alkaline Phosphatase Troponin I High Sens 5.3 C-Reactive Protein Total Protein Albumin Lipase Urine Color Urine Appearance Urine pH Ur Specific [place] Urine Protein Urine Glucose (UA) Urine Ketones Urine Blood Urine Nitrite Ur Leukocyte Esterase COVID-19 (JOSE) COVID-19 Multiplicom 03/07/21 03/07/21 03/07/21 18:12 18:14 19:58 WBC RBC Hgb Hct MCV MCH MCHC RDW Plt Count MPV Immature Gran % (Auto) Neut % (Auto) Lymph % (Auto) [place] % (Auto) Eos % (Auto) Baso % (Auto) Lymph # (Auto) [place] # (Auto) Eos # (Auto) Baso # (Auto) Abs Immat Gran (auto) Absolute Neuts (auto) Absolute Nucleated RBC Nucleated RBC % (auto) ESR 95 H PT INR APTT Sodium Potassium Chloride Carbon Dioxide Anion Gap BUN Creatinine Estim Creat Clear Calc Estimated GFR POC Glucose 128 H Random Glucose Lactic Acid Calcium Magnesium Total Bilirubin Direct Bilirubin AST ALT Alkaline Phosphatase Troponin I High Sens C-Reactive Protein Total Protein Albumin Lipase Urine Color DARK YELLOW Urine Appearance CLEAR Urine pH 6.0 Ur Specific [place] >= 1.030 H Urine Protein NEG Urine Glucose (UA) NEG Urine Ketones NEG Urine Blood NEG Urine Nitrite NEG Ur Leukocyte Esterase NEG COVID-19 (JOSE) COVID-19 Clin Com 03/07/21 03/07/21 03/08/21 20:45 23:05 07:30 WBC RBC Hgb Hct MCV MCH MCHC RDW Plt Count MPV Immature Gran % (Auto) Neut % (Auto) Lymph % (Auto) [place] % (Auto) Eos % (Auto) Baso % (Auto) Lymph # (Auto) [place] # (Auto) Eos # (Auto) Baso # (Auto) Abs Immat Gran (auto) Absolute Neuts (auto) Absolute Nucleated RBC Nucleated RBC % (auto) ESR PT INR APTT Sodium Potassium Chloride Carbon Dioxide Anion Gap BUN Creatinine Estim Creat Clear Calc Estimated GFR POC Glucose 104 109 Random Glucose Lactic Acid Calcium Magnesium Total Bilirubin Direct Bilirubin AST ALT Alkaline Phosphatase Troponin I High Sens C-Reactive Protein Total Protein Albumin Lipase Urine Color Urine Appearance Urine pH Ur Specific [place] Urine Protein Urine Glucose (UA) Urine Ketones Urine Blood Urine Nitrite Ur Leukocyte Esterase COVID-19 (JOSE) Negative COVID-19 [employer] Com See Note 03/08/21 03/08/21 03/08/21 07:32 07:32 07:32 WBC 8.2 RBC 3.25 L Hgb 10.0 L Hct 29.9 L MCV 92.0 MCH 30.8 MCHC 33.4 RDW 13.2 Plt Count 292 MPV 10.4 Immature Gran % (Auto) 0.6 H Neut % (Auto) 62.0 Lymph % (Auto) 23.8 [place] % (Auto) 11.1 H Eos % (Auto) 2.1 Baso % (Auto) 0.4 Lymph # (Auto) 2.0 [place] # (Auto) 0.9 Eos # (Auto) 0.2 Baso # (Auto) 0.0 Abs Immat Gran (auto) 0.05 H Absolute Neuts (auto) 5.1 Absolute Nucleated RBC 0.000 Nucleated RBC % (auto) 0.0 ESR PT 13.3 H INR 1.2 H APTT Sodium 135 Potassium 4.3 Chloride 104 Carbon Dioxide 22 Anion Gap 13 BUN 30 H Creatinine 1.02 Estim Creat Clear Calc 80.0 Estimated GFR > 60 POC Glucose Random Glucose 118 H Lactic Acid Calcium 9.0 Magnesium Total Bilirubin Direct Bilirubin AST ALT Alkaline Phosphatase Troponin I High Sens C-Reactive Protein Total Protein Albumin Lipase Urine Color Urine Appearance Urine pH Ur Specific [place] Urine Protein Urine Glucose (UA) Urine Ketones Urine Blood Urine Nitrite Ur Leukocyte Esterase COVID-19 (JOSE) COVID-19 [employer] Com 03/08/21 11:19 WBC RBC Hgb Hct MCV MCH MCHC RDW Plt Count MPV Immature Gran % (Auto) Neut % (Auto) Lymph % (Auto) [place] % (Auto) Eos % (Auto) Baso % (Auto) Lymph # (Auto) [place] # (Auto) Eos # (Auto) Baso # (Auto) Abs Immat Gran (auto) Absolute Neuts (auto) Absolute Nucleated RBC Nucleated RBC % (auto) ESR PT INR APTT Sodium Potassium Chloride Carbon Dioxide Anion Gap BUN Creatinine Estim Creat Clear Calc Estimated GFR POC Glucose 168 H Random Glucose Lactic Acid Calcium Magnesium Total Bilirubin Direct Bilirubin AST ALT Alkaline Phosphatase Troponin I High Sens C-Reactive Protein Total Protein Albumin Lipase Urine Color Urine Appearance Urine pH Ur Specific [place] Urine Protein Urine Glucose (UA) Urine Ketones Urine Blood Urine Nitrite Ur Leukocyte Esterase COVID-19 (JOSE) COVID-19 Clin Com Imaging Knee x-ray, chest x-ray: Radiologist's impression: Impressions Chest CT 03/07/21 17:32 IMPRESSION: There is no acute abnormality of the chest. There is no rib fracture. Knee X-Ray 03/07/21 19:32 IMPRESSION: Possible soft tissue swelling in the remaining left lower leg. No x-ray evidence for osteomyelitis. Quality Stroke Does the patient have a stroke diagnosis?: No VTE Prior VTE?: No VTE Risk Level:: Medical - moderate - high VTE Device Contraindication: Treatment Not Indicated VTE Drug Contraindication: N/A - Med Ordered Assessment and Plan (1) CIRILO (acute kidney injury): Status: Acute Assessment and Plan: This is a 61-year-old male with past medical history of diabetes status post bilateral BKA presents to the hospital with complaints of decreased urinary output. Found to have CIRILO # CIRILO secondary to poor oral intake of fluids has not been drinking enough fluids for the past 1 week Continue IV fluid hold nephrotoxic medications follow BMP # recent cellulitis Improving continue doxycycline consult general surgery for wound check and bernie removal # depression, mood disturbance Patient reports depressed mood and feeling lonely He is not eating well at home and not drinking enough water To get care team evaluation # diabetes Hold metformin start low-dose sliding scales diabetic diet # diabetic neuropathy continue gabapentin # hypertension stable will hold lisinopril in the setting of CIRILO # history of PE continue Eliquis # hyperlipidemia continue statin DVT prophylaxis: Eliquis
[2021-03-08 16:42] LABS: Glucose, Whole Blood 171 mg/dL (60-115)
[2021-03-08 20:38] LABS: Glucose, Whole Blood 204 mg/dL (60-115)
[2021-03-09] MEDS: Lactated Ringers 1,000 ML 100 ML IVCONT (03:50)
[2021-03-09 03:58] VITALS: BP 124/68; PULSE 74; RESP 16; TEMP 36; O2SAT 95
[2021-03-09] MEDS: Enoxaparin Sodium 120 MG/0.8 ML SYRINGE 110 MG SUBCUT ×2 (06:23→16:57)
[2021-03-09 06:34] LABS: Hematocrit 30.3 % (42-52); Hemoglobin 9.9 g/dl (14.0-18.0); Mean Corpuscular HGB Conc 32.7 g/dl (31.0-36.0); Mean Corpuscular Hemoglobin 30.6 pg (27.0-33.0); Mean Corpuscular Volume 93.5 fL (80-98); Platelet Count 281 X10*3/uL (160-400); Red Blood Count 3.24 X10*6/uL (4.60-5.80); Red Cell Distribution Width 13.1 % (11.0-16.0); White Blood Count 6.2 X10*3/uL (4.8-10.8)
[2021-03-09 07:05] LABS: Anion Gap 12 (12-20); Blood Urea Nitrogen 20 mg/dL (9-16); Calcium 9.9 mg/dL (8.4-10.2); Carbon Dioxide 29 mmol/L (22-29); Chloride 103 mmol/L (96-108); Creatinine Clr Calc Pharmacy 84.1; Estimated Glomerular Filt Rate > 60; Glucose Random 207 mg/dL (60-115); Potassium 5.9 mmol/L (3.3-5.1); Sodium 138 mmol/L (135-145)
[2021-03-09 07:20] VITALS: BP 119/68; PULSE 71; RESP 18; TEMP 36.4; O2SAT 98
[2021-03-09] MEDS: Insulin Lispro 100 UNIT/ML 3 ML VIAL SUBCUT ×4 (07:43→20:45)
[2021-03-09] MEDS: Magnesium Oxide 400 MG TABLET PO ×2 (07:44→20:46)
[2021-03-09] MEDS: Cholecalciferol (Vitamin D3) 25 MCG TABLET PO (07:44)
[2021-03-09] MEDS: Aspirin Enteric Coated 81 MG TABLET.DR PO (07:44)
[2021-03-09] MEDS: Atorvastatin Calcium 40 MG TABLET PO (07:44)
[2021-03-09] MEDS: Gabapentin 600 MG TABLET PO ×2 (07:44→20:46)
[2021-03-09] MEDS: 0.9 % Sodium Chloride Flush 3 ML SYRINGE IVFLUSH ×2 (07:44→15:26)
[2021-03-09] MEDS: polyethylene glycoL 3350 17 GM POWD.PACK PO (07:44)
[2021-03-09 07:52] LABS: Glucose, Whole Blood 181 mg/dL (60-115)
[2021-03-09] MEDS: Docusate Sodium 100 MG CAPSULE PO (07:59)
[2021-03-09] MEDS: oxyCODONE HCl Immed Release 5 MG TABLET 2.5 MG PO ×2 (08:26→15:36)
[2021-03-09] MEDS: Sodium Polystyrene Sulfon/Sorb 15 GM/60 ML ORAL.SUSP 45 GM PO (09:39)
[2021-03-09 11:33] LABS: Glucose, Whole Blood 192 mg/dL (60-115)
[2021-03-09 11:40] VITALS: BP 133/64; PULSE 80; RESP 16; TEMP 37.2; O2SAT 96
--- NOTE | 2021-03-09 12:07 | P.PNIM_ITS ---
Subjective Subjective Date of Service: 03/10/21 Interval History: The patient was seen and evaluated this morning Laying in bed, complaining of pain at the bernie side from the most recent surgery Passing more urine today Denies any fever, chills or shortness of breath No reported other overnight events. Systemic review: No fever, chills or weakness No chest pain, palpitation No shortness of breath or coughing No abdominal pain, nausea or vomiting Was not making urine Pain at the site of the surgery Physical Exam Vital Signs: Vital Signs: Last Vital Signs Temp 99.0 F 03/09/21 11:40 Pulse 80 03/09/21 11:40 Resp 16 03/09/21 11:40 BP 133/64 03/09/21 11:40 Pulse Ox 96 03/09/21 11:40 Body Mass Index 48.8 Const: Other: Constitutional : Alert, oriented, not in distress Neck : Normal inspection, Supple Cardiovascular : RRR, S1 S2, no lower extremity edema Respiratory : Good bilateral air entry, no crackles, wheezes or rhonchi Gastrointestinal: soft, lax, Normal bowel sounds, Non tender Skin : Warm/Dry, stump area erythema improved, tenderness at the site of bernie but no drainage noted Skeletal: below-knee amputation Neurological : Alert & oriented x3, No focal deficit Objective Data Current Medications Generic Name Dose Route Start Last Admin Trade Name Daronq PRN Reason Stop Dose Admin Acetaminophen 650 mg 03/08/21 04:53 03/08/21 16:46 Acetaminophen 325 Mg Tablet PO 650 mg Q6H PRN Administration Pain, Mild (Pain Scale 1-3) Aspirin 81 mg 03/08/21 09:00 03/09/21 07:44 Aspirin Enteric Coated 81 Mg Tablet. PO 81 mg DAILY TJ Administration Atorvastatin Calcium 40 mg 03/08/21 09:00 03/09/21 07:44 Atorvastatin Calcium 40 Mg Tablet PO 40 mg DAILY TJ Administration Docusate Sodium 100 mg 03/08/21 04:53 03/09/21 07:59 Docusate Sodium 100 Mg Capsule PO 100 mg DAILY PRN Administration Constipation Doxycycline Hyclate 100 mg 03/08/21 05:30 03/09/21 06:23 Doxycycline Hyclate 100 Mg Tablet PO 100 mg Q12H TJ Administration Enoxaparin Sodium 110 mg 03/08/21 05:30 03/09/21 06:23 Enoxaparin Sodium 120 Mg/0.8 Ml Syringe SUBCUT 110 mg Q12H TJ Administration Gabapentin 600 mg 03/08/21 04:53 03/09/21 07:44 Gabapentin 600 Mg Tablet PO 600 mg BID TJ Administration Insulin Human Lispro 0 unit 03/08/21 07:30 03/09/21 11:52 Insulin Lispro 100 Unit/Ml 3 Ml Vial SUBCUT 2 unit QIDACHS TJ Administration Protocol Magnesium Oxide 400 mg 03/08/21 04:53 03/09/21 07:44 Magnesium Oxide 400 Mg Tablet PO 400 mg BID TJ Administration Ondansetron HCl 4 mg 03/08/21 04:53 Ondansetron Hcl 4 Mg/2 Ml Vial IVPUSH Q8H PRN Nausea and Vomiting Oxycodone HCl 2.5 mg 03/08/21 10:40 03/09/21 08:26 Oxycodone Hcl Immed Release 5 Mg Tablet PO 2.5 mg Q6H PRN Administration Pain, Severe (Pain Scale 7-10) Polyethylene Glycol 17 gm 03/08/21 09:00 03/09/21 07:44 Polyethylene Glycol 3350 17 Gm Powd.Pack PO 17 gm DAILY TJ Administration Sodium Chloride 3 ml 03/08/21 04:53 03/09/21 07:44 0.9 % Sodium Chloride Flush 3 Ml Syringe IVFLUSH 3 ml QSHIFT [facility] Administration Vitamin D 25 mcg 03/08/21 09:00 03/09/21 07:44 Cholecalciferol (Vitamin D3) 25 Mcg Tablet PO 25 mcg DAILY TJ Administration Labs CBC & Chem 7: 03/10/21 06:16 03/10/21 06:16 Labs: Laboratory Results - last 24 hr 03/08/21 03/08/21 03/09/21 16:37 20:23 05:16 WBC 6.2 RBC 3.24 L Hgb 9.9 L Hct 30.3 L MCV 93.5 MCH 30.6 MCHC 32.7 RDW 13.1 Plt Count 281 MPV 11.0 Absolute Nucleated RBC 0.000 Nucleated RBC % (auto) 0.0 Sodium Potassium Chloride Carbon Dioxide Anion Gap BUN Creatinine Estim Creat Clear Calc Estimated GFR POC Glucose 171 H 204 H Random Glucose Calcium 03/09/21 03/09/21 03/09/21 05:16 07:20 11:25 WBC RBC Hgb Hct MCV MCH MCHC RDW Plt Count MPV Absolute Nucleated RBC Nucleated RBC % (auto) Sodium 138 Potassium 5.9 H D Chloride 103 Carbon Dioxide 29 Anion Gap 12 BUN 20 H Creatinine 0.97 Estim Creat Clear Calc 84.1 Estimated GFR > 60 POC Glucose 181 H 192 H Random Glucose 207 H D Calcium 9.9 D Microbiology Microbiology Results: Microbiology 03/07/21 18:14 Blood Culture - Preliminary Blood - Venous No growth after 24 hours. 03/07/21 18:14 Blood Culture - Preliminary Blood - Venous No growth after 24 hours. Quality Stroke Does the patient have a stroke diagnosis?: No VTE Prior VTE?: No VTE Risk Level:: Medical - moderate - high VTE Device Contraindication: Treatment Not Indicated VTE Drug Contraindication: N/A - Med Ordered Assessment and Plan (1) CIRILO (acute kidney injury): Status: Acute Assessment and Plan: This is a 61-year-old male with past medical history of diabetes status post bilateral BKA presents to the hospital with complaints of decreased urinary output. Found to have CIRILO # CIRILO secondary to poor oral intake of fluids has not been drinking enough fluids for the past 1 week Discontinue IV fluid hold nephrotoxic medications follow BMP # hyperkalemia Potassium level above 5 Give Kayexalate Monitor BMP # recent cellulitis Improving continue doxycycline consult general surgery for wound check and bernie removal # depression, mood disturbance Patient reports depressed mood and feeling lonely He is not eating well at home and not drinking enough water To get care team evaluation # diabetes Hold metformin start low-dose sliding scales diabetic diet # diabetic neuropathy continue gabapentin # hypertension stable will hold lisinopril in the setting of CIRILO # history of PE continue Eliquis # hyperlipidemia continue statin DVT prophylaxis: Eliquis
--- NOTE | 2021-03-09 13:16 | MHC.CM.PN ---
PATIENT IS A RE-ADMIT HE IS ACTIVE WITH [facility] FOR RN SKILLS AND HOME HEALTH AID SERVICES. HE HAS A POWER CHAIR, BI-PAP, HAND RAILS IN BATHROOM AND SHOWER, AND A HOSPITAL BED WITH RAILS. PATIENT IS HOPING TO RETURN HOME WITH RESUMPTION OF SERVICES. IMM 03/09 IN CHART. PATIENT VERBALIZED UNDERSTANDING OF IMM DELIVERY, AND GIVES PERMISSION FOR THIS ROLL CLEANER TO SIGN ON HIS BEHALF AND LEAVE BEDSDIE (PATIENT CURRENTLY WEARING BI-PAP AND NOT OPENING HIS EYES DURING ASSESSMENT).
[2021-03-09 15:30] VITALS: BP 142/72; PULSE 78; RESP 20; TEMP 36.3; O2SAT 94
[2021-03-09 15:55] LABS: Anion Gap 13 (12-20); Blood Urea Nitrogen 18 mg/dL (9-16); Calcium 9.5 mg/dL (8.4-10.2); Carbon Dioxide 29 mmol/L (22-29); Chloride 100 mmol/L (96-108); Creatinine Clr Calc Pharmacy 82.4; Estimated Glomerular Filt Rate > 60; Glucose Random 199 mg/dL (60-115); Potassium 4.7 mmol/L (3.3-5.1); Sodium 137 mmol/L (135-145)
[2021-03-09 16:13] LABS: Glucose, Whole Blood 188 mg/dL (60-115)
--- NOTE | 2021-03-09 16:48 | MHC.CARE ---
CARE team attempted to meet with pt for consult. Pt sleeping and did not awaken to verbal prompting. CARE team will follow up this evening or tomorrow.
[2021-03-09 19:14] VITALS: BP 136/75; PULSE 79; RESP 20; TEMP 36.3; O2SAT 93
[2021-03-09 20:43] LABS: Glucose, Whole Blood 254 mg/dL (60-115)
[2021-03-09 23:11] VITALS: BP 135/69; PULSE 78; RESP 20; TEMP 37; O2SAT 99
[2021-03-10] MEDS: 0.9 % Sodium Chloride Flush 3 ML SYRINGE IVFLUSH ×2 (00:47→07:39)
[2021-03-10 04:00] VITALS: BP 127/72; PULSE 70; RESP 20; TEMP 36.2; O2SAT 98
[2021-03-10] MEDS: Enoxaparin Sodium 120 MG/0.8 ML SYRINGE 110 MG SUBCUT (06:19)
[2021-03-10 06:52] LABS: Hematocrit 29.4 % (42-52); Hemoglobin 9.9 g/dl (14.0-18.0); Mean Corpuscular HGB Conc 33.7 g/dl (31.0-36.0); Mean Corpuscular Hemoglobin 30.8 pg (27.0-33.0); Mean Corpuscular Volume 91.6 fL (80-98); Mean Platelet Volume 10.7 fL (9.4-12.4); Platelet Count 276 X10*3/uL (160-400); Red Blood Count 3.21 X10*6/uL (4.60-5.80); Red Cell Distribution Width 12.9 % (11.0-16.0); White Blood Count 6.1 X10*3/uL (4.8-10.8)
[2021-03-10 07:07] VITALS: BP 123/68; PULSE 73; RESP 18; TEMP 36.1; O2SAT 100
[2021-03-10 07:27] LABS: Glucose, Whole Blood 203 mg/dL (60-115)
[2021-03-10 07:28] LABS: Anion Gap 14 (12-20); Blood Urea Nitrogen 17 mg/dL (9-16); Carbon Dioxide 26 mmol/L (22-29); Chloride 101 mmol/L (96-108); Creatinine Clr Calc Pharmacy 88.7; Estimated Glomerular Filt Rate > 60; Glucose Random 240 mg/dL (60-115); Potassium 4.7 mmol/L (3.3-5.1); Sodium 136 mmol/L (135-145)
[2021-03-10] MEDS: Gabapentin 600 MG TABLET PO (07:38)
[2021-03-10] MEDS: polyethylene glycoL 3350 17 GM POWD.PACK PO (07:38)
[2021-03-10] MEDS: Cholecalciferol (Vitamin D3) 25 MCG TABLET PO (07:38)
[2021-03-10] MEDS: Magnesium Oxide 400 MG TABLET PO (07:38)
[2021-03-10] MEDS: Aspirin Enteric Coated 81 MG TABLET.DR PO (07:38)
[2021-03-10] MEDS: Atorvastatin Calcium 40 MG TABLET PO (07:39)
[2021-03-10] MEDS: Insulin Lispro 100 UNIT/ML 3 ML VIAL SUBCUT ×2 (07:39→12:22)
--- NOTE | 2021-03-10 11:13 | MHC.CM.PN ---
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 BLS TRANSPORT WILL BE ARRANGED VIA [facility]
--- NOTE | 2021-03-10 11:20 | PM.DS ---
DS: Providers Provider Date of Service: 03/10/21 Date of admission: 03/07/21 23:49 Primary care physician: Virginie Liao MD Consults: 03/08/21 04:53 Consult to General Surgery Routine Consulting Provider: Oren Blackburn Reason for consultation: sustures in place from recent BKA Has provider been notified: No 03/08/21 10:40 Consult to Care Team Routine Comment: Reason for consultation: Depression, decrease PO intake for your eval 03/09/21 12:07 Consult to Vascular Surgery Routine Consulting Provider: Cameron Figueroa Reason for consultation: F\U on wound post cellulitis, Quapaw removal from surgery ? DS: Diagnosis Discharge Diagnosis (1) CIRILO (acute kidney injury): Status: Acute (2) Cellulitis: Status: Acute (3) Hyperkalemia: Status: Acute DS: Medications Discharge Medications Home Medications: Home Medications Medication Instructions Recorded Confirmed Victoza 3-Chet 1.8 mg SUBCUT DAILY 07/17/20 03/07/21 aspirin 81 mg PO DAILY 07/17/20 03/07/21 gabapentin 600 mg PO BID 07/17/20 03/07/21 lisinopril 5 mg PO DAILY 07/17/20 03/07/21 metformin 1,000 mg PO BID 07/17/20 03/07/21 cholecalciferol (vitamin D3) 25 mcg PO DAILY 09/04/20 03/07/21 fluoxetine 20 mg capsule 20 mg PO DAILY 10/01/20 03/07/21 atorvastatin 40 mg PO DAILY 10/09/20 03/07/21 albuterol sulfate 90 mcg/actuation 2 puff INHALATION Q4-6H PRN 12/17/20 03/07/21 aerosol inhaler Tresiba FlexTouch U-100 50 unit SUBCUT QPM 12/23/20 02/22/21 Tresiba FlexTouch U-100 80 unit SUBCUT QAM 12/23/20 02/22/21 enoxaparin 110 mg SUBCUT BID 02/22/21 03/07/21 magnesium oxide 400 mg PO BID 03/07/21 03/07/21 Previous Rx's Medication Instructions Recorded polyethylene glycol 3350 17 g PO DAILY #30 ea 01/07/21 doxycycline monohydrate 100 mg PO BID #14 cap 07/06/21 DS: Summary Hospital Course Hospital Course: Admission note HPI This is a 61-year-old male with past medical history of diabetes, hypertension, MGUS, peripheral neuropathy, PVD, status post bilateral BKA, sleep apnea, who presents to the hospital with complaints of not being able to urinate for the past 2 days. Patient reports he is also having right sided pain with movement that has been chronic since his most recent admission in February and a fall 4-5 weeks ago, he is also complaining that there are still sutures attached to his wound from his recent BKA in December. Of note patient was discharged from the hospital on February 25 after being managed for cellulitis of the left BKA wound. Patient was sent home on doxycycline, reports that he has 3 more days of treatment. Patient reports that he has not been eating or drinking well, he does any been drinking of water. He is not sure why he is not drinking water but reports that for the past 2 days he has not had any home health aide. Denies any fever or chills. When asked about his left amputation site and recent cellulitis reports that it is still very tender specifically to touch but the redness, inflammation, and swelling has significantly improved and he does not see a being worsened. He reports that the right ribcage pain is mostly with movement, has not changed, and is managed well with his pain medications at home. The only thing that is concerning to him is his inability to urinate and he reports that he does not drink enough water specially in the past 2 days. Review of system otherwise negative On arrival to the ED patient hemodynamically stable with no significant abnormal vitals Labs are significant for WBC of 11.7, hemoglobin of 10.9, ESR of 95, BUN of 40, creatinine of 1.74 with a baseline around 1.01, 95 which has improved from previous, CRP of 6.33 which has also improved from September which was 15.88, UA negative Bladder scan showed patient to have about 300 cc of urine in his bladder Hospital course For treatment of acute kidney injury. Nephrotoxic medications held and he was started on IV fluid with good response as the kidney function improved back to normal baseline. He was noted to have hyperkalemia with potassium level above 5.2. Received Kayexalate with good response as repeated potassium was 4.7. He continued his treatment for cellulitis with oral doxycycline. Evaluated by surgical team who preferred Dr. Figueroa from vascular surgery to remove the bernie. He will follow-up with Dr. Figueroa in the office for that and continue doxycycline at time of discharge. Time Spent with Patient Time attestation: Total time spent providing and/or coordinating discharge services: Discharge coordination time: Greater than 30 minutes Quality: Stroke Does the patient have a stroke diagnosis?: No Physical Exam Vital Signs: Vital Signs: Last Vital Signs Temp 97 F 03/10/21 07:07 Pulse 73 03/10/21 07:07 Resp 18 03/10/21 07:07 BP 123/68 03/10/21 07:07 Pulse Ox 100 03/10/21 07:07 Body Mass Index 48.8 Const: Other: Constitutional : Alert, oriented, not in distress Neck : Normal inspection, Supple Cardiovascular : RRR, S1 S2, no lower extremity edema Respiratory : Good bilateral air entry, no crackles, wheezes or rhonchi Gastrointestinal: soft, lax, Normal bowel sounds, Non tender Skin : Warm/Dry, stump area erythema improved, no tenderness or drainage Skeletal: Bilateral below-knee amputation Neurological : Alert & oriented x3, No focal deficit DS: Data Data Completed and Pending Completed studies during hospitalization [Text1]: Procedures Assistance with Respiratory Ventilation, Less than 24 Consecutive Hours, Continuous Positive Airway Pressure (10/10/20) Detachment at Left 1st Toe, Complete, Open Approach (12/23/20) Detachment at Left Lower Leg, Mid, Open Approach (12/23/20) Detachment at Right 1st Toe, Complete, Open Approach (09/05/20) Detachment at Right 1st Toe, High, Open Approach (09/05/20) Detachment at Right Foot, Partial 1st Ray, Open Approach (10/10/20) Detachment at Right Foot, Partial 2nd Ray, Open Approach (10/10/20) Detachment at Right Foot, Partial 3rd Ray, Open Approach (10/10/20) Detachment at Right Foot, Partial 4th Ray, Open Approach (10/10/20) Detachment at Right Foot, Partial 5th Ray, Open Approach (10/10/20) Detachment at Right Lower Leg, Mid, Open Approach (10/10/20) Dilation of Right Posterior Tibial Artery, Percutaneous Approach (09/05/20) Fluoroscopy of Aorta and Bilateral Lower Extremity Arteries (12/23/20) Insertion of Infusion Device into Superior Vena Cava, Percutaneous Approach (09/05/20) Transfusion of Nonautologous Platelets into Peripheral Vein, Percutaneous Approach (09/05/20) Transfusion of Nonautologous Red Blood Cells into Peripheral Vein, Percutaneous Approach (12/23/20) Ultrasonography of Superior Vena Cava, Guidance (09/05/20) Labs on day of discharge: Laboratory Results - last 24 hr 03/09/21 03/09/21 03/09/21 11:25 14:54 16:08 WBC RBC Hgb Hct MCV MCH MCHC RDW Plt Count MPV Absolute Nucleated RBC Nucleated RBC % (auto) Sodium 137 Potassium 4.7 D Chloride 100 Carbon Dioxide 29 Anion Gap 13 BUN 18 H Creatinine 0.99 Estim Creat Clear Calc 82.4 Estimated GFR > 60 POC Glucose 192 H 188 H Random Glucose 199 H Calcium 9.5 03/09/21 03/10/21 03/10/21 20:39 06:16 06:16 WBC 6.1 RBC 3.21 L Hgb 9.9 L Hct 29.4 L MCV 91.6 MCH 30.8 MCHC 33.7 RDW 12.9 Plt Count 276 MPV 10.7 Absolute Nucleated RBC 0.000 Nucleated RBC % (auto) 0.0 Sodium 136 Potassium 4.7 Chloride 101 Carbon Dioxide 26 Anion Gap 14 BUN 17 H Creatinine 0.92 Estim Creat Clear Calc 88.7 Estimated GFR > 60 POC Glucose 254 H Random Glucose 240 H Calcium 9.0 03/10/21 07:07 WBC RBC Hgb Hct MCV MCH MCHC RDW Plt Count MPV Absolute Nucleated RBC Nucleated RBC % (auto) Sodium Potassium Chloride Carbon Dioxide Anion Gap BUN Creatinine Estim Creat Clear Calc Estimated GFR POC Glucose 203 H Random Glucose Calcium Preliminary micro results at discharge 03/07/21 18:14 Blood Culture - Preliminary Blood - Venous No growth after 48 hours. 03/07/21 18:14 Blood Culture - Preliminary Blood - Venous No growth after 48 hours. Imaging Knee x-ray, chest x-ray: Radiologist's impression: ITS Impressions Chest CT 03/07/21 17:32 IMPRESSION: There is no acute abnormality of the chest. There is no rib fracture. Knee X-Ray 03/07/21 19:32 IMPRESSION: Possible soft tissue swelling in the remaining left lower leg. No x-ray evidence for osteomyelitis. Discharge Plan Discharge Patient Disposition: Home Health Service Discharge Diagnosis: Acute kidney injury Hyperkalemia Cellulitis Referrals: [facility] [Outside] - 1 Week Virginie Liao MD [Primary Care Provider] - 1 Week Discharge Medications: Continued atorvastatin 40 mg tablet 40 mg PO DAILY RF: 0 enoxaparin 120 mg/0.8 mL syringe 110 mg subcut BID RF: 0 doxycycline monohydrate 100 mg capsule 100 mg PO BID Qty: 14 RF: 0 gabapentin 600 mg tablet 600 mg PO BID RF: 0 aspirin 81 mg tablet,delayed release (DR/EC) 81 mg PO DAILY RF: 0 metformin 1,000 mg tablet 1,000 mg PO BID RF: 0 lisinopril 5 mg tablet 5 mg PO DAILY RF: 0 Victoza 3-Chet 0.6 mg/0.1 mL (18 mg/3 mL) pen injector 1.8 mg subcut DAILY RF: 0 cholecalciferol (vitamin D3) 25 mcg (1,000 unit) tablet 25 mcg PO DAILY RF: 0 Tresiba FlexTouch U-100 100 unit/mL (3 mL) insulin pen 50 unit subcut QPM RF: 0 Tresiba FlexTouch U-100 100 unit/mL (3 mL) insulin pen 80 unit subcut QAM RF: 0 polyethylene glycol 3350 17 gram Powder In Packet 17 g PO DAILY Qty: 30 RF: 0 magnesium oxide 400 mg (241.3 mg magnesium) tablet 400 mg PO BID RF: 0 Discharge Orders: Discharge Order (Routine); Ordered 03/10/21 Ordered By: Cristhian Gatica Diet: advance to usual diet Activity on Discharge: As tolerated Stand Alone Forms: Patient Portal Discharge page Care Plan Goals: Read below Health Concerns: Read below Plan of Treatment: You were admitted to the hospital for acute kidney injury and elevated potassium level. Responded well to IV fluids and returned back to normal baseline. Your skin infection has improved significantly as well. Assessment: Continue doxycycline at home To follow-up with Dr. Figueroa office for bernie removal
[2021-03-10 11:24] VITALS: BP 162/82; PULSE 84; RESP 20; TEMP 36.6; O2SAT 96
--- NOTE | 2021-03-10 11:27 | MHC.CARE ---
CARE team rec consult for pt on the medical floor due to concerns that pt reported feeling depressed. Medical floor contacted CARE to notify that pt was being discharged and asked that CARE see pt. T/w arrived to med floor to meet with pt. He was alert and oriented and resting calmly in bed. Pt was watching TV and was aware that he was waiting to speak to a Behavioral Health regarding a referral. Pt discussed how he feels that his ongoing medical issues have caused him to feel depressive episodes. He recently had his second leg amputated which has causes him to feel more depressed. He expressed how he feels support from his living arrangement ([place]) and feels a sense of friendship from his peers there. He also has multiple in home services such as [facility], [employer], OT, PT and other [facility] resources and [facility] services. Pt stated he has been [facility] to [facility] however he is not seeking telephonic or telehealth visits which is the only form available there currently. Pt is able to get transportation and has insurance that will cover outside agencies and feels he would prefer to seek outside referrals in order to have in person visits. Pt described his narcolepsy as an obstacle which he responds well to in person sessions. Pt said he had been at [facility] for years and he felt it was helpful. Pt was appreciative of the offer to refer him to [facility] as it is closer to where he lives. T/w placed a call to [facility] in [place] and this site is not accepting in person visits currently. T/w made referral to [place] site of [facility] and the site will call pt with an intake appt when available.
[2021-03-10 11:38] LABS: Glucose, Whole Blood 250 mg/dL (60-115)
== END 2021-03-10 13:30 | disposition home health service (06) | DRG 565 ==
LOC: HO.ED 23:52 → HO.EDOVER 23:58 → HO.S3 03-08 07:59
PROVIDERS: Nurse Practitioner Family; Admitting Provider Internal Medicine; Emergency Provider Student in an Organized Health Care Education/Training Program; PCP Internal Medicine; Visit Provider Student in an Organized Health Care Education/Training Program
DX: T87.44 Infection of amputation stump, left lower extremity (principal); N17.9 Acute kidney failure, unspecified; L03.116 Cellulitis of left lower limb; E11.42 Type 2 diabetes mellitus with diabetic polyneuropathy; I25.10 Atherosclerotic heart disease of native coronary artery without angina pectoris; G47.30 Sleep apnea, unspecified; F32.9 Major depressive disorder, single episode, unspecified; R33.9 Retention of urine, unspecified; Z20.822 Contact with and (suspected) exposure to COVID-19; E87.5 Hyperkalemia; E78.5 Hyperlipidemia, unspecified; Z95.1 Presence of aortocoronary bypass graft; Z86.711 Personal history of pulmonary embolism; Z89.512 Acquired absence of left leg below knee; Z89.511 Acquired absence of right leg below knee; Z87.440 Personal history of urinary (tract) infections; Z79.4 Long term (current) use of insulin; Z79.82 Long term (current) use of aspirin; Z79.899 Other long term (current) drug therapy
CPT/HCPCS: 36415; 71250; 73560; 80048; 80076; 81003; 82947; 83605; 83690; 83735; 84484; 85025; 85027; 85610; 85652; 85730; 86140; 87040; 87635; 93005; 94660; 99285; J0696; J1650

== ENCOUNTER → 2021-03-20 11:00 | Outpatient (BNVA) | payer OTHER, SELFPAY | PROVIDERS: PCP Internal Medicine; Visit Provider Surgery Vascular Surgery | DX: Z89.512 Acquired absence of left leg below knee (principal); Z89.511 Acquired absence of right leg below knee | CPT/HCPCS: 99212 ==

== ENCOUNTER → 2021-03-28 08:35 | Outpatient (BNVA) | payer OTHER, SELFPAY | PROVIDERS: Visit Provider Nurse Practitioner ==

== ENCOUNTER 2021-04-10 10:03 | Inpatient (IN) | payer OTHER, SELFPAY ==
[2021-04-10 10:21] VITALS: BP 118/55; BP 118/70; PULSE 83; PULSE 88; RESP 18; TEMP 36.9; O2SAT 98; O2SAT 99; BMI 32.1
--- NOTE | 2021-04-10 11:47 | ED.GENADULT ---
HPI - General Adult General Chief complaint: Wound/Laceration Stated complaint: left leg infection Time Seen by Provider: 04/10/21 11:11 Source: patient Mode of arrival: wheelchair Limitations: no limitations History of Present Illness HPI narrative: 61-year-old male with past medical history of bilateral BKA and MRSA, presents from his primary care who sent him here because osteomyelitis was seen on an MRI done at [facility] yesterday. Patient had a left [id number] amputation in December of 2020. He was admitted in early February for cellulitis of his left lower extremity. Patient states the last 2 days the cellulitis has returned and his left osteo stump is red, warm, and painful. Patient has been taking Bactrim for the last 2 days. No fevers. No nausea, vomiting, abdominal pain, chest pain, shortness of breath. Patient has an allergy to vancomycin. Related Data Home Medications Medication Instructions Recorded Confirmed aspirin 81 mg tablet,delayed 81 mg PO DAILY 07/17/20 04/10/21 release gabapentin 600 mg tablet 600 mg PO BID 07/17/20 04/10/21 liraglutide 0.6 mg/0.1 mL (18 mg/3 1.8 mg SUBCUT DAILY 07/17/20 04/10/21 mL) subcutaneous pen injector (Victoza 3-Chet) lisinopril 5 mg tablet 5 mg PO DAILY 07/17/20 04/10/21 metformin 1,000 mg tablet 1,000 mg PO BID 07/17/20 04/10/21 cholecalciferol (vitamin D3) 25 25 mcg PO DAILY 09/04/20 04/10/21 mcg (1,000 unit) tablet atorvastatin 40 mg tablet 40 mg PO BEDTIME 10/09/20 04/10/21 insulin degludec 100 unit/mL (3 55 unit SUBCUT BEDTIME 12/23/20 04/10/21 mL) subcutaneous pen (Tresiba FlexTouch U-100 insulin) insulin degludec 100 unit/mL (3 85 unit SUBCUT DAILY 12/23/20 04/10/21 mL) subcutaneous pen (Tresiba FlexTouch U-100 insulin) magnesium oxide 400 mg (241.3 mg 400 mg PO BID 03/07/21 04/10/21 magnesium) tablet lancets 28 gauge (FreeStyle #100 ea 03/20/21 Lancets) albuterol sulfate 90 mcg/actuation 2 puff INHALATION Q4-6H PRN 04/10/21 04/10/21 aerosol inhaler apixaban 5 mg tablet (Eliquis) 1 tab PO Q12H 04/10/21 04/10/21 sulfamethoxazole 800 1 tab PO BID 04/10/21 04/10/21 mg-trimethoprim 160 mg tablet Previous Rx's Medication Instructions Recorded polyethylene glycol 3350 17 gram 17 g PO DAILY #30 ea 01/07/21 oral powder packet Allergies Allergy/AdvReac Type Severity Reaction Status Date / Time vancomycin AdvReac Severe thrombocyto Verified 03/28/21 08:36 penia Review of Systems Review of Systems: Constitutional : No Weight loss, No Fever, No Chills, No Night Sweats,No Fatigue, No Malaise ENT/Mouth : No Hearing loss, No Ear Pain, No Nasal Congestion, NoSinus Pain, No Hoarseness, No sore throat, No Rhinorrhea, NoSwallowing Difficulty Eyes: No Eye Pain, No Swelling, No Redness, No Foreign Body, NoDischarge, No Vision Changes Cardiovascular : No Chest Pain, No SOB, No Dyspnea on Exertion, NoOrthopnea, No Edema, No Palpitations Respiratory : No Cough, No Sputum, No Wheezing, No Smoke Exposure, No Dyspnea Gastrointestinal : No Nausea, No Vomiting, No Diarrhea, NoConstipation, No abdominal Pain, No Hematochezia, No Melena Genitourinary : no irregular bleeding, No Dysuria, No UrinaryFrequency, No Hematuria, No Urinary Incontinence, No Urgency, No FlankPain, No Urinary Flow Changes, No Hesitancy Musculoskeletal : bilateral BKA Skin : redness, swelling, warmth around stump site left BKA Neuro : No Weakness, No Numbness, No Paresthesias, No Loss ofConsciousness, No Dizziness, No Headache Psych :, , No Depression, No SI/HI/AH/VH, No Social Issues, Endocrine : No Polyuria, No Polydipsia, No Temperature Intolerance [facility] Past Medical History Medical History Amputated great toe of right foot Back pain Diabetic foot infection Drug-induced thrombocytopenia Hyperlipidemia Hypertension IDDM (insulin dependent diabetes mellitus) MGUS (monoclonal gammopathy of unknown significance) Neck pain Peripheral neuropathy Psychiatric diagnosis PVD (peripheral vascular disease) Sleep apnea Surgical History H/O abdominoplasty H/O colonoscopy Hx of angioplasty Hx of appendectomy Hx of foot surgery Hx of tonsillectomy Hx of umbilical hernia repair S/P anal fissurectomy S/P BKA (below knee amputation) bilateral Status post below-knee amputation Family History Family History Other No history of heart disease Social History Social History Household Members: None Housing: Apartment Do you presently have visiting nurse or other home services: Yes (vna, director of physical therapy, pole incisor operator, mow) Alcohol intake: never Patient Tobacco Use Status: Former Tobacco user Second Hand Smoke Exposure: No Advance Directives: Yes Advance Directives on File: Yes Advance Directives Date on File: 09/27/20 service: Yes Current occupational status: unemployed Physical Exam Vital Signs: Vital Signs: Last Vital Signs Temp 98.5 F 04/10/21 10:21 Pulse 77 04/10/21 12:24 Resp 16 04/10/21 12:24 BP 106/53 L 04/10/21 12:24 Pulse Ox 97 04/10/21 12:24 Body Mass Index 32.1 Const: General: cooperative, no acute distress, well developed, alert and awake Nutritional Appearance: well nourished Orientation/consciousness: patient oriented x3 Limitations: no limitations HENMT: Head: Yes normal to inspection, Yes normocephalic and Yes atraumatic Ears: hearing grossly normal bilaterally, external ears normal, TM's normal bilaterally and EAC's normal General nose exam: Normal external nose present Face and sinus: Yes normal facial exam and Yes sinuses nontender Mouth: Normal oral and palatal mucosa present Throat: Yes posterior oropharynx normal Eyes: Conjunctivae: conjunctivae normal Pupils: Equal, round and reactive pupils present EOM: EOMs intact bilaterally Neck: Neck: Yes full ROM, Yes no lymphadenopathy and Yes supple Resp: Effort & Inspection: normal respiratory effort and able to speak in complete sentences Auscultation: clear to auscultation bilaterally, no crackles, no rales, no rhonchi and no wheezes Cardio: Rate: regular rate Rhythm: regular rhythm Heart sounds: S1 normal heart sound present and S2 normal heart sound present GI: Inspection: Yes normal to inspection Palpation (GI): Soft to palpation, nontender, no guarding and not rigid Percussion: Yes normal to percussion Auscultation: normal bowel sounds Skin: Other: Area of redness, swelling, warmth, surrounding left osteo stump. Neuro: General: patient oriented x3, tone normal and moves all extremities Cranial nerves: Yes Equal, round and reactive pupils present Extrem: Other: Bilateral below knee amputations Psych: Appearance: grossly normal Affect: normal affect Attitude: cooperative Thought process: Normal thought process present Course Course Course Narrative: 61-year-old diabetic male with bilateral BKA presents for at 2 days of redness swelling warmth on his lower left posterior stump, and an MRI diagnosing left lower extremity with osteomyelitis. Patient states he had gotten MRI at [facility], I spoke to nurse at [facility] who said they had faxed the MRI over, we have not obtained that yet. Patient has been feeling well other than the redness swelling and warmth of his left lower stump. We will get blood cultures, lactic, labs, started patient on Zosyn. Consulted pharmacy, they will put in the order for daptomycin once they determine patient's renal function. Patient has allergy to Vanco with thrombocytopenia. Patient has a history of MRSA. Patient has a lactate of 2.3. No elevated white blood cell count. Sodium of 127. COVID negative, urine negative. Creatinine 1.3, pharmacist put in order for daptomycin. Will admit patient MRI faxed here states findings highly suspicious for osteomyelitis and cellulitis with a small fluid collection as described suspicious for abscess at the distal aspect of the stump Left tibia. [place] [facility] Medical Decision Making Lab Data Result diagrams: 04/10/21 12:37 04/10/21 12:37 Labs: Lab Results 04/10/21 04/10/21 04/10/21 Range/Units 12:37 12:37 12:37 WBC 9.0 (4.8-10.8) X10*3/uL RBC 3.65 L (4.60-5.80) X10*6/uL Hgb 11.4 L (14.0-18.0) g/dl Hct 32.2 L (42-52) % MCV 88.2 (80-98) fL MCH 31.2 (27.0-33.0) pg MCHC 35.4 (31.0-36.0) g/dl RDW 12.3 (11.0-16.0) % Plt Count 293 (160-400) X10*3/uL MPV 9.7 (9.4-12.4) fL Immature Gran % (Auto) 0.9 H (0.0-0.4) % Neut % (Auto) 53.2 (45-73) % Lymph % (Auto) 33.3 (20-40) % [place] % (Auto) 7.9 (2-11) % Eos % (Auto) 4.3 H (0-4) % Baso % (Auto) 0.4 (0-2) % Lymph # (Auto) 3.0 (1.2-4.9) X10*3/uL [place] # (Auto) 0.7 (0.1-1.2) X10*3/uL Eos # (Auto) 0.4 (0.0-0.4) X10*3/uL Baso # (Auto) 0.0 (0.0-0.2) X10*3/uL Abs Immat Gran (auto) 0.08 H (0.00-0.03) X10*3/uL Absolute Neuts (auto) 4.8 (2.0-8.3) X10*3/uL Absolute Nucleated RBC 0.000 (0.0-0.012) X10*3/uL Nucleated RBC % (auto) 0.0 (0.0-0.2) /100WBC Sodium 127 L (135-145) mmol/L Potassium 4.8 (3.3-5.1) mmol/L Chloride 96 (96-108) mmol/L Carbon Dioxide 21 L (22-29) mmol/L Anion Gap 15 (12-20) BUN 19 H (9-16) mg/dL Creatinine 1.30 (0.5-1.4) mg/dL Estim Creat Clear Calc 78.8 Estimated GFR 56 Random Glucose 97 D (60-115) mg/dL Lactic Acid 2.3 H* (0.5-2.0) mmol/L Calcium 9.0 (8.4-10.2) mg/dL Total Bilirubin 0.2 (0.0-1.0) mg/dL AST 20 (5-37) U/L ALT 13 (0-40) U/L Alkaline Phosphatase 109 D (39-117) U/L Total Protein 6.9 (6.5-8.0) g/dL Albumin 3.7 (3.5-5.0) g/dL Urine Color Urine Appearance Urine pH (5.0-8.0) Ur Specific [place] (1.005-1.025) Urine Protein (NEG-TRACE) MG/DL Urine Glucose (UA) (NEG) MG/DL Urine Ketones (NEG) MG/DL Urine Blood (NEG) Urine Nitrite (NEG) Ur Leukocyte Esterase (NEG) COVID-19 (JOSE) (Negative) COVID-19 Clin Com 04/10/21 04/10/21 Range/Units 12:45 12:45 WBC (4.8-10.8) X10*3/uL RBC (4.60-5.80) X10*6/uL Hgb (14.0-18.0) g/dl Hct (42-52) % MCV (80-98) fL MCH (27.0-33.0) pg MCHC (31.0-36.0) g/dl RDW (11.0-16.0) % Plt Count (160-400) X10*3/uL MPV (9.4-12.4) fL Immature Gran % (Auto) (0.0-0.4) % Neut % (Auto) (45-73) % Lymph % (Auto) (20-40) % [place] % (Auto) (2-11) % Eos % (Auto) (0-4) % Baso % (Auto) (0-2) % Lymph # (Auto) (1.2-4.9) X10*3/uL [place] # (Auto) (0.1-1.2) X10*3/uL Eos # (Auto) (0.0-0.4) X10*3/uL Baso # (Auto) (0.0-0.2) X10*3/uL Abs Immat Gran (auto) (0.00-0.03) X10*3/uL Absolute Neuts (auto) (2.0-8.3) X10*3/uL Absolute Nucleated RBC (0.0-0.012) X10*3/uL Nucleated RBC % (auto) (0.0-0.2) /100WBC Sodium (135-145) mmol/L Potassium (3.3-5.1) mmol/L Chloride (96-108) mmol/L Carbon Dioxide (22-29) mmol/L Anion Gap (12-20) BUN (9-16) mg/dL Creatinine (0.5-1.4) mg/dL Estim Creat Clear Calc Estimated GFR Random Glucose (60-115) mg/dL Lactic Acid (0.5-2.0) mmol/L Calcium (8.4-10.2) mg/dL Total Bilirubin (0.0-1.0) mg/dL AST (5-37) U/L ALT (0-40) U/L Alkaline Phosphatase (39-117) U/L Total Protein (6.5-8.0) g/dL Albumin (3.5-5.0) g/dL Urine Color YELLOW Urine Appearance CLEAR Urine pH 6.0 (5.0-8.0) Ur Specific [place] <= 1.005 (1.005-1.025) Urine Protein NEG (NEG-TRACE) MG/DL Urine Glucose (UA) NEG (NEG) MG/DL Urine Ketones NEG (NEG) MG/DL Urine Blood NEG (NEG) Urine Nitrite NEG (NEG) Ur Leukocyte Esterase NEG (NEG) COVID-19 (JOSE) Negative (Negative) COVID-19 Clin Com See Note Discharge Plan Discharge Clinical Impression: Hyponatremia Osteomyelitis Qualifiers: Osteomyelitis type: unspecified type Osteomyelitis location: tibia Laterality: left Qualified Code(s): M86.9 - Osteomyelitis, unspecified Patient Disposition: Admitted As Inpatient
[2021-04-10 12:24] VITALS: BP 106/53; PULSE 77; RESP 16; O2SAT 97
[2021-04-10 12:45] LABS: MANUAL DIFF FLAG NO
[2021-04-10 12:47] LABS: Basophils Percent Auto 0.4 % (0-2); Eosinophils Absolute Auto 0.4 X10*3/uL (0.0-0.4); Eosinophils Percent Auto 4.3 % (0-4); Hematocrit 32.2 % (42-52); Hemoglobin 11.4 g/dl (14.0-18.0); Imm Gran Abs Auto 0.08 X10*3/uL (0.00-0.03); Imm Gran Pct Auto 0.9 % (0.0-0.4); Lymphocytes Percent Auto 33.3 % (20-40); Mean Corpuscular HGB Conc 35.4 g/dl (31.0-36.0); Mean Corpuscular Hemoglobin 31.2 pg (27.0-33.0); Mean Corpuscular Volume 88.2 fL (80-98); Mean Platelet Volume 9.7 fL (9.4-12.4); Monocytes Absolute Auto 0.7 X10*3/uL (0.1-1.2); Monocytes Percent Auto 7.9 % (2-11); Neutrophils Absolute Auto 4.8 X10*3/uL (2.0-8.3); Neutrophils Percent Auto 53.2 % (45-73); Platelet Count 293 X10*3/uL (160-400); Red Blood Count 3.65 X10*6/uL (4.60-5.80); Red Cell Distribution Width 12.3 % (11.0-16.0)
[2021-04-10 13:01] LABS: Glucose Urine UA NEG (NEG); Leukocyte Esterase Urine NEG (NEG); Nitrite Urine NEG (NEG); Specific Gravity - Urine <= 1.005 (1.005-1.025); Urine Blood NEG (NEG); Urine Ketones NEG (NEG); Urine Protein NEG (NEG-TRACE)
[2021-04-10 13:02] LABS: Appearance Urine CLEAR; Color Urine YELLOW
[2021-04-10 13:12] LABS: COVID-19 Test Negative (Negative)
[2021-04-10 13:14] LABS: Alanine Aminotransferase 13 U/L (0-40); Albumin Level 3.7 g/dL (3.5-5.0); Alkaline Phosphatase 109 U/L (39-117); Anion Gap 15 (12-20); Aspartate Amino Transferase 20 U/L (5-37); Bilirubin Total 0.2 mg/dL (0.0-1.0); Blood Urea Nitrogen 19 mg/dL (9-16); Carbon Dioxide 21 mmol/L (22-29); Chloride 96 mmol/L (96-108); Creatinine Clr Calc Pharmacy 78.8; Estimated Glomerular Filt Rate 56; Glucose Random 97 mg/dL (60-115); Lactic Acid 2.3 mmol/L (0.5-2.0); Potassium 4.8 mmol/L (3.3-5.1); Sodium 127 mmol/L (135-145); Total Protein 6.9 g/dL (6.5-8.0)
[2021-04-10] MEDS: 0.9 % Sodium Chloride 1,000 ML 999 ML IV ×2 (13:14→15:01)
[2021-04-10] MEDS: Piperacillin Sodium/Tazobactam 3.375 GM in 0.9 % Sodium Chloride 50 ML IV ×2 (13:15→20:34)
[2021-04-10] MEDS: DAPTOmycin 700 MG in 0.9 % Sodium Chloride 50 ML 100 MG IV (14:26)
[2021-04-10 14:30] LABS: C Reactive Protein 0.89 mg/dL (< or = 0.50)
--- NOTE | 2021-04-10 14:36 | P.HPHOSP_ITS ---
History of Present Illness Date of Service: 04/10/21 Chief Complaint: Left leg stump pain and swelling This is a 61-year-old male with history of diabetes, hypertension, MGUS, peripheral neuropathy, PVD, status post bilateral BKA, on Eliquis, sleep apnea who presents to the hospital with complaints of left stump swelling, redness, warmth, and pain. Of note patient was discharged from the hospital on after being managed for cellulitis of left BKA as well as CIRILO, patient was discharged on doxycycline. Patient reports that he completed his doxycycline and was feeling better up until 2-3 days after discharge when he started having swelling in his leg that progressively got worse. Patient's PCP apparently refused to renew his doxycycline as per patient was taking it for too long and therefore was given Bactrim. Patient also underwent MRI on Wednesday which showed osteomyelitis and therefore patient presented to the hospital. Patient denies any fever but has chills, no abdominal pain nausea or vomiting, no chest pain, no shortness of breath, no headache or change in vision, no urinary symptoms no numbness tingling. Temperature of 98.5?, heart rate of 83, respiratory rate of 18, blood pressure of 118/55, satting 98% on room air Labs reviewed show WBC count of 9.0, hemoglobin of 11.4 which is significantly improved from his previous, sodium 127 with a baseline around 136, BUN of 19, c reatinine of 1.3 with a baseline of 0.9, lactic acid of 2.3, CRP of 0.89, ESR pending Patient is allergic to vancomycin, given 1 dose of daptomycin and will be admitted further management Review of Systems Review of Systems: Yes all other systems are reviewed and are negative [facility] Medical History Amputated great toe of right foot Back pain Diabetic foot infection Drug-induced thrombocytopenia Hyperlipidemia Hypertension IDDM (insulin dependent diabetes mellitus) MGUS (monoclonal gammopathy of unknown significance) Neck pain Peripheral neuropathy Psychiatric diagnosis PVD (peripheral vascular disease) Sleep apnea Family History Other No history of heart disease Surgical History H/O abdominoplasty H/O colonoscopy Hx of angioplasty Hx of appendectomy Hx of foot surgery Hx of tonsillectomy Hx of umbilical hernia repair S/P anal fissurectomy S/P BKA (below knee amputation) bilateral Status post below-knee amputation Social History Household Members: None Housing: Apartment Do you presently have visiting nurse or other home services: Yes (vna, lead data architect, commercial or institutional cleaner, mow) Alcohol intake: never Patient Tobacco Use Status: Former Tobacco user Second Hand Smoke Exposure: No Advance Directives: Yes Advance Directives on File: Yes Advance Directives Date on File: 09/27/20 service: Yes Current occupational status: unemployed Meds Allergies Allergy/AdvReac Type Severity Reaction Status Date / Time vancomycin AdvReac Severe thrombocyto Verified 03/28/21 08:36 penia Home Medications Medication Instructions Recorded Confirmed Last Taken Type aspirin 81 mg tablet,delayed 81 mg PO DAILY 07/17/20 04/10/21 03/06/21 08:00 History release gabapentin 600 mg tablet 600 mg PO BID 07/17/20 04/10/21 04/10/21 History liraglutide 0.6 mg/0.1 mL (18 mg/3 1.8 mg SUBCUT DAILY 07/17/20 04/10/21 04/10/21 History mL) subcutaneous pen injector (Victoza 3-Chet) lisinopril 5 mg tablet 5 mg PO DAILY 07/17/20 04/10/21 04/10/21 History metformin 1,000 mg tablet 1,000 mg PO BID 07/17/20 04/10/21 04/10/21 History cholecalciferol (vitamin D3) 25 25 mcg PO DAILY 09/04/20 04/10/21 04/10/21 History mcg (1,000 unit) tablet atorvastatin 40 mg tablet 40 mg PO BEDTIME 10/09/20 04/10/21 04/09/21 History insulin degludec 100 unit/mL (3 55 unit SUBCUT BEDTIME 12/23/20 04/10/21 04/09/21 History mL) subcutaneous pen (Tresiba FlexTouch U-100 insulin) insulin degludec 100 unit/mL (3 85 unit SUBCUT DAILY 12/23/20 04/10/21 04/10/21 History mL) subcutaneous pen (Tresiba FlexTouch U-100 insulin) magnesium oxide 400 mg (241.3 mg 400 mg PO BID 03/07/21 04/10/21 04/10/21 History magnesium) tablet lancets 28 gauge (FreeStyle #100 ea 03/20/21 Unknown History Lancets) albuterol sulfate 90 mcg/actuation 2 puff INHALATION Q4-6H PRN 04/10/21 04/10/21 Unknown History aerosol inhaler apixaban 5 mg tablet (Eliquis) 1 tab PO Q12H 04/10/21 04/10/21 04/10/21 History sulfamethoxazole 800 1 tab PO BID 04/10/21 04/10/21 04/10/21 History mg-trimethoprim 160 mg tablet Physical Exam Vital Signs and Narrative: Vital Signs: Last Vital Signs Temp 98.5 F 04/10/21 10:21 Pulse 77 04/10/21 12:24 Resp 16 04/10/21 12:24 BP 106/53 L 04/10/21 12:24 Pulse Ox 97 04/10/21 12:24 Body Mass Index 32.1 Const: General: cooperative and no acute distress Orientation/consciousness: patient oriented x3 Eyes: General: appearance normal, both eyes and all related structures Pupils: Equal, round and reactive pupils present Resp: Effort & Inspection: normal respiratory effort and able to speak in complete sentences Auscultation: clear to auscultation bilaterally Cardio: Rate: regular rate Rhythm: regular rhythm GI: Palpation (GI): Soft to palpation Auscultation: normal bowel sounds Skin: General skin exam: no rashes or lesions noted Neuro: General: patient oriented x3 Cranial nerves: Yes Equal, round and reactive pupils present Cognition (Neuro): normal cognition Extrem: Other: Bilateral below-knee amputation, left stump has erythema, warmth, swelling, no discharge tenderness on palpation Results Labs CBC and Chem 7: 04/10/21 12:37 04/10/21 12:37 Labs: Laboratory Results - last 24 hr 04/10/21 04/10/21 04/10/21 12:37 12:37 12:37 MCV 88.2 MCH 31.2 MCHC 35.4 RDW 12.3 Plt Count 293 MPV 9.7 Immature Gran % (Auto) 0.9 H Neut % (Auto) 53.2 Lymph % (Auto) 33.3 [place] % (Auto) 7.9 Eos % (Auto) 4.3 H Baso % (Auto) 0.4 Lymph # (Auto) 3.0 [place] # (Auto) 0.7 Eos # (Auto) 0.4 Baso # (Auto) 0.0 Abs Immat Gran (auto) 0.08 H Absolute Neuts (auto) 4.8 Absolute Nucleated RBC 0.000 Nucleated RBC % (auto) 0.0 Anion Gap 15 Estim Creat Clear Calc 78.8 Estimated GFR 56 Random Glucose 97 D Lactic Acid 2.3 H* Calcium 9.0 Total Bilirubin 0.2 AST 20 ALT 13 Alkaline Phosphatase 109 D C-Reactive Protein Total Protein 6.9 Albumin 3.7 Urine Color Urine Appearance Urine pH Ur Specific [place] Urine Protein Urine Glucose (UA) Urine Ketones Urine Blood Urine Nitrite Ur Leukocyte Esterase COVID-19 (JOSE) COVID-19 [employer] 04/10/21 04/10/21 04/10/21 12:45 12:45 13:49 MCV MCH MCHC RDW Plt Count MPV Immature Gran % (Auto) Neut % (Auto) Lymph % (Auto) [place] % (Auto) Eos % (Auto) Baso % (Auto) Lymph # (Auto) [place] # (Auto) Eos # (Auto) Baso # (Auto) Abs Immat Gran (auto) Absolute Neuts (auto) Absolute Nucleated RBC Nucleated RBC % (auto) Anion Gap Estim Creat Clear Calc Estimated GFR Random Glucose Lactic Acid Calcium Total Bilirubin AST ALT Alkaline Phosphatase C-Reactive Protein 0.89 H Total Protein Albumin Urine Color YELLOW Urine Appearance CLEAR Urine pH 6.0 Ur Specific [place] <= 1.005 Urine Protein NEG Urine Glucose (UA) NEG Urine Ketones NEG Urine Blood NEG Urine Nitrite NEG Ur Leukocyte Esterase NEG COVID-19 (JOSE) Negative COVID-19 Clin Com See Note Assessment and Plan (1) Osteomyelitis: Qualifiers: Laterality: left Osteomyelitis location: tibia Osteomyelitis type: unspecified type Qualified Code(s): M86.9 - Osteomyelitis, unspecified Status: Acute (2) Hyponatremia: Status: Acute (3) CIRILO (acute kidney injury): Status: Acute 61-year-old male with past medical history of osteomyelitis status post BKA bilaterally, diabetes, diabetic neuropathy, peripheral vascular disease, among others who presents to the hospital with left stump swelling, pain as well as erythema Found to have osteomyelitis on outpatient MRI # osteomyelitis - afebrile, no leukocytosis - has mildly elevated CRP, ESR pending - MRI done outpatient shows osteomyelitis - had left BKA in December - at this time will start him on daptomycin given his allergy to vancomycin, add Zosyn - consult infectious disease as well as surgical team for further evaluation - follow cultures # hyponatremia - unclear etiology - patient asymptomatic - will start him on NS - send urine studies - follow BMP # CIRILO - mild - no urinary symptoms and no UTI - will start patient on fluids - follow BMP # diabetes - continue home insulin - add low-dose sliding scale insulin - diabetic diet # history of PE - continue Eliquis DVT prophylaxis: Eliquis Quality Stroke Does the patient have a stroke diagnosis?: No VTE Prior VTE?: No VTE Risk Level:: Medical - moderate - high VTE Device Contraindication: Treatment Not Indicated VTE Drug Contraindication: N/A - Med Ordered
[2021-04-10 14:44] LABS: Reflex Lactate? Lactic Acid Added
[2021-04-10 14:48] LABS: Erythrocyte Sedimentation Rate 75 MM/HR (0-15)
[2021-04-10 14:55] VITALS: BP 106/59; PULSE 77; RESP 18; TEMP 36.7; O2SAT 96
--- NOTE | 2021-04-10 14:58 | PC.NURSE ---
pt resting on the stretcher. alert and oriented, skin pwd, respirations even and unlabored. pt is a bilateral amputation, left above the knee and right below the knee. the left stump red in color and warm to the touch, pt reports constant pain at 3/10
[2021-04-10 15:30] LABS: Osmolality, Serum 282 mosm/kg (281-305)
[2021-04-10 15:39] LABS: ~Lactic Acid-LAB USE ONLY 2.1 mmol/L (0.5-2.0)
[2021-04-10] MEDS: Apixaban 5 MG TABLET PO (15:49)
[2021-04-10] MEDS: 0.9 % Sodium Chloride 1,000 ML 100 ML IVCONT (15:50)
[2021-04-10] MEDS: 0.9 % Sodium Chloride Flush 3 ML SYRINGE IVFLUSH ×2 (15:51→21:53)
[2021-04-10 17:04] LABS: Reflex Lactate? 2 Y
[2021-04-10 18:07] LABS: ~Lactic Acid-LAB USE ONLY 1.4 mmol/L (0.5-2.0)
[2021-04-10 19:59] LABS: Glucose, Whole Blood 117 mg/dL (60-115)
[2021-04-10 20:20] VITALS: BP 120/51; PULSE 78; RESP 16; TEMP 36.8; O2SAT 98
[2021-04-10 20:36] LABS: Creatinine Urine 27.21 mg/dL
[2021-04-10 20:44] LABS: Osmolality Urine 215 mosm/kg (373-1093)
[2021-04-10 21:22] VITALS: BP 140/77; PULSE 77; RESP 16; TEMP 36.8; O2SAT 97
--- NOTE | 2021-04-10 21:50 | PC.NURSE ---
pt arrived on floor at 1999. Fleet edema was flagging since 2pm. refused fleet edema at current time, wants to wait till morning
[2021-04-10] MEDS: Gabapentin 600 MG TABLET PO (21:52)
[2021-04-10] MEDS: Atorvastatin Calcium 40 MG TABLET PO (21:52)
[2021-04-10] MEDS: Insulin Glargine,Hum.rec.anlog 100 UNIT/ML 10 ML VIAL 38 UNIT SUBCUT (21:53)
[2021-04-10] MEDS: Magnesium Oxide 400 MG TABLET PO (21:53)
[2021-04-10 22:02] VITALS: BMI 32.5
[2021-04-11] VITALS (7 sets, daily range): BP systolic 102–150; BP diastolic 49–74; PULSE 65–75; RESP 16–21; TEMP 36.1–36.9; O2SAT 96–99
[2021-04-11] MEDS: Piperacillin Sodium/Tazobactam 3.375 GM in 0.9 % Sodium Chloride 50 ML IV ×4 (00:38→19:06)
[2021-04-11] MEDS: 0.9 % Sodium Chloride 1,000 ML 100 ML IVCONT ×2 (00:38→10:55)
[2021-04-11 07:11] LABS: MANUAL DIFF FLAG NO
[2021-04-11 07:15] LABS: Basophils Absolute Auto 0.1 X10*3/uL (0.0-0.2); Eosinophils Absolute Auto 0.4 X10*3/uL (0.0-0.4); Eosinophils Percent Auto 5.3 % (0-4); Hematocrit 32.1 % (42-52); Hemoglobin 11.1 g/dl (14.0-18.0); Imm Gran Pct Auto 1.4 % (0.0-0.4); Lymphocytes Absolute Auto 2.4 X10*3/uL (1.2-4.9); Mean Corpuscular HGB Conc 34.6 g/dl (31.0-36.0); Mean Corpuscular Hemoglobin 31.2 pg (27.0-33.0); Mean Corpuscular Volume 90.2 fL (80-98); Mean Platelet Volume 9.8 fL (9.4-12.4); Monocytes Absolute Auto 0.7 X10*3/uL (0.1-1.2); Monocytes Percent Auto 10.3 % (2-11); Neutrophils Absolute Auto 3.5 X10*3/uL (2.0-8.3); Platelet Count 280 X10*3/uL (160-400); Red Blood Count 3.56 X10*6/uL (4.60-5.80); Red Cell Distribution Width 12.4 % (11.0-16.0); White Blood Count 7.2 X10*3/uL (4.8-10.8)
[2021-04-11 07:43] LABS: Anion Gap 13 (12-20); Blood Urea Nitrogen 17 mg/dL (9-16); Calcium 9.1 mg/dL (8.4-10.2); Carbon Dioxide 23 mmol/L (22-29); Chloride 106 mmol/L (96-108); Creatinine Clr Calc Pharmacy 83.9; Estimated Glomerular Filt Rate 60; Glucose Random 105 mg/dL (60-115); Potassium 4.8 mmol/L (3.3-5.1); Sodium 137 mmol/L (135-145)
[2021-04-11 08:05] LABS: Glucose, Whole Blood 102 mg/dL (60-115)
[2021-04-11] MEDS: Insulin Glargine,Hum.rec.anlog 100 UNIT/ML 10 ML VIAL 60 UNIT SUBCUT (10:00)
[2021-04-11] MEDS: lisinopriL 5 MG TABLET PO (10:01)
[2021-04-11] MEDS: Aspirin Enteric Coated 81 MG TABLET.DR PO (10:01)
[2021-04-11] MEDS: Magnesium Oxide 400 MG TABLET PO ×2 (10:01→20:51)
[2021-04-11] MEDS: Gabapentin 600 MG TABLET PO ×2 (10:01→20:51)
[2021-04-11] MEDS: polyethylene glycoL 3350 17 GM POWD.PACK PO (10:01)
[2021-04-11] MEDS: Apixaban 5 MG TABLET PO ×2 (10:01→20:51)
--- NOTE | 2021-04-11 10:07 | PC.NURSE ---
Skin assessment completed today. There are no open wounds, patients skin intact. Patient has a reddened, swollen left stump which is improving with antibiotics.
[2021-04-11 11:36] LABS: Glucose, Whole Blood 148 mg/dL (60-115)
--- NOTE | 2021-04-11 13:10 | P.PNIM_ITS ---
Subjective Subjective Date of Service: 04/11/21 Interval History: pt seen and examined at bedside. He reports that he feels tired but otherwise pain is improved, he has not had any fever or chills overnight. No shortness breath, no abdominal pain nausea or vomiting, no diarrhea constipation. Review of Systems Review of Systems: Yes all other systems are reviewed and are negative Physical Exam Vital Signs: Vital Signs: Last Vital Signs Temp 96.9 F 04/11/21 10:56 Pulse 71 04/11/21 10:56 Resp 20 04/11/21 10:56 BP 128/63 04/11/21 10:56 Pulse Ox 99 04/11/21 10:56 Body Mass Index 32.5 Const: General: cooperative and no acute distress Orientation/consciousness: patient oriented x3 Resp: Effort & Inspection: normal respiratory effort and able to speak in complete sentences Auscultation: clear to auscultation bilaterally Cardio: Rate: regular rate Rhythm: regular rhythm GI: Inspection: Yes normal to inspection Palpation (GI): nontender Neuro: General: patient oriented x3 Extrem: Other: Bilateral below-knee amputation, left stump has erythema, warmth, swelling, no discharge tenderness on palpation Objective Data Current Medications Generic Name Dose Route Start Last Admin Trade Name Freq PRN Reason Stop Dose Admin Acetaminophen 650 mg 04/10/21 14:49 Acetaminophen 325 Mg Tablet PO Q6H PRN Pain, Mild (Pain Scale 1-3) Albuterol Sulfate 2 puff 04/10/21 14:49 Albuterol Sulfate 90 Mcg 8 Gm Inhaler INHALE Q4H PRN Shortness Of Breath Apixaban 5 mg 04/11/21 09:00 04/11/21 10:01 Apixaban 5 Mg Tablet PO 5 mg BID TJ Administration Aspirin 81 mg 04/11/21 09:00 04/11/21 10:01 Aspirin Enteric Coated 81 Mg Tablet. PO 81 mg DAILY TJ Administration Atorvastatin Calcium 40 mg 04/10/21 21:00 04/10/21 21:52 Atorvastatin Calcium 40 Mg Tablet PO 40 mg BEDTIME TJ Administration Dextrose 25 gm 04/10/21 14:49 Dextrose 50 % 25 Gm/50 Ml Vial IVPUSH Q15M PRN per Hypoglycemia Standing Ord. Protocol Gabapentin 600 mg 04/10/21 21:00 04/11/21 10:01 Gabapentin 600 Mg Tablet PO 600 mg BID TJ Administration Glucose 15 gm 04/10/21 14:49 Glucose Gel 15 Gm Gel..Gram. PO Q15M PRN per Hypoglycemia Standing Ord. Protocol Daptomycin 680 mg/ Sodium 63.6 mls @ 100 mls/hr 04/11/21 14:00 Chloride IV Q24H TJ Sodium Chloride 1,000 mls @ 100 mls/hr 04/10/21 14:49 04/11/21 10:55 Ns IVCONT 100 mls/hr .Q10H TJ Administration Piperacillin Sod/Tazobactam 50 mls @ 100 mls/hr 04/10/21 19:00 04/11/21 12:46 Sod 3.375 gm/ Sodium Chloride IV Infused Q6H [facility] Infusion Insulin Glargine 60 unit 04/11/21 09:00 04/11/21 10:00 Insulin Glargine,Hum.Rec.Anlog 100 Unit/Ml 10 Ml Vial SUBCUT 60 unit DAILY TJ Administration Insulin Glargine 38 unit 04/10/21 21:00 04/10/21 21:53 Insulin Glargine,Hum.Rec.Anlog 100 Unit/Ml 10 Ml Vial SUBCUT 38 unit BEDTIME [facility] Administration Insulin Human Lispro 0 unit 04/10/21 16:30 04/11/21 11:40 Insulin Lispro 100 Unit/Ml 3 Ml Vial SUBCUT Not [facility] Protocol Lisinopril 5 mg 04/11/21 09:00 04/11/21 10:01 Lisinopril 5 Mg Tablet PO 5 mg DAILY TJ Administration Protocol Magnesium Oxide 400 mg 04/10/21 21:00 04/11/21 10:01 Magnesium Oxide 400 Mg Tablet PO 400 mg BID [facility] Administration Ondansetron HCl 4 mg 04/10/21 14:49 Ondansetron Hcl 4 Mg/2 Ml Vial IVPUSH Q8H PRN Nausea and Vomiting Polyethylene Glycol 17 gm 04/11/21 09:00 04/11/21 10:01 Polyethylene Glycol 3350 17 Gm Powd.Pack PO 17 gm DAILY TJ Administration Sodium Chloride 3 ml 04/10/21 16:00 04/11/21 10:00 0.9 % Sodium Chloride Flush 3 Ml Syringe IVFLUSH Not Given QSHIFT [facility] Labs CBC & Chem 7: 04/11/21 06:34 04/11/21 06:34 Labs: Laboratory Results - last 24 hr 04/10/21 04/10/21 04/10/21 12:37 12:37 12:45 MCV MCH MCHC RDW Plt Count MPV Immature Gran % (Auto) Neut % (Auto) Lymph % (Auto) [place] % (Auto) Eos % (Auto) Baso % (Auto) Lymph # (Auto) [place] # (Auto) Eos # (Auto) Baso # (Auto) Abs Immat Gran (auto) Absolute Neuts (auto) Absolute Nucleated RBC Nucleated RBC % (auto) ESR Anion Gap 15 Estim Creat Clear Calc 78.8 Estimated GFR 56 POC Glucose Random Glucose 97 D Osmolality Lactic Acid 2.3 H* Lactic Acid Fup @ 2Hr Lactic Acid Fup @ 4Hr Calcium 9.0 Total Bilirubin 0.2 AST 20 ALT 13 Alkaline Phosphatase 109 D C-Reactive Protein Total Protein 6.9 Albumin 3.7 Urine Osmolality Ur Random Sodium Urine Creatinine COVID-19 (JOSE) Negative COVID-19 [employer] Com See Note 04/10/21 04/10/21 04/10/21 13:49 13:49 15:01 MCV MCH MCHC RDW Plt Count MPV Immature Gran % (Auto) Neut % (Auto) Lymph % (Auto) [place] % (Auto) Eos % (Auto) Baso % (Auto) Lymph # (Auto) [place] # (Auto) Eos # (Auto) Baso # (Auto) Abs Immat Gran (auto) Absolute Neuts (auto) Absolute Nucleated RBC Nucleated RBC % (auto) ESR 75 H Anion Gap Estim Creat Clear Calc Estimated GFR POC Glucose Random Glucose Osmolality 282 Lactic Acid Lactic Acid Fup @ 2Hr Lactic Acid Fup @ 4Hr Calcium Total Bilirubin AST ALT Alkaline Phosphatase C-Reactive Protein 0.89 H Total Protein Albumin Urine Osmolality Ur Random Sodium Urine Creatinine COVID-19 (JOSE) COVID-19 [employer] 04/10/21 04/10/21 04/10/21 15:01 17:42 19:41 MCV MCH MCHC RDW Plt Count MPV Immature Gran % (Auto) Neut % (Auto) Lymph % (Auto) [place] % (Auto) Eos % (Auto) Baso % (Auto) Lymph # (Auto) [place] # (Auto) Eos # (Auto) Baso # (Auto) Abs Immat Gran (auto) Absolute Neuts (auto) Absolute Nucleated RBC Nucleated RBC % (auto) ESR Anion Gap Estim Creat Clear Calc Estimated GFR POC Glucose Random Glucose Osmolality Lactic Acid Lactic Acid Fup @ 2Hr 2.1 H* Lactic Acid Fup @ 4Hr 1.4 Calcium Total Bilirubin AST ALT Alkaline Phosphatase C-Reactive Protein Total Protein Albumin Urine Osmolality Ur Random Sodium 58.0 Urine Creatinine 27.21 COVID-19 (JOSE) COVID-19 Clin Com 04/10/21 04/10/21 04/11/21 19:41 19:55 06:34 MCV 90.2 MCH 31.2 MCHC 34.6 RDW 12.4 Plt Count 280 MPV 9.8 Immature Gran % (Auto) 1.4 H Neut % (Auto) 48.0 Lymph % (Auto) 34.0 [place] % (Auto) 10.3 Eos % (Auto) 5.3 H Baso % (Auto) 1.0 Lymph # (Auto) 2.4 [place] # (Auto) 0.7 Eos # (Auto) 0.4 Baso # (Auto) 0.1 Abs Immat Gran (auto) 0.10 H Absolute Neuts (auto) 3.5 Absolute Nucleated RBC 0.000 Nucleated RBC % (auto) 0.0 ESR Anion Gap Estim Creat Clear Calc Estimated GFR POC Glucose 117 H Random Glucose Osmolality Lactic Acid Lactic Acid Fup @ 2Hr Lactic Acid Fup @ 4Hr Calcium Total Bilirubin AST ALT Alkaline Phosphatase C-Reactive Protein Total Protein Albumin Urine Osmolality 215 L Ur Random Sodium Urine Creatinine COVID-19 (JOSE) COVID-19 Clin Com 04/11/21 04/11/21 04/11/21 06:34 07:51 11:22 MCV MCH MCHC RDW Plt Count MPV Immature Gran % (Auto) Neut % (Auto) Lymph % (Auto) [place] % (Auto) Eos % (Auto) Baso % (Auto) Lymph # (Auto) [place] # (Auto) Eos # (Auto) Baso # (Auto) Abs Immat Gran (auto) Absolute Neuts (auto) Absolute Nucleated RBC Nucleated RBC % (auto) ESR Anion Gap 13 Estim Creat Clear Calc 83.9 Estimated GFR 60 POC Glucose 102 148 H Random Glucose 105 Osmolality Lactic Acid Lactic Acid Fup @ 2Hr Lactic Acid Fup @ 4Hr Calcium 9.1 Total Bilirubin AST ALT Alkaline Phosphatase C-Reactive Protein Total Protein Albumin Urine Osmolality Ur Random Sodium Urine Creatinine COVID-19 (JOSE) COVID-19 Clin Com Assessment and Plan (1) Osteomyelitis: Status: Acute (2) CIRILO (acute kidney injury): Status: Acute Assessment and Plan: 61-year-old male with past medical history of osteomyelitis status post BKA bilaterally, diabetes, diabetic neuropathy, peripheral vascular disease, among others who presents to the hospital with left stump swelling, pain as well as erythema Found to have osteomyelitis on outpatient MRI # osteomyelitis - afebrile, no leukocytosis - has mildly elevated CRP, ESR high but lower than previous - MRI done outpatient shows osteomyelitis - had left BKA in December - at this time will start him on daptomycin given his allergy to vancomycin, add Zosyn - pending infectious disease as well as surgical team for further evaluation - follow cultures # hyponatremia- resolved - possibly inaccurate - his sodium is now back to his baseline of around 137 - unclear etiology - patient asymptomatic - stop NS - send urine studies - follow BMP # CIRILO - mild, improving - no urinary symptoms and no UTI - follow BMP # diabetes - continue home insulin - add low-dose sliding scale insulin - diabetic diet # history of PE - continue Eliquis DVT prophylaxis: Eliquis Quality Stroke Does the patient have a stroke diagnosis?: No VTE Prior VTE?: No VTE Risk Level:: Medical - moderate - high VTE Device Contraindication: Treatment Not Indicated VTE Drug Contraindication: N/A - Med Ordered
--- NOTE | 2021-04-11 13:23 | MHC.CLN ---
NUTRITION/CONSULT DIET CHANGED TO DIABETIC 2000 KCAL TO PROVIDE 17.4 KCAL/KG ACTUAL BODY WEIGHT. BMI ADJUSTED FOR BILATERAL BKA=36.9, OBESE
--- NOTE | 2021-04-11 14:57 | MHC.CM.PN ---
CM MET WITH PT WHO REPORTS HE LIVES ALONE AND HAS [employer] DAILY EXCEPT FOR WEDNESDAY. PT REPORTS THEY ASSIST HIM WITH HOUSEWORK AND PERSONAL CARE. PT REPORTS HE USES [facility] TRANSPORT TO GET TO APPTS. [facility] AND REPORTS THEY JUST EXTENDED SERVICES FOR THREE MORE WEEKS. PT HAS SEVERAL TYPES OF DME AT HOME INCLUDING A WHEEL CHAIR AND CPAP. HCP ON FILE. PT CONFIRMS HIS PCP IS JAM[facility]. CURRENT DC PLAN IS HOME WITH RESUMPTION OF SERVICES PT WILL NEED BLS TRANSPORT
[2021-04-11] MEDS: 0.9 % Sodium Chloride Flush 3 ML SYRINGE IVFLUSH (16:06)
[2021-04-11 16:17] LABS: Glucose, Whole Blood 195 mg/dL (60-115)
[2021-04-11] MEDS: Insulin Lispro 100 UNIT/ML 3 ML VIAL SUBCUT ×2 (16:51→20:51)
[2021-04-11 20:01] LABS: Glucose, Whole Blood 193 mg/dL (60-115)
[2021-04-11] MEDS: Atorvastatin Calcium 40 MG TABLET PO (20:51)
[2021-04-11] MEDS: Insulin Glargine,Hum.rec.anlog 100 UNIT/ML 10 ML VIAL 38 UNIT SUBCUT (20:52)
[2021-04-12] MEDS: Piperacillin Sodium/Tazobactam 3.375 GM in 0.9 % Sodium Chloride 50 ML IV ×4 (00:14→19:11)
[2021-04-12] MEDS: 0.9 % Sodium Chloride Flush 3 ML SYRINGE IVFLUSH ×4 (00:19→20:57)
[2021-04-12 04:00] VITALS: BP 98/66; PULSE 70; RESP 16; TEMP 36.6; O2SAT 99
[2021-04-12 07:44] LABS: Glucose, Whole Blood 166 mg/dL (60-115)
[2021-04-12] MEDS: Gabapentin 600 MG TABLET PO ×2 (07:48→20:53)
[2021-04-12] MEDS: Magnesium Oxide 400 MG TABLET PO ×2 (07:48→20:53)
[2021-04-12] MEDS: lisinopriL 5 MG TABLET PO (07:48)
[2021-04-12] MEDS: Apixaban 5 MG TABLET PO ×2 (07:49→20:53)
[2021-04-12] MEDS: Insulin Glargine,Hum.rec.anlog 100 UNIT/ML 10 ML VIAL 60 UNIT SUBCUT (07:49)
[2021-04-12] MEDS: Aspirin Enteric Coated 81 MG TABLET.DR PO (07:49)
[2021-04-12] MEDS: Insulin Lispro 100 UNIT/ML 3 ML VIAL SUBCUT ×4 (07:49→20:54)
[2021-04-12] MEDS: polyethylene glycoL 3350 17 GM POWD.PACK PO (07:50)
[2021-04-12 08:00] VITALS: BP 111/56; PULSE 71; RESP 18; TEMP 36.5; O2SAT 96
[2021-04-12 11:31] LABS: Glucose, Whole Blood 173 mg/dL (60-115)
[2021-04-12 11:49] VITALS: BP 109/58; PULSE 68; RESP 16; TEMP 36.6; O2SAT 93
--- NOTE | 2021-04-12 12:50 | HO.PM.IMPN ---
Subjective Subjective Date of Service: 04/12/21 Interval History: Complaining of left BKA stump pain and swelling, feels discouraged once definite treatment for this ongoing problem, no fevers no chills no other acute issues overnight. Review of Systems General no headache, no dizziness no fever chills. CVS no chest pain, no palpitation. Respiratory no cough, no sob. Gastrointestinal no nausea no vomiting, no abdominal pain Physical Exam Vital Signs: Vital Signs: Last Vital Signs Temp 97.8 F 04/12/21 11:49 Pulse 68 04/12/21 11:49 Resp 16 04/12/21 11:49 BP 109/58 L 04/12/21 11:49 Pulse Ox 93 04/12/21 11:49 Body Mass Index 32.5 General no acute distress. Neck supple no JVD. CVS regular rate rhythm, Respiratory lungs clear to auscultation, no respiratory distress, no wheeze, no rhonchi. Gastrointestinal abdomen soft, nontender, bowel sounds audible Extremities b/l BKA left stump redness and swelling improving no open wounds Neuro nonfocal ,speech clear. Skin no rash Objective Data Current Medications Generic Name Dose Route Start Last Admin Trade Name Freq PRN Reason Stop Dose Admin Acetaminophen 650 mg 04/10/21 14:49 Acetaminophen 325 Mg Tablet PO Q6H PRN Pain, Mild (Pain Scale 1-3) Albuterol Sulfate 2 puff 04/10/21 14:49 Albuterol Sulfate 90 Mcg 8 Gm Inhaler INHALE Q4H PRN Shortness Of Breath Apixaban 5 mg 04/11/21 09:00 04/12/21 07:49 Apixaban 5 Mg Tablet PO 5 mg BID TJ Administration Aspirin 81 mg 04/11/21 09:00 04/12/21 07:49 Aspirin Enteric Coated 81 Mg Tablet.Dr PO 81 mg DAILY TJ Administration Atorvastatin Calcium 40 mg 04/10/21 21:00 04/11/21 20:51 Atorvastatin Calcium 40 Mg Tablet PO 40 mg BEDTIME TJ Administration Dextrose 25 gm 04/10/21 14:49 Dextrose 50 % 25 Gm/50 Ml Vial IVPUSH Q15M PRN per Hypoglycemia Standing Ord. Protocol Gabapentin 600 mg 04/10/21 21:00 04/12/21 07:48 Gabapentin 600 Mg Tablet PO 600 mg BID TJ Administration Glucose 15 gm 04/10/21 14:49 Glucose Gel 15 Gm Gel..Gram. PO Q15M PRN per Hypoglycemia Standing Ord. Protocol Piperacillin Sod/Tazobactam 50 mls @ 100 mls/hr 04/10/21 19:00 04/12/21 12:41 Sod 3.375 gm/ Sodium Chloride IV 100 mls/hr Q6H TJ Administration Daptomycin 680 mg/ Sodium 63.6 mls @ 99.983 mls/hr 04/11/21 14:00 04/11/21 15:56 Chloride IV Infused Q24H TJ Infusion Insulin Glargine 60 unit 04/11/21 09:00 04/12/21 07:49 Insulin Glargine,Hum.Rec.Anlog 100 Unit/Ml 10 Ml Vial SUBCUT 60 unit DAILY TJ Administration Insulin Glargine 38 unit 04/10/21 21:00 04/11/21 20:52 Insulin Glargine,Hum.Rec.Anlog 100 Unit/Ml 10 Ml Vial SUBCUT 38 unit BEDTIME TJ Administration Insulin Human Lispro 0 unit 04/10/21 16:30 04/12/21 12:00 Insulin Lispro 100 Unit/Ml 3 Ml Vial SUBCUT 2 unit QIDACHS TJ Administration Protocol Lisinopril 5 mg 04/11/21 09:00 04/12/21 07:48 Lisinopril 5 Mg Tablet PO 5 mg DAILY TJ Administration Protocol Magnesium Oxide 400 mg 04/10/21 21:00 04/12/21 07:48 Magnesium Oxide 400 Mg Tablet PO 400 mg BID TJ Administration Ondansetron HCl 4 mg 04/10/21 14:49 Ondansetron Hcl 4 Mg/2 Ml Vial IVPUSH Q8H PRN Nausea and Vomiting Polyethylene Glycol 17 gm 04/11/21 09:00 04/12/21 07:50 Polyethylene Glycol 3350 17 Gm Powd.Pack PO 17 gm DAILY TJ Administration Sodium Chloride 3 ml 04/10/21 16:00 04/12/21 07:53 0.9 % Sodium Chloride Flush 3 Ml Syringe IVFLUSH 3 ml QSHIFT TJ Administration Labs CBC & Chem 7: 04/11/21 06:34 04/11/21 06:34 Labs: Laboratory Results - last 24 hr 04/11/21 04/11/21 04/12/21 16:06 19:47 07:25 POC Glucose 195 H 193 H 166 H 04/12/21 11:19 POC Glucose 173 H Microbiology Microbiology Results: Microbiology 04/10/21 12:45 Blood Culture - Preliminary Blood - Venous No growth after 24 hours. 04/10/21 12:37 Blood Culture - Preliminary Blood - Venous No growth after 24 hours. Assessment and Plan (1) Osteomyelitis: Status: Acute (2) Obesity: Status: Acute (3) Diabetes: Status: Acute (4) COPD (chronic obstructive pulmonary disease): Status: Acute Assessment and Plan: 61-year-old male with past medical history of osteomyelitis status post BKA bilaterally, diabetes, diabetic neuropathy, peripheral vascular disease, among others who presents to the hospital with left stump swelling, pain as well as erythema Found to have osteomyelitis on outpatient MRI # osteomyelitis/cellulitis left BKA stump Redness and swelling improving - afebrile, no leukocytosis, mildly elevated CRP,and ESR lower than previous - MRI done outpatient shows osteomyelitis, blood cultures x2 negative - had left BKA in December, continue iv daptomycin and IV Zosyn given his allergy to vancomycin - await Infectious Disease input consult Dr. Figueroa # hyponatremia- resolved, initial sodium 127 improved to 137 - possibly inaccurate, follow BMP # diabetes - blood sugar less than 200, continue home insulin, low-dose sliding scale insulin, and diabetic diet # history of PE continue Eliquis DVT prophylaxis:? Eliquis Quality Stroke Does the patient have a stroke diagnosis?: No VTE Prior VTE?: No VTE Risk Level:: Medical - moderate - high VTE Device Contraindication: Treatment Not Indicated VTE Drug Contraindication: N/A - Med Ordered
[2021-04-12 15:48] VITALS: BP 113/61; PULSE 70; RESP 14; TEMP 36.8; O2SAT 96
[2021-04-12 16:49] LABS: Glucose, Whole Blood 166 mg/dL (60-115)
[2021-04-12 19:08] VITALS: BP 120/66; PULSE 75; RESP 16; TEMP 37.6; O2SAT 96
[2021-04-12 20:41] LABS: Glucose, Whole Blood 227 mg/dL (60-115)
[2021-04-12] MEDS: Atorvastatin Calcium 40 MG TABLET PO (20:53)
[2021-04-12] MEDS: Insulin Glargine,Hum.rec.anlog 100 UNIT/ML 10 ML VIAL 38 UNIT SUBCUT (20:54)
--- NOTE | 2021-04-12 23:30 | P.CNID_ITS ---
History of Present Illness Data of Consult Service Date: 04/12/21 Requesting physician: Troy Terrazas Primary Care Provider: Virginie Liao MD [facility] Reason for consult: left stump osteomyelitis He presents to hospital with discomfort left stump He has no fever or chills He has outpatient MRI osteomyelitis. Review of Systems Review of Systems: Yes all other systems are reviewed and are negative PMFSH Past Medical History Medical History Amputated great toe of right foot Back pain Diabetic foot infection Drug-induced thrombocytopenia Hyperlipidemia Hypertension IDDM (insulin dependent diabetes mellitus) MGUS (monoclonal gammopathy of unknown significance) Neck pain Peripheral neuropathy Psychiatric diagnosis PVD (peripheral vascular disease) Sleep apnea Family History Family History Other No history of heart disease Surgical History Surgical History H/O abdominoplasty H/O colonoscopy Hx of angioplasty Hx of appendectomy Hx of foot surgery Hx of tonsillectomy Hx of umbilical hernia repair S/P anal fissurectomy S/P BKA (below knee amputation) bilateral Status post below-knee amputation Social History Social History Household Members: None Housing: Apartment Do you presently have visiting nurse or other home services: Yes ([facility]) Alcohol intake: never Patient Tobacco Use Status: Former Tobacco user Tobacco use type: Cigarette Second Hand Smoke Exposure: No Advance Directives Date on File: 09/27/20 service: Yes Current occupational status: disabled Meds Allergies Allergy/AdvReac Type Severity Reaction Status Date / Time vancomycin AdvReac Severe thrombocyto Verified 03/28/21 08:36 penia Active Medications: Current Medications Generic Name Dose Route Start Last Admin Trade Name Freq PRN Reason Stop Dose Admin Acetaminophen 650 mg 04/10/21 14:49 Acetaminophen 325 Mg Tablet PO Q6H PRN Pain, Mild (Pain Scale 1-3) Albuterol Sulfate 2 puff 04/10/21 14:49 Albuterol Sulfate 90 Mcg 8 Gm Inhaler INHALE Q4H PRN Shortness Of Breath Apixaban 5 mg 04/11/21 09:00 04/12/21 20:53 Apixaban 5 Mg Tablet PO 5 mg BID TJ Administration Aspirin 81 mg 04/11/21 09:00 04/12/21 07:49 Aspirin Enteric Coated 81 Mg Tablet. PO 81 mg DAILY TJ Administration Atorvastatin Calcium 40 mg 04/10/21 21:00 04/12/21 20:53 Atorvastatin Calcium 40 Mg Tablet PO 40 mg BEDTIME TJ Administration Dextrose 25 gm 04/10/21 14:49 Dextrose 50 % 25 Gm/50 Ml Vial IVPUSH Q15M PRN per Hypoglycemia Standing Ord. Protocol Gabapentin 600 mg 04/10/21 21:00 04/12/21 20:53 Gabapentin 600 Mg Tablet PO 600 mg BID TJ Administration Glucose 15 gm 04/10/21 14:49 Glucose Gel 15 Gm Gel..Gram. PO Q15M PRN per Hypoglycemia Standing Ord. Protocol Piperacillin Sod/Tazobactam 50 mls @ 100 mls/hr 04/10/21 19:00 04/12/21 19:59 Sod 3.375 gm/ Sodium Chloride IV Infused Q6H TJ Infusion Daptomycin 680 mg/ Sodium 63.6 mls @ 99.983 mls/hr 04/11/21 14:00 04/12/21 15:40 Chloride IV Infused Q24H TJ Infusion Insulin Glargine 60 unit 04/11/21 09:00 04/12/21 07:49 Insulin Glargine,Hum.Rec.Anlog 100 Unit/Ml 10 Ml Vial SUBCUT 60 unit DAILY TJ Administration Insulin Glargine 38 unit 04/10/21 21:00 04/12/21 20:54 Insulin Glargine,Hum.Rec.Anlog 100 Unit/Ml 10 Ml Vial SUBCUT 38 unit BEDTIME TJ Administration Insulin Human Lispro 0 unit 04/10/21 16:30 04/12/21 20:54 Insulin Lispro 100 Unit/Ml 3 Ml Vial SUBCUT 4 unit QIDACHS TJ Administration Protocol Lisinopril 5 mg 04/11/21 09:00 04/12/21 07:48 Lisinopril 5 Mg Tablet PO 5 mg DAILY TJ Administration Protocol Magnesium Oxide 400 mg 04/10/21 21:00 04/12/21 20:53 Magnesium Oxide 400 Mg Tablet PO 400 mg BID TJ Administration Ondansetron HCl 4 mg 04/10/21 14:49 Ondansetron Hcl 4 Mg/2 Ml Vial IVPUSH Q8H PRN Nausea and Vomiting Polyethylene Glycol 17 gm 04/11/21 09:00 04/12/21 07:50 Polyethylene Glycol 3350 17 Gm Powd.Pack PO 17 gm DAILY TJ Administration Sodium Chloride 3 ml 04/10/21 16:00 04/12/21 20:57 0.9 % Sodium Chloride Flush 3 Ml Syringe IVFLUSH 3 ml QSHIFT TJ Administration Home Medications Medication Instructions Recorded Confirmed Last Taken Type aspirin 81 mg tablet,delayed 81 mg PO DAILY 07/17/20 04/10/21 03/06/21 08:00 History release gabapentin 600 mg tablet 600 mg PO BID 07/17/20 04/10/21 04/10/21 History liraglutide 0.6 mg/0.1 mL (18 mg/3 1.8 mg SUBCUT DAILY 07/17/20 04/10/21 04/10/21 History mL) subcutaneous pen injector ([employer] 3-Chet) lisinopril 5 mg tablet 5 mg PO DAILY 07/17/20 04/10/21 04/10/21 History metformin 1,000 mg tablet 1,000 mg PO BID 07/17/20 04/10/21 04/10/21 History cholecalciferol (vitamin D3) 25 25 mcg PO DAILY 09/04/20 04/10/21 04/10/21 History mcg (1,000 unit) tablet atorvastatin 40 mg tablet 40 mg PO BEDTIME 10/09/20 04/10/21 04/09/21 History insulin degludec 100 unit/mL (3 55 unit SUBCUT BEDTIME 12/23/20 04/10/21 04/09/21 History mL) subcutaneous pen ([employer] FlexTouch U-100 insulin) insulin degludec 100 unit/mL (3 85 unit SUBCUT DAILY 12/23/20 04/10/21 04/10/21 History mL) subcutaneous pen ([employer] FlexTouch U-100 insulin) magnesium oxide 400 mg (241.3 mg 400 mg PO BID 03/07/21 04/10/21 04/10/21 History magnesium) tablet lancets 28 gauge (FreeStyle #100 ea 03/20/21 Unknown History Lancets) albuterol sulfate 90 mcg/actuation 2 puff INHALATION Q4-6H PRN 04/10/21 04/10/21 Unknown History aerosol inhaler apixaban 5 mg tablet (Eliquis) 1 tab PO Q12H 04/10/21 04/10/21 04/10/21 History Physical Exam Vital Signs: Vital Signs: Last Vital Signs Temp 99.7 F 04/12/21 19:08 Pulse 75 04/12/21 19:08 Resp 16 04/12/21 19:08 BP 120/66 04/12/21 19:08 Pulse Ox 96 04/12/21 19:08 Body Mass Index 32.5 Const: General: cooperative HENMT: Head: Yes normal to inspection Mouth: Normal oral and palatal mucosa present Eyes: General: appearance normal, both eyes and all related structures Resp: Effort & Inspection: normal respiratory effort Cardio: Rate: regular rate Rhythm: regular rhythm GI: Palpation (GI): Soft to palpation and nontender Extrem: Other: left erythema Results Labs CBC & Chem 7: 04/14/21 12:11 04/15/21 06:51 Microbiology Microbiology Results: Microbiology 04/10/21 12:45 Blood - Venous Blood Culture - Preliminary No growth after 48 hours. 04/10/21 12:37 Blood - Venous Blood Culture - Preliminary No growth after 48 hours. Assessment and Plan (1) Osteomyelitis: Qualifiers: Laterality: left Osteomyelitis location: tibia Osteomyelitis type: unspecified type Qualified Code(s): M86.9 - Osteomyelitis, unspecified Status: Acute He has osteomyelitis left stump He has MRSA infection of area. Daptomycin for six weeks then po Doxycycline Weekly CBC,creatinine and LFTs
[2021-04-12 23:37] VITALS: BP 114/59; PULSE 67; RESP 16; TEMP 36.5; O2SAT 98
[2021-04-13 03:55] VITALS: RESP 16
[2021-04-13 07:42] LABS: Glucose, Whole Blood 136 mg/dL (60-115)
[2021-04-13 07:45] VITALS: BP 129/65; PULSE 68; RESP 17; TEMP 36.5; O2SAT 94
[2021-04-13] MEDS: Magnesium Oxide 400 MG TABLET PO ×2 (09:17→22:00)
[2021-04-13] MEDS: Gabapentin 600 MG TABLET PO ×2 (09:17→22:00)
[2021-04-13] MEDS: 0.9 % Sodium Chloride Flush 3 ML SYRINGE IVFLUSH ×3 (09:17→22:05)
[2021-04-13] MEDS: lisinopriL 5 MG TABLET PO (09:17)
[2021-04-13] MEDS: Insulin Glargine,Hum.rec.anlog 100 UNIT/ML 10 ML VIAL 60 UNIT SUBCUT (09:17)
[2021-04-13] MEDS: Apixaban 5 MG TABLET PO ×2 (09:17→22:00)
[2021-04-13] MEDS: Aspirin Enteric Coated 81 MG TABLET.DR PO (09:17)
[2021-04-13] MEDS: polyethylene glycoL 3350 17 GM POWD.PACK PO (09:18)
--- NOTE | 2021-04-13 11:02 | P.PNIM_ITS ---
Subjective Subjective Date of Service: 04/13/21 Interval History: Patient offers no acute complaints, had 2 large bowel movement not watery, no abdominal pain, no nausea, no vomiting, no fever, no chills, no shortness of breath no other acute issues overnight Review of Systems Review of system as above, Rest all other system are reviewed and negative Physical Exam Vital Signs: Vital Signs: Last Vital Signs Temp 97.7 F 04/13/21 07:45 Pulse 68 04/13/21 07:45 Resp 17 04/13/21 07:45 BP 129/65 04/13/21 07:45 Pulse Ox 94 04/13/21 07:45 Body Mass Index 32.5 General no acute distress.? Neck? supple no JVD. CVS? regular rate rhythm, Respiratory lungs clear to auscultation, no respiratory distress, no wheeze, no rhonchi. Gastrointestinal abdomen soft, nontender, bowel sounds audible Extremities b/l BKA left stump redness and swelling improving, no open wounds. Neuro nonfocal ,speech clear. Skin no rash Objective Data Current Medications Generic Name Dose Route Start Last Admin Trade Name Freq PRN Reason Stop Dose Admin Acetaminophen 650 mg 04/10/21 14:49 Acetaminophen 325 Mg Tablet PO Q6H PRN Pain, Mild (Pain Scale 1-3) Albuterol Sulfate 2 puff 04/10/21 14:49 Albuterol Sulfate 90 Mcg 8 Gm Inhaler INHALE Q4H PRN Shortness Of Breath Apixaban 5 mg 04/11/21 09:00 04/13/21 09:17 Apixaban 5 Mg Tablet PO 5 mg BID TJ Administration Aspirin 81 mg 04/11/21 09:00 04/13/21 09:17 Aspirin Enteric Coated 81 Mg Tablet.Dr PO 81 mg DAILY TJ Administration Atorvastatin Calcium 40 mg 04/10/21 21:00 04/12/21 20:53 Atorvastatin Calcium 40 Mg Tablet PO 40 mg BEDTIME TJ Administration Dextrose 25 gm 04/10/21 14:49 Dextrose 50 % 25 Gm/50 Ml Vial IVPUSH Q15M PRN per Hypoglycemia Standing Ord. Protocol Gabapentin 600 mg 04/10/21 21:00 04/13/21 09:17 Gabapentin 600 Mg Tablet PO 600 mg BID TJ Administration Glucose 15 gm 04/10/21 14:49 Glucose Gel 15 Gm Gel..Gram. PO Q15M PRN per Hypoglycemia Standing Ord. Protocol Daptomycin 680 mg/ Sodium 63.6 mls @ 99.983 mls/hr 04/11/21 14:00 04/12/21 15:40 Chloride IV Infused Q24H TJ Infusion Insulin Glargine 60 unit 04/11/21 09:00 04/13/21 09:17 Insulin Glargine,Hum.Rec.Anlog 100 Unit/Ml 10 Ml Vial SUBCUT 60 unit DAILY TJ Administration Insulin Glargine 38 unit 04/10/21 21:00 04/12/21 20:54 Insulin Glargine,Hum.Rec.Anlog 100 Unit/Ml 10 Ml Vial SUBCUT 38 unit BEDTIME TJ Administration Insulin Human Lispro 0 unit 04/10/21 16:30 04/13/21 07:35 Insulin Lispro 100 Unit/Ml 3 Ml Vial SUBCUT Not Given QIDACHS [facility] Protocol Lisinopril 5 mg 04/11/21 09:00 04/13/21 09:17 Lisinopril 5 Mg Tablet PO 5 mg DAILY [facility] Administration Protocol Magnesium Oxide 400 mg 04/10/21 21:00 04/13/21 09:17 Magnesium Oxide 400 Mg Tablet PO 400 mg BID TJ Administration Ondansetron HCl 4 mg 04/10/21 14:49 Ondansetron Hcl 4 Mg/2 Ml Vial IVPUSH Q8H PRN Nausea and Vomiting Polyethylene Glycol 17 gm 04/11/21 09:00 04/13/21 09:18 Polyethylene Glycol 3350 17 Gm Powd.Pack PO 17 gm DAILY [facility] Administration Sodium Chloride 3 ml 04/10/21 16:00 04/13/21 09:17 0.9 % Sodium Chloride Flush 3 Ml Syringe IVFLUSH 3 ml QSHIFT [facility] Administration Labs CBC & Chem 7: 04/11/21 06:34 04/11/21 06:34 Labs: Laboratory Results - last 24 hr 04/12/21 04/12/21 04/12/21 11:19 16:29 20:19 POC Glucose 173 H 166 H 227 H 04/13/21 07:11 POC Glucose 136 H Microbiology Microbiology Results: Microbiology 04/10/21 12:45 Blood Culture - Preliminary Blood - Venous No growth after 48 hours. 04/10/21 12:37 Blood Culture - Preliminary Blood - Venous No growth after 48 hours. Assessment and Plan (1) Osteomyelitis: Status: Acute (2) Hyponatremia: Status: Acute Assessment and Plan: 61-year-old male with past medical history of osteomyelitis status post BKA bilaterally, diabetes, diabetic neuropathy, peripheral vascular disease, among others who presents to the hospital with left stump swelling, pain as well as erythema Found to have osteomyelitis on outpatient MRI # osteomyelitis/cellulitis left BKA stump ? Redness and swelling improving - afebrile, no leukocytosis, mildly elevated CRP,and ESR? lower than previous - MRI done outpatient shows osteomyelitis, blood cultures x2 negative - had left BKA in December, continue iv daptomycin day3 given his allergy to vancomycin,stop iv zosyn - patient seen by ID Dr. Fleming recommend 6 weeks of IV daptomycin followed by by mouth doxy and recommend Q weekly CBC creatinine and LFTs Await Dr. Figueroa input # diarrhea check c.diff likely due to antibiotics # hyponatremia- resolved, initial sodium 127 improved to 137 - follow BMP # diabetes - blood sugar less than 200, continue home insulin, low-dose sliding scale insulin, and diabetic diet # history of PE ?? continue Eliquis DVT prophylaxis:? Eliquis Quality Stroke Does the patient have a stroke diagnosis?: No VTE Prior VTE?: No VTE Risk Level:: Medical - moderate - high VTE Device Contraindication: Treatment Not Indicated VTE Drug Contraindication: N/A - Med Ordered
[2021-04-13 11:49] LABS: Glucose, Whole Blood 136 mg/dL (60-115)
[2021-04-13 12:00] VITALS: BP 126/74; PULSE 64; RESP 18; TEMP 36.4; O2SAT 96
[2021-04-13 15:35] VITALS: BP 116/66; PULSE 57; RESP 18; TEMP 36.4; O2SAT 98
[2021-04-13 16:06] LABS: Glucose, Whole Blood 126 mg/dL (60-115)
[2021-04-13 19:25] VITALS: BP 122/68; PULSE 61; RESP 18; TEMP 36.9; O2SAT 97
[2021-04-13 20:31] LABS: Glucose, Whole Blood 135 mg/dL (60-115)
[2021-04-13] MEDS: Atorvastatin Calcium 40 MG TABLET PO (22:00)
[2021-04-13] MEDS: Insulin Glargine,Hum.rec.anlog 100 UNIT/ML 10 ML VIAL 38 UNIT SUBCUT (22:00)
[2021-04-14] VITALS (7 sets, daily range): BP systolic 107–134; BP diastolic 59–75; PULSE 54–77; RESP 17–19; TEMP 36.3–37.2; O2SAT 96–99
[2021-04-14 07:47] LABS: Glucose, Whole Blood 102 mg/dL (60-115)
[2021-04-14] MEDS: 0.9 % Sodium Chloride Flush 3 ML SYRINGE IVFLUSH ×2 (08:04→16:27)
[2021-04-14] MEDS: Aspirin Enteric Coated 81 MG TABLET.DR PO (08:08)
[2021-04-14] MEDS: Apixaban 5 MG TABLET PO ×2 (08:08→20:36)
[2021-04-14] MEDS: Gabapentin 600 MG TABLET PO ×2 (08:08→20:36)
[2021-04-14] MEDS: polyethylene glycoL 3350 17 GM POWD.PACK PO (08:08)
[2021-04-14] MEDS: Magnesium Oxide 400 MG TABLET PO ×2 (08:08→20:36)
[2021-04-14] MEDS: lisinopriL 5 MG TABLET PO (08:08)
[2021-04-14 12:01] LABS: Glucose, Whole Blood 172 mg/dL (60-115)
[2021-04-14] MEDS: Insulin Lispro 100 UNIT/ML 3 ML VIAL SUBCUT ×3 (12:17→20:36)
[2021-04-14 12:31] LABS: Hematocrit 32.9 % (42-52); Hemoglobin 11.1 g/dl (14.0-18.0); Mean Corpuscular HGB Conc 33.7 g/dl (31.0-36.0); Mean Corpuscular Hemoglobin 30.6 pg (27.0-33.0); Mean Corpuscular Volume 90.6 fL (80-98); Mean Platelet Volume 9.5 fL (9.4-12.4); Platelet Count 267 X10*3/uL (160-400); Red Blood Count 3.63 X10*6/uL (4.60-5.80); Red Cell Distribution Width 12.6 % (11.0-16.0); White Blood Count 7.7 X10*3/uL (4.8-10.8)
--- NOTE | 2021-04-14 12:49 | PM.CNGS ---
History of Present Illness Consult details Consult date: 04/14/21 Narrative: 61-year-old gentleman well known to ne status post bilateral BKA amputations. He most recently presented to the hospital with cellulitis of the left stump. It had become progressively uncomfortable for him. He was subsequently worked up. On MRI he was found to have underlying osteomyelitis. His skin is intact and the amputation site remains closed. He now presents routine vascular follow-up Review of Systems Review of Systems: Yes all other systems are reviewed and are negative Constitutional: Constitutional: Reports no additional constitutional complaints ENT: Reports Normal hearing present Cardiovascular: Cardiovascular: Denies chest pain, Denies chest pain at rest, Denies chest pain with activity and Denies pedal edema Respiratory: Respiratory: Denies cough Gastrointestinal: Gastrointestinal: Denies abdominal pain Musculoskeletal: Musculoskeletal: Denies abnormal gait, Denies muscle cramps and Denies radiating pain into limb Integumentary/Breasts: Skin/Breast: Denies skin ulcer and Denies wounds Neurologic: Reports Normal hearing present and Denies abnormal gait Psychiatric: Psychiatric: Reports no additional psychiatric complaints PMFSH Past Medical History Medical History Amputated great toe of right foot Back pain Diabetic foot infection Drug-induced thrombocytopenia Hyperlipidemia Hypertension IDDM (insulin dependent diabetes mellitus) MGUS (monoclonal gammopathy of unknown significance) Neck pain Peripheral neuropathy Psychiatric diagnosis PVD (peripheral vascular disease) Sleep apnea Family History Family History Other No history of heart disease Surgical History Surgical History H/O abdominoplasty H/O colonoscopy Hx of angioplasty Hx of appendectomy Hx of foot surgery Hx of tonsillectomy Hx of umbilical hernia repair S/P anal fissurectomy S/P BKA (below knee amputation) bilateral Status post below-knee amputation Social History Social History Household Members: None Housing: Apartment Do you presently have visiting nurse or other home services: Yes ([facility]- [facility]) Alcohol intake: never Patient Tobacco Use Status: Former Tobacco user Tobacco use type: Cigarette Second Hand Smoke Exposure: No Use of substances other than those prescribed or required for medical reasons: No Currently Displaying Signs/Symptoms of Drug Intoxication Withdrawal: No Have you been hit, kicked, punched, or otherwise hurt by someone within the past year? If so, by whom?: No Do you feel safe in your current relationship?: No Current Relationship Is there a partner from a previous relationship who is making you feel unsafe now?: No Are you made to feel afraid or neglected: No Advance Directives: Yes Advance Directives Information Provided: No Advance Directives on File: Yes Advance Directives Date on File: 09/27/20 Do you have thoughts of harming others: None Do you have a plan to hurt others: No Plan Recently lost weight without trying: No How much weight loss: Not applicable Eating poorly because of decreased appetite: No Nutrition screen score: 0 Nutrition Risks: No Nutritional Risk Poor oral hygiene: No service: Yes Current occupational status: disabled Meds Allergies Allergy/AdvReac Type Severity Reaction Status Date / Time vancomycin AdvReac Severe thrombocyto Verified 03/28/21 08:36 penia Active Medications: Current Medications Generic Name Dose Route Start Last Admin Trade Name Freq PRN Reason Stop Dose Admin Acetaminophen 650 mg 04/10/21 14:49 Acetaminophen 325 Mg Tablet PO Q6H PRN Pain, Mild (Pain Scale 1-3) Albuterol Sulfate 2 puff 04/10/21 14:49 Albuterol Sulfate 90 Mcg 8 Gm Inhaler INHALE Q4H PRN Shortness Of Breath Apixaban 5 mg 04/11/21 09:00 04/14/21 08:08 Apixaban 5 Mg Tablet PO 5 mg BID TJ Administration Aspirin 81 mg 04/11/21 09:00 04/14/21 08:08 Aspirin Enteric Coated 81 Mg Tablet. PO 81 mg DAILY TJ Administration Atorvastatin Calcium 40 mg 04/10/21 21:00 04/13/21 22:00 Atorvastatin Calcium 40 Mg Tablet PO 40 mg BEDTIME TJ Administration Dextrose 25 gm 04/10/21 14:49 Dextrose 50 % 25 Gm/50 Ml Vial IVPUSH Q15M PRN per Hypoglycemia Standing Ord. Protocol Gabapentin 600 mg 04/10/21 21:00 04/14/21 08:08 Gabapentin 600 Mg Tablet PO 600 mg BID TJ Administration Glucose 15 gm 04/10/21 14:49 Glucose Gel 15 Gm Gel..Gram. PO Q15M PRN per Hypoglycemia Standing Ord. Protocol Daptomycin 680 mg/ Sodium 63.6 mls @ 99.983 mls/hr 04/11/21 14:00 04/13/21 14:39 Chloride IV Infused Q24H TJ Infusion Insulin Glargine 60 unit 04/11/21 09:00 04/14/21 08:08 Insulin Glargine,Hum.Rec.Anlog 100 Unit/Ml 10 Ml Vial SUBCUT Not Given DAILY [facility] Insulin Glargine 38 unit 04/10/21 21:00 04/13/21 22:00 Insulin Glargine,Hum.Rec.Anlog 100 Unit/Ml 10 Ml Vial SUBCUT 38 unit BEDTIME [facility] Administration Insulin Human Lispro 0 unit 04/10/21 16:30 04/14/21 12:17 Insulin Lispro 100 Unit/Ml 3 Ml Vial SUBCUT 2 unit QIDACHS [facility] Administration Protocol Lisinopril 5 mg 04/11/21 09:00 04/14/21 08:08 Lisinopril 5 Mg Tablet PO 5 mg DAILY [facility] Administration Protocol Magnesium Oxide 400 mg 04/10/21 21:00 04/14/21 08:08 Magnesium Oxide 400 Mg Tablet PO 400 mg BID TJ Administration Ondansetron HCl 4 mg 04/10/21 14:49 Ondansetron Hcl 4 Mg/2 Ml Vial IVPUSH Q8H PRN Nausea and Vomiting Polyethylene Glycol 17 gm 04/11/21 09:00 04/14/21 08:08 Polyethylene Glycol 3350 17 Gm Powd.Pack PO 17 gm DAILY TJ Administration Sodium Chloride 3 ml 04/10/21 16:00 04/14/21 08:04 0.9 % Sodium Chloride Flush 3 Ml Syringe IVFLUSH 3 ml QSHIFT [facility] Administration Home Medications Medication Instructions Recorded Confirmed Last Taken Type aspirin 81 mg tablet,delayed 81 mg PO DAILY 07/17/20 04/10/21 03/06/21 08:00 History release gabapentin 600 mg tablet 600 mg PO BID 07/17/20 04/10/21 04/10/21 History liraglutide 0.6 mg/0.1 mL (18 mg/3 1.8 mg SUBCUT DAILY 07/17/20 04/10/21 04/10/21 History mL) subcutaneous pen injector ([employer] 3-Chet) lisinopril 5 mg tablet 5 mg PO DAILY 07/17/20 04/10/21 04/10/21 History metformin 1,000 mg tablet 1,000 mg PO BID 07/17/20 04/10/21 04/10/21 History cholecalciferol (vitamin D3) 25 25 mcg PO DAILY 09/04/20 04/10/21 04/10/21 History mcg (1,000 unit) tablet atorvastatin 40 mg tablet 40 mg PO BEDTIME 10/09/20 04/10/21 04/09/21 History insulin degludec 100 unit/mL (3 55 unit SUBCUT BEDTIME 12/23/20 04/10/21 04/09/21 History mL) subcutaneous pen (Tresiba FlexTouch U-100 insulin) insulin degludec 100 unit/mL (3 85 unit SUBCUT DAILY 12/23/20 04/10/21 04/10/21 History mL) subcutaneous pen (Tresiba FlexTouch U-100 insulin) magnesium oxide 400 mg (241.3 mg 400 mg PO BID 03/07/21 04/10/21 04/10/21 History magnesium) tablet lancets 28 gauge (FreeStyle #100 ea 03/20/21 Unknown History Lancets) albuterol sulfate 90 mcg/actuation 2 puff INHALATION Q4-6H PRN 04/10/21 04/10/21 Unknown History aerosol inhaler apixaban 5 mg tablet (Eliquis) 1 tab PO Q12H 04/10/21 04/10/21 04/10/21 History sulfamethoxazole 800 1 tab PO BID 04/10/21 04/10/21 04/10/21 History mg-trimethoprim 160 mg tablet Physical Exam Vital Signs: Vital Signs: Last Vital Signs Temp 98.0 F 04/14/21 11:21 Pulse 66 04/14/21 11:21 Resp 19 04/14/21 11:21 BP 128/67 04/14/21 11:21 Pulse Ox 98 04/14/21 11:21 Body Mass Index 32.5 Const: General: cooperative, healthy appearing and comfortable Orientation/consciousness: oriented to person, oriented to place and oriented to time HENMT: Head: Yes normal to inspection Neck: Neck: Yes normal visual inspection Carotids: no bruits Chest: Chest palpation & inspection: normal inspection of the chest Resp: Effort & Inspection: normal respiratory effort and able to speak in complete sentences Auscultation: clear to auscultation bilaterally, no crackles, no rales, no rhonchi and no wheezes Cardio: Rate: regular rate Rhythm: regular rhythm Heart sounds: S1 normal heart sound present and S2 normal heart sound present Bruits: no carotid bruits Peripheral pulses: Peripheral pulses 2+ throughout GI: Inspection: Yes normal to inspection Skin: Wounds: amputation site (bilat healed; left side mild erythema) Hair: normal Neuro: General: oriented to person, oriented to place and oriented to time Cranial nerves: Yes CN's II-XII intact bilaterally and Yes Normal hearing present Cognition (Neuro): normal cognition Motor exam (neuro): 5/5 motor strength present throughout Extrem: Other: venous exam: No significant superficial varicosities or spider telangiectasias, minimal edema General: No clubbing, No cyanosis and No edema Psych: Appearance: grossly normal Mental Status: mental status grossly normal Speech and movement: Normal speech and movement present Results Labs Result diagrams: 04/14/21 12:11 04/11/21 06:34 Labs: Abnormal lab results 04/13/21 04/13/21 04/14/21 Range/Units 15:38 20:15 11:20 RBC (4.60-5.80) X10*6/uL Hgb (14.0-18.0) g/dl Hct (42-52) % POC Glucose 126 H 135 H 172 H (60-115) mg/dL 04/14/21 Range/Units 12:11 RBC 3.63 L (4.60-5.80) X10*6/uL Hgb 11.1 L (14.0-18.0) g/dl Hct 32.9 L (42-52) % POC Glucose (60-115) mg/dL Short CBC 04/14/21 Range/Units 12:11 WBC 7.7 (4.8-10.8) X10*3/uL Hgb 11.1 L (14.0-18.0) g/dl Hct 32.9 L (42-52) % Plt Count 267 (160-400) X10*3/uL Cardiac Enzymes 04/14/21 Range/Units 09:00 Total Creatine Kinase 117 D (38-174) U/L Urine 04/10/21 Range/Units 12:45 Urine Color YELLOW Urine Appearance CLEAR Urine pH 6.0 (5.0-8.0) Ur Specific [place] <= 1.005 (1.005-1.025) Urine Protein NEG (NEG-TRACE) MG/DL Urine Glucose (UA) NEG (NEG) MG/DL All other labs normal. Assessment and Plan (1) Osteomyelitis: Qualifiers: Laterality: left Osteomyelitis location: tibia Osteomyelitis type: unspecified type Qualified Code(s): M86.9 - Osteomyelitis, unspecified Status: Acute At the current time left BKA stump looks to be healed over. There is some mild overlying cellulitis and MRI proven osteomyelitis. At the current time I would like to treat this as conservatively as possible. Patient has been seen by Infectious Disease and will require 6 weeks of antibiotics. I hope this will resolve the issue. I did reinforce with him risk factor modification and the importance diabetes control. He will follow up with us on an as-needed basis. Thank you for allowing us to assist in his care. If there are any questions or concerns please do not hesitate to contact us. Procedures Date of Service Date of Service: 04/14/21
[2021-04-14 12:51] LABS: C Reactive Protein 0.33 mg/dL (< or = 0.50)
[2021-04-14 12:54] LABS: Alanine Aminotransferase 13 U/L (0-40); Albumin Level 3.6 g/dL (3.5-5.0); Alkaline Phosphatase 83 U/L (39-117); Anion Gap 15 (12-20); Aspartate Amino Transferase 14 U/L (5-37); Bilirubin Total 0.3 mg/dL (0.0-1.0); Blood Urea Nitrogen 22 mg/dL (9-16); Calcium 9.5 mg/dL (8.4-10.2); Carbon Dioxide 25 mmol/L (22-29); Chloride 104 mmol/L (96-108); Creatinine Clr Calc Pharmacy 107.5; Estimated Glomerular Filt Rate > 60; Glucose Random 171 mg/dL (60-115); Potassium 5.5 mmol/L (3.3-5.1); Sodium 138 mmol/L (135-145); Total Protein 6.8 g/dL (6.5-8.0)
[2021-04-14 13:15] LABS: Erythrocyte Sedimentation Rate 70 MM/HR (0-15)
--- NOTE | 2021-04-14 14:47 | MHC.CM.PN ---
Addendum entered by Krista Marie RN 04/14/21 15:44: AFTERNOON LABS DRAN AND PT'S K 5.5, NO PLAN FOR D/C TODAY. ANTICIPATE D/C TOMORROW. Original Note: CM ATTEMPTED TO CONTACT IR X TO DAY, THIS MORNING RADIOLOGY REPORTED PT WAS ON SCHEDULE FOR TADY AND TXFRD CM TO IR NURSE HOWEVER THER WAS NO ANSWER, CM CONTACTED RADIOLOGY AGAIN AND ASKED FOR IR NURSE WHO REPORTED PT WOULD BE DONE SHORTLY AND THAT WAS AT APPROXIMATELY 2PM, CM CONTACTED HOME [facility] WHO REPORTED THEY WILL NEED CONFIRMATION OF PICC LINE PRIOR TO FILLING SCRIPT FOR MED AND GAVE THIS CM DIRECTIONS FOR RADIOLOGY TO CALL IN PICC LINE INFO: [phone] PRESS 4 AND ASK FOR IRAIS. d/c plan: home w/resump of hvna & option care for iv abx
--- NOTE | 2021-04-14 15:26 | MHC.CLN ---
NUTRITION CONSULT PATIENT WITH REDNESS OF LEFT STUMP. NOT PRESSURE RELATED. DIET=DIABETIC 200O KCAL-APPROPRIATE. EATING USUALLY 100% AT MEALS. NO NEW NUTRITION INTERVENTIONS AT THIS TIME.
--- NOTE | 2021-04-14 16:12 | HO.PICC ---
PICC Line Insertion NPICC Diagnosis: OSTEOMYELITIS Indication: SKILLED NURSING IV ANTIBIOTICS Pertinent Labs: REVIEWED Technique: Following informed consent including risks, benefits and alternatives and using sterile technique including cap and mask, sterile gown, glove and drape, the RIGHT arm was prepped and draped in the usual sterile fashion of full barrier technique with CHG. Following completion of [place] Protocol the skin and soft tissues were anesthetized with 1% Lidocaine plain. Using ultrasound guidance, BASILIC vein access was obtained IN SINGLE ATTEMPT BY THIS RN. Over an 0.018 wire through peel-away sheath, a 4-CAMEROONIAN, SINGLE LUMEN, PASV PICC line was positioned. Catheter length is 43 CM internal length, 0 CM external length, for a total trimmed length of 43 CM. The procedure was performed in S-272. Tip verification was performed by Gabriel Aceves with [employer] 3CG. Tip located in SVC. Ultrasound was used to document vein patency and for needle entry. A formal ultrasound picture and cardiac rhythm strip was recorded. [employer] has released the line for use and it is currently dressed with a StatLock, Tegaderm, and CHG disc. Verification has been performed for blood return and line patency. Arm Circumference: 34.5 CM Equipment: [employer] POWERPICC SOLO Catheter Type: SINGLE LUMEN, PASV, 4-CAMEROONIAN Lot #: [id number]
[2021-04-14] MEDS: Sodium Zirconium Cyclosilicate 10 GM POWD.PACK PO ×2 (16:26→20:36)
[2021-04-14 16:37] LABS: Glucose, Whole Blood 218 mg/dL (60-115)
--- NOTE | 2021-04-14 17:11 | P.PNIM_ITS ---
Subjective Subjective Date of Service: 04/14/21 Interval History: for PICC today Denies pain No fever no GI symptoms Review of Systems Review of Systems: Yes all other systems are reviewed and are negative Physical Exam Vital Signs: Vital Signs: Last Vital Signs Temp 97.3 F 04/14/21 16:00 Pulse 67 04/14/21 16:00 Resp 17 04/14/21 16:00 BP 128/67 04/14/21 16:00 Pulse Ox 96 04/14/21 16:00 Body Mass Index 32.5 Gen: in no acute distress HEENT: sclera anicteric, moist mucus membranes Neck: supple Lungs: clear to auscultation bilaterally Heart: regular rate and rhythm, no murmurs Abd: soft, non-tender, non-distended Ext: BLE BKA stumps Skin: warm/well-perfused Neuro: alert and oriented x3, no focal findings Psych: appropriate affect Objective Data Current Medications Generic Name Dose Route Start Last Admin Trade Name Freq PRN Reason Stop Dose Admin Acetaminophen 650 mg 04/10/21 14:49 Acetaminophen 325 Mg Tablet PO Q6H PRN Pain, Mild (Pain Scale 1-3) Albuterol Sulfate 2 puff 04/10/21 14:49 Albuterol Sulfate 90 Mcg 8 Gm Inhaler INHALE Q4H PRN Shortness Of Breath Apixaban 5 mg 04/11/21 09:00 04/14/21 08:08 Apixaban 5 Mg Tablet PO 5 mg BID TJ Administration Aspirin 81 mg 04/11/21 09:00 04/14/21 08:08 Aspirin Enteric Coated 81 Mg Tablet. PO 81 mg DAILY TJ Administration Dextrose 25 gm 04/10/21 14:49 Dextrose 50 % 25 Gm/50 Ml Vial IVPUSH Q15M PRN per Hypoglycemia Standing Ord. Protocol Gabapentin 600 mg 04/10/21 21:00 04/14/21 08:08 Gabapentin 600 Mg Tablet PO 600 mg BID TJ Administration Glucose 15 gm 04/10/21 14:49 Glucose Gel 15 Gm Gel..Gram. PO Q15M PRN per Hypoglycemia Standing Ord. Protocol Daptomycin 680 mg/ Sodium 63.6 mls @ 99.983 mls/hr 04/11/21 14:00 04/14/21 16:27 Chloride IV 100 mls/hr Q24H TJ Administration Insulin Glargine 60 unit 04/11/21 09:00 04/14/21 08:08 Insulin Glargine,Hum.Rec.Anlog 100 Unit/Ml 10 Ml Vial SUBCUT Not Given DAILY [facility] Insulin Glargine 38 unit 04/10/21 21:00 04/13/21 22:00 Insulin Glargine,Hum.Rec.Anlog 100 Unit/Ml 10 Ml Vial SUBCUT 38 unit BEDTIME TJ Administration Insulin Human Lispro 0 unit 04/10/21 16:30 04/14/21 16:38 Insulin Lispro 100 Unit/Ml 3 Ml Vial SUBCUT 4 unit QIDACHS [facility] Administration Protocol Lisinopril 5 mg 04/11/21 09:00 04/14/21 08:08 Lisinopril 5 Mg Tablet PO 5 mg DAILY [facility] Administration Protocol Magnesium Oxide 400 mg 04/10/21 21:00 04/14/21 08:08 Magnesium Oxide 400 Mg Tablet PO 400 mg BID TJ Administration Ondansetron HCl 4 mg 04/10/21 14:49 Ondansetron Hcl 4 Mg/2 Ml Vial IVPUSH Q8H PRN Nausea and Vomiting Polyethylene Glycol 17 gm 04/11/21 09:00 04/14/21 08:08 Polyethylene Glycol 3350 17 Gm Powd.Pack PO 17 gm DAILY TJ Administration Sodium Chloride 3 ml 04/10/21 16:00 04/14/21 16:27 0.9 % Sodium Chloride Flush 3 Ml Syringe IVFLUSH 3 ml QSHIFT TJ Administration Sodium Zirconium Cyclosilicate 10 gm 04/14/21 15:00 04/14/21 16:26 Sodium Zirconium Cyclosilicate 10 Gm Powd.Pack PO 04/15/21 09:01 10 gm TID TJ Administration Labs CBC & Chem 7: 04/14/21 12:11 04/14/21 12:11 Labs: Laboratory Results - last 24 hr 04/13/21 04/14/21 04/14/21 20:15 07:14 09:00 MCV MCH MCHC RDW Plt Count MPV Absolute Nucleated RBC Nucleated RBC % (auto) ESR Anion Gap Estim Creat Clear Calc Estimated GFR POC Glucose 135 H 102 Random Glucose Calcium Total Bilirubin AST ALT Alkaline Phosphatase Total Creatine Kinase 117 D C-Reactive Protein Total Protein Albumin 04/14/21 04/14/21 04/14/21 11:20 12:11 12:11 MCV 90.6 MCH 30.6 MCHC 33.7 RDW 12.6 Plt Count 267 MPV 9.5 Absolute Nucleated RBC 0.000 Nucleated RBC % (auto) 0.0 ESR 70 H Anion Gap Estim Creat Clear Calc Estimated GFR POC Glucose 172 H Random Glucose Calcium Total Bilirubin AST ALT Alkaline Phosphatase Total Creatine Kinase C-Reactive Protein Total Protein Albumin 04/14/21 04/14/21 04/14/21 12:11 12:11 16:17 MCV MCH MCHC RDW Plt Count MPV Absolute Nucleated RBC Nucleated RBC % (auto) ESR Anion Gap 15 Estim Creat Clear Calc 107.5 Estimated GFR > 60 POC Glucose 218 H Random Glucose 171 H D Calcium 9.5 Total Bilirubin 0.3 AST 14 ALT 13 Alkaline Phosphatase 83 D Total Creatine Kinase C-Reactive Protein 0.33 Total Protein 6.8 Albumin 3.6 Assessment and Plan (1) Osteomyelitis: Status: Acute (2) Hyponatremia: Status: Acute Assessment and Plan: hospital d#5 61yo M with [id number] neuropathy, PVD, hx osteomyelitis s/p bilateral BKA admitted for L BKA stump osteomyelitis # cellulitis + osteomyelitis of L BKA stump - daptomycin d# [allergic to vancomycin], d/c statin, weekly labs - per Vascular Surgery- medical management, no operation needed # hyperK, mild - give Lokelma, recheck BMP in am # diarrhea - resolved, check C diff if recurs # hypoNa - resolved, Na normal now # DM2 - basal/bolus insulin # hx PE - continue apixaban # dispo - anticipate home with VNA tomorrow Quality Stroke Does the patient have a stroke diagnosis?: No VTE Prior VTE?: No VTE Risk Level:: Medical - moderate - high VTE Device Contraindication: Treatment Not Indicated VTE Drug Contraindication: N/A - Med Ordered
[2021-04-14 20:22] LABS: Glucose, Whole Blood 222 mg/dL (60-115)
[2021-04-14] MEDS: Insulin Glargine,Hum.rec.anlog 100 UNIT/ML 10 ML VIAL 38 UNIT SUBCUT (20:37)
[2021-04-14] MEDS: 0.9 % Sodium Chloride Flush 10 ML SYRINGE 5 ML IVFLUSH (22:36)
[2021-04-15 03:44] VITALS: BP 106/55; PULSE 59; RESP 16; TEMP 37.1; O2SAT 98
[2021-04-15 07:34] LABS: Glucose, Whole Blood 148 mg/dL (60-115)
[2021-04-15 07:39] VITALS: BP 127/76; PULSE 63; RESP 17; TEMP 36.6; O2SAT 95
[2021-04-15 07:50] LABS: Anion Gap 15 (12-20); Blood Urea Nitrogen 22 mg/dL (9-16); Carbon Dioxide 22 mmol/L (22-29); Chloride 103 mmol/L (96-108); Creatinine Clr Calc Pharmacy 118.6; Estimated Glomerular Filt Rate > 60; Glucose Random 167 mg/dL (60-115); Potassium 4.7 mmol/L (3.3-5.1); Sodium 135 mmol/L (135-145)
[2021-04-15] MEDS: Insulin Glargine,Hum.rec.anlog 100 UNIT/ML 10 ML VIAL 60 UNIT SUBCUT (07:52)
[2021-04-15] MEDS: Apixaban 5 MG TABLET PO (07:52)
[2021-04-15] MEDS: Aspirin Enteric Coated 81 MG TABLET.DR PO (07:52)
[2021-04-15] MEDS: Magnesium Oxide 400 MG TABLET PO (07:52)
[2021-04-15] MEDS: lisinopriL 5 MG TABLET PO (07:52)
[2021-04-15] MEDS: Gabapentin 600 MG TABLET PO (07:52)
[2021-04-15] MEDS: 0.9 % Sodium Chloride Flush 3 ML SYRINGE IVFLUSH (07:53)
[2021-04-15] MEDS: polyethylene glycoL 3350 17 GM POWD.PACK PO (07:53)
[2021-04-15] MEDS: Sodium Zirconium Cyclosilicate 10 GM POWD.PACK PO (07:53)
[2021-04-15] MEDS: 0.9 % Sodium Chloride Flush 10 ML SYRINGE 5 ML IVFLUSH (07:54)
--- NOTE | 2021-04-15 09:55 | W.MHC.F2F ---
Service Date Service Date: 04/15/21 Encounter Date of encounter: 04/15/21 Reasons for Services Reason for senior living: administration of IV, SQ, or IM injection and central line care Homebound: Leaving the home is medically contraindicated at this time without the asist of a device and/or another person due th the listed conditions above and below. Reason homebound: immunosuppression / infection risk Homebound supporting statement: IV daptomycin daily until 05/23/21 Discontinue atorvastatin while on daptomycin Certification: Based on the above findings, I certify that this patient is confined to the home and needs intermittent senior living care, physical therapy and/or speech therapy, or continues to need occupational therapy. The patient is under my care, and I have initiated the establishment of the plan of care. The patient will be followed by a physician who will periodically review the plan of care.
--- NOTE | 2021-04-15 10:05 | P.DS_ITS ---
DS: Providers Provider Date of Service: 04/15/21 Date of admission: 04/10/21 14:35 Date of discharge: 04/15/21 Primary care physician: Virginie Liao MD Consults: 04/10/21 11:59 Consult to Infectious Diseases Stat Consulting Provider: Freya Fleming Reason for consultation: OSTEO/MRSA Has provider been notified: Yes 04/10/21 14:49 Consult to General Surgery Routine Consulting Provider: Chuy Peng Reason for consultation: Osteomyelitis Has provider been notified: No Consult to Infectious Diseases Routine Consulting Provider: Freya Fleming Reason for consultation: osteo Has provider been notified: No 04/13/21 07:38 Consult to Vascular Surgery Routine Consulting Provider: Cameron Figueroa Reason for consultation: bka stump osteo DS: Diagnosis Discharge Diagnosis (1) Osteomyelitis: Status: Acute (2) Hyponatremia: Status: Acute DS: Medications Discharge Medications Home Medications: Home Medications Medication Instructions Recorded Confirmed aspirin 81 mg tablet,delayed 81 mg PO DAILY 07/17/20 04/10/21 release gabapentin 600 mg tablet 600 mg PO BID 07/17/20 04/10/21 liraglutide 0.6 mg/0.1 mL (18 mg/3 1.8 mg SUBCUT DAILY 07/17/20 04/10/21 mL) subcutaneous pen injector (Victoza 3-Chet) lisinopril 5 mg tablet 5 mg PO DAILY 07/17/20 04/10/21 metformin 1,000 mg tablet 1,000 mg PO BID 07/17/20 04/10/21 cholecalciferol (vitamin D3) 25 25 mcg PO DAILY 09/04/20 04/10/21 mcg (1,000 unit) tablet atorvastatin 40 mg tablet 40 mg PO BEDTIME 10/09/20 04/10/21 insulin degludec 100 unit/mL (3 55 unit SUBCUT BEDTIME 12/23/20 04/10/21 mL) subcutaneous pen (Tresiba FlexTouch U-100 insulin) insulin degludec 100 unit/mL (3 85 unit SUBCUT DAILY 12/23/20 04/10/21 mL) subcutaneous pen (Tresiba FlexTouch U-100 insulin) magnesium oxide 400 mg (241.3 mg 400 mg PO BID 03/07/21 04/10/21 magnesium) tablet lancets 28 gauge (FreeStyle #100 ea 03/20/21 Lancets) albuterol sulfate 90 mcg/actuation 2 puff INHALATION Q4-6H PRN 04/10/21 04/10/21 aerosol inhaler apixaban 5 mg tablet (Eliquis) 1 tab PO Q12H 04/10/21 04/10/21 Previous Rx's Medication Instructions Recorded polyethylene glycol 3350 17 gram 17 g PO DAILY #30 ea 01/07/21 oral powder packet daptomycin 500 mg intravenous 690 mg IV Q24H #37 ea 04/15/21 solution DS: Summary Hospital Course Hospital Course: from admission H+P by hospitalist Dede Diaz, 04/10/21: This is a 61-year-old male with history of diabetes, hypertension, MGUS, peripheral neuropathy, PVD, status post bilateral BKA, on Eliquis, sleep apnea who presents to the hospital with complaints of left stump swelling, redness, warmth, and pain.? Of note patient was discharged from the hospital on after being managed for cellulitis of left BKA as well as CIRILO, patient was discharged on doxycycline.? Patient reports that he completed his doxycycline and was feeling better up until 2-3 days after discharge when he started having swelling in his leg that progressively got worse.? Patient's PCP apparently refused to renew his doxycycline as per patient was taking it for too long and therefore was given Bactrim.? Patient also underwent MRI on Wednesday which showed osteomyelitis and therefore patient presented to the hospital. Patient denies any fever but has chills, no abdominal pain nausea or vomiting, no chest pain, no shortness of breath, no headache or change in vision, no urinary symptoms no numbness tingling. Temperature of 98.5?, heart rate of 83, respiratory rate of 18, blood pressure of 118/55, satting 98% on room air Labs reviewed show WBC count of 9.0, hemoglobin of 11.4 which is significantly improved from his previous, sodium 127 with a baseline around 136, BUN of 19, creatinine of 1.3 with a baseline of 0.9, lactic acid of 2.3, CRP of 0.89, ESR pending Patient is allergic to vancomycin, given 1 dose of daptomycin and will be admitted further management This 61 year-old man with type 2 diabetes mellitus complicated by neuropathy, peripheral vascular disease, and history of osteomyelitis, status-post bilateral BKA, was admitted for osteomyelitis of the left BKA stump. ID and Vascular Surgery were consulted. He was not bacteremic. He was started on daptomycin IV and PICC line was placed. Hyponatremia resolved with IV repletion. He was discharged home with VNA services for PICC line/home antibiotic management. He should follow up with Primary Care in 1 week and Infectious Diseases and Vascular Surgery in 2 weeks. Time Spent with Patient Time attestation: Total time spent providing and/or coordinating discharge services: Discharge coordination time: Greater than 30 minutes Quality: Stroke Does the patient have a stroke diagnosis?: No Physical Exam Vital Signs: Vital Signs: Last Vital Signs Temp 97.9 F 04/15/21 07:39 Pulse 63 04/15/21 07:39 Resp 17 04/15/21 07:39 BP 127/76 04/15/21 07:39 Pulse Ox 95 04/15/21 07:39 Body Mass Index 32.5 Gen: in no acute distress HEENT: sclera anicteric, moist mucus membranes Neck: supple Lungs: clear to auscultation bilaterally Heart: regular rate and rhythm, no murmurs Abd: soft, non-tender, non-distended Ext: BLE BKA stumps, RUE PICC Skin: warm/well-perfused Neuro: alert and oriented x3, no focal findings Psych: appropriate affect DS: Data Data Completed and Pending Completed studies during hospitalization [Text1]: Laboratory Results WBC 7.7 X10*3/uL (4.8-10.8) 04/14/21 12:11 RBC 3.63 X10*6/uL (4.60-5.80) L 04/14/21 12:11 Hgb 11.1 g/dl (14.0-18.0) L 04/14/21 12:11 Hct 32.9 % (42-52) L 04/14/21 12:11 MCV 90.6 fL (80-98) 04/14/21 12:11 MCH 30.6 pg (27.0-33.0) 04/14/21 12:11 MCHC 33.7 g/dl (31.0-36.0) 04/14/21 12:11 RDW 12.6 % (11.0-16.0) 04/14/21 12:11 Plt Count 267 X10*3/uL (160-400) 04/14/21 12:11 MPV 9.5 fL (9.4-12.4) 04/14/21 12:11 Immature Gran % (Auto) 1.4 % (0.0-0.4) H 04/11/21 06:34 Neut % (Auto) 48.0 % (45-73) 04/11/21 06:34 Lymph % (Auto) 34.0 % (20-40) 04/11/21 06:34 Chicot % (Auto) 10.3 % (2-11) 04/11/21 06:34 Eos % (Auto) 5.3 % (0-4) H 04/11/21 06:34 Baso % (Auto) 1.0 % (0-2) 04/11/21 06:34 Lymph # (Auto) 2.4 X10*3/uL (1.2-4.9) 04/11/21 06:34 Chicot # (Auto) 0.7 X10*3/uL (0.1-1.2) 04/11/21 06:34 Eos # (Auto) 0.4 X10*3/uL (0.0-0.4) 04/11/21 06:34 Baso # (Auto) 0.1 X10*3/uL (0.0-0.2) 04/11/21 06:34 Abs Immat Gran (auto) 0.10 X10*3/uL (0.00-0.03) H 04/11/21 06:34 Absolute Neuts (auto) 3.5 X10*3/uL (2.0-8.3) 04/11/21 06:34 Absolute Nucleated RBC 0.000 X10*3/uL (0.0-0.012) 04/14/21 12:11 Nucleated RBC % (auto) 0.0 /100WBC (0.0-0.2) 04/14/21 12:11 ESR 70 MM/HR (0-15) H 04/14/21 12:11 Sodium 135 mmol/L (135-145) 04/15/21 06:51 Potassium 4.7 mmol/L (3.3-5.1) 04/15/21 06:51 Chloride 103 mmol/L (96-108) 04/15/21 06:51 Carbon Dioxide 22 mmol/L (22-29) 04/15/21 06:51 Anion Gap 15 (12-20) 04/15/21 06:51 BUN 22 mg/dL (9-16) H 04/15/21 06:51 Creatinine 0.87 mg/dL (0.5-1.4) 04/15/21 06:51 Estim Creat Clear Calc 118.6 04/15/21 06:51 Estimated GFR > 60 04/15/21 06:51 POC Glucose 148 mg/dL (60-115) H 04/15/21 07:30 Random Glucose 167 mg/dL (60-115) H 04/15/21 06:51 Osmolality 282 mosm/kg (281-305) 04/10/21 15:01 Lactic Acid 2.3 mmol/L (0.5-2.0) H* 04/10/21 12:37 Lactic Acid Fup @ 2Hr 2.1 mmol/L (0.5-2.0) H* 04/10/21 15:01 Lactic Acid Fup @ 4Hr 1.4 mmol/L (0.5-2.0) 04/10/21 17:42 Calcium 9.0 mg/dL (8.4-10.2) 04/15/21 06:51 Total Bilirubin 0.3 mg/dL (0.0-1.0) 04/14/21 12:11 AST 14 U/L (5-37) 04/14/21 12:11 ALT 13 U/L (0-40) 04/14/21 12:11 Alkaline Phosphatase 83 U/L (39-117) D 04/14/21 12:11 Total Creatine Kinase 117 U/L (38-174) D 04/14/21 09:00 C-Reactive Protein 0.33 mg/dL (< or = 0.50) 04/14/21 12:11 Total Protein 6.8 g/dL (6.5-8.0) 04/14/21 12:11 Albumin 3.6 g/dL (3.5-5.0) 04/14/21 12:11 Urine Color YELLOW 04/10/21 12:45 Urine Appearance CLEAR 04/10/21 12:45 Urine pH 6.0 (5.0-8.0) 04/10/21 12:45 Ur Specific Vinson <= 1.005 (1.005-1.025) 04/10/21 12:45 Urine Protein NEG MG/DL (NEG-TRACE) 04/10/21 12:45 Urine Glucose (UA) NEG MG/DL (NEG) 04/10/21 12:45 Urine Ketones NEG MG/DL (NEG) 04/10/21 12:45 Urine Blood NEG (NEG) 04/10/21 12:45 Urine Nitrite NEG (NEG) 04/10/21 12:45 Ur Leukocyte Esterase NEG (NEG) 04/10/21 12:45 Urine Osmolality 215 mosm/kg (373-1093) L 04/10/21 19:41 Ur Random Sodium 58.0 mmol/L 04/10/21 19:41 Urine Creatinine 27.21 mg/dL 04/10/21 19:41 COVID-19 (JOSE) Negative (Negative) 04/10/21 12:45 COVID-19 Clin Com See Note 04/10/21 12:45 Labs on day of discharge: Laboratory Results - last 24 hr 04/14/21 04/14/21 04/14/21 11:20 12:11 12:11 WBC 7.7 RBC 3.63 L Hgb 11.1 L Hct 32.9 L MCV 90.6 MCH 30.6 MCHC 33.7 RDW 12.6 Plt Count 267 MPV 9.5 Absolute Nucleated RBC 0.000 Nucleated RBC % (auto) 0.0 ESR 70 H Sodium Potassium Chloride Carbon Dioxide Anion Gap BUN Creatinine Estim Creat Clear Calc Estimated GFR POC Glucose 172 H Random Glucose Calcium Total Bilirubin AST ALT Alkaline Phosphatase C-Reactive Protein Total Protein Albumin 04/14/21 04/14/21 04/14/21 12:11 12:11 16:17 WBC RBC Hgb Hct MCV MCH MCHC RDW Plt Count MPV Absolute Nucleated RBC Nucleated RBC % (auto) ESR Sodium 138 Potassium 5.5 H Chloride 104 Carbon Dioxide 25 Anion Gap 15 BUN 22 H Creatinine 0.96 Estim Creat Clear Calc 107.5 Estimated GFR > 60 POC Glucose 218 H Random Glucose 171 H D Calcium 9.5 Total Bilirubin 0.3 AST 14 ALT 13 Alkaline Phosphatase 83 D C-Reactive Protein 0.33 Total Protein 6.8 Albumin 3.6 08/04/15/21 04/15/21 20:11 06:51 07:30 WBC RBC Hgb Hct MCV MCH MCHC RDW Plt Count MPV Absolute Nucleated RBC Nucleated RBC % (auto) ESR Sodium 135 Potassium 4.7 Chloride 103 Carbon Dioxide 22 Anion Gap 15 BUN 22 H Creatinine 0.87 Estim Creat Clear Calc 118.6 Estimated GFR > 60 POC Glucose 222 H 148 H Random Glucose 167 H Calcium 9.0 Total Bilirubin AST ALT Alkaline Phosphatase C-Reactive Protein Total Protein Albumin Preliminary micro results at discharge 04/10/21 12:45 Blood Culture - Preliminary Blood - Venous No growth after 48 hours. 04/10/21 12:37 Blood Culture - Preliminary Blood - Venous No growth after 48 hours. Discharge Plan Discharge Patient Disposition: Home Health Service Discharge Diagnosis: osteomyelitis of left BKA stump Referrals: Freya Fleming MD [Physician] - 2 Weeks Virginie Liao MD [Primary Care Provider] - 1 Week Cameron Figueroa MD [Physician] - 2 Weeks Discharge Medications: New daptomycin 500 mg recon soln 690 mg IV Q24H Qty: 37 RF: 0 Continued Eliquis 5 mg tablet 1 tab PO Q12H RF: 0 albuterol sulfate 90 mcg/actuation Hfa Aerosol Inhaler 2 puff INHALATION Q4-6H PRN (Reason: Shortness Of Breath) RF: 0 gabapentin 600 mg tablet 600 mg PO BID RF: 0 aspirin 81 mg tablet,delayed release (DR/EC) 81 mg PO DAILY RF: 0 metformin 1,000 mg tablet 1,000 mg PO BID RF: 0 lisinopril 5 mg tablet 5 mg PO DAILY RF: 0 Victoza 3-Chet 0.6 mg/0.1 mL (18 mg/3 mL) pen injector 1.8 mg subcut DAILY RF: 0 cholecalciferol (vitamin D3) 25 mcg (1,000 unit) tablet 25 mcg PO DAILY RF: 0 Tresiba FlexTouch U-100 100 unit/mL (3 mL) insulin pen 55 unit subcut BEDTIME RF: 0 Tresiba FlexTouch U-100 100 unit/mL (3 mL) insulin pen 85 unit subcut DAILY RF: 0 polyethylene glycol 3350 17 gram Powder In Packet 17 g PO DAILY Qty: 30 RF: 0 magnesium oxide 400 mg (241.3 mg magnesium) tablet 400 mg PO BID RF: 0 Held atorvastatin 40 mg tablet 40 mg PO BEDTIME RF: 0 Hold Instructions: Resume on 05/24/21. hold while on daptomycin Discontinued sulfamethoxazole-trimethoprim 800-160 mg tablet 1 tab PO BID RF: 0 Discharge Orders: Discharge Order (Routine); Ordered 04/15/21 Ordered By: Tyrell Gomez Diet: advance to usual diet and diabetic diet Activity on Discharge: wheelchair Stand Alone Forms: Patient Portal Discharge page Care Plan Goals: resolution of infection Health Concerns: osteomyelitis of left BKA stump Plan of Treatment: IV daptomycin 690 mg daily until 05/23/21 hold atorvastatin while on daptomycin weekly labs while on daptomycin: CBCd, CMP, CPK, ESR, CRP follow up in 1 week with your primary care doctor follow up in 2 weeks with infectious disease specialist follow up in 2 weeks with vascular surgeon Assessment: as above Patient Instructions: How to Care for Your PICC (Peripherally Inserted Central Catheter) (DC)
--- NOTE | 2021-04-15 10:52 | MHC.CM.PN ---
Addendum entered by Marlin Castro 04/15/21 10:56: PT IS SET TO DC, CM JUST AWAITING RESPONSE FROM [facility] TO CONFIRM WHEN AND BY WHAT METHOD SHE PLANS TO PROVIDE PTS TEACHING. Original Note: PT IS CLEARED TO DC HOME TODAY WITH [facility] TO PROVIDE ANTIBIOTICS AND SUPPLIES AND RESUMPTION OF [facility] [facility]. PICC LINE VERIFICATION, FLUSH ORDERS AND DC SUMMARY SENT TO HI AND VN AGENCIES. PT WILL NEED BLS TRANSPORT WHICH IS SCHEDULED FOR 1215 FOLLOWING HIS DAILY DOSE OF ABX [facility] WILL DELIVER TOMORROW.
[2021-04-15 11:43] LABS: Glucose, Whole Blood 187 mg/dL (60-115)
== END 2021-04-15 12:31 | disposition home health service (06) | DRG 565 ==
LOC: HO.ED 13:44 → HO.EDOVER 14:52 → HO.S3 19:51
PROVIDERS: Hospitalist; Physician Assistant; Admitting Provider Internal Medicine; Emergency Provider Emergency Medicine; PCP Internal Medicine; Visit Provider Family Medicine
DX: T87.44 Infection of amputation stump, left lower extremity (principal); M86.9 Osteomyelitis, unspecified; L03.116 Cellulitis of left lower limb; N17.9 Acute kidney failure, unspecified; E87.1 Hypo-osmolality and hyponatremia; K52.1 Toxic gastroenteritis and colitis; E11.69 Type 2 diabetes mellitus with other specified complication; E78.5 Hyperlipidemia, unspecified; J44.9 Chronic obstructive pulmonary disease, unspecified; E66.9 Obesity, unspecified; Z68.32 Body mass index [BMI] 32.0-32.9, adult; T36.95XA Adverse effect of unspecified systemic antibiotic, initial encounter; Y92.239 Unspecified place in hospital as the place of occurrence of the external cause; B95.62 Methicillin resistant Staphylococcus aureus infection as the cause of diseases classified elsewhere; E87.5 Hyperkalemia; I10 Essential (primary) hypertension; Z20.822 Contact with and (suspected) exposure to COVID-19; Z87.891 Personal history of nicotine dependence; Z86.711 Personal history of pulmonary embolism; Z79.82 Long term (current) use of aspirin; Z89.512 Acquired absence of left leg below knee; Z89.511 Acquired absence of right leg below knee; Z79.4 Long term (current) use of insulin; Z79.01 Long term (current) use of anticoagulants; Z79.899 Other long term (current) drug therapy
CPT/HCPCS: 36415; 36573; 80048; 80053; 81003; 82550; 82947; 83605; 83930; 83935; 84300; 85025; 85027; 85652; 86140; 87040; 87635; 96361; 96365; 96367; 96375; 99285; C1751; J0878; J2543

== ENCOUNTER 2021-04-21 | Outpatient (REF) | payer OTHER, SELFPAY ==
[2021-04-21 14:01] LABS: MANUAL DIFF FLAG NO
[2021-04-21 14:02] LABS: Basophils Percent Auto 0.6 % (0-2); Eosinophils Absolute Auto 0.3 X10*3/uL (0.0-0.4); Eosinophils Percent Auto 3.5 % (0-4); Hematocrit 36.8 % (42-52); Hemoglobin 12.6 g/dl (14.0-18.0); Imm Gran Abs Auto 0.03 X10*3/uL (0.00-0.03); Imm Gran Pct Auto 0.4 % (0.0-0.4); Lymphocytes Absolute Auto 2.6 X10*3/uL (1.2-4.9); Lymphocytes Percent Auto 36.4 % (20-40); Mean Corpuscular HGB Conc 34.2 g/dl (31.0-36.0); Mean Corpuscular Hemoglobin 30.7 pg (27.0-33.0); Mean Corpuscular Volume 89.8 fL (80-98); Mean Platelet Volume 10.7 fL (9.4-12.4); Monocytes Absolute Auto 0.7 X10*3/uL (0.1-1.2); Neutrophils Absolute Auto 3.6 X10*3/uL (2.0-8.3); Neutrophils Percent Auto 50.1 % (45-73); Platelet Count 254 X10*3/uL (160-400); Red Cell Distribution Width 12.9 % (11.0-16.0); White Blood Count 7.2 X10*3/uL (4.8-10.8)
[2021-04-21 14:41] LABS: Alanine Aminotransferase 20 U/L (0-40); Albumin Level 4.1 g/dL (3.5-5.0); Alkaline Phosphatase 98 U/L (39-117); Anion Gap 19 (12-20); Aspartate Amino Transferase 19 U/L (5-37); Bilirubin Total 0.6 mg/dL (0.0-1.0); Blood Urea Nitrogen 25 mg/dL (9-16); C Reactive Protein 0.28 mg/dL (< or = 0.50); Calcium 9.7 mg/dL (8.4-10.2); Carbon Dioxide 21 mmol/L (22-29); Chloride 99 mmol/L (96-108); Estimated Glomerular Filt Rate > 60; Glucose Random 140 mg/dL (60-115); Potassium 5.2 mmol/L (3.3-5.1); Sodium 134 mmol/L (135-145); Total Protein 7.6 g/dL (6.5-8.0)
[2021-04-21 15:31] LABS: Erythrocyte Sedimentation Rate 56 MM/HR (0-15)
== END 2021-04-21 00:01 | disposition home or self-care (01) ==
LOC: HO.HMGCLNP
PROVIDERS: Visit Provider Internal Medicine
DX: E11.9 Type 2 diabetes mellitus without complications (principal); Z79.899 Other long term (current) drug therapy
CPT/HCPCS: 80053; 82550; 85025; 85652; 86140

== ENCOUNTER 2021-04-28 11:03 | Outpatient (REF) | payer OTHER, SELFPAY ==
[2021-04-28 11:08] LABS: MANUAL DIFF FLAG NO
[2021-04-28 11:11] LABS: Basophils Percent Auto 0.7 % (0-2); Eosinophils Absolute Auto 0.5 X10*3/uL (0.0-0.4); Eosinophils Percent Auto 7.7 % (0-4); Hematocrit 33.8 % (42-52); Hemoglobin 11.7 g/dl (14.0-18.0); Imm Gran Abs Auto 0.01 X10*3/uL (0.00-0.03); Imm Gran Pct Auto 0.2 % (0.0-0.4); Lymphocytes Absolute Auto 1.8 X10*3/uL (1.2-4.9); Lymphocytes Percent Auto 31.5 % (20-40); Mean Corpuscular HGB Conc 34.6 g/dl (31.0-36.0); Mean Corpuscular Hemoglobin 31.1 pg (27.0-33.0); Mean Corpuscular Volume 89.9 fL (80-98); Mean Platelet Volume 10.8 fL (9.4-12.4); Monocytes Absolute Auto 0.5 X10*3/uL (0.1-1.2); Monocytes Percent Auto 9.3 % (2-11); Neutrophils Absolute Auto 2.9 X10*3/uL (2.0-8.3); Neutrophils Percent Auto 50.6 % (45-73); Platelet Count 200 X10*3/uL (160-400); Red Blood Count 3.76 X10*6/uL (4.60-5.80); Red Cell Distribution Width 12.8 % (11.0-16.0); White Blood Count 5.8 X10*3/uL (4.8-10.8)
[2021-04-28 11:29] LABS: Alanine Aminotransferase 16 U/L (0-40); Albumin Level 3.9 g/dL (3.5-5.0); Alkaline Phosphatase 107 U/L (39-117); Anion Gap 15 (12-20); Aspartate Amino Transferase 16 U/L (5-37); Bilirubin Total 0.3 mg/dL (0.0-1.0); Blood Urea Nitrogen 21 mg/dL (9-16); C Reactive Protein 0.22 mg/dL (< or = 0.50); Calcium 9.5 mg/dL (8.4-10.2); Carbon Dioxide 22 mmol/L (22-29); Chloride 102 mmol/L (96-108); Estimated Glomerular Filt Rate > 60; Glucose Random 213 mg/dL (60-115); Potassium 4.7 mmol/L (3.3-5.1); Sodium 134 mmol/L (135-145); Total Protein 6.9 g/dL (6.5-8.0)
[2021-04-28 11:56] LABS: Erythrocyte Sedimentation Rate 44 MM/HR (0-15)
== END 2021-04-28 11:04 | disposition home or self-care (01) ==
LOC: HO.HVNA 11:03
PROVIDERS: Visit Provider Internal Medicine
DX: E11.69 Type 2 diabetes mellitus with other specified complication (principal); T87.44 Infection of amputation stump, left lower extremity
CPT/HCPCS: 36415; 80053; 82550; 85025; 85652; 86140

== ENCOUNTER 2021-05-06 11:09 | Outpatient (REF) | payer OTHER, MEDICAID, SELFPAY | END 2021-05-06 11:10 | disposition home or self-care (01) | LOC: HO.LAB 11:09 | PROVIDERS: PCP Internal Medicine; Visit Provider Family Medicine | DX: M86.9 Osteomyelitis, unspecified (principal); A49.02 Methicillin resistant Staphylococcus aureus infection, unspecified site | CPT/HCPCS: 99212 ==

== ENCOUNTER 2021-05-12 12:58 | Outpatient (REF) | payer MEDICARE, SELFPAY ==
[2021-05-12 14:08] LABS: MANUAL DIFF FLAG NO
[2021-05-12 14:11] LABS: Basophils Absolute Auto 0.1 X10*3/uL (0.0-0.2); Basophils Percent Auto 0.8 % (0-2); Eosinophils Absolute Auto 0.2 X10*3/uL (0.0-0.4); Eosinophils Percent Auto 2.5 % (0-4); Hematocrit 35.8 % (42-52); Hemoglobin 12.4 g/dl (14.0-18.0); Imm Gran Abs Auto 0.08 X10*3/uL (0.00-0.03); Imm Gran Pct Auto 1.1 % (0.0-0.4); Lymphocytes Absolute Auto 2.4 X10*3/uL (1.2-4.9); Lymphocytes Percent Auto 34.1 % (20-40); Mean Corpuscular HGB Conc 34.6 g/dl (31.0-36.0); Mean Corpuscular Hemoglobin 30.9 pg (27.0-33.0); Mean Corpuscular Volume 89.3 fL (80-98); Monocytes Absolute Auto 0.7 X10*3/uL (0.1-1.2); Monocytes Percent Auto 9.2 % (2-11); Neutrophils Absolute Auto 3.7 X10*3/uL (2.0-8.3); Neutrophils Percent Auto 52.3 % (45-73); Platelet Count 229 X10*3/uL (160-400); Red Blood Count 4.01 X10*6/uL (4.60-5.80); Red Cell Distribution Width 12.4 % (11.0-16.0); White Blood Count 7.1 X10*3/uL (4.8-10.8)
[2021-05-12 14:59] LABS: Erythrocyte Sedimentation Rate 29 MM/HR (0-15)
[2021-05-12 15:06] LABS: Alanine Aminotransferase 20 U/L (0-40); Albumin Level 4.2 g/dL (3.5-5.0); Alkaline Phosphatase 102 U/L (39-117); Anion Gap 15 (12-20); Aspartate Amino Transferase 19 U/L (5-37); Bilirubin Total 0.6 mg/dL (0.0-1.0); Blood Urea Nitrogen 14 mg/dL (9-16); C Reactive Protein 0.12 mg/dL (< or = 0.50); Calcium 9.3 mg/dL (8.4-10.2); Carbon Dioxide 22 mmol/L (22-29); Chloride 97 mmol/L (96-108); Estimated Glomerular Filt Rate > 60; Glucose Random 275 mg/dL (60-115); Potassium 5.4 mmol/L (3.3-5.1); Sodium 129 mmol/L (135-145); Total Protein 7.4 g/dL (6.5-8.0)
== END 2021-05-12 12:59 | disposition home or self-care (01) ==
LOC: HO.HVNA 12:58
PROVIDERS: Visit Provider Internal Medicine
DX: M86.9 Osteomyelitis, unspecified (principal)
CPT/HCPCS: 36415; 80053; 82550; 85025; 85652; 86140

== ENCOUNTER 2021-05-19 17:21 | Outpatient (REF) | payer OTHER, SELFPAY ==
[2021-05-19 17:24] LABS: MANUAL DIFF FLAG NO
[2021-05-19 17:28] LABS: Basophils Absolute Auto 0.1 X10*3/uL (0.0-0.2); Basophils Percent Auto 0.7 % (0-2); Eosinophils Absolute Auto 0.2 X10*3/uL (0.0-0.4); Eosinophils Percent Auto 2.8 % (0-4); Hematocrit 34.4 % (42-52); Hemoglobin 11.5 g/dl (14.0-18.0); Imm Gran Abs Auto 0.04 X10*3/uL (0.00-0.03); Imm Gran Pct Auto 0.6 % (0.0-0.4); Lymphocytes Absolute Auto 2.6 X10*3/uL (1.2-4.9); Lymphocytes Percent Auto 37.3 % (20-40); Mean Corpuscular HGB Conc 33.4 g/dl (31.0-36.0); Mean Corpuscular Hemoglobin 30.7 pg (27.0-33.0); Mean Platelet Volume 11.3 fL (9.4-12.4); Monocytes Absolute Auto 0.6 X10*3/uL (0.1-1.2); Monocytes Percent Auto 9.3 % (2-11); Neutrophils Absolute Auto 3.4 X10*3/uL (2.0-8.3); Neutrophils Percent Auto 49.3 % (45-73); Platelet Count 195 X10*3/uL (160-400); Red Blood Count 3.74 X10*6/uL (4.60-5.80); Red Cell Distribution Width 13.2 % (11.0-16.0); White Blood Count 6.9 X10*3/uL (4.8-10.8)
[2021-05-19 17:47] LABS: Alanine Aminotransferase 15 U/L (0-40); Alkaline Phosphatase 98 U/L (39-117); Anion Gap 18 (12-20); Aspartate Amino Transferase 14 U/L (5-37); Bilirubin Total 0.5 mg/dL (0.0-1.0); Blood Urea Nitrogen 17 mg/dL (9-16); C Reactive Protein 0.21 mg/dL (< or = 0.50); Calcium 9.1 mg/dL (8.4-10.2); Carbon Dioxide 20 mmol/L (22-29); Chloride 99 mmol/L (96-108); Estimated Glomerular Filt Rate > 60; Glucose Random 268 mg/dL (60-115); Potassium 4.9 mmol/L (3.3-5.1); Sodium 132 mmol/L (135-145); Total Protein 6.9 g/dL (6.5-8.0)
[2021-05-19 18:18] LABS: Erythrocyte Sedimentation Rate 25 MM/HR (0-15)
== END 2021-05-19 17:22 | disposition home or self-care (01) ==
LOC: HO.HVNA 17:21
PROVIDERS: Visit Provider Internal Medicine
DX: M86.9 Osteomyelitis, unspecified (principal)
CPT/HCPCS: 36415; 80053; 82550; 85025; 85652; 86140

== ENCOUNTER 2021-05-21 08:39 | Day surgery (SDC) | payer OTHER, SELFPAY ==
--- NOTE | 2021-05-20 10:22 | HO.ANESPROP2 ---
Documented by User: Alize Lester NP 05/20/21 10:23 HPI - Anesthesia Eval Consult details Narrative: 61yo M for Colonoscopy s/p toe amp with MAC 12/2020 [facility] Active Problems Active Problems: All Active Problems (Updated 05/15/21 @ 16:03 by Chika Still, FAITH) Generalized weakness (Acute) Non-healing amputation site (Acute) Anemia (Acute) Constipation (Acute) MRSA infection (Acute) Hyperkalemia (Acute) S/P bilateral below knee amputation (Acute) Bipolar disorder (Acute) Latent tuberculosis (Acute) Lumbar degenerative disc disease (Acute) Peripheral arterial disease (Acute) Tubular adenoma of colon (Acute) Family history of colon cancer (Acute) Osteomyelitis (Acute) Sleep apnea (Acute) Past Medical History Medical History CIRILO (acute kidney injury) Amputated great toe of right foot Anxiety and depression Back pain COPD (chronic obstructive pulmonary disease) Diabetes Diabetic foot infection Drug-induced thrombocytopenia Hx MRSA infection Hyperlipidemia Hypertension Hyponatremia IDDM (insulin dependent diabetes mellitus) MGUS (monoclonal gammopathy of unknown significance) Neck pain Obesity Peripheral neuropathy Psychiatric diagnosis PVD (peripheral vascular disease) Sleep apnea Family History Family History Other No history of heart disease Surgical History Surgical History H/O abdominoplasty H/O colonoscopy Hx of angioplasty Hx of appendectomy Hx of foot surgery Hx of tonsillectomy Hx of umbilical hernia repair S/P anal fissurectomy S/P BKA (below knee amputation) bilateral Status post below-knee amputation Social History Social History Household Members: None Housing: Apartment Do you presently have visiting nurse or other home services: Yes ([facility]) Alcohol intake: never Patient Tobacco Use Status: Former Tobacco user Quit Date: 30 yrs ago Tobacco use type: Cigarette Second Hand Smoke Exposure: No Use of substances other than those prescribed or required for medical reasons: No Are you DNR?: No Advance Directives: Yes Advance Directives on File: Yes Advance Directives Date on File: 09/27/20 service: Yes Current occupational status: disabled Meds Allergies Allergy/AdvReac Type Severity Reaction Status Date / Time vancomycin AdvReac Severe thrombocyto Verified 03/28/21 08:36 penia Home Medications Medication Instructions Recorded Confirmed Last Taken Type aspirin 81 mg tablet,delayed 81 mg PO DAILY 07/17/20 05/15/21 03/06/21 08:00 History release gabapentin 600 mg tablet 600 mg PO BID 07/17/20 05/15/21 04/10/21 History liraglutide 0.6 mg/0.1 mL (18 mg/3 1.8 mg SUBCUT DAILY 07/17/20 05/15/21 04/10/21 History mL) subcutaneous pen injector ([employer]za 3-Chet) lisinopril 5 mg tablet 5 mg PO DAILY 07/17/20 05/15/21 04/10/21 History metformin 1,000 mg tablet 1,000 mg PO BID 07/17/20 05/15/21 04/10/21 History cholecalciferol (vitamin D3) 25 25 mcg PO DAILY 09/04/20 05/15/21 04/10/21 History mcg (1,000 unit) tablet atorvastatin 40 mg tablet 40 mg PO BEDTIME 10/09/20 05/15/21 04/09/21 History insulin degludec 100 unit/mL (3 55 unit SUBCUT BEDTIME 12/23/20 05/15/21 04/09/21 History mL) subcutaneous pen (Tresiba FlexTouch U-100 insulin) insulin degludec 100 unit/mL (3 85 unit SUBCUT DAILY 12/23/20 05/15/21 04/10/21 History mL) subcutaneous pen (Tresiba FlexTouch U-100 insulin) magnesium oxide 400 mg (241.3 mg 400 mg PO BID 03/07/21 05/15/21 04/10/21 History magnesium) tablet lancets 28 gauge (FreeStyle #100 ea 03/20/21 Unknown History Lancets) albuterol sulfate 90 mcg/actuation 2 puff INHALATION Q4-6H PRN 04/10/21 05/15/21 Unknown History aerosol inhaler apixaban 5 mg tablet (Eliquis) 1 tab PO Q12H 04/10/21 05/15/21 04/10/21 History Exam Exam Date and Time: May 20, 2021 1022 Pertinent Lab Results Pertinent Lab Results: Laboratory Tests 05/19/21 05/19/21 14:00 14:00 WBC 6.9 Hgb 11.5 L Hct 34.4 L Plt Count 195 Sodium 132 L Potassium 4.9 Chloride 99 Carbon Dioxide 20 L BUN 17 H Creatinine 1.01 Narrative Narrative: EKG 02/2021 Vent. Rate : 099 BPM ? ? Atrial Rate : 099 BPM ?? P-R Int : 178 ms? QRS Dur : 070 ms ? ? QT Int : 340 ms ? ? ? P-R-T Axes : 100 -03 037 degrees ?? QTc Int : 436 ms ? Normal sinus rhythm Normal ECG When compared with ECG of 31-OCT-2020 13:15, No significant change was found Assessment and Plan Assessment Anesthesia Assessment: Chart Reviewed Documented by User: Bety Campbell MD 05/21/21 09:13 [facility] Past Medical History Medical History CIRILO (acute kidney injury) Amputated great toe of right foot Anxiety and depression Back pain COPD (chronic obstructive pulmonary disease) Diabetes Diabetic foot infection Drug-induced thrombocytopenia Hx MRSA infection Hyperlipidemia Hypertension Hyponatremia IDDM (insulin dependent diabetes mellitus) MGUS (monoclonal gammopathy of unknown significance) Neck pain Obesity Peripheral neuropathy Psychiatric diagnosis PVD (peripheral vascular disease) Sleep apnea Family History Family History Other No history of heart disease Family history of problems with anesthesia: No Surgical History Surgical History H/O abdominoplasty H/O colonoscopy Hx of angioplasty Hx of appendectomy Hx of foot surgery Hx of tonsillectomy Hx of umbilical hernia repair S/P anal fissurectomy S/P BKA (below knee amputation) bilateral Status post below-knee amputation History of Problems with Anesthesia: No Social History Social History Household Members: None Housing: Apartment Do you presently have visiting nurse or other home services: Yes ([facility] care- [facility]) Alcohol intake: never Patient Tobacco Use Status: Former Tobacco user Quit Date: 30 yrs ago Tobacco use type: Cigarette Second Hand Smoke Exposure: No Use of substances other than those prescribed or required for medical reasons: No Are you DNR?: No Advance Directives: Yes Advance Directives on File: Yes Advance Directives Date on File: 09/27/20 service: Yes Current occupational status: disabled Meds Allergies Allergy/AdvReac Type Severity Reaction Status Date / Time vancomycin AdvReac Severe thrombocyto Verified 03/28/21 08:36 penia Home Medications Medication Instructions Recorded Confirmed Last Taken Type aspirin 81 mg tablet,delayed 81 mg PO DAILY 07/17/20 05/15/21 03/06/21 08:00 History release gabapentin 600 mg tablet 600 mg PO BID 07/17/20 05/15/21 04/10/21 History liraglutide 0.6 mg/0.1 mL (18 mg/3 1.8 mg SUBCUT DAILY 07/17/20 05/15/21 04/10/21 History mL) subcutaneous pen injector ([employer] 3-Chet) lisinopril 5 mg tablet 5 mg PO DAILY 07/17/20 05/15/21 04/10/21 History metformin 1,000 mg tablet 1,000 mg PO BID 07/17/20 05/15/21 04/10/21 History cholecalciferol (vitamin D3) 25 25 mcg PO DAILY 09/04/20 05/15/21 04/10/21 History mcg (1,000 unit) tablet atorvastatin 40 mg tablet 40 mg PO BEDTIME 10/09/20 05/15/21 04/09/21 History insulin degludec 100 unit/mL (3 55 unit SUBCUT BEDTIME 12/23/20 05/15/21 04/09/21 History mL) subcutaneous pen (Tresiba FlexTouch U-100 insulin) insulin degludec 100 unit/mL (3 85 unit SUBCUT DAILY 12/23/20 05/15/21 04/10/21 History mL) subcutaneous pen (Tresiba FlexTouch U-100 insulin) magnesium oxide 400 mg (241.3 mg 400 mg PO BID 03/07/21 05/15/21 04/10/21 History magnesium) tablet lancets 28 gauge (FreeStyle #100 ea 03/20/21 Unknown History Lancets) albuterol sulfate 90 mcg/actuation 2 puff INHALATION Q4-6H PRN 04/10/21 05/15/21 Unknown History aerosol inhaler apixaban 5 mg tablet (Eliquis) 1 tab PO Q12H 04/10/21 05/15/21 04/10/21 History Exam Airway Mallampati Class: II TM Dist: >3cm Neck ROM: Full Loose/Missing/Broken Teeth: Yes (Missing top left) Heart: RRR Lungs: CTAB Assessment and Plan Assessment Anesthesia Assessment: Anesthesia Plan Discussed Final Anesthetic Review Family History of Problems with Anesthesia: No History of Problems with Anesthesia: No NPO: Yes ASA Class: III Final Preanesthetic Review: No Changes in Pt Med Stat, Meds/Allgs Chart Reviewed, Consent Obtained/Reviewed and Anes Risks/Benef Reviewed Patient Risk: Intermediate Procedure Risk: Low Assessment/Block/Sedation in SS: Assess/Block/Sedation-SS Anesthetic Plan Anesthetic Plan: MAC: Disposition: Standard PACU
[2021-05-21 09:01] VITALS: BMI 39.6
[2021-05-21 09:02] LABS: Glucose, Whole Blood 217 mg/dL (60-115)
--- NOTE | 2021-05-21 09:05 | MHC.SHP ---
Pre-Procedural Eval Section A Date of Service: 05/21/21 Section B Chief Complaint: tubular adenoma Relevant Family History (Specify if Yes): Yes Relevant Social History: None Present Medications: see Short Stay Collaborative assessment Medical History: Significant History (CIRILO (acute kidney injury) Amputated great toe of right foot Anxiety and depression Back pain COPD (chronic obstructive pulmonary disease) Diabetes Diabetic foot infection Drug-induced thrombocytopenia Hx MRSA infection Hyperlipidemia Hypertension Hyponatremia IDDM (insulin dependent diabetes mellitu) History of Previous Operations: Relevant previous surgery/procedure and date(s) (H/O abdominoplasty H/O colonoscopy Hx of angioplasty Hx of appendectomy Hx of foot surgery Hx of tonsillectomy Hx of umbilical hernia repair S/P anal fissurectomy S/P BKA (below knee amputation) bilateral Status post below-knee amputation) Allergies: Allergies Allergy/AdvReac Type Severity Reaction Status Date / Time vancomycin AdvReac Severe thrombocyto Verified 03/28/21 08:36 penia Review of Systems Sugical H&P ROS: Negative: Constitution, Cardiovascular, Respiratory, Neurological, Psychiatric, Hem-Onc, Allergic/Immunologic, Gastrointestinal, Genitourinary, Musculoskeletal, Integumentary, Endocrine and Eyes/Ears/Nose/Throat Exam Surgical H&P Exam: Normal: HEENT, Normal: Heart, Normal: Lungs, Normal: Abdomen, Normal: Skin and Normal: Neurological and Significant Findings: Extremities (amputee) Plan Diagnosis/Plan: Unchanged I have reviewed the history and physical and performed a pertinent physical examination on my patient. No changes have occurred unless specified.
[2021-05-21 09:46] VITALS: BP 116/78; PULSE 96; RESP 16; TEMP 36.9; O2SAT 97
[2021-05-21] MEDS: Lactated Ringers 1,000 ML 100 ML IVCONT (09:48)
[2021-05-21] MEDS: Sodium Phosphate,Mono-Dibasic 133 ML ENEMA PR ×2 (09:48→10:04)
[2021-05-21 10:57] VITALS: BP 84/50; PULSE 71; RESP 16; TEMP 36.2; O2SAT 97
--- NOTE | 2021-05-21 10:58 | PM.OP ---
Brief Operative Note Date of Service: 05/21/21 Pre-op diagnosis: screening Post-op diagnosis: same Procedure: see op note Surgeon: Jennifer Cantu MD Anesthesia: MAC Was an Environmental Educator used for this Procedure?: No Estimated blood loss (mL): 0 Condition: stable Disposition: PACU
--- NOTE | 2021-05-21 11:00 | W.PM.OPN ---
Operative Note Operative Note Date of Service: 05/21/21 Narrative: Operative Information Procedure Description: Colonoscopy COLONOSCOPY Instrument: Olympus variable stiffness pediatric scope 190L Colonoscopy Monitoring: Vital signs and clinical assessment, continuous EKG monitoring, Pulse oximetry, Carbon Dioxide monitoring and blood pressure monitoring were done throughout the procedure. Procedure: The patient was placed in the left lateral decubitis position and pre-procedure medications were administered. After a digital rectal examination of the ano-rectum, the video colonoscope was inserted into the rectum and advanced through the colon to the ascending colon The colonoscope was slowly withdrawn in a retrograde panoramic fashion and the colon mucosa was carefully examined Findings and interventions are described below. Procedure Difficulty: Findings: Colon prep was poor, only some portions of colonic mucosa seen and appeared normal except for few diverticula. There was formed stool thru out colon, the procedure was aborted on reaching the ascending colon Plan: Repeat colonoscopy in 3-6 months, 2 d clear liquids and scheduled MOM BID or miralax for 1 week prior to test. Can also use enemas if needed for day before procedure to help with clean out. Above findings were reviewed with the patient and relevant handouts were provided if indicated.
[2021-05-21 11:12] VITALS: BP 95/58; PULSE 72; RESP 16; TEMP 36.2; O2SAT 96
== END 2021-05-21 12:14 | disposition home or self-care (01) ==
PROVIDERS: PCP Internal Medicine; Visit Provider Internal Medicine Gastroenterology
PROC: 0DJD8ZZ Inspection of Lower Intestinal Tract, Via Natural or Artificial Opening Endoscopic (ICD-10-PCS; CPT 45378; principal; 2021-05-21 10:00)
DX: Z12.11 Encounter for screening for malignant neoplasm of colon (principal); Z80.0 Family history of malignant neoplasm of digestive organs; Z53.8 Procedure and treatment not carried out for other reasons; E11.9 Type 2 diabetes mellitus without complications; I10 Essential (primary) hypertension; J44.9 Chronic obstructive pulmonary disease, unspecified; G47.33 Obstructive sleep apnea (adult) (pediatric); G47.419 Narcolepsy without cataplexy; Z79.4 Long term (current) use of insulin; Z86.14 Personal history of Methicillin resistant Staphylococcus aureus infection
CPT/HCPCS: G0105; 82947

== ENCOUNTER → 2021-05-26 10:48 | Outpatient (BNVA) | payer OTHER, SELFPAY | PROVIDERS: Visit Provider Internal Medicine | DX: T87.89 Other complications of amputation stump (principal); A49.02 Methicillin resistant Staphylococcus aureus infection, unspecified site | CPT/HCPCS: 99212 ==

== ENCOUNTER → 2021-06-05 10:33 | Outpatient (BNVA) | payer OTHER, SELFPAY | PROVIDERS: PCP Internal Medicine; Referring Provider Internal Medicine; Visit Provider Nurse Practitioner | DX: K59.00 Constipation, unspecified (principal); D12.6 Benign neoplasm of colon, unspecified; Z80.0 Family history of malignant neoplasm of digestive organs | CPT/HCPCS: 99212 ==

== ENCOUNTER → 2021-07-11 08:04 | Outpatient (BNVA) | payer OTHER, SELFPAY | PROVIDERS: PCP Internal Medicine; Referring Provider Internal Medicine; Visit Provider Nurse Practitioner | CPT/HCPCS: Q3014 ==

== ENCOUNTER → 2021-07-22 10:09 | Outpatient (BNVA) | payer OTHER, SELFPAY | PROVIDERS: Visit Provider Internal Medicine | DX: M86.8X7 Other osteomyelitis, ankle and foot (principal); B95.7 Other staphylococcus as the cause of diseases classified elsewhere; Z16.21 Resistance to vancomycin; E11.65 Type 2 diabetes mellitus with hyperglycemia; E11.42 Type 2 diabetes mellitus with diabetic polyneuropathy; E11.69 Type 2 diabetes mellitus with other specified complication; N17.9 Acute kidney failure, unspecified; I73.9 Peripheral vascular disease, unspecified; Z89.512 Acquired absence of left leg below knee; Z89.511 Acquired absence of right leg below knee; Z87.891 Personal history of nicotine dependence | CPT/HCPCS: 99212 ==

== ENCOUNTER 2021-09-26 10:21 | Emergency (ER) | payer OTHER, SELFPAY ==
--- NOTE | ~2021-09-26 | MR_ITS ---
EXAMINATION: MR BRAIN WITHOUT CONTRAST CLINICAL INFORMATION: Dizziness. Evaluate for stroke. COMPARISON: Head CT from 09/26/2021. TECHNIQUE: Multiplanar, multisequence imaging of the brain was performed without contrast. FINDINGS: No diffusion abnormalities are identified to suggest an acute infarct. The ventricles are normal in size. No mass effect or midline shift is seen. Minimal nonspecific scattered white matter signal changes may be due to chronic microangiopathy. No extra-axial fluid collections are seen. The brainstem and cerebellum are normal. The gradient refocused acquisition is normal. The craniovertebral junction, marrow signal, and midline structures are normal. The major intracranial flow voids at the level of the [place] are preserved. The dural venous sinus flow voids are maintained. The mastoid air cells and paranasal sinuses are well aerated. MR/MR head/brain wo con IMPRESSION: No acute intracranial process. Minimal chronic white matter microangiopathy.
--- NOTE | ~2021-09-26 | CT_ITS ---
EXAMINATION: CT HEAD WITHOUT CONTRAST CLINICAL INFORMATION: Dizziness. COMPARISON: CT brain 10/12/2020. TECHNIQUE: Contiguous axial imaging was performed from the skull base to vertex without intravenous administration of contrast. This CT examination was performed using dose optimization techniques as appropriate, variously including the following: *Automated exposure control *Adjustment of mA and/or kV according to patient size (this includes techniques or standardized protocols for targeted exams where dose is matched to indication/reason for exam; i.e. extremities or head) *Use of iterative reconstruction technique DLP: 886 mGy-cm FINDINGS: There is no evidence of acute intracranial hemorrhage or territorial infarction. No abnormal mass effect or midline shift is seen. Jose to white matter differentiation is well preserved. No extra-axial fluid collections are identified. The lateral ventricles are symmetrical in size and configuration without enlargement. There is no abnormal attenuation within the brain parenchyma. The osseous structures and soft tissues are normal. The mastoid air cells and visualized portions of the paranasal sinuses are well aerated. CT/CT head/brain wo con IMPRESSION: No acute intracranial process seen.
[2021-09-26 10:48] VITALS: BP 106/61; BP 140/87; PULSE 74; PULSE 93; RESP 16; TEMP 36.9; O2SAT 95; BMI 32.1
--- NOTE | 2021-09-26 11:08 | ECG_ITS ---
Test Reason : general Blood Pressure : / mmHG Vent. Rate : 074 BPM Atrial Rate : 074 BPM P-R Int : 180 ms QRS Dur : 078 ms QT Int : 368 ms P-R-T Axes : 000 -36 023 degrees QTc Int : 408 ms Normal sinus rhythm Left axis deviation Borderline ECG When compared with ECG of 07-MAR-2021 18:04, No significant change was found Referred By: Tri Daniels Electronically Signed By:ZAHRA LANCE
--- NOTE | 2021-09-26 11:12 | ED_ITS ---
HPI - General Adult General Chief complaint: General Medical <GABINO Martin - Last Filed: 09/26/21 17:54> Stated complaint: WEAKNESS <GABINO Martin Last Filed: 09/26/21 17:54> Time Seen by Provider: 09/26/21 10:39 <GABINO Martin Last Filed: 09/26/21 17:54> Source: patient <GABINO Martin Last Filed: 09/26/21 17:54> Mode of arrival: EMS <GABINO Martin Last Filed: 09/26/21 17:54> Limitations: physical limitation <GABINO Martin Last Filed: 09/26/21 17:54> History of Present Illness HPI narrative: 61-year-old male presents for feeling nauseous, lightheaded, and dizzy at 9:00 a.m. this morning. His home health aide came in he felt like he would fall when he got out of bed today. His blood glucose was 337, he did not take insulin today. He is an insulin-dependent diabetic, with bilateral BKA, obesity, history of CIRILO and MRSA. Patient states he had a history of chronic nausea, but it had resolved. States he is not emptying his bladder fully when he urinates. Diarrhea once yesterday No dark tarry or bloody stools, no vomiting, no abdominal pain. No chest pain, no shortness of breath, no fever, no cough, no upper respiratory symptoms. <GABINO Martin Last Filed: 09/26/21 17:54> Related Data Home medications: Home Medications Medication Instructions Recorded Confirmed aspirin 81 mg tablet,delayed 81 mg PO DAILY 07/17/20 05/15/21 release gabapentin 600 mg tablet 600 mg PO BID 07/17/20 05/15/21 liraglutide 0.6 mg/0.1 mL 1.8 mg SUBCUT DAILY 07/17/20 05/15/21 (18 mg/3 mL) subcutaneous pen injector (Victoza 3-Chet) lisinopril 5 mg tablet 5 mg PO DAILY 07/17/20 05/15/21 metformin 1,000 mg tablet 1,000 mg PO BID 07/17/20 05/15/21 cholecalciferol (vitamin D3) 25 mcg PO DAILY 09/04/20 05/15/21 25 mcg (1,000 unit) tablet atorvastatin 40 mg tablet 40 mg PO BEDTIME 10/09/20 05/15/21 insulin degludec 100 unit/mL 55 unit SUBCUT BEDTIME 12/23/20 05/15/21 (3 mL) subcutaneous pen (Tresiba FlexTouch U-100 insulin) insulin degludec 100 unit/mL 85 unit SUBCUT DAILY 12/23/20 05/15/21 (3 mL) subcutaneous pen (Tresiba FlexTouch U-100 insulin) magnesium oxide 400 mg 400 mg PO BID 03/07/21 05/15/21 (241.3 mg magnesium) tablet lancets 28 gauge (FreeStyle #100 ea 03/20/21 Lancets) albuterol sulfate 90 2 puff INHALATION Q4-6H PRN 04/10/21 05/15/21 mcg/actuation aerosol inhaler apixaban 5 mg tablet 1 tab PO Q12H 04/10/21 05/15/21 (Eliquis) fluoxetine 20 mg capsule 20 mg PO DAILY 05/26/21 Previous Rx's Medication Instructions Recorded polyethylene glycol 3350 17 gram 17 g PO DAILY #30 ea 01/07/21 oral powder packet daptomycin 500 mg intravenous 690 mg IV Q24H #37 ea 04/15/21 solution polyethylene glycol 3350 17 238 g PO ONCE 1 Days #238 g 05/02/21 gram/dose oral powder (Miralax) doxycycline hyclate 100 mg capsule 100 mg PO BID 30 Days #60 cap 05/12/21 bisacodyl 5 mg tablet,delayed 10 mg PO ONCE 30 Days #60 tab 07/28/21 release (Dulcolax (bisacodyl)) plecanatide 3 mg tablet (Trulance) 3 mg PO .qam with water 30 Days 07/28/21 #30 tab meclizine 25 mg tablet 25 mg PO DAILY PRN #14 tab 09/26/21 ondansetron 4 mg disintegrating 4 mg PO ONCE PRN #10 tab 09/26/21 tablet <GABINO Martin - Last Filed: 09/26/21 17:54> Allergies/adverse reactions: Allergies Allergy/AdvReac Type Severity Reaction Status Date / Time vancomycin AdvReac Severe thrombocyto Verified 11/30/21 10:14 penia <GABINO Martin Last Filed: 09/26/21 17:54> Review of Systems Verdana 4l Constitutional: Verdana 4d Verdana 4d Constitutional: Verdana 4d Denies body ache(s), Denies chills, Denies fatigue, Denies fever(s), Denies headache(s), Denies malaise and Denies weakness Verdana 4Il <GABINO Martin Last Filed: 09/26/21 17:54> Verdana 4d Verdana 4l Eyes: Verdana 4d Verdana 4d Eyes: Verdana 4d Denies blurry vision, Denies change in vision, Denies diplopia, Denies loss of vision and Denies other visual disturbances Verdana 4Il <GABINO Martin Last Filed: 09/26/21 17:54> Verdana 4d Verdana 4l ENT: Verdana 4d Reports dizziness, Denies otalgia, Denies headache(s), Denies mouth pain, Denies disequilibrium, Denies post nasal drip and Denies sore throat Verdana 4Il <GABION Martin Last Filed: 09/26/21 17:54> Verdana 4d Verdana 4l Cardiovascular: Verdana 4d Verdana 4d Cardiovascular: Verdana 4d Denies chest pain, Denies syncope, Denies leg edema, Reports lightheadedness, Denies Loss of Consciousness, Denies palpitations and Denies dyspnea Verdana 4Il <GABINO Martin Last Filed: 09/26/21 1717:54> Respiratory: Respiratory: Denies chest congestion, Denies cough and Denies dyspnea <GABINO Martin Last Filed: 09/26/21 17:54> Gastrointestinal: Gastrointestinal: Denies abdominal pain, Denies hematochezia, Denies constipation, Denies diarrhea and Denies vomiting <GABINO Martin Last Filed: 09/26/21 17:54> Genitourinary: Genitourinary: Denies dysuria, Denies flank pain, Denies urinary frequency, Reports urinary hesitancy and Denies urinary urgency <GABINO Martin Last Filed: 09/26/21 17:54> Musculoskeletal: Musculoskeletal: Reports no additional musculoskeletal complaints and Denies tingling <GABINO Martin - Last Filed: 09/26/21 17:54> Integumentary/Breasts: Skin/Breast: Denies erythema and Denies rash <GABINO Martin - Last Filed: 09/26/21 17:54> Neurologic: Denies Abnormal speech present, Denies confusion, Reports dizziness, Denies syncope, Denies headache(s), Denies lack of coordination, Denies focal weakness, Denies loss of vision, Denies seizure-like activity, Denies Sensory deficit (Neuro), Denies tingling, Denies disequilibrium and Denies weakness <GABINO Martin - Last Filed: 09/26/21 17:54> Psychiatric: Psychiatric: Denies anxiety, Denies confusion and Denies depression <GABINO Martin Last Filed: 09/26/21 17:54> Endocrine: Endocrine: Denies fatigue and Denies palpitations <GABINO Martin - Last Filed: 09/26/21 17:54> [facility] Past Medical History Medical History: Medical History CIRILO (acute kidney injury) Amputated great toe of right foot Anxiety and depression Back pain COPD (chronic obstructive pulmonary disease) Diabetes Diabetic foot infection Drug-induced thrombocytopenia Hx MRSA infection Hyperlipidemia Hypertension Hyponatremia IDDM (insulin dependent diabetes mellitus) MGUS (monoclonal gammopathy of unknown significance) Neck pain Obesity Peripheral neuropathy Psychiatric diagnosis PVD (peripheral vascular disease) Sleep apnea <GABINO Martin - Last Filed: 09/26/21 17:54> Surgical History: Surgical History H/O abdominoplasty H/O colonoscopy Hx of angioplasty Hx of appendectomy Hx of foot surgery Hx of tonsillectomy Hx of umbilical hernia repair S/P anal fissurectomy S/P BKA (below knee amputation) bilateral Status post below-knee amputation <GABINO Martin - Last Filed: 09/26/21 17:54> Family History Family History: Family History Other No history of heart disease <GABINO Martin Last Filed: 09/26/21 17:54> Social History Social History: Social History Household Members: None Housing: Apartment Do you presently have visiting nurse or other home services: Yes ([facility]- [facility]) Alcohol intake: never Patient Tobacco Use Status: Former Tobacco user Quit Date: 30 yrs ago Tobacco use type: Cigarette Second Hand Smoke Exposure: No Advance Directives: Yes Advance Directives on File: Yes Advance Directives Date on File: 11/06/20 service: Yes Current occupational status: disabled <GABINO Martin - Last Filed: 09/26/21 17:54> Physical Exam Verdana 4l Vital Signs: Verdana 4d Verdana 4d Vital Signs: Verdana 4d Verdana 4Bd Last Vital Signs Verdana 4d Program Control Analyst New 4d Program Control Analyst New 4d Temp 98.4 F 09/26/21 10:48 Program Control Analyst New 4d Pulse 74 09/26/21 15:54 Program Control Analyst New 4d Resp 16 09/26/21 14:10 BP 129/78 09/26/21 15:54 Pulse Ox 94 09/26/21 14:10 BMI result Body Mass Index 32.1 <GABINO Martin - Last Filed: 09/26/21 17:54> Vital Signs: Last Vital Signs Temp 98.4 F 09/26/21 10:48 Pulse 74 09/26/21 15:54 Resp 16 09/26/21 14:10 BP 129/78 09/26/21 15:54 Pulse Ox 94 09/26/21 14:10 BMI result Body Mass Index 32.1 <GABINO Solorio - Last Filed: 09/26/21 19:57> Const: General: no acute distress, alert and awake; No confusion <GABINO Martin - Last Filed: 09/26/21 17:54> Nutritional Appearance: obese morbidly obese <GABINO Martin - Last Filed: 09/26/21 17:54> Orientation/consciousness: patient oriented x3 and No confusion <GABINO Martin - Last Filed: 09/26/21 17:54> Limitations: physical limitations <GABINO Martin - Last Filed: 09/26/21 17:54> HENMT: Head: Yes normal to inspection, Yes normocephalic and Yes atraumatic <GABINO Martin - Last Filed: 09/26/21 17:54> Ears: hearing grossly normal bilaterally, external ears normal, TM's normal bilaterally and EAC's normal <Tri Daniels [facility] Last Filed: 09/26/21 17:54> General nose exam: Normal external nose present <Tri Daniels [facility] Last Filed: 09/26/21 17:54> Face and sinus: Yes normal facial exam and Yes sinuses nontender <Tri Daniels [place] - Last Filed: 09/26/21 17:54> Mouth: Normal oral and palatal mucosa present <Tri Daniels [facility] Last Filed: 09/26/21 17:54> Throat: Yes posterior oropharynx normal <Tri Daniels [facility] Last Filed: 09/26/21 17:54> Eyes: Conjunctivae: conjunctivae normal <Tri Daniels [facility] Last Filed: 09/26/21 17:54> Pupils: Equal, round and reactive pupils present <GABINO Martin Las t Filed: 09/26/21 17:54> EOM: EOMs intact bilaterally <Tri Daniels [facility] Last Filed: 09/26/21 17:54> Neck: Neck: Yes full ROM, Yes no lymphadenopathy and Yes supple <Tri Daniels [facility] Last Filed: 09/26/21 17:54> Resp: Effort & Inspection: normal respiratory effort and able to speak in complete sentences <GABINO Martin Last Filed: 09/26/21 17:54> Auscultation: clear to auscultation bilaterally, no crackles, no rales, no rhonchi and no wheezes <GABINO Martin Last Filed: 09/26/21 17:54> Cardio: Rate: regular rate <GABINO Martin - Last Filed: 09/26/21 17:54> Rhythm: regular rhythm <GBAINO Martin Last Filed: 09/26/21 17:54> Heart sounds: S1 normal heart sound present and S2 normal heart sound present <GABINO Martin - Last Filed: 09/26/21 17:54> GI: Inspection: Yes normal to inspection <Tri Daniels [place] - Last Filed: 09/26/21 17:54> Palpation (GI): Soft to palpation, nontender, no guarding and not rigid <Tri Daniels [facility] Last Filed: 09/26/21 17:54> Percussion: Yes normal to percussion <Tri Daniels [facility] Last Filed: 09/26/21 17:54> Auscultation: normal bowel sounds <Tri Daniels [facility] Last Filed: 09/26/21 17:54> Skin: General skin exam: no rashes or lesions noted <Tri Daniels [facility] Last Filed: 09/26/21 17:54> Neuro: General: patient oriented x3, No confusion and Unable to assess gait <Tri Daniels [facility] Last Filed: 09/26/21 17:54> Cranial nerves: Yes CN's II-XII intact bilaterally, Yes Facial sensation intact/muscles of mastication intact, Yes Equal, round and reactive pupils present, Yes Normal accommodation reflex present, Yes Bilaterally intact EOM present, Yes Nystagmus not present, Yes Normal facial strength present, Yes Midline tongue present, Yes Ability to bilaterally rotate head present and Yes Ability to bilaterally elevate shoulders present <Tri Daniels [facility] Last Filed: 09/26/21 17:54> Cognition (Neuro): normal cognition <Tri Daniels [facility] Last Filed: 09/26/21 17:54> Speech: No Abnormal speech present <Tri Daniels [facility] Last Filed: 09/26/21 17:54> Gait exam (Neuro): Unable to assess gait <Tri Daniels [facility] Last Filed: 09/26/21 17:54> Motor exam (neuro): 5/5 motor strength present throughout, Pronator motor function not present, no tremor noted, Normal motor muscle tone present throughout and Motor abnormalities not present <Tri Daniels [facility] Last Filed: 09/26/21 17:54> Sensory Exam: No Sensory deficit (Neuro) <Tri Daniels [facility] Last Filed: 09/26/21 17:54> Coordination: [id number] test normal <GABINO Martin Last Filed: 09/26/21 17:54> Pupils: Normal pupillary reactivity/response: bilateral <GABINO Martin Last Filed: 09/26/21 17:54> Extrem: Other: bilateral BKA <GABINO Martin Last Filed: 09/26/21 17:54> Right upper extremity: normal to inspection, full ROM and normal capillary refill <GABINO Martin Last Filed: 09/26/21 17:54> Left upper extremity: normal to inspection, full ROM and normal capillary refill <GABINO Martin Last Filed: 09/26/21 17:54> Psych: Appearance: grossly normal <GABINO Martin Last Filed: 09/26/21 17:54> Affect: normal affect <GABINO Martin Last Filed: 09/26/21 17:54> Attitude: cooperative <GABINO Martin Last Filed: 09/26/21 17:54> Thought process: Normal thought process present <GABINO Martin Last Filed: 09/26/21 17:54> Course Course Course Narrative: 61-year-old male insulin-dependent diabetic presents with nausea and dizziness. Nausea started this morning, and patient has felt lightheaded and dizzy. Patient is able to urinate, but feels like is not fully emptying his bladder. On exam, patient is afebrile with normal vitals. Patient is completely neurologically intact. Will bladder scan, get urine, get labs, EKG, troponin, COVID, head CT. Will treat patient with Zofran and normal saline. <GABINO Martin Last Filed: 09/26/21 17:54> Reevaluation(s) Reevaluation #1: Awaiting urine. Labs remarkable only for blood glucose of 358. Initial troponin negative, EKG shows no acute ischemia. Head CT is negative, patient does not have COVID. Despite fluid and Zofran, patient is still feeling nauseous and dizzy. Will repeat 3 hour troponin, do orthostatics. <GABINO Martin Last Filed: 09/26/21 17:54> Reevaluation #2: Repeat troponin negative. Orthostatics are negative. UA shows glucosuria, no infection. Discussed with Dr Jones; will get MRI brain to r/o posterior stroke. Patient states his nausea has resolved, but he is still dizzy. States with orthostatics when he was sitting up and lying down, dizziness is worse. Repeat BG 255, pt has received fluids Signed pt out to GABINO Jernigan, awaiting CT scan results <GABINO Martin - Last Filed: 09/26/21 17:54> Reevaluation #3: MRI w/ no signs of stroke. Will DC home and give patient meclizine for home. Have advised him to return w/new or worsening sx. Comfortable w/ plan. Upon dc patient feeling well, no complaints, dizziness resolved. No nausea or vomiting. <GABINO Solorio - Last Filed: 09/26/21 19:57> Time: 19:54 <GABINO Solorio - Last Filed: 09/26/21 19:57> Medical Decision Making Lab Data Result diagrams: : 09/26/21 11:58 09/26/21 11:58 <GABINO Martin - Last Filed: 09/26/21 17:54> Labs: Lab Results 09/26/21 09/26/21 09/26/21 Range/Units 11:19 11:58 11:58 WBC 6.5 (4.8-10.8) X10*3/uL RBC 4.10 L (4.60-5.80) X10*6/uL Hgb 13.6 L (14.0-18.0) g/dl Hct 38.3 L (42.0-52.0) % MCV 93.4 (80.0-98.0) fL MCH 33.2 H (27.0-33.0) pg MCHC 35.5 (31.0-36.0) g/dl RDW 12.2 (11.0-16.0) % Plt Count 190 (160-400) X10*3/uL MPV 10.9 (9.4-12.4) fL Immature Gran % (Auto) 0.5 H (0.0-0.4) % Neut % (Auto) 65.9 (45-73) % Lymph % (Auto) 22.2 (20-40) % [place] % (Auto) 9.6 (2-11) % Eos % (Auto) 1.2 (0-4) % Baso % (Auto) 0.6 (0-2) % Lymph # (Auto) 1.4 (1.2-4.9) X10*3/uL [place] # (Auto) 0.6 (0.1-1.2) X10*3/uL Eos # (Auto) 0.1 (0.0-0.4) X10*3/uL Baso # (Auto) 0.0 (0.0-0.2) X10*3/uL Abs Immat Gran (auto) 0.03 (0.00-0.03) X10*3/uL Absolute Neuts (auto) 4.3 (2.0-8.3) x10*3/uL Absolute Nucleated RBC 0.000 (0.0-0.012) X10*3/uL Nucleated RBC % (auto) 0.0 (0.0-0.2) /100WBC Sodium 134 L (135-145) mmol/L Potassium 4.8 (3.3-5.1) mmol/L Chloride 101 (96-108) mmol/L Carbon Dioxide 25 (22-29) mmol/L Anion Gap 13 (12-20) BUN 19 H (9-16) mg/dL Creatinine 1.18 (0.5-1.4) mg/dL Estim Creat Clear Calc 86.9 Estimated GFR > 60 POC Glucose 322 H (60-115) mg/dL Random Glucose 358 H* (60-115) mg/dL Calcium 9.4 (8.4-10.2) mg/dL Total Bilirubin 0.5 (0.0-1.0) mg/dL AST 15 (5-37) U/L ALT 16 (0-40) U/L Alkaline Phosphatase 111 (39-117) U/L Troponin I High Sens (<3.5-35.0) ng/L Total Protein 6.6 (6.5-8.0) g/dL Albumin 4.0 (3.5-5.0) g/dL Urine Color Urine Appearance Urine pH (5.0-8.0) Ur Specific [place] (1.005-1.025) Urine Protein (NEG-TRACE) MG/DL Urine Glucose (UA) (NEG) MG/DL Urine Ketones (NEG) MG/DL Urine Blood (NEG) Urine Nitrite (NEG) Ur Leukocyte Esterase (NEG) Urine RBC (0) /HPF Urine WBC (0-4) /HPF Ur Squamous Epith Cells /LPF Urine Bacteria /LPF Urine Mucus /LPF COVID-19 (JOSE) (Negative) COVID-19 Clin Com 09/26/21 09/26/21 09/26/21 Range/Units 11:58 11:58 14:47 WBC (4.8-10.8) X10*3/uL RBC (4.60-5.80) X10*6/uL Hgb (14.0-18.0) g/dl Hct (42.0-52.0) % MCV (80.0-98.0) fL MCH (27.0-33.0) pg MCHC (31.0-36.0) g/dl RDW (11.0-16.0) % Plt Count (160-400) X10*3/uL MPV (9.4-12.4) fL Immature Gran % (Auto) (0.0-0.4) % Neut % (Auto) (45-73) % Lymph % (Auto) (20-40) % [place] % (Auto) (2-11) % Eos % (Auto) (0-4) % Baso % (Auto) (0-2) % Lymph # (Auto) (1.2-4.9) X10*3/uL [place] # (Auto) (0.1-1.2) X10*3/uL Eos # (Auto) (0.0-0.4) X10*3/uL Baso # (Auto) (0.0-0.2) X10*3/uL Abs Immat Gran (auto) (0.00-0.03) X10*3/uL Absolute Neuts (auto) (2.0-8.3) x10*3/uL Absolute Nucleated RBC (0.0-0.012) X10*3/uL Nucleated RBC % (auto) (0.0-0.2) /100WBC Sodium (135-145) mmol/L Potassium (3.3-5.1) mmol/L Chloride (96-108) mmol/L Carbon Dioxide (22-29) mmol/L Anion Gap (12-20) BUN (9-16) mg/dL Creatinine (0.5-1.4) mg/dL Estim Creat Clear Calc Estimated GFR POC Glucose (60-115) mg/dL Random Glucose (60-115) mg/dL Calcium (8.4-10.2) mg/dL Total Bilirubin (0.0-1.0) mg/dL AST (5-37) U/L ALT (0-40) U/L Alkaline Phosphatase (39-117) U/L Troponin I High Sens < 3.5 (<3.5-35.0) ng/L Total Protein (6.5-8.0) g/dL Albumin (3.5-5.0) g/dL Urine Color YELLOW Urine Appearance CLEAR Urine pH 5.5 (5.0-8.0) Ur Specific [place] 1.025 (1.005-1.025) Urine Protein NEG (NEG-TRACE) MG/DL Urine Glucose (UA) >=1000 H (NEG) MG/DL Urine Ketones NEG (NEG) MG/DL Urine Blood NEG (NEG) Urine Nitrite NEG (NEG) Ur Leukocyte Esterase NEG (NEG) Urine RBC 0 (0) /HPF Urine WBC 5-9 H (0-4) /HPF Ur Squamous Epith Cells 1+ /LPF Urine Bacteria 1+ /LPF Urine Mucus 2+ /LPF COVID-19 (JOSE) Negative (Negative) COVID-19 Clin Com See Note 09/26/21 09/26/21 Range/Units 15:29 16:12 WBC (4.8-10.8) X10*3/uL RBC (4.60-5.80) X10*6/uL Hgb (14.0-18.0) g/dl Hct (42.0-52.0) % MCV (80.0-98.0) fL MCH (27.0-33.0) pg MCHC (31.0-36.0) g/dl RDW (11.0-16.0) % Plt Count (160-400) X10*3/uL MPV (9.4-12.4) fL Immature Gran % (Auto) (0.0-0.4) % Neut % (Auto) (45-73) % Lymph % (Auto) (20-40) % [place] % (Auto) (2-11) % Eos % (Auto) (0-4) % Baso % (Auto) (0-2) % Lymph # (Auto) (1.2-4.9) X10*3/uL [place] # (Auto) (0.1-1.2) X10*3/uL Eos # (Auto) (0.0-0.4) X10*3/uL Baso # (Auto) (0.0-0.2) X10*3/uL Abs Immat Gran (auto) (0.00-0.03) X10*3/uL Absolute Neuts (auto) (2.0-8.3) x10*3/uL Absolute Nucleated RBC (0.0-0.012) X10*3/uL Nucleated RBC % (auto) (0.0-0.2) /100WBC Sodium (135-145) mmol/L Potassium (3.3-5.1) mmol/L Chloride (96-108) mmol/L Carbon Dioxide (22-29) mmol/L Anion Gap (12-20) BUN (9-16) mg/dL Creatinine (0.5-1.4) mg/dL Estim Creat Clear Calc Estimated GFR POC Glucose 255 H (60-115) mg/dL Random Glucose (60-115) mg/dL Calcium (8.4-10.2) mg/dL Total Bilirubin (0.0-1.0) mg/dL AST (5-37) U/L ALT (0-40) U/L Alkaline Phosphatase (39-117) U/L Troponin I High Sens < 3.5 (<3.5-35.0) ng/L Total Protein (6.5-8.0) g/dL Albumin (3.5-5.0) g/dL Urine Color Urine Appearance Urine pH (5.0-8.0) Ur Specific [place] (1.005-1.025) Urine Protein (NEG-TRACE) MG/DL Urine Glucose (UA) (NEG) MG/DL Urine Ketones (NEG) MG/DL Urine Blood (NEG) Urine Nitrite (NEG) Ur Leukocyte Esterase (NEG) Urine RBC (0) /HPF Urine WBC (0-4) /HPF Ur Squamous Epith Cells /LPF Urine Bacteria /LPF Urine Mucus /LPF COVID-19 (JOSE) (Negative) COVID-19 Clin Com <GABINO Martin - Last Filed: 09/26/21 17:54> Lab Results 09/26/21 09/26/21 09/26/21 Range/Units 11:19 11:58 11:58 WBC 6.5 (4.8-10.8) X10*3/uL RBC 4.10 L (4.60-5.80) X10*6/uL Hgb 13.6 L (14.0-18.0) g/dl Hct 38.3 L (42.0-52.0) % MCV 93.4 (80.0-98.0) fL MCH 33.2 H (27.0-33.0) pg MCHC 35.5 (31.0-36.0) g/dl RDW 12.2 (11.0-16.0) % Plt Count 190 (160-400) X10*3/uL MPV 10.9 (9.4-12.4) fL Immature Gran % (Auto) 0.5 H (0.0-0.4) % Neut % (Auto) 65.9 (45-73) % Lymph % (Auto) 22.2 (20-40) % [place] % (Auto) 9.6 (2-11) % Eos % (Auto) 1.2 (0-4) % Baso % (Auto) 0.6 (0-2) % Lymph # (Auto) 1.4 (1.2-4.9) X10*3/uL [place] # (Auto) 0.6 (0.1-1.2) X10*3/uL Eos # (Auto) 0.1 (0.0-0.4) X10*3/uL Baso # (Auto) 0.0 (0.0-0.2) X10*3/uL Abs Immat Gran (auto) 0.03 (0.00-0.03) X10*3/uL Absolute Neuts (auto) 4.3 (2.0-8.3) x10*3/uL Absolute Nucleated RBC 0.000 (0.0-0.012) X10*3/uL Nucleated RBC % (auto) 0.0 (0.0-0.2) /100WBC Sodium 134 L (135-145) mmol/L Potassium 4.8 (3.3-5.1) mmol/L Chloride 101 (96-108) mmol/L Carbon Dioxide 25 (22-29) mmol/L Anion Gap 13 (12-20) BUN 19 H (9-16) mg/dL Creatinine 1.18 (0.5-1.4) mg/dL Estim Creat Clear Calc 86.9 Estimated GFR > 60 POC Glucose 322 H (60-115) mg/dL Random Glucose 358 H* (60-115) mg/dL Calcium 9.4 (8.4-10.2) mg/dL Total Bilirubin 0.5 (0.0-1.0) mg/dL AST 15 (5-37) U/L ALT 16 (0-40) U/L Alkaline Phosphatase 111 (39-117) U/L Troponin I High Sens (<3.5-35.0) ng/L Total Protein 6.6 (6.5-8.0) g/dL Albumin 4.0 (3.5-5.0) g/dL Urine Color Urine Appearance Urine pH (5.0-8.0) Ur Specific [place] (1.005-1.025) Urine Protein (NEG-TRACE) MG/DL Urine Glucose (UA) (NEG) MG/DL Urine Ketones (NEG) MG/DL Urine Blood (NEG) Urine Nitrite (NEG) Ur Leukocyte Esterase (NEG) Urine RBC (0) /HPF Urine WBC (0-4) /HPF Ur Squamous Epith Cells /LPF Urine Bacteria /LPF Urine Mucus /LPF COVID-19 (JOSE) (Negative) COVID-19 Clin Com 09/26/21 09/26/21 09/26/21 Range/Units 11:58 11:58 14:47 WBC (4.8-10.8) X10*3/uL RBC (4.60-5.80) X10*6/uL Hgb (14.0-18.0) g/dl Hct (42.0-52.0) % MCV (80.0-98.0) fL MCH (27.0-33.0) pg MCHC (31.0-36.0) g/dl RDW (11.0-16.0) % Plt Count (160-400) X10*3/uL MPV (9.4-12.4) fL Immature Gran % (Auto) (0.0-0.4) % Neut % (Auto) (45-73) % Lymph % (Auto) (20-40) % [place] % (Auto) (2-11) % Eos % (Auto) (0-4) % Baso % (Auto) (0-2) % Lymph # (Auto) (1.2-4.9) X10*3/uL [place] # (Auto) (0.1-1.2) X10*3/uL Eos # (Auto) (0.0-0.4) X10*3/uL Baso # (Auto) (0.0-0.2) X10*3/uL Abs Immat Gran (auto) (0.00-0.03) X10*3/uL Absolute Neuts (auto) (2.0-8.3) x10*3/uL Absolute Nucleated RBC (0.0-0.012) X10*3/uL Nucleated RBC % (auto) (0.0-0.2) /100WBC Sodium (135-145) mmol/L Potassium (3.3-5.1) mmol/L Chloride (96-108) mmol/L Carbon Dioxide (22-29) mmol/L Anion Gap (12-20) BUN (9-16) mg/dL Creatinine (0.5-1.4) mg/dL Estim Creat Clear Calc Estimated GFR POC Glucose (60-115) mg/dL Random Glucose (60-115) mg/dL Calcium (8.4-10.2) mg/dL Total Bilirubin (0.0-1.0) mg/dL AST (5-37) U/L ALT (0-40) U/L Alkaline Phosphatase (39-117) U/L Troponin I High Sens < 3.5 (<3.5-35.0) ng/L Total Protein (6.5-8.0) g/dL Albumin (3.5-5.0) g/dL Urine Color YELLOW Urine Appearance CLEAR Urine pH 5.5 (5.0-8.0) Ur Specific [place] 1.025 (1.005-1.025) Urine Protein NEG (NEG-TRACE) MG/DL Urine Glucose (UA) >=1000 H (NEG) MG/DL Urine Ketones NEG (NEG) MG/DL Urine Blood NEG (NEG) Urine Nitrite NEG (NEG) Ur Leukocyte Esterase NEG (NEG) Urine RBC 0 (0) /HPF Urine WBC 5-9 H (0-4) /HPF Ur Squamous Epith Cells 1+ /LPF Urine Bacteria 1+ /LPF Urine Mucus 2+ /LPF COVID-19 (JOSE) Negative (Negative) COVID-19 Clin Com See Note 09/26/21 09/26/21 Range/Units 15:29 16:12 WBC (4.8-10.8) X10*3/uL RBC (4.60-5.80) X10*6/uL Hgb (14.0-18.0) g/dl Hct (42.0-52.0) % MCV (80.0-98.0) fL MCH (27.0-33.0) pg MCHC (31.0-36.0) g/dl RDW (11.0-16.0) % Plt Count (160-400) X10*3/uL MPV (9.4-12.4) fL Immature Gran % (Auto) (0.0-0.4) % Neut % (Auto) (45-73) % Lymph % (Auto) (20-40) % [place] % (Auto) (2-11) % Eos % (Auto) (0-4) % Baso % (Auto) (0-2) % Lymph # (Auto) (1.2-4.9) X10*3/uL [place] # (Auto) (0.1-1.2) X10*3/uL Eos # (Auto) (0.0-0.4) X10*3/uL Baso # (Auto) (0.0-0.2) X10*3/uL Abs Immat Gran (auto) (0.00-0.03) X10*3/uL Absolute Neuts (auto) (2.0-8.3) x10*3/uL Absolute Nucleated RBC (0.0-0.012) X10*3/uL Nucleated RBC % (auto) (0.0-0.2) /100WBC Sodium (135-145) mmol/L Potassium (3.3-5.1) mmol/L Chloride (96-108) mmol/L Carbon Dioxide (22-29) mmol/L Anion Gap (12-20) BUN (9-16) mg/dL Creatinine (0.5-1.4) mg/dL Estim Creat Clear Calc Estimated GFR POC Glucose 255 H (60-115) mg/dL Random Glucose (60-115) mg/dL Calcium (8.4-10.2) mg/dL Total Bilirubin (0.0-1.0) mg/dL AST (5-37) U/L ALT (0-40) U/L Alkaline Phosphatase (39-117) U/L Troponin I High Sens < 3.5 (<3.5-35.0) ng/L Total Protein (6.5-8.0) g/dL Albumin (3.5-5.0) g/dL Urine Color Urine Appearance Urine pH (5.0-8.0) Ur Specific [place] (1.005-1.025) Urine Protein (NEG-TRACE) MG/DL Urine Glucose (UA) (NEG) MG/DL Urine Ketones (NEG) MG/DL Urine Blood (NEG) Urine Nitrite (NEG) Ur Leukocyte Esterase (NEG) Urine RBC (0) /HPF Urine WBC (0-4) /HPF Ur Squamous Epith Cells /LPF Urine Bacteria /LPF Urine Mucus /LPF COVID-19 (JOSE) (Negative) COVID-19 Clin Com <GABINO Solorio - Last Filed: 09/26/21 19:57> ECG Data Interpretation: Sinus at a rate of 74, ID interval 180, QRS 78, QTC 408, left axis deviation, no ST depression or elevation, no t wave abnormalities <GABINO Martin Last Filed: 09/26/21 17:54> Critical Care Time Critical Care Time Critical Care Time: No <GABINO Solorio Last Filed: 09/26/21 19:57> Discharge Plan Discharge Clinical Impression: Dizziness <GABINO Martin Last Filed: 09/26/21 17:54> Patient Disposition: Still a Patient <GABINO Martin Last Filed: 09/26/21 17:54> Instructions: Vertigo (ED), Lightheadedness (ED), Dizziness (ED) <GABINO Martin - Last Filed: 09/26/21 17:54> Additional Instructions: Take your medications as prescribed. If you were prescribed antibiotics today, it is important that you take your medication to their entirety, do not skip any doses, do not finish them early. Follow-up with your primary care provider this week. Return to the emergency department with new or worsening symptoms. Such as headache, vision changes, nausea, vomiting, dizziness, chest pain, shortness of breath, fevers, chills, abdominal pain, weakness or lethargy. In case of emergency call 911 <GABINO Martin - Last Filed: 09/26/21 17:54> Prescriptions: New meclizine 25 mg tablet 25 mg PO DAILY PRN (Reason: dizziness) Qty: 14 0RF ondansetron 4 mg tablet,disintegrating 4 mg PO ONCE PRN (Reason: nausea and vomiting) Qty: 10 0RF No Action polyethylene glycol 3350 [Miralax] 17 gram/dose powder 238 g PO ONCE 1 Days Qty: 238 0RF Rx Instructions: Take as directed by mouth, bowel prep Trulance 3 mg tablet 3 mg PO .qam with water 30 Days Qty: 30 3RF bisacodyl [Dulcolax (bisacodyl)] 5 mg tablet,delayed release (DR/EC) 10 mg PO ONCE 30 Days Qty: 60 6RF atorvastatin 40 mg tablet 40 mg PO BEDTIME 0RF Hold Instructions: Resume on 05/24/21. hold while on daptomycin Eliquis 5 mg tablet 1 tab PO Q12H 0RF albuterol sulfate 90 mcg/actuation Hfa Aerosol Inhaler 2 puff INHALATION Q4-6H PRN (Reason: Shortness Of Breath) 0RF daptomycin 500 mg recon soln 690 mg IV Q24H Qty: 37 0RF Rx Instructions: administer over 30 mins gabapentin 600 mg tablet 600 mg PO BID 0RF aspirin 81 mg tablet,delayed release (DR/EC) 81 mg PO DAILY 0RF metformin 1,000 mg tablet 1,000 mg PO BID 0RF lisinopril 5 mg tablet 5 mg PO DAILY 0RF Victoza 3-Chet 0.6 mg/0.1 mL (18 mg/3 mL) pen injector 1.8 mg subcut DAILY 0RF cholecalciferol (vitamin D3) 25 mcg (1,000 unit) tablet 25 mcg PO DAILY 0RF Tresiba FlexTouch U-100 100 unit/mL (3 mL) insulin pen 55 unit subcut BEDTIME 0RF Tresiba FlexTouch U-100 100 unit/mL (3 mL) insulin pen 85 unit subcut DAILY 0RF polyethylene glycol 3350 17 gram Powder In Packet 17 g PO DAILY Qty: 30 0RF magnesium oxide 400 mg (241.3 mg magnesium) tablet 400 mg PO BID 0RF (DME) lancets [FreeStyle Lancets] 28 gauge misc See Rx Instructions ea topical QID Qty: 100 0RF Rx Instructions: As directed doxycycline hyclate 100 mg capsule 100 mg PO BID 30 Days Qty: 60 1RF fluoxetine 20 mg capsule 20 mg PO DAILY 0RF <GABINO Martin - Last Filed: 09/26/21 17:54> Referrals: Janak Malcolm MD [Primary Care Provider] - 2 days <GABINO Martin - Last Filed: 09/26/21 17:54>
[2021-09-26 11:47] LABS: Glucose, Whole Blood 322 mg/dL (60-115)
[2021-09-26 12:03] LABS: MANUAL DIFF FLAG NO
[2021-09-26 12:09] LABS: Basophils Percent Auto 0.6 % (0-2); Eosinophils Absolute Auto 0.1 X10*3/uL (0.0-0.4); Eosinophils Percent Auto 1.2 % (0-4); Hematocrit 38.3 % (42.0-52.0); Hemoglobin 13.6 g/dl (14.0-18.0); Imm Gran Abs Auto 0.03 X10*3/uL (0.00-0.03); Imm Gran Pct Auto 0.5 % (0.0-0.4); Lymphocytes Absolute Auto 1.4 X10*3/uL (1.2-4.9); Lymphocytes Percent Auto 22.2 % (20-40); Mean Corpuscular HGB Conc 35.5 g/dl (31.0-36.0); Mean Corpuscular Hemoglobin 33.2 pg (27.0-33.0); Mean Corpuscular Volume 93.4 fL (80.0-98.0); Mean Platelet Volume 10.9 fL (9.4-12.4); Monocytes Absolute Auto 0.6 X10*3/uL (0.1-1.2); Monocytes Percent Auto 9.6 % (2-11); Neutrophils Absolute Auto 4.3 x10*3/uL (2.0-8.3); Neutrophils Percent Auto 65.9 % (45-73); Platelet Count 190 X10*3/uL (160-400); Red Cell Distribution Width 12.2 % (11.0-16.0); White Blood Count 6.5 X10*3/uL (4.8-10.8)
[2021-09-26] MEDS: ondansetron HCL 4 MG/2 ML VIAL IVPUSH (12:15)
[2021-09-26] MEDS: 0.9 % Sodium Chloride 1,000 ML 999 ML IV ×2 (12:15→14:17)
[2021-09-26 12:21] LABS: COVID-19 Test Negative (Negative)
[2021-09-26 12:26] LABS: Troponin-I High Sensitivity < 3.5 ng/L (<3.5-35.0)
[2021-09-26 12:41] LABS: Alanine Aminotransferase 16 U/L (0-40); Alkaline Phosphatase 111 U/L (39-117); Anion Gap 13 (12-20); Aspartate Amino Transferase 15 U/L (5-37); Bilirubin Total 0.5 mg/dL (0.0-1.0); Blood Urea Nitrogen 19 mg/dL (9-16); Calcium 9.4 mg/dL (8.4-10.2); Carbon Dioxide 25 mmol/L (22-29); Chloride 101 mmol/L (96-108); Creatinine Clr Calc Pharmacy 86.9; Estimated Glomerular Filt Rate > 60; Glucose Random 358 mg/dL (60-115); Potassium 4.8 mmol/L (3.3-5.1); Sodium 134 mmol/L (135-145); Total Protein 6.6 g/dL (6.5-8.0)
[2021-09-26 14:10] VITALS: BP 120/65; PULSE 68; RESP 16; O2SAT 94
[2021-09-26] MEDS: Meclizine HCl 25 MG TABLET PO (14:17)
[2021-09-26 15:07] LABS: Appearance Urine CLEAR; Color Urine YELLOW; Glucose Urine UA >=1000 MG/DL (NEG); Leukocyte Esterase Urine NEG (NEG); Nitrite Urine NEG (NEG); PH 5.5 (5.0-8.0); Specific Gravity - Urine 1.025 (1.005-1.025); Urine Blood NEG (NEG); Urine Ketones NEG (NEG); Urine Protein NEG (NEG-TRACE)
[2021-09-26 15:25] LABS: Bacteria Urine 1+ /LPF; Mucus Urine 2+ /LPF; RBC Urine 0 /HPF (0); Squamous Epithelial Cell Urine 1+ /LPF
[2021-09-26 15:52] VITALS: BP 147/76; PULSE 69
[2021-09-26 15:54] VITALS: BP 129/78; PULSE 74
[2021-09-26 15:58] LABS: Troponin-I High Sensitivity < 3.5 ng/L (<3.5-35.0)
[2021-09-26 16:17] LABS: Glucose, Whole Blood 255 mg/dL (60-115)
== END 2021-09-26 22:59 | disposition home or self-care (01) ==
PROVIDERS: Physician Assistant; Emergency Provider Emergency Medicine; PCP Internal Medicine
DX: R42 Dizziness and giddiness (principal); Z20.822 Contact with and (suspected) exposure to COVID-19; E11.9 Type 2 diabetes mellitus without complications; I10 Essential (primary) hypertension; E78.5 Hyperlipidemia, unspecified; Z79.4 Long term (current) use of insulin; Z89.512 Acquired absence of left leg below knee; Z89.511 Acquired absence of right leg below knee; Z79.82 Long term (current) use of aspirin; Z79.02 Long term (current) use of antithrombotics/antiplatelets; Z86.14 Personal history of Methicillin resistant Staphylococcus aureus infection
CPT/HCPCS: 36415; 51798; 70450; 70551; 80053; 81001; 82947; 84484; 85025; 87086; 87088; 87186; 87635; 93005; 96361; 96374; 99284; 99285; J2405

== ENCOUNTER 2021-12-13 07:57 | Inpatient (IN) | payer OTHER, SELFPAY ==
--- NOTE | ~2021-12-13 | CT_ITS ---
EXAMINATION: CT LOWER EXTREMITY WITHOUT CONTRAST, LEFT CLINICAL INFORMATION: Abscess stump. COMPARISON: Prior examinations most recent x-ray of the left knee November 2021. TECHNIQUE: CT scan of the left lower leg/knee was performed without contrast with reconstruction imaging performed at the acquisition workstation. FINDINGS: There are postoperative changes related to below-knee amputation as seen previously. There is increased calcification or ossification along the distal end of the remaining tibia likely reflecting some reactive periosteal reaction and/or heterotopic ossification related to the prior surgery. Minimal ossification along the distal cortex of the fibula. There is generalized streaky density noted throughout the cutaneous soft tissues compatible with edema, cellulitis, or a combination of these. There is also suggestion of the developing slightly complex fluid collection abutting the distal medial aspect of the distal end of the tibia, new compared to prior. This measures 2.3 cm transverse, 3.9 cm AP and 3.8 cm craniocaudal. Arterial calcification present. Osteoarthritis in the knee unchanged. CT/CT lower leg LT wo con IMPRESSION: Postop changes related to below-knee amputation. Subtle findings suggestive of slightly complex small fluid collection abutting the distal lateral aspect of the remaining tibia. This could reflect a hematoma, seroma, or abscess.
--- NOTE | ~2021-12-13 | XR_ITS ---
EXAMINATION: XR KNEE, LEFT CLINICAL INFORMATION: Status post amputation. Pain at the stump. COMPARISON: Left knee radiographs done on 03/07/2021. TECHNIQUE: Two views, 3 images of the left knee. FINDINGS: Postsurgical changes of below knee left leg amputation is present. Interval development of new bone formation and periosteal reaction is seen around the site of the amputation involving the tibia. No evidence of any soft tissue gas. Mild tricompartmental osteoarthrosis of the left knee. Atherosclerotic disease of the popliteal and tibial arteries. XR/XR knee LT 2V IMPRESSION: 1. Compared to prior baseline postoperative study dated 03/07/2021, interval development of nonspecific periosteal reaction and new bone formation around the stump of the left tibia is seen. No evidence of any soft tissue gas present. 2. 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
--- NOTE | ~2021-12-13 | MR_ITS ---
EXAMINATION: MR LOWER LEG WITH CONTRAST, LEFT CLINICAL INFORMATION: Stump abscess. Evaluate for osteomyelitis. COMPARISON: Most recent lower extremity CT dated 12/13/2021. TECHNIQUE: Multisequence MR imaging of the right lower leg was obtained before and after the IV administration of 10 mL Gadavist contrast on a high-field strength scanner. FINDINGS: Redemonstration of a below-knee amputation. Within the soft tissues both medial and lateral to the tibial stump, there is diffuse heterogeneity with multiple small foci of probable metallic artifact. Medial to the tibial stump, there is a lobulated, heterogeneous collection with mild peripheral enhancement and adjacent ulceration measuring up to 3.0 x 2.8 cm, likely corresponding to the previously seen probable abscess. There is adjacent soft tissue stranding and edema/enhancement, consistent with cellulitis. Minimal increased T2 signal with decreased T1 signal and postcontrast enhancement within the posterior aspect of the amputation site where there is minimal periosteal reaction, consistent with acute osteomyelitis. No abnormal signal within the distal fibula. Edema and atrophy of the visualized musculature which can be seen in diabetic patients. No additional soft tissue mass or fluid collection. MR/MR lower leg LT w con IMPRESSION: Redemonstration of a complex collection along the medial aspect of the tibial stump with adjacent soft tissue ulceration consistent with the previously seen probable abscess formation. This appears slightly decreased in prominence when compared to the prior CT likely indicating interval intervention. Adjacent cellulitis. Findings consistent with early osteomyelitis within the posterior aspect of the tibial amputation site.
--- NOTE | ~2021-12-13 | XR_ITS ---
EXAMINATION: XR CHEST CLINICAL INFORMATION: PICC line placement COMPARISON: Chest radiograph 02/22/2021 TECHNIQUE: Frontal view of the chest was obtained. FINDINGS: A right-sided PICC line has been placed with its tip in the SVC. No significant abnormality is noted involving the heart, lungs, mediastinum, bony thorax or soft tissues. XR/XR chest 1V IMPRESSION: Right-sided PICC line has tip in excellent position in SVC.
[2021-12-13 07:55] VITALS: BP 148/80; PULSE 97; O2SAT 97
[2021-12-13 08:01] VITALS: BP 133/64; PULSE 98; RESP 20; TEMP 37.2; O2SAT 97; BMI 37.9
--- NOTE | 2021-12-13 08:15 | ED.EXTPRO ---
HPI - Extremity Problem General Chief complaint: Extremity Problem Stated complaint: L LEG PAIN FOR DAYS Time Seen by Provider: 12/13/21 08:06 Source: patient Mode of arrival: EMS Limitations: no limitations History of Present Illness HPI Narrative: this is 61 years old diabetic patient with severe peripheral vascular disease, status post bilateral BKA complicated by left stump infection /osteomyelitis, presented to the ED with a chief complaint of increasing pain in the left BKA stump. He denies any fever she is vomiting any other systemic symptoms. MD Complaint: extremity pain Onset (ago): week(s) ( Two weeks) Pain Consistency: constant Location: left and other (lower ext spamp) Quality: aching Relieving factors: nothing Exacerbating factors: nothing Associated symptoms: denies other symptoms Related Data Home Medications Medication Instructions Recorded Confirmed aspirin 81 mg tablet,delayed 81 mg PO DAILY 07/17/20 12/13/21 release gabapentin 600 mg tablet 600 mg PO BID 07/17/20 12/13/21 liraglutide 0.6 mg/0.1 mL (18 mg/3 1.8 mg SUBCUT DAILY 07/17/20 12/13/21 mL) subcutaneous pen injector (Victoza 3-Chet) lisinopril 5 mg tablet 5 mg PO DAILY 07/17/20 12/13/21 metformin 1,000 mg tablet 1,000 mg PO BID 07/17/20 12/13/21 cholecalciferol (vitamin D3) 25 25 mcg PO DAILY 09/04/20 12/13/21 mcg (1,000 unit) tablet atorvastatin 40 mg tablet 40 mg PO DAILY 10/09/20 12/13/21 insulin degludec 100 unit/mL (3 30 unit SUBCUT BID 12/23/20 12/13/21 mL) subcutaneous pen (Tresiba FlexTouch U-100 insulin) magnesium oxide 400 mg (241.3 mg 400 mg PO BID 03/07/21 12/13/21 magnesium) tablet lancets 28 gauge (FreeStyle #100 ea 03/20/21 Lancets) albuterol sulfate 90 mcg/actuation 2 puff INHALATION Q4-6H PRN 04/10/21 12/13/21 aerosol inhaler apixaban 5 mg tablet (Eliquis) 1 tab PO BID 04/10/21 12/13/21 fluoxetine 20 mg capsule 20 mg PO DAILY 05/26/21 12/13/21 bisacodyl 5 mg tablet,delayed 5 mg PO BID 12/13/21 12/13/21 release (Dulcolax (bisacodyl)) insulin aspart U-100 100 unit/mL 10 unit SUBCUT TIDAC 12/13/21 12/13/21 (3 mL) subcutaneous pen (Novolog Flexpen U-100 Insulin aspart) ondansetron 4 mg disintegrating 4 mg PO Q8H PRN 12/13/21 12/13/21 tablet plecanatide 3 mg tablet (Trulance) 3 mg PO DAILY 12/13/21 12/13/21 polyethylene glycol 3350 17 gram 17 g PO MOWEFR@0900 PRN 12/13/21 12/13/21 oral powder packet Previous Rx's Medication Instructions Recorded meclizine 25 mg tablet 25 mg PO DAILY PRN #14 tab 09/26/21 Allergies Allergy/AdvReac Type Severity Reaction Status Date / Time vancomycin AdvReac Severe thrombocyto Verified 07/22/21 10:14 penia Review of Systems Review of Systems: Yes all other systems are reviewed and are negative Constitutional: Constitutional: Denies fatigue and Denies fever(s) ENT: Reports system reviewed and no additional complaints, except as documented Cardiovascular: Cardiovascular: Reports no additional cardiovascular complaints Gastrointestinal: Gastrointestinal: Reports no additional gastrointestinal complaints Integumentary/Breasts: Skin/Breast: Reports system reviewed and no additional complaints, except as docu Endocrine: Endocrine: Denies fatigue PMFSH Past Medical History Medical History CIRILO (acute kidney injury) Amputated great toe of right foot Anxiety and depression Back pain COPD (chronic obstructive pulmonary disease) Diabetes Diabetic foot infection Drug-induced thrombocytopenia Hx MRSA infection Hyperlipidemia Hypertension Hyponatremia IDDM (insulin dependent diabetes mellitus) MGUS (monoclonal gammopathy of unknown significance) Neck pain Obesity Peripheral neuropathy Psychiatric diagnosis PVD (peripheral vascular disease) Sleep apnea Surgical History H/O abdominoplasty H/O colonoscopy Hx of angioplasty Hx of appendectomy Hx of foot surgery Hx of tonsillectomy Hx of umbilical hernia repair S/P anal fissurectomy S/P BKA (below knee amputation) bilateral Status post below-knee amputation Family History Family History Other No history of heart disease Social History Social History Household Members: None Housing: Apartment Do you presently have visiting nurse or other home services: Yes ([facility] care- [facility]) Alcohol intake: never Patient Tobacco Use Status: Former Tobacco user Quit Date: 30 yrs ago Tobacco use type: Cigarette Smoked in Last 30 Days: No Second Hand Smoke Exposure: No Use of substances other than those prescribed or required for medical reasons: No Advance Directives: Yes Advance Directives on File: Yes Advance Directives Date on File: 11/06/20 service: Yes Current occupational status: disabled Physical Exam Vital Signs: Vital Signs: Last Vital Signs Temp 99 F 12/13/21 08:01 Pulse 98 12/13/21 08:01 Resp 20 12/13/21 08:01 BP 133/64 12/13/21 08:01 Pulse Ox 97 12/13/21 08:01 BMI result Body Mass Index 37.9 Const: General: cooperative and comfortable Nutritional Appearance: average body habitus Orientation/consciousness: patient oriented x3 Limitations: no limitations HEENT: Head: Yes normal to inspection Ears: hearing grossly normal bilaterally General nose exam: Normal external nose present Face and sinus: Yes normal facial exam Mouth: Normal oral and palatal mucosa present Throat: Yes posterior oropharynx normal Neck: Neck: Yes normal visual inspection Thyroid: Thyroid normal Chest: Chest palpation & inspection: normal inspection of the chest Resp: Effort & Inspection: normal respiratory effort Auscultation: clear to auscultation bilaterally Cardio: Jugular venous distension: no JVD Rate: regular rate Rhythm: regular rhythm GI: Inspection: Yes normal to inspection Palpation (GI): Soft to palpation, not firm and nontender Auscultation: normal bowel sounds Skin: General skin exam: no rashes or lesions noted Lesions: no lesions Rashes: no rashes Wounds: no wounds Neuro: General: patient oriented x3 Extrem: Other: examination the lower extremities shows bilateral BKA the stump on the left BK is mildly red, there is no fluctuance General: Yes normal to inspection and Yes full ROM Right upper extremity: normal to inspection Course Reevaluation(s) Reevaluation #1: I discussed the case with ID she recommend admission with daptomycin and Zosyn CT showed a possible abscess in the left stump MDM - Extremity (Nontraumatic) Lab Data Result diagrams: 12/13/21 08:22 12/13/21 08:22 Labs: Lab Results 12/13/21 12/13/21 12/13/21 Range/Units 08:22 08:22 08:22 WBC 9.1 (4.8-10.8) X10*3/uL RBC 4.09 L (4.60-5.80) X10*6/uL Hgb 13.3 L (14.0-18.0) g/dl Hct 37.6 L (42.0-52.0) % MCV 91.9 (80.0-98.0) fL MCH 32.5 (27.0-33.0) pg MCHC 35.4 (31.0-36.0) g/dl RDW 11.7 (11.0-16.0) % Plt Count 186 (160-400) X10*3/uL MPV 10.3 (9.4-12.4) fL Immature Gran % (Auto) 0.5 H (0.0-0.4) % Neut % (Auto) 66.8 (45-73) % Lymph % (Auto) 18.6 L (20-40) % [place] % (Auto) 12.3 H (2-11) % Eos % (Auto) 1.4 (0-4) % Baso % (Auto) 0.4 (0-2) % Lymph # (Auto) 1.7 (1.2-4.9) X10*3/uL [place] # (Auto) 1.1 (0.1-1.2) X10*3/uL Eos # (Auto) 0.1 (0.0-0.4) X10*3/uL Baso # (Auto) 0.0 (0.0-0.2) X10*3/uL Abs Immat Gran (auto) 0.05 H (0.00-0.03) X10*3/uL Absolute Neuts (auto) 6.1 (2.0-8.3) x10*3/uL Absolute Nucleated RBC 0.000 (0.0-0.012) X10*3/uL Nucleated RBC % (auto) 0.0 (0.0-0.2) /100WBC ESR 44 H (0-15) MM/HR Sodium 136 (135-145) mmol/L Potassium 4.3 (3.3-5.1) mmol/L Chloride 102 (96-108) mmol/L Carbon Dioxide 26 (22-29) mmol/L Anion Gap 12 (12-20) BUN 14 (9-16) mg/dL Creatinine 0.93 (0.5-1.4) mg/dL Estim Creat Clear Calc 106.9 Estimated GFR > 60 Random Glucose 169 H D (60-115) mg/dL Calcium 9.3 (8.4-10.2) mg/dL Total Bilirubin 1.0 (0.0-1.0) mg/dL AST 20 (5-37) U/L ALT 25 (0-40) U/L Alkaline Phosphatase 84 D (39-117) U/L C-Reactive Protein 3.07 H (< or = 0.50) mg/dL Total Protein 6.6 (6.5-8.0) g/dL Albumin 3.8 (3.5-5.0) g/dL Discharge Plan Discharge Clinical Impression: Cellulitis, Abscess Patient Disposition: Admitted As Inpatient
[2021-12-13 08:27] LABS: MANUAL DIFF FLAG NO
[2021-12-13 08:28] LABS: Basophils Percent Auto 0.4 % (0-2); Eosinophils Absolute Auto 0.1 X10*3/uL (0.0-0.4); Eosinophils Percent Auto 1.4 % (0-4); Hematocrit 37.6 % (42.0-52.0); Hemoglobin 13.3 g/dl (14.0-18.0); Imm Gran Abs Auto 0.05 X10*3/uL (0.00-0.03); Imm Gran Pct Auto 0.5 % (0.0-0.4); Lymphocytes Absolute Auto 1.7 X10*3/uL (1.2-4.9); Lymphocytes Percent Auto 18.6 % (20-40); Mean Corpuscular HGB Conc 35.4 g/dl (31.0-36.0); Mean Corpuscular Hemoglobin 32.5 pg (27.0-33.0); Mean Corpuscular Volume 91.9 fL (80.0-98.0); Mean Platelet Volume 10.3 fL (9.4-12.4); Monocytes Absolute Auto 1.1 X10*3/uL (0.1-1.2); Monocytes Percent Auto 12.3 % (2-11); Neutrophils Absolute Auto 6.1 x10*3/uL (2.0-8.3); Neutrophils Percent Auto 66.8 % (45-73); Platelet Count 186 X10*3/uL (160-400); Red Blood Count 4.09 X10*6/uL (4.60-5.80); Red Cell Distribution Width 11.7 % (11.0-16.0); White Blood Count 9.1 X10*3/uL (4.8-10.8)
[2021-12-13 08:56] LABS: Alanine Aminotransferase 25 U/L (0-40); Albumin Level 3.8 g/dL (3.5-5.0); Alkaline Phosphatase 84 U/L (39-117); Anion Gap 12 (12-20); Aspartate Amino Transferase 20 U/L (5-37); Blood Urea Nitrogen 14 mg/dL (9-16); C Reactive Protein 3.07 mg/dL (< or = 0.50); Calcium 9.3 mg/dL (8.4-10.2); Carbon Dioxide 26 mmol/L (22-29); Chloride 102 mmol/L (96-108); Creatinine Clr Calc Pharmacy 106.9; Estimated Glomerular Filt Rate > 60; Glucose Random 169 mg/dL (60-115); Potassium 4.3 mmol/L (3.3-5.1); Sodium 136 mmol/L (135-145); Total Protein 6.6 g/dL (6.5-8.0)
[2021-12-13 09:15] LABS: Erythrocyte Sedimentation Rate 44 MM/HR (0-15)
[2021-12-13] MEDS: Piperacillin Sodium/Tazobactam 4.5 GM in 0.9 % Sodium Chloride 100 ML IV (12:50)
--- NOTE | 2021-12-13 13:32 | PM.EVENT ---
Event Note Date of Service: 12/13/21 Event Note: Patient seen examined at bedside . 61-year-old male with history of diabetes, hypertension, MGUS, peripheral neuropathy, PVD, status post bilateral BKA, on Eliquis, sleep apnea who presents to the hospital with complaints of left stump swelling, redness, warmth, and pain-he went to his PCP and was thought told to go to emergency room: Lab imaging reviewed: CBC and BMP seems fine. CT/CT lower leg LT wo con IMPRESSION: Postop changes related to below-knee amputation. Subtle findings suggestive of slightly complex small fluid collection abutting the distal lateral aspect of the remaining tibia. This could reflect a hematoma, seroma, or abscess.? physical exam:coordinated in h&p note ext: has b/l bka left stamp area -mild swelling, redness, warmth, and pain. no flacutation Assessment plan coordinated in h&p note: Possible cellulitis left lower extremity,? Question of collection please see above in the CT. Will continue IV antibiotic, id evaluation, currently patient is afebrile and no leukocytosis. May need surgical evaluation if does not improve.
--- NOTE | 2021-12-13 13:40 | PM.IMHP ---
History of Present Illness Date of Service: 12/13/21 Attending physician on admission: Leidy Weeks Chief Complaint: left stump pain and swelling This is a 61 year old male with history of bilateral BKAs. He presents to the emergency department today with 2-3 weeks left stump he and swelling. The swelling has prevented him from using his left prostatic device. He denies any associated fever or chills. He called his primary care physician who recommended that he come to the emergency department for evaluation. In the ED he had a CT of the left stump which showed a fluid collection concerning for hematoma, seroma, or abscess. Lab work showed with no evidence of leukocytosis. ESR is elevated at 44 and CRP 3.07. Patient has a history of stump infection osteomyelitis and for this reason he was started on broad-spectrum antibiotics and will be admitted to the hospital for further work up. Review of Systems Review of Systems: Yes all other systems are reviewed and are negative Constitutional: Constitutional: Denies chills and Denies fever(s) Cardiovascular: Cardiovascular: Denies chest pain, Denies palpitations and Denies dyspnea Respiratory: Respiratory: Denies cough and Denies dyspnea Gastrointestinal: Gastrointestinal: Denies abdominal pain, Denies nausea and Denies vomiting Endocrine: Endocrine: Denies palpitations [facility] Medical History CIRILO (acute kidney injury) Amputated great toe of right foot Anxiety and depression Back pain COPD (chronic obstructive pulmonary disease) Diabetes Diabetic foot infection Drug-induced thrombocytopenia Hx MRSA infection Hyperlipidemia Hypertension Hyponatremia IDDM (insulin dependent diabetes mellitus) MGUS (monoclonal gammopathy of unknown significance) Neck pain Obesity Peripheral neuropathy Psychiatric diagnosis PVD (peripheral vascular disease) Sleep apnea Family History Other No history of heart disease Surgical History H/O abdominoplasty H/O colonoscopy Hx of angioplasty Hx of appendectomy Hx of foot surgery Hx of tonsillectomy Hx of umbilical hernia repair S/P anal fissurectomy S/P BKA (below knee amputation) bilateral Status post below-knee amputation Social History Household Members: None Housing: Apartment Do you presently have visiting nurse or other home services: Yes ([facility]) Alcohol intake: never Patient Tobacco Use Status: Former Tobacco user Quit Date: 30 yrs ago Tobacco use type: Cigarette Smoked in Last 30 Days: No Second Hand Smoke Exposure: No Use of substances other than those prescribed or required for medical reasons: No Advance Directives: Yes Advance Directives on File: Yes Advance Directives Date on File: 11/06/20 service: Yes Current occupational status: disabled Meds Allergies Allergy/AdvReac Type Severity Reaction Status Date / Time vancomycin AdvReac Severe thrombocyto Verified 07/22/21 10:14 penia Active Medications: Current Medications Pharmacy Consult (Consult Rx Perform Med Rec) 1 each MISCELLANE ONCE PRN PRN Reason: Consult order Home Medications Medication Instructions Recorded Confirmed Last Taken Type aspirin 81 mg tablet,delayed 81 mg PO DAILY 07/17/20 05/15/21 03/06/21 08:00 History release gabapentin 600 mg tablet 600 mg PO BID 07/17/20 05/15/21 04/10/21 History liraglutide 0.6 mg/0.1 mL (18 mg/3 1.8 mg SUBCUT DAILY 07/17/20 05/15/21 04/10/21 History mL) subcutaneous pen injector (Victoza 3-Chet) lisinopril 5 mg tablet 5 mg PO DAILY 07/17/20 05/15/21 04/10/21 History metformin 1,000 mg tablet 1,000 mg PO BID 07/17/20 05/15/21 04/10/21 History cholecalciferol (vitamin D3) 25 25 mcg PO DAILY 09/04/20 05/15/21 04/10/21 History mcg (1,000 unit) tablet atorvastatin 40 mg tablet 40 mg PO BEDTIME 10/09/20 05/15/21 04/09/21 History insulin degludec 100 unit/mL (3 85 unit SUBCUT DAILY 12/23/20 05/15/21 04/10/21 History mL) subcutaneous pen (Tresiba FlexTouch U-100 insulin) magnesium oxide 400 mg (241.3 mg 400 mg PO BID 03/07/21 05/15/21 04/10/21 History magnesium) tablet lancets 28 gauge (FreeStyle #100 ea 03/20/21 Unknown History Lancets) albuterol sulfate 90 mcg/actuation 2 puff INHALATION Q4-6H PRN 04/10/21 05/15/21 Unknown History aerosol inhaler apixaban 5 mg tablet (Eliquis) 1 tab PO Q12H 04/10/21 05/15/21 04/10/21 History fluoxetine 20 mg capsule 20 mg PO DAILY 05/26/21 Unknown History bisacodyl 5 mg tablet,delayed 5 mg PO BID 12/13/21 12/13/21 12/12/21 History release (Dulcolax (bisacodyl)) insulin aspart U-100 100 unit/mL 10 unit SUBCUT TIDAC 12/13/21 12/13/21 12/12/21 History (3 mL) subcutaneous pen (Novolog Flexpen U-100 Insulin aspart) ondansetron 4 mg disintegrating 4 mg PO Q8H PRN 12/13/21 12/13/21 12/12/21 History tablet plecanatide 3 mg tablet (Trulance) 3 mg PO DAILY 12/13/21 12/13/21 12/12/21 History polyethylene glycol 3350 17 gram 17 g PO MOWEFR@0900 12/13/21 12/13/21 12/12/21 History oral powder packet Physical Exam Vital Signs and Narrative: Vital Signs: Last Vital Signs Temp 99 F 12/13/21 08:01 Pulse 98 12/13/21 08:01 Resp 20 12/13/21 08:01 BP 133/64 12/13/21 08:01 Pulse Ox 97 12/13/21 08:01 BMI result Body Mass Index 37.9 Const: General: cooperative, healthy appearing, comfortable, no acute distress, alert and awake Nutritional Appearance: obese Orientation/consciousness: patient oriented x3 Eyes: Pupils: Equal, round and reactive pupils present EOM: EOMs intact bilaterally Resp: Effort & Inspection: normal respiratory effort and able to speak in complete sentences Cardio: Rate: regular rate Neuro: General: patient oriented x3 Cranial nerves: Yes Equal, round and reactive pupils present Extrem: Other: b/l bka left stump with warmth, swelling Results Labs CBC and Chem 7: 12/13/21 08:22 12/13/21 08:22 Labs: Laboratory Results - last 24 hr 12/13/21 12/13/21 12/13/21 08:22 08:22 08:22 MCV 91.9 MCH 32.5 MCHC 35.4 RDW 11.7 Plt Count 186 MPV 10.3 Immature Gran % (Auto) 0.5 H Neut % (Auto) 66.8 Lymph % (Auto) 18.6 L [place] % (Auto) 12.3 H Eos % (Auto) 1.4 Baso % (Auto) 0.4 Lymph # (Auto) 1.7 [place] # (Auto) 1.1 Eos # (Auto) 0.1 Baso # (Auto) 0.0 Abs Immat Gran (auto) 0.05 H Absolute Neuts (auto) 6.1 Absolute Nucleated RBC 0.000 Nucleated RBC % (auto) 0.0 ESR 44 H Anion Gap 12 Estim Creat Clear Calc 106.9 Estimated GFR > 60 Random Glucose 169 H D Calcium 9.3 Total Bilirubin 1.0 AST 20 ALT 25 Alkaline Phosphatase 84 D C-Reactive Protein 3.07 H Total Protein 6.6 Albumin 3.8 Imaging Radiologist's Impressions: Impressions Knee X-Ray 12/13/21 09:15 IMPRESSION: 1. Compared to prior baseline postoperative study dated 03/07/2021, interval development of nonspecific periosteal reaction and new bone formation around the stump of the left tibia is seen. No evidence of any soft tissue gas present. 2. 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 Lower Extremity CT 12/13/21 09:59 IMPRESSION: Postop changes related to below-knee amputation. Subtle findings suggestive of slightly complex small fluid collection abutting the distal lateral aspect of the remaining tibia. This could reflect a hematoma, seroma, or abscess. Assessment and Plan (1) Cellulitis: Status: Acute Plan This is a 61 year old male with with history of DM, PVD s/p b/l BKA, peripheral neuropathy, MGUS, h/o left stump osteo who presents with left stump redness and swelling found to have possible abscess Left stump cellulitis with possible abscess afebrile, no leukocytosis, no evidence of sepsis ESR 44/CRP 3.07 h/o MRSA infection of left stump in past allergy to vanco; will treat with daptomycin and zosyn for now surgical evaluation for ?abscess ID consult follow blood cultures diabetes SSI, POCs Tresiba, victoza NF - will convert to Lantus Hold metformin vertigo continue prn meclizine h/o PE continue Eliquis chronic constipation continue dulcolax, miralax trulance NF HLD continue statin HTN continue lisinopril dvt ppx - Eliquis code status - full code attending: dr. weeks Quality Stroke Does the patient have a stroke diagnosis?: No VTE Prior VTE?: No VTE Risk Level:: Medical - moderate - high VTE Device Contraindication: Treatment Not Indicated VTE Drug Contraindication: N/A - Med Ordered
[2021-12-13 14:06] LABS: COVID-19 Test Negative (Negative); IDNOW Serial# 16C4AD1C
--- NOTE | 2021-12-13 14:29 | PHA.MEDREC ---
Pharmacy Consult ? Medication Reconciliation Pharmacy has completed the medication reconciliation.Spoke with patient who knew all medications. patient did not take any meds today.
[2021-12-13 15:29] VITALS: BP 114/66; PULSE 78; RESP 18; TEMP 36.9; O2SAT 96
[2021-12-13] MEDS: Atorvastatin Calcium 40 MG TABLET PO (16:25)
[2021-12-13] MEDS: Apixaban 5 MG TABLET PO ×2 (16:25→20:42)
[2021-12-13] MEDS: bisacodyL 5 MG TABLET.DR PO ×2 (16:25→20:42)
[2021-12-13] MEDS: Gabapentin 600 MG TABLET PO ×2 (16:25→20:42)
[2021-12-13] MEDS: lisinopriL 5 MG TABLET PO (16:25)
[2021-12-13] MEDS: FLUoxetine HCl 20 MG CAPSULE PO (16:25)
[2021-12-13] MEDS: Acetaminophen 325 MG TABLET 650 MG PO (16:25)
[2021-12-13] MEDS: 0.9 % Sodium Chloride Flush 3 ML SYRINGE IVFLUSH ×2 (17:18→20:42)
[2021-12-13] MEDS: Insulin Lispro 100 UNIT/ML 3 ML VIAL SUBCUT ×2 (17:23→20:42)
[2021-12-13 17:26] VITALS: BMI 37.5
--- NOTE | 2021-12-13 17:39 | PC.NURSE ---
PATIENT STATES HE WAS VACCINATED X 2 AND BOOSTER X 1 - [employer]. ALSO STATES HE HAS KASSANDRA AND NEEDS TO USE ONE OF OUR BIPAP MACHINES. WILL CONTACT RESPIRATORY.
--- NOTE | 2021-12-13 17:41 | PM.CNGS ---
History of Present Illness Consult details Consult date: 12/13/21 Reason for consult: other Requesting physician: Leidy Weeks Narrative: pt with bilateral bka remote coming in with left stump cellultis and ct showing ?fluid collection on left stump. no fevers or chills. [facility] Past Medical History Medical History CIRILO (acute kidney injury) Amputated great toe of right foot Anxiety and depression Back pain COPD (chronic obstructive pulmonary disease) Diabetes Diabetic foot infection Drug-induced thrombocytopenia Hx MRSA infection Hyperlipidemia Hypertension Hyponatremia IDDM (insulin dependent diabetes mellitus) MGUS (monoclonal gammopathy of unknown significance) Neck pain Obesity Peripheral neuropathy Psychiatric diagnosis PVD (peripheral vascular disease) Sleep apnea Family History Family History Other No history of heart disease Surgical History Surgical History H/O abdominoplasty H/O colonoscopy Hx of angioplasty Hx of appendectomy Hx of foot surgery Hx of tonsillectomy Hx of umbilical hernia repair S/P anal fissurectomy S/P BKA (below knee amputation) bilateral Status post below-knee amputation Social History Social History Household Members: None Housing: House Do you presently have visiting nurse or other home services: Yes ([facility]) Alcohol intake: never Patient Tobacco Use Status: Former Tobacco user Quit Date: 30 YEARS AGO Tobacco use type: Cigarette Smoked in Last 30 Days: No Second Hand Smoke Exposure: No Use of substances other than those prescribed or required for medical reasons: No Have you been hit, kicked, punched, or otherwise hurt by someone within the past year? If so, by whom?: No Do you feel safe in your current relationship?: No Current Relationship Is there a partner from a previous relationship who is making you feel unsafe now?: No Are you made to feel afraid or neglected: No Advance Directives: Yes Advance Directives on File: Yes Advance Directives Date on File: 11/06/20 Do you have thoughts of harming others: None Do you have a plan to hurt others: No Plan Recently lost weight without trying: No Nutrition Risks: No Nutritional Risk Poor oral hygiene: No service: Yes Current occupational status: disabled Meds Allergies Allergy/AdvReac Type Severity Reaction Status Date / Time vancomycin AdvReac Severe thrombocyto Verified 07/22/21 10:14 penia Active Medications: Current Medications Acetaminophen (Acetaminophen 325 Mg Tablet) 650 mg PO Q6H PRN PRN Reason: Pain, Mild (Pain Scale 1-3) Last Admin: 12/13/21 16:25 Dose: 650 mg Documented by: Albuterol Sulfate (Albuterol Sulfate 90 Mcg 8 Gm Inhaler) 2 puff INHALE Q4H PRN PRN Reason: Shortness Of Breath Apixaban (Apixaban 5 Mg Tablet) 5 mg PO BID [facility] Last Admin: 12/13/21 16:25 Dose: 5 mg Documented by: Aspirin (Aspirin Enteric Coated 81 Mg Tablet.) 81 mg PO DAILY [facility] Atorvastatin Calcium (Atorvastatin Calcium 40 Mg Tablet) 40 mg PO DAILY [facility] Last Admin: 12/13/21 16:25 Dose: 40 mg Documented by: Bisacodyl (Bisacodyl 5 Mg Tablet.) 5 mg PO BID [facility] Last Admin: 12/13/21 16:25 Dose: 5 mg Documented by: Dextrose (Dextrose 50 % 25 Gm/50 Ml Syringe) 25 gm IVPUSH Q15M PRN; Protocol PRN Reason: per Hypoglycemia Standing Ord. Docusate Sodium (Docusate Sodium 100 Mg Capsule) 100 mg PO DAILY PRN PRN Reason: Constipation Fluoxetine HCl (Fluoxetine Hcl 20 Mg Capsule) 20 mg PO DAILY [facility] Last Admin: 12/13/21 16:25 Dose: 20 mg Documented by: Gabapentin (Gabapentin 600 Mg Tablet) 600 mg PO BID [facility] Last Admin: 12/13/21 16:25 Dose: 600 mg Documented by: Glucose (Glucose Gel 15 Gm Gel..Gram.) 15 gm PO Q15M PRN; Protocol PRN Reason: per Hypoglycemia Standing Ord. Piperacillin Sod/Tazobactam (Sod 3.375 gm/ Sodium Chloride) 50 mls @ 100 mls/hr IV Q6H [facility] Daptomycin 500 mg/ Sodium (Chloride) 60 mls @ 93.184 mls/hr IV Q24H [facility] Insulin Glargine (Insulin Glargine,Hum.Rec.Anlog 100 Unit/Ml 10 Ml Vial) 21 unit SUBCUT BID [facility] Insulin Human Lispro (Insulin Lispro 100 Unit/Ml 3 Ml Vial) 0 unit SUBCUT QIDACHS [facility]; Protocol Last Admin: 12/13/21 17:23 Dose: 2 unit Documented by: Lisinopril (Lisinopril 5 Mg Tablet) 5 mg PO DAILY [facility]; Protocol Last Admin: 12/13/21 16:25 Dose: 5 mg Documented by: Magnesium Oxide (Magnesium Oxide 400 Mg Tablet) 400 mg PO BID [facility] Meclizine HCl (Meclizine Hcl 25 Mg Tablet) 25 mg PO DAILY PRN PRN Reason: dizziness Non-Formulary Medication (Plecanatide [Trulance]) 3 mg PO DAILY [facility] Ondansetron HCl (Ondansetron Hcl 4 Mg/2 Ml Vial) 4 mg IVPUSH Q8H PRN PRN Reason: Nausea and Vomiting Oxycodone HCl (Oxycodone Hcl Immed Release 5 Mg Tablet) 5 mg PO Q6H PRN PRN Reason: Pain, Moderate (Pain Scale 4-6 Pharmacy Consult (Consult Rx Perform Med Rec) 1 each MISCELLANE ONCE PRN PRN Reason: Consult order Polyethylene Glycol (Polyethylene Glycol 3350 17 Gm Powd.Pack) 17 gm PO MOWEFR@0900 PRN PRN Reason: Constipation Sodium Chloride (0.9 % Sodium Chloride Flush 3 Ml Syringe) 3 ml IVFLUSH QSHIFT [facility] Last Admin: 12/13/21 17:18 Dose: 3 ml Documented by: Vitamin D (Cholecalciferol (Vitamin D3) 25 Mcg Tablet) 25 mcg PO DAILY [facility] Home Medications Medication Instructions Recorded Confirmed Last Taken Type aspirin 81 mg tablet,delayed 81 mg PO DAILY 07/17/20 12/13/21 12/12/21 History release gabapentin 600 mg tablet 600 mg PO BID 07/17/20 12/13/21 12/12/21 History liraglutide 0.6 mg/0.1 mL (18 mg/3 1.8 mg SUBCUT DAILY 07/17/20 12/13/21 12/12/21 History mL) subcutaneous pen injector (Victoza 3-Chet) lisinopril 5 mg tablet 5 mg PO DAILY 07/17/20 12/13/21 12/12/21 History metformin 1,000 mg tablet 1,000 mg PO BID 07/17/20 12/13/21 12/12/21 History cholecalciferol (vitamin D3) 25 25 mcg PO DAILY 09/04/20 12/13/21 12/12/21 History mcg (1,000 unit) tablet atorvastatin 40 mg tablet 40 mg PO DAILY 10/09/20 12/13/21 04/09/21 History insulin degludec 100 unit/mL (3 30 unit SUBCUT BID 12/23/20 12/13/21 12/12/21 History mL) subcutaneous pen (Tresiba FlexTouch U-100 insulin) magnesium oxide 400 mg (241.3 mg 400 mg PO BID 03/07/21 12/13/21 12/12/21 History magnesium) tablet lancets 28 gauge (FreeStyle #100 ea 03/20/21 Unknown History Lancets) albuterol sulfate 90 mcg/actuation 2 puff INHALATION Q4-6H PRN 04/10/21 12/13/21 Unknown History aerosol inhaler apixaban 5 mg tablet (Eliquis) 1 tab PO BID 04/10/21 12/13/21 12/12/21 History fluoxetine 20 mg capsule 20 mg PO DAILY 05/26/21 12/13/21 12/12/21 History bisacodyl 5 mg tablet,delayed 5 mg PO BID 12/13/21 12/13/21 12/12/21 History release (Dulcolax (bisacodyl)) insulin aspart U-100 100 unit/mL 10 unit SUBCUT TIDAC 12/13/21 12/13/21 12/12/21 History (3 mL) subcutaneous pen (Novolog Flexpen U-100 Insulin aspart) ondansetron 4 mg disintegrating 4 mg PO Q8H PRN 12/13/21 12/13/21 Unknown History tablet plecanatide 3 mg tablet (Trulance) 3 mg PO DAILY 12/13/21 12/13/21 12/12/21 History polyethylene glycol 3350 17 gram 17 g PO MOWEFR@0900 PRN 12/13/21 12/13/21 Unknown History oral powder packet Physical Exam Vital Signs: Vital Signs: Last Vital Signs Temp 98.4 F 12/13/21 15:29 Pulse 78 12/13/21 15:29 Resp 18 12/13/21 15:29 BP 114/66 12/13/21 15:29 Pulse Ox 96 12/13/21 15:29 BMI result Body Mass Index 37.5 Extrem: Other: right bka looks good left bka with end stump swelling and cellulitic changes and an area of fluctuance on the end of the stump - nontender no skin opening stump looks well vascularized Results Labs Result diagrams: 12/13/21 08:22 12/13/21 08:22 Labs: Abnormal lab results 12/13/21 12/13/21 12/13/21 Range/Units 08:22 08:22 08:22 RBC 4.09 L (4.60-5.80) X10*6/uL Hgb 13.3 L (14.0-18.0) g/dl Hct 37.6 L (42.0-52.0) % Immature Gran % (Auto) 0.5 H (0.0-0.4) % Lymph % (Auto) 18.6 L (20-40) % Motley % (Auto) 12.3 H (2-11) % Abs Immat Gran (auto) 0.05 H (0.00-0.03) X10*3/uL ESR 44 H (0-15) MM/HR Random Glucose 169 H D (60-115) mg/dL C-Reactive Protein 3.07 H (< or = 0.50) mg/dL Short CBC 12/13/21 Range/Units 08:22 WBC 9.1 (4.8-10.8) X10*3/uL Hgb 13.3 L (14.0-18.0) g/dl Hct 37.6 L (42.0-52.0) % Plt Count 186 (160-400) X10*3/uL BMP 12/13/21 08:22 Sodium 136 Potassium 4.3 Chloride 102 Carbon Dioxide 26 BUN 14 Creatinine 0.93 Calcium 9.3 Liver Function 12/13/21 Range/Units 08:22 Total Bilirubin 1.0 (0.0-1.0) mg/dL AST 20 (5-37) U/L ALT 25 (0-40) U/L Alkaline Phosphatase 84 D (39-117) U/L Albumin 3.8 (3.5-5.0) g/dL All other labs normal. Imaging Additional studies: ct of stump showed ? abscess fluid collection Assessment and Plan (1) Abscess: Status: Acute Plan 61 alexis old male with left stump fluid collection, small on CTscan - area of fluctuance by physical exam and 18 gauge needle aspiration reveals old hematoma not appearing infected vs true abscess. suggest cont iv antibx and protect stump edge for now. Procedures Date of Service Date of Service: 12/13/21 Abscess I/D Consent for Procedure: Elective - informed consent obtained Site: lower extremity Side (if applicable): left Sedation/analgesia: none Technique: needle aspiration Amount of fluid (mL): 4 Irrigation: No Packing used?: none Additional comments: fluctuant area prepped with betadine and 18 gauge needle used to aspirate 4 cc of dark bloody material - ? old hematoma. tolerated well and bandaged
[2021-12-13] MEDS: Piperacillin Sodium/Tazobactam 3.375 GM in 0.9 % Sodium Chloride 50 ML IV ×2 (18:06→23:27)
[2021-12-13 20:40] VITALS: BP 118/63; PULSE 81; RESP 20; TEMP 37.7; O2SAT 95
[2021-12-13] MEDS: Insulin Glargine,Hum.rec.anlog 100 UNIT/ML 10 ML VIAL 21 UNIT SUBCUT (20:42)
[2021-12-13] MEDS: Magnesium Oxide 400 MG TABLET PO (20:42)
[2021-12-13 23:20] VITALS: BP 118/60; PULSE 83; RESP 16; TEMP 37.1; O2SAT 95
[2021-12-14 03:56] VITALS: BP 106/59; PULSE 87; RESP 18; TEMP 37.2; O2SAT 95
[2021-12-14] MEDS: Piperacillin Sodium/Tazobactam 3.375 GM in 0.9 % Sodium Chloride 50 ML IV ×4 (05:13→23:33)
[2021-12-14 07:33] VITALS: BP 121/66; PULSE 83; RESP 18; TEMP 37.1; O2SAT 95
[2021-12-14 08:42] LABS: Anion Gap 12 (12-20); Blood Urea Nitrogen 18 mg/dL (9-16); Calcium 9.1 mg/dL (8.4-10.2); Carbon Dioxide 28 mmol/L (22-29); Chloride 102 mmol/L (96-108); Creatinine Clr Calc Pharmacy 85.9; Estimated Glomerular Filt Rate > 60; Glucose Random 187 mg/dL (60-115); Sodium 137 mmol/L (135-145)
[2021-12-14] MEDS: 0.9 % Sodium Chloride Flush 3 ML SYRINGE IVFLUSH ×3 (08:50→22:02)
[2021-12-14] MEDS: Magnesium Oxide 400 MG TABLET PO ×2 (08:51→21:53)
[2021-12-14] MEDS: Apixaban 5 MG TABLET PO ×2 (08:51→21:53)
[2021-12-14] MEDS: FLUoxetine HCl 20 MG CAPSULE PO (08:51)
[2021-12-14] MEDS: bisacodyL 5 MG TABLET.DR PO ×2 (08:51→21:53)
[2021-12-14] MEDS: Gabapentin 600 MG TABLET PO ×2 (08:51→21:53)
[2021-12-14] MEDS: Atorvastatin Calcium 40 MG TABLET PO (08:51)
[2021-12-14] MEDS: Aspirin Enteric Coated 81 MG TABLET.DR PO (08:51)
[2021-12-14] MEDS: lisinopriL 5 MG TABLET PO (08:51)
[2021-12-14] MEDS: Cholecalciferol (Vitamin D3) 25 MCG TABLET PO (08:51)
[2021-12-14] MEDS: Insulin Glargine,Hum.rec.anlog 100 UNIT/ML 10 ML VIAL 21 UNIT SUBCUT ×2 (08:56→22:00)
--- NOTE | 2021-12-14 09:37 | MHC.CM.PN ---
Patient lives in [facility]. He lives alone in his apartment, but has multiple interactions w/other vets each day. 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 He indicates it gets to the point where he feels bad; they have nothing to do all day. His D/C plan is home w/VNA should it bee needed. If VNA is required for his home D/C, he would like [facility], he has had them in the past. He is hoping for PT to come and see him in the hospital to help give him pointers on how to better get around. This RMCM explained there is no PT on Sundays, but potentially could see PT this coming week should the MD feel it warranted. His D/C plan is to return home w/his right of way supervisor and potentially VNA should the MDs determine it necessary. Transport will need to be set up for him upon D/C. CMN to follow.
[2021-12-14 11:23] VITALS: BP 134/76; PULSE 84; RESP 20; TEMP 36.2; O2SAT 95
[2021-12-14] MEDS: Insulin Lispro 100 UNIT/ML 3 ML VIAL SUBCUT ×3 (12:01→21:53)
--- NOTE | 2021-12-14 12:14 | P.PNIM_ITS ---
Subjective Subjective Date of Service: 12/14/21 <GABINO Aguilar - Last Filed: 12/14/21 12:19> 12/14/21 <Leidy Weeks MD - Last Filed: 12/14/21 16:05> Interval History: seen and examined this morning follow up for cellulitis/possible abscess reporting chills pain at left stump <GABINO Aguilar - Last Filed: 12/14/21 12:19> Review of Systems Review of Systems: Yes all other systems are reviewed and are negative <GABINO Aguilar - Last Filed: 12/14/21 12:19> Constitutional Constitutional: Reports chills and Denies fever(s) <GABINO Aguilar - Last Filed: 12/14/21 12:19> Cardiovascular Cardiovascular: Denies chest pain, Denies palpitations and Denies dyspnea <GABINO Aguilar - Last Filed: 12/14/21 12:19> Respiratory Respiratory: Denies cough and Denies dyspnea <GABINO Aguilar - Last Filed: 12/14/21 12:19> Gastrointestinal Gastrointestinal: Denies abdominal pain, Denies nausea and Denies vomiting <GABINO Aguilar - Last Filed: 12/14/21 12:19> Endocrine Endocrine: Denies palpitations <GABINO Aguilar - Last Filed: 12/14/21 12:19> Physical Exam Vital Signs: Vital Signs: Last Vital Signs Temp 97.2 F 12/14/21 11:23 Pulse 84 12/14/21 11:23 Resp 20 12/14/21 11:23 BP 134/76 12/14/21 11:23 Pulse Ox 95 12/14/21 11:23 BMI result Body Mass Index 37.5 <GABINO Aguilar - Last Filed: 12/14/21 12:19> Const: General: cooperative, healthy appearing, comfortable, no acute distress, alert and awake <GABINO Aguilar - Last Filed: 12/14/21 12:19> Nutritional Appearance: obese <GABINO Aguilar - Last Filed: 12:19> Orientation/consciousness: patient oriented x3 <GABINO Aguilar - Last Filed: 12/14/21 12:19> Eyes: Pupils: Equal, round and reactive pupils present <GABINO Aguilar Last Filed: 12/14/21 12:19> EOM: EOMs intact bilaterally <GABINO Aguilar - Last Filed: 12/14/21 12:19> Resp: Effort & Inspection: normal respiratory effort and able to speak in complete sentences <GABINO Aguilar - Last Filed: 12/14/21 12:19> Cardio: Rate: regular rate <GABINO Aguilar - Last Filed: 12/14/21 12:19> Skin: Other: similar to yesterday, there is an area of fluctuance at left stump <GABINO Aguilar - Last Filed: 12/14/21 12:19> Neuro: General: patient oriented x3 <GABINO Aguilar - Last Filed: 12/14/21 12:19> Cranial nerves: Yes Equal, round and reactive pupils present <GABINO Aguilar - Last Filed: 12/14/21 12:19> Extrem: Other: b/l bka left stump with warmth, swelling <GABINO Aguilar - Last Filed: 12/14/21 12:19> Objective Data Active Medications Acetaminophen (Acetaminophen 325 Mg Tablet) 650 mg PO Q6H PRN PRN Reason: Pain, Mild (Pain Scale 1-3) Last Admin: 12/13/21 16:25 Dose: 650 mg Documented by: CHENTE Albuterol Sulfate (Albuterol Sulfate 90 Mcg 8 Gm Inhaler) 2 puff INHALE Q4H PRN PRN Reason: Shortness Of Breath Apixaban (Apixaban 5 Mg Tablet) 5 mg PO BID [facility] Last Admin: 12/14/21 08:51 Dose: 5 mg Documented by: COTKOBE Aspirin (Aspirin Enteric Coated 81 Mg Tablet.) 81 mg PO DAILY [facility] Last Admin: 12/14/21 08:51 Dose: 81 mg Documented by: COTKOBE Atorvastatin Calcium (Atorvastatin Calcium 40 Mg Tablet) 40 mg PO DAILY [facility] Last Admin: 12/14/21 08:51 Dose: 40 mg Documented by: HO.COTEMA Bisacodyl (Bisacodyl 5 Mg Tablet.Dr) 5 mg PO BID [facility] Last Admin: 12/14/21 08:51 Dose: 5 mg Documented by: NILA Dextrose (Dextrose 50 % 25 Gm/50 Ml Syringe) 25 gm IVPUSH Q15M PRN; Protocol PRN Reason: per Hypoglycemia Standing Ord. Docusate Sodium (Docusate Sodium 100 Mg Capsule) 100 mg PO DAILY PRN PRN Reason: Constipation Fluoxetine HCl (Fluoxetine Hcl 20 Mg Capsule) 20 mg PO DAILY [facility] Last Admin: 12/14/21 08:51 Dose: 20 mg Documented by: COTEMA Gabapentin (Gabapentin 600 Mg Tablet) 600 mg PO BID [facility] Last Admin: 12/14/21 08:51 Dose: 600 mg Documented by: NILA Glucose (Glucose Gel 15 Gm Gel..Gram.) 15 gm PO Q15M PRN; Protocol PRN Reason: per Hypoglycemia Standing Ord. Piperacillin Sod/Tazobactam (Sod 3.375 gm/ Sodium Chloride) 50 mls @ 100 mls/hr IV Q6H [facility] Last Admin: 12/14/21 12:01 Dose: 100 mls/hr Documented by: NILA Daptomycin 500 mg/ Sodium (Chloride) 60 mls @ 93.184 mls/hr IV Q24H [facility] Insulin Glargine (Insulin Glargine,Hum.Rec.Anlog 100 Unit/Ml 10 Ml Vial) 21 unit SUBCUT BID [facility] Last Admin: 12/14/21 08:56 Dose: 21 unit Documented by: NILA Insulin Human Lispro (Insulin Lispro 100 Unit/Ml 3 Ml Vial) 0 unit SUBCUT QIDACHS [facility]; Protocol Last Admin: 12/14/21 12:01 Dose: 4 unit Documented by: NILA Comments: poc 246 Lisinopril (Lisinopril 5 Mg Tablet) 5 mg PO DAILY [facility]; Protocol Last Admin: 12/14/21 08:51 Dose: 5 mg Documented by: NILA Magnesium Oxide (Magnesium Oxide 400 Mg Tablet) 400 mg PO BID [facility] Last Admin: 12/14/21 08:51 Dose: 400 mg Documented by: NILA Meclizine HCl (Meclizine Hcl 25 Mg Tablet) 25 mg PO DAILY PRN PRN Reason: dizziness Non-Formulary Medication (Plecanatide [Trulance]) 3 mg PO DAILY [facility] Ondansetron HCl (Ondansetron Hcl 4 Mg/2 Ml Vial) 4 mg IVPUSH Q8H PRN PRN Reason: Nausea and Vomiting Oxycodone HCl (Oxycodone Hcl Immed Release 5 Mg Tablet) 5 mg PO Q6H PRN PRN Reason: Pain, Moderate (Pain Scale 4-6 Pharmacy Consult (Consult Rx Perform Med Rec) 1 each MISCELLANE ONCE PRN PRN Reason: Consult order Polyethylene Glycol (Polyethylene Glycol 3350 17 Gm Powd.Pack) 17 gm PO MOWEFR@0900 PRN PRN Reason: Constipation Sodium Chloride (0.9 % Sodium Chloride Flush 3 Ml Syringe) 3 ml IVFLUSH QSHIFT [facility] Last Admin: 12/14/21 08:50 Dose: 3 ml Documented by: NILA Vitamin D (Cholecalciferol (Vitamin D3) 25 Mcg Tablet) 25 mcg PO DAILY [facility] Last Admin: 12/14/21 08:51 Dose: 25 mcg Documented by: NILA <GABINO Aguilar - Last Filed: 12/14/21 12:19> Labs CBC & Chem 7: : 12/13/21 08:22 12/14/21 06:03 <GABINO Aguilar - Last Filed: 12/14/21 12:19> Labs: Laboratory Results - last 24 hr 12/13/21 12/14/21 13:39 06:03 Anion Gap 12 Estim Creat Clear Calc 85.9 Estimated GFR > 60 Random Glucose 187 H Calcium 9.1 COVID-19 (JOSE) Negative COVID-19 Clin Com See Note <GABINO Aguilar - Last Filed: 12/14/21 12:19> Microbiology Microbiology Results: Microbiology 12/13/21 08:22 Blood Culture - Preliminary Blood - Venous No growth after 24 hours. <GABINO Aguilar - Last Filed: 12/14/21 12:19> Assessment and Plan (1) Cellulitis: Status: Acute <GABINO Aguilar - Last Filed: 12/14/21 12:19> Plan This is a 61 year old male with with history of DM, PVD s/p b/l BKA, peripheral neuropathy, MGUS, h/o left stump osteo who presents with left stump redness and swelling found to have possible abscess Left stump cellulitis with possible abscess afebrile, no leukocytosis, no evidence of sepsis ESR 44/CRP 3.07 h/o MRSA infection of left stump in past; h/o of osteo allergy to vanco; will treat with daptomycin and zosyn for now seen by surgery, aspiration ?hematoma, no fluid studies sent for analysis ID consult follow blood cultures dysuria UA pending diabetes SSI, POCs Tresiba, victoza NF - will convert to Lantus Hold metformin vertigo continue prn meclizine h/o PE continue Eliquis chronic constipation continue dulcolax, miralax trulance NF HLD continue statin HTN continue lisinopril dvt ppx - Eliquis code status - full code attending: dr. weeks patient requires ongoing inpatient hospitalization due to concern over possible abscess; h/o MRSA/osteomyelitis in the past and diabetic therefore at risk for progression to severe infection/sepsis; requires ID evaluation <GABINO Aguilar - Last Filed: 12/14/21 12:19> Quality Stroke Does the patient have a stroke diagnosis?: No <GABINO Aguilar - Last Filed: 12/14/21 12:19> VTE Prior VTE?: No <GABINO Aguilar - Last Filed: 12/14/21 12:19> VTE Risk Level:: Medical - moderate - high <GABINO Aguilar Last Filed: 12/14/21 12:19> VTE Device Contraindication: Treatment Not Indicated <GABINO Aguilar Last Filed: 12/14/21 12:19> VTE Drug Contraindication: N/A - Med Ordered <GABINO Aguilar - Last Filed: 12/14/21 12:19>
[2021-12-14] MEDS: Acetaminophen 325 MG TABLET 650 MG PO (12:17)
[2021-12-14] MEDS: Docusate Sodium 100 MG CAPSULE PO (12:17)
[2021-12-14] MEDS: bisacodyL 10 MG SUPP.RECT PR (14:07)
[2021-12-14 14:37] LABS: Appearance Urine CLEAR; Color Urine YELLOW; Glucose Urine UA NEG (NEG); Leukocyte Esterase Urine NEG (NEG); Nitrite Urine NEG (NEG); PH 5.5 (5.0-8.0); Specific Gravity - Urine 1.025 (1.005-1.025); Urine Blood NEG (NEG); Urine Ketones 5 MG/DL (NEG); Urine Protein NEG (NEG-TRACE)
[2021-12-14 14:48] LABS: Squamous Epithelial Cell Urine 1+ /LPF
[2021-12-14 14:50] LABS: Bacteria Urine TRACE /LPF; RBC Urine 0 /HPF (0); WBC Urine 0-2 /HPF (0-4)
[2021-12-14] MEDS: DAPTOmycin 500 MG in 0.9 % Sodium Chloride 50 ML 93.18 MG IV (15:04)
[2021-12-14 15:51] VITALS: BP 110/57; PULSE 84; RESP 18; TEMP 38.6; O2SAT 97
[2021-12-14 19:44] VITALS: BP 128/67; PULSE 80; RESP 18; TEMP 37.3; O2SAT 95
[2021-12-14 23:48] VITALS: BP 135/68; PULSE 76; RESP 18; TEMP 37.6; O2SAT 94
[2021-12-15 03:20] VITALS: BP 124/60; PULSE 68; RESP 18; TEMP 36.8; O2SAT 96
[2021-12-15] MEDS: Piperacillin Sodium/Tazobactam 3.375 GM in 0.9 % Sodium Chloride 50 ML IV ×3 (05:38→18:15)
[2021-12-15 06:21] LABS: Anion Gap 11 (12-20); Blood Urea Nitrogen 22 mg/dL (9-16); Calcium 8.9 mg/dL (8.4-10.2); Carbon Dioxide 27 mmol/L (22-29); Chloride 102 mmol/L (96-108); Estimated Glomerular Filt Rate > 60; Glucose Random 210 mg/dL (60-115); Potassium 4.9 mmol/L (3.3-5.1); Sodium 135 mmol/L (135-145)
[2021-12-15 06:59] VITALS: BP 127/72; PULSE 70; RESP 20; TEMP 36.7; O2SAT 95
[2021-12-15] MEDS: Gabapentin 600 MG TABLET PO ×2 (08:41→21:20)
[2021-12-15] MEDS: Insulin Lispro 100 UNIT/ML 3 ML VIAL SUBCUT ×4 (08:41→21:21)
[2021-12-15] MEDS: lisinopriL 5 MG TABLET PO (08:41)
[2021-12-15] MEDS: Magnesium Oxide 400 MG TABLET PO ×2 (08:41→21:20)
[2021-12-15] MEDS: Cholecalciferol (Vitamin D3) 25 MCG TABLET PO (08:41)
[2021-12-15] MEDS: Atorvastatin Calcium 40 MG TABLET PO (08:41)
[2021-12-15] MEDS: Aspirin Enteric Coated 81 MG TABLET.DR PO (08:41)
[2021-12-15] MEDS: Apixaban 5 MG TABLET PO ×2 (08:41→21:20)
[2021-12-15] MEDS: bisacodyL 5 MG TABLET.DR PO ×2 (08:41→21:20)
[2021-12-15] MEDS: Insulin Glargine,Hum.rec.anlog 100 UNIT/ML 10 ML VIAL 21 UNIT SUBCUT ×2 (08:41→21:21)
[2021-12-15] MEDS: FLUoxetine HCl 20 MG CAPSULE PO (08:41)
[2021-12-15] MEDS: 0.9 % Sodium Chloride Flush 3 ML SYRINGE IVFLUSH ×3 (08:42→21:29)
[2021-12-15 11:17] VITALS: BP 119/65; PULSE 75; RESP 20; TEMP 36.4; O2SAT 95
--- NOTE | 2021-12-15 11:51 | P.PNIM_ITS ---
Subjective Subjective Date of Service: 12/15/21 Interval History: L stump swollen no fever/chills no nausea/vomiting c/o constipation Review of Systems Review of Systems: Yes all other systems are reviewed and are negative Physical Exam Vital Signs: Vital Signs: Last Vital Signs Temp 97.5 F 12/15/21 11:17 Pulse 75 12/15/21 11:17 Resp 20 12/15/21 11:17 BP 119/65 12/15/21 11:17 Pulse Ox 95 12/15/21 11:17 BMI result Body Mass Index 37.5 Gen: in no acute distress HEENT: sclera anicteric, moist mucus membranes Neck: supple Lungs: clear to auscultation bilaterally Heart: regular rate and rhythm, no murmurs Abd: soft, non-tender, non-distended Ext: bilateral BKA, L stump with swollen/boggy area without discharge Skin: warm/well-perfused Neuro: alert and oriented x3, no focal findings Psych: appropriate affect Objective Data Active Medications Acetaminophen (Acetaminophen 325 Mg Tablet) 650 mg PO Q6H PRN PRN Reason: Pain, Mild (Pain Scale 1-3) Last Admin: 12/14/21 12:17 Dose: 650 mg Documented by: NILA Albuterol Sulfate (Albuterol Sulfate 90 Mcg 8 Gm Inhaler) 2 puff INHALE Q4H PRN PRN Reason: Shortness Of Breath Apixaban (Apixaban 5 Mg Tablet) 5 mg PO BID [facility] Last Admin: 12/15/21 08:41 Dose: 5 mg Documented by: ARUNA Aspirin (Aspirin Enteric Coated 81 Mg Tablet.) 81 mg PO DAILY [facility] Last Admin: 12/15/21 08:41 Dose: 81 mg Documented by: ARUNA Atorvastatin Calcium (Atorvastatin Calcium 40 Mg Tablet) 40 mg PO DAILY [facility] Last Admin: 12/15/21 08:41 Dose: 40 mg Documented by: ARUNA Bisacodyl (Bisacodyl 5 Mg Tablet.) 5 mg PO BID [facility] Last Admin: 12/15/21 08:41 Dose: 5 mg Documented by: ARUNA Dextrose (Dextrose 50 % 25 Gm/50 Ml Syringe) 25 gm IVPUSH Q15M PRN; Protocol PRN Reason: per Hypoglycemia Standing Ord. Docusate Sodium (Docusate Sodium 100 Mg Capsule) 100 mg PO DAILY PRN PRN Reason: Constipation Last Admin: 12/14/21 12:17 Dose: 100 mg Documented by: NILA Fluoxetine HCl (Fluoxetine Hcl 20 Mg Capsule) 20 mg PO DAILY [facility] Last Admin: 12/15/21 08:41 Dose: 20 mg Documented by: ARUNA Gabapentin (Gabapentin 600 Mg Tablet) 600 mg PO BID [facility] Last Admin: 12/15/21 08:41 Dose: 600 mg Documented by: ARUNA Glucose (Glucose Gel 15 Gm Gel..Gram.) 15 gm PO Q15M PRN; Protocol PRN Reason: per Hypoglycemia Standing Ord. Piperacillin Sod/Tazobactam (Sod 3.375 gm/ Sodium Chloride) 50 mls @ 100 mls/hr IV Q6H [facility] Last Infusion: 12/15/21 06:17 Dose: 100 mls/hr Documented by: JOSEF Daptomycin 500 mg/ Sodium (Chloride) 60 mls @ 93.184 mls/hr IV Q24H [facility] Last Infusion: 12/14/21 15:51 Dose: 0 mls/hr Documented by: NILA Insulin Glargine (Insulin Glargine,Hum.Rec.Anlog 100 Unit/Ml 10 Ml Vial) 21 unit SUBCUT BID [facility] Last Admin: 12/15/21 08:41 Dose: 21 unit Documented by: ARUNA Insulin Human Lispro (Insulin Lispro 100 Unit/Ml 3 Ml Vial) 0 unit SUBCUT QIDACHS [facility]; Protocol Last Admin: 12/15/21 08:41 Dose: 2 unit Documented by: ARUNA Lactulose (Lactulose 20 Gm/30 Ml Solution) 30 gm PO TID [facility] Lisinopril (Lisinopril 5 Mg Tablet) 5 mg PO DAILY [facility]; Protocol Last Admin: 12/15/21 08:41 Dose: 5 mg Documented by: ARUNA Magnesium Oxide (Magnesium Oxide 400 Mg Tablet) 400 mg PO BID [facility] Last Admin: 12/15/21 08:41 Dose: 400 mg Documented by: ARUNA Meclizine HCl (Meclizine Hcl 25 Mg Tablet) 25 mg PO DAILY PRN PRN Reason: dizziness Non-Formulary Medication (Plecanatide [Trulance]) 3 mg PO DAILY [facility] Ondansetron HCl (Ondansetron Hcl 4 Mg/2 Ml Vial) 4 mg IVPUSH Q8H PRN PRN Reason: Nausea and Vomiting Oxycodone HCl (Oxycodone Hcl Immed Release 5 Mg Tablet) 5 mg PO Q6H PRN PRN Reason: Pain, Moderate (Pain Scale 4-6 Pharmacy Consult (Consult Rx Perform Med Rec) 1 each MISCELLANE ONCE PRN PRN Reason: Consult order Polyethylene Glycol (Polyethylene Glycol 3350 17 Gm Powd.Pack) 17 gm PO MOWEFR@0900 PRN PRN Reason: Constipation Sodium Chloride (0.9 % Sodium Chloride Flush 3 Ml Syringe) 3 ml IVFLUSH QSHIFT [facility] Last Admin: 12/15/21 08:42 Dose: 3 ml Documented by: ARUNA Vitamin D (Cholecalciferol (Vitamin D3) 25 Mcg Tablet) 25 mcg PO DAILY [facility] Last Admin: 12/15/21 08:41 Dose: 25 mcg Documented by: ARUNA Labs CBC & Chem 7: 12/13/21 08:22 12/15/21 05:19 Labs: Laboratory Results - last 24 hr 12/14/21 12/15/21 14:29 05:19 Anion Gap 11 L Estim Creat Clear Calc 89.0 Estimated GFR > 60 Random Glucose 210 H Calcium 8.9 Urine Color YELLOW Urine Appearance CLEAR Urine pH 5.5 Ur Specific [place] 1.025 Urine Protein NEG Urine Glucose (UA) NEG Urine Ketones 5 Urine Blood NEG Urine Nitrite NEG Ur Leukocyte Esterase NEG Urine RBC 0 Urine WBC 0-2 Ur Squamous Epith Cells 1+ Urine Bacteria TRACE Microbiology Microbiology Results: Microbiology 12/13/21 08:22 Blood Culture - Preliminary Blood - Venous No growth after 48 hours. 12/13/21 11:15 Blood Culture - Preliminary Blood - Venous No growth after 24 hours. Assessment and Plan (1) Cellulitis: Status: Acute Plan hospital d#3 61yo M with hx of DM2, PVD s/p bilateral BKA, peripheral neuropathy, MGUS, h/o left stump MRSA osteomyelitis who presents with left stump redness and swelling concerning for abscess vs. hematoma vs seroma # left stump cellulitis with possible abscess vs hematoma - not septic, ESR 44, CRP 3.07 - on dapto + pip/malik d#3 [allergic to vancomycin] - bedside aspiration by Gen Surg suggests hematoma rather than abscess - Vasc Surg consult - BCx + ID consult pending # DM2 - basal/bolus insulin, hold MTF, also on Victoza at home # constipation - continue bowel regimen- add lactulose # vertigo - prn meclizine # hx PE - apixaban # HLD - continue statin # HTN - continue lisinopril # VTE ppx - apixaban # dispo - possibly home tomorrow In my clinical judgment, the patient requires continued hospitalization for the following reasons: IV ABX for stump cellulitis + possible abscess Quality Stroke Does the patient have a stroke diagnosis?: No VTE Prior VTE?: No VTE Risk Level:: Medical - moderate - high VTE Device Contraindication: Treatment Not Indicated VTE Drug Contraindication: N/A - Med Ordered
[2021-12-15] MEDS: Lactulose 20 GM/30 ML SOLUTION 30 GM PO ×3 (12:32→21:20)
--- NOTE | 2021-12-15 12:58 | P.CONGS_ITS ---
History of Present Illness Consult details Consult date: 12/15/21 Reason for consult: wound care (Left BKA stump wound) Narrative: Pleasant 61-year-old gentleman well known to me status post bilateral BKA ease. Most recently was at his prosthetic place for ill fitting BKA prosthetic. It was recognized that it was swollen and there was some cellulitis. Was subs equently sent into the emergency room for evaluation and treatment. There is concern of an underlying hematoma. Per discussion with the patient he denies any trauma but he does have restless leg of that stump. He does not recall hitting it anywhere. At that point the stump was subsequently drained. There was no abscess encountered but there was underlying hematoma. Subsequently declared itself. He was been admitted for IV antibiotic treatment. He now presents to us for vascular evaluation. Review of Systems Review of Systems: Yes all other systems are reviewed and are negative Constitutional: Constitutional: Reports no additional constitutional compl aints ENT: Reports Normal hearing present Cardiovascular: Cardiovascular: Denies chest pain, Denies chest pain at rest, Denies chest pain with activity and Denies pedal edema Respiratory: Respiratory: Denies cough Gastrointestinal: Gastrointestinal: Denies abdominal pain Musculoskeletal: Musculoskeletal: Denies abnormal gait, Denies muscle cramps and Denies radiating pain into limb Integumentary/Breasts: Skin/Breast: Denies skin ulcer and Denies wounds Neurologic: Reports Normal hearing present and Denies abnormal gait Psychiatric: Psychiatric: Reports no additional psychiatric complaints PMFSH Past Medical History Medical History CIRILO (acute kidney injury) Amputated great toe of right foot Anxiety and depression Back pain COPD (chronic obstructive pulmonary disease) Diabetes Diabetic foot infection Drug-induced thrombocytopenia Hx MRSA infection Hyperlipidemia Hypertension Hyponatremia IDDM (insulin dependent diabetes mellitus) MGUS (monoclonal gammopathy of unknown significance) Neck pain Obesity Peripheral neuropathy Psychiatric diagnosis PVD (peripheral vascular disease) Sleep apnea Family History Family History Other No history of heart disease Surgical History Surgical History H/O abdominoplasty H/O colonoscopy Hx of angioplasty Hx of appendectomy Hx of foot surgery Hx of tonsillectomy Hx of umbilical hernia repair S/P anal fissurectomy S/P BKA (below knee amputation) bilateral Status post below-knee amputation Social History Social History Household Members: None Housing: House Do you presently have visiting nurse or other home services: Yes ([facility]) Alcohol intake: never Patient Tobacco Use Status: Former Tobacco user Quit Date: 30 YEARS AGO Tobacco use type: Cigarette Smoked in Last 30 Days: No Second Hand Smoke Exposure: No Use of substances other than those prescribed or required for medical reasons: No Currently Displaying Signs/Symptoms of Drug Intoxication Withdrawal: No Have you been hit, kicked, punched, or otherwise hurt by someone within the past year? If so, by whom?: No Do you feel safe in your current relationship?: No Current Relationship Is there a partner from a previous relationship who is making you feel unsafe now?: No Are you made to feel afraid or neglected: No Advance Directives: Yes Advance Directives on File: Yes Advance Directives Date on File: 11/06/20 Do you have thoughts of harming others: None Do you have a plan to hurt others: No Plan Recently lost weight without trying: No Nutrition Risks: No Nutritional Risk Poor oral hygiene: No service: Yes Current occupational status: disabled Meds Allergies Allergy/AdvReac Type Severity Reaction Status Date / Time vancomycin AdvReac Severe thrombocyto Verified 07/22/21 10:14 penia Active Medications: Current Medications Acetaminophen (Acetaminophen 325 Mg Tablet) 650 mg PO Q6H PRN PRN Reason: Pain, Mild (Pain Scale 1-3) Last Admin: 12/14/21 12:17 Dose: 650 mg Documented by: Albuterol Sulfate (Albuterol Sulfate 90 Mcg 8 Gm Inhaler) 2 puff INHALE Q4H PRN PRN Reason: Shortness Of Breath Apixaban (Apixaban 5 Mg Tablet) 5 mg PO BID [facility] Last Admin: 12/15/21 08:41 Dose: 5 mg Documented by: Aspirin (Aspirin Enteric Coated 81 Mg Tablet.) 81 mg PO DAILY [facility] Last Admin: 12/15/21 08:41 Dose: 81 mg Documented by: Atorvastatin Calcium (Atorvastatin Calcium 40 Mg Tablet) 40 mg PO DAILY [facility] Last Admin: 12/15/21 08:41 Dose: 40 mg Documented by: Bisacodyl (Bisacodyl 5 Mg Tablet.) 5 mg PO BID [facility] Last Admin: 12/15/21 08:41 Dose: 5 mg Documented by: Dextrose (Dextrose 50 % 25 Gm/50 Ml Syringe) 25 gm IVPUSH Q15M PRN; Protocol PRN Reason: per Hypoglycemia Standing Ord. Docusate Sodium (Docusate Sodium 100 Mg Capsule) 100 mg PO DAILY PRN PRN Reason: Constipation Last Admin: 12/14/21 12:17 Dose: 100 mg Documented by: Fluoxetine HCl (Fluoxetine Hcl 20 Mg Capsule) 20 mg PO DAILY [facility] Last Admin: 12/15/21 08:41 Dose: 20 mg Documented by: Gabapentin (Gabapentin 600 Mg Tablet) 600 mg PO BID [facility] Last Admin: 12/15/21 08:41 Dose: 600 mg Documented by: Glucose (Glucose Gel 15 Gm Gel..Gram.) 15 gm PO Q15M PRN; Protocol PRN Reason: per Hypoglycemia Standing Ord. Piperacillin Sod/Tazobactam (Sod 3.375 gm/ Sodium Chloride) 50 mls @ 100 mls/hr IV Q6H [facility] Last Infusion: 12/15/21 06:17 Dose: Infused Documented by: Daptomycin 500 mg/ Sodium (Chloride) 60 mls @ 93.184 mls/hr IV Q24H [facility] Last Infusion: 12/14/21 15:51 Dose: Infused Documented by: Insulin Glargine (Insulin Glargine,Hum.Rec.Anlog 100 Unit/Ml 10 Ml Vial) 21 unit SUBCUT BID [facility] Last Admin: 12/15/21 08:41 Dose: 21 unit Documented by: Insulin Human Lispro (Insulin Lispro 100 Unit/Ml 3 Ml Vial) 0 unit SUBCUT QIDACHS [facility]; Protocol Last Admin: 12/15/21 12:31 Dose: 6 unit Documented by: Lactulose (Lactulose 20 Gm/30 Ml Solution) 30 gm PO TID [facility] Lisinopril (Lisinopril 5 Mg Tablet) 5 mg PO DAILY [facility]; Protocol Last Admin: 12/15/21 08:41 Dose: 5 mg Documented by: Magnesium Oxide (Magnesium Oxide 400 Mg Tablet) 400 mg PO BID [facility] Last Admin: 12/15/21 08:41 Dose: 400 mg Documented by: Meclizine HCl (Meclizine Hcl 25 Mg Tablet) 25 mg PO DAILY PRN PRN Reason: dizziness Non-Formulary Medication (Plecanatide [Trulance]) 3 mg PO DAILY [facility] Ondansetron HCl (Ondansetron Hcl 4 Mg/2 Ml Vial) 4 mg IVPUSH Q8H PRN PRN Reason: Nausea and Vomiting Oxycodone HCl (Oxycodone Hcl Immed Release 5 Mg Tablet) 5 mg PO Q6H PRN PRN Reason: Pain, Moderate (Pain Scale 4-6 Pharmacy Consult (Consult Rx Perform Med Rec) 1 each MISCELLANE ONCE PRN PRN Reason: Consult order Polyethylene Glycol (Polyethylene Glycol 3350 17 Gm Powd.Pack) 17 gm PO MOWEFR@0900 PRN PRN Reason: Constipation Sodium Chloride (0.9 % Sodium Chloride Flush 3 Ml Syringe) 3 ml IVFLUSH QSHIFT [facility] Last Admin: 12/15/21 08:42 Dose: 3 ml Documented by: Vitamin D (Cholecalciferol (Vitamin D3) 25 Mcg Tablet) 25 mcg PO DAILY [facility] Last Admin: 12/15/21 08:41 Dose: 25 mcg Documented by: Home Medications Medication Instructions Recorded Confirmed Last Taken Type aspirin 81 mg tablet,delayed 81 mg PO DAILY 07/17/20 12/13/21 12/12/21 History release gabapentin 600 mg tablet 600 mg PO BID 07/17/20 12/13/21 12/12/21 History liraglutide 0.6 mg/0.1 mL (18 mg/3 1.8 mg SUBCUT DAILY 07/17/20 12/13/21 12/12/21 History mL) subcutaneous pen injector (Victoza 3-Chet) lisinopril 5 mg tablet 5 mg PO DAILY 07/17/20 12/13/21 12/12/21 History metformin 1,000 mg tablet 1,000 mg PO BID 07/17/20 12/13/21 12/12/21 History cholecalciferol (vitamin D3) 25 25 mcg PO DAILY 09/04/20 12/13/21 12/12/21 History mcg (1,000 unit) tablet atorvastatin 40 mg tablet 40 mg PO DAILY 10/09/20 12/13/21 04/09/21 History insulin degludec 100 unit/mL (3 30 unit SUBCUT BID 12/23/20 12/13/21 12/12/21 History mL) subcutaneous pen (Tresiba FlexTouch U-100 insulin) magnesium oxide 400 mg (241.3 mg 400 mg PO BID 03/07/21 12/13/21 12/12/21 History magnesium) tablet lancets 28 gauge (FreeStyle #100 ea 03/20/21 Unknown History Lancets) albuterol sulfate 90 mcg/actuation 2 puff INHALATION Q4-6H PRN 04/10/21 12/13/21 Unknown History aerosol inhaler apixaban 5 mg tablet (Eliquis) 1 tab PO BID 04/10/21 12/13/21 12/12/21 History fluoxetine 20 mg capsule 20 mg PO DAILY 05/26/21 12/13/21 12/12/21 History bisacodyl 5 mg tablet,delayed 5 mg PO BID 12/13/21 12/13/21 12/12/21 History release (Dulcolax (bisacodyl)) insulin aspart U-100 100 unit/mL 10 unit SUBCUT TIDAC 12/13/21 12/13/21 12/12/21 History (3 mL) subcutaneous pen (Novolog Flexpen U-100 Insulin aspart) ondansetron 4 mg disintegrating 4 mg PO Q8H PRN 12/13/21 12/13/21 Unknown History tablet plecanatide 3 mg tablet (Trulance) 3 mg PO DAILY 12/13/21 12/13/21 12/12/21 History polyethylene glycol 3350 17 gram 17 g PO MOWEFR@0900 PRN 12/13/21 12/13/21 Unknown History oral powder packet Physical Exam Vital Signs: Vital Signs: Last Vital Signs Temp 97.5 F 12/15/21 11:17 Pulse 75 12/15/21 11:17 Resp 20 12/15/21 11:17 BP 119/65 12/15/21 11:17 Pulse Ox 95 12/15/21 11:17 BMI result Body Mass Index 37.5 Const: General: cooperative, healthy appearing and comfortable Orientation/consciousness: oriented to person, oriented to place and oriented to time HEENT: Head: Yes normal to inspection Neck: Neck: Yes normal visual inspection Carotids: no bruits Chest: Chest palpation & inspection: normal inspection of the chest Resp: Effort & Inspection: normal respiratory effort and able to speak in complete sentences Auscultation: clear to auscultation bilaterally, no crackles, no rales, no rhonchi and no wheezes Cardio: Rate: regular rate Rhythm: regular rhythm Heart sounds: S1 normal heart sound present and S2 normal heart sound present Bruits: no carotid bruits Peripheral pulses: Peripheral pulses 2+ throughout GI: Inspection: Yes normal to inspection Skin: Other: Left stump black and eschar boggy measuring 2 x 1.5 cm. Erythema appears to be improving. Wounds: amputation site (Right BKA well-healed, left ulcer) Hair: normal Neuro: General: oriented to person, oriented to place and oriented to time Cranial nerves: Yes CN's II-XII intact bilaterally and Yes Normal hearing present Cognition (Neuro): normal cognition Motor exam (neuro): 5/5 motor strength present throughout Extrem: Other: venous exam: No significant superficial varicosities or spider telangiectasias, minimal edema General: No clubbing, No cyanosis and No edema Psych: Appearance: grossly normal Mental Status: mental status grossly normal Speech and movement: Normal speech and movement present Results Labs Result diagrams: 12/13/21 08:22 12/15/21 05:19 Labs: Abnormal lab results 12/15/21 Range/Units 05:19 Anion Gap 11 L (12-20) BUN 22 H (9-16) mg/dL Random Glucose 210 H (60-115) mg/dL BMP 12/15/21 05:19 Sodium 135 Potassium 4.9 Chloride 102 Carbon Dioxide 27 BUN 22 H Creatinine 1.11 Calcium 8.9 Urine 12/14/21 Range/Units 14:29 Urine Color YELLOW Urine Appearance CLEAR Urine pH 5.5 (5.0-8.0) Ur Specific [place] 1.025 (1.005-1.025) Urine Protein NEG (NEG-TRACE) MG/DL Urine Glucose (UA) NEG (NEG) MG/DL All other labs normal. Assessment and Plan (1) Non-healing amputation site: Status: Acute Plan In short patient has developed a new BKA left stump ulcer. It is body and does track down a fair amount. I have requested the hospitalist team obtain an MRI to better elucidate the degree of damage and whether there is underlying osteomyelitis. At the current time would recommend continued antibiotic therapy. Known need for additional drainage as it appears to be open. We will continue to monitor this stump with you. Thank you for allowing us to assist in his care. Procedures Date of Service Date of Service: 12/15/21
--- NOTE | 2021-12-15 13:55 | W.PM.IDCN ---
History of Present Illness Data of Consult Service Date: 12/15/21 Requesting physician: Tyrell Gomez Primary Care Provider: Janak Malcolm MD HPI Reason for consult: left stump discomfort He presents with discomfort left stump He hit it on chair assembly apparatus about two weeks ago and had some bleeding. He denies purulence or fever and chills Review of Systems Review of Systems: Yes all other systems are reviewed and are negative PMFSH Past Medical History Medical History CIRILO (acute kidney injury) Amputated great toe of right foot Anxiety and depression Back pain COPD (chronic obstructive pulmonary disease) Diabetes Diabetic foot infection Drug-induced thrombocytopenia Hx MRSA infection Hyperlipidemia Hypertension Hyponatremia IDDM (insulin dependent diabetes mellitus) MGUS (monoclonal gammopathy of unknown significance) Neck pain Obesity Peripheral neuropathy Psychiatric diagnosis PVD (peripheral vascular disease) Sleep apnea Family History Family History Other No history of heart disease Family history: reviewed and not pertinent Surgical History Surgical History H/O abdominoplasty H/O colonoscopy Hx of angioplasty Hx of appendectomy Hx of foot surgery Hx of tonsillectomy Hx of umbilical hernia repair S/P anal fissurectomy S/P BKA (below knee amputation) bilateral Status post below-knee amputation Social History Social History Household Members: None Housing: House Do you presently have visiting nurse or other home services: Yes ([facility]) Alcohol intake: never Patient Tobacco Use Status: Former Tobacco user Quit Date: 30 YEARS AGO Tobacco use type: Cigarette Smoked in Last 30 Days: No Second Hand Smoke Exposure: No Use of substances other than those prescribed or required for medical reasons: No Currently Displaying Signs/Symptoms of Drug Intoxication Withdrawal: No Have you been hit, kicked, punched, or otherwise hurt by someone within the past year? If so, by whom?: No Do you feel safe in your current relationship?: No Current Relationship Is there a partner from a previous relationship who is making you feel unsafe now?: No Are you made to feel afraid or neglected: No Advance Directives: Yes Advance Directives on File: Yes Advance Directives Date on File: 11/06/20 Do you have thoughts of harming others: None Do you have a plan to hurt others: No Plan Recently lost weight without trying: No Nutrition Risks: No Nutritional Risk Poor oral hygiene: No service: Yes Current occupational status: disabled Meds Allergies Allergy/AdvReac Type Severity Reaction Status Date / Time vancomycin AdvReac Severe thrombocyto Verified 07/22/21 10:14 penia Active Medications: Current Medications Acetaminophen (Acetaminophen 325 Mg Tablet) 650 mg PO Q6H PRN PRN Reason: Pain, Mild (Pain Scale 1-3) Last Admin: 12/14/21 12:17 Dose: 650 mg Documented by: Albuterol Sulfate (Albuterol Sulfate 90 Mcg 8 Gm Inhaler) 2 puff INHALE Q4H PRN PRN Reason: Shortness Of Breath Apixaban (Apixaban 5 Mg Tablet) 5 mg PO BID [facility] Last Admin: 12/15/21 08:41 Dose: 5 mg Documented by: Aspirin (Aspirin Enteric Coated 81 Mg Tablet.) 81 mg PO DAILY [facility] Last Admin: 12/15/21 08:41 Dose: 81 mg Documented by: Atorvastatin Calcium (Atorvastatin Calcium 40 Mg Tablet) 40 mg PO DAILY [facility] Last Admin: 12/15/21 08:41 Dose: 40 mg Documented by: Bisacodyl (Bisacodyl 5 Mg Tablet.) 5 mg PO BID [facility] Last Admin: 12/15/21 08:41 Dose: 5 mg Documented by: Dextrose (Dextrose 50 % 25 Gm/50 Ml Syringe) 25 gm IVPUSH Q15M PRN; Protocol PRN Reason: per Hypoglycemia Standing Ord. Docusate Sodium (Docusate Sodium 100 Mg Capsule) 100 mg PO DAILY PRN PRN Reason: Constipation Last Admin: 12/14/21 12:17 Dose: 100 mg Documented by: Fluoxetine HCl (Fluoxetine Hcl 20 Mg Capsule) 20 mg PO DAILY [facility] Last Admin: 12/15/21 08:41 Dose: 20 mg Documented by: Gabapentin (Gabapentin 600 Mg Tablet) 600 mg PO BID [facility] Last Admin: 12/15/21 08:41 Dose: 600 mg Documented by: Glucose (Glucose Gel 15 Gm Gel..Gram.) 15 gm PO Q15M PRN; Protocol PRN Reason: per Hypoglycemia Standing Ord. Piperacillin Sod/Tazobactam (Sod 3.375 gm/ Sodium Chloride) 50 mls @ 100 mls/hr IV Q6H [facility] Last Admin: 12/15/21 13:22 Dose: 100 mls/hr Documented by: Daptomycin 500 mg/ Sodium (Chloride) 60 mls @ 93.184 mls/hr IV Q24H [facility] Last Infusion: 12/14/21 15:51 Dose: Infused Documented by: Insulin Glargine (Insulin Glargine,Hum.Rec.Anlog 100 Unit/Ml 10 Ml Vial) 21 unit SUBCUT BID [facility] Last Admin: 12/15/21 08:41 Dose: 21 unit Documented by: Insulin Human Lispro (Insulin Lispro 100 Unit/Ml 3 Ml Vial) 0 unit SUBCUT QIDACHS [facility]; Protocol Last Admin: 12/15/21 12:31 Dose: 6 unit Documented by: Lactulose (Lactulose 20 Gm/30 Ml Solution) 30 gm PO TID [facility] Lisinopril (Lisinopril 5 Mg Tablet) 5 mg PO DAILY [facility]; Protocol Last Admin: 12/15/21 08:41 Dose: 5 mg Documented by: Magnesium Oxide (Magnesium Oxide 400 Mg Tablet) 400 mg PO BID [facility] Last Admin: 12/15/21 08:41 Dose: 400 mg Documented by: Meclizine HCl (Meclizine Hcl 25 Mg Tablet) 25 mg PO DAILY PRN PRN Reason: dizziness Non-Formulary Medication (Plecanatide [Trulance]) 3 mg PO DAILY [facility] Ondansetron HCl (Ondansetron Hcl 4 Mg/2 Ml Vial) 4 mg IVPUSH Q8H PRN PRN Reason: Nausea and Vomiting Oxycodone HCl (Oxycodone Hcl Immed Release 5 Mg Tablet) 5 mg PO Q6H PRN PRN Reason: Pain, Moderate (Pain Scale 4-6 Pharmacy Consult (Consult Rx Perform Med Rec) 1 each MISCELLANE ONCE PRN PRN Reason: Consult order Polyethylene Glycol (Polyethylene Glycol 3350 17 Gm Powd.Pack) 17 gm PO MOWEFR@0900 PRN PRN Reason: Constipation Sodium Chloride (0.9 % Sodium Chloride Flush 3 Ml Syringe) 3 ml IVFLUSH QSHIFT [facility] Last Admin: 12/15/21 08:42 Dose: 3 ml Documented by: Vitamin D (Cholecalciferol (Vitamin D3) 25 Mcg Tablet) 25 mcg PO DAILY [facility] Last Admin: 12/15/21 08:41 Dose: 25 mcg Documented by: Home Medications Medication Instructions Recorded Confirmed Last Taken Type aspirin 81 mg tablet,delayed 81 mg PO DAILY 07/17/20 12/13/21 12/12/21 History release gabapentin 600 mg tablet 600 mg PO BID 07/17/20 12/13/21 12/12/21 History liraglutide 0.6 mg/0.1 mL (18 mg/3 1.8 mg SUBCUT DAILY 07/17/20 12/13/21 12/12/21 History mL) subcutaneous pen injector (Flagrtoza 3-Chet) lisinopril 5 mg tablet 5 mg PO DAILY 07/17/20 12/13/21 12/12/21 History metformin 1,000 mg tablet 1,000 mg PO BID 07/17/20 12/13/21 12/12/21 History cholecalciferol (vitamin D3) 25 25 mcg PO DAILY 09/04/20 12/13/21 12/12/21 History mcg (1,000 unit) tablet atorvastatin 40 mg tablet 40 mg PO DAILY 10/09/20 12/13/21 04/09/21 History insulin degludec 100 unit/mL (3 30 unit SUBCUT BID 12/23/20 12/13/21 12/12/21 History mL) subcutaneous pen (Tresiba FlexTouch U-100 insulin) magnesium oxide 400 mg (241.3 mg 400 mg PO BID 03/07/21 12/13/21 12/12/21 History magnesium) tablet lancets 28 gauge (FreeStyle #100 ea 03/20/21 Unknown History Lancets) albuterol sulfate 90 mcg/actuation 2 puff INHALATION Q4-6H PRN 04/10/21 12/13/21 Unknown History aerosol inhaler apixaban 5 mg tablet (Eliquis) 1 tab PO BID 04/10/21 12/13/21 12/12/21 History fluoxetine 20 mg capsule 20 mg PO DAILY 05/26/21 12/13/21 12/12/21 History bisacodyl 5 mg tablet,delayed 5 mg PO BID 12/13/21 12/13/21 12/12/21 History release (Dulcolax (bisacodyl)) insulin aspart U-100 100 unit/mL 10 unit SUBCUT TIDAC 12/13/21 12/13/21 12/12/21 History (3 mL) subcutaneous pen (Novolog Flexpen U-100 Insulin aspart) ondansetron 4 mg disintegrating 4 mg PO Q8H PRN 12/13/21 12/13/21 Unknown History tablet plecanatide 3 mg tablet (Trulance) 3 mg PO DAILY 12/13/21 12/13/21 12/12/21 History polyethylene glycol 3350 17 gram 17 g PO MOWEFR@0900 PRN 12/13/21 12/13/21 Unknown History oral powder packet Physical Exam Vital Signs: Vital Signs: Last Vital Signs Temp 97.5 F 12/15/21 11:17 Pulse 75 12/15/21 11:17 Resp 20 12/15/21 11:17 BP 119/65 12/15/21 11:17 Pulse Ox 95 12/15/21 11:17 BMI result Body Mass Index 37.5 Const: General: cooperative HEENT: Head: Yes normal to inspection Mouth: Normal oral and palatal mucosa present Resp: Effort & Inspection: normal respiratory effort Cardio: Rate: regular rate Rhythm: regular rhythm GI: Palpation (GI): Soft to palpation and nontender Extrem: General: Yes normal to inspection Results Labs CBC & Chem 7: 12/13/21 08:22 12/15/21 05:19 Labs: BMP 12/15/21 05:19 Sodium 135 Potassium 4.9 Chloride 102 Carbon Dioxide 27 BUN 22 H Creatinine 1.11 Calcium 8.9 Urine 12/14/21 Range/Units 14:29 Urine Color YELLOW Urine Appearance CLEAR Urine pH 5.5 (5.0-8.0) Ur Specific [place] 1.025 (1.005-1.025) Urine Protein NEG (NEG-TRACE) MG/DL Urine Glucose (UA) NEG (NEG) MG/DL Microbiology Microbiology Results: Microbiology 12/13/21 11:15 Blood - Venous Blood Culture - Preliminary No growth after 48 hours. 12/13/21 08:22 Blood - Venous Blood Culture - Preliminary No growth after 48 hours. Assessment and Plan (1) Cellulitis: Status: Acute Cellulitis is resolving (2) Abscess: Status: Acute Plan Continue current antibiotics Appears to be mostly hematoma at base,Dr Figueroa should see if available.
[2021-12-15] MEDS: DAPTOmycin 500 MG in 0.9 % Sodium Chloride 50 ML 93.18 MG IV (14:13)
[2021-12-15 15:16] VITALS: BP 125/67; PULSE 71; RESP 18; TEMP 36.8; O2SAT 96
[2021-12-15 19:19] VITALS: BP 124/65; PULSE 74; RESP 18; TEMP 36.9; O2SAT 96
[2021-12-15 23:39] VITALS: BP 136/69; PULSE 76; RESP 18; TEMP 36.6; O2SAT 97
[2021-12-16] MEDS: Piperacillin Sodium/Tazobactam 3.375 GM in 0.9 % Sodium Chloride 50 ML IV ×4 (00:57→18:25)
[2021-12-16 04:00] VITALS: BP 127/60; PULSE 74; RESP 18; TEMP 36.8; O2SAT 96
[2021-12-16 07:57] VITALS: BP 126/64; PULSE 63; RESP 17; TEMP 37.1; O2SAT 96
[2021-12-16] MEDS: Cholecalciferol (Vitamin D3) 25 MCG TABLET PO (08:16)
[2021-12-16] MEDS: bisacodyL 5 MG TABLET.DR PO ×2 (08:16→20:54)
[2021-12-16] MEDS: Magnesium Oxide 400 MG TABLET PO ×2 (08:16→20:54)
[2021-12-16] MEDS: Apixaban 5 MG TABLET PO ×2 (08:16→20:54)
[2021-12-16] MEDS: Insulin Glargine,Hum.rec.anlog 100 UNIT/ML 10 ML VIAL 21 UNIT SUBCUT ×2 (08:16→20:55)
[2021-12-16] MEDS: Aspirin Enteric Coated 81 MG TABLET.DR PO (08:16)
[2021-12-16] MEDS: FLUoxetine HCl 20 MG CAPSULE PO (08:16)
[2021-12-16] MEDS: lisinopriL 5 MG TABLET PO (08:16)
[2021-12-16] MEDS: Atorvastatin Calcium 40 MG TABLET PO (08:16)
[2021-12-16] MEDS: Gabapentin 600 MG TABLET PO ×2 (08:16→20:54)
[2021-12-16] MEDS: 0.9 % Sodium Chloride Flush 3 ML SYRINGE IVFLUSH ×3 (08:17→20:55)
[2021-12-16] MEDS: Insulin Lispro 100 UNIT/ML 3 ML VIAL SUBCUT ×4 (08:17→20:54)
[2021-12-16] MEDS: Lactulose 20 GM/30 ML SOLUTION 30 GM PO (09:07)
[2021-12-16 11:52] VITALS: BP 120/61; PULSE 60; RESP 18; TEMP 36.8; O2SAT 97
--- NOTE | 2021-12-16 12:39 | HO.PM.IMPN ---
Subjective Subjective Date of Service: 12/16/21 Interval History: L stump swollen, draining a little blood No fever/chills Major complaint is constipation; no BM x8d Review of Systems Review of Systems: Yes all other systems are reviewed and are negative Physical Exam Vital Signs: Vital Signs: Last Vital Signs Temp 98.2 F 12/16/21 11:52 Pulse 60 12/16/21 11:52 Resp 18 12/16/21 11:52 BP 120/61 12/16/21 11:52 Pulse Ox 97 12/16/21 11:52 BMI result Body Mass Index 37.5 Gen: in no acute distress HEENT: sclera anicteric, moist mucus membranes Neck: supple Lungs: clear to auscultation bilaterally Heart: regular rate and rhythm, no murmurs Abd: soft, non-tender, non-distended Ext: bilateral BKA, L stump with swollen/boggy area without discharge Skin: warm/well-perfused Neuro: alert and oriented x3, no focal findings Psych: appropriate affect Objective Data Active Medications Acetaminophen (Acetaminophen 325 Mg Tablet) 650 mg PO Q6H PRN PRN Reason: Pain, Mild (Pain Scale 1-3) Last Admin: 12/14/21 12:17 Dose: 650 mg Documented by: NILA Albuterol Sulfate (Albuterol Sulfate 90 Mcg 8 Gm Inhaler) 2 puff INHALE Q4H PRN PRN Reason: Shortness Of Breath Apixaban (Apixaban 5 Mg Tablet) 5 mg PO BID [facility] Last Admin: 12/16/21 08:16 Dose: 5 mg Documented by: ARUNA Aspirin (Aspirin Enteric Coated 81 Mg Tablet.) 81 mg PO DAILY [facility] Last Admin: 12/16/21 08:16 Dose: 81 mg Documented by: ARUNA Atorvastatin Calcium (Atorvastatin Calcium 40 Mg Tablet) 40 mg PO DAILY [facility] Last Admin: 12/16/21 08:16 Dose: 40 mg Documented by: ARUNA Bisacodyl (Bisacodyl 5 Mg Tablet.) 5 mg PO BID [facility] Last Admin: 12/16/21 08:16 Dose: 5 mg Documented by: ARUNA Dextrose (Dextrose 50 % 25 Gm/50 Ml Syringe) 25 gm IVPUSH Q15M PRN; Protocol PRN Reason: per Hypoglycemia Standing Ord. Docusate Sodium (Docusate Sodium 100 Mg Capsule) 100 mg PO DAILY PRN PRN Reason: Constipation Last Admin: 12/14/21 12:17 Dose: 100 mg Documented by: NILA Fluoxetine HCl (Fluoxetine Hcl 20 Mg Capsule) 20 mg PO DAILY [facility] Last Admin: 12/16/21 08:16 Dose: 20 mg Documented by: ARUNA Gabapentin (Gabapentin 600 Mg Tablet) 600 mg PO BID [facility] Last Admin: 12/16/21 08:16 Dose: 600 mg Documented by: ARUNA Glucose (Glucose Gel 15 Gm Gel..Gram.) 15 gm PO Q15M PRN; Protocol PRN Reason: per Hypoglycemia Standing Ord. Piperacillin Sod/Tazobactam (Sod 3.375 gm/ Sodium Chloride) 50 mls @ 100 mls/hr IV Q6H [facility] Last Infusion: 12/16/21 06:46 Dose: 100 mls/hr Documented by: JOSEF Daptomycin 500 mg/ Sodium (Chloride) 60 mls @ 93.184 mls/hr IV Q24H [facility] Last Infusion: 12/15/21 15:18 Dose: 0 mls/hr Documented by: ARUNA Insulin Glargine (Insulin Glargine,Hum.Rec.Anlog 100 Unit/Ml 10 Ml Vial) 21 unit SUBCUT BID [facility] Last Admin: 12/16/21 08:16 Dose: 21 unit Documented by: ARUNA Insulin Human Lispro (Insulin Lispro 100 Unit/Ml 3 Ml Vial) 0 unit SUBCUT QIDACHS [facility]; Protocol Last Admin: 12/16/21 12:08 Dose: 4 unit Documented by: ARUNA Lactulose (Lactulose 20 Gm/30 Ml Solution) 30 gm PO TID [facility] Last Admin: 12/16/21 09:07 Dose: 30 gm Documented by: ARUNA Lisinopril (Lisinopril 5 Mg Tablet) 5 mg PO DAILY [facility]; Protocol Last Admin: 12/16/21 08:16 Dose: 5 mg Documented by: ARUNA Magnesium Oxide (Magnesium Oxide 400 Mg Tablet) 400 mg PO BID [facility] Last Admin: 12/16/21 08:16 Dose: 400 mg Documented by: ARUNA Meclizine HCl (Meclizine Hcl 25 Mg Tablet) 25 mg PO DAILY PRN PRN Reason: dizziness Non-Formulary Medication (Plecanatide [Trulance]) 3 mg PO DAILY [facility] Ondansetron HCl (Ondansetron Hcl 4 Mg/2 Ml Vial) 4 mg IVPUSH Q8H PRN PRN Reason: Nausea and Vomiting Oxycodone HCl (Oxycodone Hcl Immed Release 5 Mg Tablet) 5 mg PO Q6H PRN PRN Reason: Pain, Moderate (Pain Scale 4-6 Pharmacy Consult (Consult Rx Perform Med Rec) 1 each MISCELLANE ONCE PRN PRN Reason: Consult order Polyethylene Glycol (Polyethylene Glycol 3350 17 Gm Powd.Pack) 17 gm PO MOWEFR@0900 PRN PRN Reason: Constipation Sodium Chloride (0.9 % Sodium Chloride Flush 3 Ml Syringe) 3 ml IVFLUSH QSHIFT [facility] Last Admin: 12/16/21 08:17 Dose: 3 ml Documented by: ARUNA Vitamin D (Cholecalciferol (Vitamin D3) 25 Mcg Tablet) 25 mcg PO DAILY [facility] Last Admin: 12/16/21 08:16 Dose: 25 mcg Documented by: ARUNA Labs CBC & Chem 7: 12/13/21 08:22 12/15/21 05:19 Labs: ITS Impressions Knee X-Ray 12/13/21 09:15 IMPRESSION: 1. Compared to prior baseline postoperative study dated 03/07/2021, interval development of nonspecific periosteal reaction and new bone formation around the stump of the left tibia is seen. No evidence of any soft tissue gas present. 2. 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 Lower Extremity CT 12/13/21 09:59 IMPRESSION: Postop changes related to below-knee amputation. Subtle findings suggestive of slightly complex small fluid collection abutting the distal lateral aspect of the remaining tibia. This could reflect a hematoma, seroma, or abscess. Microbiology Microbiology Results: Microbiology 12/13/21 11:15 Blood Culture - Preliminary Blood - Venous No growth after 48 hours. 12/13/21 08:22 Blood Culture - Preliminary Blood - Venous No growth after 48 hours. Assessment and Plan (1) Cellulitis: Status: Acute Plan hospital d#4 61yo M with hx of DM2, PVD s/p bilateral BKA, peripheral neuropathy, MGUS, h/o left stump MRSA osteomyelitis who presents with left stump redness and swelling concerning for abscess vs. hematoma vs seroma # left stump cellulitis with possible abscess vs hematoma - not septic, ESR 44, CRP 3.07 - on dapto + pip/malik d#4 [allergic to vancomycin] - bedside aspiration by Gen Surg suggests hematoma rather than abscess - Vasc Surg consulted; MRI to r/o osteomyelitis; ID following; BCx negative # DM2 - basal/bolus insulin, hold MTF, also on Victoza at home # constipation - continue bowel regimen- give enema # vertigo - prn meclizine # hx PE - apixaban # HLD - continue statin # HTN - continue lisinopril # VTE ppx - apixaban In my clinical judgment, the patient requires continued hospitalization for the following reasons: IV ABX for stump cellulitis + high risk for possible osteomyelitis Quality Stroke Does the patient have a stroke diagnosis?: No VTE Prior VTE?: No VTE Risk Level:: Medical - moderate - high VTE Device Contraindication: Treatment Not Indicated VTE Drug Contraindication: N/A - Med Ordered
[2021-12-16] MEDS: Sodium Phosphate,Mono-Dibasic 133 ML ENEMA PR (12:43)
[2021-12-16] MEDS: DAPTOmycin 500 MG in 0.9 % Sodium Chloride 50 ML 93.18 MG IV (14:38)
[2021-12-16 15:42] VITALS: BP 145/71; PULSE 65; RESP 19; TEMP 36.6; O2SAT 96
[2021-12-16 19:57] VITALS: BP 134/68; PULSE 64; RESP 19; TEMP 36.6; O2SAT 95
[2021-12-16 23:55] VITALS: BP 98/50; PULSE 60; RESP 16; TEMP 36.6; O2SAT 95
[2021-12-17] VITALS (7 sets, daily range): BP systolic 109–138; BP diastolic 58–63; PULSE 56–68; RESP 14–28; TEMP 35.8–37.4; O2SAT 94–97
[2021-12-17] MEDS: Piperacillin Sodium/Tazobactam 3.375 GM in 0.9 % Sodium Chloride 50 ML IV ×5 (01:05→23:48)
[2021-12-17] MEDS: Insulin Lispro 100 UNIT/ML 3 ML VIAL SUBCUT ×4 (07:52→19:50)
[2021-12-17] MEDS: Insulin Glargine,Hum.rec.anlog 100 UNIT/ML 10 ML VIAL 21 UNIT SUBCUT ×2 (07:53→19:51)
[2021-12-17] MEDS: lisinopriL 5 MG TABLET PO (07:54)
[2021-12-17] MEDS: Atorvastatin Calcium 40 MG TABLET PO (07:54)
[2021-12-17] MEDS: FLUoxetine HCl 20 MG CAPSULE PO (07:54)
[2021-12-17] MEDS: Magnesium Oxide 400 MG TABLET PO ×2 (07:54→19:49)
[2021-12-17] MEDS: Apixaban 5 MG TABLET PO ×2 (07:54→19:49)
[2021-12-17] MEDS: Cholecalciferol (Vitamin D3) 25 MCG TABLET PO (07:55)
[2021-12-17] MEDS: Gabapentin 600 MG TABLET PO ×2 (07:55→19:49)
[2021-12-17] MEDS: Aspirin Enteric Coated 81 MG TABLET.DR PO (07:55)
[2021-12-17] MEDS: 0.9 % Sodium Chloride Flush 3 ML SYRINGE IVFLUSH ×3 (07:55→23:48)
--- NOTE | 2021-12-17 11:04 | PC.NURSE ---
Skin/wound assessment completed. Patient has an open hematoma wound on left BKA. Cleansed with wound cleanser then silver alginate applied covered with medium foam.
[2021-12-17] MEDS: DAPTOmycin 500 MG in 0.9 % Sodium Chloride 50 ML 93.18 MG IV (13:29)
--- NOTE | 2021-12-17 13:56 | HO.PM.IMPN ---
Subjective Subjective Date of Service: 12/17/21 Interval History: MRI showed early osteomyelitis, awaiting PICC line no fever/chills Review of Systems Review of Systems: Yes all other systems are reviewed and are negative Physical Exam Vital Signs: Vital Signs: Last Vital Signs Temp 97.7 F 12/17/21 11:54 Pulse 66 12/17/21 11:54 Resp 18 12/17/21 11:54 BP 118/63 12/17/21 11:54 Pulse Ox 96 12/17/21 11:54 BMI result Body Mass Index 37.5 Gen: in no acute distress HEENT: sclera anicteric, moist mucus membranes Neck: supple Lungs: clear to auscultation bilaterally Heart: regular rate and rhythm, no murmurs Abd: soft, non-tender, non-distended Ext: bilateral BKA, L stump with swollen/boggy area without discharge Skin: warm/well-perfused Neuro: alert and oriented x3, no focal findings Psych: appropriate affect Objective Data Active Medications Acetaminophen (Acetaminophen 325 Mg Tablet) 650 mg PO Q6H PRN PRN Reason: Pain, Mild (Pain Scale 1-3) Last Admin: 12/14/21 12:17 Dose: 650 mg Documented by: NILA Albuterol Sulfate (Albuterol Sulfate 90 Mcg 8 Gm Inhaler) 2 puff INHALE Q4H PRN PRN Reason: Shortness Of Breath Apixaban (Apixaban 5 Mg Tablet) 5 mg PO BID [facility] Last Admin: 12/17/21 07:54 Dose: 5 mg Documented by: HARINI Aspirin (Aspirin Enteric Coated 81 Mg Tablet.) 81 mg PO DAILY [facility] Last Admin: 12/17/21 07:55 Dose: 81 mg Documented by: HARINI Atorvastatin Calcium (Atorvastatin Calcium 40 Mg Tablet) 40 mg PO DAILY [facility] Last Admin: 12/17/21 07:54 Dose: 40 mg Documented by: HARINI Bisacodyl (Bisacodyl 5 Mg Tablet.) 5 mg PO BID [facility] Last Admin: 12/17/21 07:56 Dose: Not Given Documented by: HARINI Non-Admin Reason: Patient Refused Dextrose (Dextrose 50 % 25 Gm/50 Ml Syringe) 25 gm IVPUSH Q15M PRN; Protocol PRN Reason: per Hypoglycemia Standing Ord. Docusate Sodium (Docusate Sodium 100 Mg Capsule) 100 mg PO DAILY PRN PRN Reason: Constipation Last Admin: 12/14/21 12:17 Dose: 100 mg Documented by: COTEMA Fluoxetine HCl (Fluoxetine Hcl 20 Mg Capsule) 20 mg PO DAILY [facility] Last Admin: 12/17/21 07:54 Dose: 20 mg Documented by: HARINI Gabapentin (Gabapentin 600 Mg Tablet) 600 mg PO BID [facility] Last Admin: 12/17/21 07:55 Dose: 600 mg Documented by: HARINI Glucose (Glucose Gel 15 Gm Gel..Gram.) 15 gm PO Q15M PRN; Protocol PRN Reason: per Hypoglycemia Standing Ord. Piperacillin Sod/Tazobactam (Sod 3.375 gm/ Sodium Chloride) 50 mls @ 100 mls/hr IV Q6H [facility] Last Infusion: 12/17/21 12:49 Dose: 0 mls/hr Documented by: BRITTNEY Daptomycin 500 mg/ Sodium (Chloride) 60 mls @ 93.184 mls/hr IV Q24H [facility] Last Admin: 12/17/21 13:29 Dose: 93.18 mls/hr Documented by: BRITTNEY Insulin Glargine (Insulin Glargine,Hum.Rec.Anlog 100 Unit/Ml 10 Ml Vial) 21 unit SUBCUT BID [facility] Last Admin: 12/17/21 07:53 Dose: 21 unit Documented by: HARINI Insulin Human Lispro (Insulin Lispro 100 Unit/Ml 3 Ml Vial) 0 unit SUBCUT QIDACHS [facility]; Protocol Last Admin: 12/17/21 12:16 Dose: 8 unit Documented by: BRITTNEY Lactulose (Lactulose 20 Gm/30 Ml Solution) 30 gm PO TID [facility] Last Admin: 12/17/21 13:27 Dose: Not Given Documented by: BRITTNEY Non-Admin Reason: Patient Refused Lisinopril (Lisinopril 5 Mg Tablet) 5 mg PO DAILY [facility]; Protocol Last Admin: 12/17/21 07:54 Dose: 5 mg Documented by: HARINI Magnesium Oxide (Magnesium Oxide 400 Mg Tablet) 400 mg PO BID [facility] Last Admin: 12/17/21 07:54 Dose: 400 mg Documented by: HARINI Meclizine HCl (Meclizine Hcl 25 Mg Tablet) 25 mg PO DAILY PRN PRN Reason: dizziness Non-Formulary Medication (Plecanatide [Trulance]) 3 mg PO DAILY [facility] Ondansetron HCl (Ondansetron Hcl 4 Mg/2 Ml Vial) 4 mg IVPUSH Q8H PRN PRN Reason: Nausea and Vomiting Oxycodone HCl (Oxycodone Hcl Immed Release 5 Mg Tablet) 5 mg PO Q6H PRN PRN Reason: Pain, Moderate (Pain Scale 4-6 Pharmacy Consult (Consult Rx Perform Med Rec) 1 each MISCELLANE ONCE PRN PRN Reason: Consult order Polyethylene Glycol (Polyethylene Glycol 3350 17 Gm Powd.Pack) 17 gm PO MOWEFR@0900 PRN PRN Reason: Constipation Sodium Chloride (0.9 % Sodium Chloride Flush 3 Ml Syringe) 3 ml IVFLUSH QSHIFT [facility] Last Admin: 12/17/21 13:31 Dose: 3 ml Documented by: BRITTNEY Vitamin D (Cholecalciferol (Vitamin D3) 25 Mcg Tablet) 25 mcg PO DAILY [facility] Last Admin: 12/17/21 07:55 Dose: 25 mcg Documented by: HARINI Labs CBC & Chem 7: 12/13/21 08:22 12/15/21 05:19 Assessment and Plan (1) Cellulitis: Status: Acute Plan hospital d#5 61yo M with hx of DM2, PVD s/p bilateral BKA, peripheral neuropathy, MGUS, h/o left stump MRSA osteomyelitis who presents with left stump redness and swelling concerning for abscess vs. hematoma vs seroma # left stump cellulitis with possible abscess vs hematoma # osteomyelitis - not septic, ESR 44, CRP 3.07 - on dapto + pip/malik d#5 [allergic to vancomycin] - bedside aspiration by Gen Surg suggests hematoma rather than abscess - Vasc Surg + ID consulted - MRI shows early osteomyelitis. plan 42d of daptomcyin, will place PICC line # DM2 - basal/bolus insulin, hold MTF, also on Victoza at home # constipation - continue bowel regimen- give enema # vertigo - prn meclizine # hx PE - apixaban # HLD - continue statin # HTN - continue lisinopril # VTE ppx - apixaban In my clinical judgment, the patient requires continued hospitalization for the following reasons: IV ABX for osteomyelitis Quality Stroke Does the patient have a stroke diagnosis?: No VTE Prior VTE?: No VTE Risk Level:: Medical - moderate - high VTE Device Contraindication: Treatment Not Indicated VTE Drug Contraindication: N/A - Med Ordered
--- NOTE | 2021-12-17 14:15 | MHC.CM.PN ---
MRI POSITIVE FOR EARLY OSTEOMYELITIS, REFERRALS PLACED TO [facility] PER PT PREFERENCES, ANTIC D/C TOMORROW 12/18 ONCE PICC LINE IS PLACED AND PT RECEIVES FIRST DOSE OF DAPTO THROUGH [facility]. CM TO CONT TO FOLLOW D/C NEEDS. D/C ABX WILL BE DAPTO 500MG Q24HR X 42 DAYS
--- NOTE | 2021-12-17 16:31 | P.PICC_ITS ---
PICC Line Insertion NPICC Diagnosis: [OSTEOMYELITIS] Indication: [PRISON ANTIBX] Pertinent Labs: [REVIEWED] Technique: Following informed consent including risks, benefits and alternatives and using sterile technique including cap and mask, sterile gown, glove and drape, the [RIGHT] arm was prepped and draped in the usual sterile fashion of full barrier technique with CHG. Following completion of [place] Protocol the skin and soft tissues were anesthetized with 1% Lidocaine plain. Using ultrasound guidance, [RIGHT BASILIC] vein access was obtained ON FIRST ATTEMPT. Over an 0.018 wire through peel-away sheath, a [4FR SINGLE LUMEN] PICC line was positioned. Catheter length is [43CM] internal length, [0CM] external length, for a total trimmed length of [43CM]. The procedure was performed in [RM. 272]. Tip verification was UNABLE TO BE VERTIFIED by Gabriel Aceves with [facility] 3CG SO DR SCHILLING WAS TIGGERCONNECTED TO ORDER A CXR. Ultrasound was used to document vein patency and for needle entry. A formal ultrasound picture. Vascular Tool Turret Lathe Set Up Operator has NOT released the line for use UNTIL RESULTS FROM CXR ARE READ. IT is currently dressed with a StatLock, Tegaderm, and CHG disc. Verification has been performed for blood return and line patency. Arm Circumference: [34CM] Equipment: [[employer] ] Catheter Type: [4FR SINGLE LUMEN PICC] Lot #: [[id number]]
--- NOTE | 2021-12-17 17:01 | PC.NURSE ---
blood sugar at 1645 is 437 , blood sugar machine is not communicating with computer system .Lab called and made aware , nursing supervisor waterproofing made aware . new orders for insulin noted , made aware of not being able to see results in computer system
--- NOTE | 2021-12-17 17:13 | PC.NURSE ---
0700 blood sugar 235 , 11am blood sugar 315 , 1630 blood sugar 437 made aware , new orders for increased sliding scale .
[2021-12-17] MEDS: Melatonin 3 MG TABLET 6 MG PO (20:27)
[2021-12-18 03:15] VITALS: BP 94/49; PULSE 56; RESP 14; TEMP 36.4; O2SAT 98
[2021-12-18] MEDS: Piperacillin Sodium/Tazobactam 3.375 GM in 0.9 % Sodium Chloride 50 ML IV (05:13)
[2021-12-18 07:38] VITALS: BP 137/70; PULSE 60; RESP 16; TEMP 36.3; O2SAT 97
[2021-12-18] MEDS: Gabapentin 600 MG TABLET PO (08:06)
[2021-12-18] MEDS: lisinopriL 5 MG TABLET PO (08:07)
[2021-12-18] MEDS: Aspirin Enteric Coated 81 MG TABLET.DR PO (08:10)
[2021-12-18] MEDS: FLUoxetine HCl 20 MG CAPSULE PO (08:11)
[2021-12-18] MEDS: Cholecalciferol (Vitamin D3) 25 MCG TABLET PO (08:11)
[2021-12-18] MEDS: Apixaban 5 MG TABLET PO (08:11)
[2021-12-18] MEDS: Magnesium Oxide 400 MG TABLET PO (08:12)
[2021-12-18] MEDS: bisacodyL 5 MG TABLET.DR PO (08:12)
[2021-12-18] MEDS: Insulin Lispro 100 UNIT/ML 3 ML VIAL SUBCUT ×2 (08:13→11:53)
[2021-12-18] MEDS: Insulin Glargine,Hum.rec.anlog 100 UNIT/ML 10 ML VIAL 21 UNIT SUBCUT (08:16)
[2021-12-18] MEDS: 0.9 % Sodium Chloride Flush 3 ML SYRINGE IVFLUSH (08:17)
[2021-12-18] MEDS: 0.9 % Sodium Chloride Flush 10 ML SYRINGE 5 ML IVFLUSH (08:17)
[2021-12-18] MEDS: DAPTOmycin 500 MG in 0.9 % Sodium Chloride 50 ML 93.18 MG IV (09:47)
--- NOTE | 2021-12-18 09:55 | MHC.CM.PN ---
PT MEDICALLY CLEARED FOR D/C HOME W/[facility] FOR SN AND [facility] FOR IV ABX TEACH/DELIVER IV ABX, ACTION FOR BLS TRANSPORT AT 1PM, NSG, UNIT AND HOSPITALIST AWARE. PT PRESCRIBED DAPTOMYCIN 500MG Q24HRS W/END DATE OF 01/24/22.
--- NOTE | 2021-12-18 10:24 | P.CDIC_ITS ---
CDI Concurrent Query Documentation Clarification: PHYSICIAN'S DOCUMENTATION REQUEST Date of Query: 12/18/21 1025 Patient Name: Ramy Benson Admit Date: 12/13/21 Dear Doctor, A review of the medical record indicates additional documentation may be needed. Please review below and update the documentation accordingly. Clinical Indicators: Documentation on [insert date] indicates Osteomyelitis. Risk Factors/Clinical Indicators/Treatments PN 12/17 - left stump cellulitis, abscess vs. hematoma, osteomyelitis. MRI 12/15 - Findings consistent with early osteomyelitis. Plan 42d of daptomcyin will place PICC line. Based on the above, please clarify in the Progress Notes further specificity regarding the type of Osteomyelitis. Specifics: * Acute osteomyelitis * Subacute osteomyelitis * Chronic osteomyelitis * Chronis multifocal osteomyelitis * Other (please specify) * Unable to determine Use of terms such as suspected, likely, concern for, or probable (associated with a specific diagnosis that is being evaluated, monitored, or treated as if it exists) are acceptable and can be coded in the inpatient setting, when documented at the time of discharge. Thank you, Sarah Baird [facility], CDIS Extension: [phone] Please use your independent medical judgment in providing your response. THIS QUERY IS PART OF THE PERMANENT MEDICAL RECORD Provider Response: Other Other Diagnosis: acute osteomyelitis
--- NOTE | 2021-12-18 10:48 | W.MHC.F2F ---
Service Date Service Date: 12/18/21 Encounter Date of encounter: 12/18/21 Reasons for Services Signs and symptoms assessed: IV antibiotics for osteomyelitis wound care Reason for intermediate: wound care, central line care, diabetic teaching, medication management and medication treatment Reason for physical therapy: home safety and mobility, therapeutic exercises, restore joint function, gait/transfer training, assess need for DME, ADL training and energy conservation MD Overseeing Care: Janak Malcolm Homebound: Leaving the home is medically contraindicated at this time without the asist of a device and/or another person due th the listed conditions above and below. Reason homebound: unsteady gait / fall risk, immunosuppression / infection risk and weakness related to hospital stay Certification: Based on the above findings, I certify that this patient is confined to the home and needs intermittent intermediate care, physical therapy and/or speech therapy, or continues to need occupational therapy. The patient is under my care, and I have initiated the establishment of the plan of care. The patient will be followed by a physician who will periodically review the plan of care.
[2021-12-18 11:08] VITALS: BP 106/61; PULSE 58; RESP 18; TEMP 36.2; O2SAT 96
--- NOTE | 2021-12-18 11:08 | PM.DS ---
DS: Providers Provider Date of Service: 12/18/21 Date of admission: 12/13/21 13:34 Primary care physician: Janak Malcolm MD Consults: 12/13/21 12:22 Consult to Infectious Diseases Routine Consulting Provider: Freya Fleming Reason for consultation: ID consulted 12/13/21 13:56 Consult to Infectious Diseases Routine Consulting Provider: Freya Fleming Reason for consultation: DAPTOMYCIN 12/13/21 14:43 Consult to General Surgery Routine Consulting Provider: Tanja Castaneda Reason for consultation: left stump fluid collection ? abscess Has provider been notified: Yes 12/15/21 11:12 Consult to Vascular Surgery Routine Consulting Provider: Cameron Figueroa Reason for consultation: LLE stump abscess vs hematoma DS: Diagnosis Discharge Diagnosis (1) Cellulitis: Status: Acute (2) Acute osteomyelitis: Status: Acute (3) Hematoma: Status: Acute DS: Summary Hospital Course Hospital Course: from admission H+P by hospitalist GABINO Torres, 12/13/21: This is a 61 year old male with history of bilateral BKAs.? He presents to the emergency department today with 2-3 weeks left stump he and swelling.? The swelling has prevented him from using his left prostatic device.? He denies any associated fever or chills. ? He called his primary care physician who recommended that he come to the emergency department for evaluation. In the ED he had a CT of the left stump which showed a fluid collection? concerning for hematoma, seroma, or abscess.? Lab work showed with no evidence of leukocytosis.? ESR is elevated at 44 and CRP 3.07.? Patient has a history of stump infection osteomyelitis and for this reason he was started on broad-spectrum antibiotics and will be admitted to the hospital for further work up. This 61yo M with hx of DM2, PVD s/p bilateral BKA, peripheral neuropathy, MGUS, h/o left stump MRSA osteomyelitis presented with left stump redness and swelling concerning for abscess vs. hematoma vs seroma. He was admitted to the medical/surgical floor and treated with IV daptomycin and piperacillin/tazobactam. He was not septic. Bedside aspiration of the fluctuant area revealed blood suggestive of hematoma rather than abscess. MRI showed early osteomyelitis of the posterior aspect of the tibial amputation site. PICC was placed. He was discharged on daptomycin to complete a total of 42 days; atorvastatin should be held while on daptomycin due to the medication interaction. He was discharged home with VNA services and will follow up with Primary Care, Infectious Disease, and Vascular Surgery within 1-2 weeks. Time Spent with Patient Time attestation: Total time spent providing and/or coordinating discharge services: 45 Discharge coordination time: Greater than 30 minutes Quality: Safe Use of Opioids Does Pt have an Active Cancer Diagnosis on the Problem List?: No Quality: Stroke Does the patient have a stroke diagnosis?: No Physical Exam Vital Signs: Vital Signs: Last Vital Signs Temp 97.4 F 12/18/21 07:38 Pulse 60 12/18/21 07:38 Resp 16 12/18/21 07:38 BP 137/70 12/18/21 07:38 Pulse Ox 97 12/18/21 07:38 BMI result Body Mass Index 37.5 Gen: in no acute distress HEENT: sclera anicteric, moist mucus membranes Neck: supple Lungs: clear to auscultation bilaterally Heart: regular rate and rhythm, no murmurs Abd: soft, non-tender, non-distended Ext: bilateral BKA, L stump swollen with serosanguinous drainage Skin: warm/well-perfused Neuro: alert and oriented x3, no focal findings Psych: appropriate affect DS: Data Data Completed and Pending Completed studies during hospitalization [Text1]: Laboratory Results WBC 9.1 X10*3/uL (4.8-10.8) 12/13/21 08:22 RBC 4.09 X10*6/uL (4.60-5.80) L 12/13/21 08:22 Hgb 13.3 g/dl (14.0-18.0) L 12/13/21 08:22 Hct 37.6 % (42.0-52.0) L 12/13/21 08:22 MCV 91.9 fL (80.0-98.0) 12/13/21 08:22 MCH 32.5 pg (27.0-33.0) 12/13/21 08:22 MCHC 35.4 g/dl (31.0-36.0) 12/13/21 08:22 RDW 11.7 % (11.0-16.0) 12/13/21 08:22 Plt Count 186 X10*3/uL (160-400) 12/13/21 08: MPV 10.3 fL (9.4-12.4) 12/13/21 08: Immature Gran % (Auto) 0.5 % (0.0-0.4) H 12/13/21 08: Neut % (Auto) 66.8 % (45-73) 12/13/21 08: Lymph % (Auto) 18.6 % (20-40) L 12/13/21 08: [place] % (Auto) 12.3 % (2-11) H 12/13/21 08: Eos % (Auto) 1.4 % (0-4) 12/13/21 08: Baso % (Auto) 0.4 % (0-2) 12/13/21 08: Lymph # (Auto) 1.7 X10*3/uL (1.2-4.9) 12/13/21 08: [place] # (Auto) 1.1 X10*3/uL (0.1-1.2) 12/13/21 08: Eos # (Auto) 0.1 X10*3/uL (0.0-0.4) 12/13/21 08: Baso # (Auto) 0.0 X10*3/uL (0.0-0.2) 12/13/21 08: Abs Immat Gran (auto) 0.05 X10*3/uL (0.00-0.03) H 12/13/21 08: Absolute Neuts (auto) 6.1 x10*3/uL (2.0-8.3) 12/13/21 08: Absolute Nucleated RBC 0.000 X10*3/uL (0.0-0.012) 12/13/21 08: Nucleated RBC % (auto) 0.0 /100WBC (0.0-0.2) 12/13/21 08: ESR 44 MM/HR (0-15) H 12/13/21 08:22 Sodium 135 mmol/L (135-145) 12/15/21 05:19 Potassium 4.9 mmol/L (3.3-5.1) 12/15/21 05:19 Chloride 102 mmol/L (96-108) 12/15/21 05:19 Carbon Dioxide 27 mmol/L (22-29) 12/15/21 05:19 Anion Gap 11 (12-20) L 12/15/21 05:19 BUN 22 mg/dL (9-16) H 12/15/21 05:19 Creatinine 1.11 mg/dL (0.5-1.4) 12/15/21 05:19 Estim Creat Clear Calc 89.0 12/15/21 05:19 Estimated GFR > 60 12/15/21 05:19 Random Glucose 210 mg/dL (60-115) H 12/15/21 05:19 Calcium 8.9 mg/dL (8.4-10.2) 12/15/21 05:19 Total Bilirubin 1.0 mg/dL (0.0-1.0) 12/13/21 08:22 AST 20 U/L (5-37) 12/13/21 08:22 ALT 25 U/L (0-40) 12/13/21 08:22 Alkaline Phosphatase 84 U/L (39-117) D 12/13/21 08:22 C-Reactive Protein 3.07 mg/dL (< or = 0.50) H 12/13/21 08:22 Total Protein 6.6 g/dL (6.5-8.0) 12/13/21 08:22 Albumin 3.8 g/dL (3.5-5.0) 12/13/21 08:22 Urine Color YELLOW 12/14/21 14:29 Urine Appearance CLEAR 12/14/21 14:29 Urine pH 5.5 (5.0-8.0) 12/14/21 14:29 Ur Specific [place] 1.025 (1.005-1.025) 12/14/21 14:29 Urine Protein NEG MG/DL (NEG-TRACE) 12/14/21 14:29 Urine Glucose (UA) NEG MG/DL (NEG) 12/14/21 14:29 Urine Ketones 5 MG/DL (NEG) 12/14/21 14:29 Urine Blood NEG (NEG) 12/14/21 14:29 Urine Nitrite NEG (NEG) 12/14/21 14:29 Ur Leukocyte Esterase NEG (NEG) 12/14/21 14:29 Urine RBC 0 /HPF (0) 12/14/21 14:29 Urine WBC 0-2 /HPF (0-4) 12/14/21 14:29 Ur Squamous Epith Cells 1+ /LPF 12/14/21 14:29 Urine Bacteria TRACE /LPF 12/14/21 14:29 COVID-19 (JOSE) Negative (Negative) 12/13/21 13:39 COVID-19 Clin Com See Note 12/13/21 13:39 Impressions Knee X-Ray 12/13/21 09:15 IMPRESSION: 1. Compared to prior baseline postoperative study dated 03/07/2021, interval development of nonspecific periosteal reaction and new bone formation around the stump of the left tibia is seen. No evidence of any soft tissue gas present. 2. 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 Lower Extremity CT 12/13/21 09:59 IMPRESSION: Postop changes related to below-knee amputation. Subtle findings suggestive of slightly complex small fluid collection abutting the distal lateral aspect of the remaining tibia. This could reflect a hematoma, seroma, or abscess. Lower Extremity MRI 12/15/21 18:06 IMPRESSION: Redemonstration of a complex collection along the medial aspect of the tibial stump with adjacent soft tissue ulceration consistent with the previously seen probable abscess formation. This appears slightly decreased in prominence when compared to the prior CT likely indicating interval intervention. Adjacent cellulitis. Findings consistent with early osteomyelitis within the posterior aspect of the tibial amputation site. Chest X-Ray 12/17/21 17:27 IMPRESSION: Right-sided PICC line has tip in excellent position in SVC. Discharge Plan Discharge Patient Disposition: Home Health Service Discharge Diagnosis: cellulitis + osteomyelitis of LLE stump Referrals: [facility] [Other] - 1 Day ([facility] WILL DELIVER YOUR IV DAPTOMYCIN.) [facility] [Outside] - 1 Day (IV ABX MANAGEMENT, DAPTOMYCIN 500MG Q24HRS X42 DAYS, START OF CARE 12/19/21. ) Freya Fleming MD [Physician] - 1 Week Cameron Figueroa MD [Physician] - 1 Week Janak Malcolm MD [Primary Care Provider] - 1 Week Discharge Medications: New daptomycin 500 mg recon soln 500 mg IV Q24H Qty: 36 0RF Rx Instructions: administer over 30 mins Continued Eliquis 5 mg tablet 1 tab PO BID 0RF albuterol sulfate 90 mcg/actuation Hfa Aerosol Inhaler 2 puff INHALATION Q4-6H PRN (Reason: Shortness Of Breath) 0RF gabapentin 600 mg tablet 600 mg PO BID 0RF aspirin 81 mg tablet,delayed release (DR/EC) 81 mg PO DAILY 0RF metformin 1,000 mg tablet 1,000 mg PO BID 0RF lisinopril 5 mg tablet 5 mg PO DAILY 0RF Victoza 3-Chet 0.6 mg/0.1 mL (18 mg/3 mL) pen injector 1.8 mg subcut DAILY 0RF cholecalciferol (vitamin D3) 25 mcg (1,000 unit) tablet 25 mcg PO DAILY 0RF Tresiba FlexTouch U-100 100 unit/mL (3 mL) insulin pen 30 unit subcut BID 0RF magnesium oxide 400 mg (241.3 mg magnesium) tablet 400 mg PO BID 0RF meclizine 25 mg tablet 25 mg PO DAILY PRN (Reason: dizziness) Qty: 14 0RF insulin aspart U-100 [Novolog Flexpen U-100 Insulin] 100 unit/mL (3 mL) insulin pen 10 unit subcut TIDAC 0RF polyethylene glycol 3350 17 gram powder in packet 17 g PO MOWEFR@0900 PRN (Reason: Constipation) 0RF bisacodyl [Dulcolax (bisacodyl)] 5 mg tablet,delayed release (DR/EC) 5 mg PO BID 0RF ondansetron 4 mg tablet,disintegrating 4 mg PO Q8H PRN (Reason: nausea and vomiting) 0RF Trulance 3 mg tablet 3 mg PO DAILY 0RF (DME) lancets [FreeStyle Lancets] 28 gauge misc See Rx Instructions ea topical QID Qty: 100 0RF Rx Instructions: As directed fluoxetine 20 mg capsule 20 mg PO DAILY 0RF Held atorvastatin 40 mg tablet 40 mg PO DAILY 0RF Hold Instructions: Resume on 01/24/22. Discharge Orders: Discharge Order (Routine); Ordered 12/18/21 Ordered By: Tyrell Gomez Diet: advance to usual diet and diabetic diet Activity on Discharge: As tolerated Stand Alone Forms: Patient Portal Discharge page Care Plan Goals: cure of osteomyelitis Health Concerns: celllulitis/osteomyelitis, hematoma of LLE stump Plan of Treatment: daptomycin 500 mg IV daily via PICC, end date 6/3/22 DO NOT TAKE ATORAVSTATIN WHILE ON DAPTOMYCIN DUE TO DRUG INTERACTION; resume atorvastatin after 01/23/22 weekly labs beginning 12/22/21: CBCd, CPK, BUN, Cr, AST, ALT follow up with Primary Care, Vascular Surgery [Dr Figueroa], and Infectious Disease [Dr Fleming] in 1-2 weeks cover wound with gauze, change daily Assessment: See Discharge Summary Patient Instructions: Osteomyelitis (DC), PICC (Peripherally Inserted Central Catheter) (DC)
--- NOTE | 2021-12-18 13:35 | HO.VASCPN ---
Subjective Subjective Date of Service: 12/18/21 Patient reports: no new complaints and feels better Interval history: Patient seen and examined. No events overnight. He reports that his pain and discomfort have significantly improved overnight. No further events. He has undergone MRI. Reports that he is doing fairly well. He has been seen by Infectious Disease as well. He now presents for routine hospital visit. Physical Exam Vital Signs: Vital Signs: Last Vital Signs Temp 97.1 F 12/18/21 11:08 Pulse 58 12/18/21 11:08 Resp 18 12/18/21 11:08 BP 106/61 12/18/21 11:08 Pulse Ox 96 12/18/21 11:08 BMI result Body Mass Index 37.5 Const: General: cooperative, healthy appearing and no acute distress Orientation/consciousness: oriented to person, oriented to place and oriented to time HEENT: Head: Yes normal to inspection Neck: Carotids: no bruits Chest: Chest palpation & inspection: normal inspection of the chest Resp: Effort & Inspection: normal respiratory effort and able to speak in complete sentences Auscultation: clear to auscultation bilaterally Cardio: Rate: regular rate Heart sounds: S1 normal heart sound present and S2 normal heart sound present GI: Inspection: Yes normal to inspection Skin: General skin exam: no rashes or lesions noted Wounds: no wounds Neuro: General: oriented to person, oriented to place, oriented to time and CN's II-XI intact bilaterally Extrem: General: Yes normal to inspection, Yes full ROM and Yes no clubbing, cyanosis or edema Psych: Appearance: grossly normal and well kempt Speech and movement: Normal speech and movement present Affect: normal affect Progress Note: A&P Assessment and plan (1) Non-healing amputation site: Status: Acute Assessment and Plan: In short he has a nonhealing left BKA stump ulcer. I do believe it is more traumatic in nature. The opening in hematoma have been evacuated. He does have packing alginate. This was removed. Would continue with alginate packings covered by 4 x 4 to be changed daily. He will be seen by VNA. He is stable from my perspective for discharge. Per Infectious Disease will continue with 6 weeks of antibiotics. He can follow up with me in approximately 2 weeks time as an outpatient. Thank you for allowing us to assist in his care. If there are any questions or concerns please do not hesitate to contact us. Time Spent With Patient Time: Total time spent is greater than 50% in coordination of care (as documented) at patient's floor/unit and/or counseling patient: Procedures Date of Service Date of Service: 12/18/21 Quality Stroke Does the patient have a stroke diagnosis?: No VTE Prior VTE?: No VTE Risk Level:: Medical - moderate - high VTE Device Contraindication: Treatment Not Indicated VTE Drug Contraindication: N/A - Med Ordered
[2021-12-19 10:56] LABS: Glucose, Whole Blood 315 mg/dL (60-115)
[2021-12-19 11:29] LABS: Glucose, Whole Blood 300 mg/dL (60-115)
[2021-12-19 11:30] LABS: Glucose, Whole Blood 315 mg/dL (60-115)
[2021-12-19 11:30] LABS: Glucose, Whole Blood 437 mg/dL (60-115)
[2021-12-19 11:32] LABS: Glucose, Whole Blood 265 mg/dL (60-115)
[2021-12-19 11:34] LABS: Glucose, Whole Blood 347 mg/dL (60-115)
[2021-12-19 11:35] LABS: Glucose, Whole Blood 235 mg/dL (60-115)
[2021-12-19 11:37] LABS: Glucose, Whole Blood 265 mg/dL (60-115)
[2021-12-19 11:38] LABS: Glucose, Whole Blood 286 mg/dL (60-115)
[2021-12-19 11:39] LABS: Glucose, Whole Blood 243 mg/dL (60-115)
[2021-12-19 11:41] LABS: Glucose, Whole Blood 215 mg/dL (60-115)
[2021-12-19 11:43] LABS: Glucose, Whole Blood 228 mg/dL (60-115)
[2021-12-19 11:45] LABS: Glucose, Whole Blood 187 mg/dL (60-115)
[2021-12-19 11:46] LABS: Glucose, Whole Blood 196 mg/dL (60-115)
[2021-12-19 11:47] LABS: Glucose, Whole Blood 229 mg/dL (60-115)
[2021-12-19 11:48] LABS: Glucose, Whole Blood 233 mg/dL (60-115)
[2021-12-19 11:50] LABS: Glucose, Whole Blood 259 mg/dL (60-115)
[2021-12-19 11:56] LABS: Glucose, Whole Blood 246 mg/dL (60-115)
[2021-12-19 11:57] LABS: Glucose, Whole Blood 151 mg/dL (60-115)
[2021-12-19 11:59] LABS: Glucose, Whole Blood 148 mg/dL (60-115)
[2021-12-19 12:00] LABS: Glucose, Whole Blood 148 mg/dL (60-115)
[2021-12-19 12:02] LABS: Glucose, Whole Blood 271 mg/dL (60-115)
[2021-12-19 12:02] LABS: Glucose, Whole Blood 179 mg/dL (60-115)
[2021-12-19 12:04] LABS: Glucose, Whole Blood 165 mg/dL (60-115)
== END 2021-12-18 13:54 | disposition home health service (06) | DRG 565 ==
LOC: HO.ED 13:33 → HO.EDOVER 13:51 → HO.S3 15:45
PROVIDERS: Admitting Provider Physician Assistant Medical; Emergency Provider Emergency Medicine; PCP Internal Medicine; Visit Provider Family Medicine
DX: T87.44 Infection of amputation stump, left lower extremity (principal); L03.116 Cellulitis of left lower limb; M86.162 Other acute osteomyelitis, left tibia and fibula; K59.09 Other constipation; E78.5 Hyperlipidemia, unspecified; R42 Dizziness and giddiness; E11.42 Type 2 diabetes mellitus with diabetic polyneuropathy; E11.51 Type 2 diabetes mellitus with diabetic peripheral angiopathy without gangrene; R30.0 Dysuria; E11.69 Type 2 diabetes mellitus with other specified complication; Z20.822 Contact with and (suspected) exposure to COVID-19; Z87.891 Personal history of nicotine dependence; T87.89 Other complications of amputation stump; Z89.511 Acquired absence of right leg below knee; Z86.711 Personal history of pulmonary embolism; Z86.14 Personal history of Methicillin resistant Staphylococcus aureus infection; Z79.4 Long term (current) use of insulin; Z79.01 Long term (current) use of anticoagulants; Z79.82 Long term (current) use of aspirin; Z79.84 Long term (current) use of oral hypoglycemic drugs; Z79.899 Other long term (current) drug therapy
CPT/HCPCS: 36415; 36573; 71045; 73560; 73700; 73719; 80048; 80053; 81001; 82947; 85025; 85652; 86140; 87040; 87635; 94660; 96365; 96375; 99285; A9585; C1751; J0878; J2543

== ENCOUNTER → 2022-01-01 10:37 | Outpatient (BNVA) | payer OTHER, SELFPAY | PROVIDERS: PCP Internal Medicine; Visit Provider Surgery Vascular Surgery | DX: I73.9 Peripheral vascular disease, unspecified (principal) | CPT/HCPCS: 99212 ==

== ENCOUNTER → 2022-01-02 10:03 | Outpatient (BNVA) | payer OTHER, SELFPAY | PROVIDERS: Visit Provider Internal Medicine | DX: M86.8X6 Other osteomyelitis, lower leg (principal); Z89.512 Acquired absence of left leg below knee; Z89.511 Acquired absence of right leg below knee | CPT/HCPCS: 99212 ==

== ENCOUNTER → 2022-01-30 10:12 | Outpatient (BNVA) | payer OTHER, SELFPAY | PROVIDERS: Visit Provider Internal Medicine | DX: Z87.39 Personal history of other diseases of the musculoskeletal system and connective tissue (principal); Z89.612 Acquired absence of left leg above knee | CPT/HCPCS: 99212 ==

== ENCOUNTER → 2022-02-03 10:20 | Outpatient (BNVA) | payer OTHER, SELFPAY | PROVIDERS: PCP Internal Medicine; Visit Provider Surgery Vascular Surgery | DX: I73.9 Peripheral vascular disease, unspecified (principal); Z89.512 Acquired absence of left leg below knee; Z89.511 Acquired absence of right leg below knee | CPT/HCPCS: 99212 ==

== ENCOUNTER 2022-03-05 12:18 | Emergency (ER) | payer OTHER, SELFPAY ==
--- NOTE | ~2022-03-05 | XR_ITS ---
EXAMINATION: XR TIBIA AND FIBULA, LEFT CLINICAL INFORMATION: Evaluate for osteomyelitis COMPARISON: 12/13/2021 TECHNIQUE: AP and lateral views of the left tibia and fibula were obtained. FINDINGS: No significant change in the appearance of the distal tibia and fibula status post below-knee amputation no radiographic evidence of osteomyelitis. XR/XR tibia fibula LT 2V IMPRESSION: No radiographic evidence of osteomyelitis. No significant change.
[2022-03-05 12:40] VITALS: BP 126/78; PULSE 82; O2SAT 95
[2022-03-05 12:41] VITALS: BP 123/70; PULSE 79; RESP 16; TEMP 36.5; O2SAT 95; BMI 48.8
[2022-03-05 13:20] LABS: MANUAL DIFF FLAG NO
[2022-03-05 13:22] LABS: Basophils Absolute Auto 0.1 X10*3/uL (0.0-0.2); Basophils Percent Auto 0.8 % (0-2); Eosinophils Absolute Auto 0.2 X10*3/uL (0.0-0.4); Eosinophils Percent Auto 2.2 % (0-4); Hematocrit 39.6 % (42.0-52.0); Hemoglobin 14.1 g/dl (14.0-18.0); Imm Gran Abs Auto 0.03 X10*3/uL (0.00-0.03); Imm Gran Pct Auto 0.4 % (0.0-0.4); Lymphocytes Absolute Auto 2.3 X10*3/uL (1.2-4.9); Lymphocytes Percent Auto 31.6 % (20-40); Mean Corpuscular HGB Conc 35.6 g/dl (31.0-36.0); Mean Corpuscular Hemoglobin 32.9 pg (27.0-33.0); Mean Corpuscular Volume 92.3 fL (80.0-98.0); Mean Platelet Volume 10.6 fL (9.4-12.4); Monocytes Absolute Auto 0.7 X10*3/uL (0.1-1.2); Monocytes Percent Auto 9.5 % (2-11); Neutrophils Percent Auto 55.5 % (45-73); Platelet Count 175 X10*3/uL (160-400); Red Blood Count 4.29 X10*6/uL (4.60-5.80); White Blood Count 7.3 X10*3/uL (4.8-10.8)
--- NOTE | 2022-03-05 13:47 | ED_ITS ---
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 Reports intermittent pain, intermittent swelling and redness to area. Admits symptoms are improved/asymptomatic today. Denies fever, chills, drainage from area MD Complaint: extremity pain Onset (ago): week(s) Related Data Home Medications Medication Instructions Recorded Confirmed aspirin 81 mg tablet,delayed 81 mg PO DAILY 07/17/20 12/13/21 release gabapentin 600 mg tablet 600 mg PO BID 07/17/20 12/13/21 liraglutide 0.6 mg/0.1 mL (18 mg/3 1.8 mg subcut DAILY 07/17/20 12/13/21 mL) subcutaneous pen injector (Victoza 3-Chet) lisinopril 5 mg tablet 5 mg PO DAILY 07/17/20 12/13/21 metformin 1,000 mg tablet 1,000 mg PO BID 07/17/20 12/13/21 cholecalciferol (vitamin D3) 25 25 mcg PO DAILY 09/04/20 12/13/21 mcg (1,000 unit) tablet atorvastatin 40 mg tablet 40 mg PO DAILY 10/09/20 12/13/21 insulin degludec 100 unit/mL (3 30 unit subcut BID 12/23/20 12/13/21 mL) subcutaneous pen (Tresiba FlexTouch U-100 insulin) magnesium oxide 400 mg (241.3 mg 400 mg PO BID 03/07/21 12/13/21 magnesium) tablet lancets 28 gauge (FreeStyle #100 ea 03/20/21 Lancets) albuterol sulfate 90 mcg/actuation 2 puff inhalation Q4-6H PRN 04/10/21 12/13/21 aerosol inhaler Shortness Of Breath apixaban 5 mg tablet (Eliquis) 1 tab PO BID 04/10/21 12/13/21 fluoxetine 20 mg capsule 20 mg PO DAILY 05/26/21 12/13/21 bisacodyl 5 mg tablet,delayed 5 mg PO BID 12/13/21 12/13/21 release (Dulcolax (bisacodyl)) insulin aspart U-100 100 unit/mL 10 unit subcut TIDAC 12/13/21 12/13/21 (3 mL) subcutaneous pen (Novolog Flexpen U-100 Insulin aspart) ondansetron 4 mg disintegrating 4 mg PO Q8H PRN nausea and vomiting 12/13/21 12/13/21 tablet plecanatide 3 mg tablet (Trulance) 3 mg PO DAILY 12/13/21 12/13/21 polyethylene glycol 3350 17 gram 17 g PO MOWEFR@0900 PRN 12/13/21 12/13/21 oral powder packet Constipation flash glucose sensor (FreeStyle #1 ea 01/01/22 Pablo 2 Sensor) pen needle, diabetic 31 gauge x #1,200 ea 01/01/2201/05 (BD Ultra-Fine Short Pen Needle) hydroxyzine HCl 10 mg tablet 10 mg PO BID 01/30/22 venlafaxine 75 mg capsule,extended 75 mg PO DAILY 01/30/22 release 24 hr flash glucose scanning reader #1 02/03/22 (FreeStyle Pablo 2 [place]) mirtazapine 15 mg tablet 15 mg PO BEDTIME 02/03/22 Previous Rx's Medication Instructions Recorded meclizine 25 mg tablet 25 mg PO DAILY PRN dizziness #14 09/26/21 tabs daptomycin 500 mg intravenous 500 mg IV Q24H #36 ea 12/18/21 solution doxycycline hyclate 100 mg capsule 100 mg PO BID 30 days #60 caps 01/02/22 cephalexin 500 mg capsule 500 mg PO QID 7 days #28 caps 03/05/22 Allergies Allergy/AdvReac Type Severity Reaction Status Date / Time vancomycin AdvReac Severe thrombocyto Verified 02/03/22 10:24 penia Review of Systems Review of Systems: Constitutional: No Fever, No Chills, No Fatigue, No Malaise ENT/Mouth: No Ear Pain, No Nasal Congestion, No sore throat, No Rhinorrhea, No Swallowing Difficulty Eyes: No Eye Pain, No Swelling, No Redness, No Vision Changes Cardiovascular: No Chest Pain, No SOB, No Edema, No Palpitations Respiratory: No Cough, No Sputum, No Dyspnea Gastrointestinal: No Nausea, No Vomiting, No Diarrhea, No Constipation, No Abdominal pain Genitourinary: No Dysuria, No Urinary Frequency, No Hematuria, No Flank Pain Musculoskeletal: + joint pain, No Myalgias, + Joint Swelling Skin: + Skin Lesions, No rash Neuro: No Weakness, No Numbness, No Paresthesias, No Loss of Consciousness, No Dizziness, No Headache Yes all other systems are reviewed and are negative [facility] Past Medical History Attestation statement: The following information was validated with the patient. Medical History Abscess CIRILO (acute kidney injury) Amputated great toe of right foot Anxiety and depression Back pain Cellulitis COPD (chronic obstructive pulmonary disease) Diabetes Diabetic foot infection Drug-induced thrombocytopenia Hx MRSA infection Hyperlipidemia Hypertension Hyponatremia IDDM (insulin dependent diabetes mellitus) MGUS (monoclonal gammopathy of unknown significance) Neck pain Non-healing amputation site Obesity Peripheral neuropathy Psychiatric diagnosis PVD (peripheral vascular disease) Sleep apnea Surgical History H/O abdominoplasty H/O colonoscopy Hx of angioplasty Hx of appendectomy Hx of foot surgery Hx of tonsillectomy Hx of umbilical hernia repair S/P anal fissurectomy S/P BKA (below knee amputation) bilateral Status post below-knee amputation Family History Family History Other No history of heart disease Social History Social History Household Members: None Housing: House Do you presently have visiting nurse or other home services: Yes ([facility]) Alcohol intake: never Patient Tobacco Use Status: Former Tobacco user Quit Date: 30 YEARS AGO Tobacco use type: Cigarette Second Hand Smoke Exposure: No Advance Directives: Yes Advance Directives on File: Yes Advance Directives Date on File: 11/06/20 service: Yes Current occupational status: disabled Physical Exam Vital Signs: Vital Signs: Last Vital Signs Temp 97.7 F 03/05/22 12:41 Pulse 79 03/05/22 12:41 Resp 16 03/05/22 12:41 BP 123/70 03/05/22 12:41 Pulse Ox 95 03/05/22 12:41 O2 Del Method 03/05/22 12:41 BMI result Body Mass Index 48.8 Const: General: cooperative, healthy appearing and no acute distress Orientation/consciousness: patient oriented x3 Limitations: no limitations HEENT: Head: Yes normal to inspection and Yes atraumatic Ears: hearing grossly normal bilaterally General nose exam: Normal external nose present Face and sinus: Yes normal facial exam Eyes: General: appearance normal, both eyes and all related structures EOM: EOMs intact bilaterally Neck: Neck: Yes normal visual inspection and Yes no meningeal signs Resp: Effort & Inspection: normal respiratory effort and no respiratory distress Cardio: Rate: regular rate Heart sounds: S1 normal heart sound present and S2 normal heart sound present Skin: Rashes: no rashes Wounds: no wounds Neuro: General: patient oriented x3, tone normal and no meningeal signs Extrem: Other: Please refer to images above. Left stump with small scab as noted that is mildly warm to touch. No erythema, no swelling, no streaking, no fluctua nce/induration. Course Course Course Narrative: -no leukocytosis. ESR chronically elevated > better than priors -BUN chronically elevated. CRP WNL XR tibia fibula LT 2V IMPRESSION: No radiographic evidence of osteomyelitis. No significant change. > results discussed with patient. With shared decision-making will send Keflex to pharmacy, discussed with patient wound does not look infected at this time however due to reported fluctuation in symptoms and recurrent infection will send as a precaution. Discussed needed close follow-up and when to return to the emergency department. 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 On exam vital signs stable, NAD, nontoxic appearing, please refer to images above. Concern for early cellulitis vs recurrent osteo. No evidence of abscess Plan: labs, x-ray Differential Diagnosis Differential diagnosis: Likely cellulitis Medical Records Attestation: I reviewed the patient's medical records. Lab Data Attestation: I reviewed the patient's lab results. Result diagrams: 03/05/22 13:15 03/05/22 13:14 Labs: Lab Results 03/05/22 03/05/22 03/05/22 Range/Units 13:14 13:15 13:15 WBC 7.3 (4.8-10.8) X10*3/uL RBC 4.29 L (4.60-5.80) X10*6/uL Hgb 14.1 (14.0-18.0) g/dl Hct 39.6 L (42.0-52.0) % MCV 92.3 (80.0-98.0) fL MCH 32.9 (27.0-33.0) pg MCHC 35.6 (31.0-36.0) g/dl RDW 12.0 (11.0-16.0) % Plt Count 175 (160-400) X10*3/uL MPV 10.6 (9.4-12.4) fL Immature Gran % (Auto) 0.4 (0.0-0.4) % Neut % (Auto) 55.5 (45-73) % Lymph % (Auto) 31.6 (20-40) % [place] % (Auto) 9.5 (2-11) % Eos % (Auto) 2.2 (0-4) % Baso % (Auto) 0.8 (0-2) % Lymph # (Auto) 2.3 (1.2-4.9) X10*3/uL [place] # (Auto) 0.7 (0.1-1.2) X10*3/uL Eos # (Auto) 0.2 (0.0-0.4) X10*3/uL Baso # (Auto) 0.1 (0.0-0.2) X10*3/uL Abs Immat Gran (auto) 0.03 (0.00-0.03) X10*3/uL Absolute Neuts (auto) 4.0 (2.0-8.3) x10*3/uL Absolute Nucleated RBC 0.000 (0.0-0.012) X10*3/uL Nucleated RBC % (auto) 0.0 (0.0-0.2) /100WBC ESR 22 H (0-15) MM/HR Sodium 136 (135-145) mmol/L Potassium 4.9 (3.3-5.1) mmol/L Chloride 103 (96-108) mmol/L Carbon Dioxide 25 (22-29) mmol/L Anion Gap 13 (12-20) BUN 28 H (9-16) mg/dL Creatinine 1.20 (0.5-1.4) mg/dL Estim Creat Clear Calc 67.1 Estimated GFR > 60 Random Glucose 177 H (60-115) mg/dL Calcium 9.4 (8.4-10.2) mg/dL C-Reactive Protein 0.20 (< or = 0.50) mg/dL Discharge Plan Discharge Clinical Impression: Stump pain Patient Disposition: Home, Self-Care Instructions: Leg Pain (ED) Additional Instructions: Your blood work was reassuring today in the emergency department. X-ray did not show osteomyelitis It is very important that you have close follow-up with her doctors. Keflex was sent to the pharmacy if your wound begins to look infected again, as does not look infected today If symptoms persist, recur, fever, drainage from area or persistent unremitting pain return to the emergency department Prescriptions: New cephalexin 500 mg capsule 500 mg PO QID 7 Days Qty: 28 0RF No Action atorvastatin 40 mg tablet 40 mg PO DAILY Hold Instructions: Resume on 01/24/22. Eliquis 5 mg tablet 1 tab PO BID albuterol sulfate 90 mcg/actuation Hfa Aerosol Inhaler 2 puff INHALATION Q4-6H PRN (Reason: Shortness Of Breath) gabapentin 600 mg tablet 600 mg PO BID aspirin 81 mg tablet,delayed release (DR/EC) 81 mg PO DAILY metformin 1,000 mg tablet 1,000 mg PO BID lisinopril 5 mg tablet 5 mg PO DAILY Victoza 3-Chet 0.6 mg/0.1 mL (18 mg/3 mL) pen injector 1.8 mg subcut DAILY cholecalciferol (vitamin D3) 25 mcg (1,000 unit) tablet 25 mcg PO DAILY Tresiba FlexTouch U-100 100 unit/mL (3 mL) insulin pen 30 unit subcut BID magnesium oxide 400 mg (241.3 mg magnesium) tablet 400 mg PO BID meclizine 25 mg tablet 25 mg PO DAILY PRN (Reason: dizziness) Qty: 14 0RF insulin aspart U-100 [Novolog Flexpen U-100 Insulin] 100 unit/mL (3 mL) insulin pen 10 unit subcut TIDAC polyethylene glycol 3350 17 gram powder in packet 17 g PO MOWEFR@0900 PRN (Reason: Constipation) bisacodyl [Dulcolax (bisacodyl)] 5 mg tablet,delayed release (DR/EC) 5 mg PO BID ondansetron 4 mg tablet,disintegrating 4 mg PO Q8H PRN (Reason: nausea and vomiting) Trulance 3 mg tablet 3 mg PO DAILY daptomycin 500 mg recon soln 500 mg IV Q24H Qty: 36 0RF Rx Instructions: administer over 30 mins (DME) lancets [FreeStyle Lancets] 28 gauge misc See Rx Instructions topical QID Qty: 100 Rx Instructions: As directed venlafaxine 75 mg capsule,extended release 24hr 75 mg PO DAILY hydroxyzine HCl 10 mg tablet 10 mg PO BID fluoxetine 20 mg capsule 20 mg PO DAILY doxycycline hyclate 100 mg capsule 100 mg PO BID 30 Days Qty: 60 1RF (DME) FreeStyle Pablo 2 Sensor Kit See Rx Instructions .ROUTE .MEDSUPPLY Qty: 1 Rx Instructions: As directed (DME) pen needle, diabetic [BD Ultra-Fine Short Pen Needle] 31 gauge x 5/16 needle See Rx Instructions subcut .MEDSUPPLY Qty: 1200 Rx Instructions: As directed mirtazapine 15 mg tablet 15 mg PO BEDTIME (DME) FreeStyle Pablo 2 [place] Misc See Rx Instructions .ROUTE .MEDSUPPLY Qty: 1 Rx Instructions: As directed Referrals: Freya Fleming MD [Physician] - Cameron Figueroa MD [Physician] -
[2022-03-05 13:48] LABS: Anion Gap 13 (12-20); Blood Urea Nitrogen 28 mg/dL (9-16); Calcium 9.4 mg/dL (8.4-10.2); Carbon Dioxide 25 mmol/L (22-29); Chloride 103 mmol/L (96-108); Creatinine Clr Calc Pharmacy 67.1; Estimated Glomerular Filt Rate > 60; Glucose Random 177 mg/dL (60-115); Potassium 4.9 mmol/L (3.3-5.1); Sodium 136 mmol/L (135-145)
[2022-03-05 14:18] LABS: Erythrocyte Sedimentation Rate 22 MM/HR (0-15)
== END 2022-03-05 15:51 | disposition home or self-care (01) ==
PROVIDERS: Physician Assistant; Emergency Provider Emergency Medicine; PCP Internal Medicine
DX: M79.662 Pain in left lower leg (principal); M79.605 Pain in left leg; M79.604 Pain in right leg; Z79.899 Other long term (current) drug therapy
CPT/HCPCS: 36415; 73590; 80048; 85025; 85652; 86140; 99282; 99283

== ENCOUNTER → 2022-03-27 09:45 | Outpatient (BNVA) | payer OTHER, SELFPAY | PROVIDERS: PCP Internal Medicine; Visit Provider Internal Medicine | DX: M79.662 Pain in left lower leg (principal) | CPT/HCPCS: 99212 ==

== ENCOUNTER 2022-04-03 10:05 | Emergency (ER) | payer OTHER, SELFPAY ==
--- NOTE | ~2022-04-03 | XR_ITS ---
EXAMINATION: XR TIBIA AND FIBULA, LEFT CLINICAL INFORMATION: Swelling and warmth at stump COMPARISON: 03/05/2022 TECHNIQUE: AP and lateral views of the left tibia and fibula were obtained. XR/XR tibia fibula LT 2V FINDINGS/IMPRESSION: No significant change in appearance of the tibial and fibular osteotomies and overlying soft tissues. No new erosion or bone destruction to suggest osteomyelitis. If there is a strong clinical suspicion, an MRI would be suggested.
[2022-04-03 10:13] VITALS: BP 118/74; BP 128/72; PULSE 86; PULSE 90; RESP 18; TEMP 36.8; O2SAT 96; BMI 32.1
--- NOTE | 2022-04-03 11:25 | ED_ITS ---
HPI - General Adult General Chief complaint: General Medical Stated complaint: ? infection Time Seen by Provider: 04/03/22 10:38 Source: patient Mode of arrival: EMS History of Present Illness HPI narrative: 62-year-old male with history of bilateral BKA as well as diabetes presents after sustaining a fall out of bed on Wednesday without head strike or loss consciousness and then again states that he fell out of his wheelchair yesterday while reaching for something once again and striking the and of his stump. He denies any head strike or loss of consciousness and denies any fever, chills but states that he has also had recurrence of his urinary pain, burning as well as frequency. He states that a few weeks ago he was diagnosed with the UTI by his urologist and has known BPH. He denies being on any medications for his BPH. Patient notes that his left BKA stump has become swollen and mildly red. Related Data Home Medications Medication Instructions Recorded Confirmed aspirin 81 mg tablet,delayed 81 mg PO DAILY 07/17/20 12/13/21 release gabapentin 600 mg tablet 600 mg PO BID 07/17/20 12/13/21 liraglutide 0.6 mg/0.1 mL (18 mg/3 1.8 mg subcut DAILY 07/17/20 12/13/21 mL) subcutaneous pen injector (Victoza 3-Chet) lisinopril 5 mg tablet 5 mg PO DAILY 07/17/20 12/13/21 metformin 1,000 mg tablet 1,000 mg PO BID 07/17/20 12/13/21 cholecalciferol (vitamin D3) 25 25 mcg PO DAILY 09/04/20 12/13/21 mcg (1,000 unit) tablet atorvastatin 40 mg tablet 40 mg PO DAILY 10/09/20 12/13/21 insulin degludec 100 unit/mL (3 30 unit subcut BID 12/23/20 12/13/21 mL) subcutaneous pen (Tresiba FlexTouch U-100 insulin) magnesium oxide 400 mg (241.3 mg 400 mg PO BID 03/07/21 12/13/21 magnesium) tablet lancets 28 gauge (FreeStyle #100 ea 03/20/21 Lancets) albuterol sulfate 90 mcg/actuation 2 puff inhalation Q4-6H PRN 04/10/21 12/13/21 aerosol inhaler Shortness Of Breath apixaban 5 mg tablet (Eliquis) 1 tab PO BID 04/10/21 12/13/21 fluoxetine 20 mg capsule 20 mg PO DAILY 05/26/21 12/13/21 bisacodyl 5 mg tablet,delayed 5 mg PO BID 12/13/21 12/13/21 release (Dulcolax (bisacodyl)) insulin aspart U-100 100 unit/mL 10 unit subcut TIDAC 12/13/21 12/13/21 (3 mL) subcutaneous pen (Novolog Flexpen U-100 Insulin aspart) ondansetron 4 mg disintegrating 4 mg PO Q8H PRN nausea and vomiting 12/13/21 12/13/21 tablet plecanatide 3 mg tablet (Trulance) 3 mg PO DAILY 12/13/21 12/13/21 polyethylene glycol 3350 17 gram 17 g PO MOWEFR@0900 PRN 12/13/21 12/13/21 oral powder packet Constipation flash glucose sensor (FreeStyle #1 ea 01/01/22 Pablo 2 Sensor kit) pen needle, diabetic 31 gauge x #1,200 ea 01/01/2201/05 (BD Ultra-Fine Short Pen Needle) hydroxyzine HCl 10 mg tablet 10 mg PO BID 01/30/22 venlafaxine 75 mg capsule,extended 75 mg PO DAILY 01/30/22 release 24 hr flash glucose scanning reader #1 ea 02/03/22 (FreeStyle Pablo 2 [place]) mirtazapine 15 mg tablet 15 mg PO BEDTIME 02/03/22 Previous Rx's Medication Instructions Recorded meclizine 25 mg tablet 25 mg PO DAILY PRN dizziness #14 09/26/21 tabs daptomycin 500 mg intravenous 500 mg IV Q24H #36 ea 12/18/21 solution doxycycline hyclate 100 mg capsule 100 mg PO BID 30 days #60 caps 01/02/22 cephalexin 500 mg capsule 500 mg PO QID 7 days #28 caps 03/05/22 nitrofurantoin 100 mg PO Q12H 7 days #14 caps 04/03/22 monohydrate/macrocrystals 100 mg capsule (Macrobid) Allergies Allergy/AdvReac Type Severity Reaction Status Date / Time vancomycin AdvReac Severe thrombocyto Verified 04/03/22 10:23 penia Review of Systems Review of Systems: Pertinent positives and negatives as stated in HPI 10 point review of systems is otherwise negative. PMFSH Past Medical History Source: nursing notes reviewed Medical History Abscess CIRILO (acute kidney injury) Amputated great toe of right foot Anxiety and depression Back pain Cellulitis COPD (chronic obstructive pulmonary disease) Diabetes Diabetic foot infection Drug-induced thrombocytopenia Hx MRSA infection Hyperlipidemia Hypertension Hyponatremia IDDM (insulin dependent diabetes mellitus) MGUS (monoclonal gammopathy of unknown significance) Neck pain Non-healing amputation site Obesity Peripheral neuropathy Psychiatric diagnosis PVD (peripheral vascular disease) Sleep apnea Surgical History H/O abdominoplasty H/O colonoscopy Hx of angioplasty Hx of appendectomy Hx of foot surgery Hx of tonsillectomy Hx of umbilical hernia repair S/P anal fissurectomy S/P BKA (below knee amputation) bilateral Status post below-knee amputation Family History Family History Other No history of heart disease Social History Social History Household Members: None Housing: House Do you presently have visiting nurse or other home services: Yes ([facility]) Alcohol intake: never Patient Tobacco Use Status: Former Tobacco user Quit Date: 30 YEARS AGO Tobacco use type: Cigarette Second Hand Smoke Exposure: No Advance Directives: Yes Advance Directives on File: Yes Advance Directives Date on File: 11/06/20 service: Yes Current occupational status: disabled Physical Exam ED Vital Signs: Vital Signs - 24 hr 04/03/22 10:13 Temperature 98.2 F Pulse Rate 86 Respiratory Rate 18 Blood Pressure 128/72 Pulse Oximetry 96 Oxygen Delivery Method Room Air BMI result Body Mass Index 32.1 VITAL SIGNS: Reviewed. GENERAL: Well developed, well nourished, in no acute distress. HEAD: Normocephalic/atraumatic EYES: PERRLA, EOMI EARS: Ext canals without abnormality OROPHARYNX: no oral lesions noted, posterior pharynx clear LUNGS: Normal breath sounds. No adventitious sounds or accessory muscle use. SpO2<96> CARDIOVASCULAR: Regular rate and rhythm without noted murmurs, no JVD or lower extremity edema. ABDOMEN: Soft, non-tender, non-distended with bowel sounds. = MUSCULOSKELETAL: No tenderness, deformities, or effusions noted on gross insp ection. EXTREMITIES: No cyanosis, clubbing or edema; BILATERAL BKA; LEFT LOWER EXTREMITY: There is noted swelling and redness to the anterior aspect of the stump without fluctuance or skin breakdown. SKIN: Inspection of the skin reveals no rashes NEUROLOGIC: Alert and oriented x 4. Strength and sensation to light touch were grossly intact x 4. Course Course Course Narrative: 62-year-old male with history and clinical presentation suggestive of possible osteomyelitis verses injury due to his fall from the wheelchair yesterday, will obtain basic labs as well as lactic acid/blood cultures and x-ray. In addition, will evaluate urine for recurrence of UTI. Review of all investigations in consistent with osteomyelitis at this time, also no evidence to suggest acute fracture. However patient does have a UTI and on review of prior microbiology results which demonstrated sensitivity to Macrobid patient will be started on a one-week course of this with initial antibiotic given here. He was informed of all results and discharged home in stable condition. Medical Decision Making Lab Data Result diagrams: 04/03/22 11:27 04/03/22 11:27 Labs: Lab Results 04/03/22 04/03/22 04/03/22 Range/Units 11:27 11:27 11:27 WBC 7.4 (4.8-10.8) X10*3/uL RBC 4.09 L (4.60-5.80) X10*6/uL Hgb 13.3 L (14.0-18.0) g/dl Hct 37.9 L (42.0-52.0) % MCV 92.7 (80.0-98.0) fL MCH 32.5 (27.0-33.0) pg MCHC 35.1 (31.0-36.0) g/dl RDW 11.9 (11.0-16.0) % Plt Count 176 (160-400) X10*3/uL MPV 10.6 (9.4-12.4) fL Immature Gran % (Auto) 0.7 H (0.0-0.4) % Neut % (Auto) 50.0 (45-73) % Lymph % (Auto) 37.2 (20-40) % [place] % (Auto) 9.4 (2-11) % Eos % (Auto) 2.0 (0-4) % Baso % (Auto) 0.7 (0-2) % Lymph # (Auto) 2.8 (1.2-4.9) X10*3/uL [place] # (Auto) 0.7 (0.1-1.2) X10*3/uL Eos # (Auto) 0.2 (0.0-0.4) X10*3/uL Baso # (Auto) 0.1 (0.0-0.2) X10*3/uL Abs Immat Gran (auto) 0.05 H (0.00-0.03) X10*3/uL Absolute Neuts (auto) 3.7 (2.0-8.3) x10*3/uL Absolute Nucleated RBC 0.000 (0.0-0.012) X10*3/uL Nucleated RBC % (auto) 0.0 (0.0-0.2) /100WBC Sodium 138 (135-145) mmol/L Potassium 4.5 (3.3-5.1) mmol/L Chloride 102 (96-108) mmol/L Carbon Dioxide 25 (22-29) mmol/L Anion Gap 16 (12-20) BUN 22 H (9-16) mg/dL Creatinine 1.03 (0.5-1.4) mg/dL Estim Creat Clear Calc 98.3 Estimated GFR > 60 Random Glucose 141 H (60-115) mg/dL Lactic Acid 1.2 (0.5-2.0) mmol/L Calcium 9.0 (8.4-10.2) mg/dL Total Bilirubin 0.5 (0.0-1.0) mg/dL AST 22 (5-37) U/L ALT 23 (0-40) U/L Alkaline Phosphatase 90 (39-117) U/L Total Protein 6.7 (6.5-8.0) g/dL Albumin 3.9 (3.5-5.0) g/dL Urine Color Urine Appearance Urine pH (5.0-8.0) Ur Specific [place] (1.005-1.025) Urine Protein (NEG-TRACE) MG/DL Urine Glucose (UA) (NEG) MG/DL Urine Ketones (NEG) MG/DL Urine Blood (NEG) Urine Nitrite (NEG) Ur Leukocyte Esterase (NEG) 04/03/22 Range/Units 13:00 WBC (4.8-10.8) X10*3/uL RBC (4.60-5.80) X10*6/uL Hgb (14.0-18.0) g/dl Hct (42.0-52.0) % MCV (80.0-98.0) fL MCH (27.0-33.0) pg MCHC (31.0-36.0) g/dl RDW (11.0-16.0) % Plt Count (160-400) X10*3/uL MPV (9.4-12.4) fL Immature Gran % (Auto) (0.0-0.4) % Neut % (Auto) (45-73) % Lymph % (Auto) (20-40) % [place] % (Auto) (2-11) % Eos % (Auto) (0-4) % Baso % (Auto) (0-2) % Lymph # (Auto) (1.2-4.9) X10*3/uL [place] # (Auto) (0.1-1.2) X10*3/uL Eos # (Auto) (0.0-0.4) X10*3/uL Baso # (Auto) (0.0-0.2) X10*3/uL Abs Immat Gran (auto) (0.00-0.03) X10*3/uL Absolute Neuts (auto) (2.0-8.3) x10*3/uL Absolute Nucleated RBC (0.0-0.012) X10*3/uL Nucleated RBC % (auto) (0.0-0.2) /100WBC Sodium (135-145) mmol/L Potassium (3.3-5.1) mmol/L Chloride (96-108) mmol/L Carbon Dioxide (22-29) mmol/L Anion Gap (12-20) BUN (9-16) mg/dL Creatinine (0.5-1.4) mg/dL Estim Creat Clear Calc Estimated GFR Random Glucose (60-115) mg/dL Lactic Acid (0.5-2.0) mmol/L Calcium (8.4-10.2) mg/dL Total Bilirubin (0.0-1.0) mg/dL AST (5-37) U/L ALT (0-40) U/L Alkaline Phosphatase (39-117) U/L Total Protein (6.5-8.0) g/dL Albumin (3.5-5.0) g/dL Urine Color YELLOW Urine Appearance HAZY Urine pH 5.5 (5.0-8.0) Ur Specific [place] 1.020 (1.005-1.025) Urine Protein NEG (NEG-TRACE) MG/DL Urine Glucose (UA) NEG (NEG) MG/DL Urine Ketones NEG (NEG) MG/DL Urine Blood TRACE (NEG) Urine Nitrite POS H (NEG) Ur Leukocyte Esterase 3+ H (NEG) Discharge Plan Discharge Clinical Impression: Acute UTI Patient Disposition: Home, Self-Care Instructions: Urinary Tract Infection in Men (ED) Additional Instructions: 1. Resume all home medications as prescribed. 2. Complete the entire course of antibiotics as prescribed 3. Please follow-up with primary care provider in the next 2-3 days. Return to the ER for worsening symptoms. Prescriptions: New nitrofurantoin monohyd/m-cryst [Macrobid] 100 mg capsule 100 mg PO Q12H 7 Days Qty: 14 0RF Rx Instructions: must administer with a meal/food No Action atorvastatin 40 mg tablet 40 mg PO DAILY Hold Instructions: Resume on 01/24/22. Eliquis 5 mg tablet 1 tab PO BID albuterol sulfate 90 mcg/actuation Hfa Aerosol Inhaler 2 puff INHALATION Q4-6H PRN (Reason: Shortness Of Breath) gabapentin 600 mg tablet 600 mg PO BID aspirin 81 mg tablet,delayed release (DR/EC) 81 mg PO DAILY metformin 1,000 mg tablet 1,000 mg PO BID lisinopril 5 mg tablet 5 mg PO DAILY Victoza 3-Chet 0.6 mg/0.1 mL (18 mg/3 mL) pen injector 1.8 mg subcut DAILY cholecalciferol (vitamin D3) 25 mcg (1,000 unit) tablet 25 mcg PO DAILY Tresiba FlexTouch U-100 100 unit/mL (3 mL) insulin pen 30 unit subcut BID magnesium oxide 400 mg (241.3 mg magnesium) tablet 400 mg PO BID meclizine 25 mg tablet 25 mg PO DAILY PRN (Reason: dizziness) Qty: 14 0RF insulin aspart U-100 [Novolog Flexpen U-100 Insulin] 100 unit/mL (3 mL) insulin pen 10 unit subcut TIDAC polyethylene glycol 3350 17 gram powder in packet 17 g PO MOWEFR@0900 PRN (Reason: Constipation) bisacodyl [Dulcolax (bisacodyl)] 5 mg tablet,delayed release (DR/EC) 5 mg PO BID ondansetron 4 mg tablet,disintegrating 4 mg PO Q8H PRN (Reason: nausea and vomiting) Trulance 3 mg tablet 3 mg PO DAILY daptomycin 500 mg recon soln 500 mg IV Q24H Qty: 36 0RF Rx Instructions: administer over 30 mins cephalexin 500 mg capsule 500 mg PO QID 7 Days Qty: 28 0RF (DME) lancets [FreeStyle Lancets] 28 gauge misc See Rx Instructions topical QID Qty: 100 Rx Instructions: As directed venlafaxine 75 mg capsule,extended release 24hr 75 mg PO DAILY hydroxyzine HCl 10 mg tablet 10 mg PO BID fluoxetine 20 mg capsule 20 mg PO DAILY doxycycline hyclate 100 mg capsule 100 mg PO BID 30 Days Qty: 60 1RF (DME) FreeStyle Pablo 2 Sensor Kit See Rx Instructions .ROUTE .MEDSUPPLY Qty: 1 Rx Instructions: As directed (DME) pen needle, diabetic [BD Ultra-Fine Short Pen Needle] 31 gauge x 5/16 needle See Rx Instructions subcut .MEDSUPPLY Qty: 1200 Rx Instructions: As directed mirtazapine 15 mg tablet 15 mg PO BEDTIME (DME) FreeStyle Pablo 2 [place] Misc See Rx Instructions .ROUTE .MEDSUPPLY Qty: 1 Rx Instructions: As directed Referrals: Joel Walsh MD [Primary Care Provider] -
[2022-04-03 11:35] LABS: MANUAL DIFF FLAG NO
[2022-04-03 11:37] LABS: Basophils Absolute Auto 0.1 X10*3/uL (0.0-0.2); Basophils Percent Auto 0.7 % (0-2); Eosinophils Absolute Auto 0.2 X10*3/uL (0.0-0.4); Hematocrit 37.9 % (42.0-52.0); Hemoglobin 13.3 g/dl (14.0-18.0); Imm Gran Abs Auto 0.05 X10*3/uL (0.00-0.03); Imm Gran Pct Auto 0.7 % (0.0-0.4); Lymphocytes Absolute Auto 2.8 X10*3/uL (1.2-4.9); Lymphocytes Percent Auto 37.2 % (20-40); Mean Corpuscular HGB Conc 35.1 g/dl (31.0-36.0); Mean Corpuscular Hemoglobin 32.5 pg (27.0-33.0); Mean Corpuscular Volume 92.7 fL (80.0-98.0); Mean Platelet Volume 10.6 fL (9.4-12.4); Monocytes Absolute Auto 0.7 X10*3/uL (0.1-1.2); Monocytes Percent Auto 9.4 % (2-11); Neutrophils Absolute Auto 3.7 x10*3/uL (2.0-8.3); Platelet Count 176 X10*3/uL (160-400); Red Blood Count 4.09 X10*6/uL (4.60-5.80); Red Cell Distribution Width 11.9 % (11.0-16.0); White Blood Count 7.4 X10*3/uL (4.8-10.8)
[2022-04-03 11:52] LABS: Lactic Acid 1.2 mmol/L (0.5-2.0)
[2022-04-03 11:58] LABS: Alanine Aminotransferase 23 U/L (0-40); Albumin Level 3.9 g/dL (3.5-5.0); Alkaline Phosphatase 90 U/L (39-117); Anion Gap 16 (12-20); Aspartate Amino Transferase 22 U/L (5-37); Bilirubin Total 0.5 mg/dL (0.0-1.0); Blood Urea Nitrogen 22 mg/dL (9-16); Carbon Dioxide 25 mmol/L (22-29); Chloride 102 mmol/L (96-108); Creatinine Clr Calc Pharmacy 98.3; Estimated Glomerular Filt Rate > 60; Glucose Random 141 mg/dL (60-115); Potassium 4.5 mmol/L (3.3-5.1); Sodium 138 mmol/L (135-145); Total Protein 6.7 g/dL (6.5-8.0)
[2022-04-03 13:11] LABS: Appearance Urine HAZY; Color Urine YELLOW; Glucose Urine UA NEG (NEG); Leukocyte Esterase Urine 3+ (NEG); Nitrite Urine POS (NEG); PH 5.5 (5.0-8.0); UACC Culture Trigger YES; Urine Blood TRACE (NEG); Urine Ketones NEG (NEG); Urine Protein NEG (NEG-TRACE)
[2022-04-03 13:25] LABS: Bacteria Urine TRACE /LPF; Mucus Urine 1+ /LPF; WBC Urine TNTC /HPF (0-4)
[2022-04-03] MEDS: Nitrofurantoin Monohyd/M-Cryst 100 MG CAPSULE PO (13:37)
== END 2022-04-03 16:41 | disposition home or self-care (01) ==
PROVIDERS: Emergency Provider Student in an Organized Health Care Education/Training Program; PCP Internal Medicine
DX: N39.0 Urinary tract infection, site not specified (principal); B96.1 Klebsiella pneumoniae [K. pneumoniae] as the cause of diseases classified elsewhere; M79.89 Other specified soft tissue disorders; Z89.512 Acquired absence of left leg below knee; Z89.511 Acquired absence of right leg below knee
CPT/HCPCS: 36415; 73590; 80053; 81001; 83605; 85025; 87040; 87086; 87088; 87186; 99283

== ENCOUNTER → 2022-04-21 10:54 | Outpatient (BNVA) | payer OTHER, SELFPAY | PROVIDERS: PCP Internal Medicine; Referring Provider Internal Medicine; Visit Provider Nurse Practitioner | DX: K59.00 Constipation, unspecified (principal); D12.6 Benign neoplasm of colon, unspecified; G47.30 Sleep apnea, unspecified; A49.02 Methicillin resistant Staphylococcus aureus infection, unspecified site; Z22.7 Latent tuberculosis | CPT/HCPCS: 99212 ==

== ENCOUNTER 2022-05-25 12:14 | Inpatient (IN) | payer OTHER, SELFPAY ==
[2022-05-25] VITALS (8 sets, daily range): BP systolic 102–166; BP diastolic 56–78; PULSE 74–124; RESP 13–22; TEMP 36.5–39.4; O2SAT 92–101; BMI 37.8
--- NOTE | ~2022-05-25 | XR_ITS ---
EXAMINATION: XR CHEST CLINICAL INFORMATION: Weakness COMPARISON: 12/17/2021 TECHNIQUE: Frontal view of the chest was obtained. FINDINGS: Cardiac leads overlie the chest. Lung volumes are low. No consolidation, edema, or effusion. No pneumothorax. The cardiomediastinal silhouette is unchanged. XR/XR chest 1V IMPRESSION: Low lung volumes with no acute pulmonary finding.
--- NOTE | 2022-05-25 12:32 | ECG_ITS ---
Test Reason : weakness Blood Pressure : / mmHG Vent. Rate : 115 BPM Atrial Rate : 115 BPM P-R Int : 196 ms QRS Dur : 076 ms QT Int : 310 ms P-R-T Axes : 034 -36 061 degrees QTc Int : 428 ms Sinus tachycardia Left axis deviation Abnormal ECG When compared with ECG of 26-SEP-2021 11:36, Vent. rate has increased BY 41 BPM Referred By: Martha Jones Electronically Signed By:JESSICA MONZON
--- OUTSIDE RECORDS SUMMARY | 2022-05-25 12:32 | XMS_ITS | Continuity of Care Document ---
:1960 Author Organization [facility] Address [address] [place] [id number] Care Team Providers Name Role Phone Keshawn CANO, Virginie Trinidad Primary Care Physician Encounter [facility] Date(s): 08/06/21 - 09/05/21 [facility] [address] [place] [id number]
--- NOTE | 2022-05-25 12:35 | ED_ITS ---
HPI - Weakness General Chief complaint: General Medical Stated complaint: CHILLS Time Seen by Provider: 05/25/22 12:20 Source: patient and old records reviewed Mode of arrival: EMS Limitations: no limitations History of Present Illness HPI Narrative: 62 yo male with hx of PVD, MRSA, bipolar disorder, prior osteomyelitis of L BKA area back in november - completed 6 weeks of daptomycin. Reports since waking today he felt chills, he cannot get warm. He is nauseated and vomited x 3. He denies sick contacts - he is vaccinated against COVID. He reports no rashes and does not it hurts to urinate. MD Complaint: generalized weakness (chills, nauseated) Onset (ago): hour(s) (upon waking this AM) Duration: constant Location: generalized Migration: none Severity: moderate Quality: crushing and dull Relieving factors: none Exacerbating factors: exertion Context: history of similar Associated symptoms: dysuria, fever/chills, loss of appetite and nausea/vomiting Related Data Home Medications Medication Instructions Recorded Confirmed aspirin 81 mg tablet,delayed 81 mg PO DAILY 07/17/20 05/25/22 release gabapentin 600 mg tablet 600 mg PO TID 07/17/20 05/25/22 liraglutide 0.6 mg/0.1 mL (18 mg/3 1.8 mg subcut DAILY 07/17/20 05/25/22 mL) subcutaneous pen injector (Victoza 3-Chet) metformin 1,000 mg tablet 1,000 mg PO BID 07/17/20 05/25/22 cholecalciferol (vitamin D3) 25 25 mcg PO DAILY 09/04/20 05/25/22 mcg (1,000 unit) tablet atorvastatin 40 mg tablet 40 mg PO DAILY 10/09/20 05/25/22 insulin degludec 100 unit/mL (3 30 unit subcut BID 12/23/20 05/25/22 mL) subcutaneous pen (Tresiba FlexTouch U-100 insulin) lancets 28 gauge (FreeStyle #100 ea 03/20/21 Lancets) albuterol sulfate 90 mcg/actuation 2 puff inhalation Q4-6H PRN 04/10/21 05/25/22 aerosol inhaler Shortness Of Breath apixaban 5 mg tablet (Eliquis) 1 tab PO BID 04/10/21 05/25/22 polyethylene glycol 3350 17 gram 17 g PO MOWEFR@0900 PRN 12/13/21 05/25/22 oral powder packet Constipation flash glucose sensor (FreeStyle #1 ea 01/01/22 Pablo 2 Sensor kit) pen needle, diabetic 31 gauge x #1,200 ea 01/01/2201/05 (BD Ultra-Fine Short Pen Needle) hydroxyzine HCl 10 mg tablet 10 mg PO BID PRN Anxiety 01/30/22 05/25/22 flash glucose scanning reader #1 ea 02/03/22 (FreeStyle Pablo 2 [place]) alcohol swabs (Alcohol Prep Pads) 1 pad topical QID 04/21/22 blood sugar diagnostic (FreeStyle #10 ea 04/21/22 Lite Strips) insulin aspart U-100 100 unit/mL 5 - 15 unit subcut TIDAC 04/21/22 05/25/22 (3 mL) subcutaneous pen (Novolog Flexpen U-100 Insulin aspart) lisinopril 10 mg tablet 10 mg PO DAILY 04/21/22 05/25/22 magnesium oxide 400 mg (241.3 mg 400 mg PO DAILY 04/21/22 05/25/22 magnesium) tablet venlafaxine 150 mg 150 mg PO DAILY 04/21/22 05/25/22 capsule,extended release 24 hr Previous Rx's Medication Instructions Recorded plecanatide 3 mg tablet (Trulance) 3 mg PO DAILY 30 days #30 tabs 04/21/22 Allergies Allergy/AdvReac Type Severity Reaction Status Date / Time vancomycin AdvReac Severe thrombocyto Verified 04/21/22 11:11 penia Review of Systems Review of Systems: Constitutional : No Weight loss, No Fever, pos Chills, pos malaise ENT/Mouth : No sore throat, No Rhinorrhea Eyes: No Swelling, No Redness Cardiovascular : No Chest Pain, No SOB, NoEdema Respiratory : pos Cough, No Sputum, No Wheezing Gastrointestinal : Positive Nausea, Positive Vomiting, no Diarrhea, no abdominal Pain, No Hematochezia, No Melena Genitourinary : pos Dysuria, No Urinary Frequency, No Hematuria, No Urgency Musculoskeletal : No joint pain, No Myalgias, No Joint Swelling Skin : No Skin Lesions, No rash Neuro : No Weakness, No Numbness, No Dizziness, No Headache Psych : No Anxiety/Panic, No Depression Heme/Lymph: No Bruising, No Lymphadenopathy Endocrine : No Polyuria, No Polydipsia All other systems reviewed and are negative. [facility] Past Medical History Attestation statement: The following information was validated with the patient. Medical History Abscess CIRILO (acute kidney injury) Amputated great toe of right foot Anxiety and depression Back pain Cellulitis COPD (chronic obstructive pulmonary disease) Diabetes Diabetic foot infection Drug-induced thrombocytopenia Hx MRSA infection Hyperlipidemia Hypertension Hyponatremia IDDM (insulin dependent diabetes mellitus) MGUS (monoclonal gammopathy of unknown significance) Neck pain Non-healing amputation site Obesity Peripheral neuropathy Psychiatric diagnosis PVD (peripheral vascular disease) Sleep apnea Surgical History H/O abdominoplasty H/O colonoscopy Hx of angioplasty Hx of appendectomy Hx of foot surgery Hx of tonsillectomy Hx of umbilical hernia repair S/P anal fissurectomy S/P BKA (below knee amputation) bilateral Status post below-knee amputation Family History Family History Other No history of heart disease Social History Social History Household Members: None Housing: House Do you presently have visiting nurse or other home services: Yes ([facility]) Alcohol intake: never Patient Tobacco Use Status: Former Tobacco user Quit Date: 30 YEARS AGO Tobacco use type: Cigarette Second Hand Smoke Exposure: No Advance Directives: Yes Advance Directives on File: Yes Advance Directives Date on File: 09/27/20 service: Yes Current occupational status: disabled Physical Exam Vital Signs: Vital Signs: Last Vital Signs Temp 101 F H 05/25/22 14:35 Pulse 94 05/25/22 14:35 Resp 18 05/25/22 14:35 BP 107/56 L 05/25/22 14:35 Pulse Ox 101 H 05/25/22 14:35 O2 Del Method 05/25/22 14:35 BMI result Body Mass Index 37.8 Appearance: Alert. Oriented X3. No acute distress. Eyes: Pupils equal, round and reactive to light. ENT: Pharynx normal. Neck: Normal inspection. Neck supple. CVS:tachycardic heart rate and rhythm. Pulses normal. Respiratory: No respiratory distress. Breath sounds normal. Abdomen: Soft and nontender. Skin: Skin warm and dry. Normal skin color. Normal skin turgor. Extremities: No lower extremity edema. No calf ttp amputation sites look good no redness or swelling Neuro: Oriented X 3. No motor deficit. No sensory deficit. Course Course Course Narrative: also c/o L shoulder pain for months can range shoulder no redness or warmth to suggest septic joint - lidocaine patch ordered refusing straight cath, UA pending - will need admission MDM - Weakness MDM Narrative Medical decision making narrative: 62 yo male with hx of PVD, MRSA, bipolar disorder, prior osteomyelitis of L BKA area back in november here with n/v chills and not feeling well at this time will need labs, cultures, lactic acid, CXR, UA - empiric cefepime. PO tylenol and IVF. Dispo per results and findings. Lab Data Result diagrams: 05/25/22 13:09 05/25/22 13:09 Labs: Lab Results 05/25/22 05/25/22 05/25/22 Range/Units 13:07 13:08 13:09 WBC 7.8 (4.8-10.8) X10*3/uL RBC 3.89 L (4.60-5.80) X10*6/uL Hgb 13.0 L (14.0-18.0) g/dl Hct 35.7 L (42.0-52.0) % MCV 91.8 (80.0-98.0) fL MCH 33.4 H (27.0-33.0) pg MCHC 36.4 H (31.0-36.0) g/dl RDW 12.1 (11.0-16.0) % Plt Count 142 L (160-400) X10*3/uL MPV 10.9 (9.4-12.4) fL Immature Gran % (Auto) 0.4 (0.0-0.4) % Neut % (Auto) 88.7 H (45-73) % Lymph % (Auto) 4.0 L (20-40) % [place] % (Auto) 5.9 (2-11) % Eos % (Auto) 0.5 (0-4) % Baso % (Auto) 0.5 (0-2) % Lymph # (Auto) 0.3 L (1.2-4.9) X10*3/uL [place] # (Auto) 0.5 (0.1-1.2) X10*3/uL Eos # (Auto) 0.0 (0.0-0.4) X10*3/uL Baso # (Auto) 0.0 (0.0-0.2) X10*3/uL Abs Immat Gran (auto) 0.03 (0.00-0.03) X10*3/uL Absolute Neuts (auto) 6.9 (2.0-8.3) x10*3/uL Absolute Nucleated RBC 0.000 (0.0-0.012) X10*3/uL Nucleated RBC % (auto) 0.0 (0.0-0.2) /100WBC PT (10.0-13.1) SEC INR (0.9-1.1) APTT (26.0-36.4) SEC Sodium (135-145) mmol/L Potassium (3.3-5.1) mmol/L Chloride (96-108) mmol/L Carbon Dioxide (22-29) mmol/L Anion Gap (12-20) BUN (9-16) mg/dL Creatinine (0.5-1.4) mg/dL Estim Creat Clear Calc Estimated GFR Random Glucose (60-115) mg/dL Lactic Acid 2.2 H* (0.5-2.0) mmol/L Calcium (8.4-10.2) mg/dL Magnesium (1.6-2.6) mg/dL Total Bilirubin (0.0-1.0) mg/dL Direct Bilirubin (0.0-0.5) mg/dL AST (5-37) U/L ALT (0-40) U/L Alkaline Phosphatase (39-117) U/L Troponin I High Sens (<3.5-35.0) ng/L Total Protein (6.5-8.0) g/dL Albumin (3.5-5.0) g/dL Lipase (8-78) U/L COVID-19 (JOSE) Negative (Negative) COVID-19 Clin Com See Note 05/25/22 05/25/22 05/25/22 Range/Units 13:09 13:09 13:10 WBC (4.8-10.8) X10*3/uL RBC (4.60-5.80) X10*6/uL Hgb (14.0-18.0) g/dl Hct (42.0-52.0) % MCV (80.0-98.0) fL MCH (27.0-33.0) pg MCHC (31.0-36.0) g/dl RDW (11.0-16.0) % Plt Count (160-400) X10*3/uL MPV (9.4-12.4) fL Immature Gran % (Auto) (0.0-0.4) % Neut % (Auto) (45-73) % Lymph % (Auto) (20-40) % [place] % (Auto) (2-11) % Eos % (Auto) (0-4) % Baso % (Auto) (0-2) % Lymph # (Auto) (1.2-4.9) X10*3/uL [place] # (Auto) (0.1-1.2) X10*3/uL Eos # (Auto) (0.0-0.4) X10*3/uL Baso # (Auto) (0.0-0.2) X10*3/uL Abs Immat Gran (auto) (0.00-0.03) X10*3/uL Absolute Neuts (auto) (2.0-8.3) x10*3/uL Absolute Nucleated RBC (0.0-0.012) X10*3/uL Nucleated RBC % (auto) (0.0-0.2) /100WBC PT 12.5 (10.0-13.1) SEC INR 1.1 (0.9-1.1) APTT 28.0 (26.0-36.4) SEC Sodium 137 (135-145) mmol/L Potassium 4.1 (3.3-5.1) mmol/L Chloride 104 (96-108) mmol/L Carbon Dioxide 21 L (22-29) mmol/L Anion Gap 16 (12-20) BUN 29 H (9-16) mg/dL Creatinine 1.16 (0.5-1.4) mg/dL Estim Creat Clear Calc 89.5 Estimated GFR > 60 Random Glucose 289 H D (60-115) mg/dL Lactic Acid (0.5-2.0) mmol/L Calcium 8.6 (8.4-10.2) mg/dL Magnesium 1.4 L* (1.6-2.6) mg/dL Total Bilirubin 1.2 H (0.0-1.0) mg/dL Direct Bilirubin 0.6 H (0.0-0.5) mg/dL AST 23 (5-37) U/L ALT 33 (0-40) U/L Alkaline Phosphatase 82 (39-117) U/L Troponin I High Sens 6.5 D (<3.5-35.0) ng/L Total Protein 6.6 (6.5-8.0) g/dL Albumin 3.9 (3.5-5.0) g/dL Lipase 16 (8-78) U/L COVID-19 (JOSE) (Negative) COVID-19 Clin Com ECG Data Attestation: I personally reviewed and interpreted this ECG as follows: ECG interpretation date: 05/25/22 ECG interpretation time: 13:02 Interpretation: Rate:115 Rhythm: sinus tach Hanna: left Normal P waves. Normal GOMEZ. Normal QRS complex. ST T wave : no RUBY, nonspecific qTC: normal prior studies: no acute ischemia The study has been interpreted contemporaneously by me. . Discharge Plan Discharge Clinical Impression: Fever, Vomiting, Acidosis, lactic, Hypomagnesemia Patient Disposition: Admitted As Inpatient Prescriptions: No Action atorvastatin 40 mg tablet 40 mg PO DAILY Hold Instructions: Resume on 01/24/22. Eliquis 5 mg tablet 1 tab PO BID albuterol sulfate 90 mcg/actuation Hfa Aerosol Inhaler 2 puff INHALATION Q4-6H PRN (Reason: Shortness Of Breath) gabapentin 600 mg tablet 600 mg PO TID aspirin 81 mg tablet,delayed release (DR/EC) 81 mg PO DAILY metformin 1,000 mg tablet 1,000 mg PO BID Victoza 3-Chet 0.6 mg/0.1 mL (18 mg/3 mL) pen injector 1.8 mg subcut DAILY cholecalciferol (vitamin D3) 25 mcg (1,000 unit) tablet 25 mcg PO DAILY Tresiba FlexTouch U-100 100 unit/mL (3 mL) insulin pen 30 unit subcut BID magnesium oxide 400 mg (241.3 mg magnesium) tablet 400 mg PO DAILY polyethylene glycol 3350 17 gram powder in packet 17 g PO MOWEFR@0900 PRN (Reason: Constipation) insulin aspart U-100 [Novolog Flexpen U-100 Insulin] 100 unit/mL (3 mL) insulin pen 5 - 15 unit subcut TIDAC Rx Instructions: Per sliding scale (DME) lancets [FreeStyle Lancets] 28 gauge misc See Rx Instructions topical QID Qty: 100 Rx Instructions: As directed hydroxyzine HCl 10 mg tablet 10 mg PO BID PRN (Reason: Anxiety) lisinopril 10 mg tablet 10 mg PO DAILY (DME) FreeStyle Lite Strips Strip See Rx Instructions .ROUTE QID Qty: 10 Rx Instructions: As directed alcohol swabs [Alcohol Prep Pads] Pads, Medicated 1 pad topical QID venlafaxine 150 mg capsule,extended release 24hr 150 mg PO DAILY Trulance 3 mg tablet 3 mg PO DAILY 30 Days Qty: 30 6RF (DME) FreeStyle Pablo 2 Sensor Kit See Rx Instructions .ROUTE .MEDSUPPLY Qty: 1 Rx Instructions: As directed (DME) pen needle, diabetic [BD Ultra-Fine Short Pen Needle] 31 gauge x 5/16 needle See Rx Instructions subcut .MEDSUPPLY Qty: 1200 Rx Instructions: As directed (DME) FreeStyle Pablo 2 [place] Misc See Rx Instructions .ROUTE .MEDSUPPLY Qty: 1 Rx Instructions: As directed
[2022-05-25] MEDS: 0.9 % Sodium Chloride 1,000 ML 999 ML IVCONT (13:15)
[2022-05-25 13:16] LABS: MANUAL DIFF FLAG NO
[2022-05-25 13:18] LABS: Basophils Percent Auto 0.5 % (0-2); Eosinophils Percent Auto 0.5 % (0-4); Hematocrit 35.7 % (42.0-52.0); Imm Gran Abs Auto 0.03 X10*3/uL (0.00-0.03); Imm Gran Pct Auto 0.4 % (0.0-0.4); Lymphocytes Absolute Auto 0.3 X10*3/uL (1.2-4.9); Mean Corpuscular HGB Conc 36.4 g/dl (31.0-36.0); Mean Corpuscular Hemoglobin 33.4 pg (27.0-33.0); Mean Corpuscular Volume 91.8 fL (80.0-98.0); Mean Platelet Volume 10.9 fL (9.4-12.4); Monocytes Absolute Auto 0.5 X10*3/uL (0.1-1.2); Monocytes Percent Auto 5.9 % (2-11); Neutrophils Absolute Auto 6.9 x10*3/uL (2.0-8.3); Neutrophils Percent Auto 88.7 % (45-73); Platelet Count 142 X10*3/uL (160-400); Red Blood Count 3.89 X10*6/uL (4.60-5.80); Red Cell Distribution Width 12.1 % (11.0-16.0); White Blood Count 7.8 X10*3/uL (4.8-10.8)
[2022-05-25] MEDS: Acetaminophen 325 MG TABLET 650 MG PO (13:24)
[2022-05-25] MEDS: ondansetron HCL 4 MG/2 ML VIAL IVPUSH (13:24)
[2022-05-25] MEDS: cefEPime HCl 2 GM in 0.9 % Sodium Chloride 50 ML IV (13:25)
[2022-05-25 13:26] LABS: INTERNATIONAL NORM RATIO 1.1 (0.9-1.1); Prothrombin Time 12.5 SEC (10.0-13.1)
[2022-05-25 13:32] LABS: COVID-19 Test Negative (Negative)
[2022-05-25 13:41] LABS: Troponin-I High Sensitivity 6.5 ng/L (<3.5-35.0)
[2022-05-25 13:43] LABS: Alanine Aminotransferase 33 U/L (0-40); Albumin Level 3.9 g/dL (3.5-5.0); Alkaline Phosphatase 82 U/L (39-117); Anion Gap 16 (12-20); Aspartate Amino Transferase 23 U/L (5-37); Bilirubin Direct 0.6 mg/dL (0.0-0.5); Bilirubin Total 1.2 mg/dL (0.0-1.0); Blood Urea Nitrogen 29 mg/dL (9-16); Calcium 8.6 mg/dL (8.4-10.2); Carbon Dioxide 21 mmol/L (22-29); Chloride 104 mmol/L (96-108); Creatinine Clr Calc Pharmacy 89.5; Estimated Glomerular Filt Rate > 60; Glucose Random 289 mg/dL (60-115); Lipase 16 U/L (8-78); Magnesium 1.4 mg/dL (1.6-2.6); Potassium 4.1 mmol/L (3.3-5.1); Sodium 137 mmol/L (135-145); Total Protein 6.6 g/dL (6.5-8.0)
[2022-05-25 13:43] LABS: Lactic Acid 2.2 mmol/L (0.5-2.0)
[2022-05-25] MEDS: Lidocaine 4 % Patch ADH..PATCH 1 PATCH TRANSDERMA (14:36)
[2022-05-25] MEDS: Magnesium Sulfate/H2O 2 GM/50 ML PIGGYBACK IV (14:36)
[2022-05-25 15:14] LABS: Reflex Lactate? Lactic Acid Added
--- NOTE | 2022-05-25 15:19 | PHA.MEDREC ---
Pharmacy Consult ? Medication Reconciliation Pharmacy has completed the medication reconciliation. Spoke with pt. His sliding scale is TIDAC and uses between 5-15 units depending on the blood sugar
--- NOTE | 2022-05-25 15:52 | P.HPHOSP_ITS ---
History of Present Illness Date of Service: 05/25/22 Chief Complaint: chills 62M with past medical history of diabetes type 2, peripheral vascular disease status post bilateral BKA, peripheral neuropathy, MGUS, morbid obesity, KASSANDRA, mood disorder, hypertension, pulmonary embolism presented with 1 day of chills. Patient reports that he was feeling well on morning prior to presentation. Then in the evening started to feel cold and chills. He went to sleep and in the night started to have chills again. He denies any shortness of breath, chest pain, abdominal pain, diarrhea. He does note urinary frequency without dysuria, with poor emptying and difficulty starting stream. In ED patient noted to have sepsis with fever, tachycardia. Chest x-ray unremarkable, urine pending. Review of Systems Review of Systems: Constitutional:Chills Eyes: denies blurry vision ENT: denies sore throat CVS: denies chest pain Respiratory: Denies dyspnea GI: no abdominal pain : denies dysuria MSK: denies neck pain Skin: denies rash Neuro: denies specific motor weakness Psych: denies suicidal ideation Endocrine: denies heat/cold intolerance Hematologic: denies easy bleeding Allergy: denies hives [facility] Medical History Abscess CIRILO (acute kidney injury) Amputated great toe of right foot Anxiety and depression Back pain Cellulitis COPD (chronic obstructive pulmonary disease) Diabetes Diabetic foot infection Drug-induced thrombocytopenia Hx MRSA infection Hyperlipidemia Hypertension Hyponatremia IDDM (insulin dependent diabetes mellitus) MGUS (monoclonal gammopathy of unknown significance) Neck pain Non-healing amputation site Obesity Peripheral neuropathy Psychiatric diagnosis PVD (peripheral vascular disease) Sleep apnea Family History Other No history of heart disease Surgical History H/O abdominoplasty H/O colonoscopy Hx of angioplasty Hx of appendectomy Hx of foot surgery Hx of tonsillectomy Hx of umbilical hernia repair S/P anal fissurectomy S/P BKA (below knee amputation) bilateral Status post below-knee amputation Social History Household Members: None Housing: House Do you presently have visiting nurse or other home services: Yes ([facility]) Alcohol intake: never Patient Tobacco Use Status: Former Tobacco user Quit Date: 30 YEARS AGO Tobacco use type: Cigarette Second Hand Smoke Exposure: No Advance Directives: Yes Advance Directives on File: Yes Advance Directives Date on File: 09/27/20 service: Yes Current occupational status: disabled Meds Allergies Allergy/AdvReac Type Severity Reaction Status Date / Time vancomycin AdvReac Severe thrombocyto Verified 04/21/22 11:11 penia Active Medications: Current Medications Acetaminophen (Acetaminophen 325 Mg Tablet) 650 mg PO Q6H PRN PRN Reason: Pain, Mild (Pain Scale 1-3) Albuterol/Ipratropium (Albuterol/Iprat 2.5/0.5mg 3 Ml Ampul.Neb) 3 ml INHALE RQ4H PRN PRN Reason: sob Apixaban (Apixaban 5 Mg Tablet) 5 mg PO BID [facility] Aspirin (Aspirin Enteric Coated 81 Mg Tablet.) 81 mg PO DAILY [facility] Atorvastatin Calcium (Atorvastatin Calcium 40 Mg Tablet) 40 mg PO DAILY [facility] Dextrose (Dextrose 50 % 25 Gm/50 Ml Syringe) 25 gm IVPUSH Q15M PRN; Protocol PRN Reason: per Hypoglycemia Standing Ord. Gabapentin (Gabapentin 600 Mg Tablet) 600 mg PO TID [facility] Glucose (Glucose Gel 15 Gm Gel..Gram.) 15 gm PO Q15M PRN; Protocol PRN Reason: per Hypoglycemia Standing Ord. Hydroxyzine HCl (Hydroxyzine Hcl 10 Mg Tablet) 10 mg PO BID PRN PRN Reason: Anxiety Sodium Chloride (Ns) 1,000 mls @ 999 mls/hr IV .Q1H1M [facility] Stop: 05/25/22 16:30 Ceftriaxone Sodium 1 gm/ (Sodium Chloride) 50 mls @ 100 mls/hr IV Q24H [facility] Insulin Glargine (Insulin Glargine,Hum.Rec.Anlog 100 Unit/Ml 10 Ml Vial) 15 unit SUBCUT BEDTIME [facility] Insulin Human Lispro (Insulin Lispro 100 Unit/Ml 3 Ml Vial) 0 unit SUBCUT QIDACHS [facility]; Protocol Lisinopril (Lisinopril 10 Mg Tablet) 10 mg PO DAILY [facility]; Protocol Magnesium Oxide (Magnesium Oxide 400 Mg Tablet) 400 mg PO BIDPC [facility] Pharmacy Consult (Consult Rx Perform Med Rec) 1 each MISCELLANE ONCE PRN PRN Reason: Consult order Sodium Chloride (0.9 % Sodium Chloride Flush 3 Ml Syringe) 3 ml IVFLUSH QSHIFT [facility] Venlafaxine HCl (Venlafaxine Hcl Er 150 Mg Cap.Er.24h) 150 mg PO DAILY [facility] Vitamin D (Cholecalciferol (Vitamin D3) 25 Mcg Tablet) 25 mcg PO DAILY [facility] Home Medications Medication Instructions Recorded Confirmed Last Taken Type aspirin 81 mg tablet,delayed 81 mg PO DAILY 07/17/20 05/25/22 05/24/22 History release gabapentin 600 mg tablet 600 mg PO TID 07/17/20 05/25/22 05/24/22 History liraglutide 0.6 mg/0.1 mL (18 mg/3 1.8 mg subcut DAILY 07/17/20 05/25/22 05/24/22 History mL) subcutaneous pen injector (YouNoodletoza 3-Chet) metformin 1,000 mg tablet 1,000 mg PO BID 07/17/20 05/25/22 05/24/22 History cholecalciferol (vitamin D3) 25 25 mcg PO DAILY 09/04/20 05/25/22 05/24/22 History mcg (1,000 unit) tablet atorvastatin 40 mg tablet 40 mg PO DAILY 10/09/20 05/25/22 05/24/22 History insulin degludec 100 unit/mL (3 30 unit subcut BID 12/23/20 05/25/22 05/24/22 History mL) subcutaneous pen (Tresiba FlexTouch U-100 insulin) lancets 28 gauge (FreeStyle #100 ea 03/20/21 05/24/22 History Lancets) albuterol sulfate 90 mcg/actuation 2 puff inhalation Q4-6H PRN 04/10/21 05/25/22 05/24/22 History aerosol inhaler Shortness Of Breath apixaban 5 mg tablet (Eliquis) 1 tab PO BID 04/10/21 05/25/22 05/24/22 History polyethylene glycol 3350 17 gram 17 g PO MOWEFR@0900 PRN 12/13/21 05/25/22 05/24/22 History oral powder packet Constipation flash glucose sensor (FreeStyle #1 ea 01/01/22 05/24/22 History Pablo 2 Sensor kit) pen needle, diabetic 31 gauge x #1,200 ea 01/01/22 05/24/22 History 5/16 (BD Ultra-Fine Short Pen Needle) hydroxyzine HCl 10 mg tablet 10 mg PO BID PRN Anxiety 01/30/22 05/25/22 05/24/22 History flash glucose scanning reader #1 ea 02/03/22 05/24/22 History (FreeStyle Pablo 2 [place]) alcohol swabs (Alcohol Prep Pads) 1 pad topical QID 04/21/22 05/24/22 History blood sugar diagnostic (FreeStyle #10 ea 04/21/22 05/24/22 History Lite Strips) insulin aspart U-100 100 unit/mL 5 - 15 unit subcut TIDAC 04/21/22 05/25/22 05/24/22 History (3 mL) subcutaneous pen (Novolog Flexpen U-100 Insulin aspart) lisinopril 10 mg tablet 10 mg PO DAILY 04/21/22 05/25/22 05/24/22 History magnesium oxide 400 mg (241.3 mg 400 mg PO DAILY 04/21/22 05/25/22 05/24/22 History magnesium) tablet venlafaxine 150 mg 150 mg PO DAILY 04/21/22 05/25/22 05/24/22 History capsule,extended release 24 hr Physical Exam Vital Signs and Narrative: Vital Signs: Last Vital Signs Temp 101 F H 05/25/22 14:35 Pulse 94 05/25/22 14:35 Resp 18 05/25/22 14:35 BP 107/56 L 05/25/22 14:35 Pulse Ox 101 H 05/25/22 14:35 O2 Del Method 05/25/22 14:35 BMI result Body Mass Index 37.8 General: no acute distress HEENT: atraumatic Neck: normal to visual inspection CVS: S1, S2, RRR Resp: CTA bilateral Chest: non tender GI: soft, non tender, non distended : no CVA tenderness Skin: no rashes Extremities: bilateral bka Neuro: Oriented X3, grossly intact Psych: cooperative Results Labs CBC and Chem 7: 05/25/22 13:09 05/25/22 13:09 Labs: Laboratory Results - last 24 hr 05/25/22 05/25/22 05/25/22 13:07 13:08 13:09 MCV 91.8 MCH 33.4 H MCHC 36.4 H RDW 12.1 Plt Count 142 L MPV 10.9 Immature Gran % (Auto) 0.4 Neut % (Auto) 88.7 H Lymph % (Auto) 4.0 L [place] % (Auto) 5.9 Eos % (Auto) 0.5 Baso % (Auto) 0.5 Lymph # (Auto) 0.3 L [place] # (Auto) 0.5 Eos # (Auto) 0.0 Baso # (Auto) 0.0 Abs Immat Gran (auto) 0.03 Absolute Neuts (auto) 6.9 Absolute Nucleated RBC 0.000 Nucleated RBC % (auto) 0.0 PT INR APTT Anion Gap Estim Creat Clear Calc Estimated GFR Random Glucose Lactic Acid 2.2 H* Calcium Magnesium Total Bilirubin Direct Bilirubin AST ALT Alkaline Phosphatase Troponin I High Sens Total Protein Albumin Lipase COVID-19 (JOSE) Negative COVID-19 Clin Com See Note 05/25/22 05/25/22 05/25/22 13:09 13:09 13:10 MCV MCH MCHC RDW Plt Count MPV Immature Gran % (Auto) Neut % (Auto) Lymph % (Auto) [place] % (Auto) Eos % (Auto) Baso % (Auto) Lymph # (Auto) [place] # (Auto) Eos # (Auto) Baso # (Auto) Abs Immat Gran (auto) Absolute Neuts (auto) Absolute Nucleated RBC Nucleated RBC % (auto) PT 12.5 INR 1.1 APTT 28.0 Anion Gap 16 Estim Creat Clear Calc 89.5 Estimated GFR > 60 Random Glucose 289 H D Lactic Acid Calcium 8.6 Magnesium 1.4 L* Total Bilirubin 1.2 H Direct Bilirubin 0.6 H AST 23 ALT 33 Alkaline Phosphatase 82 Troponin I High Sens 6.5 D Total Protein 6.6 Albumin 3.9 Lipase 16 COVID-19 (JOSE) COVID-19 Clin Com Imaging Radiologist's Impressions: Impressions Chest X-Ray 05/25/22 13:33 IMPRESSION: Low lung volumes with no acute pulmonary finding. Assessment and Plan (1) Fever: Qualifiers: Fever type: unspecified Qualified Code(s): R50.9 - Fever, unspecified Status: Acute Plan 62M with past medical history of diabetes type 2, peripheral vascular disease status post bilateral BKA, peripheral neuropathy, MGUS, morbid obesity, KASSANDRA, mood disorder, hypertension, pulmonary embolism, copd, presented with chills Severe sepsis present on admission Source likely UTI Follow-up urine and blood cultures IV ceftriaxone Diabetes Basal bolus insulin Monitor point of cares Hold orals COPD Stable, inhalers as needed Peripheral vascular disease Aspirin, Eliquis, statin History of pulmonary embolism Eliquis Morbid obesity complicated by obstructive sleep apnea Weight loss workup BiPAP at night Mood disorder Venlafaxine Peripheral neuropathy Gabapentin Full code Patient presenting with severe sepsis at risk for further decompensation due to risk factors of diabetes, obesity, peripheral vascular disease, therefore expected to require at least 2 midnights in the hospital. Quality Stroke Does the patient have a stroke diagnosis?: No VTE Prior VTE?: Yes VTE Risk Level:: Medical - moderate - high VTE Device Contraindication: Treatment Not Indicated VTE Drug Contraindication: N/A - Med Ordered
[2022-05-25] MEDS: 0.9 % Sodium Chloride 1,000 ML 999 ML IV (15:58)
[2022-05-25 16:04] LABS: Appearance Urine Cloudy; Color Urine Yellow; Glucose Urine UA 500 mg/dL (Negative); Leukocyte Esterase Urine Large (3+) (Negative); Nitrite Urine Positive (Negative); Specific Gravity - Urine 1.025 (1.005-1.025); UMIC TRIGGER UACC YES; Urine Blood Trace (Negative); Urine Ketones Trace mg/dL (Negative); Urine Protein 30 (1+) mg/dL (Neg-Trace)
--- OUTSIDE RECORDS SUMMARY | 2022-05-25 16:06 | XMS_ITS | Continuity of Care Document ---
:1960 Author Organization [facility] Care Team Providers Name Role Phone DOD-SC Unavailable Unavailable Problems Combined list of problems from Department of Defense and Veterans Affairs facilities. It does not include entries that were removed or entered in error. 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 Hyperlipidemia Active Condition [place] (SNOMED CT 60541473) Hypertension (SNOMED Active Condition [place] 48880337) INGROWING NAIL Active Condition [place] Lack of Housing Active Condition [facility] [place] (ICD-9-CM V60.0) D C BOC latent TB Active Condition [place] (CBOC) Low Back Pain, Active Condition [place] Lumbago LUMBAGO Active Condition [place] Male Erectile Active Condition [facility] Disorder due to a General Medical Condition Morbid obesity Active Condition [facility] [place] [facility] MYOPIA Active Condition [place] NEUROTIC DEPRESSION Active Condition [place] Noncompliance with Active Condition V A [facility] therapeutic regimen [facility] [place] [facility] OBESITY, UNSP Active Condition [place] ONYCHIA OF TOE Active Condition [place] OSTEOARTHROS Active Condition [place] NOS-UNSPEC OTHER AND UNSPEC. 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 (ICD-9-CM [place] 304.63) HCS OTITIS MEDIA NOS Active Condition [facility] Personal History of Active Condition Sep 20, [facility] Colonic Polyps 2009 [facility] Entered [place] By: [facility] Manas TANG Comment: negative colo 2006 Personality Disorder Active Condition [facility] NOS [facility] [place] [facility] RECURR DEPR Active Condition [place] DISORDER-UNSP Sleep apnea (SNOMED Active [place] 57253653) (CBOC) Unemployment * Active Condition [facility] [place] [facility] 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 [facility] [place] [facility] Diagnosis: ICD-10-CM Active Diagnosis [facility] E11.9 Type 2 [facility] diabetes mellitus [place] without HCS complicationswith Provider Comments: DM Type 2 w/o Complications Diagnosis: ICD-10-CM Active Diagnosis [facility] Z86.711 Personal WST RN history of pulmonary [place] embolismwith [facility] Provider Comments: H/O: pulmonary embolus ([facility] [id number]) Diagnosis: ICD-10-CM Active Diagnosis [facility] Z47.81 Encounter for [facility] orthopedic aftercare [place] following surgical H CS ampwith Provider Comments: 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 ([facility] [id number]) Diagnosis: ICD-10-CM Active Diagnosis [facility] H52.7 Unspecified [place] [facility] disorder of [place] refractionwith [facility] Provider Comments: Unspecified Disorder of Refraction Diagnosis: ICD-10-CM Active Diagnosis [facility] Z71.89 Other [facility] specified [place] counselingwith [facility] Provider Comments: Other specified counseling Diagnosis: ICD-10-CM Active Diagnosis [facility] E11.9 Type 2 [facility] diabetes mellitus [place] without HCS complicationswith Provider Comments: Type 2 Diabetes Mellitus without Complications Diagnosis: ICD-10-CM Active Diagnosis [facility] R26.9 Unspecified [facility] TRN abnormalities of [place] gait and HCS mobilitywith Provider Comments: Unspecified Abnormalities of Gait and Mobility Medications Combined list of outpatient medications from Department of Defense and Veterans Affairs facilities. Medications provided include 1) outpatient medications from the last 15 months, and 2) patient-reported medications. Medication Details Route Status Patient Prescription Prescription Last Ordering Order Source Instructions Expires Number Dispense Provider Date Date ALBUTEROL/I INHALE 2 INHALA ACTIVE VANWAGNER 04/12 PRATROPIUM PUFFS BY TIBRAIN ,2019 CNT RL (RESPIMAT) MOUTH ORAL F [facility] INHL,ORAL EVERY 6 [place] HOURS SETS NEEDED HCS ASPIRIN TAKE ONE ORAL ACTIVE REMY,AL [facility] 81MG TAB,EC TABLET ICE 2016 CNTRL BY MOUTH [facility] DAILY [place] [facility] HCS ATORVASTATI TAKE ORAL ACTIVE CAT,RA 11/05/ VA N CA 80MG ONE-HALF IMONDA 2021 CNTRL TAB TABLET DELILAH W[facility] BY MOUTH [place] ONCE SETS DAILY HCS BUPROPION TAKE ONE ORAL ACTIVE VANWAGNER A HCL 150MG TABLET ,2019 CNTRL 12HR TAB,SA BY MOUTH F [facility] TWICE [place] DAILY SETS HCS CARBOXYMETH INSTILL EACH 03/19/2022 [id number] MERHA R,NO YLCELLULOSE 1 DROP EYE 1 AH B 2020 CNTRL NA 0.5% INTO W[facility] SOLN,OPH EACH EYE [place] FOUR SETS TIMES HCS DAILY NEEDED CHOLECALCIF TAKE ONE ORAL ACTIVE VANWAGNER ALFREDA 25MCG TABLET ,2019 CNTRL (1,000UNIT) BY MOUTH F [facility] TAB ONCE [place] DAILY SETS HCS CLOPIDOGREL TAKE ONE ORAL ACTIVE VANWAGNER BISULFATE TABLET ,2019 CNTRL 75MG TAB BY MOUTH F [facility] ONCE [place] DAILY SETS HCS ESCITALOPRA TAKE ONE ORAL ACTIVE VANWAGNER M OXALATE TABLET ,2019 CNTRL 20MG TAB BY MOUTH F [place] ONCE [place] DAILY SETS HCS GABAPENTIN TAKE 2 ORAL ACTIVE VANWAGNER 300MG CAP CAPSULES ,2019 CNTR L BY MOUTH F [facility] ONCE [place] DAILY SETS HCS INSULIN,DEG INJECT SUBCUT ACTIVE VANWAGNER LUDEC(TRESI 80 UNITS ANE ,2019 C NTRL BA 200 SUBCUTAN F WSTRN UNIT)*PA-F* EOUSLY [place] INJ TWICE SETS DAILY HCS LAMOTRIGINE TAKE ONE ORAL ACTIVE VANWAGNER VA 100MG TAB TABLET ,2019 CNTRL BY MOUTH F [place] ONCE [place] DAILY SETS HCS LIFITEGRAST INSTILL EACH ACTIVE 04/10/2023 [id number] OSHINS TANMAY 5% 1 DROP EYE 2 ,MATHEW 2021 CNTRL SOLN,OPH,0. INTO J [facility] 2ML EACH EYE [place] TWICE SETS DAILY HCS LIRAGLUTIDE INJECT SUBCUT ACTIVE REMY,AL VA (VICTOZA) 1.8MG ANEOUS 2016 CNTRL 6MG/ML SUBCUTAN WSTRN INJ,SOLN,PE EOUSLY [place] N,3ML ONCE SETS DAILY HCS LISINOPRIL TAKE ONE ORAL ACTIVE VANWAGNER 5MG TAB TABLET ,2019 CNTRL BY MOUTH F [facility] ONCE [place] DAILY SETS HCS METFORMIN TAKE ONE ORAL ACTIVE VANWAGNER A HCL 1000MG TABLET ,2019 CNTRL TAB BY MOUTH F [facility] TWICE [place] DAILY SETS HCS POLYETHYLEN TAKE 17 ORAL ACTIVE VANWAGNER VA E GLYCOL GRAMS (1 ,2019 CNTRL 3350 CAPFUL) F WSTR[facility] PWDR,ORAL BY MOUTH [place] ONCE SETS DAILY HCS NEEDED VARDENAFIL TAKE ONE ORAL ACTIVE VANWAGNER HCL 20MG TABLET ,2019 CNTRL TAB BY MOUTH F [facility] ONCE [place] DAILY SETS NEEDED HCS Allergies, Adverse Reactions, Alerts Combined list of allergies from Department of Defense and Veterans Affairs facilities. It does not include entries that were removed or entered in error. Substance Category Reaction Severity Reaction Status Date Comments S ource type Reported VANCOMYCIN Propensity Propensity active [facility] to adverse to adverse 2 [facility] TRN reactions reactions [place] to drug to drug TS HCS (finding) (finding) Immunizations Combined list of available immunizations from the Department of Defense and Veterans Affairs facilities. 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 Cleaner COVID-19 3 complet VA (PFIZER), 2021 ed CNTR L MRNA, LNP-S, [place] [facility] PF, 30 [place] MCG/0.3 ML SET S DOSE HCS HEP A-HEP B 3 complet [facility] 2021 ed CNTRL [facility] [facility] HCS COVID-19 3 complet VA (PFIZER), 2021 ed CNTR L MRNA, LNP-S, [facility] PF, 30 [place] MCG/0.3 ML SET S DOSE, HCS CIRO-SUCROSE (AGES 12+ YEARS) COVID-19 2 complet VA (PFIZER), 2020 ed CNTR L MRNA, LNP-S, W [facility] PF, 30 [place] MCG/0.3 ML SET S DOSE HCS COVID-19 1 complet VA (PFIZER), 2020 ed CNTR L MRNA, LNP-S, W [facility]N PF, 30 [place] MCG/0.3 ML SET S DOSE HCS HEP A-HEP B 2 06/11/ NONE 104 complet VA 2019 ed CNTRL [facility] [place] [facility] HCS INFLUENZA, complet VA INJECTABLE, 2019 ed CN TRL QUADRIVALENT, W[facility]N PRESERVATIVE [place] FREE SETS HCS HEP A-HEP B 1 11/02/ NONE 104 complet sylvie ated VA 2019 ed well CNTRL [facility] [place] [facility] HCS INFLUENZA, complet VA SEASONAL, 2019 ed CNTR L INJECTABLE WST RN [place] [facility] HCS INFLUENZA, complet VA SEASONAL, 2018 ed CNTR L INJECTABLE WST RN [place] [facility] HCS ZOSTER 2 complet VA RECOMBINANT 2017 ed CN TRL [facility] [place] [facility] HCS ZOSTER 1 complet VA RECOMBINANT 2017 ed CN TRL [facility] [place] [facility] HCS INFLUENZA, complet [place] [facility] SEASONAL, 2017 ed CNTR L INJECTABLE WST RN [place] [facility] HCS FLU,3 YRS complet Site: V A (HISTORICAL) 2015 ed Right C NTRL Deltoid [facility] [place] [facility] HCS FLU,3 YRS complet Site: V A (HISTORICAL) 2014 ed Left C NTRL Deltoid [facility] [place] [facility] HCS FLU,3 YRS complet Site: P ITTSFI (HISTORICAL) 2013 ed Right E LD Deltoid CBOC FLU,3 YRS complet Site: V A (HISTORICAL) 2012 ed Right C NTRL Deltoid [facility] [place] [facility] [facility] FLU,3 YRS complet Site: P ITTSFI (HISTORICAL) 2012 ed Left E LD Deltoid [facility] FLU,3 YRS complet V A (HISTORICAL) 2011 ed C NTRL [facility] [place] [facility] [facility] FLU,3 YRS complet V A (HISTORICAL) 2011 ed C NTRL [facility] [place] [facility] HCS DTAP, complet Site: [facility] UNSPECIFIED 2011 ed Right CN TRL FORMULATION Deltoid [facility] [place] [facility] HCS FLU,3 YRS complet Site: V A (HISTORICAL) 2010 ed Right C NTRL Deltoid [facility] [place] [facility] [facility] FLU,3 YRS complet Site: S [facility] (HISTORICAL) 2009 ed Right I ELD Deltoid NOVEL complet [employer] SP RINGF INFLUENZA-H1N 2009 ed IELD -, ALL FORMULATIONS FLU,3 YRS complet Site: S [place] (HISTORICAL) 2008 ed Left I ELD Deltoid FLU,3 YRS complet Site: V A (HISTORICAL) 2007 ed Left C NTRL Deltoid [facility] [place] [facility] [facility] FLU,3 YRS complet V A (HISTORICAL) 2007 ed C NTRL [facility] [place] [facility] HCS PNEUMOCOCCAL, complet Pt states VA UNSPECIFIED 2007 ed he had C NTRL FORMULATION Pneumova c [facility]N at [facility] StandDown SETS 2998 HCS FLU,3 YRS complet Site: S [facility] (HISTORICAL) 2007 ed Right I ELD Deltoid TD(ADULT) ,DILSHAD 139 complet VA UNSPECIFIED 2006 RINE M ed C NTRL FORMULATION WS TRN [place] [facility] HCS FLU,3 YRS complet S [place] (HISTORICAL) 2005 ed I ELD FLU,3 YRS 08/13/ ESPINOZASAM T 88 complet VA (HISTORICAL) 2004 ed C NTRL [place]S [facility] FLU,3 YRS 06/28/ TERA SHERWOOD 88 complet [facility] 2000 RICE J ed ON Results Combined list of recent chemistry, hematology and other laboratory results from Department of Defense and Veterans Affairs, ranging from 15 months to all on record, depending upon the facility. Order Results Value Reference Date Interpretation Specimen Commen ts Source Name Range BASIC UREA 23 7 - 25 08 Specimen Type: S OBDULIA [place] [facility] METABOLIC NITROGEN /2021 No comment en tered. WSTRN PANEL [MASS/VOLUM Ordering Pr ovider: BALTAZAR SWANSON (fasting) E] IN SERUM Report Re leased Date/Time: Feb 04, 2022 11:15 AM TS HCS OR PLASMA Reporting Lab : [facility] WSTRN [place] [address] Performing [facility]: [facility] [place] [address] BASIC GLUCOSE 211 65 - 100 08/ H Specimen Type: SERUM SC CNTR METABOLIC [MASS/VOLUM /2021 No comment entered. WSTRN PANEL E] IN SERUM Ordering Pr ovider: BALTAZAR SWANSON (fasting) OR PLASMA Report Rele ased Date/Time: Feb 04, 2022 11:15 AM TS HCS Reporting Lab: [facility] [address] [facility] [address] Performing [facility]: [facility] [place] [address] BASIC SODIUM 135 135 - 145 08/ Specimen Type: [facility] MET[facility]OLIC [MOLES/VOLU /2021 No comment entered. WSTRN PANEL ME] IN Ordering Provid er: BALTAZAR SWANSON (fasting) SERUM OR Report Relea sed Date/Time: Feb 04, 2022 11:15 AM TS HCS PLASMA Reporting [facility] [place] [address] [facility] [place] [address] BASIC POTASSIUM 4.9 3.5 - 5.0 03/23 Specimen Typ e: SERUM [facility] METABOLIC [MOLES/VOLU /2021 No comment entered. WSTRN PANEL ME] IN Ordering Provid er: BALTAZAR SWANSON (fasting) SERUM OR Report Relea sed Date/Time: Feb 04, 2022 11:15 AM TS [facility] PLASMA Reporting Lab: [facility] [place] [facility] [address] [facility] [address] Performing Lab: [facility] [place] [facility] [address] [facility] [address] BASIC CHLORIDE 100 100 - 110 03/23 Specimen Type : SERUM [facility] METABOLIC [MOLES/VOLU /2021 No comment entered. WSTRN PANEL ME] IN Ordering Provid er: BALTAZAR SWANSON (fasting) SERUM OR Report Relea sed Date/Time: Feb 04, 2022 11:15 AM TS [facility] PLASMA Reporting Lab: [facility] [place] [facility] [address] [facility] [address] Performing Lab: [facility] [place] [address] [address] BASIC CARBON 25 20 - 30 03/23 Specimen Type: S OBDULIA [facility] METABOLIC DIOXIDE, /2021 No comment en tered. WSTRN PANEL TOTAL Ordering Provid er: BALTAZAR SWANSON (fasting) [MOLES/VOLU Report Re leased Date/Time: Feb 04, 2022 11:15 AM [facility] ME] IN Reporting Lab: [facility] [place] [facility] SERUM OR [address] [place] [address] PLASMA Performing Lab: [facility] [place] [address] [address] BASIC CREATININE 1.14 0.50 - 08 Specimen Type : SERUM [facility] METABOLIC [MASS/VOLUM 1.40 /2021 No comment entered. WSTRN PANEL E] IN SERUM Ordering Pr ovider: BALTAZAR SWANSON (fasting) OR PLASMA Report Rele ased Date/Time: Feb 04, 2022 11:15 AM TS HCS Reporting Lab: [facility] [place] [facility] [address] [facility] [address] Performing Lab: [facility] [place] [facility] [address] [facility] [address] BASIC GLOMERULAR 72 60 08 Specimen Type : SERUM [facility] METABOLIC FILTRATION /2021 No comment entered. WSTRN PANEL RATE/1.73 Ordering Prov ider: BALTAZAR SWANSON (fasting) SQ Report Releas ed Date/Time: Feb 04, 2022 11:15 AM TS HCS M.PREDICTED Reporting L ab: [facility] [place] [facility] [VOLUME [address] [facility] [address] RATE/AREA] Performing L ab: [facility] [place] HCS IN SERUM, [address] [facility] [address] PLASMA OR BLOOD BY CREATININE- BASED FORMULA (CKD-EPI) CBC LEUKOCYTES 9.13 4.50 - 08 Specimen Type : BLOOD [facility] [#/VOLUME] 11.00 No comment en tered. WSTRN IN BLOOD BY Ordering Pr ovider: BALTAZAR SWANSON AUTOMATED Report Releas ed Date/Time: Feb 04, 2022 11:15 AM TS HCS COUNT Reporting Lab: [facility] [place] [facility] [address] [facility] [address] Performing Lab: [facility] [place] [facility] [address] [facility] [address] CBC ERYTHROCYTE 4.34 4.23 - 08 Specimen Typ e: BLOOD [facility] S 5.66 /2021 No comment enter ed. WSTRN [#/VOLUME] Ordering Pro vider: BALTAZAR SWANSON [place] IN BLOOD BY Report Rele ased Date/Time: Feb 04, 2022 11:15 AM TS HCS AUTOMATED Reporting Lab : [facility] [place] H[facility] COUNT [address] [facility] [address] Performing Lab: [facility] [place] [facility] [address] [facility] [address] CBC HEMOGLOBIN 14.1 12.8 - 17 03/23 Specimen Ty pe: BLOOD [facility] [MASS/VOLUM /2021 No comment e ntered. WSTRN E] IN BLOOD Ordering Pr ovider: BALTAZAR SWANSON Report Released Date/Time: Feb 04, 2022 11:15 AM TS HCS Reporting Lab: [facility] [place] [facility] [address] [facility] [address] Performing Lab: [facility] [place] [facility] [address] [facility] [address] CBC HEMATOCRIT 40.4 39.2 - 08 Specimen Type : BLOOD [facility] [VOLUME 50.4 /2021 No comment enter ed. WSTRN FRACTION] Ordering Prov ider: BALTAZAR SWANSON OF BLOOD BY Report Rele ased Date/Time: Feb 04, 2022 11:15 AM TS HCS AUTOMATED Reporting Lab : [facility] [place] [facility] COUNT [address] [facility] [address] Performing Lab: [facility] [place] [facility] [address] [facility] [address] CBC MCV 93.1 82 - 99 03/23 Specimen Type: B LOOD [facility] [ENTITIC /2021 No comment ente red. WSTRN VOLUME] BY Ordering Pro vider: BALTAZAR SWANSON AUTOMATED Report Releas ed Date/Time: Feb 04, 2022 11:15 AM TS HCS COUNT Reporting Lab: [facility] [place] [facility] [address] [facility] [address] Performing Lab: [facility] [place] [facility] [address] [facility] [address] CBC MCHC 34.9 30.8 - 08 Specimen Type: B LOOD [facility] [MASS/VOLUM 35.1 /2021 No comment e ntered. WSTRN E] BY Ordering Provid er: BALTAZAR SWANSON AUTOMATED Report Releas ed Date/Time: Feb 04, 2022 11:15 AM TS HCS COUNT Reporting Lab: [facility] [place] [facility] [address] [facility] [address] Performing Lab: [facility] [place] [facility] [address] [facility] [address] CBC PLATELETS 188 140 - 360 08 Specimen Typ e: BLOOD [facility] [#/VOLUME] /2021 No comment en tered. WSTRN IN BLOOD BY Ordering Pr ovider: BALTAZAR SWANSON AUTOMATED Report Releas ed Date/Time: Feb 04, 2022 11:15 AM TS HCS COUNT Reporting Lab: [facility] [place] [facility] [address] [facility] [address] Performing Lab: [facility] [place] [facility] [address] [facility] [address] CBC ERYTHROCYTE 11.6 12.0 - 08 L Specimen Typ e: BLOOD [facility] DISTRIBUTIO 16.0 /2021 No comment e ntered. WSTRN N WIDTH Ordering Provid er: BALTAZAR SWANSON [RATIO] BY Report Relea sed Date/Time: Feb 04, 2022 11:15 AM TS HCS AUTOMATED Reporting Lab : [facility] [place] [facility] COUNT [address] [facility] [address] Performing Lab: [facility] [place] [facility] [address] [facility] [address] CBC MCH 32.5 26.2 - 08 Specimen Type: B LOOD [facility] [ENTITIC 32.6 /2021 No comment ente red. WSTRN MASS] BY Ordering Provi goran: BALTAZAR SWANSON AUTOMATED Report Releas ed Date/Time: Feb 04, 2022 11:15 AM TS HCS COUNT Reporting Lab: [facility] [place] [facility] [address] [facility] [address] Performing Lab: [facility] [place] [facility] [address] [facility] [address] HEMOGLOBI HEMOGLOBIN 8.1 4.0 - 5.6 08/ H Specimen Type: BLOOD [facility] N A1C A1C/HEMOGLO /2021 Comment: Va lues obtained from A1C measurements can vary. For typical A1C assays, a reported value of 7.0 could actually be between 6.72 and 7.28 if measured by a reference method. A reported value of 9 WSTRN PANEL BIN.TOTAL .0 could actua lly be between 8.73 and 9.27. Ref: [email or web address].org/[email or web address] [place] IN BLOOD BY Ordering Pr ovider: BALTAZAR SWANSON [facility] HPLC Report Released Date/Time: Feb 04, 2022 11:15 AM Reporting Lab: [facility] [place] [facility] [address] [facility] [address] Performing Lab: [facility] [place] [facility] [address] [facility] [address] LIVER PROTEIN 7.4 6.0 - 8.3 03/23 Specimen Type: SERUM [facility] FUNCTION [MASS/VOLUM /2021 No comment entered. WSTRN E] IN SERUM Ordering Pr ovider: BALTAZAR SWANSON [place] PLASMA Report Releas ed Date/Time: Feb 04, 2022 11:15 AM [facility] Reporting Lab: [facility] [place] [facility] [address] [facility] [address] Performing Lab: [facility] [place] [address] [address] LIVER ALBUMIN 4.1 3.5 - 5.0 03/23 Specimen Type: SERUM [facility] FUNCTION [MASS/VOLUM No comment entered. WSTRN E] IN SERUM Ordering Pr ovider: BALTAZAR SWANSON [place] PLASMA Report Releas ed Date/Time: Feb 04, 2022 11:15 AM [facility] Reporting Lab: [facility] [place] [facility] [address] [facility] [address] Performing Lab: [facility] [place] [address] [address] LIVER ALKALINE 80 40 - 150 03/23 Specimen Type: SERUM [facility] FUNCTION No comment entered. WSTRN [ENZYMATIC Ordering Pro vider: BALTAZAR SWANSON ACTIVITY/VO Report Rele ased Date/Time: Feb 04, 2022 11:15 AM [facility] LUME] IN Reporting Lab: [facility] [place] [facility] SERUM OR [address] [facility] [address] PLASMA Performing Lab: [facility] [place] [address] [address] LIVER ASPARTATE 20 5 - 34 03/23 Specimen Type: SERUM [facility] FUNCTION AMINOTRANSF /2021 No comment entered. WSTRN ERASE Ordering Provid er: BALTAZAR SWANSON [ENZYMATIC Report Relea sed Date/Time: Feb 04, 2022 11:15 AM TS HCS ACTIVITY/VO Reporting L ab: [facility] [place] HCS LUME] IN [address] [facility] [address] SERUM OR Performing Lab : [facility] [place] [facility] PLASMA [address] [facility] [address] LIVER ALANINE 26 6 - 55 03/23 Specimen Type: S OBDULIA [facility] FUNCTION AMINOTRANSF No comment entered. WSTRN ERASE Ordering Provid er: BALTAZAR SWANSON [ENZYMATIC Report Relea sed Date/Time: Feb 04, 2022 11:15 AM TS HCS ACTIVITY/VO Reporting L ab: [facility] [place] H[facility] LUME] IN [address] [place] [address] SERUM OR Performing Lab : [facility] [place] [facility] PLASMA [address] [facility] [address] LIVER BILIRUBIN.T 0.5 0.2 - 1.2 03/23 Specimen T ype: SERUM [facility] FUNCTION OTAL No comment ente red. WSTRN [MASS/VOLUM Ordering Pr ovider: BALTAZAR SWANSON E] IN SERUM Report Rele ased Date/Time: Feb 04, 2022 11:15 AM TS HCS OR PLASMA Reporting Lab : [facility] [place] [facility] [address] [facility] [address] Performing Lab: [facility] [place] [facility] [address] [place] [address] MAGNESIUM MAGNESIUM 1.6 1.6 - 2.6 03/23 Specimen T ype: SERUM [facility] [MASS/VOLUM /2021 No comment e ntered. WSTRN E] IN SERUM Ordering Pr ovider: BALTAZAR SWANSON [place] PLASMA Report Releas ed Date/Time: Feb 04, 2022 11:15 AM TS HCS Reporting Lab: [facility] [place] [facility] [address] [facility] [address] Performing Lab: [facility] [place] [facility] [address] [facility] [address] PT & INR INR IN 1.3 03/23 Specimen Type: PLASMA [facility] (COUMADIN PLATELET /2021 No comment en tered. WSTRN ) POOR PLASMA Ordering Pr ovider: BALTAZAR SWANSON BY Report Released Date/Time: Feb 04, 2022 11:15 AM [facility] COAGULATION Reporting L ab: [facility] [place] [facility]AY [address] [facility] [address] Performing Lab: [facility] [place] [facility] [address] [facility] [address] PT & INR PROTHROMBIN 14.7 10.0 - 08 H Specimen Ty pe: PLASMA [facility] (COUMADIN TIME (PT) 13.1 /2021 No comment e ntered. [facility] ) Ordering Provid er: BALTAZAR SWANSON Report Released Date/Time: Feb 04, 2022 11:15 AM [facility] Reporting Lab: [facility] [place] [facility] [address] [facility] [address] Performing Lab: [facility] [place] [facility] [address] [facility] [address] TSH THYROTROPIN 1.41 0.35 - 03/23 Specimen Typ e: SERUM [facility] [UNITS/VOLU 5.00 /2021 No comment e ntered. [facility] ME] IN Ordering Provid er: BALTAZAR SWANSON SERUM OR Report Release d Date/Time: Feb 04, 2022 11:15 AM [facility] PLASMA Reporting Lab: [facility] [place] [facility] [address] [facility] [address] Performing Lab: [facility] [place] [facility] [address] [facility] [address] VITAMIN D 25-HYDROXYV 38 30 - 100 03/23 Specimen Type: SERUM [facility] 25-OH ITAMIN D3 /2021 Comment: Suad min D, 25-Hydroxy reports concentrations of two common forms, 25-OHD2 and 25-OHD3. 25-OHD3 indicates both endogenous production and supplementation. 25-OHD2 is an indicator of exogenous so WSTRN (Therapy [MASS/VOLUM urces such as diet or supplementation. Therapy is based on measurement of Total 25-OHD, with levels <20 ng/mL indicative of Vitamin D deficiency, while levels between 20 ng/mL and 30 ng/mL sugges [place] monitor) E] IN SERUM t insuffici ency. Optimal levels are > or = 30 ng/mL. Vitamin D is fat-soluble and therefore inadvertent or intentional ingestion of excessively high amounts could be toxic. Studies in children an TS HCS OR PLASMA d adults sugge st blood levels would need to exceed 150 ng/mL before there is any concern. Jadyn MF, Zac NC, Charlee GLASS, et al. Evaluation, treatment and prevention of vitamin D deficiency: an Endocrine So [facility] clinical practice guideline. J Clin Endocrinol Metab. 2011;96(7):1911-30. For additional information, please refer to http://education.Ecolibrium/faq/XSD411 (This link is being provided for informational/ educational purposes only.) This test was developed and its analytical performance characteristics have been determined by [employer] [place], [place]. It has no t been cleared or approved by the U.S. Food and Drug Administration. This assay has been validated pursuant to the CLIA regulations and is used for clinical purposes. This test was devnicole medrano and its leyla lytical performance characteristics have been determined by [employer] [place], [place]. It has not been cleared or approved by the U.S. Food and Drug Administratio n. This assay glass s been validated pursuant to the CLIA regulations and is used for clinical purposes. Test Performed by [facility], [employer] [place], [address] [place], [place] Pepe Murguia M.D., Ph.D., Director of Laboratories , CLIA [id number] TEST PERFORMED AT: , Ordering Provid er: BALTAZAR SWANSON Report Released Date/Time: Feb 04, 2022 11:15 AM Reporting Lab: [place] [address] Performing Lab: [facility] [place] [facility] [address] [place], [address] [facility] [address] VITAMIN D 25-HYDROXYV 38 03/23 Specimen T ype: SERUM [place] [facility] 25-OH ITAMIN D3 /2021 Comment: Suad min D, 25-Hydroxy reports concentrations of two common forms, 25-OHD2 and 25-OHD3. 25-OHD3 indicates both endogenous production and supplementation. 25-OHD2 is an indicator of exogenous so WSTRN (Therapy [MASS/VOLUM urces such as diet or supplementation. Therapy is based on measurement of Total 25-OHD, with levels <20 ng/mL indicative of Vitamin D deficiency, while levels between 20 ng/mL and 30 ng/mL sugges [place] monitor) E] IN SERUM t insuffici ency. Optimal levels are > or = 30 ng/mL. Vitamin D is fat-soluble and therefore inadvertent or intentional ingestion of excessively high amounts could be toxic. Studies in children an TS HCS OR PLASMA d adults sugge st blood levels would need to exceed 150 ng/mL before there is any concern. Jadyn MF, Zac NC, Charlee GLASS, et al. Evaluation, treatment and prevention of vitamin D deficiency: an Endocrine So [facility] clinical practice guideline. J Clin Endocrinol Metab. 2011;96(7):1911-30. For additional information, please refer to http://education.Ecolibrium/faq/ZCR493 (This link is being provided for informational/ educational purposes only.) This test was developed and its analytical performance characteristics have been determined by [employer] [place]. It has no t been cleared or approved by the U.S. Food and Drug Administration. This assay has been validated pursuant to the CLIA regulations and is used for clinical purposes. This test was sim medrano and its leyla lytical performance characteristics have been determined by [employer] [place]. It has not been cleared or approved by the U.S. Food and Drug Administratio n. This assay glass s been validated pursuant to the CLIA regulations and is used for clinical purposes. Test Performed by [facility], [employer] [place], [address] [place], [place] Pepe Murguia M.D., Ph.D., Director of Laboratories , MIMIIA [id number] TEST PERFORMED AT: , Ordering Provid er: BALTAZAR SWANSON Report Released Date/Time: Feb 04, 2022 11:15 AM Reporting Lab: [facility] [place] [facility] [address] [facility] [address] Performing Lab: [facility] [place] [facility] [address] [place], [address] [facility] [address] VITAMIN D CALCIFEROL <4 03/23 Specimen Ty pe: SERUM [facility] 25-OH (VIT D2) /2021 Comment: Vitam in D, 25-Hydroxy reports concentrations of two common forms, 25-OHD2 and 25-OHD3. 25-OHD3 indicates both endogenous production and supplementation. 25-OHD2 is an indicator of exogenous so WSTRN (Therapy [MASS/VOLUM urces such as diet or supplementation. Therapy is based on measurement of Total 25-OHD, with levels <20 ng/mL indicative of Vitamin D deficiency, while levels between 20 ng/mL and 30 ng/mL sugges [place] monitor) E] IN SERUM t insuffici ency. Optimal levels are > or = 30 ng/mL. Vitamin D is fat-soluble and therefore inadvertent or intentional ingestion of excessively high amounts could be toxic. Studies in children an TS HCS OR PLASMA d adults sugge st blood levels would need to exceed 150 ng/mL before there is any concern. Jadyn MF, Zac NC, Charlee GLASS, et al. Evaluation, treatment and prevention of vitamin D deficiency: an Endocrine So [facility] clinical practice guideline. J Clin Endocrinol Metab. 2011;96(7):1911-30. For additional information, please refer to http://education.Ecolibrium/faq/DEE015 (This link is being provided for informational/ educational purposes only.) This test was developed and its analytical performance characteristics have been determined by [employer] [place], [place]. It has no t been cleared or approved by the U.S. Food and Drug Administration. This assay has been validated pursuant to the CLIA regulations and is used for clinical purposes. This test was sim medrano and its leyla lytical performance characteristics have been determined by [employer] [place], [place]. It has not been cleared or approved by the U.S. Food and Drug Administratio n. This assay glass s been validated pursuant to the CLIA regulations and is used for clinical purposes. Test Performed by [facility], [facility], [address] [place] [address] Pepe Murguia M.D., Ph.D., Director of Laboratories , CLIA [id number] TEST PERFORMED AT: , Ordering Provid er: BALTAZAR SWANSON Report Released Date/Time: Feb 04, 2022 11:15 AM Reporting Lab: [facility] [address] [facility] [address] Performing Lab: [facility] CNT W[facility]N [facility] [address] [facility], [address] [facility] [address] Vital Signs Combined list of inpatient and outpatient Vital Signs from Department of Defense and Veterans Affairs, ranging from 12 months to all on record, depending upon the facility. Vital Sign Value Date Comments Source SYSTOLIC BLOOD PRESSURE 102 03/23/2022 [facility] 11:28:01 [place] [facility] DIASTOLIC BLOOD PRESSURE 72 03/23/2022 [facility] [place] 11:28:01 [place] [facility] PULSE OXIMETRY 90% 03/23/2022 [facility] 11:28:01 [place] [facility] PAIN 0 03/23/2022 [facility] 11:28:01 [place] [facility] TEMPERATURE 98.2 03/23/2022 [facility] 11:28:01 [place] [facility] PULSE 86 03/23/2022 [facility] 11:28:01 [place] [facility] RESPIRATION 16 03/23/2022 [facility] 11:28:01 [place] [facility] SYSTOLIC BLOOD PRESSURE 104 02/16/2022 [facility] C N[facility]L [facility] 09:59:04 [place] [facility] DIASTOLIC BLOOD PRESSURE 64 02/16/2022 [facility] 09:59:04 [place] [facility] PULSE OXIMETRY 97% 02/16/2022 [facility] 09:59:04 [place] [facility] WEIGHT 250 02/16/2022 [facility] 09:59:04 [place] [facility] BMI 34kg/m2 02/16/2022 [facility] 09[facility]59:04 [place] [facility] PAIN 0 02/16/2022 [facility] 09:59:04 [place] [facility] TEMPERATURE 98.3 02/16/2022 [facility] 09:59:04 [place] [facility] PULSE 62 02/16/2022 [facility] 09:59:04 [place] [facility] RESPIRATION 16 02/16/2022 [facility] 09:59:04 [place] [facility] Encounters Combined list of: 1) Encounters from Department of Veterans Affairs facilities going back up to the last 18 months. 2) Encounters from the Department of Defense facilities going back up to 280 months. Location Location Encounter Encounter Reason Attending ADM DC Stat us Disposition Source Details Type Number For Provider Date Date Visit Outpatient [id number] 12/03 [facility] [id number] [facility] HC PRO [id number] UMAIR Alcaraz 12/06 V A PHONE CALL [id number] is: CNTR L 5-10 MIN ICD-10- WSTRN CM [place] R26.9 SETS Unspeci HCS fied abnorma lities of gait and mobilit y
w ith Provide r Comment s: Unspeci fied Abnorma lities of Gait and Mobilit y Outpatient [id number] 12/06 [facility] Encounter [id number] [facility] [place] [facility] Outpatient [id number] NICOLE GRADY 12/10 [facility] Encounter [id number] [facility]Z [facility] [place] [facility] Outpatient [id number] 12/23 [facility] Encounter [id number] [facility] [place] [facility] Outpatient 04216-2.63 12/23 [facility] Encounter [id number] [facility] [place] [facility] Out[facility] 97439-3.63 12/26 [facility] Encounter [id number] [facility] [place] [facility] Outpatient 39782-6.63 12/31 [facility] Encounter [id number] [facility] [place] [facility] Out[facility] 57561-2.63 01/10 [facility] Encounter [id number] [facility] [place] [facility] Outpatient 62465-1.63 01/26 [facility] Encounter [id number] [facility] [place] [facility] Outpatient [id number] 01/26 [facility] Encounter [id number] [facility] [facility] Outpatient [id number] 01/31 [facility] Encounter [id number] [facility] [facility] PRO [id number] Diagnos VI KIML 02/03 V A PHONE CALL [id number] is: NAY CNTR L 5-10 MIN ICD-10- WSTRN CM [place] Z71.89 SETS Other HCS specifi ed adolescent counselor ing<br/ >with Provide r Comment s: Other specifi ed adolescent counselor ing Outpatient [id number] 02/03 [facility] Encounter [id number] [facility] [place] [facility] Outpatient 61961-6.63 02/04 [facility] Encounter [id number] [facility] [place] [facility] EYE 31176-6.63 Diagnos ERNA HORTAE 02/04 [facility] EXAM&TX [id number] is: Y J CNTRL ESTAB PT ICD-10- WSTRN 1/>VST CM [place] E11.9 SETS Type 2 HCS diabete s mellitu s without complic ations< br/>wit h Provide r Comment s: Type 2 Diabete s Mellitu s without Complic ations OFFICE O/P [id number] Diagnos SKY, 02/04 [facility] EST LOW [id number] is: BALTAZAR F CNT RL 20-29 MIN ICD-10- WSTRN CM [place] Z47.81 SETS Encount [facility] er for orthope dic afterca re followi ng surgica l amp<br/ >with Provide r Comment s: 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 (SCT [id number] 04) Outpatient [id number] 02/05 [facility] Encounter [id number] /2021 [facility] [facility] Outpatient [id number] 02/05 [facility] Encounter [id number] [facility] [facility] Outpatient 52267-9.63 02/05 [facility] Encounter [id number] /2021 [facility] [facility] PRO [id number] Diagnos SYDNI 02/10 V A PHONE CALL [id number] is: FRANCISCO JSRIDHAR CNT RL 5-10 MIN ICD-10- WSTRN CM [place] Z71.89 SETS Other [facility] specifi ed adolescent counselor ing<br/ >with Provide r Comment s: Other specifi ed adolescent counselor ing Outpatient 01816-5.68 02/12 CONN E[facility] Encounter [id number] /2021 [place] [facility] Outpatient 40892-5.63 02/17 [facility] Encounter [id number] /2021 [facility] [facility] Outpatient 64359-3.63 02/18 [facility] Encounter [id number] [facility] [facility] PRO 51950-7.63 Diagnos RACHEL UREÑA 02/18 V A PHONE CALL [id number] is: ICA A CNTR L 5-10 MIN ICD-10- WSTRN CM [place] Z71.89 SETS Other [facility] specifi ed adolescent counselor ing<br/ >with Provide r Comment s: Other specifi ed adolescent counselor [place] 26142-8.63 Diagnos ELIZABETH MURRAY 02/18 V A PHONE CALL [id number] is: KEVIN HUDSON CNTRL 5-10 MIN ICD-10- WSTRN CM [place] Z71.89 SETS Other HCS specifi ed adolescent counselor ing<br/ >with Provide r Comment s: Other specifi ed adolescent counselor ing Outpatient 71658-4.63 02/18 [facility] Encounter [id number] [facility] [facility] HC PRO [id number] Diagnos UMAIR ARREOLA 02/18 V A PHONE CALL [id number] is: CNTR L 21-30 MIN ICD-10- WSTRN CM [place] Z47.81 SETS Encount [facility] er for orthope dic afterca re followi ng surgica l amp<br/ >with Provide r Comment s: 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 (SCT [id number] 04) Outpatient 45505-4.63 02/18 [facility] En[facility] [id number] [facility] [place] [facility] [place] 54562-5.63 02/19 [facility] Encounter [id number] /2021 [facility] [place] [facility] Outpatient 79557-8.63 07 [facility] Encounter [id number] [facility] [place] [facility] Outpatient 73342-8.63 07 [facility] Encounter [id number] [facility] [place] [facility] Outpatient 91022-4.63 02/26 [facility] Encounter [id number] /2021 [facility] [place] [facility] Outpatient 97458-3.63 02/26 [facility] Encounter [id number] /2021 [facility] [place] [facility] Outpatient 34088-9.63 03/07 [facility] Encounter [id number] [facility] [place] [facility] Outpatient 01924-0.63 03/12 [facility] Encounter [id number] /2021 [facility] [place] [facility] Outpatient 05563-6.63 03/12 [facility] Encounter [id number] /2021 [facility] [place] [facility] Outpatient 67429-5.63 03/14 [facility] Encounter [id number] [facility] [place] [facility] Outpatient 97094-9.63 03/14 [facility] Encounter [id number] /2021 [facility] [place] [facility] PT EVAL 87514-3.63 Diagnos RAFARHEENKER 03/17 [facility] HIGH [id number] is: RY CNTRL COMPLEX 45 ICD-10- WSTRN MIN CM [place] Z47.81 SETS Encount [facility] er for orthope dic afterca re followi ng surgica l amp<br/ >with Provide r Comment s: 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 (SCT [id number] 04) Outpatient [id number] 03/17 [facility] Encounter [id number] [facility] [facility] OFFICE O/P 89611-7.63 Diagnos MERHAR,LORENE 03/18 [facility] EST [id number] is: H B CNTRL MINIMAL ICD-10- WSTRN PROB CM [place] H52.7 SETS Unspeci HCS fied disorde r of refract ion<br/ >with Provide r Comment s: Unspeci fied Disorde r of Refract ion Outpatient 42513-3.63 03/18 [facility] Encounter [id number] [facility] [place] [facility] Out[place] 40545-6.63 03/24 [facility] Encounter [id number] /2021 [facility] [place] [facility] Outpatient 67461-0.63 03/27 [facility] Encounter [id number] [facility] [place] [facility] Outpatient 72668-8.63 04/07 [facility] Encounter [id number] [facility] [place] [facility] Outpatient 65019-2.63 04/15 [facility] Encounter [id number] [facility] [place] [facility] Outpatient 63812-7.63 04/22 [facility] Encounter [id number] [facility] [place] [facility] Outpatient 89477-9.63 04/30 [facility] Encounter [id number] /2021 [facility] [place] [facility] Outpatient 99928-6.63 05/12 [facility] Encounter [id number] [facility] [place] [facility] Outpatient 16853-3.63 05/19 [facility] Encounter [id number] [facility] [place] [facility] Outpatient 94295-3.63 06/24 [facility] Encounter [id number] [facility] [place] [facility] Outpatient 50726-9.63 07/21 [facility] Encounter [id number] [facility] [place] [facility] Outpatient 55218-4.63 08/15 [facility] Encounter [id number] /2021 [facility] [place] [facility] Outpatient 46207-4.63 08/23 [facility] Encounter [id number] [facility] [place] [facility] Outpatient 90562-3.63 09/23 [facility] Encounter [id number] /2022 [facility] [place] [facility] Outpatient 16654-0.63 09/26 [facility] Encounter [id number] /2022 [facility] [place] [facility] Outpatient 81058-4.63 09/29 [facility] Encounter [id number] /2022 [facility] [place] [facility] Outpatient 52709-2.63 10/22 [facility] Encounter [id number] [facility] [place] [facility] Outpatient 73898-4.63 11/21 [facility] Encounter [id number] /2022 [facility] [place] [facility] Outpatient 60498-7.63 12/11 [facility] Encounter [id number] /2022 [facility] [place] [facility] Outpatient 28067-0.63 12/12 [facility] Encounter [id number] /2022 [facility] [place] [facility] Outpatient 61580-5.63 12/19 [facility] Encounter [id number] [facility] [place] [facility] Outpatient 31103-3.63 12/19 [facility] Encounter [id number] [facility] [place] [facility] Outpatient 04373-6.63 12/22 [facility] Encounter [id number] [facility] [place] [facility] Outpatient 43903-4.63 12/25 [facility] Encounter [id number] [facility] [place] [facility] Outpatient 65087-8.63 01/10 [facility] Encounter [id number] [facility] [place] [facility] Outpatient 54023-2.63 01/21 [facility] Encounter [id number] /2022 [facility] [place] [facility] Outpatient 77516-5.63 02/03 [facility] Encounter [id number] /2022 [facility] [place] [facility] OFFICE O/P 54933-0.63 Diagnos SKY, 02/16 [facility] EST LOW [id number] is: BALTAZAR F /2021 CNT RL 20-29 MIN ICD-10- WSTRN CM [place] Z47.81 SETS Encount [facility] er for orthope dic afterca re followi ng surgica l amp<br/ >with Provide r Comment s: 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 (SCT 6046133 04) Outpatient 45429-2.63 02/19 [facility] Encounter [id number] /2022 [facility] [facility] Outpatient 57672-7.63 02/20 [facility] Encounter [id number] /2022 [facility] [place] [facility] Outpatient 69776-2.63 03/11 [facility] Encounter [id number] /2022 [facility] [place] [facility] Outpatient 21793-4.63 03/11 [facility] Encounter [id number] /2022 [facility] [place] [facility] Outpatient 58896-6.63 03/18 [facility] Encounter [id number] [facility] [place] [facility] Outpatient 67962-6.63 03/18 [facility] Encounter [id number] /2022 [facility] [place] [facility] Outpatient 01073-9.63 03/19 [facility] Encounter 1. [facility] [place] [facility] Outpatient 32350-1.63 03/19 [facility] Encounter 1. [facility] [place] [facility] Out[place] 92583-2.63 03/19 [facility] Encounter [id number] /2022 [facility] [place] [facility] Outpatient 37859-0.63 03/20 [facility] Encounter [id number] /2022 [facility] [place] [facility] OFFICE O/P 78006-6.63 Diagnos SKY, 03/23 [facility] EST LOW [id number] is: BALTAZAR Nolasco /2021 CNT RL 20-29 MIN ICD-10- WSTRN CM [place] Z86.711 SETS [facility] history of pulmona ry embolis m
w ith Provide r Comment s: H/O: pulmona ry embolus (SCT [id number] 07) Outpatient [id number] 03/24 [facility] Encounter [id number] [facility] [place] [facility] [place] 26041-8.63 03/27 [facility] Encounter [id number] [facility] [place] [facility] Outpatient 02014-5.63 03/27 [facility] Encounter [id number] [facility] [facility] Outpatient 17531-5.63 04/09 [place] Encounter [id number] PTON 552 DETERMINE 52030-4.63 Diagnos OSSOUMYAE, 04/09 [facility] REFRACTIVE [id number] is: MATHEW Gleason /2021 CNTRL STATE ICD-10- WSTRN CM [place] E11.9 SETS Type 2 HCS diabete s mellitu s without complic ations< br/>wit h Provide r Comment s: DM Type 2 w/o Complic ations Outpatient [id number] 05/21 [facility] Encounter [id number] /2022 [facility] [facility] Social History Combined list of available smoking, tobacco, and other social history from Department of Defense andVeterans Affairs facilities. Social History Response Date Comment Source Type Tobacco smoking VA-TOBACCO FORMER 02/16/2022 [facility] CN[facility] status NHIS USER [place] [facility] History of VA-TOBACCO QUIT 15 02/16/2022 [facility] tobacco use YRS OR MORE [place] [facility] History of VA-TOBACCO NEVER 02/04/2021 VA [facility]N tobacco use USED [place] [facility] History of VA-TOBACCO QUIT 15 05/08/2019 [facility]N tobacco use YRS OR MORE [place] [facility] History of VA-TOBACCO NEVER 10/26/2018 [facility] WS TRN tobacco [facility] History of QUIT TOBACCO USE > 10/21/2017 [facility]irts [facility] WSTRN tobacco use 7 YEARS AGO quitting smoking 30 [place] [facility] years ago, cigarettes History of QUIT TOBACCO USE 12/06/2015 [facility] WS TRN tobacco use IN PAST YEAR [place] [facility] History of TOBACCO INPATIENT 12/05/2014 [facility] W STRN tobacco use NO USE 30 DAYS [place] [facility] History of LIFETIME 12/05/2014 [facility] WSTRN tobacco use NON-TOBACCO USER [facility] History of TOBACCO INPATIENT 11/03/2014 [facility] W STRN tobacco use NO USE 30 DAYS [place] [facility] History of TOBACCO INPATIENT 11/02/2014 [facility] tobacco use NO USE 30 DAYS [place] [facility] History of HISTORY OF SMOKING 12/21/2003 stopped tobacco 1-2 [facility] [place] tobacco use years ago History of QUIT [facility]BAC[facility] Advance Directives List of completed, amended, or rescinded Advance Directives on record at Department of Veterans Affairs facilities. An actual copy of the Directive is not included. Date Advance Directive Provider Source 09/06/2007 ADVANCE DIRECTIVE ROBERTO FONTENOT [facility] [place] [facility]
[2022-05-25 16:10] LABS: Bacteria Urine 3+ (None Seen); Hyaline Casts Urine 0-2 /LPF (0-2); RBC Urine 0-2 /HPF (0-2); UACC Culture Trigger YES; WBC Urine >50 /HPF (0-5)
[2022-05-25 16:15] LABS: ~Lactic Acid-LAB USE ONLY 2.3 mmol/L (0.5-2.0)
[2022-05-25 17:55] LABS: Reflex Lactate? 2 Y
[2022-05-25 17:58] LABS: Glucose, Whole Blood 242 mg/dL (60-115)
[2022-05-25 18:25] LABS: ~Lactic Acid-LAB USE ONLY 1.9 mmol/L (0.5-2.0)
[2022-05-25] MEDS: Insulin Lispro 100 UNIT/ML 3 ML VIAL SUBCUT ×2 (18:43→22:12)
[2022-05-25] MEDS: Magnesium Oxide 400 MG TABLET PO (18:43)
[2022-05-25 21:49] LABS: Glucose, Whole Blood 246 mg/dL (60-115)
[2022-05-25] MEDS: Apixaban 5 MG TABLET PO (22:12)
[2022-05-25] MEDS: Gabapentin 600 MG TABLET PO (22:12)
[2022-05-25] MEDS: Insulin Glargine,Hum.rec.anlog 100 UNIT/ML 10 ML VIAL 15 UNIT SUBCUT (22:13)
--- NOTE | 2022-05-26 00:42 | PC.NURSE ---
Nurse to nurse report given to mendez Small RN. Patient to be taken to overflow unit bed 8 by lot technician.
--- NOTE | 2022-05-26 01:49 | PC.NURSE ---
assumed care of patient at this time ,patient is currently sleeping .
[2022-05-26 05:14] VITALS: BP 120/65; PULSE 62; RESP 16; TEMP 36.3; O2SAT 95
[2022-05-26] MEDS: cefTRIAXone sodium 1 GM in 0.9 % Sodium Chloride 50 ML IV (05:52)
[2022-05-26 07:06] LABS: Glucose, Whole Blood 188 mg/dL (60-115)
--- NOTE | 2022-05-26 07:21 | PC.NURSE ---
Patient resting comfortably on bipap overnight. Denies pain , VSS, Will continue to monitor.
[2022-05-26] MEDS: Insulin Lispro 100 UNIT/ML 3 ML VIAL SUBCUT ×4 (07:31→20:55)
[2022-05-26 07:38] VITALS: BP 127/63; PULSE 83; RESP 20; TEMP 37.1; O2SAT 97
[2022-05-26 07:47] LABS: Hematocrit 35.2 % (42.0-52.0); Hemoglobin 12.5 g/dl (14.0-18.0); Mean Corpuscular HGB Conc 35.5 g/dl (31.0-36.0); Mean Corpuscular Hemoglobin 32.7 pg (27.0-33.0); Mean Corpuscular Volume 92.1 fL (80.0-98.0); Mean Platelet Volume 10.9 fL (9.4-12.4); Platelet Count 132 X10*3/uL (160-400); Red Blood Count 3.82 X10*6/uL (4.60-5.80); Red Cell Distribution Width 12.1 % (11.0-16.0); White Blood Count 7.3 X10*3/uL (4.8-10.8)
[2022-05-26 08:23] LABS: Anion Gap 15 (12-20); Blood Urea Nitrogen 23 mg/dL (9-16); Calcium 8.4 mg/dL (8.4-10.2); Carbon Dioxide 20 mmol/L (22-29); Chloride 104 mmol/L (96-108); Creatinine Clr Calc Pharmacy 104.8; Estimated Glomerular Filt Rate > 60; Glucose Fasting 227 mg/dL (60-99); Magnesium 1.6 mg/dL (1.6-2.6); Potassium 4.2 mmol/L (3.3-5.1); Sodium 135 mmol/L (135-145)
[2022-05-26] MEDS: 0.9 % Sodium Chloride Flush 3 ML SYRINGE IVFLUSH ×3 (08:35→22:15)
[2022-05-26] MEDS: Venlafaxine HCl ER 150 MG CAP.ER.24H PO (08:35)
[2022-05-26] MEDS: Aspirin Enteric Coated 81 MG TABLET.DR PO (08:35)
[2022-05-26] MEDS: Cholecalciferol (Vitamin D3) 25 MCG TABLET PO (08:35)
[2022-05-26] MEDS: Gabapentin 600 MG TABLET PO ×3 (08:36→20:55)
[2022-05-26] MEDS: Atorvastatin Calcium 40 MG TABLET PO (08:36)
[2022-05-26] MEDS: Magnesium Oxide 400 MG TABLET PO ×2 (08:36→17:16)
[2022-05-26] MEDS: Apixaban 5 MG TABLET PO ×2 (08:36→20:55)
[2022-05-26] MEDS: lisinopriL 10 MG TABLET PO (08:36)
--- NOTE | 2022-05-26 10:12 | HO.PM.IMPN ---
Subjective Subjective Date of Service: 05/26/22 Interval History: cc: chills interval history: much better today Cardiovascular Cardiovascular: Reports no additional cardiovascular complaints Respiratory Respiratory: Reports no additional respiratory complaints Physical Exam Vital Signs: Vital Signs: Last Vital Signs Temp 98.7 F 05/26/22 07:38 Pulse 83 05/26/22 07:38 Resp 20 05/26/22 07:38 BP 127/63 05/26/22 07:38 Pulse Ox 97 05/26/22 07:38 O2 Del Method 05/26/22 07:38 BMI result Body Mass Index 37.8 General: AO X 3, no acute distress Resp: CTA bilateral, no accessory muscles used CVS: S1,S2,RRR GI: soft, non tender, non distended Neuro: motor grossly intact, alert Psych: appropriate affect, appropriate insight bilateral BKA Objective Data Active Medications Acetaminophen (Acetaminophen 325 Mg Tablet) 650 mg PO Q6H PRN PRN Reason: Pain, Mild (Pain Scale 1-3) Albuterol/Ipratropium (Albuterol/Iprat 2.5/0.5mg 3 Ml Ampul.Neb) 3 ml INHALE RQ4H PRN PRN Reason: sob Apixaban (Apixaban 5 Mg Tablet) 5 mg PO BID [facility] Last Admin: 05/26/22 08:36 Dose: 5 mg Documented By: DEACON Aspirin (Aspirin Enteric Coated 81 Mg Tablet.) 81 mg PO DAILY [facility] Last Admin: 05/26/22 08:35 Dose: 81 mg Documented By: DEACON Atorvastatin Calcium (Atorvastatin Calcium 40 Mg Tablet) 40 mg PO DAILY [facility] Last Admin: 05/26/22 08:36 Dose: 40 mg Documented By: DEACON Dextrose (Dextrose 50 % 25 Gm/50 Ml Syringe) 25 gm IVPUSH Q15M PRN; Protocol PRN Reason: per Hypoglycemia Standing Ord. Gabapentin (Gabapentin 600 Mg Tablet) 600 mg PO TID [facility] Last Admin: 05/26/22 08:36 Dose: 600 mg Documented By: DEACON Glucose (Glucose Gel 15 Gm Gel..Gram.) 15 gm PO Q15M PRN; Protocol PRN Reason: per Hypoglycemia Standing Ord. Hydroxyzine HCl (Hydroxyzine Hcl 10 Mg Tablet) 10 mg PO BID PRN PRN Reason: Anxiety Ceftriaxone Sodium 1 gm/ (Sodium Chloride) 50 mls @ 100 mls/hr IV Q24H [facility] Last Infusion: 05/26/22 06:27 Dose: 100 mls/hr Documented By: ANGIE Insulin Glargine (Insulin Glargine,Hum.Rec.Anlog 100 Unit/Ml 10 Ml Vial) 15 unit SUBCUT BEDTIME [facility] Last Admin: 05/25/22 22:13 Dose: 15 unit Documented By: LAURA Insulin Human Lispro (Insulin Lispro 100 Unit/Ml 3 Ml Vial) 0 unit SUBCUT QIDACHS [facility]; Protocol Last Admin: 05/26/22 07:31 Dose: 2 unit Documented By: DEACON Lisinopril (Lisinopril 10 Mg Tablet) 10 mg PO DAILY [facility]; Protocol Last Admin: 05/26/22 08:36 Dose: 10 mg Documented By: DEACON Magnesium Oxide (Magnesium Oxide 400 Mg Tablet) 400 mg PO BIDPC [facility] Last Admin: 05/26/22 08:36 Dose: 400 mg Documented By: DEACON Pharmacy Consult (Consult Rx Perform Med Rec) 1 each MISCELLANE ONCE PRN PRN Reason: Consult order Sodium Chloride (0.9 % Sodium Chloride Flush 3 Ml Syringe) 3 ml IVFLUSH QSHIFT [facility] Last Admin: 05/26/22 08:35 Dose: 3 ml Documented By: DEACON Venlafaxine HCl (Venlafaxine Hcl Er 150 Mg Cap.Er.24h) 150 mg PO DAILY [facility] Last Admin: 05/26/22 08:35 Dose: 150 mg Documented By: DEACON Vitamin D (Cholecalciferol (Vitamin D3) 25 Mcg Tablet) 25 mcg PO DAILY [facility] Last Admin: 05/26/22 08:35 Dose: 25 mcg Documented By: DEACON Labs CBC & Chem 7: 05/26/22 07:11 05/26/22 07:11 Labs: Laboratory Results - last 24 hr 05/25/22 05/25/22 05/25/22 13:07 13:08 13:09 MCV 91.8 MCH 33.4 H MCHC 36.4 H RDW 12.1 Plt Count 142 L MPV 10.9 Immature Gran % (Auto) 0.4 Neut % (Auto) 88.7 H Lymph % (Auto) 4.0 L [place] % (Auto) 5.9 Eos % (Auto) 0.5 Baso % (Auto) 0.5 Lymph # (Auto) 0.3 L [place] # (Auto) 0.5 Eos # (Auto) 0.0 Baso # (Auto) 0.0 Abs Immat Gran (auto) 0.03 Absolute Neuts (auto) 6.9 Absolute Nucleated RBC 0.000 Nucleated RBC % (auto) 0.0 PT INR APTT Anion Gap Estim Creat Clear Calc Estimated GFR POC Glucose Random Glucose Fasting Glucose Lactic Acid 2.2 H* Lactic Acid F/U @ 2Hr Lactic Acid F/U @ 4Hr Calcium Magnesium Total Bilirubin Direct Bilirubin AST ALT Alkaline Phosphatase Troponin I High Sens Total Protein Albumin Lipase Urine Color Urine Appearance Urine pH Ur Specific [place] Urine Protein Urine Glucose (UA) Urine Ketones Urine Blood Urine Nitrite Ur Leukocyte Esterase Urine RBC Urine WBC Ur Squamous Epith Cells Urine Bacteria Hyaline Casts COVID-19 (JOSE) Negative COVID-19 Clin Com See Note 05/25/22 05/25/22 05/25/22 13:09 13:09 13:10 MCV MCH MCHC RDW Plt Count MPV Immature Gran % (Auto) Neut % (Auto) Lymph % (Auto) [place] % (Auto) Eos % (Auto) Baso % (Auto) Lymph # (Auto) [place] # (Auto) Eos # (Auto) Baso # (Auto) Abs Immat Gran (auto) Absolute Neuts (auto) Absolute Nucleated RBC Nucleated RBC % (auto) PT 12.5 INR 1.1 APTT 28.0 Anion Gap 16 Estim Creat Clear Calc 89.5 Estimated GFR > 60 POC Glucose Random Glucose 289 H D Fasting Glucose Lactic Acid Lactic Acid F/U @ 2Hr Lactic Acid F/U @ 4Hr Calcium 8.6 Magnesium 1.4 L* Total Bilirubin 1.2 H Direct Bilirubin 0.6 H AST 23 ALT 33 Alkaline Phosphatase 82 Troponin I High Sens 6.5 D Total Protein 6.6 Albumin 3.9 Lipase 16 Urine Color Urine Appearance Urine pH Ur Specific [place] Urine Protein Urine Glucose (UA) Urine Ketones Urine Blood Urine Nitrite Ur Leukocyte Esterase Urine RBC Urine WBC Ur Squamous Epith Cells Urine Bacteria Hyaline Casts COVID-19 (JOSE) COVID-19 Clin Com 05/25/22 05/25/22 05/25/22 15:51 15:52 17:53 MCV MCH MCHC RDW Plt Count MPV Immature Gran % (Auto) Neut % (Auto) Lymph % (Auto) [place] % (Auto) Eos % (Auto) Baso % (Auto) Lymph # (Auto) [place] # (Auto) Eos # (Auto) Baso # (Auto) Abs Immat Gran (auto) Absolute Neuts (auto) Absolute Nucleated RBC Nucleated RBC % (auto) PT INR APTT Anion Gap Estim Creat Clear Calc Estimated GFR POC Glucose 242 H Random Glucose Fasting Glucose Lactic Acid Lactic Acid F/U @ 2Hr 2.3 H* Lactic Acid F/U @ 4Hr Calcium Magnesium Total Bilirubin Direct Bilirubin AST ALT Alkaline Phosphatase Troponin I High Sens Total Protein Albumin Lipase Urine Color Yellow Urine Appearance Cloudy Urine pH 5.0 Ur Specific [place] 1.025 Urine Protein 30 (1+) H Urine Glucose (UA) 500 H Urine Ketones Trace Urine Blood Trace H Urine Nitrite Positive H Ur Leukocyte Esterase Large (3+) H Urine RBC 0-2 Urine WBC >50 H Ur Squamous Epith Cells 3-5 Urine Bacteria 3+ Hyaline Casts 0-2 COVID-19 (JOSE) COVID-19 [facility] 05/25/22 05/25/22 05/26/22 18:08 21:45 07:02 MCV MCH MCHC RDW Plt Count MPV Immature Gran % (Auto) Neut % (Auto) Lymph % (Auto) [place] % (Auto) Eos % (Auto) Baso % (Auto) Lymph # (Auto) [place] # (Auto) Eos # (Auto) Baso # (Auto) Abs Immat Gran (auto) Absolute Neuts (auto) Absolute Nucleated RBC Nucleated RBC % (auto) PT INR APTT Anion Gap Estim Creat Clear Calc Estimated GFR POC Glucose 246 H 188 H Random Glucose Fasting Glucose Lactic Acid Lactic Acid F/U @ 2Hr Lactic Acid F/U @ 4Hr 1.9 Calcium Magnesium Total Bilirubin Direct Bilirubin AST ALT Alkaline Phosphatase Troponin I High Sens Total Protein Albumin Lipase Urine Color Urine Appearance Urine pH Ur Specific [place] Urine Protein Urine Glucose (UA) Urine Ketones Urine Blood Urine Nitrite Ur Leukocyte Esterase Urine RBC Urine WBC Ur Squamous Epith Cells Urine Bacteria Hyaline Casts COVID-19 (JOSE) COVID-19 [facility] 05/26/22 05/26/22 07:11 07:11 MCV 92.1 MCH 32.7 MCHC 35.5 RDW 12.1 Plt Count 132 L MPV 10.9 Immature Gran % (Auto) Neut % (Auto) Lymph % (Auto) [place] % (Auto) Eos % (Auto) Baso % (Auto) Lymph # (Auto) [place] # (Auto) Eos # (Auto) Baso # (Auto) Abs Immat Gran (auto) Absolute Neuts (auto) Absolute Nucleated RBC 0.000 Nucleated RBC % (auto) 0.0 PT INR APTT Anion Gap 15 Estim Creat Clear Calc 104.8 Estimated GFR > 60 POC Glucose Random Glucose Fasting Glucose 227 H Lactic Acid Lactic Acid F/U @ 2Hr Lactic Acid F/U @ 4Hr Calcium 8.4 Magnesium 1.6 Total Bilirubin Direct Bilirubin AST ALT Alkaline Phosphatase Troponin I High Sens Total Protein Albumin Lipase Urine Color Urine Appearance Urine pH Ur Specific [place] Urine Protein Urine Glucose (UA) Urine Ketones Urine Blood Urine Nitrite Ur Leukocyte Esterase Urine RBC Urine WBC Ur Squamous Epith Cells Urine Bacteria Hyaline Casts COVID-19 (JOSE) COVID-19 Clin Com Assessment and Plan (1) Fever: Status: Acute Plan 62M with past medical history of diabetes type 2, peripheral vascular disease status post bilateral BKA, peripheral neuropathy, MGUS, morbid obesity, KASSANDRA, mood disorder, hypertension, pulmonary embolism, copd, presented with chills Severe sepsis present on admission due to UTI Follow-up urine and blood cultures IV ceftriaxone Diabetes Basal bolus insulin Monitor point of cares Hold orals COPD Stable, inhalers as needed Peripheral vascular disease Aspirin, Eliquis, statin History of pulmonary embolism Eliquis Morbid obesity complicated by obstructive sleep apnea Weight loss BiPAP at night Mood disorder Venlafaxine Peripheral neuropathy Gabapentin Full code reason for continued hospitalization:awaiting defervenscence and cultures Quality Stroke Does the patient have a stroke diagnosis?: No VTE Prior VTE?: Yes VTE Risk Level:: Medical - moderate - high VTE Device Contraindication: Treatment Not Indicated VTE Drug Contraindication: N/A - Med Ordered
[2022-05-26 12:29] LABS: Glucose, Whole Blood 263 mg/dL (60-115)
--- NOTE | 2022-05-26 12:54 | MHC.CM.PN ---
CM spoke with Patient over the phone at [phone] and addressed IMM with him. Patient lives alone in an apartment and he uses both a walker & w/c to assist with mobility (Bilateral BKA). Patient receives a Homemaker from [facility] that his insurance pays for, he has a CM in his Building, and he receives support from [facility] in [place].Home/resume said services is the goal and CM has initiated and will follow for dc planning. Patient has received Covid vax X4 and his PCP is Dr. Smith @ [facility] in [place].
[2022-05-26 15:20] VITALS: BP 146/66; PULSE 87; RESP 18; TEMP 38.1; O2SAT 94
[2022-05-26 17:21] LABS: Glucose, Whole Blood 282 mg/dL (60-115)
[2022-05-26] MEDS: Insulin Glargine,Hum.rec.anlog 100 UNIT/ML 10 ML VIAL 15 UNIT SUBCUT (20:56)
[2022-05-26 21:15] VITALS: BP 125/72; PULSE 75; RESP 18; TEMP 36.7; O2SAT 95
[2022-05-27] VITALS: BP 111/60; PULSE 62; RESP 18; TEMP 36.5; O2SAT 99
[2022-05-27 03:52] VITALS: BMI 37.4
[2022-05-27 04:00] VITALS: BP 130/74; PULSE 60; RESP 18; TEMP 36.4; O2SAT 97
[2022-05-27] MEDS: cefTRIAXone sodium 1 GM in 0.9 % Sodium Chloride 50 ML IV (05:18)
[2022-05-27 07:11] LABS: Hematocrit 36.8 % (42.0-52.0); Mean Corpuscular HGB Conc 35.3 g/dl (31.0-36.0); Mean Corpuscular Hemoglobin 32.7 pg (27.0-33.0); Mean Corpuscular Volume 92.5 fL (80.0-98.0); Mean Platelet Volume 11.1 fL (9.4-12.4); Platelet Count 118 X10*3/uL (160-400); Red Blood Count 3.98 X10*6/uL (4.60-5.80); Red Cell Distribution Width 12.3 % (11.0-16.0)
[2022-05-27 07:28] VITALS: BP 137/69; PULSE 98; RESP 20; TEMP 36.6; O2SAT 94
[2022-05-27 07:32] LABS: Anion Gap 21 (12-20); Blood Urea Nitrogen 22 mg/dL (9-16); Calcium 8.6 mg/dL (8.4-10.2); Carbon Dioxide 20 mmol/L (22-29); Chloride 101 mmol/L (96-108); Creatinine Clr Calc Pharmacy 101.3; Estimated Glomerular Filt Rate > 60; Glucose Fasting 181 mg/dL (60-99); Potassium 4.5 mmol/L (3.3-5.1); Sodium 137 mmol/L (135-145)
[2022-05-27 07:55] LABS: Glucose, Whole Blood 201 mg/dL (60-115)
[2022-05-27] MEDS: Apixaban 5 MG TABLET PO (08:12)
[2022-05-27] MEDS: Atorvastatin Calcium 40 MG TABLET PO (08:12)
[2022-05-27] MEDS: Cholecalciferol (Vitamin D3) 25 MCG TABLET PO (08:12)
[2022-05-27] MEDS: lisinopriL 10 MG TABLET PO (08:12)
[2022-05-27] MEDS: Magnesium Oxide 400 MG TABLET PO (08:12)
[2022-05-27] MEDS: Gabapentin 600 MG TABLET PO ×2 (08:12→14:49)
[2022-05-27] MEDS: Venlafaxine HCl ER 150 MG CAP.ER.24H PO (08:12)
[2022-05-27] MEDS: Aspirin Enteric Coated 81 MG TABLET.DR PO (08:12)
[2022-05-27] MEDS: 0.9 % Sodium Chloride Flush 3 ML SYRINGE IVFLUSH (08:13)
[2022-05-27] MEDS: Insulin Lispro 100 UNIT/ML 3 ML VIAL SUBCUT ×4 (08:13→16:29)
[2022-05-27 11:40] VITALS: BP 122/72; PULSE 79; RESP 18; TEMP 36.9; O2SAT 95
[2022-05-27 11:44] LABS: Glucose, Whole Blood 352 mg/dL (60-115)
--- NOTE | 2022-05-27 12:09 | PM.DS ---
DS: Providers Provider Date of Service: 05/27/22 Date of admission: 05/25/22 15:48 Primary care physician: Unknown Physician DS: Diagnosis Discharge Diagnosis (1) Fever: Status: Acute (2) Vomiting: Status: Acute (3) Acidosis, lactic: Status: Acute (4) Hypomagnesemia: Status: Acute (5) Severe sepsis: Status: Acute (6) UTI (urinary tract infection): Status: Acute DS: Summary Hospital Course Hospital Course: admission note HPI 62M with past medical history of diabetes type 2, peripheral vascular disease status post bilateral BKA, peripheral neuropathy, MGUS, morbid obesity, KASSANDRA, mood disorder, hypertension, pulmonary embolism presented with 1 day of chills.? Patient reports that he was feeling well on morning prior to presentation.? Then in the evening started to feel cold and chills.? He went to sleep and in the night started to have chills again.? He denies any shortness of breath, chest pain, abdominal pain, diarrhea.? He does note urinary frequency without dysuria, with poor emptying and difficulty starting stream.? In ED patient noted to have sepsis with fever, tachycardia.? Chest x-ray unremarkable, urine pending. Hospital course The patient was admitted to the hospital for evaluation of severe sepsis. Found to have evidence of urinary tract infection As chest x-ray came back negative. treated with IV ceftriaxone with good response as his symptoms resolved. Blood and urine culture came back negative. Will be discharged on Ceftin to finish total of 5 days of antibiotics. Noted to have hypomagnesemia you had received IV replacement with good response. The patient developed leukopenia as a result of severe sepsis most likely. To be followed as outpatient with CBC. Continue antibiotic as prescribed come back to the hospital for any worsening fever, chills or generalized weakness. Time Spent with Patient Time attestation: Total time spent providing and/or coordinating discharge services: Discharge coordination time: Greater than 30 minutes Quality: Safe Use of Opioids Does Pt have an Active Cancer Diagnosis on the Problem List?: No Quality: Stroke Does the patient have a stroke diagnosis?: No Physical Exam Vital Signs: Vital Signs: Last Vital Signs Temp 98.5 F 05/27/22 11:40 Pulse 79 05/27/22 11:40 Resp 18 05/27/22 11:40 BP 122/72 05/27/22 11:40 Pulse Ox 95 05/27/22 11:40 O2 Del Method 05/27/22 11:40 BMI result Body Mass Index 37.4 Const: Other: Constitutional : Alert, interactive, not in distress Neck : Normal inspection, Supple Cardiovascular : RRR, no JVP, no lower extremity edema Respiratory : fair bilateral air entry, no crackles, wheezes or rhonchi Gastrointestinal: soft, lax, Normal bowel sounds, Non tender Skin : Warm, Dry Extremities: bilateral BKA Neurological : Alert & oriented x3, No focal deficit DS: Data Data Completed and Pending Completed studies during hospitalization [Text1]: Procedures Assistance with Respiratory Ventilation, Less than 24 Consecutive Hours, Continuous Positive Airway Pressure (10/10/20) Detachment at Left 1st Toe, Complete, Open Approach (12/23/20) Detachment at Left Lower Leg, Mid, Open Approach (12/23/20) Detachment at Right 1st Toe, Complete, Open Approach (09/05/20) Detachment at Right 1st Toe, High, Open Approach (09/05/20) Detachment at Right Foot, Partial 1st Ray, Open Approach (10/10/20) Detachment at Right Foot, Partial 2nd Ray, Open Approach (10/10/20) Detachment at Right Foot, Partial 3rd Ray, Open Approach (10/10/20) Detachment at Right Foot, Partial 4th Ray, Open Approach (10/10/20) Detachment at Right Foot, Partial 5th Ray, Open Approach (10/10/20) Detachment at Right Lower Leg, Mid, Open Approach (10/10/20) Dilation of Right Posterior Tibial Artery, Percutaneous Approach (09/05/20) Drainage of Left Lower Leg, Percutaneous Approach (12/13/21) Fluoroscopy of Aorta and Bilateral Lower Extremity Arteries (12/23/20) Insertion of Infusion Device into Superior Vena Cava, Percutaneous Approach (12/13/21) Transfusion of Nonautologous Platelets into Peripheral Vein, Percutaneous Approach (09/05/20) Transfusion of Nonautologous Red Blood Cells into Peripheral Vein, Percutaneous Approach (12/23/20) Ultrasonography of Superior Vena Cava, Guidance (12/13/21) Labs on day of discharge: Laboratory Results - last 24 hr 05/26/22 05/26/22 05/27/22 12:12 17:18 06:00 WBC 3.0 L RBC 3.98 L Hgb 13.0 L Hct 36.8 L MCV 92.5 MCH 32.7 MCHC 35.3 RDW 12.3 Plt Count 118 L MPV 11.1 Absolute Nucleated RBC 0.000 Nucleated RBC % (auto) 0.0 Sodium Potassium Chloride Carbon Dioxide Anion Gap BUN Creatinine Estim Creat Clear Calc Estimated GFR POC Glucose 263 H 282 H Fasting Glucose Calcium 05/27/22 05/27/22 05/27/22 06:00 07:26 11:37 WBC RBC Hgb Hct MCV MCH MCHC RDW Plt Count MPV Absolute Nucleated RBC Nucleated RBC % (auto) Sodium 137 Potassium 4.5 Chloride 101 Carbon Dioxide 20 L Anion Gap 21 H BUN 22 H Creatinine 1.02 Estim Creat Clear Calc 101.3 Estimated GFR > 60 POC Glucose 201 H 352 H* Fasting Glucose 181 H Calcium 8.6 Preliminary micro results at discharge 05/25/22 13:10 Blood Culture - Preliminary Blood - Venous No growth after 24 hours. 05/25/22 13:10 Blood Culture - Preliminary Blood - Venous No growth after 24 hours. Imaging Chest x-ray: Radiologist's impression: ITS Impressions Chest X-Ray 05/25/22 13:33 IMPRESSION: Low lung volumes with no acute pulmonary finding. Discharge Plan Discharge Anticipated Discharge Date/Time: 05/27/22 12:05 Patient Disposition: Home Health Service Discharge Diagnosis: Urinary tract infection, sepsis Referrals: Physician,Unknown J [Primary Care Provider] - 1 Week Discharge Medications: New cefuroxime axetil 500 mg tablet 500 mg PO BID Qty: 6 0RF Continued atorvastatin 40 mg tablet 40 mg PO DAILY Hold Instructions: Resume on 05/24/21. hold while on daptomycin Eliquis 5 mg tablet 1 tab PO BID albuterol sulfate 90 mcg/actuation Hfa Aerosol Inhaler 2 puff INHALATION Q4-6H PRN (Reason: Shortness Of Breath) gabapentin 600 mg tablet 600 mg PO TID aspirin 81 mg tablet,delayed release (DR/EC) 81 mg PO DAILY metformin 1,000 mg tablet 1,000 mg PO BID Victoza 3-Chet 0.6 mg/0.1 mL (18 mg/3 mL) pen injector 1.8 mg subcut DAILY cholecalciferol (vitamin D3) 25 mcg (1,000 unit) tablet 25 mcg PO DAILY Tresiba FlexTouch U-100 100 unit/mL (3 mL) insulin pen 30 unit subcut BID magnesium oxide 400 mg (241.3 mg magnesium) tablet 400 mg PO DAILY polyethylene glycol 3350 17 gram powder in packet 17 g PO MOWEFR@0900 PRN (Reason: Constipation) insulin aspart U-100 [Novolog Flexpen U-100 Insulin] 100 unit/mL (3 mL) insulin pen 5 - 15 unit subcut TIDAC Rx Instructions: Per sliding scale (DME) lancets [FreeStyle Lancets] 28 gauge misc See Rx Instructions topical QID Qty: 100 Rx Instructions: As directed hydroxyzine HCl 10 mg tablet 10 mg PO BID PRN (Reason: Anxiety) lisinopril 10 mg tablet 10 mg PO DAILY (DME) FreeStyle Lite Strips Strip See Rx Instructions .ROUTE QID Qty: 10 Rx Instructions: As directed alcohol swabs [Alcohol Prep Pads] Pads, Medicated 1 pad topical QID venlafaxine 150 mg capsule,extended release 24hr 150 mg PO DAILY Trulance 3 mg tablet 3 mg PO DAILY 30 Days Qty: 30 6RF (DME) FreeStyle Pablo 2 Sensor Kit See Rx Instructions .ROUTE .MEDSUPPLY Qty: 1 Rx Instructions: As directed (DME) pen needle, diabetic [BD Ultra-Fine Short Pen Needle] 31 gauge x 5/16 needle See Rx Instructions subcut .MEDSUPPLY Qty: 1200 Rx Instructions: As directed (DME) FreeStyle Pablo 2 [place] Misc See Rx Instructions .ROUTE .MEDSUPPLY Qty: 1 Rx Instructions: As directed Discharge Orders: Discharge Order (Routine); Ordered 05/27/22 Ordered By: Cristhian Gatica Diet: Advance to usual diet Activity on Discharge: As tolerated Stand Alone Forms: Patient Portal Discharge page Other Ambulatory Orders: Complete Blood Count no Diff (Routine) Timeframe: 1 Week Facility: [facility] - Location: [address] [place] [address]-Lab Ordered By: Cristhian Gatica Care Plan Goals: Read below Health Concerns: Read below Plan of Treatment: Read below Assessment: you have presented to the hospital complaining of chills and fever. Found to be septic and result of urine infection. Treated with IV antibiotics as both urine and blood cultures came back negative. You felt significant improvement and will be discharged to finish 3 more days of antibiotic Ceftin. Continue antibiotic as prescribed Please come back to the hospital for any worsening fever, chills or generalized weakness. Discharge Date/Time: 05/27/22 19:15
[2022-05-27 14:58] VITALS: BP 140/64; PULSE 69; RESP 18; TEMP 36.1; O2SAT 94
--- NOTE | 2022-05-27 15:02 | MHC.CM.PN ---
CALL TO [facility] [phone] TIME SCHEDULE FOR 1700 ANKIT WILL RUN INSURANCES IF THERE ARE ANY ISSUES, SHE WILL CALL THIS ACTUARIAL CLERK BACK. OTHERWISE, UNIT CAN EXPECT TRANSPORT SCHEDULED. RN AND PATIENT AWARE
--- NOTE | 2022-05-27 15:08 | MHC.CM.PN ---
[facility] RN GEORGE [phone] AWARE OF DC.
[2022-05-27 15:34] LABS: Glucose, Whole Blood 307 mg/dL (60-115)
== END 2022-05-27 19:15 | disposition home health service (06) | DRG 872 ==
LOC: HO.ED 15:35 → HO.EDOVER 15:57 → HO.S3 05-26 17:28
PROVIDERS: Admitting Provider Internal Medicine; Emergency Provider Emergency Medicine; PCP Internal Medicine; Visit Provider Student in an Organized Health Care Education/Training Program
DX: A41.9 Sepsis, unspecified organism (principal); E87.20 Acidosis, unspecified; R65.20 Severe sepsis without septic shock; E83.42 Hypomagnesemia; E11.51 Type 2 diabetes mellitus with diabetic peripheral angiopathy without gangrene; J44.9 Chronic obstructive pulmonary disease, unspecified; E66.01 Morbid (severe) obesity due to excess calories; E11.42 Type 2 diabetes mellitus with diabetic polyneuropathy; G47.33 Obstructive sleep apnea (adult) (pediatric); F41.9 Anxiety disorder, unspecified; F32.A Depression, unspecified; Z68.37 Body mass index [BMI] 37.0-37.9, adult; Z86.718 Personal history of other venous thrombosis and embolism; Z89.512 Acquired absence of left leg below knee; Z89.511 Acquired absence of right leg below knee; Z20.822 Contact with and (suspected) exposure to COVID-19; Z88.1 Allergy status to other antibiotic agents; Z79.4 Long term (current) use of insulin; Z79.01 Long term (current) use of anticoagulants; Z79.82 Long term (current) use of aspirin; Z79.84 Long term (current) use of oral hypoglycemic drugs; Z79.899 Other long term (current) drug therapy
CPT/HCPCS: 36415; 71045; 80048; 80076; 81001; 81003; 82947; 83605; 83690; 83735; 84484; 85025; 85027; 85610; 85730; 87040; 87086; 87635; 93005; 94660; 96361; 96365; 96375; 99285; J0692; J0696; J2405; J3475

== ENCOUNTER 2022-08-13 09:56 | Day surgery (SDC) | payer OTHER, SELFPAY ==
--- NOTE | 2022-08-12 13:06 | P.CONAN_ITS ---
Documented by User: Alize Lester NP 08/12/22 13:13 HPI - Anesthesia Eval Consult details Narrative: 62yo [place] [facility] [place] with urosepsis bilat BKA PMFSH Active Problems Active Problems: All Active Problems (Updated 06/04/22 @ 00:04 by Background Daemon) Leukopenia (Acute) UTI (urinary tract infection) (Acute) Severe sepsis (Acute) Hematoma (Acute) Acute osteomyelitis (Acute) Generalized weakness (Acute) Anemia (Acute) Constipation (Acute) MRSA infection (Acute) Hyperkalemia (Acute) S/P bilateral below knee amputation (Acute) Bipolar disorder (Acute) Latent tuberculosis (Acute) Lumbar degenerative disc disease (Acute) Peripheral arterial disease (Acute) Tubular adenoma of colon (Acute) Family history of colon cancer (Acute) Osteomyelitis (Acute) Sleep apnea (Acute) Past Medical History Medical History (Updated 08/12/22 @ 13:09 by Alize Lester NP) Abscess CIRILO (acute kidney injury) Amputated great toe of right foot Anxiety and depression Back pain Cellulitis COPD (chronic obstructive pulmonary disease) Diabetes Diabetic foot infection Drug-induced thrombocytopenia Hx MRSA infection Hyperlipidemia Hypertension Hyponatremia IDDM (insulin dependent diabetes mellitus) MGUS (monoclonal gammopathy of unknown significance) Neck pain Non-healing amputation site Obesity Peripheral neuropathy Psychiatric diagnosis Pulmonary embolism PVD (peripheral vascular disease) Sleep apnea Family History Family History Other No history of heart disease Family history of problems with anesthesia: No Surgical History Surgical History H/O abdominoplasty H/O colonoscopy Hx of angioplasty Hx of appendectomy Hx of foot surgery Hx of tonsillectomy Hx of umbilical hernia repair S/P anal fissurectomy S/P BKA (below knee amputation) bilateral Status post below-knee amputation History of Problems with Anesthesia: No Social History Social History Household Members: None Housing: House Do you presently have visiting nurse or other home services: Yes ([facility]) Alcohol intake: former Patient Tobacco Use Status: Former Tobacco user Quit Date: 30 YEARS AGO Tobacco use type: Cigarette e-Cigarette/Vaping Use: Former Use Second Hand Smoke Exposure: No Advance Directives Date on File: 09/27/20 service: Yes Current occupational status: disabled Meds Allergies Allergy/AdvReac Type Severity Reaction Status Date / Time vancomycin AdvReac Severe thrombocyto Verified 04/21/22 11:11 penia Home Medications Medication Instructions Recorded Confirmed Last Taken Type aspirin 81 mg tablet,delayed 81 mg PO DAILY 07/17/20 05/25/22 05/24/22 History release gabapentin 600 mg tablet 600 mg PO TID 07/17/20 05/25/22 05/24/22 History liraglutide 0.6 mg/0.1 mL (18 mg/3 1.8 mg subcut DAILY 07/17/20 05/25/22 05/24/22 History mL) subcutaneous pen injector ([place] Metechtoza 3-Chet) metformin 1,000 mg tablet 1,000 mg PO BID 07/17/20 05/25/22 05/24/22 History cholecalciferol (vitamin D3) 25 25 mcg PO DAILY 09/04/20 05/25/22 05/24/22 History mcg (1,000 unit) tablet atorvastatin 40 mg tablet 40 mg PO DAILY 10/09/20 05/25/22 05/24/22 History insulin degludec 100 unit/mL (3 30 unit subcut BID 12/23/20 05/25/22 05/24/22 H istory mL) subcutaneous pen (Tresiba FlexTouch U-100 insulin) lancets 28 gauge (FreeStyle #100 ea 03/20/21 05/24/22 History Lancets) albuterol sulfate 90 mcg/actuation 2 puff inhalation Q4-6H PRN 04/10/21 05/25/22 05/24/22 History aerosol inhaler Shortness Of Breath apixaban 5 mg tablet (Eliquis) 1 tab PO BID 04/10/21 05/25/22 05/24/22 History polyethylene glycol 3350 17 gram 17 g PO MOWEFR@0900 PRN 12/13/21 05/25/22 05/24/22 History oral powder packet Constipation flash glucose sensor (FreeStyle #1 ea 01/01/22 05/24/22 History Pablo 2 Sensor kit) pen needle, diabetic 31 gauge x #1,200 huong 01/01/22 05/24/22 History 5/16 (BD Ultra-Fine Short Pen Needle) hydroxyzine HCl 10 mg tablet 10 mg PO BID PRN Anxiety 01/30/22 05/25/22 05/24/22 History flash glucose scanning reader #1 ea 02/03/22 05/24/22 History (FreeStyle Pablo 2 [place]) alcohol swabs (Alcohol Prep Pads) 1 pad topical QID 04/21/22 05/24/22 History blood sugar diagnostic (FreeStyle #10 ea 04/21/22 05/24/22 History Lite Strips) insulin aspart U-100 100 unit/mL 5 - 15 unit subcut TIDAC 04/21/22 05/25/22 05/24/22 History (3 mL) subcutaneous pen (Novolog Flexpen U-100 Insulin aspart) lisinopril 10 mg tablet 10 mg PO DAILY 04/21/22 05/25/22 05/24/22 History magnesium oxide 400 mg (241.3 mg 400 mg PO DAILY 04/21/22 05/25/22 05/24/22 History magnesium) tablet venlafaxine 150 mg 150 mg PO DAILY 04/21/22 05/25/22 05/24/22 History capsule,extended release 24 hr Exam Exam Date and Time: August 12, 2022 1306 Pertinent Lab Results Pertinent Lab Results: Laboratory Tests 05/27/22 05/27/22 06:00 06:00 WBC 3.0 L Hgb 13.0 L Hct 36.8 L Plt Count 118 L Sodium 137 Potassium 4.5 Chloride 101 Carbon Dioxide 20 L BUN 22 H Creatinine 1.02 Narrative Narrative: EKG 05/2022 Vent. Rate : 115 BPM ? ? Atrial Rate : 115 BPM ?? P-R Int : 196 ms? QRS Dur : 076 ms ? ? QT Int : 310 ms ? ? ? P-R-T Axes : 034 -36 061 degrees ?? QTc Int : 428 ms ? Sinus tachycardia Left axis deviation Abnormal ECG When compared with ECG of 26-SEP-2021 11:36, Vent. rate has increased BY? 41 BPM ECHO 2020 Conclusions: - The left ventricular systolic function is hyperdynamic.? The ? visually estimated ejection fraction is >70%.? - Normal right ventricular cavity size and systolic function.? ? - Inadequate assessment of aortic and pulmonic valves. No obvious vegetation noticed on visualized valves. ? - Consider a CALI if clinically appropriate.? XR chest 1V 05/2022 IMPRESSION: Low lung volumes with no acute pulmonary finding. Assessment and Plan Assessment Anesthesia Assessment: Chart Reviewed Final Anesthetic Review Family History of Problems with Anesthesia: No History of Problems with Anesthesia: No Documented by User: Danny Madison MD 08/13/22 14:33 HPI - Anesthesia Eval Consult details Narrative: 62yo [place] Colon[place] [facility] [place] with urosepsis bilat BKA As per patient has h/o PE and is on anti coagulation PMFSH Past Medical History Medical History (Updated 08/12/22 @ 13:09 by Alize Lester NP) Abscess CIRILO (acute kidney injury) Amputated great toe of right foot Anxiety and depression Back pain Cellulitis COPD (chronic obstructive pulmonary disease) Diabetes Diabetic foot infection Drug-induced thrombocytopenia Hx MRSA infection Hyperlipidemia Hypertension Hyponatremia IDDM (insulin dependent diabetes mellitus) MGUS (monoclonal gammopathy of unknown significance) Neck pain Non-healing amputation site Obesity Peripheral neuropathy Psychiatric diagnosis Pulmonary embolism PVD (peripheral vascular disease) Sleep apnea Family History Family History Other No history of heart disease Surgical History Surgical History H/O abdominoplasty H/O colonoscopy Hx of angioplasty Hx of appendectomy Hx of foot surgery Hx of tonsillectomy Hx of umbilical hernia repair S/P anal fissurectomy S/P BKA (below knee amputation) bilateral Status post below-knee amputation Social History Social History Household Members: None Housing: House Do you presently have visiting nurse or other home services: Yes ([facility]) Alcohol intake: former Patient Tobacco Use Status: Former Tobacco user Quit Date: 30 YEARS AGO Tobacco use type: Cigarette e-Cigarette/Vaping Use: Former Use Second Hand Smoke Exposure: No Advance Directives Date on File: 09/27/20 service: Yes Current occupational status: disabled Meds Allergies Allergy/AdvReac Type Severity Reaction Status Date / Time vancomycin AdvReac Severe thrombocyto Verified 04/21/22 11:11 penia Home Medications Medication Instructions Recorded Confirmed Last Taken Type aspirin 81 mg tablet,delayed 81 mg PO DAILY 07/17/20 05/25/22 05/24/22 History release gabapentin 600 mg tablet 600 mg PO TID 07/17/20 05/25/22 05/24/22 History liraglutide 0.6 mg/0.1 mL (18 mg/3 1.8 mg subcut DAILY 07/17/20 05/25/22 05/24/22 History mL) subcutaneous pen injector (Victoza 3-Chet) metformin 1,000 mg tablet 1,000 mg PO BID 07/17/20 05/25/22 05/24/22 History cholecalciferol (vitamin D3) 25 25 mcg PO DAILY 09/04/20 05/25/22 05/24/22 History mcg (1,000 unit) tablet atorvastatin 40 mg tablet 40 mg PO DAILY 10/09/20 05/25/22 05/24/22 History insulin degludec 100 unit/mL (3 30 unit subcut BID 12/23/20 05/25/22 05/24/22 History mL) subcutaneous pen (Tresiba FlexTouch U-100 insulin) lancets 28 gauge (FreeStyle #100 ea 03/20/21 05/24/22 History Lancets) albuterol sulfate 90 mcg/actuation 2 puff inhalation Q4-6H PRN 04/10/21 05/25/22 05/24/22 History aerosol inhaler Shortness Of Breath apixaban 5 mg tablet (Eliquis) 1 tab PO BID 04/10/21 05/25/22 05/24/22 History polyethylene glycol 3350 17 gram 17 g PO MOWEFR@0900 PRN 12/13/21 05/25/22 05/24/22 History oral powder packet Constipation flash glucose sensor (FreeStyle #1 ea 01/01/22 05/24/22 History Pablo 2 Sensor kit) pen needle, diabetic 31 gauge x #1,200 ea 01/01/22 05/24/22 History 5/16 (BD Ultra-Fine Short Pen Needle) hydroxyzine HCl 10 mg tablet 10 mg PO BID PRN Anxiety 01/30/22 05/25/22 05/24/22 History flash glucose scanning reader #1 ea 02/03/22 05/24/22 History (FreeStyle Pablo 2 [place]) alcohol swabs (Alcohol Prep Pads) 1 pad topical QID 04/21/22 05/24/22 History blood sugar diagnostic (FreeStyle #10 ea 04/21/22 05/24/22 History Lite Strips) insulin aspart U-100 100 unit/mL 5 - 15 unit subcut TIDAC 04/21/22 05/25/22 05/24/22 History (3 mL) subcutaneous pen (Novolog Flexpen U-100 Insulin aspart) lisinopril 10 mg tablet 10 mg PO DAILY 04/21/22 05/25/22 05/24/22 History magnesium oxide 400 mg (241.3 mg 400 mg PO DAILY 04/21/22 05/25/22 05/24/22 History magnesium) tablet venlafaxine 150 mg 150 mg PO DAILY 04/21/22 05/25/22 05/24/22 History capsule,extended release 24 hr Exam Airway Mallampati Class: IV TM Dist: >3cm Neck ROM: Full Loose/Missing/Broken Teeth: Yes Heart: S1,S2 Lungs: distant breath sounds Assessment and Plan Assessment Anesthesia Assessment: Anesthesia Plan Discussed Final Anesthetic Review ASA Class: IV Final Preanesthetic Review: Meds/Allgs Chart Reviewed, Consent Obtained/Reviewed and Anes Risks/Benef Reviewed Patient Risk: High Procedure Risk: Intermediate Anesthetic Plan Anesthetic Plan: MAC: Disposition: Standard PACU
--- NOTE | 2022-08-13 10:01 | MHC.SHP ---
Pre-Procedural Eval Section A Date of Service: 08/13/22 Section B Chief Complaint: constipation,benign neoplasm of colon Relevant Family History (Specify if Yes): No Relevant Social History: None Present Medications: see Short Stay Collaborative assessment Medical History: Significant History (Abscess CIRILO (acute kidney injury) Amputated great toe of right foot Anxiety and depression Back pain Cellulitis COPD (chronic obstructive pulmonary disease) Diabetes Diabetic foot infection Drug-induced thrombocytopenia Hx MRSA infection Hyperlipidemia Hypertension Hyponatremia IDDM (insulin depende) History of Previous Operations: Relevant previous surgery/procedure and date(s) (H/O abdominoplasty H/O colonoscopy Hx of angioplasty Hx of appendectomy Hx of foot surgery Hx of tonsillectomy Hx of umbilical hernia repair S/P anal fissurectomy S/P BKA (below knee amputation) bilateral Status post below-knee amputation) Allergies: Allergies Allergy/AdvReac Type Severity Reaction Status Date / Time vancomycin AdvReac Severe thrombocyto Verified 04/21/22 11:11 penia Review of Systems Sugical H&P ROS: Negative: Constitution, Cardiovascular, Respiratory, Neurological, Psychiatric, Hem-Onc, Allergic/Immunologic, Gastrointestinal, Genitourinary, Musculoskeletal, Integumentary, Endocrine and Eyes/Ears/Nose/Throat Exam Surgical H&P Exam: Normal: HEENT, Normal: Heart, Normal: Lungs, Normal: Abdomen, Normal: Skin and Normal: Neurological and Significant Findings: Extremities (amputation) Plan Diagnosis/Plan: Unchanged I have reviewed the history and physical and performed a pertinent physical examination on my patient. No changes have occurred unless specified. Time Spent With Patient Time: Total time managing care of this patient today ____ minutes.
[2022-08-13 10:46] VITALS: BMI 47.6
--- NOTE | 2022-08-13 10:51 | W.PM.OPN ---
Operative Note Operative Note Date of Service: 08/13/22 Narrative: Operative Information Procedure Description: Colonoscopy Indication: constipation Anesthesia: MAC COLONOSCOPY Instrument: Olympus variable stiffness pediatric scope 190L Colonoscopy Monitoring: Vital signs and clinical assessment, continuous EKG monitoring, Pulse oximetry, Carbon Dioxide monitoring and blood pressure monitoring were done throughout the procedure. Colon withdrawal time was 6 minutes. Procedure: The patient was placed in the left lateral decubitis position and pre-procedure medications were administered. After a digital rectal examination of the ano-rectum, the video colonoscope was inserted into the rectum and advanced through the colon to the cecum/TI. The colonoscope was slowly withdrawn in a retrograde panoramic fashion and the colon mucosa was carefully examined including a retroflexed view of the rectum. Findings and interventions are described below. Procedure Difficulty: moderate Findings: Terminal Ileum-not seen Cecum: unable to see Ascending Colon: normal Transverse Colon -normal Descending Colon:normal Sigmoid Colon: normal Rectum: Retroflexion not done, poor prep, internal hemorrhoids seen on anterior view Anorectum - normal Colon preparation: Lewis Bowel Preparation Scale Right colon; 0 Transverse colon: 1 Left colon; 1 (0 = Unprepared colon segment with mucosa not seen due to solid stool that cannot be cleared. 1 = Portion of mucosa of the colon segment seen, but other areas of the colon segment not well seen due to staining, residual stool and/or opaque liquid. 2 = Minor amount of residual staining, small fragments of stool and/or opaque liquid, but mucosa of colon segment seen well. 3 = Entire mucosa of colon segment seen well with no residual staining, small fragments of stool or opaque liquid) Impression and Post Procedure Diagnosis: poor prep internal hemorrhoids Plan: High fiber diet leaflet Avoid straining at stool, epsom salts and sitz bath, anusol supps or cream Repeat Colonoscopy in 6-12 months or earlier if clinically indicated, next time consider 2 d clears, can use Mag citrate as well in addition to standard prep Above findings were reviewed with the patient and relevant handouts were provided if indicated.
[2022-08-13 10:53] LABS: Glucose, Whole Blood 179 mg/dL (60-115)
[2022-08-13 10:59] VITALS: BP 145/84; PULSE 74; RESP 16; TEMP 36.4; O2SAT 94
[2022-08-13] MEDS: Lactated Ringers 1,000 ML 50 ML IVCONT (11:00)
[2022-08-13 11:49] VITALS: BP 124/65; PULSE 75; RESP 16; TEMP 36.9; O2SAT 97
[2022-08-13 12:06] VITALS: BP 143/78; PULSE 67; RESP 16; TEMP 36.9; O2SAT 95
== END 2022-08-13 13:52 | disposition home or self-care (01) ==
PROVIDERS: PCP Internal Medicine; Visit Provider Internal Medicine Gastroenterology
PROC: 0DJD8ZZ Inspection of Lower Intestinal Tract, Via Natural or Artificial Opening Endoscopic (ICD-10-PCS; CPT 45378; principal; 2022-08-13 11:00)
DX: K59.00 Constipation, unspecified (principal); Z86.010 Personal history of colon polyps; K64.8 Other hemorrhoids; G47.30 Sleep apnea, unspecified; J44.9 Chronic obstructive pulmonary disease, unspecified; D47.2 Monoclonal gammopathy; E11.9 Type 2 diabetes mellitus without complications; E78.5 Hyperlipidemia, unspecified; I10 Essential (primary) hypertension; I73.9 Peripheral vascular disease, unspecified; Z79.4 Long term (current) use of insulin; Z79.899 Other long term (current) drug therapy; Z88.1 Allergy status to other antibiotic agents; Z89.512 Acquired absence of left leg below knee; Z89.511 Acquired absence of right leg below knee; Z86.14 Personal history of Methicillin resistant Staphylococcus aureus infection; Z86.15 Personal history of latent tuberculosis infection; Z87.891 Personal history of nicotine dependence
CPT/HCPCS: 45378; 82947

== ENCOUNTER 2022-09-09 11:48 | Inpatient (IN) | payer OTHER, SELFPAY ==
[2022-09-09] VITALS (7 sets, daily range): BP systolic 104–146; BP diastolic 67–83; PULSE 95–112; RESP 16–20; TEMP 36.9–37.5; O2SAT 93–100; BMI 55.2
--- NOTE | ~2022-09-09 | CT_ITS ---
EXAMINATION: CTA OF THE HEAD AND NECK CLINICAL INFORMATION: Right arm weakness. COMPARISON: Brain MRI dated 09/26/2021. TECHNIQUE: Test bolus sequences followed by intravenous administration 70 mL of Omnipaque 350. Helical imaging was performed in the axial plane from the mediastinum to the skull vertex. Delayed postcontrast imaging of the head was also performed. The data was processed at the dental technologist's workstation for generation of MIP sequences. Three-dimensional volume rendered reformatted images were also generated at an offline 3-D workstation. Stenoses are assessed in accordance with NASCET criteria unless otherwise indicated. This CT examination was performed using dose optimization techniques as appropriate, variously including the following: *Automated exposure control *Adjustment of mA and/or kV according to patient size (this includes techniques or standardized protocols for targeted exams where dose is matched to indication/reason for exam; i.e. extremities or head) *Use of iterative reconstruction technique DLP: 2951 mGy-cm. FINDINGS: CT head: There is no evidence of acute intracranial hemorrhage or territorial infarction. There is no loss of montes to white matter differentiation. No abnormal mass effect or midline shift is seen. No extra-axial fluid collections are identified. 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 There is no abnormal enhancement. The ventricles are normal in size. There is no abnormal attenuation within the brain parenchyma. The osseous structures and soft tissues are normal. The mastoid air cells and visualized portions of the paranasal sinuses are well aerated. CTA neck: The imaged aortic arch and origins of the great vessels are normal. The common carotid arteries are widely patent. The carotid bifurcations are normal. The cervical internal carotid arteries are normal. The vertebral arteries opacify normally and are of normal caliber. The soft tissues of the neck are unremarkable. Extensive multilevel spondylosis noted with severe foraminal narrowing and central canal stenosis, most significant at the C3-C4 level. The imaged portions of the lungs are clear with mild emphysematous changes. CTA head: The basilar artery is normal. The left vertebral artery is normal in caliber. The distal right vertebral artery is moderately stenotic. The posterior cerebral arteries are widely patent. There are moderate atherosclerotic wall calcifications in the cavernous internal carotid arteries without significant stenosis. The MIKA and MCA vascular complexes bilaterally are normal. The venous sinuses opacify normally. CT/CT angio head neck IMPRESSION: Relatively normal CT angiogram of the neck. Moderate stenosis in the distal intradural left vertebral artery. No vascular occlusion or significant stenosis elsewhere intracranially. Extensive multilevel cervical spondylosis with multilevel foraminal encroachment and moderate to severe central canal stenosis at the C3-C4 level. Imaging findings reported to Dr. Lopez at 3:00 PM on 09/09/2022.
--- NOTE | ~2022-09-09 | XR_ITS ---
EXAMINATION: XR CHEST CLINICAL INFORMATION: Right-sided weakness COMPARISON: 05/25/2022 TECHNIQUE: 2 views of the chest were obtained. FINDINGS: Lungs are clear. No evidence of pulmonary mass, consolidation or pleural effusion. Cardiac silhouette is normal in size and contour. Pulmonary vascular pattern is normal. The visualized bones are intact. XR/XR chest 2V IMPRESSION: No acute pulmonary disease.
--- NOTE | ~2022-09-09 | MR_ITS ---
EXAMINATION: MR BRAIN WITHOUT CONTRAST MR CERVICAL SPINE WITHOUT CONTRAST CLINICAL INFORMATION: Rule out CVA COMPARISON: MRI brain 09/26/2021 TECHNIQUE: MRI of the brain and cervical spine was obtained using routine sequences without contrast. FINDINGS: BRAIN: Some sequences are motion degraded. No acute infarct. No acute intracranial hemorrhage or extra-axial fluid collection. Stable mild generalized parenchymal volume loss. Stable nonspecific white matter disease, likely mild chronic microangiopathy. No mass lesion, mass effect, or herniation pattern. Normal intracranial arterial and dural venous sinus flow voids. Normal appearance of the midline structures. Bilateral lens replacements. The paranasal sinuses and mastoids are well aerated. Normal marrow signal. CERVICAL SPINE: Motion degraded examination. The craniocervical junction is intact. Straightening of the normal lumbar lordosis. Trace anterolisthesis of C4 and C5. There is mild chronic anterior wedging at T1. Diffuse disc desiccation with moderate to severe C6-C7 and mild C3-C4 disc space narrowing with predominantly type II Modic endplate changes most pronounced at these levels. Mild degenerative/inflammatory subchondral marrow edema associated with multilevel facet joints. There are multilevel degenerative changes with level by level detail as follows: C2-C3: Disc osteophyte complex with uncovertebral and bilateral facet joint hypertrophy. No spinal canal or significant neural foraminal stenosis. C3-C4: Disc osteophyte complex with superimposed broad-based left greater than right disc protrusion, uncovertebral joint hypertrophy and bilateral facet arthrosis. Severe spinal canal stenosis with cord impingement and cord signal abnormality. Severe left greater than right neural foraminal stenosis. C4-C5: Disc osteophyte complex with central disc protrusion, uncovertebral joint hypertrophy, and severe right greater than left facet arthrosis with ligamentum flavum thickening. Severe spinal canal stenosis with cord compression and cord signal abnormality. Severe right greater than left neural foraminal stenosis. C5-C6: Mild disc osteophyte complex with right subarticular component contiguous with right-sided uncovertebral joint hypertrophy and bilateral facet arthrosis. No significant spinal canal stenosis. Severe right and moderate to severe left neural foraminal stenosis. C6-C7: Small disc osteophyte complex with contiguous uncovertebral joint hypertrophy and bilateral facet arthrosis. Mild spinal canal stenosis with severe right greater than left neural foraminal stenosis. C7-T1: No spinal canal or neural foraminal stenosis. No epidural fluid collection, mass, or hematoma. No significant abnormalities of the paraspinal musculature. The flow voids of the major cervical vessels are maintained. Retropharyngeal course of the right common carotid artery and proximal right internal carotid artery. Atherosclerotic disease at the right carotid bifurcation extending into the right carotid bulb. MR/MR cervical spine wo con IMPRESSION: 1. No acute intracranial abnormality. Stable mild generalized parenchymal volume loss and white matter disease, likely chronic microangiopathy. 2. Advanced multilevel cervical spondylosis with severe spinal canal stenosis at C3-C4 and C4-C5 with cord compression and cord signal abnormality may reflect a combination of cord edema and sequelae of chronic compressive myelopathy. 3. Multilevel severe neural foraminal stenosis as described above. Findings were communicated to Dr. Jose Alejandro Oropeza on 09/10/2022 at 1:27 PM.
--- NOTE | 2022-09-09 12:01 | ECG_ITS ---
Test Reason : stroke alert Blood Pressure : / mmHG Vent. Rate : 112 BPM Atrial Rate : 112 BPM P-R Int : 204 ms QRS Dur : 078 ms QT Int : 326 ms P-R-T Axes : 045 -36 073 degrees QTc Int : 444 ms Sinus tachycardia Left axis deviation Abnormal ECG When compared with ECG of 25-MAY-2022 12:58, No significant change was found Referred By: Joel Lopez Electronically Signed By:BAILEY BRENNAN MD
--- NOTE | 2022-09-09 12:04 | ED.GENADULT ---
HPI - General Adult General Chief complaint: Neuro Symptoms/Deficit Stated complaint: STROKE ALERT,10AM R SIDE WEAK,STOPPED ZARELTO 3DAY Time Seen by Provider: 09/09/22 12:00 Source: patient and EMS Limitations: no limitations History of Present Illness HPI narrative: Patient called EMS secondary to right arm weakness. Patient states symptoms have been ongoing for the past several days. This morning he fell while transferring and called the Fire Department at approximately 07:30 for a lift assist. It then happened again approximately 10:00 any called for transport to the hospital. He complains of shooting pains down his right arm. He also states the arm is weak. He denies any facial symptoms or difficulty speaking. He is wheelchair bound after bilateral leg amputation secondary to diabetes. He denies any other recent illness. No prior history of similar issues. Per EMS, patient had significant right arm drift and weakness on their arrival and is much less pronounced on arrival to the ER. Related Data Home Medications Medication Instructions Recorded Confirmed aspirin 81 mg tablet,delayed 81 mg PO DAILY 07/17/20 05/25/22 release gabapentin 600 mg tablet 600 mg PO TID 07/17/20 05/25/22 liraglutide 0.6 mg/0.1 mL (18 mg/3 1.8 mg subcut DAILY 07/17/20 05/25/22 mL) subcutaneous pen injector (Victoza 3-Chet) metformin 1,000 mg tablet 1,000 mg PO BID 07/17/20 05/25/22 cholecalciferol (vitamin D3) 25 25 mcg PO DAILY 09/04/20 05/25/22 mcg (1,000 unit) tablet atorvastatin 40 mg tablet 40 mg PO DAILY 10/09/20 05/25/22 insulin degludec 100 unit/mL (3 30 unit subcut BID 12/23/20 05/25/22 mL) subcutaneous pen (Tresiba FlexTouch U-100 insulin) lancets 28 gauge (FreeStyle #100 ea 03/20/21 Lancets) albuterol sulfate 90 mcg/actuation 2 puff inhalation Q4-6H PRN 04/10/21 05/25/22 aerosol inhaler Shortness Of Breath apixaban 5 mg tablet (Eliquis) 1 tab PO BID 04/10/21 05/25/22 polyethylene glycol 3350 17 gram 17 g PO MOWEFR@0900 PRN 12/13/21 05/25/22 oral powder packet Constipation flash glucose sensor (FreeStyle #1 ea 01/01/22 Pablo 2 Sensor kit) pen needle, diabetic 31 gauge x #1,200 ea 01/01/2201/05 (BD Ultra-Fine Short Pen Needle) hydroxyzine HCl 10 mg tablet 10 mg PO BID PRN Anxiety 01/30/22 05/25/22 flash glucose scanning reader #1 ea 02/03/22 (FreeStyle Pablo 2 Ariel) alcohol swabs (Alcohol Prep Pads) 1 pad topical QID 04/21/22 blood sugar diagnostic (FreeStyle #10 ea 04/21/22 Lite Strips) insulin aspart U-100 100 unit/mL 5 - 15 unit subcut TIDAC 04/21/22 05/25/22 (3 mL) subcutaneous pen (Novolog FlexPen U-100 Insulin aspart) lisinopril 10 mg tablet 10 mg PO DAILY 04/21/22 05/25/22 magnesium oxide 400 mg (241.3 mg 400 mg PO DAILY 04/21/22 05/25/22 magnesium) tablet venlafaxine 150 mg 150 mg PO DAILY 04/21/22 05/25/22 capsule,extended release 24 hr Previous Rx's Medication Instructions Recorded plecanatide 3 mg tablet (Trulance) 3 mg PO DAILY 30 days #30 tabs 04/21/22 cefuroxime axetil 500 mg tablet 500 mg PO BID #6 tabs 05/27/22 peg 3350-electrolytes 236 240 ml PO Q10M 1 day #4,000 mL 06/17/22 gram-22.74 gram-6.74 gram-5.86 gram solution (Golytely) Allergies Allergy/AdvReac Type Severity Reaction Status Date / Time vancomycin AdvReac Severe thrombocyto Verified 04/21/22 11:11 penia Review of Systems Constitutional: Comments: No recent fevers or chills Cardiovascular: Comments: No chest pain or palpitations. No known history of atrial fibrillation. Respiratory: Comments: No dyspnea or cough. History of pulmonary embolism for which she was on Eliquis until approximately 3 days ago Gastrointestinal: Comments: No abdominal pain or nausea vomiting Musculoskeletal: Comments: Bilateral leg amputations as mentioned Integumentary/Breasts: Comments: No new rash Neurologic: Comments: Right arm weakness as described PMF Past Medical History Medical History (Updated 09/09/22 @ 15:23 by Joel Lopez MD) Abscess CIRILO (acute kidney injury) Amputated great toe of right foot Anxiety and depression Back pain Cellulitis COPD (chronic obstructive pulmonary disease) Diabetes Diabetic foot infection Drug-induced thrombocytopenia Hx MRSA infection Hyperlipidemia Hypertension Hyponatremia IDDM (insulin dependent diabetes mellitus) MGUS (monoclonal gammopathy of unknown significance) Neck pain Non-healing amputation site Obesity Peripheral neuropathy Psychiatric diagnosis Pulmonary embolism PVD (peripheral vascular disease) Sleep apnea Surgical History H/O abdominoplasty H/O colonoscopy Hx of angioplasty Hx of appendectomy Hx of foot surgery Hx of tonsillectomy Hx of umbilical hernia repair S/P anal fissurectomy S/P BKA (below knee amputation) bilateral Status post below-knee amputation Family History Family History Other No history of heart disease Social History Social History Household Members: None Housing: House Do you presently have visiting nurse or other home services: Yes ([facility]) Alcohol intake: former Patient Tobacco Use Status: Former Tobacco user Quit Date: 30 YEARS AGO Tobacco use type: Cigarette e-Cigarette/Vaping Use: Former Use Second Hand Smoke Exposure: No Advance Directives: Yes Advance Directives on File: Yes Advance Directives Date on File: 09/27/20 service: Yes Current occupational status: disabled Physical Exam ED Vital Signs: Vital Signs - 24 hr 09/09/22 12:08 09/09/22 12:45 Temperature 99.5 F Pulse Rate 112 H 110 H Respiratory Rate 16 20 Blood Pressure 127/80 146/83 H Pulse Oximetry 94 93 Oxygen Delivery Method Room Air Room Air BMI result Body Mass Index 55.2 Const Other: Awake alert. No acute distress Eyes Other: Pupils equal round reactive to light Resp Other: Clear and equal bilaterally Cardio Other: Regular rate and rhythm without murmurs rubs or gallops GI Other: Soft nontender nondistended. No pulsatile masses Skin Other: Warm pink and dry without rash Neuro Other: Patient with very subtle right arm drift after approximately 8 on a 10 count. Unable to assess lower leg secondary to bilaterally PT shins. Aix Administrator strength diminished bilaterally but more so on the right. Patient states this is secondary to pain in his hands which is chronic. No facial droop. No aphasia or dysphasia No change to sensation Extrem Other: Bilateral leg amputations NIH Stroke Scale Internal: Initial- Upon Arrival Time: 12:08 Level of Consciousness: Alert Level of Consciousness Questions: Answers both questions correctly Level of Consciousness Commands: Performs both tasks correctly Best Gaze: Normal Visual: No visual loss Facial Palsy: Normal Motor Arm (Right): Drift Motor Arm (Left): No drift Motor Leg (Right): Amputation or joint fusion Motor Leg (Left): Amputation or joint fusion Limb Ataxia: Absent Sensory: Normal Best Language: No aphasia Dysarthia: Normal Extinction and Inattention: No abnormality Score: 1 Medications Administered Discontinued Medications Generic Name Dose Route Start Last Admin Trade Name Freq PRN Reason Stop Dose Admin Hydromorphone HCl 1 mg 09/09/22 12:54 09/09/22 13:17 Hydromorphone Hcl 1 Mg/Ml Syringe IVPUSH 09/09/22 12:55 1 mg ONCE ONE Administration Protocol Iohexol 100 ml 09/09/22 14:03 09/09/22 14:03 Iohexol 350 Mg/Ml 100 Ml Infus..Btl IV 09/09/22 14:04 70 ml ONCE ONE Administration Medical Decision Making Medical Decision Making MDM Narrative: Differential diagnosis includes stroke Neuropathy Musculoskeletal weakness Patient's symptoms are well outside the window for timeline of tPA or endovascular therapy if this does field return repairer to be ischemic stroke in etiology. Given this, I will hold off on CT angiography until after we get the creatinine. Review of prior creatinine from May shows a was normal. If it is still normal we will order her CT followed by CT angiography of neck and brain. 15:21. Case discussed with Radiology. There is vertebral artery stenosis but no large vessel occlusions. There is also foraminal narrowing at C3-4. No acute findings to explain the patient's symptoms. Will hospitalized for further workup including MRI and neurological evaluation for possible small stroke versus TIA. Lab Data 09/09/22 12:44 09/09/22 12:44 Labs: Lab Results 09/09/22 09/09/22 09/09/22 Range/Units 12:05 12:44 12:44 WBC 11.2 H (4.8-10.8) X10*3/uL RBC 4.41 L (4.60-5.80) X10*6/uL Hgb 14.5 (14.0-18.0) g/dl Hct 40.0 L (42.0-52.0) % MCV 90.7 (80.0-98.0) fL MCH 32.9 (27.0-33.0) pg MCHC 36.3 H (31.0-36.0) g/dl RDW 12.1 (11.0-16.0) % Plt Count 173 D (160-400) X10*3/uL MPV 10.7 (9.4-12.4) fL Immature Gran % (Auto) 0.6 H (0.0-0.4) % Neut % (Auto) 86.4 H (45-73) % Lymph % (Auto) 4.4 L (20-40) % [place] % (Auto) 7.9 (2-11) % Eos % (Auto) 0.4 (0-4) % Baso % (Auto) 0.3 (0-2) % Lymph # (Auto) 0.5 L (1.2-4.9) X10*3/uL [place] # (Auto) 0.9 (0.1-1.2) X10*3/uL Eos # (Auto) 0.1 (0.0-0.4) X10*3/uL Baso # (Auto) 0.0 (0.0-0.2) X10*3/uL Abs Immat Gran (auto) 0.07 H (0.00-0.03) X10*3/uL Absolute Neuts (auto) 9.7 H (2.0-8.3) x10*3/uL Absolute Nucleated RBC 0.000 (0.0-0.012) X10*3/uL Nucleated RBC % (auto) 0.0 (0.0-0.2) /100WBC PT 11.8 (10.0-13.1) SEC INR 1.0 (0.9-1.1) Sodium (135-145) mmol/L Potassium (3.3-5.1) mmol/L Chloride (96-108) mmol/L Carbon Dioxide (22-29) mmol/L Anion Gap (12-20) BUN (9-16) mg/dL Creatinine (0.5-1.4) mg/dL Estim Creat Clear Calc Estimated GFR POC Glucose 319 H (60-115) mg/dL Random Glucose (60-115) mg/dL Calcium (8.4-10.2) mg/dL Total Bilirubin (0.0-1.0) mg/dL AST (5-37) U/L ALT (0-40) U/L Alkaline Phosphatase (39-117) U/L Troponin I High Sens (<3.5-35.0) ng/L Total Protein (6.5-8.0) g/dL Albumin (3.5-5.0) g/dL Urine Color Urine Appearance Urine pH (5.0-9.0) Ur Specific [place] (1.005-1.025) Urine Protein (Neg-Trace) mg/dL Urine Glucose (UA) (Negative) mg/dL Urine Ketones (Negative) mg/dL Urine Blood (Negative) Urine Nitrite (Negative) Ur Leukocyte Esterase (Negative) Urine RBC (0-2) /HPF Urine WBC (0-5) /HPF Ur Squamous Epith Cells (0-2) /HPF Urine Bacteria (None Seen) Hyaline Casts (0-2) /LPF COVID-19 (JOSE) (Negative) COVID-19 Clin Com 09/09/22 09/09/22 09/09/22 Range/Units 12:44 12:44 12:44 WBC (4.8-10.8) X10*3/uL RBC (4.60-5.80) X10*6/uL Hgb (14.0-18.0) g/dl Hct (42.0-52.0) % MCV (80.0-98.0) fL MCH (27.0-33.0) pg MCHC (31.0-36.0) g/dl RDW (11.0-16.0) % Plt Count (160-400) X10*3/uL MPV (9.4-12.4) fL Immature Gran % (Auto) (0.0-0.4) % Neut % (Auto) (45-73) % Lymph % (Auto) (20-40) % [place] % (Auto) (2-11) % Eos % (Auto) (0-4) % Baso % (Auto) (0-2) % Lymph # (Auto) (1.2-4.9) X10*3/uL [place] # (Auto) (0.1-1.2) X10*3/uL Eos # (Auto) (0.0-0.4) X10*3/uL Baso # (Auto) (0.0-0.2) X10*3/uL Abs Immat Gran (auto) (0.00-0.03) X10*3/uL Absolute Neuts (auto) (2.0-8.3) x10*3/uL Absolute Nucleated RBC (0.0-0.012) X10*3/uL Nucleated RBC % (auto) (0.0-0.2) /100WBC PT (10.0-13.1) SEC INR (0.9-1.1) Sodium 133 L (135-145) mmol/L Potassium 4.4 (3.3-5.1) mmol/L Chloride 100 (96-108) mmol/L Carbon Dioxide 21 L (22-29) mmol/L Anion Gap 16 (12-20) BUN 21 H (9-16) mg/dL Creatinine 1.24 (0.5-1.4) mg/dL Estim Creat Clear Calc 70.1 Estimated GFR 59 POC Glucose (60-115) mg/dL Random Glucose 310 H (60-115) mg/dL Calcium 9.2 D (8.4-10.2) mg/dL Total Bilirubin 0.9 (0.0-1.0) mg/dL AST 24 (5-37) U/L ALT 28 (0-40) U/L Alkaline Phosphatase 96 (39-117) U/L Troponin I High Sens < 3.5 (<3.5-35.0) ng/L Total Protein 6.7 (6.5-8.0) g/dL Albumin 3.8 (3.5-5.0) g/dL Urine Color Urine Appearance Urine pH (5.0-9.0) Ur Specific [place] (1.005-1.025) Urine Protein (Neg-Trace) mg/dL Urine Glucose (UA) (Negative) mg/dL Urine Ketones (Negative) mg/dL Urine Blood (Negative) Urine Nitrite (Negative) Ur Leukocyte Esterase (Negative) Urine RBC (0-2) /HPF Urine WBC (0-5) /HPF Ur Squamous Epith Cells (0-2) /HPF Urine Bacteria (None Seen) Hyaline Casts (0-2) /LPF COVID-19 (JOSE) Negative (Negative) COVID-19 Clin Com See Note 09/09/22 Range/Units 13:30 WBC (4.8-10.8) X10*3/uL RBC (4.60-5.80) X10*6/uL Hgb (14.0-18.0) g/dl Hct (42.0-52.0) % MCV (80.0-98.0) fL MCH (27.0-33.0) pg MCHC (31.0-36.0) g/dl RDW (11.0-16.0) % Plt Count (160-400) X10*3/uL MPV (9.4-12.4) fL Immature Gran % (Auto) (0.0-0.4) % Neut % (Auto) (45-73) % Lymph % (Auto) (20-40) % [place] % (Auto) (2-11) % Eos % (Auto) (0-4) % Baso % (Auto) (0-2) % Lymph # (Auto) (1.2-4.9) X10*3/uL [place] # (Auto) (0.1-1.2) X10*3/uL Eos # (Auto) (0.0-0.4) X10*3/uL Baso # (Auto) (0.0-0.2) X10*3/uL Abs Immat Gran (auto) (0.00-0.03) X10*3/uL Absolute Neuts (auto) (2.0-8.3) x10*3/uL Absolute Nucleated RBC (0.0-0.012) X10*3/uL Nucleated RBC % (auto) (0.0-0.2) /100WBC PT (10.0-13.1) SEC INR (0.9-1.1) Sodium (135-145) mmol/L Potassium (3.3-5.1) mmol/L Chloride (96-108) mmol/L Carbon Dioxide (22-29) mmol/L Anion Gap (12-20) BUN (9-16) mg/dL Creatinine (0.5-1.4) mg/dL Estim Creat Clear Calc Estimated GFR POC Glucose (60-115) mg/dL Random Glucose (60-115) mg/dL Calcium (8.4-10.2) mg/dL Total Bilirubin (0.0-1.0) mg/dL AST (5-37) U/L ALT (0-40) U/L Alkaline Phosphatase (39-117) U/L Troponin I High Sens (<3.5-35.0) ng/L Total Protein (6.5-8.0) g/dL Albumin (3.5-5.0) g/dL Urine Color Yellow Urine Appearance Turbid Urine pH 5.5 (5.0-9.0) Ur Specific [place] 1.010 (1.005-1.025) Urine Protein 30 (1+) H (Neg-Trace) mg/dL Urine Glucose (UA) 500 H (Negative) mg/dL Urine Ketones Trace (Negative) mg/dL Urine Blood Moderate (2+) H (Negative) Urine Nitrite Negative (Negative) Ur Leukocyte Esterase Large (3+) H (Negative) Urine RBC 0-2 (0-2) /HPF Urine WBC >50 H (0-5) /HPF Ur Squamous Epith Cells 0-2 (0-2) /HPF Urine Bacteria 4+ (None Seen) Hyaline Casts 0-2 (0-2) /LPF COVID-19 (JOSE) (Negative) COVID-19 Clin Com Critical Care Time Critical Care Time Critical Care Time: Yes Total Critical Care Time: 60 Attestation: Critical care time due to possible stroke with thrombolytics consideration. Critical care time outside of any separately billable procedures Discharge Plan Discharge Patient Disposition: Admitted As Inpatient Prescriptions: No Action peg 3350-electrolytes [Golytely] 236-22.74-6.74 -5.86 gram recon soln 240 ml PO Q10M 1 Days Qty: 4000 0RF Rx Instructions: until fecal effluent is clear; do not exceed a total volume of 2,000 mL atorvastatin 40 mg tablet 40 mg PO DAILY Hold Instructions: Resume on 01/24/22. Eliquis 5 mg tablet 1 tab PO BID albuterol sulfate 90 mcg/actuation Hfa Aerosol Inhaler 2 puff INHALATION Q4-6H PRN (Reason: Shortness Of Breath) gabapentin 600 mg tablet 600 mg PO TID aspirin 81 mg tablet,delayed release (DR/EC) 81 mg PO DAILY metformin 1,000 mg tablet 1,000 mg PO BID Victoza 3-Chet 0.6 mg/0.1 mL (18 mg/3 mL) pen injector 1.8 mg subcut DAILY cholecalciferol (vitamin D3) 25 mcg (1,000 unit) tablet 25 mcg PO DAILY Tresiba FlexTouch U-100 100 unit/mL (3 mL) insulin pen 30 unit subcut BID magnesium oxide 400 mg (241.3 mg magnesium) tablet 400 mg PO DAILY polyethylene glycol 3350 17 gram powder in packet 17 g PO MOWEFR@0900 PRN (Reason: Constipation) insulin aspart U-100 [Novolog FlexPen U-100 Insulin] 100 unit/mL (3 mL) insulin pen 5 - 15 unit subcut TIDAC Rx Instructions: Per sliding scale cefuroxime axetil 500 mg tablet 500 mg PO BID Qty: 6 0RF (DME) lancets [FreeStyle Lancets] 28 gauge misc See Rx Instructions topical QID Qty: 100 Rx Instructions: As directed hydroxyzine HCl 10 mg tablet 10 mg PO BID PRN (Reason: Anxiety) lisinopril 10 mg tablet 10 mg PO DAILY (DME) FreeStyle Lite Strips Strip See Rx Instructions .ROUTE QID Qty: 10 Rx Instructions: As directed alcohol swabs [Alcohol Prep Pads] Pads, Medicated 1 pad topical QID venlafaxine 150 mg capsule,extended release 24hr 150 mg PO DAILY Trulance 3 mg tablet 3 mg PO DAILY 30 Days Qty: 30 6RF (DME) FreeStyle Pablo 2 Sensor Kit See Rx Instructions .ROUTE .MEDSUPPLY Qty: 1 Rx Instructions: As directed (DME) pen needle, diabetic [BD Ultra-Fine Short Pen Needle] 31 gauge x 5/16 needle See Rx Instructions subcut .MEDSUPPLY Qty: 1200 Rx Instructions: As directed (DME) FreeStyle Pablo 2 Ariel Misc See Rx Instructions .ROUTE .MEDSUPPLY Qty: 1 Rx Instructions: As directed
[2022-09-09 12:10] LABS: Glucose, Whole Blood 319 mg/dL (60-115)
--- NOTE | 2022-09-09 12:49 | PC.NURSE ---
Pt reports increasing weakness over a few days. Bilateral BKA, uses wheel chair at home where he lives alone. States he was transferring from bed to wheelchair where he fell and was on the floor on his right side. Now complains of right arm/side electric shock pain occasionally. Resting comfortably.
[2022-09-09 12:59] LABS: MANUAL DIFF FLAG NO
[2022-09-09 13:02] LABS: Basophils Percent Auto 0.3 % (0-2); Eosinophils Absolute Auto 0.1 X10*3/uL (0.0-0.4); Eosinophils Percent Auto 0.4 % (0-4); Hemoglobin 14.5 g/dl (14.0-18.0); Imm Gran Abs Auto 0.07 X10*3/uL (0.00-0.03); Imm Gran Pct Auto 0.6 % (0.0-0.4); Lymphocytes Absolute Auto 0.5 X10*3/uL (1.2-4.9); Lymphocytes Percent Auto 4.4 % (20-40); Mean Corpuscular HGB Conc 36.3 g/dl (31.0-36.0); Mean Corpuscular Hemoglobin 32.9 pg (27.0-33.0); Mean Corpuscular Volume 90.7 fL (80.0-98.0); Mean Platelet Volume 10.7 fL (9.4-12.4); Monocytes Absolute Auto 0.9 X10*3/uL (0.1-1.2); Monocytes Percent Auto 7.9 % (2-11); Neutrophils Absolute Auto 9.7 x10*3/uL (2.0-8.3); Neutrophils Percent Auto 86.4 % (45-73); Platelet Count 173 X10*3/uL (160-400); Red Blood Count 4.41 X10*6/uL (4.60-5.80); Red Cell Distribution Width 12.1 % (11.0-16.0); White Blood Count 11.2 X10*3/uL (4.8-10.8)
[2022-09-09 13:09] LABS: Prothrombin Time 11.8 SEC (10.0-13.1)
[2022-09-09] MEDS: HYDROmorphone HCl 1 MG/ML SYRINGE IVPUSH (13:17)
--- NOTE | 2022-09-09 13:17 | MHC.EDTECH ---
Assisted pt to use urinal. Pt voided 250cc of urine. Gave pt some ice chips per RN approval.
[2022-09-09 13:19] LABS: Alanine Aminotransferase 28 U/L (0-40); Albumin Level 3.8 g/dL (3.5-5.0); Alkaline Phosphatase 96 U/L (39-117); Anion Gap 16 (12-20); Aspartate Amino Transferase 24 U/L (5-37); Bilirubin Total 0.9 mg/dL (0.0-1.0); Blood Urea Nitrogen 21 mg/dL (9-16); COVID-19 Test Negative (Negative); Calcium 9.2 mg/dL (8.4-10.2); Carbon Dioxide 21 mmol/L (22-29); Chloride 100 mmol/L (96-108); Creatinine Clr Calc Pharmacy 70.1; Estimated Glomerular Filt Rate 59; Glucose Random 310 mg/dL (60-115); IDNOW Serial# 16C4AD1C; Potassium 4.4 mmol/L (3.3-5.1); Sodium 133 mmol/L (135-145); Total Protein 6.7 g/dL (6.5-8.0)
[2022-09-09 13:26] LABS: Troponin-I High Sensitivity < 3.5 ng/L (<3.5-35.0)
[2022-09-09 13:41] LABS: Appearance Urine Turbid; Color Urine Yellow; Glucose Urine UA 500 mg/dL (Negative); Leukocyte Esterase Urine Large (3+) (Negative); Nitrite Urine Negative (Negative); PH 5.5 (5.0-9.0); UMIC TRIGGER UACC YES; Urine Blood Moderate (2+) (Negative); Urine Ketones Trace mg/dL (Negative); Urine Protein 30 (1+) mg/dL (Neg-Trace)
--- NOTE | 2022-09-09 13:49 | PC.NURSE ---
Pt in ct scan
[2022-09-09 13:54] LABS: Bacteria Urine 4+ (None Seen); Hyaline Casts Urine 0-2 /LPF (0-2); RBC Urine 0-2 /HPF (0-2); Squamous Epithelial Cell Urine 0-2 /HPF (0-2); UACC Culture Trigger YES; WBC Urine >50 /HPF (0-5)
[2022-09-09] MEDS: iohexoL 350 MG/ML 100 ML INFUS..BTL IV (14:03)
[2022-09-09] MEDS: cefTRIAXone sodium 1 GM in 0.9 % Sodium Chloride 50 ML IV (15:54)
[2022-09-09] MEDS: Aspirin Enteric Coated 325 MG TABLET.DR PO (15:55)
--- NOTE | 2022-09-09 16:56 | PHA.MEDREC ---
Pharmacy Consult ? Medication Reconciliation Pharmacy has completed the medication reconciliation. Pt unable to name medications on his own but able to verify yes or no when I named them and tell me correct doses and timing. He did note that he was taken off Eliquis and told me that he was told to stop metformin for a CAT scan. I asked about the medications he confirmed that haven't been filled since May and he informed me he had a surplus.
--- NOTE | 2022-09-09 17:09 | P.HPHOSP_ITS ---
History of Present Illness Date of Service: 09/09/22 Attending physician on admission: Jose Alejandro Oropeza Chief Complaint: Right arm weakness 62-year-old gentleman with past medical history of type 2 diabetes mellitus on insulin, peripheral vascular disease status post bilateral BKA, peripheral n europathy, MGUS, morbid obesity, history of obstructive sleep apnea, mood disorder, hypertension, history of pulmonary embolism finish anticoagulation 3 days ago, lives alone his wheelchair bound since JEFFRY feels it is difficult for him to be by himself without help, presented to [facility] Due to right arm weakness, as per patient he has bilateral shoulder pain of 1 week duration, in last 2-3 days he noticed that he has been leaning more to the right side, today he was trying to transfer from wheelchair to bed but was unable to do so therefore managers from his building assisted him to be back to bed he denies associated lightheadedness dizziness no headache no visual symptoms few hours later while in bed he called the ambulance since he felt electric shocks in right arm as well as an abdomen that happened a few times he also felt that the right arm is weak, in the emergency room patient noted to have no significant neurological deficit his face was symmetrical speech was intact, there was no right-sided pronator drift, his labs showed slightly elevated WBC of 11.2 urinalysis is significantly positive with 4+ bacteria he does complain of urinary frequency his CTA head and neck showed no carotid artery narrowing or stenosis but showed vertebral artery stenosis, it showed cer vical spondylosis with multilevel foraminal encroachment, in moderate to severe central canal stenosis at C3-C4 level patient received 1 dose of IV ceftriaxone in the emergency room as well as aspirin and hydromorphone for pain and now being admitted to [facility] for continued monitoring and treatment for right upper extremity weakness. Review of Systems Review of Systems: General no headache no dizziness no fever chills. CVS no chest pain, no palpitation. Respiratory no cough no sob Gastrointestinal no nausea no vomiting, no abdominal pain no urinary burning, no urgency, admits to urinary frequency Skin no rash no itching Yes all other systems are reviewed and are negative [facility] Medical History Abscess CIRILO (acute kidney injury) Amputated great toe of right foot Anxiety and depression Back pain Cellulitis COPD (chronic obstructive pulmonary disease) Diabetes Diabetic foot infection Drug-induced thrombocytopenia Hx MRSA infection Hyperlipidemia Hypertension Hyponatremia IDDM (insulin dependent diabetes mellitus) MGUS (monoclonal gammopathy of unknown significance) Neck pain Non-healing amputation site Obesity Peripheral neuropathy Psychiatric diagnosis Pulmonary embolism PVD (peripheral vascular disease) Sleep apnea Family History Other No history of heart disease Surgical History H/O abdominoplasty H/O colonoscopy Hx of angioplasty Hx of appendectomy Hx of foot surgery Hx of tonsillectomy Hx of umbilical hernia repair S/P anal fissurectomy S/P BKA (below knee amputation) bilateral Status post below-knee amputation Social History Household Members: None Housing: House Do you presently have visiting nurse or other home services: Yes ([facility]) Alcohol intake: former Patient Tobacco Use Status: Former Tobacco user Quit Date: 30 YEARS AGO Tobacco use type: Cigarette e-Cigarette/Vaping Use: Former Use Second Hand Smoke Exposure: No Use of substances other than those prescribed or required for medical reasons: No Currently Displaying Signs/Symptoms of Drug Intoxication Withdrawal: No Have you been hit, kicked, punched, or otherwise hurt by someone within the past year? If so, by whom?: No Do you feel safe in your current relationship?: No Current Relationship Is there a partner from a previous relationship who is making you feel unsafe now?: No Are you made to feel afraid or neglected: No Advance Directives: Yes Advance Directives on File: Yes Advance Directives Date on File: 09/27/20 Do you have thoughts of harming others: None Do you have a plan to hurt others: No Plan Recently lost weight without trying: Unsure Nutrition Risks: No Nutritional Risk service: Yes Current occupational status: disabled Meds Allergies Allergy/AdvReac Type Severity Reaction Status Date / Time vancomycin AdvReac Severe thrombocyto Verified 04/21/22 11:11 penia Active Medications: Current Medications Acetaminophen (Acetaminophen 325 Mg Tablet) 650 mg PO Q6H PRN PRN Reason: Pain, Mild (Pain Scale 1-3) Albuterol Sulfate (Albuterol Sulfate 90 Mcg 8 Gm Inhaler) 2 puff INHALE Q4H PRN PRN Reason: Shortness Of Breath Amitriptyline HCl (Amitriptyline Hcl 10 Mg Tablet) 10 mg PO BEDTIME [facility] Aspirin (Aspirin Enteric Coated 81 Mg Tablet.Dr) 81 mg PO DAILY [facility] Atorvastatin Calcium (Atorvastatin Calcium 40 Mg Tablet) 40 mg PO BEDTIME [facility] Benzonatate (Benzonatate 100 Mg Capsule) 100 mg PO TID PRN PRN Reason: Cough Dextrose (Dextrose 50 % 25 Gm/50 Ml Syringe) 25 gm IVPUSH Q15M PRN; Protocol PRN Reason: per Hypoglycemia Standing Ord. Gabapentin (Gabapentin 600 Mg Tablet) 1,200 mg PO BID [facility] Glucose (Glucose Gel 15 Gm Gel..Gram.) 15 gm PO Q15M PRN; Protocol PRN Reason: per Hypoglycemia Standing Ord. Hydroxyzine HCl (Hydroxyzine Hcl 10 Mg Tablet) 10 mg PO BID PRN PRN Reason: Anxiety Ceftriaxone Sodium 1 gm/ (Sodium Chloride) 50 mls @ 100 mls/hr IV Q24H [facility] Insulin Human Lispro (Insulin Lispro 100 Unit/Ml 3 Ml Vial) 0 unit SUBCUT QIDACHS [facility]; Protocol Lisinopril (Lisinopril 10 Mg Tablet) 10 mg PO DAILY [facility]; Protocol Magnesium Oxide (Magnesium Oxide 400 Mg Tablet) 400 mg PO DAILY [facility] Melatonin (Melatonin 3 Mg Tablet) 3 mg PO BEDTIME PRN PRN Reason: Insomnia Metformin HCl (Metformin Hcl 1,000 Mg Tablet) 1,000 mg PO BID [facility] Multivitamins/Vitamin C (Multivitamin Tablet) tab PO DAILY [facility] Ondansetron HCl (Ondansetron Hcl 4 Mg/2 Ml Vial) 4 mg IVPUSH Q8H PRN PRN Reason: Nausea and Vomiting Pharmacy Consult (Consult Rx Perform Med Rec) 1 each MISCELLANE ONCE PRN PRN Reason: Consult order Polyethylene Glycol (Polyethylene Glycol 3350 17 Gm Powd.Pack) 17 gm PO DAILY PRN PRN Reason: Constipation Sodium Chloride (0.9 % Sodium Chloride Flush 3 Ml Syringe) 3 ml IVFLUSH QSHIFT [facility] Vitamin D (Cholecalciferol (Vitamin D3) 25 Mcg Tablet) 25 mcg PO DAILY [facility] Home Medications Medication Instructions Recorded Confirmed Last Taken Type aspirin 81 mg tablet,delayed 81 mg PO DAILY 07/17/20 09/09/22 05/24/22 History release gabapentin 600 mg tablet 1,200 mg PO BID 07/17/20 09/09/22 05/24/22 History liraglutide 0.6 mg/0.1 mL (18 mg/3 1.8 mg subcut DAILY 07/17/20 09/09/22 05/24/22 History mL) subcutaneous pen injector (Victoza 3-Chet) metformin 1,000 mg tablet 1,000 mg PO BID 07/17/20 09/09/22 05/24/22 History cholecalciferol (vitamin D3) 25 25 mcg PO DAILY 09/04/20 09/09/22 05/24/22 History mcg (1,000 unit) tablet atorvastatin 40 mg tablet 40 mg PO BEDTIME 10/09/20 09/09/22 05/24/22 History insulin degludec 100 unit/mL (3 40 unit subcut BID 12/23/20 09/09/22 05/24/22 History mL) subcutaneous pen (Tresiba FlexTouch U-100 insulin) lancets 28 gauge (FreeStyle #100 ea 03/20/21 05/24/22 History Lancets) albuterol sulfate 90 mcg/actuation 2 puff inhalation Q4-6H PRN 04/10/21 09/09/22 05/24/22 History aerosol inhaler Shortness Of Breath polyethylene glycol 3350 17 gram 17 g PO DAILY PRN Constipation 12/13/21 09/09/22 05/24/22 History oral powder packet flash glucose sensor (FreeStyle #1 ea 01/01/22 05/24/22 History Pablo 2 Sensor kit) pen needle, diabetic 31 gauge x #1,200 ea 01/01/22 05/24/22 History 5/16 (BD Ultra-Fine Short Pen Needle) hydroxyzine HCl 10 mg tablet 10 mg PO BID PRN Anxiety 01/30/22 09/09/22 05/24/22 History flash glucose scanning reader #1 ea 02/03/22 05/24/22 History (FreeStyle Pablo 2 [place]) blood sugar diagnostic (FreeStyle #10 ea 04/21/22 05/24/22 History Lite Strips) insulin aspart U-100 100 unit/mL 5 - 15 unit subcut TIDAC 04/21/22 09/09/22 05/24/22 History (3 mL) subcutaneous pen (Novolog FlexPen U-100 Insulin aspart) lisinopril 10 mg tablet 10 mg PO DAILY 04/21/22 09/09/22 05/24/22 History magnesium oxide 400 mg (241.3 mg 400 mg PO DAILY 04/21/22 09/09/22 05/24/22 History magnesium) tablet amitriptyline 10 mg tablet 1 tab PO BEDTIME 09/09/22 09/09/22 Unknown History vitamin B complex (Vitamins B 1 cap PO DAILY 09/09/22 09/09/22 Unknown History Complex capsule) Physical Exam Vital Signs and Narrative: Vital Signs: Last Vital Signs Temp 98.5 F 09/09/22 16:09 Pulse 102 H 09/09/22 16:09 Resp 18 09/09/22 16:09 BP 131/78 09/09/22 16:09 Pulse Ox 94 09/09/22 16:09 O2 Del Method 09/09/22 16:09 BMI result Body Mass Index 55.2 Const: Other: General awake alert x3, in no acute distress. Neck supple no JVD. CVS regular rate rhythm, Respiratory lungs clear to auscultation, no respiratory distress, no wheeze, no rhonchi. Gastrointestinal abdomen soft, obese, nontender, bowel sounds audible, no guarding , no rigidity. 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 Skin no rash Psych appropriate affect Results Labs 09/09/22 12:44 09/09/22 12:44 Labs: Laboratory Results - last 24 hr 09/09/22 09/09/22 09/09/22 12:05 12:44 12:44 MCV 90.7 MCH 32.9 MCHC 36.3 H RDW 12.1 Plt Count 173 D MPV 10.7 Immature Gran % (Auto) 0.6 H Neut % (Auto) 86.4 H Lymph % (Auto) 4.4 L [place] % (Auto) 7.9 Eos % (Auto) 0.4 Baso % (Auto) 0.3 Lymph # (Auto) 0.5 L [place] # (Auto) 0.9 Eos # (Auto) 0.1 Baso # (Auto) 0.0 Abs Immat Gran (auto) 0.07 H Absolute Neuts (auto) 9.7 H Absolute Nucleated RBC 0.000 Nucleated RBC % (auto) 0.0 PT 11.8 INR 1.0 Anion Gap Estim Creat Clear Calc Estimated GFR POC Glucose 319 H Random Glucose Calcium Total Bilirubin AST ALT Alkaline Phosphatase Troponin I High Sens Total Protein Albumin Urine Color Urine Appearance Urine pH Ur Specific [place] Urine Protein Urine Glucose (UA) Urine Ketones Urine Blood Urine Nitrite Ur Leukocyte Esterase Urine RBC Urine WBC Ur Squamous Epith Cells Urine Bacteria Hyaline Casts COVID-19 (JOSE) COVID-19 Clin Com 09/09/22 09/09/22 09/09/22 12:44 12:44 12:44 MCV MCH MCHC RDW Plt Count MPV Immature Gran % (Auto) Neut % (Auto) Lymph % (Auto) [place] % (Auto) Eos % (Auto) Baso % (Auto) Lymph # (Auto) [place] # (Auto) Eos # (Auto) Baso # (Auto) Abs Immat Gran (auto) Absolute Neuts (auto) Absolute Nucleated RBC Nucleated RBC % (auto) PT INR Anion Gap 16 Estim Creat Clear Calc 70.1 Estimated GFR 59 POC Glucose Random Glucose 310 H Calcium 9.2 D Total Bilirubin 0.9 AST 24 ALT 28 Alkaline Phosphatase 96 Troponin I High Sens < 3.5 Total Protein 6.7 Albumin 3.8 Urine Color Urine Appearance Urine pH Ur Specific [place] Urine Protein Urine Glucose (UA) Urine Ketones Urine Blood Urine Nitrite Ur Leukocyte Esterase Urine RBC Urine WBC Ur Squamous Epith Cells Urine Bacteria Hyaline Casts COVID-19 (JOSE) Negative COVID-19 Clin Com See Note 09/09/22 13:30 MCV MCH MCHC RDW Plt Count MPV Immature Gran % (Auto) Neut % (Auto) Lymph % (Auto) [place] % (Auto) Eos % (Auto) Baso % (Auto) Lymph # (Auto) [place] # (Auto) Eos # (Auto) Baso # (Auto) Abs Immat Gran (auto) Absolute Neuts (auto) Absolute Nucleated RBC Nucleated RBC % (auto) PT INR Anion Gap Estim Creat Clear Calc Estimated GFR POC Glucose Random Glucose Calcium Total Bilirubin AST ALT Alkaline Phosphatase Troponin I High Sens Total Protein Albumin Urine Color Yellow Urine Appearance Turbid Urine pH 5.5 Ur Specific [place] 1.010 Urine Protein 30 (1+) H Urine Glucose (UA) 500 H Urine Ketones Trace Urine Blood Moderate (2+) H Urine Nitrite Negative Ur Leukocyte Esterase Large (3+) H Urine RBC 0-2 Urine WBC >50 H Ur Squamous Epith Cells 0-2 Urine Bacteria 4+ Hyaline Casts 0-2 COVID-19 (JOSE) COVID-19 Clin Com Imaging Radiologist's Impressions: Impressions Chest X-Ray 09/09/22 13:07 IMPRESSION: No acute pulmonary disease. Head/Neck CTA 09/09/22 14:18 IMPRESSION: Relatively normal CT angiogram of the neck. Moderate stenosis in the distal intradural left vertebral artery. No vascular occlusion or significant stenosis elsewhere intracranially. Extensive multilevel cervical spondylosis with multilevel foraminal encroachment and moderate to severe central canal stenosis at the C3-C4 level. Imaging findings reported to Dr. Lopez at 3:00 PM on 09/09/2022. Assessment and Plan (1) Progressive acute focal neurologic deficit: Status: Acute Plan 62-year-old with past medical history of peripheral vascular disease status post bilateral BKA, peripheral neuropathy, type 2 diabetes mellitus, morbid obesity, mood disorder, hypertension, pulmonary embolism finished course of Eliquis 3 days ago presented to [facility] with bilateral shoulder pain of 1 week duration and 2-3 days of leaning towards the right side and this morning developed electrical shocks to anterior abdomen as well as right upper extremity was unable to transfer from wheelchair to bed required help with no fall to the ground no lightheadedness dizziness or syncope. Right upper extremity weakness pain and leaning to right-sided of 2-3 days duration Patient is a vague historian, CT head showed no evidence of acute intracranial hemorrhage or infarction no abnormal mass or midline shift noted, CTA neck noted central canal stenosis significant at C3-C4 level, CTA head showed distal right vertebral artery moderate stenosis. 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 leader, no pronator Drift, as per EMS patient had significant right arm drift and weakness on their arrival that improved on arrival to the ED Will obtain MRI brain and C-spine to rule out acute CVA and to follow-up on cervical canal stenosis, since symptoms ongoing for for few days patient not a candidate for tPA continue aspirin and statins good blood sugar control Obtain neuro consult, follow lipid profile, PT/OT consult Diabetes Elevated blood sugars on Basal and bolus insulin Will place on diabetic diet, Lantus and insulin sliding scale, will hold metformin Peripheral vascular disease Continue Aspirin, and statin History of pulmonary embolism Recently finished treatment with Eliquis 3 days ago COPD Stable, inhalers as needed Morbid obesity complicated by obstructive sleep apnea recommended low-calorie diet and weight loss cPAP at night Mood disorder Continue amitriptyline Peripheral neuropathy On Gabapentin Full code DVT prophylaxis placed on Lovenox Patient presenting with right upper extremity pain and weakness with multiple risk factors of diabetes, obesity, peripheral vascular disease, therefore need further workup including MRI and neuro evaluation and expected to require at least 2 midnights in the hospital. Time Spent With Patient Time: Total time managing care of this patient today ____ minutes. Quality Stroke Does the patient have a stroke diagnosis?: No VTE Prior VTE?: No VTE Risk Level:: Medical - moderate - high VTE Device Contraindication: Treatment Not Indicated VTE Drug Contraindication: N/A - Med Ordered
--- OUTSIDE RECORDS SUMMARY | 2022-09-09 17:19 | XMS_ITS | Continuity of Care Document ---
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 Hyperlipidemia Active Condition [place] (SNOMED CT 72019625) Hypertension (SNOMED Active Condition [place] 67753292) INGROWING NAIL Active Condition [place] Lack of Housing Active Condition [facility] [place] (ICD-9-CM V60.0) D C BOC latent TB Active Condition [place] (CBOC) Low Back Pain, Active Condition [place] Lumbago LUMBAGO Active Condition [place] Male Erectile Active Condition [facility] Disorder due to a General Medical Condition Morbid obesity Active Condition [facility] [place] [facility] MYOPIA Active Condition [place] NEUROTIC DEPRESSION Active Condition [place] Noncompliance with Active Condition V A CNTRL [...] Polyps 2009 [place] Entered [place] By: [facility] Manas TANG Comment: negative colo 2006 Personality Disorder Active Condition [facility] [place] [facility] RECURR DEPR Active Condition [place] DISORDER-UNSP Sleep apnea (SNOMED Active Condition [place] 59054435) (CBOC) Unemployment * Active Condition [facility] [place] [facility] 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 [place] [facility] Diagnosis: ICD-10-CM Active Diagnosis [facility] S88.919S 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, level HCS unsp, sequelawith Provider Comments: 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, Level unspecified, [place] Diagnosis: ICD-10-CM Active Diagnosis [facility] E11.9 Type 2 [facility] diabetes mellitus [place] without [facility] complicationswith Provider Comments: DM Type 2 w/o Complications Diagnosis: ICD-10-CM Active Diagnosis [facility] Z86.711 Personal WST RN history of pulmonary [place] embolismwith [facility] Provider Comments: H/O: pulmonary embolus ([facility] [id number]) Diagnosis: ICD-10-CM Active Diagnosis [facility] Z47.81 Encounter for [facility] orthopedic aftercare [place] following surgical H CS ampwith Provider Comments: 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 Medications provided include 1) outpatient medications from the last 15 months, and 2) patient-reported medications. Medication Details Route Status Patient Prescription Prescription Last Ordering Order Source Instructions Expires Number Dispense Provider Date Date ALBUTEROL/I INHALE 2 INHALA ACTIVE VANWAGNER 04/12 PRATROPIUM PUFFS BY TATYANA ,2019 CNT RL (RESPIMAT) MOUTH ORAL F [facility] INHL,ORAL EVERY 6 [place] HOURS SETS NEEDED HCS ASPIRIN TAKE ONE ORAL ACTIVE REMY,AL 81MG TAB,EC TABLET ICE 2016 CNTR[facility] BY MOUTH [place] DAILY [place] [facility] HCS ATORVASTATI TAKE ORAL ACTIVE SHEL[place],RA N CA 80MG ONE-HALF IMONDA 2021 CNTRL TAB TABLET DELILAH WSTRN BY MOUTH [place] ONCE SETS DAILY HCS BUPROPION TAKE ONE ORAL ACTIVE VANWAGNER A HCL 150MG TABLET ,2019 CNTRL 12HR TAB,SA BY MOUTH F [facility] TWICE [place] DAILY SETS HCS CHOLECALCIF TAKE ONE ORAL ACTIVE VANWAGNER ALFREDA [...] INJECT SUBCUT ACTIVE VANWAGNER LUDEC(TRESI 80 UNITS ANEOUS ,2019 C NTRL BA 200 SUBCUTAN F WSTRN UNIT)*PA-F* EOUSLY [place] INJ TWICE SETS DAILY HCS LAMOTRIGINE TAKE ONE ORAL ACTIVE VANWAGNER 100MG TAB TABLET ,2019 CNTR[facility] BY MOUTH F [place] ONCE [place] DAILY SETS HCS LIFITEGRAST INSTILL EACH ACTIVE 04/10/2023 [id number] OSHINS TANMAY 5% 1 DROP EYE 2 MATHEW 2021 CNTRL SOLN,OPH,0. INTO J W[facility]N 2ML EACH EYE [place] TWICE SETS DAILY HCS LIRAGLUTIDE INJECT SUBCUT ACTIVE REMY,AL (VICTOZA) 1.8MG ANEOUS ICE 2016 CNTRL 6MG/ML SUBCUTAN WSTRN INJ,SOLN,PE EOUSLY [place] N,3ML ONCE SETS DAILY HCS LISINOPRIL TAKE ONE ORAL ACTIVE VANWAGNER 5MG TAB TABLET ,2019 CNTR[facility] BY MOUTH F [place] ONCE [place] DAILY SETS HCS METFORMIN TAKE ONE ORAL ACTIVE VANWAGNER A HCL 1000MG TABLET ,2019 CNTRL TAB BY MOUTH F [facility] TWICE [place] DAILY SETS HCS POLYETHYLEN TAKE 17 ORAL ACTIVE VANWAGNER E GLYCOL GRAMS (1 ,2019 CNTRL 3350 [...] atus Comments Source Given By Number Code Supervisor Partial Denture Department COVID-19 3 complet [facility] ([facility] 2021 ed CNTR L MRNA, LNP-S, W [facility] PF, 30 [place] MCG/0.3 ML SET S DOSE HCS HEP A-HEP B 3 complet [facility] 2021 ed [facility] [place] [facility] [facility] COVID-19 3 [facility] (PFIZER), 2021 ed CNTR L MRNA, LNP-S, [...] FREE SETS HCS HEP A-HEP B 1 NONE 104 complet sylvie ated [facility] 2019 ed well CN[facility]L [facility] [place] [facility] [facility] INFLUENZA, complet [facility] SE[facility]ON[facility], 2019 ed CNTR L INJECTABLE WST RN [place] [facility] [facility] INFLUENZA, complet [facility] SEASONAL, 2017 ed CNTR L INJECTABLE WST RN [place] [facility] [facility] ZOSTER 2 complet [facility] RECOMBINANT 2017 ed CN TRL [facility] [place] [facility] [facility] ZOSTER 1 complet [facility] RECOMBINANT 2018 ed CN [facility]RL [facility] [place] [facility] [facility] [...] [employer] SP RINGF INFLUENZA-H1N 2009 ed IELD 1-, ALL FORMULATIONS FLU,3 YRS complet Site: [facility] (HISTORICAL) 2008 ed Left I ELD Deltoid FLU,3 YRS complet Site: V A (HISTORICAL) 2007 ed Left C [facility] Deltoid [facility] [place] [facility] [facility] FLU,3 YRS complet V A (HISTORICAL) 2007 ed C [facility] [place] [facility] [facility] PNEUMOCOCCAL, complet Pt states [facility] UNSPECIFIED 2007 ed he had C NTRL FORMULATION Pneumova c [facility]STRN at [facility] StandDown SETS 2998 HCS FLU,3 YRS complet Site: [facility] (HISTORICAL) 2007 ed Right I ELD Deltoid TD(ADULT) 03/10/ RICHARD,DILSHAD 139 complet [facility] UNSPECIFIED 2006 RINE M ed C NTRL FORMULATION [facility]N [place] [facility] FLU,3 YRS complet S BENITA (HISTORICAL) 2005 ed I ELD FLU,3 YRS 08/13/ SELLS,SAM T 88 complet [facility] (HISTORICAL) 2004 ed C NTRL [facility] [place] [facility] [facility] FLU,3 YRS 06/28/ MAVUMKAL,BEAT 88 complet [facility] 2000 CARLYN Gleason ed ON Results Combined list of recent chemistry, hematology and other laboratory results from Department of Defense and Veterans Affairs, ranging from 15 months to all on record, depending upon the facility. Order Results Value Reference Date Interpretation Specimen Commen ts Source Name Range BASIC UREA 23 7 - 25 03/23 Specimen Type: S OBDULIA [facility] METABOLIC NITROGEN /2021 No comment en tered. WSTRN PANEL [MASS/VOLUM Ordering Pr ovider: BALTAZAR SWANSON (fasting) E] IN SERUM Report Re leased Date/Time: Feb 04, 2022 11:15 AM TS HCS OR PLASMA Reporting Lab : [facility] [address] [address] Performing Lab: [facility] [address] [address] BASIC GLUCOSE 211 65 - 100 08/01 H Specimen Type: SERUM [facility] METABOLIC [MASS/VOLUM /2021 No comment entered. WSTRN PANEL E] IN SERUM Ordering Pr ovider: BALTAZAR SWANSON (fasting) OR PLASMA Report Rele ased Date/Time: Feb 04, 2022 11:15 AM TS HCS Reporting Lab: [facility] [address] [address] Performing Lab: [place] [facility] [address] [address] BASIC SODIUM 135 135 - 145 08/ Specimen Type: SERUM [facility] METABOLIC [MOLES/VOLU /2021 No comment entered. WSTRN PANEL ME] IN Ordering Provid er: BALTAZAR SWANSON (fasting) SERUM OR Report Relea sed Date/Time: Feb 04, 2022 11:15 AM TS HCS PLASMA Reporting Lab: [facility] [address] [address] Performing Lab: [facility] [address] [address] BASIC POTASSIUM 4.9 3.5 - 5.0 08/ Specimen Typ e: SERUM [facility] METABOLIC [MOLES/VOLU /2021 No comment entered. WSTRN PANEL ME] IN Ordering Provid er: BALTAZAR SWANSON (fasting) SERUM OR Report Relea sed Date/Time: Feb 04, 2022 11:15 AM TS HCS PLASMA Reporting Lab: [facility] [address] [address] Performing Lab: [place] [facility] [place] [facility] [address] [facility] [address] BASIC CHLORIDE 100 100 - 110 03/23 Specimen Type : SERUM [facility] METABOLIC [MOLES/VOLU /2021 No comment entered. WSTRN PANEL ME] IN Ordering Provi goran: BALTAZAR SWANSON (fasting) SERUM OR Report Relea sed Date/Time: Feb 04, 2022 11:15 AM TS [facility] PLASMA Reporting Lab: [facility] [place] [facility] [address] [facility] [address] Performing Lab: [facility] [place] [facility] [address] [facility] [address] BASIC CARBON 25 20 - 30 03/23 Specimen Type: S OBDULIA [facility] METABOLIC DIOXIDE, /2021 No comment en tered. WSTRN PANEL TOTAL Ordering Provid er: BALTAZAR SWANSON (fasting) [MOLES/VOLU Report Re leased Date/Time: Feb 04, 2022 11:15 AM [facility] ME] IN Reporting Lab: [facility] SERUM OR [address] [facility] [address] PLASMA Performing Lab: [facility] [place] [facility] [address] [facility] [facility] [address] BASIC CREATININE 1.14 0.50 - 08 Specimen Type : SERUM [facility] METABOLIC [MASS/VOLUM 1.40 /2021 No comment entered. WSTRN PANEL E] IN SERUM Ordering Pr ovider: BALTAZAR SWANSON (fasting) OR PLASMA Report Rele ased Date/Time: Feb 04, 2022 11:15 AM [facility] Reporting Lab: [facility] [place] [facility] [address] [facility] [facility] [address] Performing Lab: [facility] [place] [facility] [address] [facility] [facility] [address] BASIC GLOMERULAR 72 60 03/23 Specimen Type : SERUM [facility] METABOLIC FILTRATION /2021 No comment entered. WSTRN PANEL RATE/1.73 Ordering Prov ider: BALTAZAR SWANSON (fasting) SQ Report Releas ed Date/Time: Feb 04, 2022 11:15 AM [facility] M.PREDICTED Reporting L ab: [facility] [place] [facility] [VOLUME [address] [facility] [address] RATE/AREA] Performing L ab: [facility] [place] [facility] IN SERUM, [address] [facility] [address] PLASMA OR BLOOD BY CREATININE- BASED FORMULA (CKD-EPI) CBC LEUKOCYTES 9.13 4.50 - 08/ Specimen Type : BLOOD [facility] [#/VOLUME] 11.00 No comment en tered. WSTRN IN BLOOD BY Ordering Pr ovider: BALTAZAR SWANSON [place] AUTOMATED Report Releas ed Date/Time: Feb 04, 2022 11:15 AM TS HCS COUNT Reporting Lab: [facility] [place] [facility] [address] [facility] [address] Performing Lab: [facility] [place] [facility] [address] [facility] [address] CBC ERYTHROCYTE 4.34 4.23 - 08 Specimen Typ e: BLOOD [facility] S 5.66 No comment enter ed. WSTRN [#/VOLUME] Ordering Pro vider: BALTAZAR SWANSON [place] IN BLOOD BY Report Rele ased Date/Time: Feb 04, 2022 11:15 AM TS HCS AUTOMATED Reporting Lab : [facility] [place] [facility] COUNT [address] [facility] [address] Performing Lab: [facility] [place] [facility] [address] [facility] [address] CBC HEMOGLOBIN 14.1 12.8 - 17 03/23 Specimen Ty pe: BLOOD [facility] [MASS/VOLUM /2021 No comment e ntered. WSTRN E] IN BLOOD Ordering Pr ovider: BALTAZAR SWANSON [place] Report Released Date/Time: Feb 04, 2022 11:15 AM TS HCS Reporting Lab: [facility] [place] [facility] [address] [facility] [address] Performing Lab: [facility] [place] [facility] [address] [facility] [address] CBC HEMATOCRIT 40.4 39.2 - 08 Specimen Type : BLOOD [facility] [VOLUME 50.4 No comment enter ed. WSTRN FRACTION] Ordering Prov ider: BALTAZAR SWANSONCHWILBER OF BLOOD BY Report Rele ased Date/Time: Feb 04, 2022 11:15 AM TS HCS AUTOMATED Reporting Lab : [facility] [place] [facility] COUNT [address] [facility] [address] Performing Lab: [facility] [place] [facility] [address] [facility] [address] CBC MCV 93.1 82 - 99 03/23 Specimen Type: B LOOD [facility] [ENTITIC /2021 No comment ente red. WSTRN VOLUME] BY Ordering Pro vider: BALTAZAR SWANSON AUTOMATED Report Releas ed Date/Time: Feb 04, 2022 11:15 AM TS HCS COUNT Reporting Lab: [facility] [place] [facility] [address] [facility] [address] Performing Lab: [facility] [place] [facility] [address] [facility] [address] CBC MCHC 34.9 30.8 - 08 Specimen Type: B LOOD [facility] [MASS/VOLUM 35.1 No comment e ntered. WSTRN E] BY Ordering Provid er: BALTAZAR SWANSON AUTOMATED Report Rele ed Date/Time: Feb 04, 2022 11:15 AM TS HCS COUNT Reporting Lab: [facility] [place] [facility] [address] [facility] [address] Performing Lab: [facility] [place] [facility] [address] [facility] [address] CBC PLATELETS 188 140 - 360 03/23 Specimen Typ e: BLOOD [facility] [#/VOLUME] /2021 No comment en tered. WSTRN IN BLOOD BY Ordering Pr ovider: BALTAZAR SWANSONCHWILBER AUTOMATED Report Releas ed Date/Time: Feb 04, 2022 11:15 AM TS HCS COUNT Reporting Lab: [facility] [place] [facility] [address] [facility] [address] Performing Lab: [facility] [place] [facility] [address] [facility] [address] CBC ERYTHROCYTE 11.6 12.0 - 08/01 L Specimen Typ e: BLOOD [facility] DISTRIBUTIO 16.0 /2021 No comment e ntered. WSTRN N WIDTH Ordering Provid er: BALTAZAR SWANSON [RATIO] BY Report Relea sed Date/Time: Feb 04, 2022 11:15 AM TS HCS AUTOMATED Reporting Lab : [facility] [place] [facility] COUNT [address] [facility] [address] Performing Lab: [facility] [place] [facility] [address] [facility] [address] CBC MCH 32.5 26.2 - 08 Specimen Type: B LOOD [facility] [ENTITIC 32.6 /2021 No comment ente red. WSTRN MASS] BY Ordering Provi goran: BALTAZAR SWANSONCHWILBER AUTOMATED Report Releas ed Date/Time: Feb 04, 2022 11:15 AM TS HCS COUNT Reporting Lab: [facility] [place] [facility] [address] [facility] [address] Performing Lab: [facility] [place] [facility] [address] [facility] [address] HEMOGLOBI HEMOGLOBIN 8.1 4.0 - 5.6 08/ [...] BLOOD BY Ordering Pr ovider: BALTAZAR SWANSON TS HCS HPLC Report Released Date/Time: Feb 04, 2022 11:15 AM Reporting Lab: [facility] [place] [facility] [address] [facility] [address] Performing Lab: [facility] [place] [facility] [address] [facility] [address] LIVER PROTEIN 7.4 6.0 - 8.3 03/23 Specimen Type: SERUM [facility] FUNCTION [MASS/VOLUM /2021 No comment entered. WSTRN E] IN SERUM Ordering Pr ovider: BALTAZAR SWANSON OR PLASMA Report Releas ed Date/Time: Feb 04, 2022 11:15 AM TS [facility] Reporting Lab: [facility] [place] [facility] [address] [facility] [address] Performing Lab: [facility] [place] [facility] [address] [facility] [address] LIVER ALBUMIN 4.1 3.5 - 5.0 03/23 Specimen Type: SERUM [facility] FUNCTION [MASS/VOLUM /2021 No comment entered. WSTRN E] IN SERUM Ordering Pr ovider: BALTAZAR SWANSONCHWILBER OR PLASMA Report Releas ed Date/Time: Feb 04, 2022 11:15 AM TS [facility] Reporting Lab: [facility] [place] [facility] [address] [facility] [address] Performing Lab: [facility] [place] [address] [address] LIVER ALKALINE 80 40 - 150 03/23 Specimen Type: SERUM [facility] FUNCTION PHOSPHATASE No comment entered. WSTRN [ENZYMATIC Ordering Pro vider: BALTAZAR SAWNSON ACTIVITY/VO Report Rele ased Date/Time: Feb 04, 2022 11:15 AM TS HCS LUME] IN Reporting Lab: [facility] [place] [facility] SERUM OR [address] [facility] [address] PLASMA Performing Lab: [facility] [place] [facility] [address] [facility] [address] LIVER ASPARTATE 20 5 - 34 03/23 Specimen Type: SERUM [facility] FUNCTION AMINOTRANSF /2021 No comment entered. WSTRN ERASE Ordering Provid er: BALTAZAR SWANSON [ENZYMATIC Report Relea sed Date/Time: Feb 04, 2022 11:15 AM TS HCS ACTIVITY/VO Reporting L ab: [facility] [place] [facility] LUME] IN [address] [facility] [address] [address] SERUM OR Performing Lab : [facility] [place] [facility] PLASMA [address] [facility] [address] LIVER ALANINE 26 6 - 55 03/23 Specimen Type: S OBDULIA [facility] FUNCTION AMINOTRANSF /2021 No comment entered. WSTRN ERASE Ordering Provid er: BALTAZAR SWANSON [ENZYMATIC Report Relea sed Date/Time: Feb 04, 2022 11:15 AM TS HCS ACTIVITY/VO Reporting L ab: [facility] [place] [facility] LUME] IN [address] [facility] [address] SERUM OR Performing Lab : [facility] [place] [facility] PLASMA [address] [facility] [address] LIVER BILIRUBIN.T 0.5 0.2 - 1.2 03/23 Specimen T ype: SERUM [facility] FUNCTION OTAL /2021 No comment ente red. WSTRN [MASS/VOLUM Ordering Pr ovider: BALTAZAR SWANSON E] IN SERUM Report Rele ased Date/Time: Feb 04, 2022 11:15 AM TS HCS OR PLASMA Reporting Lab : [facility] [place] [facility] [address] [facility] [address] Performing Lab: [facility] [place] [facility] [address] [facility] [address] MAGNESIUM MAGNESIUM 1.6 1.6 - 2.6 03/23 Specimen T ype: SERUM [facility] [MASS/VOLUM /2021 No comment e ntered. WSTRN E] IN SERUM Ordering Pr ovider: BALTAZAR SWANSON OR PLASMA Report Releas ed Date/Time: Feb 04, 2022 11:15 AM TS HCS Reporting Lab: [facility] [place] [facility] [address] [facility] [address] Performing Lab: [facility] [place] [facility] [address] [facility] [address] PT & INR INR IN 1.3 03/23 Specimen Type: PLASMA [facility] (COUMADIN PLATELET /2021 No comment en tered. WSTRN ) POOR PLASMA Ordering Pr ovider: BALTAZAR SWANSON BY Report Released Date/Time: Feb 04, 2022 11:15 AM TS [facility] COAGULATION Reporting L ab: [facility] [place] [facility] ASSAY [address] [facility] [address] Performing Lab: [facility] [place] [facility] [address] [facility] [address] PT & INR PROTHROMBIN 14.7 10.0 - 08/ H Specimen Ty pe: PLASMA [facility] (COUMADIN TIME (PT) 13.1 /2021 No comment e ntered. WSTRN ) Ordering Provid er: BALTAZAR SWANSON Report Released Date/Time: Feb 04, 2022 11:15 AM HCS Reporting Lab: [facility] [place] [facility] [address] [facility] [address] Performing Lab: [facility] [place] [facility] [address] [facility] [address] TSH THYROTROPIN 1.41 0.35 - 08 Specimen Typ e: SERUM [facility] [UNITS/VOLU 5.00 No comment e ntered. WSTRN ME] IN Ordering Provid er: BALTAZAR SWANSON SERUM OR Report Release d Date/Time: Feb 04, 2022 11:15 AM [facility] PLASMA Reporting Lab: [facility] [place] [facility] [address] [facility] [address] Performing Lab: [facility] [place] [facility] [address] [facility] [address] VITAMIN D 25-HYDROXYV 38 30 - 100 [...] any concern. Jadyn MF, Zac NC, Charlee OBRIEN, et al. Evaluation, treatment and prevention of vitamin D deficiency: an Endocrine So [facility] clinical practice guideline. J Clin Endocrinol Metab. 2011;96(7):1911-30. For additional information, please refer to http://education.[employer]/faq/BSC797 (This link is being provided for informational/ educational purposes only.) This test was developed and its analytical performance characteristics have been determined by [facility] [place], [place]. It has no t been cleared or approved by the U.S. Food and Drug Administration. This assay has been validated pursuant to the CLIA regulations and is used for clinical purposes. This test was devrebecca opshady and its leyla lytical performance characteristics have been determined by [facility] [place], [place]. It has not been cleared or approved by the U.S. Food and Drug Administratio n. This assay obrien s been validated pursuant to the CLIA regulations and is used for clinical purposes. Test Performed by [facility], [employer] [facility], [address] [place] [address] Pepe Murguia M.D., Ph.D., Director of Laboratories , CLIA [id number] TEST PERFORMED AT: , Ordering Provid er: BALTAZAR SWANSON Report Released Date/Time: Feb 04, 2022 11:15 AM Reporting Lab: [facility] WSTRN [facility] [address] [facility] [address] Performing Lab: [facility] WSTRN [facility] [address] [facility], [address] [facility] [address] VITAMIN D 25-HYDROXYV 38 03/23 Specimen T ype: SERUM [facility] 25-[place] ITAMIN D3 /2021 Comment: Suad min [...] there is any concern. Jadyn MF, Zac EDWARDS, Charlee OBRIEN, et al. Evaluation, treatment and prevention of vitamin D deficiency: an Endocrine So [facility] clinical practice guideline. J Clin Endocrinol Metab. 2011;96(7):1911-30. For additional information, please refer to http://education.[employer]/faq/HIW901 (This link is being provided for informational/ educational purposes only.) This test was developed and its analytical performance characteristics have been determined by [facility] [place]. It has no t been cleared or approved by the U.S. Food and Drug Administration. This assay has been validated pursuant to the CLIA regulations and is used for clinical purposes. This test was sim medrano and its leyla lytical performance characteristics have been determined by [place] It has not been cleared or approved by the U.S. Food and Drug Administratio n. This assay obrien s been validated pursuant to the CLIA regulations and is used for clinical purposes. Test Performed by [facility], [employer] [facility], [address] [place] [address] Pepe Murguia M.D., Ph.D., Director of Laboratories , CLIA [id number] TEST PERFORMED AT: , Ordering Provid er: BALTAZAR SWANSON Report Released Date/Time: Feb 04, 2022 11:15 AM Reporting Lab: [facility] [address] [facility] [address] Performing Lab: [facility] [place] [facility] [address] [place], [address] [facility] [address] VITAMIN D CALCIFEROL <4 03/23 Specimen Ty [...] there is any concern. Jadyn MF, Zac EDWARDS, Charlee OBRIEN, et al. Evaluation, treatment and prevention of vitamin D deficiency: an Endocrine [facility] clinical practice guideline. J Clin Endocrinol Metab. 2011;96(7):1911-30. For additional information, please refer to http://education.[employer]/faq/LHQ687 (This link is being provided for informational/ educational purposes only.) This test was developed and its analytical performance characteristics have been determined by [facility] [place], [place]. It has no t been cleared or approved by the U.S. Food and Drug Administration. This assay has been validated pursuant to the CLIA regulations and is used for clinical purposes. This test was devrebecca medrano and its leyla lytical performance characteristics have been determined by [facility] [place], [place]. It has not been cleared or approved by the U.S. Food and Drug Administratio n. This assay obrien s been validated pursuant to the CLIA regulations and is used for clinical purposes. Test Performed by [facility], [address], [place] Pepe Murguia M.D., Ph.D., Director of Laboratories , [place] [id number] TEST PERFORMED AT: , Ordering Provid er: BALTAZAR SWANSON Report Released Date/Time: Feb 04, 2022 11:15 AM Reporting Lab: [facility] [place] [facility] [address] [address] Performing Lab: [facility] [place] [facility] [address] [facility], [address] [facility] [address] Vital Signs Combined list of inpatient and outpatient Vital Signs from Department of Defense and Veterans Affairs, ranging from 12 months to all on record, depending upon the facility. Vital Sign Value Date Comments Source SYSTOLIC BLOOD PRESSURE 102 03/23/2022 [facility] 11:28:01 [place] [facility] DIASTOLIC BLOOD PRESSURE 72 03/23/2022 [facility] 11:28:01 [place] [facility] PULSE OXIMETRY 90% 03/23/2022 [facility] 11:28:01 [place] [facility] PAIN 0 03/23/2022 [facility] 11:28:01 [place] [facility] TEMPERATURE 98.2 03/23/2022 [facility] 11:28:01 [place] [facility] PULSE 86 03/23/2022 [facility] 11:28:01 [place] [facility] RESPIRATION 16 03/23/2022 [facility]01 [place] [facility] SYSTOLIC BLOOD PRESSURE 104 02/16/2022 [facility] 09:59:04 [place] [facility] DIASTOLIC [...] months. 2) Encounters from the Department of [facility] facilities going back up to 280 months. Location Location Encounter Encounter Reason Attending ADM DC Stat us Disposition Source Details Type Number For Provider Date Date Visit Outpatient [id number] 03/12 [facility] Encounter [id number] /2021 [facility] [place] [place] [facility] Outpatient [id number] 03/12 [facility] Encounter [id number] /2021 [facility] [place] [facility] Outpatient 24726-5.63 03/14 [facility] Encounter [id number] [facility] [place] [facility] Outpatient 22305-4.63 03/14 [facility] Encounter [id number] /2021 [facility] [place] [facility] PT EVAL [id number] Diagnos HERMINIOKER 03/17 [facility] HIGH [id number] is: RY CNTRL COMPLEX 45 ICD-10- WSTRN MIN CM [place] Z47.81 SETS Encount [facility] er for orthope dic afterca re followi ng surgica l amp<br/ >with Provide r Comment s: 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 Diagnos YASSINE,LORENE 03/18 [facility] EST [id number] is: H B CNTRL MINIMAL ICD-10- WSTRN PROB CM [place] H52.7 SETS Unspeci [facility] fied disorde r of refract ion<br/ >with Provide r Comment s: Unspeci fied Disorde r of Refract ion Outpatient [id number] 03/18 [facility] Encounter [id number] [facility] [place] [facility] Outpatient 34950-7.63 03/24 [facility] Encounter [id number] [facility] [place] [facility] Outpatient 00135-0.63 03/27 [facility] Encounter [id number] [facility] [place] [facility] Outpatient 82984-0.63 04/07 [facility] Encounter [id number] [facility] [place] [facility] Outpatient 52005-0.63 04/15 [facility] Encounter [id number] [facility] [place] [facility] Outpatient [id number] 04/22 [facility] Encounter [id number] [facility] [place] [place] [facility] Outpatient 56259-5.63 04/30 [facility] Encounter [id number] [facility] [place] [place] [facility] Outpatient 06680-0.63 05/12 [facility] Encounter [id number] [facility] [place] [place] [facility] Outpatient 10243-2.63 05/19 [facility] Encounter [id number] [facility] [place] [facility] Outpatient 15963-5.63 06/24 [facility] Encounter [id number] [facility] [place] [facility] Outpatient 93763-7.63 07/21 [facility] Encounter [id number] [facility] [place] [facility] Outpatient 57407-4.63 08/04 [facility] Encounter [id number] [facility] [place] [facility] Outpatient 84848-4.63 08/15 [facility] Encounter [id number] [facility] [place] [facility] Outpatient [id number] 08/23 [facility] Encounter [id number] [facility] [place] [facility] Outpatient 46225-7.63 09/23 [facility] Encounter [id number] [facility] [place] [facility] Outpatient 91103-8.63 09/26 VA Encounter [id number] /2022 [facility] [place] [facility] Outpatient 85547-9.63 09/29 [facility] Encounter [id number] [facility] [place] [facility] Outpatient 26455-1.63 10/22 [facility] Encounter [id number] [facility] [place] [facility] Outpatient 13023-0.63 11/21 [facility] Encounter [id number] /2022 [facility] [place] [facility] Outpatient 25355-9.63 12/11 [facility] Encounter [id number] /2022 [facility] [place] [facility] Outpatient 06483-4.63 12/12 [facility] Encounter [id number] /2022 [facility] [place] [facility] Outpatient 38070-5.63 12/19 [facility] Encounter [id number] [facility] [place] [facility] Outpatient [id number] 12/19 [facility] Encounter [id number] [facility] [place] [facility] Outpatient 82513-3.63 12/22 [facility] Encounter [id number] [facility] [place] [facility] Outpatient 25377-2.63 12/25 [facility] Encounter [id number] [facility] [place] [facility] Outpatient 29319-6.63 01/01 [facility] Encounter [id number] [facility] [place] [facility] Outpatient 76691-3.63 01/10 [facility] Encounter [id number] [facility] [place] [facility] Outpatient 73417-0.63 01/16 [facility] Encounter [id number] [facility] [place] [facility] Outpatient 61666-0.63 01/21 VA Encounter [id number] /2022 [facility] [place] [facility] Outpatient 87969-2.63 02/03 [facility] Encounter [id number] [facility] [place] [facility] OFFICE O/P 67295-8.63 Diagnos SKY, 02/16 [facility] EST LOW [id number] is: BALTAZAR CNT RL 20-29 MIN ICD-10- WSTRN CM [place] Z47.81 SETS [facility] er for orthope dic afterca re followi ng surgica l amp<br/ >with Provide r Comment s: 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 (SCT [id number] 04) Outpatient [id number] 02/19 [facility] Encounter [id number] /2022 [facility] [place] [facility] Outpatient 39300-4.63 02/20 [facility] Encounter [id number] /2022 [facility] [place] [facility] Outpatient 77323-9.63 03/11 [facility] Encounter [id number] /2022 [facility] [place] [facility] Outpatient 81251-5.63 03/11 [facility] Encounter [id number] /2022 [facility] [place] [facility] Outpatient [id number] 03/18 [facility] Encounter [id number] [facility] [place] [facility] Outpatient 66482-3.63 03/18 [facility] Encounter [id number] /2022 [facility] [place] [facility] Outpatient 08519-8.63 03/19 [facility] Encounter 1. [facility] [place] [facility] Outpatient 80380-0.63 03/19 [facility] Encounter 1. [facility] [facility] Outpatient [id number] 03/19 VA Encounter [id number] /2022 [facility] [place] [facility] Outpatient 69819-5.63 03/20 VA Encounter [id number] /2022 [facility] [facility] OFFICE O/P 50483-4.63 Diagnos SKY, 03/23 [facility] EST LOW [id number] is: BALTAZAR CNT RL 20-29 MIN ICD-10- WSTRN CM [place] Z86.711 SETS Persona [facility] l history of pulmona ry embolis m
w ith Provide r Comment s: H/O: pulmona ry embolus (SCT [id number] 07) Outpatient 23758-2.63 03/24 [facility] Encounter [id number] [facility] [place] [facility] Outpatient 90008-3.63 03/25 VA Encounter [id number] /2022 [facility] [place] [facility] Outpatient 12572-4.63 03/27 [facility] Encounter [id number] [facility] [place] [facility] Outpatient 00955-2.63 03/27 [facility] Encounter [id number] /2022 [facility] [place] [facility] Outpatient 15746-2.63 04/09 [place] [facility] Encounter 19AA. PTON 552 DETERMINE 41562-8.63 Diagnos OSHIJAMISONE, 04/09 [facility] REFRACTIVE [id number] is: MATHEW Gleason /2021 CNTRL STATE ICD-10- WSTRN CM [place] E11.9 SETS Type 2 HCS diabete s mellitu s without complic ations< br/>wit h Provide r Comment s: DM Type 2 w/o Complic ations Outpatient 06595-4.63 04/25 [facility] Encounter [id number] [facility] [place] [facility] Outpatient 98363-0.63 05/18 VA Encounter [id number] /2022 [facility] [place] [facility] Outpatient 10003-0.63 05/18 [facility] Encounter [id number] [facility] [place] [facility] Outpatient 15886-5.63 05/21 VA Encounter [id number] /2022 [facility] [place] [facility] Outpatient 53711-3.63 05/28 [facility] Encounter [id number] /2022 [facility] [place] [facility] Outpatient 16995-3.63 05/28 [facility] Encounter [id number] /2022 [facility] [place] [facility] Outpatient 72383-5.63 06/16 VA Encounter [id number] /2022 [facility] [place] [facility] Outpatient 12493-8.63 07/06 [facility] Encounter [id number] /2022 [facility] [place] [facility] Outpatient 32238-0.63 07/08 [facility] Encounter [id number] [facility] [place] [facility] Outpatient 48289-8.63 07/20 [facility] Encounter [id number] /2022 [facility] [place] [facility] Outpatient 41575-3.63 07/21 VA Encounter [id number] /2022 [facility] [place] [facility] Outpatient 76637-0.63 07/27 VA Encounter [id number] /2022 [facility] [place] [facility] Outpatient 52753-1.63 07/28 [facility] Encounter [id number] [facility] [place] [facility] Outpatient 74978-4.63 08/03 [facility] Encounter [id number] [facility] [place] [facility] Outpatient 62231-4.63 08/18 [facility] Encounter [id number] [facility] [place] [facility] SELF CARE 12662-5.63 Diagnos RACHEL ALEXANDRE 08/31 [place] MNGMENT [id number] is: ICA CNTRL TRAINING ICD-10- WSTRN CM [place] S88.919 SETS S [facility] Complet e traumat ic amp of unsp low leg, level unsp, sequela
wi th Provide r Comment s: Complet e Traumat ic Amputat ion of unspeci fied lower Leg, Level unspeci fied, Sequela Outpatient [id number] 09/03 [facility] Encounter [id number] /2023 [facility] [place] [facility] Social History Combined list of available smoking, tobacco, and other social history from Department of Defense andVeterans Affairs facilities. Social History Response Date Comment Source Type Tobacco smoking VA-TOBACCO FORMER 02/16/2022 VA [facility] status NHIS USER [place] [facility] History of VA-TOBACCO QUIT 15 02/16/2022 [facility] tobacco use YRS OR MORE [place] [facility] History of VA-TOBACCO NEVER 02/04/2021 VA [facility] tobacco use USED [place] [facility] History of VA-TOBACCO QUIT 15 05/08/2019 [facility] tobacco use YRS OR MORE [place] [facility] History of VA-TOBACCO NEVER 10/26/2018 [facility] tobacco use [facility] History of QUIT TOBACCO USE > 10/21/2017 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 [facility] tobacco use 7 YEARS AGO quitting smoking 30 [place] [facility] years ago, cigarettes History of QUIT TOBACCO USE 12/06/2015 [facility] tobacco use [facility] PAST [facility] History of TOBACCO INPATIENT 12/05/2014 [facility] tobacco use NO USE 30 DAYS [place] [facility] History of LIFETIME 12/05/2014 [facility] tobacco use NON-TOBACCO USER [facility] History of TOBACCO INPATIENT 11/03/2014 [facility] tobacco use NO USE 30 DAYS [place] [facility] History of TOBACCO INPATIENT 11/02/2014 [facility] STR[facility] tobacco use NO USE 30 DAYS [place] [facility] History of HISTORY OF SMOKING 12/21/2003 stopped tobacco 1-2 [facility] [place] tobacco use years ago History of QUIT TOBACCO USE > 10/06/2003 [facility] Plan of Care List of future care activities from Department of Veterans Affairs facilities. Additional future care activities may be listed in the Assessment and Plan section. Date/Time Care Activity Care Activity Detail Facility 09/18/2022 AMBULATORY - REHAB AMBULATORY - REHAB [facility] MEDICINE MEDICINE [facility] Advance Directives List of completed, amended, or rescinded Advance Directives on record at Department of Veterans Affairs facilities. An actual copy of the Directive is not included. Date Advance Directive Provider Source 09/06/2007 ADVANCE DIRECTIVE ROBERTO FONTENOT [facility]
--- OUTSIDE RECORDS SUMMARY | 2022-09-09 17:21 | XMS_ITS | Encounter Summary ---
:1960 Author Organization Department [facility] rs Address [address] [place] [address] Support Name Relationship Address Phone MR MRS NERI KENNEDY Unavailable [address] [place] [address] MR MRS NERI KENNEDY Unavailable [address] [place] [address] Insurance Providers: All historical and current Section Date Range: From patient's date of to the date document was created.This section includes the names of all active insurance providers for the patient. Insurance Type of Plan Start of End of Group Member Insurance Policy P atient's Provider Coverage Name Policy Policy Number ID Provider's Crowell's Relationship Coverage Coverage Telephone Name to Policy Number Crowell [employer]ICARE MCR Oct 21, [id number] TREVOR LEMUS PATIENT CARE ADVANTAGE (WNR) [id number] [facility] (WNR) MEDICAID MEDICAID [facility] Aug 23, [facility] [id number] [phone] [facility]IN[facility] [id number] [facility] MEDICARE PART Nov 21, PART A [id number] [phone] TREVOR KENNEDY PATIENT (WNR) (M) A 2002A 00 FFREY MEDICARE MEDICARE PART Nov 21, PART B [id number] [phone] TREVOR KENNEDY PATIENT (WNR) (M) B 2002A [employer]REY MEDICARE MEDICARE PART Nov 21, PART A [id number] TREVOR KENNEDY PATIENT (WNR) (M) A 2002A [employer] MEDICARE MEDICARE PART Nov 21, PART B [id number] [phone] TREVOR KENNEDY PATIENT (WNR) (M) B [id number] FFREY Selected Encounter This section includes the information on record at [place] for the Encounter. Date/Time Encounter Type Encounter Description Reason Provider Source Dec 19, 2021 09:35 Outpatient Encounter COMMUNITY [facility]ARE AM CONSULT IHE Encounter Template Text not used by [place] Plan of Treatment: Future Appointments (+ 6 months) and Future Tests (+/- 45 days) The Plan of Treatment section includes future care activities for the patient from all [place] treatmentfacilities. This section includes future appointments and future orders which are active, pending orscheduled.Future Appointments This section includes appointments that were scheduled to occur 6 months from the date of the Encounter, up to a maximum of 20 appointments. The data comes from all [facility]. Appointment Date/Time Appointment Type Appointment Facili ty Name January 01, 2022 08:00 AM [facility]UL[facility]ORY [facility]INE [place] [facility] January 16, 2022 09:15 AM [facility] [place] [facility] Feb 16, 2022 10:00 AM [facility] [place] [facility] [place] [facility] Mar 23, 2022 11:30 AM [facility] [place] [facility] [place] [facility] Mar 25, 2022 08:00 AM [facility] [place] [facility] Apr 09, 2022 09:00 AM AMBULATORY [facility] [place] [facility] May 18, 2022 08:30 AM [facility] Active, Pending, and Scheduled Orders This section includes a listing of several types of active, pending, and scheduled orders, including clinic medications orders, diagnostic test orders, procedure orders and consult orders; where the start date of the order is 45 days before the date of the Encounter or 45 days after the date of the Encounter. The data comes from all [facility]. Test Date/Time Test Type Test Details Facility Name December 31, 2021 09:10 AM Consult Order [facility] [employer] Social History: Smoking Status (Most current) and Tobacco Use (All prior to encounter date) This section includes the most current, and the historical, smoking and tobacco-related health factors from the [place] facility where the Encounter took place.Current Smoking Status This section includes the most current smoking, or tobacco-related health factor, from the [place] facility where the Encounter took place. Date/Time Current Smoking Status Comment Facility Feb 04, 2021 11:00 AM VA-TOBACCO NEVER USED VA C NTRL WSTRN [facility] Tobacco Use History This section includes a history of the smoking, or tobacco- related health factors, that were collected on or before the date of the Encounter. The data comes from the [place] facility where the Encounter took place. Date/Time Smoking Status/Tobacco Comment Facility Use Feb 04, 2021 11:00 VA-TOBACCO USE DECLINED VA CN TRL [facility]STRN AM TO [facility] May 08, 2019 11:06 VA-TOBACCO FORMER USER [facility] CNT RL [facility] AM [place] [facility] May 08, 2019 11:06 VA-TOBACCO QUIT 15 YRS VA CNT RL WSTRN AM OR MORE [facility] Oct 26, 2018 11:33 VA-TOBACCO NEVER USED VA CNTR L [place] [facility] Oct 21, 2017 09:29 QUIT TOBACCO USE > 7 VA [facility]L 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, cigarettes [facility] Dec 06, 2015 09:59 QUIT TOBACCO USE IN PAST [place] C [facility]L [facility] Dec 05, 2014 02:31 TOBACCO INPATIENT NO USE [facility] PM 30 [facility]YS [facility] Dec 05, 2014 01:37 LIFETIME NON-TOBACCO [facility] PM USER [facility] Nov 03, 2014 01:14 TOBACCO INPATIENT NO USE [facility] C [facility] [place] PM 30 DAYS [place] [facility] Nov 02, 2014 10:36 TOBACCO INPATIENT NO USE [facility] C [facility] [place] AM 30 DAYS [place] [facility] Oct 06, 2003 03:47 QUIT TOBACCO USE > 7 VA CNTRL WSTR[facility] AM YEARS AGO [facility] Advance Directives: All historical and current Section Date Range: From patient's date of to the date document was created. This section includes ALL of a patient's completed or amended [place] Advance and Rescinded Directives. The entries below indicate that a directive exists for the patient, but an actual copy is not included with this document. The data comes from all [place] facilities. Date Advance Directives Provider Source Sep 06, 2007 ADVANCE DIRECTIVE ROBERTO FONTENOT [place] [facility] Encounter Notes: All associated encounter notes This section contains the clinical notes associated to the Encounter. Date/Time Encounter Note(s) Provider Source Dec 19, 2021 09:35 AM NONVA NOTE: ANKIT HOYT [facility] LOCAL TITLE: COMMUNITY CARE COORDINATION PLAN STANDARD TITLE: NONVA NOTE DATE OF NOTE: DEC 19, 2021@09:35 ENTRY DATE: DEC 19, 2021@09:35:52 AUTHOR: ANKIT HOYT EXP COSIGNER: URGENCY: STATUS: COMPLETED [place] self-presented to community emergency fa cility Emergency Notification Intake Date Presenting to the Facility: Nov [facility] Name: Hospital: [place], [place] Address: City: [place] State: Zip Code: Phone : Chief complaint: L LEG PAIN Primary Diagnosis: Patient Admitted? Yes Route of Admission: ER Date/Time of Admission: Nov@07:50 Admitting Diagnosis: L LEG PAIN Community Care Provider: Confirm Level of Care: Community Facility Point of Contact: Name: Kaur Phone: info from ECRA /tan/ ANKIT TOURE Signed: 12/19/2021 09:36 Receipt Acknowledged By: * AWAITING SIGNATURE * BETHANIE ANTOINE * AWAITING SIGNATURE * SHASHANK MCDONALD * AWAITING SIGNATURE * SHADY RENO * AWAITING SIGNATURE * JORGE L GEORGE * AWAITING SIGNATURE * BALTAZAR SWANSON
--- OUTSIDE RECORDS SUMMARY | 2022-09-09 17:21 | XMS_ITS ---
:1960 Author Organization Department [facility] rs Address [address] [place] [address] Support Name Relationship Address Phone MR MRS NERI KENNEDY Unavailable [address] [place] [address] MR MRS NERI KENNEDY Unavailable [address] [place] [address] Insurance Providers: All historical and current Section [...] Number Crowell COMMONWEAL MEDICARE MCR Oct 21, [id number] TREVOR LEMUS PATIENT CARE ADVANTAGE (WNR) 2018 [id number] [facility] (WNR) MEDICAID MEDICAID [facility] Aug 23, [facility] [id number] [phone] TREVOR TRINH [facility]IENT [facility] 2014 D [id number] FFRE[facility] MEDICARE PART Nov 21, PART A [id number] [phone] TREVOR KENNEDY PATIENT (WNR) (M) A 2002A 00 FFREY MEDICARE MEDICARE PART Nov 21, PART B [id number] [phone] TREVOR KENNEDY PATIENT (WNR) (M) B 2002A 00 FFREY MEDICARE MEDICARE PART Nov 21, PART A [id number] TREVOR KENNEDY PATIENT (WNR) (M) A 2002A FFREY MEDICARE MEDICARE PART Nov 21, PART B [id number] TREVOR KENNEDY PATIENT (WNR) (M) B 2002 27A 4 FFREY Selected Encounter This section includes the information on record at [place] for the Encounter. Date/Time Encounter Type Encounter Description Reason Provider Source December 22, 2021 11:23 Outpatient Encounter [facility]ITY [facility] AM CONSULT IHE Encounter Template Text not used by [place] Plan of Treatment: Future Appointments (+ 6 months) and Future Tests (+/- 45 days) The Plan of Treatment section includes future care activities for the patient from all [place] treatmentfacilities. This section includes future appointments and future orders which are active, pending orscheduled.Future Appointments This section includes appointments that were scheduled to occur 6 months from the date of the Encounter, up to a maximum of 20 appointments. The data comes from all [facility]. Appointment Date/Time Appointment Type Appointment Facili ty Name January 01, 2022 08:00 AM AMBULATORY [facility]ICINE [place] [facility] January 16, 2022 09:15 AM [facility] MEDICINE [place] [facility] Feb 16, 2022 10:00 AM AMBULATORY MEDICINE [place] [facility] Mar 23, 2022 11:30 AM [facility] MEDICINE [place] [facility] Mar 25, 2022 08:00 AM [facility] MEDICINE [place] [facility] Apr 09, 2022 09:00 AM AMBULATORY [facility] [place]L [place] [facility] May 18, 2022 08:30 [facility] Active, Pending, and Scheduled Orders This section includes a listing of several types of active, pending, and scheduled orders, including clinic medications orders, diagnostic test orders, procedure orders and consult orders; where the start date of the order is 45 days before the date of the Encounter or 45 days after the date of the Encounter. The data comes from all [facility]. Test Date/Time Test Type Test Details Facility Name December 31, 2021 09:10 AM Consult Order [facility] Architecture Professor's Choice Social History: Smoking Status (Most current) and Tobacco Use (All prior to encounter date) This section includes the most current, and the historical, smoking and tobacco-related health factors from the [place] facility where the Encounter took place.Current Smoking Status This section includes the most current smoking, or tobacco-related health factor, from the [place] facility where the Encounter took place. Date/Time Current Smoking Status Comment Facility Feb 04, 2021 11:00 AM VA-TOBACCO NEVER USED VA C NTRL WSTRN [facility] Tobacco Use History This section includes a history of the smoking, or tobacco- related health factors, that were collected on or before the date of the Encounter. The data comes from the [place] facility where the Encounter took place. 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, cigarettes [facility] Dec 06, 2015 09:59 QUIT TOBACCO USE IN PAST [place] C NTRL WSTRN AM [facility] Dec 05, 2014 02:31 TOBACCO INPATIENT NO USE VA C NTRL WSTRN PM 30 [facility] Dec 05, 2014 01:37 LIFETIME NON-TOBACCO VA CNTRL WSTRN PM USER [facility] Nov 03, 2014 01:14 TOBACCO INPATIENT NO USE VA C NTRL W[place]N PM 30 DAYS [place] [facility] Nov 02, 2014 10:36 TOBACCO INPATIENT NO USE VA C NTRL WSTRN AM 30 DAYS [place] [facility] Oct 06, 2003 03:47 QUIT TOBACCO USE > 7 VA CNTRL WSTRN AM YEARS AGO [facility] Advance Directives: All historical and current Section Date Range: From patient's date of to the date document was created. This section includes ALL of a patient's completed or amended [place] Advance and Rescinded Directives. The entries below indicate that a directive exists for the patient, but an actual copy is not included with this document. The data comes from all [place] facilities. Date Advance Directives Provider Source Sep 06, 2007 ADVANCE DIRECTIVE ROBERTO FONTENOT [place] CNTRL WSTR N [facility] Encounter Notes: All associated encounter notes This section contains the clinical notes associated to the Encounter. Date/Time Encounter Note(s) Provider Source December 22, 2021 11:23 ADMINISTRATIVE NOTE: ASHLEY BLISS NC CNT RL WSTRN AM [facility] TITLE: ADMINISTRATIVE NOTE [facility] STANDARD TITLE: ADMINISTRATIVE NOTE DATE OF NOTE: DECEMBER 22, 2021@11:23 ENTRY DATE: DECEMBER 22, 2021@11:23:28 AUTHOR: ASHLEY BLISS EXP COSIGNER: URGENCY: STATUS: COMPLETED ADMINISTRATIVE NOTE Has ADDENDA Received fax [facility] [place] [facility] follow up with Dr. Barnes on 01/01/22 f or non-healing amp site. If agreeable please submit new vascular consult. [facility] Vascular Surgery [address], [address] [place] /tan/ ASHLEY BLISS ADVANCED SPECIALIST MANAGERS Signed: 12/22/2021 11:25 Receipt Acknowledged By: * AWAITING SIGNATURE * BETHANIE ANTOINE 12/24/2021 08:41 /tan/ AMAURY FALLON LPN 12/22/2021 18:09 /tan/ JUAN BREEN MD [facility] FLOAT PRIMARY CARE PHYSICIAN for BALTAZAR SWANSON 12/22/2021 ADDENDUM STATUS: COMPLETED Will defer to PCP /tan/ JUAN BREEN MD MPH FLOAT PRIMARY CARE PHYSICIAN Signed: 12/26/2021 04:19 Receipt Acknowledged By: * AWAITING SIGNATURE * BALTAZAR SWANSON 12/31/2021 ADDENDUM STATUS: COMPLETED Received a call from [facility] vascular re garding authorization for Veterans appt tomorrow. Please contact office if consult will not be placed. Thank you /tan/ ASHLEY BLISS ADVANCED SPECIALIST MANAGERS Signed: 12/31/2021 09:01 Receipt Acknowledged By: * AWAITING SIGNATURE * BETHANIE ANTOINE * AWAITING SIGNATURE * AMAURY FALLON * AWAITING SIGNATURE * BALTAZAR SWANSON
--- OUTSIDE RECORDS SUMMARY | 2022-09-09 17:21 | XMS_ITS ---
:1960 Author Organization [facility] rs Address [address] [place] [id number] Support Name Relationship Address Phone MR MRS NERI KENNEDY Unavailable [address] [place] [address] MR MRS NERI KENNEDY Unavailable [address] [place] [address] Insurance Providers: All historical and current Section [...] Number Crowell COMMONWEAL MEDICARE MCR Oct 21, [id number] [phone] RONNY MARYTREVOR PATIENT CARE ADVANTAGE (WNR) [id number] [facility] (WNR) MEDICAID MEDICAID [facility] Aug 23, [facility] [id number] [phone] TREVOR TRINH PATIENT [facility] 2014 D [id number] [facility] MEDICARE PART Nov 21, PART A [id number] [phone] TREVOR KENNEDY PATIENT (WNR) (M) A 2002A 00 FFREY MEDICARE MEDICARE PART Nov 21, PART B [id number] [phone] TREVOR KENNEDY PATIENT (WNR) (M) B 2002A 00 FFREY MEDICARE MEDICARE PART Nov 21, PART B [id number] TREVOR KENNEDY PATIENT (WNR) (M) B 2002A 4 FFREY MEDICARE MEDICARE PART Nov 21, PART A [id number] [id number] TREVOR KENNEDY PATIENT (WNR) (M) A 2002 27A 4 [facility] Selected Encounter This section includes the information on record at [place] for the Encounter. Date/Time Encounter Type Encounter Description Reason Provider Source December 25, 2021 01:56 Outpatient Encounter ADMIN PAT ACTIVTIES PM (DEVANTENONCT) IHE Encounter Template Text not used by [place] Plan of Treatment: Future Appointments (+ 6 months) and Future Tests (+/- 45 days) The Plan of Treatment section includes future care activities for the patient from all [place] treatmentfacilities. This section includes future appointments and future orders which are active, pending orscheduled.Future Appointments This section includes appointments that were scheduled to occur 6 months from the date of the Encounter, up to a maximum of 20 appointments. The data comes from all [place] treatment [facility]. Appointment Date/Time Appointment Type Appointment Facili ty Name January 01, 2022 08:00 AM AMBULATORY MEDICINE [place] [facility] January 16, 2022 09:[address] [facility] MEDICINE [place] [facility] Feb 16, 2022 10:00 AM AMBULATORY MEDICINE [place] [facility] Mar 23, 2022 11:30 AM AMBULATORY MEDICINE [place] [facility] Mar 25, 2022 08:[address] [facility] MEDICINE [place] [facility] Apr 09, 2022 09:00 AM [facility] CNTRL [place] [facility] May 18, 2022 08:30 AM [facility] CNTR [place] [facility] Active, Pending, and Scheduled Orders This section includes a listing of several types of active, pending, and scheduled orders, including clinic medications orders, diagnostic test orders, procedure orders and consult orders; where the start date of the order is 45 days before the date of the Encounter or 45 days after the date of the Encounter. The data comes from all [facility]. Test Date/Time Test Type Test Details Facility Name December 31, 2021 09:10 AM Consult Order [facility]ITY [facility]ASC[facility] SURGERY Cons [place] [facility] Restaurant Area Manager's Choice Social History: Smoking Status (Most current) and Tobacco Use (All prior to encounter date) This section includes the most current, and the historical, smoking and tobacco-related health factors from the [place] facility where the Encounter took place.Current Smoking Status This section includes the most current smoking, or tobacco-related health factor, from the [place] facility where the Encounter took place. Date/Time Current Smoking Status Comment Facility Feb 04, 2021 11:00 AM VA-TOBACCO NEVER USED VA C NTRL WSTRN [facility] Tobacco Use History This section includes a history of the smoking, or tobacco- related health factors, that were collected on or before the date of the Encounter. The data comes from the [place] facility where the Encounter took place. Date/Time Smoking Status/Tobacco Comment Facility Use Feb 04, 2021 11:00 VA-TOBACCO USE DECLINED VA CN TRL WSTRN AM [facility] May 08, 2019 11:06 VA-TOBACCO FORMER USER VA CNT RL WSTRN AM [place] [facility] May 08, 2019 11:06 VA-TOBACCO QUIT 15 YRS VA CNT RL WSTRN AM OR MORE [facility] Oct 26, 2018 11:33 VA-TOBACCO NEVER USED VA CNTR L WSTRN AM [place] [facility] Oct 21, 2017 09:29 QUIT TOBACCO USE > 7 VA CNTRL 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, cigarettes [facility] Dec 06, 2015 09:59 QUIT TOBACCO USE IN PAST VA C NTRL WSTRN AM YEAR [place] [facility] Dec 05, 2014 02:31 TOBACCO INPATIENT NO USE VA C NTRL WSTRN PM 30 DAYS [place] [facility] Dec 05, 2014 01:37 LIFETIME NON-TOBACCO VA CNTRL WSTRN PM [facility] Nov 03, 2014 01:14 TOBACCO INPATIENT NO USE VA C NTRL WSTRN PM 30 DAYS [place] [facility] Nov 02, 2014 10:36 TOBACCO INPATIENT NO USE VA C NTRL WSTRN AM 30 DAYS [place] [facility] Oct 06, 2003 03:47 QUIT TOBACCO USE > 7 VA CNTRL WSTRN AM YEARS AGO [facility] Advance Directives: All historical and current Section Date Range: From patient's date of to the date document was created. This section includes ALL of a patient's completed or amended [place] Advance and Rescinded Directives. The entries below indicate that a directive exists for the patient, but an actual copy is not included with this document. The data comes from all [place] facilities. Date Advance Directives Provider Source Sep 06, 2007 ADVANCE DIRECTIVE ROBERTO FONTENOT [facility] WSTR N [facility] Encounter Notes: All associated encounter notes This section contains the clinical notes associated to the Encounter. Date/Time Encounter Note(s) Provider Source December 25, 2021 01:56 TELEPHONE ENCOUNTER NOTE: VANDANA URBAN CNTR WSTRN PM LOCAL TITLE: VISN 1 CCC ACTION REQUIRED [facility] STANDARD TITLE: TELEPHONE ENCOUNTER NOTE DATE OF NOTE: DECEMBER 25, 2021@13:56:23 ENTRY DATE: DECEMBER 25, 2021@13:58:06 AUTHOR: VANDANA URBAN EXP COSIGNER: URGENCY: STATUS: COMPLETED VISN 1 CCC ACTION REQUIRED Has ADDENDA The patient, OTILIA KENNEDY ([phone] ) called the call center. Contact Type of call: ADMINISTRATIVE. Caller Response: ADM CALL RESOLVED Caller Area: [facility] Provider Info: [facility] ([id number]) PACT: NO PACT 3 (Focus: Primary Care Only) Primary Care Provider: BALTAZAR SWANSON Diagnostic Assistant: BETHANIE ANTOINE PHONE:[phone] Clinical Associate: AMAURY FALLON [facility] [id number] Physician President: JUAN PALACIO Clinical POC: Diagnostic Assistant BETHANIE ANTOINE PHONE:[phone] Administrative POC: Physician President JUAN PALACIO Author: VANDANA URBAN Comments: Please call to schedule PACT appt. No ap pts within PID Evaluation/Management Code: HC PRO PHONE CALL 5- 10 MIN ([phone]). Starting at: 12/25/2021 @ 1:56:23 PM Ending at: 12/25/2021 @ 1:57:18 PM Length: 0 minutes. Chief Complaint: Not applicable to call. Class Code: Other specified counseling. Patient's Email Address: [email or web address] /tan/ VANDANA URBAN visn 1 AMSA Signed: 12/25/2021 13:58 Receipt Acknowledged By: 12/26/2021 09:33 /natasha FALLON LPN 12/26/2021 ADDENDUM STATUS: COMPLETED to PACT team amy /natasha FALLON LPN Signed: 12/26/2021 09:32 Receipt Acknowledged By: * AWAITING SIGNATURE * JUAN PALACIO
--- OUTSIDE RECORDS SUMMARY | 2022-09-09 17:22 | XMS_ITS | Encounter Summary ---
:1960 Author Organization Department [facility] rs Address [address] [place] [address] Support Name Relationship Address Phone MR MRS NERI KENNEDY Unavailable [address] [place] [address] MR MRS NERI KENNEDY Unavailable [address] [place] [address] Insurance Providers: All historical and current Section [...] Number Crowell COMMONWEAL MEDICARE MCR Oct 21, [id number] TREVOR LEMUS PATIENT CARE ADVANTAGE (WNR) [id number] [facility] MEDICAID [facility] Aug 23, [facility] [id number] [phone] TREVOR TRINH [facility]IENT [facility] 2014 D [id number] FFRE[address] [facility] MEDICARE PART Nov 21, PART A [id number] [phone] TREVOR KENNEDY PATIENT (WNR) (M) A 2002A 00 FFREY MEDICARE MEDICARE PART Nov 21, PART B [id number] [phone] TREVOR KENNEDY PATIENT (WNR) (M) B 2002A 00 FFREY MEDICARE MEDICARE PART Nov 21, PART A [id number] TREVOR KENNEDY PATIENT (WNR) (M) A 2002A FFREY MEDICARE MEDICARE PART Nov 21, PART B [id number] TREVOR KENNEDY PATIENT (WNR) (M) B 2002 27A 4 FFREY Selected Encounter This section includes the information on record at [place] for the Encounter. Date/Time Encounter Type Encounter Description Reason Provider Source Oct 22, 2021 12:00 Outpatient Encounter [facility] AM CONSULT IHE Encounter Template Text not used by [place] Plan of Treatment: Future Appointments (+ 6 months) and Future Tests (+/- 45 days) The Plan of Treatment section includes future care activities for the patient from all [place] treatmentfacilities. This section includes future appointments and future orders which are active, pending orscheduled.Future Appointments This section includes appointments that were scheduled to occur 6 months from the date of the Encounter, up to a maximum of 20 appointments. The data comes from all [place] treatment facilities. Appointment Date/Time Appointment Type Appointment Facili ty Name January 01, 2022 08:00 AM AMBULATORY [place]ICINE [place] [facility] January 16, 2022 09:15 AM [facility]UL[facility] [place] [facility] Feb 16, 2022 10:00 AM AMBULATORY MEDICINE [place] [facility] Mar 23, 2022 11:30 AM AMBULATORY MEDICINE [place] [facility] Mar 25, 2022 08:00 AM AMBULATORY MEDICINE [place] [facility] Apr 09, 2022 09:00 AM [facility] Social History: Smoking Status (Most current) and Tobacco Use (All prior to encounter date) This section includes the most current, and the historical, smoking and tobacco-related health factors from the [place] facility where the Encounter took place.Current Smoking Status This section includes the most current smoking, or tobacco-related health factor, from the [place] facility where the Encounter took place. Date/Time Current Smoking Status Comment Facility Feb 04, 2021 11:00 AM VA-TOBACCO NEVER USED [facility] NTRL WSN [facility] Tobacco Use History This section includes a history of the smoking, or tobacco- related health factors, that were collected on or before the date of the Encounter. The data comes from the [place] facility where the Encounter took place. 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, cigarettes [facility] Dec 06, 2015 09:59 QUIT TOBACCO USE IN PAST VA C NTRL WSTRN AM [facility] Dec 05, 2014 02:31 TOBACCO INPATIENT NO USE VA C NTRL WSTRN PM 30 [facility] Dec 05, 2014 01:37 LIFETIME NON-TOBACCO VA CNTRL WSTRN PM USER [facility] Nov 03, 2014 01:14 TOBACCO INPATIENT NO USE VA C NTRL WSTRN PM [facility] Nov 02, 2014 10:36 TOBACCO INPATIENT NO USE VA C NTRL WSTRN AM [facility] Oct 06, 2003 03:47 QUIT TOBACCO USE > 7 VA CNTRL WSTRN AM YEARS AGO [facility] Advance Directives: All historical and current Section Date Range: From patient's date of to the date document was created. This section includes ALL of a patient's completed or amended [place] Advance and Rescinded Directives. The entries below indicate that a directive exists for the patient, but an actual copy is not included with this document. The data comes from all [place] facilities. Date Advance Directives Provider Source Sep 06, 2007 ADVANCE DIRECTIVE CORIEROBERTO VA CNTRL WSTR N [facility] Encounter Notes: All associated encounter notes This section contains the clinical notes associated to the Encounter. Date/Time Encounter Note(s) Provider Source Oct 22, 2021 12:00 AM NONVA CONSULT: VA CNTRL W STRN LOCAL TITLE: COMMUNITY CARE-CONSULT RESULT NOTE [facility] STANDARD TITLE: NONVA CONSULT DATE OF NOTE: OCT 22, 2021 ENTRY DATE: DEC 05 022@13:22:34 AUTHOR: JORGE BASURTO EXP COSIGNER: URGENCY: STATUS: COMPLETED VistA Imaging - Scanned Document SCANNED DOCUMENT SIGNATURE NOT REQUIRED Electronically Filed: 12/05/2021 by: JORGE BASURTO
--- OUTSIDE RECORDS SUMMARY | 2022-09-09 17:22 | XMS_ITS | Encounter Summary ---
:1960 Author Organization Department [facility] rs Address [address] [place] [id number] Support Name Relationship Address Phone MR MRS NERI KENNEDY Unavailable [address] [place] [address] MR MRS NERI KENNEDY Unavailable [address] [place] [address] Insurance Providers: All historical and current Section [...] Number Crowell COMMONWEAL MEDICARE MCR Oct 21, [id number] TREVOR LEMUS PATIENT CARE ADVANTAGE (WNR) 2018 [id number] [facility]ICA[facility] Aug 23, [facility] [id number] [phone] [facility] [id number] [facility]Y [facility] PART Nov 21, PART B [id number] [phone] TREVOR KENNEDY PATIENT (WNR) (M) B 2002A 00 FFREY MEDICARE MEDICARE PART Nov 21, PART A [id number] [phone] TREVOR KENNEDY PATIENT (WNR) (M) A 2002A 00 FFREY MEDICARE MEDICARE PART Nov 21, PART B [id number] TREVOR KENNEDY PATIENT (WNR) (M) B 2002A FFREY MEDICARE MEDICARE PART Nov 21, PART A [id number] TREVOR KENNEDY PATIENT (WNR) (M) A 2002A 4 [facility] Selected Encounter This section includes the information on record at [place] for the Encounter. Date/Time Encounter Type Encounter Description Reason Provider Source Dec 12, 2021 08:21 Outpatient Encounter OPTOMETRY AM IHE Encounter Template Text not used by [place] Plan of Treatment: Future Appointments (+ 6 months) and Future Tests (+/- 45 days) The Plan of Treatment section includes future care activities for the patient from all [place] treatmentfacilities. This section includes future appointments and future orders which are active, pending orscheduled.Future Appointments This section includes appointments that were scheduled to occur 6 months from the date of the Encounter, up to a maximum of 20 appointments. The data comes from all [facility]. Appointment Date/Time Appointment Type Appointment Facili ty Name January 01, 2022 08:00 AM AMBULATORY MEDICINE [place] [facility] January 16, 2022 09:15 AM AM[facility]ULATORY [facility]ICINE [place] [facility] Feb 16, 2022 10:00 AM AMBULATORY MEDICINE [place] [facility] Mar 23, 2022 11:30 AM AMBULATORY MEDICINE [place] [facility] Mar 25, 2022 08:00 AM AMBULATORY MEDICINE [place] [facility] Apr 09, 2022 09:00 AM [facility]ULAT[facility] [place] [facility] May 18, 2022 08:30 AM [facility] Active, Pending, and Scheduled Orders This section includes a listing of several types of active, pending, and scheduled orders, including clinic medications orders, diagnostic test orders, procedure orders and consult orders; where the start date of the order is 45 days before the date of the Encounter or 45 days after the date of the Encounter. The data comes from all [place] treatment [facility]. Test Date/Time Test Type Test Details Facility Name December 31, 2021 09:10 AM Consult Order COMMUNITY CARE-[facility]ASCULAR [facility] Hydrological Technical Officer's Choice Social History: Smoking Status (Most current) and Tobacco Use (All prior to encounter date) This section includes the most current, and the historical, smoking and tobacco-related health factors from the [place] facility where the Encounter took place.Current Smoking Status This section includes the most current smoking, or tobacco-related health factor, from the [place] facility where the Encounter took place. Date/Time Current Smoking Status Comment Facility Feb 04, 2021 11:00 AM VA-TOBACCO NEVER USED VA C NTRL WSTRN [facility] Tobacco Use History This section includes a history of the smoking, or tobacco- related health factors, that were collected on or before the date of the Encounter. The data comes from the [place] facility where the Encounter took place. 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, cigarettes [facility] Dec 06, 2015 09:59 QUIT TOBACCO USE IN PAST [place] C N[facility]L [facility] AM [facility] Dec 05, 2014 02:31 TOBACCO INPATIENT NO USE VA C NTRL W[place]N PM 30 DAYS [place] [facility] Dec 05, 2014 01:37 LIFETIME NON-TOBACCO VA CNTRL WSTRN PM [facility]ER [facility] Nov 03, 2014 01:14 TOBACCO INPATIENT NO USE VA C NTRL W[place]N PM 30 DAYS [place] [facility] Nov 02, 2014 10:36 TOBACCO INPATIENT NO USE VA C NTRL W[place]N AM 30 DAYS [place] [facility] Oct 06, 2003 03:47 QUIT TOBACCO USE > 7 VA CNTRL WSTRN AM YEARS AGO [facility] Advance Directives: All historical and current Section Date Range: From patient's date of to the date document was created. This section includes ALL of a patient's completed or amended [place] Advance and Rescinded Directives. The entries below indicate that a directive exists for the patient, but an actual copy is not included with this document. The data comes from all [place] facilities. Date Advance Directives Provider Source Sep 06, 2007 ADVANCE DIRECTIVE ROBERTO FONTENOT [facility] Encounter Notes: All associated encounter notes This section contains the clinical notes associated to the Encounter. Date/Time Encounter Note(s) Provider Source Dec 12, 2021 08:21 AM TELEPHONE ENCOUNTER NOTE: PEREZ RUTHERFORD [facility] W[facility]N LOCAL TITLE: TELEPHONE NOTE/SPECIALTY CLINIC [facility] STANDARD TITLE: TELEPHONE ENCOUNTER NOTE DATE OF NOTE: DEC 12, 2021@08:21 ENTRY DATE: DEC 12, 2021@08:21:36 AUTHOR: PEREZ RUTHERFORD EXP COSIGNER: URGENCY: STATUS: COMPLETED Called and left message on v oicemail. Patients appointment with Optometry/ moura on 02/10/2022 Needs to be rescheduled with a PID of 02/06/2022 Letter mailed /tan/ PEREZ RUTHERFORD ADVANCED TOOL SPECIALIST Signed: 12/12/2021 08:22
--- OUTSIDE RECORDS SUMMARY | 2022-09-09 17:22 | XMS_ITS | Encounter Summary ---
:1960 Author Organization Department [facility] rs Address [address] [place] [address] Support Name Relationship Address Phone MR MRS NERI KENNEDY Unavailable [address] [phone] [place] [address] MR MRS NERI KENNEDY Unavailable [address] [phone] [place] [address] Insurance Providers: All historical and current Section [...] Number Crowell COMMONWEAL MEDICARE MCR Oct 21, [id number] TREVOR LEMUS PATIENT CARE ADVANTAGE (WNR) 2018 [id number] [facility] (WNR) MEDICAID MEDICAID [facility] Aug 23, [facility] [id number] [phone] [facility]OR [facility]INH [facility] D [id number] FFREY [facility] MED[facility] MEDICARE PART Nov 21, PART A [id number] [phone] TREVOR KENNEDY PATIENT (WNR) (M) A 2002A 00 FFRE[facility] MEDICARE MEDICARE PART Nov 21, PART B [id number] [phone] TREVOR KENNEDY PATIENT (WNR) (M) B 2002A [facility] MEDICARE MEDICARE PART Nov 21, PART A [id number] TREVOR KENNEDY PATIENT (WNR) (M) A 2002A [facility] MEDICARE MEDICARE PART Nov 21, PART B [id number] [id number] TREVOR KENNEDY PATIENT (WNR) (M) B 2002 27A 4 FF[facility] Selected Encounter This section includes the information on record at [place] for the Encounter. Date/Time Encounter Type Encounter Description Reason Provider Source Dec 11, 2021 01:11 Outpatient Encounter COMMUNITY CARE PM CONSULT IHE Encounter Template Text not used by [place] Plan of Treatment: Future Appointments (+ 6 months) and Future Tests (+/- 45 days) The Plan of Treatment section includes future care activities for the patient from all [place] treatmentfacilities. This section includes future appointments and future orders which are active, pending orscheduled.Future Appointments This section includes appointments that were scheduled to occur 6 months from the date of the Encounter, up to a maximum of 20 appointments. The data comes from all [facility]. Appointment Date/Time Appointment Type Appointment Facili ty Name January 01, 2022 08:00 AM AM[place]UL[place]ORY MEDICINE [place] [facility] [facility] January 16, 2022 09:15 AM [facility] MEDICINE [place] [facility] Feb 16, 2022 10:00 AM AMBULATORY MEDICINE [place] [facility] Mar 23, 2022 11:30 AM AMBULATORY MEDICINE [place] [facility] Mar 25, 2022 08:00 AM AMBULATORY MEDICINE [place] [facility] Apr 09, 2022 09:00 AM AMBULATORY [facility] CN[facility]L W[facility] [place] [facility] May 18, 2022 08:30 AM [facility] Active, Pending, and Scheduled Orders This section includes a listing of several types of active, pending, and scheduled orders, including clinic medications orders, diagnostic test orders, procedure orders and consult orders; where the start date of the order is 45 days before the date of the Encounter or 45 days after the date of the Encounter. The data comes from all [facility]. Test Date/Time Test Type Test Details Facility Name December 31, 2021 09:10 AM Consult Order COMMUNITY CARE-VASCULAR [facility] Gunstock Repairer's Choice Social History: Smoking Status (Most current) and Tobacco Use (All prior to encounter date) This section includes the most current, and the historical, smoking and tobacco-related health factors from the [place] facility where the Encounter took place.Current Smoking Status This section includes the most current smoking, or tobacco-related health factor, from the [place] facility where the Encounter took place. Date/Time Current Smoking Status Comment Facility Feb 04, 2021 11:00 AM VA-TOBACCO NEVER USED VA C NTRL WSTRN [facility] Tobacco Use History This section includes a history of the smoking, or tobacco- related health factors, that were collected on or before the date of the Encounter. The data comes from the [place] facility where the Encounter took place. 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, cigarettes [facility] Dec 06, 2015 09:59 QUIT TOBACCO USE IN PAST [place] C NTRL [facility] Dec 05, 2014 02:31 TOBACCO INPATIENT NO USE [facility] C NTRL [facility] PM [facility] Dec 05, 2014 01:37 LIFETIME NON-TOBACCO VA CNTRL WSTRN PM USER [facility] Nov 03, 2014 01:14 TOBACCO INPATIENT NO USE VA C NTRL [place] PM 30 DAYS [place] [facility] Nov 02, 2014 10:36 TOBACCO INPATIENT NO USE VA C NTRL WSTRN AM 30 DAYS [place] [facility] Oct 06, 2003 03:47 QUIT TOBACCO USE > 7 VA CNTRL WSTRN AM YEARS AGO [facility] Advance Directives: All historical and current Section Date Range: From patient's date of to the date document was created. This section includes ALL of a patient's completed or amended [place] Advance and Rescinded Directives. The entries below indicate that a directive exists for the patient, but an actual copy is not included with this document. The data comes from all [place] facilities. Date Advance Directives Provider Source Sep 06, 2007 ADVANCE DIRECTIVE ROBERTO FONTENOT [place] CNTRL WSTR N [facility] Encounter Notes: All associated encounter notes This section contains the clinical notes associated to the Encounter. 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 No reason was provided for t his appointment. There is currently no community care-GI consult. Refer to [facility] PCP/PACT to contact or Xenia santos provider below; if approved, please submit a Community Care GI cons ult. If not approved, please notify and provider below. [facility] [address] [place] [address], [address] Floor [place] PH: [phone] FX: [phone] TAX ID [id number] Procedures at [address] /tan/ HI HUSSEIN FIELD OPERATOR Signed: 12/11/2021 13:15 Receipt Acknowledged By: * AWAITING SIGNATURE * BETHANIE ANTOINE * AWAITING SIGNATURE * AMAURY FALLON * AWAITING SIGNATURE * BALTAZAR SWANSON 12/11/2021 ADDENDUM STATUS: COMPLETED reports having probl em with black stools . It seems to be clearing up now but was concerned since it was the first se e. Endorses new medications Truance that is giving him some diarrh ea along with Metamucil and Bisacodyl. This is abnormal for me . Recovering from a UTI as well. receives medications from outside-[place] PCP. Reports last co lonoscopy 6 mos. ago...failed due to poor prep even with additional enemas, ne eds repeat. Trying to get set up to get another colonoscopy. also requesting new respiratory consult if needed for adjustment/assessment of BiPap settings, c/o of extreme fatigue all day. /tan/ BETHANIE ANTOINE, RN REGISTERED NURSE Signed: 12/11/2021 13:34 Receipt Acknowledged By: * AWAITING SIGNATURE * BALTAZAR SWANSON
--- OUTSIDE RECORDS SUMMARY | 2022-09-09 17:22 | XMS_ITS | Encounter Summary ---
:1960 Author Organization Department [facility] rs Address [address] [place] [address] Support Name Relationship Address Phone MR MRS NERI KENNEDY Unavailable [address] [place] [address] MR MRS NERI KENNEDY Unavailable [address] [place] [address] Insurance Providers: All historical and current Section [...] Number Crowell COMMONWEAL MEDICARE MCR Oct 21, [id number] TREVOR LEMUS PATIENT CARE ADVANTAGE (WNR) 2018 [id number] [facility] (WNR) MEDICAID MEDICAID [facility] Aug 23, [facility] [id number] [phone] [facility]OR TRINH [facility] 2014 D [id number] [facility]REY [facility] MEDIC[facility] PART Nov 21, PART A [id number] [phone] TREVOR KENNEDY PATIENT (WNR) (M) A 2002A 00 [facility] MEDICARE MEDICARE PART Nov 21, PART B [id number] [phone] TREVOR KENNEDY PATIENT (WNR) (M) B 2002A [facility] MEDICARE MEDICARE PART Nov 21, PART A [id number] TREVOR KENNEDY PATIENT (WNR) (M) A 2002A [facility] MEDICARE MEDICARE PART Nov 21, PART B [id number] TREVOR KENNEDY PATIENT (WNR) (M) B 2002 27A 4 [facility] Selected Encounter This section includes the information on record at [place] for the Encounter. Date/Time Encounter Type Encounter Description Reason Provider Source Dec 19, 2021 10:13 Outpatient Encounter TELEPHONE CASE AM MANAGEMENT IHE Encounter Template Text not used by [place] Plan of Treatment: Future Appointments (+ 6 months) and Future Tests (+/- 45 days) The Plan of Treatment section includes future care activities for the patient from all [place] treatmentfacilities. This section includes future appointments and future orders which are active, pending orscheduled.Future Appointments This section includes appointments that were scheduled to occur 6 months from the date of the Encounter, up to a maximum of 20 appointments. The data comes from all [facility]. Appointment Date/Time Appointment Type Appointment Facili ty Name January 01, 2022 08:00 AM AMBULATORY MEDICINE [place] [facility] January 16, 2022 09:15 AM AMBULATORY MEDICINE [place] CNTR [place] [facility] Feb 16, 2022 10:00 AM AMBULATORY MEDICINE [place] [facility] Mar 23, 2022 11:30 AM AMBULATORY MEDICINE [place] [facility] Mar 25, 2022 08:00 AM AMBULATORY MEDICINE [place] [facility] Apr 09, 2022 09:00 AM AMBULATORY MEDICINE [place] [facility] May 18, 2022 08:30 AM [facility] Active, Pending, and Scheduled Orders This section includes a listing of several types of active, pending, and scheduled orders, including clinic medications orders, diagnostic test orders, procedure orders and consult orders; where the start date of the order is 45 days before the date of the Encounter or 45 days after the date of the Encounter. The data comes from all [facility]. Test Date/Time Test Type Test Details Facility Name December 31, 2021 09:10 AM Consult Order COMMUNITY CARE-VASCULAR [facility] Etcher Aircraft's Choice Social History: Smoking Status (Most current) and Tobacco Use (All prior to encounter date) This section includes the most current, and the historical, smoking and tobacco-related health factors from the [place] facility where the Encounter took place.Current Smoking Status This section includes the most current smoking, or tobacco-related health factor, from the [place] facility where the Encounter took place. Date/Time Current Smoking Status Comment Facility Feb 04, 2021 11:00 AM VA-TOBACCO NEVER USED VA C NTRL WSTRN [facility] Tobacco Use History This section includes a history of the smoking, or tobacco- related health factors, that were collected on or before the date of the Encounter. The data comes from the [place] facility where the Encounter took place. 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, cigarettes [facility] Dec 06, 2015 09:59 QUIT TOBACCO USE IN PAST [place] C NTRL WSTRN [facility] Dec 05, 2014 02:31 TOBACCO INPATIENT NO USE [place] C NTRL WSTR[facility] PM 30 [facility] Dec 05, 2014 01:37 LIFETIME NON-TOBACCO VA CNTRL WSTRN PM USER [facility] Nov 03, 2014 01:14 TOBACCO INPATIENT NO USE VA C NTRL WSTRN PM 30 DAYS [place] [facility] Nov 02, 2014 10:36 TOBACCO INPATIENT NO USE VA C NTRL WSTRN AM 30 DAYS [place] [facility] Oct 06, 2003 03:47 QUIT TOBACCO USE > 7 [place] CNTRL WSTRN AM YEARS AGO [facility] Advance Directives: All historical and current Section Date Range: From patient's date of to the date document was created. This section includes ALL of a patient's completed or amended [place] Advance and Rescinded Directives. The entries below indicate that a directive exists for the patient, but an actual copy is not included with this document. The data comes from all [place] facilities. Date Advance Directives Provider Source Sep 06, 2007 ADVANCE DIRECTIVE ROBERTO FONTENOT [facility] WSTR N [facility] Encounter Notes: All associated encounter notes This section contains the clinical notes associated to the Encounter. Date/Time Encounter Note(s) Provider Source Dec 19, 2021 10:13 AM TRANSFER SUMMARIZATION NOTE: JORGE L GEORGE [facility] WSTRN LOCAL TITLE: FOOD SERVICE CASHIER/OCC/HOSPITAL NOTIFICATION NOTE [facility] STANDARD TITLE: TRANSFER SUMMARIZATION NOTE DATE OF NOTE: DEC 19, 2021@10:13 ENTRY DATE: DEC 19, 2021@10:14:01 AUTHOR: JORGE L GEORGE EXP COSIGNER: URGENCY: STATUS: COMPLETED FOOD SERVICE CASHIER/OCC/HOSPITAL NOTIFICAT ION NOTE Has ADDENDA TC Office is aware of this visit and will contin ue to follow the . /natasha GEORGE RN Registered Nurse Signed: 12/19/2021 10:14 12/22/2021 ADDENDUM STATUS: COMPLETED Per [facility] at [facility], wa s [place] home with services on 12/18/21, no further information is available. /natasha GEORGE RN Registered Nurse Signed: 12/22/2021 16:05
--- OUTSIDE RECORDS SUMMARY | 2022-09-09 17:23 | XMS_ITS | Encounter Summary ---
:1960 Author Organization Department [facility] rs Address [address] [place] [address] Support Name Relationship Address Phone MR MRS NERI KENNEDY Unavailable [address] [phone] [place] [address] MR MRS NERI KENNEDY Unavailable [address] [place] [address] Insurance Providers: All historical and current Section [...] Number Crowell COMMONWEAL MEDICARE MCR Oct 21, [id number] TREVOR LEMUS PATIENT CARE ADVANTAGE (WNR) [id number] [facility]ICA[facility] MEDICAID [facility] Aug 23, [facility] [id number] [phone] TRE[facility]OR TRINH [facility]IENT [facility] 2014 D [id number] FFREY [facility] MEDICARE PART Nov 21, PART A [id number] [phone] TREVOR KENNEDY PATIENT (WNR) (M) A 2002A 00 FFREY MEDICARE MEDICARE PART Nov 21, PART B [id number] [phone] TREVOR KENNEDY PATIENT (WNR) (M) B 2002A 00 FFREY MEDICARE MEDICARE PART Nov 21, PART A [id number] TREVOR KENNEDY PATIENT (WNR) (M) A 2002A FFREY MEDICARE MEDICARE PART Nov 21, PART B [id number] TREVOR KENNEDY PATIENT (WNR) (M) B 2002 27A 4 FFREY Selected Encounter This section includes the information on record at [place] for the Encounter. Date/Time Encounter Type Encounter Description Reason Provider Source Sep 29, 2021 03:41 Outpatient Encounter COMMUNITY CARE PM CONSULT IHE Encounter Template Text not used by [place] Plan of Treatment: Future Appointments (+ 6 months) and Future Tests (+/- 45 days) The Plan of Treatment section includes future care activities for the patient from all [place] treatmentfacilities. This section includes future appointments and future orders which are active, pending orscheduled.Future Appointments This section includes appointments that were scheduled to occur 6 months from the date of the Encounter, up to a maximum of 20 appointments. The data comes from all [place] treatment facilities. Appointment Date/Time Appointment Type Appointment Facili ty Name January 01, 2022 08:00 [facility] January 16, 2022 09:15 [facility] Feb 16, 2022 10:00 AM [facility] Mar 23, 2022 11:30 AM [facility] Mar 25, 2022 08:00 AM [facility] Social History: Smoking Status (Most current) and Tobacco Use (All prior to encounter date) This section includes the most current, and the historical, smoking and tobacco-related health factors from the [place] facility where the Encounter took place.Current Smoking Status This section includes the most current smoking, or tobacco-related health factor, from the [place] facility where the Encounter took place. Date/Time Current Smoking Status Comment Facility Feb 04, 2021 11:00 AM VA-TOBACCO USE DECLINED TO [facility] [place] [facility] Tobacco Use History This section includes a history of the smoking, or tobacco- related health factors, that were collected on or before the date of the Encounter. The data comes from the [place] facility where the Encounter took place. Date/Time Smoking Status/Tobacco Comment Facility Use Feb 04, 2021 11:00 VA-TOBACCO [facility]ED [facility] [place] [facility] May 08, 2019 11:06 VA-TOBACCO FORMER USER [place] [facility] May 08, 2019 11:06 VA-TOBACCO QUIT 15 YRS VA CNT RL [facility]N [facility] Oct 26, 2018 11:33 VA-TOBACCO NEVER USED [facility] CN[facility] L [place] [facility] Oct 21, 2017 09:29 QUIT TOBACCO USE > 7 VA CNTRL 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, cigarettes [facility] Dec 06, 2015 09:59 QUIT TOBACCO USE IN PAST VA C NTRL WSTRN AM YEAR [facility] Dec 05, 2014 02:31 TOBACCO INPATIENT NO USE VA C NTRL WSTRN PM [facility] Dec 05, 2014 01:37 LIFETIME NON-TOBACCO VA CNTRL WSTRN PM [facility]ER [facility] Nov 03, 2014 01:14 TOBACCO INPATIENT NO USE VA C NTRL WSTRN PM [facility] Nov 02, 2014 10:36 TOBACCO INPATIENT NO USE VA C NTRL WSTRN AM [facility] Oct 06, 2003 03:47 QUIT TOBACCO USE > 7 VA CNTRL WSTRN AM YEARS AGO [facility] Advance Directives: All historical and current Section Date Range: From patient's date of to the date document was created. This section includes ALL of a patient's completed or amended [place] Advance and Rescinded Directives. The entries below indicate that a directive exists for the patient, but an actual copy is not included with this document. The data comes from all [place] facilities. Date Advance Directives Provider Source Sep 06, 2007 ADVANCE DIRECTIVE ROBERTO FONTENOT [place] CNTRL WSTR N [facility] Encounter Notes: All associated encounter notes This section contains the clinical notes associated to the Encounter. Date/Time Encounter Note(s) Provider Source Sep 29, 2021 03:41 PM NONVA NOTE: ANKIT HOYT LOCAL TITLE: COMMUNITY CARE COORDINATION PLAN STANDARD TITLE: NONVA NOTE DATE OF NOTE: SEP 29, 2021@15:41 ENTRY DATE: SEP 29, 2021@15:41:23 AUTHOR: ANKIT HOYT EXP COSIGNER: URGENCY: STATUS: COMPLETED [place] self-presented to community emergency fa cility Emergency Notification Intake Date Presenting to the Facility: [facility] Name: Hospital: [facility] [place] Address: City: [place] State: Zip Code: Phone : Chief complaint: WEAKNESS Primary Diagnosis: Patient Admitted? No Community Facility Point of Contact: Name: Kaur Phone: info from sharepoint /tan/ ANKIT TOURE Signed: 09/29/2021 15:43 Receipt Acknowledged By: * AWAITING SIGNATURE * SHASHANK MCDONALD 09/29/2021 15:47 /es/ Анна Lobato RN-BS Machine Stuffer Automatic 09/29/2021 15:48 /tan/ Анна Reynolds RN RN * AWAITING SIGNATURE * BALTAZAR SWANSON
--- OUTSIDE RECORDS SUMMARY | 2022-09-09 17:24 | XMS_ITS ---
:1960 Author Organization Department [facility] rs Address [address] [place] [address] Support Name Relationship Address Phone MR MRS NERI KENNEDY Unavailable [address] [phone] [place] [address] MR MRS NERI KENNEDY Unavailable [address] [place] [address] Insurance Providers: All historical and current Section [...] Number Crowell COMMONWEAL MEDICARE MCR Oct 21, [id number] TREVOR LEMUS PATIENT CARE ADVANTAGE (WNR) 2018 [id number] [facility] (WNR) MEDICAID MEDICAID [facility] Aug 23, [facility] [id number] [phone] [facility]OR TRINH [facility] D [id number] [facility] MEDICARE PART Nov 21, PART A [id number] [phone] TREVOR KENNEDY PATIENT (WNR) (M) A 2002A 00 FFREY MEDICARE MEDICARE PART Nov 21, PART B [id number] [phone] TREVOR KENNEDY PATIENT (WNR) (M) B 2002A FFREY MEDICARE MEDICARE PART Nov 21, PART A [id number] TRVEOR KENNEDY PATIENT (WNR) (M) A 2002A FFREY MEDICARE MEDICARE PART Nov 21, PART B [id number] TREVOR KENNEDY PATIENT (WNR) (M) B 2002 27A 4 FFREY Selected Encounter This section includes the information on record at [place] for the Encounter. Date/Time Encounter Type Encounter Description Reason Provider Source Nov 21, 2021 12:00 Outpatient Encounter COMM[facility]ITY [facility] AM CONSULT IHE Encounter Template Text not used by [place] Plan of Treatment: Future Appointments (+ 6 months) and Future Tests (+/- 45 days) The Plan of Treatment section includes future care activities for the patient from all [place] treatmentfacilities. This section includes future appointments and future orders which are active, pending orscheduled.Future Appointments This section includes appointments that were scheduled to occur 6 months from the date of the Encounter, up to a maximum of 20 appointments. The data comes from all [facility]. Appointment Date/Time Appointment Type Appointment Facili ty Name January 01, 2022 08:00 AM AM[facility]ULATORY [facility]IC[facility] [place] [facility] January 16, 2022 09:15 AM [facility]TR [place] [facility] Feb 16, 2022 10:00 AM [facility] MEDICINE [place] [facility] Mar 23, 2022 11:30 AM [facility] MEDICINE [place] [facility] Mar 25, 2022 08:00 AM [facility] CNTRL [place] [facility] Apr 09, 2022 09:00 AM AMBULATORY [facility] [place] [facility] May 18, 2022 08:30 AM [facility] Active, Pending, and Scheduled Orders This section includes a listing of several types of active, pending, and scheduled orders, including clinic medications orders, diagnostic test orders, procedure orders and consult orders; where the start date of the order is 45 days before the date of the Encounter or 45 days after the date of the Encounter. The data comes from all [facility]. Test Date/Time Test Type Test Details Facility Name December 31, 2021 09:10 AM Consult Order [facility] Complex Manager's Choice Social History: Smoking Status (Most current) and Tobacco Use (All prior to encounter date) This section includes the most current, and the historical, smoking and tobacco-related health factors from the [place] facility where the Encounter took place.Current Smoking Status This section includes the most current smoking, or tobacco-related health factor, from the [place] facility where the Encounter took place. Date/Time Current Smoking Status Comment Facility Feb 04, 2021 11:00 AM VA-TOBACCO NEVER USED VA C NTRL WSTRN [facility] Tobacco Use History This section includes a history of the smoking, or tobacco- related health factors, that were collected on or before the date of the Encounter. The data comes from the [place] facility where the Encounter took place. 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, cigarettes [facility] Dec 06, 2015 09:59 QUIT TOBACCO USE IN PAST DE C NTRL WSTRN [facility] Dec 05, 2014 02:31 TOBACCO INPATIENT NO USE VA C NTRL WSTRN PM 30 [facility] Dec 05, 2014 01:37 LIFETIME NON-TOBACCO VA CNTRL WSTRN PM USER [facility] Nov 03, 2014 01:14 TOBACCO INPATIENT NO USE VA C NTRL WSTRN PM 30 DAYS [place] [facility] Nov 02, 2014 10:36 TOBACCO INPATIENT NO USE VA C NTRL WSTRN AM 30 DAYS [place] [facility] Oct 06, 2003 03:47 QUIT TOBACCO USE > 7 VA CNTRL WSTRN AM YEARS AGO [facility] Advance Directives: All historical and current Section Date Range: From patient's date of to the date document was created. This section includes ALL of a patient's completed or amended [place] Advance and Rescinded Directives. The entries below indicate that a directive exists for the patient, but an actual copy is not included with this document. The data comes from all [place] facilities. Date Advance Directives Provider Source Sep 06, 2007 ADVANCE DIRECTIVE ROBERTO FONTENOT [place] CNTRL WSTR N [facility] Encounter Notes: All associated encounter notes This section contains the clinical notes associated to the Encounter. Date/Time Encounter Note(s) Provider Source Nov 21, 2021 12:00 AM NONVA CONSULT: [place] CNTRL W STRN LOCAL TITLE: COMMUNITY CARE-CONSULT RESULT NOTE [facility] STANDARD TITLE: NONVA CONSULT DATE OF NOTE: NOV 21, 2021 ENTRY DATE: JAN 21 022@12:50:07 AUTHOR: JIMENA FONTANEZ COSIGNER: URGENCY: STATUS: COMPLETED VistA Imaging - Scanned Document SCANNED DOCUMENT SIGNATURE NOT REQUIRED Electronically Filed: 01/21/2022 by: MILKA FONTANEZ Housekeeping Department Worker
--- OUTSIDE RECORDS SUMMARY | 2022-09-09 17:24 | XMS_ITS | Encounter Summary ---
:1960 Author Organization Department [facility] rs Address [address] [place] [address] Support Name Relationship Address Phone MR MRS NERI KENNEDY Unavailable [address] [phone] [place] [address] MR MRS NERI KENNEDY Unavailable [address] [place] [address] Insurance Providers: All historical and current Section [...] Number Crowell COMMONWEAL MEDICARE MCR Oct 21, [id number] RONNY TREVOR HERNANDEZ PATIENT CARE ADVANTAGE (WNR) 2018 [id number] [facility] (WNR) MEDICAID MEDICAID [facility] Aug 23, [facility] [id number] [phone] [facility] [id number] [facility] MEDICARE PART Nov 21, PART A [id number] [phone] TREVOR KENNEDY PATIENT (WNR) (M) A 2002A 00 FFREY MEDICARE MEDICARE PART Nov 21, PART B [id number] [phone] TREVOR KENNEDY PATIENT (WNR) (M) B 2002A 00 [facility] PART Nov 21, PART A [id number] TREVOR KENNEDY PATIENT (WNR) (M) A 2002A FFREY MEDICARE MEDICARE PART Nov 21, PART B [id number] TREVOR KENNEDY PATIENT (WNR) (M) B 2002 27A 4 [facility] Selected Encounter This section includes the information on record at [place] for the Encounter. Date/Time Encounter Type Encounter Description Reason Provider Source Sep 26, 2021 11:24 Outpatient Encounter TELEPHONE/GERIATRICS AM IHE Encounter Template Text not used by [place] Plan of Treatment: Future Appointments (+ 6 months) and Future Tests (+/- 45 days) The Plan of Treatment section includes future care activities for the patient from all [place] treatmentfacilities. This section includes future appointments and future orders which are active, pending orscheduled.Future Appointments This section includes appointments that were scheduled to occur 6 months from the date of the Encounter, up to a maximum of 20 appointments. The data comes from all [place] treatment facilities. Appointment Date/Time Appointment Type Appointment Facili ty Name January 01, 2022 08:00 AM AMBULATORY MEDICINE [place]TRL [place] [facility] January 16, 2022 09:15 AM AMBULATORY MEDICINE [place] [facility] Feb 16, 2022 10:00 AM AMBULATORY MEDICINE [place] [facility] Mar 23, 2022 11:30 AM AMBULATORY MEDICINE [place]L [place] [facility] Mar 25, 2022 08:00 AM AMBULATORY [facility] Social History: Smoking Status (Most current) and Tobacco Use (All prior to encounter date) This section includes the most current, and the historical, smoking and tobacco-related health factors from the [place] facility where the Encounter took place.Current Smoking Status This section includes the most current smoking, or tobacco-related health factor, from the [place] facility where the Encounter took place. Date/Time Current Smoking Status Comment Facility Feb 04, 2021 11:00 AM VA-TOBACCO NEVER USED [place] C NTRL WSN [facility] Tobacco Use History This section includes a history of the smoking, or tobacco- related health factors, that were collected on or before the date of the Encounter. The data comes from the [place] facility where the Encounter took place. Date/Time Smoking Status/Tobacco Comment Facility Use Feb 04, 2021 11:00 VA-TOBACCO USE DECLINED [facility] TRL WSTRN AM TO [place]SWER [place] [facility] May 08, 2019 11:06 VA-TOBACCO FORMER USER VA CNT RL 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 Dec 05, 2014 02:31 TOBACCO INPATIENT NO USE VA C NTRL WSTRN PM 30 DAYS [facility] Dec 05, 2014 01:37 LIFETIME NON-TOBACCO VA CNTRL WSTRN PM USER [facility] Nov 03, 2014 01:14 TOBACCO INPATIENT NO USE VA C NTRL WSTRN PM 30 DAYS [facility] Nov 02, 2014 10:36 TOBACCO INPATIENT NO USE VA C NTRL WSTRN AM 30 DAYS [facility] Oct 06, 2003 03:47 QUIT TOBACCO USE > 7 VA CNTRL WSTRN AM YEARS AGO [facility] Advance Directives: All historical and current Section Date Range: From patient's date of to the date document was created. This section includes ALL of a patient's completed or amended [place] Advance and Rescinded Directives. The entries below indicate that a directive exists for the patient, but an actual copy is not included with this document. The data comes from all [place] facilities. Date Advance Directives Provider Source Sep 06, 2007 ADVANCE DIRECTIVE ROBERTO FONTENOT [place] CNTRL WSTR N [facility] Encounter Notes: All associated encounter notes This section contains the clinical notes associated to the Encounter. Date/Time Encounter Note(s) Provider Source Sep 26, 2021 11:24 [facility] NOTE: BRICE MELENDEZ CNTRL WSTRN AM LOCAL TITLE: NURSING/COMMUNITY HOME HEALTH NOTE [facility] STANDARD TITLE: [facility] NOTE DATE OF NOTE: SEP 26, 2021@11:24 ENTRY DATE: SEP 26, 2021@11:24:46 AUTHOR: BRICE MELENDEZ EXP COSIGNER: URGENCY: STATUS: COMPLETED Previous Vitals: Temperature: 97.7 F [36.5 C] (02/04/2021 11:13) Pulse: 91 (02/04/2021 11:13) Respiration: 16 (02/04/2021 11:13) Blood Pressure: 107/63 (02/04/2021 11:13) Height: 72 in [182.9 cm] (11/04/2018 09:32) Weight: 296 lb [134.5 kg] (11/03/2019 08:33) Allergies: Patient has answered NKA Active Medications: Active Outpatient Medication s (including Supplies): Active Outpatient Medications Status 1) CARBOXYMETHYLCELLULOSE 0.5% OPH SOLN INSTILL 1 DROP ACTIVE INTO EACH EYE FOUR TIMES DAILY NEEDED Active Non-VA Medications Status 1) Non-VA ALBUTEROL/IPRATROPIUM (RESPIMAT) INHL, ORAL 2 ACTIVE PUFFS BY MOUTH EVERY 6 HOURS NEEDED 2) Non-VA ASPIRIN 81MG EC TAB 81MG BY MOUTH GELY Y ACTIVE 3) Non-VA ATORVASTATIN CALCIUM 80MG TAB 40MG BY MOUTH ACTIVE ONCE DAILY 4) Non-VA BUPROPION HCL 150MG 12HR SA TAB 150MG BY MOUTH ACTIVE TWICE DAILY 5) Non-VA CHOLECALCIF 25MCG (D3-1,000UNIT) TAB 2 5MCG BY ACTIVE MOUTH ONCE DAILY 6) Non-VA CLOPIDOGREL BISULFATE 75MG TAB 75MG BY MOUTH ACTIVE ONCE DAILY 7) Non-VA ESCITALOPRAM OXALATE 20MG TAB 20MG BY MOUTH ACTIVE ONCE DAILY 8) Non-VA GABAPENTIN 300MG CAP 600MG BY MOUTH ON CE DAILY ACTIVE 9) Non-VA INSULIN,DEGLUDEC(TRESIBA 200 UNIT)*PA- F* INJ ACTIVE 80 UNITS SUBCUTANEOUSLY TWICE DAILY 10) Non-VA LAMOTRIGINE 100MG TAB 100MG BY MOUTH ONCE ACTIVE DAILY 11) Non-VA LIRAGLUTIDE (VICTOZA) 6MG/ML INJ PEN 3ML 1.8MG ACTIVE SUBCUTANEOUSLY ONCE DAILY 12) Non-VA LISINOPRIL 5MG TAB 5MG BY MOUTH ONCE DAILY ACTIVE 13) Non-VA METFORMIN HCL 1000MG TAB 1000MG BY [facility] TWICE ACTIVE DAILY 14) Non-VA POLYETHYLENE GLYCOL 3350 ORAL PWDR 17 GRAMS (1 ACTIVE CAPFUL) BY MOUTH ONCE DAILY NEEDED 15) Non-VA VARDENAFIL HCL 20MG TAB 20MG BY MOUTH ONCE ACTIVE DAILY NEEDED 16 Total Medications Work From Home received call from A agency reporting that 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 Agency reports that 911 was called and [place] taken to the hospital. Unknown which hospital. Alert to PACT Team and Transfer Coordinators for follow up. /tan/ RAISSA NGUYEN,RN PURCHASED RN ACLS Signed: 09/26/2021 11:28 Receipt Acknowledged By: * AWAITING SIGNATURE * SHASHANK MCDONALD * AWAITING SIGNATURE * SHADY RENO * AWAITING SIGNATURE * ANKIT HOYT * AWAITING SIGNATURE * SHADY SULLIVAN * AWAITING SIGNATURE * BALTAZAR SWANSON
--- OUTSIDE RECORDS SUMMARY | 2022-09-09 17:24 | XMS_ITS | Encounter Summary ---
:1960 Author Organization Department [facility] rs Address [address] [place] [id number] Support Name Relationship Address Phone MR MRS NERI KENNEDY Unavailable [address] [place] [address] MR MRS NERI KENNEDY Unavailable [address] [place] [address] Insurance Providers: All historical and current Section [...] Number [place] MCR Oct 21, [id number] TREVOR LEMUS PATIENT CARE ADVANTAGE (WNR) [phone] [facility]) [facility] MEDICAID [id number] Aug 23, [facility] [id number] [phone] TREVOR TRINH PATIENT [facility] [id number] [facility] PART Nov 21, PART A [id number] [phone] TREVOR KENNEDY PATIENT (WNR) (M) A [id number] [id number] FFREY MEDICARE MEDICARE PART Nov 21, PART B [id number] [phone] TREVOR KENNEDY PATIENT (WNR) (M) B 2002A [facility] MEDICARE MEDICARE PART Nov 21, PART A [id number] [phone] TREVOR KENNEDY PATIENT (WNR) (M) A 2002A FFREY MEDICARE MEDICARE PART Nov 21, PART B [id number] [phone] TREVOR KENNEDY PATIENT (WNR) (M) B [id number] FFREY Selected Encounter This section includes the information on record at OR for the Encounter. Date/Time Encounter Type Encounter Description Reason Provider Source Feb 03, 2022 01:26 Outpatient Encounter OPTOMETRY PM IHE Encounter Template Text not used by OR Plan of Treatment: Future Appointments (+ 6 months) and Future Tests (+/- 45 days) The Plan of Treatment section includes future care activities for the patient from all OR treatmentfacilities. This section includes future appointments and future orders which are active, pending orscheduled.Future Appointments This section includes appointments that were scheduled to occur 6 months from the date of the Encounter, up to a maximum of 20 appointments. The data comes from all OR treatment facilities. Appointment Date/Time Appointment Type Appointment Facili ty Name Feb 16, 2022 10:00 AM AMBULATORY MEDICINE [place] [facility] [place] [facility] Mar 23, 2022 11:30 AM AMBULATORY MEDICINE [place] [facility] [place] [facility] Mar 25, 2022 08:00 AM AMBULATORY MEDICINE [place] [facility] [place] [facility] Apr 09, 2022 09:00 AM AMBULATORY MEDICINE [place] [facility] [place] [facility] May 18, 2022 08:30 AM AMBULATORY MEDICINE [facility] [place] [facility] Active, Pending, and Scheduled Orders This section includes a listing of several types of active, pending, and scheduled orders, including clinic medications orders, diagnostic test orders, procedure orders and consult orders; where the start date of the order is 45 days before the date of the Encounter or 45 days after the date of the Encounter. The data comes from all [facility]. Test Date/Time Test Type Test Details Facility Name December 31, 2021 09:10 AM Consult Order [facility] WSN SURGERY Cons [place] [facility] [employer] Social History: Smoking Status (Most current) and Tobacco Use (All prior to encounter date) This section includes the most current, and the historical, smoking and tobacco-related health factors from the OR facility where the Encounter took place.Current Smoking Status This section includes the most current smoking, or tobacco-related health factor, from the OR facility where the Encounter took place. Date/Time Current Smoking Status Comment Facility Feb 04, 2021 11:00 AM VA-TOBACCO NEVER USED OR C NTRL [facility] Tobacco Use History This section includes a history of the smoking, or tobacco- related health factors, that were collected on or before the date of the Encounter. The data comes from the OR facility where the Encounter took place. 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, cigarettes [facility] Dec 06, 2015 09:59 QUIT TOBACCO USE IN PAST [facility] Dec 05, 2014 02:31 TOBACCO INPATIENT NO USE [facility] 30 [facility] Dec 05, 2014 01:37 LIFETIME NON-TOBACCO [facility] Nov 03, 2014 01:14 TOBACCO INPATIENT NO USE [facility] Nov 02, 2014 10:36 TOBACCO INPATIENT NO USE [facility] C [facility] Oct 06, 2003 03:47 QUIT TOBACCO USE > 7 VA CNTRL W[facility] AM YEARS AGO [facility] Advance Directives: All historical and current Section Date Range: From patient's date of to the date document was created. This section includes ALL of a patient's completed or amended OR Advance and Rescinded Directives. The entries below indicate that a directive exists for the patient, but an actual copy is not included with this document. The data comes from all OR facilities. Date Advance Directives Provider Source Sep 06, 2007 ADVANCE DIRECTIVE ROBERTO FONTENOT OR [facility] N [facility] Encounter Notes: All associated encounter notes This section contains the clinical notes associated to the Encounter. 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 confirmed l ocation of optometry with /tan/ MAXIMILIAN GORDON Signed: 02/03/2022 13:27
--- OUTSIDE RECORDS SUMMARY | 2022-09-09 17:25 | XMS_ITS | Encounter Summary ---
:1960 Author Organization Department of [facility] rs Address [address] [place] [id number] Support Name Relationship Address Phone MR MRS NERI KENNEDY Unavailable [address] [place] [address] MR MRS NERI KENNEDY Unavailable [address] [place] [address] Insurance Providers: All historical and current Section [...] Number Crowell [employer] MEDICARE MCR Oct 21, [id number] [phone] TREVOR LEMUS PATIENT CARE ADVANTAGE (WNR) [id number] [facility] (WNR) MEDICAID MEDICAID [facility] Aug 23, [facility] [place] [id number] [phone] TREVOR TRINH PATIENT [facility] 2014 D [id number] FFREY [facility] MED[facility] PART Nov 21, PART A [id number] [phone] TREVOR KENNEDY PATIENT (WNR) (M) A 2002A 00 FFREY MEDICARE MEDICARE PART Nov 21, PART B [id number] [phone] TREVOR KENNEDY PATIENT (WNR) (M) B 2002A FFREY MEDICARE MEDICARE PART Nov 21, PART A [id number] TREVOR KENNEDY PATIENT (WNR) (M) A 2002A FFREY MEDICARE MEDICARE PART Nov 21, PART B [id number] [phone] TREVOR KENNEDY PATIENT (WNR) (M) B 2002 27A 4 [facility] Selected Encounter This section includes the information on record at [place] for the Encounter. 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 Date/Time Primary/Secondary Diagnosis Name Provider Source Diagnosis Feb 16, 2022 PRIMARY Encounter for JENNIFER LIAO [place] CNTL WSTR N 10:53 AM orthopedic AN[facility]LICA F [facility] aftercare following surgical amp Feb 16, 2022 SECONDARY Encounter for STELLA FALLON [place] CNT[facility] [place]STR [place] 10:53 AM immunization OPHER E [facility] Feb 16, 2022 SECONDARY Essential NIKAJENNIFER WISE [place] CNTRL WSTRN 10:53 AM (primary) ANG[facility]LICA F [facility] hypertension Feb 16, 2022 SECONDARY Hyperlipidemia, MARYJENNIFER BARKLEY [place] CNTRL WS TRN 10:53 AM unspecified [facility]LICA F [facility] Feb 16, 2022 SECONDARY Personal history MARYJENNIFER BARKLEY [place] CNTRL W STRN 10:53 AM of diabetic foot ANG[facility]LICA F [facility] ulcer Feb 16, 2022 SECONDARY Sleep apnea, MARYJENNIFER BARKLEY [place] CNTRL WSTR[place] 10:53 AM unspecified [facility]LICA F [facility] Plan of Treatment: Future Appointments (+ 6 months) and Future Tests (+/- 45 days) The Plan of Treatment section includes future care activities for the patient from all [place] treatmentfacilities. This section includes future appointments and future orders which are active, pending orscheduled.Future Appointments This section includes appointments that were scheduled to occur 6 months from the date of the Encounter, up to a maximum of 20 appointments. The data comes from all [place] treatment facilities. Appointment Date/Time Appointment Type Appointment Facili ty Name Mar 23, 2022 11:30 AM AMBULATORY - MEDICINE [place] [facility] [place] [facility] Mar 25, 2022 08:00 AM AMBULATORY - MEDICINE [place] [facility] [place] [facility] Apr 09, 2022 09:00 AM [facility] [place] [facility] May 18, 2022 08:30 AM [facility] Active, Pending, and Scheduled Orders This section includes a listing of several types of active, pending, and scheduled orders, including clinic medications orders, diagnostic test orders, procedure orders and consult orders; where the start date of the order is 45 days before the date of the Encounter or 45 days after the date of the Encounter. The data comes from all [place] treatment facilities. Test Date/Time Test Type Test Details Facility Name Mar 23, 2022 12:00 AM Laboratory - Chemistry MICROALBUMIN CREATI NINE Order RATIO PANEL URINE (RANDOM) SP Mar 23, 2022 12:00 AM Laboratory - Chemistry URINALYSIS URINE SP Order Vital Signs: All taken on the encounter date This section contains inpatient and outpatient Vital Signs collected on the date of the Encounter. Date/Time Temperature Pulse Blood Respiratory SP02 Pain Height Weight Josiah dy Source Pressure Rate Mass Index Feb 16, 98.3 F 62 104/64 16 /min 97 % 0 250 lb 34 [place] 2021 09:59 /min mm[Hg] [facility] Immunizations: All administered on the encounter date This section contains immunizations associated to the Encounter. Immunization Series Date Issued Reaction Comments HEP A-HEP B 3 Feb 16, 2022 Social History: Smoking Status (Most current) and Tobacco Use (All prior to encounter date) This section includes the most current, and the historical, smoking and tobacco-related health factors from the [place] facility where the Encounter took place.Current Smoking Status This section includes the most current smoking, or tobacco-related health factor, from the [place] facility where the Encounter took place. Date/Time Current Smoking Status Comment Facility Feb 16, 2022 10:00 AM [facility] Tobacco Use History This section includes a history of the smoking, or tobacco- related health factors, that were collected on or before the date of the Encounter. The data comes from the [place] facility where the Encounter took place. Date/Time Smoking Status/Tobacco Comment Facility Use Feb 16, 2022 10:00 VA-TOBACCO QUIT 15 YRS VA CNT RL WSTRN AM OR MORE [place] [facility] Feb 04, 2021 11:00 VA-TOBACCO NEVER USED VA CNTR L WSTRN AM [place] [facility] Feb 04, 2021 11:00 VA-TOBACCO USE DECLINED VA CN TRL WSTRN AM TO ANSWER [place] [facility] May 08, 2019 11:06 VA-TOBACCO FORMER USER VA CNT RL WSTRN AM [place] [facility] May 08, 2019 11:06 VA-TOBACCO QUIT 15 YRS VA CNT RL WSTRN AM OR MORE [place] [facility] Oct 26, 2018 11:33 VA-TOBACCO NEVER USED VA CNTR L WSTRN AM [place] [facility] Oct 21, 2017 09:29 QUIT TOBACCO USE > 7 VA CNTRL 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, cigarettes [facility] Dec 06, 2015 09:59 QUIT TOBACCO USE IN PAST [place] C NTRL WSTRN AM YEAR [facility] Dec 05, 2014 02:31 TOBACCO INPATIENT NO USE VA C NTRL WSTRN PM 30 DAYS [place] [facility] Dec 05, 2014 01:37 LIFETIME NON-TOBACCO VA CNTRL WSTRN PM USER [facility] Nov 03, 2014 01:14 TOBACCO INPATIENT NO USE VA C NTRL WSTRN PM 30 DAYS [place] [facility] Nov 02, 2014 10:36 TOBACCO INPATIENT NO USE [place] C NTRL WSTRN AM 30 DAYS [place] [facility] Oct 06, 2003 03:47 QUIT TOBACCO USE > 7 VA CNTRL WSTRN AM YEARS AGO [facility] Advance Directives: All historical and current Section Date Range: From patient's date of to the date document was created. This section includes ALL of a patient's completed or amended [place] Advance and Rescinded Directives. The entries below indicate that a directive exists for the patient, but an actual copy is not included with this document. The data comes from all [place] facilities. Date Advance Directives Provider Source Sep 06, 2007 ADVANCE DIRECTIVE ROBERTO FONTENOT [place] CNTRL WSTR N [facility] Encounter Notes: All associated encounter notes This section contains the clinical notes associated to the Encounter. Date/Time Encounter Note(s) Provider Source Feb 16, 2022 10:47 PHYSICIAN CABLE MAINTAINER NOTE: BALTAZAR LIAO CNTRL WSTRN AM [facility] TITLE: GABINO DIAZ F PARISA Guzman [facility] STANDARD TITLE: PHYSICIAN CABLE MAINTAINER NOTE DATE OF NOTE: FEB 16, 2022@10:47 ENTRY DATE: FEB 16, 2022@10:47:21 AUTHOR: BALTAZAR LIAO EXP COSIGNER: URGENCY: STATUS: COMPLETED CC/HPI: 62 year old MALE here in follow-up for; Dm, he reports that his hands are worse and he would like to see a hand specialist. I explain that they are surgeons. He does not think he needs surgery. We discuss meds, he is on gabap entin. He will ask [facility] to consider tweaking doses and for diabetic education as vy granda. Review of systems: Patient reports no changes [facility] nor in meds or any admissions. I had a shot recently but does not know which one. Active problems - Computerized Problem List is t he source for the followin. Acute deep venous thrombosis of thigh 2. H/O: pulmonary embolus 3. 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 4. Unemployment * 5. Morbid obesity 6. Bipolar,Depr,Part Rem 7. Noncompliance with therapeutic regimen 8. Diabetic foot ulcer 9. Sleep apnea (SNOMED CT 94851014) 10. latent TB 11. Lack of Housing 12. 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 Chronic Obstructive Pulmonary Disease 14. Low Back Pain, Lumbago 15. Degeneration of intervertebral disc 16. Other specified drug dependence, in remissio n 17. Personal History of Colonic Polyps negative colo 2005 18. Personality Disorder NOS 19. Diabetes mellitus (SNOMED CT 22713470) 20. Hyperlipidemia (SNOMED CT 79097043) 21. Hypertension (SNOMED CT 13514622) VA and Non VA meds were reconciled with the emelia ent who left with a corrected copy. See medication page for details. Active and Recently Outpatient Medicatio ns (excluding Supplies): Active Outpatient Medications Status 1) CARBOXYMETHYLCELLULOSE [...] Non-VA METFORMIN HCL 1000MG TAB 1000MG BY [facility] TWICE ACTIVE DAILY 14) Non-VA POLYETHYLENE GLYCOL 3350 ORAL PWDR 17 GRAMS (1 ACTIVE CAPFUL) BY MOUTH ONCE DAILY NEEDED 15) Non-VA VARDENAFIL HCL 20MG TAB 20MG BY MOUTH ONCE ACTIVE DAILY NEEDED 16 Total Medications 98.3 F [36.8 C] (02/16/2022 09:59) 62 (02/16/2022 09:59) 16 (02/16/2022 09:59) 104/64 (02/16/2022 09:59) 0 (02/16/2022 09:59) 72 in [182.9 cm] (11/04/2018 09:32) 250 lb [113.40 kg] (02/16/2022 09:59) BMI: 34.0 Neuro: Alert and oriented times three, grossly n onfocal, nasolabial folds intact. BMI>30/>24.99 High Risk: At this visit, the health risks of obesity were reviewed and discussed with the , and the benefits of a weight management treatment program, such as [facility]OVE! was discussed and offere d to the . After discussing the health risks of being over weight or obese and providing information about available weight ma nagement treatment, and offering a referral to [facility] or another wei ht management treatment program outside the [place], the patient D ECLINES REFERRAL to MOVE or any other weight management treatment jeffy alegria at this time. Statin Use CVD/DM: The patient is already on a statin. The patient is on a statin from a source outsid e [facility]. Medication list updated. He got 3 pfizer/covid shots at [facility] all ot her shots at [facility]. Please ask elsie for one year of labs, colonos copy, a list of his shots and last PCP note. Update nonva medlist when note co mes in. /tan/ Baltazar Liao PA-C STAFF PHYSICIAN CABLE MAINTAINER Signed: 02/16/2022 10:53 Receipt Acknowledged By: * AWAITING SIGNATURE * AMAURY FALLON Feb 16, 2022 10:39 PREVENTIVE MEDICINE NURSING NOTE: NANCI FALLON [place] CNTRL WSTRN AM [facility] TITLE: CLINICAL REMINDERS/NURSING R E [place] [facility] STANDARD TITLE: PREVENTIVE MEDICINE NURSING NOTE DATE OF NOTE: FEB 16, 2022@10:39 ENTRY DATE: FEB 16, 2022@10:39:56 AUTHOR: AMAURY FALLON EXP COSIGNER: URGENCY: STATUS: COMPLETED Hepatitis B Immunization: The patient received combination Hepatitis A / Hepatitis B vaccine 1 ml IM in Left deltoid. Cotton Tier: Get[employer]ik Lot# and Expiration Date: [id number] 08/23/22 Administered by protocol/policy Complications: None The VIS for both Hepatitis A and Hepatitis B va ccines dated May for HAV and May for HBV were given to t he patient. COVID-19 Immunization: Pfizer COVID-19 Vaccine given previously Patient received a prior dose of the Pfizer COV ID-19 Vaccine. Date: January 26, 2021 Location: Outside Healthcare Provider Patient received a prior dose of the Pfizer COV ID-19 Vaccine. Date: February 17, 2021 Location: Outside Healthcare Provider Pfizer TS COVID-19 Vaccine given previously (Zafar-sucrose formulation - after July 2021 ) Patient received a prior dose of the Pfizer COV ID-19 Vaccine. Date: September 23, 2021 Series: Series 3 Location: Outside Healthcare Provider /tan/ AMAURY FALLON LPN Signed: 02/16/2022 10:43 Feb 16, 2022 10:02 PREVENTIVE MEDICINE NURSING NOTE: NANCI FALLON [place] CNTRL WSTRN AM LOCAL TITLE: CLINICAL REMINDERS/NURSING R E [place] [facility] STANDARD TITLE: PREVENTIVE MEDICINE NURSING NOTE DATE OF NOTE: FEB 16, 2022@10:02 ENTRY DATE: FEB 16, 2022@10:03:11 AUTHOR: AMAURY FALLON EXP COSIGNER: URGENCY: STATUS: COMPLETED Advance Directive Screen: Patient has an Advance Directive on file at [facility]. No updates are needed at this time. The patient received education about Advance Di rectives and written notification of his/her rights. Suicide Screen: C-SSRS Screening [place] Suicide Severity Rating Scale (C-SSRS) screener 1. Over the past month, have you wished you wer e or wished you could go to sleep and not wake up? No 2. Over the past month, have you had any actual thoughts of killing yourself? No 3. Over the past month, have you been thinking about how you might do this? Response not required due to responses to other questions. 4. Over the past month, have you had these thou ghts and had some intention of acting on them? Response not required due to responses to other questions. 5. Over the past month, have you started to wor k out or worked out the details of how to kill yourself? Response not required due to responses to other questions. 6. If yes, at any time in the past month did yo u intend to carry out this plan? Response not required due to responses to other questions. 7. In your lifetime, have you ever done anythin g, started to do anything, or prepared to do anything to end you r life (for example, collected pills, obtained a gun, gave away valu vishal, went to the roof but didn't jump)? No 8. If YES, was this within the past 3 months? Response not required due to responses to other questions. DM/PVD/ESRD Foot Exam: Patient had a complete visual examination of th e feet at this encounter. Result of Exam: bilateral amoutee Patient's feet were examined for presence of do rsalis pedis and posterior tibial pulses. Results of Exam: Severely Diminished/Absent gage ateral amputee Patient had a monofilament examination of sensa tion in feet at this encounter. Results of Exam: Severely Diminished/Absent gage ateral amputee The patient's foot risk was calculated, and the patient was educated on proper footwear and foot care. Please calculate the patient's Foot Risk Score (FRS) - 1 Required: (RATE the foot with the HIGHEST risk!) 0 = NORMAL RISK Bilateral Leg/Foot Amputee. This Reminder shoul d not apply to this . Depression Screening: Perform PHQ-2 A PHQ-2 screen was performed. The score was 0 w hich is a negative screen for depression. Over the past two weeks, how often have you bee n bothered by the following problems? 1. Little interest or pleasure in doing things Not at all 2. Feeling down, depressed, or hopeless Not at all Relationship Health & Safety Screen: Environment is safe to proceed INFORMED CONSENT TO SCREEN & DOCUMENT: Individual consents to documentation? Yes Individual consents to proceed with screening? Yes PRIMARY SCREEN: In the past 12 months, how often did a current or former intimate partner (e.g., boyfriend, girlfriend, , , se xual partner): Scream or curse at you: Never Insult or talk down to you: Never Threaten you with harm: Never Physically hurt you: Never In the past 12 months, how often did a current or former intimate partner force or pressure you to have sexual co ntact against your will, or when you were unable to say no? Never PRIMARY SCREEN RESULTS: The individual denied all forms of IPV above (i .e., answered never to all 5 items above). ??The HITS tool is US copyright protected by Satish Corral MD, and the user has full rights to use it throughout the [employer] system. DISPOSITION: Provided general IPV education. Tobacco Use Screening: The patient is a former tobacco user. The patient quit fifteen or more years ago. Alcohol Use Screen (AUDIT-C): Alcohol Screen: SCREEN FOR ALCOHOL (AUDIT-C) An alcohol screening test (AUDIT-C) was negativ e (score=0). 1. How often did you have a drink containing al cohol in the past year? Never 2. How many drinks containing alcohol did you h ave on a typical day when you were drinking in the past year? Response not required due to responses to other questions. 3. How often did you have six or more drinks on one occasion in the past year? Response not required due to responses to other questions. /tan/ AMAURY FALLON LPN Signed: 02/16/2022 10:10
--- OUTSIDE RECORDS SUMMARY | 2022-09-09 17:26 | XMS_ITS | Encounter Summary ---
:1960 Author Organization Department [facility] rs Address [address] [place] [id number] Support Name Relationship Address Phone MR MRS NERI KENNEDY Unavailable [address] [place] [address] MR MRS NERI KENNEDY Unavailable [address] [place] [address] Insurance Providers: All historical and current Section [...] Number Crowell [employer] MEDICARE MCR Oct 21, [id number] TREVOR LEMUS PATIENT CARE ADVANTAGE (WNR) [id number] [facility] (WNR) MEDICAID MEDICAID [facility] Aug 23, [facility] [id number] [phone] [facility]INH [facility] [address] D [id number] MEDICARE PART Nov 21, PART A [id number] [phone] TREVOR KENNEDY PATIENT (WNR) (M) A 2002A 00 FFREY MEDICARE MEDICARE PART Nov 21, PART B [id number] [phone] TREVOR KENNEDY PATIENT (WNR) (M) B 2002A FFREY MEDICARE MEDICARE PART Nov 21, PART A [id number] [phone] TREVOR KENNEDY PATIENT (WNR) (M) A 2002A [facility] MEDICARE MEDICARE PART Nov 21, PART B [id number] [id number] TREVOR KENNEDY PATIENT (WNR) (M) B 2002 27A 4 FFREY Selected Encounter This section includes the information on record at [place] for the Encounter. Date/Time Encounter Type Encounter Description Reason Provider Source January 10, 2022 12:00 Outpatient Encounter COMMUNITY CARE AM CONSULT IHE Encounter Template Text not used by [place] Plan of Treatment: Future Appointments (+ 6 months) and Future Tests (+/- 45 days) The Plan of Treatment section includes future care activities for the patient from all [place] treatmentfacilities. This section includes future appointments and future orders which are active, pending orscheduled.Future Appointments This section includes appointments that were scheduled to occur 6 months from the date of the Encounter, up to a maximum of 20 appointments. The [facility] Appointment Date/Time Appointment Type Appointment Facili ty Name January 16, 2022 09:15 AM AMBULATORY MEDICINE [place] CNTR WSTRN M [facility] Feb 16, 2022 10:00 AM [facility] CNTR WSTRN [facility] Mar 23, 2022 11:[address] [facility] MEDICINE [place]L [place] [facility] Mar 25, 2022 08:00 AM [facility] CN[facility]L [facility] [place] [facility] Apr 09, 2022 09:00 AM [facility] May 18, 2022 08:30 AM [facility] Active, Pending, and Scheduled Orders This section includes a listing of several types of active, pending, and scheduled orders, including clinic medications orders, diagnostic test orders, procedure orders and consult orders; where the start date of the order is 45 days before the date of the Encounter or 45 days after the date of the Encounter. The data comes from all [facility]. Test Date/Time Test Type Test Details Facility Name December 31, 2021 09:10 AM Consult Order [facility] Installer [employer] Social History: Smoking Status (Most current) and Tobacco Use (All prior to encounter date) This section includes the most current, and the historical, smoking and tobacco-related health factors from the [place] facility where the Encounter took place.Current Smoking Status This section includes the most current smoking, or tobacco-related health factor, from the [place] facility where the Encounter took place. Date/Time Current Smoking Status Comment Facility Feb 04, 2021 11:00 AM VA-TOBACCO NEVER USED VA C NTRL WSTRN [facility] Tobacco Use History This section includes a history of the smoking, or tobacco- related health factors, that were collected on or before the date of the Encounter. The data comes from the [place] facility where the Encounter took place. Date/Time Smoking Status/Tobacco Comment Facility Use Feb 04, 2021 11:00 VA-TOBACCO USE DECLINED VA CN TRL WSTRN AM TO ANSWER [place] [facility] May 08, 2019 11:06 VA-TOBACCO FORMER USER VA CNT RL WSTRN AM [place] [facility] May 08, 2019 11:06 VA-TOBACCO QUIT 15 YRS VA CNT RL WSTRN AM OR MORE [place] [facility] Oct 26, 2018 11:33 VA-TOBACCO NEVER USED VA CNTR L WSTRN AM [place] [facility] Oct 21, 2017 09:29 QUIT TOBACCO USE > 7 VA CNTRL 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, cigarettes [place] [facility] Dec 06, 2015 09:59 QUIT TOBACCO USE IN PAST [place] C NTRL WSTRN AM YEAR [place] [facility] Dec 05, 2014 02:31 TOBACCO INPATIENT NO USE VA C NTRL WSTRN PM 30 DAYS [place] [facility] Dec 05, 2014 01:37 LIFETIME NON-TOBACCO VA CNTRL [facility]STRN PM [facility] Nov 03, 2014 01:14 TOBACCO INPATIENT NO USE VA C NTRL WSTRN PM 30 DAYS [place] [facility] Nov 02, 2014 10:36 TOBACCO INPATIENT NO USE VA C NTRL WSTRN AM 30 DAYS [place] [facility] Oct 06, 2003 03:47 QUIT TOBACCO USE > 7 VA CNTRL WSTRN AM YEARS AGO [facility] Advance Directives: All historical and current Section Date Range: From patient's date of to the date document was created. This section includes ALL of a patient's completed or amended [place] Advance and Rescinded Directives. The entries below indicate that a directive exists for the patient, but an actual copy is not included with this document. The data comes from all [place] facilities. Date Advance Directives Provider Source Sep 06, 2007 ADVANCE DIRECTIVE ROBERTO FONTENOT [place] CNTRL WSTR N [place] [facility] Encounter Notes: All associated encounter notes This section contains the clinical notes associated to the Encounter. Date/Time Encounter Note(s) Provider Source January 10, 2022 12:00 AM NONVA CONSULT: [place] CNTRL [place] STR[place] LOCAL TITLE: COMMUNITY CARE-CONSULT RESULT NOTE [place] [facility] STANDARD TITLE: NONVA CONSULT DATE OF NOTE: JANUARY 10, 2022 ENTRY DATE: FEB 16 022@14:02:35 AUTHOR: AMADO RUTHERFORD MA EXP COSIGNER: URGENCY: STATUS: COMPLETED VistA Imaging - Scanned Document SCANNED DOCUMENT SIGNATURE NOT REQUIRED Electronically Filed: 02/16/2022 by: AMADO RUTHERFORD LOGGER
--- OUTSIDE RECORDS SUMMARY | 2022-09-09 17:26 | XMS_ITS | Encounter Summary ---
:1960 Author Organization Department [facility] rs Address [address] [place] [id number] Support Name Relationship Address Phone MR MRS NERI KENNEDY Unavailable [address] [phone] [place] [address] MR MRS NERI KENNEDY Unavailable [address] [phone] [place] [address] Insurance Providers: All historical and current Section [...] Number Crowell [employer] MEDICARE MCR Oct 21, [id number] [phone] RONNY TREVOR HERNANDEZ PATIENT TH CARE ADVANTAGE (WNR) [id number] [facility] (WNR) MEDICAID MEDICAID [facility] Aug 23, [facility] [id number] [phone] TREVOR TRINH [facility]IENT [facility] 2014 D [id number] [facility] MEDICARE PART Nov 21, PART B [id number] [phone] TREVOR KENNEDY PATIENT (WNR) (M) B 2002A 00 FF[facility] MEDICARE MEDICARE PART Nov 21, PART A [id number] [phone] TREVOR KENNEDY PATIENT (WNR) (M) A 2002A 00 [facility] Nov 21, PART A [id number] TREVOR KENNEDY PATIENT (WNR) (M) A 2002A [facility] MEDICARE MEDICARE PART Nov 21, PART B [id number] TREVOR KENNEDY PATIENT (WNR) (M) B 2002 27A 4 [facility] Selected Encounter This section includes the information on record at [place] for the Encounter. Date/Time Encounter Type Encounter Description Reason Provider Source Sep 23, 2021 12:00 Outpatient Encounter EVENT (HISTORICAL) AM IHE Encounter Template Text not used [...] 20 appointments. The data comes from all [place] treatment facilities. Appointment Date/Time Appointment Type Appointment Facili ty Name January 01, 2022 08:00 AM [facility] [place] [facility] January 16, 2022 09:15 AM [facility] [place] [facility] Feb 16, 2022 10:00 AM [facility] [place] [facility] Mar 23, 2022 11:30 AM [facility] MED[facility] Immunizations: All administered on the encounter date This section contains immunizations associated to the Encounter. Immunization Series Date Issued Reaction Comments COVID-19 (Retrieve), MRNA, LNP-S, PF, 30 MCG/0.3 3 Sep 23, 2021 ML DOSE, CIRO-SUCROSE (AGES 12+ YEARS) Social History: Smoking Status (Most current) and [...] Comment Facility Feb 04, 2021 11:00 AM [place]-TOBACCO NEVER USED [facility] Tobacco Use History This section includes a history of the smoking, or tobacco- related health factors, that were collected on or before the date of the Encounter. The data comes from the [place] facility where the Encounter took place. 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 [facility] Dec 06, 2015 09:59 QUIT TOBACCO USE IN PAST [place] C NTRL WSTRN AM YEAR [facility] Dec 05, 2014 02:31 TOBACCO INPATIENT NO USE VA C NTRL WSTRN PM 30 DAYS [facility] Dec 05, 2014 01:37 LIFETIME NON-TOBACCO VA CNTRL WSTRN PM USER [facility] Nov 03, 2014 01:14 TOBACCO INPATIENT NO USE VA C NTRL WSTRN PM 30 DAYS [facility] Nov 02, 2014 10:36 TOBACCO INPATIENT NO USE VA C NTRL WSTRN AM 30 DAYS [facility] Oct 06, 2003 03:47 QUIT TOBACCO USE > 7 VA CNTRL WSTRN AM YEARS AGO [facility] Advance Directives: All historical and current [...] DIRECTIVE ROBERTO FONTENOT [place] CNTRL WSTR N [facility]
--- OUTSIDE RECORDS SUMMARY | 2022-09-09 17:27 | XMS_ITS | Encounter Summary ---
:1960 Author Organization Department [facility] rs Address [address] [place] [id number] Support Name Relationship Address Phone MR MRS NERI KENNEDY Unavailable [address] [place] [address] MR MRS NERI KENNEDY Unavailable [address] [phone] [place] [address] Insurance Providers: All historical and current Section [...] Number Crowell [employer] MEDICARE MCR Oct 21, [id number] TREVOR LEMUS PATIENT CARE ADVANTAGE (WNR) 2018 [id number] [facility] MEDICAID MEDICAID [facility] Aug 23, [facility] [id number] [phone] TRE[facility]OR TRINH [facility]IENT [facility] 2014 D [id number] FFREY [facility] MEDICARE PART Nov 21, PART B [id number] [phone] TREVOR KENNEDY PATIENT (WNR) (M) B 2002A 00 [facility] MEDICARE MEDICARE PART Nov 21, PART A [id number] [phone] TRVEOR KENNEDY PATIENT (WNR) (M) A 2002A [facility] MEDICARE MEDICARE PART Nov 21, PART A [id number] TREVOR KENNEDY PATIENT (WNR) (M) A 2002A [facility] MEDICARE MEDICARE PART Nov 21, PART B [id number] TREVOR KENNEDY PATIENT (WNR) (M) B 2002 27A 4 [facility] Selected Encounter This section includes the information on record at [place] for the Encounter. Date/Time Encounter Type Encounter Description Reason Provider Source Mar 11, 2022 01:56 Outpatient Encounter TELEPHONE TRIAGE PM IHE Encounter Template Text not used by [place] Plan of Treatment: Future Appointments (+ 6 months) and Future Tests (+/- 45 days) The Plan of Treatment section includes future care activities for the patient from all [place] [facility]. This section includes future appointments and future orders which are active, pending orscheduled.Future Appointments This section includes appointments that were scheduled to occur 6 months from the date of the Encounter, up to a maximum of 20 appointments. The data comes from all [facility]. Appointment Date/Time Appointment Type Appointment Facili ty Name Mar 23, 2022 11:30 AM AM[place]UL[place]ICINE [place] [facility] Mar 25, 2022 08:00 AM [facility] MEDICINE [place] [facility] Apr 09, 2022 09:00 AM AM[place]UL[place]ORY MEDICINE [place] [facility] May 18, 2022 08:30 AM AMBULATORY MEDICINE [place] [facility] Aug 31, 2022 10:00 AM AMBULATORY - REHAB MEDICINE [facility] [place] [place] [facility] Active, Pending, and Scheduled Orders This section includes a listing of several types of active, pending, and scheduled orders, including clinic medications orders, diagnostic test orders, procedure orders and consult orders; where the start date of the order is 45 days before the date of the Encounter or 45 days after the date of the Encounter. The data comes from all [facility]. Test Date/Time Test Type Test Details Facility Name Mar 23, 2022 12:00 AM Laboratory - Chemistry URINALYSIS URINE SP Order Mar 23, 2022 12:00 AM Laboratory - Chemistry MICROALBUMIN CREATI NINE Order RATIO PANEL URINE (RANDOM) SP Lab Results: +/- 30 days of the encounter This section includes the Chemistry and Hematology Lab Results on record with [place] for the patient. Radiology Reports and Pathology Reports are provided separately, in subsequent sections.Lab Results This section contains the Chemistry/Hematology Results that were resulted 30 days before or 30 daysafter the date of the Encounter. Date/Time Source Result Type Result - Unit Interpretation Reference Range Comment Mar 23, [facility] VITAMIN D Specimen Type: SERUM 2021 [place] 25-OH Comment: Vitami n D, 25-Hydroxy reports concentrations of two common forms, 25-OHD2 and 25-OHD3. 25-OHD3 indicates both endogenous production and supplementation. 25-OHD2 is an indicator of exogenous so 12:22 PM HCS (Therapy urces such as di et or supplementation. Therapy is based on measurement of Total 25-OHD, with levels <20 ng/mL indicative of Vitamin D deficiency, while levels between 20 ng/mL and 30 ng/mL suggest in monitor) sufficiency. Opt imal levels are > or = 30 ng/mL. Vitamin D is fat- soluble and therefore inadvertent or intentional ingestion of excessively high amounts could be toxic. Studies in children and adults suggest blood l evels would need to exceed 150 ng/mL before there is any concern. Jadyn MF, Zac EDWARDS, Charlee OBRIEN, et al. Evaluation, treatment and prevention of vitamin D deficiency: an Endo crine Society cl inical practice guideline. J Clin Endocrinol Metab. 2011;96(7):1911-30. For additional information, please refer to http://education.B[employer] Interactive/faq/BWO930 (This link is being p rovided for info rmational/ educational purposes only.) This test was developed and its analytical performance characteristics have been determined by [facility] [place]. I t has not been c leared or approved by the U.S. Food and Drug Administration. This assay has been validated pursuant to the CLIA regulations and is used for clinical purposes. This test was developed and its analytical performance characteristics have been determined by [facility] [place] [place]. It has not been cleared or approved by the U.S. Food and Drug Administration. This assay has been v alidated pursuant to the CLIA regulations and is used for clinical purposes. Test Performed by [facility], [facility] [place], [address] [place] [address] Eric Murguia M.D., Ph.D., Director of Laboratories , CLIA [id number] TEST PERFORMED AT: , Ordering Provid er: BALTAZAR SWANSON Report Released Date/Time: Feb 04, 2022 11:15 AM Reporting Lab[facility] [address] [facility] [facility] [address] Performing Lab: [facility] [address] [place] [address] VITAMIN D, 25-OH, TOTAL 38 30-100 VITAMIN D, 25-OH, D3 38 VITAMIN D, 25-OH, D2 <4 Mar 23, 2022 [facility] HEMOGLOBIN A1C Specimen Type: BLOOD 12:22 PM [facility] PANEL Comment: Values obtained from A1C measurements can vary. For typical A1C assays, a reported value of 7.0 could actually be between 6.72 and 7.28 if measured by a reference method. A reported value of 9 .0 could actuall y be between 8.73 and 9.27. Ref: http://www.ngsp.org/CAPdata.asp Ordering Provid er: BALTAZAR SWANSON Report Released Date/Time: Feb 04, 2022 11:15 AM Reporting Lab: [facility] [address] [address] Performing Lab: [facility] [address] [facility] [facility] [address] HEMOGLOBIN A1C 8.1 H 4.0-5.6 Mar 23, 2022 12:22 [facility] MAGNESIUM Specimen Typ e: SERUM PM [facility] No comment enter ed. Ordering Provid er: BALTAZAR SWANSON Report Released Date/Time: Feb 04, 2022 11:15 AM Reporting Lab: [facility] [address] [facility] [facility] [address] Performing Lab: [facility] [address] [facility] [facility] [address] MAGNESIUM 1.6 1.6-2.6 Mar 23, 2022 12:22 [facility] LIVER FUNCTION Specimen Typ e: SERUM PM [facility] No comment enter ed. Ordering Provid er: BALTAZAR SWANSON Report Released Date/Time: Feb 04, 2022 11:15 AM Reporting Lab: [place] CNTRL [place] [facility] [address] [facility] [facility] [address] Performing Lab: [place] CN[place]L [place] [facility] [address] [facility] [facility] [address] PROTEIN,TOTAL 7.4 6.0-8.3 ALBUMIN 4.1 3.5-5.0 ALKALINE PHOSPHATASE 80 40-150 AST 20 5-34 ALT 26 <6-55 BILIRUBIN, TOTAL 0.5 0.2-1.2 Mar 23, 2022 12:22 PM [place] CNTRL [place] CBC Specimen Type: BLOOD HCS No comment enter ed. Ordering Provid er: BALTAZAR SWANSON Report Released Date/Time: Feb 04, 2022 11:15 AM Reporting Lab: [facility] [place] [facility] [address] [facility] [address] Performing Lab: [facility] [place] [facility] [address] [facility] [facility] [address] WBC 9.13 4.50-11.00 RBC 4.34 4.23-5.66 HGB 14.1 12.8-17 HCT 40.4 39.2-50.4 MCV 93.1 82-99 MCHC 34.9 30.8-35.1 PLT 188 140-360 RDW-CV 11.6 L 12.0-16.0 MCH 32.5 26.2-32.6 Mar 23, 2022 [facility] CNTRL [facility] BASIC METABOLIC Specimen Type: SERUM 12:22 PM [facility] PANEL (fasting) No comment enter ed. Ordering Provid er: BALTAZAR SWANSON Report Released Date/Time: Feb 04, 2022 11:15 AM Reporting Lab: [place] [facility] [address] [facility] [facility] [address] Performing Lab: [place] CN[place] [facility] [address] [facility] [address] UREA NITROGEN 23 7-25 GLUCOSE 211 H 65-100 SODIUM 135 135-145 POTASSIUM 4.9 3.5-5.0 CHLORIDE 100 100-110 CO2 25 20-30 CREATININE, Serum 1.14 0.50-1.40 eGFR(CKD-EPI 2020) 72 >60 Mar 23, 2022 12:22 PM [facility] TSH Specimen Type: SERUM HCS No comment enter ed. Ordering Provid er: BALTAZAR SWANSON Report Released Date/Time: Feb 04, 2022 11:15 AM Reporting Lab: [facility] [place] [facility] [address] [facility] [address] Performing Lab: [facility] [place] [facility] [address] [facility] [address] TSH 1.41 0.35-5.00 Mar 23, 2022 [facility] CNTRL WSTRN PT & INR (COUMADIN) Specimen Ty pe: PLASMA 12:22 PM [place] [facility] No comment enter ed. Ordering Provid er: BALTAZAR SWANSON Report Released Date/Time: Feb 04, 2022 11:15 AM Reporting Lab: [facility] [place] [facility] [address] [facility] [address] Performing Lab: [facility] [place] [facility] [address] [facility] [address] INR 1.3 PROTIME 14.7 H 10.0-13.1 Social History: Smoking Status (Most current) and Tobacco Use (All prior to encounter date) This section includes the most current, and the historical, smoking and tobacco-related health factors from the [place] facility where the Encounter took place.Current Smoking Status This section includes the most current smoking, or tobacco-related health factor, from the [place] facility where the Encounter took place. Date/Time Current Smoking Status Comment Facility Feb 16, 2022 10:00 AM VA-TOBACCO FORMER USER VA CNTRL [facility]STRN [place] [facility] Tobacco Use History This section includes a history of the smoking, or tobacco- related health factors, that were collected on or before the date of the Encounter. The data comes from the [place] facility where the Encounter took place. Date/Time Smoking Status/Tobacco Comment Facility Use Feb 16, 2022 10:00 VA-TOBACCO QUIT 15 YRS VA CNT RL WSTRN AM OR MORE [place] [facility] Feb 04, 2021 11:00 VA-TOBACCO NEVER USED VA CNTR L [place]STR[place] AM [place] [facility] Feb 04, 2021 11:00 VA-TOBACCO USE DECLINED VA CN TRL WSTRN AM TO ANSWER [place] [facility] May 08, 2019 11:06 VA-TOBACCO FORMER USER VA CNT RL [place]STRN AM [place] [facility] May 08, 2019 11:06 VA-TOBACCO QUIT 15 YRS [facility] Oct 26, 2018 11:33 VA-TOBACCO NEVER USED VA CNTR L [place] AM [place] [facility] Oct 21, 2017 09:29 QUIT TOBACCO USE > 7 VA CNTRL 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, 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 [facility] Dec 06, 2015 09:59 QUIT TOBACCO USE IN PAST VA C NTRL WSTRN AM [facility]AR [facility] Dec 05, 2014 02:31 TOBACCO INPATIENT NO USE VA C NTRL WSTRN PM 30 DAYS [place] [facility] Dec 05, 2014 01:37 LIFETIME NON-TOBACCO VA CNTRL WSTRN PM [facility] Nov 03, 2014 01:14 TOBACCO INPATIENT NO USE VA C NTRL WSTRN PM 30 DAYS [place] [facility] Nov 02, 2014 10:36 TOBACCO INPATIENT NO USE VA C NTRL WSTRN AM 30 DAYS [place] [facility] Oct 06, 2003 03:47 QUIT TOBACCO USE > 7 VA CNTRL WSTRN AM YEARS AGO [facility] Advance Directives: All historical and current Section Date Range: From patient's date of to the date document was created. This section includes ALL of a patient's completed or amended [place] Advance and Rescinded Directives. The entries below indicate that a directive exists for the patient, but an actual copy is not included with this document. The data comes from all [place] facilities. Date Advance Directives Provider Source Sep 06, 2007 ADVANCE DIRECTIVE ROBERTO FONTENOT [place] CNTRL WSTR N [facility] Encounter Notes: All associated encounter notes This section contains the clinical notes associated to the Encounter. Date/Time Encounter Note(s) Provider Source Mar 11, 2022 01:56 PM TELEPHONE ENCOUNTER NOTE: ROHAN KIM [facility] LOCAL TITLE: VISN 1 [facility] ACTION REQUIRED [facility] STANDARD TITLE: TELEPHONE ENCOUNTER NOTE DATE OF NOTE: MAR 11, 2022@13:56:48 ENTRY DATE: MAR 11, 2022@14:00:15 AUTHOR: ROHAN KIM EXP COSIGNER: URGENCY: STATUS: COMPLETED VISN 1 [facility] ACTION REQUIRED Has ADDENDA The patient, OTILIA KENNEDY ([id number] ) called the call center. The following identifiers were used to verify th is patient: . SSN. Contact Type of call: ADMINISTRATIVE. Caller Response: ADM CALL RESOLVED Caller Area: [facility] Provider Info: [facility] CNTRL WSTR[facility] [place] [facility] ([phone] PACT: NO PACT 3 (Focus: Primary Care Only) Primary Care Provider: BALTAZAR SWANSON Machine Maintenance Supervisor: BETHANIE ANTOINE PHONE:[phone] Clinical Associate: AMAURY FALLON KAREN NE:[phone] Carbonation Equipment Tender: KATHY MENDOZA Clinical POC: Machine Maintenance Supervisor BETHANIE ANTOINE PHONE:[phone] Administrative POC: Carbonation Equipment Tender KATHY MENDOZA Author: ROHAN KIM Comments: called requesting to speak to PCP regard ing ongoing issues with left knee and lower back. Kindly call back. Evaluation/Management Code: HC PRO PHONE CALL 5- 10 MIN ([phone]). Starting at: 03/11/2022 @ 1:56:48 PM Ending at: 03/11/2022 @ 1:59:00 PM Length: 2 minutes. Chief Complaint: Not applicable to call. Class Code: Other specified counseling. Patient's Email Address: /tan/ ROHAN DIAZ 1 CCC LEAD AMSA Signed: 03/11/2022 14:00 Receipt Acknowledged By: 03/13/2022 14:28 /tan/ BETHANIE ANTOINE RN REGISTERED NURSE * AWAITING SIGNATURE * AMAURY FALLON 03/13/2022 ADDENDUM STATUS: COMPLETED Unable to reach [place] at l isted number [phone]. Left VM on self-identified mailbox with call back number. /tan/ BETHANIE ANTOINE RN REGISTERED NURSE Signed: 03/13/2022 14:29
--- OUTSIDE RECORDS SUMMARY | 2022-09-09 17:27 | XMS_ITS | Encounter Summary ---
:1960 Author Organization Department [facility] rs Address [address] [place] [id number] Support Name Relationship Address Phone MR MRS NERI KENNEDY Unavailable [address] [place] [address] MR MRS NERI KENNEDY Unavailable [address] [phone] [place] [address] Insurance Providers: All historical and current Section [...] Number [place] MEDICARE MCR Oct 21, [id number] TREVOR LEMUS PATIENT CARE ADVANTAGE (WNR) [phone] [facility] (WNR) MEDICAID MEDICAID [facility] Aug 23, [facility] [id number] [phone] TREVOR TRINH [facility]IENT [facility] 2014 [id number] [facility] MED[facility]ARE PART Nov 21, PART A [id number] [phone] TREVOR KENNEDY PATIENT (WNR) (M) A 2002A 00 FF[facility] MEDICARE MEDICARE PART Nov 21, PART B [id number] [phone] TREVOR KENNEDY PATIENT (WNR) (M) B 2002A [facility] MEDICARE MEDICARE PART Nov 21, PART A [id number] TREVOR KENNEDY PATIENT (WNR) (M) A 2002A [facility] MEDICARE MEDICARE PART Nov 21, PART B [id number] TREVOR KENNEDY PATIENT (WNR) (M) B 2002 [id number] 4 FFREY Selected Encounter This section includes the information on record at OR for the Encounter. Date/Time Encounter Type Encounter Description Reason Provider Source Mar 11, 2022 03:52 Outpatient Encounter COMMUNITY CARE PM CONSULT IHE [...] 20 appointments. The data comes from all [facility]. Appointment Date/Time Appointment Type Appointment Facili ty Name Mar 23, 2022 11:30 AM AMBULATORY MEDICINE [facility] [place] [facility] Mar 25, 2022 08:00 AM AMBULATORY MEDICINE [place] [facility] [place] [facility] Apr 09, 2022 09:00 AM AMBULATORY MEDICINE [facility] [place] [facility] May 18, 2022 08:30 AM AMBULATORY MEDICINE [facility] [place] [facility] Aug 31, 2022 10:00 AM AMBULATORY - REHAB MEDICINE [facility] [place] [facility] Active, Pending, and Scheduled Orders This section includes a listing of several types of active, pending, and scheduled orders, including clinic medications orders, diagnostic test orders, procedure orders and consult orders; where the start date of the order is 45 days before the date of the Encounter or 45 days after the date of the Encounter. The data comes from all [facility]. Test Date/Time Test Type Test Details Facility Name Mar 23, 2022 12:00 AM Laboratory - Chemistry URINALYSIS URINE SP Order Mar 23, 2022 12:00 AM Laboratory - Chemistry MICROALBUMIN CREATI NINE Order RATIO PANEL URINE (RANDOM) SP Lab Results: +/- 30 days of the encounter This section includes the Chemistry and Hematology Lab Results on record with OR for the patient. Radiology Reports and Pathology Reports are provided separately, in subsequent sections.Lab Results This section contains the Chemistry/Hematology Results that were resulted 30 days before or 30 daysafter the date of the Encounter. Date/Time Source Result Type Result - Unit Interpretation Reference Range Comment Mar 23, [facility] Specimen Type: SERUM 2021 [...] 2011;96(7):1911-30. For additional information, please refer to http://education.S.N. Safe&Software/faq/TUH347 (This link is being p rovided for info rmational/ educational purposes only.) This test was developed and its analytical performance characteristics have been determined by [employer] [place], [place]. I t has not been c leared or approved by the U.S. Food and Drug Administration. This assay has been validated pursuant to the CLIA regulations and is used for clinical purposes. This test was developed and its analytical performance characteristics have been determined by [employer] [place], [place]. It has not been cleared or approved by the U.S. Food and Drug Administration. This assay has been v alidated pursuant to the CLIA regulations and is used for clinical purposes. Test Performed by [facility], [employer] [place], [address] [place] [address] Eric Murguia M.D., Ph.D., Director of Laboratories , CLIA [id number] TEST PERFORMED AT: , Ordering Provid er: BALTAZAR LIAO Report Released Date/Time: Feb 04, 2022 11:15 AM Reporting Lab: [facility] [address] [address] Performing Lab: [facility] [address] [place] [address] VITAMIN D, 25-OH, TOTAL 38 30-100 VITAMIN D, 25-OH, D3 38 VITAMIN D, 25-OH, D2 <4 Mar 23, 2022 [facility] HEMOGLOBIN A1C Specimen Type: BLOOD 12:22 PM [facility] PANEL Comment: Values obtained from A1C measurements can vary. For typical A1C assays, a reported value of 7.0 could actually be between 6.72 and 7.28 if measured by a reference method. A reported value of 9 .0 could actuall y be between 8.73 and 9.27. Ref: http://www.ngsp.org/CAPdata.asp Ordering Provid er: BALTAZAR LIAO Report Released Date/Time: Feb 04, 2022 11:15 AM Reporting Lab: [facility] [address] [address] Performing Lab: [facility] [address] [address] HEMOGLOBIN A1C 8.1 H 4.0-5.6 Mar 23, 2022 [facility] PT & INR (COUMADIN) Specimen Ty pe: PLASMA 12:22 PM [facility] No comment enter ed. Ordering Provid er: BALTAZAR LIAO Report Released Date/Time: Feb 04, 2022 11:15 AM Reporting Lab: [facility] [address] [address] Performing Lab: [facility] [address] [address] INR 1.3 PROTIME 14.7 H 10.0-13.1 Mar 23, 2022 12:22 [facility] MAGNESIUM Specimen Typ e: SERUM PM [facility] No comment enter ed. Ordering Provid er: BALTAZAR LIAO Report Released Date/Time: Feb 04, 2022 11:15 AM Reporting Lab: [facility] [address] [address] Performing Lab: [facility] [address] [address] MAGNESIUM 1.6 1.6-2.6 Mar 23, 2022 12:22 [facility] LIVER FUNCTION Specimen Typ e: SERUM PM [facility] No comment enter ed. Ordering Provid er: BALTAZAR LIAO Report Released Date/Time: Feb 04, 2022 11:15 AM Reporting Lab: [facility] [address] [address] Performing Lab: [facility] [place] [facility] [address] [address] PROTEIN,TOTAL 7.4 6.0-8.3 ALBUMIN 4.1 3.5-5.0 ALKALINE PHOSPHATASE 80 40-150 AST 20 5-34 ALT 26 <6-55 BILIRUBIN, TOTAL 0.5 0.2-1.2 Mar 23, 2022 12:22 PM [facility] [place] TSH Specimen Type: SERUM [facility] No comment enter ed. Ordering Provid er: BALTAZAR LIAO Report Released Date/Time: Feb 04, 2022 11:15 AM Reporting Lab: [facility] [address] [address] Performing Lab: [facility] [address] [address] TSH 1.41 0.35-5.00 Mar 23, 2022 12:22 PM [facility] [place] CBC Specimen Type: BLOOD [facility] No comment enter ed. Ordering Provid er: BALTAZAR LIAO Report Released Date/Time: Feb 04, 2022 11:15 AM Reporting Lab: [facility] [address] [address] Performing Lab: [facility] [address] [address] WBC 9.13 4.50-11.00 RBC 4.34 4.23-5.66 HGB 14.1 12.8-17 HCT 40.4 39.2-50.4 MCV 93.1 82-99 MCHC 34.9 30.8-35.1 PLT 188 140-360 RDW-CV 11.6 L 12.0-16.0 MCH 32.5 26.2-32.6 Mar 23, 2022 [facility] BASIC METABOLIC Specimen Type: SERUM 12:22 PM [place] [facility] PANEL (fasting) No comment enter ed. Ordering Provid er: BALTAZAR LIAO Report Released Date/Time: Feb 04, 2022 11:15 AM Reporting Lab: [facility] [place] [facility] [address] [address] Performing Lab: [facility] [place] [facility] [address] [address] UREA NITROGEN 23 7-25 GLUCOSE 211 H 65-100 SODIUM 135 135-145 POTASSIUM 4.9 3.5-5.0 CHLORIDE 100 100-110 CO2 25 20-30 CREATININE, Serum 1.14 0.50-1.40 eGFR(CKD-EPI 2020) 72 >60 Social History: Smoking Status (Most current) and [...] 16, 2022 10:00 AM VA-TOBACCO FORMER USER [facility] [place] [facility] Tobacco Use History This section includes a history of the smoking, or tobacco- related health factors, that were collected on or before the date of the Encounter. The data comes from the [place] facility where the Encounter took place. Date/Time Smoking Status/Tobacco Comment Facility Use Feb 16, 2022 10:00 VA-TOBACCO QUIT 15 YRS VA CNT RL [facility] AM OR MORE [place] [facility] Feb 04, 2021 11:00 VA-TOBACCO NEVER USED VA CN[facility] L [facility] [place] [facility] Feb 04, 2021 11:00 VA-TOBACCO USE DECLINED VA CN TRL [facility] May 08, 2019 11:06 VA-TOBACCO FORMER USER [facility] [place] [facility] May 08, 2019 11:06 VA-TOBACCO QUIT 15 YRS VA CNT RL W[facility]N AM OR MORE [facility] Oct 26, 2018 11:33 VA-TOBACCO NEVER USED [facility] Oct 21, 2017 09:29 QUIT TOBACCO USE > 7 VA CN[facility]L 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, cigarettes [facility] Dec 06, 2015 09:59 QUIT TOBACCO USE IN PAST VA C NTRL [facility] AM YEAR [facility] Dec 05, 2014 02:31 TOBACCO INPATIENT NO USE [facility] PM [facility] Dec 05, 2014 01:37 LIFETIME NON-TOBACCO VA [facility] PM USER [facility] Nov 03, 2014 01:14 TOBACCO INPATIENT NO USE [facility] PM [facility] Nov 02, 2014 10:36 TOBACCO INPATIENT NO USE [facility] C [facility] AM 30 DAYS [facility] Oct 06, 2003 03:47 QUIT TOBACCO USE > 7 VA CNTRL W[facility]N AM YEARS AGO [facility] Advance Directives: All historical and [...] DIRECTIVE ROBERTO FONTENOT OR CNTRL WSTR N [facility] Encounter Notes: All associated encounter notes This section contains the clinical notes associated to the Encounter. Date/Time Encounter Note(s) Provider Source Mar 11, 2022 03:52 PM NONVA NOTE: ANKIT HOYT LOCAL TITLE: COMMUNITY CARE COORDINATION PLAN STANDARD TITLE: NONVA NOTE DATE OF NOTE: MAR 11, 2022@15:52 ENTRY DATE: MAR 11, 2022@15:52:45 AUTHOR: ANKIT HOYT EXP COSIGNER: URGENCY: STATUS: COMPLETED self-presented to community emergency fa cility Emergency Notification Intake Date Presenting to the Facility: Feb [facility] [place]: Hospital: [facility], [place], [place] Address: City: [place]: Zip Code: Phone : Chief complaint: [id number] - Pain in leg, unspecifi ed Primary Diagnosis: Patient Admitted? No Community Facility Point of Contact: Name: Alize Phone: info from ECRA /es/ ANKIT HOYT AMSA Signed: 03/11/2022 15:53 Receipt Acknowledged By: 03/11/2022 15:58 /es/ BETHANIE ANTOINE RN REGISTERED NURSE * AWAITING SIGNATURE * SHADY RENO 03/11/2022 16:02 /es/ Baltazar Liao PA-C STAFF PHYSICIAN [employer] [facility] * AWAITING SIGNATURE * JORGE L GEORGE
--- OUTSIDE RECORDS SUMMARY | 2022-09-09 17:28 | XMS_ITS | Encounter Summary ---
:1960 Author Organization Department [facility] Address [address] [place] [id number] Support Name Relationship Address Phone MR MRS NERI KENNEDY Unavailable [address] [place] [address] MR MRS NERI KENNEDY Unavailable [address] [place] [address] Insurance Providers: All historical and current Section [...] Number [place] MEDICARE MCR Oct 21, [id number] TREVOR LEMUS PATIENT CARE ADVANTAGE (WNR) [phone] [facility] (WNR) MEDICAID MEDICAID [facility] Aug 23, [facility] [id number] [phone] TREVOR TRINH PATIENT [facility] 2014 D [id number] FFREY D MEDICARE MEDICARE PART Nov 21, PART A [id number] [phone] TREVOR KENNEDY PATIENT (WNR) (M) A 2002A 00 FFREY MEDICARE MEDICARE PART Nov 21, PART B [id number] [phone] TREVOR KENNEDY PATIENT (WNR) (M) B 2002A FFREY MEDICARE MEDICARE PART Nov 21, PART A [id number] TREVOR KENNEDY PATIENT (WNR) (M) A 2002A FFREY MEDICARE MEDICARE PART Nov 21, PART B [id number] TREVOR KENNEDY PATIENT (WNR) (M) B 2002 [id number] FFREY Selected Encounter This section includes the information on record at [place] for the Encounter. Date/Time Encounter Type Encounter Description Reason Provider Source Mar 18, 2022 10:46 Outpatient Encounter TELEPHONE TRIAGE AM IHE Encounter Template Text not used by [place] Plan of Treatment: Future Appointments (+ 6 months) and Future Tests (+/- 45 days) The Plan of Treatment section includes future care activities for the patient from all [place] [facility] This section includes future appointments and future orders which are active, pending orscheduled.Future Appointments This section includes appointments that were scheduled to occur 6 months from the date of the Encounter, up to a maximum of 20 appointments. The data comes from all [facility]. Appointment Date/Time Appointment Type Appointment Facili ty Name Mar 23, 2022 11:30 AM [facility] Mar [facility], [facility] [facility] Apr 09, 2022 09:00 AM [facility] [place] [facility] May 18, 2022 08:30 AM [facility] [place] [facility] Aug 31, 2022 10:00 AM AMBULATORY - [facility] Sep 18, 2022 10:00 AM AMBULATORY [facility] Active, Pending, and Scheduled Orders This section includes a listing of several types of active, pending, and scheduled orders, including clinic medications orders, diagnostic test orders, procedure orders and consult orders; where the start date of the order is 45 days before the date of the Encounter or 45 days after the date of the Encounter. The data comes from all [facility]. Test Date/Time Test Type Test Details Facility Name Mar 23, 2022 12:00 AM Laboratory - Chemistry URINALYSIS URINE SP Order Mar 23, 2022 12:00 AM Laboratory - Chemistry MICROALBUMIN CREATI NINE Order RATIO PANEL URINE (RANDOM) SP Lab Results: +/- 30 days of the encounter This section includes the Chemistry and Hematology Lab Results on record with [place] for the patient. Radiology Reports and Pathology Reports are provided separately, in subsequent sections.Lab Results This section contains the Chemistry/Hematology Results that were resulted 30 days before or 30 daysafter the date of the Encounter. Date/Time Source Result Type Result - Unit Interpretation Reference Range Comment Mar 23, [facility] VITAMIN D Specimen Type: SERUM 2021 [...] 2011;96(7):1911-30. For additional information, please refer to http://education.Parature/faq/OPA898 (This link is being p rovided for info rmational/ educational purposes only.) This test was developed and its analytical performance characteristics have been determined by [employer], [place]. I t has not been c leared or approved by the U.S. Food and Drug Administration. This assay has been validated pursuant to the CLIA regulations and is used for clinical purposes. This test was developed and its analytical performance characteristics have been determined by [employer] [place], [place]. It has not been cleared or approved by the U.S. Food and Drug Administration. This assay has been v alidated pursuant to the CLIA regulations and is used for clinical purposes. Test Performed by [facility], [employer] [facility], [address] [place], [place] Eric Murguia M.D., Ph.D., Director of Laboratories , [place] [id number] TEST PERFORMED AT: , Ordering Provid er: BALTAZAR SWANSON Report Released Date/Time: Feb 04, 2022 11:15 AM Reporting Lab: [facility] [address] [facility] [address] Performing Lab: [facility] [address] [place] [address] VITAMIN D, 25-OH, TOTAL 38 30-100 VITAMIN D, 25-OH, D3 38 VITAMIN D, 25-OH, D2 <4 Mar 23, 2022 [facility] HEMOGLOBIN A1C Specimen Type: BLOOD 12:22 PM [facility] PANEL Comment: Values obtained from A1C measurements can vary. For typical A1C assays, a reported value of 7.0 could actually be between 6.72 and 7.28 if measured by a reference method. A reported value of 9 .0 could actuall y be between 8.73 and 9.27. Ref: http://www.ngsp.org/CAPdata.asp Ordering Provid er: BALTAZAR SWANSON Report Released Date/Time: Feb 04, 2022 11:15 AM Reporting Lab: [facility] [address] [facility] [address] Performing Lab: [facility] [address] [facility] [address] HEMOGLOBIN A1C 8.1 H 4.0-5.6 Mar 23, 2022 [facility] PT & INR (COUMADIN) Specimen Ty pe: PLASMA 12:22 PM [facility] No comment enter ed. Ordering Provid er: BALTAZAR SWANSON Report Released Date/Time: Feb 04, 2022 11:15 AM Reporting Lab: [facility] [address] [facility] [facility] [address] Performing Lab: [facility] [address] [facility] [address] INR 1.3 PROTIME 14.7 H 10.0-13.1 Mar 23, 2022 12:22 [facility] LIVER FUNCTION Specimen Typ e: SERUM PM [place] [facility] No comment enter ed. Ordering Provid er: BALTAZAR SWANSON Report Released Date/Time: Feb 04, 2022 11:15 AM Reporting Lab: [facility] [place] [facility] [address] [facility] [address] Performing Lab: [place] [facility] [place] [facility] [address] [facility] [address] PROTEIN,TOTAL 7.4 6.0-8.3 ALBUMIN 4.1 3.5-5.0 ALKALINE PHOSPHATASE 80 40-150 AST 20 5-34 ALT 26 <6-55 BILIRUBIN, TOTAL 0.5 0.2-1.2 Mar 23, 2022 12:22 PM [facility] [place] CBC Specimen Type: BLOOD [facility] No comment enter ed. Ordering Provid er: BALTAZAR SWANSON Report Released Date/Time: Feb 04, 2022 11:15 AM Reporting Lab: [place] [facility] [facility] [address] [facility] [address] Performing Lab: [place] [facility] [facility] [address] [facility] [address] WBC 9.13 4.50-11.00 RBC 4.34 4.23-5.66 HGB 14.1 12.8-17 HCT 40.4 39.2-50.4 MCV 93.1 82-99 MCHC 34.9 30.8-35.1 PLT 188 140-360 RDW-CV 11.6 L 12.0-16.0 MCH 32.5 26.2-32.6 Mar 23, 2022 12:22 [facility] MAGNESIUM Specimen Typ e: SERUM PM [place] [facility] No comment enter ed. Ordering Provid er: BALTAZAR SWANSON Report Released Date/Time: Feb 04, 2022 11:15 AM Reporting Lab: [place] [facility] [facility] [address] [facility] [address] Performing Lab: [place] [facility] [facility] [address] [facility] [address] MAGNESIUM 1.6 1.6-2.6 Mar 23, 2022 12:22 PM [facility] [place] TSH Specimen Type: SERUM [facility] No comment enter ed. Ordering Provid er: BALTAZAR SWANSON Report Released Date/Time: Feb 04, 2022 11:15 AM Reporting Lab: [place] [facility] [place] [facility] [address] [facility] [address] Performing Lab: [place] [facility] [place] [facility] [address] [facility] [facility] [address] TSH 1.41 0.35-5.00 Mar 23, 2022 [facility] BASIC METABOLIC Specimen Type: SERUM 12:22 PM [place] [facility] PANEL (fasting) No comment enter ed. Ordering Provid er: BALTAZAR SWANSON Report Released Date/Time: Feb 04, 2022 11:15 AM Reporting Lab: [place] [facility] [place] [facility] [address] [facility] [address] Performing Lab: [place] [facility] [place] [facility] [address] [facility] [facility] [address] UREA NITROGEN 23 7-25 GLUCOSE 211 H 65-100 SODIUM 135 135-145 POTASSIUM 4.9 3.5-5.0 CHLORIDE 100 100-110 CO2 25 20-30 CREATININE, Serum 1.14 0.50-1.40 eGFR(CKD-EPI 2020) 72 >60 Social History: Smoking Status (Most current) and Tobacco Use (All prior to encounter date) This section includes the most current, and the historical, smoking and tobacco-related health factors from the [place] facility where the Encounter took place.Current Smoking Status This section includes the most current smoking, or tobacco-related health factor, from the [place] facility where the Encounter took place. Date/Time Current Smoking Status Comment Facility Feb 16, 2022 10:00 AM VA-TOBACCO QUIT 15 YRS OR [facility] [place] [facility] Tobacco Use History This section includes a history of the smoking, or tobacco- related health factors, that were collected on or before the date of the Encounter. The data comes from the [place] facility where the Encounter took place. Date/Time Smoking Status/Tobacco Comment Facility Use Feb 16, 2022 10:00 VA-TOBACCO QUIT 15 YRS [facility] AM OR MORE [place] [facility] Feb 04, 2021 11:00 VA-TOBACCO NEVER USED [facility] [place] [facility] Feb 04, 2021 11:00 VA-TOBACCO USE DECLINED [facility] AM TO ANSWER [place] [facility] May 08, 2019 11:06 VA-TOBACCO FORMER USER [facility] [place] [facility] May 08, 2019 11:06 VA-TOBACCO QUIT 15 YRS [facility] AM OR [place] [facility] Oct 26, 2018 11:33 VA-TOBACCO NEVER USED [facility] [place] [facility] Oct 21, 2017 09:29 QUIT TOBACCO USE > 7 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, [facility] Dec 06, 2015 09:59 QUIT TOBACCO USE IN PAST [facility] Dec 05, 2014 02:31 TOBACCO INPATIENT NO USE [facility] PM 30 DAYS [place] [facility] Dec 05, 2014 01:37 LIFETIME NON-TOBACCO [facility] Nov 03, 2014 01:14 TOBACCO INPATIENT NO USE [facility] PM 30 DAYS [place] [facility] Nov 02, 2014 10:36 TOBACCO INPATIENT NO USE [facility] AM 30 DAYS [place] [facility] Oct 06, 2003 03:47 QUIT TOBACCO USE > 7 [facility] AM YEARS AGO [facility] Advance Directives: All historical and current Section Date Range: From patient's date of to the date document was created. This section includes ALL of a patient's completed or amended [place] Advance and Rescinded Directives. The entries below indicate that a directive exists for the patient, but an actual copy is not included with this document. The data comes from all [place] facilities. Date Advance Directives Provider Source Sep 06, 2007 ADVANCE DIRECTIVE ROBERTO FONTENOT [place] [facility] [place] [facility] Encounter Notes: All associated encounter notes This section contains the clinical notes associated to the Encounter. Date/Time Encounter Note(s) Provider Source Mar 18, 2022 10:46 AM ADMINISTRATIVE NOTE: CIARA DORSEY [facility] LOCAL TITLE: CCC: SCHEDULING ADMINISTRATION [facility] STANDARD TITLE: ADMINISTRATIVE NOTE DATE OF NOTE: MAR 18, 2022@10:46:56 ENTRY DATE: MAR 18, 2022@10:49:50 AUTHOR: CIARA DORSEY EXP COSIGNER: URGENCY: STATUS: COMPLETED Type of call: ADMINISTRATIVE. PCMM Provider Info: [facility] ([id number]) PACT: NO PACT 3 (Focus: Primary Care Only) Primary Care Provider: BALTAZAR SWANSON Agronomy Specialist: BETHANIE ANTOINE PHONE:[phone] Clinical Associate: AMAURY FALLON KAREN NE:[phone] Office Clerk Assistant: KATHY MENDOZA Clinical POC: Agronomy Specialist BETHANIE ANTOINE PHONE:[phone] Administrative POC: Office Clerk Assistant KATHY MENDOZA *PATIENT called in for MARCIAOTILIA ALONSO ([id number]) . The following identifiers were used to verify th is patient: . SSN. Contact Caller Response: ADM CALL RESOLVED Caller Area: [place] Comments: [place] called requesting to speak to PCP regard ing ongoing issues with left knee and lower back. Kindly call back before 14:00. Author: CIARA DORSEY Evaluation/Management Code: HC PRO PHONE CALL 5- 10 MIN ([phone]). Starting at: 03/18/2022 @ 10:46:56 AM Ending at: 03/18/2022 @ 10:48:41 AM Length: 1 minutes. Chief Complaint: Not applicable to call. Class Code: Other specified counseling. /tan/ CIARA DORSEY ADVANCED SEAFOOD SPECIALIST Signed: 03/18/2022 10:49 Receipt Acknowledged By: * AWAITING SIGNATURE * AMAURY FALLON * AWAITING SIGNATURE * BETHANIE ANTOINE
--- OUTSIDE RECORDS SUMMARY | 2022-09-09 17:29 | XMS_ITS ---
:1960 Author Organization [facility] rs Address [address] [place] [id number] Support Name Relationship Address Phone MR MRS NERI KENNEDY Unavailable [address] [phone] [place] [address] MR MRS NERI KENNEDY Unavailable [address] [phone] 5 [place] [address] Insurance Providers: All historical and current Section [...] Number [employer] MEDICARE MCR Oct 21, [id number] [phone] RONNY MARYTREVOR PATIENT CARE ADVANTAGE (WNR) [phone] [facility] (WNR) MEDICAID MEDICAID [facility] Aug 23, [facility] [id number] [phone] TREVOR TRINH PATIENT [facility] 2014 [id number] [facility] MEDICARE PART Nov 21, PART B [id number] [phone] TREVOR KENNEDY PATIENT (WNR) (M) B 2002A 00 FFREY MEDICARE MEDICARE PART Nov 21, PART A [id number] [phone] TREVOR KENNEDY PATIENT (WNR) (M) A 2002A 00 FFREY MEDICARE MEDICARE PART Nov 21, PART B [phone] TREVOR KENNEDY PATIENT (WNR) (M) B 2002A FFREY MEDICARE MEDICARE PART Nov 21, PART A [id number] [phone] TREVOR KENNEDY PATIENT (WNR) (M) A 2002 27A 4 [facility] Selected Encounter This section includes the information on record at [place] for the Encounter. Date/Time Encounter Type Encounter Description Reason Provider Source Mar 19, 2022 09:05 Outpatient Encounter ADMIN VIVI YENNI SHAMA (NISHANT) IHE Encounter Template Text not used by [place] Plan of Treatment: Future Appointments (+ 6 months) and Future Tests (+/- 45 days) The Plan of Treatment section includes future care activities for the patient from [facility] [place] [facility]. This section includes future appointments and future orders which are active, pending orscheduled.Future Appointments This section includes appointments that were scheduled to occur 6 months from the date of the Encounter, up to a maximum of 20 appointments. The data comes from all [facility]. Appointment Date/Time Appointment Type Appointment Facili ty Name Mar 23, 2022 11:30 AM [facility] Mar 25, 2022 08:00 AM [facility] [place] [place] [facility] Apr 09, 2022 09:00 AM [facility] [place] [facility] May 18, 2022 08:30 AM [facility] [place] [facility] Aug 31, 2022 10:00 AM [facility]ORY [facility] [place] [facility] Sep 18, 2022 10:00 AM [facility] Active, Pending, and Scheduled Orders This section includes a listing of several types of active, pending, and scheduled orders, including clinic medications orders, diagnostic test orders, procedure orders and consult orders; where the start date of the order is 45 days before the date of the Encounter or 45 days after the date of the Encounter. The data comes from all [facility]. Test Date/Time Test Type Test Details Facility Name Mar 23, 2022 12:00 AM Laboratory - Chemistry URINALYSIS URINE SP Order Mar 23, 2022 12:00 AM Laboratory - Chemistry MICROALBUMIN CREATI NINE Order RATIO PANEL URINE (RANDOM) SP Lab Results: +/- 30 days of the encounter This section includes the Chemistry and Hematology Lab Results on record with [place] for the patient. Radiology Reports and Pathology Reports are provided separately, in subsequent sections.Lab Results This section contains the Chemistry/Hematology Results that were resulted 30 days before or 30 daysafter the date of the Encounter. Date/Time Source Result Type Result - Unit Interpretation Reference Range Comment Mar 23, [place] CNTRL WSTRN VITAMIN D Specimen Type: SERUM 2021 [...] 2011;96(7):1911-30. For additional information, please refer to http://education.Mytonomy.Sensegon/faq/FKN375 (This link is being p rovided for info rmational/ educational purposes only.) This test was developed and its analytical performance characteristics have been determined by [employer] [place], [place]. I t has not been c leared or approved by the U.S. Food and Drug Administration. This assay has been validated pursuant to the CLIA regulations and is used for clinical purposes. This test was developed and its analytical performance characteristics have been determined by [employer] [place], [place]. It has not been cleared or approved by the U.S. Food and Drug Administration. This assay has been v alidated pursuant to the CLIA regulations and is used for clinical purposes. Test Performed by [facility], [employer] Manuel [address] Eric Murguia M.D., Ph.D., Director of Laboratories , [facility] [id number] TEST PERFORMED AT: , Ordering Provid er: BALTAZAR SWANSON Report Released Date/Time: Feb 04, 2022 11:15 AM Reporting Lab: [facility] [place] [facility] [address] [facility] [address] Performing [facility]: [facility] [address] [facility] [address] [place], [address] [facility] [address] VITAMIN D, 25-OH, TOTAL 38 30-100 VITAMIN D, 25-OH, D3 38 VITAMIN D, 25-OH, D2 <4 Mar 23, 2022 [facility] Specimen Type: BLOOD 12:22 PM [place] [facility] PANEL Comment: Values obtained from A1C measurements can vary. For typical A1C assays, a reported value of 7.0 could actually be between 6.72 and 7.28 if measured by a reference method. A reported value of 9 .0 could actuall y be between 8.73 and 9.27. Ref: http://www.ngsp.org/CAPdata.asp Ordering Provid er: BALTAZAR SWANSON Report Released Date/Time: Feb 04, 2022 11:15 AM Reporting [facility] [address] [facility] [address] Performing [facility]: [facility] [address] [facility] [address] HEMOGLOBIN A1C 8.1 H 4.0-5.6 Mar 23, 2022 [facility]COUMADIN) Specimen Ty pe: PLASMA 12:22 PM [place] [facility] No comment enter ed. Ordering Provid er: BALTAZAR SWANSON Report Released Date/Time: Feb 04, 2022 11:15 AM Reporting Lab: [facility] [place] [facility] [address] [facility] [address] Performing [facility]: [facility] [address] [facility] [address] INR 1.3 PROTIME 14.7 H 10.0-13.1 Mar 23, 2022 12:22 PM [facility] [place] CBC Specimen Type: BLOOD HCS No comment enter ed. Ordering Provid er: BALTAZAR SWANSON Report Released Date/Time: Feb 04, 2022 11:15 AM Reporting Lab: [facility] [place] [facility] [address] [facility] [address] Performing Lab: [facility] [place] [facility] [address] [facility] [address] WBC 9.13 4.50-11.00 RBC 4.34 4.23-5.66 HGB 14.1 12.8-17 HCT 40.4 39.2-50.4 MCV 93.1 82-99 MCHC 34.9 30.8-35.1 PLT 188 140-360 RDW-CV 11.6 L 12.0-16.0 MCH 32.5 26.2-32.6 Mar 23, 2022 12:22 PM [facility] [place] TSH Specimen Type: SERUM HCS No comment enter ed. Ordering Provid er: BALTAZAR SWANSON Report Released Date/Time: Feb 04, 2022 11:15 AM Reporting Lab: [facility] [place] [facility] [address] [facility] [address] Performing Lab: [facility] [place] [facility] [address] [facility] [address] TSH 1.41 0.35-5.00 Mar 23, 2022 12:22 [facility] MAGNESIUM Specimen Typ e: SERUM PM [place] [facility] No comment enter ed. Ordering Provid er: BALTAZAR SWANSON Report Released Date/Time: Feb 04, 2022 11:15 AM Reporting Lab: [facility] [place] [facility] [address] [facility] [address] Performing Lab: [facility] [place] [facility] [address] [facility] [address] MAGNESIUM 1.6 1.6-2.6 Mar 23, 2022 12:22 [facility] LIVER FUNCTION Specimen Typ e: SERUM PM [place] [facility] No comment enter ed. Ordering Provid er: BALTAZAR SWANSON Report Released Date/Time: Feb 04, 2022 11:15 AM Reporting Lab: [facility] [address] [facility] [address] Performing Lab: [facility] [address] [facility] [address] PROTEIN,TOTAL 7.4 6.0-8.3 ALBUMIN 4.1 3.5-5.0 ALKALINE PHOSPHATASE 80 40-150 AST 20 5-34 ALT 26 <6-55 BILIRUBIN, TOTAL 0.5 0.2-1.2 Mar 23, 2022 [facility] BASIC METABOLIC Specimen Type: SERUM 12:22 PM [place] [facility] PANEL (fasting) No comment enter ed. Ordering Provid er: BALTAZAR SWANSON Report Released Date/Time: Feb 04, 2022 11:15 AM Reporting Lab: [facility] [address] [facility] [address] Performing Lab: [facility] [address] [facility] [address] UREA NITROGEN 23 7-25 GLUCOSE 211 H 65-100 SODIUM 135 135-145 POTASSIUM 4.9 3.5-5.0 CHLORIDE 100 100-110 CO2 25 20-30 CREATININE, Serum 1.14 0.50-1.40 eGFR(CKD-EPI 2020) 72 >60 Social History: Smoking Status (Most current) and Tobacco Use (All prior to encounter date) This section includes the most current, and the historical, smoking and tobacco-related health factors from the [place] facility where the Encounter took place.Current Smoking Status This section includes the most current smoking, or tobacco-related health factor, from the [place] facility where the Encounter took place. Date/Time Current Smoking Status Comment Facility Feb 16, 2022 10:00 AM VA-TOBACCO FORMER USER [facility] Tobacco Use History This section includes a history of the smoking, or tobacco- related health factors, that were collected on or before the date of the Encounter. The data comes from the [place] facility where the Encounter took place. Date/Time Smoking Status/Tobacco Comment Facility Use Feb 16, 2022 10:00 VA-TOBACCO QUIT 15 YRS [facility] CNT RL [facility]N AM OR MORE [place] [facility] Feb 04, 2021 11:00 VA-TOBACCO NEVER USED [facility] AM [place] [facility] Feb 04, 2021 11:00 VA-TOBACCO USE DECLINED VA CN TRL [facility] AM TO ANSWER [place] [facility] May 08, 2019 11:06 VA-TOBACCO FORMER USER [facility] [place] [facility] May 08, 2019 11:06 VA-TOBACCO QUIT 15 YRS VA CNT RL [facility] AM OR MORE [place] [facility] Oct 26, 2018 11:33 VA-TOBACCO NEVER USED [facility] [place] [facility] Oct 21, 2017 09:29 QUIT TOBACCO USE > 7 VA CNTRL 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, cigarettes [facility] Dec 06, 2015 09:59 QUIT TOBACCO USE IN PAST VA C NTRL WSTRN AM YEAR [facility] Dec 05, 2014 02:31 TOBACCO INPATIENT NO USE [facility] C NTRL [facility] PM 30 DAYS [place] [facility] Dec 05, 2014 01:37 LIFETIME NON-TOBACCO [facility] PM USER [facility] Nov 03, 2014 01:14 TOBACCO INPATIENT NO USE VA C NTRL [facility] PM 30 DAYS [place] [facility] Nov 02, 2014 10:36 TOBACCO INPATIENT NO USE VA C NTRL W[facility] AM 30 DAYS [place] [facility] Oct 06, 2003 03:47 QUIT TOBACCO USE > 7 VA CNTRL WSTRN AM YEARS AGO [facility] Advance Directives: All historical and current Section Date Range: From patient's date of to the date document was created. This section includes ALL of a patient's completed or amended [place] Advance and Rescinded Directives. The entries below indicate that a directive exists for the patient, but an actual copy is not included with this document. The data comes from all [place] facilities. Date Advance Directives Provider Source Sep 06, 2007 ADVANCE DIRECTIVE ROBERTO FONTENOT [place] [facility] [place] [facility] Encounter Notes: All associated encounter notes This section contains the clinical notes associated to the Encounter. Date/Time Encounter Note(s) Provider Source Mar 19, 2022 09:05 ADMINISTRATIVE NOTE: KEN HAYES [facility] TITLE: CCC: SCHEDULING [facility]IST[facility] ST[facility] TITLE: ADMINISTRATIVE NOTE DATE OF NOTE: MAR 19, 2022@09:05:51 ENTRY DATE: MAR 19, 2022@09:08:21 AUTHOR: KEN HAYES EXP COSIGNER: URGENCY: STATUS: COMPLETED Type of call: REFERRAL/CONSULT REQUEST. PCMM Provider Info: LOCAL - [facility] ([id number]) PACT: NO PACT 3 (Focus: Primary Care Only) Primary Care Provider: BALTAZAR SWANSON Metal Weigher: BETHANIE ANTOINE PHONE:[phone] Clinical Associate: AMAURY FALLON KAREN NE:[phone] Director Of Product Development: KATHY MENDOZA Clinical POC: Metal Weigher BETHANIE ANTOINE PHONE:[phone] Administrative POC: Director Of Product Development KATHY MENDOZA *PATIENT called in for OTILIA KENNEDY ([phone]) . Contact Caller Response: ADM CALL RESOLVED Caller Area: [place] The Patient called requesting a consult for: Comments: calling requesting Referral/Consult for Transportation to appointment March at 11:30am. Please contact paula n to discuss and setup Transportation Author: KEN HAYES Evaluation/Management Code: HC PRO PHONE CALL 5- 10 MIN ([phone]). Starting at: 03/19/2022 @ 9:05:51 AM Ending at: 03/19/2022 @ 9:07:19 AM Length: 1 minutes. Chief Complaint: Not applicable to call. Class Code: Other specified counseling. /tan/ KEN HAYES Signed: 03/19/2022 09:08 Receipt Acknowledged By: * AWAITING SIGNATURE * BETHANIE ANTOINE * AWAITING SIGNATURE * AMAURY FALLON
--- OUTSIDE RECORDS SUMMARY | 2022-09-09 17:29 | XMS_ITS | Encounter Summary ---
:1960 Author Organization Department [facility] rs Address [address] [place] [id number] Support Name Relationship Address Phone MR MRS NERI KENNEDY Unavailable [address] [place] [address] MR MRS NERI KENNEDY Unavailable [address] [place] [address] Insurance Providers: All historical and current Section [...] Number [employer] MEDICARE MCR Oct 21, [id number] TREVOR LEMUS PATIENT CARE ADVANTAGE (WNR) [phone] [facility] (WNR) MEDICAID MEDICAID [facility] Aug 23, [facility] [id number] [phone] [facility] [id number] [facility] PART Nov 21, PART A [id number] [phone] TREVOR KENNEDY PATIENT (WNR) (M) A 2002A 00 FFREY MEDICARE MEDICARE PART Nov 21, PART B [id number] [phone] TREVOR KENNEDY PATIENT (WNR) (M) B 2002A FFREY MEDICARE MEDICARE PART Nov 21, PART A [id number] TREVOR KENNEDY PATIENT (WNR) (M) A 2002A FFREY MEDICARE MEDICARE PART Nov 21, PART B [id number] TREVOR KENNEDY PATIENT (WNR) (M) B 2002 [id number] [id number] FFREY Selected Encounter This section includes the information on record at ME for the Encounter. Date/Time Encounter Type Encounter Description Reason Provider Source Mar 18, 2022 10:52 Outpatient Encounter TELEPHONE TRIAGE AM IHE Encounter Template Text not used by ME Plan of Treatment: Future Appointments (+ 6 months) and Future Tests (+/- 45 days) The Plan of Treatment section includes future care activities for the patient from all [facility] This section includes future appointments and future orders which are active, pending orscheduled.Future Appointments This section includes appointments that were scheduled to occur 6 months from the date of the Encounter, up to a maximum of 20 appointments. The data comes from all [facility]. Appointment Date/Time Appointment Type Appointment Facili ty Name Mar 23, 2022 11:30 AM [facility] Mar [facility], [facility] [facility] Apr 09, [facility] 09:[address] [facility] [place] [facility] May 18, 2022 08:[address] [facility] [place] [facility] Aug 31, 2022 10:00 AM AMBULATORY - [facility] Sep 18, 2022 10:00 AM AMBULATORY [facility] Active, Pending, and Scheduled Orders This section includes a listing of several types of active, pending, and scheduled orders, including clinic medications orders, diagnostic test orders, procedure orders and consult orders; where the start date of the order is 45 days before the date of the Encounter or 45 days after the date of the Encounter. The data comes from all [facility]. Test Date/Time Test Type Test Details Facility Name Mar 23, 2022 12:00 AM Laboratory - Chemistry URINALYSIS URINE SP Order Mar 23, 2022 12:00 AM Laboratory - Chemistry MICROALBUMIN CREATI NINE Order RATIO PANEL URINE (RANDOM) SP Lab Results: +/- 30 days of the encounter This section includes the Chemistry and Hematology Lab Results on record with ME for the patient. Radiology Reports and Pathology Reports are provided separately, in subsequent sections.Lab Results This section contains the Chemistry/Hematology Results that were resulted 30 days before or 30 daysafter the date of the Encounter. Date/Time Source Result Type Result - Unit Interpretation Reference Range Comment Mar 23, [facility] W[facility] VITAMIN D Specimen Type: SERUM 2021 [...] 2011;96(7):1911-30. For additional information, please refer to http://education.OwnLocal/faq/WZJ870 (This link is being p rovided for info rmational/ educational purposes only.) This test was developed and its analytical performance characteristics have been determined by [employer] [place], [place]. I t has not been c leared or approved by the U.S. Food and Drug Administration. This assay has been validated pursuant to the CLIA regulations and is used for clinical purposes. This test was developed and its analytical performance characteristics have been determined by [employer] [place], [place]. It has not been cleared or approved by the U.S. Food and Drug Administration. This assay has been v alidated pursuant to the CLIA regulations and is used for clinical purposes. Test Performed by [facility], [employer] [facility], [address] [place], [place] Eric Murguia M.D., Ph.D., Director of Laboratories , [place] [id number] TEST PERFORMED AT: , Ordering Provid er: BALTAZAR SWANSON Report Released Date/Time: Feb 04, 2022 11:15 AM Reporting Lab: [facility] [address] [facility] [address] Performing Lab: [facility] [address] [place] [address] VITAMIN D, 25-OH, TOTAL 38 30-100 VITAMIN D, 25-OH, D3 38 VITAMIN D, 25-OH, D2 <4 Mar 23, 2022 [facility] & INR (COUMADIN) Specimen Ty pe: PLASMA 12:22 PM [facility] No comment enter ed. Ordering Provid er: BALTAZAR SWANSON Report Released Date/Time: Feb 04, 2022 11:15 AM Reporting Lab: [facility] [address] [facility] [address] Performing Lab: [facility] [address] [facility] [address] INR 1.3 PROTIME 14.7 H 10.0-13.1 Mar 23, 2022 12:22 [facility] MAGNESIUM Specimen Typ e: SERUM PM [facility] No comment enter ed. Ordering Provid er: BALTAZAR SWANSON Report Released Date/Time: Feb 04, 2022 11:15 AM Reporting [facility] [address] [facility] [address] Performing Lab: [facility] [address] [facility] [address] MAGNESIUM 1.6 1.6-2.6 Mar 23, 2022 [facility] HEMOGLOBIN A1C Specimen Type: BLOOD 12:22 PM [facility] PANEL Comment: Values obtained from A1C [...] AM Reporting Lab: [facility] [place] [facility] [address] [facility] [address] Performing Lab: [facility] [place] [facility] [address] [facility] [address] HEMOGLOBIN A1C 8.1 H 4.0-5.6 Mar 23, 2022 12:22 [facility] LIVER FUNCTION Specimen Typ e: SERUM PM [place] [facility] No comment enter ed. Ordering Provid er: BALTAZAR SWANSON Report Released Date/Time: Feb 04, 2022 11:15 AM Reporting Lab: [facility] [place] [facility] [address] [facility] [address] Performing Lab: [facility] [place] [facility] [address] [facility] [address] PROTEIN,TOTAL 7.4 6.0-8.3 ALBUMIN 4.1 3.5-5.0 ALKALINE PHOSPHATASE 80 40-150 AST 20 5-34 ALT 26 <6-55 BILIRUBIN, TOTAL 0.5 0.2-1.2 Mar 23, 2022 12:22 PM [facility] [place] CBC Specimen Type: BLOOD HCS No comment enter ed. Ordering Provid er: BALTAZAR SWANSON Report Released Date/Time: Feb 04, 2022 11:15 AM Reporting Lab: [facility] [place] [facility] [address] [facility] [address] Performing Lab: [facility] [place] [facility] [address] [facility] [address] WBC 9.13 4.50-11.00 RBC 4.34 4.23-5.66 HGB 14.1 12.8-17 HCT 40.4 39.2-50.4 MCV 93.1 82-99 MCHC 34.9 30.8-35.1 PLT 188 140-360 RDW-CV 11.6 L 12.0-16.0 MCH 32.5 26.2-32.6 Mar 23, 2022 12:22 PM [facility] [place] TSH Specimen Type: SERUM H[facility] No comment enter ed. Ordering Provid er: BALTAZAR SWANSON Report Released Date/Time: Feb 04, 2022 11:15 AM Reporting Lab: [facility] [place] [facility] [address] [facility] [address] Performing Lab: [facility] [place] [facility] [address] [facility] [address] TSH 1.41 0.35-5.00 Mar 23, 2022 [facility] BASIC METABOLIC Specimen Type: SERUM 12:22 PM [place] [facility] PANEL (fasting) No comment enter ed. Ordering Provid er: BALTAZAR SWANSON Report Released Date/Time: Feb 04, 2022 11:15 AM Reporting Lab: [facility] [place] [facility] [address] [facility] [address] Performing Lab: [facility] [place] [facility] [address] [facility] [address] UREA NITROGEN 23 7-25 GLUCOSE 211 H 65-100 SODIUM 135 135-145 POTASSIUM 4.9 3.5-5.0 CHLORIDE 100 100-110 CO2 25 20-30 CREATININE, Serum 1.14 0.50-1.40 eGFR(CKD-EPI 2020) 72 >60 Social History: Smoking Status (Most current) and Tobacco Use (All prior to encounter date) This section includes the most current, and the historical, smoking and tobacco-related health factors from the ME facility where the Encounter took place.Current Smoking Status This section includes the most current smoking, or tobacco-related health factor, from the ME facility where the Encounter took place. Date/Time Current Smoking Status Comment Facility Feb 16, 2022 10:00 AM VA-TOBACCO FORMER USER ME [facility] [place] [facility] Tobacco Use History This section includes a history of the smoking, or tobacco- related health factors, that were collected on or before the date of the Encounter. The data comes from the ME facility where the Encounter took place. Date/Time Smoking Status/Tobacco Comment Facility Use Feb 16, 2022 10:00 VA-TOBACCO QUIT 15 YRS [facility] AM OR MORE [place] [facility] Feb 04, 2021 11:00 VA-TOBACCO NEVER USED [facility] Feb 04, 2021 11:00 VA-TOBACCO USE DECLINED [facility] AM TO [facility]SWER [facility] May 08, 2019 11:06 VA-TOBACCO FORMER USER [facility] [place] [facility] May 08, 2019 11:06 VA-TOBACCO QUIT 15 YRS [facility] Oct 26, 2018 11:33 VA-TOBACCO NEVER USED [facility] [place] [facility] Oct 21, 2017 09:29 QUIT TOBACCO USE > 7 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 Dec 06, 2015 09:59 QUIT TOBACCO USE IN PAST [facility] C [facility] Dec 05, 2014 02:31 TOBACCO INPATIENT NO USE [facility] PM 30 DAYS [facility] Dec 05, 2014 01:37 LIFETIME NON-TOBACCO [facility] Nov 03, 2014 01:14 TOBACCO INPATIENT NO USE [facility] PM 30 [facility]YS [facility] Nov 02, 2014 10:36 TOBACCO INPATIENT NO USE [facility] AM 30 [facility]YS [facility] Oct 06, 2003 03:47 QUIT TOBACCO USE > 7 VA CN[facility] WSTRN AM YEARS AGO [facility] Advance Directives: All historical and current Section Date Range: From patient's date of to the date document was created. This section includes ALL of a patient's completed or amended ME Advance and Rescinded Directives. The entries below indicate that a directive exists for the patient, but an actual copy is not included with this document. The data comes from all ME facilities. Date Advance Directives Provider Source Sep 06, 2007 ADVANCE DIRECTIVE ROBERTO FONTENOT [facility] Encounter Notes: All associated encounter notes This section contains the clinical notes associated to the Encounter. Date/Time Encounter Note(s) Provider Source Mar 18, 2022 10:52 AM ADMINISTRATIVE NOTE: SRIDHAR TROY ME C NTRL WSTRN LOCAL TITLE: CCC: SCHEDULING ADMINISTRATION [facility] STANDARD TITLE: ADMINISTRATIVE NOTE DATE OF NOTE: MAR 18, 2022@10:52:27 ENTRY DATE: MAR 18, 2022@10:54:26 AUTHOR: SRIDHAR TROY COSIGNER: URGENCY: STATUS: COMPLETED CCC: SCHEDULING ADMINISTRATION Has ADDENDA Type of call: ADMINISTRATIVE. PCMM Provider Info: [facility] (631) PACT: NO PACT 3 (Focus: Primary Care Only) Primary Care Provider: BALTAZAR SWANSON Family And Consumer Education Teacher: BETHANIE ANTOINE PHONE:[phone] Clinical Associate: AMAURY FALLON KAREN NE:[phone] Counter Molder: KATHY MENDOZA Clinical POC: Family And Consumer Education Teacher BETHANIE ANTOINE PHONE:[phone] Administrative POC: Counter Molder KATHY MENDOZA *PATIENT called in for MARCIAOTILIA ALONSO ([id number]) . The following identifiers were used to verify th is patient: . SSN. Contact Caller Response: ADM CALL RESOLVED Caller Area: [place] Comments: [place] returns a call from his PACT RN and requests a call back anytime before 2:00. PHone# verified. Author: SRIDHAR TROY Evaluation/Management Code: HC PRO PHONE CALL 5- 10 MIN ([phone]). Starting at: 03/18/2022 @ 10:52:27 AM Ending at: 03/18/2022 @ 10:53:37 AM Length: 1 minutes. Chief Complaint: Not applicable to call. Class Code: Other specified counseling. 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
--- OUTSIDE RECORDS SUMMARY | 2022-09-09 17:30 | XMS_ITS | Encounter Summary ---
:1960 Author Organization Department [facility] rs Address [address] [place] [id number] Support Name Relationship Address Phone MR MRS NERI KENNEDY Unavailable [address] [place] [address] MR MRS NERI KENNEDY Unavailable [address] [phone] [place] [address] Insurance Providers: All historical and current Section [...] Number Crowell [employer] MEDICARE MCR Oct 21, [id number] [phone] RONNY TREVOR HERNANDEZ PATIENT TH CARE ADVANTAGE (WNR) [phone] [facility] (WNR) MEDICAID MEDICAID [facility] Aug 23, [facility] [id number] [phone] TREVOR TRINH PATIENT [facility] 2014 D [id number] FFREY [facility] MED[facility] PART Nov 21, PART A [id number] [phone] TREVOR KENNEDY PATIENT (WNR) (M) A 2002A 00 FFREY MEDICARE MEDICARE PART Nov 21, PART B [id number] [phone] TREVOR KENNEDY PATIENT (WNR) (M) B [facility]A [facility] Nov 21, PART A [id number] TREVOR KENNEDY PATIENT (WNR) (M) A 2002A FFREY MEDICARE MEDICARE PART Nov 21, PART B [id number] [phone] TREVOR KENNEDY PATIENT (WNR) (M) B 2002 27A 4 FFREY Selected Encounter This section includes the information on record at [place] for the Encounter. Date/Time Encounter Type Encounter Description Reason Provider Source Mar 19, 2022 12:00 Outpatient Encounter EVENT (HISTORICAL) AM IHE Encounter Template Text not used by [place] Plan of Treatment: Future Appointments (+ 6 months) and Future Tests (+/- 45 days) The Plan of Treatment section includes future care activities for the patient from all [place] [facility] This section includes future appointments and future orders which are active, pending orscheduled.Future Appointments This section includes appointments that were scheduled to occur 6 months from the date of the Encounter, up to a maximum of 20 appointments. The data comes from all [facility]. Appointment Date/Time Appointment Type Appointment Facili ty Name Mar 23, 2022 11:30 AM [facility]UL[facility]ORY [facility] Mar 25, 2022 08:00 [facility] Apr 09, 2022 09:00 AM [facility] [place] [facility] May 18, 2022 08:30 AM [facility] [place] [facility] Aug 31, 2022 10:00 AM AMBULATORY - REHAB [facility] [place] [place] [facility] Sep 18, 2022 10:00 AM [facility] Active, Pending, and Scheduled Orders This section includes a listing of several types of active, pending, and scheduled orders, including clinic medications orders, diagnostic test orders, procedure orders and consult orders; where the start date of the order is 45 days before the date of the Encounter or 45 days after the date of the Encounter. The data comes from all [facility]. Test Date/Time Test Type Test Details Facility Name Mar 23, 2022 12:00 AM Laboratory - Chemistry URINALYSIS URINE SP Order Mar 23, 2022 12:00 AM Laboratory - Chemistry MICROALBUMIN CREATI NINE Order RATIO PANEL URINE (RANDOM) SP Lab Results: +/- 30 days of the encounter This section includes the Chemistry and Hematology Lab Results on record with [place] for the patient. Radiology Reports and Pathology Reports are provided separately, in subsequent sections.Lab Results This section contains the Chemistry/Hematology Results that were resulted 30 days before or 30 daysafter the date of the Encounter. Date/Time Source Result Type Result - Unit Interpretation Reference Range Comment Mar 23, [facility] WSTRN VITAMIN D Specimen Type: SERUM [...] 2011;96(7):1911-30. For additional information, please refer to http://education.Offerboxx/faq/EFM670 (This link is being p rovided for info rmational/ educational purposes only.) This test was developed and its analytical performance characteristics have been determined by [employer] [place], [place]. I t has not been c leared or approved by the U.S. Food and Drug Administration. This assay has been validated pursuant to the CLIA regulations and is used for clinical purposes. This test was developed and its analytical performance characteristics have been determined by [employer] [place], [place]. It has not been cleared or approved by the U.S. Food and Drug Administration. This assay has been v alidated pursuant to the CLIA regulations and is used for clinical purposes. Test Performed by [employer] [place], [facility], [address] [place], [place] Eric Murguia M.D., Ph.D., Director of Laboratories , [place] [id number] TEST PERFORMED AT: , Ordering Provid er: BALTAZAR SWANSON Report Released Date/Time: Feb 04, 2022 11:15 AM Reporting Lab: [facility] [address] [address] Performing Lab: [facility] [address] [place], [address] [place] [address] VITAMIN D, 25-OH, TOTAL 38 30-100 VITAMIN D, 25-OH, D3 38 VITAMIN D, 25-OH, D2 <4 Mar 23, 2022 [facility] HEMOGLOBIN A1C Specimen Type: BLOOD 12:22 PM [facility] PANEL Comment: Values obtained from A1C measurements can vary. For typical A1C assays, a reported value of 7.0 could actually be between 6.72 and 7.28 if measured by a reference method. A reported value of 9 .0 could actuall y be between 8.73 and 9.27. Ref: http://www.ngsp.org/CAPdata.asp Ordering Provid er: BALTAZAR SWANSON Report Released Date/Time: Feb 04, 2022 11:15 AM Reporting Lab: [facility] [address] [address] Performing Lab: [facility] [address] [address] HEMOGLOBIN A1C 8.1 H 4.0-5.6 Mar 23, 2022 [facility] PT & INR (COUMADIN) Specimen Ty pe: PLASMA 12:22 PM [facility] No comment enter ed. Ordering Provid er: BALTAZAR SWANSON Report Released Date/Time: Feb 04, 2022 11:15 AM Reporting Lab: [facility] [address] [address] Performing Lab: [facility] [address] [address] INR 1.3 PROTIME 14.7 H 10.0-13.1 Mar 23, 2022 12:22 [facility] MAGNESIUM Specimen Typ e: SERUM PM [place] [facility] No comment enter ed. Ordering Provid er: BALTAZAR SWANSON Report Released Date/Time: Feb 04, 2022 11:15 AM Reporting Lab: [facility] [place] [facility] [address] [address] Performing Lab: [facility] [place] [facility] [address] [address] MAGNESIUM 1.6 1.6-2.6 Mar 23, 2022 12:22 [facility] LIVER FUNCTION Specimen Typ e: SERUM PM [place] [facility] No comment enter ed. Ordering Provid er: BALTAZAR SWANSON Report Released Date/Time: Feb 04, 2022 11:15 AM Reporting Lab: [facility] [place] [facility] [address] [address] Performing Lab: [facility] [place] [facility] [address] [address] PROTEIN,TOTAL 7.4 6.0-8.3 ALBUMIN 4.1 3.5-5.0 ALKALINE PHOSPHATASE 80 40-150 AST 20 5-34 ALT 26 <6-55 BILIRUBIN, TOTAL 0.5 0.2-1.2 Mar 23, 2022 12:22 PM [facility] [place] TSH Specimen Type: SERUM HCS No comment enter ed. Ordering Provid er: BALTAZAR SWANSON Report Released Date/Time: Feb 04, 2022 11:15 AM Reporting Lab: [facility] [place] [facility] [address] [address] Performing Lab: [facility] [place] [facility] [address] [address] TSH 1.41 0.35-5.00 Mar 23, 2022 12:22 PM [facility] [place] CBC Specimen Type: BLOOD HCS No comment enter ed. Ordering Provid er: BALTAZAR SWANSON Report Released Date/Time: Feb 04, 2022 11:15 AM Reporting Lab: [facility] [place] [facility] [address] [address] Performing Lab: [facility] [place] [facility] [address] [address] WBC 9.13 4.50-11.00 RBC 4.34 4.23-5.66 HGB 14.1 12.8-17 HCT 40.4 39.2-50.4 MCV 93.1 82-99 MCHC 34.9 30.8-35.1 PLT 188 140-360 RDW-CV 11.6 L 12.0-16.0 MCH 32.5 26.2-32.6 Mar 23, 2022 [facility] BASIC METABOLIC Specimen Type: SERUM 12:22 PM [facility] PANEL (fasting) No comment enter ed. Ordering Provid er: BALTAZAR SWANSON Report Released Date/Time: Feb 04, 2022 11:15 AM Reporting Lab: [facility] [place] [facility] [address] [address] Performing Lab: [facility] [address] [address] UREA NITROGEN 23 7-25 GLUCOSE 211 H [...] 16, 2022 10:00 AM VA-TOBACCO FORMER USER [facility] [place] [facility] Tobacco Use History This section includes a history of the smoking, or tobacco- related health factors, that were collected on or before the date of the Encounter. The data comes from the [place] facility where the Encounter took place. Date/Time Smoking Status/Tobacco Comment Facility Use Feb 16, 2022 10:00 VA-TOBACCO QUIT 15 YRS VA CNT RL [facility]N AM OR MORE [place] [facility] Feb 04, 2021 11:00 VA-TOBACCO NEVER USED [facility] CNTR L [facility] AM [place] [facility] Feb 04, 2021 11:00 VA-TOBACCO USE DECLINED VA CN TRL WSTRN AM TO ANSWER [facility] May 08, 2019 11:06 VA-TOBACCO FORMER USER VA CNT RL [facility]N AM [facility] May 08, 2019 11:06 VA-TOBACCO QUIT 15 YRS VA CNT RL [facility] AM OR MORE [place] [facility] Oct 26, 2018 11:33 VA-TOBACCO NEVER USED [facility] CNTR L [facility] AM [place] [facility] Oct 21, 2017 09:29 QUIT TOBACCO USE > 7 VA CNTRL 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, cigarettes [facility] Dec 06, 2015 09:59 QUIT TOBACCO USE IN PAST VA C NTRL WSTRN AM YEAR [facility] Dec 05, 2014 02:31 TOBACCO INPATIENT NO USE VA C NTRL [facility] PM 30 DAYS [place] [facility] Dec 05, 2014 01:37 LIFETIME NON-TOBACCO VA CNTRL WSTRN PM USER [facility] Nov 03, 2014 01:14 TOBACCO INPATIENT NO USE VA C NTRL [place] PM 30 DAYS [place] [facility] Nov 02, 2014 10:36 TOBACCO INPATIENT NO USE VA C NTRL W[place]N AM 30 DAYS [place] [facility] Oct 06, 2003 03:47 QUIT TOBACCO USE > 7 VA CNTRL WSTRN AM YEARS AGO [facility] Advance Directives: All historical and current [...] DIRECTIVE ROBERTO FONTENOT [place] CNTRL WSTR N [facility]
--- OUTSIDE RECORDS SUMMARY | 2022-09-09 17:30 | XMS_ITS | Encounter Summary ---
:1960 Author Organization Department [facility] rs Address [address] [place] [address] Support Name Relationship Address Phone MR MRS NERI KENNEDY Unavailable [address] [phone] [place] [address] MR MRS NERI KENNEDY Unavailable [address] [place] [address] Insurance Providers: All historical and current Section [...] Number Crowell [employer] MEDICARE MCR Oct 21, [id number] [phone] RONNY TREVOR HERNANDEZ PATIENT CARE ADVANTAGE (WNR) [id number] [facility] (WNR) MEDICAID MEDICAID [facility] Aug 23, [facility] [id number] [phone] TRE[facility]OR TRINH [facility] D [id number] FFREY [facility] MEDICARE PART Nov 21, PART A [id number] [phone] TREVOR KENNEDY PATIENT (WNR) (M) A 2002A 00 FFREY MEDICARE MEDICARE PART Nov 21, PART B [id number] [phone] TREVOR KENNEDY PATIENT (WNR) (M) B 2002A [facility] Nov 21, PART A [id number] TREVOR KENNEDY PATIENT (WNR) (M) A 2002A FFREY MEDICARE MEDICARE PART Nov 21, PART B [id number] TREVOR KENNEDY PATIENT (WNR) (M) B 2002 27A 4 FFREY Selected Encounter This section includes the information on record at [place] for the Encounter. Date/Time Encounter Type Encounter Description Reason Provider Source Mar 19, 2022 09:14 Outpatient Encounter PRIMARY CARE/MEDICINE AM IHE Encounter Template Text not used by [place] Plan of Treatment: Future Appointments (+ 6 months) and Future Tests (+/- 45 days) The Plan of Treatment section includes future care activities for the patient from all [place] [facility]. This section includes future appointments and future orders which are active, pending orscheduled.Future Appointments This section includes appointments that were scheduled to occur 6 months from the date of the Encounter, up to a maximum of 20 appointments. The data comes from all [facility]. Appointment Date/Time Appointment Type Appointment Facili ty Name Mar 23, 2022 11:30 AM [facility] Mar 25, 2022 08:00 AM [facility] W[facility] M [facility] Apr 09, 2022 09:00 AM AMBULATORY [facility] [place] [facility] May 18, 2022 08:30 AM [facility] MEDICINE [facility] [place] [facility] Aug 31, 2022 10:00 AM AMBULATORY - REHAB MEDICINE [facility] W [place] [facility] Sep 18, 2022 10:00 AM [facility]ATORY [facility] Active, Pending, and Scheduled Orders This section includes a listing of several types of active, pending, and scheduled orders, including clinic medications orders, diagnostic test orders, procedure orders and consult orders; where the start date of the order is 45 days before the date of the Encounter or 45 days after the date of the Encounter. The data comes from all [facility]. Test Date/Time Test Type Test Details Facility Name Mar 23, 2022 12:00 AM Laboratory - Chemistry URINALYSIS URINE SP Order Mar 23, 2022 12:00 AM Laboratory - Chemistry MICROALBUMIN CREATI NINE Order RATIO PANEL URINE (RANDOM) SP Lab Results: +/- 30 days of the encounter This section includes the Chemistry and Hematology Lab Results on record with [place] for the patient. Radiology Reports and Pathology [...] 2011;96(7):1911-30. For additional information, please refer to http://education.[employer]/faq/WLQ858 (This link is being p rovided for info rmational/ educational purposes only.) This test was developed and its analytical performance characteristics have been determined by [employer] [place], [place]. I t has not been c leared or approved by the U.S. Food and Drug Administration. This assay has been validated pursuant to the CLIA regulations and is used for clinical purposes. This test was developed and its analytical performance characteristics have been determined by [facility] [place], [place]. It has not been cleared or approved by the U.S. Food and Drug Administration. This assay has been v alidated pursuant to the CLIA regulations and is used for clinical purposes. Test Performed by [facility] [place], [facility], [address] [place], [place] Eric Murguia M.D., Ph.D., Director of Laboratories , [place] [id number] TEST PERFORMED AT: , Ordering Provid er: BALTAZAR SWANSON Report Released Date/Time: Feb 04, 2022 11:15 AM Reporting Lab: [facility] [address] [address] Performing Lab: [facility] [address], [address] [place] [address] VITAMIN D, 25-OH, TOTAL 38 30-100 VITAMIN D, 25-OH, D3 38 VITAMIN D, 25-OH, D2 <4 Mar 23, 2022 [facility] PT & INR (COUMADIN) Specimen Ty pe: PLASMA 12:22 PM [facility] No comment enter ed. Ordering Provid er: BALTAZAR SWANSON Report Released Date/Time: Feb 04, 2022 11:15 AM Reporting Lab: [facility] [address] [facility] [address] Performing Lab: [facility] [address] [facility] [address] INR 1.3 PROTIME 14.7 H 10.0-13.1 Mar 23, 2022 [facility] HEMOGLOBIN A1C Specimen Type: BLOOD 12:22 PM [facility] PANEL Comment: Values obtained from A1C measurements can vary. For typical A1C assays, a reported value of 7.0 could actually be between 6.72 and 7.28 if measured by a reference method. A reported value of 9 .0 could actuall y be between 8.73 and 9.27. Ref: http://www.ngsp.org/CAPdata.asp Ordering Provid er: BALTAZAR SWANSON Report Released Date/Time: Feb 04, 2022 11:15 AM Reporting Lab: [facility] [address] [facility] [address] Performing Lab: [facility] [address] [facility] [address] HEMOGLOBIN A1C 8.1 H 4.0-5.6 Mar 23, 2022 12:22 [facility] MAGNESIUM Specimen Typ e: SERUM PM [place] [facility] No comment enter ed. Ordering Provid er: BALTAZAR SWANSON Report Released Date/Time: Feb 04, 2022 11:15 AM Reporting Lab: [facility] [place] [facility] [address] [facility] [address] Performing Lab: [facility] [place] [facility] [address] [facility] [address] MAGNESIUM 1.6 1.6-2.6 Mar 23, 2022 12:22 PM [facility] [place] CBC Specimen Type: BLOOD HCS No comment enter ed. Ordering Provid er: BALTAZAR SWANSON Report Released Date/Time: Feb 04, 2022 11:15 AM Reporting Lab: [facility] [place] [facility] [address] [facility] [address] Performing Lab: [facility] [place] [facility] [address] [facility] [address] WBC 9.13 4.50-11.00 RBC 4.34 4.23-5.66 HGB [...] Lab: [facility] [place] [facility] [address] [facility] [address] Performing Lab: [facility] [place] [facility] [address] [facility] [address] TSH 1.41 0.35-5.00 Mar 23, 2022 12:22 [facility] LIVER FUNCTION Specimen Typ e: SERUM PM [place] [facility] No comment enter ed. Ordering Provid er: BALTAZAR SWANSON Report Released Date/Time: Feb 04, 2022 11:15 AM Reporting Lab: [facility] [place] [facility] [address] [facility] [address] Performing Lab: [facility] [place] [facility] [address] [facility] [address] PROTEIN,TOTAL 7.4 6.0-8.3 ALBUMIN 4.1 3.5-5.0 ALKALINE PHOSPHATASE 80 40-150 AST 20 5-34 ALT 26 <6-55 BILIRUBIN, TOTAL 0.5 0.2-1.2 Mar 23, 2022 [facility] BASIC METABOLIC Specimen Type: SERUM 12:22 PM [place] [facility] PANEL (fasting) No comment enter ed. Ordering Provid er: BALTAZAR SWANSON Report Released Date/Time: Feb 04, 2022 11:15 AM Reporting Lab: [facility] [place] [address] [address] Performing Lab: [facility] [place] [address] [address] UREA NITROGEN 23 7-25 GLUCOSE 211 H 65-100 SODIUM 135 135-145 POTASSIUM 4.9 3.5-5.0 CHLORIDE 100 100-110 CO2 25 20-30 CREATININE, Serum 1.14 0.50-1.40 eGFR(CKD-EPI 2020) 72 >60 Social History: Smoking Status (Most current) and Tobacco Use (All prior to encounter date) This section includes the most current, and the historical, smoking and tobacco-related health factors from the [place] facility where the Encounter took place.Current Smoking Status This section includes the most current smoking, or tobacco-related health factor, from the [place] facility where the Encounter took place. Date/Time Current Smoking Status Comment Facility Feb 16, 2022 10:00 AM VA-TOBACCO FORMER USER [facility] [place] [facility] Tobacco Use History This section includes a history of the smoking, or tobacco- related health factors, that were collected on or before the date of the Encounter. The data comes from the [place] facility where the Encounter took place. Date/Time Smoking Status/Tobacco Comment Facility Use Feb 16, 2022 10:00 VA-TOBACCO QUIT 15 YRS VA CNT RL WSTRN AM OR MORE [place] [facility] Feb 04, 2021 11:00 VA-TOBACCO NEVER USED VA CNTR L [place] AM [place] [facility] Feb 04, 2021 11:00 VA-TOBACCO USE DECLINED VA CN TRL WSTRN AM TO ANSWER [place] [facility] May 08, 2019 11:06 VA-TOBACCO FORMER USER VA CNT RL [place]N AM [place] [facility] May 08, 2019 11:06 VA-TOBACCO QUIT 15 YRS VA CNT RL WSTRN AM OR MORE [place] [facility] Oct 26, 2018 11:33 VA-TOBACCO NEVER USED [facility] CNTR L [facility] [facility] Oct 21, 2017 09:29 QUIT TOBACCO USE > 7 VA CNTRL 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, cigarettes [facility] Dec 06, 2015 09:59 QUIT TOBACCO USE IN PAST VA C NTRL WSTRN AM YEAR [facility] Dec 05, 2014 02:31 TOBACCO INPATIENT NO USE VA C NTRL [facility] PM 30 DAYS [place] [facility] Dec 05, 2014 01:37 LIFETIME NON-TOBACCO VA CN[facility]L WSTRN PM [facility]ER [facility] Nov 03, 2014 01:14 TOBACCO INPATIENT NO USE VA C NTRL [place] PM 30 DAYS [place] [facility] Nov 02, 2014 10:36 TOBACCO INPATIENT NO USE VA C NTRL W[facility]N AM 30 DAYS [place] [facility] Oct 06, 2003 03:47 QUIT TOBACCO USE > 7 VA CNTRL WSTRN AM YEARS AGO [facility] Advance Directives: All historical and current Section Date Range: From patient's date of to the date document was created. This section includes ALL of a patient's completed or amended [place] Advance and Rescinded Directives. The entries below indicate that a directive exists for the patient, but an actual copy is not included with this document. The data comes from all [place] facilities. Date Advance Directives Provider Source Sep 06, 2007 ADVANCE DIRECTIVE ROBERTO FONTENOT [place] CNTRL [place] [facility] Encounter Notes: All associated encounter notes This section contains the clinical notes associated to the Encounter. Date/Time Encounter Note(s) Provider Source Mar 19, 2022 09:16 ADMINISTRATIVE NOTE: BETHANIE ANTOINE [place] CNT RL WSTRN AM LOCAL TITLE: BENEFICIARY TRAVEL (BT) [facility] STANDARD TITLE: ADMINISTRATIVE NOTE DATE OF NOTE: MAR 19, 2022@09:16 ENTRY DATE: MAR 19, 2022@09:16:47 AUTHOR: BETHANIE ANTOINE EXP COSIGNER: URGENCY: STATUS: COMPLETED BENEFICIARY TRAVEL SPECIAL MODE TRANSPORTATION: I have informed the Craig that, requests with insufficient evidence of functional need, containing information that ap pears inconsistent with clinical evidence or appears intentionally exag gerated to obtain eligibility will be referred for further review or returned for additional information or clarification. Point of Contact's E-mail: [email or web address] Phone/Pager/Extension: [phone] MEDICAL JUSTIFICATION Craig is not able to transfer into a private vehicle or medically appropriate common carrier, or requires additio nal assistance as outlined below. The clinical condition requiring the use of VA Special Mode transportation to be safely transported are as follows: Lower limb amputation precluding private transp ortation with assistance This request is not for an inter-facility trans rashmi WHEELCHAIR VAN/AMBULETTE (Canine Service Instructor Trainer Only; NO Medic al Attendant; Non-Emergent): Wheelchair type: Power Chair Date travel is to commence: Mar supervisor record press time (if needed): Estimated time frame will require trans portation: 1 Year To and from all authorized VA and Non-VA care Frequency: Round Trip /es/ BETHANIE ANTOINE, RN REGISTERED NURSE Signed: 03/19/2022 09:20
--- OUTSIDE RECORDS SUMMARY | 2022-09-09 17:32 | XMS_ITS | Encounter Summary ---
:1960 Author Organization Department [facility] rs Address [address] [place] [address] Support Name Relationship Address Phone MR MRS NERI KENNEDY Unavailable [address] [place] [address] MR MRS NERI KENNEDY Unavailable [address] [place] [address] Insurance Providers: All historical and current Section [...] Number Crowell [employer] MEDICARE MCR Oct 21, [id number] [phone] RONNY TREVOR HERNANDEZ PATIENT TH CARE ADVANTAGE (WNR) [id number] [facility] (WNR) MEDICAID MEDICAID [facility] Aug 23, [facility] [id number] [phone] TREVOR TRINH PATIENT EASELECT MEDICAL [facility] 2014 D [id number] [facility] MED[facility] PART Nov 21, PART A [id number] [phone] TREVOR KENNEDY PATIENT (WNR) (M) A 2002A 00 FFREY MEDICARE MEDICARE PART Nov 21, PART B [id number] [phone] TREVOR KENNEDY PATIENT (WNR) (M) B 2002A 00 [facility] Nov 21, PART A [id number] [phone] TREVOR KENNEDY PATIENT (WNR) (M) A 2002A FFREY MEDICARE MEDICARE PART Nov 21, PART B [id number] [phone] TREVOR KENNEDY PATIENT (WNR) (M) B 2002 27A 4 FFREY Selected Encounter This section includes the information on record at [place] for the Encounter. Date/Time Encounter Type Encounter Description Reason Provider Source Feb 19, 2022 12:00 Outpatient Encounter EVENT (HISTORICAL) AM IHE Encounter Template Text not used by [place] Plan of Treatment: Future Appointments (+ 6 months) and Future Tests (+/- 45 days) The Plan of Treatment section includes future care activities for the patient from all [place] [facility] This section includes future appointments and future orders which are active, pending orscheduled.Future Appointments This section includes appointments that were scheduled to occur 6 months from the date of the Encounter, up to a maximum of 20 appointments. The data comes from all [facility]. Appointment Date/Time Appointment Type Appointment Facili ty Name Mar 23, 2022 11:30 [facility] Mar 25, 2022 08:00 [facility] Apr 09, 2022 09:00 [facility] May 18, 2022 08:30 AM [facility] Active, Pending, and Scheduled Orders This section includes a listing of several types of active, pending, and scheduled orders, including clinic medications orders, diagnostic test orders, procedure orders and consult orders; where the start date of the order is 45 days before the date of the Encounter or 45 days after the date of the Encounter. The data comes from all [facility]. Test Date/Time Test Type Test Details Facility Name Mar 23, 2022 12:00 AM Laboratory - Chemistry URINALYSIS URINE SP Order Mar 23, 2022 12:00 AM Laboratory - Chemistry MICROALBUMIN CREATI NINE Order RATIO PANEL URINE (RANDOM) SP Immunizations: All administered on the encounter date This section contains immunizations associated to the Encounter. Immunization Series Date Issued Reaction Comments COVID-19 ([employer] MRNA, LNP-S, PF, 30 MCG/0.3 3 Feb 19, 2022 ML DOSE Social History: Smoking Status (Most current) and Tobacco Use (All prior to encounter date) This section includes the most current, and the historical, smoking and tobacco-related health factors from the [place] facility where the Encounter took place.Current Smoking Status This section includes the most current smoking, or tobacco-related health factor, from the [place] facility where the Encounter took place. Date/Time Current Smoking Status Comment Facility Feb 16, 2022 10:00 AM VA-TOBACCO [facility]ER [facility] Tobacco Use History This section includes a history of the smoking, or tobacco- related health factors, that were collected on or before the date of the Encounter. The data comes from the [place] facility where the Encounter took place. Date/Time Smoking Status/Tobacco Comment Facility Use Feb 16, 2022 10:00 VA-TOBACCO QUIT 15 YRS VA CNT RL [facility]N AM OR MORE [place] [facility] Feb 04, 2021 11:00 VA-TOBACCO NEVER USED [facility] CNTR L [facility] AM [place] [facility] Feb 04, 2021 11:00 VA-TOBACCO USE DECLINED [facility] CN [facility]RL 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 Dec 06, 2015 09:59 QUIT TOBACCO USE IN PAST VA C NTRL WSTRN AM YEAR [place] [facility] Dec 05, 2014 02:31 TOBACCO INPATIENT NO USE VA C NTRL W[facility] PM 30 DAYS [place] [facility] Dec 05, 2014 01:37 LIFETIME NON-TOBACCO [facility] Nov 03, 2014 01:14 TOBACCO INPATIENT NO USE VA C NTRL W[facility] PM 30 DAYS [place] [facility] Nov 02, 2014 10:36 TOBACCO INPATIENT NO USE VA C NTRL W[place] AM 30 DAYS [place] [facility] Oct 06, 2003 03:47 QUIT TOBACCO USE > 7 VA CNTRL WSTRN AM YEARS AGO [facility] Advance Directives: All historical and current Section Date Range: From patient's date of to the date document was created. This section includes ALL of a patient's completed or amended VA Advance and Rescinded Directives. The entries below indicate that a directive exists for the patient, but an actual copy is not included with this document. The data comes from all [place] facilities. Date Advance Directives Provider Source Sep 06, 2007 ADVANCE DIRECTIVE ROBERTO FONTENOT [place] [facility]
--- OUTSIDE RECORDS SUMMARY | 2022-09-09 17:32 | XMS_ITS | Encounter Summary ---
:1960 Author Organization Department of [facility] rs Address [address] [place] [address] Support Name Relationship Address Phone MR MRS NERI KENNEDY Unavailable [address] [place] [address] MR MRS NERI KENNEDY Unavailable [address] [place] [address] Insurance Providers: All historical and current Section [...] Number Crowell [employer] MEDICARE MCR Oct 21, [id number] [phone] TREVOR LEMUS PATIENT CARE ADVANTAGE (WNR) 2018 [id number] [facility] (WNR) MEDICAID MEDICAID [facility] Aug 23, [facility] [id number] [phone] TREVOR TRINH PATIENT [facility] 2014 D [id number] [facility] MED[facility] PART Nov 21, PART A [id number] [phone] TREVOR KENNEDY PATIENT (WNR) (M) A 2002A 00 FFREY MEDICARE MEDICARE PART Nov 21, PART B [id number] [phone] TREVOR KENNEDY PATIENT (WNR) (M) B 2002A FFREY MEDICARE MEDICARE PART Nov 21, PART A [id number] TREVOR KENNEDY PATIENT (WNR) (M) A 2002A FFREY MEDICARE MEDICARE PART Nov 21, PART B [id number] TREVOR KENNEDY PATIENT (WNR) (M) B 2002 27A 4 [facility] Selected Encounter This section includes the information on record at [place] for the Encounter. Date/Time Encounter Type Encounter Reason Provider Source Description Mar 23, 2022 OFFICE O/P EST PRIMARY ICD-10-CM TRISTIN LIAO 11:30 AM LOW 20-29 MIN CARE/MEDICINE Z86.711 DIANNA F Personal history of pulmonary embolism with Provider Comments: H/O: pulmonary embolus ([facility] [id number]) IHE Encounter Template Text not used by [place] Assessments - Encounter Diagnoses This section includes the primary and secondary diagnoses documented for the Encounter. Date/Time Primary/Secondary Diagnosis Name Provider Source Diagnosis Mar 23, 2022 PRIMARY Personal history [facility] 01:37 PM of pulmonary [facility]ICA F [place] [facility] embolism Mar 23, 2022 SECONDARY Acute emblsm and [facility] W STRN 01:37 PM thombos unsp deep [facility] [place] [facility] vn unsp prox low extrm Mar 23, 2022 SECONDARY Essential [facility] WSTRN 01:37 PM (primary) [facility] [place] [facility] hypertension Mar 23, 2022 SECONDARY Hyperlipidemia, [facility] TRN 01:37 PM unspecified [facility] [place] [facility] Mar 23, 2022 SECONDARY Type 2 diabetes [facility] CNT WS TRN 01:37 PM mellitus with [facility]LICA F [place] [facility] diabetic neuropathy, unsp Plan of Treatment: Future Appointments (+ 6 [...] Appointment Type Appointment Facili ty Name Mar 25, 2022 08:00 AM AMBULATORY - MEDICINE [facility] [place] [facility] Apr 09, 2022 09:00 AM AMBULATORY - MEDICINE [facility] May 18, 2022 08:30 AM [facility] Aug 31, 2022 10:00 AM AMBULATORY - REHAB MEDICINE [facility] Sep 18, 2022 10:00 AM AMBULATORY - REHAB MEDICINE [facility] W [facility] Active, Pending, and Scheduled Orders This section includes a listing of several types of active, pending, and scheduled orders, including clinic medications orders, diagnostic test orders, procedure orders and consult orders; where the start date of the order is 45 days before the date of the Encounter or 45 days after the date of the Encounter. The data comes from all [place] treatment facilities. Test Date/Time Test Type Test Details Facility Name Mar 23, 2022 12:00 AM Laboratory - Chemistry MICROALBUMIN CREATI NINE Order RATIO PANEL URINE (RANDOM) SP Mar 23, 2022 12:00 AM Laboratory - Chemistry URINALYSIS URINE SP Order Lab Results: +/- 30 days of the [...] - Unit Interpretation Reference Range Comment Mar 23 [facility] VITAMIN D Specimen Type: SERUM 2021 [facility] 25-OH Comment: Vitami n D, 25-Hydroxy reports [...] ng/mL before there is any concern. Jadyn ESTRADA, Zac EDWARDS, Charlee BORIEN, et al. Evaluation, treatment and prevention of vitamin D deficiency: an Endo crine Society cl inical practice guideline. J Clin Endocrinol Metab. 2011;96(7):1911-30. For additional information, please refer to http://education.[employer]/faq/FPT685 (This link is being p rovided for info rmational/ educational purposes only.) This test was developed and its analytical performance characteristics have been determined by [employer] [place], [place]. I t has not been c leared or approved by the U.S. Food and Drug Administration. This assay has been validated pursuant to the CLIA regulations and is used for clinical purposes. This test was developed and its analytical performance characteristics have been determined by [employer] [place], [place]. It has not been cleared or approved by the U.S. Food and Drug Administration. This assay has been v alidated pursuant to the CLIA regulations and is used for clinical purposes. Test Performed by [facility], [employer] [facility], [address] [place] [address] Eric Murguia M.D., Ph.D., Director of Laboratories , CLIA [id number] TEST PERFORMED AT: , Ordering Provid er: BALTAZAR LIAO Report Released Date/Time: Feb 04, 2022 11:15 AM Reporting Lab: [facility] [address] [facility] [address] Performing Lab: [facility] [address] [facility], [address] [facility] [address] VITAMIN D, 25-OH, TOTAL 38 30-100 VITAMIN D, 25-OH, D3 38 VITAMIN D, 25-OH, D2 <4 Mar 23, 2022 [facility] WSN PT & INR (COUMADIN) Specimen Ty pe: PLASMA 12:22 PM [facility] No comment enter ed. Ordering Provid er: BALTAZAR LIAO Report Released Date/Time: Feb 04, 2022 11:15 AM Reporting Lab: [facility] [address] [facility] [address] Performing Lab: [facility] [address] [facility] [address] INR 1.3 PROTIME 14.7 H 10.0-13.1 Mar 23, 2022 12:22 [facility] LIVER FUNCTION Specimen Typ e: SERUM PM [facility] No comment enter ed. Ordering Provid er: BALTAZAR LIAO Report Released Date/Time: Feb 04, 2022 11:15 AM Reporting Lab: [facility] [address] [facility] [address] Performing Lab: [facility] [address] [facility] [address] PROTEIN,TOTAL 7.4 6.0-8.3 ALBUMIN 4.1 3.5-5.0 ALKALINE PHOSPHATASE 80 40-150 AST 20 5-34 ALT 26 <6-55 BILIRUBIN, TOTAL 0.5 0.2-1.2 Mar 23, 2022 [facility] HEMOGLOBIN A1C Specimen Type: BLOOD 12:22 PM [facility] PANEL Comment: Values obtained from A1C measurements can vary. For typical A1C assays, a reported value of 7.0 could actually be between 6.72 and 7.28 if measured by a reference method. A reported value of 9 .0 could actuall y be between 8.73 and 9.27. Ref: http://www.ngsp.org/CAPdata.asp Ordering Provid er: BALTAZAR LIAO Report Released Date/Time: Feb 04, 2022 11:15 AM Reporting Lab: [facility] [place] [facility] [address] [facility] [address] Performing Lab: [facility] [address] [facility] [address] HEMOGLOBIN A1C 8.1 H 4.0-5.6 Mar 23, 2022 12:22 PM [facility] CBC Specimen Type: BLOOD [facility] No comment enter ed. Ordering Provid er: BALTAZAR LIAO Report Released Date/Time: Feb 04, 2022 11:15 AM Reporting Lab: [facility] [place] [facility] [address] [facility] [address] Performing Lab: [facility] [place] [facility] [address] [facility] [address] WBC 9.13 4.50-11.00 RBC 4.34 4.23-5.66 HGB [...] Lab: [facility] [place] [facility] [address] [facility] [address] Performing Lab: [facility] [place] [facility] [address] [facility] [address] MAGNESIUM 1.6 1.6-2.6 Mar 23, 2022 12:22 PM [facility] [place] TSH Specimen Type: SERUM [facility] No comment enter ed. Ordering Provid er: BALTAZAR LIAO Report Released Date/Time: Feb 04, 2022 11:15 AM Reporting Lab: [facility] [place] [facility] [address] [facility] [address] Performing Lab: [facility] [place] [facility] [address] [facility] [address] TSH 1.41 0.35-5.00 Mar 23, 2022 [facility] BASIC METABOLIC Specimen Type: SERUM 12:22 PM [place] [facility] PANEL (fasting) No comment enter ed. Ordering Provid er: BALTAZAR LIAO Report Released Date/Time: Feb 04, 2022 11:15 AM Reporting Lab: [facility] [place] [facility] [address] [facility] [address] Performing Lab: [facility] [place] [facility] [address] [facility] [address] UREA NITROGEN 23 7-25 GLUCOSE 211 H 65-100 SODIUM 135 135-145 POTASSIUM 4.9 3.5-5.0 CHLORIDE 100 100-110 CO2 25 20-30 CREATININE, Serum 1.14 0.50-1.40 eGFR(CKD-EPI 2020) 72 >60 Vital Signs: All taken on the encounter date This section contains inpatient and outpatient Vital Signs collected on the date of the Encounter. Date/Time Temperature Pulse Blood Respiratory SP02 Pain Height Weight Josiah dy Source Pressure Rate Mass Index Mar 23, 278 lb 38 [place] 2021 11:37 CN[place] AM [place] [facility] Mar 23, 98.2 F 86 102/72 16 /min 90 % 0 [place] 2021 11:28 /min mm[Hg] CNTRL AM [place] [facility] Social History: Smoking Status (Most current) and [...] VA-TOBACCO FORMER USER [facility] CN[facility] [place] [facility] Tobacco Use History This section includes a history of the smoking, or tobacco- related health factors, that were collected on or before the date of the Encounter. The data comes from the [place] facility where the Encounter took place. Date/Time Smoking Status/Tobacco Comment Facility Use Feb 16, 2022 10:00 VA-TOBACCO QUIT 15 YRS VA CNT RL WSTRN AM OR MORE [place] [facility] Feb 04, 2021 11:00 VA-TOBACCO NEVER USED VA CNTR L [facility]STR[place] AM [place] [facility] Feb 04, 2021 11:00 VA-TOBACCO USE DECLINED VA CN TRL WSTRN AM TO ANSWER [place] [facility] May 08, 2019 11:06 VA-TOBACCO FORMER USER VA CNT RL WSTRN AM [place] [facility] May 08, 2019 11:06 VA-TOBACCO QUIT 15 YRS VA CNT RL WSTRN AM OR MORE [place] [facility] Oct 26, 2018 11:33 VA-TOBACCO NEVER USED VA CNTR L [facility] [place] [facility] Oct 21, 2017 09:29 QUIT TOBACCO USE > 7 VA CNTRL 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, cigarettes [facility] Dec 06, 2015 09:59 QUIT TOBACCO USE IN PAST VA C NTRL WSTRN AM YEAR [facility] Dec 05, 2014 02:31 TOBACCO INPATIENT NO USE VA C NTRL WSTR[facility] PM 30 DAYS [facility] Dec 05, 2014 01:37 LIFETIME NON-TOBACCO VA CNTRL WSTR[facility] PM USER [facility] Nov 03, 2014 01:14 TOBACCO INPATIENT NO USE VA C NTRL WSTRN PM 30 DAYS [facility] Nov 02, 2014 10:36 TOBACCO INPATIENT NO USE VA C N[facility]L [facility]STR[facility] AM 30 DAYS [facility] Oct 06, 2003 03:47 QUIT TOBACCO USE > 7 VA CNTRL WSTRN AM YEARS AGO [facility] Advance Directives: All historical and current [...] DIRECTIVE ROBERTO FONTENOT [place] CNTRL WSTR N [facility] Encounter Notes: All associated encounter notes This section contains the clinical notes associated to the Encounter. Date/Time Encounter Note(s) Provider Source Mar 23, 2022 01:31 PHYSICIAN BEDSPREAD FOLDER NOTE: BALTAZAR LIAO CNTRL WSTRN LOCAL TITLE: GABINO DIAZ F [facility] STANDARD TITLE: PHYSICIAN BEDSPREAD FOLDER NOTE DATE OF NOTE: MAR 23, 2022@13:31 ENTRY DATE: MAR 23, 2022@13:31:29 AUTHOR: BALTAZAR LIAO EXP COSIGNER: URGENCY: STATUS: COMPLETED GABINO NOTE Has ADDENDA CC/HPI: 62 year old MALE here in follow-up for; He would like full eval of left knee for pain, related to osteomyelitis as well as DJD, etc nad low back to support his pen ding claim (submitted a month ago) for [place] with the VBA. He reports jae t the GABRIELA told him to see me for this. As he gets all his care outside, I find this asp ect of shared care would not benefit him and these evals would each be an mariah r or more separately. I suggest that he pursue this through his PCP at [facility], where he has been getting ALL of his care. Review of systems: Patient reports no changes [facility], nor in meds or any admissions. Active problems - Computerized Problem List is [...] foot ulcer 9. Sleep apnea (SNOMED CT 46155669) 10. latent TB 11. Lack of Housing 12. 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 Chronic Obstructive Pulmonary Disease 14. Low Back Pain, Lumbago 15. Degeneration of intervertebral disc 16. Other specified drug dependence, in remissio n 17. Personal History of Colonic Polyps negative colo 2005 18. Personality Disorder NOS 19. Diabetes mellitus (SNOMED CT 95443828) 20. Hyperlipidemia (SNOMED CT 77943634) 21. Hypertension (SNOMED CT 21102888) VA and Non VA meds were reconciled with the emelia ent who left with a corrected copy. See medication page for details. Active and Recently Outpatient Medicatio ns (excluding Supplies): Inactive Outpatient Medications Status 1) CARBOXYMETHYLCELLULOSE 0.5% OPH SOLN INSTILL 1 DROP INTO EACH EYE FOUR TIMES DAILY NEEDED [...] Non-VA METFORMIN HCL 1000MG TAB 1000MG BY MO [facility] TWICE ACTIVE DAILY 14) Non-VA POLYETHYLENE GLYCOL 3350 ORAL PWDR 17 GRAMS (1 ACTIVE CAPFUL) BY MOUTH ONCE DAILY NEEDED 15) Non-VA VARDENAFIL HCL 20MG TAB 20MG BY MOUTH ONCE ACTIVE DAILY NEEDED 16 Total Medications 98.2 F [36.8 C] (03/23/2022 11:28) 86 (03/23/2022 11:28) 16 (03/23/2022 11:28) 102/72 (03/23/2022 11:28) 0 (03/23/2022 11:28) 72 in [182.9 cm] (11/04/2018 09:32) 278 lb [126.10 kg] (03/23/2022 11:37) BMI: 37.8 Neuro: Alert and oriented times three, grossly n onfocal, nasolabial folds intact. \ He kindly agrees to visit lab today and send me outside shot info. /tan/ Baltazar Liao PA-C STAFF PHYSICIAN BEDSPREAD FOLDER Signed: 03/23/2022 13:37 03/26/2022 ADDENDUM STATUS: COMPLETED Please inform him that labs are acceptab le, fax labs to [facility] ID team and request shot records from [place]. /tan/ Baltazar Liao PA-C STAFF PHYSICIAN BEDSPREAD FOLDER Signed: 03/26/2022 13:59 Receipt Acknowledged By: * AWAITING SIGNATURE * BETHANIE ANTOINE Mar 23, 2022 11:32 PREVENTIVE MEDICINE NURSING NOTE: TOD BAUER [place] CNTRL WSTR[place] LOCAL TITLE: CLINICAL REMINDERS/NURSING [place] [facility] STANDARD TITLE: PREVENTIVE MEDICINE NURSING NOTE DATE OF NOTE: MAR 23, 2022@11:32 ENTRY DATE: MAR 23, 2022@11:32:25 AUTHOR: BRICE BAUER EXP COSIGNER: URGENCY: STATUS: COMPLETED COVID-19 Immunization: Pfizer COVID-19 Vaccine given previously Patient received a prior dose of the Pfizer COV ID-19 Vaccine. Date: February 19, 2022 Series: Series 3 Location: [facility] /tan/ BRICE BAUER LPN LICENSED PRACTICAL NURSE Signed: 03/23/2022 11:41
--- OUTSIDE RECORDS SUMMARY | 2022-09-09 17:32 | XMS_ITS | Encounter Summary ---
:1960 Author Organization Department [facility] rs Address [address] [place] [address] Support Name Relationship Address Phone MR MRS NERI KENNEDY Unavailable [address] [place] [address] MR MRS NERI KENNEDY Unavailable [address] [place] [address] Insurance Providers: All historical and current Section [...] Number Crowell [employer] MEDICARE MCR Oct 21, [id number] TREVOR LEMUS PATIENT CARE ADVANTAGE (WNR) [id number] [facility] (WNR) MEDICAID MEDICAID [facility] Aug 23, [facility] [id number] [phone] TREVOR TRINH PATIENT [facility] 2014 D [id number] [facility] MEDICARE PART Nov 21, PART A [id number] [phone] TREVOR KENNEDY PATIENT (WNR) (M) A 2002A 00 FFREY MEDICARE MEDICARE PART Nov 21, PART B [id number] [id number] TREVOR KENNEDY PATIENT (WNR) (M) B 2002A 00 FFREY MEDICARE MEDICARE PART Nov 21, PART A [id number] TREVOR KENNEDY PATIENT (WNR) (M) A 2002A FFREY MEDICARE MEDICARE PART Nov 21, PART B [id number] TREVOR KENNEDY PATIENT (WNR) (M) B 2002 27A 4 FFREY Selected Encounter This section includes the information on record at [place] for the Encounter. Date/Time Encounter Type Encounter Description Reason Provider Source Jan 21, 2022 12:00 Outpatient Encounter [facility] AM CONSULT IHE Encounter Template Text not used by [place] Plan of Treatment: Future Appointments (+ 6 months) and Future Tests (+/- 45 days) The Plan of Treatment section includes future care activities for the patient from all [place] treatmentfacilities. This section includes future appointments and future orders which are active, pending orscheduled.Future Appointments This section includes appointments that were scheduled to occur 6 months from the date of the Encounter, up to a maximum of 20 appointments. The data comes from all [place] treatment facilities. Appointment Date/Time Appointment Type Appointment Facili ty Name Feb 16, 2022 10:00 AM AMBULATORY MEDICINE [place] [facility] [place] [facility] Mar 23, 2022 11:30 AM AMBULATORY MEDICINE [place] [facility] [place] [facility] Mar 25, 2022 08:00 AM [facility] [place] [facility] [place] [facility] Apr 09, 2022 09:00 AM [facility] [place] [facility] [place] [facility] May 18, 2022 08:30 AM [facility] [place] [facility] Active, Pending, and Scheduled Orders This section includes a listing of several types of active, pending, and scheduled orders, including clinic medications orders, diagnostic test orders, procedure orders and consult orders; where the start date of the order is 45 days before the date of the Encounter or 45 days after the date of the Encounter. The data comes from all [place] treatment [facility]. Test Date/Time Test Type Test Details Facility Name December 31, 2021 09:10 AM Consult Order [facility] W[facility] SURGERY [facility] Gunnery/Ordnance Officer's Choice Social History: Smoking Status (Most [...] 04, 2021 11:00 AM VA-TOBACCO NEVER USED IA C NTRL WSTRN [facility] Tobacco Use History This section includes a history of the smoking, or tobacco- related health factors, that were collected on or before the date of the Encounter. The data comes from the [place] facility where the Encounter took place. Date/Time Smoking Status/Tobacco Comment Facility Use Feb 04, 2021 11:00 VA-TOBACCO USE DECLINED VA CN TRL WSTRN AM [facility] May 08, 2019 11:06 VA-TOBACCO FORMER USER VA CNT RL [place]N AM [place] [facility] May 08, 2019 11:06 VA-TOBACCO QUIT 15 YRS VA CNT RL WSTRN AM OR MORE [facility] Oct 26, 2018 11:33 VA-TOBACCO NEVER USED VA CNTR L [place] AM [place] [facility] Oct 21, 2017 09:29 QUIT TOBACCO USE > 7 VA CNTRL 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, cigarettes [facility] Dec 06, 2015 09:59 QUIT TOBACCO USE IN PAST VA C NTRL WSTRN AM YEAR [place] [facility] Dec 05, 2014 02:31 TOBACCO INPATIENT NO USE VA C NTRL W[place]N PM 30 DAYS [place] [facility] Dec 05, 2014 01:37 LIFETIME NON-TOBACCO [facility] PM [facility] Nov 03, 2014 01:14 TOBACCO INPATIENT NO USE VA C NTRL W[place]N PM 30 DAYS [place] [facility] Nov 02, 2014 10:36 TOBACCO INPATIENT NO USE VA C NTRL W[place]N AM 30 DAYS [place] [facility] Oct 06, 2003 03:47 QUIT TOBACCO USE > 7 VA CNTRL WSTRN AM YEARS AGO [facility] Advance Directives: All historical and current [...] DIRECTIVE ROBERTO FONTENOT IA CNTRL WSTR N [facility]
--- OUTSIDE RECORDS SUMMARY | 2022-09-09 17:34 | XMS_ITS | Encounter Summary ---
:1960 Author Organization Department [facility] rs Address [address] [place] [address] Support Name Relationship Address Phone MR MRS NERI KENNEDY Unavailable [address] [place] [address] MR MRS NERI KENNEDY Unavailable [address] [place] [address] Insurance Providers: All historical and current Section [...] Number Crowell [employer] MEDICARE MCR Oct 21, [id number] TREVOR LEMUS PATIENT CARE ADVANTAGE (WNR) 2018 [id number] [facility] MEDICAID MEDICAID [facility] Aug 23, [facility] [id number] [phone] [facility] D [id number] FFREY [facility] MEDICARE PART Nov 21, PART B [id number] [phone] TREVOR KENNEDY PATIENT (WNR) (M) B 2002A 00 FFREY MEDICARE MEDICARE PART Nov 21, PART A [id number] [phone] TREVOR KENNEDY PATIENT (WNR) (M) A 2002A FFRE[facility] MEDICARE MEDICARE PART Nov 21, PART A [id number] TREVOR KENNEDY PATIENT (WNR) (M) A 2002A FFRE[facility] MEDICARE MEDICARE PART Nov 21, PART B [id number] TREVOR KENNEDY PATIENT (WNR) (M) B 2002 27A 4 [facility] Selected Encounter This section includes the information on record at [place] for the Encounter. Date/Time Encounter Type Encounter Reason Provider Source Description Apr 09, 2022 DETERMINE OPTOMETRY ICD-10-CM E11.9 OSHINSKIE,MEREDITH 09:00 AM REFRACTIVE STATE Type 2 diabetes NARD J mellitus without complications with Provider Comments: DM Type 2 w/o Complications IHE Encounter Template Text not used by VA Assessments - Encounter Diagnoses This section includes the primary and secondary diagnoses documented for the Encounter. Date/Time Primary/Secondary Diagnosis Name Provider Source Diagnosis Apr 13, 2022 PRIMARY Type 2 diabetes OSHINSKIE,MEREDITH [facility] WS TRN 10:23 AM mellitus without [facility] complications Apr 13, 2022 SECONDARY Combined forms of OSHINSKIE,MEREDITH [facility] W[facility]N 10:23 AM age-related [facility] cataract, bilateral Apr 13, 2022 SECONDARY Dry eye syndrome OSHINSKIE,MEREDITH [facility] W STR[facility] 10:23 AM of bilateral [facility] lacrimal glands Apr 13, 2022 SECONDARY Myopia, bilateral OSHINSKIE,MEREDITH [facility] 10:23 AM [facility] Apr 13, 2022 SECONDARY Presbyopia OSHINSKIE,MEREDITH [facility] 10:23 AM [facility] Apr 13, 2022 SECONDARY Unspecified OSHINSKIE,MEREDITH [facility] W[facility]N 10:23 AM astigmatism, [facility] bilateral Plan of Treatment: Future Appointments (+ 6 months) and Future Tests (+/- 45 days) The Plan of Treatment section includes future care activities for the patient from all VA treatmentfacilities. This section includes future appointments and future orders which are active, pending orscheduled.Future Appointments This section includes appointments that were scheduled to occur 6 months from the date of the Encounter, up to a maximum of 20 appointments. The data comes from all [place] treatment facilities. Appointment Date/Time Appointment Type Appointment Facili ty Name May 18, 2022 08:30 AM AMBULATORY - [facility] Aug 31, 2022 10:00 AM AMBULATORY - REHAB MEDICINE [facility] Sep 18, 2022 10:00 AM AMBULATORY - REHAB MEDICINE [facility] Active, Pending, and Scheduled Orders This section includes a listing of several types of active, pending, and scheduled orders, including clinic medications orders, diagnostic test orders, procedure orders and consult orders; where the start date of the order is 45 days before the date of the Encounter or 45 days after the date of the Encounter. The data comes from all [place] treatment facilities. Test Date/Time Test Type Test [...] Unit Interpretation Reference Range Comment Mar 23 [facility] WSN VITAMIN D Specimen Type: SERUM 2021 [facility] 25-OH Comment: Vitami n D, 25-Hydroxy [...] 2011;96(7):1911-30. For additional information, please refer to http://education.OrangeScape.mii/faq/[email or web address] (This link is being p rovided for info rmational/ educational purposes only.) This test was developed and its analytical performance characteristics have been determined by [employer] [facility] [place]. I t has not been c leared or approved by the U.S. Food and Drug Administration. This assay has been validated pursuant to the CLIA regulations and is used for clinical purposes. This test was developed and its analytical performance characteristics have been determined by [employer] [facility] [place]. It has not been cleared or approved by the U.S. Food and Drug Administration. This assay has been v alidated pursuant to the CLIA regulations and is used for clinical purposes. Test Performed by [facility], [employer] [facility], [address] [place] [address] Eric Murguia M.D., Ph.D., Director of Laboratories , CLIA [id number] TEST PERFORMED AT: , Ordering Provid er: BALTAZAR SWANSON Report Released Date/Time: Feb 04, 2022 11:15 AM Reporting Lab: [facility] [place]N [place] [facility] [address] [facility] [address] Performing Lab: [facility] [place] [facility] [address] [facility], [address] [facility] [address] VITAMIN D, 25-OH, TOTAL 38 30-100 VITAMIN D, 25-OH, D3 38 VITAMIN D, 25-OH, D2 <4 Mar 23, 2022 ME CNTR WSTRN PT & INR (COUMADIN) Specimen Ty pe: PLASMA 12:22 PM [place] [facility] No comment enter ed. Ordering Provid er: BALTAZAR SWANSON Report Released Date/Time: Feb 04, 2022 11:15 AM Reporting Lab: [facility] [place] [facility] [address] [facility] [address] Performing Lab: [facility] [address] [facility] [address] INR 1.3 PROTIME 14.7 H 10.0-13.1 Mar 23, 2022 12:22 VA CNTRL WSTRN LIVER FUNCTION Specimen Typ e: SERUM PM [place] [facility] No comment enter ed. Ordering Provid er: BALTAZAR SWANSON Report Released Date/Time: Feb 04, 2022 11:15 AM Reporting Lab: [facility] [place] [facility] [address] [facility] [address] Performing Lab: [facility] [place] [facility] [address] [facility] [address] PROTEIN,TOTAL 7.4 6.0-8.3 ALBUMIN 4.1 3.5-5.0 ALKALINE PHOSPHATASE 80 40-150 AST 20 5-34 ALT 26 <6-55 BILIRUBIN, TOTAL 0.5 0.2-1.2 Mar 23, 2022 12:22 VA CNTRL WSTRN MAGNESIUM Specimen Typ e: SERUM PM [place] [facility] No comment enter ed. Ordering Provid er: BALTAZAR SWANSON Report Released Date/Time: Feb 04, 2022 11:15 AM Reporting Lab: [facility] [place] [facility] [address] [facility] [address] Performing Lab: [facility] [place] [facility] [address] [facility] [address] MAGNESIUM 1.6 1.6-2.6 Mar 23, 2022 12:22 PM [facility]L [facility] CBC Specimen Type: BLOOD HCS No comment enter ed. Ordering Provid er: BALTAZAR SWANSON Report Released Date/Time: Feb 04, 2022 11:15 AM Reporting Lab: [facility] [place] [facility] [address] [facility] [address] Performing Lab: [facility] [place] [facility] [address] [facility] [address] WBC 9.13 4.50-11.00 RBC 4.34 4.23-5.66 HGB 14.1 12.8-17 HCT 40.4 39.2-50.4 MCV 93.1 82-99 MCHC 34.9 30.8-35.1 PLT 188 140-360 RDW-CV 11.6 L 12.0-16.0 MCH 32.5 26.2-32.6 Mar 23, 2022 12:22 PM ME CNTRL WSTRN [place] TSH Specimen Type: SERUM HCS No comment enter ed. Ordering Provid er: BALTAZAR SWANSON Report Released Date/Time: Feb 04, 2022 11:15 AM Reporting Lab: [facility] [place] [facility] [address] [facility] [address] Performing Lab: [facility] [place] [facility] [address] [facility] [address] TSH 1.41 0.35-5.00 Mar 23, 2022 ME CNTRL WSTRN HEMOGLOBIN A1C Specimen Type: BLOOD 12:22 PM [place] [facility] PANEL Comment: Values obtained from A1C measurements can vary. For typical A1C assays, a reported value of 7.0 could actually be between 6.72 and 7.28 if measured by a reference method. A reported value of 9 .0 could actuall y be between 8.73 and 9.27. Ref: http://www.ngsp.org/CAPdata.asp Ordering Provid er: BALTAZAR SWANSON Report Released Date/Time: Feb 04, 2022 11:15 AM Reporting Lab: [facility] [place] [facility] [address] [facility] [address] Performing Lab: [facility] [place] [facility] [address] [facility] [address] HEMOGLOBIN A1C 8.1 H 4.0-5.6 Mar 23, 2022 ME CNTRL WSTRN BASIC METABOLIC Specimen Type: SERUM 12:22 PM [place] [facility] PANEL (fasting) No comment enter ed. Ordering Provid er: BALTAZAR SWANSON Report Released Date/Time: Feb 04, 2022 11:15 AM Reporting Lab: [facility]L [facility] [facility] [address] [facility] [address] Performing Lab: [place] CNTRL [facility] [facility] [address] [facility] [address] UREA NITROGEN 23 7-25 GLUCOSE 211 H [...] AM VA-TOBACCO FORMER [facility]ER [facility] Tobacco Use History This section includes a history of the smoking, or tobacco- related health factors, that were collected on or before the date of the Encounter. The data comes from the [place] facility where the Encounter took place. Date/Time Smoking Status/Tobacco Comment Facility Use Feb 16, 2022 10:00 VA-TOBACCO QUIT 15 YRS VA CNT RL WSTRN AM OR MORE [place] [facility] Feb 04, 2021 11:00 VA-TOBACCO NEVER USED VA CNTR L W[place]N AM [place] [facility] Feb 04, 2021 11:00 VA-TOBACCO USE DECLINED VA CN TRL WSTRN [facility] May 08, 2019 11:06 VA-TOBACCO FORMER USER VA CNT RL WSTRN AM [place] [facility] May 08, 2019 11:06 VA-TOBACCO QUIT 15 YRS VA CNT RL WSTRN AM OR MORE [place] [facility] Oct 26, 2018 11:33 VA-TOBACCO NEVER USED VA CNTR L WSTRN [place] [facility] Oct 21, 2017 09:29 QUIT TOBACCO USE > 7 VA CNTRL 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, cigarettes [place] [facility] Dec 06, 2015 09:59 QUIT TOBACCO USE IN PAST ME C NTRL WSTRN [facility] Dec 05, 2014 02:31 TOBACCO INPATIENT NO USE VA C NTRL WSTRN PM 30 DAYS [place] [facility] Dec 05, 2014 01:37 LIFETIME NON-TOBACCO VA CNTRL WSTRN PM USER [facility] Nov 03, 2014 01:14 TOBACCO INPATIENT NO USE VA C NTRL WSTRN PM 30 DAYS [place] [facility] Nov 02, 2014 10:36 TOBACCO INPATIENT NO USE ME C NTRL WSTRN AM 30 DAYS [facility] Oct 06, 2003 03:47 QUIT TOBACCO USE > 7 ME CNTRL WSTRN AM YEARS AGO [facility] Advance Directives: All historical and current Section [...] DIRECTIVE ROBERTO FONTENOT ME CNTRL WSTR N [facility] Encounter Notes: All associated encounter notes This section contains the clinical notes associated to the Encounter. Date/Time Encounter Note(s) Provider Source Apr 09, 2022 08:49 OPTOMETRY NOTE: MATHEW HINDS ME CNTRL WS TRN AM LOCAL TITLE: OPTOMETRY NOTE J [facility] STANDARD TITLE: OPTOMETRY NOTE DATE OF NOTE: APR 09, 2022@08:49 ENTRY DATE: APR 09, 2022@08:50:01 AUTHOR: BERENICE GARCIA EXP COSIGNER: MATHEW RODRIGUEZ URGENCY: STATUS: COMPLETED OPTOMETRY NOTE Has ADDENDA Active problems - Computerized Problem List is t he source for the followin. Acute deep venous thrombosis of thigh 2. H/O: pulmonary embolus 3. 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 Unemployment * 5. Morbid obesity 6. Bipolar,Depr,Part Rem 7. Noncompliance with therapeutic regimen 8. Diabetic foot ulcer 9. Sleep apnea (SNOMED CT 28068668) 10. latent TB 11. Lack of Housing 12. 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 Chronic Obstructive Pulmonary Disease 14. Low Back Pain, Lumbago 15. Degeneration of intervertebral disc 16. Other specified drug dependence, in remissio n 17. Personal History of Colonic Polyps 18. Personality Disorder NOS 19. Diabetes mellitus (SNOMED CT 46085757) 20. Hyperlipidemia (SNOMED CT 38378801) 21. Hypertension (SNOMED CT 24287209) Active Outpatient Medications (including Supplie s): Active Non-VA Medications Status 1) Non-VA ALBUTEROL/IPRATROPIUM [...] Non-VA METFORMIN HCL 1000MG TAB 1000MG BY [facility] TWICE ACTIVE DAILY 14) Non-VA POLYETHYLENE GLYCOL 3350 ORAL PWDR 17 GRAMS (1 ACTIVE CAPFUL) BY MOUTH ONCE DAILY NEEDED 15) Non-VA VARDENAFIL HCL 20MG TAB 20MG BY MOUTH ONCE ACTIVE DAILY NEEDED Allergies: VANCOMYCIN All medications including th ose prescribed by outside VA's, community providers, and all OTC meds were review ed and reconciled with patient to the best of their abilities. This 62 year old MALE is seen today for CEE + DM last A1c 8.1 ON Mar 2022 Chief Complaint: Cloudy vision with glasses on especially up clos e. Itchy and watery eyes currently using artifical tears he wants to know if he can try Xiidra because dryness is getting worse. Pt has to take off PAL s to read his cell phone. OHx (+/-)If Yes, explain: 1. Cataract OU 2. Dry eye OU 3. Presbyopia 4. DM type [address] (-) Pain: (-) OBRIEN: (-) Diplopia: (-) Flashes: (-) Floaters: (-) Amaurosis Fugax/Tia's: (-) Eye Injury: (-) Eye Surgery: (-) TBI FOHx: (-) Glaucoma/ARMD/Blindness (-) Smoker/Length of Time/PPD: Current Rx with last BCVA: OD: -4.00 -1.25 x 155 20/20-1 OS: -4.50 -1.25 x 085 20/20-1 Add: +2.50 20/20 OU DVA ( )sc ( x )cc OD: 20/70-1 slight improvement with PH 20/50 OS: 20/30-2 NIPH Pupils: PERRL (-)APD EOMs: SAFE OU, (-)Pain/Diplopia CVF (facial, peripheral): FTFC OU Subjective Refraction: No improvement OU All the above pe rformed by student, reviewed by attending Anterior segment: Performed by student, repeated by attending Lids: MGD OU Conj: white and quiet OU Cornea: oily tear film OU AC: Open OU Iris: flat and clear (-) NVI OU Lens: NS +2, PSC +3 OD, tr AC, NS+2, PSC +2 OS Tonometry: Performed by student, reviewed by attending OD 13 mmHg OS 12 mmHg Time:9:19 am Fundus exam: Dilated: xx @ 9:30 am Non dilated: Dilating Drops: 1GTT 1 % Tropicamide OU & 1GTT 2 .5% Phenylephrine OU (Pt. ed. on side effects, dilation warning given and verbal consent obtained) Patient advised not to drive if they feel they h ave any symptoms which could affect their ability to drive safely. Patient ad vised not to engage in any activities which could put themselves or others at risk if they feel they have any symptoms which could affect their ability to perform those activities safely. Performed by student, repeated by attending Vit: syneresis OU C/D: 0.20/0.20 OD, 0.30/0.30 OS (-) NVD, pink a nd healthy Macula: flat and clear OU (-)CSME, lipids, SRF, thickening PPole: (-) CWS,DBH, VB, ME, OSMAN, LAY A/V: 2/3 Vessels: normal caliber OU Periph: flat and intact (-)holes, tears, detach ments 360 OU, (-)NVE Impression: 1.Type II diabetes without retinopathy or macula r edema OU. Pt E&D on findings and importance of good blood glucose control. 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 3.Myopia, Astigmatism, Presbyopia OU 4.Dry eye syndrome OU symptomatic. Plan: 1.Pt educated and understands. Advised to contin ue care with PCP. Monitor annually. 2.Pt educated and understands. Referring for cat aract extraction. 3.Pt educated and understands. No spectacle Rx p rescribed today, RTC after cataract extraction in 4 mo for evaluation. 4.Pt educated and understands.Advised to continu e artificial tears qid.Prescribing Xiidra bid OU. Return to Clinic 4 mo earlier PRN Patient Education: Diabetes: Patient was educated regarding diabetes and rela shirley ocular complications including retinopathy and cataract formation as well as other related systemic complications. The importance of good blood sugar control, bloo d sugar testing as recommended by their PCP and the importance o f timely follow up were all emphasized. Diabetic Eye Exam: The patient has had a dilated funduscopic exam of the retina, or has been screened by digital retinal imaging within the past 24 months by an slat basket maker or clinical admissions manager. Results: The results of a recent DM digital retinal or D M dilated funduscopic eye exam indicated no retinopathy found. Repeat DM eye exam in 2 years. Date: April 09, 2022 Location: [place] Medication Reconciliation: Outpatient: Has the patient been taking medications as docu mented in the EMLR? YES: The patient has been taking medications as documented in the EMLR. Essential Medication List for Review used to co mplete this medication reconciliation. INCLUDED IN THIS LIST: Alphabetical list of act aashish outpatient prescriptions dispensed from this VA (local) an d dispensed from another VA or [facility] facility (remote) as well as inpatien t orders (local, pending and active), local clinic medications, locally documented non-VA medications, and local prescriptions that have or been discontinued in the past 90 days. - All changes in medications, including all non -VA/Herbal/OTC medications were entered into CPRS. - If there were any medications the patient monserrat uld no longer take, they were discontinued. - The patient/caregiver was instructed to updat e this list, discard old lists, and take this list to the next appointme nt, whether with a VA or non-VA provider. /tan/ Mathew Hinds OD [employer] Attendant Signed: 04/09/2022 11:54 for ANDI GARCIA OPTOMETRY STUDENT /tan/ Mathew Hinds OD [employer] Attendant Cosigned: 04/09/2022 11:54 04/09/2022 ADDENDUM STATUS: COMPLETED I reviewed all findings with the parts data writer. I perfo rmed the slit lamp exam and dilated fundus exam. Pt has very significant PSC cataracts OD>OS. Needs surgery to obtain good vision. Progress note reviewed an d edited as needed. I established the plan of care and educated the pa vero about his conditions. /tan/ Mathew Hinds OD [employer] Attendant Signed: 04/09/2022 11:55 05/28/2022 ADDENDUM STATUS: COMPLETED Noted received from Dr Penny who examined pt 05/18/22 and is planning bilateral cataract extraction, OD first /tan/ Mathew Hinds OD [employer] Attendant Signed: 05/28/2022 08:15
--- OUTSIDE RECORDS SUMMARY | 2022-09-09 17:34 | XMS_ITS | Encounter Summary ---
:1960 Author Organization Department of [facility] rs Address [address] [place] [address] Support Name Relationship Address Phone MR MRS NERI KENNEDY Unavailable [address] [phone] [place] [address] MR MRS NERI KENNEDY Unavailable [address] [phone] [place] [address] Insurance Providers: All historical and current Section [...] Number Crowell [employer] MEDICARE MCR Oct 21, [id number] [phone] TREVOR LEMUS PATIENT CARE ADVANTAGE (WNR) [id number] [facility]ICA[facility] MEDICAID [facility] Aug 23, [facility] [id number] [phone] TREVOR TRINH PATIENT [facility] 2014 D [id number] [facility] PART Nov 21, PART B [id number] [phone] TREVOR KENNEDY PATIENT (WNR) (M) B [facility]A [facility] MEDIC[facility] PART Nov 21, PART A [id number] [phone] TREVOR KENNEDY PATIENT (WNR) (M) A 2002A FFREY MEDICARE MEDICARE PART Nov 21, PART A [id number] [phone] TREVOR KENNEDY PATIENT (WNR) (M) A 2002A FFREY MEDICARE MEDICARE PART Nov 21, PART B [id number] [phone] TREVOR KENNEDY PATIENT (WNR) (M) B 2002 [id number] 4 FFREY Selected Encounter This section includes the information on record at [place] for the Encounter. Date/Time Encounter Type Encounter Description Reason Provider Source Apr 09, 2022 12:00 Outpatient Encounter EVENT (HISTORICAL) AM IHE Encounter Template Text not used by [place] Plan of Treatment: Future Appointments (+ 6 months) and Future Tests (+/- 45 days) The Plan of Treatment section includes future care activities for the patient from all [place] [facility]. This section includes future appointments and future orders which are active, pending orscheduled.Future Appointments This section includes appointments that were scheduled to occur 6 months from the date of the Encounter, up to a maximum of 20 appointments. The data comes from all [place] treatment [facility]. Appointment Date/Time Appointment Type Appointment Facili ty Name May 18, 2022 08:30 AM AMBULATORY - MEDICINE [facility] Aug 31, 2022 10:00 AM AMBULATORY - REHAB MEDICINE [facility] Sep 18, 2022 10:00 AM AMBULATORY - REHAB MEDICINE [facility] Active, Pending, and [...] the Encounter. The data comes from all [facility]. Test Date/Time Test Type Test Details Facility Name Mar 23, 2022 12:00 AM Laboratory - Chemistry URINALYSIS URINE SP Order Mar 23, 2022 12:00 AM Laboratory - Chemistry MICROALBUMIN CREATI NINE Order RATIO PANEL URINE (RANDOM) SP Lab Results: +/- 30 days of the encounter This section includes the Chemistry and Hematology Lab Results on record with [place] for the patient. Radiology Reports and Pathology Reports are provided separately, in subsequent sections.Lab Results This section contains the Chemistry/Hematology Results that were resulted 30 days before or 30 daysafter the date of the Encounter. Date/Time Source Result Type Result - Unit Interpretation Reference Range Comment Mar 23 [facility] VITAMIN D Specimen Type: SERUM 2021 [facility] 25-OH Comment: Vitami n D, 25-Hydroxy reports [...] 2011;96(7):1911-30. For additional information, please refer to http://education.[employer]/faq/DTX757 (This link is being p rovided for info rmational/ educational purposes only.) This test was developed and its analytical performance characteristics have been determined by [employer] [place], [place]. I t has not been c leared or approved by the U.S. Food and Drug Administration. This assay has been validated pursuant to the CLIA regulations and is used for clinical purposes. This test was developed and its analytical performance characteristics have been determined by [facility]. It has not been cleared or approved by the U.S. Food and Drug Administration. This assay has been v alidated pursuant to the CLIA regulations and is used for clinical purposes. Test Performed by [facility], [employer] [facility] [place], [address] [facility], [place], [place] Eric Murguia M.D., Ph.D., Director of Laboratories , CLIA [id number] TEST PERFORMED AT: , Ordering Provid er: BALTAZAR SWANSON Report Released Date/Time: Feb 04, 2022 11:15 AM Reporting Lab: [place] [facility] [place] [address] Performing Lab: [facility] [address] [place], [address] [facility] [address] VITAMIN D, 25-OH, TOTAL 38 30-100 VITAMIN D, 25-OH, D3 38 VITAMIN D, 25-OH, D2 <4 Mar 23, 2022 [facility] HEMOGLOBIN A1C Specimen Type: BLOOD 12:22 PM [facility] PANEL Comment: Values obtained from [...] Feb 04, 2022 11:15 AM Reporting Lab: [facility] [address] [facility] [address] Performing Lab: [facility] [address] [facility] [address] HEMOGLOBIN A1C 8.1 H 4.0-5.6 Mar 23, 2022 [facility] ([facility]) Specimen Ty pe: PLASMA 12:22 PM [facility] No comment enter ed. Ordering Provid er: BALTAZAR SWANSON Report Released Date/Time: Feb 04, 2022 11:15 AM Reporting Lab: [facility] [address] [facility] [address] Performing Lab: [facility] [address] [facility] [address] INR 1.3 PROTIME 14.7 H 10.0-13.1 Mar 23, 2022 12:22 [facility] L[facility] FUNCTION Specimen Typ e: SERUM PM [facility] No comment enter ed. Ordering Provid er: BALTAZAR SWANSON Report Released Date/Time: Feb 04, 2022 11:15 AM Reporting Lab: [facility] [address] [facility] [address] Performing Lab: [place] [facility] [place] [facility] [address] [facility] [address] PROTEIN,TOTAL 7.4 6.0-8.3 ALBUMIN 4.1 3.5-5.0 ALKALINE PHOSPHATASE 80 40-150 AST 20 5-34 ALT 26 <6-55 BILIRUBIN, TOTAL 0.5 0.2-1.2 Mar 23, 2022 12:22 PM [facility] [place] CBC Specimen Type: BLOOD HCS No comment enter ed. Ordering Provid er: BALTAZAR SWANSON Report Released Date/Time: Feb 04, 2022 11:15 AM Reporting Lab: [place] [facility] [place] [facility] [address] [facility] [address] Performing Lab: [place] [facility] [place] [facility] [address] [facility] [address] WBC 9.13 4.50-11.00 RBC 4.34 4.23-5.66 HGB 14.1 12.8-17 HCT 40.4 39.2-50.4 MCV 93.1 82-99 MCHC 34.9 30.8-35.1 PLT 188 140-360 RDW-CV 11.6 L 12.0-16.0 MCH 32.5 26.2-32.6 Mar 23, 2022 12:22 [facility] MAGNESIUM Specimen Typ e: SERUM PM [place] [facility] No comment enter ed. Ordering Provid er: BALTAZAR SWANSON Report Released Date/Time: Feb 04, 2022 11:15 AM Reporting Lab: [facility] [place] [facility] [address] [facility] [address] Performing Lab: [place] [facility] [place] [facility] [address] [facility] [address] MAGNESIUM 1.6 1.6-2.6 Mar 23, 2022 [facility] BASIC METABOLIC Specimen Type: SERUM 12:22 PM [facility] PANEL (fasting) No comment enter ed. Ordering Provid er: BALTAZAR SWANSON Report Released Date/Time: Feb 04, 2022 11:15 AM Reporting Lab: [place] [facility] [place] [facility] [address] [facility] [address] Performing Lab: [place] [facility] [facility] [address] [facility] [address] UREA NITROGEN 23 7-25 GLUCOSE 211 H 65-100 SODIUM 135 135-145 POTASSIUM 4.9 3.5-5.0 CHLORIDE 100 100-110 CO2 25 20-30 CREATININE, Serum 1.14 0.50-1.40 eGFR(CKD-EPI 2020) 72 >60 Mar 23, 2022 12:22 PM [place] [facility] [place] TSH Specimen Type: SERUM HCS No comment enter ed. Ordering Provid er: BALTAZAR SWANSON Report Released Date/Time: Feb 04, 2022 11:15 AM Reporting Lab: [place] [facility] [facility] [address] [facility] [address] Performing Lab: [place] [facility] [address] [facility] [address] TSH 1.41 0.35-5.00 Advance Directives: All historical and current Section Date Range: From patient's date of to the date document was created. This section includes ALL of a patient's completed or amended [place] Advance and Rescinded Directives. The entries below indicate that a directive exists for the patient, but an actual copy is not included with this document. The data comes from all [place] facilities. Date Advance Directives Provider Source Sep 06, 2007 ADVANCE DIRECTIVE ROBERTO FONTENOT [place] [facility] [place] [facility]
--- OUTSIDE RECORDS SUMMARY | 2022-09-09 17:35 | XMS_ITS | Encounter Summary ---
:1960 Author Organization Department [facility] rs Address [address] [place] [address] Support Name Relationship Address Phone MR MRS NERI KENNEDY Unavailable [address] [place] [address] MR MRS NERI KENNEDY Unavailable [address] [phone] [place] [address] Insurance Providers: All historical and current Section [...] Number Crowell [employer] MEDICARE MCR Oct 21, [id number] TREVOR LEMUS PATIENT CARE ADVANTAGE (WNR) [id number] [facility] (WNR) MEDICAID MEDICAID [facility] Aug 23, [facility] [id number] [phone] [facility] [id number] FFREY [facility] MEDICARE MEDICARE PART Nov 21, PART A [id number] [phone] TREVOR KENNEDY PATIENT (WNR) (M) A 2002A 00 FFREY MEDICARE MEDICARE PART Nov 21, PART B [id number] [phone] TREVOR KENNEDY PATIENT (WNR) (M) B 2002A 00 FFRE[facility] MEDICARE MEDICARE PART Nov 21, PART A [id number] [phone] TREVOR KENNEDY PATIENT (WNR) (M) A 2002A FFREY MEDICARE MEDICARE PART Nov 21, PART B [id number] [phone] TREVOR KENNEDY PATIENT (WNR) (M) B 2002 27A 4 FFREY Selected Encounter This section includes the information on record at [place] for the Encounter. Date/Time Encounter Type Encounter Description Reason Provider Source Feb 20, 2022 12:00 Outpatient Encounter [facility] CONSULT IHE Encounter Template Text not used by [place] Plan of Treatment: Future Appointments (+ 6 months) and Future Tests (+/- 45 days) The Plan of Treatment section includes future care activities for the patient from all [place] [facility]. This section includes future appointments and future orders which are active, pending orscheduled.Future Appointments This section includes appointments that were scheduled to occur 6 months from the date of the Encounter, up to a maximum of 20 appointments. The data comes from all [facility]. Appointment Date/Time Appointment Type Appointment Facili ty Name Mar 23, 2022 11:30 [facility] Mar 25, 2022 08:00 [facility] Apr 09, 2022 09:00 AM [facility] May 18, 2022 08:30 AM [facility] Active, Pending, and Scheduled Orders This section includes a listing of several types of active, pending, and scheduled orders, including clinic medications orders, diagnostic test orders, procedure orders and consult orders; where the start date of the order is 45 days before the date of the Encounter or 45 days after the date of the Encounter. The data comes from all [place] treatment [facility]. Test Date/Time Test Type Test Details Facility Name Mar 23, 2022 12:00 AM Laboratory - Chemistry URINALYSIS URINE SP Order Mar 23, 2022 12:00 AM Laboratory - Chemistry MICROALBUMIN CREATI NINE Order RATIO PANEL URINE (RANDOM) SP Social History: Smoking Status (Most current) and [...] AM VA-TOBACCO FORMER USER [facility] Tobacco Use History This section includes a history of the smoking, or tobacco- related health factors, that were collected on or before the date of the Encounter. The data comes from the [place] facility where the Encounter took place. Date/Time Smoking Status/Tobacco Comment Facility Use Feb 16, 2022 10:00 VA-TOBACCO QUIT 15 YRS [facility] AM OR MORE [place] [facility] Feb 04, 2021 11:00 VA-TOBACCO NEVER USED [facility] AM [place] [facility] Feb 04, 2021 11:00 VA-TOBACCO USE DECLINED [facility] T[facility] AM TO ANSWER [place] [facility] May 08, 2019 11:06 VA-TOBACCO FORMER USER [facility] AM [place] [facility] May 08, 2019 11:06 VA-TOBACCO QUIT 15 YRS [facility] AM OR MORE [place] [facility] Oct 26, 2018 11:33 VA-TOBACCO NEVER USED [facility] [place] [facility] Oct 21, 2017 09:29 QUIT TOBACCO USE > 7 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, 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 [facility] Dec 06, 2015 09:59 QUIT TOBACCO USE IN PAST [facility] C N[facility]L [facility] AM YEAR [facility] Dec 05, 2014 02:31 TOBACCO INPATIENT NO USE [facility] PM 30 DAYS [place] [facility] Dec 05, 2014 01:37 LIFETIME NON-TOBACCO [facility] PM USER [facility] Nov 03, 2014 01:14 TOBACCO INPATIENT NO USE [facility] PM 30 DAYS [place] [facility] Nov 02, 2014 10:36 TOBACCO INPATIENT NO USE [facility] AM 30 DAYS [place] [facility] Oct 06, 2003 03:47 QUIT TOBACCO USE > 7 [facility] AM YEARS AGO [facility] Advance Directives: All historical and current [...] Sep 06, 2007 ADVANCE DIRECTIVE ROBERTO FONTENOT [place] [facility] [facility] Encounter Notes: All associated encounter notes This section contains the clinical notes associated to the Encounter. Date/Time Encounter Note(s) Provider Source Feb 20, 2022 12:00 AM NONVA CONSULT: [facility] LOCAL TITLE: COMMUNITY CARE-CONSULT RESULT NOTE [facility] STANDARD TITLE: NONVA CONSULT DATE OF NOTE: FEB 20, 2022 ENTRY DATE: APR 17 022@15:16:08 AUTHOR: BRICE MA EXP COSIGNER: URGENCY: STATUS: COMPLETED VistA Imaging - Scanned Document SCANNED DOCUMENT SIGNATURE NOT REQUIRED Electronically Filed: 04/17/2022 by: BRICE MA
--- OUTSIDE RECORDS SUMMARY | 2022-09-09 17:35 | XMS_ITS | Encounter Summary ---
:1960 Author Organization Department [facility] rs Address [address] [place] [id number] Support Name Relationship Address Phone MR MRS NERI KENNEDY Unavailable [address] [place] [address] MR MRS NERI KENNEDY Unavailable [address] [place] [address] Insurance Providers: All historical and current Section [...] Number [employer]IC[employer] MCR Oct 21, [id number] [phone] RONNY TREVOR HERNANDEZ PATIENT TH CARE ADVANTAGE (WNR) [phone] [facility] (WNR) MEDICAID MEDICAID [facility] Aug 23, [facility] [id number] [phone] [facility] [id number] [facility] MED[facility] PART Nov 21, PART A [id number] [phone] TREVOR KENNEDY PATIENT (WNR) (M) A 2002A 00 FFRE[facility] MEDICARE MEDICARE PART Nov 21, PART B [id number] [phone] TREVOR KENNEDY PATIENT (WNR) (M) B 2002A 00 [facility] Nov 21, PART A [id number] [phone] TREVOR KENNEDY PATIENT (WNR) (M) A 2002A [facility] MEDICARE MEDICARE PART Nov 21, PART B [id number] [phone] TREVOR KENNEDY PATIENT (WNR) (M) B 2002 [id number] [id number] FFREY Selected Encounter This section includes the information on record at [place] for the Encounter. Date/Time Encounter Type Encounter Description Reason Provider Source Mar 27, 2022 12:00 Outpatient Encounter EVENT (HISTORICAL) AM IHE Encounter Template Text not used by [place] Plan of Treatment: Future Appointments (+ 6 months) and Future Tests (+/- 45 days) The Plan of Treatment section includes future care activities for the patient from [facility] [place] [facility] This section includes future appointments and future orders which are active, pending orscheduled.Future Appointments This section includes appointments that were scheduled to occur 6 months from the date of the Encounter, up to a maximum of 20 appointments. The data comes from all [facility]. Appointment Date/Time Appointment Type Appointment Facili ty Name Apr 09, 2022 09:00 AM AMBULATORY MEDICINE [facility] May 18, 2022 08:30 AM [facility] Aug 31, 2022 10:00 AM [facility] Sep 18, 2022 10:00 [facility] Active, Pending, and Scheduled Orders This section includes a listing of several types of active, pending, and scheduled orders, including clinic medications orders, diagnostic test orders, procedure orders and consult orders; where the start date of the order is 45 days before the date of the Encounter or 45 days after the date of the Encounter. The data comes from all [facility]. Test Date/Time Test Type Test Details Facility Name Mar 23, 2022 12:00 AM Laboratory - Chemistry URINALYSIS URINE SP Order Mar 23, 2022 12:00 AM Laboratory - Chemistry MICROALBUMIN CREATI NINE Order RATIO PANEL URINE (RANDOM) SP Lab Results: +/- 30 days of the encounter This section includes the Chemistry and Hematology Lab Results on record with [place] for the patient. Radiology Reports and Pathology Reports are provided separately, in subsequent sections.Lab Results This section contains the Chemistry/Hematology Results that were resulted 30 days before or 30 daysafter the date of the Encounter. Date/Time Source Result Type Result - Unit Interpretation Reference Range Comment Mar 23, [facility] VITAMIN D Specimen Type: SERUM 2021 [facility] Comment: Vitami n D, 25-Hydroxy reports [...] 2011;96(7):1911-30. For additional information, please refer to http://education.MiaSolé/faq/LNY692 (This link is being p rovided for info rmational/ educational purposes only.) This test was developed and its analytical performance characteristics have been determined by [employer] [place], [place]. I t has not been c leared or approved by the U.S. Food and Drug Administration. This assay has been validated pursuant to the CLIA regulations and is used for clinical purposes. This test was developed and its analytical performance characteristics have been determined by [employer] [place], [place]. It has not been cleared or approved by the U.S. Food and Drug Administration. This assay has been v alidated pursuant to the CLIA regulations and is used for clinical purposes. Test Performed by [employer], [employer] [place], [address] [place] [address] Eric Murguia M.D., Ph.D., Director of Laboratories , CLIA [id number] TEST PERFORMED AT: , Ordering Provid er: BALTAZAR SWANSON Report Released Date/Time: Feb 04, 2022 11:15 AM Reporting Lab: [facility] [address] [facility] [address] Performing Lab: [facility] [address] [place] [address] VITAMIN D, 25-OH, TOTAL 38 30-100 VITAMIN D, 25-OH, D3 38 VITAMIN D, 25-OH, D2 <4 Mar 23, 2022 [place] [facility] PT & INR (COUMADIN) Specimen Ty pe: PLASMA 12:22 PM [facility] No comment enter ed. Ordering Provid er: BALTAZAR SWANSON Report Released Date/Time: Feb 04, 2022 11:15 AM Reporting Lab: [facility] [address] [facility] [address] Performing Lab: [facility] [address] [facility] [address] INR 1.3 PROTIME 14.7 H 10.0-13.1 Mar 23, 2022 12:22 [facility] MAGNESIUM Specimen Typ e: SERUM PM [facility] No comment enter ed. Ordering Provid er: BALTAZAR SWANSON Report Released Date/Time: Feb 04, 2022 11:15 AM Reporting Lab: [facility] [address] [facility] [address] Performing Lab: [facility] [address] [facility] [address] MAGNESIUM 1.6 1.6-2.6 Mar 23, 2022 [facility] HEMOGLOBIN A1C Specimen Type: BLOOD 12:22 PM [facility] PANEL Comment: Values obtained from [...] AM Reporting Lab: [facility] [place] [facility] [address] [facility] [address] Performing Lab: [facility] [place] [facility] [address] [facility] [address] HEMOGLOBIN A1C 8.1 H 4.0-5.6 Mar 23, 2022 12:22 [facility] LIVER FUNCTION Specimen Typ e: SERUM PM [place] [facility] No comment enter ed. Ordering Provid er: BALTAZAR SWANSON Report Released Date/Time: Feb 04, 2022 11:15 AM Reporting Lab: [place] [facility] [facility] [address] [facility] [address] Performing Lab: [place] [facility] [facility] [address] [facility] [address] PROTEIN,TOTAL 7.4 6.0-8.3 ALBUMIN 4.1 3.5-5.0 ALKALINE PHOSPHATASE 80 40-150 AST 20 5-34 ALT 26 <6-55 BILIRUBIN, TOTAL 0.5 0.2-1.2 Mar 23, 2022 12:22 PM [facility] [place] CBC Specimen Type: BLOOD HCS No comment enter ed. Ordering Provid er: BALTAZAR SWANSON Report Released Date/Time: Feb 04, 2022 11:15 AM Reporting Lab: [facility] [place] [facility] [address] [facility] [address] Performing Lab: [place] [facility] [facility] [address] [facility] [address] WBC 9.13 4.50-11.00 RBC 4.34 4.23-5.66 HGB 14.1 12.8-17 HCT 40.4 39.2-50.4 MCV 93.1 82-99 MCHC 34.9 30.8-35.1 PLT 188 140-360 RDW-CV 11.6 L 12.0-16.0 MCH 32.5 26.2-32.6 Mar 23, 2022 12:22 PM [facility] [place] TSH Specimen Type: SERUM [facility] No comment enter ed. Ordering Provid er: BALTAZAR SWANSON Report Released Date/Time: Feb 04, 2022 11:15 AM Reporting Lab: [place] [facility] [place] [facility] [address] [facility] [address] Performing Lab: [facility] [place] [facility] [address] [facility] [address] TSH 1.41 0.35-5.00 Mar 23, 2022 [facility] BASIC METABOLIC Specimen Type: SERUM 12:22 PM [place] [facility] PANEL (fasting) No comment enter ed. Ordering Provid er: BALTAZAR SWANSON Report Released Date/Time: Feb 04, 2022 11:15 AM Reporting Lab: [place] [facility] [place] [facility] [address] [facility] [address] Performing Lab: [place] [facility] [place] [facility] [address] [facility] [address] UREA NITROGEN 23 7-25 GLUCOSE 211 H 65-100 SODIUM 135 135-145 POTASSIUM 4.9 3.5-5.0 CHLORIDE 100 100-110 CO2 25 20-30 CREATININE, Serum 1.14 0.50-1.40 eGFR(CKD-EPI 2020) 72 >60 Social History: Smoking Status (Most current) and Tobacco Use (All prior to encounter date) This section includes the most current, and the historical, smoking and tobacco-related health factors from the [place] facility where the Encounter took place.Current Smoking Status This section includes the most current smoking, or tobacco-related health factor, from the [place] facility where the Encounter took place. Date/Time Current Smoking Status Comment Facility Feb 16, 2022 10:00 AM VA-TOBACCO FORMER USER [place] [facility] [facility] Tobacco Use History This section includes a history of the smoking, or tobacco- related health factors, that were collected on or before the date of the Encounter. The data comes from the [place] facility where the Encounter took place. Date/Time Smoking Status/Tobacco Comment Facility Use Feb 16, 2022 10:00 VA-TOBACCO QUIT 15 YRS [facility] CNT [facility] AM OR MORE [place] [facility] Feb 04, 2021 11:00 VA-TOBACCO NEVER USED [place] [facility] [place] [facility] Feb 04, 2021 11:00 VA-TOBACCO USE DECLINED [facility] CN TRL [facility] AM TO ANSWER [place] [facility] May 08, 2019 11:06 VA-TOBACCO FORMER USER [place] [facility] [place] [facility] May 08, 2019 11:06 VA-TOBACCO QUIT 15 YRS [facility] Oct 26, 2018 11:33 VA-TOBACCO NEVER USED [place] [facility] [place] [facility] Oct 21, 2017 09:29 QUIT TOBACCO USE > 7 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, 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 [facility] Dec 06, 2015 09:59 QUIT TOBACCO USE IN PAST [place] C NTRL WSTR[facility] AM YE[facility] Dec 05, 2014 02:31 TOBACCO INPATIENT NO USE [facility] PM [address] [facility] Dec 05, 2014 01:37 LIFETIME NON-TOBACCO [facility] PM USER [facility] Nov 03, 2014 01:14 TOBACCO INPATIENT NO USE [facility] PM [address] [facility] Nov 02, 2014 10:36 TOBACCO INPATIENT NO USE [place] [facility] AM [address] [place] [facility] Oct 06, 2003 03:47 QUIT TOBACCO USE > 7 [facility] AM YEARS AGO [facility] Advance Directives: All historical and current Section Date Range: From patient's date of to the date document was created. This section includes ALL of a patient's completed or amended [place] Advance and Rescinded Directives. The entries below indicate that a directive exists for the patient, but an actual copy is not included with this document. The data comes from all [place] facilities. Date Advance Directives Provider Source Sep 06, 2007 ADVANCE DIRECTIVE ROBERTO FONTENOT [place] [facility] [place] [facility] Encounter Notes: All associated encounter notes This section contains the clinical notes associated to the Encounter. Date/Time Encounter Note(s) Provider Source Mar 27, 2022 12:00 AM NONVA NOTE: [place] [facility] LOCAL TITLE: NON-VA OUTPATIENT NOTES [facility] STANDARD TITLE: NONVA NOTE DATE OF NOTE: MAR 27, 2022 ENTRY DATE: APR 30 022@15:30:54 AUTHOR: IHSAN UREÑA EXP COSIGNER: URGENCY: STATUS: COMPLETED VistA Imaging - Scanned Document SCANNED DOCUMENT SIGNATURE NOT REQUIRED Electronically Filed: 04/30/2022 by: IHSAN UREÑA DIESEL ENGINE ENGINEER
--- OUTSIDE RECORDS SUMMARY | 2022-09-09 17:36 | XMS_ITS | Encounter Summary ---
:1960 Author Organization Department [facility] rs Address [address] [place] [id number] Support Name Relationship Address Phone MR MRS NERI KENNEDY Unavailable [address] [place] [address] MR MRS NERI KENNEDY Unavailable [address] [place] [address] Insurance Providers: All historical and current Section [...] Number Crowell [employer] MEDICARE MCR Oct 21, [id number] TREVOR LEMUS PATIENT CARE ADVANTAGE (WNR) [id number] [facility] MEDICAID [facility] Aug 23, [facility] [id number] [phone] T[facility]OR TRINH [facility] D [id number] [facility] PART Nov 21, PART A [id number] [phone] TREVOR KENNEDY PATIENT (WNR) (M) A 2002A 00 FFREY MEDICARE MEDICARE PART Nov 21, PART B [id number] [phone] TREVOR KENNEDY PATIENT (WNR) (M) B 2002A FFREY MEDICARE MEDICARE PART Nov 21, PART A [id number] TREVOR KENNDEY PATIENT (WNR) (M) A 2002A FFREY MEDICARE MEDICARE PART Nov 21, PART B [id number] [id number] TREVOR KENNEDY PATIENT (WNR) (M) B 2002 27A 4 FFREY Selected Encounter This section includes the information on record at PR for the Encounter. Date/Time Encounter Type Encounter Description Reason Provider Source Mar 24, 2022 12:00 Outpatient Encounter [facility] AM CONSULT IHE Encounter Template Text not used by PR Plan of Treatment: Future Appointments (+ 6 months) and Future Tests (+/- 45 days) The Plan of Treatment section includes future care activities for the patient from all [place] [facility]. This section includes future appointments and future orders which are active, pending orscheduled.Future Appointments This section includes appointments that were scheduled to occur 6 months from the date of the Encounter, up to a maximum of 20 appointments. The data comes from all [facility]. Appointment Date/Time Appointment Type Appointment Facili ty Name Mar 25, 2022 08:00 AM [facility] Apr 09, 2022 09:00 [facility] May 18, 2022 08:30 AM [facility] [place] [facility] Aug 31, 2022 10:00 AM [facility]ORY [facility] W [facility] Sep 18, 2022 10:00 AM [facility] Active, Pending, and Scheduled Orders This section includes a listing of several types of active, pending, and scheduled orders, including clinic medications orders, diagnostic test orders, procedure orders and consult orders; where the start date of the order is 45 days before the date of the Encounter or 45 days after the date of the Encounter. The data comes from all [facility]. Test Date/Time Test Type Test Details Facility Name Mar 23, 2022 12:00 AM Laboratory - Chemistry URINALYSIS URINE SP Order Mar 23, 2022 12:00 AM Laboratory - Chemistry MICROALBUMIN CREATI NINE Order RATIO PANEL URINE (RANDOM) SP Lab Results: +/- 30 days of the encounter This section includes the Chemistry and Hematology Lab Results on record with PR for the patient. Radiology Reports and Pathology Reports are provided separately, in subsequent sections.Lab Results This section contains the Chemistry/Hematology Results that were resulted 30 days before or 30 daysafter the date of the Encounter. Date/Time Source Result Type Result - Unit Interpretation Reference Range Comment Mar 23, [facility] VITAMIN D Specimen [...] 2011;96(7):1911-30. For additional information, please refer to http://education.Family-Mingle/faq/ZTX321 (This link is being p rovided for info rmational/ educational purposes only.) This test was developed and its analytical performance characteristics have been determined by [employer] [place]. I t has not been c leared or approved by the U.S. Food and Drug Administration. This assay has been validated pursuant to the CLIA regulations and is used for clinical purposes. This test was developed and its analytical performance characteristics have been determined by [employer] [place]. It has not been cleared or approved by the U.S. Food and Drug Administration. This assay has been v alidated pursuant to the CLIA regulations and is used for clinical purposes. Test Performed by [facility], [place] [place], [address] [place] [address] Eric Murguia M.D., Ph.D., Director of Laboratories , CLIA [id number] TEST PERFORMED AT: , Ordering Provid er: BALTAZAR SWANSON Report Released Date/Time: Feb 04, 2022 11:15 AM Reporting Lab: [facility] [address] [facility] [address] Performing Lab: [facility] [address] [place] [address] VITAMIN D, 25-OH, TOTAL 38 30-100 VITAMIN D, 25-OH, D3 38 VITAMIN D, 25-OH, D2 <4 Mar 23, 2022 [facility] HEMOGLOBIN A1C Specimen Type: BLOOD 12:22 PM [facility] PANEL Comment: Values obtained from [...] Feb 04, 2022 11:15 AM Reporting Lab: [facility] [address] [facility] [address] Performing Lab: [facility] [address] [facility] [address] HEMOGLOBIN A1C 8.1 H 4.0-5.6 Mar 23, 2022 [facility] PT & INR (COUMADIN) Specimen Ty pe: PLASMA 12:22 PM [facility] No comment enter ed. Ordering Provid er: BALTAZAR SWANSON Report Released Date/Time: Feb 04, 2022 11:15 AM Reporting Lab: [facility] [address] [facility] [address] Performing Lab: [facility] [address] [facility] [address] INR 1.3 PROTIME 14.7 H 10.0-13.1 Mar 23, 2022 12:22 [facility] LIVER FUNCTION Specimen Typ e: SERUM PM [facility] No comment enter ed. Ordering Provid er: BALTAZAR SWANSON Report Released Date/Time: Feb 04, 2022 11:15 AM Reporting Lab: [facility] [place] [facility] [address] [facility] [address] Performing Lab: [place] [facility] [place] [facility] [address] [facility] [address] PROTEIN,TOTAL 7.4 6.0-8.3 ALBUMIN 4.1 3.5-5.0 ALKALINE PHOSPHATASE 80 40-150 AST 20 5-34 ALT 26 <6-55 BILIRUBIN, TOTAL 0.5 0.2-1.2 Mar 23, 2022 12:22 PM [facility] [place] CBC Specimen Type: BLOOD [facility] No comment enter ed. Ordering Provid er: BALTAZAR SWANSON Report Released Date/Time: Feb 04, 2022 11:15 AM Reporting Lab: [facility] [place] [facility] [address] [facility] [address] Performing Lab: [facility] [place] [facility] [address] [facility] [address] WBC 9.13 4.50-11.00 RBC 4.34 4.23-5.66 HGB 14.1 12.8-17 HCT 40.4 39.2-50.4 MCV 93.1 82-99 MCHC 34.9 30.8-35.1 PLT 188 140-360 RDW-CV 11.6 L 12.0-16.0 MCH 32.5 26.2-32.6 Mar 23, 2022 12:22 [facility] MAGNESIUM Specimen Typ e: SERUM PM [place] [facility] No comment enter ed. Ordering Provid er: BALTAZAR SWANSON Report Released Date/Time: Feb 04, 2022 11:15 AM Reporting Lab: [facility] [place] [facility] [address] [facility] [address] Performing Lab: [facility] [place] [facility] [address] [facility] [address] MAGNESIUM 1.6 1.6-2.6 Mar 23, 2022 12:22 PM [facility] [place] TSH Specimen Type: SERUM [facility] No comment enter ed. Ordering Provid er: BALTAZAR SWANSON Report Released Date/Time: Feb 04, 2022 11:15 AM Reporting Lab: [facility] [place] [facility] [address] [facility] [address] Performing Lab: [facility] [place] [facility] [address] [facility] [address] TSH 1.41 0.35-5.00 Mar 23, 2022 [facility] BASIC METABOLIC Specimen Type: SERUM 12:22 PM [place] [facility] PANEL (fasting) No comment enter ed. Ordering Provid er: BALTAZAR SWANSON Report Released Date/Time: Feb 04, 2022 11:15 AM Reporting Lab: [facility] [place] [facility] [address] [facility] [address] Performing Lab: [facility] [place] [facility] [address] [facility] [address] UREA NITROGEN 23 7-25 GLUCOSE 211 H 65-100 SODIUM 135 135-145 POTASSIUM 4.9 3.5-5.0 CHLORIDE 100 100-110 CO2 25 20-30 CREATININE, Serum 1.14 0.50-1.40 eGFR(CKD-EPI 2020) 72 >60 Social History: Smoking Status (Most current) and Tobacco Use (All prior to encounter date) This section includes the most current, and the historical, smoking and tobacco-related health factors from the PR facility where the Encounter took place.Current Smoking Status This section includes the most current smoking, or tobacco-related health factor, from the PR facility where the Encounter took place. Date/Time Current Smoking Status Comment Facility Feb 16, 2022 10:00 AM VA-TOBACCO FORMER USER [facility] [place] [facility] Tobacco Use History This section includes a history of the smoking, or tobacco- related health factors, that were collected on or before the date of the Encounter. The data comes from the PR facility where the Encounter took place. Date/Time Smoking Status/Tobacco Comment Facility Use Feb 16, 2022 10:00 VA-TOBACCO QUIT 15 YRS [facility] CNT [facility] AM OR MORE [place] [facility] Feb 04, 2021 11:00 VA-TOBACCO NEVER USED [facility] AM [place] [facility] Feb 04, 2021 11:00 VA-TOBACCO USE DECLINED VA CN TRL WSTRN AM TO ANSWER [facility] May 08, 2019 11:06 VA-TOBACCO FORMER USER [facility] May 08, 2019 11:06 VA-TOBACCO QUIT 15 YRS VA [facility] RL [facility] AM OR MORE [facility] Oct 26, 2018 11:33 VA-TOBACCO NEVER USED [facility] Oct 21, 2017 09:29 QUIT TOBACCO USE > 7 VA CN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, cigarettes [facility] Dec 06, 2015 09:59 QUIT TOBACCO USE IN PAST VA C NTRL WSTRN AM YEAR [facility] Dec 05, 2014 02:31 TOBACCO INPATIENT NO USE VA C N[facility]L W[facility] PM 30 DAYS [facility] Dec 05, 2014 01:37 LIFETIME NON-TOBACCO [facility] PM USER [facility] Nov 03, 2014 01:14 TOBACCO INPATIENT NO USE VA C NTRL W[facility]N PM 30 DAYS [facility] Nov 02, 2014 10:36 TOBACCO INPATIENT NO USE VA C NTRL W[facility] AM 30 DAYS [facility] Oct 06, 2003 03:47 QUIT TOBACCO USE > 7 VA CNTRL WSTRN AM YEARS AGO [facility] Advance Directives: All historical and current Section Date Range: From patient's date of to the date document was created. This section includes ALL of a patient's completed or amended PR Advance and Rescinded Directives. The entries below indicate that a directive exists for the patient, but an actual copy is not included with this document. The data comes from all PR facilities. Date Advance Directives Provider Source Sep 06, 2007 ADVANCE DIRECTIVE ROBERTO FONTENOT PR CNTRL WSTR N [facility] Encounter Notes: All associated encounter notes This section contains the clinical notes associated to the Encounter. Date/Time Encounter Note(s) Provider Source Mar 24, 2022 12:00 AM NONVA CONSULT: [facility] LOCAL TITLE: COMMUNITY CARE-CONSULT RESULT NOTE [facility] STANDARD TITLE: NONVA CONSULT DATE OF NOTE: MAR 24, 2022 ENTRY DATE: MAY 11 022@12:25:04 AUTHOR: AMENA CABRERA EXP COSIGNER: URGENCY: STATUS: COMPLETED VistA Imaging - Scanned Document SCANNED DOCUMENT SIGNATURE NOT REQUIRED Electronically Filed: 05/11/2022 by: AMENA CABRERA BAGGAGE PORTER
--- OUTSIDE RECORDS SUMMARY | 2022-09-09 17:37 | XMS_ITS | Encounter Summary ---
:1960 Author Organization [facility] rs Address [address] [place] [address] Support Name Relationship Address Phone MR MRS NERI KENNEDY Unavailable [address] [place] [address] MR MRS NERI KENNEDY Unavailable [address] [phone] 5 [place] [address] Insurance Providers: All historical and current Section [...] Number Crowell [employer] MEDICARE MCR Oct 21, [id number] [phone] TREOVR LEMUS PATIENT CARE ADVANTAGE (WNR) [id number] [facility] (WNR) MEDICAID MEDICAID [facility] Aug 23, [facility] [id number] [phone] TREVOR TRINH PATIENT [facility] 2014 D [id number] [facility] MEDICARE PART Nov 21, PART B [id number] [phone] TREVOR KENNEDY PATIENT (WNR) (M) B 2002A 00 FFREY MEDICARE MEDICARE PART Nov 21, PART A [id number] [phone] TREVOR KENNEDY PATIENT (WNR) (M) A 2002A 00 FFREY MEDICARE MEDICARE PART Nov 21, PART A [id number] TREVOR KENNEDY PATIENT (WNR) (M) A 2002A FFREY MEDICARE MEDICARE PART Nov 21, PART B [id number] [id number] TREVOR KENNEDY PATIENT (WNR) (M) B 2002 27A 4 FFREY Selected Encounter This section includes the information on record at AL for the Encounter. Date/Time Encounter Type Encounter Description Reason Provider Source May 21, 2022 11:14 Outpatient Encounter TELEPHONE/REHAB AND AM SUPPORT IHE Encounter Template Text not used by AL Plan of Treatment: Future Appointments (+ 6 months) and Future Tests (+/- 45 days) The Plan of Treatment section includes future care activities for the patient from [facility] This section includes future appointments and future orders which are active, pending orscheduled.Future Appointments This section includes appointments that were scheduled to occur 6 months from the date of the Encounter, up to a maximum of 20 appointments. The data comes from all [facility]. Appointment Date/Time Appointment Type Appointment Facili ty Name Aug 31, 2022 10:00 AM AMBULATORY - REHAB MEDICINE [facility] Sep 18, 2022 10:00 AM AMBULATORY - REHAB MEDICINE [facility] Active, Pending, and Scheduled Orders This section includes a listing of several types of active, pending, and scheduled orders, including clinic medications orders, diagnostic test orders, procedure orders and consult orders; where the start date of the order is 45 days before the date of the Encounter or 45 days after the date of the Encounter. The data comes from all [facility]. Test Date/Time Test Type Test Details Facility Name Jun 16, 2022 12:54 PM Consult Order PHYSICAL THERAPY/[facility] OUTPT Cons [facility] Choice Social History: Smoking Status (Most current) and Tobacco Use (All prior to encounter date) This section includes the most current, and the historical, smoking and tobacco-related health factors from the AL facility where the Encounter took place.Current Smoking Status This section includes the most current smoking, or tobacco-related health factor, from the AL facility where the Encounter took place. Date/Time Current Smoking Status [facility] Facility Feb 16, 2022 10:00 AM AL-TOBACCO FORMER USER [facility] Tobacco Use History This section includes a history of the smoking, or tobacco- related health factors, that were collected on or before the date of the Encounter. The data comes from the AL facility where the Encounter took place. Date/Time Smoking Status/Tobacco Comment Facility Use Feb 16, 2022 10:00 VA-TOBACCO QUIT 15 YRS VA [facility] RL [facility] AM OR MORE [place] [facility] Feb 04, 2021 11:00 VA-TOBACCO NEVER USED [facility] CN[facility] L [facility] AM [place] [facility] Feb 04, 2021 11:00 VA-TOBACCO USE DECLINED VA CN TRL WSTRN AM [facility] May 08, 2019 11:06 VA-TOBACCO FORMER USER VA [facility] RL [facility] AM [place] [facility] May 08, 2019 11:06 VA-TOBACCO QUIT 15 YRS VA CNT RL [facility] AM OR MORE [place] [facility] Oct 26, 2018 11:33 VA-TOBACCO NEVER USED VA [facility] L [facility] AM [place] [facility] Oct 21, 2017 09:29 QUIT TOBACCO USE > 7 VA CNTRL 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, cigarettes [facility] Dec 06, 2015 09:59 QUIT TOBACCO USE IN PAST VA C NTRL W[facility]N AM YEAR [facility] Dec 05, 2014 02:31 TOBACCO INPATIENT NO USE VA C N[facility]L [facility] PM 30 DAYS [place] [facility] Dec 05, 2014 01:37 LIFETIME NON-TOBACCO [facility] PM USER [facility] Nov 03, 2014 01:14 TOBACCO INPATIENT NO USE VA C NTRL [facility] PM 30 DAYS [place] [facility] Nov 02, 2014 10:36 TOBACCO INPATIENT NO USE VA C [facility] AM 30 [facility] Oct 06, 2003 03:47 QUIT TOBACCO USE > 7 VA CNTRL W[facility]N AM YEARS AGO [facility] Advance Directives: All historical and current Section Date Range: From patient's date of to the date document was created. This section includes ALL of a patient's completed or amended AL Advance and Rescinded Directives. The entries below indicate that a directive exists for the patient, but an actual copy is not included with this document. The data comes from all AL facilities. Date Advance Directives Provider Source Sep 06, 2007 ADVANCE DIRECTIVE ROBERTO FONTENOT AL CNTRL WSTR N [facility] Encounter Notes: All associated encounter notes This section contains the clinical notes associated to the Encounter. Date/Time Encounter Note(s) Provider Source May 21, 2022 11:14 AM ADMINISTRATIVE NOTE: MIKE GRAJEDA AL CN TRL WSTRN LOCAL TITLE: ADMINISTRATIVE NOTE [place] [facility] STANDARD TITLE: ADMINISTRATIVE NOTE DATE OF NOTE: MAY 21, 2022@11:14 ENTRY DATE: MAY 21, 2022@11:14:13 AUTHOR: MIKE GRAJEDA EXP COSIGNER: URGENCY: STATUS: COMPLETED ADMINISTRATIVE NOTE Has ADDENDA self referred for walker, possibly 2 whe eled. Cancelled appt 05/22/2022, has another appt outs [facility]. Will call back to reschedule. /es/ MIKE GRAJEDA Advanced Shuttle Repairer Signed: 05/21/2022 11:14 Receipt Acknowledged By: 05/21/2022 14:33 /es/ Mayelin Block, P.T.A. 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 He w as seen for a wheelchair only here at the [place]. This vet brynn f-referred himself for a walker. Called vet and LVM to call this designer writer back. He may need to be eval uated by a PT first. /es/ Mayelin Block, P.T.A. DISTRIBUTOR ADVERTISING MATERIAL Signed: 05/21/2022 14:33 /es/ Delores Mcclendon PT,DPT PHYSICAL THERAPIST Cosigned: 05/21/2022 15:44 06/16/2022 ADDENDUM STATUS: COMPLETED [place] victorina into the PT clinic requesting the status of his request for a walker . AMSA read the stat ement from the PT provider. than asked this AMSA, to contact his [facility] re uesting a PT consult. Please submit a PT consult on the [place]'s behalf for PT services. He can be reached at , if you have further questions. /es/ ALVA ODOM ADVANCED TAPER/FINISHER Signed: 06/16/2022 11:34 Receipt Acknowledged By: * AWAITING SIGNATURE * BALTAZAR SWANSON
--- OUTSIDE RECORDS SUMMARY | 2022-09-09 17:37 | XMS_ITS | Encounter Summary ---
:1960 Author Organization Department [facility] rs Address [address] [place] [id number] Support Name Relationship Address Phone MR MRS NERI KENNEDY Unavailable [address] [place] [address] MR MRS NERI KENNEDY Unavailable [address] [phone] 5 [place] [address] Insurance Providers: All historical and current Section [...] Number Crowell [employer]AL MEDICARE MCR Oct 21, [id number] TRVEOR LEMUS PATIENT CARE ADVANTAGE (WNR) [id number] [facility] (WNR) MEDICAID MEDICAID [facility] Aug 23, [facility] [id number] [phone] [facility]RE[facility]OR [facility]INH [facility] D [id number] [facility] MEDIC[facility] PART Nov 21, PART A [id number] [phone] TREVOR KENNEDY PATIENT (WNR) (M) A 2002A 00 FFREY MEDICARE MEDICARE PART Nov 21, PART B [id number] [phone] TREVOR KENNEDY PATIENT (WNR) (M) B 2002A FFREY MEDICARE MEDICARE PART Nov 21, PART A [id number] TREVOR KENNEDY PATIENT (WNR) (M) A 2002A FFREY MEDICARE MEDICARE PART Nov 21, PART B [id number] TREVOR KENNEDY PATIENT (WNR) (M) B 2002 27A 4 FFREY Selected Encounter This section includes the information on record at [place] for the Encounter. Date/Time Encounter Type Encounter Description Reason Provider Source Mar 27, 2022 12:00 Outpatient Encounter [facility] AM CONSULT IHE Encounter Template Text not used by [place] Plan of Treatment: Future Appointments (+ 6 months) and Future Tests (+/- 45 days) The Plan of Treatment section includes future care activities for the patient from all [place] [facility]. This section includes future appointments and future orders which are active, pending orscheduled.Future Appointments This section includes appointments that were scheduled to occur 6 months from the date of the Encounter, up to a maximum of 20 appointments. The data comes from all [facility]. Appointment Date/Time Appointment Type Appointment Facili ty Name Apr 09, 2022 09:00 AM AMBULATORY MEDICINE [facility] May 18, 2022 08:30 AM [facility] Aug 31, 2022 10:00 AM AMBULATORY - REHAB [facility] Sep 18, 2022 10:00 AM AMBULATORY [facility] Active, Pending, and Scheduled Orders This section includes a listing of several types of active, pending, and scheduled orders, including clinic medications orders, diagnostic test orders, procedure orders and consult orders; where the start date of the order is 45 days before the date of the Encounter or 45 days after the date of the Encounter. The data comes from all [facility]. Test Date/Time Test Type Test Details Facility Name Mar 23, 2022 12:00 AM Laboratory - Chemistry URINALYSIS URINE SP Order Mar 23, 2022 12:00 AM Laboratory - Chemistry MICROALBUMIN CREATI NINE Order RATIO PANEL URINE (RANDOM) SP Lab Results: +/- 30 days of the encounter This section includes the Chemistry and Hematology Lab Results on record with [place] for the patient. Radiology Reports and Pathology Reports are provided separately, in subsequent sections.Lab Results This section contains the Chemistry/Hematology Results that were resulted 30 days before or 30 daysafter the date of the Encounter. Date/Time Source Result Type Result - Unit Interpretation Reference Range Comment Mar 23, [facility] VITAMIN D Specimen Type: SERUM 2021 [place] [...] 2011;96(7):1911-30. For additional information, please refer to http://education.Happy Elements.[employer]/faq/QGX379 (This link is being p rovided for info rmational/ educational purposes only.) This test was developed and its analytical performance characteristics have been determined by [employer] [place], [place]. I t has not been c leared or approved by the U.S. Food and Drug Administration. This assay has been validated pursuant to the CLIA regulations and is used for clinical purposes. This test was developed and its analytical performance characteristics have been determined by [employer] [place], [place]. It has not been cleared or approved by the U.S. Food and Drug Administration. This assay has been v alidated pursuant to the CLIA regulations and is used for clinical purposes. Test Performed by [facility] [place] [place], [address] [place] [address] Eric Murguia M.D., Ph.D., Director of Laboratories , CLIA [id number] TEST PERFORMED AT: , Ordering Provid er: BALTAZAR SWANSON Report Released Date/Time: Feb 04, 2022 11:15 AM Reporting Lab: [facility] [address] [address] Performing Lab: [facility] [address] [place] [address] VITAMIN D, 25-OH, TOTAL 38 30-100 VITAMIN D, 25-OH, D3 38 VITAMIN D, 25-OH, D2 <4 Mar 23, 2022 [place] CNTR [facility] PT & INR (COUMADIN) Specimen Ty pe: PLASMA 12:22 PM [facility] No comment enter ed. Ordering Provid er: BALTAZAR SWANSON Report Released Date/Time: Feb 04, 2022 11:15 AM Reporting Lab: [facility] [address] [address] Performing Lab: [facility] [address] [address] INR 1.3 PROTIME 14.7 H 10.0-13.1 Mar 23, 2022 12:22 [facility] MAGNESIUM Specimen Typ e: SERUM PM [facility] No comment enter ed. Ordering Provid er: BALTAZAR SWANSON Report Released Date/Time: Feb 04, 2022 11:15 AM Reporting Lab: [facility] [address] [address] Performing Lab: [facility] [address] [address] MAGNESIUM 1.6 1.6-2.6 Mar 23, 2022 [facility] HEMOGLOBIN A1C Specimen Type: BLOOD 12:22 PM [facility] PANEL Comment: Values obtained from A1C [...] AM Reporting Lab: [place] [facility] [place] [facility] [address] [address] Performing Lab: [facility] [place] [facility] [address] [address] HEMOGLOBIN A1C 8.1 H 4.0-5.6 Mar 23, 2022 12:22 [place] [facility] LIVER FUNCTION Specimen Typ e: SERUM PM [place] [facility] No comment enter ed. Ordering Provid er: BALTAZAR SWANSON Report Released Date/Time: Feb 04, 2022 11:15 AM Reporting Lab: [place] [facility] [facility] [address] [address] Performing Lab: [place] [facility] [facility] [address] [address] PROTEIN,TOTAL 7.4 6.0-8.3 ALBUMIN 4.1 3.5-5.0 ALKALINE PHOSPHATASE 80 40-150 AST 20 5-34 ALT 26 <6-55 BILIRUBIN, TOTAL 0.5 0.2-1.2 Mar 23, 2022 12:22 PM [facility] [place] CBC Specimen Type: BLOOD H[facility] No comment enter ed. Ordering Provid er: BALTAZAR SWANSON Report Released Date/Time: Feb 04, 2022 11:15 AM Reporting Lab: [facility] [place] [facility] [address] [address] Performing Lab: [place] [facility] [address] [address] WBC 9.13 4.50-11.00 RBC 4.34 4.23-5.66 HGB 14.1 12.8-17 HCT 40.4 39.2-50.4 MCV 93.1 82-99 MCHC 34.9 30.8-35.1 PLT 188 140-360 RDW-CV 11.6 L 12.0-16.0 MCH 32.5 26.2-32.6 Mar 23, 2022 12:22 PM [place] [facility] [place] TSH Specimen Type: SERUM H[facility] No comment enter ed. Ordering Provid er: BALTAZAR SWANSON Report Released Date/Time: Feb 04, 2022 11:15 AM Reporting Lab: [place] [facility] [place] [facility] [address] [address] Performing Lab: [place] [facility] [place] [facility] [address] [address] TSH 1.41 0.35-5.00 Mar 23, 2022 [place] [facility] BASIC METABOLIC Specimen Type: SERUM 12:22 PM [place] [facility] PANEL (fasting) No comment enter ed. Ordering Provid er: BALTAZAR SWANSON Report Released Date/Time: Feb 04, 2022 11:15 AM Reporting Lab: [place] [facility] [place] [facility] [address] [address] Performing Lab: [place] [facility] [facility] [address] [address] UREA NITROGEN 23 7-25 GLUCOSE 211 H 65-100 SODIUM 135 135-145 POTASSIUM 4.9 3.5-5.0 CHLORIDE 100 100-110 CO2 25 20-30 CREATININE, Serum 1.14 0.50-1.40 eGFR(CKD-EPI 2020) 72 >60 Social History: Smoking Status (Most current) and Tobacco Use (All prior to encounter date) This section includes the most current, and the historical, smoking and tobacco-related health factors from the [place] facility where the Encounter took place.Current Smoking Status This section includes the most current smoking, or tobacco-related health factor, from the [place] facility where the Encounter took place. Date/Time Current Smoking Status Comment Facility Feb 16, 2022 10:00 AM VA-TOBACCO FORMER USER [place] CNTRL [place] [facility] Tobacco Use History This section includes a history of the smoking, or tobacco- related health factors, that were collected on or before the date of the Encounter. The data comes from the [place] facility where the Encounter took place. Date/Time Smoking Status/Tobacco Comment Facility Use Feb 16, 2022 10:00 VA-TOBACCO QUIT 15 YRS VA CNT RL WSTRN AM OR MORE [place] [facility] Feb 04, 2021 11:00 VA-TOBACCO NEVER USED VA CNTR L [facility]STRN AM [place] [facility] Feb 04, 2021 11:00 VA-TOBACCO USE DECLINED VA CN TRL WSTR[facility] May 08, 2019 11:06 VA-TOBACCO FORMER USER [facility] May 08, 2019 11:06 VA-TOBACCO QUIT 15 YRS VA CNT RL W[facility]N AM OR [facility] Oct 26, 2018 11:33 VA-TOBACCO NEVER USED VA CNTR L [facility] AM [facility] Oct 21, 2017 09:29 QUIT TOBACCO USE > 7 VA CNTRL 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, cigarettes [facility] Dec 06, 2015 09:59 QUIT TOBACCO USE IN PAST [place] C NTRL WSTRN AM YEAR [facility] Dec 05, 2014 02:31 TOBACCO INPATIENT NO USE VA C NTRL WSTRN PM 30 DAYS [facility] Dec 05, 2014 01:37 LIFETIME NON-TOBACCO VA CN[facility]L WSTRN PM USER [facility] Nov 03, 2014 01:14 TOBACCO INPATIENT NO USE VA C NTRL WSTRN PM 30 DAYS [facility] Nov 02, 2014 10:36 TOBACCO INPATIENT NO USE VA C NTRL WSTRN AM 30 DAYS [facility] Oct 06, 2003 03:47 QUIT TOBACCO USE > 7 VA CNTRL WSTRN AM YEARS AGO [facility] Advance Directives: All historical and current Section Date Range: From patient's date of to the date document was created. This section includes ALL of a patient's completed or amended [place] Advance and Rescinded Directives. The entries below indicate that a directive exists for the patient, but an actual copy is not included with this document. The data comes from all [place] facilities. Date Advance Directives Provider Source Sep 06, 2007 ADVANCE DIRECTIVE ROBERTO FONTENOT [place] CNTRL [place]STR N [facility] Encounter Notes: All associated encounter notes This section contains the clinical notes associated to the Encounter. Date/Time Encounter Note(s) Provider Source Mar 27, 2022 12:00 AM NONVA CONSULT: [place] [facility] [place] [facility] LOCAL TITLE: COMMUNITY CARE-CONSULT RESULT NOTE [facility] STANDARD TITLE: NONVA CONSULT DATE OF NOTE: MAR 27, 2022 ENTRY DATE: MAY 22 022@11:38:06 AUTHOR: IHSAN UREÑA EXP COSIGNER: URGENCY: STATUS: COMPLETED VistA Imaging - Scanned Document SCANNED DOCUMENT SIGNATURE NOT REQUIRED Electronically Filed: 05/22/2022 by: IHSAN UREÑA PLANT AND INSTRUMENT ENGINEER
--- OUTSIDE RECORDS SUMMARY | 2022-09-09 17:38 | XMS_ITS ---
:1960 Author Organization Department [facility] rs Address [address] [place] [id number] Support Name Relationship Address Phone MR MRS NERI KENNEDY Unavailable [address] [place] [address] MR MRS NERI KENNEDY Unavailable [address] [place] [address] Insurance Providers: All historical and current Section [...] Number Crowell [employer]AL MEDICARE MCR Oct 21, [id number] TREVOR LEMUS PATIENT CARE ADVANTAGE (WNR) 2018 [id number] [facility] (WNR) MEDICAID MEDICAID [facility] Aug 23, [facility] [id number] [phone] TREVOR TRINH PATIENT [facility] 2014 D [id number] [facility] MEDIC[facility] PART Nov 21, PART B [id number] [phone] TREVOR KENNEDY PATIENT (WNR) (M) B 2002A 00 FFREY MEDICARE MEDICARE PART Nov 21, PART A [id number] [phone] TREVOR KENNEDY PATIENT (WNR) (M) A 2002A FFREY MEDICARE MEDICARE PART Nov 21, PART A [id number] RTEVOR KENNEDY PATIENT (WNR) (M) A 2002A FFREY MEDICARE MEDICARE PART Nov 21, PART B [id number] TREVOR KENNEDY PATIENT (WNR) (M) B 2002 27A 4 FFREY Selected Encounter This section includes the information on record at [place] for the Encounter. Date/Time Encounter Type Encounter Description Reason Provider Source May 28, 2022 02:59 Outpatient Encounter [facility] PM CONSULT IHE Encounter Template Text not used by [place] Plan of Treatment: Future Appointments (+ 6 months) and Future Tests (+/- 45 days) The Plan of Treatment section includes future care activities for the patient from all [place] [facility]. This section includes future appointments and future orders which are active, pending orscheduled.Future Appointments This section includes appointments that were scheduled to occur 6 months from the date of the Encounter, up to a maximum of 20 appointments. The data comes from all [place] treatment [facility]. Appointment Date/Time Appointment Type Appointment Facili ty Name Aug 31, 2022 10:00 AM AMBULATORY - REHAB [facility]IC[facility] Sep 18, 2022 10:00 AM AMBULATORY - REHAB MEDICINE [facility] Active, Pending, and Scheduled Orders This section includes a listing of several types of active, pending, and scheduled orders, including clinic medications orders, diagnostic test orders, procedure orders and consult orders; where the start date of the order is 45 days before the date of the Encounter or 45 days after the date of the Encounter. The data comes from all [facility]. 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 Date/Time Current Smoking Status [facility] Facility Feb 16, 2022 10:00 AM [place]-TOBACCO FORMER USER [facility] Tobacco Use History This section includes a history of the smoking, or tobacco- related health factors, that were collected on or before the date of the Encounter. The data comes from the [place] facility where the Encounter took place. Date/Time Smoking Status/Tobacco Comment Facility Use Feb 16, 2022 10:00 VA-TOBACCO QUIT 15 YRS VA CNT RL WSTRN AM OR MORE [place] [facility] Feb 04, 2021 11:00 VA-TOBACCO NEVER USED VA CNTR L [facility] AM [place] [facility] Feb 04, 2021 11:00 VA-TOBACCO USE DECLINED VA CN TRL WSTRN AM TO ANSWER [place] [facility] May 08, 2019 11:06 VA-TOBACCO FORMER USER VA CNT RL WSTRN AM [place] [facility] May 08, 2019 11:06 VA-TOBACCO QUIT 15 YRS VA CNT RL WSTRN AM OR MORE [place] [facility] Oct 26, 2018 11:33 VA-TOBACCO NEVER USED VA CNTR L [facility] AM [place] [facility] Oct 21, 2017 09:29 QUIT TOBACCO USE > 7 VA CNTRL 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, 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 [facility] Dec 06, 2015 09:59 QUIT TOBACCO USE IN PAST [place] C NTRL WSTR[place] AM YEAR [place] [facility] Dec 05, 2014 02:31 TOBACCO INPATIENT NO USE VA C NTRL WSTRN PM 30 DAYS [place] [facility] Dec 05, 2014 01:37 LIFETIME NON-TOBACCO VA CNTRL WSTRN PM USER [facility] Nov 03, 2014 01:14 TOBACCO INPATIENT NO USE VA C NTRL WSTRN PM 30 DAYS [place] [facility] Nov 02, 2014 10:36 TOBACCO INPATIENT NO USE [place] C NTRL WSTRN AM 30 DAYS [place] [facility] Oct 06, 2003 03:47 QUIT TOBACCO [...] DIRECTIVE ROBERTO FONTENOT [place] CNTRL WSTR N [facility] Encounter Notes: All associated encounter notes This section contains the clinical notes associated to the Encounter. Date/Time Encounter Note(s) Provider Source May 28, 2022 02:59 PM NONVA NOTE: EVELINAANKIT [facility] LOCAL TITLE: COMMUNITY CARE-DIANA SELF PRESENTIN G CARE COORD PLAN STANDARD TITLE: NONVA NOTE DATE OF NOTE: MAY 28, 2022@14:59 ENTRY DATE: MAY 28, 2022@15:01:15 AUTHOR: ANKIT HOYT EXP COSIGNER: URGENCY: STATUS: COMPLETED Emergency Notification Intake Date Presenting to the Facility: May Method of Contact: Notified from mSpot worklist Notification ID: [id number] [facility] Referral #: [facility] Hospital Name: Hospital: [facility] Address: City: [place] State: [place] Zip Code: Phone : Community Facility Point of Contact: Name: Olivia Phone: Chief complaint: CHILLS Primary Diagnosis: Disposition Admitted Route of Admission: ER Date of Admission: May Admitting Diagnosis: CHILLS Community Care Provider: Confirm Level of Care: /tan/ ANKIT TOURE Signed: 05/28/2022 15:02 Receipt Acknowledged By: 05/28/2022 15:08 /es/ BG CASTILLO,RN,CNL Quality Manager Small Business 05/28/2022 15:03 /es/ BETHANIE ANTOINE, FAITH REGISTERED NURSE * AWAITING SIGNATURE * SHADY RENO * AWAITING SIGNATURE * JORGE L GEORGE * AWAITING SIGNATURE * BALTAZAR SWNASON
--- OUTSIDE RECORDS SUMMARY | 2022-09-09 17:38 | XMS_ITS | Encounter Summary ---
:1960 Author Organization Department [facility] rs Address [address] [place] [phone] Support Name Relationship Address Phone MR MRS NERI KENNEDY Unavailable [address] [place] [address] MR MRS NERI KENNEDY Unavailable [address] [place] [address] Insurance Providers: All historical and current Section [...] Number Crowell [employer] MEDICARE MCR Oct 21, [id number] TREVOR LEMUS PATIENT CARE ADVANTAGE (WNR) 2018 [id number] [facility] (WNR) MEDICAID MEDICAID [facility] Aug 23, [facility] [id number] [phone] TRE[facility]OR TRINH [facility] 2014 D [id number] FFREY [facility] MEDIC[facility] PART Nov 21, PART A [id number] [phone] TREVOR KENNEDY PATIENT (WNR) (M) A 2002A 00 FFREY MEDICARE MEDICARE PART Nov 21, PART B [id number] [phone] TREVOR KENNEDY PATIENT (WNR) (M) B 2002A FFREY MEDICARE MEDICARE PART Nov 21, PART A [id number] TREVOR KENNEDY PATIENT (WNR) (M) A 2002A FFREY MEDICARE MEDICARE PART Nov 21, PART B [id number] [id number] TREVOR KENNEDY PATIENT (WNR) (M) B 2002 27A 4 FFREY Selected Encounter This section includes the information on record at [place] for the Encounter. Date/Time Encounter Type Encounter Description Reason Provider Source May 18, 2022 12:00 Outpatient Encounter [facility] CONSULT IHE Encounter Template Text not used by [place] Plan of Treatment: Future Appointments (+ 6 months) and Future Tests (+/- 45 days) The Plan of Treatment section includes future care activities for the patient from all [place] [facility]. This section includes future appointments and future orders which are active, pending orscheduled.Future Appointments This section includes appointments that were scheduled to occur 6 months from the date of the Encounter, up to a maximum of 20 appointments. The data comes from all [place] treatment [facility]. Appointment Date/Time Appointment Type Appointment Facili ty Name Aug 31, 2022 10:00 AM AMBULATORY - REHAB MEDICINE [facility] Sep 18, 2022 10:00 AM AMBULATORY - REHAB MEDICINE [facility] Active, Pending, and Scheduled Orders This section includes a listing of several types of active, pending, and scheduled orders, including clinic medications orders, diagnostic test orders, procedure orders and consult orders; where the start date of the order is 45 days before the date of the Encounter or 45 days after the date of the Encounter. The data comes from all [facility]. 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 Date/Time Current Smoking Status [facility] Facility Feb 16, 2022 10:00 AM [place]-TOBACCO FORMER USER [facility] Tobacco Use History This section includes a history of the smoking, or tobacco- related health factors, that were collected on or before the date of the Encounter. The data comes from the [place] facility where the Encounter took place. Date/Time Smoking Status/Tobacco Comment Facility Use Feb 16, 2022 10:00 VA-TOBACCO QUIT 15 YRS VA CNT RL WSTRN AM OR MORE [place] [facility] Feb 04, 2021 11:00 VA-TOBACCO NEVER USED VA CNTR L WSTRN AM [place] [facility] Feb 04, 2021 11:00 VA-TOBACCO USE DECLINED VA CN TRL WSTRN AM TO ANSWER [place] [facility] May 08, 2019 11:06 VA-TOBACCO FORMER USER VA CNT RL WSTRN AM [place] [facility] May 08, 2019 11:06 VA-TOBACCO QUIT 15 YRS VA CNT RL WSTRN AM OR MORE [place] [facility] Oct 26, 2018 11:33 VA-TOBACCO NEVER USED VA CNTR L [place]STRN AM [place] [facility] Oct 21, 2017 09:29 QUIT TOBACCO USE > 7 VA CNTRL 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, 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 [facility] Dec 06, 2015 09:59 QUIT TOBACCO USE IN PAST [place] C NTRL WSTRN AM YEAR [place] [facility] Dec 05, 2014 02:31 TOBACCO INPATIENT NO USE VA C NTRL WSTRN PM 30 DAYS [place] [facility] Dec 05, 2014 01:37 LIFETIME NON-TOBACCO VA CNTRL WSTRN PM USER [facility] Nov 03, 2014 01:14 TOBACCO INPATIENT NO USE VA C NTRL WSTRN PM 30 DAYS [place] [facility] Nov 02, 2014 10:36 TOBACCO INPATIENT NO USE [place] C NTRL WSTRN AM 30 DAYS [place] [facility] Oct 06, 2003 03:47 QUIT TOBACCO USE > 7 VA CNTRL WSTRN AM YEARS AGO [facility] Advance Directives: All historical and [...] DIRECTIVE ROBERTO FONTENOT [place] CNTR[place]STR N [facility] Encounter Notes: All associated encounter notes This section contains the clinical notes associated to the Encounter. Date/Time Encounter Note(s) Provider Source May 18, 2022 12:00 AM NONVA CONSULT: [facility] LOCAL TITLE: COMMUNITY CARE-CONSULT RESULT NOTE [facility] TITLE: NONVA CONSULT DATE OF NOTE: MAY 18, 2022 ENTRY DATE: MAY 27 022@10:46:27 AUTHOR: MAENA CABRERA COSIGNER: URGENCY: STATUS: COMPLETED VistA Imaging - Scanned Document SCANNED DOCUMENT SIGNATURE NOT REQUIRED Electronically Filed: 05/27/2022 by: AMENA CABRERA CUSTOMER CARE PROFESSIONAL
--- OUTSIDE RECORDS SUMMARY | 2022-09-09 17:39 | XMS_ITS ---
:1960 Author Organization Department [facility] rs Address [address] [place] [id number] Support Name Relationship Address Phone MR MRS NERI KENNEDY Unavailable [address] [place] [address] MR MRS NERI KENNEDY Unavailable [address] [phone] [place] [address] Insurance Providers: All historical and current Section [...] Number Crowell COMMONWEAL MEDICARE MCR Oct 21, [id number] TREVOR LEMUS PATIENT CARE ADVANTAGE (WNR) [id number] [facility] (WNR) MEDICAID MEDICAID [facility] Aug 23, [facility] [id number] [phone] TREVOR TRINH PATIENT [facility] 2014 D [id number] [facility] MED[facility] PART Nov 21, PART A [id number] [phone] TREVOR KENNEDY PATIENT (WNR) (M) A 2002A 00 FFREY MEDICARE MEDICARE PART Nov 21, PART B [id number] [phone] TREVOR KENNEDY PATIENT (WNR) (M) B 2002A FFREY MEDICARE MEDICARE PART Nov 21, PART A [id number] TREVOR KENNEDY PATIENT (WNR) (M) A 2002A [facility] MEDICARE MEDICARE PART Nov 21, PART B [id number] TREVOR KENNEDY PATIENT (WNR) (M) B 2002 27A 4 FFREY Selected Encounter This section includes the information on record at [place] for the Encounter. Date/Time Encounter Type Encounter Description Reason Provider Source May 28, 2022 03:08 Outpatient Encounter TELEPHONE CASE PM MANAGEMENT IHE Encounter Template Text not used by [place] Plan of Treatment: Future Appointments (+ 6 months) and Future Tests (+/- 45 days) The Plan of Treatment section includes future care activities for the patient from all [place] [facility] This section includes future appointments and future orders which are active, pending orscheduled.Future Appointments This section includes appointments that were scheduled to occur 6 months from the date of the Encounter, up to a maximum of 20 appointments. The data comes from all [place] treatment [facility]. Appointment Date/Time Appointment Type Appointment Facili ty Name Aug 31, 2022 10:00 AM AMBULATORY - REHAB MEDICINE [facility] Sep 18, 2022 10:00 AM AMBULATORY - REHAB MEDICINE [facility] Active, Pending, and Scheduled Orders This section includes a listing of several types of active, pending, and scheduled orders, including clinic medications orders, diagnostic test orders, procedure orders and consult orders; where the start date of the order is 45 days before the date of the Encounter or 45 days after the date of the Encounter. The data comes from all [facility]. 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 Date/Time Current Smoking Status [facility] Facility Feb 16, 2022 10:00 AM [place]-TOBACCO FORMER USER [facility] Tobacco Use History This section includes a history of the smoking, or tobacco- related health factors, that were collected on or before the date of the Encounter. The data comes from the [place] facility where the Encounter took place. Date/Time Smoking Status/Tobacco Comment Facility Use Feb 16, 2022 10:00 VA-TOBACCO QUIT 15 YRS VA CNT RL WSTRN AM OR MORE [place] [facility] Feb 04, 2021 11:00 VA-TOBACCO NEVER USED [facility] CNTR L WSTRN AM [place] [facility] Feb 04, 2021 11:00 VA-TOBACCO USE DECLINED VA CN TRL WSTRN AM TO ANSWER [place] [facility] May 08, 2019 11:06 VA-TOBACCO FORMER USER VA CNT RL WSTRN AM [place] [facility] May 08, 2019 11:06 VA-TOBACCO QUIT 15 YRS VA CNT RL WSTRN AM OR MORE [place] [facility] Oct 26, 2018 11:33 VA-TOBACCO NEVER USED [facility] CNTR L WSTRN AM [place] [facility] Oct 21, 2017 09:29 QUIT TOBACCO USE > 7 VA CNTRL 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, cigarettes [facility] Dec 06, 2015 09:59 QUIT TOBACCO USE IN PAST [place] C NTRL WSTRN AM YEAR [place] [facility] Dec 05, 2014 02:31 TOBACCO INPATIENT NO USE VA C NTRL WSTRN PM 30 DAYS [place] [facility] Dec 05, 2014 01:37 LIFETIME NON-TOBACCO VA CNTRL WSTRN PM USER [facility] Nov 03, 2014 01:14 TOBACCO INPATIENT NO USE VA C NTRL WSTRN PM 30 DAYS [place] [facility] Nov 02, 2014 10:36 TOBACCO INPATIENT NO USE [place] C NTRL WSTRN AM 30 DAYS [place] [facility] Oct 06, 2003 03:47 QUIT TOBACCO USE > 7 VA CNTRL WSTRN AM YEARS AGO [facility] Advance Directives: All historical and current [...] DIRECTIVE ROBERTO FONTENOT [place] CNTRL WSTR N [facility] Encounter Notes: All associated encounter notes This section contains the clinical notes associated to the Encounter. Date/Time Encounter Note(s) Provider Source May 28, 2022 03:08 TRANSFER SUMMARIZATION NOTE: BG THOMPSON [place] CNTRL WSTRN PM LOCAL TITLE: DESKTOP PUBLISHING OPERATOR/OCC/HOSPITAL NOTIFICATION NOTE [facility] STANDARD TITLE: TRANSFER SUMMARIZATION NOTE DATE OF NOTE: MAY 28, 2022@15:08 ENTRY DATE: MAY 28, 2022@15:08:56 AUTHOR: BG THOMPSON EXP COSIGNER: URGENCY: STATUS: COMPLETED DESKTOP PUBLISHING OPERATOR/OCC/HOSPITAL NOTIFICAT ION NOTE Has ADDENDA TC office is aware of 's hospitalization at [facility] on 05/25 for chills. TC office will follow until discharged. /tan/ BG THOMPSON MSN,RN,CNL Quality Paper Cutter Signed: 05/28/2022 15:09 06/04/2022 ADDENDUM STATUS: COMPLETED Per Kaur at [facility], wa s [place] home with services on 05/27/22, no further information is available. /es/ JORGE L GEORGE RN Registered Nurse Signed: 06/04/2022 14:23
--- OUTSIDE RECORDS SUMMARY | 2022-09-09 17:39 | XMS_ITS | Encounter Summary ---
:1960 Author Organization Department [facility] rs Address [address] [place] [address] Support Name Relationship Address Phone MR MRS NERI KENNEDY Unavailable [address] [place] [address] MR MRS NERI KENNEDY Unavailable [address] [phone] [place] [address] Insurance Providers: All historical and current Section [...] Number Crowell [employer]AL MEDICARE MCR Oct 21, [id number] TREVOR LEMUS PATIENT CARE ADVANTAGE (WNR) 2018 [id number] [facility] (WNR) MEDICAID MEDICAID [facility] Aug 23, [facility] [id number] [phone] [facility] [id number] [facility] PART Nov 21, PART A [id number] [phone] TREVOR KENNEDY PATIENT (WNR) (M) A 2002A 00 FFREY MEDICARE MEDICARE PART Nov 21, PART B [id number] [phone] TREVOR KENNEDY PATIENT (WNR) (M) B 2002A 00 FF[place] MEDICARE MEDICARE PART Nov 21, PART B [id number] TREVOR KENNEDY PATIENT (WNR) (M) B 2002A 4 FFRE[facility] MEDICARE MEDICARE PART Nov 21, PART A [id number] MARCIA TREVOR PATIENT (WNR) (M) A 2002A 4 [facility] Selected Encounter This section includes the information on record at [place] for the Encounter. Date/Time Encounter Type Encounter Description Reason Provider Source Apr 25, 2022 12:00 Outpatient Encounter [facility] AM CONSULT IHE Encounter Template Text not used by [place] Plan of Treatment: Future Appointments (+ 6 months) and Future Tests (+/- 45 days) The Plan of Treatment section includes future care activities for the patient from all [place] [facility]. This section includes future appointments and future orders which are active, pending orscheduled.Future Appointments This section includes appointments that were scheduled to occur 6 months from the date of the Encounter, up to a maximum of 20 appointments. The data comes from all [facility]. Appointment Date/Time Appointment Type Appointment Facili ty Name May 18, 2022 08:30 AM AMBULATORY - MEDICINE [facility] Aug 31, 2022 10:00 AM AMBULATORY - REHAB MEDICINE [facility] Sep 18, 2022 10:00 AM AMBULATORY - REHAB MEDICINE [facility] Active, Pending, and Scheduled Orders This section includes a listing of several types of active, pending, and scheduled orders, including clinic medications orders, diagnostic test orders, procedure orders and consult orders; where the start date of the order is 45 days before the date of the Encounter or 45 days after the date of the Encounter. The data comes from all [facility]. Test Date/Time Test Type Test Details Facility Name Mar 23, 2022 12:00 AM Laboratory - Chemistry MICROALBUMIN CREATI NINE Order RATIO PANEL URINE (RANDOM) SP Mar 23, 2022 12:00 AM Laboratory - Chemistry URINALYSIS URINE SP Order Social History: Smoking Status (Most current) and Tobacco Use (All prior to encounter date) This section includes the most current, and the historical, smoking and tobacco-related health factors from the [place] facility where the Encounter took place.Current Smoking Status This section includes the most current smoking, or tobacco-related health factor, from the [place] facility where the Encounter took place. Date/Time Current Smoking Status Comment Facility Feb 16, 2022 10:00 AM [place]-TOBACCO FORMER USER [facility] Tobacco Use History This section includes a history of the smoking, or tobacco- related health factors, that were collected on or before the date of the Encounter. The data comes from the [place] facility where the Encounter took place. Date/Time Smoking Status/Tobacco Comment Facility Use Feb 16, 2022 10:00 VA-TOBACCO QUIT 15 YRS VA CNT RL WSTRN AM OR MORE [place] [facility] Feb 04, 2021 11:00 VA-TOBACCO NEVER USED VA CNTR L WSTRN AM [place] [facility] Feb 04, 2021 11:00 VA-TOBACCO USE DECLINED VA CN TRL WSTRN AM TO ANSWER [place] [facility] May 08, 2019 11:06 VA-TOBACCO FORMER USER VA CNT RL WSTRN AM [place] [facility] May 08, 2019 11:06 VA-TOBACCO QUIT 15 YRS VA CNT RL WSTRN AM OR MORE [place] [facility] Oct 26, 2018 11:33 VA-TOBACCO NEVER USED VA CNTR L WSTRN AM [place] [facility] Oct 21, 2017 09:29 QUIT TOBACCO USE > 7 VA CNTRL 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, [facility] Dec 06, 2015 09:59 QUIT TOBACCO USE IN PAST [place] C NTRL WSTR[place] AM YEAR [place] [facility] Dec 05, 2014 02:31 TOBACCO INPATIENT NO USE VA C NTRL WSTRN PM 30 DAYS [place] [facility] Dec 05, 2014 01:37 LIFETIME NON-TOBACCO VA CNTRL WSTRN PM [facility] Nov 03, 2014 01:14 TOBACCO INPATIENT NO USE VA C NTRL WSTRN PM 30 DAYS [place] [facility] Nov 02, 2014 10:36 TOBACCO INPATIENT NO USE VA C NTRL WSTRN AM 30 DAYS [place] [facility] Oct 06, 2003 03:47 QUIT TOBACCO USE > 7 VA CNTRL WSTRN AM YEARS AGO [facility] Advance Directives: All historical and current [...] 06, 2007 ADVANCE DIRECTIVE ROBERTO FONTENOT [place] CNTRL WSTR [place] [facility] Encounter Notes: All associated encounter notes This section contains the clinical notes associated to the Encounter. Date/Time Encounter Note(s) Provider Source Apr 25, 2022 12:00 AM NONVA CONSULT: LINDA ALMAZAN W STRN LOCAL TITLE: COMMUNITY CARE-CONSULT RESULT NOTE [facility] STANDARD TITLE: NONVA CONSULT DATE OF NOTE: APR 25, 2022 ENTRY DATE: JUN 10@10:22:37 AUTHOR: BRICE MA EXP COSIGNER: URGENCY: STATUS: COMPLETED VistA Imaging - Scanned Document SCANNED DOCUMENT SIGNATURE NOT REQUIRED Electronically Filed: 06/10/2022 by: BRICE MA
--- OUTSIDE RECORDS SUMMARY | 2022-09-09 17:40 | XMS_ITS ---
:1960 Author Organization [facility] rs Address [address] [place] [address] Support Name Relationship Address Phone MR MRS NERI KENNEDY Unavailable [address] [phone] [place] [address] MR MRS NERI KENNEDY Unavailable [address] [phone] [place] [address] Insurance Providers: All historical and current Section [...] Number Crowell COMM[employer]WEAL MEDICARE MCR Oct 21, [id number] [phone] RONNY TREVOR HERNANDEZ PATIENT CARE ADVANTAGE (WNR) [id number] [facility] (WNR) MEDICAID MEDICAID [facility] Aug 23, [facility] [id number] [phone] TREVOR TRINH PATIENT [facility] 2014 D [id number] [facility] MEDICARE PART Nov 21, PART A [id number] [phone] TREVOR KENNEDY PATIENT (WNR) (M) A 2002A 00 FFREY MEDICARE MEDICARE PART Nov 21, PART B [id number] [phone] TREVOR KENNEDY PATIENT (WNR) (M) B 2002A 00 [facility] MEDICARE MEDICARE PART Nov 21, PART A [id number] TREVOR KENNEDY PATIENT (WNR) (M) A 2002A [facility] MEDICARE MEDICARE PART Nov 21, PART B [id number] [id number] TREVOR KENNEDY PATIENT (WNR) (M) B 2002 27A 4 FFREY Selected Encounter This section includes the information on record at [place] for the Encounter. Date/Time Encounter Type Encounter Description Reason Provider Source Jun 16, 2022 11:34 Outpatient Encounter TELEPHONE/REHAB AND AM SUPPORT IHE Encounter Template Text not used by [place] Plan of Treatment: Future Appointments (+ 6 months) and Future Tests (+/- 45 days) The Plan of Treatment section includes future care activities for the patient from all [place] [facility]. This section includes future appointments and future orders which are active, pending orscheduled.Future Appointments This section includes appointments that were scheduled to occur 6 months from the date of the Encounter, up to a maximum of 20 appointments. The data comes from all [facility]. Appointment Date/Time Appointment Type Appointment Facili ty Name Aug 31, 2022 10:00 AM AMBULATORY - REHAB MEDICINE [facility] Sep 18, 2022 10:00 AM AMBULATORY - REHAB MEDICINE [facility] Active, Pending, and Scheduled [...] the Encounter. The data comes from all [facility]. 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 Date/Time Current Smoking Status [facility] Facility Feb 16, 2022 10:00 AM [place]-TOBACCO FORMER USER [facility] Tobacco Use History This section includes a history of the smoking, or tobacco- related health factors, that were collected on or before the date of the Encounter. The data comes from the [place] facility where the Encounter took place. Date/Time Smoking Status/Tobacco Comment Facility Use Feb 16, 2022 10:00 VA-TOBACCO QUIT 15 YRS VA CNT RL WSTRN AM OR MORE [place] [facility] Feb 04, 2021 11:00 VA-TOBACCO NEVER USED VA CNTR L WSTRN AM [place] [facility] Feb 04, 2021 11:00 VA-TOBACCO USE DECLINED VA CN TRL WSTRN [facility] May 08, 2019 11:06 VA-TOBACCO FORMER USER VA CNT RL WSTRN AM [place] [facility] May 08, 2019 11:06 VA-TOBACCO QUIT 15 YRS VA CNT RL WSTRN AM OR MORE [place] [facility] Oct 26, 2018 11:33 VA-TOBACCO NEVER USED VA CNTR L WSTRN AM [place] [facility] Oct 21, 2017 09:29 QUIT TOBACCO USE > 7 VA CNTRL 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, 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 [facility] Dec 06, 2015 09:59 QUIT TOBACCO USE IN PAST VA C NTRL WSTRN AM [facility] Dec 05, 2014 02:31 TOBACCO INPATIENT NO USE VA C NTRL WSTRN PM 30 DAYS [place] [facility] Dec 05, 2014 01:37 LIFETIME NON-TOBACCO VA CNTRL WSTRN PM USER [facility] Nov 03, 2014 01:14 TOBACCO INPATIENT NO USE VA C NTRL WSTRN PM 30 DAYS [place] [facility] Nov 02, 2014 10:36 TOBACCO INPATIENT NO USE [facility] C N[facility]STRN AM [facility] Oct 06, 2003 03:47 QUIT TOBACCO USE > 7 VA CNTRL WSTRN AM YEARS AGO [facility] Advance Directives: All historical and current [...] DIRECTIVE ROBERTO FONTENOT [place] CNTRL WSTR [place] [facility] Encounter Notes: All associated encounter notes This section contains the clinical notes associated to the Encounter. Date/Time Encounter Note(s) Provider Source Jun 16, 2022 11:34 AM ADMINISTRATIVE NOTE: ALVA ODOM [place] CN TRL WSTRN LOCAL TITLE: ADMINISTRATIVE NOTE [facility] STANDARD TITLE: ADMINISTRATIVE NOTE DATE OF NOTE: JUN 16, 2022@11:34 ENTRY DATE: JUN 16, 2022@11:34:56 AUTHOR: ALVA ODOM EXP COSIGNER: URGENCY: STATUS: COMPLETED victorina into the OT c estephania stating he wnats to be seen in the wheelchair clinic . He states that both arm rests need to b e replaced, the head/neck rest/support needs to be adj usted and the control panel screen is broken. 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
--- OUTSIDE RECORDS SUMMARY | 2022-09-09 17:41 | XMS_ITS | Encounter Summary ---
:1960 Author Organization Department [facility] rs Address [address] [place] [address] Support Name Relationship Address Phone MR MRS NERI KENNEDY Unavailable [address] [phone] [place] [address] MR MRS NERI KENNEDY Unavailable [address] [place] [address] Insurance Providers: All historical and current Section [...] Number Crowell COMMONWEAL MEDICARE MCR Oct 21, [id number] TREVOR LEMUS PATIENT CARE ADVANTAGE (WNR) [id number] [facility] ([facility] MEDICAID MEDICAID [facility] Aug 23, [facility] [id number] [phone] TREVOR TRINH PATIENT [facility] D [id number] [facility] MEDICARE MEDICARE PART Nov 21, PART A [id number] [phone] TREVOR KENNEDY PATIENT (WNR) (M) A 2002A 00 FFREY MEDICARE MEDICARE PART Nov 21, PART B [id number] [phone] TREVOR KENNEDY PATIENT (WNR) (M) B 2002A FFREY MEDICARE MEDICARE PART Nov 21, PART A [id number] TREVOR KENNEDY PATIENT (WNR) (M) A 2002A FFREY MEDICARE MEDICARE PART Nov 21, PART B [id number] TREVOR KENNEDY PATIENT (WNR) (M) B 2002 27A 4 FFREY Selected Encounter This section includes the information on record at [place] for the Encounter. Date/Time Encounter Type Encounter Description Reason Provider Source Mar 25, 2022 08:00 Outpatient Encounter [facility] AM CONSULT IHE Encounter Template Text not used by [place] Plan of Treatment: Future Appointments (+ 6 months) and Future Tests (+/- 45 days) The Plan of Treatment section includes future care activities for the patient from all [place] [facility] This section includes future appointments and future orders which are active, pending orscheduled.Future Appointments This section includes appointments that were scheduled to occur 6 months from the date of the Encounter, up to a maximum of 20 appointments. The data comes from all [facility]. Appointment Date/Time Appointment Type Appointment Facili ty Name Apr 09, 2022 09:00 AM AMBULATORY MEDICINE [facility] May 18, 2022 08:30 AM [facility] Aug 31, 2022 10:00 AM AMBULATORY - REHAB [facility] Sep 18, 2022 10:00 AM AMBULATORY [facility] Active, Pending, and Scheduled Orders This section includes a listing of several types of active, pending, and scheduled orders, including clinic medications orders, diagnostic test orders, procedure orders and consult orders; where the start date of the order is 45 days before the date of the Encounter or 45 days after the date of the Encounter. The data comes from all [facility]. Test Date/Time Test Type Test Details Facility Name Mar 23, 2022 12:00 AM Laboratory - Chemistry URINALYSIS URINE SP Order Mar 23, 2022 12:00 AM Laboratory - Chemistry MICROALBUMIN CREATI NINE Order RATIO PANEL URINE (RANDOM) SP Lab Results: +/- 30 days of the encounter This section includes the Chemistry and Hematology Lab Results on record with [place] for the patient. Radiology Reports and Pathology Reports are provided separately, in subsequent sections.Lab Results This section contains the Chemistry/Hematology Results that were resulted 30 days before or 30 daysafter the date of the Encounter. Date/Time Source Result Type Result - Unit Interpretation Reference Range Comment Mar 23, [facility] VITAMIN D Specimen Type: SERUM 2021 [place] [...] 2011;96(7):1911-30. For additional information, please refer to http://education.[employer].Biom'Up/faq/XNM968 (This link is being p rovided for info rmational/ educational purposes only.) This test was developed and its analytical performance characteristics have been determined by [facility] [place] [place]. I t has not been c leared or approved by the U.S. Food and Drug Administration. This assay has been validated pursuant to the CLIA regulations and is used for clinical purposes. This test was developed and its analytical performance characteristics have been determined by [facility] [place] [place]. It has not been cleared or approved by the U.S. Food and Drug Administration. This assay has been v alidated pursuant to the CLIA regulations and is used for clinical purposes. Test Performed by [facility], [facility] [place], [address] [place] [address] Eric Murguia M.D., Ph.D., Director of Laboratories , CLIA [id number] TEST PERFORMED AT: , Ordering Provid er: BALTAZAR SWANSON Report Released Date/Time: Feb 04, 2022 11:15 AM Reporting [facility] [address] [facility] [address] Performing Lab: [facility] [address] [place] [address] VITAMIN D, 25-OH, TOTAL 38 30-100 VITAMIN D, 25-OH, D3 38 VITAMIN D, 25-OH, D2 <4 Mar 23, 2022 [place] [facility] PT & INR (COUMADIN) Specimen Ty pe: PLASMA 12:22 PM [facility] No comment enter ed. Ordering Provid er: BALTAZAR SWANSON Report Released Date/Time: Feb 04, 2022 11:15 AM Reporting Lab: [facility] [address] [address] Performing Lab: [facility] [address] [facility] [address] INR 1.3 PROTIME 14.7 H 10.0-13.1 Mar 23, 2022 12:22 [facility] Specimen Typ e: SERUM PM [facility] No comment enter ed. Ordering Provid er: BALTAZAR SWANSON Report Released Date/Time: Feb 04, 2022 11:15 AM Reporting Lab: [facility] [address] [address] Performing Lab: [facility] [address] [facility] [address] MAGNESIUM 1.6 1.6-2.6 Mar 23, 2022 [facility] HEMOGLOBIN A1C Specimen Type: BLOOD 12:22 PM [facility] PANEL Comment: Values obtained from [...] AM Reporting Lab: [facility] [place] [facility] [address] [address] Performing Lab: [facility] [place] [facility] [address] [facility] [address] HEMOGLOBIN A1C 8.1 H 4.0-5.6 Mar 23, 2022 12:22 [facility] LIVER FUNCTION Specimen Typ e: SERUM PM [place] [facility] No comment enter ed. Ordering Provid er: BALTAZAR SWANSON Report Released Date/Time: Feb 04, 2022 11:15 AM Reporting Lab: [facility] [place] [facility] [address] [facility] [address] Performing Lab: [facility] [place] [facility] [address] [facility] [address] PROTEIN,TOTAL 7.4 6.0-8.3 ALBUMIN 4.1 3.5-5.0 ALKALINE PHOSPHATASE 80 40-150 AST 20 5-34 ALT 26 <6-55 BILIRUBIN, TOTAL 0.5 0.2-1.2 Mar 23, 2022 12:22 PM [facility] [place] CBC Specimen Type: BLOOD HCS No comment enter ed. Ordering Provid er: BALTAZAR SWANSON Report Released Date/Time: Feb 04, 2022 11:15 AM Reporting Lab: [facility] [place] [facility] [address] [facility] [address] Performing Lab: [place] [facility] [place] [facility] [address] [facility] [address] WBC 9.13 4.50-11.00 RBC 4.34 4.23-5.66 HGB 14.1 12.8-17 HCT 40.4 39.2-50.4 MCV 93.1 82-99 MCHC 34.9 30.8-35.1 PLT 188 140-360 RDW-CV 11.6 L 12.0-16.0 MCH 32.5 26.2-32.6 Mar 23, 2022 12:22 PM [facility] [place] TSH Specimen Type: SERUM [facility] No comment enter ed. Ordering Provid er: BALTAZAR SWANSON Report Released Date/Time: Feb 04, 2022 11:15 AM Reporting Lab: [facility] [place] [facility] [address] [facility] [address] Performing Lab: [facility] [place] [facility] [address] [facility] [address] TSH 1.41 0.35-5.00 Mar 23, 2022 [facility] BASIC METABOLIC Specimen Type: SERUM 12:22 PM [place] [facility] PANEL (fasting) No comment enter ed. Ordering Provid er: BALTAZAR SWANSON Report Released Date/Time: Feb 04, 2022 11:15 AM Reporting Lab: [facility] [place] [facility] [address] [facility] [address] Performing Lab: [facility] [place] [facility] [address] [facility] [address] UREA NITROGEN 23 7-25 GLUCOSE 211 H 65-100 SODIUM 135 135-145 POTASSIUM 4.9 3.5-5.0 CHLORIDE 100 100-110 CO2 25 20-30 CREATININE, Serum 1.14 0.50-1.40 eGFR(CKD-EPI 2020) 72 >60 Social History: Smoking Status (Most current) and Tobacco Use (All prior to encounter date) This section includes the most current, and the historical, smoking and tobacco-related health factors from the [place] facility where the Encounter took place.Current Smoking Status This section includes the most current smoking, or tobacco-related health factor, from the [place] facility where the Encounter took place. Date/Time Current Smoking Status Comment Facility Feb 16, 2022 10:00 AM VA-TOBACCO FORMER USER [place] CN[facility]L [facility] [place] [facility] Tobacco Use History This section includes a history of the smoking, or tobacco- related health factors, that were collected on or before the date of the Encounter. The data comes from the [place] facility where the Encounter took place. Date/Time Smoking Status/Tobacco Comment Facility Use Feb 16, 2022 10:00 VA-TOBACCO QUIT 15 YRS VA CNT RL [facility] AM OR MORE [place] [facility] Feb 04, 2021 11:00 VA-TOBACCO NEVER USED [facility] CNTR L [facility] AM [place] [facility] Feb 04, 2021 11:00 VA-TOBACCO USE DECLINED VA CN TRL WSTRN [facility] May 08, 2019 11:06 VA-TOBACCO FORMER USER [facility] CNT [facility] AM [facility] May 08, 2019 11:06 VA-TOBACCO QUIT 15 YRS [facility] AM OR [facility] Oct 26, 2018 11:33 VA-TOBACCO NEVER USED [facility] Oct 21, 2017 09:29 QUIT TOBACCO USE > 7 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, cigarettes [facility] Dec 06, 2015 09:59 QUIT TOBACCO USE IN PAST [place] C NTRL WSTRN AM YEAR [facility] Dec 05, 2014 02:31 TOBACCO INPATIENT NO USE VA C [facility] PM 30 DAYS [facility] Dec 05, 2014 01:37 LIFETIME NON-TOBACCO [facility] PM USER [facility] Nov 03, 2014 01:14 TOBACCO INPATIENT NO USE VA C NTRL [facility] PM 30 DAYS [facility] Nov 02, 2014 10:36 TOBACCO INPATIENT NO USE VA C NTRL [facility] AM 30 DAYS [place] [facility] Oct 06, 2003 03:47 QUIT TOBACCO USE > 7 VA CNTRL WSTRN AM YEARS AGO [facility] Advance Directives: All historical and current Section Date Range: From patient's date of to the date document was created. This section includes ALL of a patient's completed or amended [place] Advance and Rescinded Directives. The entries below indicate that a directive exists for the patient, but an actual copy is not included with this document. The data comes from all [place] facilities. Date Advance Directives Provider Source Sep 06, 2007 ADVANCE DIRECTIVE ROBERTO FONTENOT [place] CN[facility]L [facility]STR N [facility]
--- OUTSIDE RECORDS SUMMARY | 2022-09-09 17:41 | XMS_ITS | Encounter Summary ---
:1960 Author Organization Department [facility] rs Address [address] [place] [address] Support Name Relationship Address Phone MR MRS NERI KENNEDY Unavailable [address] [place] [address] MR MRS NERI KENNEDY Unavailable [address] [phone] [place] [address] Insurance Providers: All historical and current Section [...] Number Crowell [employer] MEDICARE MCR Oct 21, [id number] TREVOR LEUMS PATIENT CARE ADVANTAGE (WNR) 2018 [id number] [facility] ([facility]) MEDICAID MEDICAID [facility] Aug 23, [facility] [id number] [phone] [facility]OR [facility]INH [facility] [id number] [facility] MED[facility] PART Nov 21, PART A [id number] [phone] TREVOR KENNEDY PATIENT (WNR) (M) A 2002A 00 FFREY MEDICARE MEDICARE PART Nov 21, PART B [id number] [phone] TREVOR KENNEDY PATIENT (WNR) (M) B 2002A FFREY MEDICARE MEDICARE PART Nov 21, PART A [id number] TREVOR KENNEDY PATIENT (WNR) (M) A 2002A FFRE[place] MEDICARE MEDICARE PART Nov 21, PART B [id number] TREVOR KENNEDY PATIENT (WNR) (M) B 2002 27A 4 FFREY Selected Encounter This section includes the information on record at [place] for the Encounter. Date/Time Encounter Type Encounter Description Reason Provider Source May 18, 2022 08:30 Outpatient Encounter [facility] CONSULT IHE Encounter Template Text not used by [place] Plan of Treatment: Future Appointments (+ 6 months) and Future Tests (+/- 45 days) The Plan of Treatment section includes future care activities for the patient from all [place] [facility]. This section includes future appointments and future orders which are active, pending orscheduled.Future Appointments This section includes appointments that were scheduled to occur 6 months from the date of the Encounter, up to a maximum of 20 appointments. The data comes from all [place] treatment [facility]. Appointment Date/Time Appointment Type Appointment Facili ty Name Aug 31, 2022 10:00 AM AMBULATORY - REHAB MEDICINE [facility] Sep 18, 2022 10:00 AM AMBULATORY - REHAB MEDICINE [facility] Active, Pending, and Scheduled Orders [...] data comes from all [facility]. Test Date/Time Test Type Test Details Facility Name Jun 16, 2022 12:54 PM Consult Order PHYSICAL THERAPY/[facility] [place] [facility] Cons Dinkey Brakeman's [facility] Choice Social History: Smoking Status (Most [...] Encounter took place. Date/Time Current Smoking Status [facility] Facility Feb 16, 2022 10:00 AM [place]-TOBACCO FORMER USER [facility] Tobacco Use History This section includes a history of the smoking, or tobacco- related health factors, that were collected on or before the date of the Encounter. The data comes from the [place] facility where the Encounter took place. Date/Time Smoking Status/Tobacco Comment Facility Use Feb 16, 2022 10:00 VA-TOBACCO QUIT 15 YRS [facility] Feb 04, 2021 11:00 VA-TOBACCO NEVER USED VA CNTR L [facility] AM [place] [facility] Feb 04, 2021 11:00 VA-TOBACCO USE DECLINED VA CN TRL WSTRN AM TO [facility] May 08, 2019 11:06 VA-TOBACCO FORMER USER VA CNT RL [facility]N AM [place] [facility] May 08, 2019 11:06 VA-TOBACCO QUIT 15 YRS VA CNT RL [facility]N AM OR MORE [place] [facility] Oct 26, 2018 11:33 VA-TOBACCO NEVER USED VA CNTR L [facility] AM [place] [facility] Oct 21, 2017 09:29 QUIT TOBACCO USE > 7 VA CNTRL 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, cigarettes [facility] Dec 06, 2015 09:59 QUIT TOBACCO USE IN PAST [place] C NTRL WSTRN [facility] Dec 05, 2014 02:31 TOBACCO INPATIENT NO USE VA C NTRL [facility] PM 30 DAYS [place] [facility] Dec 05, 2014 01:37 LIFETIME NON-TOBACCO VA CN[facility] PM USER [facility] Nov 03, 2014 01:14 TOBACCO INPATIENT NO USE VA C NTRL WSTRN PM 30 DAYS [place] [facility] Nov 02, 2014 10:36 TOBACCO INPATIENT NO USE WI C NTRL WSTRN AM 30 DAYS [place] [facility] Oct 06, 2003 03:47 QUIT TOBACCO USE > 7 VA CNTRL WSTRN AM YEARS AGO [facility] Advance Directives: All historical and current [...] DIRECTIVE ROBERTO FONTENOT [place] CNTRL [place]STR N [facility]
--- OUTSIDE RECORDS SUMMARY | 2022-09-09 17:41 | XMS_ITS | Encounter Summary ---
:1960 Author Organization Department [facility] rs Address [address] [place] [address] Support Name Relationship Address Phone MR MRS NERI KENNEDY Unavailable [address] [place] [address] MR MRS NERI KENNEDY Unavailable [address] [place] [address] Insurance Providers: All historical and current Section [...] Number Crowell [employer] MEDICARE MCR Oct 21, [id number] TREVOR LEMUS PATIENT CARE ADVANTAGE (WNR) 2018 [id number] [facility] (WNR) MEDICAID MEDICAID [facility] Aug 23, [facility] [id number] [phone] TRE[facility]OR [facility]INH [facility] D [id number] [facility] MEDIC[facility] MEDICARE PART Nov 21, PART A [id number] [phone] TREVOR KENNEDY PATIENT (WNR) (M) A 2002A 00 FFREY MEDICARE MEDICARE PART Nov 21, PART B [id number] [phone] TREVOR KENNEDY PATIENT (WNR) (M) B 2002A FF[facility] MEDICARE MEDICARE PART Nov 21, PART A [id number] TREVOR KENNEDY PATIENT (WNR) (M) A 2002A FF[facility] MEDICARE MEDICARE PART Nov 21, PART B [id number] TREVOR KENNEDY PATIENT (WNR) (M) B 2002 27A 4 FFREY Selected Encounter This section includes the information on record at [place] for the Encounter. Date/Time Encounter Type Encounter Description Reason Provider Source January 16, 2022 09:15 Outpatient Encounter [facility] CONSULT IHE Encounter Template Text not used by [place] Plan of Treatment: Future Appointments (+ 6 months) and Future Tests (+/- 45 days) The Plan of Treatment section includes future care activities for the patient from all [place] treatmentfacilities. This section includes future appointments and future orders which are active, pending orscheduled.Future Appointments This section includes appointments that were scheduled to occur 6 months from the date of the Encounter, up to a maximum of 20 appointments. The data comes from all [place] treatment facilities. Appointment Date/Time Appointment Type Appointment Facili ty Name Feb 16, 2022 10:00 AM AMBULATORY MEDICINE [place] [facility] [facility] Mar 23, 2022 11:30 AM AMBULATORY MEDICINE [place] [facility] [place] [facility] Mar 25, 2022 08:[address] [facility] MEDICINE [place] [facility] [place] [facility] Apr 09, 2022 09:00 AM AMBULATORY MEDICINE [place] [facility] [place] [facility] May 18, 2022 08:[address] [facility] MEDICINE [facility] [place] [facility] Active, Pending, and Scheduled [...] the Encounter. The data comes from all [place] treatment [facility]. Test Date/Time Test Type Test Details Facility Name December 31, 2021 09:10 AM Consult Order COMMUNITY CARE-VASCULAR [facility] WSN SURG[facility] Caller's Choice Social History: Smoking Status (Most current) and Tobacco Use (All prior to encounter date) This section includes the most current, and the historical, smoking and tobacco-related health factors from the [place] facility where the Encounter took place.Current Smoking Status This section includes the most current smoking, or tobacco-related health factor, from the [place] facility where the Encounter took place. Date/Time Current Smoking Status Comment Facility Feb 04, 2021 11:00 AM VA-TOBACCO USE DECLINED TO [place] [facility] [place] [facility] Tobacco Use History This section includes a history of the smoking, or tobacco- related health factors, that were collected on or before the date of the Encounter. The data comes from the [place] facility where the Encounter took place. 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, cigarettes [facility] Dec 06, 2015 09:59 QUIT TOBACCO USE IN PAST VA C NTRL WSTRN AM YEAR [place] [facility] Dec 05, 2014 02:31 TOBACCO INPATIENT NO USE VA C NTRL W[facility] PM 30 DAYS [place] [facility] Dec 05, 2014 01:37 LIFETIME NON-TOBACCO VA [facility] PM [facility] Nov 03, 2014 01:14 TOBACCO INPATIENT NO USE VA C NTRL WSTRN PM 30 DAYS [place] [facility] Nov 02, 2014 10:36 TOBACCO INPATIENT NO USE VA C NTRL WSTRN AM 30 DAYS [place] [facility] Oct 06, 2003 03:47 QUIT TOBACCO USE > 7 VA CNTRL WSTRN AM YEARS AGO [facility] Advance Directives: All historical and current Section Date Range: From patient's date of to the date document was created. This section includes ALL of a patient's completed or amended [place] Advance and Rescinded Directives. The entries below indicate that a directive exists for the patient, but an actual copy is not included with this document. The data comes from all [place] facilities. Date Advance Directives Provider Source Sep 06, 2007 ADVANCE DIRECTIVE ROBERTO FONTENOT [place] CNTRL [place]STR N [facility]
--- OUTSIDE RECORDS SUMMARY | 2022-09-09 17:42 | XMS_ITS ---
:1960 Author Organization [facility] rs Address [address] [place] [address] Support Name Relationship Address Phone MR MRS NERI KENNEDY Unavailable [address] [place] [address] MR MRS NERI KENNEDY Unavailable [address] [place] [address] Insurance Providers: All historical and current Section [...] Number Crowell COMMONWEAL MEDICARE MCR Oct 21, [id number] [phone] TREVOR LEMUS PATIENT CARE ADVANTAGE (WNR) 2018 [id number] [facility] (WNR) MEDICAID MEDICAID [facility] Aug 23, [facility] [id number] [phone] TREVOR TRINH PATIENT [facility] 2014 D [id number] FFREY [facility] MEDICARE MEDICARE PART Nov 21, PART A [id number] [phone] TREVOR KENNEDY PATIENT (WNR) (M) A 2002A 00 FFREY MEDICARE MEDICARE PART Nov 21, PART B [id number] [phone] TREVOR KENNEDY PATIENT (WNR) (M) B 2002A 00 FFREY MEDICARE MEDICARE PART Nov 21, PART A [id number] TREVOR KENNEDY PATIENT (WNR) (M) A 2002A FFREY MEDICARE MEDICARE PART Nov 21, PART B [id number] [phone] TREVOR KENNEDY PATIENT (WNR) (M) B 2002 27A 4 FFREY Selected Encounter This section includes the information on record at [place] for the Encounter. Date/Time Encounter Type Encounter Description Reason Provider Source Jul 06, 2022 03:47 Outpatient Encounter TELEPHONE/[facility] PM IHE Encounter Template Text not used by [place] Plan of Treatment: Future Appointments (+ 6 months) and Future Tests (+/- 45 days) The Plan of Treatment section includes future care activities for the patient from all [place] [facility]. This section includes future appointments and future orders which are active, pending orscheduled.Future Appointments This section includes appointments that were scheduled to occur 6 months from the date of the Encounter, up to a maximum of 20 appointments. The data comes from all [facility]. Appointment Date/Time Appointment Type Appointment Facili ty Name Aug 31, 2022 10:00 AM AMBULATORY - REHAB MEDICINE [facility] Sep 18, 2022 10:00 AM AMBULATORY - REHAB MEDICINE [facility] Active, Pending, and Scheduled Orders This section includes a listing of several types of active, pending, and scheduled orders, including clinic medications orders, diagnostic test orders, procedure orders and consult orders; where the start date of the order is 45 days before the date of the Encounter or 45 days after the date of the Encounter. The data comes from all [facility]. Test Date/Time Test Type Test Details Facility Name Jun 16, 2022 12:54 PM Consult Order PHYSICAL THERAPY/[facility] Cons [employer] [facility] Choice Social History: Smoking Status (Most [...] Encounter took place. Date/Time Current Smoking Status [facility] Facility Feb 16, 2022 10:00 AM [place]-TOBACCO FORMER USER [facility] Tobacco Use History This section includes a history of the smoking, or tobacco- related health factors, that were collected on or before the date of the Encounter. The data comes from the [place] facility where the Encounter took place. Date/Time Smoking Status/Tobacco Comment Facility Use Feb 16, 2022 10:00 VA-TOBACCO QUIT 15 YRS VA CNT RL WSTRN AM OR MORE [place] [facility] Feb 04, 2021 11:00 VA-TOBACCO NEVER USED VA CNTR L [place]STRN AM [place] [facility] Feb 04, 2021 11:00 VA-TOBACCO USE DECLINED VA CN TRL WSTRN [facility] May 08, 2019 11:06 VA-TOBACCO FORMER USER VA CNT RL WSTRN AM [place] [facility] May 08, 2019 11:06 VA-TOBACCO QUIT 15 YRS VA CNT RL WSTRN AM OR MORE [place] [facility] Oct 26, 2018 11:33 VA-TOBACCO NEVER USED VA CNTR L [place] AM [place] [facility] Oct 21, 2017 09:29 QUIT TOBACCO USE > 7 VA CNTRL 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, cigarettes [facility] Dec 06, 2015 09:59 QUIT TOBACCO USE IN PAST VA C NTRL WSTRN AM [facility] Dec 05, 2014 02:31 TOBACCO INPATIENT NO USE VA C NTRL WSTRN PM 30 DAYS [place] [facility] Dec 05, 2014 01:37 LIFETIME NON-TOBACCO VA CNTRL WSTRN PM USER [facility] Nov 03, 2014 01:14 TOBACCO INPATIENT NO USE VA C NTRL WSTRN PM 30 DAYS [place] [facility] Nov 02, 2014 10:36 TOBACCO INPATIENT NO USE [facility] [address] [facility] Oct 06, 2003 03:47 QUIT TOBACCO USE > 7 VA CNTRL WSTRN AM YEARS AGO [facility] Advance Directives: All historical and current [...] DIRECTIVE ROBERTO FONTENOT [place] CNTRL WSTR N [facility] Encounter Notes: All associated encounter notes This section contains the clinical notes associated to the Encounter. Date/Time Encounter Note(s) Provider Source Jul 06, 2022 03:47 PM HOMELESS PROGRAM TELEPHONE ENCOUNTER N OTE: DIANA NEW [place] CNTRL WSTRN LOCAL TITLE: [id number] CONTACT [place] [facility] STANDARD TITLE: HOMELESS PROGRAM TELEPHONE ENCOU NTER NOTE DATE OF NOTE: JUL 06, 2022@15:47 ENTRY DATE: JUL 06, 2022@15:47:43 AUTHOR: DIANA NEW EXP COSIGNER: URGENCY: STATUS: COMPLETED Attempted telephone contact to [facility] (CHECK ON E) Left a voicemail asking [facility] to return call First attempt to contact patient CPS followed up from who left a voicemai l inquiring about HUD/VASH services. CPS left voicemail for to return conventional underwriter's call. is 62 y/o post[place] resident of [place]. Records i ndicate utilizes occupational therapy, requires the use of a whee lchair. Lack of mobility is a factor for 's desire to relocate. CPS will make 2nd attempt to contact 07/07/22. Eligibility for HUD/VASH services has not been established. SUPERVISION STATEMENT: Diana New, AYANNA receives monthly supervision from TUSHAR Browning during which time this p eer support services are discussed and reviewed. PROCEDURE: H0038 Self-help/Peer Support. /es/ DIANA NEW Certified Embossing Calender Operator Signed: 07/06/2022 15:48 Receipt Acknowledged By: * AWAITING SIGNATURE * JOI PRINCE
--- OUTSIDE RECORDS SUMMARY | 2022-09-09 17:42 | XMS_ITS ---
:1960 Author Organization Department [facility] rs Address [address] [place] [address] Support Name Relationship Address Phone MR MRS NERI KENNEDY Unavailable [address] [place] [address] MR MRS NERI KENNEDY Unavailable [address] [phone] [address] [place] [address] Insurance Providers: All historical and current Section [...] Number Crowell COMMONWEAL MEDICARE MCR Oct 21, [id number] TREVOR LEMUS PATIENT CARE ADVANTAGE (WNR) 2018 [id number] [facility] (WNR) MEDICAID MEDICAID [facility] Aug 23, [facility] [id number] [phone] TREVOR TRINH PATIENT [facility] 2014 D [id number] FFREY [facility] MEDICARE MEDICARE PART Nov 21, PART A [id number] [phone] TREVOR KENNEDY PATIENT (WNR) (M) A 2002A 00 FFREY MEDICARE MEDICARE PART Nov 21, PART B [id number] [phone] TREVOR KENNEDY PATIENT (WNR) (M) B 2002A 00 FFREY MEDICARE MEDICARE PART Nov 21, PART A [id number] TREVOR KENNEDY PATIENT (WNR) (M) A 2002A FFREY MEDICARE MEDICARE PART Nov 21, PART B [id number] TREVOR KENNEDY PATIENT (WNR) (M) B 2002 27A 4 FFREY Selected Encounter This section includes the information on record at [place] for the Encounter. Date/Time Encounter Type Encounter Description Reason Provider Source January 01, 2022 08:00 Outpatient Encounter [facility] AM CONSULT IHE Encounter Template Text not used by [place] Plan of Treatment: Future Appointments (+ 6 months) and Future Tests (+/- 45 days) The Plan of Treatment section includes future care activities for the patient from all [place] treatmentfacilities. This section includes future appointments and future orders which are active, pending orscheduled.Future Appointments This section includes appointments that were scheduled to occur 6 months from the date of the Encounter, up to a maximum of 20 appointments. The data comes from all [facility]. Appointment Date/Time Appointment Type Appointment Facili ty Name January 16, 2022 09:15 AM AMBULATORY MEDICINE [place] CNTR WSTRN M [facility] Feb 16, 2022 10:00 AM [facility] Mar 23, 2022 11:30 AM [facility] [place] [facility] Mar 25, 2022 08:00 AM [facility] [place] [facility] Apr 09, 2022 09:00 AM [facility] May 18, 2022 08:30 AM [facility] Active, Pending, and Scheduled Orders This section includes a listing of several types of active, pending, and scheduled orders, including clinic medications orders, diagnostic test orders, procedure orders and consult orders; where the start date of the order is 45 days before the date of the Encounter or 45 days after the date of the Encounter. The data comes from all [place] treatment [facility]. Test Date/Time Test Type Test Details Facility Name December 31, 2021 09:10 AM Consult Order [facility] Photo Tube Assembler's Choice Social History: Smoking Status (Most current) and Tobacco Use (All prior to encounter date) This section includes the most current, and the historical, smoking and tobacco-related health factors from the [place] facility where the Encounter took place.Current Smoking Status This section includes the most current smoking, or tobacco-related health factor, from the [place] facility where the Encounter took place. Date/Time Current Smoking Status Comment Facility Feb 04, 2021 11:00 AM VA-TOBACCO NEVER USED VA C NTRL WSTRN [facility] Tobacco Use History This section includes a history of the smoking, or tobacco- related health factors, that were collected on or before the date of the Encounter. The data comes from the [place] facility where the Encounter took place. Date/Time Smoking Status/Tobacco Comment Facility Use Feb 04, 2021 11:00 VA-TOBACCO USE DECLINED VA CN TRL WSTRN AM TO ANSWER [place] [facility] May 08, 2019 11:06 VA-TOBACCO FORMER USER VA CNT RL WSTRN AM [place] [facility] May 08, 2019 11:06 VA-TOBACCO QUIT 15 YRS VA CNT RL WSTRN AM OR MORE [place] [facility] Oct 26, 2018 11:33 VA-TOBACCO NEVER USED VA CNTR L [place] AM [place] [facility] Oct 21, 2017 09:29 QUIT TOBACCO USE > 7 VA CNTRL 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, cigarettes [place] [facility] Dec 06, 2015 09:59 QUIT TOBACCO USE IN PAST [place] C NTRL WSTR[place] AM YEAR [place] [facility] Dec 05, 2014 02:31 TOBACCO INPATIENT NO USE VA C NTRL WSTRN PM 30 DAYS [place] [facility] Dec 05, 2014 01:37 LIFETIME NON-TOBACCO VA CNTRL WSTRN PM [facility] Nov 03, 2014 01:14 TOBACCO INPATIENT NO USE VA C NTRL WSTRN PM 30 DAYS [place] [facility] Nov 02, 2014 10:36 TOBACCO INPATIENT NO USE VA C NTRL WSTRN AM 30 DAYS [place] [facility] Oct 06, 2003 03:47 QUIT TOBACCO USE > 7 VA CNTRL WSTRN AM YEARS AGO [facility] Advance Directives: All historical and current Section Date Range: From patient's date of to the date document was created. This section includes ALL of a patient's completed or amended [place] Advance and Rescinded Directives. The entries below indicate that a directive exists for the patient, but an actual copy is not included with this document. The data comes from all [place] facilities. Date Advance Directives Provider Source Sep 06, 2007 ADVANCE DIRECTIVE ROBERTO FONTENOT CNTRL WSTR N [facility]
--- OUTSIDE RECORDS SUMMARY | 2022-09-09 17:42 | XMS_ITS ---
:1960 Author Organization Department [facility] rs Address [address] [place] [address] Support Name Relationship Address Phone MR MRS NERI KENNEDY Unavailable [address] [place] [address] MR MRS NERI KENNEDY Unavailable [address] [place] [address] Insurance Providers: All historical and current Section [...] Number Crowell COMMONWEAL MEDICARE MCR Oct 21, [id number] TREVOR LEMUS PATIENT CARE ADVANTAGE (WNR) 2018 [id number] [facility] (WNR) MEDICAID MEDICAID [facility] Aug 23, [facility] [id number] [phone] TREVOR TRINH PATIENT [facility] 2014 D [id number] FFREY [facility] MEDICARE PART Nov 21, PART A [id number] [phone] TREVOR KENNEDY PATIENT (WNR) (M) A 2002A 00 FFREY MEDICARE MEDICARE PART Nov 21, PART B [id number] [phone] TREVOR KENNEDY PATIENT (WNR) (M) B 2002A FFREY MEDICARE MEDICARE PART Nov 21, PART A [id number] [id number] TREVOR KENNEDY PATIENT (WNR) (M) A 2002A FFREY MEDICARE MEDICARE PART Nov 21, PART B [id number] [phone] TREVOR KENNEDY PATIENT (WNR) (M) B 2002 27A 4 FFREY Selected Encounter This section includes the information on record at [place] for the Encounter. Date/Time Encounter Type Encounter Description Reason Provider Source Jul 08, 2022 12:00 Outpatient Encounter [facility] CONSULT IHE Encounter Template Text not used by [place] Plan of Treatment: Future Appointments (+ 6 months) and Future Tests (+/- 45 days) The Plan of Treatment section includes future care activities for the patient from all [place] [facility]. This section includes future appointments and future orders which are active, pending orscheduled.Future Appointments This section includes appointments that were scheduled to occur 6 months from the date of the Encounter, up to a maximum of 20 appointments. The data comes from all [place] treatment [facility]. Appointment Date/Time Appointment Type Appointment Facili ty Name Aug 31, 2022 10:00 AM AMBULATORY - REHAB MEDICINE [facility] Sep 18, 2022 10:00 AM AMBULATORY - REHAB MEDICINE [facility] Active, Pending, and Scheduled Orders This section includes a listing of several types of active, pending, and scheduled orders, including clinic medications orders, diagnostic test orders, procedure orders and consult orders; where the start date of the order is 45 days before the date of the Encounter or 45 days after the date of the Encounter. The data comes from all [facility]. Test Date/Time Test Type Test Details Facility Name Jun 16, 2022 12:54 PM Consult Order [facility]ER[facility] [place] [facility] Cons [employer] [facility] Choice Social History: Smoking Status (Most current) and Tobacco Use (All prior to encounter date) This section includes the most current, and the historical, smoking and tobacco-related health factors from the [place] facility where the Encounter took place.Current Smoking Status This section includes the most current smoking, or tobacco-related health factor, from the [place] facility where the Encounter took place. Date/Time Current Smoking Status [facility] Facility Feb 16, 2022 10:00 AM [place]-TOBACCO FORMER USER [facility] Tobacco Use History This section includes a history of the smoking, or tobacco- related health factors, that were collected on or before the date of the Encounter. The data comes from the [place] facility where the Encounter took place. Date/Time Smoking Status/Tobacco Comment Facility Use Feb 16, 2022 10:00 VA-TOBACCO QUIT 15 YRS VA CNT RL WSTRN AM OR MORE [place] [facility] Feb 04, 2021 11:00 VA-TOBACCO NEVER USED VA CNTR L WSTRN AM [place] [facility] Feb 04, 2021 11:00 VA-TOBACCO USE DECLINED VA CN TRL WSTRN AM TO ANSWER [place] [facility] May 08, 2019 11:06 VA-TOBACCO FORMER USER VA CNT RL WSTRN AM [place] [facility] May 08, 2019 11:06 VA-TOBACCO QUIT 15 YRS VA CNT RL WSTRN AM OR MORE [place] [facility] Oct 26, 2018 11:33 VA-TOBACCO NEVER USED VA CNTR L WSTRN AM [place] [facility] Oct 21, 2017 09:29 QUIT TOBACCO USE > 7 VA CNTRL 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, cigarettes [facility] Dec 06, 2015 09:59 QUIT TOBACCO USE IN PAST [place] C NTRL WSTRN AM YEAR [place] [facility] Dec 05, 2014 02:31 TOBACCO INPATIENT NO USE VA C NTRL WSTRN PM 30 DAYS [place] [facility] Dec 05, 2014 01:37 LIFETIME NON-TOBACCO VA CNTRL WSTRN PM USER [facility] Nov 03, 2014 01:14 TOBACCO INPATIENT NO USE VA C NTRL WSTRN PM 30 DAYS [place] [facility] Nov 02, 2014 10:36 TOBACCO INPATIENT NO USE [place] C NTRL WSTRN AM 30 DAYS [place] [facility] Oct 06, 2003 03:47 QUIT TOBACCO USE > 7 VA CNTRL WSTRN AM YEARS AGO [facility] Advance Directives: All historical and current Section Date Range: From patient's date of to the date document was created. This section includes ALL of a patient's completed or amended [place] Advance and Rescinded Directives. The entries below indicate that a directive exists for the patient, but an actual copy is not included with this document. The data comes from all [place] facilities. Date Advance Directives Provider Source Sep 06, 2007 ADVANCE DIRECTIVE ROBERTO FONTENOT [place] CNTRL WSTR N [facility] Encounter Notes: All associated encounter notes This section contains the clinical notes associated to the Encounter. Date/Time Encounter Note(s) Provider Source Jul 08, 2022 12:00 AM NONVA CONSULT: [place] CN[place] LOCAL TITLE: COMMUNITY CARE-CONSULT RESULT NOTE [facility] STANDARD TITLE: NONVA CONSULT DATE OF NOTE: JUL 08, 2022 ENTRY DATE: JUL 27 022@09:25:31 AUTHOR: IHSAN UREÑA EXP COSIGNER: URGENCY: STATUS: COMPLETED VistA Imaging - Scanned Document SCANNED DOCUMENT SIGNATURE NOT REQUIRED Electronically Filed: 07/27/2022 by: IHSAN UREÑA ELECTRICAL AUTOMATION ENGINEER
--- OUTSIDE RECORDS SUMMARY | 2022-09-09 17:43 | XMS_ITS | Encounter Summary ---
:1960 Author Organization Department [facility] rs Address [address] [place] [id number] Support Name Relationship Address Phone MR MRS NERI KENNEDY Unavailable [address] [place] [address] MR MRS NERI KENNEDY Unavailable [address] [place] [address] Insurance Providers: All historical and current Section [...] Number Crowell [employer] MEDICARE MCR Oct 21, [id number] TREVOR LEMUS PATIENT CARE ADVANTAGE (WNR) 2018 [id number] [facility] (WNR) MEDICAID MEDICAID [facility] Aug 23, [facility] [id number] [phone] [facility]OR TRINH [facility] [id number] [facility] MED[facility] PART Nov 21, PART A [id number] [phone] TREVOR KENNEDY PATIENT (WNR) (M) A 2002A 00 FFREY MEDICARE MEDICARE PART Nov 21, PART B [id number] [id number] TREVOR KENNEDY PATIENT (WNR) (M) B 2002A FFREY MEDICARE MEDICARE PART Nov 21, PART A [id number] TREVOR KENNEDY PATIENT (WNR) (M) A 2002A FFREY MEDICARE MEDICARE PART Nov 21, PART B [id number] TREVOR KENNEDY PATIENT (WNR) (M) B 2002 27A 4 FFREY Selected Encounter This section includes the information on record at [place] for the Encounter. Date/Time Encounter Type Encounter Description Reason Provider Source Jul 21, 2022 12:00 Outpatient Encounter [facility] CONSULT IHE Encounter Template Text not used by [place] Plan of Treatment: Future Appointments (+ 6 months) and Future Tests (+/- 45 days) The Plan of Treatment section includes future care activities for the patient from all [place] [facility]. This section includes future appointments and future orders which are active, pending orscheduled.Future Appointments This section includes appointments that were scheduled to occur 6 months from the date of the Encounter, up to a maximum of 20 appointments. The data comes from all [facility]. Appointment Date/Time Appointment Type Appointment Facili ty Name Aug 31, 2022 10:00 AM AMBULATORY - REH[facility] MEDIC[facility] Sep 18, 2022 10:00 AM AMBULATORY - REHAB MEDICINE [facility] Active, Pending, and Scheduled Orders This section includes a listing of several types of active, pending, and scheduled orders, including clinic medications orders, diagnostic test orders, procedure orders and consult orders; where the start date of the order is 45 days before the date of the Encounter or 45 days after the date of the Encounter. The data comes from all [facility]. Test Date/Time Test Type Test Details Facility Name Jun 16, 2022 12:54 PM Consult Order PHYSICAL THERAPY/NHM [place] CN TRL WSTRN OUTPT Cons Button [facility]hole [facility] [place] [facility] [facility] Sep 03, 2022 10:05 AM Consult Order PROSTHETICS REQUEST Cons V A CNTRL WSTRN Button Buttonhole Marker's Choice [place] [facility] Sep 03, 2022 12:29 PM Consult Order PROSTHETICS REQUEST Cons V A CNTR WSTRN Button [facility]hole [facility] Social History: Smoking Status (Most current) [...] AM VA-TOBACCO FORMER USER VA CNTRL WSTRN [facility] Tobacco Use History This section includes a history of the smoking, or tobacco- related health factors, that were collected on or before the date of the Encounter. The data comes from the [place] facility where the Encounter took place. Date/Time Smoking Status/Tobacco Comment Facility Use Feb 16, 2022 10:00 VA-TOBACCO QUIT 15 YRS VA CNT RL WSTRN AM OR MORE [place] [facility] Feb 04, 2021 11:00 VA-TOBACCO NEVER USED VA CNTR L WSTRN AM [place] [facility] Feb 04, 2021 11:00 VA-TOBACCO USE DECLINED VA CN TRL WSTRN AM TO ANSWER [place] [facility] May 08, 2019 11:06 VA-TOBACCO FORMER USER VA CNT RL WSTRN AM [place] [facility] May 08, 2019 11:06 VA-TOBACCO QUIT 15 YRS VA CNT RL WSTRN AM OR MORE [place] [facility] Oct 26, 2018 11:33 VA-TOBACCO NEVER USED VA CNTR L WSTRN AM [place] [facility] Oct 21, 2017 09:29 QUIT TOBACCO USE > 7 VA CNTRL 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, cigarettes [facility] Dec 06, 2015 09:59 QUIT TOBACCO USE IN PAST VA C NTRL WSTRN [facility] Dec 05, 2014 02:31 TOBACCO INPATIENT NO USE VA C NTRL WSTRN PM 30 DAYS [place] [facility] Dec 05, 2014 01:37 LIFETIME NON-TOBACCO VA CNTRL WSTRN PM USER [facility] Nov 03, 2014 01:14 TOBACCO INPATIENT NO USE VA C NTRL WSTRN PM 30 DAYS [place] [facility] Nov 02, 2014 10:36 TOBACCO INPATIENT NO USE VA C NTRL WSTRN AM 30 DAYS [place] [facility] Oct 06, 2003 03:47 QUIT TOBACCO USE > 7 VA CNTRL WSTRN AM YEARS AGO [facility] Advance Directives: All historical and current [...] DIRECTIVE ROBERTO FONTENOT [place] CNTRL WSTR N [facility] Encounter Notes: All associated encounter notes This section contains the clinical notes associated to the Encounter. Date/Time Encounter Note(s) Provider Source Jul 21, 2022 12:00 AM NONVA CONSULT: [place] NORAH W STRN LOCAL TITLE: COMMUNITY CARE-CONSULT RESULT NOTE [facility] STANDARD TITLE: NONVA CONSULT DATE OF NOTE: JUL 21, 2022 ENTRY DATE: AUG 04 022@12:57:35 AUTHOR: AMENA CABRERA EXP COSIGNER: URGENCY: STATUS: COMPLETED VistA Imaging - Scanned Document SCANNED DOCUMENT SIGNATURE NOT REQUIRED Electronically Filed: 08/04/2022 by: AMENA CABRERA JELLY FILTER TENDER
--- OUTSIDE RECORDS SUMMARY | 2022-09-09 17:44 | XMS_ITS ---
:1960 Author Organization Department [facility] rs Address [address] [place] [address] Support Name Relationship Address Phone MR MRS NERI KENNEDY Unavailable [address] [place] [address] MR MRS NERI KENNEDY Unavailable [address] [place] [address] Insurance Providers: All historical and current Section [...] Number Crowell [employer]AL MEDICARE MCR Oct 21, [id number] TREVOR LEMUS PATIENT CARE ADVANTAGE (WNR) 2018 [id number] [facility] (WNR) MEDICAID MEDICAID [facility] Aug 23, [facility] [id number] [phone] [facility] [id number] [facility] MEDICARE PART Nov 21, PART A [id number] [phone] TREVOR KENNEDY PATIENT (WNR) (M) A 2002A 00 FFREY MEDICARE MEDICARE PART Nov 21, PART B [id number] [phone] TREVOR KENNEDY PATIENT (WNR) (M) B 2002A FFREY MEDICARE MEDICARE PART Nov 21, PART A [id number] TREVOR KENNEDY PATIENT (WNR) (M) A 2002A FFREY MEDICARE MEDICARE PART Nov 21, PART B [id number] TREVOR KENNEDY PATIENT (WNR) (M) B 2002 27A 4 FFREY Selected Encounter This section includes the information on record at [place] for the Encounter. Date/Time Encounter Type Encounter Description Reason Provider Source Jul 20, 2022 12:00 Outpatient Encounter [facility] CONSULT IHE Encounter Template Text not used by [place] Plan of Treatment: Future Appointments (+ 6 months) and Future Tests (+/- 45 days) The Plan of Treatment section includes future care activities for the patient from [facility] [place] [facility]. This section includes future appointments and future orders which are active, pending orscheduled.Future Appointments This section includes appointments that were scheduled to occur 6 months from the date of the Encounter, up to a maximum of 20 appointments. The data comes from all [facility]. Appointment Date/Time Appointment Type Appointment Facili ty Name Aug 31, 2022 10:00 AM AMBULATORY - REHAB MEDICINE [facility] Sep 18, 2022 10:00 AM AMBULATORY - REHAB MEDICINE [facility] Active, Pending, and Scheduled Orders This section includes a listing of several types of active, pending, and scheduled orders, including clinic medications orders, diagnostic test orders, procedure orders and consult orders; where the start date of the order is 45 days before the date of the Encounter or 45 days after the date of the Encounter. The data comes from all [facility]. Test Date/Time Test Type Test Details Facility Name Jun 16, 2022 12:54 PM Consult Order PHYSICAL THERAPY/NHM [place] CN TRL WSTR[place] OUTPT Cons Motorcycle Repaire[facility] [place] [facility] [facility] Sep 03, 2022 10:05 AM Consult Order PROSTHETICS REQUEST Cons V A CNTRL WSTRN Motorcycle Repairer's Choice [place] [facility] Sep 03, 2022 12:29 PM Consult Order PROSTHETICS REQUEST Cons V A CNTR WSTRN Motorcycle Repairer's Choice [place] [facility] Social History: Smoking Status (Most current) and Tobacco Use (All prior to encounter date) This section includes the most current, and the historical, smoking and tobacco-related health factors from the [place] facility where the Encounter took place.Current Smoking Status This section includes the most current smoking, or tobacco-related health factor, from the [place] facility where the Encounter took place. Date/Time Current Smoking Status Comment Facility Feb 16, 2022 10:00 AM VA-TOBACCO FORMER USER VA CNTRL WSTRN [facility] Tobacco Use History This section includes a history of the smoking, or tobacco- related health factors, that were collected on or before the date of the Encounter. The data comes from the [place] facility where the Encounter took place. Date/Time Smoking Status/Tobacco Comment Facility Use Feb 16, 2022 10:00 VA-TOBACCO QUIT 15 YRS VA CNT RL WSTRN AM OR MORE [place] [facility] Feb 04, 2021 11:00 VA-TOBACCO NEVER USED VA CNTR L WSTRN AM [place] [facility] Feb 04, 2021 11:00 VA-TOBACCO USE DECLINED VA CN TRL WSTRN AM TO ANSWER [place] [facility] May 08, 2019 11:06 VA-TOBACCO FORMER USER VA CNT RL WSTRN AM [place] [facility] May 08, 2019 11:06 VA-TOBACCO QUIT 15 YRS VA CNT RL WSTRN AM OR MORE [place] [facility] Oct 26, 2018 11:33 VA-TOBACCO NEVER USED VA CNTR L WSTRN AM [place] [facility] Oct 21, 2017 09:29 QUIT TOBACCO USE > 7 VA CNTRL 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, cigarettes [facility] Dec 06, 2015 09:59 QUIT TOBACCO USE IN PAST [facility] C NTRL [facility]STR[facility] Dec 05, 2014 02:31 TOBACCO INPATIENT NO USE VA C NTRL WSTRN PM 30 DAYS [place] [facility] Dec 05, 2014 01:37 LIFETIME NON-TOBACCO VA CNTRL WSTRN PM [facility] Nov 03, 2014 01:14 TOBACCO INPATIENT NO USE VA C NTRL WSTRN PM 30 DAYS [place] [facility] Nov 02, 2014 10:36 TOBACCO INPATIENT NO USE VA C NTRL WSTRN AM 30 DAYS [place] [facility] Oct 06, 2003 03:47 QUIT TOBACCO USE > 7 VA CNTRL WSTRN AM YEARS AGO [facility] Advance Directives: All historical and current Section Date Range: From patient's date of to the date document was created. This section includes ALL of a patient's completed or amended [place] Advance and Rescinded Directives. The entries below indicate that a directive exists for the patient, but an actual copy is not included with this document. The data comes from all [place] facilities. Date Advance Directives Provider Source Sep 06, 2007 ADVANCE DIRECTIVE ROBERTO FONTENOT [place] CNTRL WSTR N [facility] Encounter Notes: All associated encounter notes This section contains the clinical notes associated to the Encounter. Date/Time Encounter Note(s) Provider Source Jul 20, 2022 12:00 AM NONVA CONSULT: [place] NORAH W STRN LOCAL TITLE: COMMUNITY CARE-CONSULT RESULT NOTE [facility] STANDARD TITLE: NONVA CONSULT DATE OF NOTE: JUL 20, 2022 ENTRY DATE: AUG 05 022@10:51:02 AUTHOR: AMENA CABRERA EXP COSIGNER: URGENCY: STATUS: COMPLETED VistA Imaging - Scanned Document SCANNED DOCUMENT SIGNATURE NOT REQUIRED Electronically Filed: 08/05/2022 by: AMENA CABRERA MATERNAL CHILD NURSE
--- OUTSIDE RECORDS SUMMARY | 2022-09-09 17:44 | XMS_ITS | Encounter Summary ---
:1960 Author Organization Department [facility] rs Address [address] [place] [address] Support Name Relationship Address Phone MR MRS NERI KENNEDY Unavailable [address] [phone] [address] [place] [address] MR MRS NERI KENNEDY Unavailable [address] [phone] [address] [place] [address] Insurance Providers: All historical and current Section [...] Number Crowell [employer]AL MEDICARE MCR Oct 21, [id number] TREVOR LEMUS PATIENT CARE ADVANTAGE (WNR) 2018 [id number] [facility] (WNR) MEDICAID MEDICAID [facility] Aug 23, [facility] [id number] [phone] TREVOR TRINH [facility] D [id number] [address] [facility] MEDICARE PART Nov 21, PART A [id number] [phone] TREVOR KENNEDY PATIENT (WNR) (M) A 2002A 00 FFREY MEDICARE MEDICARE PART Nov 21, PART B [id number] [phone] TREVOR KENNEDY PATIENT (WNR) (M) B 2002A FFREY MEDICARE MEDICARE PART Nov 21, PART A [id number] TREVOR KENNEDY PATIENT (WNR) (M) A 2002A FFREY MEDICARE MEDICARE PART Nov 21, PART B [id number] TREVOR KENNEDY PATIENT (WNR) (M) B 2002 27A 4 FFREY Selected Encounter This section includes the information on record at [place] for the Encounter. Date/Time Encounter Type Encounter Description Reason Provider Source Jul 28, 2022 12:00 Outpatient Encounter [facility] CONSULT IHE Encounter Template Text not used by [place] Plan of Treatment: Future Appointments (+ 6 months) and Future Tests (+/- 45 days) The Plan of Treatment section includes future care activities for the patient from all [place] [facility]. This section includes future appointments and future orders which are active, pending orscheduled.Future Appointments This section includes appointments that were scheduled to occur 6 months from the date of the Encounter, up to a maximum of 20 appointments. The data comes from all [facility]. Appointment Date/Time Appointment Type Appointment Facili ty Name Aug 31, 2022 10:00 AM AMBULATORY - REHAB MEDICINE [facility] Sep 18, 2022 10:00 AM AMBULATORY - REHAB MEDICINE [facility] Active, Pending, and Scheduled Orders This section includes a listing of several types of active, pending, and scheduled orders, including clinic medications orders, diagnostic test orders, procedure orders and consult orders; where the start date of the order is 45 days before the date of the Encounter or 45 days after the date of the Encounter. The data comes from all [facility]. Test Date/Time Test Type Test Details Facility Name Jun 16, 2022 12:54 PM Consult Order PHYSICAL THERAPY/NHM [place] CN TRL WSTR[place] OUTPT Cons Account Assistant's [place] [facility] Sep 03, 2022 10:05 AM Consult Order PROSTHETICS REQUEST Cons V A CNTRL WSTRN Account Assistant's Choice [place] [facility] Sep 03, 2022 12:29 PM Consult Order PROSTHETICS REQUEST Cons V A CNTR WSTRN Account [facility] Social History: Smoking Status (Most current) and Tobacco Use (All prior to encounter date) This section includes the most current, and the historical, smoking and tobacco-related health factors from the [place] facility where the Encounter took place.Current Smoking Status This section includes the most current smoking, or tobacco-related health factor, from the [place] facility where the Encounter took place. Date/Time Current Smoking Status Comment Facility Feb 16, 2022 10:00 AM VA-TOBACCO FORMER USER VA CNTRL WSTRN [facility] Tobacco Use History This section includes a history of the smoking, or tobacco- related health factors, that were collected on or before the date of the Encounter. The data comes from the [place] facility where the Encounter took place. Date/Time Smoking Status/Tobacco Comment Facility Use Feb 16, 2022 10:00 VA-TOBACCO QUIT 15 YRS VA CNT RL WSTRN AM OR MORE [place] [facility] Feb 04, 2021 11:00 VA-TOBACCO NEVER USED VA CNTR L WSTRN AM [place] [facility] Feb 04, 2021 11:00 VA-TOBACCO USE DECLINED VA CN TRL WSTRN AM TO ANSWER [place] [facility] May 08, 2019 11:06 VA-TOBACCO FORMER USER VA CNT RL WSTRN AM [place] [facility] May 08, 2019 11:06 VA-TOBACCO QUIT 15 YRS VA CNT RL WSTRN AM OR MORE [place] [facility] Oct 26, 2018 11:33 VA-TOBACCO NEVER USED VA CNTR L WSTRN AM [place] [facility] Oct 21, 2017 09:29 QUIT TOBACCO USE > 7 VA CNTRL 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, cigarettes [facility] Dec 06, 2015 09:59 QUIT TOBACCO USE IN PAST VA C NTRL WSTRN [facility] Dec 05, 2014 02:31 TOBACCO INPATIENT NO USE VA C NTRL WSTRN PM 30 DAYS [place] [facility] Dec 05, 2014 01:37 LIFETIME NON-TOBACCO VA CNTRL WSTRN PM [facility] Nov 03, 2014 01:14 TOBACCO INPATIENT NO USE VA C NTRL WSTRN PM 30 DAYS [place] [facility] Nov 02, 2014 10:36 TOBACCO INPATIENT NO USE VA C NTRL WSTRN AM 30 DAYS [place] [facility] Oct 06, 2003 03:47 QUIT TOBACCO USE > 7 VA CNTRL WSTRN AM YEARS AGO [facility] Advance Directives: All historical and current Section Date Range: From patient's date of to the date document was created. This section includes ALL of a patient's completed or amended [place] Advance and Rescinded Directives. The entries below indicate that a directive exists for the patient, but an actual copy is not included with this document. The data comes from all [place] facilities. Date Advance Directives Provider Source Sep 06, 2007 ADVANCE DIRECTIVE ROBERTO FONTENOT [place] CNTRL WSTR N [facility] Encounter Notes: All associated encounter notes This section contains the clinical notes associated to the Encounter. Date/Time Encounter Note(s) Provider Source Jul 28, 2022 12:00 AM NONVA CONSULT: [place] CNTRL W STRN LOCAL TITLE: COMMUNITY CARE-CONSULT RESULT NOTE [facility] STANDARD TITLE: NONVA CONSULT DATE OF NOTE: JUL 28, 2022 ENTRY DATE: AUG 07 022@13:23:06 AUTHOR: BRICE MA EXP COSIGNER: URGENCY: STATUS: COMPLETED VistA Imaging - Scanned Document SCANNED DOCUMENT SIGNATURE NOT REQUIRED Electronically Filed: 08/07/2022 by: BRICE MA
--- OUTSIDE RECORDS SUMMARY | 2022-09-09 17:45 | XMS_ITS | Encounter Summary ---
:1960 Author Organization Department [facility] rs Address [address] [place] [id number] Support Name Relationship Address Phone MR MRS NERI KENNEDY Unavailable [address] [place] [address] MR MRS NERI KENNEDY Unavailable [address] [place] [address] Insurance Providers: All historical and current Section [...] Number [employer] MEDICARE MCR Oct 21, [id number] TREVOR LEMUS PATIENT CARE ADVANTAGE (WNR) [id number] [facility] (WNR) MEDICAID MEDICAID [facility] Aug 23, [facility] [id number] [phone] TREVOR TRINH PATIENT [facility] 2014 D [id number] [facility] PART Nov 21, PART A [id number] [phone] TREVOR KENNEDY PATIENT (WNR) (M) A 2002A 00 [facility] MEDICARE MEDICARE PART Nov 21, PART B [id number] [phone] TREVOR KENNEDY PATIENT (WNR) (M) B 2002A [facility] MEDICARE MEDICARE PART Nov 21, PART A [id number] TREVOR KENNEDY PATIENT (WNR) (M) A 2002A [facility] MEDICARE MEDICARE PART Nov 21, PART B [id number] TREVOR KENNEDY PATIENT (WNR) (M) B 2002 27A 4 [facility] Selected Encounter This section includes the information on record at [place] for the Encounter. Date/Time Encounter Type Encounter Description Reason Provider Source Jul 27, 2022 12:00 Outpatient Encounter [facility] CONSULT IHE Encounter Template Text not used by [place] Plan of Treatment: Future Appointments (+ 6 months) and Future Tests (+/- 45 days) The Plan of Treatment section includes future care activities for the patient from all [place] [facility]. This section includes future appointments and future orders which are active, pending orscheduled.Future Appointments This section includes appointments that were scheduled to occur 6 months from the date of the Encounter, up to a maximum of 20 appointments. The data comes from all [facility]. Appointment Date/Time Appointment Type Appointment Facili ty Name Aug 31, 2022 10:00 AM AMBULATORY - REHAB MEDICINE [facility] Sep 18, 2022 10:00 AM AMBULATORY - REHAB MEDICINE [facility] Active, Pending, and Scheduled Orders This section includes a listing of several types of active, pending, and scheduled orders, including clinic medications orders, diagnostic test orders, procedure orders and consult orders; where the start date of the order is 45 days before the date of the Encounter or 45 days after the date of the Encounter. The data comes from all [facility]. Test Date/Time Test Type Test Details Facility Name Jun 16, 2022 12:54 PM Consult Order PHYSICAL THERAPY/NH[facility] CN TRL [facility] OUTPT Cons [facility] [place] [facility] [facility] Sep 03, 2022 10:05 AM Consult Order PROSTHETICS REQUEST Cons V A CNTRL [facility] [place] [facility] Sep 03, 2022 12:29 PM Consult Order PROSTHETICS REQUEST Cons V A [facility] Social History: Smoking Status (Most current) [...] AM VA-TOBACCO FORMER USER VA CNTRL WSTRN [facility] Tobacco Use History This section includes a history of the smoking, or tobacco- related health factors, that were collected on or before the date of the Encounter. The data comes from the [place] facility where the Encounter took place. Date/Time Smoking Status/Tobacco Comment Facility Use Feb 16, 2022 10:00 VA-TOBACCO QUIT 15 YRS VA CNT RL WSTRN AM OR MORE [place] [facility] Feb 04, 2021 11:00 VA-TOBACCO NEVER USED VA CNTR L [facility]STRN AM [place] [facility] Feb 04, 2021 11:00 VA-TOBACCO USE DECLINED VA CN TRL WSTRN AM TO ANSWER [place] [facility] May 08, 2019 11:06 VA-TOBACCO FORMER USER VA CNT RL WSTRN AM [place] [facility] May 08, 2019 11:06 VA-TOBACCO QUIT 15 YRS VA CNT RL WSTRN AM OR MORE [place] [facility] Oct 26, 2018 11:33 VA-TOBACCO NEVER USED VA CNTR L [facility]N AM [place] [facility] Oct 21, 2017 09:29 QUIT TOBACCO USE > 7 VA CNTRL 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, [facility] Dec 06, 2015 09:59 QUIT TOBACCO USE IN PAST VA C NTRL WSTRN AM YE[facility] Dec 05, 2014 02:31 TOBACCO INPATIENT NO USE VA C NTRL WSTRN PM 30 DAYS [place] [facility] Dec 05, 2014 01:37 LIFETIME NON-TOBACCO VA CNTRL WSTRN PM USER [facility] Nov 03, 2014 01:14 TOBACCO INPATIENT NO USE VA C NTRL WSTRN PM 30 DAYS [place] [facility] Nov 02, 2014 10:36 TOBACCO INPATIENT NO USE VA C NTRL WSTRN AM 30 DAYS [place] [facility] Oct 06, 2003 03:47 QUIT TOBACCO USE > 7 VA CNTRL WSTRN AM YEARS AGO [facility] Advance Directives: All historical and current [...] DIRECTIVE ROBERTO FONTENOT SD CNTRL WSTR N [facility] Encounter Notes: All associated encounter notes This section contains the clinical notes associated to the Encounter. Date/Time Encounter Note(s) Provider Source Jul 27, 2022 12:00 AM NONVA CONSULT: [place] CNTRL W STRN LOCAL TITLE: COMMUNITY CARE-CONSULT RESULT NOTE [facility] STANDARD TITLE: NONVA CONSULT DATE OF NOTE: JUL 27, 2022 ENTRY DATE: AUG 13 022@09:24:55 AUTHOR: JORGE BASURTO EXP COSIGNER: URGENCY: STATUS: COMPLETED VistA Imaging - Scanned Document SCANNED DOCUMENT SIGNATURE NOT REQUIRED Electronically Filed: 08/13/2022 by: JORGE BASURTO
--- OUTSIDE RECORDS SUMMARY | 2022-09-09 17:46 | XMS_ITS | Encounter Summary ---
:1960 Author Organization Department [facility] rs Address [address] [place] [address] Support Name Relationship Address Phone MR MRS NERI KENNEDY Unavailable [address] [place] [address] MR MRS NERI KENNEDY Unavailable [address] [place] [address] Insurance Providers: All historical and current Section [...] Number [employer] MEDIC[employer] MCR Oct 21, [id number] TREVOR LEMUS PATIENT CARE ADVANTAGE (WNR) 2018 [id number] (WNR) MEDICAID MEDICAID [facility] Aug 23, [facility] [id number] [phone] TREVOR TRINH PATIENT [facility] 2014 D [id number] [facility] PART Nov 21, PART A [id number] [phone] TREVOR KENNEDY PATIENT (WNR) (M) A 2002A 00 FF[facility] MEDICARE MEDICARE PART Nov 21, PART B [id number] [phone] TREVOR KENNEDY PATIENT (WNR) (M) B 2002A [facility] MEDICARE MEDICARE PART Nov 21, PART A [id number] TREVOR KENNEDY PATIENT (WNR) (M) A 2002A [facility] MEDICARE MEDICARE PART Nov 21, PART B [id number] TREVOR KENNEDY PATIENT (WNR) (M) B 2002 27A 4 [facility] Selected Encounter This section includes the information on record at [place] for the Encounter. Date/Time Encounter Type Encounter Description Reason Provider Source Aug 03, 2022 12:00 Outpatient Encounter [facility] CONSULT IHE Encounter Template Text not used by [place] Plan of Treatment: Future Appointments (+ 6 months) and Future Tests (+/- 45 days) The Plan of Treatment section includes future care activities for the patient from all [place] [facility]. This section includes future appointments and future orders which are active, pending orscheduled.Future Appointments This section includes appointments that were scheduled to occur 6 months from the date of the Encounter, up to a maximum of 20 appointments. The data comes from all [facility]. Appointment Date/Time Appointment Type Appointment Facili ty Name Aug 31, 2022 10:00 AM AMBULATORY - REHAB MEDICINE [facility] Sep 18, 2022 10:00 AM AMBULATORY - REHAB MEDICINE [facility] Active, Pending, and Scheduled Orders This section includes a listing of several types of active, pending, and scheduled orders, including clinic medications orders, diagnostic test orders, procedure orders and consult orders; where the start date of the order is 45 days before the date of the Encounter or 45 days after the date of the Encounter. The data comes from all [facility]. Test Date/Time Test Type Test Details Facility Name Sep 03, 2022 10:05 AM Consult Order PROSTHETICS REQUEST Cons V A [facility] Ex[facility]'s Choice [facility] Sep 03, 2022 12:29 PM Consult Order PROSTHETICS REQUEST Cons V A [facility] Livestock Exhib[facility] Choice [facility] Social History: Smoking Status (Most [...] Encounter took place. Date/Time Current Smoking Status [facility] Facility Feb 16, 2022 10:00 AM [place]-TOBACCO FORMER USER [facility] Tobacco Use History This section includes a history of the smoking, or tobacco- related health factors, that were collected on or before the date of the Encounter. The data comes from the [place] facility where the Encounter took place. Date/Time Smoking Status/Tobacco Comment Facility Use Feb 16, 2022 10:00 VA-TOBACCO QUIT 15 YRS VA CNT RL [facility]STRN AM OR MORE [place] [facility] Feb 04, 2021 11:00 VA-TOBACCO NEVER USED VA CNTR L [facility] AM [place] [facility] Feb 04, 2021 11:00 VA-TOBACCO USE DECLINED VA CN TRL WSTRN AM TO ANSWER [place] [facility] May 08, 2019 11:06 VA-TOBACCO FORMER USER VA CNT RL [facility] AM [place] [facility] May 08, 2019 11:06 VA-TOBACCO QUIT 15 YRS VA CNT RL WSTRN AM OR MORE [place] [facility] Oct 26, 2018 11:33 VA-TOBACCO NEVER USED VA CNTR L [facility] AM [place] [facility] Oct 21, 2017 09:29 QUIT TOBACCO USE > 7 VA CNTRL 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 Dec 06, 2015 09:59 QUIT TOBACCO USE IN PAST VA C NTRL WSTRN AM YEAR [place] [facility] Dec 05, 2014 02:31 TOBACCO INPATIENT NO USE VA C NTRL WSTR[facility] PM 30 DAYS [place] [facility] Dec 05, 2014 01:37 LIFETIME NON-TOBACCO VA CN[facility] PM USER [place] [facility] Nov 03, 2014 01:14 TOBACCO INPATIENT NO USE VA C NTRL W[facility] PM 30 DAYS [place] [facility] Nov 02, 2014 10:36 TOBACCO INPATIENT NO USE VA C NTRL WSTRN AM 30 DAYS [place] [facility] Oct 06, 2003 03:47 QUIT TOBACCO USE > 7 VA CNTRL WSTRN AM YEARS AGO [facility] Advance Directives: All historical and [...] Sep 06, 2007 ADVANCE DIRECTIVE ROBERTO FONTENOT [facility] [place] [facility] Encounter Notes: All associated encounter notes This section contains the clinical notes associated to the Encounter. Date/Time Encounter Note(s) Provider Source Aug 03, 2022 12:00 AM NONVA CONSULT: LINDA ALMAZAN W STRN LOCAL TITLE: COMMUNITY CARE-CONSULT RESULT NOTE [facility] STANDARD TITLE: NONVA CONSULT DATE OF NOTE: AUG 03, 2022 ENTRY DATE: AUG 19 022@10:39:22 AUTHOR: AMENA CABRERA EXP COSIGNER: URGENCY: STATUS: COMPLETED VistA Imaging - Scanned Document SCANNED DOCUMENT SIGNATURE NOT REQUIRED Electronically Filed: 08/19/2022 by: AMENA CABRERA IT PROGRAM ENGAGEMENT DIRECTOR
--- OUTSIDE RECORDS SUMMARY | 2022-09-09 17:46 | XMS_ITS | Encounter Summary ---
:1960 Author Organization [facility] rs Address [address] [place] [id number] Support Name Relationship Address Phone MR MRS NERI KENNEDY Unavailable [address] [place] [address] MR MRS NERI KENNEDY Unavailable [address] [place] [address] Insurance Providers: All historical and current Section [...] Number Crowell [employer] MEDICARE MCR Oct 21, [id number] [phone] RONNY TREVOR HERNANDEZ PATIENT CARE ADVANTAGE (WNR) [phone] [facility] (WNR) MEDICAID MEDICAID [facility] Aug 23, [facility] [id number] [phone] TREVOR TRINH PATIENT [facility] 2014 D [id number] FFREY [facility] MEDICARE MEDICARE PART Nov 21, PART A [id number] [phone] TREVOR KENNEDY PATIENT (WNR) (M) A 2002A 00 FFREY MEDICARE MEDICARE PART Nov 21, PART B [id number] [phone] TREVOR KENNEDY PATIENT (WNR) (M) B 2002A 00 FFREY MEDICARE MEDICARE PART Nov 21, PART A [id number] TREVOR KENNEDY PATIENT (WNR) (M) A 2002A FFREY MEDICARE MEDICARE PART Nov 21, PART B [id number] [id number] TREVOR KENNDEY PATIENT (WNR) (M) B 2002 [id number] 4 FFREY Selected Encounter This section includes the information on record at [place] for the Encounter. Date/Time Encounter Type Encounter Reason Provider Source Description Aug 31, 2022 SELF CARE WHEELCHAIR & ICD-10-CM VINEET ALEXANDRE 10:00 AM MNGMENT ADVAN MOBILITY S88.919S Complete L TRAINING traumatic amp of unsp low leg, level unsp, sequela with Provider Comments: 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, Level unspecified, Sequela IHE Encounter Template Text not used by [place] Assessments - Encounter Diagnoses This section includes the primary and secondary diagnoses documented for the Encounter. Date/Time Primary/Secondary Diagnosis Name Provider Source Diagnosis Sep 03, 2022 PRIMARY Complete VINEET ALEXANDRE [facility] WSN 09:20 AM traumatic amp L [place] [facility] of unsp low leg, level unsp, sequela Plan of Treatment: Future Appointments (+ 6 months) and Future Tests (+/- 45 days) The Plan of Treatment section includes future care activities for the patient from all [place] [facility]. This section includes future appointments and future orders which are active, pending orscheduled.Future Appointments This section includes appointments that were scheduled to occur 6 months from the date of the Encounter, up to a maximum of 20 appointments. The data comes from all [place] treatment facilities. Appointment Date/Time Appointment Type Appointment Facili ty Name Sep 18, 2022 10:00 AM AMBULATORY - REHAB MEDICINE [facility] W STRN [place] [facility] Feb 16, 2023 09:30 AM [facility] [place] [facility] Active, Pending, and Scheduled Orders This section includes a listing of several types of active, pending, and scheduled orders, including clinic medications orders, diagnostic test orders, procedure orders and consult orders; where the start date of the order is 45 days before the date of the Encounter or 45 days after the date of the Encounter. The data comes from all [place] treatment facilities. Test Date/Time Test Type Test Details Facility Name Sep 03, 2022 10:05 AM Consult Order PROSTHETICS REQUEST Cons V A CNTRL WSN Photolithographer's Choice [place] [facility] Sep 03, 2022 12:29 PM Consult Order PROSTHETICS REQUEST Cons V A CNTRL WSTRN Photolithographer's Choice [facility] Social History: Smoking Status (Most current) [...] AM VA-TOBACCO [facility] Tobacco Use History This section includes a history of the smoking, or tobacco- related health factors, that were collected on or before the date of the Encounter. The data comes from the [place] facility where the Encounter took place. Date/Time Smoking Status/Tobacco Comment Facility Use Feb 16, 2022 10:00 VA-TOBACCO QUIT 15 YRS VA CNT RL WSTRN AM [facility] Feb 04, 2021 11:00 VA-TOBACCO NEVER USED VA CNTR L WSTRN AM [place] [facility] Feb 04, 2021 11:00 VA-TOBACCO USE DECLINED VA CN TRL WSTRN AM TO [facility] May 08, 2019 11:06 VA-TOBACCO FORMER USER VA CNT RL WSTRN AM [place] [facility] May 08, 2019 11:06 VA-TOBACCO QUIT 15 YRS VA CNT RL WSTRN AM OR MORE [place] [facility] Oct 26, 2018 11:33 VA-TOBACCO NEVER USED VA CNTR L [facility]STRN AM [place] [facility] Oct 21, 2017 09:29 QUIT TOBACCO USE > 7 VA CNTRL 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, cigarettes [place] [facility] Dec 06, 2015 09:59 QUIT TOBACCO USE IN PAST VA C NTRL WSTRN AM YEAR [place] [facility] Dec 05, 2014 02:31 TOBACCO INPATIENT NO USE VA C NTRL WSTRN PM 30 DAYS [place] [facility] Dec 05, 2014 01:37 LIFETIME NON-TOBACCO [facility] Nov 03, 2014 01:14 TOBACCO INPATIENT NO USE VA C NTRL WSTRN PM 30 DAYS [place] [facility] Nov 02, 2014 10:36 TOBACCO INPATIENT NO USE VA C NTRL WSTRN AM 30 DAYS [place] [facility] Oct 06, 2003 03:47 QUIT TOBACCO USE > 7 [facility] WSTRN AM YEARS AGO [facility] Advance Directives: All historical and current [...] Sep 06, 2007 ADVANCE DIRECTIVE ROBERTO F[facility]ENOT [facility] Encounter Notes: All associated encounter notes This section contains the clinical notes associated to the Encounter. Date/Time Encounter Note(s) Provider Source Aug 31, 2022 09:58 AM OCCUPATIONAL THERAPY NOTE: VINEET ALEXANDRE [facility] WSTRN LOCAL TITLE: OCCUPATIONAL THERAPY INITIAL NOTE [facility] STANDARD TITLE: OCCUPATIONAL THERAPY NOTE DATE OF NOTE: AUG 31, 2022@09:58 ENTRY DATE: AUG 31, 2022@09:59 AUTHOR: VINEET ALEXANDRE EXP COSIGNER: URGENCY: STATUS: COMPLETED The practitioner's co-signature on this note si gnifies agreement with plan of care and clinical diagnosis code. How does the patient/client best learn? Picture s, Reading, Listening, Demonstration Does the patient/client have any cultural and re ligious beliefs, emotional barriers, physical or cogniti ve limitations, and communication barriers which may impact his/her ability to learn? Desire and motivation to learn? Occupational Therapy Evaluation (Wheelchair Clin ic) Initial Evaluation date: Date of note: 08/31/22 Re-evaluation date: Treatment #: Treatment time: 53' Diagnosis: Complete Traumatic Amputation of unsp ecified lower Leg, Level unspecified, Sequela(ICD-10-CM S88.919S) Provider: GABINO Schmidt S/ Subjective AND Reason for Re ferral: pt is a 62 year old male referred to OT via direct access for a power w/c eval. He wa s seen in the clinic for this initial assessment on 08/31/22. PMHx: Active problems - Computerized Problem List is t he source for the followin. Acute deep venous thrombosis of thigh 2. H/O: pulmonary embolus 3. 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 Unemployment * 5. Morbid obesity 6. Bipolar,Depr,Part Rem 7. Noncompliance with therapeutic regimen 8. Diabetic foot ulcer 9. Sleep apnea (SNOMED CT 44514147) 10. latent TB 11. Lack of Housing 12. 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 Chronic Obstructive Pulmonary Disease 14. Low Back Pain, Lumbago 15. Degeneration of intervertebral disc 16. Other specified drug dependence, in remissio n 17. Personal History of Colonic Polyps 18. Personality Disorder NOS 19. Diabetes mellitus (SNOMED CT 92458075) 20. Hyperlipidemia (SNOMED CT 24810825) 21. Hypertension (SNOMED CT 25462456) Precautions: universal ENVIRONMENT/SOCIAL SUPPORT: Living situation: lives alone in [facility]. Has fully accessible unit. Support/services: has IMMIGRATION CONSULTANT assists with cleaning and errands CLOF: independent with ADL's. Notes he is havin g difficulty with toilet transfers- has an arm bar on the [facility] side. Has walk-in shower with built-in tub bench. ADLs: modified independent, increased time and DME IADLs: requires assist Mobility: Transfers: slide-board transfers Ambulation: pt reports he's going to [facility] and has been walking a few steps but notes he has had BP issues W/c propulsion: independent with power chair *in power chair 5 hours in the morning, 3 hours in the afternoon. In bed the rest of the time. Falls: notes about 6 falls within the last year - requires assist for for fall recovery- notes fall from shower bench , out of bed a couple times. Had a fall last week- bent down to pick something up and leaned forward. No hospitalizations. Adaptive Equipment: Guardian Alert +, walker, manual wc, crutches, cane, had commode but got rid of it WHEELCHAIR HISTORY: [ ] Manual [x] electric Model: [id number] with Sedeo Serial #: [id number] Period of use: Seat: Width: 20 Depth: 22 Cushion: Jacob Basic Issues: worn out (tires, joystick), had (2) amp utations since initial issuance of chair and seating/pos itioning needs have changed, notes chair tipped over com ing off the curb (hit a patch of ice). TRANSPORTATION: has w/v van transportation avail able through insurance or though [employer] VOCATION: active within the [employer] HAND DOMINANCE: left PAIN: R shoulder, lower back, R knee d/t the fal l last week- note pain @ this time is tolerable O/ Pt arriving to clinic in Q700M . OT EVAL (LOW COMPLEXITY): 25 minutes Sensation: [x]intact []impaired []not tested thi s date Current Skin Integrity: intact per pt. Cognitive/Visual Status: Memory skills: [x]intact []impaired Problem Solving: [x]intact []impaired Judgement: [x]intact []impaired Attention: [x]intact []impaired Vision: []intact [x]impaired-glasses Hearing: []intact [x]impaired Functional Mobility: Sit<->stand: n/a Bed<->w/c: slideboard transfers mod I Gait: n/a Stairs: does not perform Postural Findings/Mat Evaluation: Head and Neck: forward head, rounded shoulders Upper Extremities: grossly WFL Pelvis: sacral sitting Lower Extremities: R BKA Aug 2020, L BKA October 2020 Tone: none Pt's measurements: Weight: 250 # Height: 72 Hip Width: 20 Seat Depth (hip to knee): 22 Knee to foot (with shoes on): 20 - wears b/l pr osthesis Top of Shoulders: 26 Top of head: 37 Manual W/C Propulsion/Mobility: independent with power w/c Power mobility: Method: L joystick Ability to access on/off: yes, joystick Access of seat functions: n/a WHEELCHAIR MANAGEMENT TRAINING (15'): [x] reviewed current w/c- would need: ne w head rest, replacement arm rests for current chair [x] had discussion about current seating/positio elena needs. Since initial eval and issuance of power w/c, pt has had R and L AKA, spending more time in chair and also currently a slideboard transfer. [x] discussed recommendations of new w/c with ve chey will order 20 x 22 recommend seat elevate and power tilt for seati ng/positioning needs and transfers Jacob Wills Pt trialed this date: - Trialed in: 's own Q700M: able to drive in a straight line, make turns, drove at higher speeds, through narrow spaces on uneven terrain General Safety Concerns: Instances of failures: [x]Pt. had no instance of failure [] Pt. had <3 instances [] Pt. had > 3 instances SELF-CARE MANAGEMENT TRAINING (13') [x] pt cites issues within apartment as tub vaughn sfers and toilet transfers. Further discussed today. Pt has a built-in tub bench that folds down and he slid off of it multiple times. Made recommen dation for heavy duty tub transfer bench. Edu provided and showed vet velma bench today with recommendation to slideboard on/off. Veter an in agreement with this recommendation. [x] discussed toilet transfers. Notes he has one rail but it's on the wrong side. Discussed drop-arm commode to increase ea se with transfers. Edu on safe and intended use with good understa nding. A/ Pt is a 62 year old male referred to wheelchair clinic with above pmhx and dx. Pt presents to wheelchair c linic with referral for power mobility due to difficulty with current w/c and a change in seating/positioning needs (had a R BKA and L BKA in 2020). Pt. continues t o demonstrate safe driving. Additionally, discussed home set-up and noted is sues with tub transfers and toilet transfers. Discussed DME to increase ease and safety with good understanding. RECOMMEND: Q700M Sedeo PRO with tilt and seat el evate drop-arm commode tub transfer bench Justification of Recommendations: [x] pt requires tilt function in order t o complete pressure relief in order to maintain skin integrity; pt is unable to comple te pressure relief by other means [] pt requires tilt and recline function in order to complete pressure relief, manage positioning needs, assist with bowel/brittney dder needs, maintain comfort, and/or assist with ADL needs [] pt requires elevating leg rests in order to assist with LE edema management, maintain comfort, and/or positioning needs [] pt requires specific electronics requested du e to progressive nature of patient's diagnosis [] pt requires specific backrest requested due t o postural limitations [x] pt requires elevating seat height in order t o access his/her environment and/or to assist with transfers [] other: Patient/Family/Caregiver Education: [x]educated on w/c recommendations to meet medic al needs [x]educated on recommended pressure relief techn iques [x]educated on w/c safety, including the fact that pt will need to demonstrate safety when w/c is issued, in order to take w/c home [x]Pt/Family demonstrated good understanding of this education []Pt/family will require additional education, i n order to have good Understanding P/ Plan to order Q700M 20 x 22 with tilt and rec line as above. Will f/u with once chair arrives to clinic. Additionally will order tub transfer bench and drop-arm commode for delivery to 's home. LT. Pt will demonstrate ability to independently manage power mobility within the home and community in order to incre ase independence, effectively participate in ADL's and iADL's 2. Pt will be independent with power functions i n order to decrease risk of skin breakdown and manage more effectively with ADLs ST. Assess for most appropriate mobility device 2. will demonstrate good safety with pow er chair Patient Education Education provided on the following topi cs: recommendations for power seating, DME Education provided to: P Response to Education: KARIE RILEY Amado Patient P Family F Significant Other SO Verbalizes Understanding VU Returns Demonstration RD Performs Independently PI Lacks Comprehension LC Refused Education RE Not Applicable NA The practitioner's co-signature on this note sig nifies agreement with the plan of care and clinical diagnosis code. /tan/ VINEET NORTH/Barry OCCUPATIONAL THERAPIST Signed: 09/03/2022 09:20
--- OUTSIDE RECORDS SUMMARY | 2022-09-09 17:46 | XMS_ITS | Encounter Summary ---
:1960 Author Organization Department [facility] rs Address [address] [place] [address] Support Name Relationship Address Phone MR MRS NERI KENNEDY Unavailable [address] [place] [address] MR MRS NERI KENNEDY Unavailable [address] [place] [address] Insurance Providers: All historical and current Section [...] Number Crowell [employer] MEDICARE MCR Oct 21, [id number] TREVOR LEMUS PATIENT CARE ADVANTAGE (WNR) 2018 [id number] [facility] (WNR) MEDICAID MEDICAID [facility] Aug 23, [facility] [id number] [phone] [facility] D [id number] FFREY [facility] MED[facility] PART Nov 21, PART A [id number] [phone] TREVOR KENNEDY PATIENT (WNR) (M) A 2002A 00 FFREY MEDICARE MEDICARE PART Nov 21, PART B [id number] [phone] TREVOR KENNEDY PATIENT (WNR) (M) B 2002A FFREY MEDICARE MEDICARE PART Nov 21, PART A [id number] [id number] TREVOR KENNEDY PATIENT (WNR) (M) A 2002A FFREY MEDICARE MEDICARE PART Nov 21, PART B [id number] [id number] TREVOR KENNEDY PATIENT (WNR) (M) B 2002 27A 4 FFREY Selected Encounter This section includes the information on record at [place] for the Encounter. Date/Time Encounter Type Encounter Description Reason Provider Source Aug 18, 2022 12:00 Outpatient Encounter [facility] CONSULT IHE Encounter Template Text not used by [place] Plan of Treatment: Future Appointments (+ 6 months) and Future Tests (+/- 45 days) The Plan of Treatment section includes future care activities for the patient from all [place] treatmentfacilities. This section includes future appointments and future orders which are active, pending orscheduled.Future Appointments This section includes appointments that were scheduled to occur 6 months from the date of the Encounter, up to a maximum of 20 appointments. The data comes from all [facility]. Appointment Date/Time Appointment Type Appointment Facili ty Name Aug 31, 2022 10:00 AM AMBULATORY - [facility]IC[facility] Sep 18, 2022 10:00 [facility] Feb 16, 2023 09:30 AM [facility] Active, Pending, and Scheduled Orders This section includes a listing of several types of active, pending, and scheduled orders, including clinic medications orders, diagnostic test orders, procedure orders and consult orders; where the start date of the order is 45 days before the date of the Encounter or 45 days after the date of the Encounter. The data comes from all [facility]. Test Date/Time Test Type Test Details Facility Name Sep 03, 2022 10:05 AM Consult [facility] Intern's Choice [facility] Sep 03, 2022 12:29 PM Consult Order PROSTHETICS REQUEST Cons V A [facility] Geotechnical Intern's Choice [facility] Social History: Smoking Status (Most current) [...] AM VA-TOBACCO FORMER USER [facility]L WSTRN [facility] Tobacco Use History This section includes a history of the smoking, or tobacco- related health factors, that were collected on or before the date of the Encounter. The data comes from the [place] facility where the Encounter took place. Date/Time Smoking Status/Tobacco Comment Facility Use Feb 16, 2022 10:00 VA-TOBACCO QUIT 15 YRS VA CNT RL WSTRN AM OR MORE [place] [facility] Feb 04, 2021 11:00 VA-TOBACCO NEVER USED VA CNTR L WSTRN AM [place] [facility] Feb 04, 2021 11:00 VA-TOBACCO USE DECLINED VA CN TRL WSTRN AM TO ANSWER [place] [facility] May 08, 2019 11:06 VA-TOBACCO FORMER USER VA CNT RL WSTRN AM [place] [facility] May 08, 2019 11:06 VA-TOBACCO QUIT 15 YRS VA CNT RL WSTRN AM OR [place] [facility] Oct 26, 2018 11:33 VA-TOBACCO NEVER USED VA CNTR L WSTRN AM [place] [facility] Oct 21, 2017 09:29 QUIT TOBACCO USE > 7 VA CNTRL 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, cigarettes [facility] Dec 06, 2015 09:59 QUIT TOBACCO USE IN PAST VA C NTRL WSTRN AM [facility]AR [facility] Dec 05, 2014 02:31 TOBACCO INPATIENT NO USE VA C NTRL WSTRN PM [address] [place] [facility] Dec 05, 2014 01:37 LIFETIME NON-TOBACCO VA CN[facility] WSTRN PM [facility] Nov 03, 2014 01:14 TOBACCO INPATIENT NO USE VA C NTRL WSTRN PM [address] [place] [facility] Nov 02, 2014 10:36 TOBACCO INPATIENT NO USE VA C NTRL WSTRN AM [address] [place] [facility] Oct 06, 2003 03:47 QUIT TOBACCO USE > 7 VA CNTRL WSTRN AM YEARS AGO [facility] Advance Directives: All historical and current [...] DIRECTIVE ROBERTO FONTENOT [place] CNTRL WSTR N [place] [facility] Encounter Notes: All associated encounter notes This section contains the clinical notes associated to the Encounter. Date/Time Encounter Note(s) Provider Source Aug 18, 2022 12:00 AM NONVA CONSULT: PR CNTRL W STRN LOCAL TITLE: COMMUNITY CARE-CONSULT RESULT NOTE [facility] STAND[facility] TITLE: NONVA CONSULT DATE OF NOTE: AUG 18, 2022 ENTRY DATE: SEP 01 023@11:43:32 AUTHOR: CHRISSY VELASQUEZ EXP COSIGNER: URGENCY: STATUS: COMPLETED VistA Imaging - Scanned Document SCANNED DOCUMENT SIGNATURE NOT REQUIRED Electronically Filed: 09/01/2022 by: CHRISSY VELASQUEZ INNERSOLE MAKER
--- OUTSIDE RECORDS SUMMARY | 2022-09-09 17:47 | XMS_ITS ---
:1960 Author Organization Department [facility] rs Address [address] [place] [id number] Support Name Relationship Address Phone MR MRS NERI KENNEDY Unavailable [address] [place] [address] MR MRS NERI KENNEDY Unavailable [address] [place] [address] Insurance Providers: All historical and current Section [...] Number [employer]IC[employer] MCR Oct 21, [id number] [phone] RONNY TREVOR HERNANDEZ PATIENT CARE ADVANTAGE (WNR) [phone] [facility] (WNR) MEDICAID MEDICAID [facility] Aug 23, [facility] [id number] [phone] TREVOR TRINH [facility]IENT [facility] D [id number] [facility] MEDICARE PART Nov 21, PART B [id number] [phone] TREVOR KENNEDY PATIENT (WNR) (M) B [id number] 00 [facility] MEDICARE MEDICARE PART Nov 21, PART A [id number] [phone] TREVOR KENNEDY PATIENT (WNR) (M) [facility] Nov 21, PART A [id number] [phone] TREVOR KENNEDY PATIENT (WNR) (M) A 2002A [facility] MEDICARE MEDICARE PART Nov 21, PART B [id number] [phone] TREVOR KENNEDY PATIENT (WNR) (M) B [id number] FFREY Selected Encounter This section includes the information on record at [place] for the Encounter. Date/Time Encounter Type Encounter Description Reason Provider Source Sep 03, 2022 08:23 Outpatient Encounter PRIMARY CARE/MEDICINE AM [facility] Encounter Template Text not used by [place] Plan of Treatment: Future Appointments (+ 6 months) and Future Tests (+/- 45 days) The Plan of Treatment section includes future care activities for the patient [facility] [place] [facility] This section includes future appointments and future orders which are active, pending orscheduled.Future Appointments This section includes appointments that were scheduled to occur 6 months from the date of the Encounter, up to a maximum of 20 appointments. The data comes from all [place] treatment facilities. Appointment Date/Time Appointment Type Appointment Facili ty Name Sep 18, 2022 10:00 AM AMBULATORY - REHAB MEDICINE [facility] Feb 16, 2023 09:30 AM AMBULATORY - MEDICINE [facility] Active, Pending, and Scheduled Orders This section includes a listing of several types of active, pending, and scheduled orders, including clinic medications orders, diagnostic test orders, procedure orders and consult orders; where the start date of the order is 45 days before the date of the Encounter or 45 days after the date of the Encounter. The data comes from all [facility] facilities. Test Date/Time Test Type Test Details Facility Name Sep 03, 2022 10:05 AM Consult Order PROSTHETICS REQUEST Cons V A [facility] Pattern Assembler[facility] Choice [facility] Sep 03, 2022 12:29 PM Consult Order [facility] Choice [facility] Social History: Smoking Status (Most current) [...] Comment Facility Feb 16, 2022 10:00 AM [place]-TOBACCO QUIT 15 YRS OR [facility] Tobacco Use History This section includes a history of the smoking, or tobacco- related health factors, that were collected on or before the date of the Encounter. The data comes from the [place] facility where the Encounter took place. Date/Time Smoking Status/Tobacco Comment Facility Use Feb 16, 2022 10:00 VA-TOBACCO QUIT 15 YRS [facility] OR MORE [place] [facility] Feb 04, 2021 11:00 VA-TOBACCO NEVER USED [facility] [place] [facility] Feb 04, 2021 11:00 VA-TOBACCO USE DECLINED [facility] AM TO ANSWER [place] [facility] May 08, 2019 11:06 VA-TOBACCO FORMER USER [facility] [place] [facility] May 08, 2019 11:06 VA-TOBACCO QUIT 15 YRS [facility] OR MORE [place] [facility] Oct 26, 2018 11:33 VA-TOBACCO NEVER USED [facility] [place] [facility] Oct 21, 2017 09:29 QUIT TOBACCO USE > 7 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, [facility] Dec 06, 2015 09:59 QUIT TOBACCO USE IN PAST [place] C NTRL [facility] AM YEAR [place] [facility] Dec 05, 2014 02:31 TOBACCO INPATIENT NO USE [facility] PM 30 DAYS [place] [facility] Dec 05, 2014 01:37 LIFETIME NON-TOBACCO [facility] Nov 03, 2014 01:14 TOBACCO INPATIENT NO USE [facility] C [facility] PM 30 DAYS [place] [facility] Nov 02, 2014 10:36 TOBACCO INPATIENT NO USE [facility] C [facility] AM 30 DAYS [place] [facility] Oct 06, 2003 03:47 QUIT TOBACCO USE > 7 VA CN[facility] AM YEARS AGO [facility] Advance Directives: All historical and current Section Date Range: From patient's date of to the date document was created. This section includes ALL of a patient's completed or amended [place] Advance and Rescinded Directives. The entries below indicate that a directive exists for the patient, but an actual copy is not included with this document. The data comes from all [place] facilities. Date Advance Directives Provider Source Sep 06, 2007 ADVANCE DIRECTIVE ROBERTO FONTENOT [facility] Encounter Notes: All associated encounter notes This section contains the clinical notes associated to the Encounter. Date/Time Encounter Note(s) Provider Source Sep 03, 2022 08:23 AM PRIMARY CARE TELEPHONE ENCOUNTER NOTE: AMAURY NORRIS [facility] LOCAL TITLE: TELEPHONE [facility] STAND[facility] TITLE: PRIMARY CARE TELEPHONE ENCOUNTER NOTE DATE OF NOTE: SEP 03, 2022@08:23 ENTRY DATE: SEP 03, 2022@08:23:45 AUTHOR: AMAURY FALLON EXP COSIGNER: URGENCY: STATUS: COMPLETED Call Placed to for colonoscopy gap remin goran. Left message on self identified voice mail /es/ AMAURY FALLON LPN Signed: 09/03/2022 08:24
--- NOTE | 2022-09-09 18:24 | PC.NURSE ---
[place], juice, and coffee provided for pt. Tylenol given for shoulder discomfort.
[2022-09-09] MEDS: Acetaminophen 325 MG TABLET 650 MG PO (18:28)
[2022-09-09] MEDS: ondansetron HCL 4 MG/2 ML VIAL IVPUSH (18:31)
[2022-09-09 21:31] LABS: Glucose, Whole Blood 304 mg/dL (60-115)
[2022-09-09] MEDS: Gabapentin 600 MG TABLET 1200 MG PO (22:19)
[2022-09-09] MEDS: Atorvastatin Calcium 40 MG TABLET PO (22:19)
[2022-09-09] MEDS: Amitriptyline HCl 10 MG TABLET PO (22:19)
[2022-09-09] MEDS: Insulin Lispro 100 UNIT/ML 3 ML VIAL SUBCUT (22:20)
[2022-09-09] MEDS: Insulin Glargine,Hum.rec.anlog 100 UNIT/ML 10 ML VIAL 28 UNIT SUBCUT (22:20)
[2022-09-10] MEDS: 0.9 % Sodium Chloride Flush 3 ML SYRINGE IVFLUSH ×2 (03:20→08:04)
[2022-09-10 03:31] VITALS: BP 124/75; PULSE 88; RESP 15; TEMP 36.1; O2SAT 99
[2022-09-10 07:30] VITALS: BP 133/71; PULSE 84; RESP 20; TEMP 36.3; O2SAT 97
[2022-09-10 07:40] LABS: Glucose, Whole Blood 250 mg/dL (60-115)
[2022-09-10] MEDS: Insulin Glargine,Hum.rec.anlog 100 UNIT/ML 10 ML VIAL 28 UNIT SUBCUT (08:03)
[2022-09-10] MEDS: polyethylene glycoL 3350 17 GM POWD.PACK PO (08:03)
[2022-09-10] MEDS: Multivitamin TABLET 1 TAB PO (08:04)
[2022-09-10] MEDS: Insulin Lispro 100 UNIT/ML 3 ML VIAL SUBCUT ×3 (08:04→17:04)
[2022-09-10] MEDS: Cholecalciferol (Vitamin D3) 25 MCG TABLET PO (08:04)
[2022-09-10] MEDS: Gabapentin 600 MG TABLET 1200 MG PO (08:04)
[2022-09-10] MEDS: Aspirin Enteric Coated 81 MG TABLET.DR PO (08:04)
[2022-09-10] MEDS: Magnesium Oxide 400 MG TABLET PO (08:05)
[2022-09-10] MEDS: metFORMIN HCl 1,000 MG TABLET 1000 MG PO (08:05)
[2022-09-10] MEDS: lisinopriL 10 MG TABLET PO (08:05)
[2022-09-10 08:50] LABS: Hematocrit 38.2 % (42.0-52.0); Hemoglobin 13.6 g/dl (14.0-18.0); Mean Corpuscular HGB Conc 35.6 g/dl (31.0-36.0); Mean Corpuscular Hemoglobin 33.1 pg (27.0-33.0); Mean Corpuscular Volume 92.9 fL (80.0-98.0); Mean Platelet Volume 10.9 fL (9.4-12.4); Platelet Count 149 X10*3/uL (160-400); Red Blood Count 4.11 X10*6/uL (4.60-5.80); Red Cell Distribution Width 12.5 % (11.0-16.0); White Blood Count 7.2 X10*3/uL (4.8-10.8)
[2022-09-10 09:07] LABS: Anion Gap 14 (12-20); Blood Urea Nitrogen 18 mg/dL (9-16); Calcium 8.7 mg/dL (8.4-10.2); Carbon Dioxide 22 mmol/L (22-29); Chloride 102 mmol/L (96-108); Cholesterol 102 mg/dL; Estimated Glomerular Filt Rate > 60; Glucose Random 334 mg/dL (60-115); HDL Cholesterol 29 mg/dL; LDL Cholesterol Calculated 50 mg/dl; Potassium 4.3 mmol/L (3.3-5.1); Sodium 134 mmol/L (135-145); Triglycerides 118 mg/dL
[2022-09-10 10:57] LABS: Glucose, Whole Blood 325 mg/dL (60-115)
[2022-09-10 11:17] VITALS: BP 135/62; PULSE 87; RESP 20; TEMP 36.7; O2SAT 95
--- NOTE | 2022-09-10 11:39 | MHC.CM.PN ---
CM met with Patient at bedside and addressed IMM with him (original was given to him and a copy has been placed on the chart). OT is recommending STR and Patient is agreeable to a broad SNF search. CM has initiated and will follow for dc planning. Patient lives alone in an apartment and uses a w/c to assist with mobility. Patient is covid vax'd x4 and his PCP is Dr. Walsh.
--- NOTE | 2022-09-10 14:49 | P.CNNE_ITS ---
History of Present Illness Data of Consult Service Date: 09/10/22 Primary Care Provider: Joel Walsh MD [facility] Reason for consult: Cord compression 62-year-old gentleman with past medical history of type 2 diabetes mellitus on insulin, peripheral vascular disease status post bilateral BKA, peripheral neuropathy, MGUS, morbid obesity, history of obstructive sleep apnea, mood disorder, hypertension, history of pulmonary embolism finish anticoagulation 3 days ago, lives alone his wheelchair bound since BKA feels it is difficult for him to be by himself without help, presented to [facility] Due to right arm weakness, as per patient he has bilateral shoulder pain of 1 week duration. In last 1-3 days he has been complaining of severe right shoulder area pain and bilateral arm weakness and hand numbness stating that he was losing strength in his arms. Review of Systems Review of Systems: Right shoulder neck pain PMFSH Past Medical History Medical History Abscess CIRILO (acute kidney injury) Amputated great toe of right foot Anxiety and depression Back pain Cellulitis COPD (chronic obstructive pulmonary disease) Diabetes Diabetic foot infection Drug-induced thrombocytopenia Hx MRSA infection Hyperlipidemia Hypertension Hyponatremia IDDM (insulin dependent diabetes mellitus) MGUS (monoclonal gammopathy of unknown significance) Neck pain Non-healing amputation site Obesity Peripheral neuropathy Psychiatric diagnosis Pulmonary embolism PVD (peripheral vascular disease) Sleep apnea Family History Family History Other No history of heart disease Surgical History Surgical History H/O abdominoplasty H/O colonoscopy Hx of angioplasty Hx of appendectomy Hx of foot surgery Hx of tonsillectomy Hx of umbilical hernia repair S/P anal fissurectomy S/P BKA (below knee amputation) bilateral Status post below-knee amputation Social History Social History Household Members: None Housing: House Do you presently have visiting nurse or other home services: Yes ([facility]) Alcohol intake: former Patient Tobacco Use Status: Former Tobacco user Quit Date: 30 YEARS AGO Tobacco use type: Cigarette e-Cigarette/Vaping Use: Former Use Second Hand Smoke Exposure: No Use of substances other than those prescribed or required for medical reasons: No Currently Displaying Signs/Symptoms of Drug Intoxication Withdrawal: No Have you been hit, kicked, punched, or otherwise hurt by someone within the past year? If so, by whom?: No Do you feel safe in your current relationship?: No Current Relationship Is there a partner from a previous relationship who is making you feel unsafe now?: No Are you made to feel afraid or neglected: No Advance Directives: Yes Advance Directives on File: Yes Advance Directives Date on File: 09/27/20 Do you have thoughts of harming others: None Do you have a plan to hurt others: No Plan Recently lost weight without trying: Unsure Nutrition Risks: No Nutritional Risk service: Yes Current occupational status: disabled Meds Allergies Allergy/AdvReac Type Severity Reaction Status Date / Time vancomycin AdvReac Severe thrombocyto Verified 04/21/22 11:11 penia Active Medications: Current Medications Acetaminophen (Acetaminophen 325 Mg Tablet) 650 mg PO Q6H PRN PRN Reason: Pain, Mild (Pain Scale 1-3) Last Admin: 09/09/22 18:28 Dose: 650 mg Albuterol Sulfate (Albuterol Sulfate 90 Mcg 8 Gm Inhaler) 2 puff INHALE Q4H PRN PRN Reason: Shortness Of Breath Amitriptyline HCl (Amitriptyline Hcl 10 Mg Tablet) 10 mg PO BEDTIME [facility] Last Admin: 09/09/22 22:19 Dose: 10 mg Aspirin (Aspirin Enteric Coated 81 Mg Tablet.) 81 mg PO DAILY [facility] Last Admin: 09/10/22 08:04 Dose: 81 mg Atorvastatin Calcium (Atorvastatin Calcium 40 Mg Tablet) 40 mg PO BEDTIME [facility] Last Admin: 09/09/22 22:19 Dose: 40 mg Benzonatate (Benzonatate 100 Mg Capsule) 100 mg PO TID PRN PRN Reason: Cough Dextrose (Dextrose 50 % 25 Gm/50 Ml Syringe) 25 gm IVPUSH Q15M PRN; Protocol PRN Reason: per Hypoglycemia Standing Ord. Gabapentin (Gabapentin 600 Mg Tablet) 1,200 mg PO BID [facility] Last Admin: 09/10/22 08:04 Dose: 1,200 mg Glucose (Glucose Gel 15 Gm Gel..Gram.) 15 gm PO Q15M PRN; Protocol PRN Reason: per Hypoglycemia Standing Ord. Hydroxyzine HCl (Hydroxyzine Hcl 10 Mg Tablet) 10 mg PO BID PRN PRN Reason: Anxiety Ceftriaxone Sodium 1 gm/ (Sodium Chloride) 50 mls @ 100 mls/hr IV Q24H [facility] Methylprednisolone Sodium Succinate 500 mg/ Sodium Chloride 50 mls @ 56.89 mls/hr IV ONCE ONE Stop: 09/10/22 15:22 Insulin Glargine (Insulin Glargine,Hum.Rec.Anlog 100 Unit/Ml 10 Ml Vial) 28 unit SUBCUT BID [facility] Last Admin: 09/10/22 08:03 Dose: 28 unit Insulin Human Lispro (Insulin Lispro 100 Unit/Ml 3 Ml Vial) 0 unit SUBCUT QIDACHS [facility]; Protocol Last Admin: 09/10/22 13:16 Dose: 8 unit Lisinopril (Lisinopril 10 Mg Tablet) 10 mg PO DAILY [facility]; Protocol Last Admin: 09/10/22 08:05 Dose: 10 mg Magnesium Oxide (Magnesium Oxide 400 Mg Tablet) 400 mg PO DAILY [facility] Last Admin: 09/10/22 08:05 Dose: 400 mg Melatonin (Melatonin 3 Mg Tablet) 3 mg PO BEDTIME PRN PRN Reason: Insomnia Metformin HCl (Metformin Hcl 1,000 Mg Tablet) 1,000 mg PO BID [facility] Last Admin: 09/10/22 08:05 Dose: 1,000 mg Multivitamins/Vitamin C (Multivitamin Tablet) 1 tab PO DAILY [facility] Last Admin: 09/10/22 08:04 Dose: 1 tab Ondansetron HCl (Ondansetron Hcl 4 Mg/2 Ml Vial) 4 mg IVPUSH Q8H PRN PRN Reason: Nausea and Vomiting Last Admin: 09/09/22 18:31 Dose: 4 mg Oxycodone HCl (Oxycodone Hcl Immed Release 5 Mg Tablet) 5 mg PO Q6H PRN PRN Reason: Pain, Moderate (Pain Scale 4-6 Pharmacy Consult (Consult Rx Perform Med Rec) 1 each MISCELLANE ONCE PRN PRN Reason: Consult order Polyethylene Glycol (Polyethylene Glycol 3350 17 Gm Powd.Pack) 17 gm PO DAILY PRN PRN Reason: Constipation Last Admin: 09/10/22 08:03 Dose: 17 gm Sodium Chloride (0.9 % Sodium Chloride Flush 3 Ml Syringe) [facility] Last Admin: 09/10/22 08:04 Dose: 3 ml Vitamin D (Cholecalciferol (Vitamin D3) 25 Mcg Tablet) 25 mcg PO DAILY TJ Last Admin: 09/10/22 08:04 Dose: 25 mcg Home Medications Medication Instructions Recorded Confirmed Last Taken Type aspirin 81 mg tablet,delayed 81 mg PO DAILY 07/17/20 09/09/22 05/24/22 History release gabapentin 600 mg tablet 1,200 mg PO BID 07/17/20 09/09/22 05/24/22 History liraglutide 0.6 mg/0.1 mL (18 mg/3 1.8 mg subcut DAILY 07/17/20 09/09/22 History mL) subcutaneous pen injector (Victoza 3-Chet) metformin 1,000 mg tablet 1,000 mg PO BID 07/17/20 09/09/22 05/24/22 History cholecalciferol (vitamin D3) 25 25 mcg PO DAILY 09/04/20 09/09/22 05/24/22 History mcg (1,000 unit) tablet atorvastatin 40 mg tablet 40 mg PO BEDTIME 10/09/20 09/09/22 05/24/22 History insulin degludec 100 unit/mL (3 40 unit subcut BID 12/23/20 09/09/22 05/24/22 History mL) subcutaneous pen (Tresiba FlexTouch U-100 insulin) lancets 28 gauge (FreeStyle #100 ea 03/20/21 05/24/22 History Lancets) albuterol sulfate 90 mcg/actuation 2 puff inhalation Q4-6H PRN 04/10/21 09/09/22 05/24/22 History aerosol inhaler Shortness Of Breath polyethylene glycol 3350 17 gram 17 g PO DAILY PRN Constipation 12/13/2105/24/22 History oral powder packet flash glucose sensor (FreeStyle #1 ea 01/01/22 05/24/22 History Pablo 2 Sensor kit) pen needle, diabetic 31 gauge x #1,200 ea 01/01/22 05/24/22 History 5/16 (BD Ultra-Fine Short Pen Needle) hydroxyzine HCl 10 mg tablet 10 mg PO BID PRN Anxiety 01/30/22 09/09/22 05/24/22 History flash glucose scanning reader #1 ea 02/03/22 05/24/22 History (FreeStyle Pablo 2 [place]) blood sugar diagnostic (FreeStyle #10 ea 04/21/22 05/24/22 History Lite Strips) insulin aspart U-100 100 unit/mL 5 - 15 unit subcut TIDAC 04/21/22 09/09/22 05/24/22 History (3 mL) subcutaneous pen (Novolog FlexPen U-100 Insulin aspart) lisinopril 10 mg tablet 10 mg PO DAILY 04/21/22 09/09/22 05/24/22 History magnesium oxide 400 mg (241.3 mg 400 mg PO DAILY 04/21/22 09/09/22 05/24/22 History magnesium) tablet amitriptyline 10 mg tablet 1 tab PO BEDTIME 09/09/22 09/09/22 Unknown History vitamin B complex (Vitamins B 1 cap PO DAILY 09/09/22 09/09/22 Unknown History Complex capsule) Physical Exam Vital Signs: Vital Signs: Last Vital Signs Temp 98.1 F 09/10/22 11:17 Pulse 87 09/10/22 11:17 Resp 20 09/10/22 11:17 BP 135/62 09/10/22 11:17 Pulse Ox 95 09/10/22 11:17 O2 Del Method 09/10/22 11:17 BMI result Body Mass Index 55.2 Neuro: Other: Alert and awake with normal spontaneity of speech fluency comprehension and depressed affect. He was not moving his right shoulder stating that it was painful. He was able to move his left arm and that had mild diffuse weakness. Results Labs 09/10/22 08:37 09/10/22 08:37 Labs: Short CBC 09/10/22 Range/Units 08:37 WBC 7.2 (4.8-10.8) X10*3/uL Hgb 13.6 L (14.0-18.0) g/dl Hct 38.2 L (42.0-52.0) % Plt Count 149 L (160-400) X10*3/uL BMP 09/10/22 08:37 Sodium 134 L Potassium 4.3 Chloride 102 Carbon Dioxide 22 BUN 18 H Creatinine 1.[address] scan and MRI of brain did not reveal any significant abnormality. MRI of cervical spine reveals severe spondylitic disease with cord compression and abnormal signal in the cord. Microbiology Microbiology Results: Microbiology 09/09/22 00:00 Urine clean catch - Urine montes top Urine Culture - Preliminary Gram negative ramu Assessment and Plan (1) Cervical spondylitic cord compression: Status: Acute 62 years old man with bilateral knee level amputation due to probably peripheral vascular disease related complications came to hospital with new onset of bilateral hand and arm weakness and pain in his neck and shoulder area. His cervical spine MRI revealed severe spondylitic stenosis with cord compression. This is a neuro surgical emergency and he should have decompressive surgery as soon as possible. My recommendation is to transfer him to a place where neuro surgical consultation and expertise is available. In the meantime Solu-Medrol 500 mg is recommended but even that is a difficult treatment because of significant hyperglycemia. He would require close observation and monitoring of blood sugar and appropriate management. This type of pathology can be taken care of as an outpatient but his case is different. First he had already has bilateral lower extremity amputation and secondly he has been getting worse during last few days. Every of effort should be made to protect his extremity function. Time Spent With Patient Time: Total time managing care of this patient today ____ minutes. Procedures Date of Service Date of Service: 09/10/22
[2022-09-10] MEDS: methylPREDNISolone Sod Succ 500 MG in 0.9 % Sodium Chloride 50 ML 56.89 MG IV (15:41)
--- NOTE | 2022-09-10 15:44 | PM.DS ---
DS: Providers Provider Date of Service: 09/10/22 Date of admission: 09/09/22 17:05 Primary care physician: Joel Walsh MD Consults: 09/09/22 17:08 Consult to Neurology Routine Consulting Provider: [facility] Reason for consultation: Right arm weakness Has provider been notified: No 09/10/22 12:53 Consult to Neurology Routine Consulting Provider: [facility] Reason for consultation: rt arm weakness Has provider been notified: No DS: Diagnosis Discharge Diagnosis (1) Cervical spondylitic cord compression: Status: Acute DS: Summary Hospital Course Hospital Course: Date of Service: 09/09/22 Attending physician on admission: Jose Alejandro Oropeza Chief Complaint: Right arm weakness 62-year-old gentleman with past medical history of type 2 diabetes mellitus on insulin, peripheral vascular disease status post bilateral BKA, peripheral neuropathy, MGUS, morbid obesity, history of obstructive sleep apnea, mood disorder, hypertension, history of pulmonary embolism finish anticoagulation 3 days ago, lives alone his wheelchair bound since BKA feels it is difficult for him to be by himself without help, presented to [facility] Due to right arm weakness, as per patient he has bilateral shoulder pain of 1 week duration, in last 2-3 days he noticed that he has been leaning more to the right side, with right arm pain and weakness, today he was trying to transfer from wheelchair to bed but was unable to do so therefore managers from his building assisted him to be back to bed he denies associated lightheadedness dizziness, no headache, no visual symptoms, few hours later while in bed he called the ambulance since he felt electric shocks in right arm as well as at abdomen that happened a few times he also felt that the right arm is weak, with decreased hand sales marketing coordinator, in the emergency room patient noted to have symmetrical face, speech was intact, there was no right-sided pronator drift, but had decreased right hand sales marketing coordinator, his labs showed slightly elevated WBC of 11.2 urinalysis significantly positive with 4+ bacteria he does complain of urinary frequency, CTA head and neck showed no carotid artery narrowing or stenosis, but showed rt. vertebral artery stenosis, it showed cervical spondylosis with multilevel foraminal encroachment, moderate to severe central canal stenosis at C3-C4 level patient received 1 dose of IV ceftriaxone in the emergency room as well as aspirin and hydromorphone for pain and now being admitted to [facility] for continued monitoring and treatment for right upper extremity weakness. Hospital course 62-year-old with past medical history of peripheral vascular disease status post bilateral BKA, peripheral neuropathy, type 2 diabetes mellitus, morbid obesity, mood disorder, hypertension, pulmonary embolism finished course of Eliquis 3 days ago presented to [facility] with bilateral shoulder pain of 1 week duration and 2-3 days of leaning towards the right side and this morning developed electrical shocks to anterior abdomen as well as right upper extremity and right arm weakness, associated with numbness and tingling was unable to transfer from wheelchair to bed required help with no fall to the ground no lightheadedness dizziness or syncope. Right upper extremity weakness pain and leaning to right-sided of 2-3 days duration patient admitted to telemetry, MRI brain and C-spine was obtained that showed severe spondylitic stenosis C3-C4 and C4-C5 with cord compression, patient evaluated by Neurology Dr. Villareal he recommended decompressive surgery and transfer to tertiary care center for neuro surgical intervention,, patient was given IV Solu Medrol 500 mg x 1, placed on oxycodone for pain control. Diabetes on on insulin with uncontrolled blood sugars strongly recommend to follow diabetic diet continue Lantus, insulin sliding scale will hold metformin Peripheral vascular disease Continue Aspirin, and statin History of pulmonary embolism Recently finished treatment with Eliquis 3 days ago COPD Stable, continue home inhalers Morbid obesity complicated by obstructive sleep apnea recommended low-calorie diet and weight loss, continue CPAP at night Mood disorder Continue amitriptyline Peripheral neuropathy On Gabapentin Chronic constipation placed on MiraLax and senna at night. With Time Spent with Patient Time attestation: Total time managing care of this patient today ____ minutes. Discharge coordination time: Greater than 30 minutes Quality: Safe Use of Opioids Does Pt have an Active Cancer Diagnosis on the Problem List?: No Quality: Stroke Does the patient have a stroke diagnosis?: No Physical Exam Vital Signs: Vital Signs: Last Vital Signs Temp 98.1 F 09/10/22 11:17 Pulse 87 09/10/22 11:17 Resp 20 09/10/22 11:17 BP 135/62 09/10/22 11:17 Pulse Ox 95 09/10/22 11:17 O2 Del Method 09/10/22 11:17 BMI result Body Mass Index 55.2 Const: Other: General awake alert x3 Neck no JVD. CVS? regular rate rhythm, Respiratory lungs clear to auscultation, no respiratory distress, no wheeze, no rhonchi. Gastrointestinal abdomen soft, obese, nontender, bowel sounds audible, no guarding , no rigidity. Extremities bilateral BKA Right shoulder pain limited range of motion no bruise ,no redness Neuro bilateral upper extremities normal tone, decrease hand sales marketing coordinator right hand ,no pronator drift, face symmetrical, speech clear,tongue midline , cranial nerve 2-12 intact. Skin no rash Psych appropriate affect DS: Data Data Completed and Pending Completed studies during hospitalization [Text1]: Procedures Assistance with Respiratory Ventilation, Less than 24 Consecutive Hours, Continuous Positive Airway Pressure (05/25/22) Detachment at Left 1st Toe, Complete, Open Approach (12/23/20) Detachment at Left Lower Leg, Mid, Open Approach (12/23/20) Detachment at Right 1st Toe, Complete, Open Approach (09/05/20) Detachment at Right 1st Toe, High, Open Approach (09/05/20) Detachment at Right Foot, Partial 1st Ray, Open Approach (10/10/20) Detachment at Right Foot, Partial 2nd Ray, Open Approach (10/10/20) Detachment at Right Foot, Partial 3rd Ray, Open Approach (10/10/20) Detachment at Right Foot, Partial 4th Ray, Open Approach (10/10/20) Detachment at Right Foot, Partial 5th Ray, Open Approach (10/10/20) Detachment at Right Lower Leg, Mid, Open Approach (10/10/20) Dilation of Right Posterior Tibial Artery, Percutaneous Approach (09/05/20) Drainage of Left Lower Leg, Percutaneous Approach (12/13/21) Fluoroscopy of Aorta and Bilateral Lower Extremity Arteries (12/23/20) Insertion of Infusion Device into Superior Vena Cava, Percutaneous Approach (12/13/21) Transfusion of Nonautologous Platelets into Peripheral Vein, Percutaneous Approach (09/05/20) Transfusion of Nonautologous Red Blood Cells into Peripheral Vein, Percutaneous Approach (12/23/20) Ultrasonography of Superior Vena Cava, Guidance (12/13/21) Labs on day of discharge: Laboratory Results - last 24 hr 09/09/22 09/10/22 09/10/22 21:27 07:29 08:37 WBC 7.2 RBC 4.11 L Hgb 13.6 L Hct 38.2 L MCV 92.9 MCH 33.1 H MCHC 35.6 RDW 12.5 Plt Count 149 L MPV 10.9 Absolute Nucleated RBC 0.000 Nucleated RBC % (auto) 0.0 Sodium Potassium Chloride Carbon Dioxide Anion Gap BUN Creatinine Estim Creat Clear Calc Estimated GFR POC Glucose 304 H 250 H Random Glucose Calcium Triglycerides Cholesterol LDL Cholesterol, Calc HDL Cholesterol 09/10/22 09/10/22 08:37 10:53 WBC RBC Hgb Hct MCV MCH MCHC RDW Plt Count MPV Absolute Nucleated RBC Nucleated RBC % (auto) Sodium 134 L Potassium 4.3 Chloride 102 Carbon Dioxide 22 Anion Gap 14 BUN 18 H Creatinine 1.19 Estim Creat Clear Calc 73.0 Estimated GFR > 60 POC Glucose 325 H Random Glucose 334 H Calcium 8.7 Triglycerides 118 Cholesterol 102 LDL Cholesterol, Calc 50 HDL Cholesterol 29 Preliminary micro results at discharge 09/09/22 00:00 Urine Culture - Preliminary Urine clean catch - Urine montes top Gram negative ramu Discharge Plan Discharge Anticipated Discharge Date/Time: 09/10/22 15:36 Patient Disposition: Xfer Acute [facility] Discharge Diagnosis: Cervical cord compression UTI Referrals: Joel Walsh MD [Primary Care Provider] - 1 Week Discharge Medications: New ceftriaxone 1 gram Recon Soln 1 g IV Q24H Qty: 10 0RF oxycodone 5 mg Tablet 5 mg PO Q6H PRN (Reason: Pain, Moderate (Pain Scale 4-6) Qty: 20 0RF Rx Instructions: Partial Fill upon patient request. senna 8.6 mg capsule 8.6 mg PO BEDTIME Qty: 30 0RF Continued atorvastatin 40 mg tablet 40 mg PO BEDTIME Hold Instructions: Resume on 05/24/21. hold while on daptomycin albuterol sulfate 90 mcg/actuation Hfa Aerosol Inhaler 2 puff INHALATION Q4-6H PRN (Reason: Shortness Of Breath) gabapentin 600 mg tablet 1,200 mg PO BID aspirin 81 mg tablet,delayed release (DR/EC) 81 mg PO DAILY Victoza 3-Chet 0.6 mg/0.1 mL (18 mg/3 mL) pen injector 1.8 mg subcut DAILY cholecalciferol (vitamin D3) 25 mcg (1,000 unit) tablet 25 mcg PO DAILY insulin degludec [Tresiba FlexTouch U-100] 100 unit/mL (3 mL) insulin pen 40 unit subcut BID magnesium oxide 400 mg (241.3 mg magnesium) tablet 400 mg PO DAILY insulin aspart U-100 [Novolog FlexPen U-100 Insulin] 100 unit/mL (3 mL) insulin pen 5 - 15 unit subcut TIDAC Rx Instructions: Per sliding scale amitriptyline 10 mg tablet 1 tab PO BEDTIME vitamin B complex [Vitamins B Complex] Capsule 1 cap PO DAILY (DME) lancets [FreeStyle Lancets] 28 gauge misc See Rx Instructions topical QID Qty: 100 Rx Instructions: As directed hydroxyzine HCl 10 mg tablet 10 mg PO BID PRN (Reason: Anxiety) lisinopril 10 mg tablet 10 mg PO DAILY (DME) FreeStyle Lite Strips Strip See Rx Instructions .ROUTE QID Qty: 10 Rx Instructions: As directed (DME) FreeStyle Pablo 2 Sensor Kit See Rx Instructions .ROUTE .MEDSUPPLY Qty: 1 Rx Instructions: As directed (DME) pen needle, diabetic [BD Ultra-Fine Short Pen Needle] 31 gauge x 5/16 needle See Rx Instructions subcut .MEDSUPPLY Qty: 1200 Rx Instructions: As directed (DME) FreeStyle Pablo 2 [place] Misc See Rx Instructions .ROUTE .MEDSUPPLY Qty: 1 Rx Instructions: As directed Changed polyethylene glycol 3350 17 gram powder in packet 17 g PO DAILY Qty: 30 0RF Discontinued metformin 1,000 mg tablet 1,000 mg PO BID Discharge Orders: Discharge Order (Routine); Ordered 09/10/22 Ordered By: Sedrick Bonilla Diet: Diabetic diet Activity on Discharge: Bedrest Stand Alone Forms: Patient Portal Discharge page Care Plan Goals: For UTI continue IV ceftriaxone day 2, preliminary urine culture growing Gram-negative ramu Neuro surgical evaluation for severe spinal canal stenosis at C3 -C4 and C4-C5 with cord compression and cord signal abnormality Health Concerns: Diabetes mellitus continue home medications follow diabetic diet close blood sugar monitoring, continue all home medications as before Plan of Treatment: Transferred to tertiary care unit for neuro surgical intervention Assessment: As above Discharge Date/Time: 09/10/22 19:35
[2022-09-10 15:48] LABS: Glucose, Whole Blood 299 mg/dL (60-115)
[2022-09-10 15:50] VITALS: BP 106/76; PULSE 88; RESP 18; TEMP 36.6; O2SAT 95
--- NOTE | 2022-09-10 16:12 | P.PNIM_ITS ---
Subjective Subjective Date of Service: 09/10/22 Physical Exam Vital Signs: Vital Signs: Last Vital Signs Temp 97.8 F 09/10/22 15:50 Pulse 88 09/10/22 15:50 Resp 18 09/10/22 15:50 BP 106/76 09/10/22 15:50 Pulse Ox 95 09/10/22 15:50 O2 Del Method 09/10/22 15:50 BMI result Body Mass Index 55.2 Objective Data Active Medications Acetaminophen (Acetaminophen 325 Mg Tablet) 650 mg PO Q6H PRN PRN Reason: Pain, Mild (Pain Scale 1-3) Last Admin: 09/09/22 18:28 Dose: 650 mg Documented By: OJI Albuterol Sulfate (Albuterol Sulfate 90 Mcg 8 Gm Inhaler) 2 puff INHALE Q4H PRN PRN Reason: Shortness Of Breath Amitriptyline HCl (Amitriptyline Hcl 10 Mg Tablet) 10 mg PO BEDTIME [facility] Last Admin: 09/09/22 22:19 Dose: 10 mg Documented By: MELISSA Aspirin (Aspirin Enteric Coated 81 Mg Tablet.Dr) 81 mg PO DAILY [facility] Last Admin: 09/10/22 08:04 Dose: 81 mg Documented By: KRISTIN Atorvastatin Calcium (Atorvastatin Calcium 40 Mg Tablet) 40 mg PO BEDTIME [facility] Last Admin: 09/09/22 22:19 Dose: 40 mg Documented By: MELISSA Benzonatate (Benzonatate 100 Mg Capsule) 100 mg PO TID PRN PRN Reason: Cough Dextrose (Dextrose 50 % 25 Gm/50 Ml Syringe) 25 gm IVPUSH Q15M PRN; Protocol PRN Reason: per Hypoglycemia Standing Ord. Gabapentin (Gabapentin 600 Mg Tablet) 1,200 mg PO BID [facility] Last Admin: 09/10/22 08:04 Dose: 1,200 mg Documented By: KRISTIN Glucose (Glucose Gel 15 Gm Gel..Gram.) 15 gm PO Q15M PRN; Protocol PRN Reason: per Hypoglycemia Standing Ord. Hydroxyzine HCl (Hydroxyzine Hcl 10 Mg Tablet) 10 mg PO BID PRN PRN Reason: Anxiety Ceftriaxone Sodium 1 gm/ (Sodium Chloride) 50 mls @ 100 mls/hr IV Q24H [facility] Insulin Glargine (Insulin Glargine,Hum.Rec.Anlog 100 Unit/Ml 10 Ml Vial) 28 unit SUBCUT BID [facility] Last Admin: 09/10/22 08:03 Dose: 28 unit Documented By: KRISTIN Insulin Human Lispro (Insulin Lispro 100 Unit/Ml 3 Ml Vial) 0 unit SUBCUT QIDACHS [facility]; Protocol Last Admin: 09/10/22 13:16 Dose: 8 unit Documented By: KRISTIN Lisinopril (Lisinopril 10 Mg Tablet) 10 mg PO DAILY [facility]; Protocol Last Admin: 09/10/22 08:05 Dose: 10 mg Documented By: KRISTIN Magnesium Oxide (Magnesium Oxide 400 Mg Tablet) 400 mg PO DAILY [facility] Last Admin: 09/10/22 08:05 Dose: 400 mg Documented By: KRISTIN Melatonin (Melatonin 3 Mg Tablet) 3 mg PO BEDTIME PRN PRN Reason: Insomnia Multivitamins/Vitamin C (Multivitamin Tablet) 1 tab PO DAILY [facility] Last Admin: 09/10/22 08:04 Dose: 1 tab Documented By: KRISTIN Ondansetron HCl (Ondansetron Hcl 4 Mg/2 Ml Vial) 4 mg IVPUSH Q8H PRN PRN Reason: Nausea and Vomiting Last Admin: 09/09/22 18:31 Dose: 4 mg Documented By: JOI Oxycodone HCl (Oxycodone Hcl Immed Release 5 Mg Tablet) 5 mg PO Q6H PRN PRN Reason: Pain, Moderate (Pain Scale 4-6 Pharmacy Consult (Consult Rx Perform Med Rec) 1 each MISCELLANE ONCE PRN PRN Reason: Consult order Polyethylene Glycol (Polyethylene Glycol 3350 17 Gm Powd.Pack) 17 gm PO DAILY [facility] Sodium Chloride (0.9 % Sodium Chloride Flush 3 Ml Syringe) 3 ml IVFLUSH QSHIFT [facility] Last Admin: 09/10/22 08:04 Dose: 3 ml Documented By: KRISTIN Vitamin D (Cholecalciferol (Vitamin D3) 25 Mcg Tablet) 25 mcg PO DAILY [facility] Last Admin: 09/10/22 08:04 Dose: 25 mcg Documented By: KRISTIN Labs 09/10/22 08:37 09/10/22 08:37 Labs: Laboratory Results - last 24 hr 09/09/22 09/10/22 09/10/22 21:27 07:29 08:37 MCV 92.9 MCH 33.1 H MCHC 35.6 RDW 12.5 Plt Count 149 L MPV 10.9 Absolute Nucleated RBC 0.000 Nucleated RBC % (auto) 0.0 Anion Gap Estim Creat Clear Calc Estimated GFR POC Glucose 304 H 250 H Random Glucose Calcium Triglycerides Cholesterol LDL Cholesterol, Calc HDL Cholesterol 09/10/22 09/10/22 09/10/22 08:37 10:53 15:43 MCV MCH MCHC RDW Plt Count MPV Absolute Nucleated RBC Nucleated RBC % (auto) Anion Gap 14 Estim Creat Clear Calc 73.0 Estimated GFR > 60 POC Glucose 325 H 299 H Random Glucose 334 H Calcium 8.7 Triglycerides 118 Cholesterol 102 LDL Cholesterol, Calc 50 HDL Cholesterol 29 Microbiology Microbiology Results: Microbiology 09/09/22 00:00 Urine Culture - Preliminary Urine clean catch - Urine montes top Gram negative ramu Assessment and Plan Plan 62-year-old with past medical history of peripheral vascular disease status post bilateral BKA, peripheral neuropathy, type 2 diabetes mellitus, morbid obesity, mood disorder, hypertension, pulmonary embolism finished course of Eliquis 3 days ago presented to [facility] with bilateral shoulder pain of 1 week duration and 2-3 days of leaning towards the right side and this morning developed electrical shocks to anterior abdomen as well as right upper extremity and right arm weakness, associated with numbness and tingling was unable to transfer from wheelchair to bed required help with no fall to the ground no lightheadedness dizziness or syncope. Right upper extremity weakness pain and leaning to right-sided of 2-3 days duration patient admitted to telemetry, MRI brain and C-spine was obtained that showed severe spondylitic stenosis C3-C4 and C4-C5 with cord compression, patient evaluated by Neurology Dr. Villareal he recommended decompressive surgery and transfer to tertiary care center for neuro surgical intervention,, patient was given IV Solu Medrol 500 mg x 1, placed on oxycodone for pain control Diabetes on on insulin with uncontrolled blood sugars strongly recommend to follow diabetic diet continue Lantus, insulin sliding scale will hold metformin Peripheral vascular disease Continue Aspirin, and statin History of pulmonary embolism Recently finished treatment with Eliquis 3 days ago COPD Stable, continue home inhalers Morbid obesity complicated by obstructive sleep apnea recommended low-calorie diet and weight loss, continue CPAP at night Mood disorder Continue amitriptyline Peripheral neuropathy On Gabapentin Chronic constipation? placed on MiraLax and senna at night.? Time Spent With Patient Time: Total time managing care of this patient today ____ minutes. Quality Stroke Does the patient have a stroke diagnosis?: No VTE Prior VTE?: No VTE Risk Level:: Medical - moderate - high VTE Device Contraindication: Treatment Not Indicated VTE Drug Contraindication: N/A - Med Ordered
[2022-09-10] MEDS: oxyCODONE HCl Immed Release 5 MG TABLET PO (17:05)
[2022-09-10] MEDS: cefTRIAXone sodium 1 GM in 0.9 % Sodium Chloride 50 ML IV (17:13)
--- NOTE | 2022-09-10 17:28 | PM.DS ---
DS: Providers Provider Date of Service: 09/10/22 Date of admission: 09/09/22 17:05 Primary care physician: Joel Walsh MD Consults: 09/09/22 17:08 Consult to Neurology Routine Consulting Provider: [facility] Reason for consultation: Right arm weakness Has provider been notified: No 09/10/22 12:53 Consult to Neurology Routine Consulting Provider: [facility] Reason for consultation: rt arm weakness Has provider been notified: No DS: Diagnosis Discharge Diagnosis (1) Cervical spondylitic cord compression: Status: Acute DS: Summary Hospital Course Hospital Course: Date of Service: 09/09/22 Attending physician on admission: Jose Alejandro Oropeza Chief Complaint: Right arm weakness 62-year-old gentleman with past medical history of type 2 diabetes mellitus on insulin, peripheral vascular disease status post bilateral BKA, peripheral neuropathy, MGUS, morbid obesity, history of obstructive sleep apnea, mood disorder, hypertension, history of pulmonary embolism finish anticoagulation 3 days ago, lives alone his wheelchair bound since BKA feels it is difficult for him to be by himself without help, presented to [facility] Due to right arm weakness, as per patient he has bilateral shoulder pain of 1 week duration, in last 2-3 days he noticed that he has been leaning more to the right side, with right arm pain and weakness, today he was trying to transfer from wheelchair to bed but was unable to do so therefore managers from his building assisted him to be back to bed he denies associated lightheadedness dizziness, no headache, no visual symptoms, few hours later while in bed he called the ambulance since he felt electric shocks in right arm as well as at abdomen that happened a few times he also felt that the right arm is weak, with decreased hand wort extractor, in the emergency room patient noted to have symmetrical face, speech was intact, there was no right-sided pronator drift, but had decreased right hand wort extractor, his labs showed slightly elevated WBC of 11.2 urinalysis significantly positive with 4+ bacteria he does complain of urinary frequency, CTA head and neck showed no carotid artery narrowing or stenosis, but showed rt. vertebral artery stenosis, it showed cervical spondylosis with multilevel foraminal encroachment, moderate to severe central canal stenosis at C3-C4 level patient received 1 dose of IV ceftriaxone in the emergency room as well as aspirin and hydromorphone for pain and now being admitted to [facility] for continued monitoring and treatment for right upper extremity weakness. Hospital course 62-year-old with past medical history of peripheral vascular disease status post bilateral BKA, peripheral neuropathy, type 2 diabetes mellitus, morbid obesity, mood disorder, hypertension, pulmonary embolism finished course of Eliquis 3 days ago presented to [facility] with bilateral shoulder pain of 1 week duration and 2-3 days of leaning towards the right side and this morning developed electrical shocks to anterior abdomen as well as right upper extremity and right arm weakness, associated with numbness and tingling was unable to transfer from wheelchair to bed required help with no fall to the ground no lightheadedness dizziness or syncope. Right upper extremity weakness pain and leaning to right-sided of 2-3 days duration patient admitted to telemetry, MRI brain and C-spine was obtained that showed severe spondylitic stenosis C3-C4 and C4-C5 with cord compression, patient evaluated by Neurology Dr. Villareal he recommended decompressive surgery and transfer to tertiary care center for neuro surgical intervention,, patient was given IV Solu Medrol 500 mg x 1, placed on oxycodone for pain control Diabetes on on insulin with uncontrolled blood sugars strongly recommend to follow diabetic diet continue Lantus, insulin sliding scale will hold metformin Peripheral vascular disease Continue Aspirin, and statin History of pulmonary embolism Recently finished treatment with Eliquis 3 days ago COPD Stable, continue home inhalers Morbid obesity complicated by obstructive sleep apnea recommended low-calorie diet and weight loss, continue CPAP at night Mood disorder Continue amitriptyline Peripheral neuropathy On Gabapentin Chronic constipation placed on MiraLax and senna at night. With Time Spent with Patient Time attestation: Total time managing care of this patient today ____ minutes. Discharge coordination time: Greater than 30 minutes Quality: Safe Use of Opioids Does Pt have an Active Cancer Diagnosis on the Problem List?: No Quality: Stroke Does the patient have a stroke diagnosis?: No Physical Exam Vital Signs: Vital Signs: Last Vital Signs Temp 97.8 F 09/10/22 15:50 Pulse 88 09/10/22 15:50 Resp 18 09/10/22 15:50 BP 106/76 09/10/22 15:50 Pulse Ox 95 09/10/22 15:50 O2 Del Method 09/10/22 15:50 BMI result Body Mass Index 55.2 DS: Data Data Completed and Pending Completed studies during hospitalization [Text1]: Procedures Assistance with Respiratory Ventilation, Less than 24 Consecutive Hours, Continuous Positive Airway Pressure (05/25/22) Detachment at Left 1st Toe, Complete, Open Approach (12/23/20) Detachment at Left Lower Leg, Mid, Open Approach (12/23/20) Detachment at Right 1st Toe, Complete, Open Approach (09/05/20) Detachment at Right 1st Toe, High, Open Approach (09/05/20) Detachment at Right Foot, Partial 1st Ray, Open Approach (10/10/20) Detachment at Right Foot, Partial 2nd Ray, Open Approach (10/10/20) Detachment at Right Foot, Partial 3rd Ray, Open Approach (10/10/20) Detachment at Right Foot, Partial 4th Ray, Open Approach (10/10/20) Detachment at Right Foot, Partial 5th Ray, Open Approach (10/10/20) Detachment at Right Lower Leg, Mid, Open Approach (10/10/20) Dilation of Right Posterior Tibial Artery, Percutaneous Approach (09/05/20) Drainage of Left Lower Leg, Percutaneous Approach (12/13/21) Fluoroscopy of Aorta and Bilateral Lower Extremity Arteries (12/23/20) Insertion of Infusion Device into Superior Vena Cava, Percutaneous Approach (12/13/21) Transfusion of Nonautologous Platelets into Peripheral Vein, Percutaneous Approach (09/05/20) Transfusion of Nonautologous Red Blood Cells into Peripheral Vein, Percutaneous Approach (12/23/20) Ultrasonography of Superior Vena Cava, Guidance (12/13/21) Labs on day of discharge: Laboratory Results - last 24 hr 09/09/22 09/10/22 09/10/22 21:27 07:29 08:37 WBC 7.2 RBC 4.11 L Hgb 13.6 L Hct 38.2 L MCV 92.9 MCH 33.1 H MCHC 35.6 RDW 12.5 Plt Count 149 L MPV 10.9 Absolute Nucleated RBC 0.000 Nucleated RBC % (auto) 0.0 Sodium Potassium Chloride Carbon Dioxide Anion Gap BUN Creatinine Estim Creat Clear Calc Estimated GFR POC Glucose 304 H 250 H Random Glucose Calcium Triglycerides Cholesterol LDL Cholesterol, Calc HDL Cholesterol 09/10/22 09/10/22 09/10/22 08:37 10:53 15:43 WBC RBC Hgb Hct MCV MCH MCHC RDW Plt Count MPV Absolute Nucleated RBC Nucleated RBC % (auto) Sodium 134 L Potassium 4.3 Chloride 102 Carbon Dioxide 22 Anion Gap 14 BUN 18 H Creatinine 1.19 Estim Creat Clear Calc 73.0 Estimated GFR > 60 POC Glucose 325 H 299 H Random Glucose 334 H Calcium 8.7 Triglycerides 118 Cholesterol 102 LDL Cholesterol, Calc 50 HDL Cholesterol 29 Preliminary micro results at discharge 09/09/22 00:00 Urine Culture - Preliminary Urine clean catch - Urine montes top Gram negative ramu Discharge Plan Discharge Anticipated Discharge Date/Time: 09/10/22 15:36 Patient Disposition: Xfer Acute Care Hospital Discharge Diagnosis: Cervical cord compression UTI Referrals: Joel Walsh MD [Primary Care Provider] - 1 Week Discharge Medications: New ceftriaxone 1 gram Recon Soln 1 g IV Q24H Qty: 10 0RF oxycodone 5 mg Tablet 5 mg PO Q6H PRN (Reason: Pain, Moderate (Pain Scale 4-6) Qty: 20 0RF Rx Instructions: Partial Fill upon patient request. senna 8.6 mg capsule 8.6 mg PO BEDTIME Qty: 30 0RF Continued atorvastatin 40 mg tablet 40 mg PO BEDTIME Hold Instructions: Resume on 01/24/22. albuterol sulfate 90 mcg/actuation Hfa Aerosol Inhaler 2 puff INHALATION Q4-6H PRN (Reason: Shortness Of Breath) gabapentin 600 mg tablet 1,200 mg PO BID aspirin 81 mg tablet,delayed release (DR/EC) 81 mg PO DAILY Victoza 3-Chet 0.6 mg/0.1 mL (18 mg/3 mL) pen injector 1.8 mg subcut DAILY cholecalciferol (vitamin D3) 25 mcg (1,000 unit) tablet 25 mcg PO DAILY insulin degludec [Tresiba FlexTouch U-100] 100 unit/mL (3 mL) insulin pen 40 unit subcut BID magnesium oxide 400 mg (241.3 mg magnesium) tablet 400 mg PO DAILY insulin aspart U-100 [Novolog FlexPen U-100 Insulin] 100 unit/mL (3 mL) insulin pen 5 - 15 unit subcut TIDAC Rx Instructions: Per sliding scale amitriptyline 10 mg tablet 1 tab PO BEDTIME vitamin B complex [Vitamins B Complex] Capsule 1 cap PO DAILY (DME) lancets [FreeStyle Lancets] 28 gauge misc See Rx Instructions topical QID Qty: 100 Rx Instructions: As directed hydroxyzine HCl 10 mg tablet 10 mg PO BID PRN (Reason: Anxiety) lisinopril 10 mg tablet 10 mg PO DAILY (DME) FreeStyle Lite Strips Strip See Rx Instructions .ROUTE QID Qty: 10 Rx Instructions: As directed (DME) FreeStyle Pablo 2 Sensor Kit See Rx Instructions .ROUTE .MEDSUPPLY Qty: 1 Rx Instructions: As directed (DME) pen needle, diabetic [BD Ultra-Fine Short Pen Needle] 31 gauge x 5/16 needle See Rx Instructions subcut .MEDSUPPLY Qty: 1200 Rx Instructions: As directed (DME) FreeStyle Pablo 2 Hanson Misc See Rx Instructions .ROUTE .MEDSUPPLY Qty: 1 Rx Instructions: As directed Changed polyethylene glycol 3350 17 gram powder in packet 17 g PO DAILY Qty: 30 0RF Discontinued metformin 1,000 mg tablet 1,000 mg PO BID Discharge Orders: Discharge Order (Routine); Ordered 09/10/22 Ordered By: Sedrick Bonilla Diet: Diabetic diet Activity on Discharge: Bedrest Stand Alone Forms: Patient Portal Discharge page Care Plan Goals: For UTI continue IV ceftriaxone day 2, preliminary urine culture growing Gram-negative ramu Neuro surgical evaluation for severe spinal canal stenosis at C3 -C4 and C4-C5 with cord compression and cord signal abnormality Health Concerns: Diabetes mellitus continue home medications follow diabetic diet close blood sugar monitoring, continue all home medications as before Plan of Treatment: Transferred to tertiary care unit for neuro surgical intervention Assessment: As above
--- NOTE | 2022-09-10 19:33 | PC.NURSE ---
EMS to transfer pt to receiving facility for surgical intervention - day [facility] ICU. report given to Sin Arevalo RN. per request 18 to left AC left in and pt left with [place] catheter. pt A&O x 4, vitals stable. report given to EMS as well.
== END 2022-09-10 19:35 | disposition short-term general hospital (02) | DRG 552 ==
LOC: HO.ED 15:23 → HO.EDOVER 17:16 → HO.IMC 18:35
PROVIDERS: Admitting Provider Hospitalist; Emergency Provider Emergency Medicine; PCP Internal Medicine; Visit Provider Hospitalist
DX: M47.12 Other spondylosis with myelopathy, cervical region (principal); Z68.43 Body mass index [BMI] 50.0-59.9, adult; N39.0 Urinary tract infection, site not specified; G83.21 Monoplegia of upper limb affecting right dominant side; Z86.14 Personal history of Methicillin resistant Staphylococcus aureus infection; E78.5 Hyperlipidemia, unspecified; I10 Essential (primary) hypertension; E66.01 Morbid (severe) obesity due to excess calories; E11.51 Type 2 diabetes mellitus with diabetic peripheral angiopathy without gangrene; E11.42 Type 2 diabetes mellitus with diabetic polyneuropathy; F39 Unspecified mood [affective] disorder; J44.9 Chronic obstructive pulmonary disease, unspecified; G47.33 Obstructive sleep apnea (adult) (pediatric); Z20.822 Contact with and (suspected) exposure to COVID-19; Z86.711 Personal history of pulmonary embolism; Z87.891 Personal history of nicotine dependence; Z89.512 Acquired absence of left leg below knee; Z89.511 Acquired absence of right leg below knee; Z99.3 Dependence on wheelchair; Z88.8 Allergy status to other drugs, medicaments and biological substances; Z79.4 Long term (current) use of insulin; Z79.82 Long term (current) use of aspirin; Z79.899 Other long term (current) drug therapy
CPT/HCPCS: 36415; 70496; 70498; 70551; 71046; 72141; 80048; 80053; 80061; 81001; 82947; 84484; 85025; 85027; 85610; 87086; 87088; 87186; 87635; 93005; 94660; 97162; 97166; 99285; J0696; J1170; J2405; J2930; Q9967